=== PATIENT | female | born 1960 | race Caucasian/White ===

== ENCOUNTER 2023-09-28 12:07 | Outpatient (REF) | payer MEDICARE, SELFPAY ==
[2023-09-28 12:35] LABS: Influenza Virus A Antigen Negative; Influenza Virus B Antigen Negative; Internal Control Within Normal Limits; SARS-CoV-2 Ag NEGATIVE (NEGATIVE)
[2023-09-29 08:30] LABS: SARS-CoV-2 NAA NOT DETECTED (NOT DETECTE)
== END 2023-09-28 12:08 | disposition home or self-care (01) ==
LOC: LAB 12:07
PROVIDERS: PCP Nurse Practitioner Family; Visit Provider Nurse Practitioner Family
DX: J06.9 Acute upper respiratory infection, unspecified (principal)
CPT/HCPCS: 87635; 87804; 87811

== ENCOUNTER 2023-12-20 09:49 | Outpatient (OUT) | payer MEDICARE, SELFPAY ==
--- NOTE | 2023-12-20 09:52 | MM_ITS ---
Patient Name: ELSA CATALAN MR#: [id number] : 1960 Exam Date: 12/20/2023 Ordering Doctor: TAWANDA COOK CNP RADIOLOGY REPORT PROCEDURE: MM TOMOSYNTHESIS SCREENING BI COMPARISON: MG MAMM ALICIA DIAG W CAD, 04/30/2014. MG MAMM SCREEN 3D ALICIA CAD, 12/07/2022. INDICATIONS: screening Calculator Name NCI Breast Cancer Risk Assessment Tool 5 Year Breast Cancer Risk 1.90% Lifetime Breast Cancer Risk 7.90% Personal Breast Cancer No Personal Ovarian Cancer No Treatments None Family Cancers None LOCATION: [facility] BREAST COMPOSITION: Heterogeneously dense,which may obscure small masses. FINDINGS: DIAGNOSTIC CATEGORY 2--BENIGN FINDING. NO CHANGE FROM COMPARISON. Scattered benign-appearing nodules are present. Scattered benign-appearing calcifications are present. Scattered benign-appearing lymph nodes are present. RIGHT BREAST: No significant suspicious finding. LEFT BREAST: No significant suspicious finding. RECOMMENDATIONS: ROUTINE MAMMOGRAM AND CLINICAL EVALUATION IN 12 MONTHS. PLEASE NOTE: A NORMAL MAMMOGRAM DOES NOT EXCLUDE THE POSSIBILITY OF BREAST CANCER. A CLINICALLY SUSPICIOUS PALPABLE LUMP SHOULD BE BIOPSIED. Dictated by: Farshad Hayes MD on 12/20/2023 at 12:19 Approved by: Farshad Hayes MD on 12/20/2023 at 12:22
--- OUTSIDE RECORDS SUMMARY | 2023-12-20 10:12 | XMS_ITS | CCD ---
Author Organization [facility] Care Team Providers Care Metrology Technician Name Role Phone PEPE CARTER Unavailable Unavailable Ilo, Delroy Primary Care Provider Unavailabl e Sveta Silva Unavailable [phone] Pretty Fermin Primary Care Provider AUNDREA CLIFFORD Admitting Unavailable MENDOZAROSE Attending Unavailable ILO, DELROY Primary Care Unavailable MENDOZAROSE Admitting Unavailable ROSE MENDOZA Attending Unavailable ILO, DELROY Primary Care Unavailable ROSE MENDOZA Admitting Unavailable MENDOZAROSE Attending Unavailable HOY, PRETTY Primary Care Unavailable DEREK ZABALA Attending Unavailable HOY, PRETTY Primary Care Unavailable AYDE ALMANZAR Admitting Unavailabl e AYDE ALMANZAR Attending Unavailabl e ILO, DELROY Primary Care Unavailable [facility] Consulting AYDE Daniels Admitting Unavailabl e HOY, PRETTY Primary Care Unavailable LEATHA GOMEZ Attending Unavailable HOY, PRETTY Primary Care Unavailable [facility] Consulting ROCHELLE Schwartz Admitting Unavailable NUSRAT MARX Attending Unavailable AYDE ALMANZAR Admitting Unavailabl e AYDE ALMANZAR Attending Unavailabl e JENY, PRETTY Primary Care Unavailable AYDE ALMANZAR Admitting Unavailabl e CANDELARIO CURTIS Attending Unavailable JENY, PRETTY Primary Care Unavailable AYDE ALMANZAR Admitting Unavailabl e AYDE ALMANZAR Referring Unavailabl e JENY, PRETTY Primary Care Unavailable Ayde Almanzar Unavailable [phone] Pretty Fermin Primary Care Provider Ayde Almanzar Unavailable [phone] Christ, Leatha Asim Unavailable [phone] Pretty Fermin MD Primary Care Provider [phone] Pretty Fermin MD Primary Care Provider [phone] JOYCE, TAWANDA Consulting Unavailable JOYCE, TAWANDA Primary Care Unavailable JOYCE, TAWANDA Attending Unavailable JOYCE, TAWANDA Admitting Unavailable DR LATASHA HAYES V Consulting Unavailable JOYCE, TAWANDA Primary Care Unavailable JOYCE, TAWANDA Attending Unavailable JOYCE, TAWANDA Admitting Unavailable JOYCE, TAWANDA Consulting Unavailable DR LATASHA HAYES V Consulting Unavailable JOYCE, TAWANDA Primary Care Unavailable JOYCE, TAWANDA Attending Unavailable JOYCE, TAWANDA Admitting Unavailable JOYCE, TAWANDA Consulting Unavailable JOYCE, TAWANDA Consulting Unavailable JOYCE, TAWANDA Primary Care Unavailable JOYCE, TAWANDA Attending Unavailable JOYCE, TAWANDA Admitting Unavailable JOYCE, TAWANDA Consulting Unavailable JOYCE, TAWANDA Primary Care Unavailable JOYCE, TAWANDA Attending Unavailable JOYCE, TAWANDA Admitting Unavailable LATASHA HOWELL Unavailable DR STU SAMUEL Consulting Unavailable JOYCE, TAWANDA Primary Care Unavailable JOYCE, TAWANDA Attending Unavailable JOYCE, TAWANDA Admitting Unavailable JOYCE, TAWANDA Consulting Unavailable JOYCE, TAWANDA Consulting Unavailable JOYCE, TAWANDA Primary Care Unavailable JOYCE, TAWANDA Attending Unavailable JOYCE, TAWANDA Admitting Unavailable PA, AHMAD Consulting Unavailable JOYCE, TAWANDA Primary Care Unavailable PA, AHMAD Attending Unavailable PA, AHMAD Admitting Unavailable DR LATASHA HAYES V Consulting Unavailable JOYCE, TAWANDA Primary Care Unavailable SAMSA ., AIDAN Attending Unavailable SAMSA ., AIDAN Admitting Unavailable SAMSA ., AIDAN Consulting Unavailable Pretty Fermin MD Primary Care Provider [phone] PEPE CARTER Referring Unavailable JENY, PRETTY M Primary Care Unavailable HREO CARTERT Referring Unavailable HOY, PRETTY M Primary Care Unavailable HERO CARTERT Attending Unavailable HOY, PRETTY M Primary Care Unavailable HREO CARTERT Referring Unavailable HOY, PRETTY M Primary Care Unavailable HERO CARTERT Attending Unavailable JENY, PRETTY M Primary Care Unavailable Allergies Allergy Classification Reported Allergen(s) Allergy Type Date of Onset Reaction(s) Facility (15 sources) indomethacin; Translations: [INDOMETHACIN] Drug Allergy 3 [facility] (14 sources) penicillin; Translations: [PENICILLIN G] Drug Allergy 3 [facility] (14 sources) propoxyphene; Translations: [PROPOXYPHENE] Drug Allergy 3 [facility] (2 sources) OTHER; Translations: [OTHER] Propensity to adverse reactions (disorder) 3 [facility] (12 sources) Penicillins; Translations: [Penicillins] Propensity to adverse reactions to drug 3 Rash [facility] (10 sources) Lisinopril; Translations: [Unknown] Drug Allergy 9 Other (See Comments) [facility] (6 sources) Adhesive Tape-Silicones Propensity to adverse reactions to drug 9 [facility] (17 sources) Ciprofloxacin; Translations: [CIPROFLOXACIN] Drug Allergy 7 [facility] (12 sources) Anesthetics [Other] Propensity to adverse reactions 3 [facility] (1 source) Acetaminophen / oxyCODONE Drug Allergy 1 [facility] (1 source) Ciprofloxacin Drug Allergy 7 [facility] (1 source) Latex Drug allergy (disorder) 0 [facility] Medications Current Medications Medication Drug Class(es) Dates Sig (Normalized) Sig (Original) acetaminophen 325 mg oral tablet (3 sources) Start: 10-14-2019 End: 10-24-2019 take 2 tablets by mouth every six hours as needed acetaminophen (Tylenol) 325 MG tablet Take 2 (two) tablets (650 mg total) by mouth every 6 (six) hours as needed for pain . 30 tablet 0 10/14/2019 10/24/2019 Active Start: 10-12-2019 End: 10-14-2019 take 1 tablet by mouth every four hours as needed 650 mg, Oral, Every 4 hours PRN, mild pain, fever 100.4 F or greater, headaches, Starting 10/12/19 at 1609 Start: 09-04-2019 End: 09-05-2019 take 650 mg by mouth every four hours 650 mg, Oral, Every 4 hours while awake, First dose on Mon09/04/19 at 1800 acetaminophen 325 mg / oxyCODONE hydrochloride 5 mg oral tablet (4 sources) Opioid Agonist Start: 04-08-2020 End: 04-15-2020 take 1 tablet by mouth once as needed for pain, then take 2 tablets by mouth every four hours as needed for pain oxyCODONE-acetaminophen (PERCOCET) 5-325 mg per tablet Indications: Post-op pain Take 1 (one) tablet to 2 (two) tablets by mouth every 4 (four) hours as needed for pain . 40 tablet 0 04/08/2020 04/15/2020 Active Start: 09-04-2019 End: 09-11-2019 take 1 tablet by mouth once as needed for pain, then take 2 tablets by mouth every four hours as needed for pain oxyCODONE-acetaminophen (PERCOCET) 5-325 mg per tablet Indications: Post-operative pain Take 1 (one) tablet to 2 (two) tablets by mouth every 4 (four) hours as needed for pain . 50 tablet 0 09/04/2019 09/11/2019 Active Start: 02-27-2019 End: 03-06-2019 take 1 tablet by mouth once as needed for pain, then take 2 tablets by mouth every four hours as needed for pain oxyCODONE-acetaminophen (PERCOCET) 5-325 mg per tablet Indications: Elbow injury, unspecified laterality, sequela Take 1 (one) tablet to 2 (two) tablets by mouth every 4 (four) hours as needed for pain . 60 tablet 0 02/27/2019 03/06/2019 Active Start: 02-27-2019 End: 02-28-2019 take 1-2 tablets by mouth every four hours as needed 1-2 tablet, Oral, Every 4 hours PRN, moderate to severe pain, Starting 02/27/19 at 1238, For 3 days [] Initiate with 1 tablet oral every 4 hours prn moderate to severe pain. [] For unrelieved pain, may repeat one tablet oral dose within 60 minutes of initial dose. [] If pain is RELIEVED after repeat dose, change to two tablets of 5/325 mg oral every 4 hours prn moderate to severe pain. acetic acid 2.5 mg/ml irrigation solution (2 sources) Start: 10-08-2019 End: 10-29-2019 acetic acid 0.25 % irrigation Apply topically 3 (three) times a day for 21 days . 500 mL 11 10/08/2019 10/29/2019 Active 0.8 ml adalimumab 50 mg/ml prefilled syringe (7 sources) Tumor Necrosis Factor Miguel Start: 09-04-2019 inject 0.8 mL by subcutaneous injection once adalimumab (HUMIRA) 40 mg/0.8 mL syringe Indications: rheumatoid arthritis Inject 0.8 mL (40 mg total) under the skin every 14 (fourteen) days . Reasons: rheumatoid arthritis. 2 each 0 09/04/2019 Active End: 09-04-2019 adalimumab (HUMIRA) 40 mg/0. 8 mL syringe Indications: rheumatoid arthritis Inject 40 mg under the skin every 14 (fourteen) days Reasons: rheumatoid arthritis. 0 09/04/2019 Discontinued (Reorder) cholecalciferol, vitamin D3, (VITAMIN D3 ORAL) (11 sources) take 1 capsule by mouth once daily in the morning cholecalciferol, vitamin D3, (VITAMIN D3 ORAL) Indications: Supp Take 1 capsule by mouth every morning Reasons: Supp. 0 Active cholecalciferol, vitamin D3, (VITAMIN D3 ORAL) Indications: Supp Take by mouth every morning Reasons: Supp. 0 Active ondansetron 4 mg disintegrating oral tablet (9 sources) Serotonin-3 Receptor Antagonist Start: 04-08-2020 End: 04-15-2020 take 1 tablet by mouth every six hours as needed ondansetron (Zofran ODT) 4 MG disintegrating tablet Dissolve 1 (one) tablet (4 mg total) on top of tongue every 6 (six) hours as needed for nausea . 15 tablet 0 04/08/2020 Active Start: 04-08-2020 End: 04-08-2020 4 mg, Intravenous, Every 15 min PRN, nausea, vomiting, Starting Mon04/08/20 at 1414, For 2 doses, PACU (only) Do not give more than 2 doses. Administer first as needed for nausea/vomiting, or as directed by anesthesia Start: 10-12-2019 End: 10-14-2019 ondansetron (ZOFRAN) injecti on 4 mg Start: 09-04-2019 End: 09-04-2019 4 mg, Intravenous, Every 15 min PRN, nausea, vomiting, Starting Mon09/04/19 at 1400, For 2 doses, PACU (only) Do not give more than 2 doses. Administer first as needed for nausea/vomiting, or as directed by anesthesia raNITIdine 75 mg oral tablet (1 source) Histamine-2 Receptor Antagonist ranitidine (ZANTAC) 75 MG tablet Indications: GERD Take 75 mg by mouth as needed for heartburn Reasons: GERD. 0 Active sulfamethoxazole 800 mg / trimethoprim 160 mg oral tablet (2 sources) Dihydrofolate Reductase Inhibitor Antibacterial, Sulfonamide Antimicrobial Start: 04-08-20 End: 04-18-20 20 take 1 tablet by mouth twice daily sulfamethoxazole-tr imethoprim (BACTRIM DS,SEPTRA DS) 800-160 mg per tablet Take 1 (one) tablet by mouth 2 (two) times a day for 10 days . 20 tablet 0 04/08/2020 04/18/2020 Active Start: 10-14-2019 End: 10-21-2019 take 1 tablet by mouth twice daily sulfamethoxazole-trimethoprim (BACTRIM DS,SEPTRA DS) 800-160 mg per tablet Take 1 (one) tablet by mouth 2 (two) times a day for 7 days . 14 tablet 0 10/14/2019 10/21/2019 Active Completed/Discontinued Medications Medication Drug Class(es) Dates Sig (Normalized) Sig (Original) [id number] 200 actuat albuterol 0.09 mg/actuat metered dose inhaler (14 sources) beta2-Adrenergic Agonist Start: 07-02-2020 take 2 puff(s) by mouth every four hours VENTOLIN HFA 90 mcg/actuation inhaler inhale 2 puffs by mouth and INTO THE LUNGS every 4 hours if needed 0 07/02/2020 Active Start: 09-04-2019 End: 09-05-2019 albuterol inhaler 2 puff Start: 09-04-2019 End: 09-04-2019 take 2 puff(s) by inhalation once 2 puff, Inhalation, Once (RT), 09/04/19 at 1000, For 1 dose, Pre-Procedure SPACER REQUIRED FOR ADMINISTRATION Comment on above: inhale 2 puffs by mo uth and INTO THE LUNGS every 4 hours if needed aluminum hydroxide 40 mg/ml / magnesium hydroxide 40 mg/ml / simethicone 4 mg/ml oral suspension (1 source) Start: 9 End: 9 take 30 mL by mouth every four hours as needed 30 mL, Oral, Every 4 hours PRN, indigestion, Starting Mon02/27/19 at 1238 aspirin 81 mg delayed release oral tablet (7 sources) Platelet Aggregation Inhibitor, Nonsteroidal Anti-inflammatory Drug End: 9 take 1 tablet by mouth once daily in the morning aspirin 81 MG EC tablet Indications: myocardial infarction prevention Take 81 mg by mouth every morning Reasons: treatment to prevent a heart attack. 0 08/23/2019 Discontinued (Therapy completed) aspirin/acetaminophe n/caffeine (EXCEDRIN EXTRA STRENGTH ORAL) (3 sources) End: 9 aspirin/acetaminophe n/caffeine (EXCEDRIN EXTRA STRENGTH ORAL) Indications: Pain Take by mouth as needed Reasons: Pain. 0 02/28/2019 Discontinued (Stop Taking at Discharge) aspirin/acetamin ophen/caffeine (EXCEDRIN EXTRA STRENGTH ORAL) Indications: Pain Take by mouth as needed Reasons: Pain. 0 Active bisacodyl 10 mg rectal suppository (2 sources) Stimulant Laxative Start: 09-04-2019 End: 09-05-2019 take 10 mg rectal route once daily as needed for constipation 10 mg, Rectal, Daily PRN, constipation, Starting Mon09/04/19 at 1613 If no bowel movement by POD #2. Start: 02-27-2019 End: 02-28-2019 take 10 mg rectal route once daily as needed for constipation 10 mg, Rectal, Daily PRN, constipation, Starting Mon02/27/19 at 1238 If no bowel movement by POD #2. bupivacaine liposome (PF) (EXPAREL) 133 mg/10 mL + 0.5% bupivacaine (PF) (MARCAINE) 10 mL (20 mL TOTAL) (2 sources) Start: 09-04-2019 End: 09-04-2019 bupivacaine liposome (PF) (EXPAREL) 133 mg/10 mL + 0.5% bupivacaine (PF) (MARCAINE) 10 mL (20 mL TOTAL) Start: 02-27-2019 End: 02-27-2019 bupivacaine liposome (PF) (E XPAREL) 133 mg/10 mL + 0.5% bupivacaine (PF) (MARCAINE) 10 mL (20 mL TOTAL) calcium chloride 0.0014 meq/ml / potassium chloride 0.004 meq/ml / sodium chloride 0.103 meq/ml / sodium lactate 0.028 meq/ml injectable solution (7 sources) Start: 04-08-2020 End: 04-08-2020 take 75 mL intravenous route every hour 75 mL/hr, Intravenous, Continuous, Starting Mon04/08/20 at 1500, PACU (only) Start: 04-08-2020 End: 04-08-2020 lactated Ringers infusion Start: 10-13-2019 End: 10-14-2019 take 50 mL intravenous route every hour 50 mL/hr, Intravenous, Continuous, Starting Mon10/13/19 at 0945, PACU (only) Start: 09-04-2019 End: 09-05-2019 lactated Ringers infusion Start: 02-27-2019 End: 02-28-2019 take 100 mL intravenous route every hour 100 mL/hr, Intravenous, Continuous, Starting Mon02/27/19 at 1215, PACU (only) Start: 02-27-2019 End: 02-27-2019 lactated Ringers infusion ceFAZolin 1000 mg injection (1 source) Cephalosporin Antibacterial Start: 10-12-2019 End: 10-12-2019 ceFAZolin (ANCEF) IVPB 1 g (premix) cholecalciferol 0.125 mg oral tablet (12 sources) Vitamin D Start: 07-02-2013 take 1 tablet by mouth once daily Cholecalciferol, Vitamin D3, 5,000 unit Tab Take 1 tablet by mouth once daily. 0 07/02/2013 Active Comment on above: Take 1 tablet by meera once daily. clindamycin 300 mg oral capsule (6 sources) Lincosamide Antibacterial Start: 04-08-2020 End: 04-08-2020 take 1 capsule by mouth three times daily clindamycin (CLEOCIN) 300 MG capsule Take 1 (one) capsule (300 mg total) by mouth 3 (three) times a day for 3 days . 9 capsule 0 04/08/2020 04/08/2020 Discontinued (Stop Taking at Discharge) Start: 10-13-2019 End: 10-13-2019 take 900 mg intravenous route every eight hours clindamycin (CLEOCIN) IVPB 900 mg (premix) Start: 09-04-2019 End: 09-05-2019 take 600 mg intravenous route every eight hours 600 mg, Intravenous, at 100 mL/hr, Every 8 hours, First dose on Mon09/04/19 at 1930, For 2 doses Starting 8 hours after pre-procedure dose x 2 doses. Indication (POST PROCEDURE): Ortho Start: 09-04-2019 End: 09-07-2019 take 1 capsule by mouth three times daily clindamycin (CLEOCIN) 300 MG capsule Take 1 (one) capsule (300 mg total) by mouth 3 (three) times a day for 3 days . 9 capsule 0 09/04/2019 09/07/2019 Start: 02-27-2019 End: 02-28-2019 take 900 mg intravenous route every eight hours 900 mg, Intravenous, at 100 mL/hr, Every 8 hours, First dose on Mon02/27/19 at 1700, For 2 doses Starting 8 hours after pre-procedure dose x 2 doses. Indication (POST PROCEDURE): Ortho Start: 02-27-2019 End: 03-02-2019 take 1 capsule by mouth three times daily clindamycin (CLEOCIN) 300 MG capsule Take 1 (one) capsule (300 mg total) by mouth 3 (three) times a day for 3 days . 9 capsule 0 02/27/2019 03/02/2019 Active cloNIDine hydrochloride 0.1 mg oral tablet (12 sources) Central alpha-2 Adrenergic Agonist Start: 11-19-2020 take 1 tablet by mouth twice daily cloNIDine HCl (CATAPRES) 0.1 mg tablet Take 0.1 mg by mouth twice daily. 0 11/19/2020 Active Comment on above: Take 0.1 mg by mouth twice daily. docusate sodium 100 mg oral capsule (14 sources) Start: 03-17-2021 take 1 capsule by mouth every twelve hours as needed docusate sodium (COLACE) 100 mg capsule Take 1 capsule by mouth twice daily as needed for constipation. 20 capsule 0 03/17/2021 Active Start: 04-08-2020 End: 04-18-2020 take 1 capsule by mouth twice daily docusate sodium (COLACE) 100 MG capsule Take 1 (one) capsule (100 mg total) by mouth 2 (two) times a day Purchase over the counter Do not take if you start to have diarrhea for 10 days . 20 capsule 0 04/08/2020 04/18/2020 Active Start: 10-14-2019 End: 11-03-2019 take 1 capsule by mouth twice daily docusate sodium (COLACE) 100 MG capsule Take 1 (one) capsule (100 mg total) by mouth 2 (two) times a day May be purchased over the counter Take until finished taking narcotics for 20 days . 10 capsule 0 10/14/2019 11/03/2019 Active Comment on above: Take 1 capsule by mo [facility] twice daily as needed for constipation. docusate sodium 50 mg / sennosides, detention 8.6 mg oral tablet (3 sources) Start: 0 End: 0 take 1 tablet by mouth twice daily 1 tablet, Oral, 2 times daily, First dose on 10/12/19 at 2100 NOT for abdominal surgery patients. H old for loose stools. Do Not Crush or Chew if administering orally due to bitter taste. May be crushed if given via tube. Start: 09-04-2019 End: 09-05-2019 take 1 tablet by mouth twice daily 2 tablet, Oral, 2 times daily, First dos e on 09/04/19 at 2100 NOT for abdominal surgery patients. Hold for loose stools. Do Not Crush or Chew if administering orally due to bitter taste. May be crushed if given via tube. Start: 02-27-2019 End: 02-28-2019 take 1 tablet by mouth twice daily 1 tablet, Oral, 2 times daily, First dos e on 02/27/19 at 2100 NOT for abdominal surgery patients. Hold for loose stools. Do Not Crush or Chew if administering orally due to bitter taste. May be crushed if given via tube. empagliflozin 25 mg oral tablet (18 sources) Sodium-Glucose Cotransporter 2 Inhibitor Start: 07-02-2020 take 1 tablet by mouth once daily JARDIANCE 25 mg tablet Take 25 mg by mouth once daily. 0 07/02/2020 Active [facility] in [facility], then take 2 tablets by mouth empagliflozin (Jardiance) 10 mg Tab Indications: type 2 diabetes mellitus Take 10 mg by mouth every morning Reasons: type 2 diabetes mellitus. 0 Active Comment on above: Take 25 mg by mouth once daily. 0.4 ml enoxaparin sodium 100 mg/ml prefilled syringe (1 source) Low Molecular Weight Heparin Start: 10-14-2019 End: 10-14-2019 enoxaparin (LOVENOX) syringe 40 mg 20 ml fentaNYL 0.05 mg/ml injection (4 sources) Opioid Agonist Start: 04-08-2020 End: 04-08-2020 25 mcg, Intravenous, Every 5 min PRN, Pain, Starting Mon04/08/20 at 1414, For 4 doses, PACU (only) [] Do not give more than 100 mcg while in PACU. Start: 04-08-2020 End: 04-08-2020 100 mcg, Intravenous, Once, Mon04/08/20 at 1015, For 1 dose, Pre-Procedure Pre-procedure for nerve block. May repeat in 5 minutes x 1 if sedation inadequate to perform block. Start: 09-04-2019 End: 09-04-2019 100 mcg, Intravenous, Once, 09/04/19 at 1000, For 1 dose, Pre-Procedure Pre-procedure for nerve block. May repeat in 5 minutes x 1 if sedation inadequate to perform block. Start: 02-27-2019 End: 02-27-2019 100 mcg, Intravenous, Once, Mon02/27/19 at 0645, For 1 dose, Pre-Procedure Pre-procedure for nerve block. May repeat in 5 minutes x 1 if sedation inadequate to perform block. FLUoxetine 20 mg oral capsule (12 sources) Serotonin Reuptake Inhibitor Start: 01-16-2020 take 1 capsule by mouth once daily FLUoxetine (PROZAC) 20 mg capsule Indications: Anxiety Take 1 capsule by mouth once daily. 1 capsule 1 01/16/2020 Active Comment on above: Take 1 capsule by [facility] once daily. folic acid 1 mg oral tablet (20 sources) Start: 07-26-2021 End: 08-11-2022 take 2 tablets by mouth once daily folic acid 1 mg tablet Indications: Rheumatoid arthritis of multiple sites without organ or system involvement with positive rheumatoid factor (HCC) Take 2 tablets by mouth once daily. 180 tablet 3 08/11/2022 Active Start: 10-13-2019 End: 10-14-2019 take 2 mg by mouth once daily in the morning 2 mg, Oral, Every morning, First dose on 10/13/19 at 0900 Start: 01-14-2019 take 2 tablets by mo ut once daily in the morning, then take 1 tablet by mouth folic acid (FOLVITE) 1 MG tablet Indications: Supp Take 2 mg by mouth every morning Reasons: Supp. 0 01/14/2019 Active Start: 01-14-2019 End: 02-28-2019 take 1 tablet by mouth once daily in the morning folic acid (FOLVITE) 1 MG tablet Indications: Supp Take 1 mg by mouth every morning Reasons: Supp. 0 01/14/2019 Active Comment on above: Take 2 tablets by mo ut once daily. gabapentin 300 mg oral capsule (20 sources) Anti-epileptic Agent Start: 12-22-2021 End: 04-10-2023 take 3 capsules by mouth once daily gabapentin (NEURONTIN) 300 mg capsule Indications: Fibromyalgia , Postherpetic neuralgia , Bilateral carpal tunnel syndrome TAKE 10 CAPSULES BY MOUTH DIVIDED THROUGHOUT THE DAY 270 capsule 3 04/18/2022 Active Start: 10-12-2019 End: 10-14-2019 take 900 mg by mouth three times daily 900 mg, Oral, 3 times daily, First dose on 10/12/19 at 1700 Start: 01-21-2019 take 3 capsules by [facility] three times daily gabapentin (NEURONTIN) 300 MG capsule Indications: Pain Take 900 mg by mouth 3 (three) times a day Reasons: Pain. 0 01/21/2019 Active Start: 01-21-2019 End: 09-05-2019 take 300 mg by mouth three times daily 300 mg, Oral, 3 times daily, First dose on 09/04/19 at 1630 Comment on above: Take 10caps divided throughout the day, take by mouth TAKE 10 CAPSULES BY MOUTH DIVIDED THROUGHOUT THE DAY 1 ml hydrALAZINE hydrochloride 20 mg/ml injection (2 sources) Arteriolar Vasodilator Start: 04-08-2020 End: 04-08-2020 hydrALAZINE (APRESOLINE) injection 20 mg Start: 09-04-2019 End: 09-05-2019 take 5 mg intravenous route every four hours as needed 5 mg, Intravenous, Every 4 hours PRN, SBP>170 or DBP>100, Starting Mon09/04/19 at 1637 0.5 ml HYDROmorphone hydrochloride 1 mg/ml prefilled syringe (3 sources) Opioid Agonist Start: 04-08-2020 End: 04-08-2020 0.5 mg, Intravenous, Every 5 min PRN, Pain, Starting Mon04/08/20 at 1414, For 6 doses, PACU (only) [] Give if fentanyl not effective or not ordered. [] Do not give more than 3 mg total. Start: 10-12-2019 End: 10-12-2019 HYDROmorphone (DILAUDID) inj ection 1 mg Start: 09-04-2019 End: 09-05-2019 take 0.25-0.5 mg intravenous route every three hours as needed 0.25-0.5 mg, Intravenous, Every 3 hours PRN (may repeat), moderate to severe pain, Starting Mon09/04/19 at 1613 [] Initiate with 0.25 mg IV every 3 hours prn moderate to severe pain. [] For unrelieved pain, may repeat 0.25 mg IV dose within 30 minutes of initial dose. [] If pain is RELIEVED after repeat dose, change to 0.5 mg IV every 3 hours prn moderate to severe pain. [] If pain is UNrelieved after repeat dose, or patient requires dose reduction, call physician. [] If multiple routes are ordered for pain meds, it is recommended that oral be the first choice, IV the second choice, rectal the third choice, and IM the fourth choice. HYDROmorphone (DILAUDID) 0.5 mg/mL injection 0.25-0.5 mg (1 source) Start: 02-27-2019 End: 02-28-2019 take 0.25-0.5 mg intravenous route every three hours as needed 0.25-0.5 mg, Intravenous, Every 3 hours PRN (may repeat), moderate to severe pain, Starting Mon02/27/19 at 1238 [] Initiate with 0.25 mg IV every 3 hours prn moderate to severe pain. [] For unrelieved pain, may repeat 0.25 mg IV dose within 30 minutes of initial dose. [] If pain is RELIEVED after repeat dose, change to 0.5 mg IV every 3 hours prn moderate to severe pain. [] If pain is UNrelieved after repeat dose, or patient requires dose reduction, call physician. [] May use IV for breakthrough pain or if unable to tolerate oral route. insulin glargine 100 unt/ml injectable solution (20 sources) Insulin Analog Start: 10-13-2019 End: 10-14-2019 50 Units, Subcutaneous, Nightly, First dose on Mon10/13/19 at 2100 Do not hold basal insulin without notifying physician. If patient NPO and BG < 100 before procedure, administer half of the glargine insulin (Lantus) dose; if BG is >100 administer full dose. Do not mix with other insulins in a syringe. Do NOT hold basal insulin without notifying physician Start: 10-12-2019 insulin glargi ne (LANTUS) injection 25 Units Start: 09-04-2019 End: 09-05-2019 insulin glargine (LANTUS) injection 20 Units Start: 02-27-2019 End: 02-28-2019 inject 50 [IU] by subcutaneous injection once daily 50 Units, Subcutaneous, Nightly, First dose on Mon02/27/19 at 2100 Nursing call if patient nauseated not eating regular diet, will need dose reduced Do not mix with other insulins in a syringe. Do NOT hold basal insulin without notifying physician Start: 01-21-2019 insulin glargi ne (LANTUS SOLOSTAR, BASAGLAR KWIKPEN) 100 unit/mL (3 mL) Inject 50 Units subcutaneously. 0 01/21/2019 Active Start: 01-21-2019 LANTUS SOLOSTA R U-100 INSULIN 100 unit/mL (3 mL) InPn Indications: type 2 diabetes mellitus Inject 50 Units under the skin nightly Reasons: type 2 diabetes mellitus. 0 01/21/2019 Active Start: 01-21-2019 LANTUS SOLOSTA R U-100 INSULIN 100 unit/mL (3 mL) InPn Indications: type 2 diabetes mellitus 50 Units nightly Reasons: type 2 diabetes mellitus. 0 01/21/2019 Active Start: 01-21-2019 insulin glargi ne (LANTUS SOLOSTAR, BASAGLAR KWIKPEN) 100 unit/mL (3 mL) Inject 50 Units subcutaneously. 0 01/21/2019 Active Comment on above: Inject 50 Units subc utaneously. insulin lispro 100 unt/ml injectable solution (7 sources) Insulin Analog Start: 04-08-2020 End: 04-08-2020 0-30 Units, Subcutaneous, Every 4 hours, First dose on Mon04/08/20 at 1500, PACU (only) Notify Anesthesiologist if BG is GREATER than 180 mg / dL. Prandial Insulin Dosing Method: NO Prandial Dose - Corrective Scale ONLY Corrective Insulin Regimen (select desired scale to cover BG result): Normal Sensitivity Scale For Downtime Calculator, use: Insulin SC MEALtime PREprandial Start: 10-12-2019 End: 10-14-2019 inject 1 dose by subcutaneous injection once daily 0-15 Units, Subcutaneous, At bedtime, First dose on 10/12/19 at 2100 For Nightly Insulin Dose Coverage, use: CORRECTIVE (Only) for BG greater than 300 Nightly CORRECTIVE Dose Method: Specific Corrective Dose Nightly Specific CORRECTIVE dose (units of insulin): 2 For Downtime Calculator, use: Insulin SC NIGHTtime Start: 10-12-2019 End: 10-14-2019 inject 1 dose by subcutaneous injection three times daily before mealtime 0-30 Units, Subcutaneous, 3 times daily before meals, First dose on Mon10/12/19 at 1700 Dose should be given 10-15 minutes before a meal. If poor oral intake, nausea or blood glucose value < 80 before meal, give of the dose (rounded up to nearest unit) immediately after meal completed. If patient skipping meal, hold base prandial dose and continue to use corrective insulin as ordered. Once diet resumed, total base prandial + corrective doses may be given. Prandial Insulin Dosing Method: Carb Counting Ratio 1 unit of insulin per: specified grams of carbohydrates: 25 Corrective Insulin Regimen (select desired scale to cover BG result): Normal Sensitivity Scale For Downtime Calculator, use: Insulin SC MEALtime PREprandial Start: 09-04-2019 End: 09-05-2019 inject 1 dose by subcutaneous injection once daily 0-15 Units, Subcutaneous, At bedtime, First dose on Mon09/04/19 at 2100 For Nightly Insulin Dose Coverage, use: CORRECTIVE (Only) for BG greater than 300 Nightly CORRECTIVE Dose Method: Specific Corrective Dose Nightly Specific CORRECTIVE dose (units of insulin): 2 For Downtime Calculator, use: Insulin SC NIGHTtime Start: 09-04-2019 End: 09-05-2019 inject 1 dose by subcutaneous injection three times daily before mealtime 0-30 Units, Subcutaneous, 3 times daily before meals, First dose on Mon09/04/19 at 1700 Dose should be given 10-15 minutes before a meal. If poor oral intake, nausea or blood glucose value < 80 before meal, give of the dose (rounded up to nearest unit) immediately after meal completed. If patient skipping meal, hold base prandial dose and continue to use corrective insulin as ordered. Once diet resumed, total base prandial + corrective doses may be given. Prandial Insulin Dosing Method: NO Prandial Dose - Corrective Scale ONLY Corrective Insulin Regimen (select desired scale to cover BG result): Conservative Scale For Downtime Calculator, use: Insulin SC MEALtime PREprandial Start: 02-27-2019 End: 02-28-2019 insulin lispro (HumaLOG) inj ection 0-5 Units insulin aspart, human 100 unt/ml injectable solution (18 sources) Insulin Analog Start: 01-21-2019 insulin aspart U-100 (NOVOLOG) 100 unit/mL Inject subcutaneously. 0 01/21/2019 Active insulin aspart U -100 (NovoLOG) 100 unit/mL injection Indications: type 2 diabetes mellitus , Sliding scale Inject under the skin 3 (three) times a day before meals Reasons: type 2 diabetes mellitus, Sliding scale. 0 Active Comment on above: Inject subcutaneousl y. irbesartan 150 mg oral tablet (18 sources) Angiotensin 2 Receptor Miguel Start: 06-10-20 take 1 tablet by mouth once daily irbesartan (AVAPRO) 150 mg tablet Take 150 mg by mouth once daily. 0 06/10/2020 Active Comment on above: Take 150 mg by mouth once daily. 4 ml labetalol hydrochloride 5 mg/ml cartridge (4 sources) beta-Adrenergic Miguel Start: 04-08-20 End: 04-08-20 20 5 mg, Intravenous, Every 5 min PRN, SBP greater than 160 or DBP greater than 90, Starting Mon04/08/20 at 1414, For 4 doses, PACU (only) [] Do not give more than 20 mg total. [] Hold for HR less than 50. Start: 10-13-2019 End: 10-13-2019 5 mg, Intravenous, Every 5 m in PRN, SBP greater than 160 or DBP greater than 90, Starting 10/13/19 at 1002, For 4 doses, PACU (only) [] Do not give more than 20 mg total. [] Hold for HR less than 50. Start: 09-04-2019 End: 09-04-2019 5 mg, Intravenous, Every 5 m in PRN, SBP greater than 160 or DBP greater than 90, Starting 09/04/19 at 1400, For 4 doses, PACU (only) [] Do not give more than 20 mg total. [] Hold for HR less than 50. Start: 02-27-2019 End: 02-28-2019 take 10 mg intravenous route every six hours as needed labetalol (NORMODYNE) injection 10 mg leflunomide 20 mg oral tablet (20 sources) Antirheumatic Agent Start: 02-14-2023 take 1 tablet by mouth once daily at mealtime leflunomide (ARAVA) 20 mg tablet Indications: Rheumatoid arthritis of multiple sites without organ or system involvement with positive rheumatoid factor (HCC) Take 1tab daily by mouth with food. Hold in on antibiotics or ill. 90 tablet 3 02/14/2023 Active Start: 07-26-2021 End: 08-11-2022 take 1 tablet by mouth once daily at mealtime leflunomide (ARAVA) 20 mg tablet Indications: Rheumatoid arthritis of multiple sites without organ or system involvement with positive rheumatoid factor (HCC) Take 1tab daily by mouth with food. Hold in on antibiotics or ill. 90 tablet 3 08/11/2022 Active Start: 10-13-2019 End: 10-14-2019 take 20 mg by mouth once daily in the morning 20 mg, Oral, Every morning, First dose on 10/13/19 at 0900 Hazardous medication. Use safe handling precautions. Do not crush or chew. Start: 09-04-2019 End: 09-04-2019 take 1 tablet by mouth once daily in the morning leflunomide (ARAVA) 20 MG tablet Indications: rheumatoid arthritis Take 1 (one) tablet (20 mg total) by mouth every morning . Reasons: rheumatoid arthritis. 0 09/04/2019 Active Start: 02-28-2019 End: 02-28-2019 take 20 mg by mouth once daily in the morning 20 mg, Oral, Every morning, First dose on [place] 02/28/19 at 0900 Hazardous medication. Use safe handling precautions. Do not crush or chew. take 1 tablet by meera th once daily in the morning leflunomide (ARAVA) 20 MG tablet Indications: rheumatoid arthritis Take 20 mg by mouth every morning Reasons: rheumatoid arthritis. 0 Active Comment on above: Take 1tab daily by m outh with food. Hold in on antibiotics or ill. levothyroxine sodium 0.05 mg oral tablet (20 sources) l-Thyroxine Start: 07-02-20 take 1 tablet by mouth once daily levothyroxine (SYNTHROID) 50 mcg tablet take 1 tablet by mouth once daily ALONG WITH 200 MG TABLET FOR TOTAL OF 250 MG 0 07/02/2020 Active Start: 10-13-2019 End: 10-14-2019 take 200 ug by mouth once daily in the morning 200 mcg, Oral, Every morning, First dose on [place] 10/13/19 at 0900 For patients on continuous tube feed: Hold TF from 1 hr before until 1 hr after each dose. TF rate may need adjustment to meet caloric needs. Start: 09-05-2019 End: 09-05-2019 take 200 ug by mouth once daily in the morning 200 mcg, Oral, Every morning, First dose on [place] 09/05/19 at 0900 For patients on continuous tube feed: Hold TF from 1 hr before until 1 hr after each dose. TF rate may need adjustment to meet caloric needs. Start: 02-28-2019 End: 02-28-2019 take 175 ug by mouth once daily in the morning 175 mcg, Oral, Every morning, First dose on [place] 02/28/19 at 0900 For patients on continuous tube feed: Hold TF from 1 hr before until 1 hr after each dose. TF rate may need adjustment to meet caloric needs. Start: 01-21-2019 SYNTHROID 175 mcg tablet Indications: hypothyroidism Take 200 mcg by mouth every morning Reasons: a condition with low thyroid hormone levels. 0 01/21/2019 Active Start: 01-21-2019 take 1 tablet by meera th once daily in the morning SYNTHROID 175 mcg tablet Indications: hypothyroidism Take 175 mcg by mouth every morning Reasons: hypothyroidism. 0 01/21/2019 Active Start: 01-21-2019 take 1 tablet by meera th once daily levothyroxine (SYNTHROID) 200 mcg tablet Take 200 mcg by mouth once daily. 0 07/02/2020 Active Comment on above: take 1 tablet by meera th once daily ALONG WITH 200 MG TABLET FOR TOTAL OF 250 MG Take 200 mcg by mout h once daily. lidocaine 0.05 mg/mg medicated patch (20 sources) Antiarrhythmic, Amide Local Anesthetic Start: apply 1 dose transdermal route once daily lidocaine (LIDODERM) 5 % apply 1 patch to the aRM once daily IN THE AFTERNOON 0 11/19/2020 Active Start: 04-08-2020 End: 04-08-2020 1 mL, Other, Once, Mon 0 at 1015, For 1 dose, Pre- Procedure for anesthesia block administration Start: 10-08-2019 lidocaine (LMX ) 4 % cream 1 application Start: 09-04-2019 End: 09-04-2019 5 mL, Other, Once, Mon at 1000, For 1 dose, Pre- Procedure for anesthesia block administration Start: 04-23-2019 lidocaine (XYL OCAINE) 4 % (40 mg/mL) external solution Start: 02-27-2019 End: 02-27-2019 5 mL, Other, Once, Mon at 0645, For 1 dose, Pre- Procedure [] for anesthesia block administration Comment on above: apply 1 patch to the aRM once daily IN THE AFTERNOON lisinopril 20 mg oral tablet (8 sources) Angiotensin Converting Enzyme Inhibitor Start: 01-22-20 End: 08-23-20 take 1 tablet by mouth once daily in the morning lisinopril (PRINIVIL,ZESTRIL) 20 MG tablet Indications: hypertension Take 20 mg by mouth every morning Reasons: high blood pressure. 0 01/21/2019 08/23/2019 Discontinued (Therapy completed) magnesium hydroxide 80 mg/ml oral suspension (2 sources) Start: 09-04-20 End: 09-05-20 take 2400 mg by mouth once daily as needed for constipation 2,400 mg (30 mL), Oral, Daily PRN, constipation, contipation, Starting Mon09/04/19 at 1613 Start: 02-27-2019 End: 02-28-2019 take 2400 mg by mouth once daily as needed for constipation 2,400 mg (30 mL), Oral, Daily PRN, constipation, contipation, Starting Mon02/27/19 at 1238 Meperidine (1 source) Opioid Agonist Start: 04-08-2020 End: 04-08-2020 12.5 mg, Intravenous, Every 5 min PRN, shivering, Starting Mon04/08/20 at 1414, For 2 doses, PACU (only) Do not give more than 25 mg total. RESTRICTED to use in rigors OR pain management in patients with a documented opioid allergy. Please select this medication s indication. Rigors metFORMIN hydrochloride 1000 mg oral tablet (7 sources) Biguanide Start: 01-02-2019 End: 08-23-2019 take 2 tablets by mouth twice daily at mealtime metFORMIN (GLUCOPHAGE) 1000 MG tablet Indications: type 2 diabetes mellitus Take 1,000 mg by mouth 2 (two) times a day with meals Reasons: type 2 diabetes mellitus. 0 01/02/2019 08/23/2019 Discontinued (Therapy completed) methocarbamol 750 mg oral tablet (2 sources) Muscle Relaxant Start: 03-17-2021 End: 12-30-2021 take 1 tablet by mouth four times daily as needed for pain methocarbamol (ROBAXIN-750) 750 mg tablet Take 1 tablet by mouth four times daily as needed (muscle spasm/pain). 80 tablet 0 03/17/2021 12/30/2021 Discontinued (Course of therapy completed) Comment on above: Take 1 tablet by meera four times daily as needed (muscle spasm/pain). methotrexate 2.5 mg oral tablet (20 sources) Folate Analog Metabolic Inhibitor Start: 03-13-2023 methotrexate 2.5 mg tablet Indications: Rheumatoid arthritis of multiple sites without organ or system involvement with positive rheumatoid factor (HCC) TAKE 10 TABS ONCE A WEEK with food. No alcohol. Hold if on antibiotics or ill. Hold 1-2weeks after vaccines. 50 tablet 3 03/13/2023 Active Start: 02-20-2023 inject 1 mL by subcu taneous injection every week methotrexate sodium 25 mg/mL soln Indications: Rheumatoid arthritis of multiple sites without organ or system involvement with positive rheumatoid factor (HCC) , Elevated sed rate Sq 1ml injection once a week. No alcohol. Hold if on antibiotics or ill. 25 mL 3 02/20/2023 Active Start: 09-21-2021 End: 08-11-2022 inject 1 mL by subcutaneous injection every week methotrexate sodium 25 mg/mL soln Indications: Rheumatoid arthritis of multiple sites without organ or system involvement with positive rheumatoid factor (HCC) , Elevated sed rate Sq 1ml injection once a week. No alcohol. Hold if on antibiotics or ill. 25 mL 3 08/11/2022 Active Start: 09-04-2019 methotrexate 2 5 mg/mL injection Indications: rheumatoid arthritis , Monday 2 mL (50 mg total) once a week . Reasons: rheumatoid arthritis, Monday. 10 mL 0 09/04/2019 Active Start: 01-14-2019 End: 09-04-2019 methotrexate 25 mg/mL inject ion Indications: rheumatoid arthritis Inject 50 mg into the shoulder, thigh, or buttocks once a week Monday Reasons: rheumatoid arthritis. 10 mL 0 09/04/2019 Active Comment on above: Sq 1ml injection onc e a week. No alcohol. Hold if on antibiotics or ill. TAKE 10 TABS ONCE A WEEK with food. No alcohol. Hold if on antibiotics or ill. Hold 1-2weeks after vaccines. 2 ml metoclopramide 5 mg/ml injection (3 sources) Dopamine-2 Receptor Antagonist Start: End: take 10 mg intravenous route every twenty-four hours as needed metoclopramide (REGLAN) injection 10 mg Start: 10-12-2019 End: 10-14-2019 take 5 mg intravenous route every six hours as needed metoclopramide (REGLAN) injection 5 mg Start: 09-04-2019 End: 09-04-2019 take 10 mg intravenous route every twenty-four hours as needed 10 mg, Intravenous, Once as needed, nausea, vomiting, Starting Mon09/04/19 at 1400, For 1 dose, PACU (only) Administer if ondansetron (Zofran) and promethazine (Phenergan) ineffective/not ordered, or as directed by anesthesia, as needed for nausea/vomiting 24 hr metoprolol succinate 25 mg extended release oral tablet (20 sources) beta-Adrenergic Miguel Start: 10-19-2020 take 1 tablet by mouth once daily metoprolol succinate ER (TOPROL XL) 25 mg 24 hr tablet Take 25 mg by mouth once daily. 0 10/19/2020 Active Start: 04-08-2020 End: 04-08-2020 metoprolol (LOPRESSOR) injec tion 5 mg Start: 01-21-2019 End: 10-14-2019 take 1 tablet by mouth once daily in the morning TOPROL XL 25 mg 24 hr tablet Indications: hypertension Take 25 mg by mouth every morning Reasons: high blood pressure. 0 01/21/2019 Active Comment on above: Take 25 mg by mouth once daily. 5 ml midazolam 1 mg/ml injection (3 sources) Benzodiazepine Start: 04-08-2020 End: 04-08-2020 2 mg, Intravenous, Once, Mon04/08/20 at 1015, For 1 dose, Pre-Procedure Pre-proced ure for nerve block. May repeat in 5 minutes x 1 if sedation inadequate to perform block. Start: 09-04-2019 End: 09-04-2019 2 mg, Intravenous, Once, Mon09/04/19 at 1000, For 1 dose, Pre-Procedure Pre-procedure for nerve block. May repeat in 5 minutes x 1 if sedation inadequate to perform block. Start: 02-27-2019 End: 02-27-2019 2 mg, Intravenous, Once, 02/27/19 at 0645, For 1 dose, Pre-Procedure Pre-procedure for nerve block. May repeat in 5 minutes x 1 if sedation inadequate to perform block. naloxone (NARCAN) injection 0.1 mg (5 sources) Start: 04-08-2020 End: 04-08-2020 naloxone (NARCAN) injection 0.1 mg Start: 04-08-2020 End: 04-08-2020 naloxone (NARCAN) injection 0.1 mg Start: 10-12-2019 End: 10-14-2019 naloxone (NARCAN) injection 0.1 mg Start: 09-04-2019 End: 09-05-2019 naloxone (NARCAN) injection 0.1 mg Start: 02-27-2019 End: 02-28-2019 naloxone (NARCAN) injection 0.1 mg ondansetron (ZOFRAN-ODT) disintegrating tablet 4 mg (2 sources) Start: 09-04-2019 End: 09-05-2019 take 1 tablet by mouth every six hours as needed ondansetron (ZOFRAN-ODT) disintegrating tablet 4 mg Start: 02-27-2019 End: 02-28-2019 take 1 tablet by mouth every six hours as needed ondansetron (ZOFRAN-ODT) disintegrating tablet 4 mg oxyCODONE hydrochloride 5 mg oral tablet (8 sources) Opioid Agonist Start: 04-08-2020 End: 04-08-2020 take 1 tablet by mouth every twenty-four hours as needed 5 mg, Oral, Once as needed, moderate to severe pain, Pain, Starting 04/08/20 at 1414, For 1 dose, PACU (only) While in PACU when tolerating orals. Use oral route first, if tolerated. Start: 10-13-2019 End: 10-13-2019 take 1 tablet by mouth every twenty-four hours as needed 5 mg, Oral, Once as needed, moderate to severe pain, Pain, Starting 10/13/19 at 1002, For 1 dose, PACU (only) While in PACU when tolerating orals. Use oral route first, if tolerated. Start: 10-12-2019 End: 10-21-2019 oxyCODONE (ROXICODONE) 5 MG immediate release tablet Indications: Non-healing wound of upper extremity, left, initial encounter Take 1 (one) tablet to 2 (two) tablets (5-10 mg total) by mouth every 4 (four) hours as needed for pain (Days supply per fill: 7) . 60 tablet 0 10/14/2019 10/21/2019 Active Start: 09-05-2019 End: 09-06-2019 take 1 tablet by mouth once oxyCODONE (OXYCONTIN) 10 m g 12 hr tablet Indications: Elbow pain, unspecified laterality Take 1 (one) tablet (10 mg total) by mouth every 12 (twelve) hours for 2 doses . 2 tablet 0 09/05/2019 09/06/2019 Start: 09-04-2019 End: 09-05-2019 take 10 mg by mouth every twelve hours 10 mg, Oral, Every 12 hours scheduled, First dose on Mon09/04/19 at 1800, For 4 doses [] Hold for sedation. DO NOT CRUSH OR CHEW. Start: 09-04-2019 End: 09-05-2019 take 5-10 mg by mouth every four hours as needed 5-10 mg, Oral, Every 4 hours PRN (may repeat), moderate to severe pain, Starting Mon09/04/19 at 1613 [] Initiate with 5 mg oral every 4 hours prn moderate to severe pain. [] For unrelieved pain, may repeat 5 mg oral dose within 60 minutes of initial dose. [] If pain is RELIEVED after repeat dose, change to 10 mg oral every 4 hours prn moderate to severe pain. [] If pain is UNrelieved after repeat dose, or patient requires dose reduction, call physician. [] If multiple routes are ordered for pain meds, it is recommended that oral be the first choice, IV the second choice, rectal the third choice, and IM the fourth choice. Start: 02-27-2019 End: 02-28-2019 oxyCODONE (OXYCONTIN) 12 hr tablet 10 mg microencapsulated potassium chloride 20 meq extended release oral tablet (2 sources) Start: 10-14-2019 End: 10-14-2019 potassium chloride SA (K-DUR,KLOR-CON) CR tablet 40 mEq Start: 09-05-2019 End: 09-05-2019 potassium chloride SA (K-DUR ,KLOR-CON) CR tablet 20 mEq potassium nitrate 250 mg/ml / silver nitrate 750 mg/ml medicated pad (2 sources) Start: 10-08-2019 End: 10-08-2019 silver nitrate applicators applicator 1 application Start: 10-08-2019 End: 10-08-2019 silver nitrate applicators a pplicator 1 application predniSONE 5 mg oral tablet (20 sources) Start: 07-26-2021 End: 08-11-2022 predniSONE (DELTASONE) 5 mg tablet Indications: Rheumatoid arthritis of multiple sites without organ or system involvement with positive rheumatoid factor (HCC) Day 1=6tabs with food, Day 2=5tabs, Day 3=4tabs, Day 4=3tabs, Day 5=2tabs, Day 6=1tab daily thereafter, No NSAIDs on med 90 tablet 3 08/11/2022 Active Start: 02-28-2019 End: 08-23-2019 take 5 mg by mouth once daily in the morning 5 mg, Oral, Every morning, First dose on [place] 02/28/19 at 0900 Comment on above: Day 1=6tabs with kennedy d, Day 2=5tabs, Day 3=4tabs, Day 4=3tabs, Day 5=2tabs, Day 6=1tab daily thereafter, No NSAIDs on med 2 ml prochlorperazine 5 mg/ml injection (2 sources) Phenothiazine Start: 2019 End: 2019 take 10 mg intravenous route every twenty-four hours as needed prochlorperazine (COMPAZINE) injection 10 mg Start: 09-04-2019 End: 09-04-2019 prochlorperazine (COMPAZINE) injection 10 mg promethazine hydrochloride 25 mg oral tablet (1 source) Phenothiazine Start: 02-27-2019 End: 02-28-2019 take 1 tablet by mouth every six hours as needed promethazine (PHENERGAN) tablet 25 mg 20 ml ropivacaine hydrochloride 5 mg/ml injection (1 source) Amide Local Anesthetic Start: 04-08-2020 End: 04-08-2020 40 mL, Infiltration, Once, 04/08/20 at 1015, For 1 dose, Pre-Procedure for anesthesia block administration Start: 04-08-2020 End: 04-08-2020 40 mL, Infiltration, Once, W ed 04/08/20 at 1015, For 1 dose, Pre-Procedure for anesthesia block administration 72 hr scopolamine 0.0139 mg/hr transdermal system (4 sources) Anticholinergic Start: 04-08-2020 End: 04-08-2020 apply 1 dose transdermal route once 1 patch, Transdermal, Once, 04/08/20 at 1100, For 1 dose Start: 10-13-2019 End: 10-14-2019 apply 1 dose transdermal route once 1 patch, Transdermal, Once, 10/13/19 at 0930, For 1 dose, Pre-Procedure Start: 09-04-2019 End: 09-05-2019 apply 1 dose transdermal route once 1 patch, Transdermal, Once, Mon09/04/19 at 0945, For 1 dose Start: 02-27-2019 End: 02-28-2019 apply 1 dose transdermal route once 1 patch, Transdermal, Once, Mon02/27/19 at 0700, For 1 dose, Pre-Procedure Apply to left mastoid. simvastatin 20 mg oral tablet (20 sources) HMG-CoA Reductase Inhibitor Start: 11-12-2020 take 1 tablet by mouth once daily simvastatin (ZOCOR) 20 mg tablet Take 20 mg by mouth once daily. 0 11/12/2020 Active Start: 10-13-2019 End: 10-14-2019 take 20 mg by mouth once daily at lunch 20 mg, Oral, Daily with lunch, First dose on 10/13/19 at 1200 Start: 09-05-2019 End: 09-05-2019 take 20 mg by mouth once daily at lunch 20 mg, Oral, Daily with lunch, First dose on [place] 09/05/19 at 1200 take 1 tablet by meera th once daily at lunch simvastatin (ZOCOR) 20 MG tablet Indications: hyperlipidemia Take 20 mg by mouth daily with lunch Reasons: excessive fat in the blood. 0 Active Comment on above: Take 20 mg by mouth once daily. 1000 ml sodium chloride 9 mg/ml injection (5 sources) Start: 10-12-2019 End: 10-12-2019 sodium chloride 0.9% (NS) bolus 500 mL Start: 09-04-2019 End: 09-05-2019 take 75 mL intravenous route every hour 75 mL/hr, Intravenous, Continuous, Starting Mon09/04/19 at 1700 Start: 09-04-2019 End: 09-05-2019 sodium chloride (PF) (NS) fl ush 5 mL Start: 02-27-2019 End: 02-28-2019 take 75 mL intravenous route every hour 75 mL/hr, Intravenous, Continuous, Starting Mon02/27/19 at 1330 Start: 02-27-2019 End: 02-28-2019 sodium chloride (PF) (NS) fl ush 5 mL sulfaSALAzine 500 mg delayed release oral tablet (20 sources) Aminosalicylate Start: 02-14-2023 take 1 tablet by mouth three times daily sulfaSALAzine EC (AZULFIDINE EN-TABS) 500 mg EC tablet Indications: Rheumatoid arthritis of multiple sites without organ or system involvement with positive rheumatoid factor (HCC) Take 1 tablet by mouth three times daily. 270 tablet 3 02/14/2023 Active Start: 07-26-2021 End: 08-11-2022 take 1 tablet by mouth three times daily sulfaSALAzine EC (AZULFIDINE EN-TABS) 500 mg EC tablet Indications: Rheumatoid arthritis of multiple sites without organ or system involvement with positive rheumatoid factor (HCC) Take 1 tablet by mouth three times daily. 270 tablet 3 08/11/2022 Active Start: 09-04-2019 End: 10-14-2019 take 1 tablet by mouth three times daily sulfaSALAzine (AZULFIDINE) 500 mg tablet Indications: rheumatoid arthritis Take 1 (one) tablet (500 mg total) by mouth 3 (three) times a day . Reasons: rheumatoid arthritis. 0 09/04/2019 Active Start: 02-27-2019 End: 02-28-2019 take 500 mg by mouth four times daily 500 mg, Oral, 4 times daily, First dose on Mon02/27/19 at 1330 Indication: Rheumatoid Arthritis take 1 tablet by meera th three times daily sulfaSALAzine (AZULFIDINE) 500 mg tablet Indications: rheumatoid arthritis Take 500 mg by mouth 3 (three) times a day Reasons: rheumatoid arthritis. 0 Active Comment on above: Take 1 tablet by meera th three times daily. traZODone hydrochloride 50 mg oral tablet (1 source) Serotonin Reuptake Inhibitor Start: 0 End: 0 take 50 mg by mouth once daily as needed for sleep 50 mg, Oral, Nightly PRN, sleep, Starting 10/12/19 at 1609 [] May repeat times 1 in 30 minutes if still awake. 24 hr upadacitinib 15 mg extended release oral tablet (13 sources) Start: 2 End: 2 take 1 tablet by mouth once daily upadacitinib (RINVOQ) Tb24 tablet Indications: Rheumatoid arthritis of multiple sites without organ or system involvement with positive rheumatoid factor (HCC) Take 1 tablet (15 mg) by mouth once daily. Swallow whole; DO NOT crush, chew, or open. Hold if on antibiotics or ill. Hold 1weeks after vaccines. 90 tablet 3 07/27/2022 Active Comment on above: Take 1 tablet (15 mg ) by mouth once daily. Swallow whole; DO NOT crush, chew, or open. Hold if on antibiotics or ill. Hold 1weeks after vaccines. VITAMIN B COMPLEX ORAL (3 sources) VITAMIN B COMPLE X ORAL Take by mouth. 0 Active Comment on above: Take by mouth. VITAMIN E ORAL (12 sources) VITAMIN E ORAL T frank by mouth. 0 Active Comment on above: Take by mouth. Problems Active Problems Problem Classification Problem Date Documented Date Episodic/Chronic Asthma (12 sources) Mild intermittent asthma; Translations: [Mild intermittent asthma, uncomplicated] Onset: 01-29-2021 01-29-2021 Chronic Cardiac dysrhythmias (1 source) Tachycardia, unspecified; Translations: [TACHYCARDIA UNSPECIFIED] Onset: 11-03-2022 Episodic Complications of surgical procedures or medical care (1 source) Postprocedural hypothyroidism; Translations: [POSTPROCEDURAL HYPOTHYROIDISM] Onset: 02-02-2022 Chronic Deficiency and other anemia (3 sources) Anemia of chronic disease; Translations: [Anemia in other chronic diseases classified elsewhere] Chronic Deficiency and other anemia (1 source) Anemia in other chronic diseases classified elsewhere; Translations: [Anemia of chronic disease] Onset: 11-23-2023 Chronic Diabetes mellitus with complications (7 sources) Type 2 diabetes mellitus with ulcer; Translations: [Type 2 diabetes mellitus with other circulatory complications] Onset: 02-01-2022 Chronic Diabetes mellitus without complication (20 sources) Type 2 diabetes mellitus without complication; Translations: [Diabetes mellitus] Onset: 04-24-2019 04-24-2019 Chronic Disorders of lipid metabolism (18 sources) Hyperlipidemia; Translations: [Other hyperlipidemia] Onset: 01-29-2021 03-15-2021 Chronic Essential hypertension (20 sources) Benign essential hypertension; Translations: [Essential hypertension] Onset: 04-23-2019 04-23-2019 Chronic Immunizations and screening for infectious disease (2 sources) Tuberculosis screening status; Translations: [Encounter for screening for respiratory tuberculosis] Onset: 11-23-2023 05-28-2023 Episodic Nonspecific chest pain (4 sources) Other chest pain; Translations: [OTHER CHEST PAIN] Onset: 11-02-2022 Episodic Nutritional deficiencies (20 sources) Vitamin D deficiency; Translations: [Vitamin D deficiency, unspecified] Onset: 07-01-2013 Chronic Nutritional deficiencies (2 sources) Cobalamin deficiency; Translations: [Deficiency of other specified B group vitamins] Onset: 11-23-2023 05-28-2023 Episodic Osteoarthritis (20 sources) Degenerative joint disease involving multiple joints; Translations: [Secondary multiple arthritis] Onset: 08-06-2015 08-06-2015 Chronic Other acquired deformities (1 source) Contracture, right elbow; Translations: [Contracture of right elbow] Chronic Other acquired deformities (1 source) Contracture of left elbow joint; Translations: [Contracture of left elbow] Other aftercare (15 sources) H/O: high risk medication; Translations: [Other assisted (current) drug therapy] Onset: 07-16-2018 07-16-2018 Episodic Other bone disease and musculoskeletal deformities (14 sources) Osteopenia; Translations: [Other specified disorders of bone density and structure, multiple sites] Onset: 12-16-2020 12-16-2020 Episodic Other connective tissue disease (17 sources) Fibromyalgia; Translations: [Fibromyalgia] Onset: 08-29-2014 08-29-2014 Episodic Other connective tissue disease (14 sources) Disorder of hand; Translations: [Synovitis and tenosynovitis, unspecified] Onset: 06-30-2014 06-30-2014 Episodic Other connective tissue disease (15 sources) Pain of bilateral hands; Translations: [Pain in right hand] Onset: 07-16-2018 07-16-2018 Episodic Other eye disorders (14 sources) Tear film insufficiency; Translations: [Dry eye syndrome of unspecified lacrimal gland] Onset: 03-29-2016 03-29-2016 Episodic Other hematologic conditions (17 sources) ESR raised; Translations: [Elevated erythrocyte sedimentation rate] Onset: 08-24-2012 Episodic Other injuries and conditions due to external causes (1 source) Injury of elbow; Translations: [Elbow injury, unspecified laterality, sequela] Episodic Other nervous system disorders (1 source) Other chronic pain; Translations: [Other chronic pain] Onset: 04-18-2017 Chronic Other nervous system disorders (1 source) Lesion of ulnar nerve, right upper limb; Translations: [Lesion of right ulnar nerve] Chronic Other nervous system disorders (1 source) Inflammatory neuropathy ; Translations: [Acute neuritis] Chronic Other nervous system disorders (12 sources) Carpal tunnel syndrome; Translations: [Carpal tunnel syndrome, unspecified upper limb] Onset: 10-07-2011 10-07-2011 Chronic Other nervous system disorders (1 source) Bilateral carpal tunnel syndrome; Translations: [Carpal tunnel syndrome, bilateral upper limbs] Chronic Other nervous system disorders (2 sources) Postoperative pain ; Translations: [Post-operative pain] Episodic Other nervous system disorders (1 source) Abnormal gait; Translations: [Unspecified abnormalities of gait and mobility] 11-23-2023 Episodic Other non-traumatic joint disorders (6 sources) Arthritis of elbow; 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] Onset: 09-04-2019 09-04-2019 Chronic Other non-traumatic joint disorders (14 sources) Hip pain; Translations: [Pain in right hip] Onset: 10-07-2011 10-07-2011 Episodic Other non-traumatic joint disorders (13 sources) Bilateral wrist pain; Translations: [Pain in right wrist] Onset: 07-16-2018 07-16-2018 Episodic Other non-traumatic joint disorders (15 sources) Multiple stiff joints; Translations: [Stiffness of unspecified joint, not elsewhere classified] Onset: 07-16-2018 07-16-2018 Episodic Other non-traumatic joint disorders (15 sources) Bilateral elbow joint pain; Translations: [Pain in right elbow] Onset: 12-10-2020 12-10-2020 Episodic Other non-traumatic joint disorders (12 sources) Bilateral chronic pain of upper limbs; Translations: [Pain in right shoulder] Onset: 03-29-2016 03-29-2016 Episodic Other non-traumatic joint disorders (1 source) Chronic pain of left upper limb; Translations: [Pain in left elbow] 07-26-2021 Episodic Other screening for suspected conditions (not mental disorders or infectious disease) (20 sources) Other specified abnormal findings of blood chemistry; Translations: [Other abnormal blood chemistry] Onset: 01-27-2012 Episodic Other upper respiratory infections (1 source) Acute upper respiratory infection, unspecified; Translations: [ACUTE UP RESPIRATORY INFECTION UNS] Onset: 09-21-2022 Episodic Residual codes; unclassified (1 source) Other specified health status; Translations: [No contraindication to deep vein thrombosis (DVT) prophylaxis] Episodic Rheumatoid arthritis and related disease (20 sources) Other specified rheumatoid arthritis, right elbow; Translations: [Rheumatoid arthritis] Onset: 05-26-2014 04-24-2019 Chronic Rheumatoid arthritis and related disease (2 sources) Rheumatoid arthritis of right elbow; Translations: [Rheumatoid arthritis involving right elbow, unspecified rheumatoid factor presence (HCC)] Spondylosis; intervertebral disc disorders; other back problems (17 sources) Cervicalgia; Translations: [Neck pain] Onset: 10-07-2011 10-07-2011 Episodic Thyroid disorders (13 sources) Acquired hypothyroidism; Translations: [Hypothyroidism] Onset: 03-15-2021 03-15-2021 Chronic Unclassified (3 sources) Preprocedural examination done; Translations: [Pre-op exam] Unclassified (2 sources) Patient encounter status; Translations: [Pre-operative cardiovascular examination] Unclassified (1 source) Prevention status; Translations: [Need for prophylactic measure] Unclassified (3 sources) COUGH, UNSPECIFIED; Translations: [COUGH, UNSPECIFIED] Onset: 09-21-2022 Unclassified (1 source) CONTACT W/AND (SUSP) EXPOS COVID-19; Translations: [CONTACT W/AND (SUSP) EXPOS COVID-19] Onset: 09-21-2022 Unclassified (1 source) POST COVID-19 CONDITION UNSPECIFIED; Translations: [POST COVID-19 CONDITION UNSPECIFIED] Onset: 07-08-2022 Past or Other Problems Problem Classification Problem Date Documented Da te Episodic/Chronic Abdominal pain (4 sources) Right upper quadrant pain; Translations: [RIGHT UPPER QUADRANT PAIN] Onset: 2 Episodic Complications of surgical procedures or medical care (13 sources) Complication of procedure; Translations: [Postoperative wound infection] Onset: 1 03-15-2021 Episodic Deficiency and other anemia (1 source) Anemia, unspecified; Translations: [ANEMIA UNSPECIFIED] Onset: 2 Episodic Diabetes mellitus without complication (1 source) Other abnormal glucose; Translations: [OTHER ABNORMAL GLUCOSE] Onset: 2 Episodic Malaise and fatigue (12 sources) Fatigue; Translations: [Other fatigue] Onset: 5 11-12-2014 Episodic Nausea and vomiting (13 sources) Postoperative nausea and vomiting; Translations: [Nausea and vomiting] Onset: 5 09-16-2015 Episodic Open wounds of extremities (4 sources) Open wound of upper limb; Translations: [Non-healing wound of upper extremity] Onset: 0 10-14-2019 Episodic Other aftercare (1 source) 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; 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] Onset: 2 Episodic Other connective tissue disease (11 sources) Fibrositis arm; Translations: [Fibromyalgia affecting forearm] Onset: 9 04-24-2019 Episodic Other connective tissue disease (12 sources) Pain in finger of right hand; Translations: [Pain in right finger(s)] Onset: 5 11-12-2014 Episodic Other connective tissue disease (12 sources) Bilateral medial epicondylitis of elbows; Translations: [Medial epicondylitis, right elbow] Onset: 8 07-23-2018 Episodic Other connective tissue disease (12 sources) Lateral epicondylitis of bilateral humerus; Translations: [Lateral epicondylitis, right elbow] Onset: 8 07-23-2018 Episodic Other gastrointestinal disorders (1 source) H/O: gastrointestinal disease; Translations: [History of postoperative nausea and vomiting] Episodic Other hematologic conditions (1 source) Elevated erythrocyte sedimentation rate; Translations: [Elevated sed rate] Onset: 2 Episodic Other lower respiratory disease (12 sources) Productive cough ; Translations: [Productive cough] Onset: 7 12-01-2016 Episodic Other lower respiratory disease (4 sources) Other forms of dyspnea; Translations: [OTHER FORMS OF DYSPNEA] Onset: 2 Episodic Other nervous system disorders (12 sources) Paresthesia of hand ; Translations: [Anesthesia of skin] Onset: 0 01-16-2020 Episodic Other non-traumatic joint disorders (3 sources) Pain in right elbow; Translations: [Pain in left shoulder] Onset: 7 Episodic Other non-traumatic joint disorders (20 sources) Pain in elbow; Translations: [Pain in right elbow] Onset: 6 02-28-2019 Episodic Other non-traumatic joint disorders (11 sources) Disorder of elbow; Translations: [Skin ulcer of elbow with fat layer exposed] Onset: 9 04-23-2019 Episodic Other non-traumatic joint disorders (12 sources) Pain in right knee; Translations: [Pain in joint, lower leg] Onset: 4 06-30-2014 Episodic Other non-traumatic joint disorders (12 sources) Multiple joint pain; Translations: [Pain in unspecified joint] Onset: 5 08-06-2015 Episodic Other non-traumatic joint disorders (2 sources) Shoulder pain; Translations: [Pain in right shoulder] Onset: 6 03-29-2016 Episodic Other non-traumatic joint disorders (12 sources) Swelling of joint of right wrist; Translations: [Effusion, right wrist] Onset: 1 12-10-2020 Episodic Other skin disorders (12 sources) Eruption; Translations: [Rash and other nonspecific skin eruption] Onset: 4 06-30-2014 Episodic Unclassified (1 source) COUGH, UNSPECIFIED; Translations: [COUGH, UNSPECIFIED] Onset: 2 Viral infection (13 sources) Postherpetic neuralgia; Translations: [Other postherpetic nervous system involvement] Onset: 6 03-29-2016 Episodic Results Test Name Value Interpretation Reference Range Facility [facility] 11-27-2023 [facility] Telephone (CHAD) ELSA CATALAN ([id number]) 1960 F Date Time Provider Department 11/27/23 PEPE CARTER During your visit today, we recorded the following information about you: Pepe Carter MD 11/27/2023 6:07 AM Signed Please Call patient if MyChart note not read to review results/released to My Chart if tests completed at [facility]: Borderline glucose- will monitor with primary care provider. Much improved/Normal rest of labs and no inflammation. Take over the counter vitamin D 6000 International Units daily with food for the winter. Recheck nonfasting labs in 3months.The orders have been placed. Happy to further review and discuss at follow up visit. Continue rest of treatment plan per instructions at last office visit. Thank you. 11/23/23 high glucose 146;normal rest of cmp, cbc, esr 15, crp 0.7, vitamin D 34.8, vitamin [id number];negative quantiferon tb; Lauren Galo MA 11/27/2023 8:45 AM Signed Spoke to pt aware of results and recommendations. Allergies As of Date: 11/27/2023 Noted Allergy Reaction CIPROFLOXACIN 12/23/2016 2 - Rash Anesthetics [Other] 12/06/2002 Comments: problems awakening AND gi upset with general INDOMETHACIN 12/06/2002 Comments: (Indocin) extremely high temperature elevation PENICILLIN G 12/06/2002 Comments: rash PROPOXYPHENE 12/06/2002 Comments: pt. not sure Date Reviewed: 11/23/2023 Reviewed by: Pepe Carter MD - Fully Assessed Reason for Visit: Results [95] Primary Visit Diagnosis:Rheumatoid arthritis of multiple sites without organ or system involvement with positive rheumatoid factor (HCC) [M05.79] Other Visit Diagnoses:Elevated LFTs [R79.89] Anemia of chronic disease [D63.8] Elevated sed rate [R70.0] Elevated C-reactive protein (CRP) [R79.82] Vitamin D deficiency [E55.9] Order(s):COMP METABOLIC PANEL [SQCMP] Order #: [id number] FUTURE CBC [SQCBC] Order #: [id number] FUTURE SED RATE WESTERGREN [SQWSR] Order #: [id number] FUTURE C-REACTIVE PROTEIN (CRP) [SQCRP] Order #: [id number] FUTURE VITAMIN D 25 HYDROXY [SQVITD] Order #: [id number] FUTURE Prescriptions as of 11/27/2023 - methotrexate 2.5 mg tablet TAKE 10 TABS ONCE A WEEK with food. No alcohol. Hold if on antibiotics or ill. Hold 1-2weeks after vaccines. - VITAMIN B COMPLEX ORAL Take by mouth. - methotrexate sodium 25 mg/mL soln Sq 1ml injection once a week. No alcohol. Hold if on antibiotics or ill. - Syringe with Needle, Disp, (BD SYRINGE) 1 mL 25 gauge x 5/8 To use with Methotrexate Sodium injection. 1ml weekly SQ - sulfaSALAzine EC (AZULFIDINE EN-TABS) 500 mg EC tablet Take 1 tablet by mouth three times daily. - leflunomide (ARAVA) 20 mg tablet Take 1tab daily by mouth with food. Hold in on antibiotics or ill. - folic acid 1 mg tablet Take 2 tablets by mouth once daily. - predniSONE (DELTASONE) 5 mg tablet Day 1=6tabs with food, Day 2=5tabs, Day 3=4tabs, Day 4=3tabs, Day 5=2tabs, Day 6=1tab daily thereafter, No NSAIDs on med - upadacitinib (RINVOQ) Tb24 tablet Take 1 tablet (15 mg) by mouth once daily. Swallow whole; DO NOT crush, chew, or open. Hold if on antibiotics or ill. Hold 1weeks after vaccines. - gabapentin (NEURONTIN) 300 mg capsule TAKE 10 CAPSULES BY MOUTH DIVIDED THROUGHOUT THE DAY - docusate sodium (COLACE) 100 mg capsule Take 1 capsule by mouth twice daily as needed for constipation. - VITAMIN E ORAL Take by mouth. - simvastatin (ZOCOR) 20 mg tablet Take 20 mg by mouth once daily. - metoprolol succinate ER (TOPROL XL) 25 mg 24 hr tablet Take 25 mg by mouth once daily. - cloNIDine HCl (CATAPRES) 0.1 mg tablet Take 0.1 mg by mouth twice daily. - lidocaine (LIDODERM) 5 % apply 1 patch to the aRM once daily IN THE AFTERNOON - levothyroxine (SYNTHROID) 50 mcg tablet take 1 tablet by mouth once daily ALONG WITH 200 MG TABLET FOR TOTAL OF 250 MG - levothyroxine (SYNTHROID) 200 mcg tablet Take 200 mcg by mouth once daily. - JARDIANCE 25 mg tablet Take 25 mg by mouth once daily. - VENTOLIN HFA 90 mcg/actuation inhaler inhale 2 puffs by mouth and INTO THE LUNGS every 4 hours if needed - insulin aspart U-100 (NOVOLOG) 100 unit/mL Inject subcutaneously. - insulin glargine (LANTUS SOLOSTAR, BASAGLAR KWIKPEN) 100 unit/mL (3 mL) Inject 50 Units subcutaneously. - irbesartan (AVAPRO) 150 mg tablet Take 150 mg by mouth once daily. - FLUoxetine (PROZAC) 20 mg capsule Take 1 capsule by mouth once daily. - insulin needles, DISPOSABLE, (BD INSULIN PEN NEEDLE UF) 31 gauge x 5/16 ndle Substitute equivalent syringe/needles for weekly sq methotrexate - Cholecalciferol, Vitamin D3, 5,000 unit Tab Take 1 tablet by mouth once daily. Problem List As Of Date 11/27/2023 Noted Resolved CTS (carpal tunnel syndrome) [G56.00] 10/07/2011 Neck pain [M54.2] 10/07/2011 Hip pain, bilateral [M25.551, M25.552] 10/07/2011 Elevated L (more content not included)... Normal [facility] 25(OH)D3 SerPl-mCncon 2023 25-hydroxyvitamin D3 [Mass/Vol] 34.8 ng/mL Normal 31.0-80.0 [facility] Comment on above: Order Comment: Vivek sanchez Type: BLOOD SPECIMEN Ordering Facility: [facility] Address: [address] [place] [address] Result Comment: Clas sification of 25 OH Vitamin D status: Deficiency/Insufficiency: < or = 30 ng/ml. Sufficiency/Optimal Levels: 31-80 ng/mL Toxicity: > 100 ng/mL. Test performed by chemiluminescent immunoassay. Performed By: #### 1 988-5, 2132-06 #### [facility] CLIA [id number] [address] [place] [address] BLOOD TB SCREENon 11-23-2023 M. tuberculosis tuberculin stim IFN-g Ql (Bld) Negative Normal [facility] Comment on above: Order Comment: Vivek sanchez Type: BLOOD SPECIMEN Ordering Facility: [facility] Address: [address] [place], [place] [id number] Performed By: #### 1 9885, 2132-06 #### [facility] CLIA [id number] [address] [place] [address] OF [place] MITOGEN MINUS NIL >9.83 Normal >=0.50 [facility] Comment on above: Order Comment: Vivek sanchez Type: BLOOD SPECIMEN Ordering Facility: [facility] Address: [address] [place], [place] [address] Performed By: #### 1 988, 2132-06 #### [facility] CLIA [id number] [address] [place] [address] [place] TB GAMMA INTERPRETATION Infection with M. tuberculosis complex is unlikely. If latent tuberculosis infection is highly suspected, a negative result does not rule out the infection. Specimens from immunocompromised patients and those <5 years of age may show false negative results. In case of a contact investigation, please repeat 8-12 weeks after a known exposure. Normal [facility] Comment on above: Order Comment: Speci men Type: BLOOD SPECIMEN Ordering Facility: [facility] Address: [address] [place] [address] Performed By: #### 1 , 2132-06 #### [facility] CLIA [id number] [address] [place] [address] OF [place] TB NIL 0.17 IU/mL Normal <=8.00 [facility] Comment on above: Order Comment: Speci men Type: BLOOD SPECIMEN Ordering Facility: [facility] Address: [address] [place], [place] [address] Performed By: #### 1 , 2132-06 #### [facility] CLIA [id number] [address] OF [place] TB1 AG MINUS NIL 0.13 IU/mL Normal <0.35 [facility] Comment on above: Order Comment: Speci men Type: BLOOD SPECIMEN Ordering Facility: [facility] Address: [address] Performed By: #### 1 988, 2132-06 #### [facility] CLIA [id number] [address] [place] [address] [facility] [place] TB2 AG MINUS NIL 0.13 IU/mL Normal <0.35 [facility] Comment on above: Order Comment: Speci men Type: BLOOD SPECIMEN Ordering Facility: [facility] Address: [address] [place], [place] [address] Performed By: #### 1 988-5, 2132-06 #### [facility] CLIA [id number] [address] [place] [address] [place] CBC panel Auto (Bld)on 11-23 Erythrocyte distribution width (RBC) [Ratio] 14.2 % Normal 11.5-15.0 [facility] Comment on above: Order Comment: Speci men Type: BLOOD SPECIMEN Ordering Facility: [facility] Address: [address] [place] [address] Performed By: #### 1 988, 2132-06 #### [facility] CLIA [id number] [address] [place] [address] [place] Hematocrit (Bld) [Volume fraction] 40.3 % Normal 36.0-46.0 [facility] Comment on above: Order Comment: Speci men Type: BLOOD SPECIMEN Ordering Facility: [facility] Address: [address] [place] [id number] Performed By: #### 1 988, 2132-06 #### [facility] [place] [id number] [address] [place] [address] [place] Hemoglobin (Bld) [Mass/Vol] 13.5 g/dL Normal 11.5-15.5 [facility] Comment on above: Order Comment: Speci men Type: BLOOD SPECIMEN Ordering Facility: [facility] Address: [address] [place] [address] Performed By: #### 1 988-, 2132-06 #### [facility] [place] [id number] [address] [place] [address] [place] MCH (RBC) [Entitic mass] 30.5 pg Normal 26.0-34.0 [facility] Comment on above: Order Comment: Speci men Type: BLOOD SPECIMEN Ordering Facility: [facility] Address: [address] [place] [address] Performed By: #### 1 988, 2132-06 #### [facility] CLIA [id number] [address] [place] [address] [place] MCHC (RBC) [Mass/Vol] 33.5 g/dL Normal 30.5-36.0 [facility] Comment on above: Order Comment: Speci men Type: BLOOD SPECIMEN Ordering Facility: [facility] Address: [address] [place], [place] [address] Performed By: #### 1 9805-06, 2132-06 #### [facility] CLIA [id number] [address] [place] [address] [place] MCV (RBC) [Entitic vol] 91.0 fL Normal 80.0-100.0 [facility] Comment on above: Order Comment: Speci men Type: BLOOD SPECIMEN Ordering Facility: [facility] Address: [address] [place], [place] [address] Performed By: #### 1 9805-06, 2132-06 #### [facility] CLIA [id number] [address] [place] [address] [place] Nucleated RBC (Bld) [#/Vol] 10*3/uL Normal <0.01 [facility] Comment on above: Order Comment: Speci men Type: BLOOD SPECIMEN Ordering Facility: [facility] Address: [address] [place], [place] [address] Performed By: #### 1 988, 2132-06 #### [facility] CLIA [id number] [address] [place] [address] [place] Platelet mean volume (Bld) [Entitic vol] 10.2 fL Normal 9.0-12.7 [facility] Comment on above: Order Comment: Speci men Type: BLOOD SPECIMEN Ordering Facility: [facility] Address: [address] [place], [place] [address] Performed By: #### 1 988, 2132-06 #### [facility] CLIA [id number] [address] [place] [address] [place] Platelets (Bld) [#/Vol] 302 10*3/uL Normal 150-400 [facility] Comment on above: Order Comment: Speci men Type: BLOOD SPECIMEN Ordering Facility: [facility] Address: [address] [place] [address] Performed By: #### 1 988-5, 2132-06 #### [facility] CLIA [id number] [address] [place] [address] [place] RBC (Bld) [#/Vol] 4.43 10*6/uL Normal 3.90-5.20 [facility] Comment on above: Order Comment: Speci men Type: BLOOD SPECIMEN Ordering Facility: [facility] Address: [address] [place] [address] Performed By: #### 1 988-5, 2132-06 #### [facility] CLIA [id number] [address] [place] [address] [place] WBC (Bld) [#/Vol] 8.77 10*3/uL Normal 3.70-11.00 [facility] Comment on above: Order Comment: Speci men Type: BLOOD SPECIMEN Ordering Facility: [facility] Address: [address] [place] [address] Performed By: #### 1 988-5, 2132-06 #### [facility] CLIA [id number] [address] [place] [address] [place] CNOVon 11-23-2023 CNOV Office Visit (CHAD ) ELSA CATALAN ([id number]) 1960 F Date Time Provider Department 11/23/23 9:00 AM PEPE CARTER During your visit today, we recorded the following information about you: Pulse Blood pressure Weight 81/minute 129/83 68.9 kg Pepe Carter MD 11/23/2023 9:25 AM Addendum May apply over the counter arthritis cream (biofreeze, icy hot, asper cream, tiger balm, capsacin, etc.) to painful joints up to four times a day. Avoid contact with eyes. May take ES acetaminophen 500mg every 4-6hours for joint pain. Do not exceed 2000mg /day. Increase calcium intake Increase potassium intake No response lyrica OFF Hydroxychloroquine/Plaq uenil/humira/xeljanz Methotrexate 10tabs once a week or 1ml sq injection food every other a week (HOLD 1-2weeks after vaccines) Do not drink alcohol while taking methotrexate Have bloodwork every 8-12weeks for monitoring while taking Methotrexate Please take folic acid 1mg tab:Take 1tab by mouth daily SSZ 500mg tab 3times a day Rinvoq daily by mouth arava/leflunamide daily with food hold methotrexate/rinvoq/jovan va if on antibiotics or if you have any signs/symptoms of infection. wear wrist splints at night and as needed for carpal tunnel syndrome may take prednisone for flares No NSAIDs (ex. motrin, etc.)on pred. eyedrops as instructed gabapentin/neurontin 300mg 3tab 3times a day see hand ortho for trigger finger injection/release/hand/ wrist/elbow pain nonfasting bloodwork as scheduled Thank you. Component Latest Ref Rng AND Units 05/24/2023 Protein, Total 6.3 - 8.0 g/dL 8.2 (H) Albumin 3.9 - 4.9 g/dL 4.4 Calcium 8.5 - 10.2 mg/dL 9.0 Bilirubin, Total 0.2 - 1.3 mg/dL 0.5 Alkaline Phosphatase 34 - 123 U/L 84 AST 13 - 35 U/L 23 ALT 7 - 38 U/L 27 Glucose 74 - 99 mg/dL 106 (H) BUN 7 - 21 mg/dL 13 Creatinine 0.58 - 0.96 mg/dL 0.65 Sodium 136 - 144 mmol/L 140 Potassium 3.7 - 5.1 mmol/L 3.4 (L) Chloride 97 - 105 mmol/L 102 CO2 22 - 30 mmol/L 28 Anion Gap 9 - 18 mmol/L 10 eGFR >=60 mL/min/1.73mA? 99 WBC 3.70 - 11.00 k/uL 7.18 RBC 3.90 - 5.20 m/uL 4.47 Hemoglobin 11.5 - 15.5 g/dL 13.8 Hematocrit 36.0 - 46.0 % 40.3 MCV 80.0 - 100.0 fL 90.2 MCH 26.0 - 34.0 pg 30.9 MCHC 30.5 - 36.0 g/dL 34.2 RDW-CV 11.5 - 15.0 % 13.3 Platelet Count 150 - 400 k/uL 249 MPV 9.0 - 12.7 fL 9.5 Absolute nRBC <0.01 k/uL <0.01 TB Nil <=8.00 IU/mL 0.07 TB1 Ag minus Nil <0.35 IU/mL 0.03 TB2 Ag minus Nil <0.35 IU/mL 0.05 TB Result Negative Mitogen minus Nil >=0.50 IU/mL >9.93 TB Interpretation Infection with M. tuberculosis complex is unlikely. If latent tuberculosis infection is highly suspected, a negative result does not rule out the infection. Specimens from immunocompromised patients and those <5 years of age may show false negative results. In case of a contact investigation, please repeat 8-12 weeks after a known exposure. WSR 0 - 20 mm/hr 35 (H) CRP <0.9 mg/dL 0.9 (H) Vitamin D 25 Hydroxy 31.0 - 80.0 ng/mL 41.5 Vitamin B12 232 - 1,245 pg/mL 1,074 Moisturizing treatments Stimulating saliva -- Simply sucking on sugarless candy or dried fruit slices (eg, peaches or nectarines) can stimulate the flow of saliva in many patients. [place] flavored sugarless tablets and sugar-free chewing gum may also be helpful. In some patients, medications such as pilocarpine or cevimeline are given to increase saliva production. Replacing secretions in the mouth -- Sipping on water throughout the day is an easy and effective treatment of dry mouth for many patients. The water does not have to be swallowed. It can be rinsed around the mouth and then spit out. If this is not effective, an artificial saliva product (spray or lozenge) may be helpful. If painful gums are a problem, a gel that relieves dry mouth (such as Oral Balance) can be helpful. Avoiding cavities -- Patients with SS are at increased risk for dental cavities. SS patients should perform careful dental hygiene, ideally brushing and dental flossing after eating meals and snacks. Patients should visit their dentist at least every six months. Toothpaste designed specifically for patients with dry mouth is available (eg, Biotene?, Orajel?). These lack the detergents that are present in many types of toothpaste, which can irritate a dry mouth. Toothbrushes with special features that help clean between the teeth and electric toothbrushes may also help to keep the teeth clean. Patients should use a toothpaste with fluoride or a special fluoride rinse or varnish. We recommend a fluoride treatment with a dentist or dental hygienist after each cleaning. Since the dentist may not stock this treatment, patients should contact the dental office prior to the appointment. Dry eye -- Use of a humidifier or moist washcloth over the eyes may provide some relief for dry e (more content not included)... Normal [facility] CRP SerPl-mCncon 11-23-2023 CRP [Mass/Vol] 0.7 mg/dL Normal <0.9 [facility] Comment on above: Order Comment: Vivek sanchez Type: BLOOD SPECIMEN Ordering Facility: [facility] Address: [address] [place] [address] Performed By: #### 1 988-5, 2132-9 #### [facility] CLIA [id number] [address] [place] Comprehensive metabolic 2000 panelon 11-23-2023 Albumin [Mass/Vol] 4.5 g/dL Normal 3.9-4.9 [facility] Comment on above: Order Comment: Vivek sanchez Type: BLOOD SPECIMEN Ordering Facility: [facility] Address: [address] [place] [address] Performed By: #### 1 988-, 2132-06 #### [facility] CLIA [id number] [address] [place] [address] [place] ALP [Catalytic activity/Vol] 79 U/L Normal 34-123 [facility] Comment on above: Order Comment: Speci men Type: BLOOD SPECIMEN Ordering Facility: [facility] Address: [address] Performed By: #### 1 988, 2132-06 #### [facility] CLIA [id number] [address] [place] [address] [place] ALT [Catalytic activity/Vol] 25 U/L Normal 7-38 [facility] Comment on above: Order Comment: Speci men Type: BLOOD SPECIMEN Ordering Facility: [facility] Address: [address] [place] [address] Performed By: #### 1 988, 2132-06 #### [facility] CLIA [id number] [address] [place] [address] [place] Anion gap [Moles/Vol] 13 mmol/L Normal 9-18 [facility] Comment on above: Order Comment: Speci men Type: BLOOD SPECIMEN Ordering Facility: [facility] Address: [address] [place] [address] Performed By: #### 1 988, 2132-06 #### [facility] CLIA [id number] [address] [place] [address] [place] AST [Catalytic activity/Vol] 25 U/L Normal 13-35 [facility] Comment on above: Order Comment: Speci men Type: BLOOD SPECIMEN Ordering Facility: [facility] Address: [address] [place] [address] Performed By: #### 1 988-, 2132-06 #### [facility] CLIA [id number] [address] [place] [id number] [place] Bilirubin [Mass/Vol] 0.3 mg/dL Normal 0.2-1.3 [facility] Comment on above: Order Comment: Speci men Type: BLOOD SPECIMEN Ordering Facility: [facility] Address: [address] [place], [place] [address] Performed By: #### 1 988, 2132-06 #### [facility] CLIA [id number] [address] [place] [address] [place] Calcium [Mass/Vol] 9.4 mg/dL Normal 8.5-10.2 [facility] Comment on above: Order Comment: Speci men Type: BLOOD SPECIMEN Ordering Facility: [facility] Address: [address] [place], [place] [address] Performed By: #### 1 988, 2132-06 #### [facility] CLIA [id number] [address] [place] [address] [place] Chloride [Moles/Vol] 100 mmol/L Normal 97-105 [facility] Comment on above: Order Comment: Speci men Type: BLOOD SPECIMEN Ordering Facility: [facility] Address: [address] [place], [place] [address] Performed By: #### 1 988, 2132-06 #### [facility] CLIA [id number] [facility] [place] [id number] [place] CO2 [Moles/Vol] 27 mmol/L Normal 22-30 [facility] Comment on above: Order Comment: Speci men Type: BLOOD SPECIMEN Ordering Facility: [facility] Address: [address] [place] [address] Performed By: #### 1 988, 2132-06 #### [facility] CLIA [id number] [address] [place] [id number] [place] Creatinine [Mass/Vol] 0.72 mg/dL Normal 0.58-0.96 [facility] Comment on above: Order Comment: Vivek sanchez Type: BLOOD SPECIMEN Ordering Facility: [facility] Address: [address] [place] [address] Performed By: #### 1 988-5, 2132-06 #### [facility] CLIA [id number] [address] [place] [address] [facility] [place] Creatinine and Glomerular filtration rate.predicted panel (S/P/Bld) 94 mL/min/1.73m??? Normal >=60 [facility] Comment on above: Order Comment: Vivek sanchez Type: BLOOD SPECIMEN Ordering Facility: [facility] Address: [address] [place] [phone] Result Comment: Carrie mated Glomerular Filtration Rate (eGFR) is calculated using the 2020 CKD-EPI creatinine equation. This equation utilizes serum creatinine, sex, and age as parameters. The creatinine assay has traceable calibration to isotope dilution-mass spectrometry. Refer to KDIGO guidelines for clinical interpretation. In patients with unstable renal function, e.g. those with acute kidney injury, the eGFR may not accurately reflect actual GFR. Performed By: #### 1 9885, 2132-06 #### [facility] CLIA [id number] [address] [place] [address] [place] Glucose [Mass/Vol] 146 mg/dL High 74-99 [facility] Comment on above: Order Comment: Vivek sanchez Type: BLOOD SPECIMEN Ordering Facility: [facility] Address: [address] [place] [address] Result Comment: The [place] [employer] (ADA) provides guidance for cutoff values for fasting glucose and random glucose. The ADA defines fasting as no caloric intake for at least 8 hours. Fasting plasma glucose results between 100 to 125 mg/dL indicate increased risk for diabetes (prediabetes). Fasting plasma glucose results greater than or equal to 126 mg/dL meet the criteria for diagnosis of diabetes. In the absence of unequivocal hyperglycemia, results should be confirmed by repeat testing. In a patient with classic symptoms of hyperglycemia or hyperglycemic crisis, random plasma glucose results greater than or equal to 200 mg/dL meet the criteria for diagnosis of diabetes. Reference: Standards of Medical Care in Diabetes 2016, [place] [employer]. Diabetes Care. 2016.39(Suppl 1). Performed By: #### 1 988, 2132-06 #### [facility] CLIA [id number] [address] [place] [address] [place] Potassium [Moles/Vol] 3.9 mmol/L Normal 3.7-5.1 [facility] Comment on above: Order Comment: Speci men Type: BLOOD SPECIMEN Ordering Facility: [facility] Address: [address] [place] [address] Performed By: #### 1 988, 2132-06 #### [facility] CLIA [id number] [address] [place] [address] [place] Protein [Mass/Vol] 7.9 g/dL Normal 6.3-8.0 [facility] Comment on above: Order Comment: Speci men Type: BLOOD SPECIMEN Ordering Facility: [facility] Address: [address] [place] [address] Performed By: #### 1 988, 2132-06 #### [facility] CLIA [id number] [address] [place] [address] [place] Sodium [Moles/Vol] 140 mmol/L Normal 136-144 [facility] Comment on above: Order Comment: Speci men Type: BLOOD SPECIMEN Ordering Facility: [facility] Address: [address] [place] [address] Performed By: #### 1 988, 2132-06 #### [facility] CLIA [id number] [address] [place], [place] [id number] [place] Urea nitrogen [Mass/Vol] 16 mg/dL Normal 7-21 [facility] Comment on above: Order Comment: Speci men Type: BLOOD SPECIMEN Ordering Facility[facility] Address: [address] [place] [address] Performed By: #### 1 988-5, 2132-06 #### [facility] CLIA [id number] [address] [place] [address] [place] ESR Westergren method (Bld) [Velocity]on 11-23-2023 ESR (Bld) [Velocity] 15 mm/h Normal 0-20 [facility] Comment on above: Order Comment: Speci men Type: BLOOD SPECIMEN Ordering Facility: [facility] Address: [address] [place] [address] Performed By: #### 1 988-5, 2132-06 #### [facility] IA [id number] [address] [place] [address] [place] Vit B12 SerPl-mCncon 024 Cobalamin (Vitamin B12) [Mass/Vol] 1203 pg/mL Normal 232-1245 [facility] Comment on above: Order Comment: Speci men Type: BLOOD SPECIMEN Ordering Facility: [facility] Address: [address] [place] [address] Performed By: #### 1 988-5, 2132-06 #### [facility] IA [id number] [address] [place] [address] [place] CNPTiny 07-10-2023 BREEN Telephone (CHAD) ELSA CATALAN ([id number]) 1960 F Date Time Provider Department 07/10/23 PEPE CARTER During your visit today, we recorded the following information about you: Lesli Navarro LPN 07/10/2023 2:46 PM Signed Received refill request from [employer]. Form placed on your desk for signature. Pepe Carter MD 07/10/2023 3:20 PM Signed Form completed. Please process accordingly. Scan copy into [employer]. Notify patient when above completed. Recall in script when approved if needed. Thank you. Ramon LesliDONALD 07/12/2023 7:41 AM Signed Form faxed with confirmation. Allergies As of Date: 07/10/2023 Noted Allergy Reaction CIPROFLOXACIN 12/23/2016 2 - Rash Anesthetics [Other] 12/06/2002 Comments: problems awakening AND gi upset with general INDOMETHACIN 12/06/2002 Comments: (Indocin) extremely high temperature elevation PENICILLIN G 12/06/2002 Comments: rash PROPOXYPHENE 12/06/2002 Comments: pt. not sure Date Reviewed: 02/20/2023 Reviewed by: Pepe Carter MD - Fully Assessed Reason for Visit: Refill Request [94] Cmt: my[employer]bbvie-Rinvoq Prescriptions as of 07/12/2023 - Cholecalciferol, Vitamin D3, 5,000 unit Tab Take 1 tablet by mouth once daily. - cloNIDine HCl (CATAPRES) 0.1 mg tablet Take 0.1 mg by mouth twice daily. - docusate sodium (COLACE) 100 mg capsule Take 1 capsule by mouth twice daily as needed for constipation. - FLUoxetine (PROZAC) 20 mg capsule Take 1 capsule by mouth once daily. - folic acid 1 mg tablet Take 2 tablets by mouth once daily. - gabapentin (NEURONTIN) 300 mg capsule TAKE 10 CAPSULES BY MOUTH DIVIDED THROUGHOUT THE DAY - insulin aspart U-100 (NOVOLOG) 100 unit/mL Inject subcutaneously. - insulin glargine (LANTUS SOLOSTAR, BASAGLAR KWIKPEN) 100 unit/mL (3 mL) Inject 50 Units subcutaneously. - insulin needles, DISPOSABLE, (BD INSULIN PEN NEEDLE UF) 31 gauge x 5/16 ndle Substitute equivalent syringe/needles for weekly sq methotrexate - irbesartan (AVAPRO) 150 mg tablet Take 150 mg by mouth once daily. - JARDIANCE 25 mg tablet Take 25 mg by mouth once daily. - leflunomide (ARAVA) 20 mg tablet Take 1tab daily by mouth with food. Hold in on antibiotics or ill. - levothyroxine (SYNTHROID) 200 mcg tablet Take 200 mcg by mouth once daily. - levothyroxine (SYNTHROID) 50 mcg tablet take 1 tablet by mouth once daily ALONG WITH 200 MG TABLET FOR TOTAL OF 250 MG - lidocaine (LIDODERM) 5 % apply 1 patch to the aRM once daily IN THE AFTERNOON - methotrexate 2.5 mg tablet TAKE 10 TABS ONCE A WEEK with food. No alcohol. Hold if on antibiotics or ill. Hold 1-2weeks after vaccines. - methotrexate sodium 25 mg/mL soln Sq 1ml injection once a week. No alcohol. Hold if on antibiotics or ill. - metoprolol succinate ER (TOPROL XL) 25 mg 24 hr tablet Take 25 mg by mouth once daily. - predniSONE (DELTASONE) 5 mg tablet Day 1=6tabs with food, Day 2=5tabs, Day 3=4tabs, Day 4=3tabs, Day 5=2tabs, Day 6=1tab daily thereafter, No NSAIDs on med - simvastatin (ZOCOR) 20 mg tablet Take 20 mg by mouth once daily. - sulfaSALAzine EC (AZULFIDINE EN-TABS) 500 mg EC tablet Take 1 tablet by mouth three times daily. - Syringe with Needle, Disp, (BD SYRINGE) 1 mL 25 gauge x 5/8 To use with Methotrexate Sodium injection. 1ml weekly SQ - upadacitinib (RINVOQ) Tb24 tablet Take 1 tablet (15 mg) by mouth once daily. Swallow whole; DO NOT crush, chew, or open. Hold if on antibiotics or ill. Hold 1weeks after vaccines. - VENTOLIN HFA 90 mcg/actuation inhaler inhale 2 puffs by mouth and INTO THE LUNGS every 4 hours if needed - VITAMIN B COMPLEX ORAL Take by mouth. - VITAMIN E ORAL Take by mouth. Problem List As Of Date 07/10/2023 Noted Resolved CTS (carpal tunnel syndrome) [G56.00] 10/07/2011 Neck pain [M54.2] 10/07/2011 Hip pain, bilateral [M25.551, M25.552] 10/07/2011 Elevated LFTs [R79.89] 01/27/2012 Elevated sed rate [R70.0] 08/24/2012 Vitamin D deficiency [E55.9] 07/01/2013 Rheumatoid arthritis of multiple sites without *05/26/2014 Synovitis of hand [M65.9] 06/30/2014 Rash and nonspecific skin eruption [R21] 06/30/2014 Knee pain, right [M25.561] 06/30/2014 Fibromyalgia [M79.7] 08/29/2014 Finger pain, right [M79.644] 11/12/2014 Fatigue [R53.83] 11/12/2014 Pain in joint, multiple sites [M25.50] 08/06/2015 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 [facility] (CHAD) ELSA CATALAN ([id number]) 1960 F Date Time Provider Department 05/28/23 PEPE CARTER During your visit today, we recorded the following information about you: Pepe Carter MD 05/28/2023 10:50 AM Signed Please Call patient if MyChart note not read to review results/released to My Chart if tests completed at [facility]: Mildly low normal potassium- increase potassium intake, care per primary care provider/endocrinology. One borderline inflammatory tests- will monitor. Rest of labs much stable. Continue same vitamin D intake with food. Recheck nonfasting labs in 3months.The orders have been placed. Happy to further review and discuss at follow up visit. Continue rest of treatment plan per instructions at last office visit. Thank you. 05/24/23 low potassium 3.4;high esr 35, crp 0.9;normal rest of cbc, cmp, vitamin D 41.5, vitamin p39-0841; --- 02/16/23 high glucose 260(328), esr 27 (60);normal rest of cmp, cbc, crp<0.3, (3), vitamin D 42.3; Fransico Joseph MA 05/29/2023 7:08 AM Signed patient has viewed the [employer] message per [employer]. Allergies As of Date: 05/28/2023 Noted Allergy Reaction CIPROFLOXACIN 12/23/2016 2 - Rash Anesthetics [Other] 12/06/2002 Comments: problems awakening AND gi upset with general INDOMETHACIN 12/06/2002 Comments: (Indocin) extremely high temperature elevation PENICILLIN G 12/06/2002 Comments: rash PROPOXYPHENE 12/06/2002 Comments: pt. not sure Date Reviewed: 02/20/2023 Reviewed by: Pepe Carter MD - Fully Assessed Reason for Visit: Results [95] Primary Visit Diagnosis:Rheumatoid arthritis of multiple sites without organ or system involvement with positive rheumatoid factor (HCC) [M05.79] Other Visit Diagnoses:Elevated LFTs [R79.89] Anemia of chronic disease [D63.8] Elevated sed rate [R70.0] Elevated C-reactive protein (CRP) [R79.82] Vitamin D deficiency [E55.9] Vitamin B12 deficiency [E53.8] Screening-pulmonary TB [Z11.1] Order(s):COMP METABOLIC PANEL [SQCMP] Order #: [id number] FUTURE CBC [SQCBC] Order #: [id number] FUTURE SED RATE WESTERGREN [SQWSR] Order #: [id number] FUTURE C-REACTIVE PROTEIN (CRP) [SQCRP] Order #: [id number] FUTURE VITAMIN D 25 HYDROXY [SQVITD] Order #: [id number] FUTURE VITAMIN B12 BLOOD [SQB12] Order #: [id number] FUTURE BLOOD TB SCREEN [SQINFTBP] Order #: [id number] FUTURE Prescriptions as of 05/29/2023 - methotrexate 2.5 mg tablet TAKE 10 TABS ONCE A WEEK with food. No alcohol. Hold if on antibiotics or ill. Hold 1-2weeks after vaccines. - VITAMIN B COMPLEX ORAL Take by mouth. - methotrexate sodium 25 mg/mL soln Sq 1ml injection once a week. No alcohol. Hold if on antibiotics or ill. - Syringe with Needle, Disp, (BD SYRINGE) 1 mL 25 gauge x 5/8 To use with Methotrexate Sodium injection. 1ml weekly SQ - sulfaSALAzine EC (AZULFIDINE EN-TABS) 500 mg EC tablet Take 1 tablet by mouth three times daily. - leflunomide (ARAVA) 20 mg tablet Take 1tab daily by mouth with food. Hold in on antibiotics or ill. - folic acid 1 mg tablet Take 2 tablets by mouth once daily. - predniSONE (DELTASONE) 5 mg tablet Day 1=6tabs with food, Day 2=5tabs, Day 3=4tabs, Day 4=3tabs, Day 5=2tabs, Day 6=1tab daily thereafter, No NSAIDs on med - upadacitinib (RINVOQ) Tb24 tablet Take 1 tablet (15 mg) by mouth once daily. Swallow whole; DO NOT crush, chew, or open. Hold if on antibiotics or ill. Hold 1weeks after vaccines. - gabapentin (NEURONTIN) 300 mg capsule TAKE 10 CAPSULES BY MOUTH DIVIDED THROUGHOUT THE DAY - docusate sodium (COLACE) 100 mg capsule Take 1 capsule by mouth twice daily as needed for constipation. - VITAMIN E ORAL Take by mouth. - simvastatin (ZOCOR) 20 mg tablet Take 20 mg by mouth once daily. - metoprolol succinate ER (TOPROL XL) 25 mg 24 hr tablet Take 25 mg by mouth once daily. - cloNIDine HCl (CATAPRES) 0.1 mg tablet Take 0.1 mg by mouth twice daily. - lidocaine (LIDODERM) 5 % apply 1 patch to the aRM once daily IN THE AFTERNOON - levothyroxine (SYNTHROID) 50 mcg tablet take 1 tablet by mouth once daily ALONG WITH 200 MG TABLET FOR TOTAL OF 250 MG - levothyroxine (SYNTHROID) 200 mcg tablet Take 200 mcg by mouth once daily. - JARDIANCE 25 mg tablet Take 25 mg by mouth once daily. - VENTOLIN HFA 90 mcg/actuation inhaler inhale 2 puffs by mouth and INTO THE LUNGS every 4 hours if needed - insulin aspart U-100 (NOVOLOG) 100 unit/mL Inject subcutaneously. - insulin glargine (LANTUS SOLOSTAR, BASAGLAR KWIKPEN) 100 unit/mL (3 mL) Inject 50 Units subcutaneously. - irbesartan (AVAPRO) 150 mg tablet Take 150 mg by mouth once daily. - FLUoxetine (PROZAC) 20 mg capsule Take 1 capsule by mouth once daily. - insulin needles, DISPOSABLE, (BD INSULIN PEN NEEDLE UF) 31 gauge x 5/16 ndle Substitute equivalent syringe/needles for weekly sq methotrexate - Cholecalc (more content not included)... Normal [facility] 25(OH)D3 SerPl-mCncon 2022 25-hydroxyvitamin D3 [Mass/Vol] 41.5 ng/mL Normal 31.0-80.0 [facility] Comment on above: Order Comment: Specdipti sanchez Type: BLOOD SPECIMEN Ordering Facility[facility] Address: [address] [place] [id number] Result Comment: Clas sification of 25 [place] Vitamin D status: Deficiency/Insufficiency: < or = 30 ng/ml. Sufficiency/Optimal Levels: 31-80 ng/mL Toxicity: > 100 ng/mL. Test performed by chemiluminescent immunoassay. Performed By: #### 1 988, 2132-06 #### [facility] CLIA [id number] [address] OF [facility] BLOOD TB SCREENon 05-24-2023 M. tuberculosis tuberculin stim IFN-g Ql (Bld) Negative Normal [facility] Comment on above: Order Comment: Vivek sanchez Type: BLOOD SPECIMEN Ordering Facility: [facility] Address: [address] [place] [address] Performed By: #### 1 988, 2132-06 #### [facility] CLIA [id number] [address] [place] [address] [place] MITOGEN MINUS NIL >9.93 Normal >=0.50 [facility] Comment on above: Order Comment: Speci laura Type: BLOOD SPECIMEN Ordering Facility: [facility] Address: [address] [place], [place] [address] Performed By: #### 1 988, 2132-06 #### [facility] CLIA [id number] [address] [place] [address] [place] TB GAMMA INTERPRETATION Infection with M. tuberculosis complex is unlikely. If latent tuberculosis infection is highly suspected, a negative result does not rule out the infection. Specimens from immunocompromised patients and those <5 years of age may show false negative results. In case of a contact investigation, please repeat 8-12 weeks after a known exposure. Normal [facility] Comment on above: Order Comment: Vivek sanchez Type: BLOOD SPECIMEN Ordering Facility: [facility] Address: [address] [place], [place] [address] Performed By: #### 1 9805-06, 2132-06 #### [facility] CLIA [id number] [address] [place] [address] [place] TB NIL 0.07 IU/mL Normal <=8.00 [facility] Comment on above: Order Comment: Mark Anthonyi laura Type: BLOOD SPECIMEN Ordering Facility: [facility] Address: [address] [place], [place] [address] Performed By: #### 1 988, 2132-06 #### [facility] CLIA [id number] [address] [place] [address] [place] TB1 AG MINUS NIL 0.03 IU/mL Normal <0.35 [facility] Comment on above: Order Comment: Mark Anthonyi men Type: BLOOD SPECIMEN Ordering Facility: [facility] Address: [address] [place], [place] [address] Performed By: #### 1 988, 2132-06 #### [facility] CLIA [id number] [address] [place] [address] [place] TB2 AG MINUS NIL 0.05 IU/mL Normal <0.35 [facility] Comment on above: Order Comment: Speci men Type: BLOOD SPECIMEN Ordering Facility: [facility] Address: [place] [address] Performed By: #### 1 9805-06, 2132-06 #### [facility] CLIA [id number] [address] [place] [address] [place] CBC panel Auto (Bld)on 05-24 Erythrocyte distribution width (RBC) [Ratio] 13.3 % Normal 11.5-15.0 [facility] Comment on above: Order Comment: Speci men Type: BLOOD SPECIMEN Ordering Facility: [facility] Address: [address] [place] [address] Performed By: #### 1 988, 2132-06 #### [facility] CLIA [id number] [address] [place] [address] [place] Hematocrit (Bld) [Volume fraction] 40.3 % Normal 36.0-46.0 [facility] Comment on above: Order Comment: Speci men Type: BLOOD SPECIMEN Ordering Facility: [facility] Address: [place] Performed By: #### 1 988, 2132-06 #### [facility] CLIA [id number] [address] [place] [address] [place] Hemoglobin (Bld) [Mass/Vol] 13.8 g/dL Normal 11.5-15.5 [facility] Comment on above: Order Comment: Speci men Type: BLOOD SPECIMEN Ordering Facility: [facility] Address: [address] [place] [phone] Performed By: #### 1 988, 2132-06 #### [facility] CLIA [id number] [address] [place] [id number] [place] MCH (RBC) [Entitic mass] 30.9 pg Normal 26.0-34.0 [facility] Comment on above: Order Comment: Speci men Type: BLOOD SPECIMEN Ordering Facility: [facility] Address: [address] [place] [address] Performed By: #### 1 988, 2132-06 #### [facility] CLIA [id number] [address] [place] [address] [place] MCHC (RBC) [Mass/Vol] 34.2 g/dL Normal 30.5-36.0 [facility] Comment on above: Order Comment: Speci men Type: BLOOD SPECIMEN Ordering Facility: [facility] Address: [address] Performed By: #### 1 988, 2132-06 #### [facility] CLIA [id number] [address] [place] [address] [place] MCV (RBC) [Entitic vol] 90.2 fL Normal 80.0-100.0 [facility] Comment on above: Order Comment: Speci men Type: BLOOD SPECIMEN Ordering Facility: [facility] Address: [address] Performed By: #### 1 988, 2132-06 #### [facility] CLIA [id number] [address] [place] [address] [place] Nucleated RBC (Bld) [#/Vol] 10*3/uL Normal <0.01 [facility] Comment on above: Order Comment: Speci men Type: BLOOD SPECIMEN Ordering Facility: [facility] Address: [address] [place] [address] Performed By: #### 1 988, 2132-06 #### [facility] CLIA [id number] [address] [place] [address] [place] Platelet mean volume (Bld) [Entitic vol] 9.5 fL Normal 9.0-12.7 [facility] Comment on above: Order Comment: Speci men Type: BLOOD SPECIMEN Ordering Facility: [facility] Address: [address] [place] [address] Performed By: #### 1 988-5, 2132-06 #### [facility] CLIA [id number] [address] [place] [address] [place] Platelets (Bld) [#/Vol] 249 10*3/uL Normal 150-400 [facility] Comment on above: Order Comment: Speci men Type: BLOOD SPECIMEN Ordering Facility: [facility] Address: [address] [place] [address] Performed By: #### 1 988-5, 2132-06 #### [facility] CLIA [id number] [address] [place] [address] [place] RBC (Bld) [#/Vol] 4.47 10*6/uL Normal 3.90-5.20 [facility] Comment on above: Order Comment: Speci men Type: BLOOD SPECIMEN Ordering Facility: [facility] Address: [address] [place] [address] Performed By: #### 1 988-, 2132-06 #### [facility] CLIA [id number] [address] [place] [address] [place] WBC (Bld) [#/Vol] 7.18 10*3/uL Normal 3.70-11.00 [facility] Comment on above: Order Comment: Speci men Type: BLOOD SPECIMEN Ordering Facility: [facility] Address: [address] [place] [address] Performed By: #### 1 988-5, 2132-06 #### [facility] CLIA [id number] [address] [place] [address] [place] CRP SerPl-mCncon 05-24-2023 CRP [Mass/Vol] 0.9 mg/dL High <0.9 [facility] Comment on above: Order Comment: Speci men Type: BLOOD SPECIMEN Ordering Facility: [facility] Address: [address] [place] [address] Performed By: #### 1 988, 2132-06 #### [facility] CLIA [id number] [address] [place] [address] [place] Comprehensive metabolic 2000 panelon 05-24-2023 Albumin [Mass/Vol] 4.4 g/dL Normal 3.9-4.9 [facility] Comment on above: Order Comment: Speci men Type: BLOOD SPECIMEN Ordering Facility: [facility] Address: [address] Performed By: #### 1 988, 2132-06 #### [facility] CLIA [id number] [address] [place] [address] [place] ALP [Catalytic activity/Vol] 84 U/L Normal 34-123 [facility] Comment on above: Order Comment: Speci men Type: BLOOD SPECIMEN Ordering Facility: [facility] Address: [address] [place] [address] Performed By: #### 1 988, 2132-06 #### [facility] CLIA [id number] [address] [place] [address] [place] ALT [Catalytic activity/Vol] 27 U/L Normal 7-38 [facility] Comment on above: Order Comment: Speci men Type: BLOOD SPECIMEN Ordering Facility: [facility] Address: [address] [place] [address] Performed By: #### 1 988-, 2132-06 #### [facility] CLIA [id number] [address] [place] [address] [place] Anion gap [Moles/Vol] 10 mmol/L Normal 9-18 [facility] Comment on above: Order Comment: Speci men Type: BLOOD SPECIMEN Ordering Facility: [facility] Address: [address] [place] [address] Performed By: #### 1 988-5, 2132-06 #### [facility] CLIA [id number] [address] [place] [address] [place] AST [Catalytic activity/Vol] 23 U/L Normal 13-35 [facility] Comment on above: Order Comment: Speci men Type: BLOOD SPECIMEN Ordering Facility: [facility] Address: [address] Performed By: #### 1 988, 2132-06 #### [facility] CLIA [id number] [address] [place] [address] [place] Bilirubin [Mass/Vol] 0.5 mg/dL Normal 0.2-1.3 [facility] Comment on above: Order Comment: Speci men Type: BLOOD SPECIMEN Ordering Facility: [facility] Address: [address] [place] [address] Performed By: #### 1 988, 2132-06 #### [facility] CLIA [id number] [address] [place] [address] [place] Calcium [Mass/Vol] 9.0 mg/dL Normal 8.5-10.2 [facility] Comment on above: Order Comment: Speci men Type: BLOOD SPECIMEN Ordering Facility: [facility] Address: [address] Performed By: #### 1 988, 2132-06 #### [facility] CLIA [id number] [address] [place] [id number] [place] Chloride [Moles/Vol] 102 mmol/L Normal 97-105 [facility] Comment on above: Order Comment: Speci men Type: BLOOD SPECIMEN Ordering Facility: [facility] Address: [address] Performed By: #### 1 9885, 2132-06 #### [facility] CLIA [id number] [address] [place] [address] [place] CO2 [Moles/Vol] 28 mmol/L Normal 22-30 [facility] Comment on above: Order Comment: Vivek sanchez Type: BLOOD SPECIMEN Ordering Facility: [facility] Address: [address] [place] [address] Performed By: #### 1 988, 2132-06 #### [facility] CLIA [id number] [facility] [place] [address] [place] Creatinine [Mass/Vol] 0.65 mg/dL Normal 0.58-0.96 [facility] Comment on above: Order Comment: Vivek sanchez Type: BLOOD SPECIMEN Ordering Facility: [facility] Address: [address] [place] [address] Performed By: #### 1 988, 2132-06 #### [facility] CLIA [id number] [address] [place] [address] [place] Creatinine and Glomerular filtration rate.predicted panel (S/P/Bld) 99 mL/min/1.73m??? Normal >=60 [facility] Comment on above: Order Comment: Vivek sanchez Type: BLOOD SPECIMEN Ordering Facility: [facility] Address: [address] [place] [address] Result Comment: Carrie mated Glomerular Filtration Rate (eGFR) is calculated using the 2020 CKD-EPI creatinine equation. This equation utilizes serum creatinine, sex, and age as parameters. The creatinine assay has traceable calibration to isotope dilution-mass spectrometry. Refer to KDIGO guidelines for clinical interpretation. In patients with unstable renal function, e.g. those with acute kidney injury, the eGFR may not accurately reflect actual GFR. Performed By: #### 1 988, 2132-06 #### [facility] CLIA [id number] [address] [place] [address] [place] Glucose [Mass/Vol] 106 mg/dL High 74-99 [facility] Comment on above: Order Comment: Vivek sanchez Type: BLOOD SPECIMEN Ordering Facility: [facility] Address: [address] [place] [address] Result Comment: The [place] [employer] (ADA) provides guidance for cutoff values for fasting glucose and random glucose. The ADA defines fasting as no caloric intake for at least 8 hours. Fasting plasma glucose results between 100 to 125 mg/dL indicate increased risk for diabetes (prediabetes). Fasting plasma glucose results greater than or equal to 126 mg/dL meet the criteria for diagnosis of diabetes. In the absence of unequivocal hyperglycemia, results should be confirmed by repeat testing. In a patient with classic symptoms of hyperglycemia or hyperglycemic crisis, random plasma glucose results greater than or equal to 200 mg/dL meet the criteria for diagnosis of diabetes. Reference: Standards of Medical Care in Diabetes 2016, [place] [employer]. Diabetes Care. 2016.39(Suppl 1). Performed By: #### 1 988, 2132-06 #### [facility] CLIA [id number] [facility] [place] [address] [place] Potassium [Moles/Vol] 3.4 mmol/L Low 3.7-5.1 [facility] Comment on above: Order Comment: Speci men Type: BLOOD SPECIMEN Ordering Facility: [facility] Address: [address] [place], [place] [address] Performed By: #### 1 988, 2132-06 #### [facility] CLIA [id number] [address] [place] [address] [place] Protein [Mass/Vol] 8.2 g/dL High 6.3-8.0 [facility] Comment on above: Order Comment: Speci men Type: BLOOD SPECIMEN Ordering Facility: [facility] Address: [address] [place] [address] Performed By: #### 1 988, 2132-06 #### [facility] CLIA [id number] [address] [place] [address] [place] Sodium [Moles/Vol] 140 mmol/L Normal 136-144 [facility] Comment on above: Order Comment: Speci men Type: BLOOD SPECIMEN Ordering Facility: [facility] Address: [address] Performed By: #### 1 988-5, 2132-06 #### [facility] CLIA [id number] [address] [place] [address] [place] Urea nitrogen [Mass/Vol] 13 mg/dL Normal 7-21 [facility] Comment on above: Order Comment: Speci men Type: BLOOD SPECIMEN Ordering Facility[facility] Address: [address] [place] [address] Performed By: #### 1 988-5, 2132-06 #### [facility] CLIA [id number] [address] [place] [address] [place] ESR Westergren method (Bld) [Velocity]on 05-24-2023 ESR (Bld) [Velocity] 35 mm/h High 0-20 [facility] Comment on above: Order Comment: Speci men Type: BLOOD SPECIMEN Ordering Facility[facility] Address: [address] [place] [address] Performed By: #### 4 537-7 #### [facility] IA [id number] [address] [place] [address] [place] Vit B12 SerPl-ncon 05-24- 023 Cobalamin (Vitamin B12) [Mass/Vol] 1074 pg/mL Normal 232-1245 [facility] Comment on above: Order Comment: Speci men Type: BLOOD SPECIMEN Ordering Facility[facility] Address: [address] [place] [address] Performed By: #### 1 988-5, 2132-06 #### [facility] IA [id number] [address] [place] [address] [place] CNPTiny 03-10-2023 CNPN Telephone (ORQ) ELSA CATALAN ([id number]) 1960 F Date Time Provider Department 03/10/23 PEPE CARTER During your visit today, we recorded the following information about you: Celia Subramanian 03/10/2023 1:04 PM Signed Elsa Catalan is calling Pepe Carter MD today regarding methotrexate. Pt was advised by her pharmacy that all the pharmacies are having issues getting this in stock. Requesting alternative be sent to the pharmacy. Patient has been identified by name and birthdate. Duration of symptoms: N/A Person calling: self Call patient at: on cell [phone] (home) [phone] (cell) Was an appointment scheduled: No Closing statement: Results or non-symptom based questions: Thank you for calling [facility], your call will be returned within the next business day. Celia Carter MD 03/10/2023 5:12 PM Signed Please call patient Yes the sq methotrexate is on back order for many pharmacies May see if [facility] has medication, may send script if needed. Or may temporarily take oral methotrexate. Notify office if agreeable for oral methotrexate and may send temporary oral methotrexate while sq injection unavailable Thank you. Izabela Caruso MA 03/13/2023 10:24 AM Signed Patient agreeable to oral Methotrexate, uses [facility] in [place], [place]. Pepe Carter MD 03/13/2023 5:00 PM Signed Notify patient oral methotrexate sent as requested Thank you. Patient's request for medication is as follows: Requested Prescriptions Signed Prescriptions Disp Refills methotrexate 2.5 mg tablet 50 tablet 3 Sig: TAKE 10 TABS ONCE A WEEK with food. No alcohol. Hold if on antibiotics or ill. Hold 1-2weeks after vaccines. Authorizing Provider: PEPE CARTER Prescription(s) as above. Please process accordingly. MD Jenni Conroy RN 03/13/2023 7:52 PM Signed -call to pt and notified of script below. -no further action required Allergies As of Date: 03/10/2023 Noted Allergy Reaction CIPROFLOXACIN 12/23/2016 2 - Rash Anesthetics [Other] 12/06/2002 Comments: problems awakening AND gi upset with general INDOMETHACIN 12/06/2002 Comments: (Indocin) extremely high temperature elevation PENICILLIN G 12/06/2002 Comments: rash PROPOXYPHENE 12/06/2002 Comments: pt. not sure Date Reviewed: 02/20/2023 Reviewed by: Pepe Carter MD - Fully Assessed Reason for Visit: Medication Problem [65] Primary Visit Diagnosis:Rheumatoid arthritis of multiple sites without organ or system involvement with positive rheumatoid factor (HCC) [M05.79] Order(s):methotrexate 2.5 mg tabletTAKE 10 TABS ONCE A WEEK with food. No alcohol. Hold if on antibiotics or ill. Hold 1-2weeks after vaccines.Disp: 50 tabletRfl: 3 Prescriptions as of 03/13/2023 - methotrexate 2.5 mg tablet TAKE 10 TABS ONCE A WEEK with food. No alcohol. Hold if on antibiotics or ill. Hold 1-2weeks after vaccines. - VITAMIN B COMPLEX ORAL Take by mouth. - methotrexate sodium 25 mg/mL soln Sq 1ml injection once a week. No alcohol. Hold if on antibiotics or ill. - Syringe with Needle, Disp, (BD SYRINGE) 1 mL 25 gauge x 5/8 To use with Methotrexate Sodium injection. 1ml weekly SQ - sulfaSALAzine EC (AZULFIDINE EN-TABS) 500 mg EC tablet Take 1 tablet by mouth three times daily. - leflunomide (ARAVA) 20 mg tablet Take 1tab daily by mouth with food. Hold in on antibiotics or ill. - folic acid 1 mg tablet Take 2 tablets by mouth once daily. - predniSONE (DELTASONE) 5 mg tablet Day 1=6tabs with food, Day 2=5tabs, Day 3=4tabs, Day 4=3tabs, Day 5=2tabs, Day 6=1tab daily thereafter, No NSAIDs on med - upadacitinib (RINVOQ) Tb24 tablet Take 1 tablet (15 mg) by mouth once daily. Swallow whole; DO NOT crush, chew, or open. Hold if on antibiotics or ill. Hold 1weeks after vaccines. - gabapentin (NEURONTIN) 300 mg capsule TAKE 10 CAPSULES BY MOUTH DIVIDED THROUGHOUT THE DAY - docusate sodium (COLACE) 100 mg capsule Take 1 capsule by mouth twice daily as needed for constipation. - VITAMIN E ORAL Take by mouth. - simvastatin (ZOCOR) 20 mg tablet Take 20 mg by mouth once daily. - metoprolol succinate ER (TOPROL XL) 25 mg 24 hr tablet Take 25 mg by mouth once daily. - cloNIDine HCl (CATAPRES) 0.1 mg tablet Take 0.1 mg by mouth twice daily. - lidocaine (LIDODERM) 5 % apply 1 patch to the aRM once daily IN THE AFTERNOON - levothyroxine (SYNTHROID) 50 mcg tablet take 1 tablet by mouth once daily ALONG WITH 200 MG TABLET FOR TOTAL OF 250 MG - levothyroxine (SYNTHROID) 200 mcg tablet Take 200 mcg by mouth once daily. - JARDIANCE 25 mg tablet Take 25 mg by mouth once daily. - VENTOLIN HFA 90 mcg/actuation inhaler inhale 2 puffs by mouth and INTO THE LUNGS every 4 hours if needed - insulin aspart U-100 (NOVOLOG) 100 unit/mL Inject subcutaneously. - insulin glargine (LANTUS STEVO BARRERA (more content not included)... Normal [facility] CNOVon 02-20-2023 CNOV Office Visit (CHAD ) ELSA CATALAN ([id number]) 1960 F Date Time Provider Department 02/20/23 9:40 AM PEPE CARTER During your visit today, we recorded the following information about you: Pulse Blood pressure Weight 81/minute 158/81 65.1 kg Pepe Carter MD 02/20/2023 9:13 AM Signed May apply over the counter arthritis cream (biofreeze, icy hot, asper cream, tiger balm, capsacin, etc.) to painful joints up to four times a day. Avoid contact with eyes. May take ES acetaminophen 500mg every 4-6hours for joint pain. Do not exceed 2000mg /day. Increase calcium intake Increase potassium intake Methotrexate 1ml sq injection food every other a week (HOLD 1-2weeks after vaccines) Do not drink alcohol while taking methotrexate Have bloodwork every 8-12weeks for monitoring while taking Methotrexate Please take folic acid 1mg tab:Take 1tab by mouth daily OFF Hydroxychloroquine/Plaq uenil SSZ 500mg tab 3times a day off humira Rinvoq daily by mouth arava/leflunamide daily with food hold methotrexate/rinvoq/jovan va if on antibiotics or if you have any signs/symptoms of infection. wear wrist splints at night and as needed for carpal tunnel syndrome may take prednisone for flares No NSAIDs (ex. motrin, etc.)on pred. eyedrops as instructed No response lyrica gabapentin/neurontin 300mg 3tab 3times a day see hand ortho for trigger finger injection/release/hand/ wrist/elbow pain nonfasting bloodwork as scheduled Thank you. Moisturizing treatments Stimulating saliva -- Simply sucking on sugarless candy or dried fruit slices (eg, peaches or nectarines) can stimulate the flow of saliva in many patients. [place] flavored sugarless tablets and sugar-free chewing gum may also be helpful. In some patients, medications such as pilocarpine or cevimeline are given to increase saliva production. Replacing secretions in the mouth -- Sipping on water throughout the day is an easy and effective treatment of dry mouth for many patients. The water does not have to be swallowed. It can be rinsed around the mouth and then spit out. If this is not effective, an artificial saliva product (spray or lozenge) may be helpful. If painful gums are a problem, a gel that relieves dry mouth (such as Oral Balance) can be helpful. Avoiding cavities -- Patients with SS are at increased risk for dental cavities. SS patients should perform careful dental hygiene, ideally brushing and dental flossing after eating meals and snacks. Patients should visit their dentist at least every six months. Toothpaste designed specifically for patients with dry mouth is available (eg, Biotene?, Orajel?). These lack the detergents that are present in many types of toothpaste, which can irritate a dry mouth. Toothbrushes with special features that help clean between the teeth and electric toothbrushes may also help to keep the teeth clean. Patients should use a toothpaste with fluoride or a special fluoride rinse or varnish. We recommend a fluoride treatment with a dentist or dental hygienist after each cleaning. Since the dentist may not stock this treatment, patients should contact the dental office prior to the appointment. Dry eye -- Use of a humidifier or moist washcloth over the eyes may provide some relief for dry eyes. Most patients also use an artificial tear drop. Many different solutions are available; a clinician can recommend an appropriate choice based on an individual's pattern of dryness and fluid production in the eye. Some patients are sensitive to the preservatives found in artificial tear preparations. If burning or itching occurs, a brand with a non-irritating preservative may be tried. Alternately, a preservative-free variety can be used. Eye drops without preservative come in small, single-dose containers that may be hard for some people with joint and/or vision problems. A prescription eye drop containing cyclosporine is also available (Restasis?). Some patients use an eye ointment at night. It is important to use only about 1/8 (3 mm) of the ointment because overuse can block the ducts and lead to a condition called blepharitis (see Blepharitis (eyelid inflammation) below). Preserving natural tears -- Various measures can be used to preserve a patient's own tears. Rueda can be fitted on the sides of glasses, helping to protect the eye from air and wind, reducing evaporation of tears. Goggles or wrap-around sunglasses serve a similar function. Another approach is a simple surgical procedure called punctal occlusion. In this procedure, an biometrics experimentalist inserts small plugs into the tear ducts in the corner of the lower eyelid, nearest the nose, where the tears normally collect and drain into the nasal passages. By blocking this duct, the patient's tears stay on the eye longer. Th (more content not included)... Normal [facility] Elysia 02-18-2023 RENEE Telephone (CHAD) ELSA CATALAN ([id number]) 1960 F Date Time Provider Department 02/18/23 PEPE CARTER During your visit today, we recorded the following information about you: Pepe Carter MD 02/18/2023 5:29 PM Signed Please Call patient if MyChart note not read to review results/released to My Chart if tests completed at [facility]: Improved/mildly high glucose- care per primary care provider/endocrinology. Rest of labs much improved and stable. Continue same vitamin D intake with food. Recheck nonfasting labs in 3months.The orders have been placed. Happy to further review and discuss at follow up visit. Continue rest of treatment plan per instructions at last office visit. Thank you. 02/16/23 high glucose 260(328), esr 27 (60);normal rest of cmp, cbc, crp<0.3, (3), vitamin D 42.3; Sherrill Ruelas, RN 02/20/2023 9:56 AM Signed Call to pt. Transferred for labs. . Id'd by name and . States understanding of the below, denies any questions or concerns, agrees with plan of care and will follow. Allergies As of Date: 02/18/2023 Noted Allergy Reaction CIPROFLOXACIN 12/23/2016 2 - Rash Anesthetics [Other] 12/06/2002 Comments: problems awakening AND gi upset with general INDOMETHACIN 12/06/2002 Comments: (Indocin) extremely high temperature elevation PENICILLIN G 12/06/2002 Comments: rash PROPOXYPHENE 12/06/2002 Comments: pt. not sure Date Reviewed: 08/11/2022 Reviewed by: Pepe Carter MD - Fully Assessed Reason for Visit: Results [95] Primary Visit Diagnosis:Rheumatoid arthritis of multiple sites without organ or system involvement with positive rheumatoid factor (HCC) [M05.79] Other Visit Diagnoses:Elevated LFTs [R79.89] Anemia of chronic disease [D63.8] Elevated C-reactive protein (CRP) [R79.82] Elevated sed rate [R70.0] Vitamin D deficiency [E55.9] Vitamin B12 deficiency [E53.8] Screening-pulmonary TB [Z11.1] Order(s):COMP METABOLIC PANEL [SQCMP] Order #: [id number] FUTURE CBC [SQCBC] Order #: [id number] FUTURE SED RATE WESTERGREN [SQWSR] Order #: [id number] FUTURE C-REACTIVE PROTEIN (CRP) [SQCRP] Order #: [id number] FUTURE VITAMIN D 25 HYDROXY [SQVITD] Order #: [id number] FUTURE VITAMIN B12 BLOOD [SQB12] Order #: [id number] FUTURE BLOOD TB SCREEN [SQINFTBP] Order #: [id number] FUTURE Prescriptions as of 02/20/2023 - VITAMIN B COMPLEX ORAL Take by mouth. - methotrexate sodium 25 mg/mL soln Sq 1ml injection once a week. No alcohol. Hold if on antibiotics or ill. - Syringe with Needle, Disp, (BD SYRINGE) 1 mL 25 gauge x 5/8 To use with Methotrexate Sodium injection. 1ml weekly SQ - sulfaSALAzine EC (AZULFIDINE EN-TABS) 500 mg EC tablet Take 1 tablet by mouth three times daily. - leflunomide (ARAVA) 20 mg tablet Take 1tab daily by mouth with food. Hold in on antibiotics or ill. - folic acid 1 mg tablet Take 2 tablets by mouth once daily. - predniSONE (DELTASONE) 5 mg tablet Day 1=6tabs with food, Day 2=5tabs, Day 3=4tabs, Day 4=3tabs, Day 5=2tabs, Day 6=1tab daily thereafter, No NSAIDs on med - upadacitinib (RINVOQ) Tb24 tablet Take 1 tablet (15 mg) by mouth once daily. Swallow whole; DO NOT crush, chew, or open. Hold if on antibiotics or ill. Hold 1weeks after vaccines. - gabapentin (NEURONTIN) 300 mg capsule TAKE 10 CAPSULES BY MOUTH DIVIDED THROUGHOUT THE DAY - docusate sodium (COLACE) 100 mg capsule Take 1 capsule by mouth twice daily as needed for constipation. - VITAMIN E ORAL Take by mouth. - simvastatin (ZOCOR) 20 mg tablet Take 20 mg by mouth once daily. - metoprolol succinate ER (TOPROL XL) 25 mg 24 hr tablet Take 25 mg by mouth once daily. - cloNIDine HCl (CATAPRES) 0.1 mg tablet Take 0.1 mg by mouth twice daily. - lidocaine (LIDODERM) 5 % apply 1 patch to the aRM once daily IN THE AFTERNOON - levothyroxine (SYNTHROID) 50 mcg tablet take 1 tablet by mouth once daily ALONG WITH 200 MG TABLET FOR TOTAL OF 250 MG - levothyroxine (SYNTHROID) 200 mcg tablet Take 200 mcg by mouth once daily. - JARDIANCE 25 mg tablet Take 25 mg by mouth once daily. - VENTOLIN HFA 90 mcg/actuation inhaler inhale 2 puffs by mouth and INTO THE LUNGS every 4 hours if needed - insulin aspart U-100 (NOVOLOG) 100 unit/mL Inject subcutaneously. - insulin glargine (LANTUS SOLOSTAR, BASAGLAR KWIKPEN) 100 unit/mL (3 mL) Inject 50 Units subcutaneously. - irbesartan (AVAPRO) 150 mg tablet Take 150 mg by mouth once daily. - FLUoxetine (PROZAC) 20 mg capsule Take 1 capsule by mouth once daily. - insulin needles, DISPOSABLE, (BD INSULIN PEN NEEDLE UF) 31 gauge x 5/16 ndle Substitute equivalent syringe/needles for weekly sq methotrexate - Cholecalciferol, Vitamin D3, 5,000 unit Tab Take 1 tablet by mouth once daily. Problem List As Of Date 02/18/2023 Noted Resolved CTS (carpal tunnel syndrome) [G56.00] 10/07/2011 Neck pain [M54.2] 0 (more content not included)... Normal [facility] 25(OH)D3 Sarah 2022 25-hydroxyvitamin D3 [Mass/Vol] 42.3 ng/mL Normal 31.0-80.0 [facility] Comment on above: Order Comment: Speci men Type: BLOOD SPECIMEN Ordering Facility: [facility] Address: [facility] [address], [place] [address] Result Comment: Clas sification of 25 [place] Vitamin D status: Deficiency/Insufficiency: < or = 30 ng/ml. Sufficiency/Optimal Levels: 31-80 ng/mL Toxicity: > 100 ng/mL. Test performed by chemiluminescent immunoassay. Performed By: #### 1 989-3 #### [facility] CLIA [id number] [address] [place] [address] [place] CBC panel Auto (Bld)on 02-16 Erythrocyte distribution width (RBC) [Ratio] 13.5 % Normal 11.5-15.0 [facility] Comment on above: Order Comment: Speci men Type: BLOOD SPECIMEN Ordering Facility: [facility] Address: [address] Performed By: #### 1 988, 2132-06 #### [facility] [place] [id number] [address] [place] [address] [place] Hematocrit (Bld) [Volume fraction] 42.6 % Normal 36.0-46.0 [facility] Comment on above: Order Comment: Speci men Type: BLOOD SPECIMEN Ordering Facility: [facility] Address: [address] [place], [place] [address] Performed By: #### 1 988, 2132-06 #### [facility] [place] [id number] [address] [place] [address] [place] Hemoglobin (Bld) [Mass/Vol] 14.3 g/dL Normal 11.5-15.5 [facility] Comment on above: Order Comment: Speci men Type: BLOOD SPECIMEN Ordering Facility: [facility] Address: [address] [place] [address] Performed By: #### 1 988, 2132-06 #### [facility] [place] [id number] [address] [place] [address] [place] MCH (RBC) [Entitic mass] 29.3 pg Normal 26.0-34.0 [facility] Comment on above: Order Comment: Speci men Type: BLOOD SPECIMEN Ordering Facility: [facility] Address: [address] [place] [address] Performed By: #### 1 988-5, 2132-06 #### [facility] [place] [id number] [address] [place] [address] [place] MCHC (RBC) [Mass/Vol] 33.6 g/dL Normal 30.5-36.0 [facility] Comment on above: Order Comment: Speci men Type: BLOOD SPECIMEN Ordering Facility: [facility] Address: [address] [place] [address] Performed By: #### 1 988-, 2132-06 #### [facility] CLIA [id number] [address] [place] [address] [place] MCV (RBC) [Entitic vol] 87.3 fL Normal 80.0-100.0 [facility] Comment on above: Order Comment: Speci men Type: BLOOD SPECIMEN Ordering Facility: [facility] Address: [address] [place], [place] [address] Performed By: #### 1 988, 2132-06 #### [facility] CLIA [id number] [address] [place] [address] [place] Nucleated RBC (Bld) [#/Vol] 10*3/uL Normal <0.01 [facility] Comment on above: Order Comment: Speci men Type: BLOOD SPECIMEN Ordering Facility: [facility] Address: [address] [place], [place] [address] Performed By: #### 1 988, 2132-06 #### [facility] CLIA [id number] [address] [place] [address] [place] Platelet mean volume (Bld) [Entitic vol] 9.1 fL Normal 9.0-12.7 [facility] Comment on above: Order Comment: Speci men Type: BLOOD SPECIMEN Ordering Facility: [facility] Address: [address] [place], [place] [address] Performed By: #### 1 988-, 2132-06 #### [facility] CLIA [id number] [address] [id number] [address] [place] Platelets (Bld) [#/Vol] 310 10*3/uL Normal 150-400 [facility] Comment on above: Order Comment: Speci men Type: BLOOD SPECIMEN Ordering Facility: [facility] Address: [address] [place] [address] Performed By: #### 1 988-5, 2132-06 #### [facility] CLIA [id number] [address] [place] [address] [place] RBC (Bld) [#/Vol] 4.88 10*6/uL Normal 3.90-5.20 [facility] Comment on above: Order Comment: Speci men Type: BLOOD SPECIMEN Ordering Facility: [facility] Address: [address] [place], [place] [address] Performed By: #### 1 988-5, 2132-06 #### [facility] CLIA [id number] [address] [place] [address] [place] WBC (Bld) [#/Vol] 5.94 10*3/uL Normal 3.70-11.00 [facility] Comment on above: Order Comment: Speci men Type: BLOOD SPECIMEN Ordering Facility: [facility] Address: [address] [place], [place] [address] Performed By: #### 1 988-5, 2132-06 #### [facility] CLIA [id number] [address] [place] [address] [place] CRP SerPl-mCncon 02-16-2023 CRP [Mass/Vol] mg/L Normal <0.9 [facility] Comment on above: Order Comment: Speci men Type: BLOOD SPECIMEN Ordering Facility: [facility] Address: [address] [place] [address] Performed By: #### 1 988-5, 2132-06 #### [facility] CLIA [id number] [address] [place] [id number] [place] Comprehensive metabolic 2000 panelon 02-16-2023 Albumin [Mass/Vol] 4.6 g/dL Normal 3.9-4.9 [facility] Comment on above: Order Comment: Speci men Type: BLOOD SPECIMEN Ordering Facility: [facility] Address: [address] [place] [address] Performed By: #### 1 988-5, 2132-06 #### [facility] CLIA [id number] [address] [place] [address] [place] ALP [Catalytic activity/Vol] 80 U/L Normal 34-123 [facility] Comment on above: Order Comment: Speci men Type: BLOOD SPECIMEN Ordering Facility: [facility] Address: [address] [place], [place] [address] Performed By: #### 1 988-5, 2132-06 #### [facility] CLIA [id number] [address] [place] [address] [place] ALT [Catalytic activity/Vol] 32 U/L Normal 7-38 [facility] Comment on above: Order Comment: Speci men Type: BLOOD SPECIMEN Ordering Facility: [facility] Address: [address] [place], [place] [address] Performed By: #### 1 9885, 2132-06 #### [facility] CLIA [id number] [address] [place] [address] [place] Anion gap [Moles/Vol] 13 mmol/L Normal 9-18 [facility] Comment on above: Order Comment: Speci men Type: BLOOD SPECIMEN Ordering Facility: [facility] Address: [address] [place] [address] Performed By: #### 1 988, 2132-06 #### [facility] CLIA [id number] [address] [place] [id number] [place] AST [Catalytic activity/Vol] 28 U/L Normal 13-35 [facility] Comment on above: Order Comment: Speci men Type: BLOOD SPECIMEN Ordering Facility: [facility] Address: [address] [place] [address] Performed By: #### 1 988, 2132-06 #### [facility] CLIA [id number] [address] [place] [address] [place] Bilirubin [Mass/Vol] 0.4 mg/dL Normal 0.2-1.3 [facility] Comment on above: Order Comment: Speci men Type: BLOOD SPECIMEN Ordering Facility: [facility] Address: [address] Performed By: #### 1 988, 2132-06 #### [facility] CLIA [id number] [address] [place] [address] [place] Calcium [Mass/Vol] 9.4 mg/dL Normal 8.5-10.2 [facility] Comment on above: Order Comment: Speci men Type: BLOOD SPECIMEN Ordering Facility: [facility] Address: [address] [place] [address] Performed By: #### 1 988, 2132-06 #### [facility] CLIA [id number] [address] [place] [address] [place] Chloride [Moles/Vol] 100 mmol/L Normal 97-105 [facility] Comment on above: Order Comment: Speci men Type: BLOOD SPECIMEN Ordering Facility: [facility] Address: [address] [place] [address] Performed By: #### 1 988, 2132-06 #### [facility] CLIA [id number] [address] [place] [address] [place] CO2 [Moles/Vol] 23 mmol/L Normal 22-30 [facility] Comment on above: Order Comment: Speci men Type: BLOOD SPECIMEN Ordering Facility: [facility] Address: [address] [place] [address] Performed By: #### 1 9882132-06 #### [facility] CLIA [id number] [address] [place] [id number] [place] Creatinine [Mass/Vol] 0.72 mg/dL Normal 0.58-0.96 [facility] Comment on above: Order Comment: Vivek sanchez Type: BLOOD SPECIMEN Ordering Facility: [facility] Address: [address] [place] [id number] Performed By: #### 1 9805-06, 2132-06 #### [facility] CLIA [id number] [address] [place] [address] [place] ESTIMATED GLOMERULAR FILTRATION RATE 94 mL/min/1.73m??? Normal >=60 [facility] Comment on above: Order Comment: Vivek sanchez Type: BLOOD SPECIMEN Ordering Facility: [facility] Address: [address] [place] [address] Result Comment: Carrie mated Glomerular Filtration Rate (eGFR) is calculated using the 2020 CKD-EPI creatinine equation. This equation utilizes serum creatinine, sex, and age as parameters. The creatinine assay has traceable calibration to isotope dilution-mass spectrometry. Refer to KDIGO guidelines for clinical interpretation. In patients with unstable renal function, e.g. those with acute kidney injury, the eGFR may not accurately reflect actual GFR. Performed By: #### 1 9805-06, 2132-06 #### [facility] CLIA [id number] [address] [place] [id number] [place] Glucose [Mass/Vol] 260 mg/dL High 74-99 [facility] Comment on above: Order Comment: Vivek sanchez Type: BLOOD SPECIMEN Ordering Facility: [facility] Address: [address] [place] [address] Result Comment: The [place] Diabetes [employer] (ADA) provides guidance for cutoff values for fasting glucose and random glucose. The ADA defines fasting as no caloric intake for at least 8 hours. Fasting plasma glucose results between 100 to 125 mg/dL indicate increased risk for diabetes (prediabetes). Fasting plasma glucose results greater than or equal to 126 mg/dL meet the criteria for diagnosis of diabetes. In the absence of unequivocal hyperglycemia, results should be confirmed by repeat testing. In a patient with classic symptoms of hyperglycemia or hyperglycemic crisis, random plasma glucose results greater than or equal to 200 mg/dL meet the criteria for diagnosis of diabetes. Reference: Standards of Medical Care in Diabetes 2016, [place] [employer]. Diabetes Care. 2016.39(Suppl 1). Performed By: #### 1 988, 2132-06 #### [facility] CLIA [id number] [address] [place] [address] [place] Potassium [Moles/Vol] 4.2 mmol/L Normal 3.7-5.1 [facility] Comment on above: Order Comment: Vivek men Type: BLOOD SPECIMEN Ordering Facility: [facility] Address: [address] [place], [place] [address] Performed By: #### 1 9805-06, 2132-06 #### [facility] CLIA [id number] [address] [place] [address] [place] Protein [Mass/Vol] 8.5 g/dL High 6.3-8.0 [facility] Comment on above: Order Comment: Vivek sanchez Type: BLOOD SPECIMEN Ordering Facility: [facility] Address: [address] [place] [address] Performed By: #### 1 9805-06, 2132-06 #### [facility] CLIA [id number] [address] [place] [address] [place] Sodium [Moles/Vol] 136 mmol/L Normal 136-144 [facility] Comment on above: Order Comment: Mark Anthonyi men Type: BLOOD SPECIMEN Ordering Facility: [facility] Address: [address] [place] [address] Performed By: #### 1 988, 2132-06 #### [facility] CLIA [id number] [address] [place] [id number] [place] Urea nitrogen [Mass/Vol] 21 mg/dL Normal 7-21 [facility] Comment on above: Order Comment: Speci men Type: BLOOD SPECIMEN Ordering Facility: [facility] Address: [place] [address] Performed By: #### 1 988-5, 2132-06 #### [facility] CLIA [id number] [address] [place] ESR Westergren method (Bld) [Velocity]on 02-16-2023 ESR (Bld) [Velocity] 27 mm/h High 0-20 [facility] Comment on above: Order Comment: Speci men Type: BLOOD SPECIMEN Ordering Facility: [facility] Address: [place] [address] Performed By: #### 1 988-5, 2132-06 #### [facility] CLIA [id number] [address] [place] [address] OF [facility] MG MAMM SCREEN 3D ALICIA CADon 12-07-2022 MG MAMM SCREEN 3D ALICIA CAD Patient: ELSA CATALAN Exam Date: 12/07/2022 : 1960 Gender:F Ordering : TAWANDA COOK [facility] Admission #: [id number] Family : Order #: [id number] CLICK HERE TO VIEW EXAM RADIOLOGY REPORT PROCEDURE: MAMMOGRAM SCREENING 3D BILATERAL CAD COMPARISON: MG MAMM ALICIA DIAG W CAD, 04/30/2014. INDICATIONS: Screening mammography Calculator Name NCI Breast Cancer Risk Assessment Tool 5 Year Breast Cancer Risk 1.80% Lifetime Breast Cancer Risk 8.20% Personal Breast Cancer No Personal Ovarian Cancer No Treatments None Family Cancers None LOCATION: [facility] BREAST COMPOSITION: Heterogeneously dense,which may obscure small masses. FINDINGS: DIAGNOSTIC CATEGORY 2--BENIGN FINDING. NO CHANGE FROM COMPARISON. Scattered benign-appearing nodules are present. Scattered benign-appearing calcifications are present. Scattered benign-appearing lymph nodes are present. RIGHT BREAST: No significant suspicious finding. LEFT BREAST: No significant suspicious finding. RECOMMENDATIONS: ROUTINE MAMMOGRAM AND CLINICAL EVALUATION IN 12 MONTHS. PLEASE NOTE: A NORMAL MAMMOGRAM DOES NOT EXCLUDE THE POSSIBILITY OF BREAST CANCER. A CLINICALLY SUSPICIOUS PALPABLE LUMP SHOULD BE BIOPSIED. Dictated by: Latasha Hayes MD on 12/08/2022 at 08:04 Approved by: Latasha Hayes MD on 12/08/2022 at 08:08 Normal [facility] NM STRESS/REST MULTIon 11-02 NM STRESS/REST MULTI Patient: ELSA CATALAN Exam Date: 11/02/2022 : 1960 Gender:F Ordering : TAWANDA COOK [facility] Admission #: [id number] Family : Order #: [id number] CLICK HERE TO VIEW EXAM RADIOLOGY REPORT PROCEDURE: RADIONUCLIDE IMAGING STRESS/REST MULTI COMPARISON: None. INDICATIONS: Chest pain TECHNIQUE: Exam Description: Stress/Rest two day protocol gated SPECT Rest Imagin.5 mCi Tc-99m Cardiolite IV on 11/02/2022 Stress Imaging 30.1 mCi Tc-99m Cardiolite IV on 11/02/2022 Exercise Protocol: 0.4 mg Lexiscan given IV Heart Rate (bpm): Rest: 84 Max: 113 PMHR: 71 Blood Pressure: Rest: 122/80 Max: 138/78 Symptoms: Rest and peak stress ECG findings were normal and the exercise portion of the study was normal per attending physician Dr. Tomas . For more details please see separate cardiac stress test report. FINDINGS: QUALITY OF STUDY: Excellent. PERFUSION DEFECT: None. LOCATION: N/A SIZE: N/A. SEVERITY: N/A. TYPE: N/A. WALL MOTION: Normal. LV SIZE: Normal. 59 mL. TID / TCD: None; 0.9 LVEF: Normal. Calculated EF 69%. SUMMARY: Myocardial perfusion imaging study is NORMAL. CONCLUSION: 1. No reversible ischemia 2. Normal exercise test Dictated by: Latasha Hayes MD on 11/03/2022 at 07:31 Approved by: Latasha Hayes MD on 11/03/2022 at 07:39 Normal [facility] Covid-19 PCR (CVDTBH)on 09-01 SARS-CoV-2 (COVID-19) RNA ISAC+probe Ql (Unsp spec) Not detected Normal NOT DETECTED [facility] Comment on above: Result Comment: This test is not yet approved or cleared by the [place] FDA. When there are no FDA-approved or cleared tests available, and other criteria are met, FDA can make tests available under an emergency access mechanism called an Emergency Use Authorization (EUA). The EUA for this test is supported by the Engineering Instructor of Health and Human Service's (HHS's) declaration that circumstances exist to justify the emergency use of in vitro diagnostics for the detection and/or diagnosis of the virus that causes COVID-19. This EUA will remain in effect (meaning this test can be used) for the duration of the COVID-19 declaration justifying emergency of IVDs, unless it is terminated or revoked by FDA (after which the test may no longer be used). When diagnostic testing is negative, the possibility of a false negative should be considered in the context of a patient's recent exposures and the presence of clinical signs and symptoms consistent with SARS-CoV-2. Performed By: #### F T3, TSH #### [facility] [address] [place] [address] Dr. Мария Horne INFLUENZA A AND B [facility] 09-19 [facility] SEE BELOW Normal [facility] Comment on above: Result Comment: Nega tive for Flu A protein angiten. Infection due to Flu A cannot be ruled out. Flu A angiten in the sample may be below the detection limit of the test. Performed By: #### F T3, TSH #### [facility] [address] [place] [address] Dr. [facility] Normal [facility] Comment on above: Result Comment: Nega tive for Flu B protein antigen. Infection due to Flu B cannot be ruled out. Flu B antigen in the sample may be below the detection limit of the test. Performed By: #### F T3, TSH #### [facility] [address] [place] [address] Dr. Мария Horne INFLUENZA A AG Negative Normal NEGATIVE SEE COMMENT [facility] Comment on above: Performed By: #### F T3, TSH #### [facility] [address] [place] [address] Dr. Мария Horne INFLUENZA B AG Negative Normal NEGATIVE SEE COMMENT [facility] Comment on above: Performed By: #### F T3, TSH #### [facility] [address] [place] [address] Dr. Мария Horne INTERNAL CONTROLS Within Normal Limits Normal Wi thin Normal Limits [facility] Comment on above: Performed By: #### F T3, TSH #### [facility] [address] [place] [address] [address] Мария Horne XR CHEST 2 Von 07-06-2022 XR CHEST 2 V EXAMINATION: XR CHES T 2 V HISTORY: Dyspnea COMPARISON: 05/11/2021 TECHNIQUE: PA and lateral FINDINGS: LUNGS: No significant pulmonary parenchymal abnormalities. VASCULATURE: No increased pulmonary vasculature. PLEURA: No pneumothorax, effusion, or pleural thickening. CARDIAC: No cardiomegaly or cardiac silhouette abnormality. MEDIASTINUM: No visible mass or adenopathy. BONES: No fracture or visible bone lesion. OTHER: Negative. IMPRESSION: No acute disease. Electronically authenticated by: LATASHA HAYES Date: 2022-07-06 16:11 Normal [facility] FREE T3on 02-01-2022 FREE T3 2.58 pg/mlL Normal 2.18-3.98 [facility] Comment on above: Performed By: #### F T3, TSH #### [facility] [address] [address] [address] Мария Horne FREE T4on 02-01-2022 Free T4 [Mass/Vol] 1.25 ng/dL Normal 0.76-1.46 [facility] Comment on above: Performed By: #### F T4 #### [facility] [address] [place] [address] Dr. Мария Horne TSHon 02-01-2022 TSH 1.679 uIU/mL Normal 0.470-4.680 [facility] Comment on above: Performed By: #### F T3, TSH #### [facility] [address] [place] [address] Dr. Мария Horne TSH RANGE SEE BELOW Normal [facility] Comment on above: Result Comment: <0.3 4 UIU/ml HYPERTHYROID 0.34-5.60 UIU/ml EUTHYROID >5.60 UIU/ml HYPOTHYROID Performed By: #### F T3, TSH #### [facility] [address] [place] [address] Dr. Мария Horne AMYLASEon 01-13-2022 Amylase [Catalytic activity/Vol] 65 U/L Normal 25-115 [facility] Comment on above: Performed By: #### L JANEL HUIZAR #### [facility] [address] [place] [address] Dr. Мария Horne CBC AUTO DIFFon 01-13-2022 BASO # 0.1 103/ul Normal 0.0-0.1 [facility] Comment on above: Performed By: #### C BC #### [facility] [address] [place] [address] Dr. Мария Horne Basophils/100 WBC (Bld) 1.1 % Normal 0.2-2.0 [facility] Comment on above: Performed By: #### C BC #### [facility] [address] [place] [address] Dr. Мария Horne EO # 0.2 103/ul Normal 0.0-0.7 [facility] Comment on above: Performed By: #### C BC #### [facility] [address] [place] [address] Dr. Мария Horne Eosinophils/100 WBC (Bld) 2.8 % Normal 0.9-7.0 [facility] Comment on above: Performed By: #### C BC #### [facility] [address] [place] [address] Dr. Мария Horne Erythrocyte distribution width (RBC) [Ratio] 13.7 % Normal 11.0-15.0 [facility] Comment on above: Performed By: #### C BC #### [facility] [address] [place] [address] Dr. Мария Horne Hematocrit (Bld) [Volume fraction] 37.3 % Normal 36.0-48.0 [facility] Comment on above: Performed By: #### C BC #### [facility] [address] [place] [address] Dr. Мария Horne Hemoglobin (Bld) [Mass/Vol] 12.4 g/dL Normal 12.0-16.0 [facility] Comment on above: Performed By: #### C BC #### [facility] [address] [place] [address] Dr. Мария Horne IG # 0.01 10e3/ul Normal 0.00-0.03 [facility] Comment on above: Performed By: #### C BC #### [facility] [address] [place] [address] Dr. Мария Horne IG % 0.2 % Normal 0.0-0.5 [facility] Comment on above: Performed By: #### C BC #### [facility] [address] [place] [address] Dr. Мария Horne LYMPH # 2.0 103/ul Normal 1.2-3.8 [facility] Comment on above: Performed By: #### C BC #### [facility] [address] [place] [address] Dr. Мария Horne Lymphocytes/100 WBC (Bld) 33.2 % Normal 20.5-60.0 [facility] Comment on above: Performed By: #### C BC #### [facility] [address] [place] [address] Dr. Мария Horne MANUAL DIFF REQ NO Normal [facility] Comment on above: Performed By: #### C BC #### [facility] [address] [place] [address] Dr. Мария Horne MCH (RBC) [Entitic mass] 30.0 pg Normal 26.7-34.0 [facility] Comment on above: Performed By: #### C BC #### [facility] [address] [place] [address] Dr. Мария Horne MCHC (RBC) [Mass/Vol] 33.2 g/dL Normal 29.9-35.2 [facility] Comment on above: Performed By: #### C BC #### [facility] [address] [place] [address] Dr. Мария Horne MCV (RBC) [Entitic vol] 90.1 fL Normal 81.0-99.0 [facility] Comment on above: Performed By: #### C BC #### [facility] [address] [place] [address] Dr. Мария Horne MONO # 0.9 103/ul Critically high 0.3-0.8 [facility] Comment on above: Performed By: #### C BC #### [facility] [address] [address] [address] Мария Horne Monocytes/100 WBC (Bld) 14.1 % Critically high 1.7-12.0 [facility] Comment on above: Performed By: #### C BC #### [facility] [address] [address] [address] Мария Horne NEUT # 3.0 103/ul Normal 1.4-6.5 [facility] Comment on above: Performed By: #### C BC #### [facility] [address] [place] [address] Dr. Мария Horne Neutrophils/100 WBC (Bld) 48.6 % Normal 43.0-75.0 [facility] Comment on above: Performed By: #### C BC #### [facility] [address] [place] [address] Dr. Мария Horne Platelet mean volume (Bld) [Entitic vol] 9.0 fL Critically low 9.5-13.5 [facility] Comment on above: Performed By: #### C BC #### [facility] [address] [place] [address] Dr. Мария Horne PLT 263 103/ul Normal 150-450 [facility] Comment on above: Performed By: #### C BC #### [facility] [address] [place] [address] Dr. Мария Horne RBC 4.14 106/ul Critically low 4.20-5.40 [facility] Comment on above: Performed By: #### C BC #### [facility] [address] [place] [address] Dr. Мария Horne WBC 6.1 103/ul Normal 4.0-11.0 [facility] Comment on above: Performed By: #### C BC #### [facility] [address] [place] [address] ABDOMEN W CONon 2 CT ABDOMEN W CON EXAMINATION: CT ABDO MEN W CON HISTORY: Right upper quadrant pain , pain under right breast COMPARISON: Ultrasound right upper quadrant 12/31/2021 TECHNIQUE: CT images were created with IV contrast. Axial, Coronal, and Sagittal images. Dose reduction techniques were achieved by using automated exposure control and/or adjustment of mA and/or kV according to patient size and/or use of iterative reconstruction technique FINDINGS: LUNG BASES: No visible pulmonary or pleural disease. LIVER: No enlargement, atrophy, abnormal density, or significant focal lesion. BILIARY: No visible dilatation or calcification. PANCREAS: No lesion, fluid collection, ductal dilatation, or atrophy. SPLEEN: No enlargement or focal lesion. ADRENALS: No mass or enlargement. KIDNEYS: No mass, obstruction, or calcification. BOWEL/MESENTERY: No visible mass, obstruction, or bowel wall thickening. AORTA/VASCULAR: No aneurysm or dissection. RETROPERITONEUM: No mass or adenopathy. ABDOMINAL WALL: No mass or hernia. BONES: No bony lesion or fracture. OTHER: Negative. IMPRESSION: 1. No abnormal or suspicious findings to account for patient's symptoms. Electronically authenticated by: STU SAMUEL Date: 2022-01-13 10:05 Normal [facility] LIPASEon 01-13-2022 Lipase [Catalytic activity/Vol] 167.0 U/L Normal 23.0-300.0 [facility] Comment on above: Performed By: #### L IPA, JANEL #### [facility] [address] [place] [address] Dr. Мария Horne PROF 14(COMP METB)on 022 Albumin [Mass/Vol] 3.6 g/dL Normal 3.4-5.0 [facility] Comment on above: Performed By: #### F T3, TSH #### [facility] [address] [address] [address] Мария Horne Albumin/Globulin [Mass ratio] 0.8 {ratio} Normal [facility] Comment on above: Performed By: #### F T3, TSH #### [facility] [address] [place] [address] Dr. Мария Horne ALP [Catalytic activity/Vol] 75 U/L Normal 46-116 [facility] Comment on above: Performed By: #### F T3, TSH #### [facility] [address] [address] [address] Мария Horne ALT [Catalytic activity/Vol] 46 U/L Normal 14-59 [facility] Comment on above: Performed By: #### F T3, TSH #### [facility] [address] [address] [address] Мария Horne Anion gap [Moles/Vol] 12.2 mmol/L Normal [facility] Comment on above: Performed By: #### F T3, TSH #### [facility] [address] [address] [address] Мария Horne AST [Catalytic activity/Vol] 37 U/L Normal 15-37 [facility] Comment on above: Performed By: #### F T3, TSH #### [facility] [address] [place] [address] Dr. Мария Horne Bilirubin [Mass/Vol] 0.4 mg/dL Normal 0.2-1.3 [facility] Comment on above: Performed By: #### F T3, TSH #### [facility] [address] [place] [address] Dr. Мария Horne Calcium [Mass/Vol] 8.1 mg/dL Critically low 8.5-10.1 [facility] Comment on above: Performed By: #### F T3, TSH #### [facility] [address] [address] [address] Мария Horne Chloride [Moles/Vol] 104 mmol/L Normal 98-107 [facility] Comment on above: Performed By: #### F T3, TSH #### [facility] [address] [place] [address] Dr. Мария Horne CO2 [Moles/Vol] 27.3 mmol/L Normal 22.0-30.0 [facility] Comment on above: Performed By: #### F T3, TSH #### [facility] [address] [place] [address] Dr. Мария Horne Creatinine [Mass/Vol] 0.73 mg/dL Normal 0.52-1.04 [facility] Comment on above: Performed By: #### F T3, TSH #### [facility] [address] [address] [address] Мария Horne EGFR-AF LIBYAN >60 Normal >=60 [facility] Comment on above: Performed By: #### F T3, TSH #### [facility] [address] [address] [address] Мария Horne EGFR-NON AF LIBYAN >60 Normal >=60 [facility] Comment on above: Performed By: #### F T3, TSH #### [facility] [address] [address] [address] Мария Horne Globulin (S) [Mass/Vol] 4.5 g/dL Normal [facility] Comment on above: Performed By: #### F T3, TSH #### [facility] [address] [address] [address] Мария Horne Glucose [Mass/Vol] 95 mg/dL Normal 74-106 [facility] Comment on above: Performed By: #### F T3, TSH #### [facility] [address] [address] [address] Мария Horne Potassium [Moles/Vol] 3.5 mmol/L Normal 3.4-5.0 [facility] Comment on above: Performed By: #### F T3, TSH #### [facility] [address] [place] [address] Dr. Мария Horne Protein [Mass/Vol] 8.1 g/dL Normal 6.1-8.2 [facility] Comment on above: Performed By: #### F T3, TSH #### [facility] [address] [place] [address] Dr. Мария Horne Sodium [Moles/Vol] 140 mmol/L Normal 137-145 [facility] Comment on above: Performed By: #### F T3, TSH #### [facility] [address] [address] [address] Мария Horne Urea nitrogen [Mass/Vol] 15.0 mg/dL Normal 7.0-18.0 [facility] Comment on above: Performed By: #### F T3, TSH #### [facility] [address] [place] [address] Dr. Мария Horne Urea nitrogen/Creatinine [Mass ratio] 20.5 mg/mg Normal [facility] Comment on above: Performed By: #### F T3, TSH #### [facility] [address] [place] [address] Dr. Мария Horne US SINGLE QUAD RT UPPERon US SINGLE QUAD RT UPPER EXAM: US SINGLE QUAD RT UPPER HISTORY: . Right upper quadrant pain . COMPARISON: None. TECHNIQUE: Grayscale and color imaging was performed FINDINGS: The pancreas appears normal. Scanning of the liver demonstrates a liver to be normal in size. No masses or biliary dilatation is noted. Color-flow is noted in the portal and hepatic veins. Common bile duct measures 5 mm. Scanning of the gallbladder demonstrates no stones or sludge within the gallbladder. Patient had no pain upon scanning over the gallbladder. Right kidney measured 10.9 x 5.1 x 5 cm. Color-flow is noted. No solid renal cortical masses or hydronephrosis is noted. No fluid is noted in the right upper quadrant. IMPRESSION: Normal ultrasound of the right upper quadrant. Electronically authenticated by: LATASHA HOEWLL Date: 2021-12-31 10:44 Normal [facility] INSULINon 12-29-2021 Insulin 8.7 uIU/mL Normal 2.6-24.9 [facility] Comment on above: Performed By: #### I NSULIN #### [facility] [address] [place] [address] Dr. Мария Horne CBC AUTO DIFFon 12-28-2021 BASO # 0.1 103/ul Normal 0.0-0.1 [facility] Comment on above: Performed By: #### C BC #### [facility] [address] [place] [address] Dr. Мария Horne Basophils/100 WBC (Bld) 0.8 % Normal 0.2-2.0 [facility] Comment on above: Performed By: #### C BC #### [facility] [address] [place] [address] Dr. Мария Horne EO # 0.3 103/ul Normal 0.0-0.7 [facility] Comment on above: Performed By: #### C BC #### [facility] [address] [place] [address] Dr. Мария Horne Eosinophils/100 WBC (Bld) 3.2 % Normal 0.9-7.0 [facility] Comment on above: Performed By: #### C BC #### [facility] [address] [place] [address] Dr. Мария Horne Erythrocyte distribution width (RBC) [Ratio] 13.7 % Normal 11.0-15.0 [facility] Comment on above: Performed By: #### C BC #### [facility] [address] [place] [address] Dr. Мария Horne Hematocrit (Bld) [Volume fraction] 43.1 % Normal 36.0-48.0 [facility] Comment on above: Performed By: #### C BC #### [facility] [address] [place] [address] Dr. Мария Horne Hemoglobin (Bld) [Mass/Vol] 14.5 g/dL Normal 12.0-16.0 [facility] Comment on above: Performed By: #### C BC #### [facility] [address] [place] [address] Dr. Мария Horne IG # 0.02 10e3/ul Normal 0.00-0.03 [facility] Comment on above: Performed By: #### C BC #### [facility] [address] [place] [address] Dr. Мария Horne IG % 0.2 % Normal 0.0-0.5 [facility] Comment on above: Performed By: #### C BC #### [facility] [address] [place] [address] Dr. Мария Horne LYMPH # 3.0 103/ul Normal 1.2-3.8 [facility] Comment on above: Performed By: #### C BC #### [facility] [address] [place] [address] Dr. Мария Horne Lymphocytes/100 WBC (Bld) 35.8 % Normal 20.5-60.0 [facility] Comment on above: Performed By: #### C BC #### [facility] [address] [place] [address] Dr. Мария Horne MANUAL DIFF REQ NO Normal [facility] Comment on above: Performed By: #### C BC #### [facility] [address] [place] [address] Dr. Мария Horne MCH (RBC) [Entitic mass] 30.0 pg Normal 26.7-34.0 [facility] Comment on above: Performed By: #### C BC #### [facility] [address] [place] [address] Dr. Мария Horne MCHC (RBC) [Mass/Vol] 33.6 g/dL Normal 29.9-35.2 [facility] Comment on above: Performed By: #### C BC #### [facility] [address] [place] [address] Dr. Мария Horne MCV (RBC) [Entitic vol] 89.2 fL Normal 81.0-99.0 [facility] Comment on above: Performed By: #### C BC #### [facility] [address] [place] [address] Dr. Мария Horne MONO # 0.8 103/ul Normal 0.3-0.8 [facility] Comment on above: Performed By: #### C BC #### [facility] [address] [place] [address] Dr. Мария Horne Monocytes/100 WBC (Bld) 9.1 % Normal 1.7-12.0 [facility] Comment on above: Performed By: #### C BC #### [facility] [address] [place] [address] Dr. Мария Horne NEUT # 4.2 103/ul Normal 1.4-6.5 [facility] Comment on above: Performed By: #### C BC #### [facility] [address] [place] [address] Dr. Мария Horne Neutrophils/100 WBC (Bld) 50.9 % Normal 43.0-75.0 [facility] Comment on above: Performed By: #### C BC #### [facility] [address] [address] [address] Мария Horne Platelet mean volume (Bld) [Entitic vol] 9.8 fL Normal 9.5-13.5 [facility] Comment on above: Performed By: #### C BC #### [facility] [address] [place] [address] Dr. аМрия Horne PLT 314 103/ul Normal 150-450 [facility] Comment on above: Performed By: #### C BC #### [facility] [address] [address] [address] Мария Horne RBC 4.83 106/ul Normal 4.20-5.40 [facility] Comment on above: Performed By: #### C BC #### [facility] [address] [place] [address] Dr. Мария Horne WBC 8.2 103/ul Normal 4.0-11.0 [facility] Comment on above: Performed By: #### C BC #### [facility] [address] [place] [address] Dr. Мария Horne FREE THYROXINE INDEX T7on FTI 1.38 Normal [facility] Comment on above: Performed By: #### F T3, TSH #### [facility] [address] [place] [address] Dr. Мария Horne T3U 32.0 % Normal 23.5-40.5 [facility] Comment on above: Performed By: #### F T3, TSH #### [facility] [address] [place] [address] Dr. Мария Horne T4 [Mass/Vol] 4.30 ug/dL Critically low 5.53-11.00 [facility] Comment on above: Performed By: #### F T3, TSH #### [facility] [address] [place] [address] Dr. Мария Horne GLYCOHEMOGLOBIN A1Con 2021 ADA RECOMMENDATION ADA THERAPEUTIC TARG ET 6.0 - 7.0 ACTION SUGGESTED > 7.0 Normal [facility] Comment on above: Performed By: #### F T3, TSH #### [facility] [address] [address] [address] Мария Horne Glucose [Mass/Vol] 252 mg/dL Normal [facility] Comment on above: Performed By: #### F T3, TSH #### [facility] [address] [place] [address] Dr. Мария Horne HbA1c (Bld) [Mass fraction] 10.4 % Critically high <=6.0 [facility] Comment on above: Performed By: #### F T3, TSH #### [facility] [address] [place] [address] Dr. Мария Horne IRONon 12-28-2021 Iron [Mass/Vol] 84.0 ug/dL Normal 37.0-170.0 [facility] Comment on above: Performed By: #### I JENNIFER #### [facility] [address] [place] [address] Dr. Мария Horne LIPID PROFILEon 12-28-2021 CHOL-HDL RATIO NORM SEE BELOW Normal [facility] Comment on above: Result Comment: 3.3 - 4.4 LOW RISK 4.4 - 7.1 AVERAGE RISK 7.1 - 11.0 MODERATE RISK >11.0 HIGH RISK Performed By: #### F T3, TSH #### [facility] [address] [place] [address] Dr. Мария Horne Cholesterol [Mass/Vol] 217 mg/dL Critically high <=200 [facility] Comment on above: Performed By: #### F T3, TSH #### [facility] [address] [place] [address] Dr. Мария Horne Cholesterol in HDL [Mass/Vol] 47 mg/dL Normal 40-60 [facility] Comment on above: Performed By: #### F T3, TSH #### [facility] [address] [address] [address] Мария Horne Cholesterol in LDL [Mass/Vol] 126.6 mg/dL Normal [facility] Comment on above: Performed By: #### F T3, TSH #### [facility] [address] [place] [address] Dr. Мария Horne Cholesterol.total/C holesterol in HDL [Mass ratio] 4.6 {ratio} Normal [facility] Comment on above: Performed By: #### F T3, TSH #### [facility] [address] [address] [address] Мария Horne HDL NORMAL > or = 60 mg/dl - LO W CARDIOVASCULAR RISK <40 mg/dl - HIGH CARDIOVASCULAR RISK Normal [facility] Comment on above: Performed By: #### F T3, TSH #### [facility] [address] [address] [address] Мария Horne LDL CALC NORMAL SEE BELOW Normal [facility] Comment on above: Result Comment: <100 mg/dl OPTIMAL 100 - 129 mg/dl NEAR OR ABOVE OPTIMAL 130 - 159 mg/dl BORDERLINE HIGH 160 - 189 mg/dl HIGH >190 mg/dl VERY HIGH Performed By: #### F T3, TSH #### [facility] [address] [place] [address] Dr. Мария Horne Triglyceride [Mass/Vol] 217 mg/dL Critically high <=150 [facility] Comment on above: Performed By: #### F T3, TSH #### [facility] [address] [address] [address] Мария Horne VLDL CALC 43.4 mg/dL Normal [facility] Comment on above: Performed By: #### F T3, TSH #### [facility] [address] [place] [address] Dr. Мария Horne OCC BLD IMMUNO SCREENon 12-01 OCCULT BLOOD Negative Normal NEGATIVE [facility] Comment on above: Performed By: #### O BSCRN #### [facility] [address] [place] [address] Dr. Мария Horne PROF 14(COMP METB)on 022 Albumin [Mass/Vol] 3.8 g/dL Normal 3.4-5.0 [facility] Comment on above: Performed By: #### F T3, TSH #### [facility] [address] [place] [address] Dr. Мария Horne Albumin/Globulin [Mass ratio] 0.7 {ratio} Normal [facility] Comment on above: Performed By: #### F T3, TSH #### [facility] [address] [address] [address] Мария Horne ALP [Catalytic activity/Vol] 81 U/L Normal 46-116 [facility] Comment on above: Performed By: #### F T3, TSH #### [facility] [address] [address] [address] Мария Horne ALT [Catalytic activity/Vol] 36 U/L Normal 14-59 [facility] Comment on above: Performed By: #### F T3, TSH #### [facility] [address] [address] [address] Мария Horne Anion gap [Moles/Vol] 14.4 mmol/L Normal [facility] Comment on above: Performed By: #### F T3, TSH #### [facility] [address] [address] [address] Мария Horne AST [Catalytic activity/Vol] 26 U/L Normal 15-37 [facility] Comment on above: Performed By: #### F T3, TSH #### [facility] [address] [address] [address] Мария Horne Bilirubin [Mass/Vol] 0.4 mg/dL Normal 0.2-1.3 [facility] Comment on above: Performed By: #### F T3, TSH #### [facility] [address] [address] [address] Мария Horne Calcium [Mass/Vol] 8.4 mg/dL Critically low 8.5-10.1 [facility] Comment on above: Performed By: #### F T3, TSH #### [facility] [address] [address] [address] Мария Horne Chloride [Moles/Vol] 99 mmol/L Normal 98-107 [facility] Comment on above: Performed By: #### F T3, TSH #### [facility] [address] [address] [address] Мария Horne CO2 [Moles/Vol] 28.8 mmol/L Normal 22.0-30.0 [facility] Comment on above: Performed By: #### F T3, TSH #### [facility] [address] [address] [address] Мария Horne Creatinine [Mass/Vol] 0.80 mg/dL Normal 0.52-1.04 [facility] Comment on above: Performed By: #### F T3, TSH #### [facility] [address] [address] [address] Мария Horne EGFR-AF LIBYAN >60 Normal >=60 [facility] Comment on above: Performed By: #### F T3, TSH #### [facility] [address] [address] [address] Мария Horne EGFR-NON AF LIBYAN >60 Normal >=60 [facility] Comment on above: Performed By: #### F T3, TSH #### [facility] [address] [address] [address] Мария Horne Globulin (S) [Mass/Vol] 5.1 g/dL Normal [facility] Comment on above: Performed By: #### F T3, TSH #### [facility] [address] [address] [address] Мария Horne Glucose [Mass/Vol] 212 mg/dL Critically high 74-106 [facility] Comment on above: Performed By: #### F T3, TSH #### [facility] [address] [address] [address] Мария Horne Potassium [Moles/Vol] 3.2 mmol/L Critically low 3.4-5.0 [facility] Comment on above: Performed By: #### F T3, TSH #### [facility] Laboratory [address] [address] [address] Мария Horne Protein [Mass/Vol] 8.9 g/dL Critically high 6.1-8.2 [facility] Comment on above: Performed By: #### F T3, TSH #### [facility] [address] [address] [address] Мария Horne Sodium [Moles/Vol] 139 mmol/L Normal 137-145 [facility] Comment on above: Performed By: #### F T3, TSH #### [facility] [address] [address] [address] Мария Horne Urea nitrogen [Mass/Vol] 14.0 mg/dL Normal 7.0-18.0 [facility] Comment on above: Performed By: #### F T3, TSH #### [facility] [address] [address] [address] Мария Horne Urea nitrogen/Creatinine [Mass ratio] 17.5 mg/mg Normal [facility] Comment on above: Performed By: #### F T3, TSH #### [facility] [address] [address] [address] Мария Horne TSHon 12-28-2021 TSH 115.875 uIU/mL Critically high 0.470-4.680 [facility] Comment on above: Performed By: #### F T3, TSH #### [facility] [address] [place] [address] Dr. Мария Horne TSH RANGE SEE BELOW Normal [facility] Comment on above: Result Comment: <0.3 4 UIU/ml HYPERTHYROID 0.34-5.60 UIU/ml EUTHYROID >5.60 UIU/ml HYPOTHYROID Performed By: #### F T3, TSH #### [facility] [address] [place] [address] Dr. Мария Horne Ambulatory Clinical Summaryo n 08-18-2021 Ambulatory Clinical Summary {[id number]}CD:[id number] Normal [facility] General Surgery Office/Clini c Noteon 08-18-2021 General Surgery Office/Clinic Note Chief Complaint post operative follow up HPI Staff 7 day post operative follow up post excisional biopsy lipoma right mid back. Some tenderness. Denies bleeding or drainage. History of Present Illness 1 week s/p excisional biopsy lipoma right mid back, pathology consistent with lipoma; mild soreness, no drainage. Physical Exam Vitals & Measurements T: 36.5 ?C (Temporal Artery) skin: incision healing well, minimal erythema lateral edge of incision; no drainage or ecchymoses. Assessment/Plan 1. Lipoma of back (D17.1: Benign lipomatous neoplasm of skin and subcutaneous tissue of trunk) doing well, keep area clean and dry; call with problems/questions. Follow-up No qualifying data available Problem List/Past Medical History Ongoing Anxiety Asthma Bilateral cataracts BMI 25.0-25.9,adult Chronic abdominal pain Chronic obstructive pulmonary disease Depression Fibromyalgia HTN (hypertension) Hypercholesterolemia Insulin dependent type 2 diabetes mellitus Lipoma of back Rheumatoid arthritis Right leg weakness Spondylolisthesis Subcutaneous nodule of back Historical No qualifying data Procedure/Surgical History Excision of lipoma of back (08/11/2021), Arthroplasty of elbow (09/04/2019), Arthroplasty of elbow (02/27/2019), Arthroplasty of knee, FRANCOIS - Total abdominal hysterectomy, Thyroidectomy. Medications alprazolam 0.25 mg Tab, 0.25 mg= 1 tab(s), Oral, TID, PRN Arava 20 mg Tab, 20 mg= 1 tab(s), Oral, Daily cloNIDine 0.1 mg tab, 0.1 mg= 1 tab(s), Oral, BID FLUoxetine 10 mg Cap, 10 mg= 1 cap(s), Oral, Daily folic acid 1 mg Tab, 2 mg= 2 tab(s), Oral, Daily gabapentin 300 mg Cap, 900 mg= 3 cap(s), Oral, TID Humira Pre-Filled Syringe 10 mg/0.1 mL subcutaneous kit irbesartan 150 mg Tab, 150 mg= 1 tab(s), Oral, Daily Jardiance 10 mg oral tablet, 10 mg= 1 tab(s), Oral, qAM Lantus Solostar Pen 100 units/mL subcutaneous solution, 50 unit(s), SubCutaneous, Once a day (at bedtime) levothyroxine 200 mcg (0.2 mg) Tab, 200 mcg= 1 tab(s), Oral, Daily methotrexate 25 mg/mL injectable solution, 5 mg, IntraMuscular, qWeek Metoprolol succinate 25 mg ER Tablet, 1 tab(s), Oral, Daily simvastatin 40 mg Tab, 40 mg= 1 tab(s), Oral, Once a day (at bedtime) sulfasalazine 500 mg Tab, 500 mg= 1 tab(s), Oral, TID Symbicort 80/4.5 inhalation aerosol with adapter, 2 puff(s), Inhalation, BID Synthroid 50 mcg Tab, 50 mcg= 1 tab(s), Oral, Daily Valium 5 mg Tab, 5 mg= 1 tab(s), Oral, Daily Ventolin HFA 90 mcg/inh Aerosol, 2 puff(s), Inhalation, q4hr, PRN Vitamin D3 2000 intl units oral Tab, 1 tab(s), Oral, Daily Allergies Cipro (Unknown) Jardiance (Unknown) Percocet (Unknown) penicillin (Unknown) Social History Alcohol - Denies Alcohol Use, 07/30/2021 Substance Abuse - Denies Substance Abuse, 07/30/2021 Tobacco Never (less than 100 in lifetime) Tobacco Use:. Never Smokeless Tobacco Use:., 07/30/2021 Family History Acute myocardial infarction: Mother. Asthma: Father. Autoimmune disease: Sister. Cardiac arrest: Mother. Diabetes mellitus type 2: Father. Hypertension: Father. Immunizations Vaccine Date Status SARS-CoV-2 (COVID-19) mRNA BNT-162b2 vax 07/22/2021 Recorded SARS-CoV-2 (COVID-19) mRNA BNT-162b2 vax 07/01/2021 Recorded Normal [facility] Comment on above: Result Comment: Elec tronically Signed By: KEMAR EVANS, Lan Glass\Date and Time Signed: 08/18/21 16:32 EST Pathology Noteon 08-16-2021 Pathology Note [id number]#1.00C D:127 Normal [facility] Operative Reporton Operative Report [id number] D:127 Normal [facility] Lab Reportson 08-09-2021 Lab Reports [id number]#1.00C D:127 Normal [facility] August 04, 2021 TAWANDA COOK, [address], [place] [address] Re: ELSA CATALAN Date of : 1960 Thank you for your referral of Elsa Ctaalan who was seen on July 30, 2021, for right mid-back mass. An excisional biopsy is planned. I have enclosed my consultation note for your review. I will be happy to follow lEsa. Sincerely, Lan Hough MD General Surgery Normal [facility] Consent for Procedure/Surger yon 08-02-2021 Consent for Procedure/Surgery [id number] D:127 Normal [facility] General Surgery Office/Clini c Noteon 08-02-2021 General Surgery Office/Clinic Note CD:[id number]:[id number] [id number] HjZbyeQaJYatPh8oc5izSZ0 4zx0bCeIyJh8+AccxKF9HJK lQRSBo pU2eGOYIZifUAhCgTG9zNhB LFp6ZIVTpVLmBEExuSL4nVQ M6thpiuE3sRD3mARJspSCpU t2wh8n8 MpoaLc6zKh9PMb66mVYurBP uUSSCF1talG1fJO0imLQrU0 OrFIKySz8BGHj7pJxekN0rg xU7Mok0 tLN7Sj54j5kxiiUxq2UlJkB 1GPrzqAd7hEinOMjkjN2wOz NbIPHBuS1opYksQP4dhB9tf nRhdGlv biI+ElnvKTJiUtc8bXBeEE2 8N6VcmXubGyx3bTE7AURzdD FgATXjiTg0RMDAHVUZWDCsv XBhdGli bGNvFCZqbjOdatU4HlsVGGO dYmGaZnf1P4zfEQV+Cjxib2 Z1Xeh0LWd2CUB4tTcdSUUrw 250LWZh oVwymEpcyWElf80iDBTibGO aDkLqe628AETxiuD8JQsuhX zqBtr5uBIupTPiq9vioOv6A jEwMCUi KefYZSImzVyqa8YbKvzDKOp nm9npeuSsgIeaWMB3o1YxSA qjDTEeRGS4KkPkPI7+CgkJP GNvbCB2 HYcgK878QbChdPPgj3rlyEm 1BoA4MINySl0SHNvkY49uM1 JvdXA+Ihy7nTTzEYw+CgkJP HRyPgoJ WLb5xNIsv3R5zMN8DdYybcN yr2n4HTadOZX6QiK6GJT6oO NfnW1ovUltndssdY7aZvK+C gkJCTxk gUWdF6piv3H2LrByh7WtuYn nstPtBZYxQgFqf5faKuwgEU DisP6iRYU2ItIoKYKhcPOgT BUdGF0d qlMirPKoHJNbOpVqJ0Qxb27 za5HrOVVFT5vGHeFbMCR0FZ 6yPrWcRE7rW5GtUMU3EfJqN RL0Mvzo MZBhOl87Q1U2HNEeRCt5KLU zKuRkPhXsy5K9lRW7FbQrJZ Fhkxt1NFHllJrjCcxzwEJcL GNsYXNz KHJrVYYyQ3Oxi53cyTXazHO 0Gl36n8ZpnqTarSmyVZ9oUp 5xfW09RAjuzRG0VUGmmFI3O HRleHQt PUDep1YvuOzuqcyijJ8nAFS bnX2jOoY+M8wwUNSyV05puK zpjL55SC7imLQcAxooq6Qnq o0OXWgZ DQXeoyQmgQUbla4pLXRqnAR on404FQ41ZmErFFyjt896ZH 81cPdcRO3iZZIDG7ISBM1PA UFTIiBk JVdkIUJxrfLiF8Q1rRduYNI DN4M6XjM4IJ6SHfDrYVMAH2 VlTdVeTz9UM6TPQAfOUuW2N kEiIGlk NLOwHPEbThtiR7HgPNB3TO3 1GPZtTYE4VOEcYvBvLcWgUw K4UyD6Qi9YIGiVPZYiezTyb GIvfb9w KGOccGZcs629JF09vEMlnKH rCGDwmG22DWRsSRUnUEF3H8 2dtUIwtLU8vRX9VuKEBRAMZ kVfTUVB LjPbEOX5UR76kDJ9lME1SfU 4MjAzMDIzNTAiIGlkPSJfZG X2I5BsAKRxNJcwGx31GQKaG WI9WHCo MqN6GZBaKTtqHhVjEoV5fLo wwiqxVF7bIDowPB4nK1GhZ1 KcLW98UNNfx05mErIhvrR8u HRhdGlv iyWiy2DzlKTnbhmtIWi4Sdj OVBq0B5Evor0BVYbOPN8kgA Y+KlgDYDj7HVl5DQOgHVOyP SJkZHNl B6Juw94uLRIfWHDjZKFiSPE gGRHnTVzvu2PjjTKtHYI0PZ x2RQZzgkVsw4KoArxjCbNrI DpzZWN0 eZ2iB94rKJ9dHG5JBsBdTLB lTuPmDlMgeSH5Vl52TmyiSc EgPf5zWCReMHBiGxTgCQQ2U C64Owtg ZjIkUJU2ZFEjCEA2ySdsJLM gPVHcmE9oUjT9wHm9Nx34q8 IhywGjpWJyxo1xODGlXOS3j Z6pPTry cGxheSI+YDToLU6bu6Y6bJB 4OhTtpdOnc7YiZ1t2HjMpl4 sjFkS3ZEb9VOIbF39vHUNnd 246IHVu ZGVybGluZTsiPkhQSSBTdGF cOndra6Curm60U2RtAB7+Cg fNUOu2DNu0RDZvVMTpKSOfH GVtcmNv bnRlbnQiIGRkOmNvbnRlbnR 0mAGxTTQGKOKFCGUNM25NUX LgFJVmOyXqJoEpSY6vVQD3j GT6SfL9 PQGVLXLfOWh2SLShZSC6Ty6 YLcCnQNJHJYZAIvsjALV5Wb CcnZI0My19DDW8PIL8BI8bG XT9ZTDr IhgzAJRgGz43Tsp1XYlmHly vEfVuIukOYAm6MNt6AIMxNP NzPSJkZGVtcmNvbnRlbnRpd GVtIGRk qsXlw5RjIforSxSfZKkidN8 cwH4jnLgvM9F7sLiaYNR6t8 AtcmlnaHQiIGRkOmNvbnRlb tU3yUOb BBKQVVZWBLSHQ20ZRCVfDDU cInKecEb2rBbpHUXsFPyzRT ZzW5C9TEJtWVhvXlF6BL86T zZjLTll QPXnBRgtVGt8UZH5BNBpAwL 0nAdhhxzqEI5xXMjdYO2uX1 MiO0XiPC44BHZon59lLucxH Fj1HpjQ UHiJSSTgerMfvIDvwb3yNVW qrTIjq373DY85bUTmbPMvBZ IffS38MLGxWJUwYDE6IjNlO mxvYXRp caiauQrfMH7ylS5iCKRmJ6j 6QtNoPDjlg014CL55uYmbOV 0oPWEEB5AJEG5QOSJPKqQxQ DplbnRp sPrySJ3eGePzHE6jZycuJBL 4N7QnCUA1BWPhCVBdWq98BO GmQPE1OaO6XLJiLST5BjIbt O9glrR6 JUJ1GkD7sdTynNWXo5V0uNQ plTE4uR4cOd29A0Jzrb4ZNq rVOWopxMWgW5rwv8K6ZbDfK C2mZ94b rOSwbFq8FG4pCMBrWA9qjcI bmWKxEFKqUrP3gvPlw6Z9uE 4qd6C8jJL5QjKhnS8vyHwxo CIgZGQ6 Z31usRDmzHI5jDA1JfZPMEC XXuDuSGPERcFoCAS1VO28mX V6oVU4KbEreTH7Me0mJRC5W LYlQY8n WNLvMOUmCVVfGARoVs43EQZ aMkS5OVIbF7VcHNpcnR9nGq TlMQNWwG6xpJhcVE0suJ6rh nRhdGlv biI+OP5jmVO+FyzBYPt6DGk 2IGNsYXNzPSJkZGVtcmNvbn HqamUiiASsXWYgcfGft6DaC mxlIiBk CXdtfT7qiS2kiYbtL2S0qWg yBOB6g6XrxpwjxSZqFTQkDj YdeiOrrnA2uDWkGNZZLEBPF DBRW47S XZCzDKLxSwAhwMk2nSoiOCV iIGlkPSJfYTIyNTZlYjAtZm W2BY54CeQ7IWFhYNppLtUjP TNhYmMz DBF8FyA1hFwbrvgwDC1pGZu qZP1gJ5MmN1TdEA93SJWzi2 9rXfiwEMv5BoaVJRuFMFMgy iBjbGFz fa4kFEYvjMNaq860LD95qRY usZXgIIPunI29EVSjOGAtON W7PnCgTjunDIEelxyrcTdtM H8zpH7d TJSgX0i5ChHoNIgim354IV5 5xNuiXQ9kBSVUK4BIND5RLQ SLLiSjPRltzxPkeJurMJ1cM iIgOV2e XzZmYjRjMjFkLWEzYmQtNGQ 8IB1aFRToPLAiQxodBIW6JB JeBqUrsQ4ahlO1JNZ5BxM5z mFtaWNE q8G4dOHdaVM8kE6tZr07F8W vcl3PQzcGGClnxQOoH4aca9 L8ZgQnZS9tK40laBJxfLn6E I9jCHBk UH1akiJmrRYjHWXjThO0hzB cq0D6tV9cz3H6tXL9WtEsnY 1jeKrwaGDpKBU5L17ykUHog MD3lUP0 IlBBVENBUkVfTUVBUyIgZGQ 7NR60aHY7cGW8UzUwzHM7Ng 1qHCZzEPR6PO2fM9MlQQPlJ zQtYTll GC21HffnHYEsNqd7USJfLGa rfE7kAtQyXWBAmT5lpDfvXL 3ayC4fbtOrwPtapsO+PC9ka XY+CgoJ CSe9BWu3KSTtJQUiLYOmBNA tcmNvbnRlbnRpdGVtIGRkcm Yhc7EoLicoMnHoGRhgdQ8yj G5ulRcg L5V4sXulRLE1y4BdzktgzHE yGHIlXdYwyzCaieG1dWKrFB IMXIVTJXIZR05ZXTDcSTHwS mVudGl0 eWlkPSIiIGlkPSJfOTRiNzB rLSQyAUCcUP07YOi3YJJcVU XqAdFpKWPlHBH2LNTqPjD7x Wxuczpk UO1jXVmdLC2gY5YiU2DoND9 1JWVqd65uJfcsDGv5QuaZTE uSXMJzdeRijKUhfz9hMVPtw GYgi866 YA16vZSvmVLrHGQfwV28RLL bQADlHTK8EdQmAllgIUImhg xkuGdcTW2dsV5oTPFhR7x4B iBkZDpj e442FN04tJvqCI4yXQNCK9X MUO0WMGPQYpNmXYsrieUliP dqZU6jQgRuWO3jWfnfSWM9V zZmLTE5 PXtxKXInZx0uJiCiCNP4WZv sZgukCnJ6XDQrjJ7nbrW5KK B1SrB5znGzqJEBo6Y1uPNks EE0cV8p Xl15N4Qpcj1AVanNQJtzvMN aO2zzd8J8ZeGbLH1gK59wcY QcaHh0UM1kKYJuZN6hmyIez GUiIGRk MwC8seDui3W5uZ2nt5Q4nGB 3NjLjjE6hzBcgfFOnJDV2D1 1iuLAshHO2aOU5PfEVLHTZD kVfTUVB WmTuOAJ7HK70fTX3oXT6FhQ woUD4Kp97QMLuKYUvBM8yPX ErUYU6QTEkTTR2Xr2nPyQbZ VH6XoNu AGjbUHakwY4yFcLxGBFGwG4 pbOndZU6skE2djkQpdNzwst I+OV6jaYR+HatOTTj5YTb7Q GNsYXNz PSJkZGVtcmNvbnRlbnRpdGV qAZFgyeMul2GbJgxtTlDtYR dswE2czO7hoLdpR0H4dPqyV YF8d3Uh c (more content not included)... Normal [facility] Comment on above: Result Comment: Elec tronically Signed By: KEMAR EVANS, Lan Marshall.br\Date and Time Signed: 08/02/21 14:26 EDT Pre-Certification Formon Pre-Certification Form [id number]#1.00C D:127 Normal [facility] Ambulatory Clinical Summaryo n 07-30-2021 Ambulatory Clinical Summary {[id number]- 70}CD:[id number] [facility] XR ELBOW GENERAL 2V AP/LAT L Ton 07-26-2021 [facility] Physician Referralon 021 Physician Referral [id number]#[id number] D:127 Normal [facility] CARDIAC STRESS/REST IFTIKHAR Tucker 05-25-2021 [facility] CARDIAC STRESS/REST INJECTION Patient Name: ELSA CATALAN STUDY: MYOCARDIAL PERFUSION STRESS TEST WITH LEXISCAN Performing facility: [facility], [address] [place] [address], [address], [place] [address] [facility] Provider: Sarina Bird DO, [facility] PCP: Dr. Anant Johnson Supervising provider: Sarina Palomino MD, [facility] INDICATION: Chest Pain; HISTORY: Gender: F; Age: 60 y/o ; Height: 0 cm; Weight: 62.1016381 kg. High Cholesterol; Diabetes; HTN; SOB; Denies smoking. COMPARISON: No comparison. ACCESSION NUMBER(S): [id number]; [id number]; [id number] ORDERING CLINICIAN: ASIM BIRD TECHNIQUE: ONE DAY protocol. Stress injection: Date:05-25-21, 34.1 mCi of Myoview IV 20 seconds after rapid injection of Lexiscan. Rest injection: Date: 05-25-21, 11.1 mCi of Myoview IV at rest. The patient had a rapid injection of 0.4 mg of Lexiscan IV over 10 seconds. Imaging was performed by gated tomographic technique. Reason for Lexiscan: dizziness/unsteady/fall risk STRESS TEST DATA: Resting heart rate was 85 BPM. Resting blood pressure was 118/80 mmHg. Peak blood pressure was 124/80 mmHg. Peak heart rate was 110 BPM. TEST TERMINATED DUE TO: Protocol completed FINDINGS: STRESS TEST RESULTS: Resting electrocardiogram revealed normal sinus rhythm. There were no significant ischemic ECG changes or dysrhythmias. The patient did not have chest pains/symptoms during procedure. There was a normal recovery phase. IMAGING RESULTS: Image quality was good. Rest and stress tomographic images were reviewed and revealed abnormal perfusion. There was evidence of perfusion abnormality with a small basal inferior reversible perfusion defect consistent with small myocardial ischemia of moderate intensity. Motion artifact as a cause of this abnormality could not be entirely excluded There was no evidence of perfusion abnormality suggestive of myocardial infarction. There was no left ventricular dilatation with stress. Overall left ventricular systolic function appeared to be normal. There were no regional wall motion abnormalities . LVEF was 60%. TID is 1.17 and is normal. There was a suggestion of basal inferior motion attenuation artifact . IMPRESSION: Probably abnormal Lexiscan Myoview cardiac perfusion stress test. Small basal myocardial ischemia by perfusion imaging, motion attenuation artifact cannot be ruled out as a cause. No myocardial infarction by perfusion imaging. normal left ventricular systolic function. Left ventricular ejection fraction 60 %. No previous studies are available for comparison. Electronically signed by: DAYANARA AYALA MD Normal [facility] ECG 12 lead ECGon 05-13-2021 ECG 12 lead ECG [place] [address] Electrocardiograph Report Signed Patient: Elsa Catalan MR#: [id number] 0 : 1960 Acct:[id number] Age/Sex: 60 / F ADM Date: 05/11/21 Loc: Room: [address] [place] [address] Type: ADM INOo Attending Dr: Obdulia Garcia MD Ordering Provider: Obdulia Garcia MD Date of Service: 05/13/21 ECG/ECG 12 lead ECG: elevated troponin Copies to: Test Reason : Blood Pressure : / mmHG Vent. Rate : 084 BPM Atrial Rate : 084 BPM P-R Int : 136 ms QRS Dur : 076 ms QT Int : 416 ms P-R-T Axes : 049 007 047 degrees QTc Int : 491 ms Normal sinus rhythm Prolonged QT Abnormal ECG When compared with ECG of 12-MAY-2021 08:46, No significant change was found Confirmed by NOEMY ZAMORA MD ([id number]) on 05/13/2021 11:56:29 AM Referred By: Electronically Signed By:NOEMY ZAMORA MD Transcribed By: [facility] Dictated By: Noemy Zamora MD 05/13/21 0923 Signed By: 05/13/21 1156 [facility] Glucose Poct Glucometerson 0 05-13-2021 Commemt1 Glu2: Cleaned Meter [facility] Comment on above: Result Comment: PERF ORMED BY: [place] [address] PATHOLOGIST STEM SHAPER JIANLAN SUN M.D. Performed By: #### H S TROP, CMP, CBC, MG #### [address] Glucose [Mass/Vol] 149 mg/dL Normal [facility] Comment on above: Result Comment: [place] om Glucose Reference Range is dependent on time and content of last meal. Glucose of more than 200 mg/dL in a nonstressed, ambulatory subject supports the diagnosis of Diabetes Mellitus. Performed By: #### H S TROP, CMP, CBC, MG #### [address] Glucose [Mass/Vol] 89 mg/dL Normal [facility] Comment on above: Result Comment: [place] Glucose Reference Range is dependent on time and content of last meal. Glucose of more than 200 mg/dL in a nonstressed, ambulatory subject supports the diagnosis of Diabetes Mellitus. PERFORMED BY: [place] [address] PATHOLOGIST STEM SHAPER RAMYA NEVES M.D. Performed By: #### H S TROP, CMP, CBC, MG #### [address] Basic Metabolic Panelon 08 Calcium [Mass/Vol] 8.0 mg/dL Low 8.2-10.2 [facility] Comment on above: Performed By: #### B MP, MG, CBC #### [place] [address] [place] Chloride [Moles/Vol] 100 mmol/L Normal 95-114 [facility] Comment on above: Performed By: #### B MP, MG, CBC #### [place] [address] [place] CO2 [Moles/Vol] 19.9 mmol/L Low 22.0-30.0 [facility] Comment on above: Performed By: #### B MP, MG, CBC #### [address] Creatinine [Mass/Vol] 0.65 mg/dL Normal 0.44-1.03 [facility] Comment on above: Performed By: #### B MP, MG, CBC #### [facility] [address] [place] [address] [place] Creatinine Clr Calc Pharmacy 85.09 [facility] Comment on above: Performed By: #### B MP, MG, CBC #### [facility] [address] Estimated GFR ( [place] > 60 [facility] Comment on above: Result Comment: GFR estimated reference range: According to KDOQI guidelines, <60 ml/min/1.73m2 is sufficient to diagnose a patient with chronic kidney disease. Performed By: #### B MP, MG, CBC #### [facility] [address] Estimated GFR (Non- Am > 60 [facility] Comment on above: Performed By: #### B MP, MG, CBC #### [address] Glucose [Mass/Vol] 312 mg/dL High 70-100 [facility] Comment on above: Result Comment: [place] Glucose Reference Range is dependent on time and content of last meal. Glucose of more than 200 mg/dL in a nonstressed, ambulatory subject supports the diagnosis of Diabetes Mellitus. ADA recommended reference range Performed By: #### B MP, MG, CBC #### [address] Potassium [Moles/Vol] 3.6 mmol/L Normal 3.5-5.1 [facility] Comment on above: Performed By: #### B MP, MG, CBC #### [place] [address] [place] Sodium [Moles/Vol] 133 mmol/L Low 136-146 [facility] Comment on above: Performed By: #### B MP, MG, CBC #### [address] Urea nitrogen [Mass/Vol] 16 mg/dL Normal 9-23 [facility] Comment on above: Performed By: #### B MP, MG, CBC #### [facility] [address] [place], [place] [id number] [facility] COVID[facility] SARS-CoV-2 (COVID-19) RNA ISAC+probe Ql (Unsp spec) Negative Normal Negative [facility] Comment on above: Order Comment: Healt hcare Worker?: N Result Comment: Testing for SARS-CoV-2 by RT-PCR This test was developed and its performance characteristics determined by [employer] and validated at the [facility]. This test has not been FDA cleared or approved. This test has been authorized by FDA under an Emergency Use Authorization (EUA). This test has been validated in accordance with the FDA's Guidance Document (Policy for Diagnostics Testing in Laboratories Certified to Perform High Complexity Testing under CLIA prior to Emergency Use Authorization for Coronavirus Disease-2019 during the Public Health Emergency) issued on January 02, 2020. This test is only authorized for the duration of time the declaration that circumstances exist justifying the authorization of the emergency use of in vitro diagnostic tests for detection of SARS-CoV-2 virus and/or diagnosis of COVID-19 infection under section 564(b)(1) of the Act, 21 U.S.C. 360bbb-3(b)(1), unless the authorization is terminated or revoked sooner. PERFORMED BY: [place] [address] PATHOLOGIST STEM SHAPER RAMYA NEVES M.D. Performed By: #### H S TROP, CMP, CBC, MG #### [facility] [address] [place], [place] [address] [facility] CT angio chest PE protocolon 05-12-2021 CT angio chest PE protocol [facility] Main [place] [address] [place] [address] CT Scan Report Signed Patient: Elsa Catalan MR#: [id number] 0 : 1960 Acct:[id number] Age/Sex: 60 / F ADM Date: 05/11/21 Loc: Room: [address] [place] [address] Type: ADM INOo Attending Dr: Obdulia Garcia MD Ordering Provider: Obdulia Garcia MD Date of Service: 05/12/21 CT/CT angio chest PE protocol: dysnea, syncioe and elevated troponins Copies to: Obdulia Garcia MD CTA chest with PE protocol TECHNIQUE: Axial imaging with 2-D and 3-D reconstruction. 90cc of Isovue-[address] exam was performed using one or more the following dose reduction techniques: Automated exposure control, adjustment of the MA and/or Kv according to patient size, or use of the iterative reconstruction technique. History: Shortness of breath. COMPARISON: None The thyroid gland is normal. Central airway is patent. Esophagus is normal in course and caliber. Heart is not enlarged. No pericardial effusion is seen. Nonenlarged mediastinal lymph nodes identified. No hilar mass or adenopathy is seen. No pulmonary embolus is identified. No thoracic aortic aneurysm is seen. Atherosclerosis identified. No lung nodules identified.. No infiltrate or congestion identified. No pleural effusion identified. No pneumothorax identified. No chest wall abnormality seen. The bony structures are intact. Images of the upper abdomen are noncontributory. CT/CT angio chest PE protocol IMPRESSION: No pulmonary embolus. No acute findings. Impression dictated by: Matt Beckham M.D.05/12/2021 1:40 PM Dictation Location: [place] [address] Transcribed By: [facility] 05/12/21 1340 Dictated By: Matt Beckham DO 05/12/21 1333 Signed By: 05/12/21 1340 [facility] Complete Blood Count Auto Di ffon 05-12-2021 Basophils (Bld) [#/Vol] 0.0 10*3/uL Normal 0.0-0.2 [facility] Comment on above: Result Comment: PERF ORMED BY: [place] [address] PATHOLOGIST STEM SHAPER RAMYA NEVES M.D. Performed By: #### B MP, MG, CBC #### [address] [address] [facility] Basophils/100 WBC (Bld) 0.4 % Normal . [facility] Comment on above: Performed By: #### B MP, MG, CBC #### [place] [address] Eosinophils (Bld) [#/Vol] 0.0 10*3/uL Normal 0.0-0.45 [facility] Comment on above: Performed By: #### B MP, MG, CBC #### [address] Eosinophils/100 WBC (Bld) 0.0 % Normal . [facility] Comment on above: Performed By: #### B MP, MG, CBC #### [address] Erythrocyte distribution width (RBC) [Ratio] 16.3 % High 11.9-15.3 [facility] Comment on above: Performed By: #### B MP, MG, CBC #### [address] Hematocrit (Bld) [Volume fraction] 36.4 % Normal 34.0-46.4 [facility] Comment on above: Performed By: #### B MP, MG, CBC #### [address] Hemoglobin (Bld) [Mass/Vol] 12.1 g/dL Normal 11.8-15.4 [facility] Comment on above: Performed By: #### B MP, MG, CBC #### [address] Lymphocytes (Bld) [#/Vol] 2.0 10*3/uL Normal 1.00-4.8 [facility] Comment on above: Performed By: #### B MP, MG, CBC #### [address] Lymphocytes/100 WBC (Bld) 16.8 % Normal . [facility] Comment on above: Performed By: #### B MP, MG, CBC #### [address] MCH (RBC) [Entitic mass] 30.1 pg Normal 24.7-34.3 [facility] Comment on above: Performed By: #### B MP, MG, CBC #### [facility] [address] MCV (RBC) [Entitic vol] 90.7 fL Normal 80-100 [facility] Comment on above: Performed By: #### B MP, MG, CBC #### [facility] [address] Mean Corpuscular HGB Conc 33.2 g/dL Normal 32.0-35.0 [facility] Comment on above: Performed By: #### B MP, MG, CBC #### [facility] [address] [address] Monocytes (Bld) [#/Vol] 0.8 10*3/uL Normal 0.0-0.8 [facility] Comment on above: Performed By: #### B MP, MG, CBC #### [facility] [address] Monocytes/100 WBC (Bld) 6.8 % Normal . [facility] Comment on above: Performed By: #### B MP, MG, CBC #### [facility] [address] Neutrophils (Bld) [#/Vol] 8.9 10*3/uL High 1.8-7.7 [facility] Comment on above: Performed By: #### B MP, MG, CBC #### [facility] [address] Neutrophils/100 WBC (Bld) 76.0 % Normal . [facility] Comment on above: Performed By: #### B MP, MG, CBC #### [facility] [address] [place] [address] [place] Nucleated RBC/100 WBC (Bld) [Ratio] 0.0 % Normal 0-0.5 [facility] Comment on above: Performed By: #### B MP, MG, CBC #### [facility] [address] Platelet mean volume (Bld) [Entitic vol] 7.5 fL Normal 6.3-10.7 [facility] Comment on above: Performed By: #### B MP, MG, CBC #### [facility] [address] Platelets (Bld) [#/Vol] 372 10*3/uL Normal 150-450 [facility] Comment on above: Performed By: #### B MP, MG, CBC #### [facility] [address] [place] [address] RBC (Bld) [#/Vol] 4.01 10*6/uL Normal 3.60-5.00 [facility] Comment on above: Performed By: #### B MP, MG, CBC #### [place] [address] [place] WBC (Bld) [#/Vol] 11.7 10*3/uL High 4.5-11.0 [facility] Comment on above: Performed By: #### B MP, MG, CBC #### [place] [address] [place] Basophils (Bld) [#/Vol] 0.1 10*3/uL Normal 0.0-0.2 [facility] Comment on above: Result Comment: PERF ORMED BY: [place] [address] PATHOLOGIST STEM SHAPER RAMYA NEVES M.D. Performed By: #### H S TROP, CMP, CBC, MG #### [place] [address] [place] Basophils/100 WBC (Bld) 0.8 % Normal . [facility] Comment on above: Performed By: #### H S TROP, CMP, CBC, MG #### [facility] [address] [place] [address] [place] Eosinophils (Bld) [#/Vol] 0.0 10*3/uL Normal 0.0-0.45 [facility] Comment on above: Performed By: #### H S TROP, CMP, CBC, MG #### [place] [address] [place] Eosinophils/100 WBC (Bld) 0.0 % Normal . [facility] Comment on above: Performed By: #### H S TROP, CMP, CBC, MG #### [address] Erythrocyte distribution width (RBC) [Ratio] 16.7 % High 11.9-15.3 [facility] Comment on above: Performed By: #### H S TROP, CMP, CBC, MG #### [address] Hematocrit (Bld) [Volume fraction] 36.7 % Normal 34.0-46.4 [facility] Comment on above: Performed By: #### H S TROP, CMP, CBC, MG #### [address] Hemoglobin (Bld) [Mass/Vol] 12.1 g/dL Normal 11.8-15.4 [facility] Comment on above: Performed By: #### H S TROP, CMP, CBC, MG #### [address] Lymphocytes (Bld) [#/Vol] 1.0 10*3/uL Normal 1.00-4.8 [facility] Comment on above: Performed By: #### H S TROP, CMP, CBC, MG #### [address] Lymphocytes/100 WBC (Bld) 9.3 % Normal . [facility] Comment on above: Performed By: #### H S TROP, CMP, CBC, MG #### [address] MCH (RBC) [Entitic mass] 30.5 pg Normal 24.7-34.3 [facility] Comment on above: Performed By: #### H S TROP, CMP, CBC, MG #### [address] MCV (RBC) [Entitic vol] 92.2 fL Normal 80-100 [facility] Comment on above: Performed By: #### H S TROP, CMP, CBC, MG #### [address] [place] [address] [place] Mean Corpuscular HGB Conc 33.1 g/dL Normal 32.0-35.0 [facility] Comment on above: Performed By: #### H S TROP, CMP, CBC, MG #### [facility] [address] Monocytes (Bld) [#/Vol] 0.1 10*3/uL Normal 0.0-0.8 [facility] Comment on above: Performed By: #### H S TROP, CMP, CBC, MG #### [address] Monocytes/100 WBC (Bld) 1.1 % Normal . [facility] Comment on above: Performed By: #### H S TROP, CMP, CBC, MG #### [address] Neutrophils (Bld) [#/Vol] 9.6 10*3/uL High 1.8-7.7 [facility] Comment on above: Performed By: #### H S TROP, CMP, CBC, MG #### [address] Neutrophils/100 WBC (Bld) 88.8 % Normal . [facility] Comment on above: Performed By: #### H S TROP, CMP, CBC, MG #### [place] [address] [place] Nucleated RBC/100 WBC (Bld) [Ratio] 0.0 % Normal 0-0.5 [facility] Comment on above: Performed By: #### H S TROP, CMP, CBC, MG #### [facility] [address] [place] [address] [place] Platelet mean volume (Bld) [Entitic vol] 7.7 fL Normal 6.3-10.7 [facility] Comment on above: Performed By: #### H S TROP, CMP, CBC, MG #### [facility] [address] [place] [address] [place] Platelets (Bld) [#/Vol] 358 10*3/uL Normal 150-450 [facility] Comment on above: Performed By: #### H S TROP, CMP, CBC, MG #### [facility] [address] [place] [address] RBC (Bld) [#/Vol] 3.98 10*6/uL Normal 3.60-5.00 [facility] Comment on above: Performed By: #### H S TROP, CMP, CBC, MG #### [address] WBC (Bld) [#/Vol] 10.8 10*3/uL Normal 4.5-11.0 [facility] Comment on above: Performed By: #### H S TROP, CMP, CBC, MG #### [address] Comprehensive Metabolic Pane le 05-12-2021 Albumin [Mass/Vol] 3.2 g/dL Normal 3.2-5.5 [facility] Comment on above: Performed By: #### H S TROP, CMP, CBC, MG #### [address] Albumin/Globulin [Mass ratio] 0.7 {ratio} Normal [facility] Comment on above: Performed By: #### H S TROP, CMP, CBC, MG #### [address] ALP [Catalytic activity/Vol] 69 U/L Normal 32-92 [facility] Comment on above: Performed By: #### H S TROP, CMP, CBC, MG #### [facility] [address] [place] [address] ALT [Catalytic activity/Vol] 21 U/L Normal 10-60 [facility] Comment on above: Performed By: #### H S TROP, CMP, CBC, MG #### [address] AST [Catalytic activity/Vol] 20 U/L Normal 10-42 [facility] Comment on above: Performed By: #### H S TROP, CMP, CBC, MG #### [address] [place] [address] [place] Bilirubin [Mass/Vol] 0.6 mg/dL Normal 0.3-1.2 [facility] Comment on above: Performed By: #### H S TROP, CMP, CBC, MG #### [facility] [address] [place] [address] Calcium [Mass/Vol] 8.1 mg/dL Low 8.2-10.2 [facility] Comment on above: Performed By: #### H S TROP, CMP, CBC, MG #### [address] Chloride [Moles/Vol] 100 mmol/L Normal 95-114 [facility] Comment on above: Performed By: #### H S TROP, CMP, CBC, MG #### [address] CO2 [Moles/Vol] 17.0 mmol/L Low 22.0-30.0 [facility] Comment on above: Performed By: #### H S TROP, CMP, CBC, MG #### [address] Creatinine [Mass/Vol] 0.73 mg/dL Normal 0.44-1.03 [facility] Comment on above: Performed By: #### H S TROP, CMP, CBC, MG #### [facility] [address] [place] [address] [place] Creatinine Clr Calc Pharmacy 75.76 [facility] Comment on above: Performed By: #### H S TROP, CMP, CBC, MG #### [address] Estimated GFR ( [place] > 60 [facility] Comment on above: Result Comment: GFR estimated reference range: According to KDOQI guidelines, <60 ml/min/1.73m2 is sufficient to diagnose a patient with chronic kidney disease. Performed By: #### H S TROP, CMP, CBC, MG #### [facility] [address] [place] [address] Estimated GFR (Non- Am > 60 [facility] Comment on above: Performed By: #### H S TROP, CMP, CBC, MG #### [facility] [address] [place] [address] [place] Globulin (S) [Mass/Vol] 4.5 g/dL Normal [facility] Comment on above: Performed By: #### H S TROP, CMP, CBC, MG #### [facility] [address] Glucose [Mass/Vol] 407 mg/dL High 70-100 [facility] Comment on above: Result Comment: [facility] Glucose Reference Range is dependent on time and content of last meal. Glucose of more than 200 mg/dL in a nonstressed, ambulatory subject supports the diagnosis of Diabetes Mellitus. ADA recommended reference range Performed By: #### H S TROP, CMP, CBC, MG #### [facility] [address] Potassium [Moles/Vol] 3.7 mmol/L Normal 3.5-5.1 [facility] Comment on above: Performed By: #### H S TROP, CMP, CBC, MG #### [facility] [address] [place] [address] [place] Protein [Mass/Vol] 7.7 g/dL Normal 6.1-7.9 [facility] Comment on above: Performed By: #### H S TROP, CMP, CBC, MG #### [facility] [address] [place] [address] [place] Sodium [Moles/Vol] 132 mmol/L Low 136-146 [facility] Comment on above: Performed By: #### H S TROP, CMP, CBC, MG #### [facility] [address] [place] [address] [place] Urea nitrogen [Mass/Vol] 17 mg/dL Normal 9-23 [facility] Comment on above: Performed By: #### H S TROP, CMP, CBC, MG #### [facility] [address] ECG 12 lead ECGon 05-12-2021 ECG 12 lead ECG [facility] [place] [address] [place] [address] Electrocardiograph Report Signed Patient: Elsa Catalan MR#: [id number] 0 : 1960 Acct:[id number] Age/Sex: 60 / F ADM Date: 05/11/21 Loc: Room: [address] [place] [address] Type: ADM INOo Attending Dr: Obdulia Garcia MD Ordering Provider: Geri Angel MD Date of Service: 05/12/21 ECG/ECG 12 lead ECG: SOB Copies to: Test Reason : Blood Pressure : / mmHG Vent. Rate : 102 BPM Atrial Rate : 102 BPM P-R Int : 132 ms QRS Dur : 076 ms QT Int : 378 ms P-R-T Axes : 068 038 068 degrees QTc Int : 492 ms Sinus tachycardia Otherwise normal ECG When compared with ECG of 11-MAY-2021 22:47, Nonspecific T wave abnormality no longer evident in Lateral leads Confirmed by NOEMY ZAMORA MD ([id number]) on 05/12/2021 7:03:01 PM Referred By: Electronically Signed By:NOEMY ZAMORA MD Transcribed By: MUS Dictated By: Noemy Zamora MD 05/12/21 0846 Signed By: 05/12/21 190 [facility] ECG 12 lead ECG [place] [address] Electrocardiograph Report Signed Patient: Elsa Catalan MR#: [id number] 0 : 1960 Acct:[id number] Age/Sex: 60 / F ADM Date: 05/11/21 Loc: Room: [address] [place] [address] Type: ADM INOo Attending Dr: Obdulia Garcia MD Ordering Provider: Geri Angel MD Date of Service: 05/11/21 ECG/ECG 12 lead ECG: shortness of breath Copies to: Test Reason : Blood Pressure : / mmHG Vent. Rate : 098 BPM Atrial Rate : 098 BPM P-R Int : 140 ms QRS Dur : 072 ms QT Int : 398 ms P-R-T Axes : 084 045 095 degrees QTc Int : 508 ms Normal sinus rhythm Low voltage QRS Cannot rule out Anterior infarct , age undetermined Abnormal ECG No previous ECGs available Confirmed by LAN CANALES DO, FACC ([id number]) on 05/12/2021 10:51:41 AM Referred By: Electronically Signed By:LAN CANALES DO, FACC Transcribed By: MUS Dictated By: Lan Canales DO 05/11/21 2247 Signed By: 05/12/21 1051 Normal [facility] echo transthoracicon [facility] echo transthoracic [facility] [place] [address] [place] [address] Echocardiogram Signed Patient: Elsa Catalan MR#: [id number] 0 : 1960 Acct:[id number] Age/Sex: 60 / F ADM Date: 05/11/21 Loc: Room: [address] [place] [address] Type: ADM INOo Attending Dr: Obdulia Garcia MD Ordering Provider: Geri Angel MD Date of Service: 05/11/21 [facility] transthoracic: CP Copies to: MD Lan Lucas DO Weight: 146 lb Performed By: Bee Sotelo RDCS BSA: 1.7 m2 BP: 133/75 mmHg HR: 98 Reason For Study: CP History: Asthma. DM. GERD. Family history of CAD. Interpretation Summary Mild concentric left ventricular hypertrophy. Ejection Fraction = 60-65%. There is left ventricular diastolic dysfunction. The left ventricular wall motion is normal. There is trace mitral regurgitation. There is trace tricuspid regurgitation. There is no comparison study available. Procedure/Quality: A two-dimensional transthoracic echocardiogram with color flow and Doppler was performed. The study was technically fair in quality. Left Ventricle: Mild concentric left ventricular hypertrophy. Ejection Fraction = 60-65%. There is left ventricular diastolic dysfunction. The left ventricular wall motion is normal. No left ventricular thrombus or mass is seen. Left Atrium: The left atrium appears normal in size. Right Atrium: The right atrium appears normal in size. Right Ventricle: The right ventricle is normal in size and function. Aortic Valve: The aortic valve is mildly sclerotic. No hemodynamically significant valvular aortic stenosis. No aortic regurgitation is present. Mitral Valve: The mitral valve is normal. There is no mitral valve stenosis. There is trace mitral regurgitation. Tricuspid Valve: The tricuspid valve is normal in structure and function. There is trace tricuspid regurgitation. Pulmonic Valve: The pulmonic valve is not well seen, but is grossly normal. Arteries: The aortic root is normal size. Pericardium/Pleura: No pericardial effusion seen. IVC/Hepatic Viens: The IVC is normal in size with an inspiratory collapse of greater then 50%, suggesting normal right atrial pressure. Measurements with Normals IVSd: 1.3 cm (0.7-1.1 cm)LVIDd: 3.9 cm (3.7-5.4 cm) LVPWd: 0.99 cm (0.7-1.1 cm)LVIDs: 2.6 cm (2.3-3.6 cm) LA dimension: 2.9 cm(2.3-4.0 cm)Ao root diam: 2.7 cm(2.0-3.2 cm) Doppler with Normals RVSP(TR): 21.4 mmHg (18-35mmHg) LV V1 max: 93.1 cm/sec (0.7-1.7m/s)MV E max clemencia: 63.5 cm/sec(0.8-1.3m/s) MV A max clemencia: 105.3 cm/sec(0.0-0.0m/s) MV E/A: 0.60 (<1.5) MMode/2D Measurements Calculations RVDd: 2.5 cm FS: 34.1 % Ao root area: LVOT diam: 1.8 cm TAPSE: 2.3 cm EDV(Teich): 66.1 ml 5.9 cm2 LVOT area: 2.6 cm2 RV S Clemencia: ESV(Teich): 24.0 ml 12.9 cm/sec EF(Teich): 63.7 % __ LVLd ap4: 7.5 cm CO(MOD-sp4): LAV(MOD-sp4): LA A2 area: 12.5 cm2 EDV(MOD-sp4): 4.6 l/min 36.3 ml 74.7 ml SV(MOD-sp4): LAV(MOD-sp2): LA A4 area: 13.8 cm2 LVLs ap4: 6.2 cm 48.4 ml 29.5 ml LA length (vol): ESV(MOD-sp4): 4.5 cm 26.3 ml LA vol: 32.4 ml EF(MOD-sp4): 64.8 % LA vol index: 19.0 ml/m2 Time Measurements MM HR: 95.0 BPM Doppler Measurements Calculations MV dec time: E/E' lat: 9.3 MV dec slope: Ao V2 max: 0.20 sec E/E' med: 13.6 143.9 cm/sec 311.1 cm/sec2 Ao max P.3 mmHg UNIQUE(V,D): 1.7 cm2 __ LV V1 max PG: TV max PG: TR max clemencia: 3.5 mmHg 18.0 mmHg 214.5 cm/sec TR max P.4 mmHg RAP systole: 3.0 mmHg Transcribed By: ISRAEL 05/12/21 1203 Dictated By: Lan Canales DO 05/12/21 1020 Signed By: 05/12/21 1203 [facility] Glucose Poct Glucometerson 0 05-12-2021 Glucose [Mass/Vol] 188 mg/dL [facility] Comment on above: Result Comment: [facility] Glucose Reference Range is dependent on time and content of last meal. Glucose of more than 200 mg/dL in a nonstressed, ambulatory subject supports the diagnosis of Diabetes Mellitus. PERFORMED BY: [facility] [address] [place] [address] PATHOLOGIST STEM SHAPER RAMYA NEVES M.D. Performed By: #### H S TROP, CMP, CBC, MG #### [facility] [address] Commemt1 Glu2: Cleaned Meter [facility] Comment on above: Result Comment: PERF ORMED BY: [place] [address] PATHOLOGIST STEM SHAPER RAMYA NEVES M.D. Performed By: #### H S TROP, CMP, CBC, MG #### [facility] [address] [place] [address] Glucose [Mass/Vol] 138 mg/dL [facility] Comment on above: Result Comment: [place] [facility] Glucose Reference Range is dependent on time and content of last meal. Glucose of more than 200 mg/dL in a nonstressed, ambulatory subject supports the diagnosis of Diabetes Mellitus. Performed By: #### H S TROP, CMP, CBC, MG #### [facility] [address] [place] [address] Commemt1 [facility] Comment on above: Result Comment: Glu2 : Will Repeat Test Performed By: #### H S TROP, CMP, CBC, MG #### [facility] [address] [place] [address] WILL NOT[address]/RN [facility] Comment on above: Performed By: #### H S TROP, CMP, CBC, MG #### [facility] [address] [place] [address] Commemt3 Cleaned Meter [facility] Comment on above: Result Comment: PERF ORMED BY: [place] [address] PATHOLOGIST STEM SHAPER RAMYA NEVES M.D. Performed By: #### H S TROP, CMP, CBC, MG #### [facility] [address] [place] [address] Glucose [Mass/Vol] 400 mg/dL Off scale [facility] Comment on above: Result Comment: [place] [facility] Glucose Reference Range is dependent on time and content of last meal. Glucose of more than 200 mg/dL in a nonstressed, ambulatory subject supports the diagnosis of Diabetes Mellitus. Performed By: #### H S TROP, CMP, CBC, MG #### [facility] [address] [place] [address] Commemt1 Glu2: Cleaned Meter Normal [facility] Comment on above: Performed By: #### H S TROP, CMP, CBC, MG #### [facility] [address] [place] [address] Commemt2 Will Repeat Test [facility] Comment on above: Performed By: #### H S TROP, CMP, CBC, MG #### [facility] [address] [place] [address] WILL [address]/RN Normal [facility] Comment on above: Result Comment: PERF ORMED BY: [place] [address] PATHOLOGIST STEM SHAPER RAMYA NEVES M.D. Performed By: #### H S TROP, CMP, CBC, MG #### [address] Glucose [Mass/Vol] 415 mg/dL Off scale high [facility] Comment on above: Result Comment: [facility] Glucose Reference Range is dependent on time and content of last meal. Glucose of more than 200 mg/dL in a nonstressed, ambulatory subject supports the diagnosis of Diabetes Mellitus. Performed By: #### H S TROP, CMP, CBC, MG #### [address] Magnesiumon 05-12-2021 Magnesium [Mass/Vol] 1.7 mg/dL Normal 1.6-2.6 [facility] Comment on above: Result Comment: PERF ORMED BY: [place] [address] PATHOLOGIST STEM SHAPER RAMYA NEVES M.D. Performed By: #### B MP, MG, CBC #### [facility] [address] [place] [address] Magnesium [Mass/Vol] 1.7 mg/dL Normal 1.6-2.6 [facility] Comment on above: Result Comment: PERF ORMED BY: [place] [address] PATHOLOGIST STEM SHAPER RAMYA NEVES M.D. Performed By: #### H S TROP, CMP, CBC, MG #### [facility] [address] [place] [address] [place] Troponin I High Sensitivityo n 05-12-2021 Troponin I High Sensitivity 247 pg/mL Off scale high 0-15 [facility] Comment on above: Result Comment: PERF ORMED BY: [place] [address] PATHOLOGIST STEM SHAPER RAMYA NEVES M.D. Performed By: #### H S TROP #### [address] Troponin I High Sensitivity 220 pg/mL Off scale high 0-15 [facility] Comment on above: Result Comment: PERF ORMED BY: [place] [address] PATHOLOGIST STEM SHAPER RAMYA NEVES M.D. Performed By: #### H S TROP #### [address] Troponin I High Sensitivity 237 pg/mL Off scale high 0-15 [facility] Comment on above: Result Comment: Resu lts called at 0131 on 05/12/21 PERFORMED BY: [place] [address] PATHOLOGIST STEM SHAPER RAMYA NEVES M.D. Performed By: #### H S TROP, CMP, CBC, MG #### [address] XR chest 1V portableon 05-12 XR chest 1V portable [facility] [place] [address] [place] [address] XRay Report Signed Patient: Elsa Catalan MR#: [id number] 0 : 1960 Acct:[id number] Age/Sex: 60 / F ADM Date: 05/11/21 Loc: Room: [address] [place] [address] Type: ADM IN Attending Dr: Obdulia Garcia MD Ordering Provider: Geri Angel MD Date of Service: 05/11/21 XR/XR chest 1V portable: shortness of breath Copies to: MD Obdulia Lucas MD PORTABLE AP ERECT CHEST 2304 hours CLINICAL HISTORY: This of breath COMPARISON: 04/12/2014 The heart is within normal limits. There is no vascular congestion. The lungs, as visualized, are clear. There is no effusion or pneumothorax. The osseous structures are intact. There is slight dextroscoliotic curvature. XR/XR chest 1V portable IMPRESSION: NO ACUTE FINDINGS Impression dictated by: Adrienne Fermin M.D.05/12/2021 9:29 AM Dictation Location: [place] [address] Transcribed By: [facility] 05/12/21928 Dictated By: Adrienne Fermin MD 05/12/21927 Signed By: 05/12/21928 [facility] XR lumbar spine 6V w bending on 11-27-2020 XR lumbar spine 6V w bending [place] [address] XRay Report Signed Patient: Elsa Catalan MR#: [id number] 0 : 1960 Acct:[id number] Age/Sex: 60 / F ADM Date: 11/27/20 Loc: [place] Room: Type: [facility] Attending Dr: Sam Rothman MD Ordering Provider: Sam Rothman MD Date of Service: 11/27/20 XR/XR lumbar spine 6V w bending: Radiculopathy, lumbar region Copies to: Sam Rothman MD CLINICAL INFORMATION: Low back pain radiating down to the right leg for years. No known injury. LUMBAR SPINE WITH FLEXION AND EXTENSION AND LATERAL BENDING: COMPARISON: 10/19/2020 from [facility] FINDINGS: Standing AP, lateral, flexion, extension, with lateral bending views were submitted. There is mild osteopenia of the visualized bony structures without compression deformity. There is a stable bony alignment in various positions. Significant disc narrowing is shown at L5-S1 with degenerative vacuum phenomenon within the disc space. Mild posterior osteophytosis is noted at this level. The remaining disc spaces are maintained. Facet joint arthrosis is demonstrated at the mid and the lower lumbar spine, more pronounced at L4-L5 and L5-S1. Moderately diffuse vascular calcifications are demonstrated along the abdominal aorta. XR/XR lumbar spine 6V w bending IMPRESSION: STABLE BONY ALIGNMENT. SIGNIFICANT DISC NARROWING AT L5-S1. 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 Impression dictated by: Felipe Watson M.D.11/27/2020 11:48 AM Dictation Location: [place] [address] Transcribed By: TARA 11/27/20 1148 Dictated By: Felipe Watson MD 11/27/20 1139 Signed By: 11/27/20 1148 [facility] POC Glucoseon 04-08-2020 Glucose [Mass/Vol] 139 mg/dL High 65 - 99 [facility] and review of laboratory results Abnormal [facility] Glucose [Mass/Vol] 77 mg/dL 65 - 99 mg/dL [facility] Interpretation and review of laboratory results Normal [facility] Glucose [Mass/Vol] 83 mg/dL 65 - 99 mg/dL [facility] Interpretation and review of laboratory results Normal [facility] SCAN OTHER ORDERSon 04-08-20 20 Ordered by an unspecified provider. [facility] Basic Metabolic Panelon 10-02 Anion gap [Moles/Vol] 19 mmol/L 10 - 20 mmol/L [facility] Calcium [Mass/Vol] 8.1 mg/dL Low 8.4 - 10. 2 mg/dL [facility] Chloride [Moles/Vol] 96 mmol/L Low 98 - 108 mmol/L [facility] Creatinine [Mass/Vol] 0.71 mg/dL 0.4 - 1.1 mg/dL [facility] GFR/1.73 sq M predicted among non-blacks MDRD (S/P/Bld) [Vol rate/Area] The eGFR should be used for monitoring renal function only and not for medication dosing. [facility] GFR/1.73 sq M.predicted CKD-EPI (S/P/Bld) [Vol rate/Area] 93 >=60 mL/min/1.73 m2 [facility] Glucose [Mass/Vol] 206 mg/dL High 65 - 99 mg/dL [facility] HCO3 [Moles/Vol] 23 mmol/L 21 - 32 mmol/L [facility] Interpretation and review of laboratory results Abnormal [facility] Potassium [Moles/Vol] 3.3 mmol/L Low 3.5 - 5.1 mmol/L [facility] Sodium [Moles/Vol] 135 mmol/L 135 - 145 mmol/L [facility] Urea nitrogen [Mass/Vol] 18 mg/dL 8 - 25 mg/dL [facility] Urea nitrogen/Creatinine [Mass ratio] 25.4 mg/mg High [facility] CBC WITH AUTO DIFFERENTIALon 10-14-2019 Basophils (Bld) [#/Vol] 0.04 10*3/uL [facility] Basophils/100 WBC (Bld) 0.5 % [facility] Eosinophils (Bld) [#/Vol] 0.00 10*3/uL [facility] Eosinophils/100 WBC (Bld) 0.0 % [facility] Erythrocyte distribution width (RBC) [Entitic vol] 14.0 % 11.6 - 14.8 % [facility] Hematocrit (Bld) [Volume fraction] 33.6 % Low 36 - 46 % [facility] Hemoglobin (Bld) [Mass/Vol] 11.1 g/dL Low 12 - 16 g/dL [facility] Immature granulocytes (Bld) [#/Vol] 0.01 10*3/uL [facility] Immature granulocytes/100 WBC (Bld) 0.10 % [facility] Comment on above: The IG parameter is the percentage of metamyelocytes, myelocytes, and promyelocytes. Interpretation and review of laboratory results Abnormal [facility] Lymphocytes (Bld) [#/Vol] 2.22 10*3/uL [facility] Lymphocytes/100 WBC (Bld) 28.2 % [facility] MCH (RBC) [Entitic mass] 29.3 pg 26 - 34 pg [facility] MCHC (RBC) [Mass/Vol] 33.0 g/dL 31 - 37 g/dL [facility] MCV (RBC) [Entitic vol] 88.7 fL 80 - 100 fL [facility] Monocytes (Bld) [#/Vol] 0.57 10*3/uL [facility] Monocytes/100 WBC (Bld) 7.2 % [facility] Neutrophils (Bld) [#/Vol] 5.04 10*3/uL [facility] Neutrophils/100 WBC (Bld) 64.0 % [facility] Nucleated RBC (Bld) [#/Vol] 0.00 10*3/uL [facility] Nucleated RBC/100 WBC (Bld) [Ratio] 0.0 % [facility] Platelet mean volume (Bld) [Entitic vol] 9.2 fL 9 - 15.5 fL [facility] Platelets (Bld) [#/Vol] 390 10*3/uL [facility] RBC (Bld) [#/Vol] 3.79 10*6/uL Low [facility] eah WBC (Bld) [#/Vol] 7.88 10*3/uL [facility] Glucoseon 10-14-2019 Glucose [Mass/Vol] 116 mg/dL High 65 - 99 mg/dL [facility] Interpretation and review of laboratory results Abnormal [facility] Glucose [Mass/Vol] 142 mg/dL High 65 - 99 mg/dL [facility] Interpretation and review of laboratory results Abnormal [facility] POC Glucoseon 10-13-2019 Glucose [Mass/Vol] 232 mg/dL High 65 - 99 [facility] and review of laboratory results Abnormal [facility] Glucose [Mass/Vol] 317 mg/dL High 65 - 99 mg/dL [facility] Interpretation and review of laboratory results Abnormal [facility] Glucose [Mass/Vol] 289 mg/dL High 65 - 99 mg/dL [facility] Interpretation and review of laboratory results Abnormal [facility] Glucose [Mass/Vol] 96 mg/dL 65 - 99 mg/dL [facility] Interpretation and review of laboratory results Normal [facility] CBC WITH AUTO DIFFERENTIALon 10-12-2019 Basophils (Bld) [#/Vol] 0.09 10*3/uL [facility] Basophils/100 WBC (Bld) 1.1 % [facility] Eosinophils (Bld) [#/Vol] 0.36 10*3/uL [facility] Eosinophils/100 WBC (Bld) 4.4 % [facility] Erythrocyte distribution width (RBC) [Entitic vol] 13.9 % 11.6 - 14.8 % [facility] Hematocrit (Bld) [Volume fraction] 34.6 % Low 36 - 46 % [facility] Hemoglobin (Bld) [Mass/Vol] 11.7 g/dL Low 12 - 16 g/dL [facility] Immature granulocytes (Bld) [#/Vol] 0.01 10*3/uL [facility] Immature granulocytes/100 WBC (Bld) 0.10 % [facility] Comment on above: The IG parameter is the percentage of metamyelocytes, myelocytes, and promyelocytes. Interpretation and review of laboratory results Abnormal [facility] Lymphocytes (Bld) [#/Vol] 2.96 10*3/uL [facility] Lymphocytes/100 WBC (Bld) 36.6 % [facility] MCH (RBC) [Entitic mass] 29.8 pg 26 - 34 pg [facility] MCHC (RBC) [Mass/Vol] 33.8 g/dL 31 - 37 g/dL [facility] MCV (RBC) [Entitic vol] 88.3 fL 80 - 100 fL [facility] Monocytes (Bld) [#/Vol] 0.72 10*3/uL [facility] Monocytes/100 WBC (Bld) 8.9 % [facility] Neutrophils (Bld) [#/Vol] 3.95 10*3/uL [facility] Neutrophils/100 WBC (Bld) 48.9 % [facility] Nucleated RBC (Bld) [#/Vol] 0.00 10*3/uL [facility] Nucleated RBC/100 WBC (Bld) [Ratio] 0.0 % [facility] Platelet mean volume (Bld) [Entitic vol] 9.3 fL 9 - 15.5 fL [facility] Platelets (Bld) [#/Vol] 378 10*3/uL [facility] RBC (Bld) [#/Vol] 3.92 10*6/uL Low [facility] WBC (Bld) [#/Vol] 8.09 10*3/uL [facility] Comprehensive Metabolic Pane le 10-12-2019 Albumin [Mass/Vol] 3.8 g/dL 3.2 - 5.2 g/dL [facility] ALP [Catalytic activity/Vol] 90 U/L 40 - 150 U/L [facility] ALT [Catalytic activity/Vol] 13 U/L 0 - 40 U/L [facility] Anion gap [Moles/Vol] 20 mmol/L 10 - 20 mmol/L [facility] AST [Catalytic activity/Vol] 19 U/L 0 - 45 U/L [facility] Bilirubin [Mass/Vol] 0.2 mg/dL 0 - 1.3 mg/dL [facility] Calcium [Mass/Vol] 9.2 mg/dL 8.4 - 10. 2 mg/dL [facility] Chloride [Moles/Vol] 97 mmol/L Low 98 - 108 mmol/L [facility] Creatinine [Mass/Vol] 0.84 mg/dL 0.4 - 1.1 mg/dL [facility] GFR/1.73 sq M predicted among non-blacks MDRD (S/P/Bld) [Vol rate/Area] The eGFR should be used for monitoring renal function only and not for medication dosing. [facility] GFR/1.73 sq M.predicted CKD-EPI (S/P/Bld) [Vol rate/Area] 76 >=60 mL/min/1.73 m2 [facility] Glucose [Mass/Vol] 240 mg/dL High 65 - 99 mg/dL [facility] HCO3 [Moles/Vol] 26 mmol/L 21 - 32 mmol/L [facility] Interpretation and review of laboratory results Abnormal [facility] Potassium [Moles/Vol] 3.7 mmol/L 3.5 - 5.1 mmol/L [facility] Protein [Mass/Vol] 8.7 g/dL High 6 - 8 g/dL [facility] Sodium [Moles/Vol] 139 mmol/L 135 - 145 mmol/L [facility] Urea nitrogen [Mass/Vol] 14 mg/dL 8 - 25 mg/dL [facility] Urea nitrogen/Creatinine [Mass ratio] 16.7 mg/mg [facility] POC Glucoseon 10-12-2019 Glucose [Mass/Vol] 195 mg/dL High 65 - 99 mg/dL [facility] Interpretation and review of laboratory results Abnormal [facility] Glucose [Mass/Vol] 130 mg/dL High 65 - 99 mg/dL [facility] Interpretation and review of laboratory results Abnormal [facility] PT/INRon 10-12-2019 INR Coag (PPP) [Relative time] 1.0 {INR} [facility] Interpretation and review of laboratory results Normal [facility] PT Coag (PPP) [Time] 12.7 s [facility] During the induction phase of oral anticoagulation, the INR may not reflect the anticoagulation status of the patient. Therapeutic ranges for INR's are: Most clinical situations: INR 2.0-3.0 Mechanical Prosthetic Valve: INR 2.5-3.5 Critical: INR >5.0 [facility] DEBRIDEMENTon 10-08-2019 Rose Mendoza CNP 10/08/2019 2:14 PM Wound Care Debridement Timeout: Verbal Consent obtained?: Yes Written Consent obtained?: Yes Consent given by: Patient Immediately prior to procedure a time out was called to verify the correct patient, procedure, equipment, sales support consultant and site/side marked as required Timeout performed: 10/08/2019 11:12 AM Debridement Procedure: Debridement Performed for Assessment: #2 Left Elbow Performed by: Clinician Debridement Type: Surgical Pain Control: 4% Lidocaine Level: Skin/Subcutaneous Tissue Pre-Debridement Values: Length (cm): 10.5 Width (cm): 4.5 Depth (cm): 0.1 Area (sq cm): 47.25 Volume (cm3): 4.73 Post Debridement Measurements: Length (cm): 11 Width (cm): 5 Depth (cm): 2 Area (sq cm): 55 Volume (cm3): 110 Percent Debrided: 100 Total Area Debrided (sq cm): 55 Tissue and other material debrided: Subcutaneous, Dermis and Epidermis Devitalized tissue debrided: Slough, Biofilm, Necrotic/Eschar, Callus and Clots Instrument: Curette, Blade and Forceps Bleeding: Moderate Hemostasis Achieved: Pressure and Silver Nitrate Procedural Pain: 2 Post Procedural Pain: 0 Response to Treatment: Procedure was tolerated well (...................... ....................... ....................... ...... ...............) [facility] Basic Metabolic Panelon 12-0 Anion gap [Moles/Vol] 17 mmol/L 10 - 20 mmol/L [facility] Calcium [Mass/Vol] 7.9 mg/dL Low 8.4 - 10. 2 mg/dL [facility] Chloride [Moles/Vol] 101 mmol/L 98 - 108 mmol/L [facility] Creatinine [Mass/Vol] 0.68 mg/dL 0.4 - 1.1 mg/dL [facility] GFR/1.73 sq M predicted among non-blacks MDRD (S/P/Bld) [Vol rate/Area] The eGFR should be used for monitoring renal function only and not for medication dosing. [facility] GFR/1.73 sq M.predicted CKD-EPI (S/P/Bld) [Vol rate/Area] 95 >=60 mL/min/1.73 m2 [facility] Glucose [Mass/Vol] 143 mg/dL High 65 - 99 mg/dL [facility] HCO3 [Moles/Vol] 23 mmol/L 21 - 32 mmol/L [facility] Interpretation and review of laboratory results Abnormal [facility] Potassium [Moles/Vol] 3.4 mmol/L Low 3.5 - 5.1 mmol/L [facility] Sodium [Moles/Vol] 138 mmol/L 135 - 145 mmol/L [facility] Urea nitrogen [Mass/Vol] 17 mg/dL 8 - 25 mg/dL [facility] Urea nitrogen/Creatinine [Mass ratio] 25.0 mg/mg High [facility] CBC WITH AUTO DIFFERENTIALon 09-05-2019 Basophils (Bld) [#/Vol] 0.07 10*3/uL [facility] Basophils/100 WBC (Bld) 0.7 % [facility] Eosinophils (Bld) [#/Vol] 0.06 10*3/uL [facility] Eosinophils/100 WBC (Bld) 0.6 % [facility] Erythrocyte distribution width (RBC) [Entitic vol] 14.0 % 11.6 - 14.8 % [facility] Hematocrit (Bld) [Volume fraction] 33.6 % Low 36 - 46 % [facility] Hemoglobin (Bld) [Mass/Vol] 11.0 g/dL Low 12 - 16 g/dL [facility] Immature granulocytes (Bld) [#/Vol] 0.02 10*3/uL [facility] Immature granulocytes/100 WBC (Bld) 0.20 % [facility] Comment on above: The IG parameter is the percentage of metamyelocytes, myelocytes, and promyelocytes. Interpretation and review of laboratory results Abnormal [facility] Lymphocytes (Bld) [#/Vol] 2.50 10*3/uL [facility] Lymphocytes/100 WBC (Bld) 25.6 % [facility] MCH (RBC) [Entitic mass] 29.2 pg 26 - 34 pg [facility] MCHC (RBC) [Mass/Vol] 32.7 g/dL 31 - 37 g/dL [facility] MCV (RBC) [Entitic vol] 89.1 fL 80 - 100 fL [facility] Monocytes (Bld) [#/Vol] 1.19 10*3/uL High [facility] Monocytes/100 WBC (Bld) 12.2 % [facility] Neutrophils (Bld) [#/Vol] 5.92 10*3/uL [facility] Neutrophils/100 WBC (Bld) 60.7 % [facility] Nucleated RBC (Bld) [#/Vol] 0.00 10*3/uL [facility] Nucleated RBC/100 WBC (Bld) [Ratio] 0.0 % [facility] Platelet mean volume (Bld) [Entitic vol] 9.1 fL 9 - 15.5 fL [facility] Platelets (Bld) [#/Vol] 311 10*3/uL [facility] RBC (Bld) [#/Vol] 3.77 10*6/uL Low [facility] eah WBC (Bld) [#/Vol] 9.76 10*3/uL [facility] POC Glucoseon 09-05-2019 Glucose [Mass/Vol] 115 mg/dL High 65 - 99 mg/dL [facility] Interpretation and review of laboratory results Abnormal [facility] Glucose [Mass/Vol] 92 mg/dL 65 - 99 mg/dL [facility] Interpretation and review of laboratory results Normal [facility] TSHon 09-05-2019 Interpretation and review of laboratory results Abnormal [facility] TSH Qn 8.81 m[IU]/L High [facility] URINALYSISon 09-05-2019 Bacteria Auto Ql (U) None Seen None Seen /hpf [facility] Bilirubin Ql (U) Negative Negative [facility] th Clarity Refractometry automated (U) Hazy Abnormal Clear [facility] Color (U) Yellow Colorless, Yellow [facility] Epithelial cells.squamous Auto (Urine sed) [#/Area] 6 High [facility] Glucose Auto test strip (U) [Mass/Vol] >=500 Abnormal Negative mg/dL [facility] Hemoglobin Auto test strip Ql (U) Negative Negative [facility] Interpretation and review of laboratory results Abnormal [facility] Ketones (U) [Mass/Vol] Negative Negative mg/dL [facility] Leukocyte esterase Auto test strip Ql (U) Negative Negative [facility] Mucus Auto (Urine sed) [#/Area] Rare None Seen, Rare /lpf [facility] Nitrite Auto test strip Ql (U) Negative Negative [facility] pH (U) 5.0 [pH] [facility] Protein (U) [Mass/Vol] Negative Negative mg/dL [facility] RBC Auto (Urine sed) [#/Area] <1 [facility] Specific gravity (U) [Rel density] 1.023 [facility] Urobilinogen (U) [Mass/Vol] <2.0 <2.0 mg/dL [facility] WBC Auto (Urine sed) [#/Area] 2 [facility] Microscopic examinat ion is performed on all urinalysis samples and only positive findings are reported. The test for blood on the chemical analytic portion of urinalysis may also be positive due to hemoglobinuria and myoglobinuria and if red blood cells are present they are quantified by microscopic examination. [facility] XR CHEST PA/APon 09-05-2019 XR CHEST PA/AP EXAMINATION: XR CHEST PA/AP HISTORY: ORDERING SYSTEM PROVIDED HISTORY: temp post-op, TECHNOLOGIST PROVIDED HISTORY: Illness/Other Reason for exam: temp post-op Cancer History: no Surgery, RadiationHistory: left elbow Encounter Type: Initial Additional signs and symptoms: n ORDERING SYSTEM PROVIDED DIAGNOSIS CODES: G89.18 Post-operative pain COMPARISON: None. FINDINGS: Portable, upright view of the chest is submitted. The cardiomediastinal silhouette, lungs, pleural spaces and pulmonary vasculature are within normal limits. No acute osseous abnormality is seen. IMPRESSION: No acute cardiopulmonary abnormality. VKR/trw Workstation ID: [id number] Dictated by: VU NESS on MonSep 05, 2019 10:42:53 AM EST Transcribed by: IGNACIO RUVALCABA on MonSep 05, 2019 10:54:07 AM EST Finalized by: VU NESS on MonSep 05, 2019 11:55:53 AM EST Normal [facility] Comment on above: Order Comment: Injur y/Trauma or Illness?:Illness/Other How long have you had these symptoms (acute/chronic)?:Acute Reason for exam?:temp post-op History of cancer?:no Surgeries, chemotherapy, or radiation?:left elbow Type of Exam?:Initial Additional signs and symptoms?:n XR Chest 1 Viewon 09-05-2019 EXAMINATION: XR CHES T PA/AP HISTORY: ORDERING SYSTEM PROVIDED HISTORY: temp post-op, TECHNOLOGIST PROVIDED HISTORY: Illness/Other Reason for exam: temp post-op Cancer History: no Surgery, RadiationHistory: left elbow Encounter Type: Initial Additional signs and symptoms: n ORDERING SYSTEM PROVIDED DIAGNOSIS CODES: G89.18 Post-operative pain COMPARISON: None. FINDINGS: Portable, upright view of the chest is submitted. The cardiomediastinal silhouette, lungs, pleural spaces and pulmonary vasculature are within normal limits. No acute osseous abnormality is seen. [facility] No acute cardiopulmonary abnormality. [employer] Workstation ID: [id number] [facility] Interface, Rad In Fu ji [employer] - 09/05/2019 11:58 AM EST EXAMINATION: XR CHEST PA/AP HISTORY: ORDERING SYSTEM PROVIDED HISTORY: temp post-op, TECHNOLOGIST PROVIDED HISTORY: Illness/Other Reason for exam: temp post-op Cancer History: no Surgery, RadiationHistory: left elbow Encounter Type: Initial Additional signs and symptoms: n ORDERING SYSTEM PROVIDED DIAGNOSIS CODES: G89.18 Post-operative pain COMPARISON: None. FINDINGS: Portable, upright view of the chest is submitted. The cardiomediastinal silhouette, lungs, pleural spaces and pulmonary vasculature are within normal limits. No acute osseous abnormality is seen. IMPRESSION: No acute cardiopulmonary abnormality. [employer] Workstation ID: [id number] [facility] POC Glucoseon 09-04-2019 Glucose [Mass/Vol] 126 mg/dL High 65 - 99 mg/dL [facility] Interpretation and review of laboratory results Abnormal [facility] Glucose [Mass/Vol] 112 mg/dL High 65 - 99 mg/dL [facility] Interpretation and review of laboratory results Abnormal [facility] Glucose [Mass/Vol] 93 mg/dL 65 - 99 mg/dL [facility] Interpretation and review of laboratory results Normal [facility] Glucose [Mass/Vol] 88 mg/dL 65 - 99 mg/dL [facility] Interpretation and review of laboratory results Normal [facility] SCAN OTHER ORDERSon 09-04-20 19 Ordered by an unspecified provider. [facility] XR ELBOW LEFT 3+ VIEWS (MARTÍN COTTRELL)on 09-04-2019 XR ELBOW LEFT 3+ VIEWS (STANDARD) EXAMINATION: XR ELBOW LEFT 3+ VIEWS (STANDARD) HISTORY: ORDERING SYSTEM PROVIDED HISTORY: s/p total elbow arthroplasty, TECHNOLOGIST PROVIDED HISTORY: Illness/Other Reason for exam: post op Cancer History: no Surgery, RadiationHistory: left elbow Encounter Type: Initial Additional signs and symptoms: post op ORDERING SYSTEM PROVIDED DIAGNOSIS CODES: G89.18 Post-operative pain COMPARISON: Intraoperative imaging 09/04/2019, left elbow x-rays 02/27/2019. FINDINGS: Three views are submitted. External stabilization device is seen in place. The patient is post left elbow arthroplasty. Hardware is intact. The proximal radius and radial head have been resected. Subcutaneous gas is shown surrounding the surgical site. IMPRESSION: 1. Gross anatomic alignment and intact hardware related to left elbow arthroplasty. [employer] Workstation ID: [id number] Dictated by: UV NESS on MonSep 04, 2019 3:35:06 PM EST Transcribed by: JONI DELEON on MonSep 04, 2019 3:35:46 PM EST Finalized by: VU NESS on MonSep 04, 2019 4:41:06 PM EST Normal [facility] Comment on above: Order Comment: Injur y/Trauma or Illness?:Illness/Other How long have you had these symptoms (acute/chronic)?:Unknown Reason for exam?:post op History of cancer?:no Surgeries, chemotherapy, or radiation?:left elbow Type of Exam?:Initial Additional signs and symptoms?:post op XR Elbow Left 3+ Views (Martín cottrell)on 09-04-2019 Erythrocyte distribution width (RBC) [Ratio] 1. Gross anatomic alignment and intact hardware related to left elbow arthroplasty. [employer] Workstation ID: [id number] [facility] Interface, Rad In [facility] - 09/04/2019 4:43 PM EST EXAMINATION: XR ELBOW LEFT 3+ VIEWS (STANDARD) HISTORY: ORDERING SYSTEM PROVIDED HISTORY: s/p total elbow arthroplasty, TECHNOLOGIST PROVIDED HISTORY: Illness/Other Reason for exam: post op Cancer History: no Surgery, RadiationHistory: left elbow Encounter Type: Initial Additional signs and symptoms: post op ORDERING SYSTEM PROVIDED DIAGNOSIS CODES: G89.18 Post-operative pain COMPARISON: Intraoperative imaging 09/04/2019, left elbow x-rays 02/27/2019. FINDINGS: Three views are submitted. External stabilization device is seen in place. The patient is post left elbow arthroplasty. Hardware is intact. The proximal radius and radial head have been resected. Subcutaneous gas is shown surrounding the surgical site. IMPRESSION: 1. Gross anatomic alignment and intact hardware related to left elbow arthroplasty. [employer] Workstation ID: [id number] [facility] EXAMINATION: XR ELBO W LEFT 3+ VIEWS (STANDARD) HISTORY: ORDERING SYSTEM PROVIDED HISTORY: s/p total elbow arthroplasty, TECHNOLOGIST PROVIDED HISTORY: Illness/Other Reason for exam: post op Cancer History: no Surgery, RadiationHistory: left elbow Encounter Type: Initial Additional signs and symptoms: post op ORDERING SYSTEM PROVIDED DIAGNOSIS CODES: G89.18 Post-operative pain COMPARISON: Intraoperative imaging 09/04/2019, left elbow x-rays 02/27/2019. FINDINGS: Three views are submitted. External stabilization device is seen in place. The patient is post left elbow arthroplasty. Hardware is intact. The proximal radius and radial head have been resected. Subcutaneous gas is shown surrounding the surgical site. [facility] XR FLUOROSCOPY TIMEon 2018 XR FLUOROSCOPY TIME This is an auto finalized result. Please refer to patient chart for further information. further information. further information. Normal [facility] Comment on above: Order Comment: Injur y/Trauma or Illness?:Illness/Other How long have you had these symptoms (acute/chronic)?:Unknown Reason for exam?:OR Type of Exam?:Ongoing Additional signs and symptoms?:unknown Fluoro time in minutes:.59 Fluoro dose in mGy?:.18 XR Fluoroscopy Timeon 2018 This is an auto finalized result. Please refer to patient chart for further information. [facility] XR OR ELBOW LEFT 2 VIEWSon 11-05-2018 XR OR ELBOW LEFT 2 VIEWS EXAMINATION: XR OR ELBOW LEFT 2 VIEWS HISTORY: ORDERING SYSTEM PROVIDED HISTORY: surgery, TECHNOLOGIST PROVIDED HISTORY: Illness/Other Reason for exam: OR Encounter Type: Ongoing Additional signs and symptoms: unknown Fluoro dose in mGy: .18 ORDERING SYSTEM PROVIDED DIAGNOSIS CODES: G89.18 Post-operative pain COMPARISON: None. TECHNIQUE: Fluoro Dose Ka,r mGy: Fluoro dose in Ka,r mGy: 0.18 FINDINGS: Two spot fluoroscopic images were obtained of the left elbow demonstrating postoperative changes from an arthroplasty procedure with resection of the radial head. Normal alignment. IMPRESSION: Status post left elbow arthroplasty procedure. Please refer to the formal operative report. DPR/raw Workstation ID: [id number] Dictated by: LATASHA CAMPOS on MonSep 04, 2019 1:43:54 PM EST Transcribed by: ENRIKE PHELPS on MonSep 04, 2019 2:21:31 PM EST Finalized by: LATASHA CAMPOS on MonSep 04, 2019 2:22:01 PM EST Normal [facility] Comment on above: Order Comment: Injur y/Trauma or Illness?:Illness/Other How long have you had these symptoms (acute/chronic)?:Unknown Reason for exam?:OR Type of Exam?:Ongoing Additional signs and symptoms?:unknown Fluoro time in minutes:.59 Fluoro dose in mGy?:.18 XR OR Elbow Left 2 Viewson 11-05-2018 EXAMINATION: XR OR ELBOW LEFT 2 VIEWS HISTORY: ORDERING SYSTEM PROVIDED HISTORY: surgery, TECHNOLOGIST PROVIDED HISTORY: Illness/Other Reason for exam: OR Encounter Type: Ongoing Additional signs and symptoms: unknown Fluoro dose in mGy: .18 ORDERING SYSTEM PROVIDED DIAGNOSIS CODES: G89.18 Post-operative pain COMPARISON: None. TECHNIQUE: Fluoro Dose Ka,r mGy: Fluoro dose in Ka,r mGy: 0.18 FINDINGS: Two spot fluoroscopic images were obtained of the left elbow demonstrating postoperative changes from an arthroplasty procedure with resection of the radial head. Normal alignment. [facility] Interface, Rad In Fu ji Speechq - 09/04/2019 2:24 PM EST EXAMINATION: XR OR ELBOW LEFT 2 VIEWS HISTORY: ORDERING SYSTEM PROVIDED HISTORY: surgery, TECHNOLOGIST PROVIDED HISTORY: Illness/Other Reason for exam: OR Encounter Type: Ongoing Additional signs and symptoms: unknown Fluoro dose in mGy: .18 ORDERING SYSTEM PROVIDED DIAGNOSIS CODES: G89.18 Post-operative pain COMPARISON: None. TECHNIQUE: Fluoro Dose Ka,r mGy: Fluoro dose in Ka,r mGy: 0.18 FINDINGS: Two spot fluoroscopic images were obtained of the left elbow demonstrating postoperative changes from an arthroplasty procedure with resection of the radial head. Normal alignment. IMPRESSION: Status post left elbow arthroplasty procedure. Please refer to the formal operative report. DPR/raw Workstation ID: [id number] [facility] Status post left elb ow arthroplasty procedure. Please refer to the formal operative report. DPR/raw Workstation ID: [id number] [facility] Basic Metabolic Panelon 11-2 Anion gap [Moles/Vol] 22 mmol/L High 10 - 20 mmol/L [facility] Calcium [Mass/Vol] 9.7 mg/dL 8.4 - 10. 2 mg/dL [facility] Chloride [Moles/Vol] 96 mmol/L Low 98 - 108 mmol/L [facility] Creatinine [Mass/Vol] 0.63 mg/dL 0.4 - 1.1 mg/dL [facility] GFR/1.73 sq M predicted among non-blacks MDRD (S/P/Bld) [Vol rate/Area] The eGFR should be used for monitoring renal function only and not for medication dosing. [facility] GFR/1.73 sq M.predicted CKD-EPI (S/P/Bld) [Vol rate/Area] 98 >=60 mL/min/1.73 m2 [facility] Glucose [Mass/Vol] 221 mg/dL High 65 - 99 mg/dL [facility] [Moles/Vol] 24 mmol/L 21 - 32 mmol/L [facility] Interpretation and review of laboratory results Abnormal [facility] Potassium [Moles/Vol] 4.0 mmol/L 3.5 - 5.1 mmol/L [facility] Sodium [Moles/Vol] 138 mmol/L 135 - 145 mmol/L [facility] Urea nitrogen [Mass/Vol] 16 mg/dL 8 - 25 mg/dL [facility] Urea nitrogen/Creatinine [Mass ratio] 25.4 mg/mg High [facility] CBC WITH AUTO DIFFERENTIALon 08-28-2019 Basophils (Bld) [#/Vol] 0.07 10*3/uL [facility] Basophils/100 WBC (Bld) 0.8 % [facility] Eosinophils (Bld) [#/Vol] 0.32 10*3/uL [facility] Eosinophils/100 WBC (Bld) 3.9 % [facility] Erythrocyte distribution width (RBC) [Entitic vol] 14.3 % 11.6 - 14.8 % [facility] Hematocrit (Bld) [Volume fraction] 40.2 % 36 - 46 % [facility] Hemoglobin (Bld) [Mass/Vol] 13.5 g/dL 12 - 16 g/dL [facility] Immature granulocytes (Bld) [#/Vol] 0.03 10*3/uL [facility] Immature granulocytes/100 WBC (Bld) 0.40 % [facility] Comment on above: The IG parameter is the percentage of metamyelocytes, myelocytes, and promyelocytes. Lymphocytes (Bld) [#/Vol] 2.90 10*3/uL [facility] Lymphocytes/100 WBC (Bld) 35.2 % [facility] MCH (RBC) [Entitic mass] 29.8 pg 26 - 34 pg [facility] MCHC (RBC) [Mass/Vol] 34.0 g/dL 31 - 37 g/dL [facility] MCV (RBC) [Entitic vol] 87.6 fL 80 - 100 fL [facility] Monocytes (Bld) [#/Vol] 0.55 10*3/uL [facility] Monocytes/100 WBC (Bld) 6.7 % [facility] Neutrophils (Bld) [#/Vol] 4.38 10*3/uL [facility] Neutrophils/100 WBC (Bld) 53.0 % [facility] Nucleated RBC (Bld) [#/Vol] 0.00 10*3/uL [facility] Nucleated RBC/100 WBC (Bld) [Ratio] 0.0 % [facility] Platelet mean volume (Bld) [Entitic vol] 9.6 fL 9 - 15.5 fL [facility] Platelets (Bld) [#/Vol] 391 10*3/uL [facility] RBC (Bld) [#/Vol] 4.60 10*6/uL [facility] WBC (Bld) [#/Vol] 8.25 10*3/uL [facility] Creatinine, Serumon 08-28-20 19 Creatinine [Mass/Vol] 0.63 mg/dL 0.4 - 1.1 mg/dL [facility] GFR/1.73 sq M predicted among non-blacks MDRD (S/P/Bld) [Vol rate/Area] The eGFR should be used for monitoring renal function only and not for medication dosing. [facility] GFR/1.73 sq M.predicted CKD-EPI (S/P/Bld) [Vol rate/Area] 98 >=60 mL/min/1.73 m2 [facility] Interpretation and review of laboratory results Normal [facility] ECG 12-LEADon 08-28-2019 Atrial Rate 90 BPM [facility] P [place] 80 degrees [facility] P-R Interval 156 ms [facility] Q-T Interval 362 ms [facility] QRS Duration 64 ms [facility] QTC Calculation (Bezet) 442 ms [facility] R [place] 64 degrees [facility] T [place] 57 degrees [facility] Ventricular Rate 90 BPM [facility] Normal sinus rhythm Low voltage QRS Poor R Wave Progression Septal infarct , age undetermined Abnormal ECG Confirmed by Leatha Gomez M.D. ([id number]) on 08/28/2019 1:35:26 PM [facility] Glucoseon 08-28-2019 Glucose [Mass/Vol] 221 mg/dL High 65 - 99 mg/dL [facility] Interpretation and review of laboratory results Abnormal [facility] Hemoglobin and Hematocriton 08-28-2019 Hematocrit (Bld) [Volume fraction] 40.2 % 36 - 46 % [facility] Hemoglobin (Bld) [Mass/Vol] 13.5 g/dL 12 - 16 g/dL [facility] Interpretation and review of laboratory results Normal [facility] DEBRIDEMENTon 04-23-2019 Rose Mendoza, C[employer]OL[employer] PATCHER 04/24/2019 8:06 AM Wound Care Debridement Timeout: Verbal Consent obtained?: Yes Written Consent obtained?: Yes Consent given by: Patient Immediately prior to procedure a time out was called to verify the correct patient, procedure, equipment, sales support consultant and site/side marked as required Timeout performed: 04/24/2019 3:50 PM Debridement Procedure: Debridement Performed for Assessment: #1 Right elbow Performed by: Clinician Debridement Type: Surgical Pain Control: 4% Lidocaine Level: Skin/Subcutaneous Tissue Pre-Debridement Values: Length (cm): 5 Width (cm): 0.7 Depth (cm): 0.1 Area (sq cm): 3.5 Volume (cm3): 0.35 Post Debridement Measurements: Length (cm): 5.2 Width (cm): 1 Depth (cm): 0.3 Area (sq cm): 5.2 Volume (cm3): 1.56 Percent Debrided: 100 Total Area Debrided (sq cm): 5.2 Tissue and other material debrided: Subcutaneous, Epidermis and Dermis Devitalized tissue debrided: Slough and Fibrin Instrument: Curette Bleeding: Minimal Hemostasis Achieved: Pressure Procedural Pain: 4 Post Procedural Pain: 0 Response to Treatment: Procedure was tolerated well (...................... ....................... ....................... ...... ...............) [facility] Basic Metabolic Panelon 05-3 Anion gap molar conc 15 mmol/L 10 - 20 mmol/L [facility] Calcium mass conc 7.6 mg/dL Low 8.4 - 10.2 mg/dL [facility] Chloride molar conc 104 mmol/L 98 - 108 mmol/L [facility] Creatinine mass conc 0.55 mg/dL 0.4 - 1.1 mg/dL [facility] GFR/1.73 sq M predicted among non-blacks MDRD vol rate/area (S/P/Bld) The eGFR should be used for monitoring renal function only and not for medication dosing. [facility] GFR/1.73 sq M.predicted CKD-EPI vol rate/area (S/P/Bld) 103 >=60 mL/min/1.73 m2 [facility] Glucose mass conc 104 mg/dL High 65 - 99 mg/dL [facility] HCO3 molar conc 22 mmol/L 21 - 32 mmol/L [facility] Interpretation and review of laboratory results Abnormal [facility] Potassium molar conc 3.3 mmol/L Low 3.5 - 5.1 mmol/L [facility] Sodium molar conc 138 mmol/L 135 - 145 mmol/L [facility] Urea nitrogen mass conc 12 mg/dL 8 - 25 mg/dL [facility] Urea nitrogen/Creatinine mass ratio 21.8 mg/mg High [facility] CBC WITH AUTO DIFFERENTIALon 02-28-2019 Basophils #/vol (Bld) 0.05 10*3/uL [facility] Basophils/100 WBC (Bld) 0.5 % [facility] Eosinophils #/vol (Bld) 0.01 10*3/uL [facility] Eosinophils/100 WBC (Bld) 0.1 % [facility] Erythrocyte distribution width Entitic volume (RBC) 13.7 % 11.6 - 14.8 % [facility] Hematocrit Volume Fraction (Bld) 30.6 % Low 36 - 46 % [facility] Hemoglobin mass conc (Bld) 9.8 g/dL Low 12 - 16 g/dL [facility] Immature granulocytes #/vol (Bld) 0.07 10*3/uL [facility] Immature granulocytes/100 WBC (Bld) 0.60 % [facility] Comment on above: The IG parameter is the percentage of metamyelocytes, myelocytes, and promyelocytes. Interpretation and review of laboratory results Abnormal [facility] Lymphocytes #/vol (Bld) 2.11 10*3/uL [facility] Lymphocytes/100 WBC (Bld) 19.0 % [facility] MCH Entitic mass (RBC) 28.2 pg 26 - 34 pg [facility] MCHC mass conc (RBC) 32.0 g/dL 31 - 37 g/dL [facility] MCV Entitic volume (RBC) 88.2 fL 80 - 100 fL [facility] Monocytes #/vol (Bld) 0.94 10*3/uL High [facility] Monocytes/100 WBC (Bld) 8.5 % [facility] Neutrophils #/vol (Bld) 7.91 10*3/uL High [facility] Neutrophils/100 WBC (Bld) 71.3 % [facility] Nucleated RBC #/vol (Bld) 0.00 10*3/uL [facility] Nucleated RBC/100 WBC Ratio (Bld) 0.0 % [facility] Platelet mean volume Entitic volume (Bld) 9.2 fL 9 - 15.5 fL [facility] Platelets #/vol (Bld) 327 10*3/uL [facility] RBC #/vol (Bld) 3.47 10*6/uL [place] [facility] W[facility] #/vol (Bld) 11.09 10*3/uL High [facility] alth POC Glucoseon 02-28-2019 Glucose mass conc 171 mg/dL High 65 - 99 mg/dL [facility] Interpretation and review of laboratory results Abnormal [facility] Glucose mass conc 76 mg/dL 65 - 99 mg/dL [facility] Interpretation and review of laboratory results Normal [facility] Glucose mass conc 171 mg/dL High 65 - 99 mg/dL [facility] Interpretation and review of laboratory results Abnormal [facility] CBC WITH AUTO DIFFERENTIALon 02-27-2019 Basophils #/vol (Bld) 0.05 10*3/uL [facility] Basophils/100 WBC (Bld) 0.5 % [facility] Eosinophils #/vol (Bld) 0.13 10*3/uL [facility] Eosinophils/100 WBC (Bld) 1.2 % [facility] Erythrocyte distribution width Entitic volume (RBC) 13.8 % 11.6 - 14.8 % [facility] Hematocrit Volume Fraction (Bld) 39.1 % 36 - 46 % [facility] Hemoglobin mass conc (Bld) 12.7 g/dL 12 - 16 g/dL [facility] Immature granulocytes #/vol (Bld) 0.06 10*3/uL [facility] Immature granulocytes/100 WBC (Bld) 0.60 % [facility] Comment on above: The IG parameter is the percentage of metamyelocytes, myelocytes, and promyelocytes. Interpretation and review of laboratory results Abnormal [facility] Lymphocytes #/vol (Bld) 1.32 10*3/uL [facility] Lymphocytes/100 WBC (Bld) 12.2 % [facility] MCH Entitic mass (RBC) 28.6 pg 26 - 34 pg [facility] MCHC mass conc (RBC) 32.5 g/dL 31 - 37 g/dL [facility] MCV Entitic volume (RBC) 88.1 fL 80 - 100 fL [facility] Monocytes #/vol (Bld) 0.50 10*3/uL [facility] Monocytes/100 WBC (Bld) 4.6 % [facility] Neutrophils #/vol (Bld) 8.79 10*3/uL High [facility] Neutrophils/100 WBC (Bld) 80.9 % [facility] Nucleated RBC #/vol (Bld) 0.00 10*3/uL [facility] Nucleated RBC/100 WBC Ratio (Bld) 0.0 % [facility] Platelet mean volume Entitic volume (Bld) 9.2 fL 9 - 15.5 fL [facility] Platelets #/vol (Bld) 369 10*3/uL [facility] RBC #/vol (Bld) 4.44 10*6/uL [facility] lth WBC #/vol (Bld) 10.85 10*3/uL [facility] alth POC Glucoseon 02-27-2019 Glucose mass conc 313 mg/dL High 65 - 99 mg/dL [facility] Interpretation and review of laboratory results Abnormal [facility] Glucose mass conc 328 mg/dL High 65 - 99 mg/dL [facility] Interpretation and review of laboratory results Abnormal [facility] Glucose mass conc 201 mg/dL High 65 - 99 mg/dL [facility] Interpretation and review of laboratory results Abnormal [facility] Glucose mass conc 208 mg/dL High 65 - 99 mg/dL [facility] Interpretation and review of laboratory results Abnormal [facility] SCAN OTHER ORDERSon 02-28-20 19 Ordered by an unspecified provider. [facility] XR Elbow Right 3+ Views (Sta ndard)on 02-27-2019 EXAMINATION: XR ELBO W RIGHT 3+ VIEWS (STANDARD) HISTORY: ORDERING SYSTEM PROVIDED HISTORY: ap/lat postop elbow, TECHNOLOGIST PROVIDED HISTORY: Reason for exam: post op Injury/Trauma Cancer History: no Surgery, RadiationHistory: no Encounter Type: Initial Mechanism of injury: post op ORDERING SYSTEM PROVIDED DIAGNOSIS CODES: S59.909S Elbow injury, unspecified laterality, sequela Elbow surgery. COMPARISON: Right elbow radiographs 07/21/2016 from [facility]. FINDINGS: Three views of the right elbow were performed. There is an elbow joint prosthesis with statins in the distal humerus and proximal ulna. Best seen on the lateral view there is linear lucency adjacent to the ulnar stem near the base of the coronoid process which may represent a prominent cement bone interface more likely than a nondisplaced fracture, as no distal extent of fracture can be appreciated.. Radial head has been resected. There is moderate soft tissue swelling and multifocal soft tissue air compatible with recent surgery. [facility] Interface, Rad In Fu ji Speechq - 02/27/2019 6:29 PM EDT EXAMINATION: XR ELBOW RIGHT 3+ VIEWS (STANDARD) HISTORY: ORDERING SYSTEM PROVIDED HISTORY: ap/lat postop elbow, TECHNOLOGIST PROVIDED HISTORY: Reason for exam: post op Injury/Trauma Cancer History: no Surgery, RadiationHistory: no Encounter Type: Initial Mechanism of injury: post op ORDERING SYSTEM PROVIDED DIAGNOSIS CODES: S59.909S Elbow injury, unspecified laterality, sequela Elbow surgery. COMPARISON: Right elbow radiographs 07/21/2016 from [facility]. FINDINGS: Three views of the right elbow were performed. There is an elbow joint prosthesis with statins in the distal humerus and proximal ulna. Best seen on the lateral view there is linear lucency adjacent to the ulnar stem near the base of the coronoid process which may represent a prominent cement bone interface more likely than a nondisplaced fracture, as no distal extent of fracture can be appreciated.. Radial head has been resected. There is moderate soft tissue swelling and multifocal soft tissue air compatible with recent surgery. IMPRESSION: Recent postoperative change for radial head resection and elbow joint prosthesis. Linear lucency adjacent to the ulnar stem in the region of the base of the coronoid process probably represents a mildly prominent cement bone interface. A nondisplaced fracture is considered less likely. [facility] Workstation ID: [id number] [facility] Recent postoperative change for radial head resection and elbow joint prosthesis. Linear lucency adjacent to the ulnar stem in the region of the base of the coronoid process probably represents a mildly prominent cement bone interface. A nondisplaced fracture is considered less likely. [employer] Workstation ID: [id number] [facility] XR Fluoroscopy Timeon 2018 This is an auto finalized result. Please refer to patient chart for further information. [facility] Creatinine, Serumon 02-22-20 19 Creatinine mass conc 0.57 mg/dL 0.4 - 1.1 mg/dL [facility] GFR/1.73 sq M predicted among non-blacks MDRD vol rate/area (S/P/Bld) The eGFR should be used for monitoring renal function only and not for medication dosing. [facility] GFR/1.73 sq M.predicted CKD-EPI vol rate/area (S/P/Bld) 102 >=60 mL/min/1.73 m2 [facility] Interpretation and review of laboratory results Normal [facility] ECG 12-LEADon 02-21-2019 Atrial Rate 78 BPM [facility] P [place] 67 degrees [facility] P-R Interval 142 ms [facility] Q-T Interval 402 ms [facility] QRS Duration 78 ms [facility] QTC Calculation (Bezet) 458 ms [facility] R [place] 47 degrees [facility] T [place] 52 degrees [facility] Ventricular Rate 78 BPM [facility] Normal sinus rhythm Normal ECG Confirmed by SVETA SILVA D.O. ([id number]) on 02/21/2019 1:00:32 PM [facility] Glucoseon 02-21-2019 Glucose mass conc 407 mg/dL Critically high 65 - 99 mg/dL [facility] Interpretation and review of laboratory results Abnormal [facility] XR Cervical Spine with Flexi on and Extension 6+ Viewson 02-21-2019 Very minimal degenerative disc disease at C4-5. No fracture. No instability in flexion or extension. PRL/pji Workstation ID: [id number] [facility] EXAMINATION: XR CERVICAL SPINE WITH FLEXION AND EXTENSION 6+ VIEWS HISTORY: ORDERING SYSTEM PROVIDED HISTORY: pat, TECHNOLOGIST PROVIDED HISTORY: Reason for exam: pat for intubation Illness/Other Cancer History: no Surgery, RadiationHistory: no Encounter Type: Initial Additional signs and symptoms: patient has rheumatoid arthritis ORDERING SYSTEM PROVIDED DIAGNOSIS CODES: Z01.818 Pre-op exam COMPARISON: [facility] from [facility] 05/03/2013. FINDINGS: Seven images including flexion-extension. Minimal anterior discogenic spurring is seen at C4-5. No spondylolisthesis or fracture or prevertebral soft tissue swelling. No instability in flexion with specific attention to the atlantoaxial joint. No instability in extension. Facet arthrosis most prominent on the left between C3 and C6. [facility] Interface, Rad In Fu ji Speechq - 02/21/2019 4:22 PM EDT EXAMINATION: XR CERVICAL SPINE WITH FLEXION AND EXTENSION 6+ VIEWS HISTORY: ORDERING SYSTEM PROVIDED HISTORY: pat, TECHNOLOGIST PROVIDED HISTORY: Reason for exam: pat for intubation Illness/Other Cancer History: no Surgery, RadiationHistory: no Encounter Type: Initial Additional signs and symptoms: patient has rheumatoid arthritis ORDERING SYSTEM PROVIDED DIAGNOSIS CODES: Z01.818 Pre-op exam COMPARISON: CT from [facility] 05/03/2013. FINDINGS: Seven images including flexion-extension. Minimal anterior discogenic spurring is seen at C4-5. No spondylolisthesis or fracture or prevertebral soft tissue swelling. No instability in flexion with specific attention to the atlantoaxial joint. No instability in extension. Facet arthrosis most prominent on the left between C3 and C6. IMPRESSION: Very minimal degenerative disc disease at C4-5. No fracture. No instability in flexion or extension. PRL/pji Workstation ID: [id number] [facility] PROGRESSon 04-18-2017 PROGRESS HNO ID: [id number]: Kelsey (Rt) DenoService: RadiologyAuthor Type: TechnicianType: Progress NotesFiled: 04/18/2017 2:29 PMNote Text: Radiology Service Progress NotePATIENT NAME: Elsa CatalanMRN: [id number] OF SERVICE: April 18, 2017TIME: 2:27 PMPATIENT IDENTITY VERIFICATION COMPLETED USING TWO (2) METHODS: Patientconfirmed name verbally and Date of .PATIENT GENDER DATA: Female. status: : NoBreastfeeding status: NO.PATIENT RELEVANT IMPLANT DATA REVIEWED: Not ApplicableRADIOLOGY DEPARTMENT: General X-ray: Exam(s) Completed: Spine X-Ray(s):Cervical AP / LAT / OBLUpper Extremity X-Ray(s): Shoulder, AP / TRUE AP Bilateral and Elbow,Right :PERIPHERAL IV DATA: Not applicableSIGNED BY: Marilyn Hunt RT (R)April 18, 2017 2:27 PM [facility] XR CERVICAL AP/LAT/OBLon XR CERVICAL AP/LAT/OBL * * *Final Report* * *DATE OF EXAM: Apr 18 2017 2:36PM VHX [id number] - XR CERVICAL AP/LAT/OBL / REASON: Cervicalgia * * * * Physician Interpretation * * * * EXAM: CERVICAL SPINE, 4 VIEWSCLINICAL: 56-year-old female evaluate for erosions and CPPDTECHNIQUE: AP, lateral, obliquesCOMPARISON: 10/07/2011RESULTS: Counting reference: Craniocervical junction.. C7 vertebral body is not completely visualized however the disc spaces are maintained throughout cervical spine. C2-C6 vertebral bodies are intact. Mild facet joint space narrowing at C2/C3, C3/C4, C4/C5 and C6/C7. Mild neural foraminal narrowing at C3/C4 bilaterally.IMPRESSION: DEGENERATIVE DISC AND FACET DISEASE.Transcriptionis t: SUSANA Transcribe Date/Time: Apr 18 2017 3:37PDictated by : Jeevan MARIA examination was interpreted and the report reviewed and electronically signed by: KEMI DE LEON MD on Apr 18 2017 3:39PM [facility] XR ELBOW M3V [place] 7 XR ELBOW M3V UNI * * *Final Report* * *DATE OF EXAM: Apr 18 2017 2:36PM VHX 8487 - XR ELBOW M3V UNI - RIGHT / REASON: Pain in right elbow * * * * Physician Interpretation * * * * HISTORY: 6-YEAR-OLD FEMALE WITH Pain in right elbow . RT ELBOW PAIN. EVAL FOR CPPD \EandE\ EROSIONS. PT UNABLE TO FULLY EXTEND RT ARMTECHNIQUE: XR ELBOW M3V UNI Laterality: RIGHT Number of different views (projections): 3COMPARISON: 01/22/2016RESULT: Severe narrowing of the radiocapitellar and ulnar trochlear articulation with osteophytes. No fracture, no joint effusion. No soft tissue swelling.IMPRESSION:SEV ERE DEGENERATIVE CHANGES OF THE ELBOW JOINTS PROGRESSED SINCE THE PREVIOUS EXAMINATION.Transcripti onist: [facility] Transcribe Date/Time: Apr 18 2017 3:33PDictated by : Jeevan MARIA examination was interpreted and the report reviewed and electronically signed by: KEMI DE LEON MD on Apr 18 2017 3:35PM [facility] XR SHOULDER M2V [place] 2016 XR SHOULDER M2V UNI * * *Final Report* * *DATE OF EXAM: Apr 18 2017 2:36PM VHX 8705 - XR SHOULDER M2V UNI B / REASON: multiple diagnoses * * * * Physician Interpretation * * * * HISTORY: 56-YEAR-OLD FEMALE WITH Pain in left shoulder Other chronic pain Pain in right shoulder . BILAT SHOULDER PAIN. EVAL FOR CPPD \EandE\ EROSIONS. RT SHOULDER WORSETECHNIQUE: XR SHOULDER M2V UNI Laterality: BILATERAL Number of different views (projections): 2 EACHCOMPARISON: 01/22/2016RESULT: Glenohumeral joint space is maintained bilaterally. Acromiohumeral interval is maintained bilaterally. Acromio clavicular joint is intact bilaterally. No fracture or dislocation.IMPRESSION: NO ACUTE BONY ABNORMALITY, NO CHANGE COMPARED TO PREVIOUS EXAM.[employer]: [employer] Transcribe Date/Time: Apr 18 2017 3:35PDictated by : KEMI DE LEON MDThis examination was interpreted and the report reviewed and electronically signed by: KEMI DE LEON MD on Apr 18 2017 3:37PM [facility] Vital Signs Date Time Vital Sign Value Performing Clinician Alin tam 11-23-2023 08:58-0500 Body weight 68.95 kg Pepe Carter MD Work Phone: [facility] 11-23-2023 08:58-0500 Diastolic blood pressure 83 mm[Hg] Pepe Carter MD Work Phone: [facility] 11-23-2023 08:58-0500 Heart rate 81 /min Pepe Carter MD Work Phone: [facility] 11-23-2023 08:58-0500 Systolic blood pressure 129 mm[Hg] Pepe Carter MD Work Phone: [facility] 08-11-2022 09:13-0500 Body weight 66.13 kg Pepe Carter MD Work Phone: [facility] 08-11-2022 09:13-0500 Diastolic blood pressure 72 mm[Hg] Pepe Carter MD Work Phone: [facility] 08-11-2022 09:13-0500 Heart rate 83 /min Pepe Carter MD Work Phone: [facility] 08-11-2022 09:13-0500 SaO2% (BldA) [Mass fraction] 99 % Pepe Carter MD Work Phone: [facility] 08-11-2022 09:13-0500 Systolic blood pressure 115 mm[Hg] Pepe Carter MD Work Phone: [facility] 04-08-2020 17:10-0400 BP Diastolic 72 mm[Hg] [facility] 17:10-0400 BP Systolic 145 mm[Hg] [facility] 04-08-2020 17:10-0400 Pulse (Heart Rate) 94 /min [facility] 04-08-2020 17:10-0400 Pulse Oximetry 98 % Ayde Almanzar [facility] 04-08-2020 17:10-0400 Respiratory Rate 13 /min Ayde Almanzar [facility] 04-08-2020 17:00-0400 Body Temperature 97.39 [degF] Ayde Almanzar [facility] 04-08-2020 09:55-0400 BMI (Body Mass Index) 24.6 kg/m2 Ayde Almanzar [facility] 04-08-2020 09:55-0400 Body weight 65 kg Ayde Almanzar [facility] 04-08-2020 09:55-0400 Height 162.6 cm Ayde Almanzar [facility] 10-14-2019 15:05-0500 Respiratory Rate 14 /min Ted [facility] 10-14-2019 07:13-0500 Body Temperature 98.29 [degF] [facility] 10-14-2019 07:13-0500 BP Diastolic 86 mm[Hg] [facility] 10-14-2019 07:13-0500 BP Systolic 134 mm[Hg] [facility] 10-14-2019 07:13-0500 Pulse (Heart Rate) 81 /min [facility] 10-14-2019 07:13-0500 Pulse Oximetry 97 % [facility] 10-12-2019 12:49-0500 BMI (Body Mass Index) 24.22 kg/m2 [facility] 10-12-2019 12:49-0500 Body weight 64 kg [facility] 10-12-2019 12:49-0500 Height 162.6 cm [facility] 10-08-2019 10:45-0500 BMI (Body Mass Index) 24.55 kg/m2 Rose Mendoza [facility] 10-08-2019 10:45-0500 Body weight 64.86 kg Rose Mendoza [facility] 10-08-2019 10:45-0500 Height 162.6 cm Rose Mendoza [facility] 10-08-2019 10:40-0500 Body Temperature 98.01 [degF] Rose Mendoza [facility] 10-08-2019 10:40-0500 BP Diastolic 99 mm[Hg] Rose Mendoza [facility] 10-08-2019 10:40-0500 BP Systolic 179 mm[Hg] Rose Mendoza [facility] 10-08-2019 10:40-0500 Pulse (Heart Rate) 95 /min Rose Mendoza [facility] 10-08-2019 10:40-0500 Respiratory Rate 16 /min Rose Mendoza [facility] 09-05-2019 11:12-0500 Body Temperature 99.19 [degF] [facility] 11:12-0500 BP Diastolic 62 mm[Hg] [facility] 09-05-2019 11:12-0500 BP Systolic 99 mm[Hg] [facility] 09-05-2019 11:12-0500 Pulse (Heart Rate) 96 /min [facility] 09-05-2019 11:12-0500 Pulse Oximetry 97 % [facility] 09-05-2019 11:12-0500 Respiratory Rate 12 /min [facility] 09-04-2019 09:34-0500 BMI (Body Mass Index) 25.05 kg/m2 [facility] 09-04-2019 09:34-0500 Body weight 66.2 kg [facility] 09-04-2019 09:34-0500 Height 162.6 cm [facility] 08-28-2019 13:08-0500 BMI (Body Mass Index) 24.22 kg/m2 [facility] 08-28-2019 13:08-0500 Body Temperature 98.8 [degF] [facility] 08-28-2019 13:08-0500 Body weight 64 kg [facility] 08-28-2019 13:08-0500 BP Diastolic 92 mm[Hg] [facility] 13:08-0500 BP Systolic 147 mm[Hg] [facility] 08-28-2019 13:08-0500 Height 162.6 cm [facility] 08-28-2019 13:08-0500 Pulse (Heart Rate) 85 /min [facility] 08-28-2019 13:08-0500 Pulse Oximetry 96 % [facility] 08-28-2019 13:08-0500 Respiratory Rate 13 /min [facility] 04-30-2019 13:45-0400 BP Diastolic 95 mm[Hg] Rose Mendoza [facility] 04-30-2019 13:45-0400 BP Systolic 174 mm[Hg] Rose Mendoza [facility] 04-30-2019 13:45-0400 Pulse (Heart Rate) 93 /min Rose Mendoza [facility] 04-30-2019 13:42-0400 Body Temperature 98.49 [degF] oRse Mendoza [facility] 04-30-2019 13:42-0400 Respiratory Rate 18 /min Rose Mendoza [facility] 04-23-2019 15:12-0400 BMI (Body Mass Index) 24.55 kg/m2 Rose Mendoza [facility] 04-23-2019 15:12-0400 Body Temperature 98.2 [degF] Rose Mendoza [facility] 04-23-2019 15:12-0400 Body weight 64.86 kg Rose Mendoza [facility] 04-23-2019 15:12-0400 BP Diastolic 85 mm[Hg] Rose Mendoza [facility] 04-23-2019 15:12-0400 BP Systolic 162 mm[Hg] Rose Mendoza [facility] 04-23-2019 15:12-0400 Height 162.6 cm Rose Mendoza [facility] 04-23-2019 15:12-0400 Pulse (Heart Rate) 92 /min Rosecorey eMndoza [facility] 04-23-2019 15:12-0400 Respiratory Rate 18 /min Rose Mendoza [facility] 02-28-2019 14:05-0400 Respiratory Rate 12 /min [facility] 02-28-2019 11:38-0400 Body Temperature 97.9 [degF] [facility] 02-28-2019 11:38-0400 BP Diastolic 91 mm[Hg] [facility] 02-28-2019 11:38-0400 BP Systolic 155 mm[Hg] [facility] 02-28-2019 11:38-0400 Pulse (Heart Rate) 83 /min [facility] 02-28-2019 11:38-0400 Pulse Oximetry 99 % [facility] 02-27-2019 06:43-0400 BMI (Body Mass Index) 24.41 kg/m2 [facility] 02-27-2019 06:43-0400 Height 162.6 cm [facility] 02-27-2019 06:43-0400 Weight 64.5 kg Ayde Almanzar [facility] 02-21-2019 11:47-0400 BMI (Body Mass Index) 24.22 kg/m2 [facility] 02-21-2019 11:47-0400 Body Temperature 98.01 [degF] [facility] 02-21-2019 11:47-0400 BP Diastolic 105 mm[Hg] [facility] 02-21-2019 11:47-0400 BP Systolic 190 mm[Hg] [facility] 02-21-2019 11:47-0400 Height 162.6 cm [facility] 02-21-2019 11:47-0400 Pulse (Heart Rate) 81 /min [facility] 02-21-2019 11:47-0400 Pulse Oximetry 98 % [facility] 02-21-2019 11:47-0400 Respiratory Rate 18 /min [facility] 02-21-2019 11:47-0400 Weight 64 kg [facility] Encounters Encounter Date Encounter Type Care Provider Facility Start: 11-23-2023 End: 11-24-2023 ambulatory PEPE CARTER Facility:[facility] Start: 11-23-2023 End: 11-23-2023 Patient encounter procedure Pepe Carter MD Work Phone: Rheumatology Comment on above: Rheumatoid arthritis of multiple sites without organ or system involvement with positive rheumatoid factor (HCC) (Primary Dx); Long-term use of high-risk medication; Joint stiffness of multiple sites; Dry eye syndrome of both eyes; Secondary osteoarthritis of multiple sites; Osteopenia of multiple sites; Bilateral hand pain; Bilateral elbow joint pain; Hip pain, bilateral; Chronic bilateral low back pain with right-sided sciatica; Synovitis of hand; Bilateral wrist pain; Chronic pain of both shoulders; Neck pain; Fibromyalgia; Abnormality of gait; Elevated sed rate; Elevated C-reactive protein (CRP); Vitamin D deficiency Start: 07-10-2023 Telephone encounter Pepe allison MD Work Phone: Rheumatology Comment on above: Refill Request (myAb bvie-Rinvoq) Start: 05-28-2023 Telephone encounter Pepe allison MD Work Phone: Rheumatology Comment on above: Results Start: 05-24-2023 End: 05-24-2023 ambulatory PEPE CARTER Facility:[facility] Start: 02-20-2023 End: 02-20-2023 ambulatory PEPE CARTER Facility:[facility] Start: 02-16-2023 End: 02-16-2023 ambulatory PEPE CARTER Facility:[facility] Start: 12-07-2022 End: 12-08-[address] LATASHA HAYES Facility:[facility] Start: 11-02-2022 End: 11-03-[address] LATASHA HAYES Facility:[facility] Start: 09-19-2022 End: 09-19-2022 ambulatory TAWANDA TORRESMER Facility:[facility] Start: 08-11-2022 End: 08-11-2022 Patient encounter procedure Pepe Carter MD Work Phone: Rheumatology Comment on above: Rheumatoid arthritis of multiple sites without organ or system involvement with positive rheumatoid factor (HCC) (Primary Dx); Elevated sed rate; Long-term use of high-risk medication; Joint stiffness of multiple sites; Dry eye syndrome of both eyes; Chronic pain of both shoulders; Secondary osteoarthritis of multiple sites; Osteopenia of multiple sites; Bilateral hand pain; Bilateral elbow joint pain; Neck pain; Hip pain, bilateral; Chronic bilateral low back pain with right-sided sciatica; Elevated C-reactive protein (CRP); Vitamin D deficiency; Elevated LFTs Start: 08-01-2022 ambulatory Pepe Carter MD Work Phone: Rheumatology Comment on above: RA medication Start: 07-31-2022 Telephone encounter Pepe allison MD Work Phone: Rheumatology Comment on above: Results Start: 07-27-2022 Refill Pepe Carter MD Work Phone: [address] [place] [address] Comment on above: Refill Request Start: 07-06-2022 End: 07-07-[address] LATASHA HAYES Facility:[facility] Start: 04-17-2022 Refill Pepe Carter MD Work Phone: Internal [facility] [place] Comment on above: Refill Request Start: 02-01-2022 End: 02-02-2022 ambulatory JANETTEMATT HAYWARDGH Facility:[facility] Start: 01-14-2022 End: 01-15-2022 ambulatory TAWANDAKALEE COOK Facility:[facility] Start: 01-13-2022 End: 01-14-[address] STU SAMUEL Facility:[facility] Start: 12-31-2021 End: 01-01-2022 ambulatory TAWANDA COOK Facility:[facility] Start: 12-30-2021 End: 12-30-2021 ambulatory Janel Chi CUPOLA PATCHER Work Phone: Rheumatology Comment on above: Rheumatoid arthritis of multiple sites without organ or system involvement with positive rheumatoid factor (HCC) (Primary Dx); Bilateral elbow joint pain; Fibromyalgia; Primary osteoarthritis of both wrists; Synovitis of hand; Long-term use of high-risk medication; Joint stiffness of multiple sites; Bilateral hand pain Start: 12-30-2021 End: 12-30-2021 Telemedicine consultation with patient Janel Shankslisa RASMUSSEN Work Phone: [facility] Start: 12-29-2021 Telephone encounter Pepe allison MD Work Phone: Rheumatology Comment on above: Results Start: 12-28-2021 End: 12-29-2021 ambulatory TAWANDA JOYCE Facility:[facility] Start: 07-26-2021 End: 07-26-2021 Subsequent hospital visit by physician Sparkle [facility] Comment on above: Chronic elbow pain, left [M25.522, G89.29] Start: 12-08-2020 End: 12-08-2020 Orders Only Migdalia Wilson Work Phone: [facility] Provider Hospitalist Start: 04-08-2020 End: 04-08-2020 Patient encounter procedure AYDE ALMANZAR [facility] Start: 04-08-2020 End: 04-08-2020 Subsequent hospital visit by physician Ayde Almanzar Work Phone: [facility] Periop Comment on above: Post-op pain (Primar y Dx) Start: 04-06-2020 End: 04-06-2020 Patient encounter procedure AYDE ALMANZAR [facility] Start: 04-01-2020 End: 04-01-2020 [facility] Start: 10-14-2019 Patient encounter procedure DEREK ZABALA [facility] Start: 10-12-2019 End: 10-14-2019 Patient encounter procedure PRETTY FERMIN [facility] Start: 10-12-2019 End: 10-14-2019 Emergency department patient visit Ted Bobo Adelia Work Phone: [facility] [place] [address] Comment on above: Complication of proc edure, subsequent encounter (Primary Dx); Acute neuritis; Non-healing wound of upper extremity, left, initial encounter Start: 10-08-2019 End: 10-08-2019 Patient encounter procedure ROSE SIERRA MENDOZA [facility] Start: 10-08-2019 End: 10-08-2019 Patient encounter procedure Rose Esquivel Reji Work Phone: [facility] Comment on above: Skin ulcer of elbow with fat layer exposed (HCC) (Primary Dx); Type 2 diabetes mellitus with other skin ulcer, with long-term current use of insulin (HCC); Rheumatoid arthritis involving left elbow with positive rheumatoid factor (HCC); Fibromyalgia affecting forearm Start: 09-04-2019 End: 09-05-2019 Evaluation and management of inpatient [facility] Start: 09-04-2019 End: 09-05-2019 Evaluation and management of inpatient Ayde Almanzar Work Phone: [facility] [place] [address] Comment on above: Post-operative pain (Primary Dx); Elbow pain, unspecified laterality Start: 08-28-2019 End: 08-28-2019 [facility] Start: 08-28-2019 End: 08-28-2019 Patient encounter procedure Ayde Almanzar Work Phone: [facility] Preadmission Testing Comment on above: Preop examination (P rimary Dx); Contracture of left elbow; Pre-operative cardiovascular examination; Rheumatoid arthritis, involving unspecified site, unspecified rheumatoid factor presence (HCC); Benign essential hypertension; Type 2 diabetes mellitus without complication, with long-term current use of insulin (HCC); Fibromyalgia; History of postoperative nausea and vomiting; Hyperlipidemia, unspecified hyperlipidemia type; Essential hypertension; Acquired hypothyroidism; Need for prophylactic measure Start: 04-30-2019 End: 04-30-2019 Patient encounter procedure ROSE ESQUIVEL MENDOZA [facility] Start: 04-30-2019 End: 04-30-2019 Office outpatient visit 5 minutes Rose Mendoza Work Phone: [facility] Comment on above: Skin ulcer of elbow with fat layer exposed (HCC) (Primary Dx); Type 2 diabetes mellitus with other skin ulcer, with long-term current use of insulin (HCC); Rheumatoid arthritis involving right elbow, unspecified rheumatoid factor presence (HCC); Fibromyalgia affecting forearm; Essential hypertension Start: 04-23-2019 Patient encounter procedure AUNDREA CLIFFORD [facility] Start: 04-23-2019 End: 04-23-2019 Patient encounter procedure Aundrea Clifford Work Phone: [facility] Comment on above: Skin ulcer of elbow with fat layer exposed (HCC) (Primary Dx); Type 2 diabetes mellitus with other skin ulcer, with long-term current use of insulin (HCC); Rheumatoid arthritis involving right elbow, unspecified rheumatoid factor presence (HCC); Fibromyalgia affecting forearm; Essential hypertension Start: 02-27-2019 End: 02-28-2019 Patient encounter procedure Ayde Almanzar Work Phone: [facility] [address] Comment on above: Elbow injury, unspec ified laterality, sequela (Primary Dx) Start: 02-21-2019 End: 02-21-2019 Patient encounter procedure Sveta Silva Work Phone: [facility]ostics Comment on above: Pre-op exam Start: 02-21-2019 End: 02-21-2019 Patient encounter procedure Ayde Almanzar Work Phone: [facility] Preadmission Testing Comment on above: Pre-op exam (Primary Dx); Other specified rheumatoid arthritis, right elbow (HCC); Contracture of right elbow; Lesion of right ulnar nerve; Pre-operative cardiovascular examination; Benign essential hypertension; Type 2 diabetes mellitus without complication, with long-term current use of insulin (HCC); Rheumatoid arthritis, involving unspecified site, unspecified rheumatoid factor presence (HCC); Fibromyalgia; PONV (postoperative nausea and vomiting); No contraindication to deep vein thrombosis (DVT) prophylaxis Start: 04-18-2017 Ambulatory PEPE Donohue [facility] ital Procedures Date Procedure Procedure Detail Performing Clinician Start: 07-26-2021 Radex elbow 2 views Mar romain Carter MD Work Phone: Start: 04-20-2021 Adult depression scr eening assessment Pepe Carter MD Work Phone: Start: 04-08-2020 Glucose [Mass/volume ] in Blood Ayde Almanzar Work Phone: Start: 04-08-2020 Glucose [Mass/volume ] in Blood Ayde Almanzar Work Phone: Start: 04-08-2020 SCAN OTHER ORDERS Provi domingo Not In System Start: 04-08-2020 Glucose [Mass/volume ] in Blood Ayde Almanzar Work Phone: Start: 10-14-2019 Glucose [Mass/volume ] in Blood [facility] Work Phone: Start: 10-14-2019 Glucose [Mass/volume ] in Blood [facility] Work Phone: Start: 10-14-2019 Basic metabolic 2000 panel - Serum or Plasma Rochelle Salmeron Work Phone: Start: 10-14-2019 Complete blood count with white cell differential, automated Rochelle Salmeron Work Phone: Start: 10-14-2019 Complete blood count with white cell differential, manual Rochelle Salmeron Work Phone: Start: 10-13-2019 Glucose [Mass/volume ] in Blood [facility] Work Phone: Start: 10-13-2019 Glucose [Mass/volume ] in Blood [facility] Work Phone: Start: 10-13-2019 Glucose [Mass/volume ] in Blood [facility] Work Phone: Start: 10-13-2019 End: 10-13-2019 INCISION AND DRAINAGE UPPER EXTREMITY Ayde Almanzar Work Phone: Start: 10-13-2019 Glucose [Mass/volume ] in Blood [facility] Work Phone: Start: 10-12-2019 Glucose [Mass/volume ] in Blood [facility] Work Phone: Start: 10-12-2019 Glucose [Mass/volume ] in Blood [facility] Work Phone: Start: 10-12-2019 Complete blood count with white cell differential, automated Ted Delvalle Work Phone: Start: 10-12-2019 Complete blood count with white cell differential, manual Ted Delvalle Work Phone: Start: 10-12-2019 Comprehensive metabo lic 2000 panel - Serum or Plasma Ted Delvalle Work Phone: Start: 10-12-2019 INR in Platelet poor plasma by Coagulation assay Ted Delvalle Work Phone: Start: 10-08-2019 Debridement Rose Mendoza Work Phone: Start: 09-05-2019 Glucose [Mass/volume ] in Blood Ayde Almanzar Work Phone: Start: 09-05-2019 Radiologic exam ches t single view Marilyn Ramirez Work Phone: Start: 09-05-2019 Urinalysis Marilyn Daina Ramirez Work Phone: Start: 09-05-2019 URINE MELGAR CONTAINER Th álvaroas Logan Jenelle Work Phone: Start: 09-05-2019 Glucose [Mass/volume ] in Blood Ayde Ford Jenelle Work Phone: Start: 09-05-2019 Basic metabolic 2000 panel - Serum or Plasma Fela Solorzano Work Phone: Start: 09-05-2019 Complete blood count with white cell differential, automated Fela Solorzano Work Phone: Start: 09-05-2019 Complete blood count with white cell differential, manual Fela Solorzano Work Phone: Start: 09-05-2019 Thyrotropin [Units/v olume] in Serum or Plasma by Detection limit <= 0.005 mIU/L Selwyn Rader Work Phone: Start: 09-04-2019 Glucose [Mass/volume ] in Blood Ayde Almanzar Work Phone: Start: 09-04-2019 Glucose [Mass/volume ] in Blood Ayde Almanzar Work Phone: Start: 09-04-2019 Radex elbow complete minimum 3 views Fela Solorzano Work Phone: Start: 09-04-2019 Glucose [Mass/volume ] in Blood Ayde Almanzar Work Phone: Start: 09-04-2019 SCAN OTHER ORDERS Provi domingo Not In System Start: 09-04-2019 Fluoroscopy up to 1 hour physician/qhp time Ayde Almanzar Work Phone: Start: 09-04-2019 Radex elbow 2 views Tho wayne Almanzar Work Phone: Start: 09-04-2019 End: 09-04-2019 ARTHROPLASTY ELBOW Ayde Almanzar Work Phone: Start: 09-04-2019 Glucose [Mass/volume ] in Blood Ayde Almanzar Work Phone: Start: 08-28-2019 Basic metabolic 2000 panel - Serum or Plasma Leatha Gomez Work Phone: Start: 08-28-2019 Complete blood count with white cell differential, automated Leatha Gomez Work Phone: Start: 08-28-2019 Complete blood count with white cell differential, manual Leatha Gomez Work Phone: Start: 08-28-2019 Creatinine [Mass/vol ume] in Serum or Plasma Ayde Almanzar Work Phone: Start: 08-28-2019 Glucose [Mass/volume ] in Serum or Plasma Ayde Almanzar Work Phone: Start: 08-28-2019 Hemoglobin and Hemat ocrit panel - Blood Ayde Almanzar Work Phone: Start: 08-28-2019 [address] Generic Start: 04-23-2019 Debridement Rose Alvin Mendoza Work Phone: Start: 02-28-2019 Glucose [Mass/volume ] in Blood Ayde Almanzar Work Phone: Start: 02-28-2019 Glucose [Mass/volume ] in Blood Ayde Almanzar Work Phone: Start: 02-28-2019 Basic metabolic 2000 panel - Serum or Plasma Marilyn Ramirez Work Phone: Start: 02-28-2019 Complete blood count with white cell differential, automated Marilyn Ramirez Work Phone: Start: 02-28-2019 Complete blood count with white cell differential, manual Marilyn Ramirez Work Phone: Start: 02-28-2019 Glucose [Mass/volume ] in Blood Ayde Almanzar Work Phone: Start: 02-28-2019 Glucose [Mass/volume ] in Blood Ayde Almanzar Work Phone: Start: 02-27-2019 Glucose [Mass/volume ] in Blood Ayde Almanzar Work Phone: Start: 02-27-2019 Radex elbow complete minimum 3 views Marilyn Ramirez Work Phone: Start: 02-27-2019 Glucose [Mass/volume ] in Blood Ayde Almanzar Work Phone: Start: 02-27-2019 Fluoroscopy up to 1 hour physician/qhp time Ayde Almanzar Work Phone: Start: 02-27-2019 SCAN OTHER ORDERS Provi domingo Not In System Start: 02-27-2019 Glucose [Mass/volume ] in Blood Ayde Almanzar Work Phone: Start: 02-27-2019 Complete blood count with white cell differential, automated Ayde Almanzar Work Phone: Start: 02-27-2019 Complete blood count with white cell differential, manual Ayde Almanzar Work Phone: Start: 02-21-2019 Radex spine cervical 6 or more views Sveta Silva Work Phone: Start: 02-21-2019 Creatinine [Mass/vol ume] in Serum or Plasma Sveta Silva Work Phone: Start: 02-21-2019 Glucose [Mass/volume ] in Serum or Plasma Sveta Silva Work Phone: Start: 02-21-2019 [address] Generic Plan of Treatment Date Care Activity Detail Author Start: 10-02-2023 Depression Assessment [facility] Start: 08-28-2023 End: 05-28-2024 25-hydroxyvitamin D3 [Mass/volume] in Serum or Plasma VITAMIN D 25 HYDROXY Lab Routine Vitamin D deficiency Expected: 08/28/2023 (Approximate), Expires: 05/28/2024 [facility] Work Phone: Comment on above: Expected: 08/28/2023 (Approximate), Expires: 05/28/2024 Start: 08-28-2023 End: 05-28-2024 BLOOD TB SCREEN BLOOD TB SCREEN Lab Routine Screening-pulmonary TB Expected: 08/28/2023 (Approximate), Expires: 05/28/2024 [facility] Work Phone: Comment on above: Expected: 08/28/2023 (Approximate), Expires: 05/28/2024 Start: 08-28-2023 End: 05-28-2024 C reactive protein [Mass/volume] in Serum or Plasma C-REACTIVE PROTEIN (CRP) Lab Routine Elevated sed rate Elevated C-reactive protein (CRP) Expected: 08/28/2023 (Approximate), Expires: 05/28/2024 [facility] Work Phone: Comment on above: Expected: 08/28/2023 (Approximate), Expires: 05/28/2024 Start: 08-28-2023 End: 05-28-2024 CBC panel - Blood by Automated count CBC Lab Routine Anemia of chronic disease Expected: 08/28/2023 (Approximate), Expires: 05/28/2024 [facility] Work Phone: Comment on above: Expected: 08/28/2023 (Approximate), Expires: 05/28/2024 Start: 08-28-2023 End: 05-28-2024 Cobalamin (Vitamin B12) [Mass/volume] in Serum or Plasma VITAMIN B12 BLOOD Lab Routine Vitamin B12 deficiency Expected: 08/28/2023 (Approximate), Expires: 05/28/2024 [facility] Work Phone: Comment on above: Expected: 08/28/2023 (Approximate), Expires: 05/28/2024 Start: 08-28-2023 End: 05-28-2024 Comprehensive metabolic 2000 panel - Serum or Plasma COMP METABOLIC PANEL Lab Routine Elevated LFTs Expected: 08/28/2023 (Approximate), Expires: 05/28/2024 [facility] Work Phone: Comment on above: Expected: 08/28/2023 (Approximate), Expires: 05/28/2024 Start: 08-28-2023 End: 05-28-2024 Erythrocyte sedimentation rate SED RATE WESTERGREN Lab Routine Elevated sed rate Elevated C-reactive protein (CRP) Expected: 08/28/2023 (Approximate), Expires: 05/28/2024 [facility] Work Phone: Comment on above: Expected: 08/28/2023 (Approximate), Expires: 05/28/2024 Start: 08-11-2023 BP CONTROLLED (<130/80) BP CONTROLLE D (<130/80) [facility] Start: 06-02-2023 Influenza vaccination [facility] Start: 10-31-2022 End: 07-31-2023 25-hydroxyvitamin D3 [Mass/volume] in Serum or Plasma VITAMIN D 25 HYDROXY Lab Routine Vitamin D deficiency Expected: 10/31/2022 (Approximate), Expires: 07/31/2023 [facility] Work Phone: Comment on above: Expected: 10/31/2022 (Approximate), Expires: 07/31/2023 Start: 10-31-2022 End: 07-31-2023 C reactive protein [Mass/volume] in Serum or Plasma C-REACTIVE PROTEIN (CRP) Lab Routine Elevated sed rate Elevated C-reactive protein (CRP) Expected: 10/31/2022 (Approximate), Expires: 07/31/2023 [facility] Work Phone: Comment on above: Expected: 10/31/2022 (Approximate), Expires: 07/31/2023 Start: 10-31-2022 End: 07-31-2023 CBC panel - Blood by Automated count CBC Lab Routine Anemia of chronic disease Expected: 10/31/2022 (Approximate), Expires: 07/31/2023 [facility] Work Phone: Comment on above: Expected: 10/31/2022 (Approximate), Expires: 07/31/2023 Start: 10-31-2022 End: 07-31-2023 Comprehensive metabolic 2000 panel - Serum or Plasma COMP METABOLIC PANEL Lab Routine Elevated LFTs Expected: 10/31/2022 (Approximate), Expires: 07/31/2023 [facility] Work Phone: Comment on above: Expected: 10/31/2022 (Approximate), Expires: 07/31/2023 Start: 10-31-2022 End: 07-31-2023 Erythrocyte sedimentation rate SED RATE WESTERGREN Lab Routine Elevated sed rate Elevated C-reactive protein (CRP) Expected: 10/31/2022 (Approximate), Expires: 07/31/2023 [facility] Work Phone: Comment on above: Expected: 10/31/2022 (Approximate), Expires: 07/31/2023 Start: 10-02-2022 DEPRESSION ASSESSMENT DEPRESSION ASS ESSMENT [facility] Start: 06-02-2022 Influenza vaccination INFLUENZA (#1) [facility] Start: 04-20-2022 Adult depression screening assessment DEPRESSION SCREENING [facility] Start: 03-31-2022 End: 12-29-2022 C reactive protein [Mass/volume] in Serum or Plasma C-REACTIVE PROTEIN (CRP) Lab Routine Elevated sed rate Elevated C-reactive protein (CRP) Expected: 03/31/2022 (Approximate), Expires: 12/29/2022 [facility] Work Phone: Comment on above: Expected: 03/31/2022 (Approximate), Expires: 12/29/2022 Start: 03-31-2022 End: 12-29-2022 CBC panel - Blood by Automated count CBC Lab Routine Anemia of chronic disease Expected: 03/31/2022 (Approximate), Expires: 12/29/2022 [facility] Work Phone: Comment on above: Expected: 03/31/2022 (Approximate), Expires: 12/29/2022 Start: 03-31-2022 End: 12-29-2022 Comprehensive metabolic 2000 panel - Serum or Plasma COMP METABOLIC PANEL Lab Routine Elevated LFTs Expected: 03/31/2022 (Approximate), Expires: 12/29/2022 [facility] Work Phone: Comment on above: Expected: 03/31/2022 (Approximate), Expires: 12/29/2022 Start: 03-31-2022 End: 12-29-2022 Erythrocyte sedimentation rate SED RATE WESTERGREN Lab Routine Elevated sed rate Elevated C-reactive protein (CRP) Expected: 03/31/2022 (Approximate), Expires: 12/29/2022 [facility] Work Phone: Comment on above: Expected: 03/31/2022 (Approximate), Expires: 12/29/2022 Start: 03-31-2022 End: 12-29-2022 VITAMIN D 25 HYDROXY VITAMIN D 25 HYDROXY Lab Routine Vitamin D deficiency Expected: 03/31/2022 (Approximate), Expires: 12/29/2022 [facility] Work Phone: Comment on above: Expected: 03/31/2022 (Approximate), Expires: 12/29/2022 Start: 10-02-2021 DEPRESSION ASSESSMENT DEPRESSION ASS ESSMENT [facility] Start: 11-18-2021 COVID-19 VACCINE (3 - Pfizer risk 4-dose series) COVID-19 VACCINE (3 - Pfizer risk 4-dose series) [facility] Start: 08-19-2021 COVID-19 VACCINE (3 - Pfizer risk series) COVID-19 VACCINE (3 - Pfizer risk series) [facility] Start: 06-02-2021 Influenza vaccination INFLUENZA (#1) [facility] Start: 06-02-2020 Influenza vaccinatio n given Sequential Influenza Vaccine (#1) [facility] Start: 10-15-2019 End: 10-15-2019 Office Visit 10/15/[address] [facility] Start: 09-04-2019 End: 09-04-2019 Hospital Encounter [facility] Comment on above: LEFT TOTAL ELBOW ART HROPLASTY WITH ULNAR NERVE RELEASE WITH ANTERIOR TRANSPOSITION, EXCISION RADIAL HEAD Start: 07-20-2019 ANNUAL PCP TEAM PUBLIC AFFAIRS SPECIALIST TIFFANIE DISEASE VISIT ANNUAL PCP TEAM CHRONIC DISEASE VISIT [facility] Start: 06-02-2019 Influenza vaccinatio n given [facility] Start: 2019 RSV Vaccine (1 - 1-d ose 60+ series) RSV Vaccine (1 - 1-dose 60+ series) [facility] Start: 04-30-2019 End: 04-30-2019 Office Visit 04/30/2019 Office Visit [facility] Start: 02-27-2019 End: 02-27-2019 Hospital Encounter [facility] Comment on above: RIGHT TOTAL ELBOW AR THROPLASTY, ULNAR NERVE RELEASE WITH ANTERIOR TRANSPOSITION, RADIAL HEAD EXCISION Start: 02-21-2019 End: 02-21-2020 XR Cervical Spine with Flexion and Extension 6+ Views XR Cervical Spine with Flexion and Extension 6+ Views Imaging Routine Pre-op exam Expected: 02/21/2019, Expires: 02/21/2020 [facility] Comment on above: Expected: 02/21/2019 , Expires: 02/21/2020 Start: 2009 Administration of he rpes zoster vaccine Zoster Vaccines (1 of 2) [facility] Start: 2009 Screening for malign ant neoplasm of colon [facility] Start: 2009 SHINGRIX VACCINE (1 of 2) SHINGRIX VACCINE (1 of 2) [facility] Start: 2004 COLOGUARD (FIT-DNA) COLOGUARD (FIT-D NA) [facility] Start: 2004 Colonoscopy COLONOSCOPY [facility] Start: 2004 COLORECTAL CANCER SCREENING COLORECTAL CANCER SCREENING [facility] Start: [address] COLONOGRAPHY [facility] Start: 2004 FECAL OCCULT BLOOD FECAL OCCULT BLOO D [facility] Start: 2004 Screening for malign ant neoplasm of colon [facility] Start: 2004 SIGMOIDOSCOPY SIGMOIDOSCOPY [facility] Start: 1999 Mammography [facility] Start: 1999 Screening for malign ant neoplasm of breast Mammogram Screening [facility] Start: 1989 HPV TESTING HPV TESTING [facility] Start: 1989 Screening for malign ant neoplasm of cervix HPV Testing [facility] Start: 1980 PAP TESTING PAP TESTING [facility] Start: 1980 Screening for malign ant neoplasm of cervix Pap Testing [facility] Start: 1978 SHINGRIX VACCINE (1 of 2) SHINGRIX VACCINE (1 of 2) [facility] Start: 1978 Urine microalbumin profile [facility] Start: 1977 Annual PCP Team [employer] tiffanie Disease Visit Annual PCP Team Chronic Disease Visit [facility] Start: 1977 BP CONTROLLED (<130/80) BP CONTROLLE D (<130/80) [facility] Start: 1977 Hepatitis B surface antibody level LDL CHOLESTEROL [facility] Start: 1977 Hepatitis C antibody , confirmatory test Hepatitis C Screening [facility] Start: 1977 HIV SCREENING HIV SCREENING [facility] Start: 1977 HIV screening HIV Screening [facility] Start: 1977 SPIROMETRY SPIROMETRY [facility] Start: 1975 COVID-19 Vaccine (1 of 2) COVID-19 Vaccine (1 of 2) [facility] Start: 1975 ONE PNEUMOVAX PRIOR TO AGE 65 ONE PNEUMOVAX PRIOR TO AGE 65 [facility] Start: 1974 HIV screening HIV Screening [facility] Start: 1971 Adolescent depressio n screening assessment Depression Screening (PHQ9) [facility] Start: 1969 3 comp foot exam completed DIABETIC FOOT EXAM [facility] Start: 1969 Albumin DL <= 20 mg/ L mass conc (U) URINE MICROALBUMIN [facility] Start: 1969 Diabetic foot examination [facility] Start: 1969 Glaucoma screening Dilated Retinal E xam [facility] Start: 1969 Hepatitis B screening URINE ALBUMIN:CREATININE RATIO [facility] Start: 1969 Hepatitis C antibody , confirmatory test DILATED RETINAL EXAM [facility] Start: 1969 Ophthalmic examinati on and evaluation Ophthalmology Exam [facility] Start: 1965 PNEUMOCOCCAL (1 - PCV) PNEUMOCOCCAL (1 - PCV) [facility] Start: 1965 Pneumococcal vaccination [facility] Start: 1964 Hemoglobin A1c measurement HbA1C [facility] Start: 1964 Hemoglobin A1c/Hemoglobin.total in Blood HBA1C [facility] Start: 1962 History and physical examination, annual for health maintenance Wellness Visit [facility] Start: 1959 Hemoglobin A1c/Hemoglobin.total mass fraction (Bld) A1C [facility] Start: 1959 Hepatitis C antibody , confirmatory test HEPATITIS C SCREENING [facility] Start: 1959 Protein mass conc [facility]ammogram [facility] Start: 1959 Screening for malign ant neoplasm of cervix PAP SMEAR [facility] Start: 1959 Screening for malign ant neoplasm of colon Colorectal Cancer Screening: Colonoscopy [facility] Start: 1959 Screening mammography [facility] Start: 1959 Tetanus vaccination [facility] 12 lead ECG [facility] Comment on above: Ordered: 02/20/2019 Ordered: 08/26/2019 Anaerobic microbial culture Tissue Anaerobic Culture Microbiology Routine Skin ulcer of elbow with fat layer exposed ([facility]) 10/08/2019 11:20 AM EST [facility] Tissue culture Tissue Aerobic C ulture Microbiology Routine Skin ulcer of elbow with fat layer exposed ([facility]) 10/08/2019 11:20 AM EST [facility] XR Cervical Spine wi th Flexion and Extension 6+ Views XR Cervical Spine with Flexion and Extension 6+ Views Imaging Routine Pre-op exam 02/21/2019 1:43 PM EDT [facility] Immunizations Immunization Date Immunization Notes Care Provider Fa demian 05-30-2020 influenza virus vacc ine, unspecified formulation Pepe Carter MD Work Phone: [facility] Payers Date Payer Category Payer Medicare HUMANA MEDICARE HUMANA GOLD PLUS [id number] 2021-Present [phone] [address] [address] [place] [address] HMO [id number] 2021 Medicare HUMANA MEDICARE HUMANA GOLD PLUS [id number] 2021-Present [phone] [address] [address] [place] [address] HMO [id number] 2018 Unknown [employer]/PREF/HMO/PPO [id number] 2018-Present [id number] 2018 Unknown [id number] 2018 Unknown [id number] 2018 Unknown [employer]/PREF/HMO/PPO [id number] 2018-Present [id number] 1959 Medicare [id number] 1959 Unknown [id number]. 1959 Unknown [id number] 1959 Unknown [id number] 1959 Unknown [id number] [id number] 1959 Unknown [id number] 1959 Unknown [id number] 1959 Unknown [id number] [id number] 1959 Unknown [id number] [id number] 1959 Unknown [id number] [id number] 1959 Unknown [id number] [id number] 1959 Unknown [id number] [id number] 1959 Unknown [id number] [id number] 1959 Unknown [id number] [id number] 1959 Unknown [id number] [id number] 1959 Unknown [id number] [id number] 1959 Unknown [id number] [id number] 1959 Unknown [id number] [id number] 1959 Unknown [id number] Social History Date Type Detail Facility Start: 02-21-2019 End: 08-11-2022 Tobacco smoking status NEIS Never smoker [facility] Work Phone: Start: 02-21-2019 History SDOH Alcohol Frequency 1 [facility] Sex Assigned At Not on file [facility] Start: 08-28-2019 End: 09-05-2019 Alcohol intake Lifetime non-drinker (finding) [facility] Start: 12-18-2021 End: 08-11-2022 Exposure to SARS-CoV-2 (event) Not sure [facility] Start: 04-09-2020 End: 08-11-2022 Tobacco use and exposure Never used [facility] Start: 07-26-2021 End: 11-23-2023 Alcohol intake Current non-drinker of alcohol (finding) [facility] Start: 1960 Sex Assigned At Female [facility] Start: 12-20-2021 End: 12-30-2021 Exposure to SARS-CoV-2 (event) Unable to assess [facility] Start: 07-26-2021 End: 02-20-2023 History of Social function [facility] Start: 07-26-2021 End: 02-20-2023 Tobacco use panel [facility] Adult Depression Screening Assessment 3 [facility] Start: 01-06-2021 Gender identity Identifies as female gender (finding) [facility] Start: 01-06-2021 Sexual orientation Heterosexual (finding) [facility] Medical Equipment Procedure Code Equipment Code Equipment Origin al Text Equipment Identifier Dates Cement Bone Anti biotic Simplex P W/Tobramycin Single Dose - [id number] Start: 02-27-2019 Cement Bone Anti biotic Simplex P W/Tobramycin Single Dose - [id number] Start: 02-27-2019 Plug 10mm Cement Sm Diameter - [id number], [id number] FDA Start: 02-27-2019 Component 3in Ul na Plasma Xsm Rt C/M - [id number], [id number] FDA Start: 02-27-2019 Component 4in Hu meral Xsm C/M - [id number] , [id number] FDA Start: 02-27-2019 Cement Bone Anti biotic Simplex P W/Tobramycin Single Dose - [id number] Start: 09-04-2019 Plug 8mm Cement Sm Diameter - [id number] Start: 09-04-2019 Plug 8-10mm Sm I m Canal - [id number] Start: 09-04-2019 [place]ia/[place] To charis Elbow Interchangeable Humeral Assembly Extra Small 4 Inch Length [id number] Start: 09-04-2019 [place] T otal Elbow Interchangeable Ulnar Assembly Extrasmall Left 3 Inch [id number] Start: 09-04-2019 Plug 8-10mm Sm I m Canal - [id number] Start: 09-04-2019 Start: 11-18-2016 End: 08-11-2022 Comment on above: Substitute equivalent syringe/needles fo r weekly sq methotrexate To use with Methotre xate Sodium injection. 1ml weekly SQ Clinical Notes 12-29-2021 to 11-23-2023 Pepe Carter MD - 11/23/2023 9:00 AM ESTPatient InstructionsTelephone Encounter - Lesli Navarro LPN - 07/12/2023 7:41 AM EDTTelephone Encounter - Pepe Carter MD - 07/10/2023 3:20 PM EDT Note Date & Type Note Facility 11-23-2023 Note HNO ID: [id number] Author: PEPE CARTER MD Service: ? Author Type: Physician Type: Progress Notes Filed: 11/23/2023 09:25 Note Text: Face to face Follow up for rheumatoid arthritis/ degenerative joint disease/joint pain/ osteopenia Today's visit 11/23/23:due for labs. taking methotrexate 10tabs weekly when liquid not available, sulfasalazine 1tab 3times a day, arava 20mg daily, rinvoq,neurontin, vitamin D 5000 International Units daily with food. Last month recent oral steroids due to pain flare with good response. R eye changes possibly from diabetes on last eye exam, already had both laser treatment. Due for next eye exam 01/2024. Same dryness. Frequent falls, last one 2weeks, coming down the stairs, unsure why. After back surgery RLE drags and R great toe numb Completed OT after elbow surgery 70% improvement from rinvoq. Notices dry skin. limited exercise due to frequent falls. Mild 2nd MCP swelling. Chronic current pain in both hands, R>L hips, L>R neck, both knees. Reports pain 4/10. Has minimal AM stiffness. Feels safe at home. Has enough food, supplies and medications. Overall mildly uncomfortable but happy with rheum care. No falls/fx/trauma/illness/oral sores/rash/hairloss/jaw pain/dysphagia/epistaxis/hemoptys is since last visit. No adverse effects with meds. No other complaints. Patient denies fever, chills, cp, dyspnea, nausea, vomiting, night sweats, scalp tenderness, visual changes, abbott, bowel/bladder changes, weight changes or other complaints. 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/due for back injections, see neurosurgeon/due for possible L5-S1 surgery if BMD stable, improved with prednisone/take for flares morgan, follow up with UE/hand ortho/postponing R shoulder/wrist surgeries, 40mg kenalog IM 09/16/15, f/u with GI for GI issues eval, improved with xeljanz OFF due to cost, see ortho s/p R TKR, f/u hand ortho for arm/elbow/wrist care and for trigger finger injection if needed again, neurontin 300mg 3times a day and increase if necessary, no lyrica (no response), improved with humira but worsens asthma, much improved with rinvoq daily/received by [employer], continue sq 1ml once every other week injections methotrexate (HOLD 1-2weeks after vaccines), ssz 500mg 3times a day, daily arava, OFF plaquenil, prozac and f/u with PCP for adjustment, nightly and prn wrist splints, PT exercises for contractures, eyedrops per ophthalmology 02/20/23:due for bmd after 11/27/22. [facility] 11/27/20 BMD osteopenia. taking sulfasalazine tab 3times a day, arava 20mg aily, methotrexate 1ml sq injection weekly, daily folic acid (not covered by script), rinvoq, neurontin 300mg 10caps per day, lidoderm, vitamin D 5000 International Units daily with food. Only had recent oral steroids with last infection 09/2022. 100% improvement from rinvoq. Restarted walking exercise almost 2miles. decreased swelling hands/right elbow. Chronic current pain in hands, all over, shoulders, back, R hip/restricted. Reports pain 5/10. Has minimal AM stiffness. Numbness of left 4th/5th and right foot, chronic. Saw pain clinic. Seeing endo, hgba1c improved from 12 to 9, goal for <7. Eating healthier diet, tried keto diet. Not a fan of the bread. Had eye exam, right membrane surgery if approve/from high glucose/awaiting insurance appeal/initially denied. COVID vaccine 07/01/21, 07/22/21. Feels safe at home. Has enough food, supplies and medications. Overall mildly uncomfortable but happy with rheum care. No falls/fx/trauma/illness/oral sores/rash/hairloss/jaw pain/dysphagia/epistaxis/hemoptys is since last visit. No adverse effects with meds. No other complaints. Patient denies fever, chills, cp, dyspnea, nausea, vomiting, night sweats, scalp tenderness, visual changes, abbott, bowel/bladder changes, weight changes or other complaints. 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/due for back injections, see neurosurgeon/due for possible L5-S1 surgery if BMD stable, improved with prednisone/take for flares morgan, follow up with UE/hand ortho/postponing R shoulder/wrist surgeries, 40mg kenalog IM 09/16/15, f/u with GI for GI issues eval, improved with xeljanz OFF due to cost, see ortho s/p R TKR, f/u hand orthofor arm/elbow/wrist care and for trigger finger injection if needed again, neurontin 300mg 3times a day and increase if necessary, no lyrica (no response), improved with humira but worsens asthma, rinvoq daily/restart when received by [employer], continue sq 1ml once every other week injections methotrexate (HOLD 1-2weeks after vaccines), ssz 500mg 3times a day, daily arava, OFF plaquenil, prozac and f/u with PCP for adjustment, nightly and prn wrist splints, PT exercises for contractures, eyedrops per ophthalmology, 08/11/22:saw pulm 11/2021, no rheumatoid arthritis associated ILD. Had COVID19 infection in 05/2022 treated with (more content not included)... [facility] 11-23-2023 History of Present illness Narrative Face to face Follow up for rheumatoid arthritis/ degenerative joint disease/joint pain/ osteopenia Today's visit 11/23/23:due for labs. taking methotrexate 10tabs weekly when liquid not available, sulfasalazine 1tab 3times a day, arava 20mg daily, rinvoq,neurontin, vitamin D 5000 International Units daily with food. Last month recent oral steroids due to pain flare with good response. R eye changes possibly from diabetes on last eye exam, already had both laser treatment. Due for next eye exam 01/2024. Same dryness. Frequent falls, last one 2weeks, coming down the stairs, unsure why. After back surgery RLE drags and R great toe numb Completed OT after elbow surgery 70% improvement from rinvoq. Notices dry skin. limited exercise due to frequent falls. Mild 2nd MCP swelling. Chronic current pain in both hands, R>L hips, L>R neck, both knees. Reports pain /10. Has minimal AM stiffness. Feels safe at home. Has enough food, supplies and medications. Overall mildly uncomfortable but happy with rheum care. No falls/fx/trauma/illness/oral sores/rash/hairloss/jaw pain/dysphagia/epistaxis/hemoptys is since last visit. No adverse effects with meds. No other complaints. Patient denies fever, chills, cp, dyspnea, nausea, vomiting, night sweats, scalp tenderness, visual changes, abbott, bowel/bladder changes, weight changes or other complaints. 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/due for back injections, see neurosurgeon/due for possible L5-S1 surgery if BMD stable, improved with prednisone/take for flares morgan, follow up with UE/hand ortho/postponing R shoulder/wrist surgeries, 40mg kenalog IM 09/16/15, f/u with GI for GI issues eval, improved with xeljanz OFF due to cost, see ortho s/p R TKR, f/u hand ortho for arm/elbow/wrist care and for trigger finger injection if needed again, neurontin 300mg 3times a day and increase if necessary, no lyrica (no response), improved with humira but worsens asthma, much improved with rinvoq daily/received by [employer], continue sq 1ml once every other week injections methotrexate (HOLD 1-2weeks after vaccines), ssz 500mg 3times a day, daily arava, OFF plaquenil, prozac and f/u with PCP for adjustment, nightly and prn wrist splints, PT exercises for contractures, eyedrops per ophthalmology 02/20/23:due for bmd after 11/27/22. [facility] 11/27/20 BMD osteopenia. taking sulfasalazine tab 3times a day, arava 20mg aily, methotrexate 1ml sq injection weekly, daily folic acid (not covered by script), rinvoq, neurontin 300mg 10caps per day, lidoderm, vitamin D 5000 International Units daily with food. Only had recent oral steroids with last infection 09/2022. 100% improvement from rinvoq. Restarted walking exercise almost 2miles. decreased swelling hands/right elbow. Chronic current pain in hands, all over, shoulders, back, R hip/restricted. Reports pain 5/10. Has minimal AM stiffness. Numbness of left 4th/5th and right foot, chronic. Saw pain clinic. Seeing nadya, hgba1c improved from 12 to 9, goal for <7. Eating healthier diet, tried keto diet. Not a fan of the bread. Had eye exam, right membrane surgery if approve/from high glucose/awaiting insurance appeal/initially denied. COVID vaccine 07/01/21, 07/22/21. Feels safe at home. Has enough food, supplies and medications. Overall mildly uncomfortable but happy with rheum care. No falls/fx/trauma/illness/oral sores/rash/hairloss/jaw pain/dysphagia/epistaxis/hemoptys is since last visit. No adverse effects with meds. No other complaints. Patient denies fever, chills, cp, dyspnea, nausea, vomiting, night sweats, scalp tenderness, visual changes, abbott, bowel/bladder changes, weight changes or other complaints. 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 clinic for assisted pain recommendations/due for back injections, see neurosurgeon/due for possible L5-S1 surgery if BMD stable, improved with prednisone/take for flares morgan, follow up with UE/hand ortho/postponing R shoulder/wrist surgeries, 40mg kenalog IM 09/16/15, f/u with GI for GI issues eval, improved with xeljanz OFF due to cost, see ortho s/p R TKR, f/u hand ortho for arm/elbow/wrist care and for trigger finger injection if needed again, neurontin 300mg 3times a day and increase if necessary, no lyrica (no response), improved with humira but worsens asthma, rinvoq daily/restart when received by [employer], continue sq 1ml once every other week injections methotrexate (HOLD 1-2weeks after vaccines), ssz 500mg 3times a day, daily arava, OFF plaquenil, prozac and f/u with PCP for adjustment, nightly and prn wrist splints, PT exercises for contractures, eyedrops per ophthalmology, 08/11/22:saw pulm 11/2021, no rheumatoid arthritis associated ILD. Had COVID19 infection in 05/2022 treated with steroids and inhalers. Out of rinvoq for 6months. Taking neurontin, methotrexate 1ml sq weekly, sulfasalazine 3tabs daily, arava 20mg daily, vitamin D 5000 International Units daily with food. 50-70% improvement from rinvoq. Chronic current pain in R knees, RLE, R great toe/foot/curling (better when on rinvoq or steroids), hands, L shoulder, LUE, neck, hips, back, spasms. Reports pain 10. Several hours minimal AM stiffness. COVID vaccine [employer] 07/01/21, 07/22/21. 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 3rd grandchild (boy) due 11/2022. Feels safe at home. Has enough food, supplies and medications. Overall uncomfortable but happy with rheum care. No falls/fx/trauma/illness/oral sores/rash/hairloss/jaw pain/dysphagia/epistaxis/hemoptys is since last visit. No adverse effects with meds. No other complaints. Patient denies fever, chills, cp, dyspnea, nausea, vomiting, night sweats, scalp tenderness, visual changes, abbott, bowel/bladder changes, weight changes or other complaints. 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 clinic for assisted pain recommendations/due for back injections, see neurosurgeon/due for possible L5-S1 surgery if BMD stable, improved with prednisone/take for flares morgan, follow up with UE/hand ortho/postponing R shoulder/wrist surgeries, 40mg kenalog IM 09/16/15, f/u with GI for GI issues eval, improved with xeljanz OFF due to cost/restart when affordable, see ortho s/p R TKR, f/u hand ortho for arm/elbow/wrist care and for trigger finger injection if needed again, neurontin 300mg 3times a day and increase if necessary, no lyrica (no response), improved with humira but worsens asthma/patient requests to switch back to xeljanz if approved, continue sq 1ml once every other week injections methotrexate (HOLD 1-2weeks after vaccines), ssz 500mg 3times a day, daily arava, OFF plaquenil, prozac and f/u with PCP for adjustment, nightly and prn wrist splints, PT exercises for contractures, eyedrops per ophthalmology 07/26/21:s/p L5/S1 surgery 01/2021 with less pain in RLE. But had R foot numbness. Had infection from incision. Treated with antibiotics x 2weeks. trouble breathing, passed out in shower, went to hospital 05/11/21, had cardiac work up, treated with IV steroids which improved her breathing. found a lump on upper back, due to see surgery. Had [employer] 07/01/21, 07/22/21. wants to return to xeljanz since it did not cause lung issues vs humira/worsens breathing/asthma. More joint pain if stretching humira to every 3weeks. Still taking gabapentin. Reports pain 05/11. Moderate AM stiffness several hours. Nodule on L elbow. Numbness and tingling of 4th/5th fingers after L elbow surgery. Feels safe at home. Has enough food, supplies and medications. Overall mildly uncomfortable but happy with rheum care. No falls/fx/trauma/illness/oral sores/rash/hairloss/jaw pain/dysphagia/epistaxis/hemoptys is since last visit. No adverse effects with meds. No other complaints. Patient denies fever, chills, cp, dyspnea, nausea, vomiting, night sweats, scalp tenderness, visual changes, abbott, bowel/bladder changes, weight changes or other complaints. 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/due for back injections, see neurosurgeon/due for possible L5-S1 surgery if BMD stable, start prednisone morgan, follow up with UE/hand ortho/postponing R shoulder/wrist surgeries, 40mg kenalog IM 09/16/15, f/u with GI for GI issues eval, improved with xeljanz OFF due to cost/switch when affordable, see ortho s/p R TKR, f/u hand ortho for arm/elbow/wrist care and for trigger finger injection if needed again, neurontin 300mg 3times a day and increase if necessary, no lyrica (no response), improved with humira but worsens asthma/patient requests to increase 1-2weeks as tolerated, continue sq 1ml once every other week injections methotrexate (HOLD 1-2weeks after vaccines), ssz 500mg 3times a day, daily arava, OFF plaquenil, prozac and f/u with PCP for adjustment, nightly and prn wrist splints, PT exercises for contractures, eyedrops per ophthalmology 12/10/20:still on humira, methotrexate, gabapentin 9tabs once a week. worsening R buttock pain down RLE x 4months. Found to have severe L5-S1 pain with nerve root impingement. Due to have back injection to burn the nerve next week. Due to see neurosurgeon soon for possible surgery eval. Had BMD in [facility], no response. Saw pain clinic and on lidocaine 5%. More joint pain/swelling R>L hand/R wrist since spacing humira to every 21days for asthma (which is great). Patient requesting to increase humira to 14days due to joint pain/swelling. No steroids since last office visit. Same L 4th/5th finger numbness. Wants COVID vaccine. Reports pain 9-10/10. Extended AM stiffness. Feels safe at home. Has enough food, supplies and medications. Forgot BP medication this AM. Overall mildly uncomfortable but happy with rheum care. No falls/fx/trauma/illness/oral sores/rash/hairloss/jaw pain/dysphagia/epistaxis/hemoptys is since last visit. No adverse effects with meds. No other complaints. Patient denies fever, chills, cp, dyspnea, nausea, vomiting, night sweats, scalp tenderness, visual changes, abbott, bowel/bladder changes, weight changes or other complaints. Last visit supportive care, increase calcium/potassium intake if levels low, follow up with UE/hand ortho/postponing R shoulder/wrist surgeries, 40mg kenalog IM 09/16/15, f/u with GI for GI issues eval, restart prednisone morgan as needed for flares, improved with xeljanz OFF due to cost/restart when affordable, see ortho s/p R TKR, f/u hand ortho for arm/elbow/wrist care and for trigger finger injection if needed again, neurontin 300mg 3times a day and increase if necessary, no lyrica (no response), improved with humira but worsens asthma/thus take every 2-3weeks as tolerated, continue sq 1ml once every other week injections methotrexate, ssz 500mg 3times a day, daily arava, OFF plaquenil, prozac and f/u with PCP for adjustment, nightly and prn wrist splints, PT exercises for contractures, eyedrops per ophthalmology 07/13/20:R hand/elbow better with elbow//ulnar entrapment release surgery 10/2019. But L 4th/5th fingerpain since 3elbow/ulnar entrapment release surgeries 09/2019 last on 04/2020. Saw neurology, severe L hand nerve impairment. Better with voltaren gel. More frequent asthma. Negative COVID-19 test. Feels safe at home. Has enough food, supplies and medications. Back on humira busy sometimes it worsens asthma attack, but keeps joint pain/swelling. Reports pain 3-5/10. Minimal Am stiffness. Overall mildly uncomfortable but happy with rheum care. No falls/fx/trauma/illness/oral sores/rash/hairloss/jaw pain/dysphagia/epistaxis/hemoptys is since last visit. No adverse effects with meds. No other complaints. Patient denies fever, chills, cp, dyspnea, nausea, vomiting, night sweats, scalp tenderness, visual changes, abbott, bowel/bladder changes, weight changes or other complaints. Last visit supportive care, increase calcium/potassium intake if levels low, follow up with UE/hand ortho, 40mg kenalog IM 09/16/15, f/u with GI for GI issues eval, restart prednisone morgan as needed for flares, improved with xeljanz OFF due to cost, see ortho s/p R TKR, f/u hand ortho for arm/elbow/wrist care and for trigger finger injection if needed again, neurontin 300mg 3times a day and increase if necessary, no lyrica (no response), improved with humira, continue sq 1ml once every other week injections methotrexate, ssz 500mg 3times a day, daily arava, OFF plaquenil, prozac and f/u with PCP for adjustment, nightly and prn wrist splints, PT exercises for contractures, eyedrops per ophthalmology 01/16/20:in 10/13/19 Dr Almanzar is admitting pt to hospital in [place] to debride wound she has on her left elbow. Was in ED 10/12/19 for nonhealing LUE wound/now healed. Developed on LUE hematoma. Had EMG hematoma pressing on nerve. Still numbness and tingling L 4th/5th fingers. Off rheum meds x 3weeks, back on rheum meds/humira/arava/mtx. Likes the humira. reports pain /10. Minimal AM stiffness. Now on prozac 20mg helps her sleep/high stress/anxiety. Overall mildly uncomfortable but happy with rheum care. No falls/fx/trauma/illness/oral sores/rash/hairloss/jaw pain/dysphagia/epistaxis/hemoptys is since last visit. No adverse effects with meds. No other complaints. Patient denies fever, chills, cp, dyspnea, nausea, vomiting, night sweats, scalp tenderness, visual changes, abbott, bowel/bladder changes, weight changes or other complaints. Last visit supportive care, increase calcium/potassium intake if levels low, follow up with UE/hand ortho, 40mg kenalog IM 09/16/15, f/u with GI for GI issues eval, restart prednisone morgan as needed for flares, improved with xeljanz OFF due to cost, f/u ortho s/p R TKR, f/u hand ortho for trigger finger injection if needed again, neurontin 300mg 3times a day and increase if necessary, no lyrica (no response), improved with humira, continue sq 1ml once every other week injections methotrexate, ssz 500mg 3times a day, may consider trial arava in future if high APRs, OFF plaquenil, prozac and f/u with PCP for adjustment, nightly and prn wrist splints, PT exercises for contractures, eyedrops per ophthalmology 07/17/19:feeling 90% better with humira and rheum meds. One asthma flare since last office visit. methotrextae once every week. Tolerating daily arava/ssz. Still has R 4th/5th numbness, ortho will improve 1year after elbow surgery/ulnar nerve (5months ago). 5lb weight restriction with arm after surgery for life. Due for L elbow surgery but patient postponing. Slight nausea. unable to open pill bottle. Working with PT. Reports pain 10/11. Minimal Am stiffness. Not on diuretic, mvi, calcium/potassium supplements. Has cramps in thighs. Overall mildly uncomfortable but happy with rheum care. No falls/fx/trauma/illness/oral sores/rash/hairloss/jaw pain/dysphagia/epistaxis/hemoptys is since last visit. No adverse effects with meds. No other complaints. Patient denies fever, chills, cp, dyspnea, nausea, vomiting, night sweats, scalp tenderness, visual changes, abbott, bowel/bladder changes, weight changes or other complaints. Last visit supportive care, follow up with UE/hand ortho, 40mg kenalog IM 09/16/15, f/u with GI for GI issues eval, restart prednisone morgan as needed for flares, improved with xeljanz restart if affordable, f/u ortho s/p R TKR, f/u hand ortho for trigger finger injection if needed again, neurontin 300mg 3times a day and increase if necessary, no lyrica (no response), OFF humira due to frequent infections, continue sq 1ml weekly injections methotrexate, ssz 500mg 3times a day, may consider trial arava in future if high APRs, OFF plaquenil, prozac and f/u with PCP for adjustment, nightly and prn wrist splints, PT exercises for contractures, eyedrops per ophthalmology 01/14/19;off xeljanz due to cost. Last dose of methotrexate Monday. R elbow injection from ortho 2months ago with 1day relief. Future surgery of R elbow and R wrist fusion may require her to change future occupation due to limited heavy lifting. Will see another ortho for 2nd opinion. Lost weight due to nausea and pain. 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 [place] better on xeljanz and did not have more frequent infections. Reports pain 05/11. Moderate AM stiffness. Overall mildly uncomfortable but happy with rheum care. No falls/fx/trauma/illness/oral sores/rash/hairloss/jaw pain/dysphagia/epistaxis/hemoptys is since last visit. No adverse effects with meds. No other complaints. Patient denies fever, chills, cp, dyspnea, nausea, vomiting, night sweats, scalp tenderness, visual changes, abbott, bowel/bladder changes, weight changes or other complaints. Last visit supportive care, consult hand ortho, 40mg kenalog IM 09/16/15, f/u with GI for GI issues eval, restart prednisone morgan as needed for flares, improved with xeljanz restart if affordable, f/u ortho s/p R TKR, f/u hand ortho for trigger finger injection if needed again, neurontin 300mg 3times a day and increase if necessary, no lyrica (no response), OFF humira due to frequent infections, continue sq 1ml weekly injections methotrexate, ssz 500mg 3times a day, may consider trial arava in future if high APRs, OFF plaquenil, prozac and f/u with PCP for adjustment, nightly and prn wrist splints, PT exercises for contractures, eyedrops per ophthalmology 07/16/18:last dose xeljanz 11mg a few days ago, too costly with new insurance. Has not missed methrexate weekly, last Monday. Daily folic acid. Still taking ssz. Not taking plaquenil. More hand/wrist and elbow pain. But no increase in swelling. Had RLE lateral leg shingles ~2015, better with neurontin. Due to have new grandchild soon. Reports pain 05/11. Moderate AM stiffness. Not on prednisone (did take once for joint pain flare). No hospitalizations since last office visit. Overall uncomfortable but happy with rheum care. No falls/fx/trauma/illness/oral sores/rash/hairloss/jaw pain/dysphagia/epistaxis/hemoptys is since last visit. No adverse effects with meds. No other complaints. Patient denies fever, chills, cp, dyspnea, nausea, vomiting, night sweats, scalp tenderness, visual changes, abbott, bowel/bladder changes, weight changes or other complaints. Last visit supportive care and f/u with PCP for infection care, 40mg kenalog IM 09/16/15, f/u with GI for GI issues eval, restart prednisone morgan as needed for flares, stop xeljanz due to increased infections (joint pain/swelling much improved with med/may reconsider 5mg daily in future), f/u ortho s/p R TKR, f/u hand ortho for trigger finger injection if needed again, neurontin 300mg 3times a day and increase if necessary, no lyrica (no response), OFF humira due to frequent infections, when infection free restart sq 1ml weekly injections methotrexate, ssz 500mg 3times a day, 400mg daily plaquenil, prozac and f/u with PCP for adjustment, nightly and prn wrist splints, PT for contractures, eyedrops per ophthalmology 04/18/17:off prednisone x 6months. In hospital 11/2016 lung infection treated with antibiotics, another admission for dehydration 12/2016 abdominal pain. New endo med added 2-3months ago. Since Last OV had 3-4 UTIs. Patient thinks more infections and dehydration from xeljanz with new endo med. Less joint swelling. But more muscle pain in neck/R upper back/shoulder/R hand numbness, ankles/feet. Concerned about her performance at work due to her joint pain. Interested in disability. Declined tablet survey. Overall doing ok and happy with care. No falls/fx/trauma/illness/oral sores/rash/hairloss/jaw pain/dysphagia/epistaxis/hemoptys is since last visit. No adverse effects with meds. No other complaints. Patient denies fever, chills, cp, dyspnea, nausea, vomiting, night sweats, scalp tenderness, visual changes, abbott, bowel/bladder changes, weight changes or other complaints. Last visit supportive care and f/u with PCP for infection care, start zpak, 40mg kenalog IM 09/16/15, f/u with GI for GI issues eval, OFF prednisone since fall 2015, when infection free restart xeljanz XR 11mg daily if approved since much improved with med (otherwise start trial of enbrel 25mg sq injection once a week per insurance request), f/u ortho s/p R TKR, f/u hand ortho for trigger finger injection if needed again, neurontin 300mg 3times a day and increase if necessary, no lyrica (no response), OFF humira due to frequent infections, when infection free restart sq 1ml weekly injections methotrexate, ssz 500mg 3times a day, 400mg daily plaquenil, prozac and f/u with PCP for adjustment, nightly and prn wrist splints, PT for contractures, eyedrops per ophthalmology 12/01/16:fell 07/2017 with R elbow fracture and black eye. Not seen since 03/2016. coughing yellow sputum, sore throat. Hoarse voice. 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 Declined tablet survey. Tired. Feeling better since adding methotrexate and xeljanz to plaquenil and SSZ. Thus weaned off prednisone fall 2015, due to high sugars. Walking without a cane since feeling better. Mild arthralgias but no joint pain today 0/10. Minimal AM stiffness. Declined tablet survey. Overall doing ok and happy with rheum care. No falls/fx/trauma/illness/oral sores/rash/hairloss/jaw pain/dysphagia/epistaxis/hemoptys is since last visit. No adverse effects with meds. No other complaints. Patient denies fever, chills, cp, dyspnea, nausea, vomiting, night sweats, scalp tenderness, visual changes, abbott, bowel/bladder changes, weight changes or other complaints. Last visit supportive care, 40mg kenalog IM 09/16/15, f/u with GI for GI issues eval, start prednisone 1-2tab daily, restart xeljanz XR 11mg daily if approved since much improved with med (otherwise start trial of enbrel 25mg sq injection once a week per insurance request), f/u ortho s/p R TKR, f/u hand ortho for trigger finger injection if needed again, neurontin 300mg 3times a day and increase if necessary, no lyrica (no response), OFF humira due to frequent infections, toleraint sq 1ml weekly injections methotrexate, ssz 500mg 3times a day, 400mg daily plaquenil, prozac and f/u with PCP for adjustment, nightly and prn wrist splints, PT for contractures, eyedrops per ophthalmology, 03/29/16:fell the other day since R leg gave out. Shingles of R buttock and RLE. Better with neurontin 3cap 3times. Reports 07/11 right buttocks, right arm/bicep whole body flare . [place] great when taking xeljanz XR for two weeks, felt normal. But insurance would not cover, requesting enbrel or cimzia. Developed severe UTI and went to ED treated with antibiotics. Then had bad constipation from antibiotics. Later developed R buttocks shingles treated with valtrex/off now. Had eye exam March no plaquenil toxicity but dry eyes/sjogrens and prescribed restasis. Insurance would not cover med. R arm pain, unable to reach up and behind head due to pain. Overall doing ok and happy with care. No fx/trauma/illness/oral sores/rash/hairloss/jaw pain/dysphagia/epistaxis/hemoptys is since last visit. No adverse effects with meds. No other complaints. Patient denies fever, chills, cp, dyspnea, nausea, vomiting, night sweats, scalp tenderness, visual changes, abbott, bowel/bladder changes, weight changes or other complaints. Last visit supportive care, 40mg kenalog IM 09/16/15, f/u with GI for GI issues eval, continue pred morgan then 1-2tab daily thereafter, start xeljanz XR 11mg daily if approved, f/u ortho s/p R TKR, 40mg kenalog IM 08/06/15, restart celebrex when off steroids only if ok with GI, f/u hand ortho for trigger finger injection if needed again, neurontin 300mg 3times a day and increase if necessary, no lyrica (no response), OFF humira due to frequent infections, toleraint sq 1ml weekly injections methotrexate, ssz 500mg 3times a day, 400mg daily plaquenil, prozac and f/u with PCP for adjustment, nightly and prn wrist splints, PT for contractures 01/22/16:reports R shoulder/R elbow/R knee pain for several days. Worse yesterday 06/11. Started prednisone yesterday, pain all 03/11. Moderate AM stiffness. Has not missed methotrexate 1ml weekly, SSZ, plaquenil. No infections since last OV. More nodules on hands. Had eye exam Nov 2015, improved, new glasses, no plaquenil toxicity. Overall doing ok and happy with care. No falls/fx/trauma/illness/oral sores/rash/hairloss/jaw pain/dysphagia/epistaxis/hemoptys is since last visit. No adverse effects with meds. No other complaints. Patient denies fever, chills, cp, dyspnea, nausea, vomiting, night sweats, scalp tenderness, visual changes, abbott, bowel/bladder changes, weight changes or other complaints. Last visit supportive care, 40mg kenalog IM 09/16/15, f/u with GI for GI issues eval, start pred morgan then 1-2tab daily thereafter, f/u ortho s/p R TKR, 40mg kenalog IM 08/06/15, restart celebrex when off steroids only if ok with GI, f/u hand ortho for trigger finger injection if needed again, neurontin 300mg 3times a day and increase if necessary, no lyrica (no response), HOLD humira due to frequent infections, may restart if ok with GI sq 0.8-1ml weekly injections methotrexate, ssz 500mg 3times a day, 400mg daily plaquenil, prozac and f/u with PCP for adjustment, nightly and prn wrist splints, PT for contractures, See notes 12/10/20-01/27/12 for details on prior visits 10/07/11 HPI: here for neck/L shoulder pain. Has numbness and tingling discomfort from neck to L elbow. Has been doing shoulder exercises to see if symptoms would improved. Also has worsening hip pain. RA dx'd 24y/o- R elbow, hands, knees, feet pain/swelling. Saw /. Now hips painful. Decreased to 5tabs/week methotrexate for high lfts since 01/2011 and noticed increased joint pain since. 1990s did ok with plaquenil. BUt by , severe joint pain and dx'd with fibromyalgia. Seeing GI for GI upset with prozac (started nexium). 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 Has neck tightness. Had L thumb nodule injection last rheum visit with good results. Elevated LFTs since 2008. Was on lower methotrexate doses years ago. Patient denies fever, chills, cp, dyspnea, nausea, vomiting, night sweats, scalp tenderness, visual changes, abobtt, bowel/bladder changes, weight changes or other complaints. plaquenil -2002, present methotrexate 2002-present SSZ 2002-present Weekly humira 2002-10/2014, history increased infections, 04/2019-present, worsening breathing issues xeljanz 01/2016 for two weeks with good response, off due to cost, restart when affordable prozac 2002-present, recent GI upset 02/18/11 Rheum note;RF+ CCP+ RA for 25 years and presents today with new sx. Joint symptoms: polyarthralgia involving Has had polyarthralgia primarily involving the MCPs and PIPs of both hands, rt elbow, lt shoulder, knees, and lt ankle with swelling, with morning stiffness of 0. Denies fevers or rash. Medication use:(-) NSAID, (-) prednisone, on MTX x 4 yrs, was on hydroxychloroquine 5-7 yrs ago; TNFa miguel(Humira x 3 yrs), effective in symptoms, without side effects noted. Patient's global assessment 03/11. Functional status: able to perform normal basic ADLs without any limitations. RHEUM. ROS: Joint pain: yes- L knee, L shoulder (6wks ago) Am stiffness: yes 1.5hr Low back pain: yes- since Enthesopathy/Joyce's/heel/plant ar tenderness: b/l cts-by emg; Skin tightness, psoriasis, photosensitivity, purpura: bumps- similar molluscum? Alpecia, patchy: thinning with DM Eye inflammation: glasses SICCA: dry eyes GI problems-diarrhea/bleeding/IBD/Gl uten intolerence/Dysphagia: gerd Organ inv-Serositis: exertional asthma Fatigue: sleeps 7h/night, snores PMR/GCA ROS: negative Other ROS:The remainder of the review of systems is negative. 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 Non-specific reactivity may at times be seen with this test due to some underlying phenomena. Please correlate with HBsAg result and medical history. 11/10/21 note : here with COPD. Dyspnea on exertion and productie cough while symptoms do not include wheezing. Improving. HRCT 11/03/21. Started on relegy last visit and breathing has improved. holtern monitor test was abnormal and will see cardiology. 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 Etiology unclear at this time. Secondary to diastolic dysfunction. HRCT 11/03/21 mild bronchiectasis. Otherwise unremarkable lungs. 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 Alignment is satisfactory. No fracture. Some increased radiolucency at the interface of the distal humerus humerus and proximal ulnar component.. No gross soft tissue swelling. 03/2021 MRI lumbar spine-1. Small amount of residual/recurrent right central extruded disc at L5-S1. Enhancing granulation tissue in the right ventral and lateral epidural space at L5-S1. Mild interval progression of type II discogenic endplate changes at L5-S1. 2. Subtle enhancement and swelling of the right S1 nerve root, which may represent a focal neuritis. 3. Postsurgical changes of right-sided L5-S1 hemilaminectomy and discectomy. No discrete underlying abscess. Anatomic Thoracic/Lumbar Variant: None. L4-5 is considered the level of the iliac crest and assume there are 5 lumbar-type vertebrae. 03/2021 low hgb 11.3;high plt 411, crp 11.7;NL cornelia f cbc, 12/10/20 high glu 455, crp 1.3 (0.7), esr 35 (41);NL rest of cmp, cbc, vitamin D 43.5, vitamin [id number];negative quantiferon tb; [facility] 11/27/20 BMD osteopenia L1/L3/L4 1.102 g/cm2, tscore-More than half of todays over 40 minute [id number] office visit was spent in counselling/coordination of care, zscore2;L fem neck 0.808g/cm2, tscreo-0.4, zscore1;Total L hip 0.946g/cm2, tscore 0, zscore1.1;R fem neck 0.662g/cm2, tscore-1.7, zscore-0.3, Total R hip 0.781g/cm2, tscore-1, zscore0.3;L foreamr 0.505g/cm2, tscore-1.2, zscore0.3; FRAX major osteoporotic fracture risk 11%;hip fracture risk 1.2%; [facility] 11/27/20 lumbar xrays-mild osteopenia. Significant disc narrowing L5-S1 with degenerative vacuum phenomenon. Mild posterior osteophytosis is noted. Facet joint arthrosis at mid to lower lumbar spine. 07/13/20 low potassium 3.5;high esr 41 (34), gluc 156;NL rest of cbc, cmp, crp 0.7 (1.2), vitamin D 32;negative quantiferon tb; outside 04/06/20 negative COVID-19;high gluc 171;NL hgb 13.9, creatinine 0.85 outside 10/2019 low potassium 3.3, calcium 8.1, hgb 11.1;high gluc 206, rest of cbc, cmp; outside 01/2019 high wbc 11.09;low hgb 9.8, potassium 3.3, calcium 7.6;NL rest of bmp 01/14/19 high glucose 364, esr 83 (59), crp 5.6 (4.9), plts 408 (362);low sodium 134;NL rest of cbc, cmp, vitamin D 50.9; 07/16/18 high glucose 482, esr 59 (79), crp 4.9 (4.6);low sodium 135;NL rest of cmp, cbc, vitamin D 51.1; 07/16/18 both hand xrays-Marginal erosions have appeared since 2008 in multiple metacarpal heads bilaterally with some joint space narrowing in the second and third MCP joint on the right and the third MCP joint on the left. There has been also progressive loss of the joint spaces in both wrists with multiple erosions and/or cysts . Most of the erosions have sclerotic margins consistent with remote disease. Degenerative changes in some of the DIP joints and the first CMC joint bilaterally. 07/16/18 both elbow xrays-Severe narrowing of the joint spaces in the right elbow again identified with osteophyte formation present and some cyst formation. [facility] 03/28/18 negative quantiferon tb; [facility] 03/20/18 high glucose 559, total protein 8.8, crp 47.4 (normal <8mg/L), esr 67 (NL0-30mm/hr);low sodium 131;normal rest of cmp, creatinine 0.81, calcium 9.3, ast 13, alt 12, wbc 6.5, hgb 12, plts 375, vitamin D 53; 04/18/17 high esr 79 (58), crp 4.6 (3.2), plts 472, glucose 332;NL rest of cbc, vit D 38.9, rest of cmp; 04/18/17 neck xrays-C7 vertebral body is not completely visualized however the disc spaces are maintained throughout cervical spine. C2-C6 vertebral bodies are intact. Mild facet joint space narrowing at C2/C3, C3/C4, C4/C5 and C6/C7. Mild neural foraminal narrowing at C3/C4 bilaterally. 04/18/17 R elbow xrays-Severe narrowing of the radiocapitellar and ulnar trochlear articulation with osteophytes. SEVERE DEGENERATIVE CHANGES OF THE ELBOW JOINTS PROGRESSED SINCE THE PREVIOUS EXAMINATION. 04/18/17 NL shoulder xrays 11/16/16 high glucose 337, crp 3.2 (2.9), esr 58 (61);low sodium 135;NL rest of cmp, cbc, vit D 48.4;negative quantiferon tb; 01/22/16 high glucose 196, plts 429, esr 61 (43), crp 2.9 (2.5);low hgb 11.3;NL rest of cbc, cmp, vit D 51; 01/22/16 NL shoulder xrays 01/22/16 R elbow xrays-There is severe radiocapitellar and ulnotrochlear joint space narrowing, with radiocapitellar and ulnotrochlear osteophytes. There is a trochlear subchondral cyst measuring 1 cm in diameter. A joint effusion is present [facility] 09/21/15 GI study- unremarkable air contrast upper GI exam [facility] 09/21/15 abdominal ultasound/echo= degree of hepatic steatosis. 09/16/15 high glucose 157, plts 413, esr 43 (70), crp 2.5 (2.8);NL rest of cbc, cmp, vit D 64.9; 11/12/14 high esr 70 (41), crp 2.8 (2.7);NL cmp, cbc, vit D 43.5, b12-799;negative quantiferon TB, hepatitis panel except +hep B surface AB Comments:These results are consistent with previous exposure and/or immunity tothe hepatitis B virus antigen. Infectious disease Dr.James Ramirez 09/18/14 note: septic arthritis of knee;completed IV therapy and feels well. High esr elevated likely related to her underlying connective tissue d/o. Her crp 3. I think she is fine to undergo total joint replacement surgery, planned in 4.5 weeks. Stop her IV antibiotic therapy and leave her off of any antibiotic therapy and observe. She is on plaquenil for her connective tissue d/o which I think is reasonable. She asks about escalating the treatment and I am not certain whether that is best yet until after her surgery. 06/30/14 high glucose 161, plts 427, esr 41 (44), crp 2.7 (0.8);NL rest of cbc, cmp, vit D 36.4; 06/29/13 low vit D 30.5;high glucose 210, alt 56, esr 44;NL rest of cmp, cbc; 12/10/12 high glucose 335, mildly high NL alt 49;NL rest of cmp, cbc, esr 8, crp 0.5; 08/22/12 high esr 40, alt 46, ast 53, glucose;NL rest of cmp, cbc, crp 0.8; 04/18/12 high wbc 11.1;NL hgb, plts, cmp, calcium 9.9, creat 0.56, ck 51, aldolase 4.9, vit D 32.9, [id number]; 01/21/12 NL cbc, creat 0.54, crp 0.4, esr 7;high TP 8.7, ast 74, alt 91, glucose 261; 10/12/2011 BMD NL;10/07/11 high ast 43, alt 62, esr 17;NL crp 0.3, cbc, creat 0.5;NL shoulder xrays; 10/07/11 Hip xrays-DJD/osteoarthritis 10/07/11 Cervical xrays-IMPRESSION: 1. FACET DEGENERATIVE CHANGES ON THE LEFT AT C3-4 WITH MILD TO MODERATE NARROWING OF THE NEURAL FORAMEN DESCRIBED 2. MILD ANTERIOR SUBLUXATION OF C1 WITH FLEXION PROBABLY DUE TO LIGAMENTOUS LAXITY. 05/25/11 NL cbc, creat 0.56, esr 10;high ast 57, alt 59;02/18/11 NL cbc, creat 0.51, esr 11;high ast 42, alt 52;11/12/10 NL creat 0.51, cbc, crp 0.2;high ast 70, alt 60; 11/09/09 NL cbc, creat 0.77;high ast 50, alt 69; PHYSICAL EXAM reviewed vitals from last visit BP 155/83 Pulse 99 Wt 149 lb 1.6 oz (67.6kg) SpO2 97% BP 129/83 Pulse 81 Wt 68.9 kg (152 lb) BMI 26.08 kg/m Gen; A&Ox3, NAD, very pleasant, better spirits, good mood, less uncomfortable, speaks in full sentences without distress GAIT: ambulates better/less favoring RLE due to R foot/buttock/RLE pain, without assistance or assistive devices HEENT: NC/AT, +mmm, no lad/jvd/thyromegaly/sores/exudate s/thrush, EOMI/PERRL, no conjunctival injection/scleral icterus, thin hair, no alopecia, normal/nontender temporal arteries, normal nares, Yes glasses, fair dentition, hoarse voice, coughing during exam CV; +s1, s2, RRR, no murmurs Lungs: CTAB ABD: +bs, soft, ntnd, no hsm Ext: No pedal edema, no cyanosis/clubbing Hands: stable nodule on L thumb, daylin nodes, R 4th finger bent and palmar nodule tender to palpation, decreased mild R>L 2nd/3rd MCP swelling, no warmth/erythema, decreased range of motion due to pain Wrists: R wrist swelling, R>L tender to palpation, decreased range of motion due to pain, +tinel's and negative carly tests Elbows-s/p R/L ulnar entrapment release, decreased nodule distal to L elbow, L elbow improved but not complete extension without pain in L hand, L tender, L decreased range of motion due to pain, no swelling/warmth/erythema Shoulders-R>L mild tenderness to palpation with full range of motion (from) , no warmth/erythema Knees: s/p R TKR, R decreased tenderness to palpation, no swelling, full range of motion, no crepitus, no warmth/erythema Ankles/feet: top and bottoms of R>L feet mildly tender to palpation, no synovitis, no swelling/warmth/erythema, from Hips: thighs diffusely sore, fair range of motion, R>L tender to palpation with from Back: left side of neck, s/p lumbar surgery, R lumbar tender to palpation, from CN-II-XII grossly intact, normal pulses/reflexes Strength 5/5, tone normal Skin-no rash;healed shingles on R buttocks and R back of leg Nails-no pitting Trigger points 08/19 IMPRESSION/DIAGNOSIS:11/23/23 M05.79 Rheumatoid arthritis of multiple sites without organ or system involvement with positive rheumatoid factor (HCC) (primary encounter diagnosis) Z79.899 Long-term use of high-risk medication M25.60 Joint stiffness of multiple sites H04.123 Dry eye syndrome of both eyes M15.3 Secondary osteoarthritis of multiple sites M85.89 Osteopenia of multiple sites M79.641, M79.642 Bilateral hand pain M25.521, M25.522 Bilateral elbow joint pain M25.551, M25.552 Hip pain, bilateral M54.41, G89.29 Chronic bilateral low back pain with right-sided sciatica M65.9 Synovitis of hand M25.531, M25.532 Bilateral wrist pain M25.511, G89.29, M25.512 Chronic pain of both shoulders M54.2 Neck pain M79.7 Fibromyalgia R26.9 Abnormality of gait R70.0 Elevated sed rate R79.82 Elevated C-reactive protein (CRP) E55.9 Vitamin D deficiency 63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[employer] (father-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, sister-lupus) with PMH:DM, s/p partial thyroidectomy, thyroid polyps, htn, hyperlipidemia, exertional asthma, gerd, FRANCOIS 1991 fibroids, fell downstairs R wrist fx 2001, s/p R knee scope 1999 presents with dx'd RA since 24y/o with joint pain from R elbow, hands, knees, feet pain/swelling, DJD/osteophytes on knee xrays, erosions on hand xrays, hx RF+ CCP+, elevated lfts, RA nodules, now with neck/L shoulder/hip pain in the last few weeks, extended AM stiffness, has findings consistent with seropositive erosive RA, cervical/shoulder pain, fibromyalgia, s/p R TKR 10/21/14 after septic arthritis 09/2014, here flare of RA of all joints R>L side after UTI/constipation from antibiotics, then had R buttocks/RLE shingles 2015, history of multiple UTIs/hospital admissions for lung infection & dehydration 2015, diagnosed with dry eye syndrome at eye exam, here with myalgias, polyarthritis, decreased joint swelling, but polyarthralgias, off xeljanz due to cost. Last dose of methotrexate Monday. R elbow injection from ortho with 1day relief. Future surgery of R elbow and R wrist fusion may require her to change future occupation due to limited heavy lifting,feeling 90% better with humira and rheum meds. One asthma flare since last office visit. methotrextae once every week. Tolerating daily arava/ssz. 5lb weight restriction with arm after surgery for life. in 10/13/19 Dr Almanzar is admitting pt to hospital in [place] to debride wound she has on her left elbow. Was in ED 10/12/19 for nonhealing LUE wound/now healed. Developed on LUE hematoma. H2ad EMG hematoma pressing on nerve. Still numbness and tingling L 4th/5th fingers, R hand/elbow better with elbow//ulnar entrapment release surgery 10/2019. But L 4th/5th fingerpain since 3elbow/ulnar entrapment release surgeries 09/2019 last on 04/2020. Saw neurology, severe L hand nerve impairment. Better with voltaren gel. Found to have severe L5-S1 pain with nerve root impingement.Saw pain clinic and on lidocaine 5%. s/p L5/S1 surgery 01/2021 with less pain in RLE. But had R foot numbness. Had infection from incision. Treated with antibiotics x 2weeks. trouble breathing, passed out in shower, went to hospital 05/11/21, had cardiac work up, treated with IV steroids which improved her breathing. found a lump on upper back, xeljanz did not cause lung issues vs humira/worsens breathing/asthma. More joint pain if stretching humira to every 3weeks. Still taking gabapentin. smaller Nodule on L elbow. Numbness and tingling of 4th/5th fingers after L elbow surgery. Had BMD in [facility]. saw pulm 11/2021, no rheumatoid arthritis associated ILD. Had COVID19 infection in 05/2022 treated with steroids and inhalers. 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 3rd grandchild (boy) 11/2022. [facility] 11/27/20 BMD osteopenia.Numbness of left 4th/5th and right foot, chronic. Saw pain clinic. Seeing endo, hgba1c improved from 12 to 9, goal for <7. Eating healthier diet, tried keto diet. Not a fan of the bread. Had eye exam, right membrane surgery if approve/dfrom high glucose. COVID vaccine 07/01/21, 07/22/21. due for labs. taking methotrexate 10tabs weekly when liquid not available, sulfasalazine 1tab 3times a day, arava 20mg daily, rinvoq,neurontin, vitamin D 5000 International Units daily with food. Last month recent oral steroids due to pain flare with good response. R eye changes possibly from diabetes on last eye exam, already had both laser treatment. Due for next eye exam 01/2024. Same dryness. Frequent falls, last one 2weeks, coming down the stairs, unsure why. After back surgery RLE drags and R great toe numb Completed OT after elbow surgery 70% improvement from rinvoq. Notices dry skin. limited exercise due to frequent falls. Mild 2nd MCP swelling. Chronic current pain in both hands, R>L hips, L>R neck, both knees. Reports pain /10. Has minimal AM stiffness. Feels safe at home. Has enough food, supplies and medications. Overall mildly uncomfortable but happy with rheum care. 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/due for back injections, see neurosurgeon L5-S1 surgery, improved with prednisone/take for flares morgan, follow up with UE/hand ortho/postponing R shoulder/wrist surgeries, 40mg kenalog IM 09/16/15, f/u with GI for GI issues eval, much improved with rinvoq daily/received by [employer], continue sq 1ml once every other week injections methotrexate (HOLD 1-2weeks after vaccines), ssz 500mg 3times a day, daily arava, improved with xeljanz OFF due to cost, see ortho s/p R TKR, f/u hand ortho for arm/elbow/wrist care and for trigger finger injection if needed again, neurontin 300mg 3times a day and increase if necessary, no lyrica (no response), improved with humira but worsens asthma, OFF plaquenil, prozac and f/u with PCP for adjustment, nightly and prn wrist splints, PT exercises for contractures, eyedrops per ophthalmology, answered all questions and concerns-patient voiced understanding. RECOMMENDATION/PLAN: Office Visit on 11/23/23 CONSULT TO PHYSICAL THERAPY Reviewed labs/tests with patient (faxed clinic note to PCP per patient request) Reviewed Provided printed info on RA, fibromyalgia, plaquenil, methotrexate, ssz, biologics 04/18/12 =40mg IM kenalog;04/18/12, 10/07/11=40mg kenalog L shoulder 07/26/21, 07/16/18, 03/29/16, 01/22/16 precert xeljanz XR 11/23/23 check cmp, cbc, esr, crp, vitamin D every 3months, Modified11/23/23 BENJAMIN 0, pain 40%;02/20/23 BENJAMIN 0, pain 50%;08/11/22 BENJAMIN 1, pain 100%;07/26/21 BENJAMIN 0,pain 80%;12/10/20 BENJAMIN 0.5, pain 90-100%;07/13/20 BENJAMIN 0, pain 30-50%;01/16/20 BENJAMIN 0, pain 30%;07/17/19 BENJAMIN 0, pain 10%;01/14/19 BENJAMIN 0, pain 80%;07/16/18 BENJAMIN 0, pain 80%;04/18/17 BENJAMIN 0, pain 90%;12/01/16 BENJAMIN 0, pain 0%;03/29/16 BENJAMIN 1, pain 100%;01/22/16 BENJAMIN 0.75, pain 60%;09/16/15 BENJAMIN 0.5, pain 80%;08/06/15 BENJAMIN 1, pain 100%;11/12/14 BENJAMIN 1, pain 50%;06/30/14 BENJAMIN 1.75, pain 90%;07/03/13 BENJAMIN 1.75, pain 80%;12/10/12 BENJAMIN 1, pain 80%;08/22/12 BENJAMIN 0.5, pain 50%;04/18/12 BENJAMIN 1.5, pain 70%;01/27/12 BENJAMIN 1.5, pain 70%;10/07/11 BENJAMIN 1.5, pain 60%; May apply over the counter arthritis cream (biofreeze, icy hot, asper cream, tiger balm, capsacin, etc.) to painful joints up to four times a day. Avoid contact with eyes. May take ES acetaminophen 500mg every 4-6hours for joint pain. Do not exceed 2000mg /day. Increase calcium intake Increase potassium intake No response lyrica OFF Hydroxychloroquine/Plaquenil/humi ra/xeljanz Methotrexate 10tabs once a week or 1ml sq injection food every other a week (HOLD 1-2weeks after vaccines) Do not drink alcohol while taking methotrexate Have bloodwork every 8-12weeks for monitoring while taking Methotrexate Please take folic acid 1mg tab:Take 1tab by mouth daily SSZ 500mg tab 3times a day Rinvoq daily by mouth arava/leflunamide daily with food hold methotrexate/rinvoq/arava if on antibiotics or if you have any signs/symptoms of infection. wear wrist splints at night and as needed for carpal tunnel syndrome may take prednisone for flares No NSAIDs (ex. motrin, etc.)on pred. eyedrops as instructed gabapentin/neurontin 300mg 3tab 3times a day see hand ortho for trigger finger injection/release/hand/wrist/elbo w pain nonfasting bloodwork as scheduled Bone Health Recommendations: -Bone Density is recommended after menopause and after age 55-60, sooner if patient has risk factors, sooner if on systemic steroid use of 3 months or more. -Vitamin D supplementation recommended, optimal dose is the dose necessary to achieve Vitamin D 25-OH blood level in range of 40-50 ng/mL. -Recommended daily dose of calcium: 1200mg total a day in divided doses. Calcium from dietary sources, if not sufficient, or if with h/o calcium nephrolithiasis would recommend Calcium Citrate supplement, as it is recommended to avoid caclium carbonate products, which as main dietary calcium source. -Regular weight-bearing and muscle-strengthening exercise -Avoidance of tobacco smoking, excessive alcohol intake and excessive caffeine intake. -Fall and fracture precautions Discussed medication dosage, usage, goals of therapy, and side effects. Stressed the importance of following up with PCP and specialists for his/her chronic diseases, health, CV, and cancer screening and continued care. Will follow disease activity/progression and adjust therapeutic regimen to disease activity and severity. Discussed findings, impression and plan with patient. Patient understands above plan; questions asked and answered. Patient agrees to plan as noted above. Time spent with patient in addition to Counseling and Coordination of Care,spent more than 50% of the [id number] time in counseling, explanation of diagnosis, and planning of further management, I spent a total of 30 minutes on the date of the service which included preparing to see the patient, [id number] patient care, completing clinical documentation, obtaining and/or reviewing separately obtained history, performing a medically appropriate examination, counseling and educating the patient/family/caregiver, ordering medications, tests, or procedures, communicating with other HCPs (not separately reported), independently interpreting results (not separately reported), communicating results to the patient/family/caregiver and care coordination (not separately reported) F/U in 4-6months, earlier if needed Recommendations: -see above I will relay my findings and recommendations to the physician requesting the consult by letter/electronic shared medical records. I had the pleasure of seeing your patient, for RA, joint pain. Please feel free to contact my office if you need additional information or have further questions or concerns. Thank you for allowing me to participate in the care of your patient. Pepe Carter MD cc Dr.Dwight Oliver Jc; (ortho); (ID); (ortho);Dr.Douglas Schafer documented in this encounter [facility] 11-22-2023 Instructions Pepe Carter MD - 11/22/2023 7:49 PM EST May apply over the counter arthritis cream (biofreeze, icy hot, asper cream, tiger balm, capsacin, etc.) to painful joints up to four times a day. Avoid contact with eyes. May take ES acetaminophen 500mg every 4-6hours for joint pain. Do not exceed 2000mg /day. Increase calcium intake Increase potassium intake No response lyrica OFF Hydroxychloroquine/Plaquenil/humi ra/xeljanz Methotrexate 10tabs once a week or 1ml sq injection food every other a week (HOLD 1-2weeks after vaccines) Do not drink alcohol while taking methotrexate Have bloodwork every 8-12weeks for monitoring while taking Methotrexate Please take folic acid 1mg tab:Take 1tab by mouth daily SSZ 500mg tab 3times a day Rinvoq daily by mouth arava/leflunamide daily with food hold methotrexate/rinvoq/arava if on antibiotics or if you have any signs/symptoms of infection. wear wrist splints at night and as needed for carpal tunnel syndrome may take prednisone for flares No NSAIDs (ex. motrin, etc.)on pred. eyedrops as instructed gabapentin/neurontin 300mg 3tab 3times a day see hand ortho for trigger finger injection/release/hand/wrist/elbo w pain nonfasting bloodwork as scheduled Thank you. Component Latest Ref Rng & Units 05/24/2023 Protein, Total 6.3 - 8.0 g/dL 8.2 (H) Albumin 3.9 - 4.9 g/dL 4.4 Calcium 8.5 - 10.2 mg/dL 9.0 Bilirubin, Total 0.2 - 1.3 mg/dL 0.5 Alkaline Phosphatase 34 - 123 U/L 84 AST 13 - 35 U/L 23 ALT 7 - 38 U/L 27 Glucose 74 - 99 mg/dL 106 (H) BUN 7 - 21 mg/dL 13 Creatinine 0.58 - 0.96 mg/dL 0.65 Sodium 136 - 144 mmol/L 140 Potassium 3.7 - 5.1 mmol/L 3.4 (L) Chloride 97 - 105 mmol/L 102 CO2 22 - 30 mmol/L 28 Anion Gap 9 - 18 mmol/L 10 eGFR >=60 mL/min/1.73m 99 WBC 3.70 - 11.00 k/uL 7.18 RBC 3.90 - 5.20 m/uL 4.47 Hemoglobin 11.5 - 15.5 g/dL 13.8 Hematocrit 36.0 - 46.0 % 40.3 MCV 80.0 - 100.0 fL 90.2 MCH 26.0 - 34.0 pg 30.9 MCHC 30.5 - 36.0 g/dL 34.2 RDW-CV 11.5 - 15.0 % 13.3 Platelet Count 150 - 400 k/uL 249 MPV 9.0 - 12.7 fL 9.5 Absolute nRBC <0.01 k/uL <0.01 TB Nil <=8.00 IU/mL 0.07 TB1 Ag minus Nil <0.35 IU/mL 0.03 TB2 Ag minus Nil <0.35 IU/mL 0.05 TB Result Negative Mitogen minus Nil >=0.50 IU/mL >9.93 TB Interpretation Infection with M. tuberculosis complex is unlikely. If latent tuberculosis infection is highly suspected, a negative result does not rule out the infection. Specimens from immunocompromised patients and those <5 years of age may show false negative results. In case of a contact investigation, please repeat 8-12 weeks after a known exposure. WSR 0 - 20 mm/hr 35 (H) CRP <0.9 mg/dL 0.9 (H) Vitamin D 25 Hydroxy 31.0 - 80.0 ng/mL 41.5 Vitamin B12 232 - 1,245 pg/mL 1,074 Moisturizing treatments Stimulating saliva -- Simply sucking on sugarless candy or dried fruit slices (eg, peaches or nectarines) can stimulate the flow of saliva in many patients. [place] flavored sugarless tablets and sugar-free chewing gum may also be helpful. In some patients, medications such as pilocarpine or cevimeline are given to increase saliva production. Replacing secretions in the mouth -- Sipping on water throughout the day is an easy and effective treatment of dry mouth for many patients. The water does not have to be swallowed. It can be rinsed around the mouth and then spit out. If this is not effective, an artificial saliva product (spray or lozenge) may be helpful. If painful gums are a problem, a gel that relieves dry mouth (such as Oral Balance) can be helpful. Avoiding cavities -- Patients with SS are at increased risk for dental cavities. SS patients should perform careful dental hygiene, ideally brushing and dental flossing after eating meals and snacks. Patients should visit their dentist at least every six months. Toothpaste designed specifically for patients with dry mouth is available (eg, Biotene , Orajel ). These lack the detergents that are present in many types of toothpaste, which can irritate a dry mouth. Toothbrushes with special features that help clean between the teeth and electric toothbrushes may also help to keep the teeth clean. Patients should use a toothpaste with fluoride or a special fluoride rinse or varnish. We recommend a fluoride treatment with a dentist or dental hygienist after each cleaning. Since the dentist may not stock this treatment, patients should contact the dental office prior to the appointment. Dry eye -- Use of a humidifier or moist washcloth over the eyes may provide some relief for dry eyes. Most patients also use an artificial tear drop. Many different solutions are available; a clinician can recommend an appropriate choice based on an individual's pattern of dryness and fluid production in the eye. Some patients are sensitive to the preservatives found in artificial tear preparations. If burning or itching occurs, a brand with a non-irritating preservative may be tried. Alternately, a preservative-free variety can be used. Eye drops without preservative come in small, single-dose containers that may be hard for some people with joint and/or vision problems. A prescription eye drop containing cyclosporine is also available (Restasis ). Some patients use an eye ointment at night. It is important to use only about 1/8 (3 mm) of the ointment because overuse can block the ducts and lead to a condition called blepharitis (see Blepharitis (eyelid inflammation) below). Preserving natural tears -- Various measures can be used to preserve a patient's own tears. Rueda can be fitted on the sides of glasses, helping to protect the eye from air and wind, reducing evaporation of tears. Goggles or wrap-around sunglasses serve a similar function. Another approach is a simple surgical procedure called punctal occlusion. In this procedure, an biometrics experimentalist inserts small plugs into the tear ducts in the corner of the lower eyelid, nearest the nose, where the tears normally collect and drain into the nasal passages. By blocking this duct, the patient's tears stay on the eye longer. There are several types of plugs, one of which does not touch the surface of the eyeball; these plugs are generally preferred. Treating other problems Fungal infections in the mouth -- Prescription medications are available to treat painful mouth lesions due to oral candidiasis (yeast infection); these include clotrimazole, nystatin elixir, miconazole gel, or amphotericin B lozenges. Patients who wear dentures and develop an infection should disinfect the dentures overnight while being treated. The soak should include nystatin powder or 0.2 percent chlorhexidine solution to prevent reinfection. Dry nose -- It is important to treat nasal dryness or stuffiness because blocked nasal passages can increase mouth breathing and worsen dry mouth. Saline nasal sprays are available in most drugstores. Other cause of nasal blockage, including allergy or sinus infection, should be treated promptly. (See Patient information: Rhinitis). Blepharitis (eyelid inflammation) -- Blepharitis causes symptoms that are similar to those of dry eye (swollen lids and redness of the inside of the lids). Gently washing the skin of the eyelids can relieve blepharitis. This can be done with a warm wet washcloth and a small amount of no tears shampoo. With the eyes closed, the excess debris should be rubbed from the inner eye to the outer eye area. Dryness in other areas -- Patients with SS may have dryness in other areas, including the lips, skin, and the vagina. Dry lips may require petroleum jelly or lip salves. Dry skin usually improves with frequent and liberal use of a moisturizing cream or ointment. Some women with SS have difficulty with vaginal dryness, especially after menopause. There are several products specifically designed for vaginal dryness, including vaginal moisturizers, estrogen cream, vitamin E oil, and lubricants for use with sexual intercourse; a healthcare provider should be consulted for specific recommendations. FIBROMYALGIA PATIENT INSTRUCTIONS Fibromyalgia syndrome or FMS is a painful, uncomfortable, unpleasant, but otherwise benign disease. This means that it is not life-threatening. The pain of fibromyalgia usually consists of diffuse aching or burning in both the upper and lower body on both the right and left sides. It can change location and there can be sensations of pins and needles or dysesthesia in the arms and legs as well. There are a host of symptoms often associated with fibromyalgia including stiffness of the muscles, increased headaches or facial pain, sleep disturbances, gastrointestinal complaints, such as constipation and/or diarrhea and/or cramping known as irritable bowel syndrome or IBS, frequent urinary bladder symptoms including increased frequency or increased urgency among others. Numerous other signs and symptoms have been described including temperature sensitivity, nagging skin complaints, recurrent chest pains, a feeling of imbalance or dysequilibrium and a sensation of restless legs . Importantly, about three-quarters of patients with fibromyalgia also have signs and symptoms consistent with chronic fatigue syndrome or CFS. This is a sense of excessive fatigability with non-restorative sleep that can often be brought on by minor exertion. Seventy-five percent of other patients experience either a past history or a current bout of depression, anxiety or panic. Collectively this is a complex disorder, but one afflicted with fibromyalgia and/or chronic fatigue syndrome must remember that these symptoms are real, they are not psychological and they are in no way the patient s fault. There is no simple cure for chronic fatigue syndrome or fibromyalgia, but the encouraging news is that the symptoms are, for the most part, reversible. The sobering reality is that there is no quick fix. The treatment program for fibromyalgia consists of multiple modalities. Those treatments that have been shown to be most effective include graded low intensity exercise such as a walking program or an aquatics program and cognitive behavioral therapy which helps people adapt to their symptoms. If there is any history of depression, anxiety or panic, formal assessment and treatment of these by a trained mental health professional is also vital. Frequently, anti-depressants are also used in patients without any history of depression to take advantage of their ability to modify pain, fatigue and mental confusion. Medications frequently used include those to help correct sleep, such as low dose antidepressants or non-habit forming sedatives and mild analgesics, such as Tylenol, nonsteroidal anti-inflammatory drugs, such as ibuprofen or more potent analgesics, such as tramadol (Ultracet). Therapy must be highly individualized. In virtually every [facility] area, the [employer] is engaged in a fibromyalgia self-help program and can also direct patients with various forms of rheumatism to active aquatic classes. We encourage contacting the [employer] for proactive involvement. Most signs and symptoms of fibromyalgia can be managed by primary care physicians under the guidance of a specialist. Further information can be obtained from the [employer] Website at www.fmpartnership.org. documented in this encounter [facility] 07-12-2023 Miscellaneous Notes Form faxed with confirmation. Form completed. Please process accordingly. Scan copy into [employer]. Notify patient when above completed. Recall in script when approved if needed. Thank you. Received refill request from [employer]. Form placed on your desk for signature. documented in this encounter [facility] 05-29-2023 Miscellaneous Notes patient has viewed the [employer] message per [employer]. Please Call patient if [employer] note not read to review results/released to My Chart if tests completed at F: Mildly low normal potassium- increase potassium intake, care per primary care provider/endocrinology. One borderline inflammatory tests- will monitor. Rest of labs much stable. Continue same vitamin D intake with food. Recheck nonfasting labs in 3months.The orders have been placed. Happy to further review and discuss at follow up visit. Continue rest of treatment plan per instructions at last office visit. Thank you. 05/24/23 low potassium 3.4;high esr 35, crp 0.9;normal rest of cbc, cmp, vitamin D 41.5, vitamin [id number]; --- 02/16/23 high glucose 260(328), esr 27 (60);normal rest of cmp, cbc, crp<0.3, (3), vitamin D 42.3; documented in this encounter [facility] 02-20-2023 Note HNO ID: [id number] Author: Pepe Carter MD Service: ? Author Type: Physician Type: Progress Notes Filed: 02/20/2023 10:41 AM Note Text: Face to face Follow up for rheumatoid arthritis/ degenerative joint disease/joint pain/ osteopenia Today's visit 02/20/23:due for bmd after 11/27/22. [facility] 11/27/20 BMD osteopenia. taking sulfasalazine tab 3times a day, arava 20mg aily, methotrexate 1ml sq injection weekly, daily folic acid (not covered by script), rinvoq, neurontin 300mg 10caps per day, lidoderm, vitamin D 5000 International Units daily with food. Only had recent oral steroids with last infection 09/2022. 100% improvement from rinvoq. Restarted walking exercise almost 2miles. decreased swelling hands/right elbow. Chronic current pain in hands, all over, shoulders, back, R hip/restricted. Reports pain 02/08. Has minimal AM stiffness. Numbness of left 4th/5th and right foot, chronic. Saw pain clinic. Seeing endo, hgba1c improved from 12 to 9, goal for <7. Eating healthier diet, tried keto diet. Not a fan of the bread. Had eye exam, right membrane surgery if approve/from high glucose/awaiting insurance appeal/initially denied. COVID vaccine 07/01/21, 07/22/21. Feels safe at home. Has enough food, supplies and medications. Overall mildly uncomfortable but happy with rheum care. No falls/fx/trauma/illness/oral sores/rash/hairloss/jaw pain/dysphagia/epistaxis/hemoptys is since last visit. No adverse effects with meds. No other complaints. Patient denies fever, chills, cp, dyspnea, nausea, vomiting, night sweats, scalp tenderness, visual changes, abbott, bowel/bladder changes, weight changes or other complaints. 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/due for back injections, see neurosurgeon/due for possible L5-S1 surgery if BMD stable, improved with prednisone/take for flares morgan, follow up with UE/hand ortho/postponing R shoulder/wrist surgeries, 40mg kenalog IM 09/16/15, f/u with GI for GI issues eval, improved with xeljanz OFF due to cost, see ortho s/p R TKR, f/u hand ortho for arm/elbow/wrist care and for trigger finger injection if needed again, neurontin 300mg 3times a day and increase if necessary, no lyrica (no response), improved with humira but worsens asthma, rinvoq daily/restart when received by [employer], continue sq 1ml once every other week injections methotrexate (HOLD 1-2weeks after vaccines), ssz 500mg 3times a day, daily arava, OFF plaquenil, prozac and f/u with PCP for adjustment, nightly and prn wrist splints, PT exercises for contractures, eyedrops per ophthalmology, 08/11/22:saw pulm 11/2021, no rheumatoid arthritis associated ILD. Had COVID19 infection in 05/2022 treated with steroids and inhalers. Out of rinvoq for 6months. Taking neurontin, methotrexate 1ml sq weekly, sulfasalazine 3tabs daily, arava 20mg daily, vitamin D 5000 International Units daily with food. 50-70% improvement from rinvoq. Chronic current pain in R knees, RLE, R great toe/foot/curling (better when on rinvoq or steroids), hands, L shoulder, LUE, neck, hips, back, spasms. Reports pain 07/11. Several hours minimal AM stiffness. COVID vaccine [employer] 07/01/21, 07/22/21. 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 3rd grandchild (boy) due 11/2022. Feels safe at home. Has enough food, supplies and medications. Overall uncomfortable but happy with rheum care. No falls/fx/trauma/illness/oral sores/rash/hairloss/jaw pain/dysphagia/epistaxis/hemoptys is since last visit. No adverse effects with meds. No other complaints. Patient denies fever, chills, cp, dyspnea, nausea, vomiting, night sweats, scalp tenderness, visual changes, abbott, bowel/bladder changes, weight changes or other complaints. 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 clinic for assisted pain recommendations/due for back injections, see neurosurgeon/due for possible L5-S1 surgery if BMD stable, improved with prednisone/take for flares morgan, follow up with UE/hand ortho/postponing R shoulder/wrist surgeries, 40mg kenalog IM 09/16/15, f/u with GI for GI issues eval, improved with xeljanz OFF due to cost/restart when affordable, see ortho s/p R TKR, f/u hand ortho for arm/elbow/wrist care and for trigger finger injection if needed again, neurontin 300mg 3times a day and increase if necessary, no lyrica (no response), improved with humira but worsens asthma/patient requests to switch back to xeljanz if approved, continue sq 1ml once every other week injections methotrexate (HOLD 1-2weeks after vaccines), ssz 500mg 3times a day, daily arava, OFF plaquenil, prozac and f/u with PCP for adjustment, nightly and prn wrist splints, PT exercises for contractures, eyedrops per ophthalmology 07/26/21:s/p L5/S1 surgery 01/2021 with less pain in RLE. But had R foot numbness. Had infection from incision. Treated with antibiotics x 2weeks. trouble breathing, passed out in shower, went to hospital 05/11/21, had cardiac work up, treated (more content not included)... [facility] 08-11-2022 History of Present illness Narrative Face to face Follow up for rheumatoid arthritis/ degenerative joint disease/joint pain Today's visit 08/11/22:saw pulm 11/2021, no rheumatoid arthritis associated ILD. Had COVID19 infection in 05/2022 treated with steroids and inhalers. Out of rinvoq for 6months. Taking neurontin, methotrexate 1ml sq weekly, sulfasalazine 3tabs daily, arava 20mg daily, vitamin D 5000 International Units daily with food. 50-70% improvement from rinvoq. Chronic current pain in R knees, RLE, R great toe/foot/curling (better when on rinvoq or steroids), hands, L shoulder, LUE, neck, hips, back, spasms. Reports pain 07/11. Several hours minimal AM stiffness. COVID vaccine [employer] 07/01/21, 07/22/21. 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 3rd grandchild (boy) due 11/2022. Feels safe at home. Has enough food, supplies and medications. Overall uncomfortable but happy with rheum care. No falls/fx/trauma/illness/oral sores/rash/hairloss/jaw pain/dysphagia/epistaxis/hemoptys is since last visit. No adverse effects with meds. No other complaints. Patient denies fever, chills, cp, dyspnea, nausea, vomiting, night sweats, scalp tenderness, visual changes, abbott, bowel/bladder changes, weight changes or other complaints. 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/due for back injections, see neurosurgeon/due for possible L5-S1 surgery if BMD stable, improved with prednisone/take for flares morgan, follow up with UE/hand ortho/postponing R shoulder/wrist surgeries, 40mg kenalog IM 09/16/15, f/u with GI for GI issues eval, improved with xeljanz OFF due to cost/restart when affordable, see ortho s/p R TKR, f/u hand ortho for arm/elbow/wrist care and for trigger finger injection if needed again, neurontin 300mg 3times a day and increase if necessary, no lyrica (no response), improved with humira but worsens asthma/patient requests to switch back to xeljanz if approved, continue sq 1ml once every other week injections methotrexate (HOLD 1-2weeks after vaccines), ssz 500mg 3times a day, daily arava, OFF plaquenil, prozac and f/u with PCP for adjustment, nightly and prn wrist splints, PT exercises for contractures, eyedrops per ophthalmology 07/26/21:s/p L5/S1 surgery 01/2021 with less pain in RLE. But had R foot numbness. Had infection from incision. Treated with antibiotics x 2weeks. trouble breathing, passed out in shower, went to hospital 05/11/21, had cardiac work up, treated with IV steroids which improved her breathing. found a lump on upper back, due to see surgery. Had [employer] 07/01/21, 07/22/21. wants to return to xeljanz since it did not cause lung issues vs humira/worsens breathing/asthma. More joint pain if stretching humira to every 3weeks. Still taking gabapentin. Reports pain 05/11. Moderate AM stiffness several hours. Nodule on L elbow. Numbness and tingling of 4th/5th fingers after L elbow surgery. Feels safe at home. Has enough food, supplies and medications. Overall mildly uncomfortable but happy with rheum care. No falls/fx/trauma/illness/oral sores/rash/hairloss/jaw pain/dysphagia/epistaxis/hemoptys is since last visit. No adverse effects with meds. No other complaints. Patient denies fever, chills, cp, dyspnea, nausea, vomiting, night sweats, scalp tenderness, visual changes, abbott, bowel/bladder changes, weight changes or other complaints. 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 clinic for assisted pain recommendations/due for back injections, see neurosurgeon/due for possible L5-S1 surgery if BMD stable, start prednisone morgan, follow up with UE/hand ortho/postponing R shoulder/wrist surgeries, 40mg kenalog IM 09/16/15, f/u with GI for GI issues eval, improved with xeljanz OFF due to cost/switch when affordable, see ortho s/p R TKR, f/u hand ortho for arm/elbow/wrist care and for trigger finger injection if needed again, neurontin 300mg 3times a day and increase if necessary, no lyrica (no response), improved with humira but worsens asthma/patient requests to increase 1-2weeks as tolerated, continue sq 1ml once every other week injections methotrexate (HOLD 1-2weeks after vaccines), ssz 500mg 3times a day, daily arava, OFF plaquenil, prozac and f/u with PCP for adjustment, nightly and prn wrist splints, PT exercises for contractures, eyedrops per ophthalmology 12/10/20:still on humira, methotrexate, gabapentin 9tabs once a week. worsening R buttock pain down RLE x 4months. Found to have severe L5-S1 pain with nerve root impingement. Due to have back injection to burn the nerve next week. Due to see neurosurgeon soon for possible surgery eval. Had BMD in [facility], no response. Saw pain clinic and on lidocaine 5%. More joint pain/swelling R>L hand/R wrist since spacing humira to every 21days for asthma (which is great). Patient requesting to increase humira to 14days due to joint pain/swelling. No steroids since last office visit. Same L 4th/5th finger numbness. Wants COVID vaccine. Reports pain 9-10. Extended AM stiffness. Feels safe at home. Has enough food, supplies and medications. Forgot BP medication this AM. Overall mildly uncomfortable but happy with rheum care. No falls/fx/trauma/illness/oral sores/rash/hairloss/jaw pain/dysphagia/epistaxis/hemoptys is since last visit. No adverse effects with meds. No other complaints. Patient denies fever, chills, cp, dyspnea, nausea, vomiting, night sweats, scalp tenderness, visual changes, abbott, bowel/bladder changes, weight changes or other complaints. Last visit supportive care, increase calcium/potassium intake if levels low, follow up with UE/hand ortho/postponing R shoulder/wrist surgeries, 40mg kenalog IM 09/16/15, f/u with GI for GI issues eval, restart prednisone morgan as needed for flares, improved with xeljanz OFF due to cost/restart when affordable, see ortho s/p R TKR, f/u hand ortho for arm/elbow/wrist care and for trigger finger injection if needed again, neurontin 300mg 3times a day and increase if necessary, no lyrica (no response), improved with humira but worsens asthma/thus take every 2-3weeks as tolerated, continue sq 1ml once every other week injections methotrexate, ssz 500mg 3times a day, daily arava, OFF plaquenil, prozac and f/u with PCP for adjustment, nightly and prn wrist splints, PT exercises for contractures, eyedrops per ophthalmology 07/13/20:R hand/elbow better with elbow//ulnar entrapment release surgery 10/2019. But L 4th/5th fingerpain since 3elbow/ulnar entrapment release surgeries 09/2019 last on 04/2020. Saw neurology, severe L hand nerve impairment. Better with voltaren gel. More frequent asthma. Negative COVID-19 test. Feels safe at home. Has enough food, supplies and medications. Back on humira busy sometimes it worsens asthma attack, but keeps joint pain/swelling. Reports pain 3-5/10. Minimal Am stiffness. Overall mildly uncomfortable but happy with rheum care. No falls/fx/trauma/illness/oral sores/rash/hairloss/jaw pain/dysphagia/epistaxis/hemoptys is since last visit. No adverse effects with meds. No other complaints. Patient denies fever, chills, cp, dyspnea, nausea, vomiting, night sweats, scalp tenderness, visual changes, abbott, bowel/bladder changes, weight changes or other complaints. Last visit supportive care, increase calcium/potassium intake if levels low, follow up with UE/hand ortho, 40mg kenalog IM 09/16/15, f/u with GI for GI issues eval, restart prednisone morgan as needed for flares, improved with xeljanz OFF due to cost, see ortho s/p R TKR, f/u hand ortho for arm/elbow/wrist care and for trigger finger injection if needed again, neurontin 300mg 3times a day and increase if necessary, no lyrica (no response), improved with humira, continue sq 1ml once every other week injections methotrexate, ssz 500mg 3times a day, daily arava, OFF plaquenil, prozac and f/u with PCP for adjustment, nightly and prn wrist splints, PT exercises for contractures, eyedrops per ophthalmology 01/16/20:in 10/13/19 Dr Almanzar is admitting pt to hospital in [place] to debride wound she has on her left elbow. Was in ED 10/12/19 for nonhealing LUE wound/now healed. Developed on LUE hematoma. Had EMG hematoma pressing on nerve. Still numbness and tingling L 4th/5th fingers. Off rheum meds x 3weeks, back on rheum meds/humira/arava/mtx. Likes the humira. reports pain 12/09. Minimal AM stiffness. Now on prozac 20mg helps her sleep/high stress/anxiety. Overall mildly uncomfortable but happy with rheum care. No falls/fx/trauma/illness/oral sores/rash/hairloss/jaw pain/dysphagia/epistaxis/hemoptys is since last visit. No adverse effects with meds. No other complaints. Patient denies fever, chills, cp, dyspnea, nausea, vomiting, night sweats, scalp tenderness, visual changes, abbott, bowel/bladder changes, weight changes or other complaints. Last visit supportive care, increase calcium/potassium intake if levels low, follow up with UE/hand ortho, 40mg kenalog IM 09/16/15, f/u with GI for GI issues eval, restart prednisone morgan as needed for flares, improved with xeljanz OFF due to cost, f/u ortho s/p R TKR, f/u hand ortho for trigger finger injection if needed again, neurontin 300mg 3times a day and increase if necessary, no lyrica (no response), improved with humira, continue sq 1ml once every other week injections methotrexate, ssz 500mg 3times a day, may consider trial arava in future if high APRs, OFF plaquenil, prozac and f/u with PCP for adjustment, nightly and prn wrist splints, PT exercises for contractures, eyedrops per ophthalmology 07/17/19:feeling 90% better with humira and rheum meds. One asthma flare since last office visit. methotrextae once every week. Tolerating daily arava/ssz. Still has R 4th/5th numbness, ortho will improve 1year after elbow surgery/ulnar nerve (5months ago). 5lb weight restriction with arm after surgery for life. Due for L elbow surgery but patient postponing. Slight nausea. unable to open pill bottle. Working with PT. Reports pain 1/10. Minimal Am stiffness. Not on diuretic, mvi, calcium/potassium supplements. Has cramps in thighs. Overall mildly uncomfortable but happy with rheum care. No falls/fx/trauma/illness/oral sores/rash/hairloss/jaw pain/dysphagia/epistaxis/hemoptys is since last visit. No adverse effects with meds. No other complaints. Patient denies fever, chills, cp, dyspnea, nausea, vomiting, night sweats, scalp tenderness, visual changes, abbott, bowel/bladder changes, weight changes or other complaints. Last visit supportive care, follow up with UE/hand ortho, 40mg kenalog IM 09/16/15, f/u with GI for GI issues eval, restart prednisone morgan as needed for flares, improved with xeljanz restart if affordable, f/u ortho s/p R TKR, f/u hand ortho for trigger finger injection if needed again, neurontin 300mg 3times a day and increase if necessary, no lyrica (no response), OFF humira due to frequent infections, continue sq 1ml weekly injections methotrexate, ssz 500mg 3times a day, may consider trial arava in future if high APRs, OFF plaquenil, prozac and f/u with PCP for adjustment, nightly and prn wrist splints, PT exercises for contractures, eyedrops per ophthalmology 01/14/19;off xeljanz due to cost. Last dose of methotrexate Monday. R elbow injection from ortho 2months ago with 1day relief. Future surgery of R elbow and R wrist fusion may require her to change future occupation due to limited heavy lifting. Will see another ortho for 2nd opinion. Lost weight due to nausea and pain. 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 [place] better on xeljanz and did not have more frequent infections. Reports pain 05/11. Moderate AM stiffness. Overall mildly uncomfortable but happy with rheum care. No falls/fx/trauma/illness/oral sores/rash/hairloss/jaw pain/dysphagia/epistaxis/hemoptys is since last visit. No adverse effects with meds. No other complaints. Patient denies fever, chills, cp, dyspnea, nausea, vomiting, night sweats, scalp tenderness, visual changes, abbott, bowel/bladder changes, weight changes or other complaints. Last visit supportive care, consult hand ortho, 40mg kenalog IM 09/16/15, f/u with GI for GI issues eval, restart prednisone morgan as needed for flares, improved with xeljanz restart if affordable, f/u ortho s/p R TKR, f/u hand ortho for trigger finger injection if needed again, neurontin 300mg 3times a day and increase if necessary, no lyrica (no response), OFF humira due to frequent infections, continue sq 1ml weekly injections methotrexate, ssz 500mg 3times a day, may consider trial arava in future if high APRs, OFF plaquenil, prozac and f/u with PCP for adjustment, nightly and prn wrist splints, PT exercises for contractures, eyedrops per ophthalmology 07/16/18:last dose xeljanz 11mg a few days ago, too costly with new insurance. Has not missed methrexate weekly, last Monday. Daily folic acid. Still taking ssz. Not taking plaquenil. More hand/wrist and elbow pain. But no increase in swelling. Had RLE lateral leg shingles ~2016, better with neurontin. Due to have new grandchild soon. Reports pain 05/11. Moderate AM stiffness. Not on prednisone (did take once for joint pain flare). No hospitalizations since last office visit. Overall uncomfortable but happy with rheum care. No falls/fx/trauma/illness/oral sores/rash/hairloss/jaw pain/dysphagia/epistaxis/hemoptys is since last visit. No adverse effects with meds. No other complaints. Patient denies fever, chills, cp, dyspnea, nausea, vomiting, night sweats, scalp tenderness, visual changes, abbott, bowel/bladder changes, weight changes or other complaints. Last visit supportive care and f/u with PCP for infection care, 40mg kenalog IM 09/16/15, f/u with GI for GI issues eval, restart prednisone morgan as needed for flares, stop xeljanz due to increased infections (joint pain/swelling much improved with med/may reconsider 5mg daily in future), f/u ortho s/p R TKR, f/u hand ortho for trigger finger injection if needed again, neurontin 300mg 3times a day and increase if necessary, no lyrica (no response), OFF humira due to frequent infections, when infection free restart sq 1ml weekly injections methotrexate, ssz 500mg 3times a day, 400mg daily plaquenil, prozac and f/u with PCP for adjustment, nightly and prn wrist splints, PT for contractures, eyedrops per ophthalmology 04/18/17:off prednisone x 6months. In hospital 11/2016 lung infection treated with antibiotics, another admission for dehydration 12/2016 abdominal pain. New endo med added 2-3months ago. Since Last OV had 3-4 UTIs. Patient thinks more infections and dehydration from xeljanz with new endo med. Less joint swelling. But more muscle pain in neck/R upper back/shoulder/R hand numbness, ankles/feet. Concerned about her performance at work due to her joint pain. Interested in disability. Declined tablet survey. Overall doing ok and happy with care. No falls/fx/trauma/illness/oral sores/rash/hairloss/jaw pain/dysphagia/epistaxis/hemoptys is since last visit. No adverse effects with meds. No other complaints. Patient denies fever, chills, cp, dyspnea, nausea, vomiting, night sweats, scalp tenderness, visual changes, abbott, bowel/bladder changes, weight changes or other complaints. Last visit supportive care and f/u with PCP for infection care, start zpak, 40mg kenalog IM 09/16/15, f/u with GI for GI issues eval, OFF prednisone since fall 2015, when infection free restart xeljanz XR 11mg daily if approved since much improved with med (otherwise start trial of enbrel 25mg sq injection once a week per insurance request), f/u ortho s/p R TKR, f/u hand ortho for trigger finger injection if needed again, neurontin 300mg 3times a day and increase if necessary, no lyrica (no response), OFF humira due to frequent infections, when infection free restart sq 1ml weekly injections methotrexate, ssz 500mg 3times a day, 400mg daily plaquenil, prozac and f/u with PCP for adjustment, nightly and prn wrist splints, PT for contractures, eyedrops per ophthalmology 12/01/16:fell 07/2017 with R elbow fracture and black eye. Not seen since 03/2016. coughing yellow sputum, sore throat. Hoarse voice. 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 Declined tablet survey. Tired. Feeling better since adding methotrexate and xeljanz to plaquenil and SSZ. Thus weaned off prednisone fall 2015, due to high sugars. Walking without a cane since feeling better. Mild arthralgias but no joint pain today 0/10. Minimal AM stiffness. Declined tablet survey. Overall doing ok and happy with rheum care. No falls/fx/trauma/illness/oral sores/rash/hairloss/jaw pain/dysphagia/epistaxis/hemoptys is since last visit. No adverse effects with meds. No other complaints. Patient denies fever, chills, cp, dyspnea, nausea, vomiting, night sweats, scalp tenderness, visual changes, abbott, bowel/bladder changes, weight changes or other complaints. Last visit supportive care, 40mg kenalog IM 09/16/15, f/u with GI for GI issues eval, start prednisone 1-2tab daily, restart xeljanz XR 11mg daily if approved since much improved with med (otherwise start trial of enbrel 25mg sq injection once a week per insurance request), f/u ortho s/p R TKR, f/u hand ortho for trigger finger injection if needed again, neurontin 300mg 3times a day and increase if necessary, no lyrica (no response), OFF humira due to frequent infections, toleraint sq 1ml weekly injections methotrexate, ssz 500mg 3times a day, 400mg daily plaquenil, prozac and f/u with PCP for adjustment, nightly and prn wrist splints, PT for contractures, eyedrops per ophthalmology, 03/29/16:fell the other day since R leg gave out. Shingles of R buttock and RLE. Better with neurontin 3cap 3times. Reports 10/10 right buttocks, right arm/bicep whole body flare . [place] great when taking xeljanz XR for two weeks, felt normal. But insurance would not cover, requesting enbrel or cimzia. Developed severe UTI and went to ED treated with antibiotics. Then had bad constipation from antibiotics. Later developed R buttocks shingles treated with valtrex/off now. Had eye exam November no plaquenil toxicity but dry eyes/sjogrens and prescribed restasis. Insurance would not cover med. R arm pain, unable to reach up and behind head due to pain. Overall doing ok and happy with care. No fx/trauma/illness/oral sores/rash/hairloss/jaw pain/dysphagia/epistaxis/hemoptys is since last visit. No adverse effects with meds. No other complaints. Patient denies fever, chills, cp, dyspnea, nausea, vomiting, night sweats, scalp tenderness, visual changes, abbott, bowel/bladder changes, weight changes or other complaints. Last visit supportive care, 40mg kenalog IM 09/16/15, f/u with GI for GI issues eval, continue pred morgan then 1-2tab daily thereafter, start xeljanz XR 11mg daily if approved, f/u ortho s/p R TKR, 40mg kenalog IM 08/06/15, restart celebrex when off steroids only if ok with GI, f/u hand ortho for trigger finger injection if needed again, neurontin 300mg 3times a day and increase if necessary, no lyrica (no response), OFF humira due to frequent infections, toleraint sq 1ml weekly injections methotrexate, ssz 500mg 3times a day, 400mg daily plaquenil, prozac and f/u with PCP for adjustment, nightly and prn wrist splints, PT for contractures 01/22/16:reports R shoulder/R elbow/R knee pain for several days. Worse yesterday 06/11. Started prednisone yesterday, pain all 03/11. Moderate AM stiffness. Has not missed methotrexate 1ml weekly, SSZ, plaquenil. No infections since last OV. More nodules on hands. Had eye exam Nov 2015, improved, new glasses, no plaquenil toxicity. Overall doing ok and happy with care. No falls/fx/trauma/illness/oral sores/rash/hairloss/jaw pain/dysphagia/epistaxis/hemoptys is since last visit. No adverse effects with meds. No other complaints. Patient denies fever, chills, cp, dyspnea, nausea, vomiting, night sweats, scalp tenderness, visual changes, abbott, bowel/bladder changes, weight changes or other complaints. Last visit supportive care, 40mg kenalog IM 09/16/15, f/u with GI for GI issues eval, start pred morgan then 1-2tab daily thereafter, f/u ortho s/p R TKR, 40mg kenalog IM 08/06/15, restart celebrex when off steroids only if ok with GI, f/u hand ortho for trigger finger injection if needed again, neurontin 300mg 3times a day and increase if necessary, no lyrica (no response), HOLD humira due to frequent infections, may restart if ok with GI sq 0.8-1ml weekly injections methotrexate, ssz 500mg 3times a day, 400mg daily plaquenil, prozac and f/u with PCP for adjustment, nightly and prn wrist splints, PT for contractures, See notes 12/10/20-01/27/12 for details on prior visits 10/07/11 HPI: here for neck/L shoulder pain. Has numbness and tingling discomfort from neck to L elbow. Has been doing shoulder exercises to see if symptoms would improved. Also has worsening hip pain. RA dx'd 24y/o- R elbow, hands, knees, feet pain/swelling. Saw /. Now hips painful. Decreased to 5tabs/week methotrexate for high lfts since 01/2011 and noticed increased joint pain since. did ok with plaquenil. BUt by , severe joint pain and dx'd with fibromyalgia. Seeing GI for GI upset with prozac (started nexium). 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 Has neck tightness. Had L thumb nodule injection last rheum visit with good results. Elevated LFTs since 2008. Was on lower methotrexate doses years ago. Patient denies fever, chills, cp, dyspnea, nausea, vomiting, night sweats, scalp tenderness, visual changes, abbott, bowel/bladder changes, weight changes or other complaints. plaquenil -2002, present methotrexate 2002-present SSZ 2002-present Weekly humira 2002-10/2014, history increased infections, 04/2019-present, worsening breathing issues xeljanz 01/2016 for two weeks with good response, off due to cost, restart when affordable prozac 2002-present, recent GI upset 02/18/11 Rheum note;RF+ CCP+ RA for 25 years and presents today with new sx. Joint symptoms: polyarthralgia involving Has had polyarthralgia primarily involving the MCPs and PIPs of both hands, rt elbow, lt shoulder, knees, and lt ankle with swelling, with morning stiffness of 0. Denies fevers or rash. Medication use:(-) NSAID, (-) prednisone, on MTX x 4 yrs, was on hydroxychloroquine 5-7 yrs ago; TNFa miguel(Humira x 3 yrs), effective in symptoms, without side effects noted. Patient's global assessment 03/11. Functional status: able to perform normal basic ADLs without any limitations. RHEUM. ROS: Joint pain: yes- L knee, L shoulder (6wks ago) Am stiffness: yes 1.5hr Low back pain: yes- since Enthesopathy/Joyce's/heel/plant ar tenderness: b/l cts-by emg; Skin tightness, psoriasis, photosensitivity, purpura: bumps- similar molluscum? Alpecia, patchy: thinning with DM Eye inflammation: glasses SICCA: dry eyes GI problems-diarrhea/bleeding/IBD/Gl uten intolerence/Dysphagia: gerd Organ inv-Serositis: exertional asthma Fatigue: sleeps 7h/night, snores PMR/GCA ROS: negative Other ROS:The remainder of the review of systems is negative. 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 Non-specific reactivity may at times be seen with this test due to some underlying phenomena. Please correlate with HBsAg result and medical history. 11/10/21 note : here with COPD. Dyspnea on exertion and productie cough while symptoms do not include wheezing. Improving. HRCT 11/03/21. Started on relegy last visit and breathing has improved. holtern monitor test was abnormal and will see cardiology. 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 Etiology unclear at this time. Secondary to diastolic dysfunction. HRCT 11/03/21 mild bronchiectasis. Otherwise unremarkable lungs. 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 Alignment is satisfactory. No fracture. Some increased radiolucency at the interface of the distal humerus humerus and proximal ulnar component.. No gross soft tissue swelling. 03/2021 MRI lumbar spine-1. Small amount of residual/recurrent right central extruded disc at L5-S1. Enhancing granulation tissue in the right ventral and lateral epidural space at L5-S1. Mild interval progression of type II discogenic endplate changes at L5-S1. 2. Subtle enhancement and swelling of the right S1 nerve root, which may represent a focal neuritis. 3. Postsurgical changes of right-sided L5-S1 hemilaminectomy and discectomy. No discrete underlying abscess. Anatomic Thoracic/Lumbar Variant: None. L4-5 is considered the level of the iliac crest and assume there are 5 lumbar-type vertebrae. 03/2021 low hgb 11.3;high plt 411, crp 11.7;NL cornelia f cbc, 12/10/20 high glu 455, crp 1.3 (0.7), esr 35 (41);NL rest of cmp, cbc, vitamin D 43.5, vitamin [id number];negative quantiferon tb; [facility] 11/27/20 BMD osteopenia L1/L3/L4 1.102 g/cm2, tscore-More than half of todays over 40 minute [id number] office visit was spent in counselling/coordination of care, zscore2;L fem neck 0.808g/cm2, tscreo-0.4, zscore1;Total L hip 0.946g/cm2, tscore 0, zscore1.1;R fem neck 0.662g/cm2, tscore-1.7, zscore-0.3, Total R hip 0.781g/cm2, tscore-1, zscore0.3;L foreamr 0.505g/cm2, tscore-1.2, zscore0.3; FRAX major osteoporotic fracture risk 11%;hip fracture risk 1.2%; [facility] 11/27/20 lumbar xrays-mild osteopenia. Significant disc narrowing L5-S1 with degenerative vacuum phenomenon. Mild posterior osteophytosis is noted. Facet joint arthrosis at mid to lower lumbar spine. 07/13/20 low potassium 3.5;high esr 41 (34), gluc 156;NL rest of cbc, cmp, crp 0.7 (1.2), vitamin D 32;negative quantiferon tb; outside 04/06/20 negative COVID-19;high gluc 171;NL hgb 13.9, creatinine 0.85 outside 10/2019 low potassium 3.3, calcium 8.1, hgb 11.1;high gluc 206, rest of cbc, cmp; outside 01/2019 high wbc 11.09;low hgb 9.8, potassium 3.3, calcium 7.6;NL rest of bmp 01/14/19 high glucose 364, esr 83 (59), crp 5.6 (4.9), plts 408 (362);low sodium 134;NL rest of cbc, cmp, vitamin D 50.9; 07/16/18 high glucose 482, esr 59 (79), crp 4.9 (4.6);low sodium 135;NL rest of cmp, cbc, vitamin D 51.1; 07/16/18 both hand xrays-Marginal erosions have appeared since 2008 in multiple metacarpal heads bilaterally with some joint space narrowing in the second and third MCP joint on the right and the third MCP joint on the left. There has been also progressive loss of the joint spaces in both wrists with multiple erosions and/or cysts . Most of the erosions have sclerotic margins consistent with remote disease. Degenerative changes in some of the DIP joints and the first CMC joint bilaterally. 07/16/18 both elbow xrays-Severe narrowing of the joint spaces in the right elbow again identified with osteophyte formation present and some cyst formation. [facility] 03/28/18 negative quantiferon tb; [facility] 03/20/18 high glucose 559, total protein 8.8, crp 47.4 (normal <8mg/L), esr 67 (NL0-30mm/hr);low sodium 131;normal rest of cmp, creatinine 0.81, calcium 9.3, ast 13, alt 12, wbc 6.5, hgb 12, plts 375, vitamin D 53; 04/18/17 high esr 79 (58), crp 4.6 (3.2), plts 472, glucose 332;NL rest of cbc, vit D 38.9, rest of cmp; 04/18/17 neck xrays-C7 vertebral body is not completely visualized however the disc spaces are maintained throughout cervical spine. C2-C6 vertebral bodies are intact. Mild facet joint space narrowing at C2/C3, C3/C4, C4/C5 and C6/C7. Mild neural foraminal narrowing at C3/C4 bilaterally. 04/18/17 R elbow xrays-Severe narrowing of the radiocapitellar and ulnar trochlear articulation with osteophytes. SEVERE DEGENERATIVE CHANGES OF THE ELBOW JOINTS PROGRESSED SINCE THE PREVIOUS EXAMINATION. 04/18/17 NL shoulder xrays 11/16/16 high glucose 337, crp 3.2 (2.9), esr 58 (61);low sodium 135;NL rest of cmp, cbc, vit D 48.4;negative quantiferon tb; 01/22/16 high glucose 196, plts 429, esr 61 (43), crp 2.9 (2.5);low hgb 11.3;NL rest of cbc, cmp, vit D 51; 01/22/16 NL shoulder xrays 01/22/16 R elbow xrays-There is severe radiocapitellar and ulnotrochlear joint space narrowing, with radiocapitellar and ulnotrochlear osteophytes. There is a trochlear subchondral cyst measuring 1 cm in diameter. A joint effusion is present [facility] 09/21/15 GI study- unremarkable air contrast upper GI exam [facility] 09/21/15 abdominal ultasound/echo= degree of hepatic steatosis. 09/16/15 high glucose 157, plts 413, esr 43 (70), crp 2.5 (2.8);NL rest of cbc, cmp, vit D 64.9; 11/12/14 high esr 70 (41), crp 2.8 (2.7);NL cmp, cbc, vit D 43.5, [id number];negative quantiferon TB, hepatitis panel except +hep B surface AB Comments:These results are consistent with previous exposure and/or immunity tothe hepatitis B virus antigen. Infectious disease Dr.James Ramirez 09/18/14 note: septic arthritis of knee;completed IV therapy and feels well. High esr elevated likely related to her underlying connective tissue d/o. Her crp 3. I think she is fine to undergo total joint replacement surgery, planned in 4.5 weeks. Stop her IV antibiotic therapy and leave her off of any antibiotic therapy and observe. She is on plaquenil for her connective tissue d/o which I think is reasonable. She asks about escalating the treatment and I am not certain whether that is best yet until after her surgery. 06/30/14 high glucose 161, plts 427, esr 41 (44), crp 2.7 (0.8);NL rest of cbc, cmp, vit D 36.4; 06/29/13 low vit D 30.5;high glucose 210, alt 56, esr 44;NL rest of cmp, cbc; 12/10/12 high glucose 335, mildly high NL alt 49;NL rest of cmp, cbc, esr 8, crp 0.5; 08/22/12 high esr 40, alt 46, ast 53, glucose;NL rest of cmp, cbc, crp 0.8; 04/18/12 high wbc 11.1;NL hgb, plts, cmp, calcium 9.9, creat 0.56, ck 51, aldolase 4.9, vit D 32.9, [id number]; 01/21/12 NL cbc, creat 0.54, crp 0.4, esr 7;high TP 8.7, ast 74, alt 91, glucose 261; 10/12/2011 BMD NL;10/07/11 high ast 43, alt 62, esr 17;NL crp 0.3, cbc, creat 0.5;NL shoulder xrays; 10/07/11 Hip xrays-DJD/osteoarthritis 10/07/11 Cervical xrays-IMPRESSION: 1. FACET DEGENERATIVE CHANGES ON THE LEFT AT C3-4 WITH MILD TO MODERATE NARROWING OF THE NEURAL FORAMEN DESCRIBED 2. MILD ANTERIOR SUBLUXATION OF C1 WITH FLEXION PROBABLY DUE TO LIGAMENTOUS LAXITY. 05/25/11 NL cbc, creat 0.56, esr 10;high ast 57, alt 59;02/18/11 NL cbc, creat 0.51, esr 11;high ast 42, alt 52;11/12/10 NL creat 0.51, cbc, crp 0.2;high ast 70, alt 60; 11/09/09 NL cbc, creat 0.77;high ast 50, alt 69; PHYSICAL EXAM reviewed vitals from last visit BP 155/83 Pulse 99 Wt 149 lb 1.6 oz (67.6kg) SpO2 97% BP 115/72 Pulse 83 Wt 66.1 kg (145 lb 12.8 oz) SpO2 99% BMI 25.01 kg/m Gen; A&Ox3, NAD, very pleasant, better spirits, good mood, uncomfortable, speaks in full sentences without distress GAIT: ambulates slowly/favoring RLE due to R foot/buttock/RLE pain, without assistance or assistive devices HEENT: NC/AT, +mmm, no lad/jvd/thyromegaly/sores/exudate s/thrush, EOMI/PERRL, no conjunctival injection/scleral icterus, thin hair, no alopecia, normal/nontender temporal arteries, normal nares, Yes glasses, fair dentition, hoarse voice, coughing during exam CV; +s1, s2, RRR, no murmurs Lungs: CTAB ABD: +bs, soft, ntnd, no hsm Ext: No pedal edema, no cyanosis/clubbing Hands: nodule on L thumb, daylin nodes, R 4th finger bent and palmar nodule tender to palpation, mild R>L 2nd/3rd MCP swelling, no warmth/erythema, decreased range of motion due to pain Wrists: R wrist swelling, R>L tender to palpation, decreased range of motion due to pain, +tinel's and negative carly tests Elbows-s/p R/L ulnar entrapment release, nodule distal to L elbow, L elbow improved but not complete extension without pain in L hand, L tender, L decreased range of motion due to pain, no swelling/warmth/erythema Shoulders-R>L mild tenderness to palpation with full range of motion (from) , no warmth/erythema Knees: s/p R TKR, R decreased tenderness to palpation, no swelling, full range of motion, no crepitus, no warmth/erythema Ankles/feet: top and bottoms of R>L feet mildly tender to palpation, no synovitis, no swelling/warmth/erythema, from Hips: thighs diffusely sore, fair range of motion, R buttock tender to palpation with from Back: s/p lumbar surgery, R lumbar tender to palpation, from CN-II-XII grossly intact, normal pulses/reflexes Strength 5/5, tone normal Skin-no rash;healed shingles on R buttocks and R back of leg Nails-no pitting Trigger points 08/19 IMPRESSION/DIAGNOSIS:08/11/22 M05.79 Rheumatoid arthritis of multiple sites without organ or system involvement with positive rheumatoid factor (HCC) (primary encounter diagnosis) R70.0 Elevated sed rate Z79.899 Long-term use of high-risk medication M25.60 Joint stiffness of multiple sites H04.123 Dry eye syndrome of both eyes M25.511, G89.29, M25.512 Chronic pain of both shoulders M15.3 Secondary osteoarthritis of multiple sites M85.89 Osteopenia of multiple sites M79.641, M79.642 Bilateral hand pain M25.521, M25.522 Bilateral elbow joint pain M54.2 Neck pain M25.551, M25.552 Hip pain, bilateral M54.41, G89.29 Chronic bilateral low back pain with right-sided sciatica R79.82 Elevated C-reactive protein (CRP) E55.9 Vitamin D deficiency R79.89 Elevated LFTs 62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[employer] (father-gout, sister-lupus) with PMH:DM, s/p partial thyroidectomy, thyroid polyps, htn, hyperlipidemia, exertional asthma, gerd, FRANCOIS 1991 fibroids, fell downstairs R wrist fx 2001, s/p R knee scope 1999 presents with dx'd RA since 24y/o with joint pain from R elbow, hands, knees, feet pain/swelling, DJD/osteophytes on knee xrays, erosions on hand xrays, hx RF+ CCP+, elevated lfts, RA nodules, now with neck/L shoulder/hip pain in the last few weeks, extended AM stiffness, has findings consistent with seropositive erosive RA, cervical/shoulder pain, fibromyalgia, s/p R TKR 10/21/14 after septic arthritis 09/2014, here flare of RA of all joints R>L side after UTI/constipation from antibiotics, then had R buttocks/RLE shingles 2015, history of multiple UTIs/hospital admissions for lung infection & dehydration 2015, diagnosed with dry eye syndrome at eye exam, here with myalgias, polyarthritis, decreased joint swelling, but polyarthralgias, off xeljanz due to cost. Last dose of methotrexate Monday. R elbow injection from ortho with 1day relief. Future surgery of R elbow and R wrist fusion may require her to change future occupation due to limited heavy lifting,feeling 90% better with humira and rheum meds. One asthma flare since last office visit. methotrextae once every week. Tolerating daily arava/ssz. 5lb weight restriction with arm after surgery for life. in 10/13/19 Dr Almanzar is admitting pt to hospital in [place] to debride wound she has on her left elbow. Was in ED 10/12/19 for nonhealing LUE wound/now healed. Developed on LUE hematoma. H2ad EMG hematoma pressing on nerve. Still numbness and tingling L 4th/5th fingers, R hand/elbow better with elbow//ulnar entrapment release surgery 10/2019. But L 4th/5th fingerpain since 3elbow/ulnar entrapment release surgeries 09/2019 last on 04/2020. Saw neurology, severe L hand nerve impairment. Better with voltaren gel. Found to have severe L5-S1 pain with nerve root impingement.Saw pain clinic and on lidocaine 5%. s/p L5/S1 surgery 01/2021 with less pain in RLE. But had R foot numbness. Had infection from incision. Treated with antibiotics x 2weeks. trouble breathing, passed out in shower, went to hospital 05/11/21, had cardiac work up, treated with IV steroids which improved her breathing. found a lump on upper back, xeljanz did not cause lung issues vs humira/worsens breathing/asthma. More joint pain if stretching humira to every 3weeks. Still taking gabapentin. Reports pain 05/11. Moderate AM stiffness several hours. Nodule on L elbow. Numbness and tingling of 4th/5th fingers after L elbow surgery. Had BMD in [facility]. saw pulm 11/2021, no rheumatoid arthritis associated ILD. Had COVID19 infection in 05/2022 treated with steroids and inhalers. Out of rinvoq for 6months. Taking neurontin, methotrexate 1ml sq weekly, sulfasalazine 3tabs daily, arava 20mg daily, vitamin D 5000 International Units daily with food. 50-70% improvement from rinvoq. Chronic current pain in R knees, RLE, R great toe/foot/curling (better when on rinvoq or steroids), hands, L shoulder, LUE, neck, hips, back, spasms. Reports pain 07/11. Several hours minimal AM stiffness. COVID vaccine Pfizer 07/01/21, 07/22/21. 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 3rd grandchild (boy) due 11/2022. Feels safe at home. Has enough food, supplies and medications. Overall uncomfortable but happy with rheum care. = supportive care, see pain clinic for assisted pain recommendations/due for back injections, see neurosurgeon/due for possible L5-S1 surgery if BMD stable, improved with prednisone/take for flares morgan, follow up with UE/hand ortho/postponing R shoulder/wrist surgeries, 40mg kenalog IM 09/16/15, f/u with GI for GI issues eval, improved with xeljanz OFF due to cost, see ortho s/p R TKR, f/u hand ortho for arm/elbow/wrist care and for trigger finger injection if needed again, neurontin 300mg 3times a day and increase if necessary, no lyrica (no response), improved with humira but worsens asthma, rinvoq daily/restart when received by [employer], continue sq 1ml once every other week injections methotrexate (HOLD 1-2weeks after vaccines), ssz 500mg 3times a day, daily arava, OFF plaquenil, prozac and f/u with PCP for adjustment, nightly and prn wrist splints, PT exercises for contractures, eyedrops per ophthalmology, answered all questions and concerns-patient voiced understanding. RECOMMENDATION/PLAN: Reviewed labs/tests with patient (faxed clinic note to PCP per patient request) Reviewed Provided printed info on RA, fibromyalgia, plaquenil, methotrexate, ssz, biologics 04/18/12 =40mg IM kenalog;04/18/12, 10/07/11=40mg kenalog L shoulder 07/26/21, 07/16/18, 03/29/16, 01/22/16 precert xeljanz XR 08/11/22 check cmp, cbc, esr, crp, vitamin D every 3months, Modified08/11/22 BENJAMIN 1, pain 100%;07/26/21 BENJAMIN 0,pain 80%;12/10/20 BENJAMIN 0.5, pain 90-100%;07/13/20 BENJAMIN 0, pain 30-50%;01/16/20 BENJAMIN 0, pain 30%;07/17/19 BENJAMIN 0, pain 10%;01/14/19 BENJAMIN 0, pain 80%;07/16/18 BENJAMIN 0, pain 80%;04/18/17 BENJAMIN 0, pain 90%;12/01/16 BENJAMIN 0, pain 0%;03/29/16 BENJAMIN 1, pain 100%;01/22/16 BENJAMIN 0.75, pain 60%;09/16/15 BENJAMIN 0.5, pain 80%;08/06/15 BENJAMIN 1, pain 100%;11/12/14 BENJAMIN 1, pain 50%;06/30/14 BENJAMIN 1.75, pain 90%;07/03/13 BENJAMIN 1.75, pain 80%;12/10/12 BENJAMIN 1, pain 80%;08/22/12 BENJAMIN 0.5, pain 50%;04/18/12 BENJAMIN 1.5, pain 70%;01/27/12 BENJAMIN 1.5, pain 70%;10/07/11 BENJAMIN 1.5, pain 60%; May apply over the counter arthritis cream (biofreeze, icy hot, asper cream, tiger balm, capsacin, etc.) to painful joints up to four times a day. Avoid contact with eyes. May take ES acetaminophen 500mg every 4-6hours for joint pain. Do not exceed 2000mg /day. Increase calcium intake Methotrexate 1ml sq injection food every other a week (HOLD 1-2weeks after vaccines) Do not drink alcohol while taking methotrexate Have bloodwork every 8-12weeks for monitoring while taking Methotrexate Please take folic acid 1mg tab:Take 1tab by mouth daily OFF Hydroxychloroquine/Plaquenil SSZ 500mg tab 3times a day Rinvoq daily by mouth arava/leflunamide daily with food hold methotrexate/rinvoq/arava if on antibiotics or if you have any signs/symptoms of infection. wear wrist splints at night and as needed for carpal tunnel syndrome may take prednisone for flares No NSAIDs (ex. motrin, etc.)on pred. eyedrops as instructed No response lyrica gabapentin/neurontin 300mg 3tab 3times a day see hand ortho for trigger finger injection/release/hand/wrist/elbo w pain nonfasting bloodwork as scheduled Bone Health Recommendations: -Bone Density is recommended after menopause and after age 55-60, sooner if patient has risk factors, sooner if on systemic steroid use of 3 months or more. -Vitamin D supplementation recommended, optimal dose is the dose necessary to achieve Vitamin D 25-OH blood level in range of 40-50 ng/mL. -Recommended daily dose of calcium: 1200mg total a day in divided doses. Calcium from dietary sources, if not sufficient, or if with h/o calcium nephrolithiasis would recommend Calcium Citrate supplement, as it is recommended to avoid caclium carbonate products, which as main dietary calcium source. -Regular weight-bearing and muscle-strengthening exercise -Avoidance of tobacco smoking, excessive alcohol intake and excessive caffeine intake. -Fall and fracture precautions Discussed medication dosage, usage, goals of therapy, and side effects. Stressed the importance of following up with PCP and specialists for his/her chronic diseases, health, CV, and cancer screening and continued care. Will follow disease activity/progression and adjust therapeutic regimen to disease activity and severity. Discussed findings, impression and plan with patient. Patient understands above plan; questions asked and answered. Patient agrees to plan as noted above. Time spent with patient in addition to Counseling and Coordination of Care,spent more than 50% of the [id number] time in counseling, explanation of diagnosis, and planning of further management, I spent a total of 30 minutes on the date of the service which included preparing to see the patient, [id number] patient care, completing clinical documentation, obtaining and/or reviewing separately obtained history, performing a medically appropriate examination, counseling and educating the patient/family/caregiver, ordering medications, tests, or procedures, communicating with other HCPs (not separately reported), independently interpreting results (not separately reported), communicating results to the patient/family/caregiver and care coordination (not separately reported) F/U in 4-6months, earlier if needed Recommendations: -see above I will relay my findings and recommendations to the physician requesting the consult by letter/electronic shared medical records. I had the pleasure of seeing your patient, for RA, joint pain. Please feel free to contact my office if you need additional information or have further questions or concerns. Thank you for allowing me to participate in the care of your patient. Pepe Carter MD cc Dr.Dwight Oliver Jc; (ortho); (ID); (ortho);Dr.Douglas Schafer documented in this encounter [facility] 08-11-2022 Instructions Pepe Carter MD - 08/11/2022 6:00 AM EST May apply over the counter arthritis cream (biofreeze, icy hot, asper cream, tiger balm, capsacin, etc.) to painful joints up to four times a day. Avoid contact with eyes. May take ES acetaminophen 500mg every 4-6hours for joint pain. Do not exceed 2000mg /day. Increase calcium intake Increase potassium intake Methotrexate 1ml sq injection food every other a week (HOLD 1-2weeks after vaccines) Do not drink alcohol while taking methotrexate Have bloodwork every 8-12weeks for monitoring while taking Methotrexate Please take folic acid 1mg tab:Take 1tab by mouth daily OFF Hydroxychloroquine/Plaquenil SSZ 500mg tab 3times a day off humira Rinvoq daily by mouth arava/leflunamide daily with food hold methotrexate/rinvoq/arava if on antibiotics or if you have any signs/symptoms of infection. wear wrist splints at night and as needed for carpal tunnel syndrome may take prednisone for flares No NSAIDs (ex. motrin, etc.)on pred. eyedrops as instructed No response lyrica gabapentin/neurontin 300mg 3tab 3times a day see hand ortho for trigger finger injection/release/hand/wrist/elbo w pain nonfasting bloodwork as scheduled Thank you. Moisturizing treatments Stimulating saliva -- Simply sucking on sugarless candy or dried fruit slices (eg, peaches or nectarines) can stimulate the flow of saliva in many patients. [place] flavored sugarless tablets and sugar-free chewing gum may also be helpful. In some patients, medications such as pilocarpine or cevimeline are given to increase saliva production. Replacing secretions in the mouth -- Sipping on water throughout the day is an easy and effective treatment of dry mouth for many patients. The water does not have to be swallowed. It can be rinsed around the mouth and then spit out. If this is not effective, an artificial saliva product (spray or lozenge) may be helpful. If painful gums are a problem, a gel that relieves dry mouth (such as Oral Balance) can be helpful. Avoiding cavities -- Patients with SS are at increased risk for dental cavities. SS patients should perform careful dental hygiene, ideally brushing and dental flossing after eating meals and snacks. Patients should visit their dentist at least every six months. Toothpaste designed specifically for patients with dry mouth is available (eg, Biotene , Orajel ). These lack the detergents that are present in many types of toothpaste, which can irritate a dry mouth. Toothbrushes with special features that help clean between the teeth and electric toothbrushes may also help to keep the teeth clean. Patients should use a toothpaste with fluoride or a special fluoride rinse or varnish. We recommend a fluoride treatment with a dentist or dental hygienist after each cleaning. Since the dentist may not stock this treatment, patients should contact the dental office prior to the appointment. Dry eye -- Use of a humidifier or moist washcloth over the eyes may provide some relief for dry eyes. Most patients also use an artificial tear drop. Many different solutions are available; a clinician can recommend an appropriate choice based on an individual's pattern of dryness and fluid production in the eye. Some patients are sensitive to the preservatives found in artificial tear preparations. If burning or itching occurs, a brand with a non-irritating preservative may be tried. Alternately, a preservative-free variety can be used. Eye drops without preservative come in small, single-dose containers that may be hard for some people with joint and/or vision problems. A prescription eye drop containing cyclosporine is also available (Restasis ). Some patients use an eye ointment at night. It is important to use only about 1/8 (3 mm) of the ointment because overuse can block the ducts and lead to a condition called blepharitis (see Blepharitis (eyelid inflammation) below). Preserving natural tears -- Various measures can be used to preserve a patient's own tears. Rueda can be fitted on the sides of glasses, helping to protect the eye from air and wind, reducing evaporation of tears. Goggles or wrap-around sunglasses serve a similar function. Another approach is a simple surgical procedure called punctal occlusion. In this procedure, an biometrics experimentalist inserts small plugs into the tear ducts in the corner of the lower eyelid, nearest the nose, where the tears normally collect and drain into the nasal passages. By blocking this duct, the patient's tears stay on the eye longer. There are several types of plugs, one of which does not touch the surface of the eyeball; these plugs are generally preferred. Treating other problems Fungal infections in the mouth -- Prescription medications are available to treat painful mouth lesions due to oral candidiasis (yeast infection); these include clotrimazole, nystatin elixir, miconazole gel, or amphotericin B lozenges. Patients who wear dentures and develop an infection should disinfect the dentures overnight while being treated. The soak should include nystatin powder or 0.2 percent chlorhexidine solution to prevent reinfection. Dry nose -- It is important to treat nasal dryness or stuffiness because blocked nasal passages can increase mouth breathing and worsen dry mouth. Saline nasal sprays are available in most drugstores. Other cause of nasal blockage, including allergy or sinus infection, should be treated promptly. (See Patient information: Rhinitis). Blepharitis (eyelid inflammation) -- Blepharitis causes symptoms that are similar to those of dry eye (swollen lids and redness of the inside of the lids). Gently washing the skin of the eyelids can relieve blepharitis. This can be done with a warm wet washcloth and a small amount of no tears shampoo. With the eyes closed, the excess debris should be rubbed from the inner eye to the outer eye area. Dryness in other areas -- Patients with SS may have dryness in other areas, including the lips, skin, and the vagina. Dry lips may require petroleum jelly or lip salves. Dry skin usually improves with frequent and liberal use of a moisturizing cream or ointment. Some women with SS have difficulty with vaginal dryness, especially after menopause. There are several products specifically designed for vaginal dryness, including vaginal moisturizers, estrogen cream, vitamin E oil, and lubricants for use with sexual intercourse; a healthcare provider should be consulted for specific recommendations. FIBROMYALGIA PATIENT INSTRUCTIONS Fibromyalgia syndrome or FMS is a painful, uncomfortable, unpleasant, but otherwise benign disease. This means that it is not life-threatening. The pain of fibromyalgia usually consists of diffuse aching or burning in both the upper and lower body on both the right and left sides. It can change location and there can be sensations of pins and needles or dysesthesia in the arms and legs as well. There are a host of symptoms often associated with fibromyalgia including stiffness of the muscles, increased headaches or facial pain, sleep disturbances, gastrointestinal complaints, such as constipation and/or diarrhea and/or cramping known as irritable bowel syndrome or IBS, frequent urinary bladder symptoms including increased frequency or increased urgency among others. Numerous other signs and symptoms have been described including temperature sensitivity, nagging skin complaints, recurrent chest pains, a feeling of imbalance or dysequilibrium and a sensation of restless legs . Importantly, about three-quarters of patients with fibromyalgia also have signs and symptoms consistent with chronic fatigue syndrome or CFS. This is a sense of excessive fatigability with non-restorative sleep that can often be brought on by minor exertion. Seventy-five percent of other patients experience either a past history or a current bout of depression, anxiety or panic. Collectively this is a complex disorder, but one afflicted with fibromyalgia and/or chronic fatigue syndrome must remember that these symptoms are real, they are not psychological and they are in no way the patient s fault. There is no simple cure for chronic fatigue syndrome or fibromyalgia, but the encouraging news is that the symptoms are, for the most part, reversible. The sobering reality is that there is no quick fix. The treatment program for fibromyalgia consists of multiple modalities. Those treatments that have been shown to be most effective include graded low intensity exercise such as a walking program or an aquatics program and cognitive behavioral therapy which helps people adapt to their symptoms. If there is any history of depression, anxiety or panic, formal assessment and treatment of these by a trained mental health professional is also vital. Frequently, anti-depressants are also used in patients without any history of depression to take advantage of their ability to modify pain, fatigue and mental confusion. Medications frequently used include those to help correct sleep, such as low dose antidepressants or non-habit forming sedatives and mild analgesics, such as Tylenol, nonsteroidal anti-inflammatory drugs, such as ibuprofen or more potent analgesics, such as tramadol (Ultracet). Therapy must be highly individualized. In virtually every major metropolitan area, the [employer] is engaged in a fibromyalgia self-help program and can also direct patients with various forms of rheumatism to active aquatic classes. We encourage contacting the [employer] for proactive involvement. Most signs and symptoms of fibromyalgia can be managed by primary care physicians under the guidance of a specialist. Further information can be obtained from the National [employer] Partnership Website at www.fmpartnership.org. documented in this encounter [facility] 08-01-2022 Miscellaneous Notes Pt was notified via . Please Call patient if MyChart note not read to review results/released to My Chart if tests completed at [facility]: High glucose- care per primary care provider/endocrinology. High inflammatory tests-likely since out of rheum medication, will monitor. Rest of labs normal. Continue same daily vitamin D with food. Recheck nonfasting labs in 3months.The orders have been placed. Happy to further review and discuss at follow up office visit. Continue rest of treatment plan per instructions at last office visit. Thank you. 07/29/22 high esr 60 (30), crp 3 (0.7), glucose 328;normal rest of cmp, cbc, vitamin D 36.8; 12/28/21 low potassium 3.3;high esr 30 (44), glucose 339 (480);NL rest of cbc, cmp, vitamin [id number], vitamin D 31.5;negative quantiferon tb, hepatitis panel except +hepB surface AB The result suggests either current or past infection with Hepatitis B virus. Non-specific reactivity may at times be seen with this test due to some underlying phenomena. Please correlate with HBsAg result and medical history. 11/10/21 note : here with COPD. Dyspnea on exertion and productie cough while symptoms do not include wheezing. Improving. HRCT 11/03/21. Started on relegy last visit and breathing has improved. holtern monitor test was abnormal and will see cardiology. 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 Etiology unclear at this time. Secondary to diastolic dysfunction. HRCT 11/03/21 mild bronchiectasis. Otherwise unremarkable lungs. 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 Alignment is satisfactory. No fracture. Some increased radiolucency at the interface of the distal humerus humerus and proximal ulnar component.. No gross soft tissue swelling. documented in this encounter [facility] 07-29-2022 Miscellaneous Notes Labs are done. Notify patient medication sent as requested Thank you. Patient's request for medication is as follows: Requested Prescriptions Pending Prescriptions Disp Refills upadacitinib (RINVOQ) Tb24 tablet 90 tablet 3 Sig: Take 1 tablet (15 mg) by mouth once daily. Swallow whole; DO NOT crush, chew, or open. Hold if on antibiotics or ill. Hold 1weeks after vaccines. Prescription(s) as above. Please process accordingly. Pepe Carter MD Please sign these orders. Patient is enrolled in the [employer] free drug program. Thank you Requested Prescriptions Pending Prescriptions Disp Refills upadacitinib (RINVOQ) Tb24 tablet 90 tablet 3 Sig: Take 1 tablet (15 mg) by mouth once daily. Swallow whole; DO NOT crush, chew, or open. Hold if on antibiotics or ill. Hold 1weeks after vaccines. Please review and advise. David Wilson RPh documented in this encounter [facility] 07-27-2022 Miscellaneous Notes Patient has been scheduled as requested for 07/29/22. I spoke with Ms. Catalan and she is aware of all of the appointment details. Mary SUBRAMANIAN July 27, 2022 10:54 AM Please call and schedule nonfasting labs this month (active since 03/2022); Please send new script to [facility] if needed Notify office if not received. Thank you Patient's request for medication is as follows: Requested Prescriptions Signed Prescriptions Disp Refills upadacitinib (RINVOQ) Tb24 tablet 90 tablet 3 Sig: Take 1 tablet (15 mg) by mouth once daily. Swallow whole; DO NOT crush, chew, or open. Hold if on antibiotics or ill. Hold 1weeks after vaccines. Authorizing Provider: PEPE CARTER Prescription(s) as above. Please process accordingly. Pepe Carter MD Patient called stating that she is out of medication and has been. She has no information on how to get refills. This was done through the [employer] and encounter from 12/17/21 states approved through the end of the year. Patient had received a 3 month supply but no refills since then and she does not know who to contact. Patient has upcoming appointment on 08/11/2022. Pharmacy should not be [facility] - [facility]. Patient has been identified by name and date of : Yes Requested Prescriptions Pending Prescriptions Disp Refills upadacitinib (RINVOQ) Tb24 tablet 90 tablet 3 Sig: Take 1 tablet (15 mg) by mouth once daily. Swallow whole; DO NOT crush, chew, or open. Hold if on antibiotics or ill. Hold 1weeks after vaccines. RX INSTRUCTIONS: Patient aware RX will be sent to pharmacy. PLEASE CALL PATIENT WHEN SENT IN. Bettye Orr documented in this encounter [facility] 04-18-2022 Miscellaneous Notes Please notify patient Patient's request for medication is as follows: Signed Prescriptions Disp Refills gabapentin (NEURONTIN) 300 mg capsule 270 capsule 3 Sig: TAKE 10 CAPSULES BY MOUTH DIVIDED THROUGHOUT THE DAY DEE: No Authorizing Provider: JANEL CHI Prescription(s) as above. Please process accordingly. Janel Chi APRN.CUPOLA PATCHER Most recent Rheumatology visit: 12/30/2021 (with Janel Chi) Recent Office Visits - This Specialty 07/20/2018 APPOINTMENT CANCELLED Internal Medicine Fox Tomlinson MD Upcoming Rheumatology Appointments - Next 365 Days Visit Type Date Time Department [facility] 08/11/2022 9:20 AM [facility] CBC: CBC Latest Ref Rng & Units 07/26/2021 12/28/2021 WBC 3.70 - 11.00 k/uL 7.59 9.06 HEMOGLOBIN 11.5 - 15.5 g/dL 12.9 14.0 HEMATOCRIT 36.0 - 46.0 % 40.9 41.5 PLATELETS 150 - 400 k/uL 319 292 ABS NEUT (ANC) 1.45 - 7.50 k/uL - - ABS LYM 1.0 - 4.0 k/uL - - ABS LYMPH 1.00 - 4.00 k/uL - - Vitamin D: Vitamin D Latest Ref Rng & Units 07/26/2021 12/28/2021 VITAMIN D 25 HYDROXY 31.0 - 80.0 ng/mL 36.7 31.5 LFT: CMP Latest Ref Rng & Units 07/26/2021 12/28/2021 SODIUM 136 - 144 mmol/L 134(L) 136 POTASSIUM 3.7 - 5.1 mmol/L 3.8 3.3(L) CHLORIDE 97 - 105 mmol/L 97 96(L) CO2 22 - 30 mmol/L 23 28 GLUCOSE 74 - 99 mg/dL 480(H) 339(H) BUN 7 - 21 mg/dL 15 18 CREATININE 0.58 - 0.96 mg/dL 0.56(L) 0.66 CALCIUM, TOTAL 8.5 - 10.2 mg/dL 8.7 9.1 AST 13 - 35 U/L 27 22 ALT 7 - 38 U/L 24 22 ALKALINE PHOSPHATASE 34 - 123 U/L 75 81 Creatinine: Creatinine Latest Ref Rng & Units 07/26/2021 12/28/2021 CREAT 0.58 - 0.96 mg/dL 0.56(L) 0.66 ESR/CRP: ESR, WSR Latest Ref Rng & Units 07/26/2021 12/28/2021 WSR 0 - 20 mm/hr 44(H) 30(H) CRP Latest Ref Rng & Units 07/26/2021 12/28/2021 CRP <0.9 mg/dL 0.9(H) 0.7 Uric Acid: None on file in the last 6 months Open Standing (Multiple Instance) Lab Orders None Open Future (Single Instance) Lab Orders Expected Expires Ordered COMP METABOLIC PANEL [SQCMP] 03/31/22 12/29/22 12/29/21 Auth. provider: Pepe Carter MD Assoc. diagnoses: Elevated LFTs CBC [SQCBC] 03/31/22 12/29/22 12/29/21 Auth. provider: Pepe Carter MD Assoc. diagnoses: Anemia of chronic disease SED RATE WESTERGREN [SQWSR] 03/31/22 12/29/22 12/29/21 Auth. provider: Pepe Carter MD Assoc. diagnoses: Elevated sed rate, Elevated C-reactive protein (CRP) C-REACTIVE PROTEIN (CRP) [SQCRP] 03/31/22 12/29/22 12/29/21 Auth. provider: Pepe Carter MD Assoc. diagnoses: Elevated sed rate, Elevated C-reactive protein (CRP) VITAMIN D 25 HYDROXY [SQVITD] 03/31/22 12/29/22 12/29/21 Auth. provider: Pepe Carter MD Assoc. diagnoses: Vitamin D deficiency Pending Prescriptions Disp Refills GABAPENTIN 300 MG CAPSULE 270 capsule 3 Sig: TAKE 10 CAPSULES BY MOUTH DIVIDED THROUGHOUT THE DAY DEE: No Anastsaiia Ballard MA documented in this encounter [facility] 12-30-2021 Instructions Janel Chi APRN.CUPOLA PATCHER - 12/30/2021 3:29 PM EDT May apply over the counter arthritis cream (biofreeze, icy hot, asper cream, tiger balm, capsacin, etc.) to painful joints up to four times a day. Avoid contact with eyes. May take ES acetaminophen 500mg every 4-6hours for joint pain. Do not exceed 2000mg /day. Increase calcium intake Increase potassium intake Methotrexate 1ml sq injection food every other a week (HOLD 1-2weeks after vaccines) Do not drink alcohol while taking methotrexate Have bloodwork every 8-12weeks for monitoring while taking Methotrexate Please take folic acid 1mg tab:Take 1tab by mouth daily OFF Hydroxychloroquine/Plaquenil SSZ 500mg tab 3times a day off humira arava/leflunamide daily with food hold methotrexate/humira/arava if on antibiotics or if you have any signs/symptoms of infection. wear wrist splints at night and as needed for carpal tunnel syndrome may take prednisone for flares No NSAIDs (ex. motrin, etc.)on pred. eyedrops as instructed No response lyrica gabapentin/neurontin 300mg 3tab 3times a day see hand ortho for trigger finger injection/release/hand/wrist/elbo w pain nonfasting bloodwork as scheduled Thank you. Moisturizing treatments Stimulating saliva Simply sucking on sugarless candy or dried fruit slices (eg, peaches or nectarines) can stimulate the flow of saliva in many patients. [place] flavored sugarless tablets and sugar-free chewing gum may also be helpful. In some patients, medications such as pilocarpine or cevimeline are given to increase saliva production. Replacing secretions in the mouth Sipping on water throughout the day is an easy and effective treatment of dry mouth for many patients. The water does not have to be swallowed. It can be rinsed around the mouth and then spit out. If this is not effective, an artificial saliva product (spray or lozenge) may be helpful. If painful gums are a problem, a gel that relieves dry mouth (such as Oral Balance) can be helpful. Avoiding cavities Patients with SS are at increased risk for dental cavities. SS patients should perform careful dental hygiene, ideally brushing and dental flossing after eating meals and snacks. Patients should visit their dentist at least every six months. Toothpaste designed specifically for patients with dry mouth is available (eg, Biotene , Orajel ). These lack the detergents that are present in many types of toothpaste, which can irritate a dry mouth. Toothbrushes with special features that help clean between the teeth and electric toothbrushes may also help to keep the teeth clean. Patients should use a toothpaste with fluoride or a special fluoride rinse or varnish. We recommend a fluoride treatment with a dentist or dental hygienist after each cleaning. Since the dentist may not stock this treatment, patients should contact the dental office prior to the appointment. Dry eye Use of a humidifier or moist washcloth over the eyes may provide some relief for dry eyes. Most patients also use an artificial tear drop. Many different solutions are available; a clinician can recommend an appropriate choice based on an individual's pattern of dryness and fluid production in the eye. Some patients are sensitive to the preservatives found in artificial tear preparations. If burning or itching occurs, a brand with a non-irritating preservative may be tried. Alternately, a preservative-free variety can be used. Eye drops without preservative come in small, single-dose containers that may be hard for some people with joint and/or vision problems. A prescription eye drop containing cyclosporine is also available (Restasis ). Some patients use an eye ointment at night. It is important to use only about 1/8 (3 mm) of the ointment because overuse can block the ducts and lead to a condition called blepharitis (see Blepharitis (eyelid inflammation) below). Preserving natural tears Various measures can be used to preserve a patient's own tears. Rueda can be fitted on the sides of glasses, helping to protect the eye from air and wind, reducing evaporation of tears. Goggles or wrap-around sunglasses serve a similar function. Another approach is a simple surgical procedure called punctal occlusion. In this procedure, an biometrics experimentalist inserts small plugs into the tear ducts in the corner of the lower eyelid, nearest the nose, where the tears normally collect and drain into the nasal passages. By blocking this duct, the patient's tears stay on the eye longer. There are several types of plugs, one of which does not touch the surface of the eyeball; these plugs are generally preferred. Treating other problems Fungal infections in the mouth Prescription medications are available to treat painful mouth lesions due to oral candidiasis (yeast infection); these include clotrimazole, nystatin elixir, miconazole gel, or amphotericin B lozenges. Patients who wear dentures and develop an infection should disinfect the dentures overnight while being treated. The soak should include nystatin powder or 0.2 percent chlorhexidine solution to prevent reinfection. Dry nose It is important to treat nasal dryness or stuffiness because blocked nasal passages can increase mouth breathing and worsen dry mouth. Saline nasal sprays are available in most drugstores. Other cause of nasal blockage, including allergy or sinus infection, should be treated promptly. (See Patient information: Rhinitis). Blepharitis (eyelid inflammation) Blepharitis causes symptoms that are similar to those of dry eye (swollen lids and redness of the inside of the lids). Gently washing the skin of the eyelids can relieve blepharitis. This can be done with a warm wet washcloth and a small amount of no tears shampoo. With the eyes closed, the excess debris should be rubbed from the inner eye to the outer eye area. Dryness in other areas Patients with SS may have dryness in other areas, including the lips, skin, and the vagina. Dry lips may require petroleum jelly or lip salves. Dry skin usually improves with frequent and liberal use of a moisturizing cream or ointment. Some women with SS have difficulty with vaginal dryness, especially after menopause. There are several products specifically designed for vaginal dryness, including vaginal moisturizers, estrogen cream, vitamin E oil, and lubricants for use with sexual intercourse; a healthcare provider should be consulted for specific recommendations. FIBROMYALGIA PATIENT INSTRUCTIONS Fibromyalgia syndrome or FMS is a painful, uncomfortable, unpleasant, but otherwise benign disease. This means that it is not life-threatening. The pain of fibromyalgia usually consists of diffuse aching or burning in both the upper and lower body on both the right and left sides. It can change location and there can be sensations of pins and needles or dysesthesia in the arms and legs as well. There are a host of symptoms often associated with fibromyalgia including stiffness of the muscles, increased headaches or facial pain, sleep disturbances, gastrointestinal complaints, such as constipation and/or diarrhea and/or cramping known as irritable bowel syndrome or IBS, frequent urinary bladder symptoms including increased frequency or increased urgency among others. Numerous other signs and symptoms have been described including temperature sensitivity, nagging skin complaints, recurrent chest pains, a feeling of imbalance or dysequilibrium and a sensation of restless legs . Importantly, about three-quarters of patients with fibromyalgia also have signs and symptoms consistent with chronic fatigue syndrome or CFS. This is a sense of excessive fatigability with non-restorative sleep that can often be brought on by minor exertion. Seventy-five percent of other patients experience either a past history or a current bout of depression, anxiety or panic. Collectively this is a complex disorder, but one afflicted with fibromyalgia and/or chronic fatigue syndrome must remember that these symptoms are real, they are not psychological and they are in no way the patient s fault. There is no simple cure for chronic fatigue syndrome or fibromyalgia, but the encouraging news is that the symptoms are, for the most part, reversible. The sobering reality is that there is no quick fix. The treatment program for fibromyalgia consists of multiple modalities. Those treatments that have been shown to be most effective include graded low intensity exercise such as a walking program or an aquatics program and cognitive behavioral therapy which helps people adapt to their symptoms. If there is any history of depression, anxiety or panic, formal assessment and treatment of these by a trained mental health professional is also vital. Frequently, anti-depressants are also used in patients without any history of depression to take advantage of their ability to modify pain, fatigue and mental confusion. Medications frequently used include those to help correct sleep, such as low dose antidepressants or non-habit forming sedatives and mild analgesics, such as Tylenol, nonsteroidal anti-inflammatory drugs, such as ibuprofen or more potent analgesics, such as tramadol (Ultracet). Therapy must be highly individualized. In virtually every major [facility] area, the [employer] is engaged in a fibromyalgia self-help program and can also direct patients with various forms of rheumatism to active aquatic classes. We encourage contacting the [employer] for proactive involvement. Most signs and symptoms of fibromyalgia can be managed by primary care physicians under the guidance of a specialist. Further information can be obtained from the National Fibromyalgia Partnership Website at www.fmpartnership.org. documented in this encounter [facility] 12-30-2021 History of Present illness Narrative [facility] VISIT This Team Access Model visit is a phone encounter. It required patient-provider interaction for the medical decision making as documented below. 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 Having a flare for awhile now Hands and elbows swollen, right bicep, feet, knee R Pain 9/10 Am stiffness taking excedrin migraine- was told to take for back pain not helping 2 middle fingers on right cramping,locking intermittent stretches mis out Blood sugars elevated endo told her not to take pred pcp increase metoprolol for irr hr Due to schedule with cardio Has not started rinvoq Off humria 1.5 months Taking ssz mtx 1ml weekly arava 20mg daily Folic acid pred for flares- has not taken Gabapentin Vit d 500 international unit(s) daily Review of Systems CONSTITUTION: Negative for: Fever and Recent weight change HEENT: Positive for: Dry mouth (with meds) Negative for: Mouth sores and Trouble swallowing RESPIRATORY: Positive for: Cough and Shortness of breath Following with pulm new inhaler GASTROINTESTINAL: Negative for: Diarrhea, Heartburn and Abdominal pain MUSCULOSKELETAL: Positive for: Arthralgias, Myalgias, Joint swelling and Morning Joint Stiffness Negative for: Muscle weakness NEUROLOGICAL: Positive for: Headaches (not new ) and Memory loss (more forgetful- seeing pcp for this) Negative for: Numbness SKIN: Negative for: Rash, Sun Sensitive Rash, Skin changes, Hair loss and Nail changes EYES: Positive for: Eye dryness (has eye drops) Negative for: Eye pain, Eye redness and visual disturbance CARDIOVASCULAR: Positive for: Chest pain (r side chest under breast - will call pcp- burning sensations , no rash, ) Negative for: Leg swelling GENITOURINARY: Negative for: Dysuria HEMATOLOGIC/LYMPHATIC: Negative for: Swollen glands - medical history - medications - allergies - family history - social history - radiology - tests Full details in patient's emr chart Additional pertinent test results reviewed Pertinent imaging scans/films reviewed PHYSICAL EXAMINATION: Phone visit ASSESSMENT: M05.79 Rheumatoid arthritis of multiple sites without organ or system involvement with positive rheumatoid factor (HCC) (primary encounter diagnosis) M25.521, M25.522 Bilateral elbow joint pain M79.7 Fibromyalgia M19.031, M19.032 Primary osteoarthritis of both wrists M65.9 Synovitis of hand Z79.899 Long-term use of high-risk medication M25.60 Joint stiffness of multiple sites M79.641, M79.642 Bilateral hand pain Per Dr. 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, sister-lupus) with PMH:DM, s/p partial thyroidectomy, thyroid polyps, htn, hyperlipidemia, exertional asthma, gerd, FRANCOIS 1991 fibroids, fell downstairs R wrist fx 2001, s/p R knee scope 1999 presents with dx'd RA since 24y/o with joint pain from R elbow, hands, knees, feet pain/swelling, DJD/osteophytes on knee xrays, erosions on hand xrays, hx RF+ CCP+, elevated lfts, RA nodules, now with neck/L shoulder/hip pain in the last few weeks, extended AM stiffness, has findings consistent with seropositive erosive RA, cervical/shoulder pain, fibromyalgia, s/p R TKR 10/21/14 after septic arthritis 09/2014, here flare of RA of all joints R>L side after UTI/constipation from antibiotics, then had R buttocks/RLE shingles 2015, history of multiple UTIs/hospital admissions for lung infection & dehydration 2016, diagnosed with dry eye syndrome at eye exam, here with myalgias, polyarthritis, decreased joint swelling, but polyarthralgias, off xeljanz due to cost. Last dose of methotrexate Monday. R elbow injection from ortho 2months ago with 1day relief. Future surgery of R elbow and R wrist fusion may require her to change future occupation due to limited heavy lifting,feeling 90% better with humira and rheum meds. One asthma flare since last office visit. methotrextae once every week. Tolerating daily arava/ssz. Still has R 4th/5th numbness, ortho will improve 1year after elbow surgery/ulnar nerve (5months ago). 5lb weight restriction with arm after surgery for life. in 10/13/19 Dr Almanzar is admitting pt to hospital in [place] to debride wound she has on her left elbow. Was in ED 10/12/19 for nonhealing LUE wound/now healed. Developed on LUE hematoma. H2ad EMG hematoma pressing on nerve. Still numbness and tingling L 4th/5th fingers, R hand/elbow better with elbow//ulnar entrapment release surgery 10/2019. But L 4th/5th fingerpain since 3elbow/ulnar entrapment release surgeries 09/2019 last on 04/2020. Saw neurology, severe L hand nerve impairment. Better with voltaren gel. still on humira, methotrexate, gabapentin 9tabs once a week. worsening R buttock pain down RLE x 4months. Found to have severe L5-S1 pain with nerve root impingement.Saw pain clinic and on lidocaine 5%. s/p L5/S1 surgery 01/2021 with less pain in RLE. But had R foot numbness. Had infection from incision. Treated with antibiotics x 2weeks. trouble breathing, passed out in shower, went to hospital 05/11/21, had cardiac work up, treated with IV steroids which improved her breathing. found a lump on upper back, due to see surgery. Had [employer] COVID vaccines 07/01/21, 07/22/21. wants to return to [facility] since it did not cause lung issues vs humira/worsens breathing/asthma. More joint pain if stretching humira to every 3weeks. Still taking gabapentin. Reports pain 05/11. Moderate AM stiffness several hours. Nodule on L elbow. Numbness and tingling of 4th/5th fingers after L elbow surgery. Had BMD in [facility]. Feels safe at home. Has enough food, supplies and medications. Overall mildly uncomfortable but happy with rheum care = supportive care, see pain clinic for assisted pain recommendations/due for back injections, see neurosurgeon/due for possible L5-S1 surgery if BMD stable, improved with prednisone/take for flares morgan, follow up with UE/hand ortho/postponing R shoulder/wrist surgeries, 40mg kenalog IM 09/16/15, f/u with GI for GI issues eval, improved with xeljanz OFF due to cost/restart when affordable, see ortho s/p R TKR, f/u hand ortho for arm/elbow/wrist care and for trigger finger injection if needed again, neurontin 300mg 3times a day and increase if necessary, no lyrica (no response), improved with humira but worsens asthma/patient requests to switch back to xeljanz if approved, continue sq 1ml once every other week injections methotrexate (HOLD 1-2weeks after vaccines), ssz 500mg 3times a day, daily arava, OFF plaquenil, prozac and f/u with PCP for adjustment, nightly and prn wrist splints, PT exercises for contractures, eyedrops per ophthalmology, answered all questions and concerns-patient voiced understanding. 12/28/21 low potassium 3.3;high esr 30 (44), glucose 339 (480);NL rest of cbc, cmp, vitamin [id number], vitamin D 31.5;negative hepatitis panel except +hepB surface AB The result suggests either current or past infection with Hepatitis B virus. Non-specific reactivity may at times be seen with this test due to some underlying phenomena. Please correlate with HBsAg result and medical history. 11/10/21 note : here with COPD. Dyspnea on exertion and productie cough while symptoms do not include wheezing. Improving. HRCT 11/03/21. Started on relegy last visit and breathing has improved. holtern monitor test was abnormal and will see cardiology. 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 Etiology unclear at this time. Secondary to diastolic dysfunction. HRCT 11/03/21 mild bronchiectasis. Otherwise unremarkable lungs. 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 Alignment is satisfactory. No fracture. Some increased radiolucency at the interface of the distal humerus humerus and proximal ulnar component.. No gross soft tissue swelling. At todays visit follow up for rheumatoid arthritis/ degenerative joint disease/joint pain is active. Taking SSZ, arava, and mtx . Off humira due to insurance. Waiting for delivery of rinvoq to arrive next week . Takes pred for flares, no recently. Taking excedrin and gabapentin for pain. Patient notes swelling in Hands and elbows swollen, right bicep, feet, knee R, pain 9/10 and am stiffness. I advised patient ok to take pred for flare if ok with endo. Following with endo for blood sugars. Following with pulm. Discussed OTC pain cream, and pain patches, heat/ ice. Patient is agreeable to this plan of care. PLAN: Labs due March 2022- vit d , crp, sed, cbc. cmp May apply over the counter arthritis cream (biofreeze, icy hot, asper cream, tiger balm, capsacin, etc.) to painful joints up to four times a day. Avoid contact with eyes. May take ES acetaminophen 500mg every 4-6hours for joint pain. Do not exceed 2000mg /day. Increase calcium intake Increase potassium intake Methotrexate 1ml sq injection food every other a week (HOLD 1-2weeks after vaccines) Do not drink alcohol while taking methotrexate Have bloodwork every 8-12weeks for monitoring while taking Methotrexate Please take folic acid 1mg tab:Take 1tab by mouth daily OFF Hydroxychloroquine/Plaquenil SSZ 500mg tab 3times a day off humira arava/leflunamide daily with food hold methotrexate/humira/arava if on antibiotics or if you have any signs/symptoms of infection. wear wrist splints at night and as needed for carpal tunnel syndrome may take prednisone for flares No NSAIDs (ex. motrin, etc.)on pred. eyedrops as instructed No response lyrica gabapentin/neurontin 300mg 3tab 3times a day see hand ortho for trigger finger injection/release/hand/wrist/elbo w pain nonfasting bloodwork as scheduled I spent a total of 20 minutes on the date of the service which included preparing to see the patient, completing clinical documentation, obtaining and/or reviewing separately obtained history, performing a medically appropriate examination, counseling and educating the patient/family/caregiver, ordering medications, tests, or procedures, communicating with other HCPs (not separately reported) and independently interpreting results (not separately reported). FU visit: 4-6 months Portions of this note have been copied from my previous note and have been updated to reflect today's visit note December 30, 2021, all reflect current medical decision making from date of this visit. The patient follows with their Primary care physician for their other health management Recommendations to share with Primary care physician: Dear Dr. Fermin: I had the pleasure of seeing your patient, Elsa Catalan. I have enclosed a copy of my clinic note with my assessment and recommendations for this patient. -Continuous follow up with Primary care physician for cardiovascular disease prevention, for age appropriate cancer screening and routine health maintenance and wellness, and infection precautions and age appropriate immunization recommended. -I have advised on wellness and the whole plant based diet, as they have been shown to prevent and reverse hear disease, prevent and treat diabetes mellitus II, decrease risk of CV disease, diabetes, metabolic syndrome, HTN, hyperlipidemia, obesity, bone loss, certain auto-immune, inflammatory, skin disorders, certain cancers, macular degeneration, certain degenerative disorders, multiple other chronic health disorders, and be in favor of general health and wellness. Thank you for allowing me to participate in the care of your patient. Janel Chi APRN.[employer] cc Pretty Fermin MD, MD Patient Instructions May apply over the counter arthritis cream (biofreeze, icy hot, asper cream, tiger balm, capsacin, etc.) to painful joints up to four times a day. Avoid contact with eyes. May take ES acetaminophen 500mg every 4-6hours for joint pain. Do not exceed 2000mg /day. Increase calcium intake Methotrexate 1ml sq injection food every other a week (HOLD 1-2weeks after vaccines) Do not drink alcohol while taking methotrexate Have bloodwork every 8-12weeks for monitoring while taking Methotrexate Please take folic acid 1mg tab:Take 1tab by mouth daily OFF Hydroxychloroquine/Plaquenil SSZ 500mg tab 3times a day off humira arava/leflunamide daily with food hold methotrexate/humira/arava if on antibiotics or if you have any signs/symptoms of infection. wear wrist splints at night and as needed for carpal tunnel syndrome may take prednisone for flares No NSAIDs (ex. motrin, etc.)on pred. eyedrops as instructed No response lyrica gabapentin/neurontin 300mg 3tab 3times a day see hand ortho for trigger finger injection/release/hand/wrist/elbo w pain nonfasting bloodwork as scheduled Thank you. Moisturizing treatments Stimulating saliva Simply sucking on sugarless candy or dried fruit slices (eg, peaches or nectarines) can stimulate the flow of saliva in many patients. [place] flavored sugarless tablets and sugar-free chewing gum may also be helpful. In some patients, medications such as pilocarpine or cevimeline are given to increase saliva production. Replacing secretions in the mouth Sipping on water throughout the day is an easy and effective treatment of dry mouth for many patients. The water does not have to be swallowed. It can be rinsed around the mouth and then spit out. If this is not effective, an artificial saliva product (spray or lozenge) may be helpful. If painful gums are a problem, a gel that relieves dry mouth (such as Oral Balance) can be helpful. Avoiding cavities Patients with SS are at increased risk for dental cavities. SS patients should perform careful dental hygiene, ideally brushing and dental flossing after eating meals and snacks. Patients should visit their dentist at least every six months. Toothpaste designed specifically for patients with dry mouth is available (eg, Biotene , Orajel ). These lack the detergents that are present in many types of toothpaste, which can irritate a dry mouth. Toothbrushes with special features that help clean between the teeth and electric toothbrushes may also help to keep the teeth clean. Patients should use a toothpaste with fluoride or a special fluoride rinse or varnish. We recommend a fluoride treatment with a dentist or dental hygienist after each cleaning. Since the dentist may not stock this treatment, patients should contact the dental office prior to the appointment. Dry eye Use of a humidifier or moist washcloth over the eyes may provide some relief for dry eyes. Most patients also use an artificial tear drop. Many different solutions are available; a clinician can recommend an appropriate choice based on an individual's pattern of dryness and fluid production in the eye. Some patients are sensitive to the preservatives found in artificial tear preparations. If burning or itching occurs, a brand with a non-irritating preservative may be tried. Alternately, a preservative-free variety can be used. Eye drops without preservative come in small, single-dose containers that may be hard for some people with joint and/or vision problems. A prescription eye drop containing cyclosporine is also available (Restasis ). Some patients use an eye ointment at night. It is important to use only about 1/8 (3 mm) of the ointment because overuse can block the ducts and lead to a condition called blepharitis (see Blepharitis (eyelid inflammation) below). Preserving natural tears Various measures can be used to preserve a patient's own tears. Rueda can be fitted on the sides of glasses, helping to protect the eye from air and wind, reducing evaporation of tears. Goggles or wrap-around sunglasses serve a similar function. Another approach is a simple surgical procedure called punctal occlusion. In this procedure, an biometrics experimentalist inserts small plugs into the tear ducts in the corner of the lower eyelid, nearest the nose, where the tears normally collect and drain into the nasal passages. By blocking this duct, the patient's tears stay on the eye longer. There are several types of plugs, one of which does not touch the surface of the eyeball; these plugs are generally preferred. Treating other problems Fungal infections in the mouth Prescription medications are available to treat painful mouth lesions due to oral candidiasis (yeast infection); these include clotrimazole, nystatin elixir, miconazole gel, or amphotericin B lozenges. Patients who wear dentures and develop an infection should disinfect the dentures overnight while being treated. The soak should include nystatin powder or 0.2 percent chlorhexidine solution to prevent reinfection. Dry nose It is important to treat nasal dryness or stuffiness because blocked nasal passages can increase mouth breathing and worsen dry mouth. Saline nasal sprays are available in most drugstores. Other cause of nasal blockage, including allergy or sinus infection, should be treated promptly. (See Patient information: Rhinitis). Blepharitis (eyelid inflammation) Blepharitis causes symptoms that are similar to those of dry eye (swollen lids and redness of the inside of the lids). Gently washing the skin of the eyelids can relieve blepharitis. This can be done with a warm wet washcloth and a small amount of no tears shampoo. With the eyes closed, the excess debris should be rubbed from the inner eye to the outer eye area. Dryness in other areas Patients with SS may have dryness in other areas, including the lips, skin, and the vagina. Dry lips may require petroleum jelly or lip salves. Dry skin usually improves with frequent and liberal use of a moisturizing cream or ointment. Some women with SS have difficulty with vaginal dryness, especially after menopause. There are several products specifically designed for vaginal dryness, including vaginal moisturizers, estrogen cream, vitamin E oil, and lubricants for use with sexual intercourse; a healthcare provider should be consulted for specific recommendations. FIBROMYALGIA PATIENT INSTRUCTIONS Fibromyalgia syndrome or FMS is a painful, uncomfortable, unpleasant, but otherwise benign disease. This means that it is not life-threatening. The pain of fibromyalgia usually consists of diffuse aching or burning in both the upper and lower body on both the right and left sides. It can change location and there can be sensations of pins and needles or dysesthesia in the arms and legs as well. There are a host of symptoms often associated with fibromyalgia including stiffness of the muscles, increased headaches or facial pain, sleep disturbances, gastrointestinal complaints, such as constipation and/or diarrhea and/or cramping known as irritable bowel syndrome or IBS, frequent urinary bladder symptoms including increased frequency or increased urgency among others. Numerous other signs and symptoms have been described including temperature sensitivity, nagging skin complaints, recurrent chest pains, a feeling of imbalance or dysequilibrium and a sensation of restless legs . Importantly, about three-quarters of patients with fibromyalgia also have signs and symptoms consistent with chronic fatigue syndrome or CFS. This is a sense of excessive fatigability with non-restorative sleep that can often be brought on by minor exertion. Seventy-five percent of other patients experience either a past history or a current bout of depression, anxiety or panic. Collectively this is a complex disorder, but one afflicted with fibromyalgia and/or chronic fatigue syndrome must remember that these symptoms are real, they are not psychological and they are in no way the patient s fault. There is no simple cure for chronic fatigue syndrome or fibromyalgia, but the encouraging news is that the symptoms are, for the most part, reversible. The sobering reality is that there is no quick fix. The treatment program for fibromyalgia consists of multiple modalities. Those treatments that have been shown to be most effective include graded low intensity exercise such as a walking program or an aquatics program and cognitive behavioral therapy which helps people adapt to their symptoms. If there is any history of depression, anxiety or panic, formal assessment and treatment of these by a trained mental health professional is also vital. Frequently, anti-depressants are also used in patients without any history of depression to take advantage of their ability to modify pain, fatigue and mental confusion. Medications frequently used include those to help correct sleep, such as low dose antidepressants or non-habit forming sedatives and mild analgesics, such as Tylenol, nonsteroidal anti-inflammatory drugs, such as ibuprofen or more potent analgesics, such as tramadol (Ultracet). Therapy must be highly individualized. In virtually every [facility] area, the [employer] is engaged in a fibromyalgia self-help program and can also direct patients with various forms of rheumatism to active aquatic classes. We encourage contacting the [employer] for proactive involvement. Most signs and symptoms of fibromyalgia can be managed by primary care physicians under the guidance of a specialist. Further information can be obtained from the [employer] Website at www.fmpartnership.org. May apply over the counter arthritis cream (biofreeze, icy hot, asper cream, tiger balm, capsacin, etc.) to painful joints up to four times a day. Avoid contact with eyes. May take ES acetaminophen 500mg every 4-6hours for joint pain. Do not exceed 2000mg /day. Increase calcium intake Methotrexate 1ml sq injection food every other a week (HOLD 1-2weeks after vaccines) Do not drink alcohol while taking methotrexate Have bloodwork every 8-12weeks for monitoring while taking Methotrexate Please take folic acid 1mg tab:Take 1tab by mouth daily OFF Hydroxychloroquine/Plaquenil SSZ 500mg tab 3times a day humira injection 40mg sq once every 1-2weeks if asthma stable arava/leflunamide daily with food hold methotrexate/humira/arava if on antibiotics or if you have any signs/symptoms of infection. wear wrist splints at night and as needed for carpal tunnel syndrome may take prednisone for flares No NSAIDs (ex. motrin, etc.)on pred. eyedrops as instructed No response lyrica gabapentin/neurontin 300mg 3tab 3times a day see hand ortho for trigger finger injection/release/hand/wrist/elbo w pain nonfasting bloodwork as scheduled Thank you. Moisturizing treatments Stimulating saliva Simply sucking on sugarless candy or dried fruit slices (eg, peaches or nectarines) can stimulate the flow of saliva in many patients. [place] flavored sugarless tablets and sugar-free chewing gum may also be helpful. In some patients, medications such as pilocarpine or cevimeline are given to increase saliva production. Replacing secretions in the mouth Sipping on water throughout the day is an easy and effective treatment of dry mouth for many patients. The water does not have to be swallowed. It can be rinsed around the mouth and then spit out. If this is not effective, an artificial saliva product (spray or lozenge) may be helpful. If painful gums are a problem, a gel that relieves dry mouth (such as Oral Balance) can be helpful. Avoiding cavities Patients with SS are at increased risk for dental cavities. SS patients should perform careful dental hygiene, ideally brushing and dental flossing after eating meals and snacks. Patients should visit their dentist at least every six months. Toothpaste designed specifically for patients with dry mouth is available (eg, Biotene , Orajel ). These lack the detergents that are present in many types of toothpaste, which can irritate a dry mouth. Toothbrushes with special features that help clean between the teeth and electric toothbrushes may also help to keep the teeth clean. Patients should use a toothpaste with fluoride or a special fluoride rinse or varnish. We recommend a fluoride treatment with a dentist or dental hygienist after each cleaning. Since the dentist may not stock this treatment, patients should contact the dental office prior to the appointment. Dry eye Use of a humidifier or moist washcloth over the eyes may provide some relief for dry eyes. Most patients also use an artificial tear drop. Many different solutions are available; a clinician can recommend an appropriate choice based on an individual's pattern of dryness and fluid production in the eye. Some patients are sensitive to the preservatives found in artificial tear preparations. If burning or itching occurs, a brand with a non-irritating preservative may be tried. Alternately, a preservative-free variety can be used. Eye drops without preservative come in small, single-dose containers that may be hard for some people with joint and/or vision problems. A prescription eye drop containing cyclosporine is also available (Restasis ). Some patients use an eye ointment at night. It is important to use only about 1/8 (3 mm) of the ointment because overuse can block the ducts and lead to a condition called blepharitis (see Blepharitis (eyelid inflammation) below). Preserving natural tears Various measures can be used to preserve a patient's own tears. Rueda can be fitted on the sides of glasses, helping to protect the eye from air and wind, reducing evaporation of tears. Goggles or wrap-around sunglasses serve a similar function. Another approach is a simple surgical procedure called punctal occlusion. In this procedure, an biometrics experimentalist inserts small plugs into the tear ducts in the corner of the lower eyelid, nearest the nose, where the tears normally collect and drain into the nasal passages. By blocking this duct, the patient's tears stay on the eye longer. There are several types of plugs, one of which does not touch the surface of the eyeball; these plugs are generally preferred. Treating other problems Fungal infections in the mouth Prescription medications are available to treat painful mouth lesions due to oral candidiasis (yeast infection); these include clotrimazole, nystatin elixir, miconazole gel, or amphotericin B lozenges. Patients who wear dentures and develop an infection should disinfect the dentures overnight while being treated. The soak should include nystatin powder or 0.2 percent chlorhexidine solution to prevent reinfection. Dry nose It is important to treat nasal dryness or stuffiness because blocked nasal passages can increase mouth breathing and worsen dry mouth. Saline nasal sprays are available in most drugstores. Other cause of nasal blockage, including allergy or sinus infection, should be treated promptly. (See Patient information: Rhinitis). Blepharitis (eyelid inflammation) Blepharitis causes symptoms that are similar to those of dry eye (swollen lids and redness of the inside of the lids). Gently washing the skin of the eyelids can relieve blepharitis. This can be done with a warm wet washcloth and a small amount of no tears shampoo. With the eyes closed, the excess debris should be rubbed from the inner eye to the outer eye area. Dryness in other areas Patients with SS may have dryness in other areas, including the lips, skin, and the vagina. Dry lips may require petroleum jelly or lip salves. Dry skin usually improves with frequent and liberal use of a moisturizing cream or ointment. Some women with SS have difficulty with vaginal dryness, especially after menopause. There are several products specifically designed for vaginal dryness, including vaginal moisturizers, estrogen cream, vitamin E oil, and lubricants for use with sexual intercourse; a healthcare provider should be consulted for specific recommendations. FIBROMYALGIA PATIENT INSTRUCTIONS Fibromyalgia syndrome or FMS is a painful, uncomfortable, unpleasant, but otherwise benign disease. This means that it is not life-threatening. The pain of fibromyalgia usually consists of diffuse aching or burning in both the upper and lower body on both the right and left sides. It can change location and there can be sensations of pins and needles or dysesthesia in the arms and legs as well. There are a host of symptoms often associated with fibromyalgia including stiffness of the muscles, increased headaches or facial pain, sleep disturbances, gastrointestinal complaints, such as constipation and/or diarrhea and/or cramping known as irritable bowel syndrome or IBS, frequent urinary bladder symptoms including increased frequency or increased urgency among others. Numerous other signs and symptoms have been described including temperature sensitivity, nagging skin complaints, recurrent chest pains, a feeling of imbalance or dysequilibrium and a sensation of restless legs . Importantly, about three-quarters of patients with fibromyalgia also have signs and symptoms consistent with chronic fatigue syndrome or CFS. This is a sense of excessive fatigability with non-restorative sleep that can often be brought on by minor exertion. Seventy-five percent of other patients experience either a past history or a current bout of depression, anxiety or panic. Collectively this is a complex disorder, but one afflicted with fibromyalgia and/or chronic fatigue syndrome must remember that these symptoms are real, they are not psychological and they are in no way the patient s fault. There is no simple cure for chronic fatigue syndrome or fibromyalgia, but the encouraging news is that the symptoms are, for the most part, reversible. The sobering reality is that there is no quick fix. The treatment program for fibromyalgia consists of multiple modalities. Those treatments that have been shown to be most effective include graded low intensity exercise such as a walking program or an aquatics program and cognitive behavioral therapy which helps people adapt to their symptoms. If there is any history of depression, anxiety or panic, formal assessment and treatment of these by a trained mental health professional is also vital. Frequently, anti-depressants are also used in patients without any history of depression to take advantage of their ability to modify pain, fatigue and mental confusion. Medications frequently used include those to help correct sleep, such as low dose antidepressants or non-habit forming sedatives and mild analgesics, such as Tylenol, nonsteroidal anti-inflammatory drugs, such as ibuprofen or more potent analgesics, such as tramadol (Ultracet). Therapy must be highly individualized. In virtually every [facility] area, the [employer] is engaged in a fibromyalgia self-help program and can also direct patients with various forms of rheumatism to active aquatic classes. We encourage contacting the [employer] for proactive involvement. Most signs and symptoms of fibromyalgia can be managed by primary care physicians under the guidance of a specialist. Further information can be obtained from the [employer] Website at www.fmpartnership.org. PAST MEDICAL HISTORY Diagnosis Date Diabetes mellitus type II Fibromyalgia Herpes zoster without complication 2015 High cholesterol Recurrent UTI Reflux Rheumatoid arthritis(714.0) Seasonal allergies Staphylococcal arthritis of right knee (HCC) 2013 PAST SURGICAL HISTORY Procedure Laterality Date PAST SURGICAL HISTORY OF 1991 hysterectomy PAST SURGICAL HISTORY OF remote thyroidectomy 12 yrs ago PAST SURGICAL HISTORY OF remote right elbow and right knee arthroscopic surgery Social History Tobacco Use Smoking status: Never Smoker Smokeless tobacco: Never Used Substance Use Topics Alcohol use: No Drug use: No FAMILY HISTORY Problem Relation Age of Onset Ischemic Heart Disease Mother heart attack- age 84 Ischemic Heart Disease Father heart attack - age 63 Systemic Lupus Erythematosus Sister ALLERGIES Allergen Reactions Ciprofloxacin Rash Anesthetics [Other] problems awakening & gi upset with general Indomethacin (Indocin) extremely high temperature elevation Penicillin G rash Propoxyphene pt. not sure Current Outpatient Medications Medication Sig gabapentin (NEURONTIN) 300 mg capsule Take 10caps divided throughout the day, take by mouth upadacitinib (RINVOQ) Tb24 tablet Take 1 tablet (15 mg) by mouth once daily. Swallow whole; DO NOT crush, chew, or open. Hold if on antibiotics or ill. Hold 1weeks after vaccines. methotrexate sodium 25 mg/mL soln Sq 1ml injection once a week. No alcohol. Hold if on antibiotics or ill. sulfaSALAzine EC (AZULFIDINE EN-TABS) 500 mg EC tablet Take 1 tablet by mouth three times daily. leflunomide (ARAVA) 20 mg tablet Take 1tab daily by mouth with food. Hold in on antibiotics or ill. Syringe with Needle, Disp, (BD SYRINGE) 1 mL 25 gauge x 5/8 To use with Methotrexate Sodium injection. 1ml weekly SQ folic acid 1 mg tablet Take 2 tablets by mouth once daily. predniSONE (DELTASONE) 5 mg tablet Day 1=6tabs with food, Day 2=5tabs, Day 3=4tabs, Day 4=3tabs, Day 5=2tabs, Day 6=1tab daily thereafter, No NSAIDs on med methocarbamol (ROBAXIN-750) 750 mg tablet Take 1 tablet by mouth four times daily as needed (muscle spasm/pain). docusate sodium (COLACE) 100 mg capsule Take 1 capsule by mouth twice daily as needed for constipation. VITAMIN E ORAL Take by mouth. simvastatin (ZOCOR) 20 mg tablet Take 20 mg by mouth once daily. metoprolol succinate ER (TOPROL XL) 25 mg 24 hr tablet Take 25 mg by mouth once daily. cloNIDine HCl (CATAPRES) 0.1 mg tablet Take 0.1 mg by mouth twice daily. lidocaine (LIDODERM) 5 % apply 1 patch to the aRM once daily IN THE AFTERNOON levothyroxine (SYNTHROID) 50 mcg tablet take 1 tablet by mouth once daily ALONG WITH 200 MG TABLET FOR TOTAL OF 250 MG levothyroxine (SYNTHROID) 200 mcg tablet Take 200 mcg by mouth once daily. JARDIANCE 25 mg tablet Take 25 mg by mouth once daily. VENTOLIN HFA 90 mcg/actuation inhaler inhale 2 puffs by mouth and INTO THE LUNGS every 4 hours if needed insulin aspart U-100 (NOVOLOG) 100 unit/mL Inject subcutaneously. insulin glargine (LANTUS SOLOSTAR, BASAGLAR KWIKPEN) 100 unit/mL (3 mL) Inject 50 Units subcutaneously. irbesartan (AVAPRO) 150 mg tablet Take 150 mg by mouth once daily. FLUoxetine (PROZAC) 20 mg capsule Take 1 capsule by mouth once daily. insulin needles, DISPOSABLE, (BD INSULIN PEN NEEDLE UF) 31 gauge x 5/16 ndle Substitute equivalent syringe/needles for weekly sq methotrexate Cholecalciferol, Vitamin D3, 5,000 unit Tab Take 1 tablet by mouth once daily. No current facility-administered medications for this visit. RELEVANT PREVIOUS INVESTIGATIONS: Calcium Date Value Ref Range Status 07/26/2021 8.7 8.5 - 10.2 mg/dL Final 03/15/2021 7.8 (L) 8.5 - 10.2 mg/dL Final 12/10/2020 8.7 8.5 - 10.2 mg/dL Final Calcium, Total Date Value Ref Range Status 12/28/2021 9.1 8.5 - 10.2 mg/dL Final Alkaline Phosphatase Date Value Ref Range Status 12/28/2021 81 34 - 123 U/L Final 07/26/2021 75 34 - 123 U/L Final 12/10/2020 75 34 - 123 U/L Final 07/13/2020 81 34 - 123 U/L Final TSH Date Value Ref Range Status 11/09/2009 1.440 0.340 - 4.820 uU/mL Final 03/09/2007 1.390 0.400 - 5.500 uU/mL Final Vitamin D 25 Hydroxy Date Value Ref Range Status 12/28/2021 31.5 31.0 - 80.0 ng/mL Final Comment: Classification of 25 [place] Vitamin D status: Deficiency/Insufficiency: < or = 30 ng/ml. Sufficiency/Optimal Levels: 31-80 ng/mL Toxicity: > 100 ng/mL. Test performed by chemiluminescent immunoassay. 07/26/2021 36.7 31.0 - 80.0 ng/mL Final Comment: Classification of 25 [place] Vitamin D status: Insufficiency/Moderate Deficiency: < or = 30 ng/mL Sufficiency/Optimal Levels: 31 to 80 ng/mL Toxicity: > 100 ng/mL Test performed by chemiluminescent immunoassay. 12/10/2020 42.5 31.0 - 80.0 ng/mL Final Comment: Classification of 25 [place] Vitamin D status: Insufficiency/Moderate Deficiency: < or = 30 ng/mL Sufficiency/Optimal Levels: 31 to 80 ng/mL Toxicity: > 100 ng/mL Test performed by chemiluminescent immunoassay. 07/13/2020 32.0 31.0 - 80.0 ng/mL Final Comment: Classification of 25 [place] Vitamin D status: Insufficiency/Moderate Deficiency: < or = 30 ng/mL Sufficiency/Optimal Levels: 31 to 80 ng/mL Toxicity: > 100 ng/mL Test performed by chemiluminescent immunoassay. Creatinine Date Value Ref Range Status 12/28/2021 0.66 0.58 - 0.96 mg/dL Final 07/26/2021 0.56 (L) 0.58 - 0.96 mg/dL Final 03/15/2021 0.49 (L) 0.58 - 0.96 mg/dL Final 12/10/2020 0.50 (L) 0.58 - 0.96 mg/dL Final Protein, Total Date Value Ref Range Status 12/28/2021 8.3 (H) 6.3 - 8.0 g/dL Final 07/26/2021 8.3 (H) 6.3 - 8.0 g/dL Final 12/10/2020 8.0 6.3 - 8.0 g/dL Final 07/13/2020 8.3 (H) 6.3 - 8.0 g/dL Final Albumin Date Value Ref Range Status 12/28/2021 4.3 3.9 - 4.9 g/dL Final 07/26/2021 4.1 3.9 - 4.9 g/dL Final 12/10/2020 4.4 3.9 - 4.9 g/dL Final 07/13/2020 4.3 3.9 - 4.9 g/dL Final Alpha 1 Globulin Date Value Ref Range Status 08/02/2002 0.20 0.08 - 0.22 gm/dL Final Alpha 2 Globulin Date Value Ref Range Status 08/02/2002 0.84 0.50 - 0.90 gm/dL Final Beta Globulin Date Value Ref Range Status 08/02/2002 0.82 0.50 - 1.00 gm/dL Final Gamma Globulin Date Value Ref Range Status 08/02/2002 1.18 0.60 - 1.35 gm/dL Final Interpretation (Prot Electro) Date Value Ref Range Status 08/02/2002 Normal electrophoretic pattern. Final MPA IgA, Serum Date Value Ref Range Status 02/18/2011 809 (H) 78 - 391 mg/dL Final MPA IgG, Serum Date Value Ref Range Status 02/18/2011 1240 717 - 1411 mg/dL Final MPA IgM, Serum Date Value Ref Range Status 02/18/2011 104 53 - 334 mg/dL Final MPA [place], Serum Date Value Ref Range Status 02/18/2011 1190 534 - 1267 mg/dL Final MPA Lambda, Serum Date Value Ref Range Status 02/18/2011 675 (H) 253 - 653 mg/dL Final MPA [place]/Lambda Ratio Date Value Ref Range Status 02/18/2011 1.76 1 - 3 Final Interpretation (MPA) Date Value Ref Range Status 02/18/2011 Final PROTEIN ELECTROPHORESIS: No M-protein band is identified. IMMUNOFIXATION ELECTROPHORESIS: No abnormal bands are detected. INTERPRETATION: No evidence of monoclonal gammopathy. IgA Date Value Ref Range Status 11/12/2010 840 (H) 78 - 391 mg/dL Final Vitamin D 25 Hydroxy (ng/mL) Date Value 12/28/2021 31.5 07/26/2021 36.7 ] Calcium, Total Date Value Ref Range Status 12/28/2021 9.1 8.5 - 10.2 mg/dL Final Creatinine Date Value Ref Range Status 12/28/2021 0.66 0.58 - 0.96 mg/dL Final 07/26/2021 0.56 (L) 0.58 - 0.96 mg/dL Final 03/15/2021 0.49 (L) 0.58 - 0.96 mg/dL Final 12/10/2020 0.50 (L) 0.58 - 0.96 mg/dL Final Calcium, Total Date Value Ref Range Status 12/28/2021 9.1 8.5 - 10.2 mg/dL Final TSH Date Value Ref Range Status 11/09/2009 1.440 0.340 - 4.820 uU/mL Final CBC Latest Ref Rng & Units 03/16/2021 03/17/2021 07/26/2021 12/28/2021 WBC 3.70 - 11.00 k/uL 9.88 8.29 7.59 9.06 HEMOGLOBIN 11.5 - 15.5 g/dL 11.5 11.3(L) 12.9 14.0 HEMATOCRIT 36.0 - 46.0 % 34.5(L) 36.4 40.9 41.5 PLATELETS 150 - 400 k/uL 391 411(H) 319 292 ABS NEUT (ANC) 1.45 - 7.50 k/uL 5.54 4.32 - - ABS LYM 1.0 - 4.0 k/uL - - - - ABS LYMPH 1.00 - 4.00 k/uL 3.15 2.82 - - CMP Latest Ref Rng & Units 12/10/2020 03/15/2021 07/26/2021 12/28/2021 SODIUM 136 - 144 mmol/L 136 134(L) 134(L) 136 POTASSIUM 3.7 - 5.1 mmol/L 4.2 3.0(L) 3.8 3.3(L) CHLORIDE 97 - 105 mmol/L 99 97 97 96(L) CO2 22 - 30 mmol/L 24 25 23 28 GLUCOSE 74 - 99 mg/dL 455(H) 91 480(H) 339(H) BUN 7 - 21 mg/dL 17 6(L) 15 18 CREATININE 0.58 - 0.96 mg/dL 0.50(L) 0.49(L) 0.56(L) 0.66 CALCIUM, TOTAL 8.5 - 10.2 mg/dL 8.7 7.8(L) 8.7 9.1 AST 13 - 35 U/L 19 - 27 22 ALT 7 - 38 U/L 27 - 24 22 ALKALINE PHOSPHATASE 34 - 123 U/L 75 - 75 81 ESR, WSR Latest Ref Rng & Units 12/10/2020 03/15/2021 07/26/2021 12/28/2021 WSR 0 - 20 mm/hr 35(H) 2 44(H) 30(H) CRP Latest Ref Rng & Units 03/16/2021 03/17/2021 07/26/2021 12/28/2021 CRP <0.9 mg/dL 13.2(H) 11.7(H) 0.9(H) 0.7 CK Latest Ref Rng & Units 08/02/2002 05/08/2003 04/18/2012 CK 30 - 220 U/L 27(A) 43 51 RF and CCP Latest Ref Rng & Units 01/16/2006 CCP ANTIBODY, IGG Units 34 Hepatitis Screen Latest Ref Rng & Units 08/02/2002 11/12/2014 03/29/2016 12/28/2021 HEPBCOTOL Negative Negative Negative Negative Negative HEPSABQ Negative Positive(A) Positive(A) Positive(A) Positive(A) HEPCABEIA Negative Negative Negative Negative Negative HBSAG Negative - - - Negative HBSAGR Negative Negative Negative Negative - TB Screen Latest Ref Rng & Units 11/16/2016 07/17/2019 07/13/2020 12/10/2020 TBGINT - No evidence of current or previous infection with Mycobacterium tuberculosis. No evidence of current or previous infection with Mycobacterium tuberculosis. No evidence of current or previous infection with Mycobacterium tuberculosis. No evidence of current or previous infection with Mycobacterium tuberculosis. TBGRES Negative Negative Negative Negative Negative Antibodies Latest Ref Rng & Units 03/15/2021 PT SEC 9.7 - 13.0 sec 10.8 PT INR 0.9 - 1.3 1.0 PTT 23.0 - 32.4 sec 28.5 documented in this encounter [facility] 12-29-2021 Miscellaneous Notes Pt identified by name and Pt notified of below message and verbalizes understanding. Please Call patient if MyChart note not read to review results/released to My Chart if tests completed at [facility]: High glucose- care per primary care provider/endocrinology. Improved/mildly high inflammatory tests-will monitor. Low potassium- increase potassium intake, care per primary care provider. Rest of labs normal. Continue same daily vitamin D with food. Recheck nonfasting labs in 3months.The orders have been placed. Happy to further review and discuss at follow up office visit. Continue rest of treatment plan per instructions at last office visit. Thank you. 12/28/21 low potassium 3.3;high esr 30 (44), glucose 339 (480);NL rest of cbc, cmp, vitamin [id number], vitamin D 31.5;negative hepatitis panel except +hepB surface AB The result suggests either current or past infection with Hepatitis B virus. Non-specific reactivity may at times be seen with this test due to some underlying phenomena. Please correlate with HBsAg result and medical history. 11/10/21 note : here with COPD. Dyspnea on exertion and productie cough while symptoms do not include wheezing. Improving. HRCT 11/03/21. Started on relegy last visit and breathing has improved. holtern monitor test was abnormal and will see cardiology. 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 Etiology unclear at this time. Secondary to diastolic dysfunction. HRCT 11/03/21 mild bronchiectasis. Otherwise unremarkable lungs. 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 Alignment is satisfactory. No fracture. Some increased radiolucency at the interface of the distal humerus humerus and proximal ulnar component.. No gross soft tissue swelling. documented in this encounter [facility] Evaluation note Diagnosis Rheumatoid arthritis of multiple sites without organ or system involvement with positive rheumatoid factor (HCC)- Primary Elevated LFTs Other abnormal blood chemistry Anemia of chronic disease Anemia of other chronic disease Elevated sed rate Elevated sedimentation rate Elevated C-reactive protein (CRP) Vitamin D deficiency Unspecified vitamin D deficiency [facility] Rheumatoid arthritis of multiple sites without organ or system involvement with positive rheumatoid factor (HCC)- Primary Bilateral elbow joint pain Fibromyalgia Mylagia and myositis, unspecified Primary osteoarthritis of both wrists Synovitis of hand Other tenosynovitis of hand and wrist Long-term use of high-risk medication Joint stiffness of multiple sites Stiffness of joints, not elsewhere classified, multiple sites Bilateral hand pain Pain in limb [facility] Diagnosis Fibromyalgia Mylagia and myositis, unspecified Postherpetic neuralgia Herpes zoster with other nervous system complications Bilateral carpal tunnel syndrome Carpal tunnel syndrome [facility] Diagnosis Rheumatoid arthritis of multiple sites without organ or system involvement with positive rheumatoid factor (HCC) [facility] Rheumatoid arthritis of multiple sites without organ or system involvement with positive rheumatoid factor (HCC) [facility] Rheumatoid arthritis of multiple sites without organ or system involvement with positive rheumatoid factor (HCC)- Primary Elevated LFTs Other abnormal blood chemistry Anemia of chronic disease Anemia of other chronic disease Elevated sed rate Elevated sedimentation rate Elevated C-reactive protein (CRP) Vitamin D deficiency Unspecified vitamin D deficiency documented in this encounter [facility] note* Diagnosis Rheumatoid arthritis of multiple sites without organ or system involvement with positive rheumatoid factor (HCC)- Primary Elevated sed rate Elevated sedimentation rate Long-term use of high-risk medication Joint stiffness of multiple sites Stiffness of joints, not elsewhere classified, multiple sites Dry eye syndrome of both eyes Chronic pain of both shoulders Pain in joint, shoulder region Secondary osteoarthritis of multiple sites Osteoarthrosis involving, or with mention of more than one site, but not specified as generalized, multiple sites Osteopenia of multiple sites Bilateral hand pain Pain in limb Bilateral elbow joint pain Neck pain Cervicalgia Hip pain, bilateral Pain in joint, pelvic region and thigh Chronic bilateral low back pain with right-sided sciatica Elevated C-reactive protein (CRP) Vitamin D deficiency Unspecified vitamin D deficiency Elevated LFTs Other abnormal blood chemistry documented in this encounter [facility] note* Diagnosis Chronic elbow pain, left documented in this encounter [facility] note* Diagnosis Rheumatoid arthritis of multiple sites without organ or system involvement with positive rheumatoid factor (HCC)- Primary Elevated LFTs Other abnormal blood chemistry Anemia of chronic disease Anemia of other chronic disease Elevated sed rate Elevated sedimentation rate Elevated C-reactive protein (CRP) Vitamin D deficiency Unspecified vitamin D deficiency Vitamin B12 deficiency Other B-complex deficiencies Screening-pulmonary TB Screening examination for pulmonary tuberculosis documented in this encounter [facility] note* Diagnosis Rheumatoid arthritis of multiple sites without organ or system involvement with positive rheumatoid factor (HCC)- Primary Long-term use of high-risk medication Joint stiffness of multiple sites Stiffness of joints, not elsewhere classified, multiple sites Dry eye syndrome of both eyes Secondary osteoarthritis of multiple sites Osteoarthrosis involving, or with mention of more than one site, but not specified as generalized, multiple sites Osteopenia of multiple sites Bilateral hand pain Pain in limb Bilateral elbow joint pain Hip pain, bilateral Pain in joint, pelvic region and thigh Chronic bilateral low back pain with right-sided sciatica Synovitis of hand Other tenosynovitis of hand and wrist Bilateral wrist pain Pain in joint, forearm Chronic pain of both shoulders Pain in joint, shoulder region Neck pain Cervicalgia Fibromyalgia Mylagia and myositis, unspecified Abnormality of gait Elevated sed rate Elevated sedimentation rate Elevated C-reactive protein (CRP) Vitamin D deficiency Unspecified vitamin D deficiency documented in this encounter [facility] for referral (narrative)* Diagnostic Procedure Only (Routine) - Closed Specialty Diagnoses / Procedures Referred By Contac t Referred To Contact XR IMAGING Diagnoses Chronic elbow pain, left Procedures XR ELBOW GENERAL 2V AP/LAT LT X-RAY ELBOW AP/LATERAL Pepe Carter MD [address] [place] [address] Xr Imaging Referral ID Status Reason Start Date Expiration Date V isits Requested Visits Authorized Closed Auto-Generate d Referral 07/26/2021 08/25/2022 1 1 T [facility] for visit Narrative* Diagnostic Procedure Only (Routine) - Closed Specialty Diagnoses / Procedures Referred By Contac t Referred To Contact XR IMAGING Diagnoses Chronic elbow pain, left Procedures XR ELBOW GENERAL 2V AP/LAT LT X-RAY ELBOW AP/LATERAL Pepe Carter MD [address] [place] [address] Xr Imaging Referral ID Status Reason Start Date Expiration Date V isits Requested Visits Authorized Closed Auto-Generate d Referral 07/26/2021 08/25/2022 1 1 [facility] Summary Purpose Family History No Family History Records FoundNo Family History Records FoundNo Family History Records FoundNo Family History Records FoundNo Family History Records FoundNo Family History Records FoundNo Family History Records FoundNo Family History Records FoundNo Family History Records FoundNo Family History Records Found Advance Directives No Advanced Directives Records FoundDocuments on File Type Date Recorded Patient Manager Party 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 Advance Directives and Livin g Will 02/21/2019 11:35 AM Documents on File Type Date Recorded Patient Manager Party 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 Advance Directives and Livin g Will 02/27/2019 11:35 AM Latest Code Status on File Code Status Date Activated Date Inactivated Comments Full Code 02/27/2019 12:39 PM Documents on File Type Date Recorded Patient Manager Party 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 Advance Directives and Livin g Will 04/23/2019 2:22 PM Latest Code Status on File Code Status Date Activated Date Inactivated Comments Full Code 02/27/2019 12:39 PM Documents on File Type Date Recorded Patient Manager Party 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 Advance Directives and Livin g Will 09/04/2019 5:50 AM Latest Code Status on File Code Status Date Activated Date Inactivated Comments Full Code 09/04/2019 4:13 PM Full Code 02/27/2019 12:39 PM 09/04/2019 5:49 AM Documents on File Type Date Recorded Patient Manager Party 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 Advance Directives and Livin g Will 10/12/2019 1:17 PM Latest Code Status on File Code Status Date Activated Date Inactivated Comments Full Code 10/12/2019 4:09 PM Full Code 09/04/2019 4:13 PM 10/12/2019 12:47 PM Documents on File Type Date Recorded Patient Manager Party 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 Advance Directives and Livin g Will 04/01/2020 1:24 PM Latest Code Status on File Code Status Date Activated Date Inactivated Comments Full Code 10/12/2019 4:09 PM 04/08/2020 9:15 AM Documents on File Type Date Recorded Patient Manager Party 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 Advance Directives and Livin g Will 04/01/2020 1:24 PM Latest Code Status on File Code Status Date Activated Date Inactivated Comments Full Code 10/12/2019 4:09 PM 04/08/2020 9:15 AM Full Code 09/04/2019 4:13 PM 10/12/2019 12:47 PM Full Code 02/27/2019 12:39 PM 09/04/2019 5:49 AM Documents on File Type Date Recorded Patient Manager Party 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 Advance Directives and Livin g Will 09/04/2019 5:50 AM Latest Code Status on File Code Status Date Activated Date Inactivated Comments Full Code 09/04/2019 4:13 PM Documents on File Type Date Recorded Patient Manager Party 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 Advance Directives and Livin g Will 08/28/2019 12:58 PM Documents on File Type Date Recorded Patient Manager Party 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 Advance Directive(s) Advance Directive(s) 03/16/2021 12:22 PM Advance Directive(s) 03/15/2021 1:41 PM Advance Directive(s) 01/25/2021 2:47 PM Instructions * Patient Instructions* Sveta Silva, DO - 02/21/2019 12:46 PM EDT If your surgery date changes or you change your surgery date, please call us at [phone] TAKE YOUR BLOOD PRESSURE DAILY (EITHER WITH HOME BLOOD PRESSURE MONITOR OR WITH READINGS AT BLOOD PRESSURE MACHINES AT, E.G. PHARMACIES) AND CONTACT YOUR PRIMARY CARE PHYSICIAN IF YOUR SYSTOLIC (UPPER NUMBER) IS CONSISTENTLY GREATER THAN 140 OR DIASTOLIC (LOWER NUMBER) IS CONSISTENTLY GREATER THAN 90. Preoperative Medication Instructions In preparation for surgery please continue all of your current medications with the following changes: LeonElsa blanchard Home Medication Instructions Prior to Surgery RICKI:[id number] Printed on:02/21/19 8512 Medication Information Take last dose on Take the morning of surgery Comment(s) aspirin 81 MG EC tablet Take 81 mg by mouth every morning Reasons: treatment to prevent a heart attack. STOP NOW NO aspirin/acetaminophen/caffeine (EXCEDRIN EXTRA STRENGTH ORAL) Take by mouth as needed Reasons: Pain. STOP NOW NO cholecalciferol, vitamin D3, (VITAMIN D3 ORAL) Take by mouth every morning Reasons: Supp. NO folic acid (FOLVITE) 1 MG tablet Take 1 mg by mouth every morning Reasons: Supp. NO gabapentin (NEURONTIN) 300 MG capsule Take 300 mg by mouth 3 (three) times a day Reasons: Pain. YES LANTUS SOLOSTAR U-100 INSULIN 100 unit/mL (3 mL) InPn 50 Units nightly Reasons: type 2 diabetes mellitus. 25 UNITS PM PRIOR TO SURGERY leflunomide (ARAVA) 20 MG tablet Take 20 mg by mouth every morning Reasons: rheumatoid arthritis. YES lisinopril (PRINIVIL,ZESTRIL) 20 MG tablet Take 20 mg by mouth every morning Reasons: high blood pressure. NO metFORMIN (GLUCOPHAGE) 1000 MG tablet Take 1,000 mg by mouth 2 (two) times a day with meals Reasons: type 2 diabetes mellitus. NO methotrexate 25 mg/mL injection 50 mg once a week Reasons: rheumatoid arthritis, Monday. CONTINUE WHEN DUE predniSONE (DELTASONE) 5 MG tablet Take 5 mg by mouth every morning Reasons: RA. YES sulfaSALAzine (AZULFIDINE) 500 mg tablet Take 500 mg by mouth 4 (four) times a day Reasons: rheumatoid arthritis. YES SYNTHROID 175 mcg tablet Take 175 mcg by mouth every morning Reasons: hypothyroidism. NO TOPROL XL 25 mg 24 hr tablet Take 25 mg by mouth every morning Reasons: high blood pressure. YES STOP Aspirin (and medications that contain aspirin, such as [place], Pepto- Bismol, Anacin), antiinflammatory medications such as Advil, Motrin, Ibuprofen, Naproxen, Aleve, [place], Anacin, Diclofenac, Voltaren, Daypro, Etodolac, Ketoprofen, Piroxicam, Relafen, Nabumetone, etc. Also discontinue Vitamin C, Vitamin E, Flintstone-3 Fatty Acid, Fish Oil or Lovaza, and all herbal medications. Takelast dose on STOP NOW. Tylenol (acetaminophen) is acceptable, but be careful to follow the label directions and do not usewith other pain medications. It is acceptable to continue Magnesium, Potassium, Iron supplement, Vitamin D, Calcium, or Vitamin B if you were already taking them. On the morning of surgery, with as little water as possible, ONLY take the medications listed abovein the column Take the morning of surgery. If you are using Eye Drops or Inhalers, please bring them to the hospital. If you have sleep apnea and have a CPAP/BIPAP device, please bring it with you the day of surgery. documented in this encounter* Patient Instructions* Jackie Obrien RN - 04/23/2019 4:05 PM EDT The following Patient Instructions and Wound Care Orders are current as of this date. All previous orders/treatments should be discontinued. Wound Care Orders: Wound location: Right elbow Clean with vashe May shower but keep dressing dry and in place. Apply the following (OR EQUIVALENT): xeroform Cover with mepilex Leave in place for 7 days. To be changed in clinic. same dressing in clinic today Per Verbal Order Read Back High Blood Pressure: If your blood pressure taken today is above 150/95, please contact your primary care physician to get further instructions. If you experience the following emergent symptoms; chest pain, shortness ofbreath, headache, dizziness, vision changes, unusual and/or excessive sweating or nausea vomiting -call 911 or go to the nearest emergency room. Bleeding: If your wound was debrided and continues to bleed after your appointment, apply direct pressure to the wound with a clean cloth or dressing for 10-20 minutes. If the bleeding does not stop, call [facility] [phone] or go to the Emergency Room. Signs/Symptoms of Infection: If you have any fever, chills, nausea, vomiting or increased odor, drainage, pain or redness to thewound, call [facility] at [phone]. If after hours, contact your family physician or go to the Emergency Room. Tips You can do at Home to Help Heal Your Wound Diabetic Management: If you are diabetic, check your blood sugar every morning before eating. Keep your fasting blood sugar below 120. Keep regular appointments with your primary physician to monitor your diabetes. Follow your diabetic diet carefully. Skin Care: Use apply moisturizing lotion to dry, intact skin, avoid getting between the toes. Apply skin sealant or barrier to protect the skin from too much moisture. Inspect skin (including feet) daily for redness, blisters, rash, cracks, or open areas. Pressure Relief Instructions: Keep weight and pressure off your wound(s) and bony areas of the body (for example, heels, tail bone, hip, elbows, back of head). Reposition as instructed. Shift position in chair every 15 minutes.Turn every 2 hours while lying down. Diet: Increase the lean protein in your diet. Examples of foods high in protein are lean cuts of meat, fish, dairy foods, peanut butter and eggs. Use protein supplements as directed. Limit your salt/sodium as instructed. Choose fresh fruits, vegetables and lean cuts of meat. Do notadd salt to food during or after cooking. Season food with herbs and spices instead of salt. Avoid salty snacks, fast foods, deli meats and pre-packaged foods. If instructed, limit your fluids to no more than 2 quarts, (64 ounces), of a day. This includes water, juice, coffee, tea, pop, soup, etc. If you are diabetic, check your blood sugar every morning before eating. Keep your fasting blood sugar below 120. Keep regular appointments with your primary physician to monitor your diabetes. Follow your diabetic diet carefully. Protein for Wound Healing You need at least 80-100 grams of protein per day for the body to heal a wound. Be creative and increase protein levels by: 1. Eating the protein items at meal time first. Eat small meals and snacks throughout the day 2. Adding eggs to casseroles, meat loaf, mashed potatoes, macaroni & cheese, salads. 3. Adding cheese to sandwiches, casseroles, potatoes, vegetables, and omelets. 4. Adding peanut butter to toast, bagels, waffles, crackers, bananas, apples, and celery. 5. Adding protein powder to drinks, pudding, potatoes, soups, ground meats, cooked cereal, milkshakes, yogurt, and pancake batter. Item Portion Size Grams of Protein Most Meats 1 oz 7 Beef Hamburger [place] 4 oz 28 Steak 6 oz 42 Chicken Breast 3.5 oz 30 Thigh Average 10 Drumstick Average 11 Wing Average 6 Most Other 4 oz cooked 35 Fish Tuna 6 oz can 40 Fish Fillets or Steaks 1oz cooked 6 Pork Chop Average 22 Loin or Tenderloin 4 oz 29 Ham 3 oz 19 Ground 3 oz cooked 22 Luna 1 slice 3 [place]-style Luna (Back Luna) 1 slice 5-6 Eggs and Dairy Egg Large 6 Milk 1 cup 8 Cottage Cheese cup 15 Yogurt 1 cup 8-12 Telugu Yogurt 6 oz 18 Soft Cheeses (Mozzarella, Brie) 1 oz 6 Medium Cheeses(Cheddar,Anguillan) 1 oz 7-8 Hard Cheeses (Parmesan) 1 oz 10 Beans / Soy Tofu cup 10 Soy Milk 1 cup 6-10 Soy Beans cup cooked 14 Edamame cup 8-12 Most Beans (black, spear, lentils) cup cooked 7-10 Split Peas cup cooked 8 Nuts and Seeds Peanut Butter 2 Tablespoons 8 Peanuts cup 9 Almonds cup 8 Cashews cup 5 Pecans cup 2.5 [place] Seeds cup 6 Pumpkin Seeds cup 19 Flax Seeds cup 8 Some Whole Grain Breads 1 slice 4-5 Other Protein Powder 1 scoop 20 documented in this encounter* Patient Instructions* Cathy Deleon RN - 04/30/2019 1:45 PM EDT The following Patient Instructions and Wound Care Orders are current as of this date. All previous orders/treatments should be discontinued. Care Orders: You are healed, continue with xeroform dressing to stay in place until 05/07/2019 location: Right elbow Clean with vashe May shower but keep dressing dry and in place. Apply the following (OR EQUIVALENT): xeroform Cover with mepilex Leave in place for 7 days, remove dressing Start washing healed area daily, apply non-perfume lotion to area daily Per Verbal Order Read Back High Blood Pressure: If your blood pressure taken today is above 150/95, please contact your primary care physician to get further instructions. If you experience the following emergent symptoms; chest pain, shortness ofbreath, headache, dizziness, vision changes, unusual and/or excessive sweating or nausea vomiting -call 911 or go to the nearest emergency room. Bleeding: If your wound was debrided and continues to bleed after your appointment, apply direct pressure to the wound with a clean cloth or dressing for 10-20 minutes. If the bleeding does not stop, call [facility] [phone] or go to the Emergency Room. Signs/Symptoms of Infection: If you have any fever, chills, nausea, vomiting or increased odor, drainage, pain or redness to thewound, call [facility] at [phone]. If after hours, contact your family physician or go to the Emergency Room. Tips You can do at Home to Help Heal Your Wound Diabetic Management: If you are diabetic, check your blood sugar every morning before eating. Keep your fasting blood sugar below 120. Keep regular appointments with your primary physician to monitor your diabetes. Follow your diabetic diet carefully. Skin Care: Use apply moisturizing lotion to dry, intact skin, avoid getting between the toes. Apply skin sealant or barrier to protect the skin from too much moisture. Inspect skin (including feet) daily for redness, blisters, rash, cracks, or open areas. Pressure Relief Instructions: Keep weight and pressure off your wound(s) and bony areas of the body (for example, heels, tail bone, hip, elbows, back of head). Reposition as instructed. Shift position in chair every 15 minutes.Turn every 2 hours while lying down. Diet: Increase the lean protein in your diet. Examples of foods high in protein are lean cuts of meat, fish, dairy foods, peanut butter and eggs. Use protein supplements as directed. Limit your salt/sodium as instructed. Choose fresh fruits, vegetables and lean cuts of meat. Do notadd salt to food during or after cooking. Season food with herbs and spices instead of salt. Avoid salty snacks, fast foods, deli meats and pre-packaged foods. If instructed, limit your fluids to no more than 2 quarts, (64 ounces), of a day. This includes water, juice, coffee, tea, pop, soup, etc. If you are diabetic, check your blood sugar every morning before eating. Keep your fasting blood sugar below 120. Keep regular appointments with your primary physician to monitor your diabetes. Follow your diabetic diet carefully. Protein for Wound Healing You need at least 80-100 grams of protein per day for the body to heal a wound. Be creative and increase protein levels by: 1. Eating the protein items at meal time first. Eat small meals and snacks throughout the day 2. Adding eggs to casseroles, meat loaf, mashed potatoes, macaroni & cheese, salads. 3. Adding cheese to sandwiches, casseroles, potatoes, vegetables, and omelets. 4. Adding peanut butter to toast, bagels, waffles, crackers, bananas, apples, and celery. 5. Adding protein powder to drinks, pudding, potatoes, soups, ground meats, cooked cereal, milkshakes, yogurt, and pancake batter. Item Portion Size Grams of Protein Most Meats 1 oz 7 Beef Hamburger [place] 4 oz 28 Steak 6 oz 42 Chicken Breast 3.5 oz 30 Thigh Average 10 Drumstick Average 11 Wing Average 6 Most Other 4 oz cooked 35 Fish Tuna 6 oz can 40 Fish Fillets or Steaks 1oz cooked 6 Pork Chop Average 22 Loin or Tenderloin 4 oz 29 Ham 3 oz 19 Ground 3 oz cooked 22 Luna 1 slice 3 [place]-style Luna (Back Luna) 1 slice 5-6 Eggs and Dairy Egg Large 6 Milk 1 cup 8 Cottage Cheese cup 15 Yogurt 1 cup 8-12 Telugu Yogurt 6 oz 18 Soft Cheeses (Mozzarella, Brie) 1 oz 6 Medium Cheeses(Cheddar,Anguillan) 1 oz 7-8 Hard Cheeses (Parmesan) 1 oz 10 Beans / Soy Tofu cup 10 Soy Milk 1 cup 6-10 Soy Beans cup cooked 14 [place]amame cup 8-12 Most Beans (black, spear, lentils) cup cooked 7-10 Split Peas cup cooked 8 Nuts and Seeds Peanut Butter 2 Tablespoons 8 Peanuts cup 9 Almonds cup 8 Cashews cup 5 Pecans cup 2.5 [place] Seeds cup 6 Pumpkin Seeds cup 19 Flax Seeds cup 8 Some Whole Grain Breads 1 slice 4-5 Other Protein Powder 1 scoop 20 documented in this encounter* Patient Instructions* Cathy Deleon RN - 10/08/2019 10:43 AM EST The following Patient Instructions and Wound Care Orders are current as of this date. All previous orders/treatments should be discontinued. Wound Care Orders: Wound location: left elbow Clean with saline May Shower,keep dressing in place when showering, remove dressing after shower, clean wound and redress Apply the following (OR EQUIVALENT): acetic acid Solution Dressing: Pour acetic acid solution over gauze or packing strip, then squeeze to remove excess moisture. The gauze should be moist, not dripping. Place the gauze inside the wound, making sure the gauze touches the entire inside of the wound.Do not place the dressing outside the edges of the wound because this can irritate healthy skin. Cover with absorbant dressing Spandigrip over dressing Change three to two times daily May change outer dressing if it becomes soiled or saturated Cleaned with saline, vashe dressing in clinic today Per Verbal Order Read Back A culture of your wound was done today. You will be contacted if any changes to your treatment needto made. Otherwise, the results will be reviewed at your next appointment. Medical Supplies were ordered through [employer], if you have any questions regarding your supply order, please contact their office directly @ [phone]. High Blood Pressure: If your blood pressure taken today is above 179/99 please contact your primary care physician to get further instructions. If you experience the following emergent symptoms; chest pain, shortness of breath, headache, dizziness, vision changes, unusual and/or excessive sweating or nausea vomiting - call 911 or go to the nearest emergency room. Bleeding: If your wound was debrided and continues to bleed after your appointment, apply direct pressure to the wound with a clean cloth or dressing for 10-20 minutes. If the bleeding does not stop, call [facility] [phone] or go to the Emergency Room. Signs/Symptoms of Infection: If you have any fever, chills, nausea, vomiting or increased odor, drainage, pain or redness to thewound, call [facility] at [phone]. If after hours, contact your family physician or go to the Emergency Room. Tips You can do at Home to Help Heal Your Wound Diabetic Management: If you are diabetic, check your blood sugar every morning before eating. Keep your fasting blood sugar below 120. Keep regular appointments with your primary physician to monitor your diabetes. Follow your diabetic diet carefully. Skin Care: Use apply moisturizing lotion to dry, intact skin, avoid getting between the toes. Apply skin sealant or barrier to protect the skin from too much moisture. Inspect skin (including feet) daily for redness, blisters, rash, cracks, or open areas. Pressure Relief Instructions: Keep weight and pressure off your wound(s) and bony areas of the body (for example, heels, tail bone, hip, elbows, back of head). Reposition as instructed. Shift position in chair every 15 minutes.Turn every 2 hours while lying down. Diet: Increase the lean protein in your diet. Examples of foods high in protein are lean cuts of meat, fish, dairy foods, peanut butter and eggs. Use protein supplements as directed. Limit your salt/sodium as instructed. Choose fresh fruits, vegetables and lean cuts of meat. Do notadd salt to food during or after cooking. Season food with herbs and spices instead of salt. Avoid salty snacks, fast foods, deli meats and pre-packaged foods. If instructed, limit your fluids to no more than 2 quarts, (64 ounces), of a day. This includes water, juice, coffee, tea, pop, soup, etc. If you are diabetic, check your blood sugar every morning before eating. Keep your fasting blood sugar below 120. Keep regular appointments with your primary physician to monitor your diabetes. Follow your diabetic diet carefully. Protein for Wound Healing You need at least 80-100 grams of protein per day for the body to heal a wound. Be creative and increase protein levels by: 1. Eating the protein items at meal time first. Eat small meals and snacks throughout the day 2. Adding eggs to casseroles, meat loaf, mashed potatoes, macaroni & cheese, salads. 3. Adding cheese to sandwiches, casseroles, potatoes, vegetables, and omelets. 4. Adding peanut butter to toast, bagels, waffles, crackers, bananas, apples, and celery. 5. Adding protein powder to drinks, pudding, potatoes, soups, ground meats, cooked cereal, milkshakes, yogurt, and pancake batter. Item Portion Size Grams of Protein Most Meats 1 oz 7 Beef Hamburger [place] 4 oz 28 Steak 6 oz 42 Chicken Breast 3.5 oz 30 Thigh Average 10 Drumstick Average 11 Wing Average 6 Most Other 4 oz cooked 35 Fish Tuna 6 oz can 40 Fish Fillets or Steaks 1oz cooked 6 Pork Chop Average 22 Loin or [place]in 4 oz 29 Ham 3 oz 19 Ground 3 oz cooked 22 Luna 1 slice 3 [place]-style Luna (Back Luna) 1 slice 5-6 Eggs and Dairy Egg Large 6 Milk 1 cup 8 Cottage Cheese cup 15 Yogurt 1 cup 8-12 Telugu Yogurt 6 oz 18 Soft Cheeses (Mozzarella, Brie) 1 oz 6 Medium Cheeses(Cheddar,Anguillan) 1 oz 7-8 Hard Cheeses (Parmesan) 1 oz 10 Beans / Soy Tofu cup 10 Soy Milk 1 cup 6-10 Soy Beans cup cooked 14 [place] cup 8-12 Most Beans (black, spear, lentils) cup cooked 7-10 Split Peas cup cooked 8 Nuts and Seeds Peanut Butter 2 Tablespoons 8 Peanuts cup 9 Almonds cup 8 Cashews cup 5 Pecans cup 2.5 [place] Seeds cup 6 Pumpkin Seeds cup 19 Flax Seeds cup 8 Some Whole Grain Breads 1 slice 4-5 Other Protein Powder 1 scoop 20 documented in this encounter* Patient Instructions* Leatha Gomez II, MD - 08/28/2019 1:35 PM EST Call the PAT office with any questions, changes to your medications or health state Preoperative Medication Instructions In preparation for surgery please continue all of your current medications with the following changes: Elsa Catalan Home Medication Instructions Prior to Surgery RICKI:[id number] Printed on:08/28/19 3650 Medication Information Take last dose on Take the morning of surgery Comment(s) adalimumab (HUMIRA) 40 mg/0.8 mL syringe Inject 40 mg under the skin every 14 (fourteen) days Reasons: rheumatoid arthritis. Stop today if not already stopped. Hold for six weeks after surgery or as directed by your tractor engine assembler cholecalciferol, vitamin D3, (VITAMIN D3 ORAL) Take by mouth every morning Reasons: Supp. no empagliflozin (Jardiance) 10 mg Tab Take 10 mg by mouth every morning Reasons: type 2 diabetes mellitus. no folic acid (FOLVITE) 1 MG tablet Take 2 mg by mouth every morning Reasons: Supp. no gabapentin (NEURONTIN) 300 MG capsule Take 300 mg by mouth 3 (three) times a day Reasons: Pain. yes insulin aspart U-100 (NovoLOG) 100 unit/mL injection Inject under the skin 3 (three) times a day before meals Reasons: type 2 diabetes mellitus, [place]. no irbesartan (AVAPRO) 150 MG tablet Take 150 mg by mouth every morning Reasons: high blood pressure. no LANTUS SOLOSTAR U-100 INSULIN 100 unit/mL (3 mL) InPn 50 Units nightly Reasons: type 2 diabetes mellitus. Only 25 units the night prior to surgery leflunomide (ARAVA) 20 MG tablet Take 20 mg by mouth every morning Reasons: rheumatoid arthritis. Stop today if not already stopped. Resume postop when ok with your tractor engine assembler methotrexate 25 mg/mL injection 50 mg once a week Reasons: rheumatoid arthritis, Monday. As usual simvastatin (ZOCOR) 20 MG tablet Take 20 mg by mouth daily with lunch Reasons: excessive fat in the blood. no sulfaSALAzine (AZULFIDINE) 500 mg tablet Take 500 mg by mouth 3 (three) times a day Reasons: rheumatoid arthritis. yes SYNTHROID 175 mcg tablet Take 200 mcg by mouth every morning Reasons: a condition with low thyroid hormone levels. yes TOPROL XL 25 mg 24 hr tablet Take 25 mg by mouth every morning Reasons: high blood pressure. yes STOP Aspirin (and medications that contain aspirin, such as [place], Pepto- Bismol, Anacin), antiinflammatory medications such as Advil, Motrin, Ibuprofen, Naproxen, Aleve, [place], Pepto-Bismol, Anacin, Diclofenac, Voltaren, Daypro, Etodolac, Ketoprofen, Piroxicam, Relafen, Nabumetone, etc. Also discontinue Vitamin C, Vitamin E, [place]stone-3 Fatty Acid, Fish Oil or Lovaza, and all herbal medications. Tylenol (acetaminophen) is acceptable, but be careful to follow the label directions and do not usewith other pain medications. It is acceptable to continue a Multivitamin, Magnesium, Potassium, Iron supplement, Vitamin D, Calcium, or Vitamin B if you were already taking them. On the morning of surgery, with as little water as possible, ONLY take the medications listed abovein the column Take the morning of surgery. If you are using Eye Drops or Inhalers, please bring them to the hospital. 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 Pre-operative cardiovascular examination Benign essential hypertension Essential hypertension, benign Type 2 diabetes mellitus without complication, with long-term current use of insulin (HCC) Rheumatoid arthritis, involving unspecified site, unspecified rheumatoid factor presence (HCC) Fibromyalgia Unspecified myalgia and myositis PONV (postoperative nausea and vomiting) Nausea with vomiting No contraindication to deep vein thrombosis (DVT) prophylaxis Diagnosis Pre-op exam Diagnosis Elbow injury, unspecified laterality, sequela- Primary Diagnosis Skin ulcer of elbow with fat layer exposed (HCC)- Primary Type 2 diabetes mellitus with other skin ulcer, with long-term current use of insulin (HCC) Rheumatoid arthritis involving right elbow, unspecified rheumatoid factor presence (HCC) Fibromyalgia affecting forearm Essential hypertension Unspecified essential hypertension Diagnosis Skin ulcer of elbow with fat layer exposed (HCC)- Primary Type 2 diabetes mellitus with other skin ulcer, with long-term current use of insulin (HCC) Rheumatoid arthritis involving right elbow, unspecified rheumatoid factor presence (HCC) Fibromyalgia affecting forearm Essential hypertension Unspecified essential hypertension Diagnosis Post-operative pain Other acute postoperative pain Elbow pain, unspecified laterality RHA (rheumatoid arthritis) (HCC) Rheumatoid arthritis Elbow arthritis Unspecified arthropathy, upper arm Diagnosis Complication of procedure, subsequent encounter Acute neuritis Non-healing wound of upper extremity, left, initial encounter Diagnosis Post-op pain Other acute postoperative pain Diagnosis Skin ulcer of elbow with fat layer exposed (HCC) Type 2 diabetes mellitus with other skin ulcer, with long-term current use of insulin (HCC) Rheumatoid arthritis involving left elbow with positive rheumatoid factor (HCC) Fibromyalgia affecting forearm Diagnosis Preop examination Unspecified pre-operative examination Contracture of left elbow Pre-operative cardiovascular examination Rheumatoid arthritis, involving unspecified site, unspecified rheumatoid factor presence (HCC) Benign essential hypertension Essential hypertension, benign Type 2 diabetes mellitus without complication, with long-term current use of insulin (HCC) Fibromyalgia Unspecified myalgia and myositis History of postoperative nausea and vomiting Hyperlipidemia, unspecified hyperlipidemia type Essential hypertension Unspecified essential hypertension Acquired hypothyroidism Unspecified hypothyroidism Need for prophylactic measure Need for unspecified prophylactic measure Discharge Instructions * Instructions* Alyssia Faria, [employer] PATCHER - 02/26/2019 General Post-Operative Sheets for Dr. Almanzar Pain after surgery: Everyone has different pain tolerances. You will have at least mild to moderatediscomfort. The first 1-2 days after surgery is usually when your pain will be the worst. It will lessen over time after that. Most patients have a regional anesthesia or block. This can last anywhere from 4-36 hours. Your pain will increase when the block starts wearing off. Start taking your painmedication when you get home before the block wears off as stated below. Pain Medication: You will prescribe a narcotic pain medication such as Percocet, Oxycodone or Vicodin. Fill the prescription after surgery and start taking the medication as instructed before the regional anesthesia wears off for the first 24 hours and then as needed afterwards. We recommend that when you get home you start taking 1 pain medication pill every 6 hours to start. As the block wears o ff and you have increased pain then you can take up to 2 pill every 4 hours if needed. You can alsostart taking Ibuprofen 600mg every 6 hours when you get home as well that will help with pain control and also help reduce the amount of narcotic pain medication you take. Do not take Ibuprofen if you have an allergy to it or other medical conditions that do not allow you to take an NSAID. Do not take Tylenol since there is Tylenol in the narcotic pain medication already. Pain medication will help control your pain but will not get rid of your pain completely. If you are also taking Ibuprofen and your pain is still not controlled then you may have to go to the ER for additional IV pain medication. Pain medication cannot be called in over the phone. If you call the physician after hours there is not anything we can do over the phone to change or give additional pain medication. Do not drink alcoholic beverages with narcotic pain medication. The prescription for pain medication you get should last until your first postoperative visit. If you run out and need a refill before this call the office and leave a message requesting a refill. It will take 24-48 hours for the office to providea new prescription for pickling operator at the office and you will be notified when it is ready. Messages left for refills on or Monday may not be able to be given until that following Monday. No pain medication is refilled or prescribed over the weekend. Please keep this in mind when you start getting low on your medication. WITH THE NEW LAWS IN [place] THE PRESCIBED USE OF OPIODS WE PHYSICIANS ARE LIMITED TO THE QUANTITY, DOSAGE AND LENGTH OF TIME WE CAN PRESCRIBE THESE MEDICATIONS AFTER SURGERY. YOU WILL BE PRESCRIBED THE ALLOWED AND TYPICAL AMOUNT OF NARCOTIC PAIN MEDICATION FOR THE FIRST WEEK AFTER SURGERY FOR POSTOPERATIVE PAIN. THE TYPE AND AMOUNT OF NARCOTIC PAIN MEDICATION WILL DEPEND ON THE TYPEOF SURGERY THAT YOU HAVE. IF YOU HAVE BEEN ON CHRONIC NARCOTIC PAIN MEDICATION BEFORE SURGERY, YOU WILL BE PRESCRIBED PAIN MEDICATION TO TAKE IN ADDITION TO YOUR USUAL PAIN MEDICATION FOR 1 WEEK ONLY. PLEASE NOTIFY YOUR PAIN MANAGEMENT PHYSICIAN THAT IS PRESCIBING YOUR CHRONIC PAIN MEDICATION PRIORTO SURGERY AND MAKE THEM AWARE OF THIS. SOME PATIENTS SIGN A PAIN CONTRACT AND THIS MAY EFFECT YOURCONTRACT. DR. ALMANZAR WILL NOT ASSUME OR TAKE OVER YOUR CHRONIC PAIN MEDICATION AFTER SURGERY. YOU WILL HAVE 1 WEEK ONLY OF PAIN MEDICATION PRESCRIBED BY DR. ALMANZAR AFTER SURGERY THAT IS TYPICAL FOR THE TYPE OF PROCEDURE THAT YOU HAVE. MOST PATIENTS ARE OFF THE NARCOTIC PAIN MEDICATIONS WITHIN A FEW DAYS AFTER SURGERY. Antibiotics: These will be prescribed after surgery typically for 3 days after surgery. Fill the prescription after surgery and take as directed. If you cannot tolerate the antibiotic then call the office during normal business hours and we can change the medication and call in a different antibiotic for you. If it is after normal office hours you can wait until the next day and call. It is not an emergency. Blood Clot or DVT: If you have calf pain not relieved by rest, shortness of breath or chest pain then go to the ER immediately for an evaluation for a blood clot. If you call the office we will send you to the ER for evaluation if you have these symptoms. Anesthesia: Rest for 24 hours after your surgery and anesthesia. Do not drive. Do not drink alcoholic beverages during this time. You may experience a sore throat or jaw, stiff neck or muscle aches after anesthesia. These symptoms should resolve over the next few days. Regional Block Anesthesia: This procedure involves medication injected into a region of the body, typically local anesthetic, by the anesthesiologist just before surgery that helps to numb that part of the body so there is much less pain after surgery. This allows less medication and anesthesia to be used in and after surgery for pain control. The block will start to wear off typically later on that day. Start taking your pain medication prior as stated above. Over the next few days you may experience some continued numbness and tingling that should resolve over the next several days and sometimes over a few weeks. As long as you are able to move the extremity and the skin is pink and warm with good pulses distally, this is usually normal. Infection: If you experience any of the following such as fever > 101', chills, night sweats, increasing pain, greenish or yellowish drainage from the operative wound, a foul smell from the operative wound or increasing redness or swelling around the incisions then call the office during normal office hours or go to the ER after office hours or on the weekend for evaluation. Constipation / Urinary Retention: The inability to have a bowel movement is constipation and the inability to urinate is urinary retention. These are symptoms most commonly caused by narcotic pain medication and some anesthesia. Drink plenty of fluids such as water a juice after surgery. If you are experiencing these symptoms you can take Colace a stool softener that you can buy at the pharmacy and take as directed. If urinary retention continues for hours or you feel your bladder is getting full and painful, then you should be evaluated at your closest ER as soon as possible. Decreasing narcotic pain medication use will help alleviate these symptoms. Diet: Start out with a clear liquid diet and then advance to your normal diet as tolerated. Nausea and Vomiting: If you are experiencing these symptoms after surgery you may need and anti-nausea medication such as Zofran or Phenergan. This can be called in during normal office hours by calling the office. If it is after normal office hours you may need to go to the ER for this medication. Low Grade Fever < 101': Typically, can occur after surgery for the first few days most commonly due to atelectasis or small areas in the lungs that close down. After surgery you need to take deep breathes in and out throughout the day to keep this from occurring. For example, take a deep breathein and hold it for 10 seconds and blow it out completely and repeat 10 times. Do this 4 times per day. Specific Surgical Procedure Instructions: These will be given to you separately depending on the surgical procedure you had done. These will include instructions for Activity, Wound Care, Dressing Changes, Physical Therapy and so on. - Normal office hours are Monday - Monday 8am - 5pm. - Dr. Almanzar's office number at [facility] is: [phone]. - If you need to make a physical therapy appointment please call [facility] at: [phone] -If you leave a message after normal office hours or on the weekend it will be answered the next office day. - If you call after normal office hours please remember that the physician is very limited as to what they can do. They cannot change or prescribe different pain medication over the phone. If you feel that your condition cannot wait until the next day and you need to be seen right away, then you should go to the nearest ER for evaluation after normal office hours and on the weekends. If possible go to [facility] ER at [address] [facility] in [place]. POST OP INSTRUCTIONS - DR. ALMANZAR Activity / Comfort Care -Start Hand/Wrist/Elbow range of motion exercises twice daily out of splint on post-op day #1. -Do Not Place any weight on your operative arm. Do not use your arm to push or pull yourself. -Wear splint and maintain in extension at all times except for range of motion twice daily. -Keep ice on the area for 48 hours. Use it intermittently for 20 minutes on and 1 hour off. Then use as needed for swelling. Make sure the pad does not lay directly on your skin. Keep something like clothing or a towel under pad. Incisional Wound VAC / Comfort Care -Keep incision and dressing clean and dry for 7 days. -A small amount of drainage is expected. -Do Not Change dressing until POD #7. On post op day #7 remove wound vac, peeling it off like a Band-Aid, and start daily dry dressing changes only if there is drainage. If there is no drainage then leave incision open to air and keep it clean and dry washing incision daily with soap and water. If wound vac stops working (green light stops flashing) prior to post op day #7 then just turn wound vac off and leave it on until you remove it on POD#7. -Do not use powder, lotions, creams, or ointments on your incision. -No tub baths, hot tubs, or swimming until approved by your doctor. -Keep the cold therapy unit on for 48 hours. Use it intermittently for 20 minutes on and 1 hour off. Then use as needed for swelling. Make sure the pad does not lie directly on your skin. Keep something like clothing or a towel under pad. -For comfort, you can put a dressing over the incision and secure it after vac removed. DVT prophylaxis -You may be placed on medication for prophylaxis against a DVT or blood clot after surgery if you have risk factors for a DVT. You could be placed on Aspirin, Lovenox, Coumadin or other medication for this. Take the medication as directed for at least 2 weeks. Please notify your doctor for an excess bleeding. - Wearing your elastic DAVID hose stockings for 2 weeks, getting up and walking as much as possible and doing your exercises daily also help prevent DVT. Physical Therapy -Will start in the hospital the day after surgery and then continue at home with home exercises or in the facility that you go to after the hospital. -Outpatient therapy will start after your post op visit 2 weeks after surgery. Follow-Up -Please call with any questions or concerns during normal office hours. -Call the office for an appointment in 10-14 days if you do not already have one, . Call the doctor right away during regular office hours or go to the ER if after hours if you: POST OP INSTRUCTIONS - DR. ALMANZAR (con't) -Signs of infection: redness, swelling, odor or drainage from incision, fever above 101 F, chills -Edges of incision -Excessive bleeding from the incision site that does not stop -Sudden, severe pain not relieved by medication -Loss or appetite, nausea or vomiting -Inability to urinate for more than 8 hours -Severe sudden pain at or above your knee -Inability to bear weight -Have excessive calf pain especially when walking -Have swelling, redness / bruising or sore calf when squeezed -Have chest pain or shortness of breath, call 911 documented in this encounter* Instructions* Marilyn Ramirez, BREE - 09/04/2019 General Post-Operative Sheets for Dr. Almanzar Pain after surgery: Everyone has different pain tolerances. You will have at least mild to moderatediscomfort. The first 1-2 days after surgery is usually when your pain will be the worst. It will lessen over time after that. Most patients have a regional anesthesia or block. This can last anywhere from 4-36 hours. Your pain will increase when the block starts wearing off. Start taking your painmedication when you get home before the block wears off as stated below. Pain Medication: You will prescribe a narcotic pain medication such as Percocet, Oxycodone or Vicodin. Fill the prescription after surgery and start taking the medication as instructed before the regional anesthesia wears off for the first 24 hours and then as needed afterwards. We recommend that when you get home you start taking 1 pain medication pill every 6 hours to start. As the block wears o ff and you have increased pain then you can take up to 2 pill every 4 hours if needed. You can alsostart taking Ibuprofen 600mg every 6 hours when you get home as well that will help with pain control and also help reduce the amount of narcotic pain medication you take. Do not take Ibuprofen if you have an allergy to it or other medical conditions that do not allow you to take an NSAID. Do not take Tylenol since there is Tylenol in the narcotic pain medication already. Pain medication will help control your pain but will not get rid of your pain completely. If you are also taking Ibuprofen and your pain is still not controlled then you may have to go to the ER for additional IV pain medication. Pain medication cannot be called in over the phone. If you call the physician after hours there is not anything we can do over the phone to change or give additional pain medication. Do not drink alcoholic beverages with narcotic pain medication. The prescription for pain medication you get should last until your first postoperative visit. If you run out and need a refill before this call the office and leave a message requesting a refill. It will take 24-48 hours for the office to providea new prescription for pickling operator at the office and you will be notified when it is ready. Messages left for refills on or Monday may not be able to be given until that following Monday. No pain medication is refilled or prescribed over the weekend. Please keep this in mind when you start getting low on your medication. WITH THE NEW LAWS IN [place] THE PRESCIBED USE OF OPIODS WE PHYSICIANS ARE LIMITED TO THE QUANTITY, DOSAGE AND LENGTH OF TIME WE CAN PRESCRIBE THESE MEDICATIONS AFTER SURGERY. YOU WILL BE PRESCRIBED THE ALLOWED AND TYPICAL AMOUNT OF NARCOTIC PAIN MEDICATION FOR THE FIRST WEEK AFTER SURGERY FOR POSTOPERATIVE PAIN. THE TYPE AND AMOUNT OF NARCOTIC PAIN MEDICATION WILL DEPEND ON THE TYPEOF SURGERY THAT YOU HAVE. IF YOU HAVE BEEN ON CHRONIC NARCOTIC PAIN MEDICATION BEFORE SURGERY, YOU WILL BE PRESCRIBED PAIN MEDICATION TO TAKE IN ADDITION TO YOUR USUAL PAIN MEDICATION FOR 1 WEEK ONLY. PLEASE NOTIFY YOUR PAIN MANAGEMENT PHYSICIAN THAT IS PRESCIBING YOUR CHRONIC PAIN MEDICATION PRIORTO SURGERY AND MAKE THEM AWARE OF THIS. SOME PATIENTS SIGN A PAIN CONTRACT AND THIS MAY EFFECT YOURCONTRACT. DR. ALMANZAR WILL NOT ASSUME OR TAKE OVER YOUR CHRONIC PAIN MEDICATION AFTER SURGERY. YOU WILL HAVE 1 WEEK ONLY OF PAIN MEDICATION PRESCRIBED BY DR. ALMANZAR AFTER SURGERY THAT IS TYPICAL FOR THE TYPE OF PROCEDURE THAT YOU HAVE. MOST PATIENTS ARE OFF THE NARCOTIC PAIN MEDICATIONS WITHIN A FEW DAYS AFTER SURGERY. Antibiotics: These will be prescribed after surgery typically for 3 days after surgery. Fill the prescription after surgery and take as directed. If you cannot tolerate the antibiotic then call the office during normal business hours and we can change the medication and call in a different antibiotic for you. If it is after normal office hours you can wait until the next day and call. It is not an emergency. Blood Clot or DVT: If you have calf pain not relieved by rest, shortness of breath or chest pain then go to the ER immediately for an evaluation for a blood clot. If you call the office we will send you to the ER for evaluation if you have these symptoms. Anesthesia: Rest for 24 hours after your surgery and anesthesia. Do not drive. Do not drink alcoholic beverages during this time. You may experience a sore throat or jaw, stiff neck or muscle aches after anesthesia. These symptoms should resolve over the next few days. Regional Block Anesthesia: This procedure involves medication injected into a region of the body, typically local anesthetic, by the anesthesiologist just before surgery that helps to numb that part of the body so there is much less pain after surgery. This allows less medication and anesthesia to be used in and after surgery for pain control. The block will start to wear off typically later on that day. Start taking your pain medication prior as stated above. Over the next few days you may experience some continued numbness and tingling that should resolve over the next several days and sometimes over a few weeks. As long as you are able to move the extremity and the skin is pink and warm with good pulses distally, this is usually normal. Infection: If you experience any of the following such as fever > 101', chills, night sweats, increasing pain, greenish or yellowish drainage from the operative wound, a foul smell from the operative wound or increasing redness or swelling around the incisions then call the office during normal office hours or go to the ER after office hours or on the weekend for evaluation. Constipation / Urinary Retention: The inability to have a bowel movement is constipation and the inability to urinate is urinary retention. These are symptoms most commonly caused by narcotic pain medication and some anesthesia. Drink plenty of fluids such as water a juice after surgery. If you are experiencing these symptoms you can take Colace a stool softener that you can buy at the pharmacy and take as directed. If urinary retention continues for hours or you feel your bladder is getting full and painful, then you should be evaluated at your closest ER as soon as possible. Decreasing narcotic pain medication use will help alleviate these symptoms. Diet: Start out with a clear liquid diet and then advance to your normal diet as tolerated. Nausea and Vomiting: If you are experiencing these symptoms after surgery you may need and anti-nausea medication such as Zofran or Phenergan. This can be called in during normal office hours by calling the office. If it is after normal office hours you may need to go to the ER for this medication. Low Grade Fever < 101': Typically, can occur after surgery for the first few days most commonly due to atelectasis or small areas in the lungs that close down. After surgery you need to take deep breathes in and out throughout the day to keep this from occurring. For example, take a deep breathein and hold it for 10 seconds and blow it out completely and repeat 10 times. Do this 4 times per day. Specific Surgical Procedure Instructions: These will be given to you separately depending on the surgical procedure you had done. These will include instructions for Activity, Wound Care, Dressing Changes, Physical Therapy and so on. - Normal office hours are Monday - Monday 8am - 5pm. - Dr. Almanzar's office number at [facility] is: [phone]. - If you need to make a physical therapy appointment please call [facility] at: [phone] -If you leave a message after normal office hours or on the weekend it will be answered the next office day. - If you call after normal office hours please remember that the physician is very limited as to what they can do. They cannot change or prescribe different pain medication over the phone. If you feel that your condition cannot wait until the next day and you need to be seen right away, then you should go to the nearest ER for evaluation after normal office hours and on the weekends. If possible go to [facility] ER at [address] [facility] in [place]. TOTAL ELBOW POST OP INSTRUCTIONS - DR. ALMANZAR Activity / Comfort Care -Start Hand/Wrist/Elbow range of motion exercises twice daily out of brace on post-op day #1. -Do Not Place any weight on your operative arm. Do not use your arm to push or pull yourself. -Wear brace and maintain in extension at all times except for range of motion twice daily. -Keep ice on the area for 48 hours. Use it intermittently for 20 minutes on and 1 hour off. Then use as needed for swelling. Make sure the pad does not lay directly on your skin. Keep something like clothing or a towel under pad. Wound Care - You may change your dressing starting [address] a dry dressing over the incision(s) and change daily. - Cover incision with adaptic, ABD and wrap with HUGO bandage daily - Keep any incisions dry for 2 days. You may then get them wet in a shower and clean lightly with soap. Dab them dry, do not wipe. Do not soak your incision in the bath tub, hot tubs, swimming pools,etc, Keep the incision clean and dry until your follow up appointment. DVT prophylaxis -You may be placed on medication for prophylaxis against a DVT or blood clot after surgery if you have risk factors for a DVT. You could be placed on Aspirin, Lovenox, Coumadin or other medication for this. Take the medication as directed for at least 2 weeks. Please notify your doctor for an excess bleeding. - Wearing your elastic DAVID hose stockings for 2 weeks, getting up and walking as much as possible and doing your exercises daily also help prevent DVT. Physical Therapy -Will start in the hospital the day after surgery and then continue at home with home exercises or in the facility that you go to after the hospital. -Outpatient therapy will start after your post op visit 2 weeks after surgery. Follow-Up -Please call with any questions or concerns during normal office hours. -Call the office for an appointment in 10-14 days if you do not already have one, . Call the doctor right away during regular office hours or go to the ER if after hours if you: -Signs of infection: redness, swelling, odor or drainage from incision, fever above 101 F, chills -Edges of incision -Excessive bleeding from the incision site that does not stop -Sudden, severe pain not relieved by medication -Loss or appetite, nausea or vomiting -Inability to urinate for more than 8 hours -Severe sudden pain at or above your knee -Inability to bear weight -Have excessive calf pain especially when walking -Have swelling, redness / bruising or sore calf when squeezed -Have chest pain or shortness of breath, call 911 documented in this encounter* Discharge Instr - Wound* Daphne Ramirez RN - 10/14/2019 12:14 PM EST Wound vac therapy to run at 125 mmhg continuous suction. L elbow wound bed to be cleansed with normal saline. Black vac foam then to be placed to wound bed and secured with drape. VAC dressing changes to be every M-W- by [facility]. Pt to take pain medication 1 hour before dressing change. * Discharge Instr - Care Coordination* Gera York LSW - 10/14/2019 3:35 PM EST Home Health Care Services: [facility] P: [phone] F: [phone] * Additional Instructions* Marzena Wiley, CUPOLA PATCHER - 10/14/2019 General Post-Operative Sheets for Dr. Almanzar Pain after surgery: Everyone has different pain tolerances. You will have at least mild to moderatediscomfort. The first 1-2 days after surgery is usually when your pain will be the worst. It will lessen over time after that. Most patients have a regional anesthesia or block. This can last anywhere from 4-36 hours. Your pain will increase when the block starts wearing off. Start taking your painmedication when you get home before the block wears off as stated below. Pain Medication: You will prescribe a narcotic pain medication such as Percocet, Oxycodone or Vicodin. Fill the prescription after surgery and start taking the medication as instructed before the regional anesthesia wears off for the first 24 hours and then as needed afterwards. We recommend that when you get home you start taking 1 pain medication pill every 6 hours to start. As the block wears o ff and you have increased pain then you can take up to 2 pill every 4 hours if needed. You can alsostart taking Ibuprofen 600mg every 6 hours when you get home as well that will help with pain control and also help reduce the amount of narcotic pain medication you take. Do not take Ibuprofen if you have an allergy to it or other medical conditions that do not allow you to take an NSAID. Do not take Tylenol since there is Tylenol in the narcotic pain medication already. Pain medication will help control your pain but will not get rid of your pain completely. If you are also taking Ibuprofen and your pain is still not controlled then you may have to go to the ER for additional IV pain medication. Pain medication cannot be called in over the phone. If you call the physician after hours there is not anything we can do over the phone to change or give additional pain medication. Do not drink alcoholic beverages with narcotic pain medication. The prescription for pain medication you get should last until your first postoperative visit. If you run out and need a refill before this call the office and leave a message requesting a refill. It will take 24-48 hours for the office to providea new prescription for pickling operator at the office and you will be notified when it is ready. Messages left for refills on or Monday may not be able to be given until that following Monday. No pain medication is refilled or prescribed over the weekend. Please keep this in mind when you start getting low on your medication. WITH THE NEW [place]WS IN [place] THE PRESCIBED USE OF OPIODS WE PHYSICIANS ARE LIMITED TO THE QUANTITY, DOSAGE AND LENGTH OF TIME WE CAN PRESCRIBE THESE MEDICATIONS AFTER SURGERY. YOU WILL BE PRESCRIBED THE ALLOWED AND TYPICAL AMOUNT OF NARCOTIC PAIN MEDICATION FOR THE FIRST WEEK AFTER SURGERY FOR POSTOPERATIVE PAIN. THE TYPE AND AMOUNT OF NARCOTIC PAIN MEDICATION WILL DEPEND ON THE TYPEOF SURGERY THAT YOU HAVE. IF YOU HAVE BEEN ON CHRONIC NARCOTIC PAIN MEDICATION BEFORE SURGERY, YOU WILL BE PRESCRIBED PAIN MEDICATION TO TAKE IN ADDITION TO YOUR USUAL PAIN MEDICATION FOR 1 WEEK ONLY. PLEASE NOTIFY YOUR PAIN MANAGEMENT PHYSICIAN THAT IS PRESCIBING YOUR CHRONIC PAIN MEDICATION PRIORTO SURGERY AND MAKE THEM AWARE OF THIS. SOME PATIENTS SIGN A PAIN CONTRACT AND THIS MAY EFFECT YOURCONTRACT. DR. ALMANZAR WILL NOT ASSUME OR TAKE OVER YOUR CHRONIC PAIN MEDICATION AFTER SURGERY. YOU WILL HAVE 1 WEEK ONLY OF PAIN MEDICATION PRESCRIBED BY DR. ALMANZAR AFTER SURGERY THAT IS TYPICAL FOR THE TYPE OF PROCEDURE THAT YOU HAVE. MOST PATIENTS ARE OFF THE NARCOTIC PAIN MEDICATIONS WITHIN A FEW DAYS AFTER SURGERY. Antibiotics: These will be prescribed after surgery typically for 3 days after surgery. Fill the prescription after surgery and take as directed. If you cannot tolerate the antibiotic then call the office during normal business hours and we can change the medication and call in a different antibiotic for you. If it is after normal office hours you can wait until the next day and call. It is not an emergency. Blood Clot or DVT: If you have calf pain not relieved by rest, shortness of breath or chest pain then go to the ER immediately for an evaluation for a blood clot. If you call the office we will send you to the ER for evaluation if you have these symptoms. Anesthesia: Rest for 24 hours after your surgery and anesthesia. Do not drive. Do not drink alcoholic beverages during this time. You may experience a sore throat or jaw, stiff neck or muscle aches after anesthesia. These symptoms should resolve over the next few days. Regional Block Anesthesia: This procedure involves medication injected into a region of the body, typically local anesthetic, by the anesthesiologist just before surgery that helps to numb that part of the body so there is much less pain after surgery. This allows less medication and anesthesia to be used in and after surgery for pain control. The block will start to wear off typically later on that day. Start taking your pain medication prior as stated above. Over the next few days you may experience some continued numbness and tingling that should resolve over the next several days and sometimes over a few weeks. As long as you are able to move the extremity and the skin is pink and warm with good pulses distally, this is usually normal. Infection: If you experience any of the following such as fever > 101', chills, night sweats, increasing pain, greenish or yellowish drainage from the operative wound, a foul smell from the operative wound or increasing redness or swelling around the incisions then call the office during normal office hours or go to the ER after office hours or on the weekend for evaluation. Constipation / Urinary Retention: The inability to have a bowel movement is constipation and the inability to urinate is urinary retention. These are symptoms most commonly caused by narcotic pain medication and some anesthesia. Drink plenty of fluids such as water a juice after surgery. If you are experiencing these symptoms you can take Colace a stool softener that you can buy at the pharmacy and take as directed. If urinary retention continues for hours or you feel your bladder is getting full and painful, then you should be evaluated at your closest ER as soon as possible. Decreasing narcotic pain medication use will help alleviate these symptoms. Diet: Start out with a clear liquid diet and then advance to your normal diet as tolerated. Nausea and Vomiting: If you are experiencing these symptoms after surgery you may need and anti-nausea medication such as Zofran or Phenergan. This can be called in during normal office hours by calling the office. If it is after normal office hours you may need to go to the ER for this medication. Low Grade Fever < 101': Typically, can occur after surgery for the first few days most commonly due to atelectasis or small areas in the lungs that close down. After surgery you need to take deep breathes in and out throughout the day to keep this from occurring. For example, take a deep breathein and hold it for 10 seconds and blow it out completely and repeat 10 times. Do this 4 times per day. Specific Surgical Procedure Instructions: These will be given to you separately depending on the surgical procedure you had done. These will include instructions for Activity, Wound Care, Dressing Changes, Physical Therapy and so on. - Normal office hours are Monday - Monday 8am - 5pm. - Dr. Almanzar's office number at [facility] is: [phone]. - If you need to make a physical therapy appointment please call [facility] at: [phone] -If you leave a message after normal office hours or on the weekend it will be answered the next office day. - If you call after normal office hours please remember that the physician is very limited as to what they can do. They cannot change or prescribe different pain medication over the phone. If you feel that your condition cannot wait until the next day and you need to be seen right away, then you should go to the nearest ER for evaluation after normal office hours and on the weekends. If possible go to [facility] ER at [address] [facility] in [place]. POST OP INSTRUCTIONS - DR. ALMANZAR Activity / Comfort Care -5 pounds is your weight limit on your operative arm. Do not use your arm to push or pull yourself. -Wear splint for first week then it may be removed -okay to shower as long as kept dry - okay to drive as long as not taking narcotics and can do so safely with right arm only Wound Care - Your wound vac will be changed per the home care company, but typically Monday, Monday, and Monday DVT prophylaxis - Wearing your elastic DAVID hose stockings for 2 weeks, getting up and walking as much as possible and doing your exercises daily also help prevent DVT. Physical Therapy - you can start gentle range of motion after 1 week Follow-Up -Please call with any questions or concerns during normal office hours. -Call the office for an appointment in 10-14 days if you do not already have one, . Call the doctor right away during regular office hours or go to the ER if after hours if you: -Signs of infection: redness, swelling, odor or drainage from incision, fever above 101 F, chills -Edges of incision -Excessive bleeding from the incision site that does not stop -Sudden, severe pain not relieved by medication -Loss or appetite, nausea or vomiting -Inability to urinate for more than 8 hours -Severe sudden pain at or above your knee -Inability to bear weight -Have excessive calf pain especially when walking -Have swelling, redness / bruising or sore calf when squeezed -Have chest pain or shortness of breath, call 911 documented in this encounter* Instructions* Antolin Lissa L, CUPOLA PATCHER - 04/06/2020 General Post-Operative Sheets for Dr. Almanzar Pain after surgery: Everyone has different pain tolerances. You will have at least mild to moderatediscomfort. The first 1-2 days after surgery is usually when your pain will be the worst. It will lessen over time after that. Most patients have a regional anesthesia or block. This can last anywhere from 4-36 hours. Your pain will increase when the block starts wearing off. Start taking your painmedication when you get home before the block wears off as stated below. Pain Medication: You will prescribe a narcotic pain medication such as Percocet, Oxycodone or Vicodin. Fill the prescription after surgery and start taking the medication as instructed before the regional anesthesia wears off for the first 24 hours and then as needed afterwards. We recommend that when you get home you start taking 1 pain medication pill every 6 hours to start. As the block wears o ff and you have increased pain then you can take up to 2 pill every 4 hours if needed. You can alsostart taking Ibuprofen 600mg every 6 hours when you get home as well that will help with pain control and also help reduce the amount of narcotic pain medication you take. Do not take Ibuprofen if you have an allergy to it or other medical conditions that do not allow you to take an NSAID. Do not take Tylenol since there is Tylenol in the narcotic pain medication already. Pain medication will help control your pain but will not get rid of your pain completely. If you are also taking Ibuprofen and your pain is still not controlled then you may have to go to the ER for additional IV pain medication. Pain medication cannot be called in over the phone. If you call the physician after hours there is not anything we can do over the phone to change or give additional pain medication. Do not drink alcoholic beverages with narcotic pain medication. The prescription for pain medication you get should last until your first postoperative visit. If you run out and need a refill before this call the office and leave a message requesting a refill. It will take 24-48 hours for the office to providea new prescription for pickling operator at the office and you will be notified when it is ready. Messages left for refills on or Monday may not be able to be given until that following Monday. No pain medication is refilled or prescribed over the weekend. Please keep this in mind when you start getting low on your medication. WITH THE NEW LAWS IN [place]OVERNING THE PRESCIBED USE OF OPIODS WE PHYSICIANS ARE LIMITED TO THE QUANTITY, DOSAGE AND LENGTH OF TIME WE CAN PRESCRIBE THESE MEDICATIONS AFTER SURGERY. YOU WILL BE PRESCRIBED THE ALLOWED AND TYPICAL AMOUNT OF NARCOTIC PAIN MEDICATION FOR THE FIRST WEEK AFTER SURGERY FOR POSTOPERATIVE PAIN. THE TYPE AND AMOUNT OF NARCOTIC PAIN MEDICATION WILL DEPEND ON THE TYPEOF SURGERY THAT YOU HAVE. IF YOU HAVE BEEN ON CHRONIC NARCOTIC PAIN MEDICATION BEFORE SURGERY, YOU WILL BE PRESCRIBED PAIN MEDICATION TO TAKE IN ADDITION TO YOUR USUAL PAIN MEDICATION FOR 1 WEEK ONLY. PLEASE NOTIFY YOUR PAIN MANAGEMENT PHYSICIAN THAT IS PRESCIBING YOUR CHRONIC PAIN MEDICATION PRIORTO SURGERY AND MAKE THEM AWARE OF THIS. SOME PATIENTS SIGN A PAIN CONTRACT AND THIS MAY EFFECT YOURCONTRACT. DR. ALMANZAR WILL NOT ASSUME OR TAKE OVER YOUR CHRONIC PAIN MEDICATION AFTER SURGERY. YOU WILL HAVE 1 WEEK ONLY OF PAIN MEDICATION PRESCRIBED BY DR. ALMANZAR AFTER SURGERY THAT IS TYPICAL FOR THE TYPE OF PROCEDURE THAT YOU HAVE. MOST PATIENTS ARE OFF THE NARCOTIC PAIN MEDICATIONS WITHIN A FEW DAYS AFTER SURGERY. Antibiotics: These will be prescribed after surgery typically for 3 days after surgery. Fill the prescription after surgery and take as directed. If you cannot tolerate the antibiotic then call the office during normal business hours and we can change the medication and call in a different antibiotic for you. If it is after normal office hours you can wait until the next day and call. It is not an emergency. Blood Clot or DVT: If you have calf pain not relieved by rest, shortness of breath or chest pain then go to the ER immediately for an evaluation for a blood clot. If you call the office we will send you to the ER for evaluation if you have these symptoms. Anesthesia: Rest for 24 hours after your surgery and anesthesia. Do not drive. Do not drink alcoholic beverages during this time. You may experience a sore throat or jaw, stiff neck or muscle aches after anesthesia. These symptoms should resolve over the next few days. Regional Block Anesthesia: This procedure involves medication injected into a region of the body, typically local anesthetic, by the anesthesiologist just before surgery that helps to numb that part of the body so there is much less pain after surgery. This allows less medication and anesthesia to be used in and after surgery for pain control. The block will start to wear off typically later on that day. Start taking your pain medication prior as stated above. Over the next few days you may experience some continued numbness and tingling that should resolve over the next several days and sometimes over a few weeks. As long as you are able to move the extremity and the skin is pink and warm with good pulses distally, this is usually normal. Infection: If you experience any of the following such as fever > 101', chills, night sweats, increasing pain, greenish or yellowish drainage from the operative wound, a foul smell from the operative wound or increasing redness or swelling around the incisions then call the office during normal office hours or go to the ER after office hours or on the weekend for evaluation. Constipation / Urinary Retention: The inability to have a bowel movement is constipation and the inability to urinate is urinary retention. These are symptoms most commonly caused by narcotic pain medication and some anesthesia. Drink plenty of fluids such as water a juice after surgery. If you are experiencing these symptoms you can take Colace a stool softener that you can buy at the pharmacy and take as directed. If urinary retention continues for hours or you feel your bladder is getting full and painful, then you should be evaluated at your closest ER as soon as possible. Decreasing narcotic pain medication use will help alleviate these symptoms. Diet: Start out with a clear liquid diet and then advance to your normal diet as tolerated. Nausea and Vomiting: If you are experiencing these symptoms after surgery you may need and anti-nausea medication such as Zofran or Phenergan. This can be called in during normal office hours by calling the office. If it is after normal office hours you may need to go to the ER for this medication. Low Grade Fever < 101': Typically, can occur after surgery for the first few days most commonly due to atelectasis or small areas in the lungs that close down. After surgery you need to take deep breathes in and out throughout the day to keep this from occurring. For example, take a deep breathein and hold it for 10 seconds and blow it out completely and repeat 10 times. Do this 4 times per day. Specific Surgical Procedure Instructions: These will be given to you separately depending on the surgical procedure you had done. These will include instructions for Activity, Wound Care, Dressing Changes, Physical Therapy and so on. - Normal office hours are Monday - Monday 8am - 5pm. - Dr. Almanzar's office number at [facility] is: [phone]. - If you need to make a physical therapy appointment please call [facility] at: [phone] -If you leave a message after normal office hours or on the weekend it will be answered the next office day. - If you call after normal office hours please remember that the physician is very limited as to what they can do. They cannot change or prescribe different pain medication over the phone. If you feel that your condition cannot wait until the next day and you need to be seen right away, then you should go to the nearest ER for evaluation after normal office hours and on the weekends. If possible go to [facility] ER at [address] [facility] [address] in [place]. UPPER EXTREMITY REPAIR SURGERY POST OP INSTRUCTIONS DR. ALMANZAR Activity and Comfort -Keep using ice to the operative area for 48 hours and then prn after. Use it intermittently for 20minutes on and 1 hour off. Then use as needed for swelling. For an ice pack put crushed ice in a plastic bag and cover it with a towel or use a plastic bag of frozen peas with a clean towel. - Elevate the operative arm also for swelling on a pillow above the level of your heart. - Move fingers daily and squeeze a towel or sponge every 2 hours with the operative hand to help decrease swelling. Weight Bearing - No weight bearing of the operative extremity until follow up. Wound Care - Maintain splint/dressing/immobilizer until follow up. - Do not get the incision/dressing/splint wet. - Do not take a bath, swim or get in a hot tub until you have seen your surgeon post-operatively. DVT prophylaxis -You may be placed on medication for prophylaxis against a DVT or blood clot after surgery if you have risk factors for DVT. You could be placed on Aspirin, Lovenox, Coumadin or other medication for this. Take the medication as directed for at least 2 weeks. Please notify your doctor for an excess bleeding. - Wearing your elastic DAVID hose stockings for 2 weeks, getting up and walking as much as possible and doing your exercises daily also help prevent DVT. Call the doctor right away during regular office hours or go to the [place] ER if after hours if you: -Signs of infection: redness, swelling, odor or drainage from incision, fever above 101 F, chills -Edges of incision -Have excessive calf pain especially when walking -Excessive bleeding from the incision site that does not stop -Have swelling, redness / bruising or sore calf when squeezed -Sudden, severe pain not relieved by medication -Loss or appetite, nausea or vomiting -Have chest pain or shortness of breath, call 911 -Inability to urinate for more than 8 hours -Severe sudden pain at or above your knee -Inability to bear weight if you were able to before Physical Therapy - Will start as directed after your first postoperative appointment. Call [facility] to schedule if not already done, . Follow-Up -Please call with any questions or concerns during normal office hours. -Call the office for an appointment in 7-10 days if you do not already have one, [phone]. 1ST POST OP APPT: 1ST PT APPT: Nausea and Vomiting After Surgery: Care Instructions Your Care Instructions After you've had surgery, you may feel sick to your stomach (nauseated) or you may vomit. Sometimesanesthesia can make you feel sick. It's a common side effect and often doesn't last long. Pain alsocan make you feel sick or vomit. After the anesthesia wears off, you may feel pain from the incision (cut). That pain could then upset your stomach. Taking pain medicine can also make you feel sick to your stomach. Whatever the cause, you may get medicine that can help. There are also some things you can do at home to prevent nausea and feel better. The doctor has checked you carefully, but problems can develop later. If you notice any problems ornew symptoms, get medical treatment right away. Follow-up care is a leblanc part of your treatment and safety. Be sure to make and go to all appointments, and call your doctor if you are having problems. It's also a good idea to know your test resultsand keep a list of the medicines you take. How can you care for yourself at home? Be safe with medicines. Read and follow all instructions on the label. If the doctor gave you a prescription medicine for pain, take it as prescribed. If you are not taking a prescription pain medicine, ask your doctor if you can take an iscr-rzg-oasvivy medicine. Take your pain medicine as soon as you have pain. It works better if you take it before the pain gets bad. Call your doctor if you have any problems with your medicine. Rest in bed until you feel better. To prevent dehydration, drink plenty of fluids, enough so that your urine is light yellow or clear like water. Choose water and other caffeine-free clear liquids until you feel better. If you have kidney, heart, or liver disease and have to limit fluids, talk with your doctor before you increase the amount of fluids you drink. When you are able to eat, try clear soups, mild foods, and liquids until all symptoms are gone for 12 to 48 hours. Other good choices include dry toast, crackers, cooked cereal, and gelatin dessert, such as Jell-O. Do not smoke. Smoking and being around smoke can make nausea worse. If you need help quitting, talkto your doctor about stop-smoking programs and medicines. These can increase your chances of quitting for good. When should you call for help? Call 911 anytime you think you may need emergency care. For example, call if: You passed out (lost consciousness). Call your doctor now or seek immediate medical care if: You have new or worse nausea or vomiting. You are too sick to your stomach to drink any fluids. You cannot keep down fluids. You have symptoms of dehydration, such as: Dry eyes and a dry mouth. Passing only a little dark urine. Feeling thirstier than usual. Your pain medicine is not helping. You are dizzy or lightheaded, or you feel like you may faint. Watch closely for changes in your health, and be sure to contact your doctor if: You do not get better as expected. Where can you learn more? Log into your personal health record on https://[employer] and enter M536 in the Education box to learn more about Nausea and Vomiting After Surgery documented in this encounter History of Present Illness * Rochelle Dewitt MD - 02/28/2019 12:57 PM EDT [facility] DAILY PROGRESS NOTE Assessment and Plan Elsa Catalan is a 58 y.o. 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 HEENT: Head- normocephalic; Throat- oropharynx normal, no stridor Cardiovascular: regular rate and rhythm; normal S1, S2; no murmurs, no peripheral edema. Respiratory: lungs clear to auscultation; without wheezes or accessory muscle use Abdomen: soft, non-tender, non-distended; positive bowel sounds Neurological: alert, oriented x 3, normal speech; no focal findings or movement disorder noted Musculoskeletal: right elbow immobilized Skin: normal coloration, no rashes Psych: normal mood and affect Review of Systems The following system(s) were reviewed: CV, GI, All other systems reviewed and negative, other than HPI. Objective BP (!) 155/91 (BP Location: Left arm, Patient Position: Sitting) Pulse 83 Temp 97.9 F (36.6 C) (Oral) Resp 14 Ht 5' 4 Wt 64.5 kg (142 lb 3.2 oz) SpO2 99% BMI 24.41 kg/m Results/Medications Reviewed 02/28/19 12:57 PM Laboratory, Medications and Transcriptions * Alyssia Faria CNP - 02/28/2019 10:27 AM EDT DAILY PROGRESS NOTE Patient Name: Elsa Catalan MR #: [id number] Hospital Course: No notes on file Assessment/Plan: Elbow pain Assessment & Plan POD # 1 RIGHT TOTAL ELBOW ARTHROPLASTY, ULNAR NERVE RELEASE WITH ANTERIOR TRANSPOSITION, RADIAL HEAD EXCISION - Pt HD stable afebrile - pre- op HGb 12, asymptomatic Lab Results Component Value Date HGB 9.8 (L) 02/28/2019 - Continue pain control prn with percocet - Cont IS q1 hr while awake - Cont dvt prophylaxis with david hose, SCDs, and early ambulation as tolerated - Cont NWB to operative extremity, maintain immobilizer in extension except for hand, wrist, and elbow ROM - Cont bowel regimen - Maintain incisional vac until day #7, patient instructed on use at bedside - Pt seen and evaluated by PT/OT - Ortho stable - Questions answered. Patient and family updated at bedside Plan discussed with Dr. Almanzar. Disposition: Plan on discharge today at 3pm and after working with OT Subjective/Objective: Perpetual Assessment: POD #1 RIGHT TOTAL ELBOW ARTHROPLASTY, ULNAR NERVE RELEASE WITH ANTERIOR TRANSPOSITION, RADIAL HEAD EXCISION . Patient doing well. Pain is controlled. Tolerating regular diet. No nausea or vomiting. + Flatus. + Voiding. Plans on ambulating with therapy. Wants to go home. Physical Examination: BP 133/69 (BP Location: Left arm, Patient Position: Lying) Pulse 99 Temp 98.3 F (36.8 C) (Oral) Resp 12 Ht 5' 4 Wt 64.5 kg (142 lb 3.2 oz) SpO2 96% BMI 24.41 kg/m General: NAD; Alert and oriented x3 Lungs: Clear without rales, rhonchi or wheezes; no increased respiratory effort Cardiovascular: RRR; no edema Abdomen: Positive bowel sounds; soft; non tender Post-Op Shoulder Exam: Right Elbow: Post op dressing CDI with incisional vac in place. NVI. Cap Refill less than 3 seconds and moving the fingers. Patient moving fingers better than last night, stilll working on extension of fingers. Patient having numbness, but started feeling burning and tinglingof all fingers today. Extremity pink and warm. Negative Jose Luis's. Psych: Mood and affect appropriate. Skin: No rashes; normal turgor. Intake/Output last 3 shifts: I/O last 3 completed shifts: In: 2876.9 [P.O.:1040; I.V.:1836.9] Out: 2600 [Urine:2250; Emesis/NG output:200; Blood:150] Results/Medications Reviewed 02/28/19 10:21 AM: Laboratory, Medications and Transcriptions Assessment Detail: Based on current clinical information, the expected discharge date is: today (02/28/2019) * Sonja Coleman RN - 02/27/2019 11:57 AM EDT Right elbow xray completed at bedside by [employer]. documented in this encounter* Rose Mendoza CNP - 04/23/2019 2:43 PM EDT Associated Order(s): Wound Debridement Post-Procedure Diagnose(s): Skin ulcer of elbow with fat layer exposed (HCC) WOUND CARE PROVIDER PROGRESS NOTE Patient Name: Elsa Catalan MR #: [id number] : 1960 ASSESSMENT, PLAN, & ORDERS: Goals of Therapy include: Heal the wound. If there is no significant improvement within 4 weeks or if there is a decline at any time, we will investigate causes of delay / decline and consider changing the treatment plan. Surgical Ulcer, s/p Arthroplasty of the Right Elbow with fat layer exposed, - Per patient, Declined. No signs of critical colonization or infection. Was debrided. Cleanse with Vashe, and allow to soak for 10 mins. Will use Xeroform, Mepilex Border, Elastic net, weekly. To be changed by Wound ClinicStaff. Follow up as planned with Surgeon, Dr Almanzar. Diabetes, HTN, Rheumatoid Arthritis, Fibromyalgia - These conditions have delayed healing. Per patient, Stable. Blood sugars averaging 150-200.. Patient reminded to keep blood sugar levels between 100-150. Blood glucose today 178. Recommend optimizing treatment plan. Follow up as planned with PCP and/or Specialist, who will continue to manage these comorbid conditions that affect wound healing. No results found for: HGBA1C Protein Needs, - Any degree of malnutrition / low protein stores can delay or prevent healing regardless of the body habitus. These conditions have delayed healing. Per patient, Weight and Protein intake Stable. Patient reports eating a moderate amount of protein. Patient reminded that nutritional intake should include high amounts of protein and low amount of carbohydrates and decrease caloric intake which will help heal the wound, lose weight, control blood sugars, control edema, Protein needs to be 80-100gms per day for proper wound healing. Patient also encouraged to increase activity to help with weight loss. They demonstrate understanding. Follow Up: 1wk SUBJECTIVE: Chief Complaint: Elbow wound History of Present Illness: Location: Right Elbow Quality / Type of Wound: Surgical Context / Cause: The patient has a history of Rheumatoid arthritis and has dealt with right elbow pain for years. On 02/27/19, she underwent a right total elbow arthroplasty by Dr Almanzar and the incision has not healed creating a non-healing wound. Patient is on long-term Prednisone. She was treatedwith 20 days of Bactrim bid. Modifying Factors / Therapies: DSD prior to coming to [facility]. Severity: Full thickness, Duration: 02/27/19 Timing: Chronic Review of Systems: Patient reports No unusual occurences of the following (unless addressed elsewhere): CONSTITUTION: fever, chills, night sweats, weight changes, RESPIRATORY: SOB, cough, wheeze; GASTROINTESTINAL: nausea, vomiting, diarrhea, constipation; Patient complains of some ulcer pain. Allergies: Penicillins OBJECTIVE: Vitals: BP (!) 162/85 Pulse 92 Temp 98.2 F (36.8 C) (Oral) Resp 18 Ht 5' 4 Wt 64.9 kg (143 lb) BMI 24.55 kg/m BP high, Patient reports that she feels anxious regarding her first appt today in wound clinic and blames it on that as well as her elbow pain. Last Weight 143 lbs, BMI 24.5 Physical Exam: Constitutional - No acute distress, Well groomed, Obese. Psychiatric - A&Ox3, judgement & insight wnl, memory grossly intact, mood & affect appropriate Neurological - Cranial Nerves - Cranial Nerves II through VIII (General assessement of vision, eye movement, chewing, facial expression, and hearing): Grossly intact. Sensation - Pt reports Using light touch found to be Grossly intact HEENT - Head: atraumatic, normocephalic Bilateral Eyes: pupils equal, conjunctiva pink & moist,sclera white Ears: symmetrical, No pain or Drainage, Nose: Midline, Nares patent, w/o drainage or pain, Mouth: Lips wnl, Mucous Membranes Moist, no ulcers or pain, Neck: trachea midline, Chest - Chest symmetrical, Respiratory - Non-labored breathing, no use of accessory muscles, Heart - Abdomen - Genitourinary - Lymph node - General Integumentary - Skin moisture, color, & temperature wnl, Musculoskeletal - No Tremor. Gait, Strength, Mobility, Range of Motion - Age appropriate w/o pain, Upper extremities - Right Elbow wound Lower Extremity: Vasculature - Bilateral - Edema - Skin & Hair - Bilateral - skin color, texture, & hair distribution wnl Feet and toes - Wound: No s/s of critical colinization or infection - Flow Sheet: Wound (Outpatient Only) 04/23/19 1 Elbow Right Acute (Active) Wound Image 04/23/2019 3:00 PM Wound Length (cm) 5 cm 04/23/2019 3:00 PM Wound Width (cm) 0.7 cm 04/23/2019 3:00 PM Wound Depth (cm) 0.1 cm 04/23/2019 3:00 PM Wound Surface Area (cm^2) 3.5 cm^2 04/23/2019 3:00 PM Wound Volume (cm^3) 0.35 cm^3 04/23/2019 3:00 PM Area % Change 0 04/23/2019 3:00 PM Volume % Change 0 04/23/2019 3:00 PM Tunneling Maximum Distance (cm) 0 cm 04/23/2019 3:00 PM Tunneling Position (o'clock) 0 04/23/2019 3:00 PM Undermining Maximum Distance #1 (cm) 0 cm 04/23/2019 3:00 PM Undermining Starting Position (o'clock) 1 0 04/23/2019 3:00 PM Undermining Ending Position (o'clock) 1 0 04/23/2019 3:00 PM Wound Encounter Initial 04/23/2019 3:00 PM Wound Progress Initial exam 04/23/2019 3:00 PM Non-staged Wound Description Full thickness 04/23/2019 3:00 PM Drainage Amount Small 04/23/2019 3:00 PM Drainage Description Yellow 04/23/2019 3:00 PM Odor None 04/23/2019 3:00 PM Wound Margin Undefined 04/23/2019 3:00 PM Adherent Yellow Slough % 51-75% 04/23/2019 3:00 PM Moist Yellow Slough % None 04/23/2019 3:00 PM Dry Black Eschar % None 04/23/2019 3:00 PM Moist Black Eschar % None 04/23/2019 3:00 PM Epithelialization % 1-25% 04/23/2019 3:00 PM Granulation % 1-25%;[place] 04/23/2019 3:00 PM Exposed Structure None 04/23/2019 3:00 PM Wound Bed Characteristics Dry;Yellow;Scab 04/23/2019 3:00 PM Ying-wound Assessment Temperature WNL;Dry 04/23/2019 3:00 PM Treatments Assist with debridement 04/23/2019 3:00 PM Hemostasis Manual pressure 04/23/2019 3:00 PM Cleansed Sodium hypochlorus solution 04/23/2019 3:00 PM Primary Dressing Impregnated gauze 04/23/2019 3:00 PM Secondary Dressing Bordered foam dressing 04/23/2019 3:00 PM Compression Dressing Not Applicable 04/23/2019 3:00 PM Wound Care Debridement Timeout: Verbal Consent obtained?: Yes Written Consent obtained?: Yes Consent given by: Patient Immediately prior to procedure a time out was called to verify the correct patient, procedure, equipment, sales support consultant and site/side marked as required Timeout performed: 04/24/2019 3:50 PM Debridement Procedure: Debridement Performed for Assessment: #1 Right elbow Performed by: Clinician Debridement Type: Surgical Pain Control: 4% Lidocaine Level: Skin/Subcutaneous Tissue Pre-Debridement Values: Length (cm): 5 Width (cm): 0.7 Depth (cm): 0.1 Area (sq cm): 3.5 Volume (cm3): 0.35 Post Debridement Measurements: Length (cm): 5.2 Width (cm): 1 Depth (cm): 0.3 Area (sq cm): 5.2 Volume (cm3): 1.56 Percent Debrided: 100 Total Area Debrided (sq cm): 5.2 Tissue and other material debrided: Subcutaneous, Epidermis and Dermis Devitalized tissue debrided: Slough and Fibrin Instrument: Curette Bleeding: Minimal Hemostasis Achieved: Pressure Procedural Pain: 4 Post Procedural Pain: 0 Response to Treatment: Procedure was tolerated well (....................... ..................................................................) Tests (i.e. radiographic, vascular, etc.): Labs: Lab Results Component Value Date WBC 11.09 (H) 02/28/2019 HGB 9.8 (L) 02/28/2019 HCT 30.6 (L) 02/28/2019 MCV 88.2 02/28/2019 PLT 327 02/28/2019 Ref Range: Hem 12-16, Hct 36-46 No results found for: PROT, ALBUMIN, PREALBUMIN Ref Range: Total Protein 6-8, Albumin 3.2-5.2, Prealbumin 20-40 No results found for: HGBA1C Ref Range: HgbA1c 4-6 Lab Results Component Value Date GLUCOSE 104 (H) 02/28/2019 CALCIUM 7.6 (L) 02/28/2019 NA 138 02/28/2019 K 3.3 (L) 02/28/2019 CL 104 02/28/2019 BUN 12 02/28/2019 CREATININE 0.55 02/28/2019 No results found for: ALT, AST, GGT, ALKPHOS, BILITOT No results found for: INR, PROTIME Review of History: The following items of the Patient's History were reviewed: Cultures, Imaging, Medical records fromprevious provider reviewed & summarized, chemistry, allergies, problem list, current medications, past medical history, past surgical history, past social history and past family history. History: Past Medical History: Diagnosis Date Asthma Chronic pain disorder Diabetes mellitus, type 2 (HCC) Fatty liver Fibromyalgia, primary GERD (gastroesophageal reflux disease) Headache Hypertension Hypothyroidism PONV (postoperative nausea and vomiting) Rheumatoid arthritis (HCC) TMJ (dislocation of temporomandibular joint) Past Surgical History: Procedure Laterality Date ARTHROPLASTY ELBOW TOTAL Right 02/27/2019 Procedure: RIGHT TOTAL ELBOW ARTHROPLASTY, ULNAR NERVE RELEASE WITH ANTERIOR TRANSPOSITION, RADIAL HEAD EXCISION; Surgeon: Ayde Almanzar DO; Location: [facility] Main OR; Service: Orthopedic HYSTERECTOMY Still has ovaries JOINT REPLACEMENT Right knee THYROIDECTOMY Social History Socioeconomic History Marital status: Spouse name: Not on file Number of children: Not on file Years of education: Not on file Highest education level: Not on file Occupational History Not on file Social Needs Financial resource strain: Not on file Food insecurity: Worry: Not on file Inability: Not on file Transportation needs: Medical: Not on file Non-medical: Not on file Tobacco Use Smoking status: Never Smoker Smokeless tobacco: Never Used Substance and Sexual Activity Alcohol use: Never Frequency: Never Drug use: Never Sexual activity: Not on file Lifestyle Physical activity: Days per week: Not on file Minutes per session: Not on file Stress: Not on file Relationships Social connections: Talks on phone: Not on file Gets together: Not on file Attends samaritan service: Not on file Active member of club or organization: Not on file Attends meetings of clubs or organizations: Not on file Relationship status: Not on file Other Topics Concern Not on file Social History Narrative Not on file No family history on file. Rose Mendoza CNP Electronically signed by the above provider 04/23/19 Perpetual Wound History: Pt first seen in on 04/23/19, for elbow ulcer. 04/23/19 Right Elbow - Declined, per pt, no s/s of infection, debrided, Cleanse with Vashe, and allow to soak for 10 mins. Will use Xeroform, Mepilex Border, weekly. documented in this encounter* Rose Mendoza CNP - 04/30/2019 2:24 PM EDT WOUND CARE PROVIDER PROGRESS NOTE Patient Name: Elsa Catalan MR #: [id number] : 1960 ASSESSMENT, PLAN, & ORDERS: Goals of Therapy include: Heal the wound. Surgical Ulcer, s/p Arthroplasty of the Right Elbow with fat layer exposed, - Healed. Will continueXeroform, Mepilex Border, Elastic net, for one more week. Follow up as planned with Surgeon, Dr Almanzar on 05/07/19. Diabetes, HTN, Rheumatoid Arthritis, Fibromyalgia - These conditions have delayed healing. Per patient, Stable. Blood sugars averaging 150-200.. Patient reminded to keep blood sugar levels between 100-150. Blood glucose today 163. Recommend optimizing treatment plan. Follow up as planned with PCP and/or Specialist, who will continue to manage these comorbid conditions that affect wound healing. No results found for: HGBA1C Protein Needs, - Any degree of malnutrition / low protein stores can delay or prevent healing regardless of the body habitus. These conditions have delayed healing. Per patient, Weight and Protein intake Stable. Patient reports eating a moderate amount of protein. Patient reminded that nutritional intake should include high amounts of protein and low amount of carbohydrates and decrease caloric intake which will help heal the wound, lose weight, control blood sugars, control edema, Protein needs to be 80-100gms per day for proper wound healing. Patient also encouraged to increase activity to help with weight loss. They demonstrate understanding. Follow Up: PRN SUBJECTIVE: Chief Complaint: Elbow wound History of Present Illness: Location: Right Elbow Quality / Type of Wound: Surgical Context / Cause: The patient has a history of Rheumatoid arthritis and has dealt with right elbow pain for years. On 02/27/19, she underwent a right total elbow arthroplasty by Dr Almanzar and the incision has not healed creating a non-healing wound. Patient is on long-term Prednisone. She was treatedwith 20 days of Bactrim bid. Modifying Factors / Therapies: DSD prior to coming to [facility]. Severity: Full thickness, Duration: 02/27/19 Timing: Chronic Review of Systems: Patient reports No unusual occurences of the following (unless addressed elsewhere): CONSTITUTION: fever, chills, night sweats, weight changes, RESPIRATORY: SOB, cough, wheeze; NEUROLOGICAL: dizziness, headache, change in mental status, change in speech, change in sensation; Patient complains of some ulcer pain. Informed pain may continue for a few more months during healing process. Allergies: Penicillins OBJECTIVE: Vitals: BP (!) 174/95 Pulse 93 Temp 98.5 F (36.9 C) (Oral) Resp 18 BP high, Patient reports that her BP has been elevated in the past. Patient with follow-up appt with surgeon on 05/07/19. Instructed to schedule appt with PCP if BP elevated for medication adjustments. Last Weight 143 lbs, BMI 24.5 Physical Exam: Constitutional - No acute distress, Well groomed, Obese. Psychiatric - A&Ox3, judgement & insight wnl, memory grossly intact, mood & affect appropriate Neurological - Cranial Nerves - Cranial Nerves II through VIII (General assessement of vision, eye movement, chewing, facial expression, and hearing): Grossly intact. Sensation - Pt reports Using light touch found to be Grossly intact HEENT - Head: atraumatic, normocephalic Bilateral Eyes: pupils equal, conjunctiva pink & moist,sclera white Ears: symmetrical, No pain or Drainage, Nose: Midline, Nares patent, w/o drainage or pain, Mouth: Lips wnl, Mucous Membranes Moist, no ulcers or pain, Neck: trachea midline, Chest - Chest symmetrical, Respiratory - Non-labored breathing, no use of accessory muscles, Heart - Abdomen - Genitourinary - Lymph node - General Integumentary - Skin moisture, color, & temperature wnl, Musculoskeletal - No Tremor. Gait, Strength, Mobility, Range of Motion - Age appropriate w/o pain, Upper extremities - Lower Extremity: Vasculature - Bilateral - Edema - Skin & Hair - Bilateral - skin color, texture, & hair distribution wnl Feet and toes - Wound: Healed. Procedures Labs: Lab Results Component Value Date WBC 11.09 (H) 02/28/2019 HGB 9.8 (L) 02/28/2019 HCT 30.6 (L) 02/28/2019 MCV 88.2 02/28/2019 PLT 327 02/28/2019 Ref Range: Hem 12-16, Hct 36-46 No results found for: PROT, ALBUMIN, PREALBUMIN Ref Range: Total Protein 6-8, Albumin 3.2-5.2, Prealbumin 20-40 No results found for: HGBA1C Ref Range: HgbA1c 4-6 Lab Results Component Value Date GLUCOSE 104 (H) 02/28/2019 CALCIUM 7.6 (L) 02/28/2019 NA 138 02/28/2019 K 3.3 (L) 02/28/2019 CL 104 02/28/2019 BUN 12 02/28/2019 CREATININE 0.55 02/28/2019 No results found for: ALT, AST, GGT, ALKPHOS, BILITOT No results found for: INR, PROTIME Review of History: The following items of the Patient's History were reviewed: Cultures, Imaging, chemistry, allergies, problem list, current medications, past medical history, past surgical history, past social history and past family history. History: Past Medical History: Diagnosis Date Asthma Chronic pain disorder Diabetes mellitus, type 2 (HCC) Fatty liver Fibromyalgia, primary GERD (gastroesophageal reflux disease) Headache Hypertension Hypothyroidism PONV (postoperative nausea and vomiting) Rheumatoid arthritis (HCC) TMJ (dislocation of temporomandibular joint) Past Surgical History: Procedure Laterality Date ARTHROPLASTY ELBOW TOTAL Right 02/27/2019 Procedure: RIGHT TOTAL ELBOW ARTHROPLASTY, ULNAR NERVE RELEASE WITH ANTERIOR TRANSPOSITION, RADIAL HEAD EXCISION; Surgeon: Ayde Almanzar DO; Location: [facility] Main OR; Service: Orthopedic HYSTERECTOMY Still has ovaries JOINT REPLACEMENT Right knee THYROIDECTOMY Social History Socioeconomic History Marital status: Spouse name: Not on file Number of children: Not on file Years of education: Not on file Highest education level: Not on file Occupational History Not on file Social Needs Financial resource strain: Not on file Food insecurity: Worry: Not on file Inability: Not on file Transportation needs: Medical: Not on file Non-medical: Not on file Tobacco Use Smoking status: Never Smoker Smokeless tobacco: Never Used Substance and Sexual Activity Alcohol use: Never Frequency: Never Drug use: Never Sexual activity: Not on file Lifestyle Physical activity: Days per week: Not on file Minutes per session: Not on file Stress: Not on file Relationships Social connections: Talks on phone: Not on file Gets together: Not on file Attends samaritan service: Not on file Active member of club or organization: Not on file Attends meetings of clubs or organizations: Not on file Relationship status: Not on file Other Topics Concern Not on file Social History Narrative Not on file Family History Problem Relation Age of Onset Heart disease Mother Arthritis Father Asthma Father Diabetes Father Rose Mendoza CNP Electronically signed by the above provider 04/30/19 Perpetual Wound History: Pt first seen in on 04/23/19, for elbow ulcer. 04/23/19 Right Elbow - Declined, per pt, no s/s of infection, debrided, Cleanse with Vashe, and allow to soak for 10 mins. Will use Xeroform, Mepilex Border, weekly. 04/30/19 Right Elbow-Healed. Will continue xeroform, mepilex border to wound for one more week. Follow-up with Wound Care Clinic PRN. Cathy David RN - 04/30/2019 1:54 PM EDT Rose Mendoza CUPOLA PATCHER made aware of patient blood pressure reading. documented in this encounter* Marilyn Ramirez CNP - 09/05/2019 10:49 AM EST ORTHOPEDIC SURGERY DAILY PROGRESS NOTE Patient Name: Elsa Catalan MR #: [id number] POD # 1 - Pt HD stable, had a temp of 102 this morning otherwise afebrile post-op - UA and CXR negative - Labs unremarkable, no leukocytosis - Continue pain control with Oxycontin q12h, block still intact no pain currently - Cont IS q1 hr while awake - Cont NWB to operative extremity except ROM BID - Wear splint and maintain in extension at all times except for range of motion twice daily. - Cont bowel regimen - Start daily dressing changes with adaptic, ABD and HUGO wrap POD#2 - PT consulted for ROM elbow/wrist/hand BID - Ortho stable - Questions answered. Patient and family updated at bedside - [facility] following for medical management/appreciate recs Plan discussed with Dr. Almanzar. DISPO: Likely discharged home later today once seen by PT and stable per [facility] Subjective: Perpetual Assessment: POD #1 . Patient doing well. Pain is controlled. Tolerating regular diet. No nausea or vomiting. + Flatus. Voiding. Sitting up in chair. Review of Systems: Constitutional: No fever, no weight loss Eyes: No diplopia ENT: No sinus drainage CV: No chest pain. No ankle swelling Resp: No dyspnea. No wheezing GI: No abdominal pain on palpation.No abdominal distention : No dysuria Neuro: No headache Integumentary: No skin rash MuscSkel: No dysarthrias. No joint pain. No edema. Left/Right splint Psych:No unusual mood swings All other systems reviewed and negative other than HPI Objective: Recent vital signs reviewed Current vital signs: BP (!) 103/59 (BP Location: Left arm, Patient Position: Lying) Pulse (!) 102 Temp 98.3 F (36.8 C) (Oral) Resp 14 Ht 5' 5 Wt 73.5 kg (162 lb 0.6 oz) SpO2 99% BMI 26.96 kg/m I/O No intake/output data recorded. Physical Examination: General: NAD; Alert and oriented x3 Lungs: Clear without rales, rhonchi or wheezes; no increased respiratory effort Cardiovascular: RRR; no edema : Voiding without difficulty GI: Positive bowel sounds. +flatus MUSK: Left/Right elbow posterior splint dry/intact. Immobilizer on. NVI. Cap Refill less than 3 seconds and moving the fingers. Extremity pink and warm. Laboratory Studies: Recent laboratory studies reviewed CBC: Results from last 7 days Lab Units 08/26/19 0322 WBC K/mcL 7.88 HGB g/dL 8.4* HCT % 27.3* PLT K/mcL 175 Results from last 7 days Lab Units 08/26/19 0322 08/24/19 0410 HGB g/dL 8.4* 9.5* Chem: Results from last 7 days Lab Units 08/26/19 0322 SODIUM mmol/L 136 POTASSIUM mmol/L 3.4* CHLORIDE mmol/L 105 BUN mg/dL 19 CREATININE mg/dL 0.70 CALCIUM mg/dL 8.1* GLUCOSE mg/dL 104* Results from last 7 days Lab Units 08/26/19 0322 08/24/19 0410 CREATININE mg/dL 0.70 0.79 Diagnostic Imaging: Recent diagnostic imaging/reports reviewed Jackie Torres CNP Department of Surgery [phone] Also available on [employer] 08/26/19 8:13 AM * Meenakshi Lim RN - 09/05/2019 9:37 AM EST Anesthesia Progress Note 1 Day Post-Op Procedure(s): LEFT TOTAL ELBOW ARTHROPLASTY WITH ULNAR NERVE RELEASE WITH ANTERIOR TRANSPOSITION, EXCISION RADIALHEAD Assessment / Plan Subjective Denies: nausea/vomiting Patient participation: patient participated Mental status: awake Nausea / vomiting: no Comment: In no acute distress. Awake and alert, LOC x 3. NATHAN x 4, up with assist as tolerated. Denies post-op nausea, vomiting or sore throat. Questions addressed. Patient states regional block is still working, moves finger left hand slight and warm to touch, brisk cap refill. Temp: [36.3 C-39.4 C] 38.1 C Heart Rate: [89-108] 108 Resp: [11-20] 12 BP: (112-193)/(66-106) 121/72 SpO2: [88 %-100 %] 99 % * Izabella Huang RN - 09/04/2019 3:27 PM EST Patient continues to report nausea, Dr. Erazo Triage Anesthesia updated with hx, meds given. Ordersgivne for Compazine. * Izabella Huang RN - 09/04/2019 2:53 PM EST Second call to Pharmacy regarding Labetalol-medication is being tubed to PACU. * Izabella Huang RN - 09/04/2019 2:41 PM EST PACU Pyxis out of Labetalol-Pharmacy contacted; will bring supply to PACU. * Izabella Huang RN - 09/04/2019 2:26 PM EST Xray done at bedside. Dr. Qiu at bedside and updated with FSBS and SBP/DBP. Pt reporting no pain. Ok to administer ordered Labetalol. documented in this encounter* Pepe Oropeza RN - 10/14/2019 5:22 PM EST 2 scripts sent home. Pt refused review of AVS and wheelchair downstairs. * Marzena Wiley CNP - 10/14/2019 1:07 PM EST DAILY PROGRESS NOTE Patient Name: Elsa Catalan MR #: [id number] Hospital Course: No notes on file Assessment/Plan: Non-healing wound of upper extremity Assessment & Plan POD 1 S/p INCISION AND DRAINAGE LEFT ELBOW WITH WOUND VAC APPLICATION HD stable Labs unremarkable A febrile Plan - Continue current pain management-prescription provided for discharge - Po Bactrim x 7 days at discharge - Educated on tight glycemic control to promote wound healing - Pt discussed with Dr. Almanzar - kwame for discharge once HHC and wound vac set up - Follow up appointment with Dr. Almanzar in two weeks Subjective/Objective: Perpetual Assessment: Elsa Catalan is a 59 y.o. y/o female on hospital day 0 States she is comfortable Flatus + Patient resting in bed, no distress noted Review of Systems: The following system(s) were reviewed: Cardio: no chest pain Pulm: no shortness of breath Abd:passing flatus, no GI upset : No dysuria Physical Examination: BP 134/86 (BP Location: Right arm, Patient Position: Lying) Pulse 81 Temp 98.3 F (36.8 C) (Oral) Resp 14 Ht 5' 4 Wt 64 kg (141 lb 1.5 oz) SpO2 97% BMI 24.22 kg/m General: Awake, appropriate, No acute distress, LOC x3 Lungs: Easy and unlabored Cardiovascular: RRR; Abdomen: Positive bowel sounds; soft; non tender. Positive flatus, tolerating diet : voiding without difficulty Extremity: Left extremity wrapped with hugo bandage, wound vac and splint in place. Minimal seurosangous drainage noted in wound vac container. Numbness noted in pinky. Median, radian and ulnar nerve testing normal and intact. No swelling noted. Capillary refill less than 3 sec. Warm and dry Intake/Output last 3 shifts: I/O last 3 completed shifts: In: 800 [P.O.:500; I.V.:200; IV Piggyback:100] Out: 620 [Urine:600; Drains:10; Blood:10] Results/Medications Reviewed 10/14/19 12:53 PM: Laboratory and Microbiology Assessment Detail: Based on current clinical information, the expected discharge date is: today (10/14/2019) * Nusrat Marx MD - 10/14/2019 1:04 PM EST [facility] DAILY PROGRESS NOTE Assessment and Plan Elsa Catalan is a 59 y.o. female patient of Pretty Fermin MD with history of rheumatoid arthritis, diabetes on insulin presented with non healing left elbow arthroscopy wound with associated ulnar neuropathy Non healing left elbow wound Hx of left elbow contracture Left elbow arthroplasty with ulnar release 09/04 With decreased hand strength and ulnar pain No symptoms of systemic infection S/p I&D with wound vac placement Does not appear to be infected, no cultures sent from review of Op Note SW to arrange for wound vac as an outpatient RA Takes Methotrexate, Sulfasalazine, Leflunomide and Humira which have been restarted Consider involving her Director Of Radio Services to discuss risks/benefits DM Lantus with sliding scale insulin. Acceptable accuchecks. Hypothyroid Synthroid HLD Statin Code Status: Full Code Quality Measures DVT Prophylaxis: Lovenox Hickey Catheter: n/a Disposition Discharge Location: Home Estimated Discharge Date: 10/14 Outpatient Testing: TBD Subjective Denies headache, double vision, chest pain, dyspnea, cough, sputum, palpitations, tremors, nausea, vomiting, diarrhea, constipation. Tingling numbness in the left arm. Discussed the plan of care. Review of Systems All systems have been reviewed and are negative except as noted in HPI or below Objective BP 134/86 (BP Location: Right arm, Patient Position: Lying) Pulse 81 Temp 98.3 F (36.8 C) (Oral) Resp 14 Ht 5' 4 Wt 64 kg (141 lb 1.5 oz) SpO2 97% BMI 24.22 kg/m Physical Examination General Appearance: alert, well appearing, and in no acute distress HEENT: Head- normocephalic; Throat- oropharynx normal Cardiovascular: regular rate and rhythm; normal S1, S2; no murmurs, rubs, clicks or gallops; no peripheral edema Respiratory: lungs clear to auscultation; without wheezes, rales or rhonchi Abdomen: soft, non-tender, non-distended; positive bowel sounds Neurological: alert, oriented x 3, normal speech; no focal findings or movement disorder noted Musculoskeletal: LUE with dressing and wound vac in place Skin: normal coloration, texture and turgor; no lesions or eruptions Psych: normal mood and affect Results/Medications Reviewed 10/14/19 1:04 PM Laboratory, Radiology, Medications and Transcriptions Ayde Lepe DO - 10/14/2019 12:48 PM EST Elsa Lingant 59 y.o. female Subjective: S/P Left Elbow I&D w/ VAC POD#1 - Patient resting comfortably upright in bed. Pain controlled. Objective: Ortho Exam Left Upper Extremity - Dressing/Incision is C/D/I. N/T small finger, motor intact R/U/M. CR < 3 sec. Negative Jose Luis's sign BLE. Wound VAC intact. BP 134/86 (BP Location: Right arm, Patient Position: Lying) Pulse 81 Temp 98.3 F (36.8 C) (Oral) Resp 14 Ht 5' 4 Wt 64 kg (141 lb 1.5 oz) SpO2 97% BMI 24.22 kg/m I/O last 3 completed shifts: In: 800 [P.O.:500; I.V.:200; IV Piggyback:100] Out: 620 [Urine:600; Drains:10; Blood:10] No intake/output data recorded. Results/Medications Reviewed 10/14/19 12:49 PM: Laboratory Assessment/Plan: S/P Left Elbow I&D w. VAC POD # 1 -NWB LUE. Maintain splint for 1 week then d/c and start ROM elbow -PT/OT following - Hand and wrist ROM for 1 week then start elbow ROM. -DVT with prophylaxis of DAVID hose, SCD's, foot pumps, and early ambulation. -Wound vac in place, HH for vac changes M/W/F -IS Q 1 hour while awake. -Ortho stable. -5 lb limit LUE after 1 week -SS consulted - D/C home today if VAC approved -F/U 2 weeks Ayde Almanzar DO * Rosa Cooper LISW-Amberly - 10/14/2019 10:21 AM EST COMPLEX DISCHARGE Date: 10/14/2019 Time: 10:21 AM Patient Name: Elsa Catalan Date of : 1960 Sex: Female 1:47 pm: GLORIA attempted to reach Evan [facility] rep. Per his voice mail, he is out of the area this week. GLORIA called the [facility] office ([phone]) and spoke with Meeta. She stated that she has put a note on the case to request that it be expedited. 1:28 pm: GLORIA spoke with Susana at [facility]. Susana stated that she was currently reviewing case and needed to see if they were able to accept from a staffing perspective. Susana will provide response to GLORIA. 11:28 am: Wound vac order submitted and prescription faxed. GLORIA met with pt in pt's room. Pt reported that she thought that [facility] serviced her area. She believes that she utilized [facility] 7 years ago. GLORIA checked with [facility] liaison, but [facility] does not service pt's home area. GLORIA made referral to [facility]. They report that they do service this area. Await response regarding ability to accept. Discharge Planning Living Arrangements: Spouse/significant other Support Systems: Spouse/significant other Assistance Needed: min Type of Residence: Private residence Prior to Admission Home Care Services: No Discharge Readiness Expected Discharge Date: 10/14/19 Barriers to Discharge: Pre-certification [facility] Disposition D/C Disposition: Home Health Care Services Related to Current Admission?: Yes Agency/Destination: Other(TBD) HME: Other (Comment)(wound vac) HME Agency: Other (Comment)([facility]) * Sherrill Chung LISW - 10/13/2019 7:08 PM EST DISCHARGE PLAN PROGRESS NOTE Date: 10/13/2019 Time: 7:09 PM Patient Name: Elsa Catalan Date of : 1960 Sex: Female SW submitted clinicals to [facility] for wound vac approval and will f/u on Monday re: outcome. Pt has [employer] insurance. SW will need to f/u with pt re: RN for wound vac/dressing change needs. She lives in [facility]. Discharge Readiness Expected Discharge Date: 10/14/19 Barriers to Discharge: Pre-certification [facility] Disposition D/C Disposition: Home Health Care Services Related to Current Admission?: Yes Agency/Destination: Other(TBD) HME: Other (Comment)(wound vac) HME Agency: Other (Comment)([facility]) * YangJaDO - 10/13/2019 3:29 PM EST [facility] DAILY PROGRESS NOTE Assessment and Plan Elsa Catalan is a 59 y.o. female patient of Pretty Fermin MD with history of rheumatoid arthritis, diabetes on insulin presented with non healing left elbow arthroscopy wound with associated ulnar neuropathy Non healing left elbow wound Hx of left elbow contracture Left elbow arthroplasty with ulnar release 09/04 With decreased hand strength and ulnar pain No symptoms of systemic infection S/p I&D with wound vac placement Does not appear to be infected, no cultures sent from review of Op Note SW to arrange for wound vac as an outpatient Nausea After receiving pain medication Symptomatic treatment RA Takes Methotrexate, Sulfasalazine, Leflunomide and Humira which have been restarted Consider involving her Director Of Radio Services to discuss risks/benefits DM Lantus with sliding scale insulin. Dose adjusted for this evening Hypothyroid Synthroid HLD Statin Code Status: Full Code Quality Measures DVT Prophylaxis: Lovenox Hickey Catheter: n/a Disposition Discharge Location: Home Estimated Discharge Date: 10/14 Outpatient Testing: TBD Subjective No acute issues overnight. The patient went to the OR today for I&D with wound vac placement. Surgery without complications. She denies any fevers. Pain is adequately controlled. Review of Systems All systems have been reviewed and are negative except as noted in HPI or below Objective BP (!) 152/91 (BP Location: Right arm, Patient Position: Lying) Pulse 86 Temp (!) 96.4 F (35.8 C) (Axillary) Resp 14 Ht 5' 4 Wt 64 kg (141 lb 1.5 oz) SpO2 97% BMI 24.22 kg/m Physical Examination General Appearance: alert, well appearing, and in no acute distress HEENT: Head- normocephalic; Throat- oropharynx normal Cardiovascular: regular rate and rhythm; normal S1, S2; no murmurs, rubs, clicks or gallops; no peripheral edema Respiratory: lungs clear to auscultation; without wheezes, rales or rhonchi Abdomen: soft, non-tender, non-distended; positive bowel sounds Neurological: alert, oriented x 3, normal speech; no focal findings or movement disorder noted Musculoskeletal: LUE with dressing and wound vac in place Skin: normal coloration, texture and turgor; no lesions or eruptions Psych: normal mood and affect Results/Medications Reviewed 10/13/19 3:29 PM Laboratory, Radiology, Medications and Transcriptions documented in this encounter* Cathy Deleon RN - 10/08/2019 11:27 AM EST Dressing supplies ordered today through [facility] * Cathy Deleon RN - 10/08/2019 11:05 AM EST Rose Mendoza CNP made aware of patient blood pressure reading. Patient denies any headaches, vision changes, SOB, tingling in extremities. Patient states she is experiencing a lot of nerve pain in her left arm from her surgery * Rose Mendoza CNP - 10/08/2019 10:35 AM EST Associated Order(s): Wound Debridement Post-Procedure Diagnose(s): Skin ulcer of elbow with fat layer exposed (HCC) WOUND CARE PROVIDER PROGRESS NOTE Patient Name: Elsa Catalan MR #: [id number] : 1960 ASSESSMENT, PLAN, & ORDERS: Goals of Therapy include: Heal the wound. If there is no significant improvement within 4 weeks or if there is a decline at any time, we will investigate causes of delay / decline and consider changing the treatment plan. Surgical Ulcer, s/p Arthroplasty of the Left Elbow with fat layer exposed, - New. Some signs of infection. Was debrided. Tissue sent for culture. Will use Acetic Acid moistened gauze, DSD, Spandagrip2 times each day Follow up as planned with Surgeon, Dr Almanzar on 10/10/19. Diabetes, HTN, Rheumatoid Arthritis, Fibromyalgia - These conditions have delayed healing. Per patient, Stable. Blood sugars averaging 150-200.. Patient reminded to keep blood sugar levels between 100-150. Blood glucose today 163. Recommend optimizing treatment plan. Follow up as planned with PCP and/or Specialist, who will continue to manage these comorbid conditions that affect wound healing. No results found for: HGBA1C Protein Needs, - Any degree of malnutrition / low protein stores can delay or prevent healing regardless of the body habitus. These conditions have delayed healing. Per patient, Weight and Protein intake Stable. Patient reports eating a moderate amount of protein. Patient reminded that nutritional intake should include high amounts of protein and low amount of carbohydrates and decrease caloric intake which will help heal the wound, lose weight, control blood sugars, control edema, Protein needs to be 80-100gms per day for proper wound healing. Patient also encouraged to increase activity to help with weight loss. They demonstrate understanding. Follow Up: 1wk SUBJECTIVE: Chief Complaint: Elbow wound History of Present Illness: Location: Left Elbow Quality / Type of Wound: Surgical Context / Cause: The patient has a history of Rheumatoid arthritis and has dealt with elbow pain for years. On 02/27/19, she underwent a right total elbow arthroplasty by Dr Almanzar. On 09/03/19, she underwent her Left elbow, post- operatively the patient stated that she had a large hematoma that was not drained, her incision opened up and became necrotic. Modifying Factors / Therapies: DSD prior to coming to [facility]. Severity: Full thickness, Duration: 09/03/19 Timing: Chronic Review of Systems: Patient reports No unusual occurences of the following (unless addressed elsewhere): CONSTITUTION: fever, chills, night sweats, weight changes, RESPIRATORY: SOB, cough, wheeze; GASTROINTESTINAL: nausea, vomiting, diarrhea, constipation; Patient complains of Left Hand nerve pain with numbness, burning sensation, tingling. Allergies: Lisinopril; Adhesive tape-silicones; and Penicillins OBJECTIVE: Vitals: BP (!) 179/99 Pulse 95 Temp 98 F (36.7 C) (Oral) Resp 16 Ht 5' 4 Wt 64.9 kg (143 lb) BMI 24.55 kg/m BP high, Patient reports that she has severe nerve pain to her left hand causing her to cry and causing her BP to be elevated today. Last Weight 143 lbs, BMI 24.5 Physical Exam: Constitutional - No acute distress, Well groomed, Obese. Psychiatric - A&Ox3, judgement & insight wnl, memory grossly intact, mood & affect appropriate Neurological - Cranial Nerves - Cranial Nerves II through VIII (General assessement of vision, eye movement, chewing, facial expression, and hearing): Grossly intact. Sensation - Pt reports Using light touch found to be Grossly intact Chest - Respiratory - Non-labored breathing, no use of accessory muscles, Heart - Abdomen - Genitourinary - Lymph node - General Integumentary - Skin moisture, color, & temperature wnl, Musculoskeletal - No Tremor. Gait, Strength, Mobility, Range of Motion - Age appropriate w/o pain, Upper extremities - Left Elbow ulcer Lower Extremity: Vasculature - Edema - Skin & Hair - Bilateral - skin color, texture, & hair distribution wnl Feet and toes - Wound: Some S/S of Infection - indurated, edema, pain, larger, non-healing, Other observable items include: necrotic soft tissue, Flowsheet: Wound 09/04/19 Surgical Wound Arm Left (Active) Wound 10/08/19 2 Surgical Ulcer Elbow Left (Active) Wound Image 10/08/2019 10:00 AM Wound Length (cm) 10.5 cm 10/08/2019 10:00 AM Wound Width (cm) 4.5 cm 10/08/2019 10:00 AM Wound Depth (cm) 0.1 cm 10/08/2019 10:00 AM Wound Surface Area (cm^2) 47.25 cm^2 10/08/2019 10:00 AM Wound Volume (cm^3) 4.72 cm^3 10/08/2019 10:00 AM Area % Change 0 10/08/2019 10:00 AM Tunneling Maximum Distance (cm) 0 cm 10/08/2019 10:00 AM Tunneling Position (o'clock) 0 10/08/2019 10:00 AM Tunneling Maximum Distance (cm) 0 cm 10/08/2019 10:00 AM Tunneling Position (o'clock) 0 10/08/2019 10:00 AM Undermining Maximum Distance (cm) 1 0 cm 10/08/2019 10:00 AM Undermining Starting Position (o'clock) 1 0 10/08/2019 10:00 AM Undermining Ending Position (o'clock) 1 0 10/08/2019 10:00 AM Undermining Maximum Distance (cm) 2 0 cm 10/08/2019 10:00 AM Undermining Starting Position (o'clock) 2 0 10/08/2019 10:00 AM Undermining Ending Position (o'clock) 2 0 10/08/2019 10:00 AM Wound Progress Initial exam 10/08/2019 10:00 AM Non-staged Wound Description Eschar covered 10/08/2019 10:00 AM Drainage Amount Small 10/08/2019 10:00 AM Drainage Description Serosanguineous;Yellow 10/08/2019 10:00 AM Odor None 10/08/2019 10:00 AM Wound Margin Undefined 10/08/2019 10:00 AM Adherent Yellow Slough % None 10/08/2019 10:00 AM Moist Yellow Slough % None 10/08/2019 10:00 AM Dry Black Eschar % 76-100% 10/08/2019 10:00 AM Moist Black Eschar % None 10/08/2019 10:00 AM Epithelialization % None 10/08/2019 10:00 AM Granulation % None 10/08/2019 10:00 AM Exposed Structure None 10/08/2019 10:00 AM Wound Bed Characteristics Brown 10/08/2019 10:00 AM Ying-wound Assessment Clean;Dry;Temperature WNL 10/08/2019 10:00 AM Treatments Assist with debridement 10/08/2019 10:00 AM Hemostasis Manual pressure 10/08/2019 10:00 AM Cleansed Sterile saline 10/08/2019 10:00 AM Primary Dressing Sodium hypochlorus solution (VASHE) 10/08/2019 10:00 AM Secondary Dressing Highly absorbent dressing;Gauze pad 10/08/2019 10:00 AM Compression Dressing Tubilar eleastic bandage 10/08/2019 10:00 AM Wound Care Debridement Timeout: Verbal Consent obtained?: Yes Written Consent obtained?: Yes Consent given by: Patient Immediately prior to procedure a time out was called to verify the correct patient, procedure, equipment, sales support consultant and site/side marked as required Timeout performed: 10/08/2019 11:12 AM Debridement Procedure: Debridement Performed for Assessment: #2 Left Elbow Performed by: Clinician Debridement Type: Surgical Pain Control: 4% Lidocaine Level: Skin/Subcutaneous Tissue Pre-Debridement Values: Length (cm): 10.5 Width (cm): 4.5 Depth (cm): 0.1 Area (sq cm): 47.25 Volume (cm3): 4.73 Post Debridement Measurements: Length (cm): 11 Width (cm): 5 Depth (cm): 2 Area (sq cm): 55 Volume (cm3): 110 Percent Debrided: 100 Total Area Debrided (sq cm): 55 Tissue and other material debrided: Subcutaneous, Dermis and Epidermis Devitalized tissue debrided: Slough, Biofilm, Necrotic/Eschar, Callus and Clots Instrument: Curette, Blade and Forceps Bleeding: Moderate Hemostasis Achieved: Pressure and Silver Nitrate Procedural Pain: 2 Post Procedural Pain: 0 Response to Treatment: Procedure was tolerated well (....................... ..................................................................) Labs: Lab Results Component Value Date WBC 9.76 09/05/2019 HGB 11.0 (L) 09/05/2019 HCT 33.6 (L) 09/05/2019 MCV 89.1 09/05/2019 PLT 311 09/05/2019 Ref Range: Hem 12-16, Hct 36-46 No results found for: PROT, ALBUMIN, PREALBUMIN Ref Range: Total Protein 6-8, Albumin 3.2-5.2, Prealbumin 20-40 No results found for: HGBA1C Ref Range: HgbA1c 4-6 Lab Results Component Value Date GLUCOSE 143 (H) 09/05/2019 CALCIUM 7.9 (L) 09/05/2019 NA 138 09/05/2019 K 3.4 (L) 09/05/2019 CL 101 09/05/2019 BUN 17 09/05/2019 CREATININE 0.68 09/05/2019 No results found for: ALT, AST, GGT, ALKPHOS, BILITOT No results found for: INR, PROTIME Review of History: The following items of the Patient's History were reviewed: chemistry, allergies, problem list, current medications, past medical history, past surgical history, past social history and past family history. History: Past Medical History: Diagnosis Date Asthma exacerbated with anesthesia Cataract beginning Chronic pain disorder Diabetes mellitus, type 2 (HCC) Fatty liver Fibromyalgia, primary GERD (gastroesophageal reflux disease) Headache Hyperlipidemia Hypertension Hypothyroidism PONV (postoperative nausea and vomiting) Rheumatoid arthritis (HCC) Pepe Carter MD TMJ (dislocation of temporomandibular joint) Past Surgical History: Procedure Laterality Date ARTHROPLASTY ELBOW TOTAL Right 02/27/2019 Procedure: RIGHT TOTAL ELBOW ARTHROPLASTY, ULNAR NERVE RELEASE WITH ANTERIOR TRANSPOSITION, RADIAL HEAD EXCISION; Surgeon: Ayde Almanzar DO; Location: [facility] Main OR; Service: Orthopedic ARTHROPLASTY ELBOW TOTAL Left 09/04/2019 Procedure: LEFT TOTAL ELBOW ARTHROPLASTY WITH ULNAR NERVE RELEASE WITH ANTERIOR TRANSPOSITION, EXCISION RADIAL HEAD; Surgeon: Ayde Almanzar DO; Location: [facility] Main OR; Service: Orthopedic HYSTERECTOMY Still has ovaries JOINT REPLACEMENT Right knee THYROIDECTOMY Social History Socioeconomic History Marital status: Spouse name: Not on file Number of children: Not on file Years of education: Not on file Highest education level: Not on file Occupational History Not on file Social Needs Financial resource strain: Not on file Food insecurity Worry: Not on file Inability: Not on file Transportation needs Medical: Not on file Non-medical: Not on file Tobacco Use Smoking status: Never Smoker Smokeless tobacco: Never Used Substance and Sexual Activity Alcohol use: Never Frequency: Never Drug use: Never Sexual activity: Not on file Lifestyle Physical activity Days per week: Not on file Minutes per session: Not on file Stress: Not on file Relationships Social connections Talks on phone: Not on file Gets together: Not on file Attends samaritan service: Not on file Active member of club or organization: Not on file Attends meetings of clubs or organizations: Not on file Relationship status: Not on file Other Topics Concern Not on file Social History Narrative Not on file Family History Problem Relation Age of Onset Heart disease Mother Arthritis Father Asthma Father Diabetes Father Heart disease Father Rose Mendoza [employer] Electronically signed by the above provider 10/08/19 Perpetual Wound History: Pt first seen in on 04/23/19, for elbow ulcer. 04/23/19 Right Elbow - Declined, per pt, no s/s of infection, debrided, Cleanse with Vashe, and allow to soak for 10 mins. Will use Xeroform, Mepilex Border, weekly. 04/30/19 Right Elbow-Healed. Will continue xeroform, mepilex border to wound for one more week. [facility] with [facility]. 10/08/19 Left Elbow- new, some s/s of infection, debrided, tissue cx sent. Will use Acetic Acid moistened gauze & DSD bid. documented in this encounter Reason for Referral Status Reason Specialty Diagnoses / Procedures Referred By Contact Referred To Contact Authorized Specialty Services Required/Patien t's Best [facility] Diagnoses Complication of procedure, subsequent encounter Nusrat Marx MD [address] [place] [address] Specialty Diagnoses / Procedures Referred By Contac t Referred To Contact [facility] Diagnoses Abnormality of gait Procedures CONSULT TO PHYSICAL THERAPY PHYSICAL THERAPY EVALUATION HIGH COMPLEX 45 MINS Pepe Carter MD [address] [place] [address] [facility] [place] [address] [place] [address] Referral ID Status Reason Start Date Expiration Date Visits Requested Visits Authorized [id number] Pending Review Auto-Generat ed Referral 11/23/2023 11/22/2024 1 1 Additional Source Comments INFORMATION SOURCE (unrecogn ized section and content) DATE CREATED AUTHOR 03/28/2018 [facility] DATE CREATED AUTHOR AUTHOR'S ORGANIZ ATION 10/08/2019 [facility] DATE CREATED AUTHOR AUTHOR'S ORGANIZ ATION 10/14/2019 [facility] DATE CREATED AUTHOR AUTHOR'S ORGANIZ ATION 04/19/2020 [facility] DATE CREATED AUTHOR AUTHOR'S ORGANIZ ATION 04/24/2020 [facility] DATE CREATED AUTHOR AUTHOR'S ORGANIZ ATION 05/28/2021 [facility] DATE CREATED AUTHOR AUTHOR'S ORGANIZ ATION 09/18/2021 [facility] DATE CREATED AUTHOR AUTHOR'S ORGANIZ ATION 09/19/2021 [facility] DATE CREATED AUTHOR AUTHOR'S ORGANIZ ATION 12/10/2022 [facility] DATE CREATED AUTHOR AUTHOR'S ORGANIZ ATION 11/30/2023 [facility] Reason for Visit (unrecogniz ed section and content) Reason Comments Pre-operative Medical Risk Stratificatio n Status Reason Specialty Diagnoses / Procedures Referre d By Contact Referred To Contact Diagnoses M06.821; M24.521; G56.21 Procedures RIGHT TOTAL ELBOW ARTHROPLASTY, ULNAR NERVE RELEASE WITH ANTERIOR TRANSPOSITION, RADIAL HEAD EXCISION Reason Comments Wound Check Status Reason Specialty Diagnoses / Procedures Referre d By Contact Referred To Contact Diagnoses M06.9; M24.522 Procedures LEFT TOTAL ELBOW ARTHROPLASTY WITH ULNAR NERVE RELEASE WITH ANTERIOR TRANSPOSITION, EXCISION RADIAL HEAD Reason Comments Post-op Problem Status Reason Specialty Diagnoses / Procedures Referre d By Contact Referred To Contact Diagnoses Acute neuritis Complication of procedure, subsequent encounter Status Reason Specialty Diagnoses / Procedures Referre d By Contact Referred To Contact Diagnoses G56.22 Procedures LEFT ELBOW ULNAR NERVE RELEASE WITH ANTERIOR TRANSPOSITION, TENDON LENGTHENING, CAPSULAR RELEASE WITH MANIPULATION UNDER ANESTHESIA Reason Comments Results Reason Comments Follow Up Reason Comments Refill Request Reason Onset Date Comments Refill Request 07/27/2022 Reason Comments Recheck Reason Comments Refill Request [facility]in[facility] Reason Comments Follow Up Pain Ongoing generalized pain. Sveta Silva, DO - 02/21/2019 12:53 PM Ayde Connell, DO - 02/27/2019 6:28 AM Sveta Mello, DO - 02/21/2019 12:53 PM Ayde Connell, DO - 09/04/2019 8:33 AM EST H&P Notes (unrecognized sect ion and content) Assessment and Plan 1. Pre-op exam Preoperative medical risk stratification indicates that the patient is at acceptable risk for elective/major surgery-02/27; RIGHT TOTAL ELBOW ARTHROPLASTY, ULNAR NERVE RELEASE WITH ANTERIOR TRANSPOSITION, RADIAL HEAD EXCISION AT [facility] OR [facility] pending laboratory/cervical spine x-ray series. Creatinine, Serum, Glucose, ECG 12 Lead, XR Cervical Spine with Flexion and Extension 6+ Views 2. Other specified rheumatoid arthritis, right elbow (HCC) The patient should discontinue any aspirin products, antiinflammatory drugs or herbal/supplement medications from now prior to surgery as outlined in the patient medication instruction sheet given to the patient today at preadmission testing. 3. Contracture of right elbow 4. Lesion of right ulnar nerve 5. Pre-operative cardiovascular examination This patient has no active cardiac conditions and would be considered at a low risk for a major adverse cardiac event (MACE) based on a revised cardiac risk index (RCRI) score of 0. This patient has an activity level greater than 4 METS and would be considered at acceptable cardiac risk based on the 2014 [place] [employer]/[place] [employer] (ACC/AHA) guideline on Perioperative Cardiovascular Evaluation and Management of Patients Undergoing Noncardiac Surgery. 6. Benign essential hypertension On lisinopril continue morning prior to surgery. The patient's angiotensin converting enzyme inhibitor (HUGO inhibitor)/angiotensin receptor miguel (ARB) should be held 24 hours prior to surgery. (Vik RHODES, et al. Withholding versus continuing angiotensin-converting enzyme inhibitors or angiotensin II receptor blockers before noncardiac surgery: An analysis of the Vascular Events in Noncardiac Surgery Patient's Cohort Evaluation prospective cohort. Anesthesiology 2017 Oct; 126:16). Elevated blood pressure noted in preadmission testing today. The patient has been instructed to obtain daily blood pressure checks at home (has home blood pressure monitor) and contact primary care physician if systolic blood pressures are consistently greater than 140 or diastolic greater than 90. In addition, the patient was instructed in lifestyle modifications, including weight reduction, dietary sodium restriction, increase physical activity as tolerated, and moderation in alcohol consumption. 7. Type 2 diabetes mellitus without complication, with long-term current use of insulin (HCC) Controlled on metformin continue day prior to surgery/Lantus insulin, which patient did take one half dose, i.e. 25 units p.m. prior to surgery. 8. Rheumatoid arthritis, involving unspecified site, unspecified rheumatoid factor presence (HCC) Controlled on leflunomide/weekly methotrexate continue prior to surgery/prednisone take a.m. day of surgery. Cervical spine x-ray series ordered. As the patient's chronic prednisone dose is < or = to 16 mg. Perioperative stress dose glucocorticoids are not indicated. 2017 [place] [employer]/[place] [employer] Guideline for the Perioperative Management of Antirheumatic Medication in Patients With Rheumatic Diseases Undergoing Elective Total Hip or Total Knee Arthroplasty. Arthritis Care & Research Vol. 69, No. 8, May 2017, pp 2999-2611 DOI 10.1002/acr.75235 9. Fibromyalgia Controlled on gabapentin take a.m. day of surgery. 10. PONV (postoperative nausea and vomiting) [place] use of pre/postoperative antiemetics recommended. 11. No contraindication to deep vein thrombosis (DVT) prophylaxis Deep venous thrombosis prophylaxis per primary service. Recommend: 2011 Antithrombotic therapy for VTE disease: Antithrombotic Therapy and Prevention of Thrombosis, 9th ed: [place] [employer] Evidence- Based Clinical Practice Guidelines. Chief Complaint Patient presents with Pre-operative Medical Risk Stratification History of Present Illness Elsa Catalan is a 58 y.o. female who presents for preoperative medical risk stratification consult at the request of Ayde Almanzar DO prior to 02/27; RIGHT TOTAL ELBOW ARTHROPLASTY, ULNAR NERVE RELEASE WITH ANTERIOR TRANSPOSITION, RADIAL HEAD EXCISION AT [facility] OR [facility]. Pt states she has rheumatoid arthritis in her right elbow with increasing pain over the last 1-2 years. Pain is 9/10, and sharp in character. Pt uses Extra strength Excedrin every four hours to help with the pain. Pt has limited range of motion of the right elbow. The patient denies any chest pain or chest heaviness. In addition, the patient states that she is able to walk up a flight of steps without becoming short of breath. The patient admits to a prior history of postoperative nausea, but denies postoperative sedation or any other anesthetic complications. Please see below regarding status of active medical conditions and assessment and plan regarding details of preoperative medical risk stratification. Past Medical History: Diagnosis Date Asthma Chronic pain disorder Diabetes mellitus, type 2 (HCC) Fatty liver Fibromyalgia, primary GERD (gastroesophageal reflux disease) Headache Hypertension Hypothyroidism PONV (postoperative nausea and vomiting) Rheumatoid arthritis (HCC) TMJ (dislocation of temporomandibular joint) Past Medical History Pertinent Negatives: Diagnosis Date Noted Anemia 02/21/2019 Angina pectoris (HCC) 02/21/2019 Arrhythmia 02/21/2019 Bleeding disorder (HCC) 02/20/2019 Cancer ([facility]) 02/21/2019 Coronary artery disease 02/20/2019 Deep vein thrombosis (HCC) 02/21/2019 Diabetes mellitus type I (HCC) 02/21/2019 Hard to intubate 02/21/2019 History of blood transfusion 02/21/2019 History of cardiac cath 02/21/2019 History of echocardiogram 02/21/2019 History of stress test 02/20/2019 Malignant hyperthermia due to anesthesia 02/21/2019 Myocardial infarction (HCC) 02/21/2019 No blood products 02/21/2019 Pulmonary embolism (HCC) 02/21/2019 Sleep apnea, obstructive 02/20/2019 Stroke ([facility]) 02/21/2019 Past Surgical History: Procedure Laterality Date HYSTERECTOMY Still has ovaries JOINT REPLACEMENT Right knee THYROIDECTOMY Social History Tobacco Use Smoking status: Never Smoker Smokeless tobacco: Never Used Substance Use Topics Alcohol use: Never Frequency: Never History reviewed. No pertinent family history.@ Prior to Admission medications Medication Sig Taking? Dose Freq aspirin 81 MG EC tablet Take 81 mg by mouth every morning Reasons: treatment to prevent a heart attack. Yes 81 mg, Oral, Every morning aspirin/acetaminophen/caffeine (EXCEDRIN EXTRA STRENGTH ORAL) Take by mouth as needed Reasons: Pain. Yes Oral, As needed cholecalciferol, vitamin D3, (VITAMIN D3 ORAL) Take by mouth every morning Reasons: Supp. Yes Oral, Every morning folic acid (FOLVITE) 1 MG tablet Take 1 mg by mouth every morning Reasons: Supp. Yes 1 mg, Oral, Every morning gabapentin (NEURONTIN) 300 MG capsule Take 300 mg by mouth 3 (three) times a day Reasons: Pain. Yes 300 mg, Oral, 3 times daily LANTUS SOLOSTAR U-100 INSULIN 100 unit/mL (3 mL) InPn 50 Units nightly Reasons: type 2 diabetes mellitus. Yes 50 Units, Nightly leflunomide (ARAVA) 20 MG tablet Take 20 mg by mouth every morning Reasons: rheumatoid arthritis. Yes 20 mg, Oral, Every morning lisinopril (PRINIVIL,ZESTRIL) 20 MG tablet Take 20 mg by mouth every morning Reasons: high blood pressure. Yes 20 mg, Oral, Every morning metFORMIN (GLUCOPHAGE) 1000 MG tablet Take 1,000 mg by mouth 2 (two) times a day with meals Reasons: type 2 diabetes mellitus. Yes 1,000 mg, Oral, 2 times daily with meals methotrexate 25 mg/mL injection 50 mg once a week Reasons: rheumatoid arthritis, Monday. Yes 50 mg, Weekly predniSONE (DELTASONE) 5 MG tablet Take 5 mg by mouth every morning Reasons: RA. Yes 5 mg, Oral, Every morning sulfaSALAzine (AZULFIDINE) 500 mg tablet Take 500 mg by mouth 4 (four) times a day Reasons: rheumatoid arthritis. Yes 500 mg, Oral, 4 times daily SYNTHROID 175 mcg tablet Take 175 mcg by mouth every morning Reasons: hypothyroidism. Yes 175 mcg, Oral, Every morning TOPROL XL 25 mg 24 hr tablet Take 25 mg by mouth every morning Reasons: high blood pressure. Yes 25 mg, Oral, Every morning Allergies Allergen Reactions Penicillins Rash Review of Systems Physical Exam BP (!) 190/105 Pulse 81 Temp 98 F (36.7 C) (Oral) Resp 18 Ht 5' 4 Wt 64 kg (141 lb 1.5 oz) SpO2 98% BMI 24.22 kg/m Constitutional--Conversant, in no acute distress. Skin--Normal turgor, no rashes noted. Eyes--Pupils equal in size bilaterally; anicteric sclerae. Ears/nose/mouth/throat--Hearing intact; oropharynx clear with moist mucosa. Neck--Trachea midline, no goiter. Cardiovascular--Regular rhythm, no peripheral edema noted. Respiratory--Clear to auscultation bilaterally; no accessory muscle use noted. Gastrointestinal--Soft and non-tender; no hepatosplenomegaly noted. Musculoskeletal--No calf tenderness bilaterally; no clubbing or cyanosis of digits noted. Psychiatric--alert and oriented to person, place and time; appropriate affect noted. Data Preprocedure Sleep Apnea Assessment - No Risk (0/3) Sleep Apnea in the patient's Active Problem List or Medical History: no 1. History of apparent airway obstruction during sleep: (1 point for this category) Do you snore frequently, or snore loud enough to be heard through a closed door?: no Do you awaken from sleep with a choking sensation or have periods during sleep when someone has observed you pausing between breaths?: no 2. Somnolence of the patient: (1 point for this category) Do you find yourself frequently sleepy despite adequate hours of sleep the night before?: no Do you fall asleep easily while: watching TV, reading, riding in or driving a car?: no 3. Predisposing physician characteristics: (1 point for this category, 2 points if the BMI ? 40) BMI (Calculated): 24.2 Electrocardiogram-tracing independently reviewed and interpreted-normal ECG. documented in this encounter INTERVAL HISTORY AND PHYSICAL Patient Name: Elsa Catalan Admit Date: [id number] MR #: [id number] : 1960 The H&P has been reviewed and the patient has been examined. I concur with the findings of the H&P. There are no significant changes. It is appropriate to proceed with the planned procedure. Ayde Almanzar DO 02/27/2019 6:28 AM Assessment and Plan 1. Pre-op exam Preoperative medical risk stratification indicates that the patient is at acceptable risk for elective/major surgery-02/27; RIGHT TOTAL ELBOW ARTHROPLASTY, ULNAR NERVE RELEASE WITH ANTERIOR TRANSPOSITION, RADIAL HEAD EXCISION AT [facility] pending laboratory/cervical spine x-ray series. Creatinine, Serum, Glucose, ECG 12 Lead, XR Cervical Spine with Flexion and Extension 6+ Views 2. Other specified rheumatoid arthritis, right elbow (HCC) The patient should discontinue any aspirin products, antiinflammatory drugs or herbal/supplement medications from now prior to surgery as outlined in the patient medication instruction sheet given to the patient today at preadmission testing. 3. Contracture of right elbow 4. Lesion of right ulnar nerve 5. Pre-operative cardiovascular examination This patient has no active cardiac conditions and would be considered at a low risk for a major adverse cardiac event (MACE) based on a revised cardiac risk index (RCRI) score of 0. This patient has an activity level greater than 4 METS and would be considered at acceptable cardiac risk based on the 2014 [place] [employer]/[place] [employer] (ACC/AHA) guideline on Perioperative Cardiovascular Evaluation and Management of Patients Undergoing Noncardiac Surgery. 6. Benign essential hypertension On lisinopril continue morning prior to surgery. The patient's angiotensin converting enzyme inhibitor (HUGO inhibitor)/angiotensin receptor miguel (ARB) should be held 24 hours prior to surgery. (Vik PS, et al. Withholding versus continuing angiotensin-converting enzyme inhibitors or angiotensin II receptor blockers before noncardiac surgery: An analysis of the Vascular Events in Noncardiac Surgery Patient's Cohort Evaluation prospective cohort. Anesthesiology 2017 Oct; 126:16). Elevated blood pressure noted in preadmission testing today. The patient has been instructed to obtain daily blood pressure checks at home (has home blood pressure monitor) and contact primary care physician if systolic blood pressures are consistently greater than 140 or diastolic greater than 90. In addition, the patient was instructed in lifestyle modifications, including weight reduction, dietary sodium restriction, increase physical activity as tolerated, and moderation in alcohol consumption. 7. Type 2 diabetes mellitus without complication, with long-term current use of insulin (HCC) Controlled on metformin continue day prior to surgery/Lantus insulin, which patient did take one half dose, i.e. 25 units p.m. prior to surgery. 8. Rheumatoid arthritis, involving unspecified site, unspecified rheumatoid factor presence (HCC) Controlled on leflunomide/weekly methotrexate continue prior to surgery/prednisone take a.m. day of surgery. Cervical spine x-ray series ordered. As the patient's chronic prednisone dose is < or = to 16 mg. Perioperative stress dose glucocorticoids are not indicated. 2017 [place] [employer]/[place] [employer] and Knee [employer] Guideline for the Perioperative Management of Antirheumatic Medication in Patients With Rheumatic Diseases Undergoing Elective Total Hip or Total Knee Arthroplasty. Arthritis Care & Research Vol. 69, No. 8, May 2017, pp 9046-5605 DOI 10.1002/acr.90481 9. Fibromyalgia Controlled on gabapentin take a.m. day of surgery. 10. PONV (postoperative nausea and vomiting) [place] use of pre/postoperative antiemetics recommended. 11. No contraindication to deep vein thrombosis (DVT) prophylaxis Deep venous thrombosis prophylaxis per primary service. Recommend: 2011 Antithrombotic therapy for VTE disease: Antithrombotic Therapy and Prevention of Thrombosis, 9th ed: [place] [employer] Evidence- Based Clinical Practice Guidelines. Chief Complaint Patient presents with Pre-operative Medical Risk Stratification History of Present Illness Elsa Catalan is a 58 y.o. female who presents for preoperative medical risk stratification consult at the request of Ayde Almanzar DO prior to 02/27; RIGHT TOTAL ELBOW ARTHROPLASTY, ULNAR NERVE RELEASE WITH ANTERIOR TRANSPOSITION, RADIAL HEAD EXCISION AT [facility]. Pt states she has rheumatoid arthritis in her right elbow with increasing pain over the last 1-2 years. Pain is 9/10, and sharp in character. Pt uses Extra strength Excedrin every four hours to help with the pain. Pt has limited range of motion of the right elbow. The patient denies any chest pain or chest heaviness. In addition, the patient states that she is able to walk up a flight of steps without becoming short of breath. The patient admits to a prior history of postoperative nausea, but denies postoperative sedation or any other anesthetic complications. Please see below regarding status of active medical conditions and assessment and plan regarding details of preoperative medical risk stratification. Past Medical History: Diagnosis Date Asthma Chronic pain disorder Diabetes mellitus, type 2 (HCC) Fatty liver Fibromyalgia, primary GERD (gastroesophageal reflux disease) Headache Hypertension Hypothyroidism PONV (postoperative nausea and vomiting) Rheumatoid arthritis (HCC) TMJ (dislocation of temporomandibular joint) Past Medical History Pertinent Negatives: Diagnosis Date Noted Anemia 02/21/2019 Angina pectoris (HCC) 02/21/2019 Arrhythmia 02/21/2019 Bleeding disorder (HCC) 02/20/2019 Cancer ([facility]) 02/21/2019 Coronary artery disease 02/20/2019 Deep vein thrombosis ([facility]) 02/21/2019 Diabetes mellitus type I ([facility]) 02/21/2019 Hard to intubate 02/21/2019 History of blood transfusion 02/21/2019 History of cardiac cath 02/21/2019 History of echocardiogram 02/21/2019 History of stress test 02/20/2019 Malignant hyperthermia due to anesthesia 02/21/2019 Myocardial infarction ([facility]) 02/21/2019 No blood products 02/21/2019 Pulmonary embolism ([facility]) 02/21/2019 Sleep apnea, obstructive 02/20/2019 Stroke ([facility]) 02/21/2019 Past Surgical History: Procedure Laterality Date HYSTERECTOMY Still has ovaries JOINT REPLACEMENT Right knee THYROIDECTOMY Social History Tobacco Use Smoking status: Never Smoker Smokeless tobacco: Never Used Substance Use Topics Alcohol use: Never Frequency: Never History reviewed. No pertinent family history.@ Prior to Admission medications Medication Sig Taking? Dose Freq aspirin 81 MG EC tablet Take 81 mg by mouth every morning Reasons: treatment to prevent a heart attack. Yes 81 mg, Oral, Every morning aspirin/acetaminophen/caffeine (EXCEDRIN EXTRA STRENGTH ORAL) Take by mouth as needed Reasons: Pain. Yes Oral, As needed cholecalciferol, vitamin D3, (VITAMIN D3 ORAL) Take by mouth every morning Reasons: Supp. Yes Oral, Every morning folic acid (FOLVITE) 1 MG tablet Take 1 mg by mouth every morning Reasons: Supp. Yes 1 mg, Oral, Every morning gabapentin (NEURONTIN) 300 MG capsule Take 300 mg by mouth 3 (three) times a day Reasons: Pain. Yes 300 mg, Oral, 3 times daily LANTUS SOLOSTAR U-100 INSULIN 100 unit/mL (3 mL) InPn 50 Units nightly Reasons: type 2 diabetes mellitus. Yes 50 Units, Nightly leflunomide (ARAVA) 20 MG tablet Take 20 mg by mouth every morning Reasons: rheumatoid arthritis. Yes 20 mg, Oral, Every morning lisinopril (PRINIVIL,ZESTRIL) 20 MG tablet Take 20 mg by mouth every morning Reasons: high blood pressure. Yes 20 mg, Oral, Every morning metFORMIN (GLUCOPHAGE) 1000 MG tablet Take 1,000 mg by mouth 2 (two) times a day with meals Reasons: type 2 diabetes mellitus. Yes 1,000 mg, Oral, 2 times daily with meals methotrexate 25 mg/mL injection 50 mg once a week Reasons: rheumatoid arthritis, Monday. Yes 50 mg, Weekly predniSONE (DELTASONE) 5 MG tablet Take 5 mg by mouth every morning Reasons: RA. Yes 5 mg, Oral, Every morning sulfaSALAzine (AZULFIDINE) 500 mg tablet Take 500 mg by mouth 4 (four) times a day Reasons: rheumatoid arthritis. Yes 500 mg, Oral, 4 times daily SYNTHROID 175 mcg tablet Take 175 mcg by mouth every morning Reasons: hypothyroidism. Yes 175 mcg, Oral, Every morning TOPROL XL 25 mg 24 hr tablet Take 25 mg by mouth every morning Reasons: high blood pressure. Yes 25 mg, Oral, Every morning Allergies Allergen Reactions Penicillins Rash Review of Systems Physical Exam BP (!) 190/105 Pulse 81 Temp 98 F (36.7 C) (Oral) Resp 18 Ht 5' 4 Wt 64 kg (141 lb 1.5 oz) SpO2 98% BMI 24.22 kg/m Constitutional--Conversant, in no acute distress. Skin--Normal turgor, no rashes noted. Eyes--Pupils equal in size bilaterally; anicteric sclerae. Ears/nose/mouth/throat--Hearing intact; oropharynx clear with moist mucosa. Neck--Trachea midline, no goiter. Cardiovascular--Regular rhythm, no peripheral edema noted. Respiratory--Clear to auscultation bilaterally; no accessory muscle use noted. Gastrointestinal--Soft and non-tender; no hepatosplenomegaly noted. Musculoskeletal--No calf tenderness bilaterally; no clubbing or cyanosis of digits noted. Psychiatric--alert and oriented to person, place and time; appropriate affect noted. Data Preprocedure Sleep Apnea Assessment - No Risk (0/3) Sleep Apnea in the patient's Active Problem List or Medical History: no 1. History of apparent airway obstruction during sleep: (1 point for this category) Do you snore frequently, or snore loud enough to be heard through a closed door?: no Do you awaken from sleep with a choking sensation or have periods during sleep when someone has observed you pausing between breaths?: no 2. Somnolence of the patient: (1 point for this category) Do you find yourself frequently sleepy despite adequate hours of sleep the night before?: no Do you fall asleep easily while: watching TV, reading, riding in or driving a car?: no 3. Predisposing physician characteristics: (1 point for this category, 2 points if the BMI ? 40) BMI (Calculated): 24.2 Electrocardiogram-tracing independently reviewed and interpreted-normal ECG. documented in this encounter INTERVAL HISTORY AND PHYSICAL Patient Name: Elsa Catalan Admit Date: [id number] MR #: [id number] : 1960 The H&P has been reviewed and the patient has been examined. I concur with the findings of the H&P. There are no significant changes. It is appropriate to proceed with the planned procedure. Ayde Almanzar DO 09/04/2019 8:33 AM Assessment and Plan 1. Preop examination Preoperative medical risk stratification indicates patient is at acceptable risk for major elective surgery with risk factors as detailed below pending lab work cspine from 02/17 no instability ECG from today read independently today. Significant for a normal sinus rhythm but with low voltage, poor r wave progressive and possible septal though without any signs of ischemia or [place] infarction. Instructions given regarding medications both verbally and in printed form. 2. Contracture of left elbow Patient instructed on cessation of aspirin/nsaids/herbals for seven days preoperatively and voiced understanding 3. Pre-operative cardiovascular examination This patient has no revised cardiac risk indicators (RCRI) and would therefore be considered to be at low risk for major adverse cardiac events (MACE) and describes functional capacity of greater than 4 metabolic equivalents (METS) without symptoms of chest pain or shortness of breath. This patient would thus be considered at acceptable perioperative cardiac risk based on the 2014 ACC/AHA guidelines on perioperative cardiovascular evaluation. 4. Rheumatoid arthritis, involving unspecified site, unspecified rheumatoid factor presence (HCC) No evidence of decompensated disease state, cont to follow clinically and manage expectantly Hold Arava and Humira one week preop and siv weeks postop or as directed by rheum. When held for 02/17 r elbow surgery, did have flare. Cont mtx and sulfasalazine periop 5. Benign essential hypertension Currently elevated reportedly usually well controlled on home regimen BP Readings from Last 3 Encounters: 08/28/19 (!) 147/92 04/30/19 (!) 174/95 04/23/19 (!) 162/85 will continue home regimen with no change perioperatively including am meds on DOS but holding hugo-I/arb/diuretics am DOS to avoid hypovolemia/hypotension in npo/anesthetized state Postop PRNs will be available for persistent elevations. 6. Type 2 diabetes mellitus without complication, with long-term current use of insulin (HCC) Patient endorses adequate glycemic control at home. Continue home regimen of orals and insulin perioperatively, holding orals on DOS d/t npo state and decreasing evening insulin dose on day prior to admission by 50%. Postop SSI will be provided until taking po and home regimen fully resumed. 7. Fibromyalgia Continue home medications and supportive care 8. History of postoperative nausea and vomiting Patient with history of postoperative nausea and vomiting. We will inform anesthesia of this and anticipate premedication 9. Hyperlipidemia, unspecified hyperlipidemia type Will continue dietary control and statin therapy to mitigate cv risk 10. Asthma Patient reports no recent flares, adequate symptom control and compliance with home medications. We will continue scheduled and prn nebs/mdis and follow pulmonary status closely in the perioperative period Reportedly exacerbated by anesthesia will inform anesthesiology 11. Acquired hypothyroidism Patient presents with no evidence of decompensated disease state, will continue home dose synthroid perioperatively. 12. Need for prophylactic measure Patient is at routine risk for postop DVT and choice of pharmacologic agent deferred to attending surgeon and would recommend utilizing the 2012 ACCP Consensus Guidelines. Chief Complaint Patient presents with Pre-operative Medical Risk Stratification History of Present Illness Elsa Catalan is a 59 y.o. female who presents for preoperative medical risk stratification consult at the request of Dr. Almanzar prior to 09/04 at [facility], LEFT TOTAL ELBOW ARTHROPLASTY WITH ULNAR NERVE RELEASE WITH ANTERIOR TRANSPOSITION, EXCISION RADIAL HEAD . Patient reports a long long history of RA. Has a five to seven year history of pain and mobility issues in her left elbow. She has had therapy and worn a brace but the symptoms continue. The patient denies additional prodromal illness event or trauma Internal medicine consulted for preoperative medical evaluation as well as perioperative management of chronic medical issues. 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 The patient reports PONV with prior anesthesia experiences. This patient reports no history of cardiopulmonary disease. The functional capacity is at least 4 METs without symptoms of chest pain or shortness of breath. Please see below regarding status of active medical conditions and assessment and plan regarding details of preoperative medical risk stratification. Past Medical History: Diagnosis Date Asthma exasperated with anesthesia Cataract beginning Chronic pain disorder Diabetes mellitus, type 2 (HCC) Fatty liver Fibromyalgia, primary GERD (gastroesophageal reflux disease) Headache Hyperlipidemia Hypertension Hypothyroidism PONV (postoperative nausea and vomiting) Rheumatoid arthritis (HCC) Pepe Carter MD TMJ (dislocation of temporomandibular joint) Past Medical History Pertinent Negatives: Diagnosis Date Noted Anemia 02/21/2019 Angina pectoris (HCC) 02/21/2019 Arrhythmia 02/21/2019 Atrial fibrillation ([facility]) 08/28/2019 Bleeding disorder (HCC) 02/20/2019 Cancer ([facility]) 02/21/2019 CHF (congestive heart failure) ([facility]) 08/28/2019 Coronary artery disease 02/20/2019 Deep vein thrombosis (HCC) 02/21/2019 Diabetes mellitus type I ([facility]) 02/21/2019 Edema 08/28/2019 Hard to intubate 02/21/2019 Heart murmur 08/28/2019 Heart valve disease 08/28/2019 History of blood transfusion 02/21/2019 History of cardiac cath 02/21/2019 History of echocardiogram 02/21/2019 History of stress test 02/20/2019 Malignant hyperthermia due to anesthesia 02/21/2019 Myocardial infarction (HCC) 02/21/2019 No blood products 02/21/2019 Pulmonary embolism (HCC) 02/21/2019 Sleep apnea, obstructive 02/20/2019 Stroke ([facility]) 02/21/2019 Past Surgical History: Procedure Laterality Date ARTHROPLASTY ELBOW TOTAL Right 02/27/2019 Procedure: RIGHT TOTAL ELBOW ARTHROPLASTY, ULNAR NERVE RELEASE WITH ANTERIOR TRANSPOSITION, RADIAL HEAD EXCISION; Surgeon: Ayde Almanzar DO; Location: [facility] Main OR; Service: Orthopedic HYSTERECTOMY Still has ovaries JOINT REPLACEMENT Right knee THYROIDECTOMY Social History Tobacco Use Smoking status: Never Smoker Smokeless tobacco: Never Used Substance Use Topics Alcohol use: Never Frequency: Never Family History Problem Relation Age of Onset Heart disease Mother Arthritis Father Asthma Father Diabetes Father Heart disease Father @ Prior to Admission medications Medication Sig Taking? Dose Freq adalimumab (HUMIRA) 40 mg/0.8 mL syringe Inject 40 mg under the skin every 14 (fourteen) days Reasons: rheumatoid arthritis. Yes 40 mg, Subcutaneous, Every 14 days cholecalciferol, vitamin D3, (VITAMIN D3 ORAL) Take by mouth every morning Reasons: Supp. Yes Oral, Every morning empagliflozin (Jardiance) 10 mg Tab Take 10 mg by mouth every morning Reasons: type 2 diabetes mellitus. Yes 10 mg, Oral, Every morning folic acid (FOLVITE) 1 MG tablet Take 2 mg by mouth every morning Reasons: Supp. Yes 2 mg, Oral, Every morning gabapentin (NEURONTIN) 300 MG capsule Take 300 mg by mouth 3 (three) times a day Reasons: Pain. Yes 300 mg, Oral, 3 times daily insulin aspart U-100 (NovoLOG) 100 unit/mL injection Inject under the skin 3 (three) times a day before meals Reasons: type 2 diabetes mellitus, Sliding scale. Yes Subcutaneous, 3 times daily before meals irbesartan (AVAPRO) 150 MG tablet Take 150 mg by mouth every morning Reasons: high blood pressure. Yes 150 mg, Oral, Every morning LANTUS SOLOSTAR U-100 INSULIN 100 unit/mL (3 mL) InPn 50 Units nightly Reasons: type 2 diabetes mellitus. Yes 50 Units, Nightly leflunomide (ARAVA) 20 MG tablet Take 20 mg by mouth every morning Reasons: rheumatoid arthritis. Yes 20 mg, Oral, Every morning simvastatin (ZOCOR) 20 MG tablet Take 20 mg by mouth daily with lunch Reasons: excessive fat in the blood. Yes 20 mg, Oral, Daily with lunch sulfaSALAzine (AZULFIDINE) 500 mg tablet Take 500 mg by mouth 3 (three) times a day Reasons: rheumatoid arthritis. Yes 500 mg, Oral, 3 times daily SYNTHROID 175 mcg tablet Take 200 mcg by mouth every morning Reasons: a condition with low thyroid hormone levels. Yes 200 mcg, Oral, Every morning TOPROL XL 25 mg 24 hr tablet Take 25 mg by mouth every morning Reasons: high blood pressure. Yes 25 mg, Oral, Every morning methotrexate 25 mg/mL injection 50 mg once a week Reasons: rheumatoid arthritis, Monday. 50 mg, Weekly Allergies Allergen Reactions Lisinopril Other (See Comments) Cough Adhesive Tape-Silicones Rash Penicillins Rash Review of Systems Constitution: (negative) HENT: (negative) Eyes: (negative) Respiratory: (negative) Cardiovascular: (negative) - Exercise capacity: Greater than 4 METS Gastrointestinal: (negative) Genitourinary: (negative) Musculoskeletal: (negative) Skin: (negative) Neurological: (negative) Hematological: (negative) Physical Exam BP (!) 147/92 Pulse 85 Temp 98.8 F (37.1 C) (Oral) Resp 13 Ht 5' 4 Wt 64 kg (141 lb 1.5 oz) SpO2 96% BMI 24.22 kg/m General Appearance - NAD; Conversant Skin - Normal turgor; No rashes noted Eyes - Pupils equal in size bilaterally; Anicteric sclerae ENMT - Hearing intact; Oropharynx clear with moist mucosa Neck - Trachea midline, No goiter noted Cardiovascular - Regular rate and rhythm;, no rubs murmurs gallops extra sounds noted. No peripheral edema noted Respiratory - Clear to auscultate bilaterally; No increased work of breathing or accessory muscle use noted Gastrointestinal - Soft, nondistended and nontender; No hepatosplenomegaly noted, neg rtrg or cvatb, +bs Musculoskeletal - No calf tenderness noted bilaterally;, dorsiflexion intact. No clubbing or cyanosis of digits noted Psychiatric/Neuro - Alert and Oriented x 3; Appropriate mood and affect, MANSFIELD and neg FND appreciated Data Preprocedure Sleep Apnea Assessment - No Risk (0/3) Sleep Apnea in the patient's Active Problem List or Medical History: no 1. History of apparent airway obstruction during sleep: (1 point for this category) Do you snore frequently, or snore loud enough to be heard through a closed door?: no Do you awaken from sleep with a choking sensation or have periods during sleep when someone has observed you pausing between breaths?: no 2. Somnolence of the patient: (1 point for this category) Do you find yourself frequently sleepy despite adequate hours of sleep the night before?: no Do you fall asleep easily while: watching TV, reading, riding in or driving a car?: no 3. Predisposing physician characteristics: (1 point for this category, 2 points if the BMI ? 40) BMI (Calculated): 24.2 Neck Circumference (inches): 12 inches Recent Results (from the past 81940 hours) XR ELBOW RIGHT 3+ VIEWS (STANDARD) 02/27/2019 (Final) Status: Normal Narrative EXAMINATION: XR ELBOW RIGHT 3+ VIEWS (STANDARD) HISTORY: ORDERING SYSTEM PROVIDED HISTORY: ap/lat postop elbow, TECHNOLOGIST PROVIDED HISTORY: Reason for exam: post op Injury/Trauma Cancer History: no Surgery, RadiationHistory: no Encounter Type: Initial Mechanism of injury: post op ORDERING SYSTEM PROVIDED DIAGNOSIS CODES: S59.909S Elbow injury, unspecified laterality, sequela Elbow surgery. COMPARISON: Right elbow radiographs 07/21/2016 from [facility]. FINDINGS: Three views of the right elbow were performed. There is an elbow joint prosthesis with statins in the distal humerus and proximal ulna. Best seen on the lateral view there is linear lucency adjacent to the ulnar stem near the base of the coronoid process which may represent a prominent cement bone interface more likely than a nondisplaced fracture, as no distal extent of fracture can be appreciated.. Radial head has been resected. There is moderate soft tissue swelling and multifocal soft tissue air compatible with recent surgery. Impression Recent postoperative change for radial head resection and elbow joint prosthesis. Linear lucency adjacent to the ulnar stem in the region of the base of the coronoid process probably represents a mildly prominent cement bone interface. A nondisplaced fracture is considered less likely. [facility] Workstation ID: [id number] documented in this encounter INTERVAL HISTORY AND PHYSICAL Patient Name: Elsa Catalan Admit Date: MR #: [id number] : 1960 The H&P has been reviewed and the patient has been examined. I concur with the findings of the H&P. There are no significant changes. It is appropriate to proceed with the planned procedure. Ayde Almanzar DO 10/13/2019 9:03 AM [facility] HISTORY AND PHYSICAL Patient Name: Elsa Catalan : 1960 MR #: [id number] Admit Date: Physicians: Pretty Fermin MD (Family); No ref. provider found (Referring) Elsa Catalan is a 59 y.o. 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 Dose adjusted for this evening Hypothyroid Synthroid HLD Statin Admitted From: Home Medication Reconciliation: Verified Code Status: Full Code Quality Measures DVT Prophylaxis: Ambulate - lovenox if stay prolonged/ok with ortho Hickey Catheter: none Disposition Outpatient Testing: NA Chief Complaint Non healing wound History of Present Illness Patient was directed to [facility] for admission per her orthopedic surgeon. She had a left elbow arthroplasty in September. Reports she initially had a hematoma on her left elbow, which then became a black scar. She has been following with wound clinic for this. She has had progressive left hand weakness and a burning sensation down the medial portion of her arm/hand. She has no recent fevers or chills. She has no recent chest pain or shortness of breath. Past Medical History Past Medical History: Diagnosis Date Asthma exacerbated with anesthesia Cataract beginning Chronic pain disorder Diabetes mellitus, type 2 (HCC) Fatty liver Fibromyalgia, primary GERD (gastroesophageal reflux disease) Headache Hyperlipidemia Hypertension Hypothyroidism PONV (postoperative nausea and vomiting) Rheumatoid arthritis (HCC) Pepe Carter MD TMJ (dislocation of temporomandibular joint) Past Surgical History Past Surgical History: Procedure Laterality Date ARTHROPLASTY ELBOW TOTAL Right 02/27/2019 Procedure: RIGHT TOTAL ELBOW ARTHROPLASTY, ULNAR NERVE RELEASE WITH ANTERIOR TRANSPOSITION, RADIAL HEAD EXCISION; Surgeon: Ayde Almanzar DO; Location: [facility] Main OR; Service: Orthopedic ARTHROPLASTY ELBOW TOTAL Left 09/04/2019 Procedure: LEFT TOTAL ELBOW ARTHROPLASTY WITH ULNAR NERVE RELEASE WITH ANTERIOR TRANSPOSITION, EXCISION RADIAL HEAD; Surgeon: Ayde Almanzar DO; Location: [facility] Main OR; Service: Orthopedic HYSTERECTOMY Still has ovaries JOINT REPLACEMENT Right knee THYROIDECTOMY Family History Family History Problem Relation Age of Onset Heart disease Mother Arthritis Father Asthma Father Diabetes Father Heart disease Father Social History Social History Tobacco Use Smoking Status Never Smoker Smokeless Tobacco Never Used Social History Substance and Sexual Activity Alcohol Use Never Frequency: Never Social History Substance and Sexual Activity Drug Use Never Allergy Information I have reviewed the patient's allergies. Ciprofloxacin; Lisinopril; Adhesive tape-silicones; and Penicillins Home Medications Home medications were reviewed. Review Of Systems All systems have been reviewed and are negative except as noted in HPI or below Physical Examination BP (!) 192/122 (BP Location: Right arm, Patient Position: Sitting) Pulse 80 Temp 97.8 F (36.6 C) (Oral) Resp 14 Ht 5' 4 Wt 64 kg (141 lb 1.5 oz) SpO2 96% BMI 24.22 kg/m General Appearance: alert, well appearing, and in no acute distress HEENT: Head- normocephalic; Ears- external auditory canals clear, hearing intact; Nose- no nasal discharge; Throat- oropharynx normal Cardiovascular: regular rate and rhythm; normal S1, S2; no murmurs; no peripheral edema Respiratory: lungs clear to auscultation; without wheezes, rales or rhonchi Abdomen: soft, non-tender, non-distended; positive bowel sounds Neurological: alert, oriented x 3, normal speech; left hand strength 4/5 Musculoskeletal: left elbow wrapped, bandages clean. Skin: normal coloration, texture and turgor; no lesions or eruptions Psych: normal mood and affect Laboratory and Additional Data Reviewed Laboratory 10/12/19 4:25 PM Cardiology 10/12/19 4:25 PM Medications 10/12/19 4:25 PM Transcriptions 10/12/19 4:25 PM documented in this encounter INTERVAL HISTORY AND PHYSICAL Patient Name: Elsa Catalan Admit Date: MR #: [id number] : 1960 The H&P has been reviewed and the patient has been examined. I concur with the findings of the H&P. There are no significant changes. It is appropriate to proceed with the planned procedure. Ayde Almanzar DO 04/08/2020 10:45 AM Assessment and Plan 1. Pre-op exam Preoperative medical risk stratification will be pending required tests or evaluations if indicated, but initial evaluation indicates patient is scheduled for elective - surgery with acceptable risk. Creatinine, Serum, Glucose, Hemoglobin and Hematocrit, ECG 12 Lead 2. Left elbow pain In need of surgical intervention having failed other treatments. Perioperative recommendations include discontinuation of NSAIDS, Vitamin C, Vitamin E, Fish Oil, and other supplemental herbal medications 7-10 days prior to surgery. Aspirin and other anticoagulants will be addressed separately. 3. Preoperative cardiovascular examination Based on 2014 ACC/AHA Guidelines, this patient has no active cardiac conditions and based on an RCRI score would be considered at a/an acceptable <1% risk of a major adverse cardiac event (MACE) based on a RCRI score of 0-1. This patient has an activity level at or around 4 MET's and would be considered at an acceptable cardiac risk. 4. Essential hypertension Hypertension noted. (I10). This is a chronic pre- existing condition. 145/79 and acceptable. Plan to continue antihypertensive medications as prescribed throughout hospitalization and follow blood pressure closely with routine vitals and monitors. 5. Hyperlipidemia, unspecified hyperlipidemia type Hyperlipidemia noted. (E78.5). Chronic condition present on admission - controlled on cholesterol lowering medication - plan to continue perioperatively to lessen the risk of cardiovascular complications. 6. Type 2 diabetes mellitus without complication, with long-term current use of insulin (HCC) DM Type 2 (E11.9) - chronic pre-existing condition present on admission - controlled on Insulin - continue to monitor glucose levels perioperatively with Accuchecks and use additional sliding scale Insulin if indicated. Recommend monitoring glucose levels closely during the perioperative time period to lessen the risk complications including infection. No results found for: HGBA1C Glucose (mg/dL) Date Value 10/14/2019 116 (H) 10/14/2019 142 (H) 10/13/2019 232 (H) 10/13/2019 317 (H) 7. GERD without esophagitis H/o Gastroesophageal Reflux or GERD noted (K21.9) Controlled with routine medications to reduce gastric acidity. Recommend continued dosing perioperatively to prevent laryngeal reflux and/or aspiration. Would not recommend the addition of NSAIDS or RANDHAWA-2 Inhibitors to medical regimen unless absolutely necessary. 8. Rheumatoid arthritis, involving unspecified site, unspecified rheumatoid factor presence (HCC) Humira is to be held for surgery. History of Rheumatoid Arthritis (M 06.9) - chronic pre-existing condition present on admission. Concerning perioperative Methotrexate and ARAVA - most recent Rheumatology guidelines indicated these medications do not need to be held for surgery attachment included in chart. Other antiinflammatory medications should be held 7-10 days before and after surgery if possible to help with wound healing. C-SPINE FROM 08/20 Acceptable . IMPRESSION: Very minimal degenerative disc disease at C4-5. No fracture. No instability in flexion or extension. 9. PONV (postoperative nausea and vomiting) Postoperative Nausea and Vomiting noted (R11.0). Recommendations include patient take in nothing by mouth (NPO) after midnight the day before any surgery and antiemetic prophylaxis per the anesthesiologist. Consider adding Pepcid IV and/or Zofran. 10. Deep vein thrombosis (DVT) prophylaxis prescribed at discharge Education regarding venous return exercises in the lower extremities was provided. Pharmacologic and non-pharmacologic prophylaxis for prevention of a DVT should be per the ACCP Guidelines and will be per the discretion of the primary surgical service according to protocol. Chief Complaint Patient presents with Pre-operative Medical Risk Stratification History of Present Illness Elsa Catalan is a 59 y.o. female who presents for preoperative medical risk stratification consult at the request of Ayde Almanzar DO prior to LEFT ELBOW ULNAR NERVE RELEASE WITH ANTERIOR TRANSPOSITION, TENDON LENGTHENING, CAPSULAR RELEASE WITH MANIPULATION UNDER ANESTHESIA on 04-08-20 at [facility]. Patient states she had a left elbow replacement this past 09/2019 and has had pain in the hand area since that time. She states she had a lot of fluid buildup with an hematoma in this area and is here for further surgery to possibly reposition the nerve. She states she did go to a wound clinic, and had a debridement in 10/2019. In need of intervention having failed other treatments. Based on questioning at [facility] - patient has no current signs or symptoms of COVID- 19 and has had no contact or travel that would place him / her at higher risk of current infection. Please see below regarding status of active medical conditions and assessment and plan regarding details of preoperative medical risk stratification. The surgeon has ordered a medical consult to evaluate patient's medical conditions and to provide pre-surgical risk stratification along with recommendations for perioperative management regarding the patient's medical conditions including the following . . . 1. Hyperlipidemia currently controlled on Zocor 2. Hypertension currently controlled on Toprol and Avapro 3. Hypothyroidism currently controlled on Synthroid Past Medical History: Diagnosis Date Asthma exacerbated with anesthesia Cataract beginning Chronic pain disorder Diabetes mellitus, type 2 (HCC) Fatty liver Fibromyalgia, primary GERD (gastroesophageal reflux disease) Headache Hyperlipidemia Hypertension Hypothyroidism PONV (postoperative nausea and vomiting) Rheumatoid arthritis (HCC) Pepe Carter MD TMJ (dislocation of temporomandibular joint) Past Medical History Pertinent Negatives: Diagnosis Date Noted Anemia 02/21/2019 Angina pectoris ([facility]) 02/21/2019 Arrhythmia 02/21/2019 Atrial fibrillation ([facility]) 08/28/2019 Bleeding disorder ([facility]) 02/20/2019 Cancer ([facility]) 02/21/2019 CHF (congestive heart failure) ([facility]) 08/28/2019 Coronary artery disease 02/20/2019 Deep vein thrombosis ([facility]) 02/21/2019 Diabetes mellitus type I ([facility]) 02/21/2019 Edema 08/28/2019 Hard to intubate 02/21/2019 Heart murmur 08/28/2019 Heart valve disease 08/28/2019 History of blood transfusion 02/21/2019 History of cardiac cath 02/21/2019 History of echocardiogram 02/21/2019 History of stress test 02/20/2019 Malignant hyperthermia due to anesthesia 02/21/2019 Myocardial infarction ([facility]) 02/21/2019 No blood products 02/21/2019 Pulmonary embolism ([facility]) 02/21/2019 Sleep apnea, obstructive 02/20/2019 Stroke ([facility]) 02/21/2019 Past Surgical History: Procedure Laterality Date ARTHROPLASTY ELBOW TOTAL Right 02/27/2019 Procedure: RIGHT TOTAL ELBOW ARTHROPLASTY, ULNAR NERVE RELEASE WITH ANTERIOR TRANSPOSITION, RADIAL HEAD EXCISION; Surgeon: Ayde Almanzar DO; Location: [facility] Main OR; Service: Orthopedic ARTHROPLASTY ELBOW TOTAL Left 09/04/2019 Procedure: LEFT TOTAL ELBOW ARTHROPLASTY WITH ULNAR NERVE RELEASE WITH ANTERIOR TRANSPOSITION, EXCISION RADIAL HEAD; Surgeon: Ayde Almanzar DO; Location: [facility] Main OR; Service: Orthopedic COLONOSCOPY HYSTERECTOMY Still has ovaries INCISION AND DRAINAGE UPPER EXTREMITY Left 10/13/2019 Procedure: INCISION AND DRAINAGE LEFT ELBOW WITH WOUND VAC APPLICATION; Surgeon: Ayde Almanzar DO; Location: [facility] Main OR; Service: Ortho-Robotics JOINT REPLACEMENT Right knee JOINT REPLACEMENT Bilateral elbows KNEE ARTHROPLASTY Right THYROIDECTOMY Social History Tobacco Use Smoking status: Never Smoker Smokeless tobacco: Never Used Substance Use Topics Alcohol use: Never Frequency: Never Family History Problem Relation Age of Onset Heart disease Mother Arthritis Father Asthma Father Diabetes Father Heart disease Father Prior to Admission medications Medication Sig Taking? Dose Freq cholecalciferol, vitamin D3, (VITAMIN D3 ORAL) Take 1 capsule by mouth every morning Reasons: Supp. Yes 1 capsule, Oral, Every morning empagliflozin (Jardiance) 10 mg Tab Take 10 mg by mouth every morning Reasons: type 2 diabetes mellitus. Yes 10 mg, Oral, Every morning folic acid (FOLVITE) 1 MG tablet Take 2 mg by mouth every morning Reasons: Supp. Yes 2 mg, Oral, Every morning gabapentin (NEURONTIN) 300 MG capsule Take 900 mg by mouth 3 (three) times a day Reasons: Pain. Yes 900 mg, Oral, 3 times daily insulin aspart U-100 (NovoLOG) 100 unit/mL injection Inject under the skin 3 (three) times a day before meals Reasons: type 2 diabetes mellitus, Sliding scale. Yes Subcutaneous, 3 times daily before meals irbesartan (AVAPRO) 150 MG tablet Take 150 mg by mouth every morning Reasons: high blood pressure. Yes 150 mg, Oral, Every morning LANTUS SOLOSTAR U-100 INSULIN 100 unit/mL (3 mL) InPn Inject 50 Units under the skin nightly Reasons: type 2 diabetes mellitus. Yes 50 Units, Subcutaneous, Nightly leflunomide (ARAVA) 20 MG tablet Take 1 (one) tablet (20 mg total) by mouth every morning . Reasons: rheumatoid arthritis. Yes 20 mg, Oral, Every morning, . ranitidine (ZANTAC) 75 MG tablet Take 75 mg by mouth as needed for heartburn Reasons: GERD. Yes 75 mg, Oral, As needed simvastatin (ZOCOR) 20 MG tablet Take 20 mg by mouth daily with lunch Reasons: excessive fat in the blood. Yes 20 mg, Oral, Daily with lunch sulfaSALAzine (AZULFIDINE) 500 mg tablet Take 1 (one) tablet (500 mg total) by mouth 3 (three) times a day . Reasons: rheumatoid arthritis. Yes 500 mg, Oral, 3 times daily, . Synthroid 200 mcg tablet Take 200 mcg by mouth every morning Reasons: a condition with low thyroid hormone levels. Yes 200 mcg, Oral, Every morning TOPROL XL 25 mg 24 hr tablet Take 25 mg by mouth every morning Reasons: high blood pressure. Yes 25 mg, Oral, Every morning adalimumab (HUMIRA) 40 mg/0.8 mL syringe Inject 0.8 mL (40 mg total) under the skin every 14 (fourteen) days . Reasons: rheumatoid arthritis. 40 mg, Subcutaneous, Every 14 days, . methotrexate 25 mg/mL injection Inject 50 mg into the shoulder, thigh, or buttocks once a week Monday Reasons: rheumatoid arthritis. 50 mg, Intramuscular, Weekly, Monday Allergies Allergen Reactions Ciprofloxacin Rash Lisinopril Other (See Comments) Cough Adhesive Tape-Silicones Rash Penicillins Rash Review of Systems Constitution: (negative) HENT: (negative) Eyes: (negative) Respiratory: (negative) Cardiovascular: (negative) - Exercise capacity: Greater than 4 METS Gastrointestinal: (negative) Genitourinary: (negative) Musculoskeletal: (negative) Skin: (negative) Neurological: (negative) Hematological: (negative) Physical Exam BP 145/79 (BP Location: Left arm) Pulse 89 Temp 98.7 F (37.1 C) Resp 14 Ht 5' 4 Wt 64 kg (141 lb 1.5 oz) SpO2 98% BMI 24.22 kg/m Physical Exam: Constitutional General Appearance - NAD; Conversant Skin - Normal turgor; No rashes noted Eyes - Pupils equal in size bilaterally; Anicteric sclerae ENMT - Hearing intact; Oropharynx clear with moist mucosa Neck - Trachea midline, No goiter noted Cardiovascular - Regular rate and rhythm; No peripheral edema noted Respiratory - Clear to auscultate bilaterally; No accessory muscle use noted Gastrointestinal - Soft and nontender; No hepatosplenomegaly noted Musculoskeletal - No calf tenderness noted bilaterally; No clubbing or cyanosis of digits noted Psychiatric - Alert and Oriented x 3; Appropriate affect Data DATA SECTION VITALS AND PULSE OXIMETRY = BP 145/79 (BP Location: Left arm) Pulse 89 Temp 98.7 F (37.1 C) Resp 14 Ht 5' 4 Wt 64 kg (141 lb 1.5 oz) SpO2 98% BMI 24.22 kg/m LABS Ordered and Pending Review EKG - ordered and independently read and interpreted TODAY PART OF PAT EVALUATION ( NOTE - if no preoperative EKG was indicated or warranted at the time of PAT, this section will be blank ) EKG from 04/01/2020 shows normal sinus rhythm at 84 bpm there is no evidence of ischemia OLD RECORD SUMMARY - records reviewed to risk stratify patient for surgery will be documented in this section Preprocedure Sleep Apnea Assessment - No Risk (0/3) Sleep Apnea in the patient's Active Problem List or Medical History: no 1. History of apparent airway obstruction during sleep: (1 point for this category) Do you snore frequently, or snore loud enough to be heard through a closed door?: no Do you awaken from sleep with a choking sensation or have periods during sleep when someone has observed you pausing between breaths?: no 2. Somnolence of the patient: (1 point for this category) Do you find yourself frequently sleepy despite adequate hours of sleep the night before?: no Do you fall asleep easily while: watching TV, reading, riding in or driving a car?: no 3. Predisposing physician characteristics: (1 point for this category, 2 points if the BMI ? 40) BMI (Calculated): 24.2 Neck Circumference (inches): 14.5 inches Recent Results (from the past 22998 hours) XR CHEST PA/AP 09/05/2019 (Final) Status: Normal Narrative EXAMINATION: XR CHEST PA/AP HISTORY: ORDERING SYSTEM PROVIDED HISTORY: temp post-op, TECHNOLOGIST PROVIDED HISTORY: Illness/Other Reason for exam: temp post-op Cancer History: no Surgery, RadiationHistory: left elbow Encounter Type: Initial Additional signs and symptoms: n ORDERING SYSTEM PROVIDED DIAGNOSIS CODES: G89.18 Post-operative pain COMPARISON: None. FINDINGS: Portable, upright view of the chest is submitted. The cardiomediastinal silhouette, lungs, pleural spaces and pulmonary vasculature are within normal limits. No acute osseous abnormality is seen. Impression No acute cardiopulmonary abnormality. VKR/trw Workstation ID: [id number] A copy of this report has been made available to the referring physician in the hospital's EMR and/or by being faxed to the surgeon's office/surgery center. documented in this encounter Assessment and Plan 1. Preop examination Preoperative medical risk stratification indicates patient is at acceptable risk for major elective surgery with risk factors as detailed below pending lab work cspine from 02/17 no instability ECG from today read independently today. Significant for a normal sinus rhythm but with low voltage, poor r wave progressive and possible septal though without any signs of ischemia or tiffanie infarction. Instructions given regarding medications both verbally and in printed form. 2. Contracture of left elbow Patient instructed on cessation of aspirin/nsaids/herbals for seven days preoperatively and voiced understanding 3. Pre-operative cardiovascular examination This patient has no revised cardiac risk indicators (RCRI) and would therefore be considered to be at low risk for major adverse cardiac events (MACE) and describes functional capacity of greater than 4 metabolic equivalents (METS) without symptoms of chest pain or shortness of breath. This patient would thus be considered at acceptable perioperative cardiac risk based on the 2014 ACC/AHA guidelines on perioperative cardiovascular evaluation. 4. Rheumatoid arthritis, involving unspecified site, unspecified rheumatoid factor presence (HCC) No evidence of decompensated disease state, cont to follow clinically and manage expectantly Hold Arava and Humira one week preop and siv weeks postop or as directed by rheum. When held for 02/17 r elbow surgery, did have flare. Cont mtx and sulfasalazine periop 5. Benign essential hypertension Currently elevated reportedly usually well controlled on home regimen BP Readings from Last 3 Encounters: 08/28/19 (!) 147/92 04/30/19 (!) 174/95 04/23/19 (!) 162/85 will continue home regimen with no change perioperatively including am meds on DOS but holding hugo-I/arb/diuretics am DOS to avoid hypovolemia/hypotension in npo/anesthetized state Postop PRNs will be available for persistent elevations. 6. Type 2 diabetes mellitus without complication, with long-term current use of insulin (HCC) Patient endorses adequate glycemic control at home. Continue home regimen of orals and insulin perioperatively, holding orals on DOS d/t npo state and decreasing evening insulin dose on day prior to admission by 50%. Postop SSI will be provided until taking po and home regimen fully resumed. 7. Fibromyalgia Continue home medications and supportive care 8. History of postoperative nausea and vomiting Patient with history of postoperative nausea and vomiting. We will inform anesthesia of this and anticipate premedication 9. Hyperlipidemia, unspecified hyperlipidemia type Will continue dietary control and statin therapy to mitigate cv risk 10. Asthma Patient reports no recent flares, adequate symptom control and compliance with home medications. We will continue scheduled and prn nebs/mdis and follow pulmonary status closely in the perioperative period Reportedly exacerbated by anesthesia will inform anesthesiology 11. Acquired hypothyroidism Patient presents with no evidence of decompensated disease state, will continue home dose synthroid perioperatively. 12. Need for prophylactic measure Patient is at routine risk for postop DVT and choice of pharmacologic agent deferred to attending surgeon and would recommend utilizing the 2012 ACCP Consensus Guidelines. Chief Complaint Patient presents with Pre-operative Medical Risk Stratification History of Present Illness Elsa Catalan is a 59 y.o. female who presents for preoperative medical risk stratification consult at the request of Dr. Almanzar prior to 09/04 at [facility], LEFT TOTAL ELBOW ARTHROPLASTY WITH ULNAR NERVE RELEASE WITH ANTERIOR TRANSPOSITION, EXCISION RADIAL HEAD . Patient reports a long long history of RA. Has a five to seven year history of pain and mobility issues in her left elbow. She has had therapy and worn a brace but the symptoms continue. The patient denies additional prodromal illness event or trauma Internal medicine consulted for preoperative medical evaluation as well as perioperative management of chronic medical issues. 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 The patient reports PONV with prior anesthesia experiences. This patient reports no history of cardiopulmonary disease. The functional capacity is at least 4 METs without symptoms of chest pain or shortness of breath. Please see below regarding status of active medical conditions and assessment and plan regarding details of preoperative medical risk stratification. Past Medical History: Diagnosis Date Asthma exasperated with anesthesia Cataract beginning Chronic pain disorder Diabetes mellitus, type 2 (HCC) Fatty liver Fibromyalgia, primary GERD (gastroesophageal reflux disease) Headache Hyperlipidemia Hypertension Hypothyroidism PONV (postoperative nausea and vomiting) Rheumatoid arthritis (HCC) Pepe Carter MD TMJ (dislocation of temporomandibular joint) Past Medical History Pertinent Negatives: Diagnosis Date Noted Anemia 02/21/2019 Angina pectoris (HCC) 02/21/2019 Arrhythmia 02/21/2019 Atrial fibrillation (HCC) 08/28/2019 Bleeding disorder (HCC) 02/20/2019 Cancer ([facility]) 02/21/2019 CHF (congestive heart failure) ([facility]) 08/28/2019 Coronary artery disease 02/20/2019 Deep vein thrombosis ([facility]) 02/21/2019 Diabetes mellitus type I ([facility]) 02/21/2019 Edema 08/28/2019 Hard to intubate 02/21/2019 Heart murmur 08/28/2019 Heart valve disease 08/28/2019 History of blood transfusion 02/21/2019 History of cardiac cath 02/21/2019 History of echocardiogram 02/21/2019 History of stress test 02/20/2019 Malignant hyperthermia due to anesthesia 02/21/2019 Myocardial infarction ([facility]) 02/21/2019 No blood products 02/21/2019 Pulmonary embolism ([facility]) 02/21/2019 Sleep apnea, obstructive 02/20/2019 Stroke ([facility]) 02/21/2019 Past Surgical History: Procedure Laterality Date ARTHROPLASTY ELBOW TOTAL Right 02/27/2019 Procedure: RIGHT TOTAL ELBOW ARTHROPLASTY, ULNAR NERVE RELEASE WITH ANTERIOR TRANSPOSITION, RADIAL HEAD EXCISION; Surgeon: Ayde Almanzar DO; Location: [facility] Main OR; Service: Orthopedic HYSTERECTOMY Still has ovaries JOINT REPLACEMENT Right knee THYROIDECTOMY Social History Tobacco Use Smoking status: Never Smoker Smokeless tobacco: Never Used Substance Use Topics Alcohol use: Never Frequency: Never Family History Problem Relation Age of Onset Heart disease Mother Arthritis Father Asthma Father Diabetes Father Heart disease Father @ Prior to Admission medications Medication Sig Taking? Dose Freq adalimumab (HUMIRA) 40 mg/0.8 mL syringe Inject 40 mg under the skin every 14 (fourteen) days Reasons: rheumatoid arthritis. Yes 40 mg, Subcutaneous, Every 14 days cholecalciferol, vitamin D3, (VITAMIN D3 ORAL) Take by mouth every morning Reasons: Supp. Yes Oral, Every morning empagliflozin (Jardiance) 10 mg Tab Take 10 mg by mouth every morning Reasons: type 2 diabetes mellitus. Yes 10 mg, Oral, Every morning folic acid (FOLVITE) 1 MG tablet Take 2 mg by mouth every morning Reasons: Supp. Yes 2 mg, Oral, Every morning gabapentin (NEURONTIN) 300 MG capsule Take 300 mg by mouth 3 (three) times a day Reasons: Pain. Yes 300 mg, Oral, 3 times daily insulin aspart U-100 (NovoLOG) 100 unit/mL injection Inject under the skin 3 (three) times a day before meals Reasons: type 2 diabetes mellitus, Sliding scale. Yes Subcutaneous, 3 times daily before meals irbesartan (AVAPRO) 150 MG tablet Take 150 mg by mouth every morning Reasons: high blood pressure. Yes 150 mg, Oral, Every morning LANTUS SOLOSTAR U-100 INSULIN 100 unit/mL (3 mL) InPn 50 Units nightly Reasons: type 2 diabetes mellitus. Yes 50 Units, Nightly leflunomide (ARAVA) 20 MG tablet Take 20 mg by mouth every morning Reasons: rheumatoid arthritis. Yes 20 mg, Oral, Every morning simvastatin (ZOCOR) 20 MG tablet Take 20 mg by mouth daily with lunch Reasons: excessive fat in the blood. Yes 20 mg, Oral, Daily with lunch sulfaSALAzine (AZULFIDINE) 500 mg tablet Take 500 mg by mouth 3 (three) times a day Reasons: rheumatoid arthritis. Yes 500 mg, Oral, 3 times daily SYNTHROID 175 mcg tablet Take 200 mcg by mouth every morning Reasons: a condition with low thyroid hormone levels. Yes 200 mcg, Oral, Every morning TOPROL XL 25 mg 24 hr tablet Take 25 mg by mouth every morning Reasons: high blood pressure. Yes 25 mg, Oral, Every morning methotrexate 25 mg/mL injection 50 mg once a week Reasons: rheumatoid arthritis, Monday. 50 mg, Weekly Allergies Allergen Reactions Lisinopril Other (See Comments) Cough Adhesive Tape-Silicones Rash Penicillins Rash Review of Systems Constitution: (negative) HENT: (negative) Eyes: (negative) Respiratory: (negative) Cardiovascular: (negative) - Exercise capacity: Greater than 4 METS Gastrointestinal: (negative) Genitourinary: (negative) Musculoskeletal: (negative) Skin: (negative) Neurological: (negative) Hematological: (negative) Physical Exam BP (!) 147/92 Pulse 85 Temp 98.8 F (37.1 C) (Oral) Resp 13 Ht 5' 4 Wt 64 kg (141 lb 1.5 oz) SpO2 96% BMI 24.22 kg/m General Appearance - NAD; Conversant Skin - Normal turgor; No rashes noted Eyes - Pupils equal in size bilaterally; Anicteric sclerae ENMT - Hearing intact; Oropharynx clear with moist mucosa Neck - Trachea midline, No goiter noted Cardiovascular - Regular rate and rhythm;, no rubs murmurs gallops extra sounds noted. No peripheral edema noted Respiratory - Clear to auscultate bilaterally; No increased work of breathing or accessory muscle use noted Gastrointestinal - Soft, nondistended and nontender; No hepatosplenomegaly noted, neg rtrg or cvatb, +bs Musculoskeletal - No calf tenderness noted bilaterally;, dorsiflexion intact. No clubbing or cyanosis of digits noted Psychiatric/Neuro - Alert and Oriented x 3; Appropriate mood and affect, [place] and neg FND appreciated Data Preprocedure Sleep Apnea Assessment - No Risk (0/3) Sleep Apnea in the patient's Active Problem List or Medical History: no 1. History of apparent airway obstruction during sleep: (1 point for this category) Do you snore frequently, or snore loud enough to be heard through a closed door?: no Do you awaken from sleep with a choking sensation or have periods during sleep when someone has observed you pausing between breaths?: no 2. Somnolence of the patient: (1 point for this category) Do you find yourself frequently sleepy despite adequate hours of sleep the night before?: no Do you fall asleep easily while: watching TV, reading, riding in or driving a car?: no 3. Predisposing physician characteristics: (1 point for this category, 2 points if the BMI ? 40) BMI (Calculated): 24.2 Neck Circumference (inches): 12 inches Recent Results (from the past 51770 hours) XR ELBOW RIGHT 3+ VIEWS (STANDARD) 02/27/2019 (Final) Status: Normal Narrative EXAMINATION: XR ELBOW RIGHT 3+ VIEWS (STANDARD) HISTORY: ORDERING SYSTEM PROVIDED HISTORY: ap/lat postop elbow, TECHNOLOGIST PROVIDED HISTORY: Reason for exam: post op Injury/Trauma Cancer History: no Surgery, RadiationHistory: no Encounter Type: Initial Mechanism of injury: post op ORDERING SYSTEM PROVIDED DIAGNOSIS CODES: S59.909S Elbow injury, unspecified laterality, sequela Elbow surgery. COMPARISON: Right elbow radiographs 07/21/2016 from [facility]. FINDINGS: Three views of the right elbow were performed. There is an elbow joint prosthesis with statins in the distal humerus and proximal ulna. Best seen on the lateral view there is linear lucency adjacent to the ulnar stem near the base of the coronoid process which may represent a prominent cement bone interface more likely than a nondisplaced fracture, as no distal extent of fracture can be appreciated.. Radial head has been resected. There is moderate soft tissue swelling and multifocal soft tissue air compatible with recent surgery. Impression Recent postoperative change for radial head resection and elbow joint prosthesis. Linear lucency adjacent to the ulnar stem in the region of the base of the coronoid process probably represents a mildly prominent cement bone interface. A nondisplaced fracture is considered less likely. JRS/trn Workstation ID: [id number] documented in this encounter Quick Note - Margaret Spring RN - 02/21/2019 2:34 PM EDTPre-Procedure Instructions - Tien Page RN - 02/21/2019 12:21 PM EDTPlan of Care - Sherrill Castano RN - 02/28/2019 4:10 PM EDT Miscellaneous Notes (unrecog nized section and content) Dr. Silva notified of critical lab value of 407 Patient Instructions for [facility]: Prior to surgery: ? Please be sure to wear loose, comfortable clothing and non-skid shoes ? Bring your health insurance information and a photo ID, as well as your Living Will or Durable Power of Nurse Ldr for Healthcare if it is available to you. ? Bring your cane/walker any applicable assistive device. If you currently use a CPAP, please bring this device with you on the day of surgery. ? Bring a list of your medications with the name of the medication, dose and how often you are taking it. Be sure to include herbal preparations and [id number] medications on this list. ? Do not have any solid food 8 hours prior to surgery/procedure. This includes food, gum, mints or hard candy. Carefully follow any instructions you were given by your Surgeon regarding further food restrictions. ? Do not drink any alcoholic beverages, smoke or chew tobacco during the 24 hours prior to your surgery/procedure. ? Drink plenty of fluids the day prior to your procedure to maintain hydration. You may drink clear liquids up to 2 hours prior to surgery time (unless otherwise instructed by your surgeon). This includes water, Gatorade and black coffee (no dairy or creamer products). ? On the morning of your surgery/procedure, you may brush your teeth but avoid swallowing water except for a sip with any recommended medications to be taken the morning of surgery. ? Bathe or shower the night before or early on the day of your surgery/procedure. Avoid the use of lotions, perfumes or powders. All nail uzbek is to be removed from fingernails and toenails. ? Please be sure to remove all jewelry and body piercings and leave all valuables at home. ? You will receive a phone call between 3:30 and 7:30 pm the business day before your procedure to verify the time you should arrive at the hospital. ? Eyeglasses, hearing aids or dentures may be worn to the hospital. Bring your storage container for these items as you will be asked to remove them prior to your surgery/procedure. Please do not wear any contact lenses the day of your surgery/procedure. ? Parking at [facility] is free. Please park in the lot in front of the main lobby. Enter the Main Entrance where a Information Security Consultant Liaison at the information desk will greet you and accompany you to the surgery waiting area. ? Children under the age of 16 are NOT permitted in the Pre/Post Operative areas. They are welcome to wait with a responsible adult in the surgery waiting area. ? Have you had a chance to view our online educational program called Tessie? It is important that you watch it as this is a standard part of your surgery preparation process here at [facility]. It will provide you with additional important information that will help to make your surgery/procedure and recovery process as smooth as possible. After your surgery: ? If you are having an outpatient procedure and will be going home the same day, a responsible licensed adult must be available for transportation, and is expected to remain at the hospital for the duration of your surgery/procedure. You are NOT allowed to drive yourself home. Instructed on CHG prep. or daughter will bring her to the hospital and be with her after discharge. documented in this encounter Problem: Plan for Discharge Goal: Knowledge of discharge plan and instructions Outcome: Met RN went over AVS with pt at bedside. Rx given. Pt. Verbalized understanding of all f/u care needs.VSS. Pain was escorted off the unit at 1500. Associated Problem(s): Elbow pain POD # 1 RIGHT TOTAL ELBOW ARTHROPLASTY, ULNAR NERVE RELEASE WITH ANTERIOR TRANSPOSITION, RADIAL HEAD EXCISION - Pt HD stable afebrile - pre- op HGb 12, asymptomatic Lab Results Component Value Date HGB 9.8 (L) 02/28/2019 - Continue pain control prn with percocet - Cont IS q1 hr while awake - Cont dvt prophylaxis with david hose, SCDs, and early ambulation as tolerated - Cont NWB to operative extremity, maintain immobilizer in extension except for hand, wrist, and elbow ROM - Cont bowel regimen - Maintain incisional vac until day #7, patient instructed on use at bedside - Pt seen and evaluated by PT/OT - Ortho stable - Questions answered. Patient and family updated at bedside Plan discussed with Dr. Almanzar. Disposition: Plan on discharge today at 3pm and after working with OT Subjective/Objective: Perpetual Assessment: POD #1 RIGHT TOTAL ELBOW ARTHROPLASTY, ULNAR NERVE RELEASE WITH ANTERIOR TRANSPOSITION, RADIAL HEAD EXCISION . Patient doing well. Pain is controlled. Tolerating regular diet. No nausea or vomiting. + Flatus. + Voiding. Plans on ambulating with therapy. Wants to go home. Physical Examination: BP 133/69 (BP Location: Left arm, Patient Position: Lying) Pulse 99 Temp 98.3 F (36.8 C) (Oral) Resp 12 Ht 5' 4 Wt 64.5 kg (142 lb 3.2 oz) SpO2 96% BMI 24.41 kg/m General: NAD; Alert and oriented x3 Lungs: Clear without rales, rhonchi or wheezes; no increased respiratory effort Cardiovascular: RRR; no edema Abdomen: Positive bowel sounds; soft; non tender Post-Op Shoulder Exam: Right Elbow: Post op dressing CDI with incisional vac in place. NVI. Cap Refill less than 3 seconds and moving the fingers. Patient moving fingers better than last night, stilll working on extension of fingers. Patient having numbness, but started feeling burning and tingling of all fingers today. Extremity pink and warm. Negative Jose Luis's. Psych: Mood and affect appropriate. Skin: No rashes; normal turgor. Intake/Output last 3 shifts: I/O last 3 completed shifts: In: 2876.9 [P.O.:1040; I.V.:1836.9] Out: 2600 [Urine:2250; Emesis/NG output:200; Blood:150] Results/Medications Reviewed 02/28/19 10:21 AM: Laboratory, Medications and Transcriptions ELSA CATALAN [facility] [id number] 1960 DATE 02/27/2019 OPERATIVE REPORT SURGEON AYDE ALMANZAR DO [employer] PARAPROFESSIONAL ROCHELLE SALMERON PA-C PREOPERATIVE DIAGNOSES Right elbow: 1. Rheumatoid arthritis. 2. Ulnar nerve compression. POSTOPERATIVE DIAGNOSES Right elbow: 1. Rheumatoid arthritis. 2. Ulnar nerve compression. PROCEDURE Right elbow: 1. Total elbow arthroplasty using the [employer] [place]rey total elbow system with an extra small cemented humeral component and an extra small ulnar component, 75601. 2. Ulnar nerve release with anterior transposition, 45981. 3. Excision of radial head, 41701. ANESTHESIA General with regional block. FLUIDS Crystalloid. ESTIMATED BLOOD LOSS Per anesthesia record. COMPLICATION None. CONDITION Stable to postanesthesia care. INDICATIONS Patient is a 58-year-old female who was seen previously in the office with significant elbow arthritis from rheumatoid. She tried conservative treatment with minimal improvement. She has had pain for years. She is on rheumatoid medication. She did want to discuss surgical intervention above due to worsening of her symptoms and pain. After risks, benefits, and complications were reviewed, appropriate consent was obtained. Patient did want to proceed with surgery. DESCRIPTION OF PROCEDURE The patient was seen in preoperative holding by Department of Orthopedics and Anesthesia, at which time, we identified the right upper extremity as the appropriate extremity for procedure. I placed my initials on the extremity for identification. She was given IV antibiotics preoperatively for prophylaxis. She was also administered a regional block by Anesthesia for postop pain relief. She was taken back to the operative suite, placed supine on a well-padded table, and placed under general anesthesia without complication. She was then placed in a lateral decubitus position with the right side up. It was held in place with a beanbag positioner. A well-padded axillary roll was placed underneath the left axilla. The right upper extremity was sterilely prepped and draped in normal fashion. A sterile tourniquet was applied. Her elbow was flexed over a bump. I tried not to use a tourniquet to control blood loss. Her midline incision was made over the elbow through the skin with a scalpel. A blunt retractor was placed and hemostasis obtained with Bovie. Dissection was taken down, making large skin flaps. Dissection was taken down to the cubital tunnel. This was where her ulnar nerve was compressed. The ulnar nerve was released from her cubital tunnel and tagged with a vessel loop. It was released proximal all the way deep in the triceps and distal to the 1st motor branch. It was nicely mobile and was able to be controlled with a vessel loop. Again, minimal tension was placed on the nerve throughout the case. The medial intermuscular septum was excised as well. The joint was then opened on the medial side with a paratricipital approach. I exposed the humerus and the ulna. Next, I went lateral and did a lateral paratricipital approach, exposing the lateral side, exposing the humerus and the ulna. I did a triceps-sparing approach, keeping the triceps on the olecranon. The elbow was able to be dislocated and the humerus was prepped. A piece of bone was removed with the saw on the middle and then the canal was opened with a bur. I placed intramedullary jose juan up and used some reamers. I did instrumentation for an extra small humeral component. The guide was placed on the humerus on the jose juan and then the cuts were made for the distal humerus with the guide. The guide was removed when the cuts were completed. The extra small trial was placed up and sat nicely flush. I did trim back some of the condyles so I could see the eyelets were to put the bushings. This appeared to be satisfactory. Next, the ulna was exposed. The radial head was very deformed and arthritic. I had to remove this and excise this. I felt this would be a pain generator. Hohmann retractors were placed around the radial neck and a flat cut was made with an oscillating saw. The head and neck were removed. The ulna was now exposed and the olecranon tip and coronoid tip were removed with the rongeur. A bur was taken to open the canal. Canal finer was used. I then fashioned the canal and the proximal ulna with a bur to fit the reamers. I reamed to put in an extra small reamer. I was finally able fashion the humerus to where the extra small trial implant sat nicely in proper position. I then put humeral component in and linked them. The elbow had excellent range of motion with good center rotation. It went from 0 degrees of extension to full flexion, pronation and supination. This was satisfactory. The components were removed. Irrigation was used. The canals were dried with Ray-Tecs. A cement plug was placed in the humeral canal in the appropriate depths. I did not need 1 in the ulna since it narrowed down so far distally. I cemented in the 2 extra small components with antibiotic cement, first the humerus and the ulna, removing excess cement, and then coupling the components with the bushings and holding it in full extension till it fully hardened. Once this fully hardened, I removed any excess cement. This appeared to be satisfactory. Again, the ulnar nerve was kept out of harm's way throughout case and retracted with minimal retraction and not harmed. I did obtain hemostasis throughout the case with Aquamantys and electrocautery Bovie. Good hemostasis was obtained. Irrigation was used again. A trough was fashioned anteriorly from the muscle on the medial side and transposed the ulnar nerve anteriorly. Some soft tissue was closed behind it to keep it anterior. There was no tethering on the nerve and this was transposed nicely anteriorly after being released. Again, this was released with the 1st motor branch distally. Then, the para-tricipital approach was closed with #1 Vicryl. The skin was approximated with 2-0 Vicryl. Then, nylon was placed on the skin. Local anesthetic was injected. Pressure dressing was applied. The elbow was held in full extension and a brace was applied in full extension. The patient was then awoken from anesthesia without complication and transferred to the postanesthesia care unit in stable condition. I did utilize my physician wet process miller head assistant, Rochelle Salmeron, throughout the case. He was an integral part of the case, helped position the patient, assisted throughout the case as well as closure of the wounds, and helped transfer the patient to postanesthesia care unit. He was an integral part of the case. AYDE ALMANZAR DO D 02/27/2019 19:02 [id number] T 02/28/2019 01:19 TJK/MODL Pt oriented to room and call light. Pt instructed to ask for help when getting out of bed. Pt verbalized understanding documented in this encounter Discharge instructions, 3 prescriptions, and dressing supplies given to patient. Patient verbalized understanding. No needs at this time. Spoke to LEÓN Sanders regarding temp of 102.9 Patient refused tylenol at 0600, will encourage pt to take tylenol. Marilyn will be up to see patient. LRAHMAN ELSA CATALAN [facility] [id number] 1960 DATE 09/04/2019 OPERATIVE REPORT SURGEON AYDE ALMANZAR DO CLASSROOM PARAPROFESSIONAL ROCHELLE SALMERON PA-C PREOPERATIVE DIAGNOSES Left elbow: 1. Rheumatoid arthritis. 2. Cubital tunnel syndrome. POSTOPERATIVE DIAGNOSES Left elbow: 1. Rheumatoid arthritis. 2. Cubital tunnel syndrome. PROCEDURE Left elbow: 1. Total elbow arthroplasty using Iam Coonrad/Morrey total elbow system with a size extra small cemented humerus and a size extra small cemented ulna, 20020. 2. Excision of radial head, 42180. 3. Ulnar nerve release and anterior transposition, 62366. ANESTHESIA General with regional block. FLUIDS Crystalloid. ESTIMATED BLOOD LOSS Per anesthesia record. COMPLICATION None. CONDITION Stable to postanesthesia care. INDICATIONS The patient is a 59-year-old female who is well known to me. She has tried conservative treatment for several years. She wanted to discuss surgical intervention above due to continued pain symptoms and decreased motion. Risks, benefits, and complications were reviewed and appropriate consent was obtained. Patient did want to proceed with surgery. DESCRIPTION OF PROCEDURE The patient was taken back to the operative suite and placed supine on a well-padded table. Placed under general anesthesia without complication. She was then placed in a lateral decubitus position with the left side up. Elbow placed with a beanbag positioner. A well- padded axillary roll was placed underneath the right axilla. Left upper extremity was sterilely prepped and draped in normal fashion. A sterile tourniquet was applied to the upper arm. Esmarch bandage was taken to exsanguinate the extremity. Tourniquet inflated to 250 mmHg. She lacked at least 30 degrees of extension. The elbow was placed over a bump. Incision was made over the posterior aspect of the elbow slightly lateral through the skin with a scalpel. A blunt retractor was placed. Hemostasis obtained with Bovie. Dissection taken down and the ulnar nerve was dissected out ulnarly. The medial intermuscular septum was excised. Vessel loops were placed around the ulnar nerve. This was dissected out freely proximal and distal. The nerve was grossly intact and moved out of the cubital tunnel to be transposed anteriorly at the end of the case. It was dissected distally to the 1st motor branch. Next, medial and lateral paratricipital approach was taken over the elbow, exposing the joint. The humerus was dislocated. I was using the Iam [place]/Morrey system. A piece of bone was taken off the distal humerus centrally and a bur was taken to open up the canal. The guide was then placed over intramedullary reamer. The cuts were made. The guide was removed. The ends of the bone were freshened up with a saw and a rongeur. I then broached the canal and then placed an extra small component. This had excellent position. Humeral prep was completed. Next, the ulna was exposed. The olecranon tip and the coronoid tip were taken off with a rongeur. The canal was opened with a bur. I then used the reamers and the broaches until I got to a good position for the extra-small ulnar component. The components were then placed in and locked in with a pin. I was able to get her to full extension and full flexion, pronation and supination. I dissected off laterally and her humeral head was very arthritic and also deformed. Retractors were placed around the radial neck. A saw was taken to cut the radial neck and radial head was excised. This appeared to be satisfactory. Hemostasis was obtained throughout the case with Bovie and and Aquamantys. I cemented in the components with antibiotic cement. A cement plug was placed in the humerus up the canal to appropriate depth. Irrigation was used. The canals were dried. The components were cemented in and then the pin was placed, locking it in place, holding this into full extension. Excess cement was removed with instrumentation. A piece of bone was then placed in the anterior flange off the humerus for additional fixation. Once this fully hardened, the elbow had full range of motion with good stability. Tourniquet was released and good hemostasis obtained. The paratricipital approaches were closed with #1 Vicryl. The ulnar was transposed anteriorly and a small fascial band was placed posterior to this so it would not sublux posteriorly. This was fixed with-0 Vicryl Plus suture. The skin was approximated with 2-0 Vicryl followed by nylon on the skin. Local anesthetic was injected. Pressure dressing was applied. Her arm was placed in a brace in full extension. The patient was then woken from anesthesia without complication and transferred to the postanesthesia care unit in stable condition. I did utilize my physician wet process miller head assistant, Rochelle Salmeron, throughout the case. He was an integral part of the case, helped position the patient, assist throughout, as well as closure of wounds, and helped transfer the patient to the postanesthesia care unit. AYDE ALMANZAR DO D 09/04/2019 21:29 [id number] 09/05/2019 00:28 ANTWANK/MODL [facility] Utilization Review Notes DIAGNOSIS:M06.9; M24.522 NEED FOR SURGERY:M06.9; M24.522 DATE OF PROCEDURE: 09/04/2019 PROCEDURE: LEFT TOTAL ELBOW ARTHROPLASTY WITH ULNAR NERVE RELEASE WITH ANTERIOR TRANSPOSITION, EXCISION RADIAL HEAD POST OP COMPLICATIONS: none DISPOSITION: TBD POST OP Brief Post Operative Note Patient Name: Elsa Catalan : 1960 (59 y.o.) Date of Service: 09/04/2019 [facility]: [id number] Procedure(s): LEFT TOTAL ELBOW ARTHROPLASTY WITH ULNAR NERVE RELEASE WITH ANTERIOR TRANSPOSITION, EXCISION RADIAL HEAD Pre-Operative Diagnoses: * M06.9; M24.522 Post-Operative Diagnoses: Surgeon(s) and Role: * Ayde Almanzar DO - Primary Anesthesiologist: Asim Qiu MD Network Professional: Stephanie Retana RN Physician Patient Care Assistant: Rochelle Salmeron PA-C Health Program Director: Kristin Padilla, TECHNOLOGIST Network Professional Relief: Aimee Dietz RN Relief Scrub: ST Leonardo Scrub Person: ST Sue Scrub Person Assist: Stewart Scruggs RN Operative findings: see report Intra and immediate post-operative complications: none Type of anesthesia used: Regional, General Estimated blood loss: 100 mL Estimated urine output: 0 mL Specimen(s): * No specimens in log * Implant(s): Implant Name Type Inv. Item Serial No. Pocket Marker Lot No. LRB No. Used Action PLUG 8-10MM SM IM CANAL - [id number] PLUG 8-10MM SM IM CANAL BIOMET INC [id number] Left 1 Implanted CEMENT BONE ANTIBIOTIC SIMPLEX P W/TOBRAMYCIN SINGLE DOSE - [id number] Cement CEMENT BONE ANTIBIOTIC SIMPLEX P W/TOBRAMYCIN SINGLE DOSE INGRID OR [id number] Left 2 Implanted ALICIA/MORREY TOTAL ELBOW INTERCHANGEABLE HUMERAL ASSEMBLY EXTRA SMALL 4 INCH LENGTH IAM BIO [id number] Left 1 Implanted COONRAD/MORREY TOTAL ELBOW INTERCHANGEABLE ULNAR ASSEMBLY EXTRASMALL LEFT 3 INCH IAM BIO [id number] Left 1 Implanted PLUG 8MM CEMENT SM DIAMETER - [id number] PLUG 8MM CEMENT SM DIAMETER BIOMET INC [id number] Left 1 Implanted PLUG 8-10MM SM IM CANAL - [id number] PLUG 8-10MM SM IM CANAL BIOMET INC [id number] Left 1 Explanted Drain(s): * No LDAs found * Wound(s): Incision 02/27/19 Arm Right (Active) Wound 09/04/19 Surgical Wound Arm Left (Active) Wound Bed Characteristics HEBER (Unable to assess) 09/04/2019 2:10 PM Reassessment Unchd 09/04/2019 3:50 PM Ying-wound Assessment HEBER 09/04/2019 2:10 PM Drainage Amount None 09/04/2019 4:20 PM Odor None 09/04/2019 4:20 PM Primary Dressing Gauze roll 09/04/2019 4:20 PM Ayde Almanzar DO 09/04/2019 4:40 PM documented in this encounter Associated Problem(s): Non-healing wound of upper extremity POD 1 S/p INCISION AND DRAINAGE LEFT ELBOW WITH WOUND VAC APPLICATION HD stable Labs unremarkable A febrile Plan - Continue current pain management-prescription provided for discharge - Po Bactrim x 7 days - Educated on tight glycemic control to promote wound healing - Follow up appointment with Dr. Santana in two weeks Subjective/Objective: Perpetual Assessment: Elsa Catalan is a 59 y.o. y/o female on hospital day 0 States she is comfortable Flatus + Patient resting in bed, no distress noted Review of Systems: The following system(s) were reviewed: Cardio: no chest pain Pulm: no shortness of breath Abd:passing flatus, no GI upset : No dysuria Physical Examination: BP 134/86 (BP Location: Right arm, Patient Position: Lying) Pulse 81 Temp 98.3 F (36.8 C) (Oral) Resp 14 Ht 5' 4 Wt 64 kg (141 lb 1.5 oz) SpO2 97% BMI 24.22 kg/m General: Awake, appropriate, No acute distress, LOC x3 Lungs: Easy and unlabored Cardiovascular: RRR; Abdomen: Positive bowel sounds; soft; non tender. Positive flatus, tolerating diet : voiding without difficulty Extremity: Left extremity wrapped with hugo bandage, wound vac and splint in place. Minimal seurosangous drainage noted in wound vac container. Numbness noted in pinky. Median, radian and ulnar nerve testing normal and intact. No swelling noted. Capillary refill less than 3 sec. Warm and dry Intake/Output last 3 shifts: I/O last 3 completed shifts: In: 800 [P.O.:500; I.V.:200; IV Piggyback:100] Out: 620 [Urine:600; Drains:10; Blood:10] Results/Medications Reviewed 10/14/19 1:21 PM: Laboratory [facility] Micro[facility] [place] [id number] 1960 DATE 10/13/2019 OPERATIVE REPORT SURGEON AYDE ALMANZAR, DO CLASSROOM PARAPROFESSIONAL ROCHELLE SALMERON PA-C PREOPERATIVE DIAGNOSES Left elbow: 1. Necrotic wound. 2. Large soft tissue defect, 14 x 7 x 1 cm. 3. Prior total elbow arthroplasty. POSTOPERATIVE DIAGNOSES Left elbow: 1. Necrotic wound. 2. Large soft tissue defect, 14 x 7 x 1 cm. 3. Prior total elbow arthroplasty. PROCEDURES Left elbow: 1. Incision with debridement posterior wound involving skin, Superficial and deep fascia as well as muscle, 94023. 2. Wound vacuum-assisted closure pressure device, a 14 x 7 x 1 cm wound, 80471. ANESTHESIA General. FLUIDS Crystalloid. ESTIMATED BLOOD LOSS Minimal. COMPLICATION None. CONDITION Stable to postanesthesia care. INDICATIONS The patient is a 59-year-old female, previously had a left total elbow arthroplasty over a month ago. She is a rheumatoid arthritis patient and on the rheumatoid medications which decreased her healing immunity. She had trouble healing her wound. She had hematoma afterwards. She developed eschar. We tried to get her to wound care and she ended up getting a large debridement and worsening of her soft tissue defect. Due to increased pain and lack of healing, surgical intervention above was discussed with her. After risks, benefits and complications were reviewed, appropriate consent was obtained, patient did want to proceed with surgery. There was no evidence of active infection up until this point, just a nonhealing wound with necrotic tissue. DESCRIPTION OF PROCEDURE Patient was taken back to the operative suite, placed supine on a well- padded table, placed under anesthesia without complication. She was then placed in a lateral decubitus position with the left side up, was held in place with a beanbag positioner. The left upper extremity was sterilely prepped and draped in a normal fashion. The tourniquet was not used. The elbow was placed over sterile bump. The wound was debrided with a scalpel, rongeur and curette. This is down to good bleeding edges and the base. Skin, superficial and deep fascia as well as muscle was extensively debrided and any necrotic tissue was taken out to get viable healthy tissue that was bleeding. Irrigation, 3 liters of pulse lavage followed by 3 L of normal saline was done and the wound looked very good. I cut a silver impregnated wound sponge to fit the defect which was a 14 x 7 x 1 cm defect. Mastisol was placed around the skin and adhesion was applied. A hole was cut out in the middle and the suction device was placed on and placed to suction. This had a good seal. This was coverage with the negative pressure wound VAC. It was placed in standard settings. A sterile Webril was applied and an Orthoglass posterior splint was applied at the elbow about 40 degrees of flexion. The patient was then awoken from anesthesia without complication, transferred to the postanesthesia care unit. PROGNOSIS Patient's prognosis is guarded. She does have some immunocompromise being on rheumatoid medications and a diabetic. The wound looked very good after debridement and hopefully, the wound VAC will help heal this up nicely. She will have to get wound VAC changes every 3 days and get this approved through her insurance. It is possible she will need a split- thickness skin graft in the future as well. Of note, there were no signs of gross infection. Implants and hardware were not affected as well. Nothing tracked deep to the joint. I did utilize my physician wet process miller head assistant, Rochelle Salmeron, throughout the case. He was an integral part of the case, helped position the patient, assist throughout the case as well as closure of the wound, help transfer the patient to postanesthesia care unit. AYDE ALMANZAR DO D 10/13/2019 11:50 [id number] 10/13/2019 15:11 ANTWANK/MODL Brief Post Operative Note Patient Name: Elsa Catalan : 1960 (59 y.o.) Date of Service: 10/13/2019 [facility]: [id number] Procedure(s): INCISION AND DRAINAGE LEFT ELBOW WITH WOUND VAC APPLICATION Pre-Operative Diagnoses: * UNKNOWN Post-Operative Diagnoses: Surgeon(s) and Role: * Ayde Almanzar DO - Primary Anesthesiologist: Lazaro Alvarez MD Network Professional: Aimee Dietz RN Physician Patient Care Assistant: Rochelle Salmeron PA-C Scrub Person: Anastasiia Gurrola Nurse Float: Keily Oliveros RN Operative findings: see report Intra and immediate post-operative complications: none Type of anesthesia used: General Estimated blood loss: 10 mL Estimated urine output: Refer to surgical log Specimen(s): * No specimens in log * Implant(s): * No implants in log * Drain(s): Negative Pressure Wound Therapy 10/13/19 Left;Posterior;Mid (Active) Wound(s): Negative Pressure Wound Therapy 10/13/19 Left;Posterior;Mid (Active) Incision 02/27/19 Arm Right (Active) Wound 09/04/19 Surgical Wound Arm Left (Active) Wound 10/08/19 2 Surgical Ulcer Elbow Left (Active) Wound 10/13/19 Surgical Wound Arm Left (Active) Ayde Almanzar DO 10/13/2019 10:05 AM documented in this encounter ELSA CATALAN [facility] [id number] N [id number] 1960 DATE 04/08/2020 OPERATIVE REPORT SURGEON AYDE ALMANZAR DO CLASSROOM PARAPROFESSIONAL ROCHELLE SALMERON PA-C CLASSROOM PARAPROFESSIONAL 2 PEGGY MOSES CNP PREOPERATIVE DIAGNOSIS Left elbow. 1. Ulnar neuropathy. 2. Contracture. 3. Status post total elbow arthritis. POSTOPERATIVE DIAGNOSIS Left elbow. 1. Ulnar neuropathy. 2. Contracture. 3. Status post total elbow arthritis. PROCEDURE Left elbow. 1. Open excision of bone, soft tissue, and capsule with releases; 30972. 2. Ulnar nerve release with anterior transposition; 75576. ANESTHESIA General with regional block. FLUIDS Crystalloid. ESTIMATED BLOOD LOSS Minimal. COMPLICATIONS None. CONDITION Stable to postanesthesia care. INDICATIONS The patient is a 59-year-old female, who underwent a left total elbow months ago. She was doing fine. She had some wound breakdown and we [facility] They were using some sort of acetic acid packing with her which ended up irritating her nerve. We got her out of there and ended up doing a debridement, wound VAC, and healed her wound, but her nerve kept getting worse. We monitored it. We got a repeat EMG and it was still not recovering. Discussed with her about the surgical intervention above so her condition would not get worse and hopefully get better. She is starting to get more weakness and also continued numbness. After risks, benefits, and complications were reviewed, the appropriate consent was obtained. The patient did want to proceed with surgery. Also of note, she did have some scarring around the elbow and some contracture as well. DESCRIPTION OF PROCEDURE The patient was taken back to the operative suite, placed supine on a well-padded table, and placed under anesthesia without complication. A well-padded tourniquet was placed on left upper arm. The extremity was sterilely prepped and draped in normal fashion. Esmarch bandage was taken to exsanguinate the extremity. Tourniquet was inflated to 250 mmHg. I made a medial incision just anterior to her posterior incision. Because she had issues healing that, I wanted to stay as far away as I could. I tried to keep least a 7 cm bridge. The skin was incised with a scalpel. A blunt retractor was placed when hemostasis was obtained with the Bovie. Dissection was taken down with tenotomy scissors. Hemostasis also obtained with the bipolar. I was able to find the nerve anteriorly scarred in over the epicondyle. This was very scarred in. I meticulously dissected this out, it took quite a bit of time proximal and distal. I released it all the way proximal until it dives into the muscle of the triceps and all distal to the 1st motor branch. A vessel loop was used to identify the nerve. I did not pull on this. Multiple adhesions were released. Her joint appeared scarred as well. I released some of the soft tissue, bone, and capsule and then manipulated her elbow to get her to full extension full flexion, pronation, and supination. There was excision of some of the bone, soft tissue, and capsule with releases. Next, the ulnar nerve was transposed anteriorly. I made a fasciocutaneous flap anterior to the epicondyle. I peeled this back. I transposed the nerve and fastened this to the fascia anteriorly so it would not tether. This was done with #1 Vicryl. The elbow was taken through a range of motion. The nerve was very free and stable anteriorly. The nerve again was intact and looked viable. Proximal and distal it was very scarred in anteriorly when I approached it. There was minimal bleeding. Irrigation was used to irrigate off the nerve. The skin was approximated with 2-0 Vicryl, followed by nylon on the skin. Local anesthetic was injected. Pressure dressing was applied. Arm was placed in a splint. Tourniquet was released. The patient was awoken from anesthesia without complication and transferred to the postanesthesia care unit in stable condition. I did utilize my physician wet process miller head assistant, Rochelle Salmeron, and my nurse practitioner Peggy Moses throughout the case. They were an integral part of the case, helped position the patient, assist throughout the case as well as closure of the wound, and helped transfer the patient to the postanesthesia care. PROGNOSIS Patient prognosis is guarded. Her nerve was intact and had ton of scar tissue around it. I did get a good release and transposition. I also released her capsule and got her to full range of motion. Hopefully, her nerve will recover, but again, I told her this is mainly so she would not progress and lose more function of her hand. We will monitor this over the next several months, but again it is encouraging that the nerve was intact and hopefully will recover over the next year. AYDE ALMANZAR DO D 04/08/2020 13:56 [id number] T 04/08/2020 14:38 TJK/MODL Brief Post Operative Note Patient Name: Elsa Catalan : 1960 (59 y.o.) Date of Service: 04/08/2020 [facility]: [id number] Procedure(s): LEFT ELBOW ULNAR NERVE RELEASE WITH ANTERIOR TRANSPOSITION, TENDON LENGTHENING, CAPSULAR RELEASE WITH MANIPULATION UNDER ANESTHESIA Pre-Operative Diagnoses: * G56.22 Post-Operative Diagnoses: Surgeon(s) and Role: * Ayde Almanzar DO - Primary Anesthesiologist: Hiram Lucas MD PLATEN PRESS FEEDER: Stewart Mckeon CRNA Network Professional: Spring Odonnell RN Physician Patient Care Assistant: Rochelle Salmeron PA-C Network Professional Relief: Miranda Randall RN Scrub Person: Cezar LizamaST Jacquelyn Network Professional Orientee: Sherrill Santamaria RN Nurse Float: Suri Mix RN Operative findings: see report Intra and immediate post-operative complications: none Type of anesthesia used: Regional, General Estimated blood loss: 10 mL Estimated urine output: Refer to surgical log Specimen(s): * No specimens in log * Implant(s): * No implants in log * Drain(s): * No LDAs found * Wound(s): Wound 09/04/19 Surgical Wound Arm Left (Active) Wound 10/08/19 2 Surgical Ulcer Elbow Left (Active) Wound 10/13/19 Surgical Wound Arm Left (Active) Wound 04/08/20 Surgical Wound Arm Left (Active) Ayde Almanzar DO 04/08/2020 1:53 PM documented in this encounter Patient Instructions for [facility]: Prior to surgery: ? Please be sure to wear loose, comfortable clothing and non-skid shoes ? Bring your health insurance information and a photo ID, as well as your Living Will or Durable Power of Nurse Ldr for Healthcare if it is available to you. ? Bring your cane/walker any applicable assistive device. If you currently use a CPAP, please bring this device with you on the day of surgery. ? Bring a list of your medications with the name of the medication, dose and how often you are taking it. Be sure to include herbal preparations and [id number] medications on this list. ? Do not have any solid food 8 hours prior to surgery/procedure. This includes food, gum, mints or hard candy. Carefully follow any instructions you were given by your Surgeon regarding further food restrictions. ? Do not drink any alcoholic beverages, smoke or chew tobacco during the 24 hours prior to your surgery/procedure. ? Drink plenty of fluids the day prior to your procedure to maintain hydration. You may drink clear liquids up to 2 hours prior to surgery time (unless otherwise instructed by your surgeon). This includes water, Gatorade and black coffee (no dairy or creamer products). ? On the morning of your surgery/procedure, you may brush your teeth but avoid swallowing water except for a sip with any recommended medications to be taken the morning of surgery. ? Bathe or shower the night before or early on the day of your surgery/procedure. Avoid the use of lotions, perfumes or powders. All nail uzbek is to be removed from fingernails and toenails. Instructed on CHG ? Please be sure to remove all jewelry and body piercings and leave all valuables at home. ? You will receive a phone call between 3:30 and 7:30 pm the business day before your procedure to verify the time you should arrive at the hospital. ? Eyeglasses, hearing aids or dentures may be worn to the hospital. Bring your storage container for these items as you will be asked to remove them prior to your surgery/procedure. Please do not wear any contact lenses the day of your surgery/procedure. ? Parking at [facility] is free. Please park in the lot in front of the main lobby. Enter the Main Entrance where a Information Security Consultant Liaison at the information desk will greet you and accompany you to the surgery waiting area. ? Children under the age of 16 are NOT permitted in the Pre/Post Operative areas. They are welcome to wait with a responsible adult in the surgery waiting area. After your surgery: ? If you are having an outpatient procedure and will be going home the same day, a responsible licensed adult must be available for transportation, and is expected to remain at the hospital for the duration of your surgery/procedure. You are NOT allowed to drive yourself home. documented in this encounter Gera York LSW - 02/28/2019 1:44 PM Sherrill Ahumada, OT - 02/28/2019 11:37 AM Rochelle Mack MD - 02/27/2019 1:29 PM Irma Jon, OT - 09/05/2019 9:59 AM EST Consult Notes (unrecognized section and content) Associated Order(s): IP CONSULT TO CARE MANAGEMENT COMPLEX DISCHARGE Date: 02/28/2019 Time: 1:44 PM Patient Name: Elsa Catalan Date of : 1960 Sex: Female GLORIA following for discharge needs. Patient current has no home health care or outpatient therapy needs at this time. Patient plans to return to her home at discharge with assistance from her family. No further services requested at this time. Discharge Plan Shared UM/CC and RN Living Arrangements: Spouse/significant other Support Systems: Spouse/significant other Functional Status: Independent Type of Residence: Private residence Prior to Admission Home Care Services: No [facility] Disposition D/C Disposition: Home Occupational Therapy OCCUPATIONAL THERAPY EVALUATION NOTE Skilled Therapy Needs After Discharge Anticipate Resolution of Current Assessment Limitations Including: Pain, Mechanical Barriers Are Skilled Therapy Services Needed After Discharge: No DME Recommendation: None Rehab Potential: Excellent Outcomes Measures Prior Function Daily Activity: Raw Score: 24 Prior Function Daily Activity % Impaired: 0% functionally impaired AM-PAC Daily Activity: Raw Score: 21 AM-PAC Daily Activity % Impaired: 32.79% functionally impaired Occupational Therapy Assessment The patient presents with musculoskeletal impairment(s) in right upper extremity which create performance deficits including range of motion and pain, -, and pain intolerance and knowledge deficit. These performance impairments limit participation in UE dressing in the chosen occupational roles of premorbid level individual, parent, spouse and employee. The patient's co morbidities do affect patient performance in the above activities and roles. The patient's home setup is a movie operator and family/caregiver support is a movie operator for return to prior level of function. The patient's education level is a movie operator, compliance is a movie operator and awareness of own capacity and performance is a movie operator to return to prior level of function. During the assessment, no modification of task was required and limited treatment options were identified in the plan of care. This consultation required brief review of the medical and therapy history. Activity Tolerance Activity Tolerance: Tolerates 30 min acitivty with multiple rests Therapy Precautions Orthotic Devices: Yes Upper Extremity: Hinged Elbow Brace Weight Bearing Status: X RUE: Non Wt bearing General Rehab Precautions: Fall risk(ROM to elbow/wrist/hand BID until follow up with Dr. Atkinson) Cognition Overall Cognitive Status: Within Functional Limits Arousal/Alertness: Appropriate responses to stimuli Orientation Level: Oriented X4 Executive functioning: WFL Safety Judgment: Good awareness of safety precautions Problem Solving: Able to problem solve independently Attention: Attends to distracted environment Hearing Status: WFL Social Interaction: WFL ADL/IADL Feeding: Independent UE Bathing : Stand by assistance Toileting : Independent Bed Mobility Rolling: Independent Supine to Sit: Independent Functional Transfers Sit to Stand: Independent Bed to Chair Transfers: Independent Home Living Type of Home: House Home Layout: Two level, 1/2 bath on main level, Bed/bath upstairs, Stairs to enter with rails(2 DEBORAH, railings on flight of stairs to upper level) Bathroom Shower/Tub: Tub/shower unit Bathroom Toilet: Standard Bathroom Accessibility: Accessible Prior Level of Function Level of [place]: Independent with ADLs and functional transfers, Independent with homemaking with ambulation Lives With: Spouse(adult daughter/son in law) Receives Help From: Family ADL Assistance: Independent Homemaking Assistance: Independent 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) Comments: Ambulates independently at baseline, performs exercises at home for RA Past Medical History: Diagnosis Date Asthma Chronic pain disorder Diabetes mellitus, type 2 (HCC) Fatty liver Fibromyalgia, primary GERD (gastroesophageal reflux disease) Headache Hypertension Hypothyroidism PONV (postoperative nausea and vomiting) Rheumatoid arthritis (HCC) TMJ (dislocation of temporomandibular joint) Past Surgical History: Procedure Laterality Date HYSTERECTOMY Still has ovaries JOINT REPLACEMENT Right knee THYROIDECTOMY OCCUPATIONAL THERAPY TREATMENT NOTE Total Treatment Time (Total Session Time): 40 Minutes Timed Code Treatment Minutes: 25 Minutes Cognitive Skills Development: Educated on non weight bearing status, verbalized and demonstrated understanding. Self-Care / Home Management ADL/IADL Skilled Intervention: Assist provided for don/doff of hinged elbow brace, verbalized and demonstrated understanding. Therapeutic Activities Functional Transfers: performing functional transfers without assist, instructed on support of R UE using L UE during mobility, verbalized understanding. Therapeutic Exercise Skilled Intervention: Instructed on ROM of elbow/wrist/hand actively per ortho protocol, provision of theraputty and foam for digit flexion/extension to minimize edema and promote functional use. Patient reporting biceps area pain with extension of elbow For complete objective data, detailed plan of care and patient education refer to: OT EVALUATION flow sheet, OT TREATMENT flow sheet, patient Plan of Care, Plan of Care progress note, and Patient Education. This note stands as the current Discharge Summary upon patient discharge from the hospital or completion of Occupational Therapy Plan of Care. Associated Order(s): IP CONSULT TO HOSPITALIST [facility] CONSULTATION NOTE Patient Name: Elsa Catalan : 1960 MR #: [id number] Admit Date: [id number] Physicians: Delroy Bianchi DO (Family); No ref. provider found (Referring) Elsa Catalan is a 58 y.o. female patient of Delroy Bianchi DO with history of diabetes, asthma and is S/P right total elbow arthroplasty Acute postop pain S/P right elbow arthroplasty 02/27 On gabapentin at home Benign HTN On toprol xl and lisinopril at home, resumed PRN labetalol and hydralazine ordered Rheumatoid arthritis On arava, sulfasalazine, methotrexate, prednisone at home, follows with rheum at [facility] Would recommend resuming all of these per 2017 ACR guidelines Diabetes type 2, controlled, with assisted insulin use On metformin and lantus at home, held while in hospital Resume lantus and start correctional humalog for now Hypothyroidism On levothyroxine at home, resumed Medication Reconciliation: Verified Quality Measures DVT Prophylaxis: per surgery Hickey Catheter: placed pre-op Disposition Discharge Location: from home, independent Estimated Discharge Date: per surgery Outpatient Testing: undetermined Chief Complaint [facility] consulted by Ayde Almanzar DO for diabetes History of Present Illness Pt has history of diabetes which is treated with lantus and metformin at home. She has a history of rheumatoid arthritis which is treated with multiple DMARDs at home. She also has a history of HTN which is treated with oral meds at home. She denies recent hypoglycemia, fevers, chest pain, N/V. Past Medical History Past Medical History: Diagnosis Date Asthma Chronic pain disorder Diabetes mellitus, type 2 (HCC) Fatty liver Fibromyalgia, primary GERD (gastroesophageal reflux disease) Headache Hypertension Hypothyroidism PONV (postoperative nausea and vomiting) Rheumatoid arthritis (HCC) TMJ (dislocation of temporomandibular joint) Past Surgical History Past Surgical History: Procedure Laterality Date HYSTERECTOMY Still has ovaries JOINT REPLACEMENT Right knee THYROIDECTOMY Family History History reviewed. No pertinent family history. Social History Social History Tobacco Use Smoking Status Never Smoker Smokeless Tobacco Never Used Social History Substance and Sexual Activity Alcohol Use Never Frequency: Never Social History Substance and Sexual Activity Drug Use Never Allergy Information I have reviewed the patient's allergies. Penicillins Home Medications Home medications were reviewed. Review Of Systems All systems have been reviewed and are negative except as noted in HPI or below Constitutional:No fever, no weight loss CV:No chest pain. No ankle swelling Resp:No dyspnea. No wheezing All other systems reviewed and negative other than HPI. Physical Examination BP (!) 180/98 (BP Location: Left arm, Patient Position: Sitting) Pulse 90 Temp (!) 96.1 F (35.6 C) (Axillary) Resp 14 Ht 5' 4 Wt 64.5 kg (142 lb 3.2 oz) SpO2 95% BMI 24.41 kg/m General Appearance: alert, well appearing, and in no acute distress. HEENT: Head- normocephalic; Throat- oropharynx normal, no stridor Cardiovascular: regular rate and rhythm; normal S1, S2; no murmurs, no peripheral edema. Respiratory: lungs clear to auscultation; without wheezes or accessory muscle use Abdomen: soft, non-tender, non-distended; positive bowel sounds Neurological: alert, oriented x 3, normal speech; no focal findings or movement disorder noted Musculoskeletal: right elbow immobilized Skin: normal coloration, no rashes Psych: normal mood and affect Laboratory and Additional Data Reviewed Laboratory 02/27/19 1:29 PM Medications 02/27/19 1:29 PM Transcriptions 02/27/19 1:29 PM documented in this encounter Occupational Therapy OCCUPATIONAL THERAPY EVALUATION NOTE Skilled Therapy Needs After Discharge Anticipate Resolution of Current Assessment Limitations Including: Mechanical Barriers, Pain Are Skilled Therapy Services Needed After Discharge: No DME Recommendation: None Rehab Potential: Good, For goals OT Caregiver Readiness Working toward discharge home: Yes OT Caregiver Training: Not required - Patient demonstrates safe technique for discharge Outcomes Measures Prior Function Daily Activity: Raw Score: 24 Prior Function Daily Activity % Impaired: 0% functionally impaired AM-PAC Daily Activity: Raw Score: 17 AM-PAC Daily Activity % Impaired: 50.11% functionally impaired Occupational Therapy Assessment The patient presents with musculoskeletal impairment(s) in generalized debility left upper extremity global systems which create performance deficits including range of motion, balance, activity tolerance and pain, insight and safety, and pain intolerance and knowledge deficit. These performance impairments limit participation in UE dressing, LE dressing, bathing, toileting and functional mobility in the chosen occupational roles of premorbid level individual. The patient's co morbidities do affect patient performance in the above activities and roles. The patient's home setup is a barrier and family/caregiver support is a movie operator for return to prior level of function. The patient's education level is a movie operator, compliance is a movie operator and awareness of own capacity and performance is a movie operator to return to prior level of function. During the assessment, minimal to moderate modification of task was required and several treatment options were identified in the plan of care. This consultation required expanded review of the medical and therapy history. Activity Tolerance Activity Tolerance: Endurance does not limit participation in activity Therapy Precautions Orthotic Devices: Yes Upper Extremity: Left, Hinged Elbow Brace Weight Bearing Status: X LUE: Non Wt bearing General Rehab Precautions: Fall risk Cognition Overall Cognitive Status: Within Functional Limits Arousal/Alertness: Appropriate responses to stimuli Orientation Level: Oriented X4 Executive functioning: WFL Safety Judgment: Good awareness of safety precautions Problem Solving: Able to problem solve independently Attention: Attends to distracted environment Social Interaction: WFL ADL/IADL Grooming : Min Toileting : Stand by assistance Bed Mobility Functional Transfers Sit to Stand: Contact guard Home Living Type of Home: House Home Layout: Two level, Bed/bath upstairs Bathroom Shower/Tub: Walk-in shower Bathroom Toilet: Standard Bathroom Accessibility: Accessible Home Equipment: Wheeled Walker, Cane Additional Comments: Pt does not use AD at baseline. Had R elbow done in January. 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) Past Medical History: Diagnosis Date Asthma exacerbated with anesthesia Cataract beginning Chronic pain disorder Diabetes mellitus, type 2 (HCC) Fatty liver Fibromyalgia, primary GERD (gastroesophageal reflux disease) Headache Hyperlipidemia Hypertension Hypothyroidism PONV (postoperative nausea and vomiting) Rheumatoid arthritis (HCC) Pepe Carter MD TMJ (dislocation of temporomandibular joint) Past Surgical History: Procedure Laterality Date ARTHROPLASTY ELBOW TOTAL Right 02/27/2019 Procedure: RIGHT TOTAL ELBOW ARTHROPLASTY, ULNAR NERVE RELEASE WITH ANTERIOR TRANSPOSITION, RADIAL HEAD EXCISION; Surgeon: Ayde Almanzar DO; Location: [facility] Main OR; Service: Orthopedic HYSTERECTOMY Still has ovaries JOINT REPLACEMENT Right knee THYROIDECTOMY OCCUPATIONAL THERAPY TREATMENT NOTE Total Treatment Time (Total Session Time): 24 Minutes Timed Code Treatment Minutes: 11 Minutes Cognitive Skills Development Self-Care / Home Management ADL/IADL Skilled Intervention: Reviewed proper technique to don UE clothing, pt verbalized understanding. Pt currently still numb on L UE, supporting L UE for comfort during ADL tasks by therapist. Therapeutic Activities Bed Mobility Functional Transfers Skilled Intervention: Pt independent with mobility within room, required CGA for L UE support during mobility for comfort due to numbness. Therapeutic Exercise Skilled Intervention: Reviewed HEP, Discussed AROM to fingers, wrist and shoulder only once nerve block wears off. Nonweightbearing to elbow, no AROM in elbow. Pt able to wiggle fingers only, reports L UE still numb from surgery. Neuromuscular Reeducation For complete objective data, detailed plan of care and patient education refer to: OT EVALUATION flow sheet, OT TREATMENT flow sheet, patient Plan of Care, Plan of Care progress note, and Patient Education. This note stands as the current Discharge Summary upon patient discharge from the hospital or completion of Occupational Therapy Plan of Care. Associated Order(s): IP CONSULT TO CARE MANAGEMENT COMPLEX DISCHARGE Date: 09/05/2019 Time: 8:58 AM Patient Name: Elsa Catalan Date of : 1960 Sex: Female GLORIA received consult for discharge planning needs. Therapy evaluation pending and GLORIA will follow up after recommendations are made. 11:25pm - Per chart review, therapy is making no recommendations for HME or therapies at discharge. No additional needs identified at this time. GLORIA will sign off. Discharge Plan Shared UM/CC and RN Living Arrangements: Spouse/significant other Support Systems: Spouse/significant other Functional Status: Independent Type of Residence: Private residence Prior to Admission Home Care Services: No Associated Order(s): IP CONSULT TO HOSPITALIST [facility] CONSULTATION NOTE Patient Name: Elsa Catalan : 1960 MR #: [id number] Admit Date: [id number] Physicians: Pretty Fermin MD (Family); No ref. provider found (Referring) Elsa Catalan is a 59 y.o. female patient of Pretty Fermin MD with history of HTN, RA, IDDM2, Fibromyalgia, HLD, Hypotyroidism presented with Left Elbow contracture and Left Elbow Total Arthoplasy with ulnar release per Dr. Almanzar Left Elbow Contracture S/P Left Elbow Total Arthoplasy with ulnar release per Dr. Almanzar DVT prophy, bowel regimen, PT/OT, pain management per primary HTN Stable Continued home Metoprolol Held home Irbersartan, Can start 12/5 PRN Hydralazine RA Controlled Methotrexate, Sulfasalazine, Leflunonide held per primary D/W primary team and RA on restarting meds upon discharge IDDM2 Started on I/2 dose Lantus d/t low BS, Will adjust as needed SSI, Accuchecks, Diabetic diet Mild Intermittent Asthma No exacerbation Continued home PRN Albuterol MDI Fibromyalgia Controlled Continued home Gabapentin HLD Continued home Zocor Hypothyroidism TSH pending Continued home Levothyroxine Medication Reconciliation: Verified Code Status: Full Code Quality Measures DVT Prophylaxis: SCD's per primary Hickey Catheter: absent Disposition Discharge Location: TBD per primary Estimated Discharge Date: TBD per primary Outpatient Testing: TBD per primary Chief Complaint [facility] consulted by Ayde Almanzar DO for medical management History of Present Illness Elas Catalan is a 59 y.o. female patient of Pretty Fermin MD with history of HTN, RA, IDDM2, Fibromyalgia, HLD, Hypotyroidism presented with Left Elbow contracture and Left Elbow Total Arthoplasy with ulnar release per Dr. Almanzar. Post op the patient is slightly drowsy but answers questions appropriately. Denies cp,sob,nausea, vomitng, fever, chills. Pain is controlled. Lungs CTA with no swelling to BLE. Encouraged IS/Ambulation Past Medical History Past Medical History: Diagnosis Date Asthma exacerbated with anesthesia Cataract beginning Chronic pain disorder Diabetes mellitus, type 2 (HCC) Fatty liver Fibromyalgia, primary GERD (gastroesophageal reflux disease) Headache Hyperlipidemia Hypertension Hypothyroidism PONV (postoperative nausea and vomiting) Rheumatoid arthritis (HCC) Pepe Carter MD TMJ (dislocation of temporomandibular joint) Past Surgical History Past Surgical History: Procedure Laterality Date ARTHROPLASTY ELBOW TOTAL Right 02/27/2019 Procedure: RIGHT TOTAL ELBOW ARTHROPLASTY, ULNAR NERVE RELEASE WITH ANTERIOR TRANSPOSITION, RADIAL HEAD EXCISION; Surgeon: Ayde Almanzar DO; Location: [facility] Main OR; Service: Orthopedic HYSTERECTOMY Still has ovaries JOINT REPLACEMENT Right knee THYROIDECTOMY Family History Family History Problem Relation Age of Onset Heart disease Mother Arthritis Father Asthma Father Diabetes Father Heart disease Father Social History Social History Tobacco Use Smoking Status Never Smoker Smokeless Tobacco Never Used Social History Substance and Sexual Activity Alcohol Use Never Frequency: Never Social History Substance and Sexual Activity Drug Use Never Allergy Information I have reviewed the patient's allergies. Lisinopril; Adhesive tape-silicones; and Penicillins Home Medications Home medications were reviewed. Review Of Systems All systems have been reviewed and are negative except as noted in HPI or below Physical Examination BP 139/82 Pulse 91 Temp 97.8 F (36.6 C) (Temporal) Resp (!) 11 Ht 5' 4 Wt 66.2 kg (145 lb 15.1 oz) SpO2 93% BMI 25.05 kg/m General Appearance: alert, well appearing, and in no acute distress HEENT: Head- normocephalic; Eyes- PERRLA, EOMI; Ears- external auditory canals clear, hearing intact; Nose- no nasal discharge; Throat- oropharynx normal Cardiovascular: regular rate and rhythm; normal S1, S2; no murmurs, rubs, clicks or gallops; no peripheral edema Respiratory: lungs clear to auscultation; without wheezes, rales or rhonchi Abdomen: soft, non-tender, non-distended; positive bowel sounds Neurological: alert, oriented x 3, normal speech; no focal findings or movement disorder noted Musculoskeletal: no significant deformity or tenderness to palpation Skin: Left arm D/D/I Psych: normal mood and affect Laboratory and Additional Data Reviewed Laboratory 09/04/19 5:44 PM Radiology 09/04/19 5:44 PM Cardiology 09/04/19 5:44 PM Medications 09/04/19 5:44 PM Transcriptions 09/04/19 5:44 PM Expected Discharge/Time Spent Based on current clinical information, the expected discharge date is: tomorrow (09/05/2019) Associated attestation - Luis F, Vitaly Foley MD - 09/05/2019 11:00 AM EST I personally saw and examined the patient independently. I reviewed the patient's chart and agree with history, exam, medical decision making and the assessment/plan except where indicated in my documentation below. 59 yo F w/ hx of HTN, RA, IDDM2, Fibormyalgia, HLD, Hypothyroidism presented with L elbow contracture and L elbow total arthoplasty with ulnar release by Dr. Almanzar. Fevers: Overnight events noted of Fever 102.9. Denies any urinary symptoms, URI symptoms, cough, abdominal pain. UA negative for infection. CXR w/o infiltrate. Fever decreased to 100.6 F. Likely post op fever due to atelectasis. Would not start abx at this point. Encouraged incentive spirometry. Hypokalemia Replaceddocumented in this encounter Associated Order(s): IP CONSULT TO CARE MANAGEMENT COMPLEX DISCHARGE Date: 10/14/2019 Time: 4:40 PM Patient Name: Elsa Catalan Date of : 1960 Sex: Female GLORIA continues to follow for discharge planning. Received notification from [facility] that wound vac has been approved. [facility] met with patient and spouse at bedside and [facility] Ready[facility]ac delivered to patient's room (serial number [id number]). Proof of delivery form faxed back to [facility]. GLORIA placed call to [facility] who reports they are unable to accept patient due to staffing. GLORIA placed call to [facility] ([phone]) and per intake they can not accept patient due to staffing. GLORIA placed call to [facility] ([phone], f [phone]) who reports they can accept patient. Referral faxed and Day of Discharge Bundle faxed to intake at [facility]. Notified patient and spouse. AVS and orders updated. Notified RN. Discharge Planning Living Arrangements: Spouse/significant other Support Systems: Spouse/significant other Assistance Needed: min Type of Residence: Private residence Prior to Admission Home Care Services: No Discharge Readiness Expected Discharge Date: 10/14/19 Barriers to Discharge: Pre-certification [facility] Disposition D/C Disposition: Home Health Care Services Related to Current Admission?: Yes Agency/Destination: Other([facility]) Home Care Needs : Home health care HME: Other (Comment)(wound vac) HME Agency: Other (Comment)([facility]) Transportation Type: Auto Physical Therapy Physical Therapy Screen Screened by PT. Upon review of the chart and discussion with occupational therapist, no skilled PT intervention is indicated. Pt is up in room ambulating independently without an AD. Order discontinued at this time. Occupational Therapy OCCUPATIONAL THERAPY EVALUATION NOTE and DISCHARGE Skilled Therapy Needs After Discharge Anticipate Resolution of Current Assessment Limitations Including: Mechanical Barriers Are Skilled Therapy Services Needed After Discharge: No DME Recommendation: None Rehab Potential: Excellent OT Caregiver Readiness Working toward discharge home: Yes OT Caregiver Training: Not required - Patient demonstrates safe technique for discharge Outcomes Measures Prior Function Daily Activity: Raw Score: 24 Prior Function Daily Activity % Impaired: 0% functionally impaired AM-PAC Daily Activity: Raw Score: 24 AM-PAC Daily Activity % Impaired: 0% functionally impaired Occupational Therapy Assessment The patient presents with musculoskeletal impairment(s) in left upper extremity which create performance deficits including range of motion and pain, -, and knowledge deficit. These performance impairments limit participation in - in the chosen occupational roles of premorbid level individual and spouse. The patient's co morbidities do not affect patient performance in the above activities and roles. The patient's home setup is a movie operator and family/caregiver support is a movie operator for return to prior level of function. The patient's education level is a movie operator, compliance is a movie operator and awareness of own capacity and performance is a movie operator to return to prior level of function. During the assessment, no modification of task was required and limited treatment options were identified in the plan of care. This consultation required brief review of the medical and therapy history. Activity Tolerance Activity Tolerance: Endurance does not limit participation in activity Therapy Precautions Orthotic Devices: No Weight Bearing Status: X LUE: Non Wt bearing General Rehab Precautions: Fall risk Cognition Overall Cognitive Status: Within Functional Limits Arousal/Alertness: Appropriate responses to stimuli Orientation Level: Oriented X4 Executive functioning: WFL Safety Judgment: Good awareness of safety precautions Problem Solving: Able to problem solve independently Attention: Attends to distracted environment Hearing Status: WFL Social Interaction: WFL, Appropriate, Cooperative ADL/IADL Feeding: Independent Grooming : Independent UE Dressing: Independent LE Dressing: Independent Toileting : Independent Bed Mobility Rolling: Independent Supine to Sit: Independent Sit to Supine: Independent Functional Transfers Sit to Stand: Independent Toilet Transfers: Independent Home Living Type of Home: House Home Layout: Two level, Stairs to enter with rails, Bed/bath upstairs(3 DEBORAH) Bathroom Shower/Tub: Tub/shower unit Bathroom Toilet: Standard Bathroom Equipment: Shower chair, Hand-held shower Bathroom Accessibility: Accessible Prior Level of Function Level of [place]: Independent with ADLs and functional transfers, Independent with homemaking with ambulation Lives With: Spouse(brother) Receives Help From: Family ADL Assistance: Independent Homemaking Assistance: Independent Vocational: On disability Comments: + driving, ambulates independently Past Medical History: Diagnosis Date Asthma exacerbated with anesthesia Cataract beginning Chronic pain disorder Diabetes mellitus, type 2 (HCC) Fatty liver Fibromyalgia, primary GERD (gastroesophageal reflux disease) Headache Hyperlipidemia Hypertension Hypothyroidism PONV (postoperative nausea and vomiting) Rheumatoid arthritis (HCC) Pepe Carter MD TMJ (dislocation of temporomandibular joint) Past Surgical History: Procedure Laterality Date ARTHROPLASTY ELBOW TOTAL Right 02/27/2019 Procedure: RIGHT TOTAL ELBOW ARTHROPLASTY, ULNAR NERVE RELEASE WITH ANTERIOR TRANSPOSITION, RADIAL HEAD EXCISION; Surgeon: Ayde Almanzar DO; Location: [facility] Main OR; Service: Orthopedic ARTHROPLASTY ELBOW TOTAL Left 09/04/2019 Procedure: LEFT TOTAL ELBOW ARTHROPLASTY WITH ULNAR NERVE RELEASE WITH ANTERIOR TRANSPOSITION, EXCISION RADIAL HEAD; Surgeon: Ayde Almanzar DO; Location: [facility] Main OR; Service: Orthopedic HYSTERECTOMY Still has ovaries INCISION AND DRAINAGE UPPER EXTREMITY Left 10/13/2019 Procedure: INCISION AND DRAINAGE LEFT ELBOW WITH WOUND VAC APPLICATION; Surgeon: Ayde Almanzar DO; Location: [facility] Main OR; Service: Ortho-Robotics JOINT REPLACEMENT Right knee THYROIDECTOMY OCCUPATIONAL THERAPY TREATMENT NOTE Total Treatment Time (Total Session Time): 25 Minutes Timed Code Treatment Minutes: 10 Minutes ADL: Reviewed one handed dressing techniques for UB, verbalized Understanding. Performed toileting routine independently. Therapeutic Exercise Skilled Intervention: Instruction provided for order to not remove splint thus no ROM to elbow, educated on continuing ROM exercises for shoulder and digits, not able to utilize wrist at this time. Patient instructed on hand exercises including digit flex/ext, tendon gliding. Patient returned demonstration. For complete objective data, detailed plan of care and patient education refer to: OT EVALUATION flow sheet, OT TREATMENT flow sheet, patient Plan of Care, Plan of Care progress note, and Patient Education. This note stands as the current Discharge Summary upon patient discharge from the hospital or completion of Occupational Therapy Plan of Care. Pt awake and alert sitting up in bed with L arm elevated. Wound vac appears to be functioning properly at this time. No air leak noted and hugo wrap in place. Wound vac therapy running at 125 mmhg continuous suction. VAC therapy education discussed with all questions answered and support given. Awaiting home vac approval at this time. Nursing to notify wound care if need should arise. Associated Order(s): IP CONSULT TO CARE MANAGEMENT COMPLEX DISCHARGE Date: 10/12/2019 Time: 7:04 PM Patient Name: Elsa Catalan Date of : 1960 Sex: Female NATHALIA received c/s earlier today from [facility] sharing that pt would be admitted from ED with plan for OR tomorrow at 9am for L elbow I&D and wound VAC placement. Per Ortho-Surg, they wanted to know if NATHALIA would be able to arrange vac tomorrow for d/c on Monday after d/c. SW indicated she would need to await surgery tomorrow with documented description of wound to support insurance approval for vac and that [facility] would have to verify benefits/coverage with pt's insurance on Monday. SW will f/u with pt after OR when able. Discharge Planning Living Arrangements: Spouse/significant other Support Systems: Spouse/significant other Assistance Needed: min Type of Residence: Private residence Prior to Admission Home Care Services: No Discharge Readiness Expected Discharge Date: 10/14/19 Barriers to Discharge: Pre-certification [facility] Disposition D/C Disposition: Home Health Care Services Related to Current Admission?: Yes Agency/Destination: Other(TBD) CONSULT NOTE Patient Name: Elsa Catalan Admit Date: MR #: [id number] : 1960 Physicians: Pretty Fermin MD (Family); No ref. provider found (referring) Hospital Course: No notes on file Assessment and Plan: Left Elbow wound necrosis, delayed healing after TEA / RA -NPO after MN -To OR tomorrow at 9am for L elbow I&D w/ wound VAC -Thank you for consult Assessment Detail: Based on current clinical information, the expected discharge date is: day after tomorrow (10/14/2019) Chief Complaint/Reason for Visit: Left elbow pain History of Present Illness: Elsa Catalan is a 59 y.o. y/o female presenting from home with c/o Left elbow pain. Left TEA 09/04/19. Had wound issues posterior with hematoma and skin necrosis. Wound care at [facility] not improving. Started having n/t ulnar nerve from irritation. Admitted by [facility]. Patient has RA on meds. History: Past Medical History: Diagnosis Date Asthma exacerbated with anesthesia Cataract beginning Chronic pain disorder Diabetes mellitus, type 2 (HCC) Fatty liver Fibromyalgia, primary GERD (gastroesophageal reflux disease) Headache Hyperlipidemia Hypertension Hypothyroidism PONV (postoperative nausea and vomiting) Rheumatoid arthritis (HCC) Pepe Carter MD TMJ (dislocation of temporomandibular joint) Past Surgical History: Procedure Laterality Date ARTHROPLASTY ELBOW TOTAL Right 02/27/2019 Procedure: RIGHT TOTAL ELBOW ARTHROPLASTY, ULNAR NERVE RELEASE WITH ANTERIOR TRANSPOSITION, RADIAL HEAD EXCISION; Surgeon: Ayde Almanzar DO; Location: [facility] Main OR; Service: Orthopedic ARTHROPLASTY ELBOW TOTAL Left 09/04/2019 Procedure: LEFT TOTAL ELBOW ARTHROPLASTY WITH ULNAR NERVE RELEASE WITH ANTERIOR TRANSPOSITION, EXCISION RADIAL HEAD; Surgeon: Ayde Almanzar DO; Location: [facility] Main OR; Service: Orthopedic HYSTERECTOMY Still has ovaries JOINT REPLACEMENT Right knee THYROIDECTOMY Family History Problem Relation Age of Onset Heart disease Mother Arthritis Father Asthma Father Diabetes Father Heart disease Father Social History Socioeconomic History Marital status: Spouse name: Not on file Number of children: Not on file Years of education: Not on file Highest education level: Not on file Occupational History Not on file Social Needs Financial resource strain: Not on file Food insecurity Worry: Not on file Inability: Not on file Transportation needs Medical: Not on file Non-medical: Not on file Tobacco Use Smoking status: Never Smoker Smokeless tobacco: Never Used Substance and Sexual Activity Alcohol use: Never Frequency: Never Drug use: Never Sexual activity: Not on file Lifestyle Physical activity Days per week: Not on file Minutes per session: Not on file Stress: Not on file Relationships Social connections Talks on phone: Not on file Gets together: Not on file Attends samaritan service: Not on file Active member of club or organization: Not on file Attends meetings of clubs or organizations: Not on file Relationship status: Not on file Other Topics Concern Not on file Social History Narrative Not on file Allergy Information: I have reviewed the patient's allergies. Ciprofloxacin; Lisinopril; Adhesive tape-silicones; and Penicillins Home Medications: Outpatient Medications as of 10/12/2019 Medication Sig acetic acid 0.25 % irrigation Apply topically 3 (three) times a day for 21 days . adalimumab (HUMIRA) 40 mg/0.8 mL syringe Inject 0.8 mL (40 mg total) under the skin every 14 (fourteen) days . Reasons: rheumatoid arthritis. cholecalciferol, vitamin D3, (VITAMIN D3 ORAL) Take 1 capsule by mouth every morning Reasons: Supp. empagliflozin (Jardiance) 10 mg Tab Take 10 mg by mouth every morning Reasons: type 2 diabetes mellitus. folic acid (FOLVITE) 1 MG tablet Take 2 mg by mouth every morning Reasons: Supp. gabapentin (NEURONTIN) 300 MG capsule Take 900 mg by mouth 3 (three) times a day Reasons: Pain. insulin aspart U-100 (NovoLOG) 100 unit/mL injection Inject under the skin 3 (three) times a day before meals Reasons: type 2 diabetes mellitus, Sliding scale. irbesartan (AVAPRO) 150 MG tablet Take 150 mg by mouth every morning Reasons: high blood pressure. LANTUS SOLOSTAR U-100 INSULIN 100 unit/mL (3 mL) InPn Inject 50 Units under the skin nightly Reasons: type 2 diabetes mellitus. leflunomide (ARAVA) 20 MG tablet Take 1 (one) tablet (20 mg total) by mouth every morning . Reasons: rheumatoid arthritis. methotrexate 25 mg/mL injection Inject 50 mg into the shoulder, thigh, or buttocks once a week Monday Reasons: rheumatoid arthritis. simvastatin (ZOCOR) 20 MG tablet Take 20 mg by mouth daily with lunch Reasons: excessive fat in the blood. sulfaSALAzine (AZULFIDINE) 500 mg tablet Take 1 (one) tablet (500 mg total) by mouth 3 (three) times a day . Reasons: rheumatoid arthritis. Synthroid 200 mcg tablet Take 200 mcg by mouth every morning Reasons: a condition with low thyroid hormone levels. TOPROL XL 25 mg 24 hr tablet Take 25 mg by mouth every morning Reasons: high blood pressure. Review of Systems: The following system(s) were reviewed and pertinent findings noted: Constitutional:No fever, no weight loss Eyes:No diplopia ENT:No sinus drainage CV:No chest pain. No ankle swelling Resp:No dyspnea. No wheezing GI:No abdominal pain.No abdominal distention :No dysuria Neuro:No headache Endo:No polyuria Psych:No unusual mood swings Physical Examination: Vital Signs: BP (!) 192/122 (BP Location: Right arm, Patient Position: Sitting) Pulse 80 Temp 97.8 F (36.6 C) (Oral) Resp 14 Ht 5' 4 Wt 64 kg (141 lb 1.5 oz) SpO2 96% BMI 24.22 kg/m General: Alert, cooperative, no distress, appears stated age Head: Normocephalic, without obvious abnormality, atraumatic Eyes: PERRL, conjunctiva/corneas clear, EOM's intact, fundi benign both eyes Throat: Lips, mucosa, and tongue normal; teeth and gums normal Neck: Supple, symmetrical, trachea midline, no adenopathy; thyroid: no enlargement/tenderness/nodules; no carotid bruit or JVD Back: Symmetric, no curvature, ROM normal, no CVA tenderness Lungs: Clear to auscultation bilaterally, respirations unlabored,normal respiratory effort Chest Wall: No tenderness or deformity Cardiovascular: Regular rate and rhythm, S1 and S2 normal, no murmur, rub or gallop; Pulses 2+ and symmetric all extremities Abdomen: Soft, non-tender, bowel sounds active all four quadrants,no masses, no organomegaly Extremities: Pain w/ ROM L elbow. Dec sens ulnar nerve, motor intact Skin: Skin necrosis post L elbow, + erythema Musculoskeletal: Dec ROM L elbow Neurologic: CNII-XII intact; normal strength, sensation and reflexes throughout Psych: Mood and affect appropriate Laboratory and Additional Data Reviewed: Laboratory 10/12/19 6:28 PM documented in this encounter Radha Mishra RN - 10/13/2019 10:52 AM EST Nursing Notes (unrecognized section and content) Dr. Alvarez notified, glucose 90 @o817, no need to recheck, ok to d/c to floor. B/p 188/87, admin. Labetalol as ordered. documented in this encounter Stephanie Serrato RN - 10/12/2019 2:33 PM ESTAxline, TRAVON Ramsey - 10/12/2019 2:00 PM Ted Turpin MD - 10/12/2019 1:32 PM ESTAxline, TRAVON Ramsey - 10/12/2019 1:10 PM EST ED Notes (unrecognized secti on and content) technical training coordinator notified Wet to dry dressing applied to right elbow, per Dr. Delvalle. [facility] NAME: Elsa Catalan Age: 59 y.o. CSN: [id number] PCP: Pretty Fermin MD Chief Complaint: Post-op Problem HPI The story is obtained from the patient, her old records are reviewed. This 59-year-old female has a known history of rheumatoid arthritis. She had a left elbow replacement in the beginning of September. She subsequently developed a hematoma and problems with wound healing. She also has developed discomfort in her forearm and the ulnar nerve distribution. She has been followed in wound clinic. She saw her surgeon on and because the area was not healing and she was in a lot of pain she was advised to come here. Percocet does not help the discomfort. X-rays of the joint were done in the orthopedic office. Past Medical History: Diagnosis Date Asthma exacerbated with anesthesia Cataract beginning Chronic pain disorder Diabetes mellitus, type 2 (HCC) Fatty liver Fibromyalgia, primary GERD (gastroesophageal reflux disease) Headache Hyperlipidemia Hypertension Hypothyroidism PONV (postoperative nausea and vomiting) Rheumatoid arthritis (HCC) Pepe Carter MD TMJ (dislocation of temporomandibular joint) Past Surgical History: Procedure Laterality Date ARTHROPLASTY ELBOW TOTAL Right 02/27/2019 Procedure: RIGHT TOTAL ELBOW ARTHROPLASTY, ULNAR NERVE RELEASE WITH ANTERIOR TRANSPOSITION, RADIAL HEAD EXCISION; Surgeon: Ayde Almanzar DO; Location: [facility] Main OR; Service: Orthopedic ARTHROPLASTY ELBOW TOTAL Left 09/04/2019 Procedure: LEFT TOTAL ELBOW ARTHROPLASTY WITH ULNAR NERVE RELEASE WITH ANTERIOR TRANSPOSITION, EXCISION RADIAL HEAD; Surgeon: Ayde Almanzar DO; Location: [facility] Main OR; Service: Orthopedic HYSTERECTOMY Still has ovaries JOINT REPLACEMENT Right knee THYROIDECTOMY Family History Problem Relation Age of Onset Heart disease Mother Arthritis Father Asthma Father Diabetes Father Heart disease Father Social History Socioeconomic History Marital status: Spouse name: Not on file Number of children: Not on file Years of education: Not on file Highest education level: Not on file Occupational History Not on file Social Needs Financial resource strain: Not on file Food insecurity Worry: Not on file Inability: Not on file Transportation needs Medical: Not on file Non-medical: Not on file Tobacco Use Smoking status: Never Smoker Smokeless tobacco: Never Used Substance and Sexual Activity Alcohol use: Never Frequency: Never Drug use: Never Sexual activity: Not on file Lifestyle Physical activity Days per week: Not on file Minutes per session: Not on file Stress: Not on file Relationships Social connections Talks on phone: Not on file Gets together: Not on file Attends samaritan service: Not on file Active member of club or organization: Not on file Attends meetings of clubs or organizations: Not on file Relationship status: Not on file Other Topics Concern Not on file Social History Narrative Not on file Previous Medications Medication Sig acetic acid 0.25 % irrigation Apply topically 3 (three) times a day for 21 days . adalimumab (HUMIRA) 40 mg/0.8 mL syringe Inject 0.8 mL (40 mg total) under the skin every 14 (fourteen) days . Reasons: rheumatoid arthritis. cholecalciferol, vitamin D3, (VITAMIN D3 ORAL) Take by mouth every morning Reasons: Supp. empagliflozin (Jardiance) 10 mg Tab Take 10 mg by mouth every morning Reasons: type 2 diabetes mellitus. folic acid (FOLVITE) 1 MG tablet Take 2 mg by mouth every morning Reasons: Supp. gabapentin (NEURONTIN) 300 MG capsule Take 300 mg by mouth 3 (three) times a day Reasons: Pain. insulin aspart U-100 (NovoLOG) 100 unit/mL injection Inject under the skin 3 (three) times a day before meals Reasons: type 2 diabetes mellitus, Sliding scale. irbesartan (AVAPRO) 150 MG tablet Take 150 mg by mouth every morning Reasons: high blood pressure. LANTUS SOLOSTAR U-100 INSULIN 100 unit/mL (3 mL) InPn 50 Units nightly Reasons: type 2 diabetes mellitus. leflunomide (ARAVA) 20 MG tablet Take 1 (one) tablet (20 mg total) by mouth every morning . Reasons: rheumatoid arthritis. methotrexate 25 mg/mL injection 2 mL (50 mg total) once a week . Reasons: rheumatoid arthritis, Monday. simvastatin (ZOCOR) 20 MG tablet Take 20 mg by mouth daily with lunch Reasons: excessive fat in the blood. sulfaSALAzine (AZULFIDINE) 500 mg tablet Take 1 (one) tablet (500 mg total) by mouth 3 (three) times a day . Reasons: rheumatoid arthritis. SYNTHROID 175 mcg tablet Take 200 mcg by mouth every morning Reasons: a condition with low thyroid hormone levels. TOPROL XL 25 mg 24 hr tablet Take 25 mg by mouth every morning Reasons: high blood pressure. Allergies Allergen Reactions Ciprofloxacin Rash Lisinopril Other (See Comments) Cough Adhesive Tape-Silicones Rash Penicillins Rash Review of Systems Constitutional: Negative. Negative for fever. HENT: Negative. Eyes: Negative. Respiratory: Negative. Cardiovascular: Negative. Gastrointestinal: Negative. Genitourinary: Negative. Musculoskeletal: Positive for arthralgias and joint swelling. Skin: Negative. Neurological: Negative. Psychiatric/Behavioral: Negative for confusion. Patient Vitals for the past 24 hrs: BP Temp Temp src Pulse Resp SpO2 Height Weight 10/12/19 1400 144/76 82 97 % 10/12/19 1249 (!) 166/104 97.9 F (36.6 C) Oral 87 16 98 % 5' 4 64 kg (141 lb 1.5 oz) Physical Exam Vitals signs and nursing note reviewed. Constitutional: General: She is in acute distress. Appearance: She is normal weight. She is not ill-appearing, toxic-appearing or diaphoretic. HENT: Head: Normocephalic. Nose: Nose normal. Eyes: Conjunctiva/sclera: Conjunctivae normal. Cardiovascular: Rate and Rhythm: Normal rate. Heart sounds: No murmur. Pulmonary: Effort: Pulmonary effort is normal. No respiratory distress. Abdominal: Tenderness: There is no abdominal tenderness. Musculoskeletal: General: No swelling or deformity. Skin: General: Skin is warm. Comments: She has an open wound over the left elbow area with full-thickness skin loss. The edges of the wound appear viable. There is no surrounding cellulitis Neurological: Mental Status: She is alert. Mental status is at baseline. Psychiatric: Mood and Affect: Mood normal. Behavior: Behavior normal. Thought Content: Thought content normal. Laboratory & Radiographic Imaging (if done): Results for orders placed or performed during the hospital encounter of 10/12/19 Comprehensive Metabolic Panel Result Value Ref Range Sodium 139 135 - 145 mmol/L Potassium 3.7 3.5 - 5.1 mmol/L Chloride 97 (L) 98 - 108 mmol/L Bicarbonate 26 21 - 32 mmol/L Anion Gap 20 10 - 20 mmol/L Glucose 240 (H) 65 - 99 mg/dL BUN 14 8 - 25 mg/dL Creatinine 0.84 0.40 - 1.10 mg/dL eGFR 76 >=60 mL/min/1.73 m2 BUN/Creatinine Ratio 16.7 10.0 - 20.0 Total Protein 8.7 (H) 6.0 - 8.0 g/dL Albumin 3.8 3.2 - 5.2 g/dL Calcium 9.2 8.4 - 10.2 mg/dL Alkaline Phosphatase 90 40 - 150 U/L AST 19 0 - 45 U/L ALT 13 0 - 40 U/L Total Bilirubin 0.2 0.0 - 1.3 mg/dL PT/INR Result Value Ref Range Protime (PT) 12.7 11.8 - 14.3 seconds INR 1.0 0.8 - 1.1 CBC Auto Differential Result Value Ref Range WBC 8.09 4.50 - 11.00 K/mcL RBC 3.92 (L) 4.00 - 5.20 M/mcL Hemoglobin 11.7 (L) 12.0 - 16.0 g/dL Hematocrit 34.6 (L) 36.0 - 46.0 % MCV 88.3 80.0 - 100.0 fL MCH 29.8 26.0 - 34.0 pg MCHC 33.8 31.0 - 37.0 g/dL Platelets 378 150 - 400 K/mcL RDW - CV 13.9 11.6 - 14.8 % MPV 9.3 9.0 - 15.5 fL Neutrophils 48.9 % Lymphocytes 36.6 % Monocytes 8.9 % Eosinophils 4.4 % Basophils 1.1 % IG Percent 0.10 % Neutrophils Abs 3.95 1.70 - 7.00 K/mcL Lymphocytes Abs 2.96 0.90 - 4.00 K/mcL Monocytes Abs 0.72 0.30 - 0.90 K/mcL Eosinophils Abs 0.36 0.00 - 0.50 K/mcL Basophils Abs 0.09 0.00 - 0.30 K/mcL IG Absolute 0.01 0.00 - 0.30 K/mcL Nucleated RBC 0.0 % Nucleated RBC Abs 0.00 0.00 - 0.00 K/mcL No orders to display Procedures MDM As noted in the above picture, the wound has broken down and needs debrided. This will be done tomorrow by her surgeon, Dr. Ayde Almanzar. The patient is experiencing a significant amount of nerve pain in the forearm. Clinical Impression: 1. Complication of procedure, subsequent encounter 2. Acute neuritis Disposition: (Please note that portions of this note may have been completed with a voice recognition software. Efforts were made to correct any errors, but occasionally words are mis-transcribed.) Ted Delvalle MD 10/12/19 1425 Pt had her left elbow replaced, 09/04. About a week ago pt stated she had a burning sensation in her hand. Pt had a black scab on her elbow. Pt followed up with wound clinic, they removed the scab and saw soft tissue damage. Pt did have a hematoma at one time. Pt is going to have wound detriment tomorrow. Dr. Almanzar told to come to ED to be admitted prior to surgery. Pt stated pain is in her elbow. documented in this encounter Source Comments (unrecognize d section and content) In the event this informatio n is protected by the Federal Confidentiality of Alcohol and Drug Abuse Patient Records regulations: The Federal rules restrict any use of the information to criminally investigate or prosecute any alcohol or drug abuse patient.[facility] the event this information is protected by the Federal Confidentiality of Alcohol and Drug Abuse Patient Records regulations: The Federal rules restrict any use of the information to criminally investigate or prosecute any alcohol or drug abuse patient.[facility] Hospital[facility] the event this information is protected by the Federal Confidentiality of Alcohol and Drug Abuse Patient Records regulations: The Federal rules restrict any use of the information to criminally investigate or prosecute any alcohol or drug abuse patient.[facility] the event this information is protected by the Federal Confidentiality of Alcohol and Drug Abuse Patient Records regulations: The Federal rules restrict any use of the information to criminally investigate or prosecute any alcohol or drug abuse patient.[facility] HospitalIn the event this information is protected by the Federal Confidentiality of Alcohol and Drug Abuse Patient Records regulations: The Federal rules restrict any use of the information to criminally investigate or prosecute any alcohol or drug abuse patient.[facility] HospitalIn the event this information is protected by the Federal Confidentiality of Alcohol and Drug Abuse Patient Records regulations: The Federal rules restrict any use of the information to criminally investigate or prosecute any alcohol or drug abuse patient.[facility] HospitalIn the event this information is protected by the Federal Confidentiality of Alcohol and Drug Abuse Patient Records regulations: The Federal rules restrict any use of the information to criminally investigate or prosecute any alcohol or drug abuse patient.[facility] HospitalIn the event this information is protected by the Federal Confidentiality of Alcohol and Drug Abuse Patient Records regulations: The Federal rules restrict any use of the information to criminally investigate or prosecute any alcohol or drug abuse patient.[facility] HospitalIn the event this information is protected by the Federal Confidentiality of Alcohol and Drug Abuse Patient Records regulations: The Federal rules restrict any use of the information to criminally investigate or prosecute any alcohol or drug abuse patient.[facility] HospitalIn the event this information is protected by the Federal Confidentiality of Alcohol and Drug Abuse Patient Records regulations: The Federal rules restrict any use of the information to criminally investigate or prosecute any alcohol or drug abuse patient.[facility] HospitalIn the event this information is protected by the Federal Confidentiality of Alcohol and Drug Abuse Patient Records regulations: The Federal rules restrict any use of the information to criminally investigate or prosecute any alcohol or drug abuse patient.[facility] HospitalIn the event this information is protected by the Federal Confidentiality of Alcohol and Drug Abuse Patient Records regulations: The Federal rules restrict any use of the information to criminally investigate or prosecute any alcohol or drug abuse patient.[facility] Teams (unrecognized sec tion and content) Metrology Technician Relationship Specialty Start Date End Date Prtety Fermin MD [address] [id number] PCP - General Family Practice 01/25/21 Metrology Technician Relationship Specialty Start Date End Date Pretty Fermin MD [address] [id number] PCP - General Family Practice 01/25/21 Metrology Technician Relationship Specialty Start Date End Date Pretty Fermin MD [address] [id number] PCP - General Family Practice 01/25/21 Metrology Technician Relationship Specialty Start Date End Date Pretty Fermin MD [address] [place] [address] PCP - General Family Medicine 01/25/21 Metrology Technician Relationship Specialty Start Date End Date Pretty Fermin MD [address] [id number] PCP - General Family Medicine 01/25/21 Metrology Technician Relationship Specialty Start Date End Date Pretty Fermin MD [address] [facility] PCP - General Family Medicine 01/25/21 Metrology Technician Relationship Specialty Start Date End Date Pretty Fermin MD [address] [id number] PCP - General Family Medicine 01/25/21 Metrology Technician Relationship Specialty Start Date End Date Pretty Fermin MD [address] [place] [address] PCP - General Family Medicine 01/25/21 Metrology Technician Relationship Specialty Start Date End Date Pretty Fermin MD PCP - General Family Medicine 01/25/21 Metrology Technician Relationship Specialty Start Date End Date Pretty Fermin MD PCP - General Family Medicine 01/25/21 Metrology Technician Relationship Specialty Start Date End Date Pretty Fermin MD PCP - General Family Medicine 01/25/21 Metrology Technician Relationship Specialty Start Date End Date Pretty Fermin MD PCP - General Family Medicine 01/25/21 FOR RECORDS PERTAINING TO PATIENTS WHO ARE OR HAVE BEEN ENROLLED IN A CHEMICAL DEPENDENCY/SUBSTANCEABUSE PROGRAM, SOME INFORMATION MAY BE OMITTED. This clinical summary was aggregated from multiple sources. Caution should be exercised in using it in the provision of clinical care. This summary normalizes information from multiple sources, and as a consequence, information in this document may materially change the coding, format and clinical context of patient data. In addition, data may be omitted in some cases. CLINICAL DECISIONS SHOULD BE BASED ON THE PRIMARY CLINICAL RECORDS. [facility] [employer] [facility]. provides no warranty or guarantee of the accuracy or completeness of information in this document.
== END 2023-12-20 09:50 | disposition home or self-care (01) ==
LOC: MAMMO 09:49
PROVIDERS: PCP Nurse Practitioner Family; Visit Provider Nurse Practitioner Family
DX: Z12.31 Encounter for screening mammogram for malignant neoplasm of breast (principal)
CPT/HCPCS: 77063; 77067

== ENCOUNTER 2024-04-15 11:27 | Outpatient (OUT) | payer MEDICARE, SELFPAY ==
--- NOTE | 2024-04-15 11:42 | XR_ITS ---
[address] [address] Patient Name: ELSA CATALAN MRN: [id number] date: 1960 Sex: F Assigned Patient Location: LAB Current Patient Location: Accession/Order Number: [id number] Exam Date: 04/15/2024 11:50 Report Date: 04/16/2024 11:50 At the request of: TAWANDA COOK Procedure: XR abdomen 1V EXAMINATION: XR abdomen 1V HISTORY: Abdominal Discomfort R10.9 COMPARISON: No relevant comparison available. FINDINGS: BOWEL GAS PATTERN: No abnormal dilation or deviation. CALCIFICATIONS: None significant. OTHER: Moderate degenerative changes of the hips and spine. Vascular calcifications XR/XR abdomen 1V IMPRESSION: Nonobstructive bowel gas pattern Electronically authenticated by: LATASHA GERARDO Date: 04/16/2024 11:50
[2024-04-15 11:58] LABS: Bilirubin Urine NEGATIVE (NEGATIVE); Blood Urine NEGATIVE (NEGATIVE); Clarity Urine CLEAR (CLEAR); Color Urine LT. YELLOW (YELLOW); Glucose Urine UA >=1000 mg/dL (NEGATIVE); Ketones Urine NEGATIVE (NEGATIVE); Leukocyte Esterase Urine NEGATIVE (NEGATIVE); Nitrite Urine NEGATIVE (NEGATIVE); Protein Urine NEGATIVE (NEG/TRACE); Specific Gravity Urine <=1.005 (1.005-1.025); Urobilinogen Urine 0.2 EU/dL (0.2-1.0); pH Urine 6.5 (5.0-9.0)
[2024-04-15 12:20] LABS: Bacteria Urine TRACE #/HPF (NONE SEEN); RBC Urine 0-2 #/HPF (0-2); WBC Urine 0-2 #/HPF (NONE SEEN)
[2024-04-15 12:21] LABS: Cast Seen? NONE SEEN #/LPF (NONE SEEN); Crystals Seen? None Seen #/HPF (None Seen); Mucus Urine NONE SEEN (NONE SEEN); Squamous Epithelial Cell Urine FEW #/LPF (NONE/RARE); Urine Culture Indicated NO
== END 2024-04-15 11:28 | disposition home or self-care (01) ==
LOC: LAB 11:30
PROVIDERS: PCP Nurse Practitioner Family; Visit Provider Nurse Practitioner Family
DX: R10.9 Unspecified abdominal pain (principal)
CPT/HCPCS: 36415; 74018; 81001; 87086; 87150; 87186

== ENCOUNTER 2024-04-19 11:19 | Emergency (ER) | payer MEDICARE, SELFPAY ==
[2024-04-19 11:24] VITALS: BP 147/75; PULSE 108; TEMP 36.6; O2SAT 97; BMI 25.7
[2024-04-19 12:23] LABS: Basophils Absolute Auto 0.1 10^3/uL (0.0-0.1); Basophils Percent Auto 0.8 % (0.2-2.0); Eosinophils Absolute Auto 0.2 10^3/uL (0.0-0.7); Eosinophils Percent Auto 2.1 % (0.9-7.0); Immature Granulocytes Abs Auto 0.02 10^3/uL (0.00-0.03); Immature Granulocytes Pct Auto 0.2 % (0.0-0.5); Lymphocytes Absolute Auto 3.5 10^3/uL (1.2-3.8); Lymphocytes Percent Auto 41.8 % (20.5-60.0); Mean Corpuscular HGB Conc 33.3 g/dL (29.9-35.2); Mean Corpuscular Volume 90.1 fL (81.0-99.0); Monocytes Absolute Auto 0.8 10^3/uL (0.3-0.8); Monocytes Percent Auto 9.7 % (1.7-12.0); Neutrophils Absolute Auto 3.8 10^3/uL (1.4-6.5); Neutrophils Percent Auto 45.4 % (43.0-75.0); Platelet Count 311 10^3/uL (150-450); Red Blood Count 4.66 10^6/uL (4.20-5.40); Red Cell Distribution Width 12.8 % (11.0-15.0); White Blood Count 8.3 10^3/uL (4.0-11.0)
[2024-04-19 12:24] LABS: Bilirubin Urine NEGATIVE (NEGATIVE); Blood Urine NEGATIVE (NEGATIVE); Clarity Urine CLEAR (CLEAR); Color Urine LT. YELLOW (YELLOW); Glucose Urine UA >=1000 mg/dL (NEGATIVE); Ketones Urine NEGATIVE (NEGATIVE); Leukocyte Esterase Urine NEGATIVE (NEGATIVE); Nitrite Urine NEGATIVE (NEGATIVE); Protein Urine NEGATIVE (NEG/TRACE); Urobilinogen Urine 0.2 EU/dL (0.2-1.0)
[2024-04-19] MEDS: 0.9 % SODIUM CHLORIDE 1,000 ML 100 ML IV (12:34)
--- NOTE | 2024-04-19 12:37 | ED_ITS ---
HPI - Abdominal Pain General Chief Complaint: Abdominal Pain Stated Complaint: ABDOMINAL PAIN/BACK PAIN Time Seen by Provider: 04/19/24 12:37 Source: patient Mode of arrival: walk-in Limitations: no limitations History of Present Illness HPI narrative: 63 year old presents with chief complaint of continued back pain. Currently taking cefdinir for uti. states abdominal pain has improved but continues to have low back pain. denies nausea or vomiting today. states has muscle tenderness bilaterally. she denies known injury or trauma. pt states she has been laying around more than usual due to recent illness and uti. she denies numbness, tingling, loss of bowel or bladder function Related Data Allergies Allergy/AdvReac Type Severity Reaction Status Date / Time Penicillins AdvReac Intermediate Rash Verified 04/19/24 11:24 Review of Systems ROS Narrative REVIEW OF SYSTEMS: Unless otherwise stated in this report the patient's positive and negative responses for review of systems for constitutional, eyes, ENT, car diovascular, respiratory, gastrointestinal, neurological, , musculoskeletal, and integument systems and related systems to the presenting problem are either stated in the history of present illness or were not pertinent or were negative for the symptoms and/or complaints related to the presenting medical problem Exam Narrative Exam Narrative: Nurse's notes and vital signs reviewed. ?The patient is not hypoxic. General: ?Alert, no acute distress, patient resting comfortably ?Patient is not toxic or lethargic. Skin: ?warm, intact, no pallor noted Head: ?Normocephalic, atraumatic Eye: ?Normal conjunctiva Ears, Nose, Throat: ?Right tympanic membrane clear, left tympanic membrane jose luis r. ?No drainage or discharge noted. ?No pre or post auricular tenderness, erythema, or swelling noted. ?No rhinorrhea or congestion noted. ?Posterior oropharynx shows no erythema, tonsillar hypertrophy, exudate. ?the uvula is midline. ?no trismus or drooling is noted. Neck: ?No anterior/posterior lymphadenopathy noted. ?no erythema, no masses, no fluctuance or induration noted. ?No meningeal signs. Cardio: ?Regular Rate and Rhythm Respiratory: ?No acute distress, no rhonchi, wheezing or rales noted. ?No stridor or retractions are noted. Abdomen: ?Normal bowel sounds, soft, nontender, no masses detected. ?No rebound, guarding, or rigidity noted. Neurological: ?Appropriate for age Psychiatric: ?Cooperative? Constitutional Vital Signs, click to edit/add: Last Vital Signs Temp 97.8 F 04/19/24 11:24 Pulse 108 H 04/19/24 11:24 Resp 18 04/19/24 11:24 BP 147/75 H 04/19/24 11:24 Pulse Ox 97 04/19/24 11:24 O2 Del Method Room Air 04/19/24 11:24 Course Vital Signs Vital signs: Vital Signs Temperature 97.8 F 04/19/24 11:24 Pulse Rate 108 H 04/19/24 11:24 Respiratory Rate 18 04/19/24 11:24 Blood Pressure 147/75 H 04/19/24 11:24 Pulse Oximetry 97 04/19/24 11:24 Oxygen Delivery Method Room Air 04/19/24 11:24 Temperature 97.8 F 04/19/24 11:24 Pulse Rate 108 H 04/19/24 11:24 Respiratory Rate 18 04/19/24 11:24 Blood Pressure 147/75 H 04/19/24 11:24 Pulse Oximetry 97 04/19/24 11:24 Oxygen Delivery Method Room Air 04/19/24 11:24 MDM - Abdominal Pain Differential Diagnosis Differential diagnosis: Likely abdominal pain, calculus of kidney and other (uti) Medical Records Attestation: I reviewed the patient's medical records. Medical records narrative: 63 year old presents with chief complaint of continued back pain. Currently taking cefdinir for uti. states abdominal pain has improved but continues to have low back pain. denies nausea or vomiting today. states has muscle tenderness bilaterally. she denies known injury or trauma. pt states she has been laying around more than usual due to recent illness and uti. she denies numbness, tingling, loss of bowel or bladder function upon arrival to ed pt was given iv and fluids. pt feeling better. labs reviewed, within normal limits. urinalysis reviewed and improved. ua culture reviewed with pt today as well. culture was normal other than group b strep.. pt was medicated today with toradol iv, back pain subsided. pt comfortable going home. pt to follow up with primary care physician in the next week. Lab Data Attestation: I reviewed the patient's lab results. Labs: Lab Results 04/19/24 04/19/24 04/19/24 Range/Units 11:32 11:42 12:32 WBC 8.3 (4.0-11.0) 10^3/uL RBC 4.66 (4.20-5.40) 10^6/uL Hgb 14.0 (12.0-16.0) g/dL Hct 42.0 (36.0-48.0) % MCV 90.1 (81.0-99.0) fL MCH 30.0 (26.7-34.0) pg MCHC 33.3 (29.9-35.2) g/dL RDW 12.8 (11.0-15.0) % Plt Count 311 (150-450) 10^3/uL MPV 11.0 (9.5-13.5) fL Neut % (Auto) 45.4 (43.0-75.0) % Lymph % (Auto) 41.8 (20.5-60.0) % [place] % (Auto) 9.7 (1.7-12.0) % Eos % (Auto) 2.1 (0.9-7.0) % Baso % (Auto) 0.8 (0.2-2.0) % Neut # (Auto) 3.8 (1.4-6.5) 10^3/uL Lymph # (Auto) 3.5 (1.2-3.8) 10^3/uL [place] # (Auto) 0.8 (0.3-0.8) 10^3/uL Eos # (Auto) 0.2 (0.0-0.7) 10^3/uL Baso # (Auto) 0.1 (0.0-0.1) 10^3/uL Abs Immat Gran (auto) 0.02 (0.00-0.03) 10^3/uL Imm/Tot Granulo (auto) 0.2 (0.0-0.5) % Sodium 140 (136-145) mmol/L Potassium 3.7 (3.5-5.1) mmol/L Chloride 102 (98-107) mmol/L Carbon Dioxide 27.9 (21.0-32.0) mmol/L Anion Gap 13.8 BUN 20.0 H (7.0-18.0) mg/dL Creatinine 0.85 (0.55-1.02) mg/dL Est GFR ( Amer) >60 (>=60) Est GFR (Non-Af Amer) >60 (>=60) BUN/Creatinine Ratio 23.5 Glucose 243 H (74-106) mg/dL Lactate 2.0 (0.4-2.0) mmol/L Calcium 8.2 L (8.5-10.1) mg/dL Total Bilirubin 0.4 (0.2-1.0) mg/dL Direct Bilirubin 0.1 (0.0-0.2) mg/dL AST 27 (15-37) U/L ALT 42 (14-59) U/L Alkaline Phosphatase 79 (46-116) U/L Troponin I High Sens 9.6 (4.0-51.3) pg/mL Total Protein 8.1 (6.4-8.2) g/dL Albumin 3.5 (3.4-5.0) g/dL Globulin 4.6 g/dL Albumin/Globulin Ratio 0.8 Lipase 55.0 (16.0-77.0) U/L Urine Color Lt. yellow (YELLOW) Urine Clarity Clear (CLEAR) Urine pH 6.0 (5.0-9.0) Ur Specific Hyrum 1.010 (1.005-1.025) Urine Protein Negative (NEG/TRACE) mg/dL Urine Glucose (UA) >=1000 A (NEGATIVE) mg/dL Urine Ketones Negative (NEGATIVE) mg/dL Urine Occult Blood Negative (NEGATIVE) Urine Nitrite Negative (NEGATIVE) Urine Bilirubin Negative (NEGATIVE) Urine Urobilinogen 0.2 (0.2-1.0) EU/dL Ur Leukocyte Esterase Negative (NEGATIVE) Urine RBC 0-2 (0-2) #/HPF Urine WBC 0-2 A (NONE SEEN) #/HPF Ur Squamous Epith Cells Few A (NONE/RARE) #/LPF Urine Crystals None seen (None Seen) #/HPF Urine Bacteria Trace A (NONE SEEN) #/HPF Urine Casts None seen (NONE SEEN) #/LPF Urine Mucus None seen (NONE SEEN) Ur Culture Indicated? No Discharge Plan Discharge Stand Alone Forms: Portal Instructions Chief Complaint: Abdominal Pain Clinical Impression: Back pain Patient Disposition: Home, Self-Care Time of Disposition Decision: 14:08 Condition: Good Print Language: Maltese Instructions: Acute Low Back Pain (ED), Back Pain (ED) Referrals: TAWANDA COOK [Primary Care Provider] - 1 week Discharge Date/Time: 04/19/24 14:29
[2024-04-19 12:52] LABS: Bacteria Urine TRACE #/HPF (NONE SEEN); Cast Seen? NONE SEEN #/LPF (NONE SEEN); Crystals Seen? None Seen #/HPF (None Seen); Mucus Urine NONE SEEN (NONE SEEN); RBC Urine 0-2 #/HPF (0-2); Squamous Epithelial Cell Urine FEW #/LPF (NONE/RARE); Urine Culture Indicated NO; WBC Urine 0-2 #/HPF (NONE SEEN)
[2024-04-19] MEDS: KETOROLAC TROMETHAMINE 30 MG/ML VIAL IVP (12:57)
[2024-04-19 13:16] LABS: Alanine Aminotransferase 42 U/L (14-59); Albumin Globulin Ratio 0.8; Albumin Level 3.5 g/dL (3.4-5.0); Alkaline Phosphatase 79 U/L (46-116); Anion Gap 13.8; Aspartate Amino Transferase 27 U/L (15-37); BUN Creatinine Ratio 23.5; Bilirubin Direct 0.1 mg/dL (0.0-0.2); Bilirubin Total 0.4 mg/dL (0.2-1.0); Calcium 8.2 mg/dL (8.5-10.1); Carbon Dioxide 27.9 mmol/L (21.0-32.0); Chloride 102 mmol/L (98-107); Estimated GFR (African America >60 (>=60); Estimated GFR (Non-African Ame >60 (>=60); Globulin 4.6 g/dL; Glucose 243 mg/dL (74-106); Potassium 3.7 mmol/L (3.5-5.1); Sodium 140 mmol/L (136-145); Total Protein 8.1 g/dL (6.4-8.2); Troponin I High Sensitivity 9.6 pg/mL (4.0-51.3)
== END 2024-04-19 14:29 | disposition home or self-care (01) ==
PROVIDERS: Emergency Provider Emergency Medicine; PCP Nurse Practitioner Family
DX: M54.9 Dorsalgia, unspecified (principal)
CPT/HCPCS: 36415; 80053; 80076; 81001; 83605; 83690; 84484; 85025; 96361; 96374; 99284; J1885

== ENCOUNTER 2024-06-17 15:32 | Inpatient (IN) | payer MEDICARE, SELFPAY ==
[2024-06-17 15:39] VITALS: BP 191/97; PULSE 96; TEMP 36.7; O2SAT 98; BMI 24.4
--- NOTE | 2024-06-17 15:40 | XR_ITS ---
The [address] [address] Patient Name: ELSA CATALAN MRN: [id number] date: 1960 Sex: F Assigned Patient Location: ER Current Patient Location: ER Accession/Order Number: [id number] Exam Date: 06/17/2024 16:18 Report Date: 06/17/2024 17:08 At the request of: ALMA KOCH Procedure: XR pelvis 1-2V EXAM: XR pelvis 1-2V HISTORY: The patient is a 64-year-old female. Fall COMPARISON: None. FINDINGS: The basicervical fracture of the proximal right femur seen on the accompanying femoral radiographs is not well seen on this single AP view of the pelvis. No displaced fractures are seen within either proximal femur or elsewhere throughout the bony pelvis on this single AP view. The widths and alignment of both hip joints are maintained. The sacroiliac joints are maintained. The pubic symphysis is maintained. XR/XR pelvis 1-2V IMPRESSION: No displaced fractures seen. Electronically authenticated by: ROMA KELLOGG Date: 06/17/2024 17:08
--- NOTE | 2024-06-17 15:40 | XR_ITS ---
The [address] [address] Patient Name: ELSA CATALAN MRN: [id number] date: 1960 Sex: F Assigned Patient Location: ER Current Patient Location: ER Accession/Order Number: [id number] Exam Date: 06/17/2024 16:18 Report Date: 06/17/2024 17:07 At the request of: ALMA KOCH Procedure: XR humerus RT EXAM: XR humerus RT HISTORY: The patient is a 64-year-old female, fall COMPARISON: None. XR/XR humerus RT IMPRESSION: No fractures or cortical discontinuities are seen throughout the length of the right humerus. No periprosthetic fractures are seen around the humeral component of the total elbow prosthesis. The shoulder joint is grossly maintained. Electronically authenticated by: ROMA KELLOGG Date: 06/17/2024 17:07
--- NOTE | 2024-06-17 15:40 | CT_ITS ---
The [address] [address] Patient Name: ELSA CATALAN MRN: [id number] date: 1960 Sex: F Assigned Patient Location: ER Current Patient Location: ER Accession/Order Number: [id number] Exam Date: 06/17/2024 16:28 Report Date: 06/17/2024 17:02 At the request of: ALMA KOCH Procedure: CT head/brain wo con EXAM: CT head/brain wo con HISTORY: fall COMPARISON: 07/21/2016 TECHNIQUE: Multiple thin computed tomograms of the head were obtained, with sagittal and coronal reconstructions. Radiation reduction technique and algorithms were utilized during the study. FINDINGS: The ventricles are not enlarged, the lateral ventricles are symmetric and the third ventricle is in the midline. The sylvian fissures and cortical sulci are unremarkable. There is no evidence of an intracranial hemorrhage, mass lesion or apparent acute infarct. There is been interval development of a small lacunar infarct at the head of the caudate lobe on the left. An additional remote infarct is seen in the periventricular deep white matter anterior to the anterior horn of the left lateral ventricle. Patchy diminished attenuation is now seen in the periventricular deep white matter. The cerebellum and visualized brainstem are intact. The visualized paranasal sinuses are relatively clear. The middle ears are aerated. The mastoid sinuses are clear. There is no apparent acute skull fracture. CT/CT head/brain wo con IMPRESSION: There is no evidence of an intracranial hemorrhage, mass lesion or apparent acute infarct. 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 There is also been interval development of significant diminished attenuation in the periventricular deep white matter indicating small vessel ischemic changes. The visualized sinuses are clear. There is no apparent acute skull fracture. No other significant interval changes are identified. Electronically authenticated by: CLAUDIA LAWTON Date: 06/17/2024 17:02
--- NOTE | 2024-06-17 15:40 | XR_ITS ---
The [address] [address] Patient Name: ELSA CATALAN MRN: [id number] date: 1960 Sex: F Assigned Patient Location: ER Current Patient Location: ER Accession/Order Number: [id number] Exam Date: 06/17/2024 16:18 Report Date: 06/17/2024 17:05 At the request of: ALMA KOCH Procedure: XR femur RT 2V EXAM: XR femur RT 2V HISTORY: The patient is a 64-year-old female, fall COMPARISON: None. FINDINGS: There is a subtle nondisplaced basicervical fracture of the right femoral neck. No other fractures or cortical discontinuities are seen throughout the length of the right femur. The width and alignment of the right hip joint is maintained. No periprosthetic fractures are seen around the femoral component of the right total knee prosthesis. XR/XR femur RT 2V IMPRESSION: Basicervical fracture of the right femoral neck. Electronically authenticated by: ROMA KELLOGG Date: 06/17/2024 17:05
--- NOTE | 2024-06-17 15:40 | CT_ITS ---
The [address] [address] Patient Name: ELSA CATALAN MRN: [id number] date: 1960 Sex: F Assigned Patient Location: ER Current Patient Location: ER Accession/Order Number: [id number] Exam Date: 06/17/2024 16:28 Report Date: 06/17/2024 17:25 At the request of: ALMA KOCH Procedure: CT cervical spine wo con CT CERVICAL SPINE WITHOUT CONTRAST, 06/17/2024. HISTORY: Fall. Neck pain. COMPARISON: None. TECHNIQUE: Noncontrast axial CT images obtained through the cervical spine. Reconstructions obtained in the sagittal and coronal planes. Dose reduction techniques were achieved by using automated exposure control and/or adjustment of mA and/or kV according to patient size and/or use of iterative reconstruction technique. FINDINGS: Cervical spine alignment normal. No subluxation. Odontoid process is intact. Facet joints are intact. Vertebral body heights are normal. No acute cervical spine fracture. Moderate degenerative disc disease at C4-C5. No evidence of spinal cord compression. No paraspinal soft tissue swelling. No paraspinal masses. Prior thyroidectomy. CT/CT cervical spine wo con IMPRESSION: No acute cervical spine fracture or traumatic subluxation. Electronically authenticated by: DANETTE CHARLES Date: 06/17/2024 17:25
--- NOTE | 2024-06-17 15:44 | ED.GENADUL1 ---
Documented by User: [email or web address] Eddy 06/17/24 17:50 HPI HPI - General Adult General Chief complaint: Fall Stated complaint: FALL Time Seen by Provider: 06/17/24 15:33 Source: patient Mode of arrival: Wheelchair Limitations: physical limitation History of Present Illness HPI narrative: Patient is a 64-year-old female who presents to the emergency department after a fall at home. She required assistance with a wheelchair at her vehicle. She states she tripped and fell onto her right side. She does not believe she hit her head and denies loss of consciousness. She complains of right superior shoulder pain and hit her right elbow. She complains of most of her pain in the right lateral hip and is having difficulty moving the right leg. She has had a previous right knee replacement years ago. No medications taken prior to arrival. She is not anticoagulated. Related Data Home Medications ?Medication ?Instructions ?Recorded ?Confirmed clonidine HCl 0.1 mg tablet 0.1 mg PO BID 06/17/24 06/17/24 ergocalciferol (vitamin D2) 1,250 1,250 mcg PO MOFR@09 06/17/24 06/17/24 mcg (50,000 unit) capsule gabapentin 800 mg tablet 800 mg PO QID 06/17/24 06/17/24 insulin glargine 100 unit/mL (3 55 unit subcut .QHS 06/17/24 06/17/24 mL) subcutaneous pen (Lantus Solostar U-100 Insulin) leflunomide 20 mg tablet 20 mg PO .QD 06/17/24 06/17/24 levothyroxine 200 mcg tablet 200 mcg PO .QD 06/17/24 06/17/24 metoprolol succinate 50 mg 50 mg PO .QD 06/17/24 06/17/24 tablet,extended release 24 hr simvastatin 40 mg tablet 40 mg PO .QHS 06/17/24 06/17/24 sulfasalazine 500 mg 0.5 g PO TID 06/17/24 06/17/24 tablet,delayed release Allergies Allergy/AdvReac Type Severity Reaction Status Date / Time Penicillins AdvReac Intermediate Rash Verified 06/17/24 15:42 Opioid HPI Opioid Management Most Recent Opioid Data: Last Pain Scale 10 06/17/24 15:58 Last MAR Pain Assessment 06/17/24 15:58 Review of Systems ROS Constitutional Denies: fever or chills Ears, nose, mouth, and throat Denies: throat pain or nasal congestion Respiratory Denies: shortness of breath Gastrointestinal Denies: nausea or vomiting Musculoskeletal Reports: extremity pain, joint pain and limited range of motion; Denies: back pain or neck pain Neurological Denies: headache, numbness in extremities or weakness in extremities Hematologic/Lymphatic Denies: easy bruising or easy bleeding PFSH PFSH Social History Little interest or pleasure in doing things: not at all Feeling down, depressed, or hopeless: not at all Exam Narrative Exam Narrative: Gen.: Tearful, yelling in pain requiring assistance to transfer to exam cart Head: Normocephalic, atraumatic ENT: Moist mucous membranes, no facial or dental injury, C-spine nontender Respiratory: No respiratory distress, lungs clear bilaterally Cardio: Regular rate and rhythm Gastrointestinal: Abdomen is soft, nondistended and nontender to palpation, pelvis is stable Extremities: Diffuse mild tenderness of the right proximal humerus and shoulder, abrasions noted with limited flexion and extension of the right elbow due to her previous surgery. Abrasions noted to the right lateral ankle, well-healed surgical scar to the right anterior knee. Diffuse tenderness of the right hip, patient is very guarded with exam of the right lower extremity. Psych: Normal mood and affect Neuro: No focal neuro deficit Skin: Warm, dry, intact Constitutional Vital Signs, click to edit/add: Last Vital Signs Temp 98.1 F 06/17/24 15:39 Pulse 84 06/17/24 17:05 Resp 16 06/17/24 17:05 BP 180/100 H 06/17/24 17:05 Pulse Ox 95 06/17/24 17:05 O2 Del Method Room Air 06/17/24 15:39 Course Vital Signs Vital signs: Vital Signs Temperature 98.1 F 06/17/24 15:39 Pulse Rate 96 H 06/17/24 15:39 Respiratory Rate 18 06/17/24 15:39 Blood Pressure 191/97 H 06/17/24 15:39 Pulse Oximetry 98 06/17/24 15:39 Oxygen Delivery Method Room Air 06/17/24 15:39 Temperature 98.1 F 06/17/24 15:39 Pulse Rate 84 06/17/24 17:05 Respiratory Rate 16 06/17/24 17:05 Blood Pressure 180/100 H 06/17/24 17:05 Pulse Oximetry 95 06/17/24 17:05 Oxygen Delivery Method Room Air 06/17/24 15:39 Medical Decision Making MDM Narrative Medical decision making narrative: Patient was treated with IV fluids, Dilaudid, Zofran, labetalol for blood pressure control. She was also given IV Robaxin for muscle spasm. Labs were obtained, EKG ordered. Additional chest x-ray was obtained in addition to x-rays of the right humerus, pelvis, right femur and CTs of the head, C-spine and pelvis. Patient is found to have a basicervical femoral neck fracture. Discussed with Dr. Simental, she is not suitable for surgery today due to n.p.o. status, she will be admitted to primary care for further evaluation and treatment, surgery per orthopedics. Patient is not anticoagulated at this time, she was not given any anticoagulation in the ER. Stable at time of admission. SUPERVISED APC VISIT, PHYSICIAN ATTESTATION: Based on the medical record the care appears appropriate. ? Medical Records Medical records reviewed: Yes I reviewed the patient's medical records Lab Data Lab results reviewed: Yes I reviewed the patient's lab results Labs: Lab Results 06/17/24 06/17/24 06/17/24 Range/Units 15:45 16:02 17:01 WBC 7.6 (4.0-11.0) 10^3/uL RBC 4.12 L (4.20-5.40) 10^6/uL Hgb 12.3 (12.0-16.0) g/dL Hct 36.8 (36.0-48.0) % MCV 89.3 (81.0-99.0) fL MCH 29.9 (26.7-34.0) pg MCHC 33.4 (29.9-35.2) g/dL RDW 13.9 (11.0-15.0) % Plt Count 299 (150-450) 10^3/uL MPV 9.7 (9.5-13.5) fL Neut % (Auto) 29.4 L (43.0-75.0) % Lymph % (Auto) 57.5 (20.5-60.0) % [place] % (Auto) 10.2 (1.7-12.0) % Eos % (Auto) 2.0 (0.9-7.0) % Baso % (Auto) 0.4 (0.2-2.0) % Neut # (Auto) 2.2 (1.4-6.5) 10^3/uL Lymph # (Auto) 4.4 H (1.2-3.8) 10^3/uL [place] # (Auto) 0.8 (0.3-0.8) 10^3/uL Eos # (Auto) 0.2 (0.0-0.7) 10^3/uL Baso # (Auto) 0.0 (0.0-0.1) 10^3/uL Abs Immat Gran (auto) 0.04 H (0.00-0.03) 10^3/uL Imm/Tot Granulo (auto) 0.5 (0.0-0.5) % PT 10.2 (9.0-11.6) sec INR 0.96 APTT 24.8 (22.3-36.2) sec Sodium 134 L (136-145) mmol/L Potassium 4.0 (3.5-5.1) mmol/L Chloride 98 (98-107) mmol/L Carbon Dioxide 27.0 (21.0-32.0) mmol/L Anion Gap 13.0 BUN 22.0 H (7.0-18.0) mg/dL Creatinine 0.99 (0.55-1.02) mg/dL Est GFR ( Amer) >60 (>=60) Est GFR (Non-Af Amer) 56 L (>=60) BUN/Creatinine Ratio 22.2 Glucose 374 H (74-106) mg/dL Calcium 8.7 (8.5-10.1) mg/dL Total Bilirubin 0.4 (0.2-1.0) mg/dL AST 28 (15-37) U/L ALT 34 (14-59) U/L Alkaline Phosphatase 88 (46-116) U/L Total Protein 8.7 H (6.4-8.2) g/dL Albumin 4.0 (3.4-5.0) g/dL Globulin 4.7 g/dL Albumin/Globulin Ratio 0.[address] scan - head: Attestation: I have reviewed the pertinent imaging results. Radiologist's impression: ITS Impressions Cervical Spine CT 06/17/24 15:40 IMPRESSION: No acute cervical spine fracture or traumatic subluxation. Electronically authenticated by: DANETTE CHARLES Date: 06/17/2024 17:25 Femur X-Ray 06/17/24 15:40 IMPRESSION: Basicervical fracture of the right femoral neck. Electronically authenticated by: ROMA KELLOGG Date: 06/17/2024 17:[address] 06/17/24 15:40 IMPRESSION: There is no evidence of an intracranial hemorrhage, mass lesion or apparent acute infarct. 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 There is also been interval development of significant diminished attenuation in the periventricular deep white matter indicating small vessel ischemic changes. The visualized sinuses are clear. There is no apparent acute skull fracture. No other significant interval changes are identified. Electronically authenticated by: CLAUDIA LAWTON Date: 06/17/2024 17:02 Humerus X-Ray 06/17/24 15:40 IMPRESSION: No fractures or cortical discontinuities are seen throughout the length of the right humerus. No periprosthetic fractures are seen around the humeral component of the total elbow prosthesis. The shoulder joint is grossly maintained. Electronically authenticated by: ROMA KELLOGG Date: 06/17/2024 17:07 Pelvis X-Ray 06/17/24 15:40 IMPRESSION: No displaced fractures seen. Electronically authenticated by: ROMA KELLOGG Date: 06/17/2024 17:[address] 06/17/24 16:31 IMPRESSION: Incomplete appearing basicervical fracture of the anterior cortex of the right femoral neck. Electronically authenticated by: ROMA KELLOGG Date: 06/17/2024 17:04 Discharge Plan Discharge Chief Complaint: Fall Clinical Impression: Basicervical fracture of neck of right femur, Fall Patient Disposition: Admitted As Inpatient Time of Disposition Decision: 17:48 Condition: Good Documented by User: Matt Cavanaugh MD 06/17/24 18:16 HPI HPI - General Adult General Chief complaint: Fall Stated complaint: FALL Time Seen by Provider: 06/17/24 15:33 Related Data Home Medications ?Medication ?Instructions ?Recorded ?Confirmed clonidine HCl 0.1 mg tablet 0.1 mg PO BID 06/17/24 06/17/24 ergocalciferol (vitamin D2) 1,250 1,250 mcg PO MOFR@09 06/17/24 06/17/24 mcg (50,000 unit) capsule gabapentin 800 mg tablet 800 mg PO QID 06/17/24 06/17/24 insulin glargine 100 unit/mL (3 55 unit subcut .QHS 06/17/24 06/17/24 mL) subcutaneous pen (Lantus Solostar U-100 Insulin) leflunomide 20 mg tablet 20 mg PO .QD 06/17/24 06/17/24 levothyroxine 200 mcg tablet 200 mcg PO .QD 06/17/24 06/17/24 metoprolol succinate 50 mg 50 mg PO .QD 06/17/24 06/17/24 tablet,extended release 24 hr simvastatin 40 mg tablet 40 mg PO .QHS 06/17/24 06/17/24 sulfasalazine 500 mg 0.5 g PO TID 06/17/24 06/17/24 tablet,delayed release Allergies Allergy/AdvReac Type Severity Reaction Status Date / Time Penicillins AdvReac Intermediate Rash Verified 06/17/24 15:42 Opioid HPI Opioid Management Most Recent Opioid Data: Last Pain Scale 10 06/17/24 15:58 Last MAR Pain Assessment 06/17/24 15:58 PFSH PFSH Social History Little interest or pleasure in doing things: not at all Feeling down, depressed, or hopeless: not at all Exam Constitutional Vital Signs, click to edit/add: Last Vital Signs Temp 98.1 F 06/17/24 15:39 Pulse 84 06/17/24 17:05 Resp 16 06/17/24 17:05 BP 180/100 H 06/17/24 17:05 Pulse Ox 95 06/17/24 17:05 O2 Del Method Room Air 06/17/24 15:39 Course Vital Signs Vital signs: Vital Signs Temperature 98.1 F 06/17/24 15:39 Pulse Rate 96 H 06/17/24 15:39 Respiratory Rate 18 06/17/24 15:39 Blood Pressure 191/97 H 06/17/24 15:39 Pulse Oximetry 98 06/17/24 15:39 Oxygen Delivery Method Room Air 06/17/24 15:39 Temperature 98.1 F 06/17/24 15:39 Pulse Rate 84 06/17/24 17:05 Respiratory Rate 16 06/17/24 17:05 Blood Pressure 180/100 H 06/17/24 17:05 Pulse Oximetry 95 06/17/24 17:05 Oxygen Delivery Method Room Air 06/17/24 15:39 Medical Decision Making MDM Narrative Medical decision making narrative: Patient was treated with IV fluids, Dilaudid, Zofran, labetalol for blood pressure control. She was also given IV Robaxin for muscle spasm. Labs were obtained, EKG ordered. Additional chest x-ray was obtained in addition to x-rays of the right humerus, pelvis, right femur and CTs of the head, C-spine and pelvis. Patient is found to have a basicervical femoral neck fracture. Discussed with Dr. Simental, she is not suitable for surgery today due to n.p.o. status, she will be admitted to primary care for further evaluation and treatment, surgery per orthopedics. Patient is not anticoagulated at this time, she was not given any anticoagulation in the ER. Stable at time of admission. I, Dr Cavanaugh, have reviewed the above progress note and course of action in the ER; agree with the above. I have personally seen and evaluated this patient, gone over history and physical, and discussed disposition and treatment plan with the patient. EKG and chest x-ray reviewed by Dr. Cavanaugh prior to transfer to the floor. Dr. Simental was in the ER to see this patient and evaluate her and have consent signed in the ER today. He was here at 1800. SUPERVISED APC VISIT, PHYSICIAN ATTESTATION: Based on the medical record the care appears appropriate. ? Lab Data Labs: Lab Results 06/17/24 06/17/24 06/17/24 Range/Units 15:45 16:02 17:01 WBC 7.6 (4.0-11.0) 10^3/uL RBC 4.12 L (4.20-5.40) 10^6/uL Hgb 12.3 (12.0-16.0) g/dL Hct 36.8 (36.0-48.0) % MCV 89.3 (81.0-99.0) fL MCH 29.9 (26.7-34.0) pg MCHC 33.4 (29.9-35.2) g/dL RDW 13.9 (11.0-15.0) % Plt Count 299 (150-450) 10^3/uL MPV 9.7 (9.5-13.5) fL Neut % (Auto) 29.4 L (43.0-75.0) % Lymph % (Auto) 57.5 (20.5-60.0) % [place] % (Auto) 10.2 (1.7-12.0) % Eos % (Auto) 2.0 (0.9-7.0) % Baso % (Auto) 0.4 (0.2-2.0) % Neut # (Auto) 2.2 (1.4-6.5) 10^3/uL Lymph # (Auto) 4.4 H (1.2-3.8) 10^3/uL [place] # (Auto) 0.8 (0.3-0.8) 10^3/uL Eos # (Auto) 0.2 (0.0-0.7) 10^3/uL Baso # (Auto) 0.0 (0.0-0.1) 10^3/uL Abs Immat Gran (auto) 0.04 H (0.00-0.03) 10^3/uL Imm/Tot Granulo (auto) 0.5 (0.0-0.5) % PT 10.2 (9.0-11.6) sec INR 0.96 APTT 24.8 (22.3-36.2) sec Sodium 134 L (136-145) mmol/L Potassium 4.0 (3.5-5.1) mmol/L Chloride 98 (98-107) mmol/L Carbon Dioxide 27.0 (21.0-32.0) mmol/L Anion Gap 13.0 BUN 22.0 H (7.0-18.0) mg/dL Creatinine 0.99 (0.55-1.02) mg/dL Est GFR ( Amer) >60 (>=60) Est GFR (Non-Af Amer) 56 L (>=60) BUN/Creatinine Ratio 22.2 Glucose 374 H (74-106) mg/dL Calcium 8.7 (8.5-10.1) mg/dL Total Bilirubin 0.4 (0.2-1.0) mg/dL AST 28 (15-37) U/L ALT 34 (14-59) U/L Alkaline Phosphatase 88 (46-116) U/L Total Protein 8.7 H (6.4-8.2) g/dL Albumin 4.0 (3.4-5.0) g/dL Globulin 4.7 g/dL Albumin/Globulin Ratio 0.[address] scan - head: Attestation: I personally reviewed and interpreted this imaging study as follows: (EKG interpretation. Normal sinus rhythm at 88 beats a minute. Normal axis deviation. No acute ST elevation, no acute ectopy. QTc of 423.) My impression: Chest x-ray shows no acute cardiopulmonary disease, no infiltrate, no effusion. This is preliminary report seen by Dr. Cavanaugh. Awaiting official results Radiologist's impression: ITS Impressions Cervical Spine CT 06/17/24 15:40 IMPRESSION: No acute cervical spine fracture or traumatic subluxation. Electronically authenticated by: DANETTE CHARLES Date: 06/17/2024 17:25 Femur X-Ray 06/17/24 15:40 IMPRESSION: Basicervical fracture of the right femoral neck. Electronically authenticated by: ROMA KELLOGG Date: 06/17/2024 17:[address] 06/17/24 15:40 IMPRESSION: There is no evidence of an intracranial hemorrhage, mass lesion or apparent acute infarct. 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 There is also been interval development of significant diminished attenuation in the periventricular deep white matter indicating small vessel ischemic changes. The visualized sinuses are clear. There is no apparent acute skull fracture. No other significant interval changes are identified. Electronically authenticated by: CLAUDIA LAWTON Date: 06/17/2024 17:02 Humerus X-Ray 06/17/24 15:40 IMPRESSION: No fractures or cortical discontinuities are seen throughout the length of the right humerus. No periprosthetic fractures are seen around the humeral component of the total elbow prosthesis. The shoulder joint is grossly maintained. Electronically authenticated by: ROMA KELLOGG Date: 06/17/2024 17:07 Pelvis X-Ray 06/17/24 15:40 IMPRESSION: No displaced fractures seen. Electronically authenticated by: ROMA KELLOGG Date: 06/17/2024 17:[address] 06/17/24 16:31
[2024-06-17] MEDS: ADACEL DIPH,PERTUSS(ACELL),TET VAC/PF 0.5 ML ADULT SYRINGE IM (15:57)
[2024-06-17] MEDS: ONDANSETRON PF 4 MG/2 ML VIAL IV (15:58)
[2024-06-17] MEDS: HYDROMORPHONE HCL 1 MG/ML CARTRIDGE IV (15:58)
[2024-06-17 16:09] LABS: Basophils Percent Auto 0.4 % (0.2-2.0); Eosinophils Absolute Auto 0.2 10^3/uL (0.0-0.7); Hematocrit 36.8 % (36.0-48.0); Hemoglobin 12.3 g/dL (12.0-16.0); Immature Granulocytes Abs Auto 0.04 10^3/uL (0.00-0.03); Immature Granulocytes Pct Auto 0.5 % (0.0-0.5); Lymphocytes Absolute Auto 4.4 10^3/uL (1.2-3.8); Lymphocytes Percent Auto 57.5 % (20.5-60.0); Mean Corpuscular HGB Conc 33.4 g/dL (29.9-35.2); Mean Corpuscular Hemoglobin 29.9 pg (26.7-34.0); Mean Corpuscular Volume 89.3 fL (81.0-99.0); Mean Platelet Volume 9.7 fL (9.5-13.5); Monocytes Absolute Auto 0.8 10^3/uL (0.3-0.8); Monocytes Percent Auto 10.2 % (1.7-12.0); Neutrophils Absolute Auto 2.2 10^3/uL (1.4-6.5); Neutrophils Percent Auto 29.4 % (43.0-75.0); Platelet Count 299 10^3/uL (150-450); Red Blood Count 4.12 10^6/uL (4.20-5.40); Red Cell Distribution Width 13.9 % (11.0-15.0); White Blood Count 7.6 10^3/uL (4.0-11.0)
[2024-06-17 16:15] LABS: Alanine Aminotransferase 34 U/L (14-59); Albumin Globulin Ratio 0.9; Alkaline Phosphatase 88 U/L (46-116); Aspartate Amino Transferase 28 U/L (15-37); BUN Creatinine Ratio 22.2; Bilirubin Total 0.4 mg/dL (0.2-1.0); Calcium 8.7 mg/dL (8.5-10.1); Chloride 98 mmol/L (98-107); Estimated GFR (African America >60 (>=60); Estimated GFR (Non-African Ame 56 (>=60); Globulin 4.7 g/dL; Glucose 374 mg/dL (74-106); Sodium 134 mmol/L (136-145); Total Protein 8.7 g/dL (6.4-8.2)
--- NOTE | 2024-06-17 16:31 | CT_ITS ---
The [address] [address] Patient Name: ELSA CATALAN MRN: [id number] date: 1960 Sex: F Assigned Patient Location: ER Current Patient Location: ER Accession/Order Number: [id number] Exam Date: 06/17/2024 16:28 Report Date: 06/17/2024 17:04 At the request of: ALMA KOCH Procedure: CT pelvis wo con EXAM: CT pelvis wo con HISTORY: The patient is a 64-year-old female, fall COMPARISON: Radiographs from 4:15 PM. TECHNIQUE: CT images were obtained through the bony pelvis and both hips without intravenous contrast and reformatted in 2 dimensions. Dose reduction techniques were achieved by using automated exposure control and/or adjustment of mA and/or kV according to patient size and/or use of iterative reconstruction technique. FINDINGS: The bone images demonstrate a subtle basicervical fracture of the right femoral neck, perhaps best seen on coronal image 39. This appears to be an incomplete fracture, involving just the anterior cortex of the femoral neck as seen on axial image 55 and sagittal image 86. This fracture does not extend into the intertrochanteric region or femoral head. No fractures or cortical discontinuities are seen within the proximal left femur or elsewhere throughout the bony pelvis. The alignment of both hip joints is maintained. The sacroiliac joints are maintained. The pubic symphysis is maintained. Incidentally noted is severe degenerative disc disease at the L5-S1 level. The soft tissue images demonstrate no abnormal fluid collections on this non-contrast enhanced study. CT/CT pelvis wo con IMPRESSION: Incomplete appearing basicervical fracture of the anterior cortex of the right femoral neck. Electronically authenticated by: ROMA KELLOGG Date: 06/17/2024 17:04
[2024-06-17] MEDS: METHOCARBAMOL 1,000 MG/10 ML VIAL 1000 MG IV (16:48)
[2024-06-17 17:05] VITALS: BP 180/100; PULSE 84; O2SAT 95
[2024-06-17 17:20] LABS: INR 0.96; Partial Thromboplastin Time 24.8 sec (22.3-36.2); Prothrombin Time 10.2 sec (9.0-11.6)
[2024-06-17] MEDS: LABETALOL HCL 20 MG/4 ML SYRINGE 10 MG IVP (17:40)
--- NOTE | 2024-06-17 17:45 | ECG_ITS ---
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
--- NOTE | 2024-06-17 17:45 | XR_ITS ---
The [address] [address] Patient Name: ELSA CATALAN MRN: [id number] date: 1960 Sex: F Assigned Patient Location: [place] Current Patient Location: [place] Accession/Order Number: [id number] Exam Date: 06/17/2024 18:45 Report Date: 06/17/2024 19:55 At the request of: ALMA KOCH Procedure: XR chest 1V EXAM: XR chest 1V at 1806 hours HISTORY: Pre-op COMPARISON: 07/06/2022 TECHNIQUE: AP upright portable chest x-ray FINDINGS: The heart is not enlarged and the vasculature is not distended. No acute infiltrate, effusion or pneumothorax is identified. The osseous structures are grossly intact. XR/XR chest 1V IMPRESSION: No acute infiltrate or evidence of cardiac decompensation. The overall appearance of the chest is essentially unchanged. Electronically authenticated by: CLAUDIA LAWTON Date: 06/17/2024 19:55
--- OUTSIDE RECORDS SUMMARY | 2024-06-17 18:32 | XMS_ITS | CCD ---
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 Name Role Phone PEPE CARTER Unavailable Unavailable Ilo, Delroy Primary Care Provider Unavailabl e Sveta Silva Unavailable [phone] Pretty Fermin Primary Care Provider [phone] AUNDREA CLIFFORD Admitting Unavailable ROSE MENDOZA Attending Unavailable ILO, DELROY Primary Care Unavailable ROSE MENDOZA Admitting Unavailable ROSE MENDOZA Attending Unavailable ILO, DELROY Primary Care Unavailable ROSE MENDOZA Admitting Unavailable MENDOZAROSE Attending Unavailable HOY, PRETTY Primary Care Unavailable DEREK ZABALA Attending Unavailable HOAaron, PRETTY Primary Care Unavailable AYDE ALMANZAR Admitting Unavailabl e AYDE ALMANZAR Attending Unavailabl e ILO, DELROY Primary Care Unavailable [facility] Consulting AYDE Daniels Admitting Unavailabl e JENY, PRETTY Primary Care Unavailable LEATHA GOMEZ Attending Unavailable EMILEEY, PRETTY Primary Care Unavailable [facility] Consulting ROCHELLE Schwartz Admitting Unavailable NUSRAT MARX Attending Unavailable AYDE ALMANZAR Admitting Unavailabl e AYDE ALMANZAR Attending Unavailabl e JENY, PRETTY Primary Care Unavailable AYDE ALMANZAR Admitting Unavailabl e CANDELARIO CURTIS Attending Unavailable JENY, PRETTY Primary Care Unavailable AYDE ALMANZAR Admitting Unavailabl e AYDE ALMANZAR Referring Unavailabl e JENY, PRETTY Primary Care Unavailable Ayde Almanzar Unavailable Pretty Fermin Primary Care Provider Ayde Almanzar Unavailable Leatha Gomez Unavailable [phone] Pretty Fermin MD Primary Care Provider [phone] Pretty Fermin MD Primary Care Provider [phone] JOYCE, TAWANDA Consulting Unavailable JOYCE, TAWANDA Primary [...] Unavailable Pretty Fermin MD Primary Care Provider [phone] Pretty Fermin MD Primary Care Provider [phone] PEPE CARTER Attending Unavailable PRETTY FERMIN M Primary Care Unavailable PEPE CARTER Referring Unavailable JENY, PRETTY M Primary Care Unavailable PRETTY FERMIN M Primary Care Unavailable PEPE CARTER Attending Unavailable JENY, PRETTY M Primary Care Unavailable PEPE CARTER Referring Unavailable PRETTY FERMIN M Primary Care Unavailable Allergies Allergy Classification Reported Allergen(s) Allergy Type Date of Onset Reaction(s) Facility (19 sources) indomethacin; Translations: [INDOMETHACIN] Drug Allergy 3 [facility] (18 sources) penicillin; Translations: [PENICILLIN G] Drug Allergy 3 [facility] (18 sources) propoxyphene; Translations: [PROPOXYPHENE] Drug Allergy 3 [facility] (2 sources) OTHER; Translations: [OTHER] Propensity to adverse reactions (disorder) 3 [facility] (12 sources) Penicillins; Translations: [Penicillins] Propensity to adverse reactions to drug 3 [facility] (10 sources) Lisinopril; Translations: [Unknown] Drug Allergy 9 Other (See Comments) [facility] (6 sources) Adhesive Tape-Silicones Propensity to adverse reactions to drug 9 [facility] (20 sources) Ciprofloxacin; Translations: [CIPROFLOXACIN] Drug Allergy 7 [facility] (14 sources) Anesthetics [Other] Propensity to adverse reactions 3 [facility] (1 source) Acetaminophen / oxyCODONE Drug Allergy 1 [facility] (1 source) Ciprofloxacin Drug Allergy 7 [facility] (1 source) Latex Drug allergy (disorder) 0 [facility] (3 sources) Propofol; Translations: [PROPOFOL] Drug Allergy 4 [facility]et [facility] Medications Current Medications Medication Drug Class(es) Dates [...] hours PRN, moderate to severe pain, Starting Mon02/27/19 at 1238, For 3 days [] Initiate [...] Reasons: rheumatoid arthritis. 0 09/04/2019 Discontinued (Reorder) [id number] 200 actuat albuterol 0.09 mg/actuat metered dose inhaler (18 sources) beta2-Adrenergic Agonist Start: 07-02-2020 take 2 puff(s) by mouth every four hours VENTOLIN HFA 90 mcg/actuation inhaler inhale 2 puffs by mouth and INTO THE LUNGS every 4 hours if needed 07/02/2020 Active Start: 09-04-2019 End: 09-05-2019 albuterol inhaler 2 puff Start: 09-04-2019 End: 09-04-2019 take 2 puff(s) by inhalation once 2 puff, Inhalation, Once (RT), Mon09/04/19 at 1000, For 1 dose, Pre-Procedure SPACER REQUIRED FOR ADMINISTRATION Comment on above: inhale 2 puffs by mo uth and INTO THE LUNGS every 4 hours if needed cholecalciferol 0.125 mg oral tablet (16 sources) Vitamin D Start: 07-02-2013 take 1 tablet by mouth once daily Cholecalciferol, Vitamin D3, 5,000 unit Tab Take 1 tablet by mouth once daily. 0 07/02/2013 Active Comment on above: Take 1 tablet by meera th once daily. cholecalciferol, vitamin D3, (VITAMIN D3 ORAL) (11 sources) take 1 capsule by mouth once daily in the morning cholecalciferol, vitamin D3, (VITAMIN D3 ORAL) Indications: Supp Take 1 capsule by mouth every morning Reasons: Supp. 0 Active cholecalciferol, vitamin D3, (VITAMIN D3 ORAL) Indications: Supp Take by mouth every morning Reasons: Supp. 0 Active cloNIDine hydrochloride 0.1 mg oral tablet (16 sources) Central alpha-2 Adrenergic Agonist Start: 11-19-2020 take 1 tablet by mouth twice daily cloNIDine HCl (CATAPRES) 0.1 mg tablet Take 0.1 mg by mouth twice daily. 11/19/2020 Active Comment on above: Take 0.1 mg by mouth twice daily. docusate sodium 100 mg oral capsule (18 sources) Start: 03-17-2021 take 1 capsule by mouth every twelve hours as needed docusate sodium (COLACE) 100 mg capsule Take 1 capsule by mouth twice daily as needed for constipation. 20 capsule 03/17/2021 Active Start: 04-08-2020 End: 04-18-2020 take [...] Comment on above: Take [address] [facility] twice daily as needed for constipation. empagliflozin 25 mg oral tablet (20 sources) Sodium-Glucose Cotransporter 2 Inhibitor Start: 0 take 1 tablet by mouth once daily JARDIANCE 25 mg tablet Take 25 mg by mouth once daily. 07/02/2020 [facility] in [facility] morning, then take 2 tablets by mouth empagliflozin (Jardiance) 10 mg Tab Indications: type 2 diabetes mellitus Take 10 mg by mouth every morning Reasons: type 2 diabetes mellitus. 0 Active Comment on above: Take 25 mg by mouth once daily. ergocalciferol 1.25 mg oral capsule (3 sources) Provitamin D2 Compound Start: 05-15-20 24 ergocalciferol 50,000 unit capsule (VITAMIN D2, DRISDOL) Indications: Vitamin D deficiency (take by mouth with food twice a week, ONE CAPSULE ON MONDAY AND ONE ON MONDAY) FOR A TOTAL OF 8 WEEKS. 16 capsule 05/15/2024 Active FLUoxetine 20 mg oral capsule (16 sources) Serotonin Reuptake Inhibitor Start: 01-16-20 take 1 capsule by mouth once daily FLUoxetine (PROZAC) 20 mg capsule Indications: Anxiety Take 1 capsule by mouth once daily. 1 capsule 1 01/16/2020 Active Comment on above: Take 1 capsule by mo ut once daily. folic acid 1 mg oral tablet (20 sources) Start: 07-26-20 End: 08-11-20 take 2 tablets by mouth once daily [...] tablets by mo ut once daily. gabapentin 800 mg oral tablet (20 sources) Anti-epileptic Agent Start: 05-18-2024 End: 05-15-2025 take 4 tablets by mouth once daily gabapentin (NEURONTIN) 800 mg tablet Indications: Chronic bilateral low back pain with right-sided sciatica Take 4tabs by mouth per day 120 tablet 3 05/18/2024 05/15/2025 Active Start: 12-22-2021 End: 05-18-2024 take 3 capsules by mouth once daily gabapentin (NEURONTIN) 300 mg capsule Indications: Fibromyalgia , Postherpetic neuralgia , Bilateral carpal tunnel syndrome TAKE 10 CAPSULES BY MOUTH DIVIDED THROUGHOUT THE DAY 270 capsule 3 04/18/2022 05/18/2024 Discontinued Start: 10-12-2019 End: 10-14-2019 take 900 mg by mouth three times daily 900 mg, Oral, 3 times daily, First dose on 10/12/19 at 1700 Start: 01-21-2019 take 3 capsules by m outh three times daily gabapentin (NEURONTIN) 300 MG capsule Indications: Pain Take 900 mg by mouth 3 (three) times a day Reasons: Pain. 0 01/21/2019 Active Start: 01-21-2019 End: 09-05-2019 take 300 mg by mouth three times daily 300 mg, Oral, 3 times daily, First dose on Mon09/04/19 at 1630 Comment on above: Take 10caps divided throughout the day, take by mouth TAKE 10 CAPSULES BY MOUTH DIVIDED THROUGHOUT THE DAY insulin aspart, human 100 unt/ml injectable solution (20 sources) Insulin Analog Start: 01-21-2019 insulin aspart U-100 (NOVOLOG) 100 unit/mL Inject subcutaneously. 01/21/2019 Active insulin aspart U -100 (NovoLOG) 100 unit/mL injection Indications: type 2 diabetes mellitus , Sliding scale Inject under the skin 3 (three) times a day before meals Reasons: type 2 diabetes mellitus, Sliding scale. 0 Active Comment on above: Inject subcutaneousl y. irbesartan 150 mg oral tablet (20 sources) Angiotensin 2 Receptor Miguel Start: 06-10-20 20 take 1 tablet by mouth once daily irbesartan (AVAPRO) 150 mg tablet Take 150 mg by mouth once daily. 06/10/2020 Active Comment on above: Take 150 mg by mouth once daily. leflunomide 20 mg oral tablet (20 sources) Antirheumatic Agent Start: 05-14-20 24 take 1 tablet by mouth once daily at mealtime leflunomide (ARAVA) 20 mg tablet Indications: Rheumatoid arthritis of multiple sites without organ or system involvement with positive rheumatoid factor (HCC) Take 1tab daily by mouth with food. Hold in on antibiotics or ill. 90 tablet 3 05/14/2024 Active Start: 02-14-2023 take 1 tablet by meera once daily at mealtime leflunomide (ARAVA) 20 [...] MG TABLET FOR TOTAL OF 250 MG 07/02/2020 Active Start: 10-13-2019 End: 10-14-2019 take 200 ug by mouth once daily in the morning 200 mcg, Oral, Every morning, First dose on 10/13/19 at 0900 For patients on continuous [...] adjustment to meet caloric needs. Start: 01-21-2019 take 1 tablet by meera once daily levothyroxine (SYNTHROID) 200 mcg tablet Take 200 mcg by mouth once daily. 07/02/2020 Active Start: 01-21-2019 SYNTHROID 175 mcg tablet Indications: hypothyroidism Take 200 mcg by mouth every morning Reasons: a condition with low thyroid hormone levels. 0 01/21/2019 Active Start: 01-21-2019 take 1 tablet by meera once daily in the morning SYNTHROID 175 mcg tablet Indications: hypothyroidism Take 175 mcg by mouth every morning Reasons: hypothyroidism. 0 01/21/2019 Active Comment on above: take 1 tablet by meera once daily ALONG WITH 200 MG TABLET FOR TOTAL OF 250 MG Take [address] [facility] once daily. lidocaine 0.05 mg/mg medicated patch (20 sources) Antiarrhythmic, Amide Local Anesthetic Start: 1 apply 1 dose transdermal route once daily lidocaine (LIDODERM) 5 % apply 1 patch to the aRM once daily IN THE AFTERNOON 11/19/2020 Active Start: 04-08-2020 End: 04-08-2020 1 [...] the aRM once daily IN THE AFTERNOON methotrexate 25 mg/ml injectable solution (20 sources) Folate Analog Metabolic Inhibitor Start: 05-14-20 inject 1 mL by subcutaneous injection every week methotrexate sodium 25 mg/mL soln Indications: Rheumatoid arthritis of multiple sites without organ or system involvement with positive rheumatoid factor (HCC) , Elevated sed rate Sq 1ml injection once a week. No alcohol. Hold if on antibiotics or ill. 25 mL 3 05/14/2024 Active Start: 03-13-2023 methotrexate 2 .5 mg tablet Indications: Rheumatoid arthritis of multiple [...] antibiotics or ill. Hold 1-2weeks after vaccines. 24 hr metoprolol succinate 25 mg extended release oral tablet (20 sources) beta-Adrenergic Miguel Start: 10-19-2020 take 1 tablet by mouth once daily metoprolol succinate ER (TOPROL XL) 25 mg 24 hr tablet Take 25 mg by mouth once daily. 10/19/2020 Active Start: 04-08-2020 End: 04-08-2020 metoprolol (LOPRESSOR) injec tion 5 mg Start: 01-21-2019 End: 10-14-2019 take 1 tablet by mouth once daily in the morning TOPROL XL 25 mg 24 hr tablet Indications: hypertension Take 25 mg by mouth every morning Reasons: high blood pressure. 0 01/21/2019 Active Comment on above: Take 25 mg by mouth once daily. ondansetron 4 mg disintegrating oral tablet (9 sources) Serotonin-3 Receptor Antagonist Start: 04-08-20 20 End: 04-15-20 20 take 1 tablet by mouth every six [...] for nausea/vomiting, or as directed by anesthesia predniSONE 5 mg oral tablet (20 sources) [...] 6=1tab daily thereafter, No NSAIDs on med raNITIdine 75 mg oral tablet (1 source) Histamine-2 Receptor Antagonist ranitidine (ZANTAC) 75 MG tablet Indications: GERD Take 75 mg by mouth as needed for heartburn Reasons: GERD. 0 Active simvastatin 20 mg oral tablet (20 sources) HMG-CoA Reductase Inhibitor Start: 1 take 1 tablet by mouth once daily simvastatin (ZOCOR) 20 mg tablet Take 20 mg by mouth once daily. 11/12/2020 Active Start: 10-13-2019 End: 10-14-2019 take [...] Take 20 mg by mouth once daily. sulfamethoxazole 800 mg / trimethoprim 160 mg oral tablet (2 sources) Dihydrofolate Reductase Inhibitor Antibacterial, Sulfonamide Antimicrobial Start: 0 End: 0 take 1 tablet by mouth twice daily sulfamethoxazo le-trimethopri m (BACTRIM DS,SEPTRA DS) 800-160 mg per tablet [...] . 14 tablet 0 10/14/2019 10/21/2019 Active sulfaSALAzine 500 mg delayed release oral tablet (20 sources) Aminosalicylate Start: 05-14-2024 take 1 tablet by mouth three times daily sulfaSALAzine EC (AZULFIDINE EN-TABS) 500 mg EC tablet Indications: Rheumatoid arthritis of multiple sites without organ or system involvement with positive rheumatoid factor (HCC) Take 1 tablet by mouth three times a day. 270 tablet 3 05/14/2024 Active Start: 02-14-2023 take 1 tablet by meera th three times daily sulfaSALAzine EC (AZULFIDINE EN-TABS) [...] tablet by meera th three times daily. 24 hr upadacitinib 15 mg extended release oral tablet (17 sources) Start: 2 End: 2 take 1 [...] 1weeks after vaccines. VITAMIN B COMPLEX ORAL (7 sources) VITAMIN B COMPLE X ORAL Take by mouth. Active VITAMIN B COMPLE X ORAL Take by mouth. 0 Active Comment on above: Take by mouth. VITAMIN E ORAL (16 sources) VITAMIN E ORAL T frank by mouth. Active VITAMIN E ORAL T frank by mouth. 0 Active Comment on above: Take by mouth. Completed/Discontinued Medications Medication Drug Class(es) Dates Sig (Normalized) Sig (Original) aluminum hydroxide 40 mg/ml / magnesium hydroxide 40 mg/ml / simethicone 4 mg/ml oral suspension (1 source) Start: 02-27-2019 End: 02-28-2019 take 30 mL by mouth every four hours as needed 30 mL, Oral, Every 4 hours PRN, indigestion, Starting Mon02/27/19 at 1238 aspirin 81 mg delayed release oral tablet (7 sources) Platelet Aggregation Inhibitor, Nonsteroidal Anti-inflammatory Drug End: 08-23-2019 take 1 tablet by mouth once daily in the morning aspirin 81 MG EC tablet Indications: myocardial infarction prevention Take 81 mg by mouth every morning Reasons: treatment to prevent a heart attack. 0 08/23/2019 Discontinued (Therapy completed) aspirin/acetaminop hen/caffeine (EXCEDRIN EXTRA STRENGTH ORAL) (3 sources) End: 02-28-2019 aspirin/acetaminop hen/caffeine (EXCEDRIN EXTRA STRENGTH ORAL) Indications: Pain Take [...] 10-12-2019 ceFAZolin (ANCEF) IVPB 1 g (premix) clindamycin 300 mg oral capsule (6 sources) [...] . 9 capsule 0 02/27/2019 03/02/2019 Active docusate sodium 50 mg / sennosides, correction 8.6 mg oral tablet (3 sources) Start: 10-12-2019 End: 10-14-2019 take 1 tablet by mouth twice daily [...] May be crushed if given via tube. 0.4 ml enoxaparin sodium 100 mg/ml prefilled syringe (1 source) Low Molecular Weight Heparin Start: 10-14-2019 End: 10-14-2019 enoxaparin (LOVENOX) syringe 40 mg 20 ml fentaNYL 0.05 mg/ml injection (4 sources) Opioid Agonist Start: 04-08-2020 End: 04-08-2020 25 mcg, Intravenous, Every 5 min PRN, Pain, Starting 04/08/20 at 1414, For 4 doses, PACU (only) [] Do not give more than 100 mcg while in PACU. Start: 04-08-2020 End: 04-08-2020 100 mcg, Intravenous, Once, 04/08/20 at 1015, For 1 dose, Pre-Procedure Pre-procedure for nerve block. May repeat in 5 minutes x 1 if sedation inadequate to perform block. Start: 09-04-2019 End: 09-04-2019 100 mcg, Intravenous, Once, Mon09/04/19 at 1000, For 1 dose, Pre-Procedure Pre-procedure for nerve block. May repeat in 5 minutes x 1 if sedation inadequate to perform block. Start: 02-27-2019 End: 02-27-2019 100 mcg, Intravenous, Once, Mon02/27/19 at 0645, For 1 dose, Pre-Procedure Pre-procedure for nerve block. May repeat in 5 minutes x 1 if sedation inadequate to perform block. 1 ml hydrALAZINE hydrochloride 20 mg/ml injection [...] (may repeat), moderate to severe pain, Starting 02/27/19 at 1238 [] Initiate with 0.25 mg [...] 50 Units, Subcutaneous, Nightly, First dose on 10/13/19 at 2100 Do not hold basal insulin [...] unit/mL (3 mL) Inject 50 Units subcutaneously. 01/21/2019 Active Start: 01-21-2019 LANTUS SOLOSTA R [...] Units, Subcutaneous, At bedtime, First dose on Mon10/12/19 at 2100 For Nightly Insulin Dose Coverage, [...] insulin lispro (HumaLOG) inj ection 0-5 Units 4 ml labetalol hydrochloride 5 mg/ml cartridge (4 sources) beta-Adrenergic Miguel Start: 04-08-2020 End: 04-08-2020 5 mg, Intravenous, Every 5 min PRN, SBP greater than 160 or DBP greater than 90, Starting 04/08/20 at 1414, For 4 doses, PACU (only) [...] as needed labetalol (NORMODYNE) injection 10 mg lisinopril 20 mg oral tablet (8 sources) Angiotensin Converting Enzyme Inhibitor Start: 01-21-2019 End: 08-23-2019 take 1 tablet by mouth once daily in the morning lisinopril (PRINIVIL,ZESTRIL) 20 MG tablet Indications: hypertension Take 20 mg by mouth every morning Reasons: high blood pressure. 0 01/21/2019 08/23/2019 Discontinued (Therapy completed) magnesium hydroxide 80 mg/ml oral suspension (2 sources) Start: 09-04-2019 End: 09-05-2019 take 2400 mg by mouth once daily [...] four times daily as needed (muscle spasm/pain). 2 ml metoclopramide 5 mg/ml injection (3 sources) Dopamine-2 Receptor Antagonist Start: 04-08-2020 End: 04-08-2020 take 10 mg intravenous route every twenty-four [...] directed by anesthesia, as needed for nausea/vomiting 5 ml midazolam 1 mg/ml injection (3 sources) Benzodiazepine Start: 04-08-2020 End: 04-08-2020 2 mg, Intravenous, Once, 04/08/20 at 1015, For 1 dose, Pre-Procedure Pre-procedure for nerve block. May repeat in 5 minutes x 1 if sedation inadequate to perform block. Start: 09-04-2019 End: 09-04-2019 2 mg, Intravenous, Once, 09/04/19 at 1000, For 1 [...] (may repeat), moderate to severe pain, Starting 09/04/19 at 1613 [] Initiate with 5 mg [...] silver nitrate applicators a pplicator 1 application 2 ml prochlorperazine 5 mg/ml injection (2 sources) Phenothiazine Start: 04-08-2020 End: 04-08-2020 take 10 mg intravenous route every twenty-four [...] transdermal route once 1 patch, Transdermal, Once, 09/04/19 at 0945, For 1 dose Start: 02-27-2019 End: 02-28-2019 apply 1 dose transdermal route once 1 patch, Transdermal, Once, 02/27/19 at 0700, For 1 dose, Pre-Procedure Apply to left mastoid. 1000 ml sodium chloride 9 mg /ml injection (5 sources) Start: 10-12-2019 End: 10-12-2019 sodium chloride 0.9% (NS) arelis lucy 500 mL Start: 09-04-2019 End: 09-05-2019 take [...] chloride (PF) (NS) fl ush 5 mL traZODone hydrochloride 50 mg oral tablet (1 source) Serotonin Reuptake Inhibitor Start: 10-12-2019 End: 10-14-2019 take 50 mg by mouth once daily as needed for sleep 50 mg, Oral, Nightly PRN, sleep, Starting 10/12/19 at 1609 [] May repeat times 1 in 30 minutes if still awake. Problems Active Problems Problem Classification Problem Date Documented Date Episodic/Chronic Asthma (16 sources) Mild intermittent asthma; Translations: [Mild intermittent asthma, uncomplicated] Onset: 01-29-2021 01-29-2021 Chronic Cardiac dysrhythmias (1 source) Tachycardia, unspecified; Translations: [TACHYCARDIA UNSPECIFIED] Onset: 11-03-2022 Episodic Complications of surgical procedures or medical care (1 source) Postprocedural hypothyroidism; Translations: [POSTPROCEDURAL HYPOTHYROIDISM] Onset: 02-02-2022 Chronic Deficiency and other anemia (4 sources) Anemia of chronic disease; Translations: [Anemia [...] 04-24-2019 04-24-2019 Chronic Disorders of lipid metabolism (20 sources) Hyperlipidemia; Translations: [Other hyperlipidemia] Onset: 01-29-2021 03-15-2021 Chronic Essential hypertension (20 sources) Benign essential hypertension; Translations: [Essential hypertension] Onset: 04-23-2019 04-23-2019 Chronic Nonspecific chest pain (4 sources) Other chest pain; Translations: [OTHER CHEST PAIN] Onset: 11-02-2022 Episodic Nutritional deficiencies (20 sources) Vitamin D deficiency; Translations: [Vitamin D deficiency, unspecified] Onset: 07-01-2013 Chronic Osteoarthritis (20 sources) Degenerative joint disease involving multiple joints; Translations: [Secondary multiple arthritis] Onset: 08-06-2015 08-06-2015 Chronic Osteoporosis (1 source) Postmenopausal osteoporosis; Translations: [Age-related osteoporosis without current pathological fracture] 05-18-2024 Chronic Other acquired deformities (1 source) Contracture, right elbow; Translations: [Contracture of right elbow] Chronic Other acquired deformities (1 source) Contracture of left elbow joint; Translations: [Contracture of left elbow] Other connective tissue disease (20 sources) Pain of bilateral hands; Translations: [Pain in right hand] Onset: 07-16-2018 07-16-2018 Episodic Other connective tissue disease (2 sources) Triggering of digit; Translations: [Trigger finger, right middle finger] 05-18-2024 Episodic Other connective tissue disease (1 source) Trigger finger, right middle finger; Translations: [Trigger middle finger of right hand] Onset: 06-06-2024 Episodic Other injuries and conditions due to [...] [Acute neuritis] Chronic Other nervous system disorders (16 sources) Carpal tunnel syndrome; Translations: [Carpal tunnel [...] 09-04-2019 09-04-2019 Chronic Other non-traumatic joint disorders (1 source) Chronic pain of left upper limb; Translations: [Pain in left elbow] 07-26-2021 Episodic Other non-traumatic joint disorders (1 source) Chronic pain of right upper limb; Translations: [Pain in right elbow] 05-18-2024 Episodic Other upper respiratory infections (1 source) [...] right elbow, unspecified rheumatoid factor presence (HCC)] Thyroid disorders (17 sources) Acquired hypothyroidism; Translations: [Hypothyroidism] Onset: 03-15-2021 [...] Complications of surgical procedures or medical care (17 sources) Complication of procedure; Translations: [Postoperative wound infection] Onset: 1 03-15-2021 Episodic Deficiency and other anemia (1 source) Anemia, unspecified; Translations: [ANEMIA UNSPECIFIED] Onset: 2 Episodic Diabetes mellitus without complication (1 source) Other abnormal glucose; Translations: [OTHER ABNORMAL GLUCOSE] Onset: 2 Episodic Immunizations and screening for infectious disease (2 sources) Tuberculosis screening status; Translations: [Encounter for screening for respiratory tuberculosis] Onset: 4 05-28-2023 Episodic Malaise and fatigue (16 sources) Fatigue; Translations: [Other fatigue] Onset: 5 11-12-2014 Episodic Nausea and vomiting (17 sources) Postoperative nausea and vomiting; Translations: [Nausea and vomiting] Onset: 5 09-16-2015 Episodic Nutritional deficiencies (2 sources) Cobalamin deficiency; Translations: [Deficiency of other specified B group vitamins] Onset: 4 05-28-2023 Episodic Open wounds of extremities (4 sources) Open wound of upper limb; Translations: [Non-healing wound of upper extremity] Onset: 0 10-14-2019 Episodic Other aftercare (20 sources) H/O: high risk medication; Translations: [Other long-term (current) drug therapy] Onset: 8 07-16-2018 Episodic Other aftercare (1 source) 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; Translations: [PHLEBOTOMY SUPPORT TECH CURRENT USE OF INSULIN] Onset: 2 Episodic Other bone disease and musculoskeletal deformities (18 sources) Osteopenia; Translations: [Other specified disorders of bone density and structure, multiple sites] Onset: 1 12-16-2020 Episodic Other connective tissue disease (20 sources) Fibromyalgia; Translations: [Fibromyalgia] Onset: 4 08-29-2014 Episodic Other connective tissue disease (11 sources) Fibrositis arm; Translations: [Fibromyalgia affecting forearm] Onset: 9 04-24-2019 Episodic Other connective tissue disease (18 sources) Disorder of hand; Translations: [Synovitis and tenosynovitis, unspecified] Onset: 4 06-30-2014 Episodic Other connective tissue disease (16 sources) Pain in finger of right hand; Translations: [Pain in right finger(s)] Onset: 5 11-12-2014 Episodic Other connective tissue disease (16 sources) Bilateral medial epicondylitis of elbows; Translations: [Medial epicondylitis, right elbow] Onset: 8 07-23-2018 Episodic Other connective tissue disease (16 sources) Lateral epicondylitis of bilateral humerus; Translations: [Lateral epicondylitis, right elbow] Onset: 8 07-23-2018 Episodic Other connective tissue disease (1 source) Pain in right hand; Translations: [Bilateral hand pain] Onset: 8 Episodic Other connective tissue disease (1 source) Pain in left hand; Translations: [Bilateral hand pain] Onset: 8 Episodic Other eye disorders (19 sources) Tear film insufficiency; Translations: [Dry eye syndrome of unspecified lacrimal gland] Onset: 6 03-29-2016 Episodic Other gastrointestinal disorders (1 source) H/O: gastrointestinal disease; Translations: [History of postoperative nausea and vomiting] Episodic Other hematologic conditions (20 sources) ESR raised; Translations: [Elevated erythrocyte sedimentation rate] Onset: 2 Episodic Other hematologic conditions (1 source) Elevated erythrocyte sedimentation rate; Translations: [Elevated sed rate] Onset: 2 Episodic Other lower respiratory disease (16 sources) Productive cough ; Translations: [Productive cough] Onset: 7 12-01-2016 Episodic Other lower respiratory disease (4 sources) Other forms of dyspnea; Translations: [OTHER FORMS OF DYSPNEA] Onset: 2 Episodic Other nervous system disorders (16 sources) Paresthesia of hand ; Translations: [Anesthesia [...] 9 04-23-2019 Episodic Other non-traumatic joint disorders (18 sources) Hip pain; Translations: [Pain in right hip] Onset: 2 10-07-2011 Episodic Other non-traumatic joint disorders (16 sources) Pain in right knee; Translations: [Pain in joint, lower leg] Onset: 4 06-30-2014 Episodic Other non-traumatic joint disorders (16 sources) Multiple joint pain; Translations: [Pain in unspecified joint] Onset: 5 08-06-2015 Episodic Other non-traumatic joint disorders (2 sources) Shoulder pain; Translations: [Pain in right shoulder] Onset: 6 03-29-2016 Episodic Other non-traumatic joint disorders (18 sources) Bilateral wrist pain; Translations: [Pain in right wrist] Onset: 8 07-16-2018 Episodic Other non-traumatic joint disorders (20 sources) Multiple stiff joints; Translations: [Stiffness of unspecified joint, not elsewhere classified] Onset: 8 07-16-2018 Episodic Other non-traumatic joint disorders (16 sources) Swelling of joint of right wrist; Translations: [Effusion, right wrist] Onset: 1 12-10-2020 Episodic Other non-traumatic joint disorders (19 sources) Bilateral elbow joint pain; Translations: [Pain in right elbow] Onset: 1 12-10-2020 Episodic Other non-traumatic joint disorders (17 sources) Bilateral chronic pain of upper limbs; Translations: [Pain in right shoulder] Onset: 6 03-29-2016 Episodic Other screening for suspected conditions (not mental disorders or infectious disease) (20 sources) Other specified abnormal findings of blood chemistry; Translations: [Other abnormal blood chemistry] Onset: 2 Episodic Other skin disorders (16 sources) Eruption; Translations: [Rash and other nonspecific skin eruption] Onset: 4 06-30-2014 Episodic Spondylosis; intervertebral disc disorders; other back problems (20 sources) Cervicalgia; Translations: [Neck pain] Onset: 2 10-07-2011 Episodic Unclassified (1 source) COUGH, UNSPECIFIED; Translations: [COUGH, UNSPECIFIED] Onset: 2 Viral infection (17 sources) Postherpetic neuralgia; Translations: [Other postherpetic nervous system involvement] Onset: 6 03-29-2016 Episodic Results Test Name Value Interpretation Reference Range Facility XR HAND 3V PA/LAT/OBL [facility] 06-06-2024 XR HAND 3V PA/LAT/OBL [facility]IC[facility] * * *Final Report* * * DATE OF EXAM: Jun 06 2024 9:32AM [id number] [id number] - XR HAND 3V PA/LAT/OBL ALIC[facility] / PROCEDURE REASON: multiple diagnoses * * * * Physician Interpretation * * * * EXAM: XR HAND 3V PA/LAT/OBL [facility] HISTORY: Trigger middle finger of right hand Bilateral hand pain Bilateral hand pain . BILATERAL HAND PAIN, TRIGGER FINGER IN RIGHT MIDDLE FINGER, HX OF RHEUMATOID ARTHRITIS TECHNIQUE: XR HAND 3V PA/LAT/OBL [facility] Laterality: BILATERAL Number of different views (projections): 3 COMPARISON: 07/16/2018 RESULT: Bones: No fracture or dislocation is present. Joints: Imaging features of inflammatory arthritis with severe radiocarpal, intercarpal, carpometacarpal, and metacarpal phalangeal joint space loss with scattered erosions most prominent involving the wrists bilaterally. Erosions are predominantly peripherally sclerotic in keeping with chronicity. Findings have intervally progressed since the prior examination particularly about the wrists with further joint space loss. There are scattered chronic erosions about the metacarpal heads similar to the previous exam. Soft tissue: Normal. IMPRESSION: Mild interval progression of inflammatory arthritis. Artificial Intelligence Specialist: SUSANA Transcribe Date/Time: Jun 07 2024 4:27P Dictated by : VINH RUIZ MD This examination was interpreted and the report reviewed and electronically signed by: VINH RUIZ MD on Jun 07 2024 4:36PM EST [id number] Normal [facility] CNOVon 05-18-2024 CNOV Office Visit (KATHLEEN ) HOSSEINLESA ([id number]) 1960 F Date Time Provider Department 05/18/24 10:20 AM PEPE CARTER During your visit today, we recorded the following information about you: Pulse Blood pressure Weight 90/minute 155/91 66.2 kg Pepe Carter MD 05/18/2024 10:40 AM Addendum May apply over the counter arthritis cream (biofreeze, icy hot, asper cream, tiger balm, capsacin, etc.) to painful joints up to four times a day. Avoid contact with eyes. May take ES acetaminophen 500mg every 4-6hours for joint pain. Do not exceed 2000mg /day. take calcium with food as instructed Take vitamin D script with food. No response lyrica OFF Hydroxychloroquine/Plaq uenil/humira/xeljanz Methotrexate 10tabs once a week or 1ml sq injection food every other a week (HOLD 1-2weeks after vaccines) Do not drink alcohol while taking methotrexate Have bloodwork every 8-12weeks for monitoring while taking Methotrexate Please take folic acid 1mg tab:Take 1tab by mouth daily SSZ 500mg tab 3times a day Restart Rinvoq daily by mouth arava/leflunamide daily with [...] pain nonfasting bloodwork as scheduled Thank you. Latest Ref Rng 11/23/2023 05/14/2024 Protein, Total 6.3 - 8.0 g/dL 7.9 7.7 Albumin 3.9 - 4.9 g/dL 4.5 4.1 Calcium 8.5 - 10.2 mg/dL 9.4 9.7 Bilirubin, Total 0.2 - 1.3 mg/dL 0.3 0.3 Alkaline Phosphatase 34 - 123 U/L 79 85 AST 13 - 35 U/L 25 27 ALT 7 - 38 U/L 25 33 Glucose 74 - 99 mg/dL 146 (H) 237 (H) BUN 7 - 21 mg/dL 16 19 Creatinine 0.58 - 0.96 mg/dL 0.72 0.74 Sodium 136 - 144 mmol/L 140 139 Potassium 3.7 - 5.1 mmol/L 3.9 3.6 (L) Chloride 98 - 107 mmol/L 100 98 CO2 22 - 30 mmol/L 27 31 (H) Anion Gap 8 - 15 mmol/L 13 10 eGFR >=60 mL/min/1.73m? 94 90 WBC 3.70 - 11.00 k/uL 8.77 7.63 RBC 3.90 - 5.20 m/uL 4.43 4.60 Hemoglobin 11.5 - 15.5 g/dL 13.5 13.6 Hematocrit 36.0 - 46.0 % 40.3 39.1 MCV 80.0 - 100.0 fL 91.0 85.0 MCH 26.0 - 34.0 pg 30.5 29.6 MCHC 30.5 - 36.0 g/dL 33.5 34.8 RDW-CV 11.5 - 15.0 % 14.2 12.5 Platelet Count 150 - 400 k/uL 302 319 MPV 9.0 - 12.7 fL 10.2 10.0 Absolute nRBC <0.01 k/uL <0.01 <0.01 TB Nil <=8.00 IU/mL 0.17 TB1 Ag minus Nil <0.35 IU/mL 0.13 TB2 Ag minus Nil <0.35 IU/mL 0.13 TB Result Negative Mitogen minus Nil >=0.50 IU/mL >9.83 TB Interpretation Infection with M. tuberculosis complex is unlikely. If latent tuberculosis infection is highly suspected, a negative result does not rule out the infection. Specimens from immunocompromised patients and those <5 years of age may show false negative results. In case of a contact investigation, please repeat 8-12 weeks after a known exposure. WSR 0 - 20 mm/hr 15 37 (H) CRP <0.9 mg/dL 0.7 0.6 Vitamin D 25 Hydroxy 31.0 - 80.0 ng/mL 34.8 30.0 (L) Vitamin B12 232 - 1,245 pg/mL 1,203 Moisturizing treatments Stimulating saliva -- Simply sucking on sugarless candy or dried fruit slices (eg, peaches or nectarines) can stimulate the flow of saliva in many patients. [place] flavored sugarless tablets and sugar-free chewing gum [...] may not stock this treatment, patients should conta (more content not included)... Normal [facility] 05-15-2024 RENEE Telephone (CHAD) ELSA CATALAN ([id number]) 1960 F Date Time Provider Department 05/15/24 PEPE CARTER During your visit today, we recorded the following information about you: Pepe Carter MD 05/15/2024 7:55 PM Signed Please Call patient if MyChart note not read to review results/released to My Chart if tests completed at [facility]: high glucose- will monitor with primary care provider. Mildly low potassium- increase potassium intake, care per primary care provider. Low vitamin D maybe associated with fatigue/joint/muscle pain. Start vitamin D script with food, then take over the counter vitamin D 5000 International Units daily with food after script completed. One mildly high inflammatory test- will monitor Rest of labs stable New script sent to pharmacy. Notify office if medication change is not tolerated. Recheck nonfasting labs in 3months, orders have been placed.. Happy to further review and discuss at follow up visit. Continue rest of treatment plan per instructions at last office visit. Thank you. 05/14/24 high glucose 237, esr 37;low vitamin D 30, potassium 3.6;normal rest of cbc, cmp, crp 0.6; 05/14/24 patient having more pain and wants to restart rinvoq 12/29/23 per patient getting recurring sinus and throat infections, ok to hold rinvoq x 3months to see if infections still occur, if yes, please see primary care provider/ENT/immunology 11/23/23 high glucose 146;normal rest of cmp, cbc, esr 15, crp 0.7, vitamin D 34.8, vitamin [id number];negative quantiferon tb; Patient's request for medication is as follows: Requested Prescriptions Signed Prescriptions Disp Refills ergocalciferol 50,000 unit capsule (VITAMIN D2, DRISDOL) 16 capsule 0 Sig: (take by mouth with food twice a week, ONE CAPSULE ON MONDAY AND ONE ON MONDAY) FOR A TOTAL OF 8 WEEKS. Authorizing Provider: PEPE CARTER Prescription(s) as above. Please process accordingly. MD Bradley Conroy Kathryn M, MA 05/16/2024 8:53 AM Signed Notified patient of below, verbal understanding. Allergies As of Date: 05/15/2024 Noted Allergy Reaction CIPROFLOXACIN 12/23/2016 2 - [...] protein (CRP) [R79.82] Vitamin D deficiency [E55.9] Order(s):ergocalciferol 50,000 unit capsule (VITAMIN D2, DRISDOL)(take by mouth with food twice a week, ONE CAPSULE ON MONDAY AND ONE ON MONDAY) FOR A TOTAL OF 8 WEEKS.Disp: 16 capsuleRfl: 0 COMPREHENSIVE METABOLIC PANEL [SQCMP] Order #: [id number] FUTURE COMPLETE BLOOD COUNT [SQCBC] Order #: [id number] FUTURE SEDIMENTATION RATE, WESTERGREN [SQWSR] Order #: [id number] FUTURE C-REACTIVE PROTEIN [SQCRP] Order #: [id number] FUTURE VITAMIN D 25 HYDROXY [SQVITD] Order #: [id number] FUTURE Prescriptions as of 05/16/2024 - ergocalciferol 50,000 unit capsule (VITAMIN D2, DRISDOL) (take by mouth with food twice a week, ONE CAPSULE ON MONDAY AND ONE ON MONDAY) FOR A TOTAL OF 8 WEEKS. - leflunomide (ARAVA) 20 mg tablet Take 1tab daily by mouth with food. Hold in on antibiotics or ill. - methotrexate sodium 25 mg/mL soln Sq 1ml injection once a week. No alcohol. Hold if on antibiotics or ill. - sulfaSALAzine EC (AZULFIDINE EN-TABS) 500 mg EC tablet Take 1 tablet by mouth three times a day. - methotrexate 2.5 mg tablet TAKE 10 TABS ONCE A WEEK with food. No alcohol. Hold if on antibiotics or ill. Hold 1-2weeks after vaccines. - VITAMIN B COMPLEX ORAL Take by mouth. - Syringe with Needle, Disp, (BD SYRINGE) 1 mL 25 gauge x 5/8 To use with Methotrexate Sodium injection. 1ml weekly SQ - folic acid 1 mg tablet Take [...] Take by mouth. - simvastatin (ZOCOR) 20 (more content not included)... Normal [facility] 25(OH)D3 SerPl-mCncon 2023 25-hydroxyvitamin D3 [Mass/Vol] 30.0 ng/mL Low 31.0-80.0 [facility] Comment on above: Order Comment: Vivek sanchez Type: BLOOD SPECIMEN Ordering Facility: [facility] Address: [address] [place] [address] Result Comment: Clas sification of 25 [place] Vitamin D status: Deficiency/Insufficiency: < or = 30 ng/ml. Sufficiency/Optimal Levels: 31-80 ng/mL Toxicity: > 100 ng/mL. Test performed by chemiluminescent immunoassay. Performed By: #### 1 989-3 #### [facility] CLIA [id number] [address] [place] [address] [place] CBC panel Auto (Bld)on 05-14 Erythrocyte distribution width (RBC) [Ratio] 12.5 % Normal 11.5-15.0 [facility] Comment on above: Order Comment: Vivek sanchez Type: BLOOD SPECIMEN Ordering Facility: [facility] Address: [address] [place] [address] Performed By: #### 5 8410-2, 4537-7 #### [facility] CLIA [id number] [address] [place] [address] [place] Hematocrit (Bld) [Volume fraction] 39.1 % Normal 36.0-46.0 [facility] Comment on above: Order Comment: Vivek sanchez Type: BLOOD SPECIMEN Ordering Facility: [facility] Address: [address] [place] [address] Performed By: #### 5 8410-2, 4537-7 #### [facility] CLIA [id number] [address] [place] [address] [place] Hemoglobin (Bld) [Mass/Vol] 13.6 g/dL Normal 11.5-15.5 [facility] Comment on above: Order Comment: Speci men Type: BLOOD SPECIMEN Ordering Facility: [facility] Address: [address] [place] [address] Performed By: #### 5 8410-2, 4537-7 #### [facility] CLIA [id number] [address] [place] [address] [place] MCH (RBC) [Entitic mass] 29.6 pg Normal 26.0-34.0 [facility] Comment on above: Order Comment: Speci men Type: BLOOD SPECIMEN Ordering Facility: [facility] Address: [address] [place] [address] Performed By: #### 5 8410-2, 4537-7 #### [facility] CLIA [id number] [address] [place] [address] [place] MCHC (RBC) [Mass/Vol] 34.8 g/dL Normal 30.5-36.0 [facility] Comment on above: Order Comment: Speci men Type: BLOOD SPECIMEN Ordering Facility: [facility] Address: [address] [place] [address] Performed By: #### 5 8410-2, 4537-7 #### [facility] CLIA [id number] [address] [place] [address] [place] MCV (RBC) [Entitic vol] 85.0 fL Normal 80.0-100.0 [facility] Comment on above: Order Comment: Speci men Type: BLOOD SPECIMEN Ordering Facility: [facility] Address: [address] [place] [address] Performed By: #### 5 8410-2, 4537-7 #### [facility] CLIA [id number] [address] [place] [address] [place] Nucleated RBC (Bld) [#/Vol] 10*3/uL Normal <0.01 [facility] Comment on above: Order Comment: Speci men Type: BLOOD SPECIMEN Ordering Facility: [facility] Address: [address] [place] [address] Performed By: #### 5 8410-2, 4537-7 #### [facility] CLIA [id number] [address] [place] [address] [place] Platelet mean volume (Bld) [Entitic vol] 10.0 fL Normal 9.0-12.7 [facility] Comment on above: Order Comment: Speci men Type: BLOOD SPECIMEN Ordering Facility: [facility] Address: [address] [place] [address] Performed By: #### 5 8410-2, 4537-7 #### [facility] CLIA [id number] [address] [place] [address] [place] Platelets (Bld) [#/Vol] 319 10*3/uL Normal 150-400 [facility] Comment on above: Order Comment: Speci men Type: BLOOD SPECIMEN Ordering Facility: [facility] Address: [address] [place] [address] Performed By: #### 5 8410-2, 4537-7 #### [facility] CLIA [id number] [address] [place] [address] [place] RBC (Bld) [#/Vol] 4.60 10*6/uL Normal 3.90-5.20 [facility] Comment on above: Order Comment: Speci men Type: BLOOD SPECIMEN Ordering Facility: [facility] Address: [address] [place] [address] Performed By: #### 5 8410-2, 4537-7 #### [facility] CLIA [id number] [address] [place] [address] [place] WBC (Bld) [#/Vol] 7.63 10*3/uL Normal 3.70-11.00 [facility] Comment on above: Order Comment: Speci men Type: BLOOD SPECIMEN Ordering Facility: [facility] Address: [address] [place] [address] Performed By: #### 5 8410-2, 4537-7 #### [facility] CLIA [id number] [address] [place] [address] [place] CRP SerPl-mCncon 05-14-2024 CRP [Mass/Vol] 0.6 mg/dL Normal <0.9 [facility] Comment on above: Order Comment: Speci men Type: BLOOD SPECIMEN Ordering Facility: [facility] Address: [address] [place] [address] Performed By: #### 1 989-3 #### [facility] CLIA [id number] [address] [place] [address] [place] Comprehensive metabolic 2000 panelon 05-14-2024 Albumin [Mass/Vol] 4.1 g/dL Normal 3.9-4.9 [facility] Comment on above: Order Comment: Speci men Type: BLOOD SPECIMEN Ordering Facility: [facility] Address: [address] [place] [address] Performed By: #### 1 989-3 #### [facility] CLIA [id number] [address] [place] [address] [place] ALP [Catalytic activity/Vol] 85 U/L Normal 34-123 [facility] Comment on above: Order Comment: Speci men Type: BLOOD SPECIMEN Ordering Facility: [facility] Address: [address] [place] [address] Performed By: #### 1 989-3 #### [facility] CLIA [id number] [address] [place], [place] [id number] [place] ALT [Catalytic activity/Vol] 33 U/L Normal 7-38 [facility] Comment on above: Order Comment: Speci men Type: BLOOD SPECIMEN Ordering Facility: [facility] Address: [address] [place] [address] Performed By: #### 1 989-3 #### [facility] CLIA [id number] [address] [place] [address] [place] Anion gap [Moles/Vol] 10 mmol/L Normal 8-15 [facility] Comment on above: Order Comment: Speci men Type: BLOOD SPECIMEN Ordering Facility: [facility] Address: [address] [place] [address] Performed By: #### 1 989-3 #### [facility] CLIA [id number] [address] [place] [address] [place] AST [Catalytic activity/Vol] 27 U/L Normal 13-35 [facility] Comment on above: Order Comment: Speci men Type: BLOOD SPECIMEN Ordering Facility: [facility] Address: [address] [place] [address] Performed By: #### 1 989-3 #### [facility] CLIA [id number] [address] [place] [address] [place] Bilirubin [Mass/Vol] 0.3 mg/dL Normal 0.2-1.3 [facility] Comment on above: Order Comment: Speci men Type: BLOOD SPECIMEN Ordering Facility: [facility] Address: [address] [place] [address] Performed By: #### 1 989-3 #### [facility] CLIA [id number] [address] [place] [address] [place] Calcium [Mass/Vol] 9.7 mg/dL Normal 8.5-10.2 [facility] Comment on above: Order Comment: Speci men Type: BLOOD SPECIMEN Ordering Facility: [facility] Address: [address] [place] [address] Performed By: #### 1 989-3 #### [facility] CLIA [id number] [address] [place] [address] [place] Chloride [Moles/Vol] 98 mmol/L Normal 98-107 [facility] Comment on above: Order Comment: Speci men Type: BLOOD SPECIMEN Ordering Facility: [facility] Address: [address] [place] [address] Performed By: #### 1 989-3 #### [facility] CLIA [id number] [address] [place] [address] [place] CO2 [Moles/Vol] 31 mmol/L High 22-30 [facility] Comment on above: Order Comment: Speci men Type: BLOOD SPECIMEN Ordering Facility: [facility] Address: [address] [place] [address] Performed By: #### 1 989-3 #### [facility] CLIA [id number] [address] [place] [address] [place] Creatinine [Mass/Vol] 0.74 mg/dL Normal 0.58-0.96 [facility] Comment on above: Order Comment: Speci men Type: BLOOD SPECIMEN Ordering Facility: [facility] Address: [address] [place] [address] Performed By: #### 1 989-3 #### [facility] CLIA [id number] [address] [place] [address] [place] Creatinine and Glomerular filtration rate.predicted panel (S/P/Bld) 90 mL/min/1.73m??? Normal >=60 [facility] Comment on above: Order Comment: Speci men Type: BLOOD SPECIMEN Ordering Facility: [facility] Address: [address] [place] [address] Result Comment: Carrie mated Glomerular Filtration Rate [...] reflect actual GFR. Performed By: #### 1 989-3 #### [facility] CLIA [id number] [address] [place] [address] [place] Glucose [Mass/Vol] 237 mg/dL High 74-99 [facility] Comment on above: Order Comment: Speci laura Type: BLOOD SPECIMEN Ordering Facility: [facility] Address: [address] [place] [address] Result Comment: The [place] [employer] (ADA) provides guidance for cutoff [...] Standards of Medical Care in Diabetes 2016, [place] [employer]. Diabetes Care. 2016.39(Suppl 1). Performed By: #### 1 989-3 #### [facility] CLIA [id number] [address] [place] [address] [place] Potassium [Moles/Vol] 3.6 mmol/L Low 3.7-5.1 [facility] Comment on above: Order Comment: Vivek sanchez Type: BLOOD SPECIMEN Ordering Facility: [facility] Address: [address] [place] [address] Performed By: #### 1 989-3 #### [facility] CLIA [id number] [address] [place] [address] [place] Protein [Mass/Vol] 7.7 g/dL Normal 6.3-8.0 [facility] Comment on above: Order Comment: Vivek sanchez Type: BLOOD SPECIMEN Ordering Facility: [facility] Address: [address] [place] [address] Performed By: #### 1 989-3 #### [facility] CLIA [id number] [address] [place] [address] [place] Sodium [Moles/Vol] 139 mmol/L Normal 136-144 [facility] Comment on above: Order Comment: Speci men Type: BLOOD SPECIMEN Ordering Facility: [facility] Address: [address] [place] [address] Performed By: #### 1 989-3 #### [facility] CLIA [id number] [address] [place] [address] [place] Urea nitrogen [Mass/Vol] 19 mg/dL Normal 7-21 [facility] Comment on above: Order Comment: Speci men Type: BLOOD SPECIMEN Ordering Facility: [facility] Address: [address] [place] [address] Performed By: #### 1 989-3 #### [facility] CLIA [id number] [address] [place] [address] [place] ESR Westergren method (Bld) [Velocity]on 05-14-2024 ESR (Bld) [Velocity] 37 mm/h High 0-20 [facility] Comment on above: Order Comment: Speci men Type: BLOOD SPECIMEN Ordering Facility: [facility] Address: [address] [place] [address] Performed By: #### 1 989-3 #### [facility] CLIA [id number] [address] [place] [address] [place] CNPTiny 12-29-2023 CNPN Telephone (CHAD) ELSA CATALAN ([id number]) 1960 F Date Time Provider Department 12/29/23 PEPE CARTER During your visit today, we recorded the following information about you: Rose Lindsay 12/29/2023 1:42 PM Lv Pugh is calling Pepe Carter MD today to stating that she has re occurring sinus and throat issues every month and it was suggested to ask if the medication upadacitinib (RINVOQ) Tb24 tablet could have anything to do with these symptoms. Please call patient to advise. Patient has been identified by name and birthdate. Duration of symptoms: 3-4 months Person calling: self Call patient at: on cell [phone] (home) [phone] (cell) Was an appointment scheduled: No Closing statement: Symptom Call: Thank you for calling [facility], your call is very important. A nurse will call in approximately 2-4 hours during business hours. If this is an emergency, please contact 911. Rose Freitas Pss Pepe Carter MD 12/30/2023 1:32 PM Signed Please call patient. Thank you for the update. Sorry to hear about your discomfort. May hold rinvoq. If symptoms persist or worsen, please see primary care provider/ENT for further evaluation and care recommendations. Please notify office of progress update. Hope you feel better soon! Warm regards, :) Lauren Galo MA 01/01/2024 9:28 AM Signed Lm regarding results and recommendations sent via [employer]. Suri Rico, RN 01/01/2024 12:04 PM Signed Patient calling in to office. Verified by name and . Reviewed below with patient, who verbalizes understanding. Patient inquiring how long it is OK for her to hold the medication. Pepe Carter MD 01/01/2024 5:54 PM Signed Please call patient. Thank you for the update. May try holding medication x 3months, but if infections still occur off medication, may see primary care provider/ENT or immunology for recurrent infections. FYI Rheumatoid arthritis symptoms may flare while off rinvoq. Notify office of progress update. Hope you feel better soon! Warm Dr.Tsai surinder :) Lauren Galo MA 01/02/2024 9:14 AM Signed LMTCB Lesli Navarro LPN 01/04/2024 8:33 AM Signed Left below message as VM at number listed for patient. Allergies As of Date: 12/29/2023 Noted Allergy Reaction CIPROFLOXACIN 12/23/2016 2 - Rash Anesthetics [Other] 12/06/2002 Comments: problems awakening AND gi upset with general INDOMETHACIN 12/06/2002 Comments: (Indocin) extremely high temperature elevation PENICILLIN G 12/06/2002 Comments: rash PROPOXYPHENE 12/06/2002 Comments: pt. not sure Date Reviewed: 11/23/2023 Reviewed by: Pepe Carter MD - Fully Assessed Reason for Visit: Patient Question [1477] Prescriptions as of 01/04/2024 - methotrexate 2.5 mg tablet TAKE 10 [...] 100 unit/mL Inject subcutaneously. - insulin glargine (L (more content not included)... Normal [facility] 11-27-2023 [facility] ELSA CATALAN ([id number]) 1960 F Date Time Provider Department 11/27/23 PEPE CARTER During your visit today, we recorded the following information about you: Pepe Carter MD 01/01/2024 5:56 PM Addendum Please Call patient if MyChart note not read to review results/released to My Chart if tests completed at [facility]: Borderline glucose- will monitor with primary [...] instructions at last office visit. Thank you. 12/29/23 per patient getting recurring sinus and throat infections, ok to hold rinvoq x 3months to see if infections still occur, if yes, please see primary care provider/ENT/immunology 11/23/23 high glucose 146;normal rest of cmp, cbc, esr 15, crp 0.7, vitamin D 34.8, vitamin n80-0876;negative quantiferon tb; Lauren Galo MA 11/27/2023 8:45 [...] [E55.9] Order(s):COMP METABOLIC PANEL [SQCMP] Order #: [id number] FUTURE CBC [SQCBC] Order #: [id number] FUTURE SED RATE WESTERGREN [SQWSR] Order #: [id number] FUTURE C-REACTIVE PROTEIN (CRP) [SQCRP] Order #: [id number] FUTURE VITAMIN D 25 HYDROXY [SQVITD] Order #: [id number] FUTURE Prescriptions as of 01/01/2024 - methotrexate 2.5 mg tablet TAKE 10 [...] Take 1 tablet by mouth once daily. Prob (more content not included)... Normal [facility] 25(OH)D3 SerPl-mCncon 2023 25-hydroxyvitamin D3 [Mass/Vol] 34.8 ng/mL Normal 31.0-80.0 [facility] Comment on above: Order Comment: Vivek sanchez Type: BLOOD SPECIMEN Ordering Facility: [facility] Address: [address] [place] [address] Result Comment: Clas sification of 25 [place] Vitamin D status: Deficiency/Insufficiency: < or = 30 ng/ml. Sufficiency/Optimal Levels: 31-80 ng/mL Toxicity: > 100 ng/mL. Test performed by chemiluminescent immunoassay. Performed By: #### 5 8410-2, 4537-7 #### [facility] CLIA [id number] [address] [place] [address] STATES [place] [facility] BLOOD TB SCREENon 11-23-2023 M. tuberculosis tuberculin stim IFN-g Ql (Bld) Negative Normal [facility] Comment on above: Order Comment: Vivek sanchez Type: BLOOD SPECIMEN Ordering Facility: [facility] Address: [address] [place] [address] Performed By: #### I NFTBP #### [facility] CLIA [id number] [address] [place] [address] [place] MITOGEN MINUS NIL >9.83 Normal >=0.50 [facility] Comment on above: Order Comment: Vivek sanchez Type: BLOOD SPECIMEN Ordering Facility: [facility] Address: [address] [place] [address] Performed By: #### I NFTBP #### [facility] CLIA [id number] [address] [place] [address] [place] TB GAMMA INTERPRETATION Infection with M. tuberculosis complex is unlikely. If latent tuberculosis infection is highly suspected, a negative result does not rule out the infection. Specimens from immunocompromised patients and those <5 years of age may show false negative results. In case of a contact investigation, please repeat 8-12 weeks after a known exposure. Normal [facility] Comment on above: Order Comment: Speci men Type: BLOOD SPECIMEN Ordering Facility: [facility] Address: [address] [place] [address] Performed By: #### I NFTBP #### [facility] CLIA [id number] [address] [place] [address] [place] TB NIL 0.17 IU/mL Normal <=8.00 [facility] Comment on above: Order Comment: Speci men Type: BLOOD SPECIMEN Ordering Facility: [facility] Address: [address] [place] [address] Performed By: #### I NFTBP #### [facility] CLIA [id number] [address] [place] [address] [place] TB1 AG MINUS NIL 0.13 IU/mL Normal <0.35 [facility] Comment on above: Order Comment: Speci men Type: BLOOD SPECIMEN Ordering Facility: [facility] Address: [address] [place] [address] Performed By: #### I NFTBP #### [facility] CLIA [id number] [address] [place] [address] [place] TB2 AG MINUS NIL 0.13 IU/mL Normal <0.35 [facility] Comment on above: Order Comment: Speci men Type: BLOOD SPECIMEN Ordering Facility: [facility] Address: [address] [place] [address] Performed By: #### I NFTBP #### [facility] CLIA [id number] [address] [place] [address] [place] CBC panel Auto (Bld)on 11-23 Erythrocyte distribution width (RBC) [Ratio] 14.2 % Normal 11.5-15.0 [facility] Comment on above: Order Comment: Speci men Type: BLOOD SPECIMEN Ordering Facility: [facility] Address: [address] [place] [address] Performed By: #### 5 8410-2, 4537-7 #### [facility] CLIA [id number] [address] [place] [address] [place] Hematocrit (Bld) [Volume fraction] 40.3 % Normal 36.0-46.0 [facility] Comment on above: Order Comment: Speci men Type: BLOOD SPECIMEN Ordering Facility: [facility] Address: [address] [place] [address] Performed By: #### 5 8410-2, 4537-7 #### [facility] CLIA [id number] [address] [place] [address] [place] Hemoglobin (Bld) [Mass/Vol] 13.5 g/dL Normal 11.5-15.5 [facility] Comment on above: Order Comment: Speci men Type: BLOOD SPECIMEN Ordering Facility: [facility] Address: [address] [place] [address] Performed By: #### 5 8410-2, 4537-7 #### [facility] CLIA [id number] [address] [place] [address] [place] MCH (RBC) [Entitic mass] 30.5 pg Normal 26.0-34.0 [facility] Comment on above: Order Comment: Speci men Type: BLOOD SPECIMEN Ordering Facility: [facility] Address: [address] [place] [address] Performed By: #### 5 8410-2, 4537-7 #### [facility] CLIA [id number] [address] [place] [address] [place] MCHC (RBC) [Mass/Vol] 33.5 g/dL Normal 30.5-36.0 [facility] Comment on above: Order Comment: Speci men Type: BLOOD SPECIMEN Ordering Facility: [facility] Address: [address] [place] [address] Performed By: #### 5 8410-2, 4537-7 #### [facility] CLIA [id number] [address] [place] [address] [place] MCV (RBC) [Entitic vol] 91.0 fL Normal 80.0-100.0 [facility] Comment on above: Order Comment: Speci men Type: BLOOD SPECIMEN Ordering Facility: [facility] Address: [address] [place] [address] Performed By: #### 5 8410-2, 4537-7 #### [facility] CLIA [id number] [address] [place] [address] [place] Nucleated RBC (Bld) [#/Vol] 10*3/uL Normal <0.01 [facility] Comment on above: Order Comment: Speci men Type: BLOOD SPECIMEN Ordering Facility: [facility] Address: [address] [place] [address] Performed By: #### 5 8410-2, 4537-7 #### [facility] CLIA [id number] [address] [place] [address] [place] Platelet mean volume (Bld) [Entitic vol] 10.2 fL Normal 9.0-12.7 [facility] Comment on above: Order Comment: Speci men Type: BLOOD SPECIMEN Ordering Facility: [facility] Address: [address] [place] [address] Performed By: #### 5 8410-2, 4537-7 #### [facility] CLIA [id number] [address] [place] [address] [place] Platelets (Bld) [#/Vol] 302 10*3/uL Normal 150-400 [facility] Comment on above: Order Comment: Speci men Type: BLOOD SPECIMEN Ordering Facility: [facility] Address: [address] [place] [address] Performed By: #### 5 8410-2, 4537-7 #### [facility] CLIA [id number] [address] [place] [address] [place] RBC (Bld) [#/Vol] 4.43 10*6/uL Normal 3.90-5.20 [facility] Comment on above: Order Comment: Speci men Type: BLOOD SPECIMEN Ordering Facility: [facility] Address: [address] [place] [address] Performed By: #### 5 8410-2, 4537-7 #### [facility] CLIA [id number] [address] [place] [address] [place] WBC (Bld) [#/Vol] 8.77 10*3/uL Normal 3.70-11.00 [facility] Comment on above: Order Comment: Speci men Type: BLOOD SPECIMEN Ordering Facility: [facility] Address: [address] [place] [address] Performed By: #### 5 8410-2, 4537-7 #### [facility] CLIA [id number] [address] [place] [address] [place] CNOVon 11-23-2023 CNOV Office Visit (CHAD ) ELSA CATALAN ([id number]) 1960 F Date Time Provider Department 11/23/23 [...] the flow of saliva in many patients. [place] flavored sugarless tablets and sugar-free chewing gum [...] dry e (more content not included)... Normal [facility] CRP SerPl-mCncon 11-23-2023 CRP [Mass/Vol] 0.7 mg/dL Normal <0.9 [facility] Comment on above: Order Comment: Vivek sanchez Type: BLOOD SPECIMEN Ordering Facility: [facility] Address: [address] [place] [address] Performed By: #### 1 989-3 #### [facility] CLIA [id number] [address] [place] [address] [place] Comprehensive metabolic 2000 panelon 11-23-2023 Albumin [Mass/Vol] 4.5 g/dL Normal 3.9-4.9 [facility] Comment on above: Order Comment: Vivek sanchez Type: BLOOD SPECIMEN Ordering Facility: [facility] Address: [address] [place] [address] Performed By: #### 1 989-3 #### [facility] CLIA [id number] [address] [place] [address] [place] ALP [Catalytic activity/Vol] 79 U/L Normal 34-123 [facility] Comment on above: Order Comment: Vivek sanchez Type: BLOOD SPECIMEN Ordering Facility: [facility] Address: [address] [place] [address] Performed By: #### 1 989-3 #### [facility] CLIA [id number] [address] [id number] [address] [place] ALT [Catalytic activity/Vol] 25 U/L Normal 7-38 [facility] Comment on above: Order Comment: Speci men Type: BLOOD SPECIMEN Ordering Facility: [facility] Address: [address] [place] [address] Performed By: #### 1 989-3 #### [facility] CLIA [id number] [address] [place] [address] [place] Anion gap [Moles/Vol] 13 mmol/L Normal 9-18 [facility] Comment on above: Order Comment: Speci men Type: BLOOD SPECIMEN Ordering Facility: [facility] Address: [address] [place] [address] Performed By: #### 1 989-3 #### [facility] CLIA [id number] [address] [place] [address] [place] AST [Catalytic activity/Vol] 25 U/L Normal 13-35 [facility] Comment on above: Order Comment: Speci men Type: BLOOD SPECIMEN Ordering Facility: [facility] Address: [address] [place] [address] Performed By: #### 1 989-3 #### [facility] CLIA [id number] [address] [place] [address] [place] Bilirubin [Mass/Vol] 0.3 mg/dL Normal 0.2-1.3 [facility] Comment on above: Order Comment: Speci men Type: BLOOD SPECIMEN Ordering Facility: [facility] Address: [address] [place] [id number] Performed By: #### 1 989-3 #### [facility] CLIA [id number] [address] [place] [address] [place] Calcium [Mass/Vol] 9.4 mg/dL Normal 8.5-10.2 [facility] Comment on above: Order Comment: Speci men Type: BLOOD SPECIMEN Ordering Facility: [facility] Address: [address] [place], [place] [address] Performed By: #### 1 989-3 #### [facility] CLIA [id number] [facility] [place] [address] [place] Chloride [Moles/Vol] 100 mmol/L Normal 97-105 [facility] Comment on above: Order Comment: Speci men Type: BLOOD SPECIMEN Ordering Facility: [facility] Address: [address] [place] [address] Performed By: #### 1 989-3 #### [facility] CLIA [id number] [address] [place] [address] [place] CO2 [Moles/Vol] 27 mmol/L Normal 22-30 [facility] Comment on above: Order Comment: Speci men Type: BLOOD SPECIMEN Ordering Facility: [facility] Address: [address] [place] [address] Performed By: #### 1 989-3 #### [facility] CLIA [id number] [address] [place] [address] [place] Creatinine [Mass/Vol] 0.72 mg/dL Normal 0.58-0.96 [facility] Comment on above: Order Comment: Speci men Type: BLOOD SPECIMEN Ordering Facility: [facility] Address: [address] [place] [address] Performed By: #### 1 989-3 #### [facility] CLIA [id number] [address] [place] [address] [place] Creatinine and Glomerular filtration rate.predicted panel (S/P/Bld) 94 mL/min/1.73m??? Normal >=60 [facility] Comment on above: Order Comment: Speci men Type: BLOOD SPECIMEN Ordering Facility: [facility] Address: [address] [place] [address] Result Comment: Carrie mated Glomerular Filtration Rate [...] reflect actual GFR. Performed By: #### 1 989-3 #### [facility] CLIA [id number] [address] [place] [address] [place] Glucose [Mass/Vol] 146 mg/dL High 74-99 [facility] Comment on above: Order Comment: Speci men Type: BLOOD SPECIMEN Ordering Facility: [facility] Address: [address] [place] [address] Result Comment: The [place] Diabetes Association (ADA) provides guidance for cutoff [...] Standards of Medical Care in Diabetes 2016, [place] Diabetes Association. Diabetes Care. 2016.39(Suppl 1). Performed By: #### 1 989-3 #### [facility] CLIA [id number] [address] [place] [address] [place] Potassium [Moles/Vol] 3.9 mmol/L Normal 3.7-5.1 [facility] Comment on above: Order Comment: Mark Anthonyi men Type: BLOOD SPECIMEN Ordering Facility: [facility] Address: [address] [place] [address] Performed By: #### 1 989-3 #### [facility] CLIA [id number] [address] [place] [address] [place] Protein [Mass/Vol] 7.9 g/dL Normal 6.3-8.0 [facility] Comment on above: Order Comment: Speci men Type: BLOOD SPECIMEN Ordering Facility: [facility] Address: [address] [place] [address] Performed By: #### 1 989-3 #### [facility] CLIA [id number] [address] [place] [address] [place] Sodium [Moles/Vol] 140 mmol/L Normal 136-144 [facility] Comment on above: Order Comment: Speci men Type: BLOOD SPECIMEN Ordering Facility: [facility] Address: [address] [place] [address] Performed By: #### 1 989-3 #### [facility] CLIA [id number] [address] [place] [address] [place] Urea nitrogen [Mass/Vol] 16 mg/dL Normal 7-21 [facility] Comment on above: Order Comment: Speci men Type: BLOOD SPECIMEN Ordering Facility: [facility] Address: [address] [place] [address] Performed By: #### 1 989-3 #### [facility] CLIA [id number] [address] [place] [address] [place] ESR Westergren method (Bld) [Velocity]on 11-23-2023 ESR (Bld) [Velocity] 15 mm/h Normal 0-20 [facility] Comment on above: Order Comment: Speci men Type: BLOOD SPECIMEN Ordering Facility: [facility] Address: [address] [place] [address] Performed By: #### 5 8410-2, 4537-7 #### [facility] CLIA [id number] [address] [place] [address] [place] Vit B12 SerPl-mCncon 024 Cobalamin (Vitamin B12) [Mass/Vol] 1203 pg/mL Normal 232-1245 [facility] Comment on above: Order Comment: Speci men Type: BLOOD SPECIMEN Ordering Facility: [facility] Address: [address] [place] [address] Performed By: #### 1 989-3 #### [facility] CLIA [id number] [address] [place] [address] [place] Elysia 07-10-2023 BREEN Telephone (MARYSEULN) ELSA CATALAN ([id number]) 1960 F Date Time Provider Department 07/10/23 PEPE CARTER During your visit today, we recorded the following information about you: Lesli Navarro LPN 07/10/2023 2:46 PM Signed Received refill request from [employer]. Form placed on your desk for signature. Pepe Carter MD 07/10/2023 3:20 PM Signed Form completed. Please process accordingly. Scan copy into [facility]. Notify patient when above completed. Recall in script when approved if needed. Thank you. Lesli Navarro LPN 07/12/2023 7:41 AM Signed Form faxed with [...] Reason for Visit: Refill Request [94] Cmt: Phil-Rinvolawson Prescriptions as of 07/12/2023 - Cholecalciferol, Vitamin [...] medication [Z79.899] (more content not included)... Normal [facility] MG MAMM SCREEN 3D ALICIA CADon 12-07-2022 MG MAMM SCREEN 3D ALICIA CAD Patient: ELSA CATALAN Exam Date: 12/07/2022 : 1960 Gender:F Ordering : TAWANDA [employer] Admission #: [id number] Family : Order #: [id number] CLICK HERE TO VIEW EXAM RADIOLOGY REPORT PROCEDURE: MAMMOGRAM SCREENING 3D BILATERAL CAD COMPARISON: MG MAMM ALICIA DIAG W CAD, 04/30/2014. INDICATIONS: Screening mammography Calculator Name NCI Breast Cancer Risk Assessment Tool 5 Year Breast Cancer Risk 1.80% Lifetime Breast Cancer Risk 8.20% Personal Breast Cancer No Personal Ovarian Cancer No Treatments None Family Cancers None LOCATION: [facility] BREAST COMPOSITION: Heterogeneously dense,which may obscure [...] MD on 12/08/2022 at 08:08 Normal [facility] NM STRESS/REST MULTIon 11-02 NM STRESS/REST MULTI Patient: ELSA CATALAN Exam Date: 11/02/2022 : 1960 Gender:F Ordering : TAWANDA [employer]OOK [employer] Admission #: [id number] Family : Order #: [id number] CLICK HERE TO VIEW EXAM RADIOLOGY REPORT [...] MD on 11/03/2022 at 07:39 Normal [facility] Covid-19 PCR (CVDTBH)on 09-01 SARS-CoV-2 (COVID-19) RNA ISAC+probe Ql (Unsp spec) Not detected Normal NOT DETECTED [facility] Comment on above: Result Comment: This test is not yet approved or cleared by the [place] FDA. When there are no FDA-approved or cleared tests available, and other criteria are met, FDA can make tests available under an emergency access mechanism called an Emergency Use Authorization (EUA). The EUA for this test is supported by the [employer] of Health and Human Service's (HHS's) declaration [...] Performed By: #### F T3, TSH #### [facility] [address] [place] [address] Dr. Мария Horne INFLUENZA A AND B AGon 09-19 INFLUANEGH SEE BELOW Normal [facility] Comment on above: Result Comment: Nega tive for Flu A protein angiten. Infection due to Flu A cannot be ruled out. Flu A angiten in the sample may be below the detection limit of the test. Performed By: #### F T3, TSH #### [facility] [address] [place] [address] Dr. Мар[facility] BEL[facility] Normal [facility] Comment on above: Result Comment: Nega tive for Flu B protein antigen. Infection due to Flu B cannot be ruled out. Flu B antigen in the sample may be below the detection limit of the test. Performed By: #### F T3, TSH #### [facility] [address] [place] [address] Dr. Мария Horne INFLUENZA A AG Negative Normal NEGATIVE SEE COMMENT [facility] Comment on above: Performed By: #### F T3, TSH #### [facility] [address] [place] [address] Dr. Мария Horne INFLUENZA B AG Negative Normal NEGATIVE SEE COMMENT [facility] Comment on above: Performed By: #### F T3, TSH #### [facility] [address] [place] [address] Dr. Мария Horne INTERNAL CONTROLS Within Normal Limits Normal Wi thin Normal Limits [facility] Comment on above: Performed By: #### F T3, TSH #### [facility] [address] [place] [address] Dr. Мария Horne XR CHEST 2 Von [...] LATASHA HAYES Date: 2022-07-06 16:11 Normal [facility] FREE T3on 02-01-2022 FREE T3 2.58 pg/mlL Normal 2.18-3.98 [facility] Comment on above: Performed By: #### F T3, TSH #### [facility] [address] [place] [address] Dr. Мария Horne FREE T4on 02-01-2022 Free T4 [Mass/Vol] 1.25 ng/dL Normal 0.76-1.46 [facility] Comment on above: Performed By: #### F T4 #### [facility] [address] [place] [address] Dr. Мария Horne TSHon 02-01-2022 TSH 1.679 uIU/mL Normal 0.470-4.680 [facility] Comment on above: Performed By: #### F T3, TSH #### [facility] [address] [place] [address] Dr. Мария Horne TSH RANGE SEE BELOW Normal [facility] Comment on above: Result Comment: <0.3 4 UIU/ml HYPERTHYROID 0.34-5.60 UIU/ml EUTHYROID >5.60 UIU/ml HYPOTHYROID Performed By: #### F T3, TSH #### [facility] [address] [place] [address] Dr. Мария Horne AMYLASEon 01-13-2022 Amylase [Catalytic activity/Vol] 65 U/L Normal 25-115 [facility] Comment on above: Performed By: #### L IPA, JANEL #### [facility] [address] [place] [address] Dr. Мария Horne CBC AUTO DIFFon 01-13-2022 BASO # 0.1 103/ul Normal 0.0-0.1 [facility] Comment on above: Performed By: #### C BC #### [facility] [address] [place] [address] Dr. Мария Horne Basophils/100 WBC (Bld) 1.1 % Normal 0.2-2.0 [facility] Comment on above: Performed By: #### C BC #### [facility] [address] [place] [address] Dr. Мария Horne EO # 0.2 103/ul Normal 0.0-0.7 [facility] Comment on above: Performed By: #### C BC #### [facility] [address] [place] [address] Dr. Мария Horne Eosinophils/100 WBC (Bld) 2.8 % Normal 0.9-7.0 [facility] Comment on above: Performed By: #### C BC #### [facility] [address] [place] [address] Dr. Мария Horne Erythrocyte distribution width (RBC) [Ratio] 13.7 % Normal 11.0-15.0 [facility] Comment on above: Performed By: #### C BC #### [facility] [address] [place] [address] Dr. Мария Horne Hematocrit (Bld) [Volume fraction] 37.3 % Normal 36.0-48.0 [facility] Comment on above: Performed By: #### C BC #### [facility] [address] [place] [address] Dr. Мария Horne Hemoglobin (Bld) [Mass/Vol] 12.4 g/dL Normal 12.0-16.0 [facility] Comment on above: Performed By: #### C BC #### [facility] [address] [place] [address] Dr. Мария Horne IG # 0.01 10e3/ul Normal 0.00-0.03 [facility] Comment on above: Performed By: #### C BC #### [facility] [address] [place] [address] Dr. Мария Horne IG % 0.2 % Normal 0.0-0.5 [facility] Comment on above: Performed By: #### C BC #### [facility] [address] [place] [address] Dr. Мария Horne LYMPH # 2.0 103/ul Normal 1.2-3.8 [facility] Comment on above: Performed By: #### C BC #### [facility] [address] [place] [address] Dr. Мария Horne Lymphocytes/100 WBC (Bld) 33.2 % Normal 20.5-60.0 [facility] Comment on above: Performed By: #### C BC #### [facility] [address] [place] [address] Dr. Мария Horne MANUAL DIFF REQ NO Normal [facility] Comment on above: Performed By: #### C BC #### [facility] [address] [place] [address] Dr. Мраия Horne MCH (RBC) [Entitic mass] 30.0 pg Normal 26.7-34.0 [facility] Comment on above: Performed By: #### C BC #### [facility] [address] [place] [address] Dr. Мария Horne MCHC (RBC) [Mass/Vol] 33.2 g/dL Normal 29.9-35.2 [facility] Comment on above: Performed By: #### C BC #### [facility] [address] [place] [address] Dr. Мария Horne MCV (RBC) [Entitic vol] 90.1 fL Normal 81.0-99.0 [facility] Comment on above: Performed By: #### C BC #### [facility] [address] [place] [address] Dr. Мария Horne MONO # 0.9 103/ul Critically high 0.3-0.8 [facility] Comment on above: Performed By: #### C BC #### [facility] [address] [place] [address] Dr. Мария Horne Monocytes/100 WBC (Bld) 14.1 % Critically high 1.7-12.0 [facility] Comment on above: Performed By: #### C BC #### [facility] [address] [place] [address] Dr. Мария Horne NEUT # 3.0 103/ul Normal 1.4-6.5 [facility] Comment on above: Performed By: #### C BC #### [facility] [address] [place] [address] Dr. Мария Horne Neutrophils/100 WBC (Bld) 48.6 % Normal 43.0-75.0 [facility] Comment on above: Performed By: #### C BC #### [facility] [address] [place], [place] [address] Dr. Мария Horne Platelet mean volume (Bld) [Entitic vol] 9.0 fL Critically low 9.5-13.5 [facility] Comment on above: Performed By: #### C BC #### [facility] [address] [place], [place] [address] Dr. Мария Horne PLT 263 103/ul Normal 150-450 [facility] Comment on above: Performed By: #### C BC #### [facility] [address] [place] [address] [address] Мария Horne RBC 4.14 106/ul Critically low 4.20-5.40 [facility] Comment on above: Performed By: #### C BC #### [facility] [address] [place] [address] [address] Мария Horne WBC 6.1 103/ul Normal 4.0-11.0 [facility] Comment on above: Performed By: #### C BC #### [facility] [address] [place] [address] ABDOMEN W CONon CT ABDOMEN W CON EXAMINATION: CT ABDO [...] by: STU SAMUEL Date: 2022-01-13 10:05 Normal [facility] LIPASEon 01-13-2022 Lipase [Catalytic activity/Vol] 167.0 U/L Normal 23.0-300.0 [facility] Comment on above: Performed By: #### L IPA, JANEL #### [facility] [address] [place] [address] Dr. Мария Horne PROF 14(COMP METB)on 022 Albumin [Mass/Vol] 3.6 g/dL Normal 3.4-5.0 [facility] Comment on above: Performed By: #### F T3, TSH #### [facility] [address] [place] [address] Dr. Мария Horne Albumin/Globulin [Mass ratio] 0.8 {ratio} Normal [facility] Comment on above: Performed By: #### F T3, TSH #### [facility] [address] [place] [address] Dr. Мария Horne ALP [Catalytic activity/Vol] 75 U/L Normal 46-116 [facility] Comment on above: Performed By: #### F T3, TSH #### [facility] [address] [place] [address] Dr. Мария Horne ALT [Catalytic activity/Vol] 46 U/L Normal 14-59 [facility] Comment on above: Performed By: #### F T3, TSH #### [facility] [address] [place] [address] Dr. Мария Horne Anion gap [Moles/Vol] 12.2 mmol/L Normal [facility] Comment on above: Performed By: #### F T3, TSH #### [facility] [address] [place] [address] Dr. Мария Horne AST [Catalytic activity/Vol] 37 U/L Normal 15-37 [facility] Comment on above: Performed By: #### F T3, TSH #### [facility] [address] [place] [address] Dr. Мария Horne Bilirubin [Mass/Vol] 0.4 mg/dL Normal 0.2-1.3 [facility] Comment on above: Performed By: #### F T3, TSH #### [facility] [address] [place] [address] Dr. Мария Horne Calcium [Mass/Vol] 8.1 mg/dL Critically low 8.5-10.1 [facility] Comment on above: Performed By: #### F T3, TSH #### [facility] [address] [place] [address] Dr. Мария Horne Chloride [Moles/Vol] 104 mmol/L Normal 98-107 [facility] Comment on above: Performed By: #### F T3, TSH #### [facility] [address] [place] [address] Dr. Мария Horne CO2 [Moles/Vol] 27.3 mmol/L Normal 22.0-30.0 [facility] Comment on above: Performed By: #### F T3, TSH #### [facility] [address] [place] [address] Dr. Мария Horne Creatinine [Mass/Vol] 0.73 mg/dL Normal 0.52-1.04 [facility] Comment on above: Performed By: #### F T3, TSH #### [facility] [address] [place] [address] Dr. Мария Horne EGFR-AF MAURITIAN >60 Normal >=60 [facility] Comment on above: Performed By: #### F T3, TSH #### [facility] [address] [place] [address] Dr. Мария Horne EGFR-NON AF MAURITIAN >60 Normal >=60 [facility] Comment on above: Performed By: #### F T3, TSH #### [facility] [address] [place] [address] Dr. Мария Horne Globulin (S) [Mass/Vol] 4.5 g/dL Normal [facility] Comment on above: Performed By: #### F T3, TSH #### [facility] [address] [place] [address] Dr. Мария Horne Glucose [Mass/Vol] 95 mg/dL Normal 74-106 [facility] Comment on above: Performed By: #### F T3, TSH #### [facility] [address] [place] [address] [address] Мария Horne Potassium [Moles/Vol] 3.5 mmol/L Normal 3.4-5.0 [facility] Comment on above: Performed By: #### F T3, TSH #### [facility] [address] [place] [address] [address] Мария Horne Protein [Mass/Vol] 8.1 g/dL Normal 6.1-8.2 [facility] Comment on above: Performed By: #### F T3, TSH #### [facility] [address] [place] [address] [address] Мария Horne Sodium [Moles/Vol] 140 mmol/L Normal 137-145 [facility] Comment on above: Performed By: #### F T3, TSH #### [facility] [address] [place] [address] [address] Мария Horne Urea nitrogen [Mass/Vol] 15.0 mg/dL Normal 7.0-18.0 [facility] Comment on above: Performed By: #### F T3, TSH #### [facility] [address] [place] [address] Dr. Мария Horne Urea nitrogen/Creatinine [Mass ratio] 20.5 mg/mg Normal [facility] Comment on above: Performed By: #### F T3, TSH #### [facility] [address] [place] [address] Dr. Мария Horne US SINGLE QUAD RT [...] right upper quadrant. Electronically authenticated by: LATASHA HOWELL Date: 2021-12-31 10:44 Normal [facility] INSULINon 12-29-2021 Insulin 8.7 uIU/mL Normal 2.6-24.9 [facility] Comment on above: Performed By: #### I NSULIN #### [facility] [address] [place] [address] Dr. Мария Horne CBC AUTO DIFFon 12-28-2021 BASO # 0.1 103/ul Normal 0.0-0.1 [facility] Comment on above: Performed By: #### C BC #### [facility] [address] [place] [address] Dr. Мария Horne Basophils/100 WBC (Bld) 0.8 % Normal 0.2-2.0 [facility] Comment on above: Performed By: #### C BC #### [facility] [address] [place] [address] Dr. Мария Horne EO # 0.3 103/ul Normal 0.0-0.7 [facility] Comment on above: Performed By: #### C BC #### [facility] [address] [place] [address] Dr. Мария Horne Eosinophils/100 WBC (Bld) 3.2 % Normal 0.9-7.0 [facility] Comment on above: Performed By: #### C BC #### [facility] [address] [place] [address] Dr. Мария Horne Erythrocyte distribution width (RBC) [Ratio] 13.7 % Normal 11.0-15.0 [facility] Comment on above: Performed By: #### C BC #### [facility] [address] [place] [address] Dr. Мария Horne Hematocrit (Bld) [Volume fraction] 43.1 % Normal 36.0-48.0 [facility] Comment on above: Performed By: #### C BC #### [facility] [address] [place] [address] Dr. Мария Horne Hemoglobin (Bld) [Mass/Vol] 14.5 g/dL Normal 12.0-16.0 [facility] Comment on above: Performed By: #### C BC #### [facility] [address] [place] [address] Dr. Мария Horne IG # 0.02 10e3/ul Normal 0.00-0.03 [facility] Comment on above: Performed By: #### C BC #### [facility] [address] [place] [address] Dr. Мария Horne IG % 0.2 % Normal 0.0-0.5 [facility] Comment on above: Performed By: #### C BC #### [facility] [address] [place] [address] Dr. Мария Horne LYMPH # 3.0 103/ul Normal 1.2-3.8 [facility] Comment on above: Performed By: #### C BC #### [facility] [address] [place] [address] Dr. Мария Horne Lymphocytes/100 WBC (Bld) 35.8 % Normal 20.5-60.0 [facility] Comment on above: Performed By: #### C BC #### [facility] [address] [place] [address] Dr. Мария Horne MANUAL DIFF REQ NO Normal [facility] Comment on above: Performed By: #### C BC #### [facility] [address] [place] [address] Dr. Мария Horne MCH (RBC) [Entitic mass] 30.0 pg Normal 26.7-34.0 [facility] Comment on above: Performed By: #### C BC #### [facility] [address] [place] [address] Dr. Мария Horne MCHC (RBC) [Mass/Vol] 33.6 g/dL Normal 29.9-35.2 [facility] Comment on above: Performed By: #### C BC #### [facility] [address] [place] [address] Dr. Мария Horne MCV (RBC) [Entitic vol] 89.2 fL Normal 81.0-99.0 [facility] Comment on above: Performed By: #### C BC #### [facility] [address] [place] [address] Dr. Мария Horne MONO # 0.8 103/ul Normal 0.3-0.8 [facility] Comment on above: Performed By: #### C BC #### [facility] [address] [place] [address] Dr. Мария Horne Monocytes/100 WBC (Bld) 9.1 % Normal 1.7-12.0 [facility] Comment on above: Performed By: #### C BC #### [facility] [address] [place] [address] Dr. Мария Horne NEUT # 4.2 103/ul Normal 1.4-6.5 [facility] Comment on above: Performed By: #### C BC #### [facility] [address] [place] [address] Dr. Мария Horne Neutrophils/100 WBC (Bld) 50.9 % Normal 43.0-75.0 [facility] Comment on above: Performed By: #### C BC #### [facility] [address] [place] [address] Dr. Мария Horne Platelet mean volume (Bld) [Entitic vol] 9.8 fL Normal 9.5-13.5 [facility] Comment on above: Performed By: #### C BC #### [facility] [address] [place] [address] Dr. Мария Horne PLT 314 103/ul Normal 150-450 [facility] Comment on above: Performed By: #### C BC #### [facility] [address] [place] [address] Dr. Мария Horne RBC 4.83 106/ul Normal 4.20-5.40 [facility] Comment on above: Performed By: #### C BC #### [facility] [address] [place] [address] Dr. Мария Horne WBC 8.2 103/ul Normal 4.0-11.0 [facility] Comment on above: Performed By: #### C BC #### [facility] [address] [place] [address] [address] Мария Horne FREE THYROXINE INDEX T7on FTI 1.38 Normal [facility] Comment on above: Performed By: #### F T3, TSH #### [facility] [address] [place] [address] [address] Мария Horne T3U 32.0 % Normal 23.5-40.5 [facility] Comment on above: Performed By: #### F T3, TSH #### [facility] [address] [place] [address] [address] Мария Horne T4 [Mass/Vol] 4.30 ug/dL Critically low 5.53-11.00 [facility] Comment on above: Performed By: #### F T3, TSH #### [facility] [address] [place] [address] [address] Мария Horne GLYCOHEMOGLOBIN A1Con 2021 ADA RECOMMENDATION ADA THERAPEUTIC TARG ET 6.0 - 7.0 ACTION SUGGESTED > 7.0 Normal [facility] Comment on above: Performed By: #### F T3, TSH #### [facility] [address] [place] [address] [address] Мария Horne Glucose [Mass/Vol] 252 mg/dL Normal [facility] Comment on above: Performed By: #### F T3, TSH #### [facility] [address] [address] [address] Мария Horne HbA1c (Bld) [Mass fraction] 10.4 % Critically high <=6.0 [facility] Comment on above: Performed By: #### F T3, TSH #### [facility] [address] [address] [address] Мария Horne IRONon 12-28-2021 Iron [Mass/Vol] 84.0 ug/dL Normal 37.0-170.0 [facility] Comment on above: Performed By: #### I JENNIFER #### [facility] [address] [address] [address] Мария Horne LIPID PROFILEon 12-28-2021 CHOL-HDL RATIO NORM SEE BELOW Normal [facility] Comment on above: Result Comment: 3.3 - 4.4 LOW RISK 4.4 - 7.1 AVERAGE RISK 7.1 - 11.0 MODERATE RISK >11.0 HIGH RISK Performed By: #### F T3, TSH #### [facility] [address] [place], [place] [address] Dr. Мария Horne Cholesterol [Mass/Vol] 217 mg/dL Critically high <=200 [facility] Comment on above: Performed By: #### F T3, TSH #### [facility] [address] [place] [address] [address] Мария Horne Cholesterol in HDL [Mass/Vol] 47 mg/dL Normal 40-60 [facility] Comment on above: Performed By: #### F T3, TSH #### [facility] [address] [place] [address] [address] Мария Horne Cholesterol in LDL [Mass/Vol] 126.6 mg/dL Normal [facility] Comment on above: Performed By: #### F T3, TSH #### [facility] [address] [place] [address] [address] Мария Horne Cholesterol.total/C holesterol in HDL [Mass ratio] 4.6 {ratio} Normal [facility] Comment on above: Performed By: #### F T3, TSH #### [facility] [address] [place] [address] [address] Мария Horne HDL NORMAL > or = 60 mg/dl - LO W CARDIOVASCULAR RISK <40 mg/dl - HIGH CARDIOVASCULAR RISK Normal [facility] Comment on above: Performed By: #### F T3, TSH #### [facility] [address] [place] [address] [address] Мария Horne LDL CALC NORMAL SEE BELOW Normal [facility] Comment on above: Result Comment: <100 mg/dl OPTIMAL 100 - 129 mg/dl NEAR OR ABOVE OPTIMAL 130 - 159 mg/dl BORDERLINE HIGH 160 - 189 mg/dl HIGH >190 mg/dl VERY HIGH Performed By: #### F T3, TSH #### [facility] [address] [address] [address] Мария Horne Triglyceride [Mass/Vol] 217 mg/dL Critically high <=150 [facility] Comment on above: Performed By: #### F T3, TSH #### [facility] [address] [place] [address] Dr. Мария Horne VLDL CALC 43.4 mg/dL Normal [facility] Comment on above: Performed By: #### F T3, TSH #### [facility] [address] [place] [address] Dr. Мария Horne OCC BLD IMMUNO SCREENon 12-01 OCCULT BLOOD Negative Normal NEGATIVE [facility] Comment on above: Performed By: #### O BSCRN #### [facility] [address] [place] [address] Dr. Мария Horne PROF 14(COMP METB)on 022 Albumin [Mass/Vol] 3.8 g/dL Normal 3.4-5.0 [facility] Comment on above: Performed By: #### F T3, TSH #### [facility] [address] [place] [address] Dr. Мария Horne Albumin/Globulin [Mass ratio] 0.7 {ratio} Normal [facility] Comment on above: Performed By: #### F T3, TSH #### [facility] [address] [place] [address] Dr. Мария Horne ALP [Catalytic activity/Vol] 81 U/L Normal 46-116 [facility] Comment on above: Performed By: #### F T3, TSH #### [facility] [address] [place] [address] Dr. Мария Horne ALT [Catalytic activity/Vol] 36 U/L Normal 14-59 [facility] Comment on above: Performed By: #### F T3, TSH #### [facility] [address] [place] [address] Dr. Мария Horne Anion gap [Moles/Vol] 14.4 mmol/L Normal [facility] Comment on above: Performed By: #### F T3, TSH #### [facility] [address] [place] [address] Dr. Мария Horne AST [Catalytic activity/Vol] 26 U/L Normal 15-37 [facility] Comment on above: Performed By: #### F T3, TSH #### [facility] [address] [place] [address] Dr. Мария Horne Bilirubin [Mass/Vol] 0.4 mg/dL Normal 0.2-1.3 [facility] Comment on above: Performed By: #### F T3, TSH #### [facility] [address] [place] [address] Dr. Мария Horne Calcium [Mass/Vol] 8.4 mg/dL Critically low 8.5-10.[address] [facility] Comment on above: Performed By: #### F T3, TSH #### [facility] [address] [place] [address] Dr. Мария Horne Chloride [Moles/Vol] 99 mmol/L Normal 98-107 [facility] Comment on above: Performed By: #### F T3, TSH #### [facility] [address] [place] [address] Dr. Мария Horne CO2 [Moles/Vol] 28.8 mmol/L Normal 22.0-30.0 [facility] Comment on above: Performed By: #### F T3, TSH #### [facility] [address] [place] [address] Dr. Мария Horne Creatinine [Mass/Vol] 0.80 mg/dL Normal 0.52-1.04 [facility] Comment on above: Performed By: #### F T3, TSH #### [facility] [address] [place] [address] Dr. Мария Horne EGFR-AF MAURITIAN >60 Normal >=60 [facility] Comment on above: Performed By: #### F T3, TSH #### [facility] [address] [place] [address] Dr. Мария Horne EGFR-NON AF MAURITIAN >60 Normal >=60 [facility] Comment on above: Performed By: #### F T3, TSH #### [facility] [address] [place] [address] Dr. Мария Horne Globulin (S) [Mass/Vol] 5.1 g/dL Normal [facility] Comment on above: Performed By: #### F T3, TSH #### [facility] [address] [place] [address] Dr. Мария Horne Glucose [Mass/Vol] 212 mg/dL Critically high 74-106 [facility] Comment on above: Performed By: #### F T3, TSH #### [facility] [address] [place] [address] Dr. Мария Horne Potassium [Moles/Vol] 3.2 mmol/L Critically low 3.4-5.0 [facility] Comment on above: Performed By: #### F T3, TSH #### [facility] [address] [place] [address] Dr. Мария Horne Protein [Mass/Vol] 8.9 g/dL Critically high 6.1-8.2 [facility] Comment on above: Performed By: #### F T3, TSH #### [facility] [address] [place] [address] Dr. Мария Horne Sodium [Moles/Vol] 139 mmol/L Normal 137-145 [facility] Comment on above: Performed By: #### F T3, TSH #### [facility] [address] [place] [address] Dr. Мария Horne Urea nitrogen [Mass/Vol] 14.0 mg/dL Normal 7.0-18.0 [facility] Comment on above: Performed By: #### F T3, TSH #### [facility] [address] [place] [address] Dr. Мария Horne Urea nitrogen/Creatinine [Mass ratio] 17.5 mg/mg Normal [facility] Comment on above: Performed By: #### F T3, TSH #### [facility] [address] [place] [address] Dr. Мария Horne TSHon 12-28-2021 TSH 115.875 uIU/mL Critically high 0.470-4.680 [facility] Comment on above: Performed By: #### F T3, TSH #### [facility] [address] [place] [address] Dr. Мария Horne TSH RANGE SEE BELOW Normal [facility] Comment on above: Result Comment: <0.3 4 UIU/ml HYPERTHYROID 0.34-5.60 UIU/ml EUTHYROID >5.60 UIU/ml HYPOTHYROID Performed By: #### F T3, TSH #### [facility] [address] [address] [address] Мария Horne Ambulatory Clinical Summaryo n 08-18-2021 Ambulatory Clinical Summary {[id number]}CD:[id number] Normal [facility] General Surgery Office/Clini c Noteon 08-18-2021 General [...] (COVID-19) mRNA BNT-162b2 vax 07/01/2021 Recorded Normal [facility] Comment on above: Result Comment: Elec tronically Signed By: KEMAR EVANS, Lan Glass\Date and Time Signed: 08/18/21 16:32 EST Pathology Noteon 08-16-2021 Pathology Note [id number]#[id number] D:127 Normal [facility] Operative Reporton Operative Report [id number]#1.00C D:127 Normal [facility] Lab Reportson 08-09-2021 Lab Reports [id number]#[id number] D:127 Normal [facility] Provider Letter FTon 08-04 Provider [place] [facility] [place] 04[place] 2021 TAWANDA COOK, [address], [place] [address] Re: ELSA CATALAN Date of : 1960 Thank you for your referral of Elsa Catalan who was seen on July 30, 2021, for right mid-back mass. An excisional biopsy is planned. I have enclosed my consultation note for your review. I will be happy to follow Elsa. Sincerely, Lan Hough MD General Surgery [facility] Consent for Procedure/Surger yon 08-02-2021 Consent for Procedure/Surgery [id number] D:127 Normal [facility] General Surgery Office/Clini c Noteon 08-02-2021 General Surgery Office/Clinic Note CD:[id number] H80fYmxdaRbd9nfhh2nUB0g ZwIissWsSHwfOx8cp0neJG7 2je1aFiBoWt1+TanvQF8XII lQRSBo vU5eLGBVEroBQyEmRJ0dWnY FQn8LAYXaXXbBOTqsBK4vTE S0blsgyE1fGG6rZMFnaTJjH d6bc5o2 WmtfNb4uKy6JLq71xMXesRE xZZVQG3huaM9eDY2gcFByN7 DdVOLmCv2DNMn5tCiqrP0zf bE9Mmv7 oDN5Lf72z6ktmiEbr5KhVwQ 4SMdsiQb5fHnlSZjitK7uYf RyQAMAiC9ekWgiOK9eiM0tb nRhdGlv biI+LpadGSJiNnv0iLHdBW2 6X4ZpqJqhPhe3pBN4VVUzoO LxKQVfeZj9BXJLRSGNYQVqr XBhdGli nFCkYCOuhsLcqqI9DeyXALK xJqZyVpe9Y4juYDI+Cjxib2 O9Bhw6ALk2IZE9eModYAEgv 250LWZh aKvlrIzouIGrt06bPXUzxJE zQyZyt443UECwtbZ0NXfobA qiZub7dOPazKKcz4yiiBj1Z jEwMCUi GjuYPYOdoCxdl7RzMzpJQHf jr4mtheSmpGosDWV4k7XiOB srASWpEOR2OgDkCF4+CgkJP GNvbCB2 AWfsK231PzEkxLSem2mewZi 7AaH2XAWmAs5LSEzvV51nC3 JvdXA+Zmi5lVXvVWd+CgkJP HRyPgoJ IJb9wCFkp4S1nMX5UaJgxdX am2g5UPutAJL4ZfU8QTK9nZ PwpU3fcTpiqvthzT8xTcK+C gkJCTxk iMXlT7ofw1F8OsXjh6TgjXh ubtUfOPBsQlVse3krKxrnAE IryI0pRPA1OlIiEIJixRMiO UXaBF2i qsZptTRoEACxLpNdH5Mem01 sk1AlNYOCN7yUInDvFOG8IA 3tOvMsMR0dX3GtQSL5HnLnV WE4Nylg QXEoNz64U6F8IAKxXSm0JYQ jEoGoAhOvu6I9dDT6XhXcYF Ysbmc8BKPubPwbMmortENlN GNsYXNz CJBaHNQjM5Giu89jlPQgnLT 4Gv28e2ZlohNnbRzaIJ9jEq 7gtY27JTlkcQJ9AGBitAU0N HRleHQt OVIxl9SbwQygkjzysZ8xDVG huU9gGtQ+E0lcXJBhH82mdJ iqfN55XR9uqDQvCyjgn9Fgp y0DAIhR JGEadwKwpJGkup2gNWAwvRZ uk771IS14CaAjETpzr092RB 26jOdwYQ3dLNSBM0FGOZ4XF UFTIiBk JDtuKDXenwRgA7M5wAbjDYI DM5W0GxY1RM3GAaSaEUDWR7 FdIaVvYd0FW7JUUGxHJnN0Z kEiIGlk MGXcGQElTjbuS7HmATR4SK9 9POTzCDL5IUHqWbQmHfTbRg R5QlP5Oe8ZIMbTGDZynmPxf VCboq6b EHJptMLaa195VQ90qQUacGU uJTHkzL43JATmTZRnAUC7Q4 9dfOIvaYS8kWA9McYKLVOUJ kVfTUVB OdYxRVJ9SM02jOV8aRT4LrF 4MjAzMDIzNTAiIGlkPSJfZG H7D0ErKAZmXRyvWo74GHPqN ID1VYQz FuS3YGSfHAqsNeAxGaJ9aHz zcdkkFR9lSJtiYD3iP9BfS8 ZxRL14FBGku40sHkUsszF2j HRhdGlv baKoj5LzlKEomrvmNYl0Fmz BKFo1I7Xiyd7HOBnXVR3yzF Y+CtjQSJj5OZl4QRWsPMLrE SJkZHNl X9Hex21rBWRsXKHjHJSzCLF fJPGhOTrzq6ImaLHfNKJ5AM g1ZNTuzrQon9AuBlkuUoJaS DpzZWN0 dR2nW49fKL2lII7KFeVqUAN lKzFkBkNqsXC9Wb51KxqqZj HiKg0zAYMaOYIeCwWfEFE8E N62Neoh EhEbXBY0YAXmPDC6iNtcTBW dLWCjbC8vThW0jUi3Xf37r9 TeolXyzDHyin2jJBTjLUE7d L1vJZpu cGxheSI+HIOmDP3uo2Z9nDF 5CjAxoeVhl7LpO2g9MlGha6 llIcI2EAk4HVOfH92aABWfc 246IHVu ZGVybGluZTsiPkhQSSBTdGF lQevmm4Opah55M9QyNX4+Cg uQNGj9PPm0XJDyEQKtAKAvH GVtcmNv bnRlbnQiIGRkOmNvbnRlbnR 0nUSkNWOELYJNRWITQ98BQP JvTWSxGdCqYvAhPZ2qGKR3u AT8NmF6 DDZKVWVlZHh3UICoGRF7Ii2 MYtLsBPDZSGSNGcfpXBQ0Sf BirUE3Uk01WNU8DIT3BW0hW TB7NIEp BkbiSVLlId92Jit0UThpUtp fWwAwZyuUILc9ZKj5FCSbWM NzPSJkZGVtcmNvbnRlbnRpd GVtIGRk eyFfu7NsWxivHkWnBAijzU9 rxJ4tiEivW7S8zAhgZIC8f8 AtcmlnaHQiIGRkOmNvbnRlb yR3tPPd CDFKPJMORVHTW63RTNZwHRR kRpGrpSp6vIezYQPiSVgiVB YoP5R4CMCjSAvtFlM6SV22Z zZjLTll EKAkYNkqDMv3NWA2DCYlAgP 9gIedkvezNG1mMWrkYZ4jA3 TyJ3SjWZ38TJDxm81aGqvmJ Qw5CtgD TWuABDVwnmVukCJicq6xERE neMZqu911FI19oBLnhCFhRY UshB77ZXNvAJZsEYZ3YmEgF mxvYXRp cgbhmOsiPF9gxF0fFSCjL1e 7JzZkQTqey137LL68xSvmRE 8yFYZYG1SJJT7PFCOHAoZkS DplbnRp dRrdMV2vStZrIS2iOezwODU 6U3RgGCL3OHDrQQZkGm52AV HtVEC4ZmL0IXSeCXC0VcOpj C6newT6 CWQ9GdA1xrBdeTZQs7U6uQE arLL3oT1vUu00Q1Ueci1TNi eOLJpaiQAzV5deo8N9HbIaX S3zK51m qYRszDl2QB6uUTNxYY3aezV ldBZzXVFcRcA1fcPke5V1dY 2mn1L7hTW4DxVljZ6shAdzr CIgZGQ6 X59koNWszWJ5dET6FcZKJGB KQuXdZLXQSlVuIBR7PM32gL G6gMA7QwVrjQN2Iu0aHSJ7U AEiDW4q SDDfFRQhDNJiLMBpDh41YWV aGtX2ZOFsA1BdYHqzqO6hCw AsLOLGcB2kpEfkMA4bcB0ej nRhdGlv biI+DW1pwHS+MydZVTj7IYn 2IGNsYXNzPSJkZGVtcmNvbn LqqlZyqVMwUOMmwsCqy4VxM mxlIiBk WPuaiN7iwY3svBtmU2V8qTz oOUI4t7PvwiizdUXlBSDfMs IrsoFongI3rKUxROEUJYTVK TSKQ75K HWHlJEUiPdNguLo2dKixBDX iIGlkPSJfYTIyNTZlYjAtZm V5PF06NuK1FSDfXXifAqJuB TNhYmMz XFV4WvB8hLpfcpsjCG8hJPl kNY0qN5LnY3KqXA84OKDdr5 4pNzoiUUa7CpzUUNrSYVDki iBjbGFz ib4eEXAsuLUpk313PU16gYB qnWXvWMTrhW46IFUlKKOsFB Q0PdLyAhkgKUHoleeiqYksS H1zcM8d ECZsV1g0NwZsNGujk199YG1 8aZeuHW8iNQWIO9WKYW4QFW PYHzXqRStjnwYrbVfvHH7jM iJnIB8v XzZmYjRjMjFkLWEzYmQtNGQ 1TP6xXDIjFEGfOmbrMVH9LK ViVaQoyL1qjmZ7GNJ9IyD1u mFtaWNE e5N4yDAzsRF1mY4jAk50N8L qjk2MUocWOPgoyLVaB6ipr9 X6UhLuPY0jW82nvFJweXu1L X6pLNEe JT6uurZvsNWfSBLjIrJ6xaQ jr8F8sG2vd8F4hQP8YqScmD 1ygIsjuPImHJW6F18vbPBxq WP0iAJ4 IlBBVENBUkVfTUVBUyIgZGQ 3MF33oBM9kBV9XqGrwTL9Ex 7qXSUnOBY8ZU0bO5MyQTXzS zQtYTll DQ68BavyGNQeCfp5GLQsXIw emM2pSbQjYUZDoJ7nzIsoQS 1mmG8erjVbpKyaicN+PC9ka XY+CgoJ LEn6QKs0SDGyGMZnEBShRTS tcmNvbnRlbnRpdGVtIGRkcm Yde8JxAfajOgJzDOlwlZ7lb Z1ozQfl X3N7jMncNFR3k2PzkqdmqQI oXILvEcWcbwErzxW7wUAiZE FCGDPTTRSIT35PSDSrIHYjI mVudGl0 eWlkPSIiIGlkPSJfOTRiNzB eABWuGINvIW26LOz4YDCmDY KlXbJyMHGfECE0WHUaCtV1m Wxuczpk HW7eWEokOM7mT3AhD7NbZQ3 7NQVjz52gKoiqYUq1EopOTE qYTLZmhiKyuSCorv0uBKVcr DRgt694 FH97iCWpzQGqGZBmtX35VTY xZEAqEVQ5AiUhBwgbIJDcav bnuXcaMP2daN1fVIHmR5l1H iBkZDpj r267YZ46rJjzMH8aUWBTZ3V JFH1UVCZVHoDlTBzpsqOhmE faFM7aYiEcTS9aFsocDIA7A zZmLTE5 YZuoGAAnEe7kJfTsURP1ABx vAipbBsG1WLAcfY5vzyH0OR I0FcO7njYvxMWYf0C8qOAth KP1xM0y Rx00T9Kpcw0JPqtNEDwdgTT yC2uft5J8RrCkST4iS07qaW TcmLz5JG8eBLRnGX7rtvHwa GUiIGRk CsF3snTqu9A1rI9fy4J3qFE 8QzVkuQ9omVfyxWXoNTK8N9 5wxDCssFE9fNI4LhNNKCTDW kVfTUVB HoZmZIZ8YA39eMW5pMY1BuO wjIC0Ld35JYOmDSAdYC0uXU FwBKJ3WLWoHRS0Db5oCpZgE IN1UhRl QWioVBltpH6tMbJeHYLDnE6 fhAyhKX2lhI3bczXfoTofrr I+ZC3anTU+OvnPMZc7MYh2Z GNsYXNz PSJkZGVtcmNvbnRlbnRpdGV cYGRauvIvw9KbHhdjBeLcXU xbxW2gnX4jzOpoQ8W7mNwqM LN2d7Rg c (more content not included)... [facility] Comment on above: Result Comment: Elec tronically Signed By: KEMAR EVANS, Lan Glass\Date and Time Signed: 08/02/21 14:26 EDT Pre-Certification Formon Pre-Certification Form [id number]#1.00C D:127 [facility] Ambulatory Clinical Summaryo n 07-30-2021 Ambulatory Clinical Summary {[id number]}CD:[id number] [facility] XR ELBOW GENERAL 2V AP/LAT L Ton 07-26-2021 [facility] Physician Referralon 021 Physician Referral [id number]#[id number] D:127 [facility] CARDIAC STRESS/REST INJE CTIONon 05-25-[address] [facility] CARDIAC STRESS/REST INJECTION Patient Name: ELSA CATALAN STUDY: MYOCARDIAL PERFUSION STRESS TEST WITH LEXISCAN Performing facility: [facility], [address] [place] [address], [address] [place] [id number] [facility] Provider: Sarina Bird DO, [facility] PCP: Dr. Anant Johnson Supervising provider: Sarina Palomino MD, [facility] INDICATION: Chest Pain; HISTORY: Gender: F; Age: 60 y/o ; Height: 0 cm; Weight: 62.0169629 kg. High Cholesterol; Diabetes; HTN; SOB; Denies smoking. COMPARISON: No comparison. ACCESSION NUMBER(S): [id number]; [id number]; [id number] ORDERING CLINICIAN: ASIM BIRD TECHNIQUE: ONE DAY [...] Electronically signed by: DAYANARA AYALA MD Normal [facility] ECG 12 lead ECGon 05-13-2021 ECG 12 lead ECG [facility] Main [place] [address] [place] [address] Electrocardiograph Report Signed Patient: Elsa Catalan MR#: [id number] 0 : 1960 Acct:[id number] Age/Sex: 60 / F ADM Date: 05/11/21 Loc: Room: [address] [place] [address] Type: ADM INOo Attending Dr: Obdulia Garcia [...] By: MUS Dictated By: Noemy Zamora MD 05/13/21922 Signed By: 05/13/21 1156 [facility] Glucose Poct Glucometerson 0 05-13-2021 Commemt1 Glu2: Cleaned Meter [facility] Comment on above: Result Comment: PERF ORMED BY: [place] [address] PATHOLOGIST HIGH ENERGY FORMING EQUIPMENT OPERATOR RAMYA NEVES M.D. Performed By: #### H S TROP, CMP, CBC, MG #### [facility] [address] [place] [address] Glucose [Mass/Vol] 149 mg/dL Normal [facility] Comment on above: Result Comment: [facility] Glucose Reference Range is dependent on time and content of last meal. Glucose of more than 200 mg/dL in a nonstressed, ambulatory subject supports the diagnosis of Diabetes Mellitus. Performed By: #### H S TROP, CMP, CBC, MG #### [facility] [address] [place] [address] [place] Glucose [Mass/Vol] 89 mg/dL Normal [facility] Comment on above: Result Comment: [facility] Glucose Reference Range is dependent on time and content of last meal. Glucose of more than 200 mg/dL in a nonstressed, ambulatory subject supports the diagnosis of Diabetes Mellitus. PERFORMED BY: [address] [place] [address] PATHOLOGIST HIGH ENERGY FORMING EQUIPMENT OPERATOR RAMYA NEVES M.D. Performed By: #### H S TROP, CMP, CBC, MG #### [address] Basic Metabolic Panelon 05-02 Calcium [Mass/Vol] 8.0 mg/dL Low 8.2-10.2 [facility] Comment on above: Performed By: #### B MP, MG, CBC #### [address] Chloride [Moles/Vol] 100 mmol/L Normal 95-114 [facility] Comment on above: Performed By: #### B MP, MG, CBC #### [address] CO2 [Moles/Vol] 19.9 mmol/L Low 22.0-30.0 [facility] Comment on above: Performed By: #### B MP, MG, CBC #### [address] Creatinine [Mass/Vol] 0.65 mg/dL Normal 0.44-1.03 [facility] Comment on above: Performed By: #### B MP, MG, CBC #### [address] Creatinine Clr Calc Pharmacy 85.09 Normal [facility] Comment on above: Performed By: #### B MP, MG, CBC #### [address] Estimated GFR ( [place] > 60 [facility] Comment on above: Result Comment: GFR estimated reference range: According to KDOQI guidelines, <60 ml/min/1.73m2 is sufficient to diagnose a patient with chronic kidney disease. Performed By: #### B MP, MG, CBC #### [address] Estimated GFR (Non- Am > 60 Normal [facility] Comment on above: Performed By: #### B MP, MG, CBC #### [facility] [address] Glucose [Mass/Vol] 312 mg/dL High 70-100 [facility] Comment on above: Result Comment: [place] Glucose Reference Range is dependent on time and content of last meal. Glucose of more than 200 mg/dL in a nonstressed, ambulatory subject supports the diagnosis of Diabetes Mellitus. ADA recommended reference range Performed By: #### B MP, MG, CBC #### [facility] [address] Potassium [Moles/Vol] 3.6 mmol/L Normal 3.5-5.1 [facility] Comment on above: Performed By: #### B MP, MG, CBC #### [facility] [address] Sodium [Moles/Vol] 133 mmol/L Low 136-146 [facility] Comment on above: Performed By: #### B MP, MG, CBC #### [facility] [address] Urea nitrogen [Mass/Vol] 16 mg/dL Normal 9-23 [facility] Comment on above: Performed By: #### B MP, MG, CBC #### [facility] [address] COVID-19 FRon 05-12-2021 SARS-CoV-2 (COVID-19) RNA IASC+probe Ql (Unsp spec) Negative Normal Negative [facility] Comment on above: Order Comment: Healt hcare Worker?: N Result Comment: Testing for SARS-CoV-2 by RT-PCR This test was developed and its performance characteristics determined by [employer] and validated at the [facility]. This test has not been FDA [...] is terminated or revoked sooner. PERFORMED BY: [place] [address] PATHOLOGIST HIGH ENERGY FORMING EQUIPMENT OPERATOR RAMYA NEVES M.D. Performed By: #### H S TROP, CMP, CBC, MG #### [address] angio chest PE protocolon 05-12-2021 CT angio chest PE protocol [facility] Main [place] [address] [place] [address] CT Scan Report Signed Patient: Elsa Catalan MR#: [id number] 0 : 1960 Acct:[id number] Age/Sex: 60 / F ADM Date: 05/11/21 Loc: Room: [address] [place] [address] Type: ADM INOo Attending Dr: Obdulia Garcia [...] Matt Beckham M.D.05/12/2021 1:40 PM Dictation Location: [place] [address] Transcribed By: [facility] 05/12/21 1340 Dictated By: Matt Beckham DO 05/12/21 1333 Signed By: 05/12/21 1340 Normal [facility] Complete Blood Count Auto Di ffon 05-12-2021 Basophils (Bld) [#/Vol] 0.0 10*3/uL Normal 0.0-0.2 [facility] Comment on above: Result Comment: PERF ORMED BY: [place] [address] PATHOLOGIST HIGH ENERGY FORMING EQUIPMENT OPERATOR RAMYA NEVES M.D. Performed By: #### B MP, MG, CBC #### [address] Basophils/100 WBC (Bld) 0.4 % Normal . [facility] Comment on above: Performed By: #### B MP, MG, CBC #### [facility] [address] [place] [address] Eosinophils (Bld) [#/Vol] 0.0 10*3/uL Normal 0.0-0.45 [facility] Comment on above: Performed By: #### B MP, MG, CBC #### [address] Eosinophils/100 WBC (Bld) 0.0 % Normal . [facility] Comment on above: Performed By: #### B MP, MG, CBC #### [address] Erythrocyte distribution width (RBC) [Ratio] 16.3 % High 11.9-15.3 [facility] Comment on above: Performed By: #### B MP, MG, CBC #### [address] Hematocrit (Bld) [Volume fraction] 36.4 % Normal 34.0-46.4 [facility] Comment on above: Performed By: #### B MP, MG, CBC #### [address] Hemoglobin (Bld) [Mass/Vol] 12.1 g/dL Normal 11.8-15.4 [facility] Comment on above: Performed By: #### B MP, MG, CBC #### [address] Lymphocytes (Bld) [#/Vol] 2.0 10*3/uL Normal 1.00-4.8 [facility] Comment on above: Performed By: #### B MP, MG, CBC #### [address] Lymphocytes/100 WBC (Bld) 16.8 % Normal . [facility] Comment on above: Performed By: #### B MP, MG, CBC #### [address] MCH (RBC) [Entitic mass] 30.1 pg Normal 24.7-34.3 [facility] Comment on above: Performed By: #### B MP, MG, CBC #### [address] MCV (RBC) [Entitic vol] 90.7 fL Normal 80-100 [facility] Comment on above: Performed By: #### B MP, MG, CBC #### [address] Mean Corpuscular HGB Conc 33.2 g/dL Normal 32.0-35.0 [facility] Comment on above: Performed By: #### B MP, MG, CBC #### [address] Monocytes (Bld) [#/Vol] 0.8 10*3/uL Normal 0.0-0.8 [facility] Comment on above: Performed By: #### B MP, MG, CBC #### [place] [address] [place] Monocytes/100 WBC (Bld) 6.8 % Normal . [facility] Comment on above: Performed By: #### B MP, MG, CBC #### [facility] [address] Neutrophils (Bld) [#/Vol] 8.9 10*3/uL High 1.8-7.7 [facility] Comment on above: Performed By: #### B MP, MG, CBC #### [facility] [address] Neutrophils/100 WBC (Bld) 76.0 % Normal . [facility] Comment on above: Performed By: #### B MP, MG, CBC #### [facility] [address] Nucleated RBC/100 WBC (Bld) [Ratio] 0.0 % Normal 0-0.5 [facility] Comment on above: Performed By: #### B MP, MG, CBC #### [facility] [address] Platelet mean volume (Bld) [Entitic vol] 7.5 fL Normal 6.3-10.7 [facility] Comment on above: Performed By: #### B MP, MG, CBC #### [place] [address] [place] Platelets (Bld) [#/Vol] 372 10*3/uL Normal 150-450 [facility] Comment on above: Performed By: #### B MP, MG, CBC #### [facility] [address] [place] [address] [place] RBC (Bld) [#/Vol] 4.01 10*6/uL Normal 3.60-5.00 [facility] Comment on above: Performed By: #### B MP, MG, CBC #### [place] [address] [place] WBC (Bld) [#/Vol] 11.7 10*3/uL High 4.5-11.0 [facility] Comment on above: Performed By: #### B MP, MG, CBC #### [place] [address] [place] Basophils (Bld) [#/Vol] 0.1 10*3/uL Normal 0.0-0.2 [facility] Comment on above: Result Comment: PERF ORMED BY: [place] [address] PATHOLOGIST [employer] OPERATOR RAMYA NEVES M.D. Performed By: #### H S TROP, CMP, CBC, MG #### [address] Basophils/100 WBC (Bld) 0.8 % Normal . [facility] Comment on above: Performed By: #### H S TROP, CMP, CBC, MG #### [address] Eosinophils (Bld) [#/Vol] 0.0 10*3/uL Normal 0.0-0.45 [facility] Comment on above: Performed By: #### H S TROP, CMP, CBC, MG #### [address] Eosinophils/100 WBC (Bld) 0.0 % Normal . [facility] Comment on above: Performed By: #### H S TROP, CMP, CBC, MG #### [facility] [address] [place] [address] Erythrocyte distribution width (RBC) [Ratio] 16.7 % High 11.9-15.3 [facility] Comment on above: Performed By: #### H S TROP, CMP, CBC, MG #### [facility] [address] [place] [address] Hematocrit (Bld) [Volume fraction] 36.7 % Normal 34.0-46.4 [facility] Comment on above: Performed By: #### H S TROP, CMP, CBC, MG #### [facility] [address] [place] [address] Hemoglobin (Bld) [Mass/Vol] 12.1 g/dL Normal 11.8-15.4 [facility] Comment on above: Performed By: #### H S TROP, CMP, CBC, MG #### [address] Lymphocytes (Bld) [#/Vol] 1.0 10*3/uL Normal 1.00-4.8 [facility] Comment on above: Performed By: #### H S TROP, CMP, CBC, MG #### [address] Lymphocytes/100 WBC (Bld) 9.3 % Normal . [facility] Comment on above: Performed By: #### H S TROP, CMP, CBC, MG #### [address] MCH (RBC) [Entitic mass] 30.5 pg Normal 24.7-34.3 [facility] Comment on above: Performed By: #### H S TROP, CMP, CBC, MG #### [address] MCV (RBC) [Entitic vol] 92.2 fL Normal 80-100 [facility] Comment on above: Performed By: #### H S TROP, CMP, CBC, MG #### [address] Mean Corpuscular HGB Conc 33.1 g/dL Normal 32.0-35.0 [facility] Comment on above: Performed By: #### H S TROP, CMP, CBC, MG #### [address] Monocytes (Bld) [#/Vol] 0.1 10*3/uL Normal 0.0-0.8 [facility] Comment on above: Performed By: #### H S TROP, CMP, CBC, MG #### [address] Monocytes/100 WBC (Bld) 1.1 % Normal . [facility] Comment on above: Performed By: #### H S TROP, CMP, CBC, MG #### [address] Neutrophils (Bld) [#/Vol] 9.6 10*3/uL High 1.8-7.7 [facility] Comment on above: Performed By: #### H S TROP, CMP, CBC, MG #### [address] Neutrophils/100 WBC (Bld) 88.8 % Normal . [facility] Comment on above: Performed By: #### H S TROP, CMP, CBC, MG #### [address] Nucleated RBC/100 WBC (Bld) [Ratio] 0.0 % Normal 0-0.5 [facility] Comment on above: Performed By: #### H S TROP, CMP, CBC, MG #### [address] Platelet mean volume (Bld) [Entitic vol] 7.7 fL Normal 6.3-10.7 [facility] Comment on above: Performed By: #### H S TROP, CMP, CBC, MG #### [address] Platelets (Bld) [#/Vol] 358 10*3/uL Normal 150-450 [facility] Comment on above: Performed By: #### H S TROP, CMP, CBC, MG #### [address] RBC (Bld) [#/Vol] 3.98 10*6/uL Normal 3.60-5.00 [facility] Comment on above: Performed By: #### H S TROP, CMP, CBC, MG #### [address] WBC (Bld) [#/Vol] 10.8 10*3/uL Normal 4.5-11.0 [facility] Comment on above: Performed By: #### H S TROP, CMP, CBC, MG #### [address] Comprehensive Metabolic Pane le 05-12-2021 Albumin [Mass/Vol] 3.2 g/dL Normal 3.2-5.5 [facility] Comment on above: Performed By: #### H S TROP, CMP, CBC, MG #### [facility] [address] Albumin/Globulin [Mass ratio] 0.7 {ratio} Normal [facility] [facility] Comment on above: Performed By: #### H S TROP, CMP, CBC, MG #### [facility] [address] ALP [Catalytic activity/Vol] 69 U/L Normal 32-92 [facility] Comment on above: Performed By: #### H S TROP, CMP, CBC, MG #### [facility] [address] ALT [Catalytic activity/Vol] 21 U/L Normal 10-60 [facility] Comment on above: Performed By: #### H S TROP, CMP, CBC, MG #### [facility] [address] [place] [address] AST [Catalytic activity/Vol] 20 U/L Normal 10-42 [facility] Comment on above: Performed By: #### H S TROP, CMP, CBC, MG #### [facility] [address] [place] [address] Bilirubin [Mass/Vol] 0.6 mg/dL Normal 0.3-1.2 [facility] Comment on above: Performed By: #### H S TROP, CMP, CBC, MG #### [facility] [address] [place] [address] Calcium [Mass/Vol] 8.1 mg/dL Low 8.2-10.2 [facility] Comment on above: Performed By: #### H S TROP, CMP, CBC, MG #### [facility] [address] [place] [address] [place] Chloride [Moles/Vol] 100 mmol/L Normal 95-114 [facility] Comment on above: Performed By: #### H S TROP, CMP, CBC, MG #### [facility] [address] [place] [address] [place] CO2 [Moles/Vol] 17.0 mmol/L Low 22.0-30.0 [facility] Comment on above: Performed By: #### H S TROP, CMP, CBC, MG #### [address] Creatinine [Mass/Vol] 0.73 mg/dL Normal 0.44-1.03 [facility] Comment on above: Performed By: #### H S TROP, CMP, CBC, MG #### [address] Creatinine Clr Calc Pharmacy 75.76 [facility] Comment on above: Performed By: #### H S TROP, CMP, CBC, MG #### [address] Estimated GFR ( [place] > 60 [facility] Comment on above: Result Comment: GFR estimated reference range: According to KDOQI guidelines, <60 ml/min/1.73m2 is sufficient to diagnose a patient with chronic kidney disease. Performed By: #### H S TROP, CMP, CBC, MG #### [address] Estimated GFR (Non- Am > 60 [facility] Comment on above: Performed By: #### H S TROP, CMP, CBC, MG #### [address] Globulin (S) [Mass/Vol] 4.5 g/dL [facility] Comment on above: Performed By: #### H S TROP, CMP, CBC, MG #### [address] Glucose [Mass/Vol] 407 mg/dL High 70-100 [facility] Comment on above: Result Comment: [place] Glucose Reference Range is dependent on time and content of last meal. Glucose of more than 200 mg/dL in a nonstressed, ambulatory subject supports the diagnosis of Diabetes Mellitus. ADA recommended reference range Performed By: #### H S TROP, CMP, CBC, MG #### [facility] [address] [place] [address] Potassium [Moles/Vol] 3.7 mmol/L Normal 3.5-5.1 [facility] Comment on above: Performed By: #### H S TROP, CMP, CBC, MG #### [facility] [address] Protein [Mass/Vol] 7.7 g/dL Normal 6.1-7.9 [facility] Comment on above: Performed By: #### H S TROP, CMP, CBC, MG #### [facility] [address] Sodium [Moles/Vol] 132 mmol/L Low 136-146 [facility] Comment on above: Performed By: #### H S TROP, CMP, CBC, MG #### [facility] [address] Urea nitrogen [Mass/Vol] 17 mg/dL Normal 9-23 [facility] Comment on above: Performed By: #### H S TROP, CMP, CBC, MG #### [address] ECG 12 lead ECGon 05-12-2021 ECG 12 lead ECG [facility] Main [place] [address] [place] [address] Electrocardiograph Report Signed Patient: Elsa Catalan MR#: [id number] 0 : 1960 Acct:[id number] Age/Sex: 60 / F ADM Date: 05/11/21 Loc: Room: [address] [place] [address] Type: ADM INOo Attending Dr: Obdulia Garcia [...] Electronically Signed By:NOEMY ZAMORA MD Transcribed By: THIAGO Dictated By: Noemy Zamora MD 05/12/21 0846 Signed By: 05/12/21 1903 [facility] ECG 12 lead ECG [facility] Main [place] [id number] Electrocardiograph Report Signed Patient: Elsa Catalan MR#: [id number] 0 : 1960 Acct:[id number] Age/Sex: 60 / F ADM Date: 05/11/21 Loc: 3T Room: [address] [place] [address] Type: ADM INOo Attending Dr: Obdulia Garcia [...] Signed By:LAN CANALES DO, FACC Transcribed By: THIAGO Dictated By: Lan Canales DO 05/11/21 2247 Signed By: 05/12/21 1051 [facility] ECH echo transthoracicon ECH echo transthoracic [facility] Main [address] [address] Echocardiogram Signed Patient: Elsa Catalan MR#: [id number] 0 : 1960 Acct:[id number] Age/Sex: 60 / F ADM Date: 05/11/21 Loc: 3T Room: [address] [place] [address] Type: ADM INOo Attending Dr: Obdulia Garcia MD Ordering Provider: Geri Angel MD Date of Service: 05/11/21 [facility] echo transthoracic: CP Copies to: MD Lan [...] DO 05/12/21 1020 Signed By: 05/12/21 1203 [facility] Glucose Poct Glucometerson 0 05-12-2021 Glucose [Mass/Vol] 188 mg/dL Normal [facility] Comment on above: Result Comment: [place] om Glucose Reference Range is dependent on time and content of last meal. Glucose of more than 200 mg/dL in a nonstressed, ambulatory subject supports the diagnosis of Diabetes Mellitus. PERFORMED BY: [place] [address] PATHOLOGIST HIGH [employer]ERGY FORMING EQUIPMENT OPERATOR RAMYA NEVES M.D. Performed By: #### H S TROP, CMP, CBC, MG #### [facility] [address] [place] [address] Commemt1 Glu2: Cleaned Meter [facility] Comment on above: Result Comment: PERF ORMED BY: [place] [address] PATHOLOGIST HIGH ENERGY FORMING EQUIPMENT OPERATOR RAMYA NEVES M.D. Performed By: #### H S TROP, CMP, CBC, MG #### [facility] [address] [place] [address] Glucose [Mass/Vol] 138 mg/dL Normal [facility] Comment on above: Result Comment: [place] om Glucose Reference Range is dependent on time and content of last meal. Glucose of more than 200 mg/dL in a nonstressed, ambulatory subject supports the diagnosis of Diabetes Mellitus. Performed By: #### H S TROP, CMP, CBC, MG #### [facility] [address] [place] [address] Commemt1 [facility] Comment on above: Result Comment: Glu2 : Will Repeat Test Performed By: #### H S TROP, CMP, CBC, MG #### [facility] [address] [place] [address] WILL [address]/TRAVON [facility] Comment on above: Performed By: #### H S TROP, CMP, CBC, MG #### [facility] [address] [place] [address] Commemt3 Cleaned Meter [facility] Comment on above: Result Comment: PERF ORMED BY: [place] [address] PATHOLOGIST HIGH ENERGY FORMING EQUIPMENT OPERATOR RAMYA NEVES M.D. Performed By: #### H S TROP, CMP, CBC, MG #### [address] Glucose [Mass/Vol] 400 mg/dL Off scale high [facility] Comment on above: Result Comment: [facility] Glucose Reference Range is dependent on time and content of last meal. Glucose of more than 200 mg/dL in a nonstressed, ambulatory subject supports the diagnosis of Diabetes Mellitus. Performed By: #### H S TROP, CMP, CBC, MG #### [facility] [address] [place] [address] Commemt1 Glu2: Cleaned Meter [facility] Comment on above: Performed By: #### H S TROP, CMP, CBC, MG #### [facility] [address] [place] [address] Commemt2 Will Repeat Test [facility] Comment on above: Performed By: #### H S TROP, CMP, CBC, MG #### [facility] [address] [place] [address]/TRAVON [facility] Comment on above: Result Comment: PERF ORMED BY: [place] [address] PATHOLOGIST HIGH ENERGY FORMING EQUIPMENT OPERATOR RAMYA NEVES M.D. Performed By: #### H S TROP, CMP, CBC, MG #### [address] Glucose [Mass/Vol] 415 mg/dL Off scale high [facility] Comment on above: Result Comment: [facility] Glucose Reference Range is dependent on time and content of last meal. Glucose of more than 200 mg/dL in a nonstressed, ambulatory subject supports the diagnosis of Diabetes Mellitus. Performed By: #### H S TROP, CMP, CBC, MG #### [facility] [address] [place] [address] [place] Magnesiumon 05-12-2021 Magnesium [Mass/Vol] 1.7 mg/dL Normal 1.6-2.6 [facility] Comment on above: Result Comment: PERF ORMED BY: [place] [address] PATHOLOGIST HIGH [employer] FORMING EQUIPMENT OPERATOR RAMYA NEVES M.D. Performed By: #### B MP, MG, CBC #### [facility] [address] [place] [address] Magnesium [Mass/Vol] 1.7 mg/dL Normal 1.6-2.6 [facility] Comment on above: Result Comment: PERF ORMED BY: [place] [address] PATHOLOGIST HIGH [employer] FORMING EQUIPMENT OPERATOR RAMYA NEVES M.D. Performed By: #### H S TROP, CMP, CBC, MG #### [facility] [address] [place] [address] [place] Troponin I High Sensitivityo n 05-12-2021 Troponin I High Sensitivity 247 pg/mL Off scale high 0-15 [facility] Comment on above: Result Comment: PERF ORMED BY: [facility] [address] [place] [address] PATHOLOGIST HIGH [employer]ERGY FORMING EQUIPMENT OPERATOR RAMYA NEVES M.D. Performed By: #### H S TROP #### [facility] [address] [place] [address] Troponin I High Sensitivity 220 pg/mL Off scale high 0-15 [facility] Comment on above: Result Comment: PERF ORMED BY: [place] [address] PATHOLOGIST HIGH ENERGY FORMING EQUIPMENT OPERATOR RAMYA NEVES M.D. Performed By: #### H S TROP #### [facility] [address] [place] [address] Troponin I High Sensitivity 237 pg/mL Off scale high 0-15 [facility] Comment on above: Result Comment: Resu lts called at 0131 on 05/12/21 PERFORMED BY: [place] [address] PATHOLOGIST HIGH ENERGY FORMING EQUIPMENT OPERATOR RAMYA NEVES M.D. Performed By: #### H S TROP, CMP, CBC, MG #### [facility] [address] [place], [place] [id number] [facility] XR chest 1V portableon 05-12 XR chest 1V portable [facility] Main [place] [address] [place] [address] XRay Report Signed Patient: Elsa Catalan MR#: [id number] 0 : 1960 Acct:[id number] Age/Sex: 60 / F ADM Date: 05/11/21 Loc: Room: [address] [place] [address] Type: ADM IN Attending Dr: Obdulia Garcia [...] Adrienne Fermin M.D.05/12/2021 9:29 AM Dictation Location: [place] [address] Transcribed By: [facility] 05/12/21928 Dictated By: Adrienne Fermin MD 05/12/21927 Signed By: 05/12/21928 Normal [facility] XR lumbar spine 6V w bending on 11-27-2020 XR lumbar spine 6V w bending [facility] Main [place] [address] [place] [address] XRay Report Signed Patient: Elsa Catalan MR#: [id number] 0 : 1960 Acct:[id number] Age/Sex: 60 / F ADM Date: 11/27/20 Loc: [place] Room: Type: [facility] Attending Dr: Sam Rothman MD Ordering Provider: Sam Rothman MD Date of Service: 11/27/20 XR/XR lumbar spine 6V w bending: Radiculopathy, lumbar region Copies to: Sam Rothman MD CLINICAL INFORMATION: Low back pain radiating down to the right leg for years. No known injury. LUMBAR SPINE WITH FLEXION AND EXTENSION AND LATERAL BENDING: COMPARISON: 10/19/2020 from [facility] FINDINGS: Standing AP, lateral, flexion, extension, with [...] Felipe Watson M.D.11/27/2020 11:48 AM Dictation Location: [place] [address] Transcribed By: [facility] 11/27/20 1148 Dictated By: Felipe Watson MD 11/27/20 1139 Signed By: 11/27/20 1148 Normal [facility] POC Glucoseon 04-08-2020 Glucose [Mass/Vol] 139 mg/dL High 65 - 99 mg/dL [facility] Interpretation and review of laboratory results Abnormal [facility] Glucose [Mass/Vol] 77 mg/dL 65 - 99 mg/dL [facility] Interpretation and review of laboratory results Normal [facility] Glucose [Mass/Vol] 83 mg/dL 65 - 99 mg/dL [facility] Interpretation and review of laboratory results Normal [facility] SCAN OTHER ORDERSon 04-08-20 Ordered by an unspecified provider. [facility] Basic Metabolic Panelon 10-02 Anion gap [Moles/Vol] 19 mmol/L 10 - 20 mmol/L [facility] Calcium [Mass/Vol] 8.1 mg/dL Low 8.4 - 10. 2 mg/dL [facility] Chloride [Moles/Vol] 96 mmol/L Low 98 - 108 mmol/L [facility] Creatinine [Mass/Vol] 0.71 mg/dL 0.4 - 1.1 mg/dL [facility] GFR/1.73 sq M predicted among non-blacks MDRD (S/P/Bld) [Vol rate/Area] The eGFR should be used for monitoring renal function only and not for medication dosing. [facility] GFR/1.73 sq M.predicted CKD-EPI (S/P/Bld) [Vol rate/Area] 93 >=60 mL/min/1.73 m2 [facility] Glucose [Mass/Vol] 206 mg/dL High 65 - 99 mg/dL [facility] HCO3 [Moles/Vol] 23 mmol/L 21 - 32 mmol/L [facility] Interpretation and review of laboratory results Abnormal [facility] Potassium [Moles/Vol] 3.3 mmol/L Low 3.5 - 5.1 mmol/L [facility] Sodium [Moles/Vol] 135 mmol/L 135 - 145 mmol/L [facility] Urea nitrogen [Mass/Vol] 18 mg/dL 8 - 25 mg/dL [facility] Urea nitrogen/Creatinine [Mass ratio] 25.4 mg/mg High [facility] CBC WITH AUTO DIFFERENTIALon 10-14-2019 Basophils (Bld) [#/Vol] 0.04 10*3/uL [facility] Basophils/100 WBC (Bld) 0.5 % [facility] Eosinophils (Bld) [#/Vol] 0.00 10*3/uL [facility] Eosinophils/100 WBC (Bld) 0.0 % [facility] Erythrocyte distribution width (RBC) [Entitic vol] 14.0 % 11.6 - 14.8 % [facility] Hematocrit (Bld) [Volume fraction] 33.6 % Low 36 - 46 % [facility] Hemoglobin (Bld) [Mass/Vol] 11.1 g/dL Low 12 - 16 g/dL [facility] Immature granulocytes (Bld) [#/Vol] 0.01 10*3/uL [facility] Immature granulocytes/100 WBC (Bld) 0.10 % [facility] Comment on above: The IG parameter is the percentage of metamyelocytes, myelocytes, and promyelocytes. Interpretation and review of laboratory results Abnormal [facility] Lymphocytes (Bld) [#/Vol] 2.22 10*3/uL [facility] Lymphocytes/100 WBC (Bld) 28.2 % [facility] MCH (RBC) [Entitic mass] 29.3 pg 26 - 34 pg [facility] MCHC (RBC) [Mass/Vol] 33.0 g/dL 31 - 37 g/dL [facility] MCV (RBC) [Entitic vol] 88.7 fL 80 - 100 fL [facility] Monocytes (Bld) [#/Vol] 0.57 10*3/uL [facility] Monocytes/100 WBC (Bld) 7.2 % [facility] Neutrophils (Bld) [#/Vol] 5.04 10*3/uL [facility] Neutrophils/100 WBC (Bld) 64.0 % [facility] Nucleated RBC (Bld) [#/Vol] 0.00 10*3/uL [facility] Nucleated RBC/100 WBC (Bld) [Ratio] 0.0 % [facility] Platelet mean volume (Bld) [Entitic vol] 9.2 fL 9 - 15.5 fL [facility] Platelets (Bld) [#/Vol] 390 10*3/uL [facility] RBC (Bld) [#/Vol] 3.79 10*6/uL Low [facility] ([facility] [#/Vol] 7.88 10*3/uL [facility] P[facility] Glucoseon 10-14-2019 Glucose [Mass/Vol] 116 mg/dL High 65 - 99 mg/dL [facility] Interpretation and review of laboratory results Abnormal [facility] Glucose [Mass/Vol] 142 mg/dL High 65 - 99 mg/dL [facility] Interpretation and review of laboratory results Abnormal [facility] POC Glucoseon 10-13-2019 Glucose [Mass/Vol] 232 mg/dL High 65 - 99 mg/dL [facility] Interpretation and review of laboratory results Abnormal [facility] Glucose [Mass/Vol] 317 mg/dL High 65 - 99 mg/dL [facility] Interpretation and review of laboratory results Abnormal [facility] Glucose [Mass/Vol] 289 mg/dL High 65 - 99 mg/dL [facility] Interpretation and review of laboratory results Abnormal [facility] Glucose [Mass/Vol] 96 mg/dL 65 - 99 mg/dL [facility] Interpretation and review of laboratory results Normal [facility] CBC WITH AUTO DIFFERENTIALon 10-12-2019 Basophils (Bld) [#/Vol] 0.09 10*3/uL [facility] Basophils/100 WBC (Bld) 1.1 % [facility] Eosinophils (Bld) [#/Vol] 0.36 10*3/uL [facility] Eosinophils/100 WBC (Bld) 4.4 % [facility] Erythrocyte distribution width (RBC) [Entitic vol] 13.9 % 11.6 - 14.8 % [facility] Hematocrit (Bld) [Volume fraction] 34.6 % Low 36 - 46 % [facility] Hemoglobin (Bld) [Mass/Vol] 11.7 g/dL Low 12 - 16 g/dL [facility] Immature granulocytes (Bld) [#/Vol] 0.01 10*3/uL [facility] Immature granulocytes/100 WBC (Bld) 0.10 % [facility] Comment on above: The IG parameter is the percentage of metamyelocytes, myelocytes, and promyelocytes. Interpretation and review of laboratory results Abnormal [facility] Lymphocytes (Bld) [#/Vol] 2.96 10*3/uL [facility] Lymphocytes/100 WBC (Bld) 36.6 % [facility] MCH (RBC) [Entitic mass] 29.8 pg 26 - 34 pg [facility] MCHC (RBC) [Mass/Vol] 33.8 g/dL 31 - 37 g/dL [facility] MCV (RBC) [Entitic vol] 88.3 fL 80 - 100 fL [facility] Monocytes (Bld) [#/Vol] 0.72 10*3/uL [facility] Monocytes/100 WBC (Bld) 8.9 % [facility] Neutrophils (Bld) [#/Vol] 3.95 10*3/uL [facility] Neutrophils/100 WBC (Bld) 48.9 % [facility] Nucleated RBC (Bld) [#/Vol] 0.00 10*3/uL [facility] Nucleated RBC/100 WBC (Bld) [Ratio] 0.0 % [facility] Platelet mean volume (Bld) [Entitic vol] 9.3 fL 9 - 15.5 fL [facility] Platelets (Bld) [#/Vol] 378 10*3/uL [facility] RBC (Bld) [#/Vol] 3.92 10*6/uL Low [facility] WBC (Bld) [#/Vol] 8.09 10*3/uL [facility] Comprehensive Metabolic Pane le 10-12-2019 Albumin [Mass/Vol] 3.8 g/dL 3.2 - 5.2 g/dL [facility] ALP [Catalytic activity/Vol] 90 U/L 40 - 150 U/L [facility] ALT [Catalytic activity/Vol] 13 U/L 0 - 40 U/L [facility] Anion gap [Moles/Vol] 20 mmol/L 10 - 20 mmol/L [facility] AST [Catalytic activity/Vol] 19 U/L 0 - 45 U/L [facility] Bilirubin [Mass/Vol] 0.2 mg/dL 0 - 1.3 mg/dL [facility] Calcium [Mass/Vol] 9.2 mg/dL 8.4 - 10. 2 mg/dL [facility] Chloride [Moles/Vol] 97 mmol/L Low 98 - 108 mmol/L [facility] Creatinine [Mass/Vol] 0.84 mg/dL 0.4 - 1.1 mg/dL [facility] GFR/1.73 sq M predicted among non-blacks MDRD (S/P/Bld) [Vol rate/Area] The eGFR should be used for monitoring renal function only and not for medication dosing. [facility] GFR/1.73 sq M.predicted CKD-EPI (S/P/Bld) [Vol rate/Area] 76 >=60 mL/min/1.73 m2 [facility] Glucose [Mass/Vol] 240 mg/dL High 65 - 99 mg/dL [facility] HCO3 [Moles/Vol] 26 mmol/L 21 - 32 mmol/L [facility] Interpretation and review of laboratory results Abnormal [facility] Potassium [Moles/Vol] 3.7 mmol/L 3.5 - 5.1 mmol/L [facility] Protein [Mass/Vol] 8.7 g/dL High 6 - 8 g/dL [facility] Sodium [Moles/Vol] 139 mmol/L 135 - 145 mmol/L [facility] Urea nitrogen [Mass/Vol] 14 mg/dL 8 - 25 mg/dL [facility] Urea nitrogen/Creatinine [Mass ratio] 16.7 mg/mg [facility] POC Glucoseon 10-12-2019 Glucose [Mass/Vol] 195 mg/dL High 65 - 99 mg/dL [facility] Interpretation and review of laboratory results Abnormal [facility] Glucose [Mass/Vol] 130 mg/dL High 65 - 99 mg/dL [facility] Interpretation and review of laboratory results Abnormal [facility] PT/INRon 10-12-2019 INR Coag (PPP) [Relative time] 1.0 {INR} [facility] Interpretation and review of laboratory results Normal [facility] PT Coag (PPP) [Time] 12.7 s [facility] During the induction phase of oral anticoagulation, the INR may not reflect the anticoagulation status of the patient. Therapeutic ranges for INR's are: Most clinical situations: INR 2.0-3.0 Mechanical Prosthetic Valve: INR 2.5-3.5 Critical: INR >5.0 [facility] DEBRIDEMENTon 10-08-2019 Rose Mendoza CNP 10/08/2019 2:14 PM Wound Care Debridement Timeout: Verbal Consent obtained?: Yes Written Consent obtained?: Yes Consent given by: Patient Immediately prior to procedure a time out was called to verify the correct patient, procedure, equipment, product support technician and site/side marked as required Timeout performed: [...] tolerated well (...................... ....................... ....................... ...... ...............) [facility] Basic Metabolic Panelon Anion gap [Moles/Vol] 17 mmol/L 10 - 20 mmol/L [facility] Calcium [Mass/Vol] 7.9 mg/dL Low 8.4 - 10. 2 mg/dL [facility] Chloride [Moles/Vol] 101 mmol/L 98 - 108 mmol/L [facility] Creatinine [Mass/Vol] 0.68 mg/dL 0.4 - 1.1 mg/dL [facility] GFR/1.73 sq M predicted among non-blacks MDRD (S/P/Bld) [Vol rate/Area] The eGFR should be used for monitoring renal function only and not for medication dosing. [facility] GFR/1.73 sq M.predicted CKD-EPI (S/P/Bld) [Vol rate/Area] 95 >=60 mL/min/1.73 m2 [facility] Glucose [Mass/Vol] 143 mg/dL High 65 - 99 mg/dL [facility] HCO3 [Moles/Vol] 23 mmol/L 21 - 32 mmol/L [facility] Interpretation and review of laboratory results Abnormal [facility] Potassium [Moles/Vol] 3.4 mmol/L Low 3.5 - 5.1 mmol/L [facility] Sodium [Moles/Vol] 138 mmol/L 135 - 145 mmol/L [facility] Urea nitrogen [Mass/Vol] 17 mg/dL 8 - 25 mg/dL [facility] Urea nitrogen/Creatinine [Mass ratio] 25.0 mg/mg High [facility] CBC WITH AUTO DIFFERENTIALon 09-05-2019 Basophils (Bld) [#/Vol] 0.07 10*3/uL [facility] Basophils/100 WBC (Bld) 0.7 % [facility] Eosinophils (Bld) [#/Vol] 0.06 10*3/uL [facility] Eosinophils/100 WBC (Bld) 0.6 % [facility] Erythrocyte distribution width (RBC) [Entitic vol] 14.0 % 11.6 - 14.8 % [facility] Hematocrit (Bld) [Volume fraction] 33.6 % Low 36 - 46 % [facility] Hemoglobin (Bld) [Mass/Vol] 11.0 g/dL Low 12 - 16 g/dL [facility] Immature granulocytes (Bld) [#/Vol] 0.02 10*3/uL [facility] Immature granulocytes/100 WBC (Bld) 0.20 % [facility] Comment on above: The IG parameter is the percentage of metamyelocytes, myelocytes, and promyelocytes. Interpretation and review of laboratory results Abnormal [facility] Lymphocytes (Bld) [#/Vol] 2.50 10*3/uL [facility] Lymphocytes/100 WBC (Bld) 25.6 % [facility] MCH (RBC) [Entitic mass] 29.2 pg 26 - 34 pg [facility] MCHC (RBC) [Mass/Vol] 32.7 g/dL 31 - 37 g/dL [facility] MCV (RBC) [Entitic vol] 89.1 fL 80 - 100 fL [facility] Monocytes (Bld) [#/Vol] 1.19 10*3/uL High [facility] Monocytes/100 WBC (Bld) 12.2 % [facility] Neutrophils (Bld) [#/Vol] 5.92 10*3/uL [facility] Neutrophils/100 WBC (Bld) 60.7 % [facility] Nucleated RBC (Bld) [#/Vol] 0.00 10*3/uL [facility] Nucleated RBC/100 WBC (Bld) [Ratio] 0.0 % [facility] Platelet mean volume (Bld) [Entitic vol] 9.1 fL 9 - 15.5 fL [facility] Platelets (Bld) [#/Vol] 311 10*3/uL [facility] RBC (Bld) [#/Vol] 3.77 10*6/uL Low [facility] WBC (Bld) [#/Vol] 9.76 10*3/uL [facility] POC Glucoseon 09-05-2019 Glucose [Mass/Vol] 115 mg/dL High 65 - 99 mg/dL [facility] Interpretation and review of laboratory results Abnormal [facility] Glucose [Mass/Vol] 92 mg/dL 65 - 99 mg/dL [facility] Interpretation and review of laboratory results Normal [facility] TSHon 09-05-2019 Interpretation and review of laboratory results Abnormal [facility] TSH Qn 8.81 m[IU]/L High [facility] URINALYSISon 09-05-2019 Bacteria Auto Ql (U) None Seen None Seen /hpf [facility] Bilirubin Ql (U) Negative Negative [facility] th Clarity Refractometry automated (U) Hazy Abnormal Clear [facility] Color (U) Yellow Colorless, Yellow [facility] Epithelial cells.squamous Auto (Urine sed) [#/Area] 6 High [facility] Glucose Auto test strip (U) [Mass/Vol] >=500 Abnormal Negative mg/dL [facility] Hemoglobin Auto test strip Ql (U) Negative Negative [facility] Interpretation and review of laboratory results Abnormal [facility] Ketones (U) [Mass/Vol] Negative Negative mg/dL [facility] Leukocyte esterase Auto test strip Ql (U) Negative Negative [facility] Mucus Auto (Urine sed) [#/Area] Rare None Seen, Rare /lpf [facility] Nitrite Auto test strip Ql (U) Negative Negative [facility] pH (U) 5.0 [pH] [facility] Protein (U) [Mass/Vol] Negative Negative mg/dL [facility] RBC Auto (Urine sed) [#/Area] <1 [facility] Specific gravity (U) [Rel density] 1.023 [facility] Urobilinogen (U) [Mass/Vol] <2.0 <2.0 mg/dL [facility] WBC Auto (Urine sed) [#/Area] 2 [facility] Microscopic examinat ion is performed on all urinalysis samples and only positive findings are reported. The test for blood on the chemical analytic portion of urinalysis may also be positive due to hemoglobinuria and myoglobinuria and if red blood cells are present they are quantified by microscopic examination. [facility] XR CHEST PA/APon 09-05-2019 XR CHEST PA/AP [...] MonSep 05, 2019 11:55:53 AM EST Normal [facility] Comment on above: Order Comment: Injur y/Trauma [...] limits. No acute osseous abnormality is seen. [facility] No acute cardiopulmonary abnormality. [employer]R/DVDPlay Workstation ID: [id number] [facility] Interface, Rad In [facility] - 09/05/2019 11:58 AM EST EXAMINATION: XR [...] is seen. IMPRESSION: No acute cardiopulmonary abnormality. VKR/DVDPlay Workstation ID: [id number] [facility] POC Glucoseon 09-04-2019 Glucose [Mass/Vol] 126 mg/dL High 65 - 99 mg/dL [facility] Interpretation and review of laboratory results Abnormal [facility] Glucose [Mass/Vol] 112 mg/dL High 65 - 99 mg/dL [facility] Interpretation and review of laboratory results Abnormal [facility] Glucose [Mass/Vol] 93 mg/dL 65 - 99 mg/dL [facility] Interpretation and review of laboratory results Normal [facility] Glucose [Mass/Vol] 88 mg/dL 65 - 99 mg/dL [facility] Interpretation and review of laboratory results Normal [facility] SCAN OTHER ORDERSon 09-04-20 19 Ordered by an unspecified provider. [facility] XR ELBOW LEFT 3+ VIEWS (MARTÍN DARD)on 09-04-2019 XR ELBOW LEFT 3+ VIEWS (STANDARD) [...] intact hardware related to left elbow arthroplasty. [employer] Workstation ID: [id number] Dictated by: VU NESS on MonSep 04, 2019 3:35:06 PM EST Transcribed by: JONI DELEON on MonSep 04, 2019 3:35:46 PM EST Finalized by: VU NESS on MonSep 04, 2019 4:41:06 PM EST [facility] Comment on above: Order Comment: Injur y/Trauma or Illness?:Illness/Other How long have you had these symptoms (acute/chronic)?:Unknown Reason for exam?:post op History of cancer?:no Surgeries, chemotherapy, or radiation?:left elbow Type of Exam?:Initial Additional signs and symptoms?:post op XR Elbow Left 3+ Views (Martín dard)on 09-04-2019 Erythrocyte distribution width (RBC) [Ratio] 1. Gross anatomic alignment and intact hardware related to left elbow arthroplasty. [employer] Workstation ID: [id number] [facility] In [facility] j[facility] Speech[employer] - 09/04/2019 4:43 PM EST EXAMINATION: XR [...] intact hardware related to left elbow arthroplasty. VKR/bd Workstation ID: [id number] [facility] EXAMINATION: XR ELBO W LEFT 3+ VIEWS [...] gas is shown surrounding the surgical site. [facility] XR FLUOROSCOPY TIMEon 2018 XR FLUOROSCOPY TIME This is an auto finalized result. Please refer to patient chart for further information. further information. further information. [facility] Comment on above: Order Comment: Injur y/Trauma or Illness?:Illness/Other How long have you had these symptoms (acute/chronic)?:Unknown Reason for exam?:OR Type of Exam?:Ongoing Additional signs and symptoms?:unknown Fluoro time in minutes:.59 Fluoro dose in mGy?:.18 XR Fluoroscopy Timeon 2018 This is an auto finalized result. Please refer to patient chart for further information. [facility] XR OR ELBOW LEFT 2 VIEWSon 1 11-05-2018 XR OR ELBOW LEFT 2 VIEWS [...] MonSep 04, 2019 2:22:01 PM EST [facility] Comment on above: Order Comment: Injur y/Trauma or Illness?:Illness/Other How long have you had these symptoms (acute/chronic)?:Unknown Reason for exam?:OR Type of Exam?:Ongoing Additional signs and symptoms?:unknown Fluoro time in minutes:.59 Fluoro dose in mGy?:.18 XR OR Elbow Left 2 Viewson 1 11-05-2018 EXAMINATION: XR OR ELBOW LEFT 2 [...] resection of the radial head. Normal alignment. [facility], [place] - 09/04/2019 2:24 [...] formal operative report. DPR/raw Workstation ID: [id number] [facility] Status post left elb ow arthroplasty procedure. Please refer to the formal operative report. DPR/raw Workstation ID: [id number] [facility] Basic Metabolic Panelon 08-03 Anion gap [Moles/Vol] 22 mmol/L High 10 - 20 mmol/L [facility] Calcium [Mass/Vol] 9.7 mg/dL 8.4 - 10. 2 mg/dL [facility] Chloride [Moles/Vol] 96 mmol/L Low 98 - 108 mmol/L [facility] Creatinine [Mass/Vol] 0.63 mg/dL 0.4 - 1.1 mg/dL [facility] GFR/1.73 sq M predicted among non-blacks MDRD (S/P/Bld) [Vol rate/Area] The eGFR should be used for monitoring renal function only and not for medication dosing. [facility] GFR/1.73 sq M.predicted CKD-EPI (S/P/Bld) [Vol rate/Area] 98 >=60 mL/min/1.73 m2 [facility] Glucose [Mass/Vol] 221 mg/dL High 65 - 99 mg/dL [facility] HCO3 [Moles/Vol] 24 mmol/L 21 - 32 mmol/L [facility] Interpretation and review of laboratory results Abnormal [facility] Potassium [Moles/Vol] 4.0 mmol/L 3.5 - 5.1 mmol/L [facility] Sodium [Moles/Vol] 138 mmol/L 135 - 145 mmol/L [facility] Urea nitrogen [Mass/Vol] 16 mg/dL 8 - 25 mg/dL [facility] Urea nitrogen/Creatinine [Mass ratio] 25.4 mg/mg High [facility] CBC WITH AUTO DIFFERENTIALon 08-28-2019 Basophils (Bld) [#/Vol] 0.07 10*3/uL [facility] Basophils/100 WBC (Bld) 0.8 % [facility] Eosinophils (Bld) [#/Vol] 0.32 10*3/uL [facility] Eosinophils/100 WBC (Bld) 3.9 % [facility] Erythrocyte distribution width (RBC) [Entitic vol] 14.3 % 11.6 - 14.8 % [facility] Hematocrit (Bld) [Volume fraction] 40.2 % 36 - 46 % [facility] Hemoglobin (Bld) [Mass/Vol] 13.5 g/dL 12 - 16 g/dL [facility] Immature granulocytes (Bld) [#/Vol] 0.03 10*3/uL [facility] Immature granulocytes/100 WBC (Bld) 0.40 % [facility] Comment on above: The IG parameter is the percentage of metamyelocytes, myelocytes, and promyelocytes. Lymphocytes (Bld) [#/Vol] 2.90 10*3/uL [facility] Lymphocytes/100 WBC (Bld) 35.2 % [facility] MCH (RBC) [Entitic mass] 29.8 pg 26 - 34 pg [facility] MCHC (RBC) [Mass/Vol] 34.0 g/dL 31 - 37 g/dL [facility] MCV (RBC) [Entitic vol] 87.6 fL 80 - 100 fL [facility] Monocytes (Bld) [#/Vol] 0.55 10*3/uL [facility] Monocytes/100 WBC (Bld) 6.7 % [facility] Neutrophils (Bld) [#/Vol] 4.38 10*3/uL [facility] Neutrophils/100 WBC (Bld) 53.0 % [facility] Nucleated RBC (Bld) [#/Vol] 0.00 10*3/uL [facility] Nucleated RBC/100 WBC (Bld) [Ratio] 0.0 % [facility] Platelet mean volume (Bld) [Entitic vol] 9.6 fL 9 - 15.5 fL [facility] Platelets (Bld) [#/Vol] 391 10*3/uL [facility] RBC (Bld) [#/Vol] 4.60 10*6/uL [facility] ealth WBC (Bld) [#/Vol] 8.25 10*3/uL [facility] Creat[facility], Serumon 08-28-20 Creatinine [Mass/Vol] 0.63 mg/dL 0.4 - 1.1 mg/dL [facility] GFR/1.73 sq M predicted among non-blacks MDRD (S/P/Bld) [Vol rate/Area] The eGFR should be used for monitoring renal function only and not for medication dosing. [facility] GFR/1.73 sq M.predicted CKD-EPI (S/P/Bld) [Vol rate/Area] 98 >=60 mL/min/1.73 m2 [facility] Interpretation and review of laboratory results Normal [facility] ECG 12-LEADon 08-28-2019 Atrial Rate 90 BPM [facility] P [place] 80 degrees [facility] P-R Interval 156 ms [facility] Q-T Interval 362 ms [facility] QRS Duration 64 ms [facility] QTC Calculation (Bezet) 442 ms [facility] R [place] 64 degrees [facility] T [place] 57 degrees [facility] Ventricular Rate 90 BPM [facility] th Normal sinus rhythm Low voltage QRS Poor R Wave Progression Septal infarct , age undetermined Abnormal ECG Confirmed by Leatha Gomez M.D. ([id number]) on 08/28/2019 1:35:26 PM [facility] Glucoseon 08-28-2019 Glucose [Mass/Vol] 221 mg/dL High 65 - 99 mg/dL [facility] Interpretation and review of laboratory results Abnormal [facility] Hemoglobin and Hematocriton 08-28-2019 Hematocrit (Bld) [Volume fraction] 40.2 % 36 - 46 % [facility] Hemoglobin (Bld) [Mass/Vol] 13.5 g/dL 12 - 16 g/dL [facility] Interpretation and review of laboratory results Normal [facility] DEBRIDEMENTon 04-23-2019 Rose Mendoza CNP 04/24/2019 8:06 AM Wound Care Debridement Timeout: Verbal Consent obtained?: Yes Written Consent obtained?: Yes Consent given by: Patient Immediately prior to procedure a time out was called to verify the correct patient, procedure, equipment, product support technician and site/side marked as required Timeout performed: [...] tolerated well (...................... ....................... ....................... ...... ...............) [facility] Basic Metabolic Panelon 02-01 Anion gap molar conc 15 mmol/L 10 - 20 mmol/L [facility] Calcium mass conc 7.6 mg/dL Low 8.4 - 10.2 mg/dL [facility] Chloride molar conc 104 mmol/L 98 - 108 mmol/L [facility] Creatinine mass conc 0.55 mg/dL 0.4 - 1.1 mg/dL [facility] GFR/1.73 sq M predicted among non-blacks MDRD vol rate/area (S/P/Bld) The eGFR should be used for monitoring renal function only and not for medication dosing. [facility] GFR/1.73 sq M.predicted CKD-EPI vol rate/area (S/P/Bld) 103 >=60 mL/min/1.73 m2 [facility] Glucose mass conc 104 mg/dL High 65 - 99 mg/dL [place] HCO3 molar conc 22 mmol/L 21 - 32 mmol/L [facility] Interpretation and review of laboratory results Abnormal [facility] Potassium molar conc 3.3 mmol/L Low 3.5 - 5.1 mmol/L [facility] Sodium molar conc 138 mmol/L 135 - 145 mmol/L [facility] Urea nitrogen mass conc 12 mg/dL 8 - 25 mg/dL [facility] Urea nitrogen/Creatinine mass ratio 21.8 mg/mg High [facility] CBC WITH AUTO DIFFERENTIALon 02-28-2019 Basophils #/vol (Bld) 0.05 10*3/uL [facility] Basophils/100 WBC (Bld) 0.5 % [facility] Eosinophils #/vol (Bld) 0.01 10*3/uL [facility] Eosinophils/100 WBC (Bld) 0.1 % [facility] Erythrocyte distribution width Entitic volume (RBC) 13.7 % 11.6 - 14.8 % [facility] Hematocrit Volume Fraction (Bld) 30.6 % Low 36 - 46 % [facility] Hemoglobin mass conc (Bld) 9.8 g/dL Low 12 - 16 g/dL [facility] Immature granulocytes #/vol (Bld) 0.07 10*3/uL [facility] Immature granulocytes/100 WBC (Bld) 0.60 % [facility] Comment on above: The IG parameter is the percentage of metamyelocytes, myelocytes, and promyelocytes. Interpretation and review of laboratory results Abnormal [facility] Lymphocytes #/vol (Bld) 2.11 10*3/uL [facility] Lymphocytes/100 WBC (Bld) 19.0 % [facility] MCH Entitic mass (RBC) 28.2 pg 26 - 34 pg [facility] MCHC mass conc (RBC) 32.0 g/dL 31 - 37 g/dL [facility] MCV Entitic volume (RBC) 88.2 fL 80 - 100 fL [facility] Monocytes #/vol (Bld) 0.94 10*3/uL [facility] Monocytes/100 WBC (Bld) 8.5 % [facility] Neutrophils #/vol (Bld) 7.91 10*3/uL High [facility] Neutrophils/100 WBC (Bld) 71.3 % [facility] Nucleated RBC #/vol (Bld) 0.00 10*3/uL [facility] Nucleated RBC/100 WBC Ratio (Bld) 0.0 % [facility] Platelet mean volume Entitic volume (Bld) 9.2 fL 9 - 15.5 fL [facility] Platelets #/vol (Bld) 327 10*3/uL [facility] RBC #/vol (Bld) 3.47 10*6/uL Low [facility] WBC #/vol (Bld) 11.09 10*3/uL High [facility] alth POC Glucoseon 02-28-2019 Glucose mass conc 171 mg/dL High 65 - 99 mg/dL [place] Interpretation and review of laboratory results Abnormal [facility] Glucose mass conc 76 mg/dL 65 - 99 mg/dL [place] Interpretation and review of laboratory results Normal [facility] Glucose mass conc 171 mg/dL High 65 - 99 mg/dL [place] Interpretation and review of laboratory results Abnormal [facility] CBC WITH AUTO DIFFERENTIALon 02-27-2019 Basophils #/vol (Bld) 0.05 10*3/uL [facility] Basophils/100 WBC (Bld) 0.5 % [facility] Eosinophils #/vol (Bld) 0.13 10*3/uL [facility] Eosinophils/100 WBC (Bld) 1.2 % [facility] Erythrocyte distribution width Entitic volume (RBC) 13.8 % 11.6 - 14.8 % [facility] Hematocrit Volume Fraction (Bld) 39.1 % 36 - 46 % [facility] Hemoglobin mass conc (Bld) 12.7 g/dL 12 - 16 g/dL [facility] Immature granulocytes #/vol (Bld) 0.06 10*3/uL [facility] Immature granulocytes/100 WBC (Bld) 0.60 % [facility] Comment on above: The IG parameter is the percentage of metamyelocytes, myelocytes, and promyelocytes. Interpretation and review of laboratory results Abnormal [facility] Lymphocytes #/vol (Bld) 1.32 10*3/uL [facility] Lymphocytes/100 WBC (Bld) 12.2 % [facility] MCH Entitic mass (RBC) 28.6 pg 26 - 34 pg [facility] MCHC mass conc (RBC) 32.5 g/dL 31 - 37 g/dL [facility] MCV Entitic volume (RBC) 88.1 fL 80 - 100 fL [facility] Monocytes #/vol (Bld) 0.50 10*3/uL [facility] Monocytes/100 WBC (Bld) 4.6 % [facility] Neutrophils #/vol (Bld) 8.79 10*3/uL High [facility] Neutrophils/100 WBC (Bld) 80.9 % [facility] Nucleated RBC #/vol (Bld) 0.00 10*3/uL [facility] Nucleated RBC/100 WBC Ratio (Bld) 0.0 % [facility] Platelet mean volume Entitic volume (Bld) 9.2 fL 9 - 15.5 fL [facility] Platelets #/vol (Bld) 369 10*3/uL [facility] RBC #/vol (Bld) 4.44 10*6/uL [facility] WBC #/vol (Bld) 10.85 10*3/uL [facility] alth POC Glucoseon 02-27-2019 Glucose mass conc 313 mg/dL High 65 - 99 mg/dL [place] Interpretation and review of laboratory results Abnormal [facility] Glucose mass conc 328 mg/dL High 65 - 99 mg/dL [place] Interpretation and review of laboratory results Abnormal [facility] Glucose mass conc 201 mg/dL High 65 - 99 mg/dL [place] Interpretation and review of laboratory results Abnormal [facility] Glucose mass conc 208 mg/dL High 65 - 99 mg/dL [place] Interpretation and review of laboratory results Abnormal [facility] SCAN OTHER ORDERSon 02-28-20 19 Ordered by an unspecified provider. [facility] XR Elbow Right 3+ Views (Sta ndard)on [...] surgery. COMPARISON: Right elbow radiographs 07/21/2016 from [facility]. FINDINGS: Three views of the [...] soft tissue air compatible with recent [facility] 6:29 [...] surgery. COMPARISON: Right elbow radiographs 07/21/2016 from [facility]. FINDINGS: Three views of the [...] considered less likely. 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 Linear lucency adjacent to the ulnar stem in the region of the base of the coronoid process probably represents a mildly prominent cement bone interface. A nondisplaced fracture is considered less likely. JRS/trn Workstation ID: [id number] [facility] XR Fluoroscopy Timeon 2018 This is an auto finalized result. Please refer to patient chart for further information. [facility] Creatinine, Serumon 02-22-20 19 Creatinine mass conc 0.57 mg/dL 0.4 - 1.1 mg/dL [facility] GFR/1.73 sq M predicted among non-blacks MDRD vol rate/area (S/P/Bld) The eGFR should be used for monitoring renal function only and not for medication dosing. [facility] GFR/1.73 sq M.predicted CKD-EPI vol rate/area (S/P/Bld) 102 >=60 mL/min/1.73 m2 [facility] Interpretation and review of laboratory results Normal [facility] ECG 12-LEADon 02-21-2019 Atrial Rate 78 BPM [facility] P [place] 67 degrees [facility] P-R Interval 142 ms [facility] Q-T Interval 402 ms [facility] QRS Duration 78 ms [facility] QTC Calculation (Bezet) 458 ms [facility] R [place] 47 degrees [facility] T [place] 52 degrees [facility] Ventricular Rate 78 BPM [facility] Normal sinus rhythm Normal ECG Confirmed by SVETA SILVA D.O. ([id number]) on 02/21/2019 1:00:32 PM [facility] Glucoseon 02-21-2019 Glucose mass conc 407 mg/dL Critically high 65 - 99 mg/dL [facility] Interpretation and review of laboratory results Abnormal [facility] XR Cervical Spine with Flexi on and Extension 6+ Viewson 02-21-2019 Very minimal degenerative disc disease at C4-5. No fracture. No instability in flexion or extension. PRL/pji Workstation ID: [id number] [facility] EXAMINATION: XR CERVICAL SPINE WITH FLEXION AND EXTENSION 6+ VIEWS HISTORY: ORDERING SYSTEM PROVIDED HISTORY: pat, TECHNOLOGIST PROVIDED HISTORY: Reason for exam: pat for intubation Illness/Other Cancer History: no Surgery, RadiationHistory: no Encounter Type: Initial Additional signs and symptoms: patient has rheumatoid arthritis ORDERING SYSTEM PROVIDED DIAGNOSIS CODES: Z01.818 Pre-op exam COMPARISON: CT from [facility] 05/03/2013. FINDINGS: Seven images including flexion-extension. Minimal anterior discogenic spurring is seen at C4-5. No spondylolisthesis or fracture or prevertebral soft tissue swelling. No instability in flexion with specific attention to the atlantoaxial joint. No instability in extension. Facet arthrosis most prominent on the left between C3 and C6. [facility] Interface, Rad In [facility] [employer] [employer] - [...] CODES: Z01.818 Pre-op exam COMPARISON: CT from [facility] 05/03/2013. FINDINGS: Seven images including flexion-extension. Minimal [...] flexion or extension. PRL/pji Workstation ID: [id number] [facility] PROGRESSon 04-18-2017 PROGRESS HNO ID: [id number]: Kelsey (Rt) DenoService: RadiologyAuthor Type: TechnicianType: Progress NotesFiled: 04/18/2017 2:29 PMNote Text: Radiology Service Progress NotePATIENT NAME: Elsa CatalanMRN: [id number] OF SERVICE: April 18, 2017TIME: 2:27 PMPATIENT [...] Hunt RT (R)April 18, 2017 2:27 PM [facility] XR CERVICAL AP/LAT/OBLon XR CERVICAL AP/LAT/OBL * [...] bilaterally.IMPRESSION: DEGENERATIVE DISC AND FACET DISEASE.Transcriptionis t: PSCB Transcribe Date/Time: Apr 18 2017 3:37PDictated by : KEMI DE LEON MDThis examination was interpreted and the report reviewed and electronically signed by: KEMI DE LEON MD on Apr 18 2017 3:39PM EST [facility] XR ELBOW M3V UNIon 7 XR ELBOW M3V UNI * * [...] JOINTS PROGRESSED SINCE THE PREVIOUS EXAMINATION.Transcripti onist: SUSANA Transcribe Date/Time: Apr 18 2017 3:33PDictated by : Jeevan MARIA examination was interpreted and the report reviewed and electronically signed by: KEMI DE LEON MD on Apr 18 2017 3:35PM EST [facility] XR SHOULDER M2V UNIon 2016 XR SHOULDER M2V UNI * * [...] BONY ABNORMALITY, NO CHANGE COMPARED TO PREVIOUS EXAM.Artificial Intelligence Specialist: SUSANA Transcribe Date/Time: Apr 18 2017 3:35PDictated by : Jeevan MARIA examination was interpreted and the report reviewed and electronically signed by: KEMI DE LEON MD on Apr 18 2017 3:37PM EST [facility] Vital Signs Date Time Vital Sign Value Performing Clinician Alin tam 05-18-2024 10:16040 Body mass index (BMI) [Ratio] 25.04 kg/m2 Pepe Carter MD Work Phone: [facility] 05-18-2024 10: Body weight 66.2 kg Pepe Carter MD Work Phone: [facility] 05-18-2024 10:16040 Diastolic blood pressure 91 mm[Hg] Pepe Carter MD Work Phone: [facility] 05-18-2024 10:16-0400 Heart rate 90 /min Pepe Carter MD Work Phone: [facility] 05-18-2024 10:16-0400 Systolic blood pressure 155 mm[Hg] Pepe Carter MD Work Phone: [facility] 11-23-2023 08:58-0500 Body weight 68.95 kg Ppee Carter MD Work Phone: [facility] 11-23-2023 08:58-0500 Diastolic blood pressure 83 mm[Hg] Pepe Carter MD Work Phone: [facility] 11-23-2023 08:58-0500 Heart rate 81 /min Pepe Carter MD Work Phone: [facility] 11-23-2023 08:58-0500 Systolic blood pressure 129 mm[Hg] Pepe Carter MD Work Phone: [facility] 08-11-2022 09:13-0500 Body weight 66.13 kg Pepe Carter MD Work Phone: [facility] 08-11-2022 09:13-0500 Diastolic blood pressure 72 mm[Hg] Pepe Carter MD Work Phone: [facility] 08-11-2022 09:13-0500 Heart rate 83 /min Pepe Carter MD Work Phone: [facility] 08-11-2022 09:13-0500 SaO2% (BldA) [Mass fraction] 99 % Pepe Carter MD Work Phone: [facility] 08-11-2022 09:13-0500 Systolic blood pressure 115 mm[Hg] Pepe Carter MD Work Phone: [facility] 04-08-2020 17:10-0400 BP Diastolic 72 mm[Hg] [facility] 17:10-0400 BP Systolic 145 mm[Hg] Ayde [facility] 04-08-2020 17:10-0400 Pulse (Heart Rate) 94 /min [facility] 07-08-[facility] 17:10-0400 Pulse Oximetry 98 % Ayde Almanzar [facility] 04-08-2020 17:10-0400 Respiratory Rate 13 /min Ayde Almanzar [facility] 04-08-2020 17:00-0400 Body Temperature 97.39 [degF] Ayde Almanzar [facility] 04-08-2020 09:55-0400 BMI (Body Mass Index) 24.6 kg/m2 Ayde Almanzar [facility] 04-08-2020 09:55-0400 Body weight 65 kg Ayde Almanzar [facility] 04-08-2020 09:55-0400 Height 162.6 cm Ayde Almanzar [facility] 10-14-2019 15:05-0500 Respiratory Rate 14 /min Ted [facility] 10-14-2019 07:13-0500 Body Temperature 98.29 [degF] [facility] 10-14-2019 07:13-0500 BP Diastolic 86 mm[Hg] [facility] 10-14-2019 07:13-0500 BP Systolic 134 mm[Hg] [facility] 10-14-2019 07:13-0500 Pulse (Heart Rate) 81 /min [facility] 10-14-2019 07:13-0500 Pulse Oximetry 97 % [facility] 10-12-2019 12:49-0500 BMI (Body Mass Index) 24.22 kg/m2 [facility] 10-12-2019 12:49-0500 Body weight 64 kg [facility] 10-12-2019 12:49-0500 Height 162.6 cm [facility] 10-08-2019 10:45-0500 BMI (Body Mass Index) 24.55 kg/m2 Rose Mendoza [facility] 10-08-2019 10:45-0500 Body weight 64.86 kg Rose Mendoza [facility] 10-08-2019 10:45-0500 Height 162.6 cm Rose Mendoza [facility] 10-08-2019 10:40-0500 Body Temperature 98.01 [degF] Rose Mendoza [facility] 10-08-2019 10:40-0500 BP Diastolic 99 mm[Hg] Rose Mendoza [facility] 10-08-2019 10:40-0500 BP Systolic 179 mm[Hg] Rose Mendoza [facility] 10-08-2019 10:40-0500 Pulse (Heart Rate) 95 /min Rose Mendoza [facility] 10-08-2019 10:40-0500 Respiratory Rate 16 /min Rose Mendoza [facility] 09-05-2019 11:12-0500 Body Temperature 99.19 [degF] [place] [facility] 11:12-0500 BP Diastolic 62 mm[Hg] [facility] 09-05-2019 11:12-0500 BP Systolic 99 mm[Hg] [facility] 09-05-2019 11:12-0500 Pulse (Heart Rate) 96 /min [facility] 09-05-2019 11:12-0500 Pulse Oximetry 97 % [facility] 09-05-2019 11:12-0500 Respiratory Rate 12 /min [facility] 09-04-2019 09:34-0500 BMI (Body Mass Index) 25.05 kg/m2 [facility] 09-04-2019 09:34-0500 Body weight 66.2 kg [facility] 09-04-2019 09:34-0500 Height 162.6 cm [facility] 08-28-2019 13:08-0500 BMI (Body Mass Index) 24.22 kg/m2 [facility] 08-28-2019 13:08-0500 Body Temperature 98.8 [degF] [facility] 08-28-2019 13:08-0500 Body weight 64 kg [facility] 08-28-2019 13:08-0500 BP Diastolic 92 mm[Hg] [facility] 08-28-2019 13:08-0500 BP Systolic 147 mm[Hg] [facility] 08-28-2019 13:08-0500 Height 162.6 cm [facility] 08-28-2019 13:08-0500 Pulse (Heart Rate) 85 /min [facility] 08-28-2019 13:08-0500 Pulse Oximetry 96 % [facility] 08-28-2019 13:08-0500 Respiratory Rate 13 /min [facility] 04-30-2019 13:45-0400 BP Diastolic 95 mm[Hg] Rose Mendoza [facility] 04-30-2019 13:45-0400 BP Systolic 174 mm[Hg] Rose Mendoza [facility] 04-30-2019 13:45-0400 Pulse (Heart Rate) 93 /min Rose Mendoza [facility] 04-30-2019 13:42-0400 Body Temperature 98.49 [degF] Rose Mendoza [facility] 04-30-2019 13:42-0400 Respiratory Rate 18 /min Rose Mendoza [facility] 04-23-2019 15:12-0400 BMI (Body Mass Index) 24.55 kg/m2 Rosecorey Mendoza [facility] 04-23-2019 15:12-0400 Body Temperature 98.2 [degF] Rose Mendoza [facility] 04-23-2019 15:12-0400 Body weight 64.86 kg Rose Mendoza [facility] 04-23-2019 15:12-0400 BP Diastolic 85 mm[Hg] Rose Mendoza [facility] 04-23-2019 15:12-0400 BP Systolic 162 mm[Hg] Rose Mendoza [facility] 04-23-2019 15:12-0400 Height 162.6 cm Rosecorey Mendoza [facility] 04-23-2019 15:12-0400 Pulse (Heart Rate) 92 /min Rosecorey Mendoza [facility] 04-23-2019 15:12-0400 Respiratory Rate 18 /min Rosecorey Mendoza [facility] 02-28-2019 14:05-0400 Respiratory Rate 12 /min [facility] 02-28-2019 11:38-0400 Body Temperature 97.9 [degF] [facility] 02-28-2019 11:38-0400 BP Diastolic 91 mm[Hg] [facility] 02-28-2019 11:38-0400 BP Systolic 155 mm[Hg] [facility] 02-28-2019 11:38-0400 Pulse (Heart Rate) 83 /min [facility] 02-28-2019 11:38-0400 Pulse Oximetry 99 % [facility] 02-27-2019 06:43-0400 BMI (Body Mass Index) 24.41 kg/m2 [facility] 02-27-2019 06:43-0400 Height 162.6 cm [facility] 02-27-2019 06:43-0400 Weight 64.5 kg Ayde Almanzar [facility] 02-21-2019 11:47-0400 BMI (Body Mass Index) 24.22 kg/m2 [facility] 02-21-2019 11:47-0400 Body Temperature 98.01 [degF] [facility] 02-21-2019 11:47-0400 BP Diastolic 105 mm[Hg] [facility] 02-21-2019 11:47-0400 BP Systolic 190 mm[Hg] [facility] 02-21-2019 11:47-0400 Height 162.6 cm [facility] 02-21-2019 11:47-0400 Pulse (Heart Rate) 81 /min [facility] 02-21-2019 11:47-0400 Pulse Oximetry 98 % [facility] 02-21-2019 11:47-0400 Respiratory Rate 18 /min [facility] 02-21-2019 11:47-0400 Weight 64 kg [facility] Encounters Encounter Date Encounter Type Care Provider Facility Start: 06-06-2024 End: 06-06-2024 ambulatory PEPE CARTER Facility:[facility] Start: 06-06-2024 End: 06-06-2024 Subsequent hospital visit by physician Sparkle [facility] Comment on above: Trigger middle finge r of right hand [M65.331] Start: 05-18-2024 End: 05-18-2024 ambulatory PEPE CARTER Facility:[facility] Start: 05-18-2024 End: 05-18-2024 Patient encounter procedure Pepe Carter MD Work Phone: Rheumatology Comment on above: Rheumatoid arthritis of multiple sites without organ or system involvement with positive rheumatoid factor (HCC) (Primary Dx); Postmenopausal osteoporosis of multiple sites; Chronic bilateral low back pain with right-sided sciatica; Trigger middle finger of right hand; Bilateral hand pain; Chronic elbow pain, right; Joint stiffness of multiple sites; Long-term use of high-risk medication; Secondary osteoarthritis of multiple sites; Dry eye syndrome of both eyes; Chronic pain of both shoulders; Bilateral wrist pain; Elevated sed rate; Vitamin D deficiency; Elevated C-reactive protein (CRP); Cervicalgia Start: 05-15-2024 Telephone encounter Pepe allison MD Work Phone: Rheumatology Comment on above: Results Start: 05-14-2024 End: 05-14-2024 ambulatory PRETTY FERMIN Facility:[facility] Start: 12-29-2023 Telephone encounter Pepe allison MD Work Phone: Rheumatology Comment on above: Patient Question Start: 11-23-2023 End: 11-23-2023 ambulatory PEPE CARTER Facility:[facility] Start: 11-23-2023 End: 11-23-2023 Patient encounter [...] Phone: Rheumatology Comment on above: Results Start: 12-07-2022 End: 12-08-[address] LATASHA HAYES Facility:[facility] Start: 11-02-2022 End: 11-03-[address] LATASHA HAYES Facility:[facility] Start: 09-19-2022 End: 09-19-2022 ambulatory TAWANDA COOK Facility:[facility] Start: 08-11-2022 End: 08-11-2022 Patient encounter [...] 07-27-2022 Refill Pepe Carter MD Work Phone: [address] [place] [address] Comment on above: Refill Request Start: 07-06-2022 End: 07-07-[address] LATASHA HAYES Facility:[facility] Start: 04-17-2022 Refill Pepe Carter MD Work Phone: Internal [facility] [place] Comment on above: Refill Request Start: 02-01-2022 End: 02-02-2022 ambulatory NOE WINN Facility:[facility] Start: 01-14-2022 End: 01-15-2022 ambulatory TAWANDA COOK Facility:[facility] Start: 01-13-2022 End: 01-14-[address] STU SAMUEL Facility:[facility] Start: 12-31-2021 End: 01-01-2022 ambulatory TAWANDA COOK Facility:[facility] Start: 12-30-2021 End: 12-30-2021 ambulatory Janel Chi APRN.TICKET SELLER Work Phone: Rheumatology Comment on above: Rheumatoid arthritis of multiple sites without organ or system involvement with positive rheumatoid factor (HCC) (Primary Dx); Bilateral elbow joint pain; Fibromyalgia; Primary osteoarthritis of both wrists; Synovitis of hand; Long-term use of high-risk medication; Joint stiffness of multiple sites; Bilateral hand pain Start: 12-30-2021 End: 12-30-2021 Telemedicine consultation with patient Janel Chi APRN.TICKET SELLER Work Phone: [facility] Start: 12-29-2021 Telephone encounter Pepe allison MD Work Phone: Rheumatology Comment on above: Results Start: 12-28-2021 End: 12-29-2021 ambulatory TAWANDA COOK Facility:[facility] Start: 07-26-2021 End: 07-26-2021 Subsequent hospital visit by physician Sparkle [facility] Comment on above: Chronic elbow pain, left [M25.522, G89.29] Start: 12-08-2020 End: 12-08-2020 Orders Only Migdalia Bhatiamalvin Work Phone: [facility] Provider Hospitalist Start: 04-08-2020 End: 04-08-2020 Patient encounter procedure [facility] Start: 04-08-2020 End: 04-08-2020 Subsequent hospital visit by physician Ayde Almanzar Work Phone: [facility] Comment on above: Post-op pain (Primar y Dx) Start: 04-06-2020 End: 04-06-2020 Patient encounter procedure [facility] Start: 04-01-2020 End: 04-01-2020 Patient encounter procedure [facility] Start: 10-14-2019 Patient encounter procedure DEREK Wilson [facility] Start: 10-12-2019 End: 10-14-2019 Patient encounter procedure PRETTY Aaron [facility] Start: 10-12-2019 End: 10-14-2019 Emergency department patient visit Ted Delvalle Work Phone: [facility] Comment on above: Complication of proc edure, subsequent encounter (Primary Dx); Acute neuritis; Non-healing wound of upper extremity, left, initial encounter Start: 10-08-2019 End: 10-08-2019 Patient encounter procedure ROSE MENDOZA [facility] Start: 10-08-2019 End: 10-08-2019 Patient encounter procedure Rose Mendoza Work Phone: [facility] Comment on above: Skin ulcer of elbow with fat layer exposed (HCC) (Primary Dx); Type 2 diabetes mellitus with other skin ulcer, with long-term current use of insulin (HCC); Rheumatoid arthritis involving left elbow with positive rheumatoid factor (HCC); Fibromyalgia affecting forearm Start: 09-04-2019 End: 09-05-2019 Evaluation and management of inpatient [facility] Start: 09-04-2019 End: 09-05-2019 Evaluation and management of inpatient [facility] Work Phone: [facility] Comment on above: Post-operative pain (Primary Dx); Elbow pain, unspecified laterality Start: 08-28-2019 End: 08-28-2019 Patient encounter procedure [facility] Start: 08-28-2019 End: 08-28-2019 Patient encounter procedure [facility] Work Phone: [facility] Pread[facility] Comment on above: Preop examination [...] 04-30-2019 End: 04-30-2019 Patient encounter procedure ROSE MENDOZA [facility] Start: 04-30-2019 End: 04-30-2019 Office outpatient visit 5 minutes Rose Mendoza Work Phone: [facility] Comment on above: Skin ulcer of elbow with fat layer exposed (HCC) (Primary Dx); Type 2 diabetes mellitus with other skin ulcer, with long-term current use of insulin (HCC); Rheumatoid arthritis involving right elbow, unspecified rheumatoid factor presence (HCC); Fibromyalgia affecting forearm; Essential hypertension Start: 04-23-2019 Patient encounter procedure AUNDREA CLIFFORD [facility] Start: 04-23-2019 End: 04-23-2019 Patient encounter procedure Aundrea Clifford Work Phone: [facility] Comment on above: Skin ulcer of elbow with fat layer exposed (HCC) (Primary Dx); Type 2 diabetes mellitus with other skin ulcer, with long-term current use of insulin (HCC); Rheumatoid arthritis involving right elbow, unspecified rheumatoid factor presence (HCC); Fibromyalgia affecting forearm; Essential hypertension Start: 02-27-2019 End: 02-28-2019 Patient encounter procedure Ayde Almanzar Work Phone: [facility] Comment on above: Elbow injury, unspec ified laterality, sequela (Primary Dx) Start: 02-21-2019 End: 02-21-2019 Patient encounter procedure Sveta Silva Work Phone: [facility] Comment on above: Pre-op exam Start: 02-21-2019 End: 02-21-2019 Patient encounter procedure Ayde Almanzar Work Phone: [facility] Comment on above: Pre-op exam [...] thrombosis (DVT) prophylaxis Start: 04-18-2017 Ambulatory PEPE CARTER [facility] Procedures Date Procedure Procedure Detail Performing Clinician [...] 10-14-2019 Glucose [Mass/volume ] in Blood Generic [facility] Work Phone: Start: 10-14-2019 Glucose [Mass/volume ] in Blood Generic [facility] Work Phone: Start: 10-14-2019 Basic metabolic 2000 panel - Serum or Plasma Rochelle Salmeron Work Phone: Start: 10-14-2019 Complete blood count with white cell differential, automated Rochelle Salmeron Work Phone: Start: 10-14-2019 Complete blood count with white cell differential, manual Rochelle Salmeron Work Phone: Start: 10-13-2019 Glucose [Mass/volume ] in Blood Generic [facility] Work Phone: Start: 10-13-2019 Glucose [Mass/volume ] in Blood Generic [facility] Work Phone: Start: 10-13-2019 Glucose [Mass/volume ] in Blood Generic [facility] Work Phone: Start: 10-13-2019 End: 10-13-2019 INCISION AND DRAINAGE UPPER EXTREMITY Ayde Almanzar Work Phone: Start: 10-13-2019 Glucose [Mass/volume ] in Blood Generic [facility] Work Phone: Start: 10-12-2019 Glucose [Mass/volume ] in Blood Generic [facility] Work Phone: Start: 10-12-2019 Glucose [Mass/volume ] in Blood Generic [facility] Work Phone: Start: 10-12-2019 Complete blood count with white cell differential, automated Ted Delvalle Work Phone: Start: 10-12-2019 Complete blood count with white cell differential, manual Ted Delvalle Work Phone: Start: 10-12-2019 Comprehensive metabo lic 2000 panel - Serum or Plasma Ted Delvalle Work Phone: Start: 10-12-2019 INR in Platelet poor plasma by Coagulation assay Ted Delvalle Work Phone: Start: 10-08-2019 Debridement Rosecorey Mendoza Work Phone: Start: 09-05-2019 Glucose [Mass/volume ] in Blood Ayde Almanzar Work Phone: Start: 09-05-2019 Radiologic exam ches t single view Marilyn Ramirez Work Phone: Start: 09-05-2019 Urinalysis Marilyn Ramirez Work Phone: Start: 09-05-2019 URINE MELGAR CONTAINER Th rico Almanzar Work Phone: Start: 09-05-2019 Glucose [Mass/volume ] in Blood Ayde Almanzar Work Phone: Start: 09-05-2019 Basic metabolic 2000 panel - Serum or Plasma Fela Sonja Jeanine Work Phone: Start: 09-05-2019 Complete blood count with white cell differential, automated Eflaaj Solorzano Work Phone: Start: 09-05-2019 Complete blood count with white cell differential, manual Felaaj Solorzano Work Phone: Start: 09-05-2019 Thyrotropin [Units/v olume] in Serum or Plasma by Detection limit <= 0.005 mIU/L Selwyn Rader Work Phone: Start: 09-04-2019 Glucose [Mass/volume ] in Blood Ayde Almanzar Work Phone: Start: 09-04-2019 Glucose [Mass/volume ] in Blood Ayde Almanzar Work Phone: Start: 09-04-2019 Radex elbow complete minimum 3 views Fela Sonja Jeanine Work Phone: Start: 09-04-2019 Glucose [Mass/volume ] [...] Cardiologi st Generic Start: 04-23-2019 Debridement Rose Mendoza Work Phone: Start: 02-28-2019 Glucose [Mass/volume [...] Treatment Date Care Activity Detail Author Start: 12-24-2024 End: 12-24-2024 Patient encounter procedure 12/24/2024 8:55 AM EDT Appointment Radiology [address] [place] [address] Postmenopausal osteoporosis of multiple sites [M81.0] Radiology Comment on above: Postmenopausal osteo porosis of multiple sites [M81.0] Start: 11-22-2024 End: 11-22-2024 Patient encounter procedure 11/22/2024 12:20 PM EST Office Visit Rheumatology [address] [place] [address] Pepe Carter MD [address] [place] [address] for RA/osteoarthritis/osteo penia fu OV 6months. Rheumatology Comment on above: for RA/osteoarthriti s/osteopenia fu OV 6months. Start: 09-04-2024 End: 09-04-2024 Patient encounter procedure 09/04/2024 2:00 PM EST Office Visit Orthopaedics [address] [place] [address] Kashmir Pereira MD [address] [place] [address] Trigger middle finger of right hand [M65.331] Orthopaedics Comment on above: Trigger middle finge r of right hand [M65.331] Start: 08-15-2024 End: 05-15-2025 25-hydroxyvitamin D3 [Mass/volume] in Serum or Plasma VITAMIN D 25 HYDROXY Lab Routine Vitamin D deficiency Expected: 08/15/2024 (Approximate), Expires: 05/15/2025 [facility] Comment on above: Expected: 08/15/2024 (Approximate), Expires: 05/15/2025 Start: 08-15-2024 End: 05-15-2025 C reactive protein [Mass/volume] in Serum or Plasma C-REACTIVE PROTEIN Lab Routine Elevated sed rate Elevated C-reactive protein (CRP) Expected: 08/15/2024 (Approximate), Expires: 05/15/2025 [facility] Comment on above: Expected: 08/15/2024 (Approximate), Expires: 05/15/2025 Start: 08-15-2024 End: 05-15-2025 CBC panel - Blood by Automated count COMPLETE BLOOD COUNT Lab Routine Anemia of chronic disease Expected: 08/15/2024 (Approximate), Expires: 05/15/2025 [facility] Comment on above: Expected: 08/15/2024 (Approximate), Expires: 05/15/2025 Start: 08-15-2024 End: 05-15-2025 Comprehensive metabolic 2000 panel - Serum or Plasma COMPREHENSIVE METABOLIC PANEL Lab Routine Elevated LFTs Expected: 08/15/2024 (Approximate), Expires: 05/15/2025 [facility] Work Phone: Comment on above: Expected: 08/15/2024 (Approximate), Expires: 05/15/2025 Start: 08-15-2024 End: 05-15-2025 Erythrocyte sedimentation rate SEDIMENTATION RATE, WESTERGREN Lab Routine Elevated sed rate Elevated C-reactive protein (CRP) Expected: 08/15/2024 (Approximate), Expires: 05/15/2025 [facility] Comment on above: Expected: 08/15/2024 (Approximate), Expires: 05/15/2025 Start: 06-02-2024 Influenza vaccination [facility] Start: 2024 Advance Directive Discussion Advance Directive Discussion [facility] Start: 2024 Screening for osteoporosis Bone Density Screening [facility] Start: 05-22-2024 End: 05-22-2024 Patient encounter procedure 05/22/2024 9:15 AM EDT Appointment Radiology [address] [place] [address] Trigger middle finger of right hand [M65.331] Radiology Comment on above: Trigger middle finge r of right hand [M65.331] Start: 05-18-2024 End: 05-18-2024 Patient encounter procedure 05/18/2024 10:20 AM EDT Office Visit Rheumatology [address] [place] [address] Pepe Carter MD [address] [place] [address] Please schedule follow up visit 05/18/24 via phone/virtual or in office visit RILEY MENCHACA AWARE OF LOCATION Rheumatology Comment on above: Please schedule foll ow up visit 05/18/24 via phone/virtual or in office visit RILEY MENCHACA AWARE OF LOCATION Start: 10-02-2023 Behavioral Health Screening Behavioral Health Screening [facility] Start: 10-02-2023 Depression Assessment Depression Ass essment [facility] Start: 08-28-2023 End: 05-28-2024 25-hydroxyvitamin D3 [Mass/volume] in Serum or Plasma VITAMIN D 25 HYDROXY Lab Routine Vitamin D deficiency Expected: 08/28/2023 (Approximate), Expires: 05/28/2024 [facility] Work Phone: Comment on above: Expected: 08/28/2023 (Approximate), Expires: 05/28/2024 Start: 08-28-2023 End: 05-28-2024 BLOOD TB SCREEN BLOOD TB SCREEN Lab Routine Screening-pulmonary TB Expected: 08/28/2023 (Approximate), Expires: 05/28/2024 [facility] Work Phone: Comment on above: Expected: 08/28/2023 (Approximate), Expires: 05/28/2024 Start: 08-28-2023 End: 05-28-2024 C reactive protein [Mass/volume] in Serum or Plasma C-REACTIVE PROTEIN (CRP) Lab Routine Elevated sed rate Elevated C-reactive protein (CRP) Expected: 08/28/2023 (Approximate), Expires: 05/28/2024 [facility] Work Phone: Comment on above: Expected: 08/28/2023 (Approximate), Expires: 05/28/2024 Start: 08-28-2023 End: 05-28-2024 CBC panel - Blood by Automated count CBC Lab Routine Anemia of chronic disease Expected: 08/28/2023 (Approximate), Expires: 05/28/2024 [facility] Work Phone: Comment on above: Expected: 08/28/2023 (Approximate), Expires: 05/28/2024 Start: 08-28-2023 End: 05-28-2024 Cobalamin (Vitamin B12) [Mass/volume] in Serum or Plasma VITAMIN B12 BLOOD Lab Routine Vitamin B12 deficiency Expected: 08/28/2023 (Approximate), Expires: 05/28/2024 [facility] Work Phone: Comment on above: Expected: 08/28/2023 (Approximate), Expires: 05/28/2024 Start: 08-28-2023 End: 05-28-2024 Comprehensive metabolic 2000 panel - Serum or Plasma COMP METABOLIC PANEL Lab Routine Elevated LFTs Expected: 08/28/2023 (Approximate), Expires: 05/28/2024 [facility] Work Phone: Comment on above: Expected: 08/28/2023 (Approximate), Expires: 05/28/2024 Start: 08-28-2023 End: 05-28-2024 Erythrocyte sedimentation rate SED RATE WESTERGREN Lab Routine Elevated sed rate Elevated C-reactive protein (CRP) Expected: 08/28/2023 (Approximate), Expires: 05/28/2024 [facility] Work Phone: Comment on above: Expected: 08/28/2023 (Approximate), Expires: 05/28/2024 Start: 08-11-2023 BP CONTROLLED (<130/80) BP CONTROLLE D (<130/80) [facility] Start: 06-02-2023 Influenza vaccination [facility] Start: 10-31-2022 End: 07-31-2023 25-hydroxyvitamin D3 [Mass/volume] in Serum or Plasma VITAMIN D 25 HYDROXY Lab Routine Vitamin D deficiency Expected: 10/31/2022 (Approximate), Expires: 07/31/2023 [facility] Work Phone: Comment on above: Expected: 10/31/2022 (Approximate), Expires: 07/31/2023 Start: 10-31-2022 End: 07-31-2023 C reactive protein [Mass/volume] in Serum or Plasma C-REACTIVE PROTEIN (CRP) Lab Routine Elevated sed rate Elevated C-reactive protein (CRP) Expected: 10/31/2022 (Approximate), Expires: 07/31/2023 [facility] Work Phone: Comment on above: Expected: 10/31/2022 (Approximate), Expires: 07/31/2023 Start: 10-31-2022 End: 07-31-2023 CBC panel - Blood by Automated count CBC Lab Routine Anemia of chronic disease Expected: 10/31/2022 (Approximate), Expires: 07/31/2023 [facility] Work Phone: Comment on above: Expected: 10/31/2022 (Approximate), Expires: 07/31/2023 Start: 10-31-2022 End: 07-31-2023 Comprehensive metabolic 2000 panel - Serum or Plasma COMP METABOLIC PANEL Lab Routine Elevated LFTs Expected: 10/31/2022 (Approximate), Expires: 07/31/2023 [facility] Work Phone: Comment on above: Expected: 10/31/2022 (Approximate), Expires: 07/31/2023 Start: 10-31-2022 End: 07-31-2023 Erythrocyte sedimentation rate SED RATE WESTERGREN Lab Routine Elevated sed rate Elevated C-reactive protein (CRP) Expected: 10/31/2022 (Approximate), Expires: 07/31/2023 [facility] Work Phone: Comment on above: Expected: 10/31/2022 (Approximate), Expires: 07/31/2023 Start: 10-02-2022 DEPRESSION ASSESSMENT DEPRESSION ASS ESSMENT [facility] Start: 06-02-2022 Influenza vaccination INFLUENZA (#1) [facility] Start: 04-20-2022 Adult depression screening assessment DEPRESSION SCREENING [facility] Start: 03-31-2022 End: 12-29-2022 C reactive protein [Mass/volume] in Serum or Plasma C-REACTIVE PROTEIN (CRP) Lab Routine Elevated sed rate Elevated C-reactive protein (CRP) Expected: 03/31/2022 (Approximate), Expires: 12/29/2022 [facility] Work Phone: Comment on above: Expected: 03/31/2022 (Approximate), Expires: 12/29/2022 Start: 03-31-2022 End: 12-29-2022 CBC panel - Blood by Automated count CBC Lab Routine Anemia of chronic disease Expected: 03/31/2022 (Approximate), Expires: 12/29/2022 [facility] Work Phone: Comment on above: Expected: 03/31/2022 (Approximate), Expires: 12/29/2022 Start: 03-31-2022 End: 12-29-2022 Comprehensive metabolic 2000 panel - Serum or Plasma COMP METABOLIC PANEL Lab Routine Elevated LFTs Expected: 03/31/2022 (Approximate), Expires: 12/29/2022 [facility] Work Phone: Comment on above: Expected: 03/31/2022 (Approximate), Expires: 12/29/2022 Start: 03-31-2022 End: 12-29-2022 Erythrocyte sedimentation rate SED RATE WESTERGREN Lab Routine Elevated sed rate Elevated C-reactive protein (CRP) Expected: 03/31/2022 (Approximate), Expires: 12/29/2022 [facility] Work Phone: Comment on above: Expected: 03/31/2022 (Approximate), Expires: 12/29/2022 Start: 03-31-2022 End: 12-29-2022 VITAMIN D 25 HYDROXY VITAMIN D 25 HYDROXY Lab Routine Vitamin D deficiency Expected: 03/31/2022 (Approximate), Expires: 12/29/2022 [facility] Work Phone: Comment on above: Expected: 03/31/2022 (Approximate), Expires: 12/29/2022 Start: 10-02-2021 DEPRESSION ASSESSMENT DEPRESSION ASS ESSMENT [facility] Start: 08-19-2021 COVID-19 VACCINE (3 - Pfizer risk 4-dose series) COVID-19 VACCINE (3 - Pfizer risk 4-dose series) [facility] Start: 08-19-2021 COVID-19 VACCINE (3 - Pfizer risk series) COVID-19 VACCINE (3 - Pfizer risk series) [facility] Start: 06-02-2021 Influenza vaccination INFLUENZA (#1) [facility] Start: 06-02-2020 Influenza vaccinatio n given Sequential Influenza Vaccine (#1) [facility] Start: 10-15-2019 End: 10-15-2019 Office Visit 10/15/2019 Office Visit [facility] Start: 09-04-2019 End: 09-04-2019 Hospital Encounter [facility] Comment on above: LEFT TOTAL ELBOW ART HROPLASTY WITH ULNAR NERVE RELEASE WITH ANTERIOR TRANSPOSITION, EXCISION RADIAL HEAD Start: 07-20-2019 ANNUAL PCP TEAM LENS GRINDER TIFFANIE DISEASE VISIT ANNUAL PCP TEAM CHRONIC DISEASE VISIT [facility] Start: 06-02-2019 Influenza vaccinatio n given [facility] Start: 2019 RSV Vaccine (1 - 1-d ose 60+ series) RSV Vaccine (1 - 1-dose 60+ series) [facility] Start: 04-30-2019 End: 04-30-2019 Office Visit 04/30/2019 Office Visit [facility] Start: 02-27-2019 End: 02-27-2019 Hospital Encounter [facility] Comment on above: RIGHT TOTAL ELBOW AR THROPLASTY, ULNAR NERVE RELEASE WITH ANTERIOR TRANSPOSITION, RADIAL HEAD EXCISION Start: 02-21-2019 End: 02-21-2020 XR Cervical Spine with Flexion and Extension 6+ Views XR Cervical Spine with Flexion and Extension 6+ Views Imaging Routine Pre-op exam Expected: 02/21/2019, Expires: 02/21/2020 [facility] Comment on above: Expected: 02/21/2019 , Expires: 02/21/2020 Start: 2009 Administration of he rpes zoster vaccine Zoster Vaccines (1 of 2) [facility] Start: 2009 Screening for malign ant neoplasm of colon [facility] Start: 2009 SHINGRIX VACCINE (1 of 2) SHINGRIX VACCINE (1 of 2) [facility] Start: 2004 COLOGUARD (FIT-DNA) COLOGUARD (FIT-D NA) [facility] Start: 2004 Colonoscopy COLONOSCOPY [facility] Start: 2004 COLORECTAL CANCER SCREENING COLORECTAL CANCER SCREENING [facility] Start: [address] COLONOGRAPHY [facility] Start: 2004 FECAL OCCULT BLOOD FECAL OCCULT BLOO D [facility] Start: 2004 Screening for malign ant neoplasm of colon [facility] Start: 2004 [facility] Start: 1999 Mammography [facility] Start: 1999 Screening for malign ant neoplasm of breast Mammogram Screening [facility] Start: 1989 HPV TESTING HPV TESTING [facility] Start: 1989 Screening for malign ant neoplasm of cervix HPV Testing [facility] Start: 1980 PAP TESTING PAP TESTING [facility] Start: 1980 Screening for malign ant neoplasm of cervix Pap Testing [facility] Start: 1978 SHINGRIX VACCINE (1 of 2) SHINGRIX VACCINE (1 of 2) [facility] Start: 1978 Urine microalbumin profile [facility] Start: 1977 Annual PCP Team Synchronizer tiffanie Disease Visit Annual PCP Team Chronic Disease Visit [facility] Start: 1977 Anxiety Screening Anxiety Screening [facility] Start: 1977 BP CONTROLLED (<130/80) BP CONTROLLE D (<130/80) [facility] Start: 1977 Depression Screening Depression Scre ening [facility] Start: 1977 Hepatitis B surface antibody level LDL CHOLESTEROL [facility] Start: 1977 Hepatitis C antibody , confirmatory test Hepatitis C Screening [facility] Start: 1977 HIV SCREENING HIV SCREENING [facility] Start: 1977 HIV screening HIV Screening [facility] Start: 1977 SPIROMETRY SPIROMETRY [facility] Start: 1975 COVID-19 Vaccine (1 of 2) COVID-19 Vaccine (1 of 2) [facility] Start: 1975 ONE PNEUMOVAX PRIOR TO AGE 65 ONE PNEUMOVAX PRIOR TO AGE 65 [facility] Start: 1974 HIV screening HIV Screening [facility] Start: 1971 Adolescent depressio n screening assessment Depression Screening (PHQ9) [facility] Start: 1970 Screening for malign ant neoplasm of cervix Cervical Cancer Screening [facility] Start: 1969 3 comp foot exam completed DIABETIC FOOT EXAM [facility] Start: 1969 Albumin DL <= 20 mg/ L mass conc (U) URINE MICROALBUMIN [facility] Start: 1969 Diabetic foot examination [facility] Start: 1969 Glaucoma screening Dilated Retinal E xam [facility] Start: 1969 Hepatitis B screening URINE ALBUMIN:CREATININE RATIO [facility] Start: 1969 Hepatitis C antibody , confirmatory test DILATED RETINAL EXAM [facility] Start: 1969 Ophthalmic examinati on and evaluation Ophthalmology Exam [facility] Start: 1965 PNEUMOCOCCAL (1 - PCV) PNEUMOCOCCAL (1 - PCV) [facility] Start: 1965 Pneumococcal vaccination [facility] Start: 1965 Pneumococcal Vaccine : 65+ (1 of 2 - PCV) Pneumococcal Vaccine: 65+ (1 of 2 - PCV) [facility] Start: 1964 Hemoglobin A1c measurement HbA1C [facility] Start: 1964 Hemoglobin A1c/Hemoglobin.total in Blood HBA1C [facility] Start: 1962 History and physical examination, annual for health maintenance Wellness Visit [facility] Start: 1959 Hemoglobin A1c/Hemoglobin.total mass fraction (Bld) A1C [facility] Start: 1959 Hepatitis C antibody , confirmatory test HEPATITIS C SCREENING [facility] Start: 1959 Protein mass conc [facility] Start: 1959 Screening for malign ant neoplasm of cervix PAP SMEAR [facility] Start: 1959 Screening for malign ant neoplasm of colon Colorectal Cancer Screening: Colonoscopy [facility] Start: 1959 Screening mammography Mammogram [facility] Start: 1959 Tetanus vaccination [facility] 12 lead ECG [facility] Comment on above: Ordered: 02/20/2019 Ordered: 08/26/2019 Anaerobic microbial culture Tissue Anaerobic Culture Microbiology Routine Skin ulcer of elbow with fat layer exposed (HCC) 10/08/2019 11:20 AM EST [facility] End: 06-17-2025 BD DXA TRABECULAR BONE SCORE (TBS) BD DXA TRABECULAR BONE SCORE (TBS) Radiology Routine Postmenopausal osteoporosis of multiple sites 1 Occurrences starting 05/18/2024 until 06/17/2025 [facility] Comment on above: 1 Occurrences starti ng 05/18/2024 until 06/17/2025 End: 06-17-2025 DXA Skeletal system.axial Views for bone density DXA-AXIAL SKELETON Radiology Routine Postmenopausal osteoporosis of multiple sites 1 Occurrences starting 05/18/2024 until 06/17/2025 [facility] Comment on above: 1 Occurrences starti ng 05/18/2024 until 06/17/2025 End: 06-17-2025 DXA-FOREARM SKELETON DXA-FOREARM SKELETON Radiology Routine Postmenopausal osteoporosis of multiple sites 1 Occurrences starting 05/18/2024 until 06/17/2025 [facility] Work Phone: Comment on above: 1 Occurrences starti ng 05/18/2024 until 06/17/2025 Tissue culture Tissue Aerobic C ulture Microbiology Routine Skin ulcer of elbow with fat layer exposed (HCC) 10/08/2019 11:20 AM EST [facility] XR Cervical Spine wi th Flexion and Extension 6+ Views XR Cervical Spine with Flexion and Extension 6+ Views Imaging Routine Pre-op exam 02/21/2019 1:43 PM EDT [facility] End: 06-17-2024 XR Hand - bilateral PA and Lateral and Oblique XR HAND GENERAL 3V PA/LAT/OBL BILATERAL Radiology Routine Trigger middle finger of right hand Bilateral hand pain 1 Occurrences starting 05/18/2024 until 06/17/2024 [facility] Comment on above: 1 Occurrences starti ng 05/18/2024 until 06/17/2024 XR Hand - bilateral PA and Lateral and Oblique XR HAND GENERAL 3V PA/LAT/OBL BILATERAL Radiology Routine Trigger middle finger of right hand Bilateral hand pain 06/06/2024 9:32 AM EDT [facility] Work Phone: [facility] Immunizations Immunization Date Immunization Notes Care Provider Fa cility 05-30-2020 influenza, injectabl e, quadrivalent, preservative free Pepe Carter MD Work Phone: [facility] 05-30-2020 influenza virus vacc ine, unspecified formulation Pepe Carter MD Work Phone: [facility] 09-03-2018 Influenza, injectabl e, Madin [place] Canine Kidney, preservative free, quadrivalent Pepe Carter MD Work Phone: [facility] Payers Date Payer Category Payer Medicare HUMANA MEDICARE HUMANA GOLD PLUS [id number] 2021-Present [phone] [id number] [place] [id number] [facility] [id number] 2021 Medicare HUMANA MEDICARE HUMANA GOLD PLUS [id number] 2021-Present [phone] [place] [id number] HMO [id number] 2018 Unknown ANTHEM ANTHEM BLUE/PREF/HMO/PPO [id number] 2018-Present [id number] 2018 Unknown [id number] 2018 Unknown [id number] 2018 Unknown ANTHEM ANTHEM BLUE/PREF/HMO/PPO [id number] 2018-Present [id number] 1959 Medicare [id number] 1959 Unknown [id number] [id number] 1959 Unknown [id number] [id number] 1959 Unknown [id number] 2.16.840.1.101798.3.579.2.903 1959 Unknown [id number] 2.16.840.1.715830.3.579.2.902 1959 Unknown [id number] 2.16.840.1.392818.3.579.2.902 1959 Unknown [id number] 2.16.840.1.430754.3.579.2.902 1959 Unknown [id number] 2.16.840.1.661969.3.579.2.902 1959 Unknown [id number] 2.16.840.1.534948.3.579.2.902 1959 Unknown [id number] 2.16.840.1.450033.3.579.2.900 1959 Unknown [id number] 2.16.840.1.529617.3.579.2.593 1959 Unknown [id number] 2.16.840.1.038379.3.579.2.593 1959 Unknown [id number] 2.16.840.1.752609.3.579.2.593 1959 Unknown [id number] 2.16.840.1.239530.3.579.2.593 1959 Unknown [id number] 2.16.840.1.440998.3.579.2.593 1959 Unknown [id number] 2.16.840.1.865554.3.579.2.593 1959 Unknown [id number] 2.16.840.1.831506.3.579.2.593 1959 Unknown [id number] 2.16.840.1.306444.3.579.2.593 1959 Unknown [id number] Social History Date Type Detail Facility Start: 02-21-2019 End: 05-18-2024 Tobacco smoking status NHIS Never smoker [facility] Work Phone: Start: 02-21-2019 History SDOH Alcohol Frequency 1 [facility] Sex Assigned At Not on file [facility] Start: 08-28-2019 End: 09-05-2019 Alcohol intake Lifetime non-drinker (finding) [facility] Start: 12-18-2021 End: 08-11-2022 Exposure to SARS-CoV-2 (event) Not sure [facility] Start: 04-09-2020 End: 05-18-2024 Tobacco use and exposure Never used [facility] Start: 07-26-2021 End: 05-18-2024 Alcohol intake Current non-drinker of alcohol (finding) [facility] Start: 1960 Sex Assigned At Female [facility] Start: 12-20-2021 End: 12-30-2021 Exposure to SARS-CoV-2 (event) Unable to assess [facility] Start: 07-26-2021 End: 02-20-2023 History of Social function [facility] Start: 07-26-2021 End: 02-20-2023 Tobacco use panel [facility] Adult Depression Screening Assessment 3 [facility] Start: 01-06-2021 Gender identity Identifies as female gender (finding) [facility] Start: 01-06-2021 Sexual orientation Heterosexual (fin danielle) [facility] NEGATED: Highlighted rowStart: NINF History of tobacco use Passive smoker [facility] Medical Equipment Procedure Code Equipment Code Equipment Origin al Text Equipment Identifier Dates Cement Bone Anti biotic Simplex P W/Tobramycin Single Dose - [id number] Start: 02-27-2019 Cement Bone Anti biotic Simplex P W/Tobramycin Single Dose - [id number] Start: 02-27-2019 Plug 10mm Cement Sm Diameter - [id number], [id number] FDA Start: 02-27-2019 Component 3in Ul na Plasma Xsm Rt C/M - [id number], [id number] FDA Start: 02-27-2019 Component 4in Hu meral Xsm C/M - [id number] , [id number] FDA Start: 02-27-2019 Cement Bone Anti biotic Simplex P W/Tobramycin Single Dose - [id number] Start: 09-04-2019 Plug 8mm Cement Sm Diameter - [id number] Start: 09-04-2019 Plug 8-10mm Sm I m Canal - [id number] Start: 09-04-2019 Alicia/Pillo To charis Elbow Interchangeable Humeral Assembly Extra Small 4 Inch Length [id number] Start: 09-04-2019 Cokevon/Pillo T otal Elbow Interchangeable Ulnar Assembly Extrasmall Left 3 Inch [id number] Start: 09-04-2019 Plug 8-10mm Sm I m Canal - [id number] Start: 09-04-2019 [id number] Start: 11-18-2016 End: 08-11-2022 Comment on above: Substitute equivalent syringe/needles fo r weekly sq methotrexate To use with Methotre xate Sodium injection. 1ml weekly SQ Clinical Notes 12-29-2021 to 06-06-2024 Pepe Carter MD - 05/18/2024 10:20 AM EDTPatient InstructionsTelephone Encounter - Sandra Huerta MA - 05/16/2024 8:52 AM EDTTelephone Encounter - Sandra Huerta MA - 05/16/2024 8:52 AM EDT Note Date & Type Note Facility 06-06-2024 Note HNO ID: [id number] Author: MAGNOLIA NEWMAN RT(Jimob) Service: ? Author Type: Technologist Type: Progress Notes Filed: 06/06/2024 09:33 Note Text: Radiology Service Progress Note PATIENT NAME: Elsa Catalan DATE OF SERVICE: June 06, 2024 TIME: 9:32 AM PATIENT IDENTITY VERIFICATION COMPLETED USING TWO (2) IDENTIFIERS: Name and Date of confirmed by patient verbally. FALL SCREENING: Has the patient had 2 falls in the last year or 1 fall with injury or currently using an Ambulatory Assistive Device (Walker, Cane, Wheelchair, Crutches, etc.)? No PATIENT GENDER DATA: Female. status: : No status: NO. PATIENT RELEVANT IMPLANT DATA REVIEWED: Not Applicable PATIENT PRESENTS WITH AN IMPLANTABLE OR ATTACHED PLANT TENDER: No RADIOLOGY DEPARTMENT: General X-ray: Exam(s) Completed: Upper Extremity X-Ray(s): Hand, bilateral PERIPHERAL IV DATA: Not applicable SIGNED BY: RT Theodora(R) June 06, 2024 9:32 AM [facility] 05-18-2024 History of Present illness Narrative Face to face Follow up for rheumatoid arthritis/ degenerative joint disease/joint pain/ osteopenia Today's visit 05/18/24:due for labs in 3months. taking gabapentin 300mg 9caps per day since insurance would not pay for 10caps per day, arava 20mg daily, methotrexate 10tabs weekly, daily folic acid, sulfasalazine 1tab 3times a day, synthroid, lidoderm, was on vitamin D 5000 International Units daily with food vs new vitamin D script just received, catapres, colace,prozac,zocor, insulin. No recent oral steroids. 10/2023 eye exam, stable after cataract surgeries. 05/14/24 high glucose 237, esr 37;low vitamin D 30, potassium 3.6;normal rest of cbc, cmp, crp 0.6; 05/14/24 patient having more pain and wants to restart rinvoq 12/29/23 per patient getting recurring sinus and throat infections, ok to hold rinvoq x 3months to see if infections still occur, if yes, please see primary care provider/ENT/immunology 11/23/23 high glucose 146;normal rest of cmp, cbc, esr 15, crp 0.7, vitamin D 34.8, vitamin c33-0706;negative quantiferon tb; Patient's request for medication is as follows: 70% improvement from rinvoq. Walking for exercise. R 3rd finger/R 2nd/3rd MCP/finger swelling. Chronic current pain in R elbow, R forearm, R bicep, Right sided neck, both hands, knees, low back, with radiation to RLE. Reports pain 5/10. Has minimal AM stiffness. Feels safe at [...] other complaints. Last visit supportive care, consult PT, start fall precautions, see pain clinic for long-term pain recommendations/due for back injections, see neurosurgeon L5-S1 surgery, improved with prednisone/take for flares morgan, follow up with UE/hand ortho/postponing R shoulder/wrist surgeries, 40mg kenalog IM 09/16/15, f/u with GI for GI issues eval, much improved with rinvoq daily/received by [facility], continue sq 1ml once every other week [...] PT exercises for contractures, eyedrops per ophthalmology 11/23/23:due for labs. taking methotrexate 10tabs weekly [...] visit supportive care, see pain clinic for long-term pain recommendations/due for back injections, see neurosurgeon/due [...] asthma, much improved with rinvoq daily/received by [facility], continue sq 1ml once every other week injections methotrexate (HOLD 1-2weeks after vaccines), ssz 500mg 3times a day, daily arava, OFF plaquenil, prozac and f/u with PCP for adjustment, nightly and prn wrist splints, PT exercises for contractures, eyedrops per ophthalmology 02/20/23:due for bmd after 11/27/22. [facility] 11/27/20 BMD osteopenia. 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 Had [employer] 07/01/21, 07/22/21. wants to return to xeljanz [...] visit supportive care, see pain clinic for long-term pain recommendations/due for back injections, see neurosurgeon/due [...] for possible surgery eval. Had BMD in [facility], no response. Saw pain clinic and on [...] Almanzar is admitting pt to hospital in [place] to debride wound she has on her [...] pain. 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 [place] better on xeljanz and did not have [...] throat. Hoarse voice. Around ill patients at residential. Declined tablet survey. Tired. Feeling better since [...] buttocks, right arm/bicep whole body flare . [place] great when taking xeljanz XR for two [...] with prozac (started nexium). 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 TESTS: 05/14/24 high glucose 237, esr 37;low vitamin D 30, potassium 3.6;normal rest of cbc, cmp, crp 0.6; 05/14/24 patient having more pain and wants to restart rinvoq 12/29/23 per patient getting recurring sinus and throat infections, ok to hold rinvoq x 3months to see if infections still occur, if yes, please see primary care provider/ENT/immunology 11/23/23 high glucose 146;normal rest of cmp, cbc, esr 15, crp 0.7, vitamin D 34.8, vitamin t34-3335;negative quantiferon tb; Patient's request for medication is as follows: 05/24/23 low potassium 3.4;high esr 35, crp 0.9;normal rest of cbc, cmp, vitamin D 41.5, vitamin b80-6645; 02/16/23 high glucose 260(328), esr 27 (60);normal rest of cmp, cbc, crp<0.3, (3), vitamin D 42.3; 07/29/22 high esr 60 (30), crp 3 (0.7), glucose 328;normal rest of cmp, cbc, vitamin D 36.8; 12/28/21 low potassium 3.3;high esr 30 (44), glucose 339 (480);NL rest of cbc, cmp, vitamin s35-9924, vitamin D 31.5;negative quantiferon tb, hepatitis panel [...] of cmp, cbc, vitamin D 43.5, vitamin w69-1605;negative quantiferon tb; [facility] 11/27/20 BMD osteopenia L1/L3/L4 1.102 g/cm2, tscore-More than half of todays over 40 minute [id number] office visit was spent in counselling/coordination of care, zscore2;L fem neck 0.808g/cm2, tscreo-0.4, zscore1;Total L hip 0.946g/cm2, tscore 0, zscore1.1;R fem neck 0.662g/cm2, tscore-1.7, zscore-0.3, Total R hip 0.781g/cm2, tscore-1, zscore0.3;L foreamr 0.505g/cm2, tscore-1.2, zscore0.3; FRAX major osteoporotic fracture risk 11%;hip fracture risk 1.2%; [facility] 11/27/20 lumbar xrays-mild osteopenia. Significant disc narrowing [...] in diameter. A joint effusion is present [facility] 09/21/15 GI study- unremarkable air contrast upper GI exam [facility] 09/21/15 abdominal ultasound/echo= degree of hepatic steatosis. [...] ck 51, aldolase 4.9, vit D 32.9, d98-8913; 01/21/12 NL cbc, creat 0.54, crp 0.4, [...] lb 1.6 oz (67.6kg) SpO2 97% BP 155/91 Pulse 90 Wt 66.2 kg (145 lb 15.1 oz) BMI 25.04 kg/m Gen; A&Ox3, NAD, very pleasant, better spirits, good mood, uncomfortable, GAIT: ambulates better/less favoring RLE due to [...] release, decreased nodule distal to L elbow, R>L elbow but not complete extension without pain in L hand, L tender, L decreased range of motion due to pain, no swelling/warmth/erythema Shoulders-R bicep/forearm, R>L mild tenderness to palpation with full range of motion (from) , no warmth/erythema Knees: s/p R TKR, R decreased tenderness to palpation, no swelling, full range of motion, no crepitus, no warmth/erythema Ankles/feet: top and bottoms of R>L feet mildly tender to palpation, no synovitis, no swelling/warmth/erythema, from Hips: thighs diffusely sore, fair range of motion, R>L tender to palpation with from Back: right side of neck, s/p lumbar surgery, R lumbar tender to palpation, from CN-II-XII grossly intact, normal pulses/reflexes Strength 5/5, tone normal Skin-no rash;healed shingles on R buttocks and R back of leg Nails-no pitting Trigger points 08/19 IMPRESSION/DIAGNOSIS:05/18/24 M05.79 Rheumatoid arthritis of multiple sites without organ or system involvement with positive rheumatoid factor (HCC) (primary encounter diagnosis) M81.0 Postmenopausal osteoporosis of multiple sites M54.41, G89.29 Chronic bilateral low back pain with right-sided sciatica M65.331 Trigger middle finger of right hand M79.641, M79.642 Bilateral hand pain M25.521, G89.29 Chronic elbow pain, right M25.60 Joint stiffness of multiple sites Z79.899 Long-term use of high-risk medication M15.3 Secondary osteoarthritis of multiple sites H04.123 Dry eye syndrome of both eyes M25.511, G89.29, M25.512 Chronic pain of both shoulders M25.531, M25.532 Bilateral wrist pain R70.0 Elevated sed rate E55.9 Vitamin D deficiency R79.82 Elevated C-reactive protein (CRP) M54.2 Cervicalgia 63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[place] (father-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, sister-lupus) with PMH:DM, s/p partial thyroidectomy, thyroid polyps, htn, hyperlipidemia, exertional asthma, gerd, FRANCOIS 1992 fibroids, fell downstairs R wrist fx 2001, s/p R knee scope 1999 presents with dx'd RA since 24y/o with joint pain from R elbow, hands, knees, feet pain/swelling, DJD/osteophytes on knee xrays, erosions on hand xrays, hx RF+ CCP+, elevated lfts, RA nodules, now with neck/L shoulder/hip pain in the last few weeks, extended AM stiffness, has findings with seropositive erosive RA, cervical/shoulder pain, fibromyalgia, [...] Almanzar is admitting pt to hospital in [place] to debride wound she has on her [...] after L elbow surgery. Had BMD in [facility]. saw pulm 11/2021, no rheumatoid arthritis associated ILD. Had COVID19 infection in 05/2022 treated with steroids and inhalers. 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 3rd grandchild (boy) 11/2022. [facility] 11/27/20 BMD osteopenia.Numbness of left 4th/5th and [...] toe numb Completed OT after elbow surgery Notices dry skin. limited exercise due to frequent falls. due for labs in 3months. taking gabapentin 300mg 9caps per day since insurance would not pay for 10caps per day, arava 20mg daily, methotrexate 10tabs weekly, daily folic acid, sulfasalazine 1tab 3times a day, synthroid, lidoderm, was on vitamin D 5000 International Units daily with food vs new vitamin D script just received, catapres, colace,prozac,zocor, insulin. No recent oral steroids. 10/2023 eye exam, stable after cataract surgeries. 05/14/24 high glucose 237, esr 37;low vitamin D 30, potassium 3.6;normal rest of cbc, cmp, crp 0.6; 05/14/24 patient having more pain and wants to restart rinvoq 12/29/23 per patient getting recurring sinus and throat infections, ok to hold rinvoq x 3months to see if infections still occur, if yes, please see primary care provider/ENT/immunology 11/23/23 high glucose 146;normal rest of cmp, cbc, esr 15, crp 0.7, vitamin D 34.8, vitamin [id number];negative quantiferon tb; Patient's request for medication is as follows: 70% improvement from rinvoq. Walking for exercise. R 3rd finger/R 2nd/3rd MCP/finger swelling. Chronic current pain in R elbow, R forearm, R bicep, Right sided neck, both hands, knees, low back, with radiation to RLE. Reports pain 5/10. Has minimal AM stiffness. Feels safe at home. Has enough food, supplies and medications. Overall uncomfortable but happy with rheum care.Will complete workup for reported symptoms = supportive care, check xrays, consult ortho for possible injection, continue PT exercises, improved with gabapentin/increase 800mg 4per day if approved, improved with rinvoq/please restart/hold if ill, start fall precautions, see pain clinic for long-term pain recommendations/due for back injections, see neurosurgeon L5-S1 surgery, improved with prednisone/take for flares morgan, follow up with UE/hand ortho/postponing R shoulder/wrist surgeries, 40mg kenalog IM 09/16/15, f/u with GI for GI issues eval, much improved with rinvoq daily/received by [facility], continue sq 1ml once every other week injections methotrexate (HOLD 1-2weeks after vaccines), ssz 500mg 3times a day, daily arava, improved with xeljanz OFF due to cost, see ortho s/p R TKR, f/u hand ortho for arm/elbow/wrist care and for trigger finger injection if needed again, no lyrica (no response), improved with humira but worsens asthma, OFF plaquenil, prozac and f/u with PCP for adjustment, nightly and prn wrist splints, PT exercises for contractures, eyedrops per ophthalmology, answered all questions and concerns-patient voiced understanding. RECOMMENDATION/PLAN: Office Visit on 05/18/24 DXA-FOREARM SKELETON DXA-AXIAL SKELETON BD DXA TRABECULAR BONE SCORE (TBS) XR HAND GENERAL 3V PA/LAT/OBL BILATERAL CONSULT TO ORTHOPAEDICS Reviewed labs/tests with patient (faxed clinic note to PCP per patient request) Reviewed Provided printed info on RA, fibromyalgia, plaquenil, methotrexate, ssz, biologics 04/18/12 =40mg IM kenalog;04/18/12, 10/07/11=40mg kenalog L shoulder 07/26/21, 07/16/18, 03/29/16, 01/22/16 precert xeljanz XR 05/18/24 check cmp, cbc, esr, crp, vitamin D every 3months, Modified05/18/24 BENJAMIN 0, pain 50%;11/23/23 BENJAMIN 0, pain 40%;02/20/23 BENJAMIN 0, pain [...] BENJAMIN 1.75, pain 90%;07/03/13 BENJAMIN 1.75, pain 80%;3/11/13 BENJAMIN 1, pain 80%;08/22/12 BENJAMIN 0.5, pain [...] daily SSZ 500mg tab 3times a day Restart Rinvoq daily by mouth arava/leflunamide daily with food hold methotrexate/rinvoq/arava if on antibiotics or if you have any signs/symptoms of infection. wear wrist splints at night and as needed for carpal tunnel syndrome may take prednisone for flares No NSAIDs (ex. motrin, etc.)on pred. eyedrops as instructed gabapentin/neurontin 800mg 3-4times a day see hand ortho for trigger [...] Patient agrees to plan as noted above. The above reflects my independent exam and review. I saw and examined the patient myself personally. Parts of the HPI, ROS, exam and impression/plan may have been copied from my personal previous clinical note and remain pertinent. Current changes have been made and documented today. Other parts or data were deleted if not relevant for today. Plan as outlined. Medical decision making was high complexity due to patient's, multiple symptoms, multiple advancing diseases.Time spent with patient in addition to Counseling and Coordination of Care,spent more than 50% of the evrk-zq-rugx time in counseling, explanation of diagnosis, and planning of further management, I spent a total of 30 minutes on the date of the service which included preparing to see the patient, ehyz-[id number] patient care, completing clinical documentation, obtaining and/or [...] patient. Pepe Carter MD cc Dr.Dwight Oliver cJ; (ortho); (ID); (ortho);Dr.Douglas Schafer documented in this encounter [facility] 05-18-2024 Note HNO ID: [id number] Author: PEPE CARTER MD Service: ? Author Type: Physician Type: Progress Notes Filed: 05/18/2024 13:46 Note Text: Face to face Follow up for rheumatoid arthritis/ degenerative joint disease/joint pain/ osteopenia Today's visit 05/18/24:due for labs in 3months. taking gabapentin 300mg 9caps per day since insurance would not pay for 10caps per day, arava 20mg daily, methotrexate 10tabs weekly, daily folic acid, sulfasalazine 1tab 3times a day, synthroid, lidoderm, was on vitamin D 5000 International Units daily with food vs new vitamin D script just received, catapres, colace,prozac,zocor, insulin. No recent oral steroids. 10/2023 eye exam, stable after cataract surgeries. 05/14/24 high glucose 237, esr 37;low vitamin D 30, potassium 3.6;normal rest of cbc, cmp, crp 0.6; 05/14/24 patient having more pain and wants to restart rinvoq 12/29/23 per patient getting recurring sinus and throat infections, ok to hold rinvoq x 3months to see if infections still occur, if yes, please see primary care provider/ENT/immunology 11/23/23 high glucose 146;normal rest of cmp, cbc, esr 15, crp 0.7, vitamin D 34.8, vitamin a09-4224;negative quantiferon tb; Patient's request for medication is as follows: 70% improvement from rinvoq. Walking for exercise. R 3rd finger/R 2nd/3rd MCP/finger swelling. Chronic current pain in R elbow, R forearm, R bicep, Right sided neck, both hands, knees, low back, with radiation to RLE. Reports pain 5/10. Has minimal AM stiffness. Feels safe at [...] other complaints. Last visit supportive care, consult PT, start fall precautions, see pain clinic for long-term pain recommendations/due for back injections, see neurosurgeon L5-S1 surgery, improved with prednisone/take for flares morgan, follow up with UE/hand ortho/postponing R shoulder/wrist surgeries, 40mg kenalog IM 09/16/15, f/u with GI for GI issues eval, much improved with rinvoq daily/received by [facility], continue sq 1ml once every other week [...] PT exercises for contractures, eyedrops per ophthalmology 11/23/23:due for labs. taking methotrexate 10tabs weekly [...] visit supportive care, see pain clinic for long-term pain recommendations/due for back injections, see neurosurgeon/due [...] asthma, much improved with rinvoq daily/received by [facility], continue sq 1ml once every other week injections methotrexate (HOLD 1-2 (more content not included)... [facility] 05-17-2024 Instructions Pepe Carter MD - 05/17/2024 10:13 PM EDT May apply over the counter arthritis cream (biofreeze, icy hot, asper cream, tiger balm, capsacin, etc.) to painful joints up to four times a day. Avoid contact with eyes. May take ES acetaminophen 500mg every 4-6hours for joint pain. Do not exceed 2000mg /day. take calcium with food as instructed Take vitamin D script with food. No response lyrica OFF Hydroxychloroquine/Plaquenil/humi ra/xeljanz Methotrexate 10tabs once a week or 1ml sq injection food every other a week (HOLD 1-2weeks after vaccines) Do not drink alcohol while taking methotrexate Have bloodwork every 8-12weeks for monitoring while taking Methotrexate Please take folic acid 1mg tab:Take 1tab by mouth daily SSZ 500mg tab 3times a day Restart Rinvoq daily by mouth arava/leflunamide daily with [...] pain nonfasting bloodwork as scheduled Thank you. Latest Ref Rng 11/23/2023 05/14/2024 Protein, Total 6.3 - 8.0 g/dL 7.9 7.7 Albumin 3.9 - 4.9 g/dL 4.5 4.1 Calcium 8.5 - 10.2 mg/dL 9.4 9.7 Bilirubin, Total 0.2 - 1.3 mg/dL 0.3 0.3 Alkaline Phosphatase 34 - 123 U/L 79 85 AST 13 - 35 U/L 25 27 ALT 7 - 38 U/L 25 33 Glucose 74 - 99 mg/dL 146 (H) 237 (H) BUN 7 - 21 mg/dL 16 19 Creatinine 0.58 - 0.96 mg/dL 0.72 0.74 Sodium 136 - 144 mmol/L 140 139 Potassium 3.7 - 5.1 mmol/L 3.9 3.6 (L) Chloride 98 - 107 mmol/L 100 98 CO2 22 - 30 mmol/L 27 31 (H) Anion Gap 8 - 15 mmol/L 13 10 eGFR >=60 mL/min/1.73m 94 90 WBC 3.70 - 11.00 k/uL 8.77 7.63 RBC 3.90 - 5.20 m/uL 4.43 4.60 Hemoglobin 11.5 - 15.5 g/dL 13.5 13.6 Hematocrit 36.0 - 46.0 % 40.3 39.1 MCV 80.0 - 100.0 fL 91.0 85.0 MCH 26.0 - 34.0 pg 30.5 29.6 MCHC 30.5 - 36.0 g/dL 33.5 34.8 RDW-CV 11.5 - 15.0 % 14.2 12.5 Platelet Count 150 - 400 k/uL 302 319 MPV 9.0 - 12.7 fL 10.2 10.0 Absolute nRBC <0.01 k/uL <0.01 <0.01 TB Nil <=8.00 IU/mL 0.17 TB1 Ag minus Nil <0.35 IU/mL 0.13 TB2 Ag minus Nil <0.35 IU/mL 0.13 TB Result Negative Mitogen minus Nil >=0.50 IU/mL >9.83 TB Interpretation Infection with M. tuberculosis complex is unlikely. If latent tuberculosis infection is highly suspected, a negative result does not rule out the infection. Specimens from immunocompromised patients and those <5 years of age may show false negative results. In case of a contact investigation, please repeat 8-12 weeks after a known exposure. WSR 0 - 20 mm/hr 15 37 (H) CRP <0.9 mg/dL 0.7 0.6 Vitamin D 25 Hydroxy 31.0 - 80.0 ng/mL 34.8 30.0 (L) Vitamin B12 232 - 1,245 pg/mL 1,203 Moisturizing treatments Stimulating saliva -- Simply sucking on sugarless candy or dried fruit slices (eg, peaches or nectarines) can stimulate the flow of saliva in many patients. [place] flavored sugarless tablets and sugar-free chewing gum [...] called punctal occlusion. In this procedure, an program project analyst inserts small plugs into the tear ducts [...] be highly individualized. In virtually every major [facility], the [employer] is engaged in [...] the National [employer] Website at www.fmpartnership.org. BONE MINERAL DENSITY PATIENT INSTRUCTIONS ======== Bone mineral density testing measures the amount of calcium in certain parts of your bones. This information determines how strong your bones are. The test is used to detect osteoporosis, a disease in which the bone's mineral content and density are low, increasing a person's risk of fractures. The lumbar spine (lower back) and the hip are the skeletal sites usually examined. For the test, remember that: 1. You cannot take this test if you are . 2. Eat a normal diet on the day of the test. 3. Take your medications as you normally would. 4. DO NOT take calcium supplements (such as Tums) for 24 hours before the test. 5. On the day of the test, leave valuables (jewelry or credit cards) at home. 6. The test should be performed prior to oral, rectal or IV contrast studies, or at least 7 days after any of these studies. For the test, you may be asked to wear a hospital gown. You will lie on your back, on a padded table, in a comfortable position. Generally, you can resume your usual activities immediately. documented in this encounter [facility] 05-16-2024 Telephone encounter Note Notified patient of below, verbal understanding. [facility] 05-16-2024 Miscellaneous Notes Notified patient of below, verbal understanding. Please Call patient if MyChart note not read to review results/released to My Chart if tests completed at F: high glucose- will monitor with primary care provider. Mildly low potassium- increase potassium intake, care per primary care provider. Low vitamin D maybe associated with fatigue/joint/muscle pain. Start vitamin D script with food, then take over the counter vitamin D 5000 International Units daily with food after script completed. One mildly high inflammatory test- will monitor Rest of labs stable New script sent to pharmacy. Notify office if medication change is not tolerated. Recheck nonfasting labs in 3months, orders have been placed.. Happy to further review and discuss at follow up visit. Continue rest of treatment plan per instructions at last office visit. Thank you. 05/14/24 high glucose 237, esr 37;low vitamin D 30, potassium 3.6;normal rest of cbc, cmp, crp 0.6; 05/14/24 patient having more pain and wants to restart rinvoq 12/29/23 per patient getting recurring sinus and throat infections, ok to hold rinvoq x 3months to see if infections still occur, if yes, please see primary care provider/ENT/immunology 11/23/23 high glucose 146;normal rest of cmp, cbc, esr 15, crp 0.7, vitamin D 34.8, vitamin t10-9730;negative quantiferon tb; Patient's request for medication is as follows: Requested Prescriptions Signed Prescriptions Disp Refills ergocalciferol 50,000 unit capsule (VITAMIN D2, DRISDOL) 16 capsule 0 Sig: (take by mouth with food twice a week, ONE CAPSULE ON MONDAY AND ONE ON MONDAY) FOR A TOTAL OF 8 WEEKS. Authorizing Provider: PEPE CARTER Prescription(s) as above. Please process accordingly. Pepe Carter MD documented in this encounter [facility] 05-15-2024 Telephone encounter Note Please Call patient if MyChart note not read to review results/released to My Chart if tests completed at [facility]: high glucose- will monitor with primary care provider. Mildly low potassium- increase potassium intake, care per primary care provider. Low vitamin D maybe associated with fatigue/joint/muscle pain. Start vitamin D script with food, then take over the counter vitamin D 5000 International Units daily with food after script completed. One mildly high inflammatory test- will monitor Rest of labs stable New script sent to pharmacy. Notify office if medication change is not tolerated. Recheck nonfasting labs in 3months, orders have been placed.. Happy to further review and discuss at follow up visit. Continue rest of treatment plan per instructions at last office visit. Thank you. 05/14/24 high glucose 237, esr 37;low vitamin D 30, potassium 3.6;normal rest of cbc, cmp, crp 0.6; 05/14/24 patient having more pain and wants to restart rinvoq 12/29/23 per patient getting recurring sinus and throat infections, ok to hold rinvoq x 3months to see if infections still occur, if yes, please see primary care provider/ENT/immunology 11/23/23 high glucose 146;normal rest of cmp, cbc, esr 15, crp 0.7, vitamin D 34.8, vitamin v85-0040;negative quantiferon tb; Patient's request for medication is as follows: Requested Prescriptions Signed Prescriptions Disp Refills ergocalciferol 50,000 unit capsule (VITAMIN D2, DRISDOL) 16 capsule 0 Sig: (take by mouth with food twice a week, ONE CAPSULE ON MONDAY AND ONE ON MONDAY) FOR A TOTAL OF 8 WEEKS. Authorizing Provider: PEPE CARTER Prescription(s) as above. Please process accordingly. Pepe Carter MD [facility] 01-04-2024 Miscellaneous Notes Left below message as VM at number listed for patient. LMTCB Please call patient. Thank you for the update. May try holding medication x 3months, but if infections still occur off medication, may see primary care provider/ENT or immunology for recurrent infections. FYI Rheumatoid arthritis symptoms may flare while off rinvoq. Notify office of progress update. Hope you feel better soon! Warm regards, :) Patient calling in to office. Verified by name and . Reviewed below with patient, who verbalizes understanding. Patient inquiring how long it is OK for her to hold the medication. Lm regarding results and recommendations sent via [employer]. Please call patient. Thank you for the update. Sorry to hear about your discomfort. May hold rinvoq. If symptoms persist or worsen, please see primary care provider/ENT for further evaluation and care recommendations. Please notify office of progress update. Hope you feel better soon! Warm regards, :) Elsa is calling Pepe Carter MD today to stating that she has re occurring sinus and throat issues every month and it was suggested to ask if the medication upadacitinib (RINVOQ) Tb24 tablet could have anything to do with these symptoms. Please call patient to advise. Patient has been identified by name and birthdate. Duration of symptoms: 3-4 months Person calling: self Call patient at: on cell [phone] (home) [phone] (cell) Was an appointment scheduled: No Closing statement: Symptom Call: Thank you for calling [facility], your call is very important. A nurse will call in approximately 2-4 hours during business hours. If this is an emergency, please contact 911. Rose Subramanian documented in this encounter [facility] 11-23-2023 History of Present illness Narrative [...] hips, L>R neck, both knees. Reports pain 01/09. Has minimal AM stiffness. Feels safe at [...] visit supportive care, see pain clinic for long-term pain recommendations/due for back injections, see neurosurgeon/due [...] asthma, much improved with rinvoq daily/received by [facility], continue sq 1ml once every other week injections methotrexate (HOLD 1-2weeks after vaccines), ssz 500mg 3times a day, daily arava, OFF plaquenil, prozac and f/u with PCP for adjustment, nightly and prn wrist splints, PT exercises for contractures, eyedrops per ophthalmology 02/20/23:due for bmd after 11/27/22. [facility] 11/27/20 BMD osteopenia. 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 COVID vaccine [employer] 07/01/21, 07/22/21. 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 Had [employer] 07/01/21, 07/22/21. 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 Had BMD in [facility], no response. Saw pain clinic and on [...] [facility] is admitting pt to hospital in [place] to debride wound she has on her [...] pill bottle. Working with PT. Reports pain /10. Minimal Am stiffness. Not on diuretic, mvi, [...] pain. 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 [place] better on xeljanz and did not have more frequent infections. Reports pain 8/10. Moderate AM stiffness. Overall mildly uncomfortable but [...] to have new grandchild soon. Reports pain 8/10. Moderate AM stiffness. Not on prednisone (did [...] throat. Hoarse voice. Around ill patients at residential. Declined tablet survey. Tired. Feeling better since [...] buttocks, right arm/bicep whole body flare . [place] great when taking xeljanz XR for two [...] with prozac (started nexium). 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 Had L thumb nodule injection last rheum visit with good results. Elevated LFTs since 2008. Was on lower methotrexate doses years ago. Patient denies fever, chills, cp, dyspnea, nausea, vomiting, night sweats, scalp tenderness, visual changes, [place], bowel/bladder changes, weight changes or other complaints. 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 TESTS: 05/24/23 low potassium 3.4;high esr 35, crp 0.9;normal rest of cbc, cmp, vitamin D 41.5, vitamin t85-3748; 02/16/23 high glucose 260(328), esr 27 (60);normal rest of cmp, cbc, crp<0.3, (3), vitamin D 42.3; 07/29/22 high esr 60 (30), crp 3 (0.7), glucose 328;normal rest of cmp, cbc, vitamin D 36.8; 12/28/21 low potassium 3.3;high esr 30 (44), glucose 339 (480);NL rest of cbc, cmp, vitamin v47-2860, vitamin D 31.5;negative quantiferon tb, hepatitis panel [...] of cmp, cbc, vitamin D 43.5, vitamin c33-5906;negative quantiferon tb; [facility] 11/27/20 BMD osteopenia L1/L3/L4 1.102 g/cm2, tscore-More than half of todays over 40 minute ujkn-iv-[id number] office visit was spent in counselling/coordination of care, zscore2;L fem neck 0.808g/cm2, tscreo-0.4, zscore1;Total L hip 0.946g/cm2, tscore 0, zscore1.1;R fem neck 0.662g/cm2, tscore-1.7, zscore-0.3, Total R hip 0.781g/cm2, tscore-1, zscore0.3;L foreamr 0.505g/cm2, tscore-1.2, zscore0.3; FRAX major osteoporotic fracture risk 11%;hip fracture risk 1.2%; [facility] 11/27/20 lumbar xrays-mild osteopenia. Significant disc narrowing [...] in diameter. A joint effusion is present [facility] 09/21/15 GI study- unremarkable air contrast upper GI exam [facility] 09/21/15 abdominal ultasound/echo= degree of hepatic steatosis. 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 Had BMD in [facility]. saw pulm 11/2021, no rheumatoid arthritis associated ILD. Had COVID19 infection in 05/2022 treated with steroids and inhalers. 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 3rd grandchild (boy) 11/2022. [facility] 11/27/20 BMD osteopenia.Numbness of left 4th/5th and [...] hips, L>R neck, both knees. Reports pain 01/09. Has minimal AM stiffness. Feels safe at home. Has enough food, supplies and medications. Overall mildly uncomfortable but happy with rheum care. = supportive care, consult PT, start fall precautions, see pain clinic for long-term pain recommendations/due for back injections, see neurosurgeon L5-S1 surgery, improved with prednisone/take for flares morgan, follow up with UE/hand ortho/postponing R shoulder/wrist surgeries, 40mg kenalog IM 09/16/15, f/u with GI for GI issues eval, much improved with rinvoq daily/received by [facility], continue sq 1ml once every other week [...] of Care,spent more than 50% of the [id number]-gr-[id number] time in counseling, explanation of diagnosis, and planning of further management, I spent a total of 30 minutes on the date of the service which included preparing to see the patient, [id number] patient care, completing clinical documentation, obtaining and/or [...] (ID); (ortho);Dr.Douglas Schafer documented in this encounter [facility] 11-23-2023 Note HNO ID: [id number] Author: PEPE CARTER MD Service: ? 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 [facility] 11/27/20 BMD osteopenia. 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 Had COVID19 infection in 05/2022 treated with (more content not included)... [facility] 11-22-2023 Instructions Pepe Carter MD - [...] the flow of saliva in many patients. [place] flavored sugarless tablets and sugar-free chewing gum [...] called punctal occlusion. In this procedure, an program project analyst inserts small plugs into the tear ducts [...] be highly individualized. In virtually every [facility], the [employer] is engaged in [...] Website at [email or web address]. documented in this encounter [facility] 07-12-2023 Miscellaneous Notes Form faxed with confirmation. Form completed. Please process accordingly. Scan copy into [employer]. Notify patient when above completed. Recall in script when approved if needed. Thank you. Received refill request from [employer]. Form placed on your desk for signature. documented in this encounter [facility] 05-29-2023 Miscellaneous Notes patient has viewed the [employer] message per [employer]. Please Call patient if AwesomeHighlightert note not read to review results/released to My Chart if tests completed at [facility]: Mildly low normal potassium- increase potassium [...] of cbc, cmp, vitamin D 41.5, vitamin p87-2450; --- 02/16/23 high glucose 260(328), esr 27 (60);normal rest of cmp, cbc, crp<0.3, (3), vitamin D 42.3; documented in this encounter [facility] 08-11-2022 History of Present illness Narrative [...] Several hours minimal AM stiffness. COVID vaccine [employer] 07/01/21, 07/22/21. 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 Had GoNogging 07/01/21, 07/22/21. wants to return to xeljanz [...] visit supportive care, see pain clinic for long-term pain recommendations/due for back injections, see neurosurgeon/due [...] for possible surgery eval. Had BMD in [facility], no response. Saw pain clinic and on lidocaine 5%. More joint pain/swelling R>L hand/R wrist since spacing humira to every 21days for asthma (which is great). Patient requesting to increase humira to 14days due to joint pain/swelling. No steroids since last office visit. Same L 4th/5th finger numbness. Wants COVID vaccine. Reports pain 9-07/11. Extended AM stiffness. Feels safe at home. [...] Almanzar is admitting pt to hospital in [place] to debride wound she has on her [...] pain. 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 [place] better on xeljanz and did not have more frequent infections. Reports pain 8/10. Moderate AM stiffness. Overall mildly uncomfortable but [...] to have new grandchild soon. Reports pain 8/10. Moderate AM stiffness. Not on prednisone (did [...] throat. Hoarse voice. Around ill patients at residential. Declined tablet survey. Tired. Feeling better since [...] buttocks, right arm/bicep whole body flare . [place] great when taking xeljanz XR for two [...] yesterday 06/11. Started prednisone yesterday, pain all 6/10. Moderate AM stiffness. Has not missed methotrexate [...] with prozac (started nexium). 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 Had L thumb nodule injection last rheum visit with good results. Elevated LFTs since 2008. Was on lower methotrexate doses years ago. Patient denies fever, chills, cp, dyspnea, nausea, vomiting, night sweats, scalp tenderness, visual changes, abbott, bowel/bladder changes, weight changes or other complaints. 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:07/29/22 high esr 60 (30), crp 3 (0.7), glucose 328;normal rest of cmp, cbc, vitamin D 36.8; 12/28/21 low potassium 3.3;high esr 30 (44), glucose 339 (480);NL rest of cbc, cmp, vitamin n18-3509, vitamin D 31.5;negative quantiferon tb, hepatitis panel [...] of cmp, cbc, vitamin D 43.5, vitamin i78-2360;negative quantiferon tb; [facility] 11/27/20 BMD osteopenia L1/L3/L4 1.102 g/cm2, tscore-More than half of todays over 40 minute nznw-ad-kwdk office visit was spent in counselling/coordination of care, zscore2;L fem neck 0.808g/cm2, tscreo-0.4, zscore1;Total L hip 0.946g/cm2, tscore 0, zscore1.1;R fem neck 0.662g/cm2, tscore-1.7, zscore-0.3, Total R hip 0.781g/cm2, tscore-1, zscore0.3;L foreamr 0.505g/cm2, tscore-1.2, zscore0.3; FRAX major osteoporotic fracture risk 11%;hip fracture risk 1.2%; [facility] 11/27/20 lumbar xrays-mild osteopenia. Significant disc narrowing [...] in diameter. A joint effusion is present [facility] 09/21/15 GI study- unremarkable air contrast upper GI exam [facility] 09/21/15 abdominal ultasound/echo= degree of hepatic steatosis. 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 Had BMD in [facility]. saw pulm 11/2021, no rheumatoid arthritis associated [...] = supportive care, see pain clinic for long-term pain recommendations/due for back injections, see neurosurgeon/due [...] worsens asthma, rinvoq daily/restart when received by [employer], continue sq 1ml once every other week [...] 0, pain 80%;07/16/18 BENJAMIN 0, pain 80%;04/18/17 EBNJAMIN 0, pain 90%;12/01/16 BENJAMIN 0, pain 0%;03/29/16 BENJAMIN 1, pain 100%;01/22/16 BENJAMIN 0.75, pain 60%;09/16/15 BENJAMIN 0.5, pain 80%;08/06/15 BENJAMIN 1, pain 100%;11/12/14 BENJAMIN 1, pain 50%;06/30/14 BENJAMIN 1.75, pain 90%;07/03/13 BENJAMIN 1.75, pain 80%;12/10/12 BENJAMIN 1, pain 80%;08/22/12 BENJAMIN 0.5, pain 50%;04/18/12 BENJAMIN 1.5, pain 70%;01/27/12 BENJAMIN 1.5, pain 70%;10/07/11 BENJMAIN 1.5, pain 60%; May apply over the [...] of Care,spent more than 50% of the [id number]-hd-txdq time in counseling, explanation of diagnosis, and planning of further management, I spent a total of 30 minutes on the date of the service which included preparing to see the patient, [id number] patient care, completing clinical documentation, obtaining and/or [...] (ID); (ortho);Dr.Douglas Schafer documented in this encounter [facility] 08-11-2022 Instructions Pepe Carter MD - [...] the flow of saliva in many patients. [place] flavored sugarless tablets and sugar-free chewing gum [...] called punctal occlusion. In this procedure, an program project analyst inserts small plugs into the tear ducts [...] Website at [email or web address]. documented in this encounter [facility] 08-01-2022 Miscellaneous Notes Pt was notified via . Please Call patient if MyChart note not read to review results/released to My Chart if tests completed at F: High glucose- care per primary care provider/endocrinology. [...] 339 (480);NL rest of cbc, cmp, vitamin x52-6363, vitamin D 31.5;negative quantiferon tb, hepatitis panel [...] soft tissue swelling. documented in this encounter [facility] 07-29-2022 Miscellaneous Notes Labs are done. [...] these orders. Patient is enrolled in the [employer] free drug program. Thank you Requested Prescriptions Pending Prescriptions Disp Refills upadacitinib (RINVOQ) Tb24 tablet 90 tablet 3 Sig: Take 1 tablet (15 mg) by mouth once daily. Swallow whole; DO NOT crush, chew, or open. Hold if on antibiotics or ill. Hold 1weeks after vaccines. Please review and advise. David Wilson RPh documented in this encounter [facility] 07-27-2022 Miscellaneous Notes Patient has been scheduled as requested for 07/29/22. I spoke with Hossein and she is aware of all of the appointment details. Mary SUBRAMANIAN July 27, 2022 10:54 AM Please call and schedule nonfasting labs this month (active since 03/2022); Please send new script to [email or web address] if needed Notify office if not received. [...] get refills. This was done through the [employer] and encounter from 12/17/21 states approved through the end of the year. Patient had received a 3 month supply but no refills since then and she does not know who to contact. Patient has upcoming appointment on 08/11/2022. Pharmacy should not be [facility] - should be [facility]. Patient has been identified by name and [...] [place]. Bettye Orr documented in this encounter [facility] 04-18-2022 Miscellaneous Notes Please notify patient Patient's request for medication is as follows: Signed Prescriptions Disp Refills gabapentin (NEURONTIN) 300 mg capsule 270 capsule 3 Sig: TAKE 10 CAPSULES BY MOUTH DIVIDED THROUGHOUT THE DAY DEE: No Authorizing Provider: JANEL CHI Prescription(s) as above. Please process accordingly. Janel Chi APRN.[facility]REE Most recent Rheumatology visit: 12/30/2021 (with Janel Chi) Recent Office Visits - This Specialty 07/20/2018 APPOINTMENT CANCELLED Internal Medicine Rigoberto Tomlinson MD Upcoming Rheumatology Appointments - Next 365 Days Visit Type Date Time Department [facility] 08/11/2022 9:20 AM [facility] CBC: CBC Latest Ref Rng [...] MOUTH DIVIDED THROUGHOUT THE DAY DEE: No Anastasiia Ballard MA documented in this encounter [facility] 12-30-2021 Instructions Janel Chi APRN.TICKET SELLER - 12/30/2021 3:29 PM EDT May apply [...] the flow of saliva in many patients. [place] flavored sugarless tablets and sugar-free chewing gum [...] called punctal occlusion. In this procedure, an program project analyst inserts small plugs into the tear ducts [...] be highly individualized. In virtually every [facility], the [employer] is engaged in [...] Website at [email or web address]. documented in this encounter [facility] 12-30-2021 History of Present illness Narrative [...] hand pain Per Dr. 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 Had GoNogging 07/01/21, 07/22/21. wants to return to xeljanz since it did not cause lung issues vs humira/worsens breathing/asthma. More joint pain if stretching humira to every 3weeks. Still taking gabapentin. Reports pain 05/11. Moderate AM stiffness several hours. Nodule on L elbow. Numbness and tingling of 4th/5th fingers after L elbow surgery. Had BMD in [facility]. Feels safe at home. Has enough food, supplies and medications. Overall mildly uncomfortable but happy with rheum care = supportive care, see pain clinic for long-term pain recommendations/due for back injections, see neurosurgeon/due [...] 339 (480);NL rest of cbc, cmp, vitamin l02-8581, vitamin D 31.5;negative hepatitis panel except +hepB [...] the care of your patient. Janel Chi APRN.[facility] cc Pretty Fermin MD, MD Patient Instructions [...] the flow of saliva in many patients. [place] flavored sugarless tablets and sugar-free chewing gum [...] called punctal occlusion. In this procedure, an program project analyst inserts small plugs into the tear ducts [...] be highly individualized. In virtually every [facility], the [employer] is engaged in [...] the flow of saliva in many patients. [place] flavored sugarless tablets and sugar-free chewing gum [...] called punctal occlusion. In this procedure, an program project analyst inserts small plugs into the tear ducts [...] be highly individualized. In virtually every [facility], the [employer] is engaged in [...] Procedure Laterality Date PAST SURGICAL HISTORY OF 1992 hysterectomy PAST SURGICAL HISTORY OF remote thyroidectomy [...] 104 53 - 334 mg/dL Final [facility]PA [place], Serum Date Value Ref Range Status 02/18/2011 1190 534 - 1267 mg/dL Final MPA [place], Serum Date Value Ref Range Status 02/18/2011 675 (H) 253 - 653 mg/dL Final [facility]PA [place]/Lambda Ratio Date Value Ref Range Status 02/18/2011 [...] 32.4 sec 28.5 documented in this encounter [facility] 12-29-2021 Miscellaneous Notes Pt identified by [...] 339 (480);NL rest of cbc, cmp, vitamin e25-0809, vitamin D 31.5;negative hepatitis panel except +hepB [...] soft tissue swelling. documented in this encounter [facility] Evaluation note Diagnosis Rheumatoid arthritis of multiple sites without organ or system involvement with positive rheumatoid factor (HCC)- Primary Elevated LFTs Other abnormal blood chemistry Anemia of chronic disease Anemia of other chronic disease Elevated sed rate Elevated sedimentation rate Elevated C-reactive protein (CRP) Vitamin D deficiency Unspecified vitamin D deficiency [facility] Rheumatoid arthritis of multiple sites [...] [facility] Fibromyalgia Mylagia and myositis, unspecified Postherpetic neuralgia Herpes zoster with other nervous system complications Bilateral carpal tunnel syndrome Carpal tunnel syndrome [facility] Rheumatoid arthritis of multiple sites without organ or system involvement with positive rheumatoid factor (HCC) [facility] Rheumatoid arthritis of multiple sites without organ or system involvement with positive rheumatoid factor (HCC) [facility] Rheumatoid arthritis of multiple sites without organ or system involvement with positive rheumatoid factor (HCC)- Primary Elevated LFTs Other abnormal blood chemistry Anemia of chronic disease Anemia of other chronic disease Elevated sed rate Elevated sedimentation rate Elevated C-reactive protein (CRP) Vitamin D deficiency Unspecified vitamin D deficiency [facility] Rheumatoid arthritis of multiple [...] abnormal blood chemistry [facility] Diagnosis Chronic elbow pain, left documented in this encounter [facility]* Diagnosis Rheumatoid arthritis of multiple [...] for pulmonary tuberculosis [facility] Diagnosis Rheumatoid arthritis of multiple sites [...] vitamin D deficiency [facility] Diagnosis Rheumatoid arthritis of multiple sites without organ or system involvement with positive rheumatoid factor (HCC)- Primary Elevated LFTs Other abnormal blood chemistry Anemia of chronic disease Anemia of other chronic disease Elevated sed rate Elevated sedimentation rate Elevated C-reactive protein (CRP) Vitamin D deficiency Unspecified vitamin D deficiency [facility] Diagnosis Lumbar foraminal stenosis Spinal stenosis, lumbar region, without neurogenic claudication Radiculopathy, lumbar region Thoracic or lumbosacral neuritis or radiculitis, unspecified Pre-op testing Preoperative examination, unspecified Mild intermittent asthma without complication Unspecified asthma Rheumatoid arthritis of multiple sites without organ or system involvement with positive rheumatoid factor (HCC) Essential hypertension Unspecified essential hypertension Other hyperlipidemia Type 2 diabetes mellitus without complication, with long-term current use of insulin (HCC) Wound infection after surgery- Primary Other postoperative infection Malnutrition of mild degree (HCC) Malnutrition of mild degree Post-op pain Other acute postoperative pain Type 2 diabetes mellitus without complication, with long-term current use of insulin (HCC) Other hyperlipidemia Essential hypertension Unspecified essential hypertension Hypothyroidism Unspecified hypothyroidism Malnutrition of mild degree (HCC) Malnutrition of mild degree Rheumatoid arthritis of multiple sites without organ or system involvement with positive rheumatoid factor (HCC)- Primary 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 Trigger middle finger of right hand Trigger finger (acquired) Bilateral hand pain Pain in limb Chronic elbow pain, right Joint stiffness of multiple sites Stiffness of joints, not elsewhere classified, multiple sites Long-term use of high-risk medication Secondary osteoarthritis of multiple sites Osteoarthrosis involving, or with mention of more than one site, but not specified as generalized, multiple sites Dry eye syndrome of both eyes Chronic pain of both shoulders Pain in joint, shoulder region Bilateral wrist pain Pain in joint, forearm Elevated sed rate Elevated sedimentation rate Vitamin D deficiency Unspecified vitamin D deficiency Elevated C-reactive protein (CRP) Cervicalgia [facility] Diagnosis Lumbar foraminal stenosis Spinal stenosis, lumbar region, without neurogenic claudication Radiculopathy, lumbar region Thoracic or lumbosacral neuritis or radiculitis, unspecified Pre-op testing Preoperative examination, unspecified Mild intermittent asthma without complication Unspecified asthma Rheumatoid arthritis of multiple sites without organ or system involvement with positive rheumatoid factor (HCC) Essential hypertension Unspecified essential hypertension Other hyperlipidemia Type 2 diabetes mellitus without complication, with long-term current use of insulin (HCC) Wound infection after surgery- Primary Other postoperative infection Malnutrition of mild degree (HCC) Malnutrition of mild degree Post-op pain Other acute postoperative pain Type 2 diabetes mellitus without complication, with long-term current use of insulin (HCC) Other hyperlipidemia Essential hypertension Unspecified essential hypertension Hypothyroidism Unspecified hypothyroidism Malnutrition of mild degree (HCC) Malnutrition of mild degree Trigger middle finger of right hand Trigger finger (acquired) Bilateral hand pain Pain in limb [facility] Diagnostic Procedure Only (Routine) - Closed Specialty Diagnoses / Procedures Referred By Contac t Referred To Contact XR IMAGING Diagnoses Chronic elbow pain, left Procedures XR ELBOW GENERAL 2V AP/LAT LT X-RAY ELBOW AP/LATERAL Pepe Carter MD [address] [place] [address] Xr Imaging Referral ID Status Reason Start Date Expiration Date V isits Requested Visits Authorized Closed Auto-Generate d Referral 07/26/2021 08/25/2022 1 1 [facility] for visit Narrative* Diagnostic Procedure Only (Routine) - Closed Specialty Diagnoses / Procedures Referred By Contac t Referred To Contact XR IMAGING Diagnoses Chronic elbow pain, left Procedures XR ELBOW GENERAL 2V AP/LAT LT X-RAY ELBOW AP/LATERAL Pepe Carter MD [address] [place] [address] Xr Imaging Referral ID Status Reason Start Date Expiration Date V isits Requested Visits Authorized [id number] Closed Auto-Generate d Referral 07/26/2021 08/25/2022 1 1 [facility] for visit Narrative* Diagnostic Procedure Only (Routine) - Closed Specialty Diagnoses / Procedures Referred By Contac t Referred To Contact XR IMAGING Diagnoses Trigger middle finger of right hand Bilateral hand pain Procedures XR HAND GENERAL 3V PA/LAT/OBL BILATERAL RADEX HAND MINIMUM 3 VIEWS Pepe Carter MD [address] [address] [place] [address] Referral ID Status Reason Start Date Expiration Date V isits Requested Visits Authorized [id number] Closed Auto-Generate d Referral 05/18/2024 06/17/2025 1 1 [facility] Summary Purpose Family History No Family History Records FoundNo Family History Records FoundNo Family History Records FoundNo Family History Records FoundNo Family History Records FoundNo Family History Records FoundNo Family History Records FoundNo Family History Records FoundNo Family History Records FoundNo Family History Records Found Advance Directives No Advanced Directives Records FoundDocuments on File Type Date Recorded 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 Machine Operator 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 Advance Directives and Livin g Will 02/21/2019 11:35 AM Documents on File Type Date Recorded 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 Machine Operator 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 Advance Directives and Livin g Will 02/27/2019 11:35 AM Latest Code Status on File Code Status Date Activated Date Inactivated Comments Full Code 02/27/2019 12:39 PM Documents on File Type Date Recorded 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 Machine 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 Advance Directives and Livin g Will 04/23/2019 2:22 PM Latest Code Status on File Code Status Date Activated Date Inactivated Comments Full Code 02/27/2019 12:39 PM Documents on File Type Date Recorded 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 Machine Operator 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 Advance Directives and Livin g Will 09/04/2019 5:50 AM Latest Code Status on File Code Status Date Activated Date Inactivated Comments Full Code 09/04/2019 4:13 PM Full Code 02/27/2019 12:39 PM 09/04/2019 5:49 AM Documents on File Type Date Recorded 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 Machine 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 Advance Directives and Livin g Will 10/12/2019 1:17 PM Latest Code Status on File Code Status Date Activated Date Inactivated Comments Full Code 10/12/2019 4:09 PM Full Code 09/04/2019 4:13 PM 10/12/2019 12:47 PM Documents on File Type Date Recorded 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 Machine 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 Advance Directives and Livin g Will 04/01/2020 1:24 PM Latest Code Status on File Code Status Date Activated Date Inactivated Comments Full Code 10/12/2019 4:09 PM 04/08/2020 9:15 AM Documents on File Type Date Recorded 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 Machine 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 Advance Directives and Livin g Will 04/01/2020 1:24 PM Latest Code Status on File Code Status Date Activated Date Inactivated Comments Full Code 10/12/2019 4:09 PM 04/08/2020 9:15 AM Full Code 09/04/2019 4:13 PM 10/12/2019 12:47 PM Full Code 02/27/2019 12:39 PM 09/04/2019 5:49 AM Documents on File Type Date Recorded 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 Machine 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 Advance Directives and Livin g Will 09/04/2019 5:50 AM Latest Code Status on File Code Status Date Activated Date Inactivated Comments Full Code 09/04/2019 4:13 PM Documents on File Type Date Recorded 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 Machine Operator 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 Advance Directives and Livin g Will 08/28/2019 12:58 PM Documents on File Type Date Recorded 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 Machine Operator 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 Advance Directive(s) Advance Directive(s) 03/16/2021 12:22 PM Advance Directive(s) 03/15/2021 1:41 PM Advance Directive(s) 01/25/2021 2:47 PM Instructions * Patient Instructions* Sveta Silva, DO - 02/21/2019 12:46 PM EDT If your surgery date changes or you change your surgery date, please call us at [phone] TAKE YOUR BLOOD PRESSURE DAILY (EITHER WITH [...] [place] [facility] Medication Instructions Prior to Surgery RICKI:[id number] Printed on:02/21/19 1646 Medication Information Take last dose on Take [...] medications that contain aspirin, such as Patricia Ben Bolt, Pepto- Bismol, Anacin), antiinflammatory medications such as Advil, Motrin, Ibuprofen, Naproxen, Aleve, Patricia [place], Anacin, Diclofenac, Voltaren, Daypro, Etodolac, Ketoprofen, Piroxicam, Relafen, Nabumetone, etc. Also discontinue Vitamin C, Vitamin E, Dinosaur-3 Fatty Acid, Fish Oil or Lovaza, and [...] If the bleeding does not stop, call [facility] [phone] or go to the Emergency Room. Signs/Symptoms of Infection: If you have any fever, chills, nausea, vomiting or increased odor, drainage, pain or redness to thewound, call [facility] at [phone]. If after hours, contact your family physician [...] oz cooked 22 Luna 1 slice 3 Lao-style Luna (Back Luna) 1 slice 5-6 Eggs and Dairy Egg Large 6 Milk 1 cup 8 Cottage Cheese cup 15 Yogurt 1 cup 8-12 American Yogurt 6 oz 18 Soft Cheeses (Mozzarella, Brie) 1 oz 6 Medium Cheeses(Cheddar,Irish) 1 oz 7-8 Hard Cheeses (Parmesan) 1 oz 10 Beans / Soy Tofu cup 10 Soy Milk 1 cup 6-10 Soy Beans cup cooked 14 Edamame cup 8-12 Most Beans (black, spear, lentils) cup cooked 7-10 Split Peas cup cooked 8 Nuts and Seeds Peanut Butter 2 Tablespoons 8 Peanuts cup 9 Almonds cup 8 Cashews cup 5 Pecans cup 2.5 Collingsworth Seeds cup 6 Pumpkin Seeds cup 19 [...] If the bleeding does not stop, call [facility] [phone] or go to the Emergency Room. Signs/Symptoms of Infection: If you have any fever, chills, nausea, vomiting or increased odor, drainage, pain or redness to thewound, call [facility] at [phone]. If after hours, contact your family physician [...] oz cooked 22 Luna 1 slice 3 Lao-style Luna (Back Luna) 1 slice 5-6 Eggs and Dairy Egg Large 6 Milk 1 cup 8 Cottage Cheese cup 15 Yogurt 1 cup 8-12 American Yogurt 6 oz 18 Soft Cheeses (Mozzarella, Brie) 1 oz 6 Medium Cheeses(Cheddar,Irish) 1 oz 7-8 Hard Cheeses (Parmesan) 1 oz 10 Beans / Soy Tofu cup 10 Soy Milk 1 cup 6-10 Soy Beans cup cooked 14 Edamame cup 8-12 Most Beans (black, spear, lentils) cup cooked 7-10 Split Peas cup cooked 8 Nuts and Seeds Peanut Butter 2 Tablespoons 8 Peanuts cup 9 Almonds cup 8 Cashews cup 5 Pecans cup 2.5 Collingsworth Seeds cup 6 Pumpkin Seeds cup 19 [...] next appointment. Medical Supplies were ordered through [employer], if you have any questions regarding your supply order, please contact their office directly @ [phone]. High Blood Pressure: If your blood pressure [...] If the bleeding does not stop, call [facility] [phone] or go to the Emergency Room. Signs/Symptoms of Infection: If you have any fever, chills, nausea, vomiting or increased odor, drainage, pain or redness to thewound, call [facility] at [phone]. If after hours, contact your family physician [...] oz cooked 22 Luna 1 slice 3 Lao-style Luna (Back Luna) 1 slice 5-6 Eggs and Dairy Egg Large 6 Milk 1 cup 8 Cottage Cheese cup 15 Yogurt 1 cup 8-12 American Yogurt 6 oz 18 Soft Cheeses (Mozzarella, Brie) 1 oz 6 Medium Cheeses(Cheddar,Irish) 1 oz 7-8 Hard Cheeses (Parmesan) 1 oz 10 Beans / Soy Tofu cup 10 Soy Milk 1 cup 6-10 Soy Beans cup cooked 14 Edamame cup 8-12 Most Beans (black, spear, lentils) cup cooked 7-10 Split Peas cup cooked 8 Nuts and Seeds Peanut Butter 2 Tablespoons 8 Peanuts cup 9 Almonds cup 8 Cashews cup 5 Pecans cup 2.5 Collingsworth Seeds cup 6 Pumpkin Seeds cup 19 [...] Catalan Home Medication Instructions Prior to Surgery RICKI:[id number] Printed on:08/28/19 7544 Medication Information Take last dose on Take the morning of surgery Comment(s) adalimumab (HUMIRA) 40 mg/0.8 mL syringe Inject 40 mg under the skin every 14 (fourteen) days Reasons: rheumatoid arthritis. Stop today if not already stopped. Hold for six weeks after surgery or as directed by your bass fisher cholecalciferol, vitamin D3, (VITAMIN D3 ORAL) Take [...] stopped. Resume postop when ok with your bass fisher methotrexate 25 mg/mL injection 50 mg once [...] medications that contain aspirin, such as Patricia Ben Bolt, Pepto- Bismol, Anacin), antiinflammatory medications such as Advil, Motrin, Ibuprofen, Naproxen, Aleve, Patricia Ben Bolt, Pepto-Bismol, Anacin, Diclofenac, Voltaren, Daypro, Etodolac, Ketoprofen, Piroxicam, Relafen, Nabumetone, etc. Also discontinue Vitamin C, Vitamin E, Dinosaur-3 Fatty Acid, Fish Oil or Lovaza, and [...] measure Discharge Instructions * Instructions* Alyssia Faria, [facility] - 02/26/2019 General Post-Operative Sheets for Dr. [...] the office to providea new prescription for pickle processor at the office and you will be notified when it is ready. Messages left for refills on or Monday may not be able to be given until that following Monday. No pain medication is refilled or prescribed over the weekend. Please keep this in mind when you start getting low on your medication. WITH THE NEW LAWS IN [place] THE PRESCIBED USE OF OPIODS WE [...] number at [facility] is: [phone]. - If you need to make a physical therapy appointment please call [facility] at: [phone] -If you leave a message after normal [...] on the weekends. If possible go to [facility] at [address] [place] [address] in [place]. POST OP INSTRUCTIONS - DR. ALMANZAR Activity [...] documented in this encounter* Instructions* Marilyn Ramirez, [employer] SE[employer] - 09/04/2019 General Post-Operative Sheets for Dr. [...] the office to providea new prescription for pickle processor at the office and you will be notified when it is ready. Messages left for refills on or Monday may not be able to be given until that following Monday. No pain medication is refilled or prescribed over the weekend. Please keep this in mind when you start getting low on your medication. WITH THE NEW LAWS IN [place] THE PRESCIBED USE OF OPIODS WE [...] 5pm. - Dr. Almanzar's office number at [facility] is: [phone]. - If you need to make a physical therapy appointment please call AT at: [phone] -If you leave a message after normal [...] on the weekends. If possible go to [facility] at [address] [place] [address] in [place]. TOTAL ELBOW POST OP INSTRUCTIONS - DR. [...] dressing changes to be every M-W- by [facility]. Pt to take pain medication 1 hour before dressing change. * Discharge Instr - Care Coordination* Gera York LSW - 10/14/2019 3:35 PM EST Home Health Care Services: [facility] P: [phone] F: [phone] * Additional Instructions* Marzena Wiley, TICKET SELLER - 10/14/2019 General Post-Operative Sheets for Dr. [...] the office to providea new prescription for pickle processor at the office and you will be notified when it is ready. Messages left for refills on or Monday may not be able to be given until that following Monday. No pain medication is refilled or prescribed over the weekend. Please keep this in mind when you start getting low on your medication. WITH THE NEW LAWS IN [place] THE PRESCIBED USE OF OPIODS WE [...] number at [facility] is: [phone]. - If you need to make a physical therapy appointment please call [facility] at: [phone] -If you leave a message after normal [...] on the weekends. If possible go to [facility] at [address] [place] [address] in [place]. POST OP INSTRUCTIONS - DR. ALMANZAR Activity [...] call 911 documented in this encounter* Instructions* Lissa Dangelo CNP - 04/06/2020 General Post-Operative Sheets for Dr. [...] the office to providea new prescription for pickle processor at the office and you will be notified when it is ready. Messages left for refills on or Monday may not be able to be given until that following Monday. No pain medication is refilled or prescribed over the weekend. Please keep this in mind when you start getting low on your medication. WITH THE NEW LAWS IN [place] THE PRESCIBED USE OF OPIODS WE [...] 5pm. - Dr. Almanzar's office number at [facility] is: [phone]. - If you need to make a physical therapy appointment please call [facility] at: [phone] -If you leave a message after normal [...] on the weekends. If possible go to [facility] at [address] [place] [address]. UPPER EXTREMITY REPAIR SURGERY POST OP INSTRUCTIONS [...] regular office hours or go to the [place] ER if after hours if you: -Signs [...] if you do not already have one, [phone]. 1ST POST OP APPT: 1ST PT APPT: [...] your doctor if you can take an [id number]-[id number] medicine. Take your pain medicine as soon [...] Log into your personal health record on [email or web address] and enter M536 in the Education box to learn more about Nausea and Vomiting After Surgery documented in this encounter History of Present Illness * Rochelle Dewitt MD - 02/28/2019 12:57 PM EDT [facility] DAILY PROGRESS NOTE Assessment and Plan Elsa Catalan is a 58 y.o. 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 documented in this encounter* Rose Mendoza CNP - 04/23/2019 2:43 PM EDT Associated Order(s): Wound Debridement Post-Procedure Diagnose(s): Skin ulcer of elbow with fat layer exposed (HCC) WOUND CARE PROVIDER PROGRESS NOTE Patient Name: Elsa Catalan MR #: [id number] : 1960 ASSESSMENT, PLAN, & ORDERS: Goals [...] / Therapies: DSD prior to coming to [facility]. Severity: Full thickness, Duration: 02/27/19 Timing: [...] % 1-25% 04/23/2019 3:00 PM Granulation % 1-25%;[place] 04/23/2019 3:00 PM Exposed Structure None 04/23/2019 [...] to verify the correct patient, procedure, equipment, product support technician and site/side marked as required Timeout performed: [...] HEAD EXCISION; Surgeon: Ayde Almanzar DO; Location: [facility] Main OR; Service: Orthopedic HYSTERECTOMY Still has [...] file Gets together: Not on file Attends alevism service: Not on file Active member of [...] NOTE Patient Name: Elsa Catalan MR #: [id number] : 1960 ASSESSMENT, PLAN, & ORDERS: Goals [...] / Therapies: DSD prior to coming to [facility]. Severity: Full thickness, Duration: 02/27/19 Timing: [...] HEAD EXCISION; Surgeon: Ayde Almanzar DO; Location: [facility] Main OR; Service: Orthopedic HYSTERECTOMY Still has [...] file Gets together: Not on file Attends alevism service: Not on file Active member of [...] week. Follow-up with [facility]. * Cathy Deleon RN - 04/30/2019 1:54 PM EDT Rose Mendoza CNP made aware of patient blood pressure reading. documented in this encounter* Marilyn Ramirez CNP - 09/05/2019 10:49 AM EST ORTHOPEDIC SURGERY DAILY PROGRESS NOTE Patient Name: Elsa Catalan MR #: [id number] POD # 1 - Pt HD stable, [...] Patient and family updated at bedside - [facility] following for medical management/appreciate recs Plan discussed with Dr. Almanzar. DISPO: Likely discharged home later today once seen by PT and stable per [facility] Subjective: Perpetual Assessment: POD #1 . Patient [...] reviewed Jackie Torres CNP Department of Surgery [phone] Also available on [facility] [place] 08/26/19 8:13 AM * Meenakshi Lim RN [...] of AVS and wheelchair downstairs. * Marzena Wiley, BREE - 10/14/2019 1:07 PM EST DAILY PROGRESS NOTE Patient Name: Elsa Catalan MR #: [id number] Hospital Course: No notes on file Assessment/Plan: [...] wound healing - Pt discussed with Dr. Jenelle puente for discharge once HHC and wound vac [...] Marx MD - 10/14/2019 1:04 PM EST [facility] DAILY PROGRESS NOTE Assessment and Plan Elsa [...] which have been restarted Consider involving her Neurosurgery Research Director to discuss risks/benefits DM Lantus with sliding [...] DO - 10/14/2019 12:48 PM EST Elsa Catalan 59 y.o. female Subjective: S/P Left Elbow [...] weeks Ayde Almanzar DO * Rosa Cooper LISW-S - 10/14/2019 10:21 AM EST COMPLEX DISCHARGE Date: 10/14/2019 Time: 10:21 AM Patient Name: Elsa Catalan Date of : 1960 Sex: Female 1:47 pm: GLORIA attempted to reach Evan [facility] rep. Per his voice mail, he is out of the area this week. GLORIA called the [facility] office ([phone]) and spoke with Meeta. She stated that she has put a note on the case to request that it be expedited. 1:28 pm: GLORIA spoke with Susana at [facility]. Susana stated that she was currently reviewing case and needed to see if they were able to accept from a staffing perspective. Susana will provide response to GLORIA. 11:28 am: Wound vac order submitted and prescription faxed. GLORIA met with pt in pt's room. Pt reported that she thought that [facility] serviced her area. She believes that she utilized [facility] approximately 7 years ago. GLORIA checked with [facility] liaison, but [facility] does not service pt's home area. GLORIA made referral to [facility]. They report that they do service this area. Await response regarding ability to accept. Discharge Planning Living Arrangements: Spouse/significant other Support Systems: Spouse/significant other Assistance Needed: min Type of Residence: Private residence Prior to Admission Home Care Services: No Discharge Readiness Expected Discharge Date: 10/14/19 Barriers to Discharge: Pre-certification [facility] Disposition D/C Disposition: Home Health Care Services Related to Current Admission?: Yes Agency/Destination: Other(TBD) HME: Other (Comment)(wound vac) HME Agency: Other (Comment)([facility]) * Sherrill Chung LISW - 10/13/2019 7:08 PM EST DISCHARGE PLAN PROGRESS NOTE Date: 10/13/2019 Time: 7:09 PM Patient Name: Elsa Catalan Date of : 1960 Sex: Female SW submitted clinicals to [facility] for wound vac approval and will f/u on Monday re: outcome. Pt has [employer] insurance. SW will need to f/u with pt re: RN for wound vac/dressing change needs. She lives in [facility]. Discharge Readiness Expected Discharge Date: 10/14/19 Barriers to Discharge: Pre-certification [facility] Disposition D/C Disposition: Home Health Care Services Related to Current Admission?: Yes Agency/Destination: Other(TBD) HME: Other (Comment)(wound vac) HME Agency: Other (Comment)([facility]) * TreyJaDO - 10/13/2019 3:29 PM EST [facility] DAILY PROGRESS NOTE Assessment and Plan Elsa [...] which have been restarted Consider involving her Neurosurgery Research Director to discuss risks/benefits DM Lantus with sliding [...] NOTE Patient Name: Elsa Catalan MR #: [id number] : 1960 ASSESSMENT, PLAN, & ORDERS: Goals [...] / Therapies: DSD prior to coming to [facility]. Severity: Full thickness, Duration: 09/03/19 Timing: [...] to verify the correct patient, procedure, equipment, product support technician and site/side marked as required Timeout performed: [...] HEAD EXCISION; Surgeon: Ayde Almanzar DO; Location: [facility] Main OR; Service: Orthopedic ARTHROPLASTY ELBOW TOTAL Left 09/04/2019 Procedure: LEFT TOTAL ELBOW ARTHROPLASTY WITH ULNAR NERVE RELEASE WITH ANTERIOR TRANSPOSITION, EXCISION RADIAL HEAD; Surgeon: Ayde Almanzar DO; Location: [facility] Main OR; Service: Orthopedic HYSTERECTOMY Still has [...] file Gets together: Not on file Attends alevism service: Not on file Active member of club or organization: Not on file Attends meetings of clubs or organizations: Not on file Relationship status: Not on file Other Topics Concern Not on file Social History Narrative Not on file Family History Problem Relation Age of Onset Heart disease Mother Arthritis Father Asthma Father Diabetes Father Heart disease Father Rose Mendoza CNP Electronically signed by the above provider 10/08/19 [...] subsequent encounter Nusrat Marx MD [address] [place] [address] Specialty Diagnoses / Procedures Referred By Contac t Referred To Contact [facility] Diagnoses Abnormality of gait Procedures CONSULT TO PHYSICAL THERAPY PHYSICAL THERAPY EVALUATION HIGH COMPLEX 45 MINS Pepe Carter MD [address] [address] [facility] [place] [address] [place] [address] Referral ID Status Reason Start Date Expiration Date Visits Requested Visits Authorized [id number] Pending Review Auto-Generat ed Referral 11/23/2023 11/22/2024 1 1 Specialty Diagnoses / Procedures Referred By Contac t Referred To Contact Orthopedics Diagnoses Trigger middle finger of right hand Bilateral hand pain Chronic elbow pain, right Procedures CONSULT TO ORTHOPAEDICS OFFICE/OUTPATIENT [facility] MDM 60 MINUTES Pepe Carter MD [address] [address] [place] [address] [place] [address] Referral ID Status Reason Start Date Expiration Date Visits Requested Visits Authorized [id number] Authorized PCP Requested Referral 05/18/2024 05/18/2025 1 1 Specialty Diagnoses / Procedures Referred By Contac t Referred To Contact XR IMAGING Diagnoses Trigger middle finger of right hand Bilateral hand pain Procedures XR HAND GENERAL 3V PA/LAT/OBL BILATERAL RADEX HAND MINIMUM 3 VIEWS Pepe Carter MD [address] [address] [place] [address] Referral ID Status Reason Start Date Expiration Date Visits Requested Visits Authorized [id number] Authorized Auto-Generat ed Referral 05/18/2024 06/17/2025 1 1 Specialty Diagnoses / Procedures Referred By Contac t Referred To Contact XR IMAGING Diagnoses Postmenopausal osteoporosis of multiple sites Procedures DXA-AXIAL SKELETON Pepe Carter MD [address] [address] [place] [address] Referral ID Status Reason Start Date Expiration Date Visits Requested Visits Authorized [id number] Authorized Auto-Generat ed Referral 05/18/2024 06/17/2025 1 1 Specialty Diagnoses / Procedures Referred By Contac t Referred To Contact XR IMAGING Diagnoses Postmenopausal osteoporosis of multiple sites Procedures DXA-FOREARM SKELETON DXA BONE DENSITY STUDY /SITES APPENDICLR SKEL Pepe Carter MD [address] [address] [place] [address] Referral ID Status Reason Start Date Expiration Date Visits Requested Visits Authorized [id number] Authorized Auto-Generat ed Referral 05/18/2024 06/17/2025 1 1 Additional Source Comments INFORMATION SOURCE (unrecogn ized section and content) DATE CREATED AUTHOR 03/28/2018 [facility] DATE CREATED AUTHOR AUTHOR'S ORGANIZ ATION 10/08/2019 [facility] DATE CREATED AUTHOR AUTHOR'S ORGANIZ ATION 10/14/2019 [facility] DATE CREATED AUTHOR AUTHOR'S ORGANIZ ATION 04/19/2020 [facility] DATE CREATED AUTHOR AUTHOR'S ORGANIZ ATION 04/24/2020 [facility] DATE CREATED AUTHOR AUTHOR'S ORGANIZ ATION 05/28/2021 [facility] DATE CREATED AUTHOR AUTHOR'S ORGANIZ ATION 09/18/2021 [facility] DATE CREATED AUTHOR AUTHOR'S ORGANIZ ATION 09/19/2021 [facility] DATE CREATED AUTHOR AUTHOR'S ORGANIZ ATION 12/10/2022 [facility] DATE CREATED AUTHOR AUTHOR'S ORGANIZ ATION 06/08/2024 [facility] Reason for Visit (unrecogniz ed section [...] Comments Follow Up Pain Ongoing generalized pain. Reason Comments Patient Question Reason Comments Follow Up Sveta Silva, DO - 02/21/2019 12:53 PM Ayde Connell, - 02/27/2019 6:28 AM Sveta Mello, - 02/21/2019 12:53 PM Ayde Connell, - 09/04/2019 8:33 AM EST H&P Notes (unrecognized sect ion and content) Assessment and Plan 1. Pre-op exam Preoperative medical risk stratification indicates that the patient is at acceptable risk for elective/major surgery-02/27; RIGHT TOTAL ELBOW ARTHROPLASTY, ULNAR NERVE RELEASE WITH ANTERIOR TRANSPOSITION, RADIAL HEAD EXCISION AT [facility] OR [facility] pending laboratory/cervical spine x-ray series. Creatinine, [...] acceptable cardiac risk based on the 2014 [place] College of Cardiology/[place] Heart Association (ACC/AHA) guideline on Perioperative Cardiovascular [...] stress dose glucocorticoids are not indicated. 2017 [place] College of Rheumatology/[place] Association of Hip and Knee Surgeons Guideline for the Perioperative Management of Antirheumatic Medication in Patients With Rheumatic Diseases Undergoing Elective Total Hip or Total Knee Arthroplasty. Arthritis Care & Research Vol. 69, No. 8, May 2017, pp 9595-4562 DOI 10.1002/acr.62500 9. Fibromyalgia Controlled on gabapentin take a.m. day of surgery. 10. PONV (postoperative nausea and vomiting) Webster use of pre/postoperative antiemetics recommended. 11. No contraindication to deep vein thrombosis (DVT) prophylaxis Deep venous thrombosis prophylaxis per primary service. Recommend: 2011 Antithrombotic therapy for VTE disease: Antithrombotic Therapy and Prevention of Thrombosis, 9 ed: [place] [employer] Evidence- Based Clinical Practice Guidelines. Chief Complaint Patient presents with Pre-operative Medical Risk Stratification History of Present Illness Elsa Catalan is a 58 y.o. female who presents for preoperative medical risk stratification consult at the request of Ayde Almanzar DO prior to 02/27; RIGHT TOTAL ELBOW ARTHROPLASTY, ULNAR NERVE RELEASE WITH ANTERIOR TRANSPOSITION, RADIAL HEAD EXCISION AT [facility] OR [facility]. Pt states she has rheumatoid arthritis [...] Arrhythmia 02/21/2019 Bleeding disorder (HCC) 02/20/2019 Cancer (HCC) 02/21/2019 Coronary artery disease 02/20/2019 Deep vein thrombosis (HCC) 02/21/2019 Diabetes mellitus type I (HCC) 02/21/2019 Hard to intubate 02/21/2019 History of blood transfusion 02/21/2019 History of cardiac cath 02/21/2019 History of echocardiogram 02/21/2019 History of stress test 02/20/2019 Malignant hyperthermia due to anesthesia 02/21/2019 Myocardial infarction (HCC) 02/21/2019 No blood products 02/21/2019 Pulmonary embolism (HCC) 02/21/2019 Sleep apnea, obstructive 02/20/2019 Stroke ([facility]) 02/21/2019 Past Surgical History: Procedure Laterality Date [...] Elsa Catalan Admit Date: [id number] MR #: [id number] : 1960 The H&P has been reviewed [...] WITH ANTERIOR TRANSPOSITION, RADIAL HEAD EXCISION AT [facility] OR [facility] pending laboratory/cervical spine x-ray series. Creatinine, [...] acceptable cardiac risk based on the 2014 [place] College of Cardiology/[place] Heart Association (ACC/AHA) guideline on Perioperative Cardiovascular [...] stress dose glucocorticoids are not indicated. 2017 [place] College of Rheumatology/[place] Association of Hip and Knee Surgeons Guideline for the Perioperative Management of Antirheumatic Medication in Patients With Rheumatic Diseases Undergoing Elective Total Hip or Total Knee Arthroplasty. Arthritis Care & Research Vol. 69, No. 8, May 2017, pp 1364-1466 DOI 10.1002/acr.57262 9. Fibromyalgia Controlled on gabapentin take a.m. day of surgery. 10. PONV (postoperative nausea and vomiting) Webster use of pre/postoperative antiemetics recommended. 11. No contraindication to deep vein thrombosis (DVT) prophylaxis Deep venous thrombosis prophylaxis per primary service. Recommend: 2012 Antithrombotic therapy for VTE disease: Antithrombotic Therapy and Prevention of Thrombosis, 9th ed: [place] [employer]icians Evidence- Based Clinical Practice Guidelines. Chief Complaint Patient presents with Pre-operative Medical Risk Stratification History of Present Illness Elsa Catalan is a 58 y.o. female who presents for preoperative medical risk stratification consult at the request of Ayde Almanzar DO prior to 02/27; RIGHT TOTAL ELBOW ARTHROPLASTY, ULNAR NERVE RELEASE WITH ANTERIOR TRANSPOSITION, RADIAL HEAD EXCISION AT [facility] OR [facility]. Pt states she has rheumatoid arthritis [...] Arrhythmia 02/21/2019 Bleeding disorder (HCC) 02/20/2019 Cancer (HCC) 02/21/2019 Coronary artery disease 02/20/2019 Deep vein thrombosis (HCC) 02/21/2019 Diabetes mellitus type I (HCC) 02/21/2019 Hard to intubate 02/21/2019 History of blood transfusion 02/21/2019 History of cardiac cath 02/21/2019 History of echocardiogram 02/21/2019 History of stress test 02/20/2019 Malignant hyperthermia due to anesthesia 02/21/2019 Myocardial infarction (HCC) 02/21/2019 No blood products 02/21/2019 Pulmonary embolism (HCC) 02/21/2019 Sleep apnea, obstructive 02/20/2019 Stroke ([facility]) 02/21/2019 Past Surgical History: Procedure Laterality Date [...] Elsa Catalan Admit Date: [id number] MR #: [id number] : 1960 The H&P has been reviewed [...] of Dr. 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 -IDDMII, several years, followed [...] (HCC) 08/28/2019 Bleeding disorder (HCC) 02/20/2019 Cancer (HCC) 02/21/2019 CHF (congestive heart failure) (HCC) 08/28/2019 Coronary artery disease 02/20/2019 Deep vein thrombosis (HCC) 02/21/2019 Diabetes mellitus type I (HCC) 02/21/2019 Edema 08/28/2019 Hard to intubate 02/21/2019 Heart murmur 08/28/2019 Heart valve disease 08/28/2019 History of blood transfusion 02/21/2019 History of cardiac cath 02/21/2019 History of echocardiogram 02/21/2019 History of stress test 02/20/2019 Malignant hyperthermia due to anesthesia 02/21/2019 Myocardial infarction (HCC) 02/21/2019 No blood products 02/21/2019 Pulmonary embolism (HCC) 02/21/2019 Sleep apnea, obstructive 02/20/2019 Stroke ([facility]) 02/21/2019 Past Surgical History: Procedure Laterality Date ARTHROPLASTY ELBOW TOTAL Right 02/27/2019 Procedure: RIGHT TOTAL ELBOW ARTHROPLASTY, ULNAR NERVE RELEASE WITH ANTERIOR TRANSPOSITION, RADIAL HEAD EXCISION; Surgeon: Ayde Almanzar DO; Location: [facility] Main OR; Service: Orthopedic HYSTERECTOMY Still has [...] 12 inches Recent Results (from the past 83274 hours) XR ELBOW RIGHT 3+ VIEWS (STANDARD) [...] surgery. COMPARISON: Right elbow radiographs 07/21/2016 from [facility]. FINDINGS: Three views of the [...] Name: Elsa Catalan Admit Date: MR #: [id number] : 1960 The H&P has been reviewed and the patient has been examined. I concur with the findings of the H&P. There are no significant changes. It is appropriate to proceed with the planned procedure. Ayde Almanzar DO 10/13/2019 9:03 AM HMS HISTORY AND PHYSICAL Patient Name: Elsa Catalan : 1960 MR #: [id number] Admit Date: Physicians: Pretty Fermin MD (Family); [...] which have been restarted Consider involving her Neurosurgery Research Director to discuss risks/benefits DM Lantus with sliding scale insulin. Dose adjusted for this evening Hypothyroid Synthroid HLD Statin Admitted From: Home Medication Reconciliation: Verified Code Status: Full Code Quality Measures DVT Prophylaxis: Ambulate - lovenox if stay prolonged/ok with ortho Hickey Catheter: none Disposition Outpatient Testing: NA Chief Complaint Non healing wound History of Present Illness Patient was directed to [facility] for admission per her orthopedic surgeon. She [...] HEAD EXCISION; Surgeon: Ayde Almanzar DO; Location: [facility] Main OR; Service: Orthopedic ARTHROPLASTY ELBOW TOTAL Left 09/04/2019 Procedure: LEFT TOTAL ELBOW ARTHROPLASTY WITH ULNAR NERVE RELEASE WITH ANTERIOR TRANSPOSITION, EXCISION RADIAL HEAD; Surgeon: Ayde Almanzar DO; Location: [facility] Main OR; Service: Orthopedic HYSTERECTOMY Still has [...] Name: Elsa Catalan Admit Date: MR #: [id number] : 1960 The H&P has been reviewed [...] WITH MANIPULATION UNDER ANESTHESIA on 04-08-20 at [facility]. Patient states she had a left elbow [...] failed other treatments. Based on questioning at [facility] - patient has no current signs [...] Diagnosis Date Noted Anemia 02/21/2019 Angina pectoris ([facility]) 02/21/2019 Arrhythmia 02/21/2019 Atrial fibrillation ([facility]) 08/28/2019 Bleeding disorder ([facility]) 02/20/2019 Cancer ([facility]) 02/21/2019 CHF (congestive heart failure) ([facility]) 08/28/2019 Coronary artery disease 02/20/2019 Deep vein thrombosis ([facility]) 02/21/2019 Diabetes mellitus type I ([facility]) 02/21/2019 Edema 08/28/2019 Hard to intubate 02/21/2019 Heart murmur 08/28/2019 Heart valve disease 08/28/2019 History of blood transfusion 02/21/2019 History of cardiac cath 02/21/2019 History of echocardiogram 02/21/2019 History of stress test 02/20/2019 Malignant hyperthermia due to anesthesia 02/21/2019 Myocardial infarction (HCC) 02/21/2019 No blood products 02/21/2019 Pulmonary embolism ([facility]) 02/21/2019 Sleep apnea, obstructive 02/20/2019 Stroke ([facility]) 02/21/2019 Past Surgical History: Procedure Laterality Date ARTHROPLASTY ELBOW TOTAL Right 02/27/2019 Procedure: RIGHT TOTAL ELBOW ARTHROPLASTY, ULNAR NERVE RELEASE WITH ANTERIOR TRANSPOSITION, RADIAL HEAD EXCISION; Surgeon: Ayde Almanzar DO; Location: [facility] Main OR; Service: Orthopedic ARTHROPLASTY ELBOW TOTAL Left 09/04/2019 Procedure: LEFT TOTAL ELBOW ARTHROPLASTY WITH ULNAR NERVE RELEASE WITH ANTERIOR TRANSPOSITION, EXCISION RADIAL HEAD; Surgeon: Ayde Almanzar DO; Location: [facility] Main OR; Service: Orthopedic COLONOSCOPY HYSTERECTOMY Still has ovaries INCISION AND DRAINAGE UPPER EXTREMITY Left 10/13/2019 Procedure: INCISION AND DRAINAGE LEFT ELBOW WITH WOUND VAC APPLICATION; Surgeon: Ayde Almanzar DO; Location: [facility] Main OR; Service: Ortho-Robotics JOINT REPLACEMENT Right [...] 14.5 inches Recent Results (from the past 50107 hours) XR CHEST PA/AP 09/05/2019 (Final) Status: [...] of Dr. 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 -IDDMII, several years, followed [...] 02/21/2019 Atrial fibrillation (HCC) 08/28/2019 Bleeding disorder ([facility]) 02/20/2019 Cancer ([facility]) 02/21/2019 CHF (congestive heart failure) ([facility]) 08/28/2019 Coronary artery disease 02/20/2019 Deep vein thrombosis ([facility]) 02/21/2019 Diabetes mellitus type I ([facility]) 02/21/2019 Edema 08/28/2019 Hard to intubate 02/21/2019 Heart murmur 08/28/2019 Heart valve disease 08/28/2019 History of blood transfusion 02/21/2019 History of cardiac cath 02/21/2019 History of echocardiogram 02/21/2019 History of stress test 02/20/2019 Malignant hyperthermia due to anesthesia 02/21/2019 Myocardial infarction (HCC) 02/21/2019 No blood products 02/21/2019 Pulmonary embolism ([facility]) 02/21/2019 Sleep apnea, obstructive 02/20/2019 Stroke ([facility]) 02/21/2019 Past Surgical History: Procedure Laterality Date ARTHROPLASTY ELBOW TOTAL Right 02/27/2019 Procedure: RIGHT TOTAL ELBOW ARTHROPLASTY, ULNAR NERVE RELEASE WITH ANTERIOR TRANSPOSITION, RADIAL HEAD EXCISION; Surgeon: Ayde Almanzar DO; Location: [facility] Main OR; Service: Orthopedic HYSTERECTOMY Still has [...] 12 inches Recent Results (from the past 82811 hours) XR ELBOW RIGHT 3+ VIEWS (STANDARD) [...] surgery. COMPARISON: Right elbow radiographs 07/21/2016 from [facility]. FINDINGS: Three views of the [...] 12:21 PM EDTPlan of Care - Sherrill Castnao RN - 02/28/2019 4:10 PM EDT Miscellaneous Notes (unrecog nized section and content) Dr. Silva notified of critical lab value of 407 Patient Instructions for [facility]: Prior to surgery: ? Please be sure to wear loose, comfortable clothing and non-skid shoes ? Bring your health insurance information and a photo ID, as well as your Living Will or Durable Power of Wire Inserter for Healthcare if it is available to you. ? Bring your cane/walker any applicable assistive device. If you currently use a CPAP, please bring this device with you on the day of surgery. ? Bring a list of your medications with the name of the medication, dose and how often you are taking it. Be sure to include herbal preparations and [id number] medications on this list. ? Do not [...] of lotions, perfumes or powders. All nail bahraini is to be removed from fingernails and [...] day of your surgery/procedure. ? Parking at [facility] is free. Please park in the lot in front of the main lobby. Enter the Main Entrance where a Rush Seater Liaison at the information desk will greet [...] of your surgery preparation process here at [facility]. It will provide you with additional important [...] 02/28/19 10:21 AM: Laboratory, Medications and Transcriptions UR BERNALELSA NICOLE [facility] [id number] N [id number] 1960 DATE 02/27/2019 OPERATIVE REPORT SURGEON AYDE ALMANZAR DO CLOTHES MODEL ROCHELLE SALMERON PA-C PREOPERATIVE DIAGNOSES Right elbow: 1. Rheumatoid arthritis. 2. Ulnar nerve compression. POSTOPERATIVE DIAGNOSES Right elbow: 1. Rheumatoid arthritis. 2. Ulnar nerve compression. PROCEDURE Right elbow: 1. Total elbow arthroplasty using the Biomet Coonrad/Morrey total elbow system with an extra small cemented humeral component and an extra small ulnar component, 36148. 2. Ulnar nerve release with anterior transposition, 52165. 3. Excision of radial head, 70727. ANESTHESIA General with regional block. FLUIDS Crystalloid. [...] stable condition. I did utilize my physician pharmacy innovation assistant, Rochelle Salmeron, throughout the case. He was an integral part of the case, helped position the patient, assisted throughout the case as well as closure of the wounds, and helped transfer the patient to postanesthesia care unit. He was an integral part of the case. AYDE ALMANZAR DO D 02/27/2019 19:02 [id number] T 02/28/2019 01:19 TJK/MODL Pt oriented to [...] up to see patient. LRAHMAN ELSA CATALAN [facility] [id number] N [id number] 1960 DATE 09/04/2019 OPERATIVE REPORT SURGEON AYDE ALMANZAR DO CLOTHES MODEL ROCHELLE SALMERON, PHILLIP PREOPERATIVE DIAGNOSES Left elbow: 1. Rheumatoid arthritis. 2. Cubital tunnel syndrome. POSTOPERATIVE DIAGNOSES Left elbow: 1. Rheumatoid arthritis. 2. Cubital tunnel syndrome. PROCEDURE Left elbow: 1. Total elbow arthroplasty using Iam Coonrad/Morrey total elbow system with a size extra small cemented humerus and a size extra small cemented ulna, 45252. 2. Excision of radial head, 43359. 3. Ulnar nerve release and anterior transposition, 15291. ANESTHESIA General with regional block. FLUIDS Crystalloid. [...] was dislocated. I was using the Iam Coonrad/[employer] system. A piece of bone was taken [...] stable condition. I did utilize my physician pharmacy innovation assistant, Rochelle Salmeron, throughout the case. He was an integral part of the case, helped position the patient, assist throughout, as well as closure of wounds, and helped transfer the patient to the postanesthesia care unit. AYDE ALMANZAR DO D 09/04/2019 21:29 [id number] T 09/05/2019 00:28 SUPRIYA/SUSANL [facility] Review Notes DIAGNOSIS:M06.9; M24.522 NEED FOR SURGERY:M06.9; M24.522 DATE OF PROCEDURE: 09/04/2019 PROCEDURE: LEFT TOTAL ELBOW ARTHROPLASTY WITH ULNAR NERVE RELEASE WITH ANTERIOR TRANSPOSITION, EXCISION RADIAL HEAD POST OP COMPLICATIONS: none DISPOSITION: TBD POST OP Brief Post Operative Note Patient Name: Elsa Catalan : 1960 (59 y.o.) Date of Service: 09/04/2019 CSN: [id number] Procedure(s): LEFT TOTAL ELBOW ARTHROPLASTY WITH ULNAR NERVE RELEASE WITH ANTERIOR TRANSPOSITION, EXCISION RADIAL HEAD Pre-Operative Diagnoses: * M06.9; M24.522 Post-Operative Diagnoses: Surgeon(s) and Role: * Ayde Almanzar DO - Primary Anesthesiologist: Asim Qiu MD E Commerce Strategist: Stephanie Retana RN Physician Billing Typist: DYLLAN WilkinsonC Rn Trauma: Kristin Padilla, TECHNOLOGIST E Commerce Strategist Relief: Aimee Dietz RN Relief Scrub: ST Leonardo Scrub Person: ST Sue Scrub Person Assist: Stewart Scruggs RN Operative findings: see report Intra and immediate post-operative complications: none Type of anesthesia used: Regional, General Estimated blood loss: 100 mL Estimated urine output: 0 mL Specimen(s): * No specimens in log * Implant(s): Implant Name Type Inv. Item Serial No. Electric Clock Mechanic Lot No. LRB No. Used Action PLUG 8-10MM SM IM CANAL - [id number] PLUG 8-10MM SM IM CANAL BIOMET INC [id number] Left 1 Implanted CEMENT BONE ANTIBIOTIC SIMPLEX P W/TOBRAMYCIN SINGLE DOSE - [id number] Cement CEMENT BONE ANTIBIOTIC SIMPLEX P W/TOBRAMYCIN SINGLE DOSE INGRID OR [id number] Left 2 Implanted ALICIA/MORREY TOTAL ELBOW INTERCHANGEABLE HUMERAL ASSEMBLY EXTRA SMALL 4 INCH LENGTH IAM BIO [id number] Left 1 Implanted COONRAD/MORREY TOTAL ELBOW INTERCHANGEABLE ULNAR ASSEMBLY EXTRASMALL LEFT 3 INCH IAM BIO [id number] Left 1 Implanted PLUG 8MM CEMENT SM DIAMETER - [id number] PLUG 8MM CEMENT SM DIAMETER BIOMET INC [id number] Left 1 Implanted PLUG 8-10MM SM IM CANAL - [id number] PLUG 8-10MM SM IM CANAL BIOMET INC [id number] Left 1 Explanted Drain(s): * No LDAs [...] 10/14/19 1:21 PM: Laboratory and Microbiology [place] [facility] [id number] N [id number] 1960 DATE 10/13/2019 OPERATIVE REPORT SURGEON AYDE ALMANZAR DO CLOTHES MODEL ROCHELLE SALMERON PA-C PREOPERATIVE DIAGNOSES Left elbow: [...] and deep fascia as well as muscle, 13016. 2. Wound vacuum-assisted closure pressure device, a 14 x 7 x 1 cm wound, 55325. ANESTHESIA General. FLUIDS Crystalloid. ESTIMATED BLOOD LOSS [...] the joint. I did utilize my physician pharmacy innovation assistant, Rochelle Salmeron, throughout the case. He was an integral part of the case, helped position the patient, assist throughout the case as well as closure of the wound, help transfer the patient to postanesthesia care unit. DO Christina QUINONEZ 10/13/2019 11:50 [id number] T 10/13/2019 15:11 TJK/MODL Brief Post Operative Note Patient Name: Elsa Catalan : 1960 (59 y.o.) Date of Service: 10/13/2019 CSN: [id number] Procedure(s): INCISION AND DRAINAGE LEFT ELBOW WITH WOUND VAC APPLICATION Pre-Operative Diagnoses: * UNKNOWN Post-Operative Diagnoses: Surgeon(s) and Role: * Ayde Almanzar DO - Primary Anesthesiologist: Lazaro Alvarez MD E Commerce Strategist: Aimee Dietz RN Physician Billing Typist: Rochelle Salmeron PA-C Scrub Person: Anastasiia Gurrola [...] AM documented in this encounter ELSA CATALAN CSN [id number] 1960 DATE 04/08/2020 OPERATIVE REPORT SURGEON AYDE ALMANZAR DO CLOTHES MODEL ROCHELLE SALMERON PA-C CLOTHES MODEL 2 PEGGY MOSES CNP PREOPERATIVE DIAGNOSIS Left elbow. 1. Ulnar neuropathy. 2. Contracture. 3. Status post total elbow arthritis. POSTOPERATIVE DIAGNOSIS Left elbow. 1. Ulnar neuropathy. 2. Contracture. 3. Status post total elbow arthritis. PROCEDURE Left elbow. 1. Open excision of bone, soft tissue, and capsule with releases; 33981. 2. Ulnar nerve release with anterior transposition; 31353. ANESTHESIA General with regional block. FLUIDS Crystalloid. [...] stable condition. I did utilize my physician pharmacy innovation assistant, Rochelle Salmeron, and my nurse practitioner [...] year. AYDE ALMANZAR DO D 04/08/2020 13:56 [id number] T 04/08/2020 14:38 SUPRIYA/SUSANL Brief Post Operative Note Patient Name: Elsa Catalan : 1960 (59 y.o.) Date of Service: 04/08/2020 [facility]: [id number] Procedure(s): LEFT ELBOW ULNAR NERVE RELEASE WITH ANTERIOR TRANSPOSITION, TENDON LENGTHENING, CAPSULAR RELEASE WITH MANIPULATION UNDER ANESTHESIA Pre-Operative Diagnoses: * G56.22 Post-Operative Diagnoses: Surgeon(s) and Role: * Ayde Almanzar DO - Primary Anesthesiologist: Hiram Lucas MD BEATER ROOM HELPER: Stewart Mckeon CRNA E Commerce Strategist: Spring Odonnell RN Physician Billing Typist: Rochelle Salmeron PA-C E Commerce Strategist Relief: Miranda Randall RN Scrub Person: ST Ksenia E Commerce Strategist Orientee: Sherrill Santamaria RN Nurse Float: Suri [...] documented in this encounter Patient Instructions for [facility]: Prior to surgery: ? Please be sure to wear loose, comfortable clothing and non-skid shoes ? Bring your health insurance information and a photo ID, as well as your Living Will or Durable Power of Wire Inserter for Healthcare if it is available to you. ? Bring your cane/walker any applicable assistive device. If you currently use a CPAP, please bring this device with you on the day of surgery. ? Bring a list of your medications with the name of the medication, dose and how often you are taking it. Be sure to include herbal preparations and nsak-rph-tjelpon medications on this list. ? Do not [...] of lotions, perfumes or powders. All nail bahraini is to be removed from fingernails and [...] day of your surgery/procedure. ? Parking at [facility] is free. Please park in the lot in front of the main lobby. Enter the Main Entrance where a Rush Seater Liaison at the information desk will greet [...] yourself home. documented in this encounter Gera York, CORPORATE AIRCRAFT MECHANIC - 02/28/2019 1:44 PM Sherrill Ahumada OT - 02/28/2019 11:37 AM Rochelle Mack MD - 02/27/2019 1:29 PM Irma Jon OT - 09/05/2019 9:59 AM EST Consult [...] Prior to Admission Home Care Services: No [facility] Disposition D/C Disposition: Home Occupational Therapy OCCUPATIONAL [...] roles. The patient's home setup is a weather analyst and family/caregiver support is a weather analyst for return to prior level of function. The patient's education level is a weather analyst, compliance is a weather analyst and awareness of own capacity and performance is a weather analyst to return to prior level of function. 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 Associated Order(s): IP CONSULT TO [facility] CONSULTATION NOTE Patient Name: Elsa Catalan : 1960 MR #: [id number] Admit Date: [id number] Physicians: Delroy Bianchi DO [...] ACR guidelines Diabetes type 2, controlled, with long-term insulin use On metformin and lantus at home, held while in hospital Resume lantus and start correctional humalog for now Hypothyroidism On levothyroxine at home, resumed Medication Reconciliation: Verified Quality Measures DVT Prophylaxis: per surgery Hickey Catheter: placed pre-op Disposition Discharge Location: from home, independent Estimated Discharge Date: per surgery Outpatient Testing: undetermined Chief Complaint [facility] consulted by Ayde Almanzar DO for diabetes [...] a barrier and family/caregiver support is a weather analyst for return to prior level of function. The patient's education level is a weather analyst, compliance is a weather analyst and awareness of own capacity and performance is a weather analyst to return to prior level of function. [...] January. 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) Past Medical History: Diagnosis Date Asthma [...] HEAD EXCISION; Surgeon: Ayde Almanzar DO; Location: [facility] Main OR; Service: Orthopedic HYSTERECTOMY Still has [...] No Associated Order(s): IP CONSULT [facility] CONS[facility] Patient Name: Elsa Catalan : 1960 MR #: [id number] Admit Date: 12031010 Physicians: Pretty Fermin MD [...] home Metoprolol Held home Irbersartan, Can start / PRN Hydralazine RA Controlled Methotrexate, Sulfasalazine, Leflunonide [...] Outpatient Testing: TBD per primary Chief Complaint [facility] consulted by Ayde Almanzar DO for medical management History of Present Illness Elsa Catalan is [...] HEAD EXCISION; Surgeon: Ayde Almanzar DO; Location: [facility] Main OR; Service: Orthopedic HYSTERECTOMY Still has [...] follow for discharge planning. Received notification from [facility] that wound vac has been approved. GLORIA met with patient and spouse at bedside and [facility] ReadyVac delivered to patient's room (serial number [id number]). Proof of delivery form faxed back to [facility]. GLORIA placed call to [facility] who reports they are unable to accept patient due to staffing. GLORIA placed call to [facility] ([phone]) and per intake they can not accept patient due to staffing. GLORIA placed call to [facility] ([phone], f [phone]) who reports they can accept patient. Referral faxed and Day of Discharge Bundle faxed to intake at [facility]. Notified patient and spouse. AVS and orders updated. Notified RN. Discharge Planning Living Arrangements: Spouse/significant other Support Systems: Spouse/significant other Assistance Needed: min Type of Residence: Private residence Prior to Admission Home Care Services: No Discharge Readiness Expected Discharge Date: 10/14/19 Barriers to Discharge: Pre-certification [facility] Disposition D/C Disposition: Home Health Care Services Related to Current Admission?: Yes Agency/Destination: Other([facility]) Home Care Needs : Home health care [...] roles. The patient's home setup is a weather analyst and family/caregiver support is a weather analyst for return to prior level of function. The patient's education level is a weather analyst, compliance is a weather analyst and awareness of own capacity and performance is a weather analyst to return to prior level of function. [...] Accessible Prior Level of Function Level of [place]: Independent with ADLs and functional transfers, Independent [...] HEAD EXCISION; Surgeon: Ayde Almanzar DO; Location: [facility] Main OR; Service: Orthopedic ARTHROPLASTY ELBOW TOTAL Left 09/04/2019 Procedure: LEFT TOTAL ELBOW ARTHROPLASTY WITH ULNAR NERVE RELEASE WITH ANTERIOR TRANSPOSITION, EXCISION RADIAL HEAD; Surgeon: Ayde Almanzar DO; Location: [facility] Main OR; Service: Orthopedic HYSTERECTOMY Still has ovaries INCISION AND DRAINAGE UPPER EXTREMITY Left 10/13/2019 Procedure: INCISION AND DRAINAGE LEFT ELBOW WITH WOUND VAC APPLICATION; Surgeon: Ayde Almanzar DO; Location: [facility] Main OR; Service: Ortho-Robotics JOINT REPLACEMENT Right [...] Date of : 1960 Sex: Female SW received c/s earlier today from [facility] sharing that pt would be admitted from [...] Discharge Date: 10/14/19 Barriers to Discharge: Pre-certification [facility] Disposition D/C Disposition: Home Health Care Services Related to Current Admission?: Yes Agency/Destination: Other(TBD) CONSULT NOTE Patient Name: Elsa Catalan Admit Date: MR #: [id number] : 1960 Physicians: Pretty Fermin MD (Family); [...] hematoma and skin necrosis. Wound care at [facility] not improving. Started having n/t ulnar nerve from irritation. Admitted by [facility]. Patient has RA on meds. History: Past [...] HEAD EXCISION; Surgeon: Ayde Almanzar DO; Location: [facility] Main OR; Service: Orthopedic ARTHROPLASTY ELBOW TOTAL Left 09/04/2019 Procedure: LEFT TOTAL ELBOW ARTHROPLASTY WITH ULNAR NERVE RELEASE WITH ANTERIOR TRANSPOSITION, EXCISION RADIAL HEAD; Surgeon: Ayde Almanzar DO; Location: [facility] Main OR; Service: Orthopedic HYSTERECTOMY Still has [...] file Gets together: Not on file Attends alevism service: Not on file Active member of [...] Stephanie Serrato RN - 10/12/2019 2:33 PM ESTBraulio Garcia RN - 10/12/2019 2:00 PM Ted Turpin MD - 10/12/2019 1:32 PM ESTBraulio Garcia RN - 10/12/2019 1:10 PM EST ED Notes (unrecognized secti on and content) java tech notified Wet to dry dressing applied to right elbow, per Dr. Delvalle. [facility] EMERGENCY DEPARTMENT NAME: Elsa Catalan Age: 59 y.o. CSN: [id number] PCP: Pretty Fermin MD Chief Complaint: Post-op [...] HEAD EXCISION; Surgeon: Ayde Almanzar DO; Location: [facility] Main OR; Service: Orthopedic ARTHROPLASTY ELBOW TOTAL Left 09/04/2019 Procedure: LEFT TOTAL ELBOW ARTHROPLASTY WITH ULNAR NERVE RELEASE WITH ANTERIOR TRANSPOSITION, EXCISION RADIAL HEAD; Surgeon: Ayde Almanzar DO; Location: [facility] Main OR; Service: Orthopedic HYSTERECTOMY Still has [...] file Gets together: Not on file Attends alevism service: Not on file Active member of [...] or prosecute any alcohol or drug abuse patient.[facility] Hospital[facility] the event this information is protected by the Federal Confidentiality of Alcohol and Drug Abuse Patient Records regulations: The Federal rules restrict any use of the information to criminally investigate or prosecute any alcohol or drug abuse patient.[facility] HospitalIn the event this information is protected by the Federal Confidentiality of Alcohol and Drug Abuse Patient Records regulations: The Federal rules restrict any use of the information to criminally investigate or prosecute any alcohol or drug abuse patient.[facility] HospitalIn the event this information is protected by the Federal Confidentiality of Alcohol and Drug Abuse Patient Records regulations: The Federal rules restrict any use of the information to criminally investigate or prosecute any alcohol or drug abuse patient.[facility] HospitalIn the event this information is protected by the Federal Confidentiality of Alcohol and Drug Abuse Patient Records regulations: The Federal rules restrict any use of the information to criminally investigate or prosecute any alcohol or drug abuse patient.[facility] HospitalIn the event this information is protected by the Federal Confidentiality of Alcohol and Drug Abuse Patient Records regulations: The Federal rules restrict any use of the information to criminally investigate or prosecute any alcohol or drug abuse patient.[facility] HospitalIn the event this information is protected by the Federal Confidentiality of Alcohol and Drug Abuse Patient Records regulations: The Federal rules restrict any use of the information to criminally investigate or prosecute any alcohol or drug abuse patient.[facility] HospitalIn the event this information is protected by the Federal Confidentiality of Alcohol and Drug Abuse Patient Records regulations: The Federal rules restrict any use of the information to criminally investigate or prosecute any alcohol or drug abuse patient.[facility] HospitalIn the event this information is protected by the Federal Confidentiality of Alcohol and Drug Abuse Patient Records regulations: The Federal rules restrict any use of the information to criminally investigate or prosecute any alcohol or drug abuse patient.[facility] HospitalIn the event this information is protected by the Federal Confidentiality of Alcohol and Drug Abuse Patient Records regulations: The Federal rules restrict any use of the information to criminally investigate or prosecute any alcohol or drug abuse patient.[facility] HospitalIn the event this information is protected by the Federal Confidentiality of Alcohol and Drug Abuse Patient Records regulations: The Federal rules restrict any use of the information to criminally investigate or prosecute any alcohol or drug abuse patient.[facility] HospitalIn the event this information is protected by the Federal Confidentiality of Alcohol and Drug Abuse Patient Records regulations: The Federal rules restrict any use of the information to criminally investigate or prosecute any alcohol or drug abuse patient.[facility] HospitalIn the event this information is protected by the Federal Confidentiality of Alcohol and Drug Abuse Patient Records regulations: The Federal rules restrict any use of the information to criminally investigate or prosecute any alcohol or drug abuse patient.[facility] HospitalIn the event this information is protected by the Federal Confidentiality of Alcohol and Drug Abuse Patient Records regulations: The Federal rules restrict any use of the information to criminally investigate or prosecute any alcohol or drug abuse patient.[facility] HospitalIn the event this information is protected by the Federal Confidentiality of Alcohol and Drug Abuse Patient Records regulations: The Federal rules restrict any use of the information to criminally investigate or prosecute any alcohol or drug abuse patient.[facility] HospitalIn the event this information is protected by the Federal Confidentiality of Alcohol and Drug Abuse Patient Records regulations: The Federal rules restrict any use of the information to criminally investigate or prosecute any alcohol or drug abuse patient.[facility] Care Teams (unrecognized sec tion and content) Napht[employer] Washing System Operator Relationship Specialty Start Date End Date Pretty Fermin MD [address] [place] [address] PCP - General Family Practice 01/25/21 Napht[employer] Washing System Operator Relationship Specialty Start Date End Date Pretty Fermin MD [address] [place] [address] PCP - General Family Practice 01/25/21 Naphtha Washing System Operator Relationship Specialty Start Date End Date Pretty Fermin MD [address] [place] [address] PCP - General Family Practice 01/25/21 Naphtha Washing System Operator Relationship Specialty Start Date End Date Pretty Fermin MD [address] [place] [address] PCP - General Family Medicine 01/25/21 Naphtha Washing System Operator Relationship Specialty Start Date End Date Pretty Fermin MD [address] [place] [address] PCP - General Family Medicine 01/25/21 Naphtha Washing System Operator Relationship Specialty Start Date End Date Pretty Fermin MD [address] [place] [address] PCP - General Family Medicine 01/25/21 Naphtha Washing System Operator Relationship Specialty Start Date End Date Pretty Fermin MD [address] [place] [id number] PCP - General Family Medicine 01/25/21 Naphtha Washing System Operator Relationship Specialty Start Date End Date Pretty Fermin MD [address] [place] [id number] PCP - General Family Medicine 01/25/21 Naphtha Washing System Operator Relationship Specialty Start Date End Date Pretty Fermin MD PCP - General Family Medicine 01/25/21 Napht[employer] Washing System Operator Relationship Specialty Start Date End Date Pretty Fermin MD PCP - General Family Medicine 01/25/21 Naphtha Washing System Operator Relationship Specialty Start Date End Date Pretty Fermin MD PCP - General Family Medicine 01/25/21 Naphtha Washing System Operator Relationship Specialty Start Date End Date Pretty Fermin MD PCP - General Family Medicine 01/25/21 Naphtha Washing System Operator Relationship Specialty Start Date End Date Pretty Fermin MD PCP - General Family Medicine 01/25/21 Naphtha Washing System Operator Relationship Specialty Start Date End Date Pretty Fermin MD PCP - General Family Medicine 01/25/21 Napht[employer] Washing System Operator Relationship Specialty Start Date End Date Pretty Fermin MD PCP - General Family Medicine 01/25/21 Naphtha Washing System Operator Relationship Specialty Start Date End Date Pretty [...] BE BASED ON THE PRIMARY CLINICAL RECORDS. [facility]. provides no warranty or guarantee of the accuracy or completeness of information in this document.
--- NOTE | 2024-06-17 18:35 | P.HP_ITS ---
HPI H&P: HPI History of Present Illness Chief complaint: FALL right hip fracture Narrative: Patient seen and evaluated in the emergency room after a fall. Has been doing pretty well healthwise lately. No exacerbation of her asthma. Was going up a step, foot got caught, twisted and landed on her hip resulting in acute pain. Presented to the emergency room found to have nondisplaced hip fracture. Patient admitted for workup and treatment of same I saw patient up on the medical surgical floor, she was resting comfortably without complaint except the hip pain. Opioid HPI Opioid Management Most Recent Pain and Opioid Data: Last Pain Scale 10 06/17/24 15:58 Last MAR Pain Assessment 06/17/24 15:58 Last ORT Total Score 0 06/17/24 18:30 Last ORT Risk Category Low Risk 06/17/24 18:30 PFSH PFSH Medical History (Updated 06/17/24 @ 19:16 by Alex Bales MD) Hypertension ?I10 - Essential (primary) hypertension (ICD-10) Rheumatoid arthritis ?M06.9 - Rheumatoid arthritis, unspecified (ICD-10) TMJ (dislocation of temporomandibular joint) ?S03.00XA - Dislocation of jaw, unspecified side, initial encounter (ICD-10) Fibromyalgia ?M79.7 - Fibromyalgia (ICD-10) Diabetes mellitus ?E11.9 - Type 2 diabetes mellitus without complications (ICD-10) Surgical History (Updated 06/17/24 @ 18:57 by Rose Motley LPN) Hx of cataract surgery ?Z98.49 - Cataract extraction status, unspecified eye (ICD-10) History of left elbow replacement ?Z96.622 - Presence of left artificial elbow joint (ICD-10) History of right elbow replacement ?Z96.621 - Presence of right artificial elbow joint (ICD-10) History of right knee joint replacement ?Z96.651 - Presence of right artificial knee joint (ICD-10) H/O: hysterectomy ?Z90.710 - Acquired absence of both cervix and uterus (ICD-10) H/O thyroidectomy ?E89.0 - Postprocedural hypothyroidism (ICD-10) Family History (Updated 06/17/24 @ 18:58 by Rose Motley LPN) Other Family history of cancer Social History (Updated 06/17/24 @ 18:59 by Rose Motley LPN) Within the past year, how often did you have a drink containing alcohol: monthly or less Within the past year, how many standard drinks containing alcohol did you have on a typical day: 1 or 2 Total score: 0 Score interpretation: A score less than 3 is consistent with normal alcohol consumption. Smoking status: Never smoker Second hand tobacco smoke exposure: No Non-prescribed substance use: denies use Highest level of school completed/degree received: high school graduate Are you now , , , , never or living with a partner: In a typical week, how many times do you talk on the telephone with family, friends, or neighbors: 3 or more times per week How often do you get together with friends or relatives: 3 or more times per week How often do you attend anabaptism or worship services: never Do you belong to any clubs or organizations such as anabaptism groups unions, [employer] or athletic groups, or school groups: no Total score: 2 Score interpretation: A score of greater than or equal to 2 indicates the lowest level of social isolation. Little interest or pleasure in doing things: not at all Feeling down, depressed, or hopeless: not at all Feel stressed/tense/nervous/anxious/difficulty sleeping: not at all Do you think of yourself as: straight/heterosexual Gender Identity: female Meds Home Medications and Allergies Home Medications ?Medication ?Instructions ?Recorded ?Confirmed ?Type clonidine HCl 0.1 mg tablet 0.1 mg PO BID 06/17/24 06/17/24 History ergocalciferol (vitamin D2) 1,250 1,250 mcg PO MOFR@06/17/24 06/17/24 History mcg (50,000 unit) capsule gabapentin 800 mg tablet 800 mg PO QID 06/17/24 06/17/24 History insulin glargine 100 unit/mL (3 55 unit subcut .QHS 06/17/24 06/17/24 History mL) subcutaneous pen (Lantus Solostar U-100 Insulin) leflunomide 20 mg tablet 20 mg PO .QD 06/17/24 06/17/24 History levothyroxine 200 mcg tablet 200 mcg PO .QD 06/17/24 06/17/24 History metoprolol succinate 50 mg 50 mg PO .QD 06/17/24 06/17/24 History tablet,extended release 24 hr simvastatin 40 mg tablet 40 mg PO .QHS 06/17/24 06/17/24 History sulfasalazine 500 mg 0.5 g PO TID 06/17/24 06/17/24 History tablet,delayed release Allergies Allergy/AdvReac Type Severity Reaction Status Date / Time Penicillins AdvReac Intermediate Rash Verified 06/17/24 15:42 Exam Constitutional Vital Signs, click to edit/add: Last Vital Signs Temp 98.1 F 06/17/24 15:39 Pulse 84 06/17/24 17:05 Resp 16 06/17/24 17:05 BP 180/100 H 06/17/24 17:05 Pulse Ox 95 06/17/24 17:05 O2 Del Method Room Air 06/17/24 18:30 Documenting provider has reviewed patient's vital signs: yes Common normals: no apparent distress, average body habitus, oriented x3, no limitations, healthy appearing, alert and well nourished Chest Common normals: inspection of chest normal Respiratory Common normals: normal respiratory effort, no retractions and clear to auscultation bilaterally Cardio Common normals: regular rate, regular rhythm and no murmurs GI Common normals: Normal to inspection, nondistended, normoactive bowel sounds present, soft to palpation and non-tender Results Labs Labs: Short CBC 06/17/24 Range/Units 16:02 WBC 7.6 (4.0-11.0) 10^3/uL Hgb 12.3 (12.0-16.0) g/dL Hct 36.8 (36.0-48.0) % Plt Count 299 (150-450) 10^3/uL BMP 06/17/24 15:45 Sodium 134 L Potassium 4.0 Chloride 98 Carbon Dioxide 27.0 BUN 22.0 H Creatinine 0.99 Glucose 374 H Calcium 8.7 Liver Function 06/17/24 Range/Units 15:45 Total Bilirubin 0.4 (0.2-1.0) mg/dL AST 28 (15-37) U/L ALT 34 (14-59) U/L Alkaline Phosphatase 88 (46-116) U/L Albumin 4.0 (3.4-5.0) g/dL Assessment and Plan Assessment and Plan (1) Fall: (2) Back pain: (3) Hypertension: (4) Diabetes mellitus: Plan Admission findings: Fall resulting in right hip fracture-plan per orthopedics, possible surgery tomorrow Right hip pain secondary to right hip lfwexmqu-smvojtlguxsx-dayrjrth intervention planned per orthopedics Sgdnhs-ogqu-ugsfvtjlqz currently, will do vvqqaa-kgu-ghgup breathing treatments and incentive spirometer. Hypertension-continue with home medications L Hypothyroidism-continue with home medications, check TSH Insulin-dependent diabetes mellitus-continue with home insulin, holding longer acting if having surgery Rheumatoid arthritis-we will hold Arava for now Admission status: Hip fracture, surgical intervention likely tomorrow, medically necessary treatment will span 2 midnights. Inpatient status.
[2024-06-17 18:47] VITALS: BP 177/82; PULSE 92; TEMP 36.7; O2SAT 95
[2024-06-17 18:49] VITALS: BMI 26.3
[2024-06-17 18:51] LABS: Bilirubin Urine NEGATIVE (NEGATIVE); Blood Urine NEGATIVE (NEGATIVE); Clarity Urine CLEAR (CLEAR); Color Urine LT. YELLOW (YELLOW); Glucose Urine UA >=1000 mg/dL (NEGATIVE); Ketones Urine NEGATIVE (NEGATIVE); Leukocyte Esterase Urine NEGATIVE (NEGATIVE); Nitrite Urine NEGATIVE (NEGATIVE); Protein Urine NEGATIVE (NEG/TRACE); Urobilinogen Urine 0.2 EU/dL (0.2-1.0)
[2024-06-17 19:08] LABS: Magnesium 2.1 mg/dL (1.8-2.4); Thyroid Stimulating Hormone 0.066 uIU/mL (0.358-3.740)
[2024-06-17] MEDS: 0.9 % SODIUM CHLORIDE 1,000 ML 75 ML IV (19:17)
[2024-06-17 19:24] LABS: Bacteria Urine NONE SEEN #/HPF (NONE SEEN); Cast Seen? NONE SEEN #/LPF (NONE SEEN); Crystals Seen? None Seen #/HPF (None Seen); Mucus Urine NONE SEEN (NONE SEEN); RBC Urine 0-2 #/HPF (0-2); Squamous Epithelial Cell Urine RARE #/LPF (NONE/RARE); Urine Culture Indicated ALREADY ORDERED; WBC Urine 0-2 #/HPF (NONE SEEN)
[2024-06-17] MEDS: ACETAMINOPHEN 500 MG TABLET 1000 MG PO (19:24)
[2024-06-17] MEDS: HYDROMORPHONE HCL 0.5 MG/0.5 ML SYRINGE IV (19:55)
[2024-06-17] MEDS: METOPROLOL SUCCINATE 50 MG TAB.ER.24H PO (21:07)
[2024-06-17] MEDS: ATORVASTATIN CALCIUM 20 MG TABLET PO (21:07)
[2024-06-17] MEDS: CLONIDINE HCL 0.1 MG TABLET PO (21:07)
[2024-06-17] MEDS: GABAPENTIN 400 MG CAPSULE 800 MG PO (21:07)
[2024-06-17 21:08] LABS: Glucometer 343 mg/dL (74-106)
[2024-06-17] MEDS: ENOXAPARIN SODIUM 40 MG/0.4 ML SYRINGE SUBQ (21:08)
[2024-06-17] MEDS: INSULIN ASPART 300 UNIT/3 ML PEN SUBQ (21:08)
[2024-06-17 22:01] VITALS: PULSE 82; O2SAT 97
[2024-06-17] MEDS: IPRATROPIUM/ALBUTEROL SULFATE 3 ML AMPUL.NEB IH (22:01)
--- NOTE | 2024-06-17 22:11 | RESP.RT ---
Patient could only do x3. Patient in to much pain
[2024-06-17] MEDS: CYCLOBENZAPRINE HCL 10 MG TABLET PO (22:42)
[2024-06-17 23:58] VITALS: BP 158/77; PULSE 65; TEMP 36.8; O2SAT 95
[2024-06-18] VITALS (72 sets, daily range): BP systolic 134–217; BP diastolic 77–136; PULSE 72–91; TEMP 36.7–37.2; O2SAT 86–99
--- NOTE | 2024-06-18 | FL_ITS ---
[address] [address] Patient Name: ELSA CATALAN MRN: [id number] date: 1960 Sex: F Assigned Patient Location: [place] Current Patient Location: [place] Accession/Order Number: [id number] Exam Date: 06/18/2024 12:30 Report Date: 06/19/2024 09:11 At the request of: STU DAVALOS Procedure: FL fluoroscopy <1hr NON-READ EXAM: FL fluoroscopy <1hr NON-READ HISTORY: TECHNIQUE: FINDINGS: Please see Operative Report. Electronically authenticated by: RADIOLOGIST NO Date: 06/19/2024 09:11
[2024-06-18] MEDS: HYDROMORPHONE HCL 0.5 MG/0.5 ML SYRINGE IV ×2 (04:35→12:04)
[2024-06-18] MEDS: IPRATROPIUM/ALBUTEROL SULFATE 3 ML AMPUL.NEB IH ×3 (04:36→17:19)
[2024-06-18 06:07] LABS: Basophils Percent Auto 0.4 % (0.2-2.0); Eosinophils Absolute Auto 0.2 10^3/uL (0.0-0.7); Eosinophils Percent Auto 2.5 % (0.9-7.0); Hematocrit 35.7 % (36.0-48.0); Hemoglobin 11.9 g/dL (12.0-16.0); Immature Granulocytes Abs Auto 0.02 10^3/uL (0.00-0.03); Immature Granulocytes Pct Auto 0.2 % (0.0-0.5); Lymphocytes Absolute Auto 3.9 10^3/uL (1.2-3.8); Lymphocytes Percent Auto 45.9 % (20.5-60.0); Mean Corpuscular HGB Conc 33.3 g/dL (29.9-35.2); Mean Corpuscular Hemoglobin 29.7 pg (26.7-34.0); Mean Platelet Volume 9.4 fL (9.5-13.5); Monocytes Absolute Auto 0.8 10^3/uL (0.3-0.8); Monocytes Percent Auto 9.5 % (1.7-12.0); Neutrophils Absolute Auto 3.5 10^3/uL (1.4-6.5); Neutrophils Percent Auto 41.5 % (43.0-75.0); Platelet Count 259 10^3/uL (150-450); Red Blood Count 4.01 10^6/uL (4.20-5.40); Red Cell Distribution Width 13.7 % (11.0-15.0); White Blood Count 8.4 10^3/uL (4.0-11.0)
[2024-06-18 06:16] LABS: Anion Gap 13.9; BUN Creatinine Ratio 28.4; Carbon Dioxide 26.8 mmol/L (21.0-32.0); Chloride 103 mmol/L (98-107); Estimated GFR (African America >60 (>=60); Estimated GFR (Non-African Ame >60 (>=60); Glucose 208 mg/dL (74-106); Potassium 3.7 mmol/L (3.5-5.1); Sodium 140 mmol/L (136-145)
--- NOTE | 2024-06-18 06:49 | P.PN_ITS ---
Progress Note: Subjective Subjective Interval history: No complaints other than some mild muscle spasms that cyclobenzaprine did help overnight Exam Constitutional Vital Signs, click to edit/add: Last Vital Signs Temp 98.1 F 06/18/24 04:33 Pulse 74 06/18/24 04:36 Resp 16 06/18/24 04:36 BP 155/82 H 06/18/24 04:33 Pulse Ox 93 L 06/18/24 04:36 O2 Del Method Room Air 06/18/24 04:36 Documenting provider has reviewed patient's vital signs: yes Common normals: no apparent distress, average body habitus, oriented x3, no limitations, healthy appearing, alert and well nourished Chest Common normals: inspection of chest normal Respiratory Common normals: normal respiratory effort, no retractions and clear to auscultation bilaterally Cardio Common normals: regular rate, regular rhythm and no murmurs GI Common normals: Normal to inspection, nondistended, normoactive bowel sounds present, soft to palpation and non-tender Extremity Common normals: abnormal to inspection and limited ROM (Right hip) Progress Note: Objective Labs Labs: Short CBC 06/17/24 06/18/24 Range/Units 16:02 05:54 WBC 7.6 8.4 (4.0-11.0) 10^3/uL Hgb 12.3 11.9 L (12.0-16.0) g/dL Hct 36.8 35.7 L (36.0-48.0) % Plt Count 299 259 (150-450) 10^3/uL BMP 06/17/24 06/18/24 15:45 05:54 Sodium 134 L 140 Potassium 4.0 3.7 Chloride 98 103 Carbon Dioxide 27.0 26.8 BUN 22.0 H 23.0 H Creatinine 0.99 0.81 Glucose 374 H 208 H Calcium 8.7 8.0 L Liver Function 06/17/24 Range/Units 15:45 Total Bilirubin 0.4 (0.2-1.0) mg/dL AST 28 (15-37) U/L ALT 34 (14-59) U/L Alkaline Phosphatase 88 (46-116) U/L Albumin 4.0 (3.4-5.0) g/dL Urine 06/17/24 Range/Units 16:56 Urine Color Lt. yellow (YELLOW) Urine Clarity Clear (CLEAR) Urine pH 6.0 (5.0-9.0) Ur Specific [place] 1.010 (1.005-1.025) Urine Protein Negative (NEG/TRACE) mg/dL Urine Glucose (UA) >=1000 A (NEGATIVE) mg/dL Progress Note: A&P Assessment and Plan (1) Fall: (2) Back pain: (3) Hypertension: (4) Diabetes mellitus: Plan Admission findings: Fall resulting in right hip fracture-plan per orthopedics, possible surgery tomorrow Right hip pain secondary to right hip soupvltg-ldmufyfwrysa-kuydzflu intervention planned per orthopedics later today Uuzrpx-coyj-twvbbuknka currently, will do svkzwc-vof-jfruw breathing treatments and incentive spirometer. Hypertension-continue with home medications-improved Anemia-possibly acute blood loss anemia secondary to the hip fracture. Monitor daily. Hemoglobin down 2 g from baseline Hyponatremia-improved today Hypothyroidism-continue with home medications, TSH suppressed, may need adjustment as an outpatient Insulin-dependent diabetes mellitus-continue with home insulin, patient is had not been out of proper diet for last week sugar improved today Rheumatoid arthritis-we will hold Arava for now Admission status: Hip fracture, surgical intervention likely today, medically necessary treatment will span 2 midnights. Inpatient status. Looking at rehab Urinary Catheter Management Urinary Catheter Management Urethral: Cath placed during this visit: yes Urethral indwelling: No Insertion date: 06/17/24 Insertion time: 16:00
[2024-06-18] MEDS: METOPROLOL SUCCINATE 50 MG TAB.ER.24H PO (08:29)
[2024-06-18] MEDS: INSULIN ASPART 300 UNIT/3 ML PEN SUBQ ×3 (08:29→21:15)
[2024-06-18] MEDS: 0.9 % SODIUM CHLORIDE 1,000 ML 75 ML IV (08:30)
--- NOTE | 2024-06-18 09:05 | CM.NOTE ---
Important Message From Medicare discussed with pt, pt verbalizes understanding and signs paper. Original given to pt and copy placed in pt's chart.
--- NOTE | 2024-06-18 10:16 | SWNOTE1 ---
Pt is going to surgery today. SW to check therapy notes once they are able to eval patient.
[2024-06-18] MEDS: LACTATED RINGER'S SOLUTION 1,000 ML 50 ML IV (11:08)
[2024-06-18 11:12] LABS: Glucometer 104 mg/dL (74-106)
[2024-06-18] MEDS: SCOPOLAMINE 1 MG/3 DAYS TRANSDERM PATCH 1 PATCH TD (11:54)
--- NOTE | 2024-06-18 12:41 | PM.ORCN ---
History of Present Illness HPI Consult date: 06/17/24 Consult reason: fracture Chief complaint: FALL right hip fracture Narrative: Patient is a 64-year-old who tripped and fell yesterday with right hip pain and inability to bear weight. She denies having pain elsewhere. Presented to the emergency room where x-rays revealed a right hip basicervical fracture. Patient is being admitted for operative treatment of her injury. Review of Systems ROS Constitutional Denies: fever, chills, change in weight or fatigue Cardiovascular Denies: chest pain Respiratory Denies: shortness of breath Gastrointestinal Denies: abdominal pain Musculoskeletal Reports: extremity pain Neurological Denies: numbness in extremities PFSH [facility] Medical History Hypertension ?I10 - Essential (primary) hypertension (ICD-10) Rheumatoid arthritis ?M06.9 - Rheumatoid arthritis, unspecified (ICD-10) TMJ (dislocation of temporomandibular joint) ?S03.00XA - Dislocation of jaw, unspecified side, initial encounter (ICD-10) Fibromyalgia ?M79.7 - Fibromyalgia (ICD-10) Diabetes mellitus ?E11.9 - Type 2 diabetes mellitus without complications (ICD-10) Surgical History (Updated 06/17/24 @ 18:57 by Rose Motley LPN) Hx of cataract surgery ?Z98.49 - Cataract extraction status, unspecified eye (ICD-10) History of left elbow replacement ?Z96.622 - Presence of left artificial elbow joint (ICD-10) History of right elbow replacement ?Z96.621 - Presence of right artificial elbow joint (ICD-10) History of right knee joint replacement ?Z96.651 - Presence of right artificial knee joint (ICD-10) H/O: hysterectomy ?Z90.710 - Acquired absence of both cervix and uterus (ICD-10) H/O thyroidectomy ?E89.0 - Postprocedural hypothyroidism (ICD-10) Family History (Updated 06/17/24 @ 18:58 by Rose Motley LPN) Other Family history of cancer Social History (Updated 06/17/24 @ 18:59 by Rose Motley LPN) Within the past year, how often did you have a drink containing alcohol: monthly or less Within the past year, how many standard drinks containing alcohol did you have on a typical day: 1 or 2 Total score: 0 Score interpretation: A score less than 3 is consistent with normal alcohol consumption. Smoking status: Never smoker Second hand tobacco smoke exposure: No Non-prescribed substance use: denies use Highest level of school completed/degree received: high school graduate Are you now , , , , never or living with a partner: In a typical week, how many times do you talk on the telephone with family, friends, or neighbors: 3 or more times per week How often do you get together with friends or relatives: 3 or more times per week How often do you attend mormon or church services: never Do you belong to any clubs or organizations such as mormon groups unions, [employer] or athletic groups, or school groups: no Total score: 2 Score interpretation: A score of greater than or equal to 2 indicates the lowest level of social isolation. Little interest or pleasure in doing things: not at all Feeling down, depressed, or hopeless: not at all Feel stressed/tense/nervous/anxious/difficulty sleeping: not at all Do you think of yourself as: straight/heterosexual Gender Identity: female Meds Home Medications and Allergies Home Medications ?Medication ?Instructions ?Recorded ?Confirmed ?Type clonidine HCl 0.1 mg tablet 0.1 mg PO BID 06/17/24 06/17/24 History ergocalciferol (vitamin D2) 1,250 1,250 mcg PO MOFR@09 06/17/24 06/17/24 History mcg (50,000 unit) capsule gabapentin 800 mg tablet 800 mg PO QID 06/17/24 06/17/24 History insulin glargine 100 unit/mL (3 55 unit subcut .QHS 06/17/24 06/17/24 History mL) subcutaneous pen (Lantus Solostar U-100 Insulin) leflunomide 20 mg tablet 20 mg PO .QD 06/17/24 06/17/24 History levothyroxine 200 mcg tablet 200 mcg PO .QD 06/17/24 06/17/24 History metoprolol succinate 50 mg 50 mg PO .QD 06/17/24 06/17/24 History tablet,extended release 24 hr simvastatin 40 mg tablet 40 mg PO .QHS 06/17/24 06/17/24 History sulfasalazine 500 mg 0.5 g PO TID 06/17/24 06/17/24 History tablet,delayed release Allergies Allergy/AdvReac Type Severity Reaction Status Date / Time Penicillins AdvReac Intermediate Rash Verified 06/17/24 15:42 Exam Constitutional Vital Signs, click to edit/add: Last Vital Signs Temp 98.9 F 06/18/24 11:12 Pulse 79 06/18/24 11:31 Resp 18 06/18/24 11:31 BP 166/80 H 06/18/24 11:12 Pulse Ox 94 L 06/18/24 11:31 O2 Del Method Room Air 06/18/24 11:31 Results Labs Labs: Abnormal lab results 06/17/24 06/17/24 06/17/24 Range/Units 15:45 16:02 16:56 RBC 4.12 L (4.20-5.40) 10^6/uL Hgb (12.0-16.0) g/dL Hct (36.0-48.0) % MPV (9.5-13.5) fL Neut % (Auto) 29.4 L (43.0-75.0) % Lymph # (Auto) 4.4 H (1.2-3.8) 10^3/uL Abs Immat Gran (auto) 0.04 H (0.00-0.03) 10^3/uL Sodium 134 L (136-145) mmol/L BUN 22.0 H (7.0-18.0) mg/dL Est GFR (Non-Af Amer) 56 L (>=60) Glucose 374 H (74-106) mg/dL Calcium (8.5-10.1) mg/dL Total Protein 8.7 H (6.4-8.2) g/dL TSH 0.066 L (0.358-3.740) uIU/mL Urine Glucose (UA) >=1000 A (NEGATIVE) mg/dL Urine WBC 0-2 A (NONE SEEN) #/HPF POC Glucose (74-106) mg/dL 06/17/24 06/18/24 Range/Units 21:07 05:54 RBC 4.01 L (4.20-5.40) 10^6/uL Hgb 11.9 L (12.0-16.0) g/dL Hct 35.7 L (36.0-48.0) % MPV 9.4 L (9.5-13.5) fL Neut % (Auto) 41.5 L (43.0-75.0) % Lymph # (Auto) 3.9 H (1.2-3.8) 10^3/uL Abs Immat Gran (auto) (0.00-0.03) 10^3/uL Sodium (136-145) mmol/L BUN 23.0 H (7.0-18.0) mg/dL Est GFR (Non-Af Amer) (>=60) Glucose 208 H (74-106) mg/dL Calcium 8.0 L (8.5-10.1) mg/dL Total Protein (6.4-8.2) g/dL TSH (0.358-3.740) uIU/mL Urine Glucose (UA) (NEGATIVE) mg/dL Urine WBC (NONE SEEN) #/HPF POC Glucose 343 H (74-106) mg/dL H & H 06/17/24 06/18/24 Range/Units 16:02 05:54 Hgb 12.3 11.9 L (12.0-16.0) g/dL Hct 36.8 35.7 L (36.0-48.0) % Coagulation 06/17/24 Range/Units 17:01 INR 0.96 All other labs normal. Diagnostic results Hip x-ray: report reviewed and image reviewed (Right basicervical hip fracture without displacement) Assessment and Plan Assessment and Plan (1) Fall: Assessment and Plan: Right femoral neck fracture (2) Back pain: (3) Hypertension: (4) Diabetes mellitus: Plan I recommended a right hip intramedullary nailing to the patient. Have discussed the benefits of the procedure as well as risks. She understands the risks associated with this procedure including but not limited to risk of persistent postoperative pain, infection particularly given her elevated A1c, need for additional surgery as well as additional risks and the informed consent process. She understands and has elected to proceed.
[2024-06-18] MEDS: CEFAZOLIN SODIUM 2 GM/50 ML D5W PREMIX IV ×2 (12:44→21:05)
[2024-06-18] MEDS: LIDOCAINE HCL 1%-EPINEPHRINE 1:100,000 10 ML MDV INJ (13:32)
[2024-06-18] MEDS: BUPIVACAINE HCL 0.5% PF 50 MG/10 ML VIAL 20 ML INJ (13:32)
--- NOTE | 2024-06-18 14:04 | PM.ORPRC ---
Procedure Note Date of procedure: 06/18/24 Pre-op diagnosis: Right hip basicervical fracture Post-op diagnosis: same as pre-op Procedure: Operation: Right hip intramedullary nail Detailed Description of Procedure: After informed consent was obtained the patient was brought to the operating room where general anesthetic was administered. Preoperatively regional block was placed. Patient was placed on the fracture table and using traction and manipulation reduction was performed and confirmed on multiple fluoroscopy views. The right hip and leg were prepped and draped in the usual sterile fashion. A 5 cm incision was made proximal to the greater trochanter in line with the femur. Hemostasis achieved with Bovie. Fascia was incised in line with the incision. The guidepin for the Synthes TFNa was placed on the greater trochanter and the appropriate position on the AP and lateral planes and then advanced and then overreamed in the intertrochanteric region. The Synthes short nail was sized to 9 mm in diameter and the nail was then placed. Through a more distal incision the guidepin was placed in the appropriate position in the femoral head. This was measured, overreamed and then the 85 millimeter spiral blade was placed locked into position and then a half turn counterclockwise was placed to allow for compression. The fracture was compressed. Through the more distal incision the locking screw was placed in the standard fashion. Final x-rays in multiple views revealed a reduced hip fracture with appropriate implant placement and lengths. Wounds were irrigated. Fascia was repaired with nonabsorbable suture. Skin was closed in standard fashion in layers. Sterile dressing was placed. Patient was awakened and brought to the recovery room in stable condition. There were no intraoperative or immediate postoperative complications. Anesthesia: General-LMA Surgeon: Dalton Simental Estimated blood loss (mL): 50 Pathology: none sent Condition: stable Disposition: PACU
--- NOTE | 2024-06-18 14:42 | PC.NURSE ---
1436- Patient denies any c/o of uncontrolled pain.
[2024-06-18] MEDS: LABETALOL HCL 100 MG/20 ML MDV IVP ×3 (14:50→15:08)
--- NOTE | 2024-06-18 15:10 | PC.NURSE ---
1436- Dr. Sheehan aware of BP. New order received.
--- NOTE | 2024-06-18 15:15 | PC.NURSE ---
1450- Patient medicated with Labetalol as ordered for BP.
--- NOTE | 2024-06-18 15:18 | PC.NURSE ---
1503- Remedicated with Labetalol as ordered.
--- NOTE | 2024-06-18 15:23 | PC.NURSE ---
1508- Remedicated with Labetalol for BP as ordered per Dr. Sheehan.
[2024-06-18 16:00] LABS: Glucometer 158 mg/dL (74-106)
[2024-06-18] MEDS: GABAPENTIN 400 MG CAPSULE 800 MG PO ×2 (18:30→21:05)
[2024-06-18] MEDS: OXYCODONE HCL/ACETAMINOPHEN 5MG/325MG 1 TAB PO (18:31)
[2024-06-18] MEDS: CYCLOBENZAPRINE HCL 10 MG TABLET PO (21:05)
[2024-06-18] MEDS: CLONIDINE HCL 0.1 MG TABLET PO (21:05)
[2024-06-18] MEDS: ATORVASTATIN CALCIUM 20 MG TABLET PO (21:05)
[2024-06-18 21:14] LABS: Glucometer 209 mg/dL (74-106)
[2024-06-18] MEDS: INSULIN DETEMIR 300 UNIT/3 ML INSULN.PEN 55 UNIT SUBQ (21:16)
[2024-06-19] VITALS (13 sets, daily range): BP systolic 109–159; BP diastolic 72–83; PULSE 85–95; TEMP 36.6–37.4; O2SAT 79–97
[2024-06-19] MEDS: OXYCODONE HCL/ACETAMINOPHEN 5MG/325MG 1 TAB PO ×4 (00:03→20:28)
[2024-06-19] MEDS: IPRATROPIUM/ALBUTEROL SULFATE 3 ML AMPUL.NEB IH ×3 (05:20→22:44)
[2024-06-19] MEDS: LEVOTHYROXINE SODIUM 100 MCG TABLET 200 MCG PO (05:30)
[2024-06-19] MEDS: GABAPENTIN 400 MG CAPSULE 800 MG PO ×4 (05:30→21:11)
[2024-06-19] MEDS: CEFAZOLIN SODIUM 2 GM/50 ML D5W PREMIX IV ×2 (05:30→12:11)
[2024-06-19 06:27] LABS: Basophils Absolute Auto 0.1 10^3/uL (0.0-0.1); Basophils Percent Auto 0.5 % (0.2-2.0); Eosinophils Absolute Auto 0.4 10^3/uL (0.0-0.7); Eosinophils Percent Auto 4.3 % (0.9-7.0); Hematocrit 34.6 % (36.0-48.0); Hemoglobin 11.3 g/dL (12.0-16.0); Immature Granulocytes Abs Auto 0.03 10^3/uL (0.00-0.03); Immature Granulocytes Pct Auto 0.3 % (0.0-0.5); Lymphocytes Absolute Auto 2.8 10^3/uL (1.2-3.8); Lymphocytes Percent Auto 30.2 % (20.5-60.0); Mean Corpuscular HGB Conc 32.7 g/dL (29.9-35.2); Mean Corpuscular Hemoglobin 29.4 pg (26.7-34.0); Mean Corpuscular Volume 90.1 fL (81.0-99.0); Mean Platelet Volume 9.6 fL (9.5-13.5); Monocytes Absolute Auto 1.1 10^3/uL (0.3-0.8); Monocytes Percent Auto 11.3 % (1.7-12.0); Neutrophils Percent Auto 53.4 % (43.0-75.0); Platelet Count 241 10^3/uL (150-450); Red Blood Count 3.84 10^6/uL (4.20-5.40); Red Cell Distribution Width 14.3 % (11.0-15.0); White Blood Count 9.4 10^3/uL (4.0-11.0)
--- NOTE | 2024-06-19 06:29 | PM.ORPN ---
Progress Note: A&P Assessment and Plan (1) Fall: (2) Back pain: (3) Hypertension: (4) Diabetes mellitus: Plan POD #1 R Hip IM Nail - ABLA-Hgb 12.3 on admission that trended down to 11.3 this AM, vitals stable overnight - PT/OT - WBAT - Pain control - Follow up in [address] Simental Plan discussed with my Supervising Physician, Dr Simental. Subjective Subjective Principal diagnosis: R Femur Fracture Interval history: Pt is POD #1 R Hip IM Nail states that she did well overnight. Pain is controlled she was sleeping on my arrival, but arouses easily to voice. Exam Narrative Exam Narrative: On exam patient is lying in the bed sleeping, in no distress, arouses easily to voice. On inspection dressing is clean/dry/intact no erythema, no warmth to touch. Thigh is soft and compressible. 5/5 DF/PF strength. 2+ DP pulses palpated bilaterally. Sensation intact with light touch distally. Constitutional Vital Signs, click to edit/add: Last Vital Signs Temp 98.4 F 06/19/24 05:28 Pulse 85 06/19/24 05:28 Resp 20 06/19/24 05:28 BP 134/77 06/19/24 05:28 Pulse Ox 97 06/19/24 05:28 O2 Del Method Room Air 06/19/24 05:27 O2 Flow Rate 2 06/18/24 16:00 Urinary Catheter Management Urinary Catheter Management Urethral: Cath placed during this visit: yes Urethral indwelling: No Insertion date: 06/17/24 Insertion time: 16:00
[2024-06-19 06:51] LABS: Anion Gap 11.7; BUN Creatinine Ratio 18.5; Calcium 7.7 mg/dL (8.5-10.1); Chloride 99 mmol/L (98-107); Estimated GFR (African America >60 (>=60); Estimated GFR (Non-African Ame >60 (>=60); Glucose 149 mg/dL (74-106); Potassium 3.7 mmol/L (3.5-5.1); Sodium 135 mmol/L (136-145)
--- NOTE | 2024-06-19 07:42 | P.DS_ITS ---
DS: Providers Provider Date of admission: 06/17/24 18:17 Primary care physician: TAWANDA COOK Consults: 06/17/24 18:37 Consult to Pharmacy Routine Consulting Provider: Reason for consultation: Please [place] me when Med Rec is Updated Has provider been notified: No Occupational Therapy Eval and Treat Routine Reason for consultation: Only if needed for Rehab Has provider been notified: No Physical Therapy Eval and Treat Routine Reason for consultation: Eval and Treat Has provider been notified: No DS: Diagnosis Discharge Diagnosis (1) Fall: (2) Back pain: (3) Hypertension: (4) Diabetes mellitus: (5) Basicervical fracture of neck of right femur: Plan Admission findings: Fall resulting in right hip fracture-plan per orthopedics, possible surgery tomorrow Right hip pain secondary to right hip qsrqanwm-scdmwclrgtgh-niqyekby interventio n completing-plan per Ortho Ptkthc-wpby-medlyzhwik currently Hypertension-stable at the time of discharge L Anemia-possibly acute blood loss anemia secondary to the hip fracture. Stable at the time of discharge Hyponatremia-stable at discharge Hypothyroidism-continue with home medications, TSH suppressed, follow as outpatient Insulin-dependent diabetes mellitus-continue with home insulin, improving at the time of discharge Postoperative hypoxia-improving at the time of discharge off of supplemental oxygen Rheumatoid arthritis-we will hold Alannah for now Admission status: Hip fracture, surgical intervention likely today, medically necessary treatment will span 2 midnights. Inpatient status. Looking at rehab DS: Summary Hospital Course Hospital Course: Patient status post fall, not syncope just tripped, resulting in right hip fracture. Patient was taken to the operating room the following day. No complications yesterday. Will discuss with Ortho later today, possible discharge if patient is allowed to be weightbearing. Patient would prefer to be discharged home. She did have other issues and but her asthma was well- controlled her diabetes and her is improving and her hyponatremia is improving. She did have an episode of hypoxia with O2 sat in the mid 80s postoperatively. Placed on supplemental oxygen. She has since been weaned off of that. So postop hypoxia resolved. Medically stable for discharge. Follow-up with your PCP within the next week. Medications see list. Time Spent with Patient Time attestation: Total time spent providing and/or coordinating discharge services: Exam Constitutional Vital Signs, click to edit/add: Last Vital Signs Temp 98.4 F 06/19/24 05:28 Pulse 85 06/19/24 05:28 Resp 20 06/19/24 05:28 BP 134/77 06/19/24 05:28 Pulse Ox 97 06/19/24 05:28 O2 Del Method Room Air 06/19/24 05:27 O2 Flow Rate 2 06/18/24 16:00 Documenting provider has reviewed patient's vital signs: yes Common normals: no apparent distress, average body habitus, oriented x3, no limitations, healthy appearing, alert and well nourished Chest Common normals: inspection of chest normal Respiratory Common normals: normal respiratory effort, no retractions, no use of accessory muscles and clear to auscultation bilaterally Cardio Common normals: regular rate, regular rhythm and no murmurs GI Common normals: Normal to inspection, nondistended, normoactive bowel sounds present, soft to palpation and non-tender Extremity Common normals: abnormal to inspection and limited ROM (Right hip) DS: Data Data Completed and Pending Labs on day of discharge: Labs from last 24 hours 06/19/24 06/18/24 06/18/24 06:06 21:14 15:59 WBC 9.4 RBC 3.84 L Hgb 11.3 L Hct 34.6 L MCV 90.1 MCH 29.4 MCHC 32.7 RDW 14.3 Plt Count 241 MPV 9.6 Neut % (Auto) 53.4 Lymph % (Auto) 30.2 [place] % (Auto) 11.3 Eos % (Auto) 4.3 Baso % (Auto) 0.5 Neut # (Auto) 5.0 Lymph # (Auto) 2.8 [place] # (Auto) 1.1 H Eos # (Auto) 0.4 Baso # (Auto) 0.1 Abs Immat Gran (auto) 0.03 Imm/Tot Granulo (auto) 0.3 Sodium 135 L Potassium 3.7 Chloride 99 Carbon Dioxide 28.0 Anion Gap 11.7 BUN 17.0 Creatinine 0.92 Est GFR ( Amer) >60 Est GFR (Non-Af Amer) >60 BUN/Creatinine Ratio 18.5 Glucose 149 H Calcium 7.7 L POC Glucose 209 H 158 H 06/18/24 11:11 WBC RBC Hgb Hct MCV MCH MCHC RDW Plt Count MPV Neut % (Auto) Lymph % (Auto) [place] % (Auto) Eos % (Auto) Baso % (Auto) Neut # (Auto) Lymph # (Auto) [place] # (Auto) Eos # (Auto) Baso # (Auto) Abs Immat Gran (auto) Imm/Tot Granulo (auto) Sodium Potassium Chloride Carbon Dioxide Anion Gap BUN Creatinine Est GFR ( Amer) Est GFR (Non-Af Amer) BUN/Creatinine Ratio Glucose Calcium POC Glucose 104 Discharge Plan Discharge Disposition: Home, Self-Care Condition: Good Discharge Medications: Continued clonidine HCl 0.1 mg tablet 0.1 mg PO BID metoprolol succinate 50 mg tablet extended release 24 hr 50 mg PO .QD sulfasalazine 500 mg tablet,delayed release (DR/EC) 0.5 g PO TID leflunomide 20 mg tablet 20 mg PO .QD simvastatin 40 mg tablet 40 mg PO .QHS gabapentin 800 mg tablet 800 mg PO QID levothyroxine 200 mcg tablet 200 mcg PO .QD ergocalciferol (vitamin D2) 1,250 mcg (50,000 unit) capsule 1,250 mcg PO MOFR@09 insulin glargine [Lantus Solostar U-100 Insulin] 100 unit/mL (3 mL) insulin pen 55 unit SUBCUT .QHS Print Language: Wolof Forms: Portal Instructions Follow Up Appointments: Follow-up with Dr. Simental in 3 weeks at the [facility], call [phone] to make an appointment.
--- NOTE | 2024-06-19 08:07 | CM.NOTE ---
Discussed with pt discharge planning, PT does recommend front wheeled walker for home. Pt has 4 wheeled walker at home but would like to get a front wheeled walker for home per PT recommendations. Pt does not have a preference for [employer] company. Discussed with Dr. Bales about outpatient PT, no order at this time. Dr. Bales would like outpatient therapy order to be determined by Dr. Simental. Updated DONALD Flores for discharge planning.
[2024-06-19] MEDS: METOPROLOL SUCCINATE 50 MG TAB.ER.24H PO (08:45)
[2024-06-19] MEDS: CLONIDINE HCL 0.1 MG TABLET PO ×2 (08:45→20:28)
--- NOTE | 2024-06-19 08:53 | CM.NOTE ---
Message left with MAKAYLA Carey for pain medication script and PT script for discharge.
--- NOTE | 2024-06-19 09:21 | SWNOTE1 ---
Pt will be discharged today and will need wheeled walker. Case management spoke with her and she has no preference on DME company. NATHALIA called [facility] and they do not take pt's insurance. NATHALIA called [facility] and they were uncertain if they take pt's insurance, but will review if sent. NATHALIA looked over [facility] list and they do take pt's insurance. SW sent to [facility]. Pt is also going to do outpt therapy.
--- NOTE | 2024-06-19 10:42 | PT.DAILY ---
Physical Therapy Daily Note PT Daily Note/Assess Start: 06/18/24 10:31 Freq: Status: Active Protocol: Document 06/19/24 09:50 RENETTA (Rec: 06/19/24 10:41 [id number]) Physical Therapy Daily Note/Assessment Time In/Time Out Time In 09:50 Time Out 10:15 Pain In Pain Level 9 Pain Out Pain Level 10 Subjective Subjective Patient just up in chair with OT. Reports pain in not controlled. Very high. Had pain meds 20-30 minutes prior to PT coming into room. Patient reports wants to push through. Therapeutic Activity Treatment Bed Mobility Ability Maximum Assist Chair Transfer Ability Moderate Assist,Maximum Assist ,1 Person Assist,2 Person Assist Therapeutic Activity Comments Sit to stand from chair, unable to complete to full standing on 1st attempt. With verbal cues and mod assist able to come into standing on 2nd attempt. Static stand 30 seconds with very poor tolerance to WB on R LE. Had nursing enter room to be present for ambulation for safety. Patient required min assist to advanced R LE, even with verbal cues to push through arms to off load weight on R LE required max assist with step and then to safely lower back into chair. Education that even though she is WBAT if unable to tolerate weight okay to complete step with PWB or NWB technique at this time. Patient verbalized understanding. 2nd attempt with gait; max assist x2. Patient is weak in UE's as well and unable to safely ambulate due to high pain. Max assist x 2 to pivot safely over to bed at this time. Max assist for sit to supine transfer and then to re- position in bed. Summary Daily Note Summary Patient has very poor tolerance to WB on R LE due to high pain levels. Increased level in assistance with all transfers and bed mobility today. Unable to safely ambulate this AM requiring max assist of 2 to transfer back to bed due to high pain levels along with general overall weakness. Discussed with patient that brief SNF stay would be more beneficial due to high pain, weakness, and the need for high level of assistance. Patient agreed at this time. Patient supine in bed with rails up, call light in reach and all needs met.
--- NOTE | 2024-06-19 10:43 | SWNOTE1 ---
SW received a call from [facility] and they are not in network for walker. SW also received call from physical therapy and pt did not do well and SNF is recommended. SW spoke with pt. She was in agreement that therapy did not go well. She is open to the idea of going to SNF for a short term rehab stay. SW did let her know that if she does better with therapy this afternoon and tomorrow, it is possible she may be able to go home. SW explained that with her insurance she is a precert to go skilled at nursing facility and sometimes precerts take 2-3 days. Therefore if pt does not do better with therapy plan B will be SNF and precert will be started. Pt is in agreement and voiced understanding. SW reviewed list from [email or web address] star ratings. Pt would like the [facility] as first choice and [facility] as second. SW updated Dr. Bales and nursing. Referral sent to [facility]. Referral included face sheet, ED note, H&P, provider notes, ortho notes case management report, nursing notes, diagnostic imaging, med list, and PT/OT notes.
[2024-06-19 11:38] LABS: Glucometer 139 mg/dL (74-106)
[2024-06-19] MEDS: CYCLOBENZAPRINE HCL 10 MG TABLET PO ×2 (11:43→21:09)
--- NOTE | 2024-06-19 11:49 | SWNOTE1 ---
[facility] is able to accept. [facility] started precert.
--- NOTE | 2024-06-19 14:13 | PT.DAILY ---
Physical Therapy Daily Note PT Daily Note/Assess Start: 06/18/24 10:31 Freq: Status: Active Protocol: Document 06/19/24 13:58 LACI (Rec: 06/19/24 14:13 [id number] Physical Therapy Daily Note/Assessment Time In/Time Out Time In 13:08 Time Out 13:40 Pain In Pain N/A Pain Out Pain N/A Subjective Subjective Pt is supine upon arrival, asleep but easily aroused. Pt agrees to PT this afternoon. Reports having pain meds about 30 min ago. Therapeutic Exercise Time Therapeutic Exercise Minutes (minutes) 5 Therapeutic Exercise Units 0 Therapeutic Exercise Treatment Therapeutic Exercise Treatment Supine AP, QS, GS 10x active. AA heel slides 10x to improve ROM/mobility prior to transfer . Therapeutic Activity Time Therapeutic Activity Minutes (minutes) 20 Therapeutic Activity Units 2 Therapeutic Activity Treatment Bed Mobility Ability Maximum Assist Therapeutic Activity Comments Supine>sit MaxA to guide R LE and to advance upper body to sit EOB. Pt then needs assistance to scoot her hips forward to EOB. Once sitting EOB with feet on ground pt is able to maintain static sitting balance without outside assistance. Pt reports increased pain with supine> sit transfer. Guarding R LE. Pt sit>stand to RW Allan. Static standing at RW increases pain to 8/10. Pt unable to lift foot for march or straight leg kick. Pt attempts to take side steps but is unable to lift foot. Pt pivots on foot/slides foot to side in order to move towards HOB. This takes increased time to complete. Sits EOB unsupported again. Noticed pt had spilled a drink on her gown and blankets. Gown is changed at this time along with bed sheets/blankets. Pt requires set up needed for this. Sit>supine MaxA for lower body then to adjust upper body in bed. SCD's placed. Pt remains in supine upon completion with call light within reach and needs met. Total Physical Therapy Time Total Therapy Minutes 25 Total Physical Therapy Units 2 Summary Daily Note Summary Fair tolerance to session. Cont to have high pain with standing/weight bearing. Unable to lift R LE against gravity on her own. Pt declines wanting to get into chair as this did not go well this morning. Pt would benefit from SNF to regain strength to return to PLOF.
[2024-06-19 16:31] LABS: Glucometer 148 mg/dL (74-106)
[2024-06-19] MEDS: HYDROMORPHONE HCL 0.5 MG/0.5 ML SYRINGE IV (16:41)
[2024-06-19] MEDS: ENOXAPARIN SODIUM 40 MG/0.4 ML SYRINGE SUBQ (20:27)
[2024-06-19] MEDS: ATORVASTATIN CALCIUM 20 MG TABLET PO (21:11)
[2024-06-19 21:15] LABS: Glucometer 290 mg/dL (74-106)
[2024-06-19] MEDS: INSULIN DETEMIR 300 UNIT/3 ML INSULN.PEN 55 UNIT SUBQ (21:16)
[2024-06-19] MEDS: INSULIN ASPART 300 UNIT/3 ML PEN SUBQ (21:16)
[2024-06-20] VITALS (7 sets, daily range): BP systolic 125–161; BP diastolic 70–77; PULSE 95–105; TEMP 36.6–37.4; O2SAT 91–98
[2024-06-20] MEDS: IPRATROPIUM/ALBUTEROL SULFATE 3 ML AMPUL.NEB IH ×2 (05:15→11:20)
[2024-06-20] MEDS: GABAPENTIN 400 MG CAPSULE 800 MG PO ×2 (05:34→12:11)
[2024-06-20] MEDS: LEVOTHYROXINE SODIUM 100 MCG TABLET 200 MCG PO (05:35)
[2024-06-20] MEDS: OXYCODONE HCL/ACETAMINOPHEN 5MG/325MG 1 TAB PO ×2 (05:59→10:43)
[2024-06-20] MEDS: CYCLOBENZAPRINE HCL 10 MG TABLET PO (05:59)
[2024-06-20 06:18] LABS: Basophils Absolute Auto 0.1 10^3/uL (0.0-0.1); Basophils Percent Auto 0.6 % (0.2-2.0); Eosinophils Absolute Auto 0.2 10^3/uL (0.0-0.7); Eosinophils Percent Auto 1.4 % (0.9-7.0); Hematocrit 33.6 % (36.0-48.0); Immature Granulocytes Abs Auto 0.05 10^3/uL (0.00-0.03); Immature Granulocytes Pct Auto 0.4 % (0.0-0.5); Lymphocytes Percent Auto 24.5 % (20.5-60.0); Mean Corpuscular HGB Conc 32.7 g/dL (29.9-35.2); Mean Corpuscular Hemoglobin 29.6 pg (26.7-34.0); Mean Corpuscular Volume 90.6 fL (81.0-99.0); Mean Platelet Volume 9.6 fL (9.5-13.5); Monocytes Absolute Auto 1.4 10^3/uL (0.3-0.8); Monocytes Percent Auto 11.3 % (1.7-12.0); Neutrophils Absolute Auto 7.6 10^3/uL (1.4-6.5); Neutrophils Percent Auto 61.8 % (43.0-75.0); Platelet Count 225 10^3/uL (150-450); Red Blood Count 3.71 10^6/uL (4.20-5.40); Red Cell Distribution Width 14.6 % (11.0-15.0); White Blood Count 12.3 10^3/uL (4.0-11.0)
[2024-06-20 06:33] LABS: Anion Gap 11.8; BUN Creatinine Ratio 19.8; Calcium 7.9 mg/dL (8.5-10.1); Carbon Dioxide 26.3 mmol/L (21.0-32.0); Chloride 96 mmol/L (98-107); Estimated GFR (African America >60 (>=60); Estimated GFR (Non-African Ame >60 (>=60); Glucose 72 mg/dL (74-106); Potassium 3.1 mmol/L (3.5-5.1); Sodium 131 mmol/L (136-145)
--- NOTE | 2024-06-20 06:49 | P.PN_ITS ---
Progress Note: Subjective Subjective Interval history: No complaints other than some mild muscle spasms that cyclobenzaprine did help overnight Exam Constitutional Vital Signs, click to edit/add: Last Vital Signs Temp 98 F 06/20/24 00:00 Pulse 97 H 06/20/24 05:15 Resp 16 06/20/24 05:15 BP 125/74 06/20/24 00:00 Pulse Ox 96 06/20/24 05:15 O2 Del Method Nasal Cannula 06/20/24 05:15 O2 Flow Rate 2 06/20/24 05:15 Progress Note: Objective Labs Labs: Short CBC 06/20/24 Range/Units 05:57 WBC 12.3 H (4.0-11.0) 10^3/uL Hgb 11.0 L (12.0-16.0) g/dL Hct 33.6 L (36.0-48.0) % Plt Count 225 (150-450) 10^3/uL BMP 06/19/24 06/20/24 06:06 05:57 Sodium 135 L 131 L Potassium 3.7 3.1 L Chloride 99 96 L Carbon Dioxide 28.0 26.3 BUN 17.0 16.0 Creatinine 0.92 0.81 Glucose 149 H 72 L Calcium 7.7 L 7.9 L Progress Note: A&P Assessment and Plan (1) Fall: (2) Back pain: (3) Hypertension: (4) Diabetes mellitus: (5) Basicervical fracture of neck of right femur: Plan Admission findings: Fall resulting in right hip fracture-plan per orthopedics, possible surgery tomorrow Right hip pain secondary to right hip yjtelynu-nvpnsacuitez-kyeqmgjz intervention completing-plan per Ortho Ahwefj-jxee-cmxtywpzkl currently Hypertension-stable at the time of discharge Anemia-possibly acute blood loss anemia secondary to the hip fracture. Stable at the time of discharge Hyponatremia-stable at discharge Hypokalemia Acute UTI due to Beta hemolytic strep - Hypothyroidism-continue with home medications, TSH suppressed, follow as outpatient Insulin-dependent diabetes mellitus-continue with home insulin, improving at the time of discharge Postoperative hypoxia - recurrent requiring supplemenmtal oxygenation - 2 days post op - Rheumatoid arthritis-we will hold Arava for now Admission status: Hip fracture, surgical intervention likely today, medically necessary treatment will span 2 midnights. Inpatient status. Looking at rehab Urinary Catheter Management Urinary Catheter Management Urethral: Cath placed during this visit: yes Urethral indwelling: No Insertion date: 06/17/24 Insertion time: 16:00
--- NOTE | 2024-06-20 07:14 | P.PN_ITS ---
Progress Note: Subjective Subjective Interval history: Please disregard previous note, for today, signed by accident No complaint currently, overnight team had increasing cough and some shortness of breath, acute hypoxia with O2 saturation of 79% placed on supplemental oxygen with success, improved after breathing treatment. She feels like a flareup of her asthma. No heartburn symptoms to be consistent with reflux and aspiration. Therapy did not go well yesterday, patient not safe for discharge to home y esterday, will see how therapy goes today may need rehab. Exam Constitutional Vital Signs, click to edit/add: Last Vital Signs Temp 98 F 06/20/24 00:00 Pulse 97 H 06/20/24 05:15 Resp 16 06/20/24 05:15 BP 125/74 06/20/24 00:00 Pulse Ox 96 06/20/24 05:15 O2 Del Method Nasal Cannula 06/20/24 05:15 O2 Flow Rate 2 06/20/24 05:15 Documenting provider has reviewed patient's vital signs: yes Common normals: no apparent distress Chest Common normals: inspection of chest normal and palpation of chest normal Respiratory Common normals: normal respiratory effort, no retractions and clear to auscultation bilaterally (Somewhat diminished breath sounds due to poor inspiration) Cardio Common normals: regular rate, regular rhythm and no murmurs GI Common normals: Normal to inspection, nondistended, normoactive bowel sounds present, soft to palpation and non-tender Progress Note: Objective Labs Labs: Short CBC 06/20/24 Range/Units 05:57 WBC 12.3 H (4.0-11.0) 10^3/uL Hgb 11.0 L (12.0-16.0) g/dL Hct 33.6 L (36.0-48.0) % Plt Count 225 (150-450) 10^3/uL BMP 06/20/24 05:57 Sodium 131 L Potassium 3.1 L Chloride 96 L Carbon Dioxide 26.3 BUN 16.0 Creatinine 0.81 Glucose 72 L Calcium 7.9 L Progress Note: A&P Assessment and Plan (1) Fall: (2) Back pain: (3) Hypertension: (4) Diabetes mellitus: (5) Basicervical fracture of neck of right femur: Plan Admission findings: Fall resulting in right hip fracture-plan per orthopedics, surgery completed 06/18 Right hip pain secondary to right hip lbkjaadu-bkwhljdvataw-uwxjtfli intervention completing-plan per Ortho Asthma-acute exacerbation overnight time, improved so far this morning, wean supplemental oxygen, check chest x-ray Hypertension-currently stable Anemia-possibly acute blood loss anemia secondary to the hip fracture. Down 3 g total. Continue to monitor as an outpatient Hyponatremia-Down somewhat today, continue to monitor Hypokalemia-supplement Acute UTI with mild leukocytosis due to Beta hemolytic strep -add cefdinir Hypothyroidism-continue with home medications, TSH suppressed, follow as outpatient Insulin-dependent diabetes mellitus-continue long-acting insulin, will increase sliding scale insulin sugars are still over 200 at times Postoperative hypoxia with leukocytosis- recurrent again on 06/20 requiring supplemental oxygenation at 2 days post op - check chest x-ray, encourage patient to use her incentive spirometer, aerosol treatments already ordered, will be on cefdinir for acute UTI Rheumatoid arthritis-we will hold Arava for now Admission status: Hip fracture, surgical intervention completed, medically necessary treatment will span 2 midnights. Inpatient status. Home with PT versus rehab process ongoing Urinary Catheter Management Urinary Catheter Management Urethral: Cath placed during this visit: yes Urethral indwelling: No Insertion date: 06/17/24 Insertion time: 16:00
[2024-06-20 07:37] LABS: Glucometer 107 mg/dL (74-106)
--- NOTE | 2024-06-20 08:00 | XR_ITS ---
The [address] [address] Patient Name: ELSA CATALAN MRN: [id number] date: 1960 Sex: F Assigned Patient Location: [place] Current Patient Location: [place] Accession/Order Number: [id number] Exam Date: 06/20/2024 07:55 Report Date: 06/20/2024 08:12 At the request of: PRETTY FERMIN Procedure: XR chest 1V EXAM: XR chest 1V HISTORY: hypoxia post op COMPARISON: 06/17/2024 TECHNIQUE: AP portable FINDINGS: LUNGS: No significant pulmonary parenchymal abnormalities. VASCULATURE: No increased pulmonary vasculature. PLEURA: No pneumothorax, effusion, or pleural thickening. CARDIAC: No cardiomegaly or cardiac silhouette abnormality. MEDIASTINUM: No visible mass or adenopathy. BONES: No fracture or visible bone lesion. OTHER: Negative. XR/XR chest 1V IMPRESSION: No acute cardiopulmonary process Electronically authenticated by: LATASHA GERARDO Date: 06/20/2024 08:12
[2024-06-20] MEDS: POTASSIUM CHLORIDE 10 MEQ ER TABLET 20 MEQ PO (08:39)
[2024-06-20] MEDS: METOPROLOL SUCCINATE 50 MG TAB.ER.24H PO (08:39)
[2024-06-20] MEDS: CLONIDINE HCL 0.1 MG TABLET PO (08:39)
[2024-06-20] MEDS: CEFDINIR 300 MG CAPSULE 600 MG PO (08:39)
--- NOTE | 2024-06-20 09:00 | CM.NOTE ---
Discharge plan discussed with pt, pt plan is still to go skilled at discharge. Pt improved with PT today but she still feels very weak with transfer. Pt feels she would benefit from skilled therapy. Pt will discharge to [facility] skilled.
--- NOTE | 2024-06-20 09:43 | PT.DAILY ---
Physical Therapy Daily Note PT Daily Note/Assess Start: 06/18/24 10:31 Freq: Status: Active Protocol: Document 06/20/24 09:00 RENETTA (Rec: 06/20/24 09:43 RENETTA Desktop) Physical Therapy Daily Note/Assessment Time In/Time Out Time In 09:00 Time Out 09:30 Pain In Pain Level 8 Pain Out Pain Level 9 Subjective Subjective Patient up in chair with OT prior to PT RX. Patient reports is going better but pain is still high at 8-9/10 with movement. Therapeutic Exercise Time Therapeutic Exercise Minutes (minutes) 10 Therapeutic Exercise Units 1 Therapeutic Exercise Treatment Therapeutic Exercise Treatment Completed seated HR/TR 20x, Seated heel-slide, AAROM with LAQ, QS 10x each, and chair push up 3x Therapeutic Activity Time Therapeutic Activity Minutes (minutes) 15 Therapeutic Activity Units 1 Therapeutic Activity Treatment Chair Transfer Ability Minimum Assist,Moderate Assist Therapeutic Activity Comments Sit to stand 3x with min to mod assist each time. Verbal cues to keep R LE fwd, and use L LE and arms to push up limiting WB though R LE for pain control. Static stand with each stand 2-3 minutes with focus on upright posture. Patient able to slide R LE fwd/retro but unable to pick it up to advance. Poor tolerance to weight shift to R side, unable to tolerate WB on R. Total Physical Therapy Time Total Therapy Minutes 25 Total Physical Therapy Units 2 Summary Daily Note Summary Patient does show improved ability with sit to stand transfer from chair, alessandro. using more of a NWB approach. Patient is unable to advance R LE fwd or tolerate weight through R LE at this time limiting gait. Continue to recommend SNF to build up strength for improved tolerance to transfers and gait allowing patient to return to PLOF. Patient up in chair with spouse present, call light in reach and all needs met post RX.
--- NOTE | 2024-06-20 09:59 | SWNOTE1 ---
Pt is approved to go to [facility]. NATHALIA messaged Dr. Bales to see if she is medically stable for discharge. NATHALIA checked therapy notes and SNF is still recommended.
--- NOTE | 2024-06-20 10:34 | P.DS_ITS ---
DS: Providers Provider Date of admission: 06/17/24 18:17 Primary care physician: TAWANDA COOK Consults: 06/17/24 18:37 Consult to Pharmacy Routine Consulting Provider: Reason for consultation: Please Cameron me when Med Rec is Updated Has provider been notified: No Occupational Therapy Eval and Treat Routine Reason for consultation: Only if needed for Rehab Has provider been notified: No Physical Therapy Eval and Treat Routine Reason for consultation: Eval and Treat Has provider been notified: No DS: Diagnosis Discharge Diagnosis (1) Fall: (2) Back pain: (3) Hypertension: (4) Diabetes mellitus: (5) Basicervical fracture of neck of right femur: Plan Admission findings: Fall resulting in right hip fracture-plan per orthopedics, surgery completed 06/18 Right hip pain secondary to right hip hohvnqld-uqcgmkiaqhip-mqjiqaso intervention completing-plan per Ortho Asthma-acute exacerbation overnight time, improved so far this morning, wean supplemental oxygen, check chest x-ray Hypertension-currently stable Anemia-possibly acute blood loss anemia secondary to the hip fracture. Down 3 g total. Continue to monitor as an outpatient Hyponatremia-Down somewhat today, continue to monitor Hypokalemia-supplement Acute UTI with mild leukocytosis due to Beta hemolytic strep -add cefdinir Hypothyroidism-continue with home medications, TSH suppressed, follow as outpati ent Insulin-dependent diabetes mellitus-continue long-acting insulin, will increase sliding scale insulin sugars are still over 200 at times Postoperative hypoxia with leukocytosis- recurrent again on 06/20 requiring supplemental oxygenation at 2 days post op - check chest x-ray, encourage patient to use her incentive spirometer, aerosol treatments already ordered, will be on cefdinir for acute UTI Rheumatoid arthritis-we will hold Arava for now Admission status: Hip fracture, surgical intervention completed, medically necessary treatment will span 2 midnights. Inpatient status. Home with PT versus rehab process ongoing DS: Summary Hospital Course Hospital Course: Patient status post fall, not syncope just tripped, resulting in right hip fracture. Patient was taken to the operating room the following day. No complications yesterday. Will discuss with Ortho later today, possible discharge if patient is allowed to be weightbearing. Patient would prefer to be discharged home. She did have other issues and but her asthma was well- controlled her diabetes and her is improving and her hyponatremia is improving. She did have an episode of hypoxia with O2 sat in the mid 80s postoperatively. Placed on supplemental oxygen. She has since been weaned off of that. So postop hypoxia resolved. The day of discharge she did have an episode with hypoxia if she felt was an exacerbation of her asthma, no heartburn symptoms to be consistent with reflux causing the acute exacerbation of her asthma. That is since resolved and she has been able to be weaned off of supplemental oxygen. Still not doing well with physical therapy's will be discharged to rehab. Medications see list. Follow-up with PCP after discharge Time Spent with Patient Time attestation: Total time spent providing and/or coordinating discharge services: Exam Constitutional Vital Signs, click to edit/add: Last Vital Signs Temp 99.3 F 06/20/24 08:00 Pulse 95 H 06/20/24 08:00 Resp 18 06/20/24 08:58 BP 134/70 06/20/24 08:39 Pulse Ox 98 06/20/24 10:32 O2 Del Method Nasal Cannula 06/20/24 10:32 O2 Flow Rate 1 06/20/24 10:32 Documenting provider has reviewed patient's vital signs: yes Common normals: no apparent distress Chest Common normals: inspection of chest normal and palpation of chest normal Respiratory Common normals: normal respiratory effort, no retractions and clear to auscultation bilaterally (Somewhat diminished breath sounds due to poor inspiration) Cardio Common normals: regular rate, regular rhythm and no murmurs GI Common normals: Normal to inspection, nondistended, normoactive bowel sounds present, soft to palpation and non-tender DS: Data Data Completed and Pending Labs on day of discharge: Labs from last 24 hours 06/20/24 06/20/24 06/19/24 07:36 05:57 21:08 WBC 12.3 H RBC 3.71 L Hgb 11.0 L Hct 33.6 L MCV 90.6 MCH 29.6 MCHC 32.7 RDW 14.6 Plt Count 225 MPV 9.6 Neut % (Auto) 61.8 Lymph % (Auto) 24.5 [place] % (Auto) 11.3 Eos % (Auto) 1.4 Baso % (Auto) 0.6 Neut # (Auto) 7.6 H Lymph # (Auto) 3.0 [place] # (Auto) 1.4 H Eos # (Auto) 0.2 Baso # (Auto) 0.1 Abs Immat Gran (auto) 0.05 H Imm/Tot Granulo (auto) 0.4 Sodium 131 L Potassium 3.1 L Chloride 96 L Carbon Dioxide 26.3 Anion Gap 11.8 BUN 16.0 Creatinine 0.81 Est GFR ( Amer) >60 Est GFR (Non-Af Amer) >60 BUN/Creatinine Ratio 19.8 Glucose 72 L Calcium 7.9 L POC Glucose 107 H 290 H 06/19/24 06/19/24 16:30 11:37 WBC RBC Hgb Hct MCV MCH MCHC RDW Plt Count MPV Neut % (Auto) Lymph % (Auto) [place] % (Auto) Eos % (Auto) Baso % (Auto) Neut # (Auto) Lymph # (Auto) [place] # (Auto) Eos # (Auto) Baso # (Auto) Abs Immat Gran (auto) Imm/Tot Granulo (auto) Sodium Potassium Chloride Carbon Dioxide Anion Gap BUN Creatinine Est GFR ( Amer) Est GFR (Non-Af Amer) BUN/Creatinine Ratio Glucose Calcium POC Glucose 148 H 139 H Discharge Plan Discharge Disposition: Xfer SNF Condition: Good Discharge Medications: New cefdinir 300 mg capsule 600 mg PO DAILY Qty: 20 0RF oxycodone-acetaminophen 5-325 mg tablet 1 tab PO Q6H PRN (Reason: pain) Qty: 28 0RF Continued clonidine HCl 0.1 mg tablet 0.1 mg PO BID metoprolol succinate 50 mg tablet extended release 24 hr 50 mg PO .QD sulfasalazine 500 mg tablet,delayed release (DR/EC) 0.5 g PO TID leflunomide 20 mg tablet 20 mg PO .QD simvastatin 40 mg tablet 40 mg PO .QHS gabapentin 800 mg tablet 800 mg PO QID levothyroxine 200 mcg tablet 200 mcg PO .QD ergocalciferol (vitamin D2) 1,250 mcg (50,000 unit) capsule 1,250 mcg PO MOFR@09 insulin glargine [Lantus Solostar U-100 Insulin] 100 unit/mL (3 mL) insulin pen 55 unit SUBCUT .QHS 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 Simental at the [facility] office on July 08 at 9:00am. [address] [place] [address] [place] [address] Discharge Date/Time: 06/20/24 13:10
--- NOTE | 2024-06-20 10:46 | SWNOTE1 ---
Case management spoke with pt earlier and she is still in agreement for SNF for a short period of time. Dr. Bales is discharging her today. Pt is going to [facility]. NATHALIA faxed over mi med rec to [facility]. NATHALIA did ask [facility] about transport and they are able to transport her about 1:00. NATHALIA notified nursing and pt/ in room. NATHALIA completed [facility] online.
[2024-06-20 12:11] LABS: Glucometer 101 mg/dL (74-106)
== END 2024-06-20 13:10 | DRG 481 ==
LOC: ER 17:50 → MS 18:20
PROVIDERS: Orthopaedic Surgery; Physician Assistant; Admitting Provider Family Medicine; Emergency Provider Emergency Medicine; PCP Nurse Practitioner Family; Visit Provider Family Medicine
PROC: 0QS636Z Reposition Right Upper Femur with Intramedullary Internal Fixation Device, Percutaneous Approach (ICD-10-PCS; principal; 2024-06-18 12:00)
DX: S72.091A Other fracture of head and neck of right femur, initial encounter for closed fracture (principal); D62 Acute posthemorrhagic anemia; J45.901 Unspecified asthma with (acute) exacerbation; E87.1 Hypo-osmolality and hyponatremia; N39.0 Urinary tract infection, site not specified; I10 Essential (primary) hypertension; E11.9 Type 2 diabetes mellitus without complications; M06.9 Rheumatoid arthritis, unspecified; E87.6 Hypokalemia; R09.02 Hypoxemia; M79.7 Fibromyalgia; E89.0 Postprocedural hypothyroidism; B95.1 Streptococcus, group B, as the cause of diseases classified elsewhere; D72.829 Elevated white blood cell count, unspecified; W01.10XA Fall on same level from slipping, tripping and stumbling with subsequent striking against unspecified object, initial encounter; Z98.49 Cataract extraction status, unspecified eye; Z96.622 Presence of left artificial elbow joint; Z96.621 Presence of right artificial elbow joint; Z96.651 Presence of right artificial knee joint; Z90.710 Acquired absence of both cervix and uterus; Z79.899 Other long term (current) drug therapy; Z79.890 Hormone replacement therapy; Z79.4 Long term (current) use of insulin
CPT/HCPCS: 36415; 51702; 70450; 71045; 72125; 72170; 72192; 73060; 73552; 76000; 80048; 80053; 81001; 82948; 83735; 84443; 85025; 85610; 85730; 87086; 87150; 90471; 90715; 93005; 94640; 94667; 94668; 94761; 96365; 96366; 96372; 96375; 96376; 97110; 97161; 97165; 97530; 97535; 99285; C1713; C1776; J0665; J0690; J1170; J1290; J1650; J1885; J1920; J2250; J2371; J2405; J2704; J2800; J3010

== ENCOUNTER 2024-06-24 21:03 | Emergency (ER) | payer MEDICARE, SELFPAY ==
[2024-06-24] VITALS (15 sets, daily range): BP systolic 162–184; BP diastolic 92–147; PULSE 75–80; TEMP 36.7; O2SAT 97
--- NOTE | 2024-06-24 21:12 | XR_ITS ---
The [address] [address] Patient Name: ELSA CATALAN MRN: [id number] date: 1960 Sex: F Assigned Patient Location: ED.MAIN Current Patient Location: ER Accession/Order Number: [id number] Exam Date: 06/24/2024 21:40 Report Date: 06/24/2024 22:54 At the request of: TODD SAUL Procedure: XR chest 1V EXAM: XR chest 1V HISTORY: Altered mental status, resolved COMPARISON: Chest radiograph 06/20/2024 TECHNIQUE: AP portable upright view of the chest FINDINGS: Lungs are clear of focal consolidation. No pleural effusion or pneumothorax. Normal cardiomediastinal silhouette. No pulmonary vascular congestion. No acute osseous or soft tissue abnormalities. XR/XR chest 1V IMPRESSION: No acute cardiopulmonary process. No substantial change since 06/20/2024. Electronically authenticated by: MAVERICK DARNELL Date: 06/24/2024 22:54
--- NOTE | 2024-06-24 21:12 | CT_ITS ---
The [address] [address] Patient Name: ELSA CATALAN MRN: [id number] date: 1960 Sex: F Assigned Patient Location: ED.MAIN Current Patient Location: ED.MAIN Accession/Order Number: [id number] Exam Date: 06/24/2024 21:40 Report Date: 06/24/2024 22:38 At the request of: TODD SAUL Procedure: CT head/brain wo con EXAM: CT head/brain wo con HISTORY: Altered mental status, resolved INDICATION: 64 years old; Female. TECHNIQUE: CT Head (ax/cor/sag reformats). Ionizing radiation dose reduced via iterative reconstruction/FBP blend and body size kV/mA adjustment. Comparison: Head CT dated 06/17/2024. FINDINGS: POSTOPERATIVE CHANGES: None. BRAIN PARENCHYMA: No intraparenchymal or extra-axial hemorrhage. No mass effect. No midline shift or herniation. Old lacunar infarction in the centrum semiovale in the right. Patchy and confluent low-density seen in the white matter without mass effect. VENTRICLES/EXTRA-AXIAL SPACES: Enlarged, consistent with atrophy. SINUSES/MASTOIDS: Sinuses are clear although the maxillary sinuses and ethmoid sinuses are not completely included. Mastoids and middle ears are clear. MSK: No displaced or depressed calvarial fracture. OTHER: No hyperdense intraluminal thrombus. Vascular calcification is present. CT/CT head/brain wo con IMPRESSION: 1. No acute intracranial abnormality. No hemorrhage or mass effect. 2. Nonspecific white matter changes and old lacunar infarction. 3. Atrophy. 4. Vascular calcification. Electronically authenticated by: LAN ROLON Date: 06/24/2024 22:38
--- NOTE | 2024-06-24 21:12 | ECG_ITS ---
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
--- NOTE | 2024-06-24 21:13 | ED.GENADUL1 ---
HPI HPI - General Adult General Chief complaint: Altered Mental Status Stated complaint: HIGH BP Time Seen by Provider: 06/24/24 21:08 History of Present Illness HPI narrative: 64-year-old female presents for high blood pressure and an episode where she was less responsive than usual. That episode has now resolved. She is staying at [facility] for recovery from right hip fracture which appears to have happened on June 17 and she had surgery the next day. She had an episode tonight that lasted about 15 minutes where she was less responsive than usual and she was only oriented x 1. She is now fully oriented. She does not have any complaints at all. No headache chest pain shortness of breath or dizziness or palpitations. No abdominal pain. Related Data Home Medications ?Medication ?Instructions ?Recorded ?Confirmed clonidine HCl 0.1 mg tablet 0.1 mg PO BID 06/17/24 06/24/24 ergocalciferol (vitamin D2) 1,250 1,250 mcg PO MOFR@09 06/17/24 06/24/24 mcg (50,000 unit) capsule gabapentin 800 mg tablet 800 mg PO TID 06/17/24 06/24/24 insulin glargine 100 unit/mL (3 55 unit subcut .QHS 06/17/24 06/24/24 mL) subcutaneous pen (Lantus Solostar U-100 Insulin) leflunomide 20 mg tablet 20 mg PO .QD 06/17/24 06/24/24 levothyroxine 200 mcg tablet 200 mcg PO .QD 06/17/24 06/24/24 metoprolol succinate 50 mg 50 mg PO .QD 06/17/24 06/24/24 tablet,extended release 24 hr simvastatin 40 mg tablet 40 mg PO .QHS 06/17/24 06/24/24 sulfasalazine 500 mg 0.5 g PO TID 06/17/24 06/24/24 tablet,delayed release Previous Rx's ?Medication ?Instructions ?Recorded oxycodone-acetaminophen 5 mg-325 1 tab PO Q6H PRN pain #28 tabs 06/20/24 mg tablet Allergies Allergy/AdvReac Type Severity Reaction Status Date / Time Penicillins AdvReac Intermediate Rash Verified 06/24/24 21:18 Opioid HPI Opioid Management Most Recent Opioid Data: Last Pain Scale 3 06/24/24 21:50 Last Pain Intensity 8 06/20/24 09:00 Last Pain Assessment 06/19/24 09:00 Last Pain Assessment 06/20/24 13:00 Last ORT Total Score 0 06/17/24 18:30 Last ORT Risk Category Low Risk 06/17/24 18:30 Review of Systems ROS Narrative A ten point review of systems is negative except as noted above. PFSH PFSH Medical History Hypertension ?I10 - Essential (primary) hypertension (ICD-10) Rheumatoid arthritis ?M06.9 - Rheumatoid arthritis, unspecified (ICD-10) TMJ (dislocation of temporomandibular joint) ?S03.00XA - Dislocation of jaw, unspecified side, initial encounter (ICD-10) Fibromyalgia ?M79.7 - Fibromyalgia (ICD-10) Diabetes mellitus ?E11.9 - Type 2 diabetes mellitus without complications (ICD-10) Surgical History (Updated 06/17/24 @ 18:57 by Rose Motley LPN) Hx of cataract surgery ?Z98.49 - Cataract extraction status, unspecified eye (ICD-10) History of left elbow replacement ?Z96.622 - Presence of left artificial elbow joint (ICD-10) History of right elbow replacement ?Z96.621 - Presence of right artificial elbow joint (ICD-10) History of right knee joint replacement ?Z96.651 - Presence of right artificial knee joint (ICD-10) H/O: hysterectomy ?Z90.710 - Acquired absence of both cervix and uterus (ICD-10) H/O thyroidectomy ?E89.0 - Postprocedural hypothyroidism (ICD-10) Family History (Updated 06/17/24 @ 18:58 by Rose Motley LPN) Other Family history of cancer Social History (Updated 06/17/24 @ 18:59 by Rose Motley LPN) Within the past year, how often did you have a drink containing alcohol: monthly or less Within the past year, how many standard drinks containing alcohol did you have on a typical day: 1 or 2 Total score: 0 Score interpretation: A score less than 3 is consistent with normal alcohol consumption. Smoking status: Never smoker Second hand tobacco smoke exposure: No Non-prescribed substance use: denies use Highest level of school completed/degree received: high school graduate Are you now , , , , never or living with a partner: In a typical week, how many times do you talk on the telephone with family, friends, or neighbors: 3 or more times per week How often do you get together with friends or relatives: 3 or more times per week How often do you attend oriental orthodox or jehovah's witness services: never Do you belong to any clubs or organizations such as oriental orthodox groups unions, fraternal or athletic groups, or school groups: no Total score: 2 Score interpretation: A score of greater than or equal to 2 indicates the lowest level of social isolation. Little interest or pleasure in doing things: not at all Feeling down, depressed, or hopeless: not at all Feel stressed/tense/nervous/anxious/difficulty sleeping: not at all Do you think of yourself as: straight/heterosexual Gender Identity: female Exam Narrative Exam Narrative: Nurses note and vital signs reviewed and patient is not hypoxic. General: The patient appears in no apparent distress. Patient is resting comfortably on cart. She is sitting upright. Skin: Warm, dry, no pallor noted. There is no rash noted. Head: Normocephalic, atraumatic Eye: Normal conjunctiva, no drainage Ears, Nose, Mouth, and Throat: oral mucosa is moist. Nares patent. Cardiovascular: Regular Rate and Rhythm Respiratory: Patient is in no distress, no accessory muscle use, lungs are clear to auscultation, no wheezing, rales or rhonchi Back: non-tender GI: Soft and nontender Musculoskeletal: Right hip surgical wound is healing well. No dehiscence or erythema or drainage Neurological: A&O x4, normal speech Psychiatric: Cooperative Constitutional Vital Signs, click to edit/add: Last Vital Signs Temp 98.1 F 06/24/24 21:09 Pulse 80 06/24/24 23:00 Resp 23 H 06/24/24 23:00 BP 162/92 H 06/24/24 23:02 Pulse Ox 97 06/24/24 21:43 O2 Del Method Room Air 06/24/24 21:43 Course Vital Signs Vital signs: Vital Signs Blood Pressure 173/147 H 06/24/24 21:07 Temperature 98.1 F 06/24/24 21:09 Pulse Rate 80 06/24/24 23:00 Respiratory Rate 23 H 06/24/24 23:00 Blood Pressure 162/92 H 06/24/24 23:02 Pulse Oximetry 97 06/24/24 21:43 Oxygen Delivery Method Room Air 06/24/24 21:43 Medical Decision Making MDM Narrative Medical decision making narrative: Her workup is negative except she has some white cells in her urine. The patient is already on cefdinir and started that 4 days ago. Culture is pending on the urinalysis but I do not feel that at this point another antibiotic is indicated. CT brain and chest x-ray and the rest of her blood work are negative. She is able to be discharged back to [facility]. Findings were discussed with the patient. She has no symptoms whatsoever now. Differential Diagnosis Differential Diagnosis: Syncope, near syncope, anemia, cardiac dysrhythmia Lab Data Lab results reviewed: Yes I reviewed the patient's lab results Labs: Lab Results 06/24/24 06/24/24 Range/Units 21:04 22:18 WBC 7.4 (4.0-11.0) 10^3/uL RBC 3.31 L (4.20-5.40) 10^6/uL Hgb 9.7 L (12.0-16.0) g/dL Hct 29.0 L (36.0-48.0) % MCV 87.6 (81.0-99.0) fL MCH 29.3 (26.7-34.0) pg MCHC 33.4 (29.9-35.2) g/dL RDW 14.2 (11.0-15.0) % Plt Count 247 (150-450) 10^3/uL MPV 9.8 (9.5-13.5) fL Seg Neuts % (Manual) 42.0 L (43.0-75.0) Lymphocytes % (Manual) 39.0 (20.5-60.0) % Monocytes % (Manual) 11.0 (1.7-12.0) % Eosinophils % (Manual) 8.0 H (0.9-7.0) % Basophils % (Manual) 0.0 L (0.2-2.0) % Neutrophils # (Manual) 3.10 (1.4-6.5) 10^3/uL Lymphocytes # (Manual) 2.88 (1.20-3.80) 10^3/uL Monocytes # (Manual) 0.81 H (0.30-0.80) 10^3/uL Eosinophils # (Manual) 0.59 (0.00-0.70) 10^3/uL Basophils # (Manual) 0.00 (0.00-0.10) 10^3/uL Sodium 135 L (136-145) mmol/L Potassium 3.4 L (3.5-5.1) mmol/L Chloride 101 (98-107) mmol/L Carbon Dioxide 25.7 (21.0-32.0) mmol/L Anion Gap 11.7 BUN 11.0 (7.0-18.0) mg/dL Creatinine 0.62 (0.55-1.02) mg/dL Est GFR ( Amer) >60 (>=60) Est GFR (Non-Af Amer) >60 (>=60) BUN/Creatinine Ratio 17.7 Glucose 202 H (74-106) mg/dL Calcium 7.7 L (8.5-10.1) mg/dL Urine Color Lt. yellow (YELLOW) Urine Clarity Clear (CLEAR) Urine pH 6.0 (5.0-9.0) Ur Specific [place] 1.010 (1.005-1.025) Urine Protein Negative (NEG/TRACE) mg/dL Urine Glucose (UA) 500 A (NEGATIVE) mg/dL Urine Ketones Negative (NEGATIVE) mg/dL Urine Occult Blood Negative (NEGATIVE) Urine Nitrite Negative (NEGATIVE) Urine Bilirubin Negative (NEGATIVE) Urine Urobilinogen 0.2 (0.2-1.0) EU/dL Ur Leukocyte Esterase Small A (NEGATIVE) Urine RBC 0-2 (0-2) #/HPF Urine WBC 10-20 A (NONE SEEN) #/HPF Ur Squamous Epith Cells Few A (NONE/RARE) #/LPF Urine Crystals None seen (None Seen) #/HPF Urine Bacteria Trace A (NONE SEEN) #/HPF Urine Casts None seen (NONE SEEN) #/LPF Urine Mucus None seen (NONE SEEN) Ur Culture Indicated? Yes Imaging Data Chest x-ray: Radiologist's impression: ITS Impressions Chest X-Ray 06/24/24 21:12 IMPRESSION: No acute cardiopulmonary process. No substantial change since 06/20/2024. Electronically authenticated by: MAVERICK DARNELL Date: 06/24/2024 22:[address] 06/24/24 21:12 IMPRESSION: 1. No acute intracranial abnormality. No hemorrhage or mass effect. 2. Nonspecific white matter changes and old lacunar infarction. 3. Atrophy. 4. Vascular calcification. Electronically authenticated by: LAN ROLON Date: 06/24/2024 22:38 ECG Data Attestation: I personally reviewed and interpreted this ECG as follows: (EKG on my interpretation shows normal sinus rhythm with rate of 77 and no acute change.) Discharge Plan Discharge Chief Complaint: Altered Mental Status Clinical Impression: Near syncope Patient Disposition: Home, Self-Care Time of Disposition Decision: 23:06 Condition: Good Mode of Transportation: Private Vehicle Prescriptions / Home Meds: No Action clonidine HCl 0.1 mg tablet 0.1 mg PO BID metoprolol succinate 50 mg tablet extended release 24 hr 50 mg PO .QD sulfasalazine 500 mg tablet,delayed release (DR/EC) 0.5 g PO TID leflunomide 20 mg tablet 20 mg PO .QD simvastatin 40 mg tablet 40 mg PO .QHS gabapentin 800 mg tablet 800 mg PO TID levothyroxine 200 mcg tablet 200 mcg PO .QD ergocalciferol (vitamin D2) 1,250 mcg (50,000 unit) capsule 1,250 mcg PO MOFR@09 insulin glargine [Lantus Solostar U-100 Insulin] 100 unit/mL (3 mL) insulin pen 55 unit SUBCUT .QHS oxycodone-acetaminophen 5-325 mg tablet 1 tab PO Q6H PRN (Reason: pain) Qty: 28 0RF Print Language: Ugandan Instructions: Near Syncope (ED) Referrals: TAWANDA COOK [Primary Care Provider] - 1 week
--- OUTSIDE RECORDS SUMMARY | 2024-06-24 21:13 | XMS_ITS | CCD ---
Author Organization [facility] Care Team Providers Care Loftsman Name Role Phone PEPE CARTER Unavailable Unavailable Ilo, Delroy Primary Care Provider Unavailabl e Sveta Silva Unavailable Pretty Fermin Primary Care Provider AUNDREA CLIFFORD Admitting Unavailable ROSE MENDOZA Attending Unavailable ILO, DELROY Primary Care Unavailable ROSE MENDOZA Admitting Unavailable ROSE MENDOZA Attending Unavailable ILO, DELROY Primary Care Unavailable ROSE MENDOZA Admitting Unavailable MENDOZAROSE Attending Unavailable HOY, PRETTY Primary Care Unavailable DEREK ZABALA Attending Unavailable HOAaron, PRETTY Primary Care Unavailable AYDE ALMANZAR Admitting Unavailabl e AYDE ALMANZAR Attending Unavailabl e ILO, DELROY Primary Care Unavailable [facility] Consulting AYDE Daniels Admitting Unavailabl e JENY, PRETTY Primary Care Unavailable LEATHA GOMEZ Attending Unavailable EMILEEY, PRETTY Primary Care Unavailable [facility] Consulting ROCHELLE Schwartz Admitting Unavailable NUSRAT MARX Attending Unavailable AYDE ALMANZAR Admitting Unavailabl e AYDE ALMANZAR Attending Unavailabl e JENY, PRETTY Primary Care Unavailable AYDE ALMANZAR Admitting Unavailabl e CANDELARIO CURTIS Attending Unavailable JENY, PRETTY Primary Care Unavailable AYDE ALMANZAR Admitting Unavailabl e AYDE ALMANZAR Referring Unavailabl e JENY, PRETTY Primary Care Unavailable Ayde Almanzar Unavailable Pretty Fermin Primary Care Provider [phone] Ayde Almanzar Unavailable Leatha Gomez Unavailable Pretty Fermin MD Primary Care Provider [phone] Pretty Fermin MD Primary Care Provider [phone] JOYCE, TAWANDA Consulting Unavailable JOYCE, TAWANDA Primary Care Unavailable JOYCE, TAWANDA Attending Unavailable JOYCE, TAWANDA Admitting Unavailable DR LATASHA HAYES V Consulting Unavailable JOYCE, TAWANDA Primary Care Unavailable JOYCE, TAWANDA Attending Unavailable JOYEC, TAWANDA Admitting Unavailable JOYCE, TAWANDA Consulting Unavailable [...] Unavailable Pretty Fermin MD Primary Care Provider [phone] Pretty Fermin MD Primary Care Provider [phone] PEPE CARTER Attending Unavailable PRETTY FERMIN M [...] sources) indomethacin; Translations: [INDOMETHACIN] Drug Allergy 3 [facility] Repository (18 sources) penicillin; Translations: [PENICILLIN G] Drug Allergy 3 [facility] Repository (18 sources) propoxyphene; Translations: [PROPOXYPHENE] Drug Allergy 3 [facility] Repository (2 sources) OTHER; Translations: [OTHER] Propensity to adverse reactions (disorder) 3 [facility] Repository (12 sources) Penicillins; Translations: [Penicillins] Propensity to adverse reactions to drug 3 [facility] (10 sources) Lisinopril; Translations: [Unknown] Drug Allergy 9 Other (See Comments) [facility] (6 sources) Adhesive Tape-Silicones Propensity to adverse reactions to drug 9 [facility] (20 sources) Ciprofloxacin; Translations: [CIPROFLOXACIN] Drug Allergy 7 [facility] (14 sources) Anesthetics [Other] Propensity to adverse reactions 3 [facility] (1 source) Acetaminophen / oxyCODONE Drug Allergy 1 [facility] Repository (1 source) Ciprofloxacin Drug Allergy 7 [facility] Repository (1 source) Latex Drug allergy (disorder) 0 [facility] Repository (3 sources) Propofol; Translations: [PROPOFOL] Drug Allergy 4 GI Upset [facility] Medications Current Medications Medication Drug Class(es) Dates [...] Reasons: rheumatoid arthritis. 0 09/04/2019 Discontinued (Reorder) [id number] 200 actuat albuterol 0.09 mg/actuat metered dose [...] on above: Take 1 capsule by [facility] twice daily as needed for constipation. empagliflozin 25 mg oral tablet (20 sources) Sodium-Glucose Cotransporter 2 Inhibitor Start: 0 take 1 tablet by mouth once daily JARDIANCE 25 mg tablet Take 25 mg by mouth once daily. 07/02/2020 Active take 1 tablet by [facility] once daily in the morning, then take [...] OF 250 MG Take 200 mcg by [facility] once daily. 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 Order Checker Packer Processer: SUSANA Transcribe Date/Time: Jun 07 2024 4:27P Dictated by : VINH RUIZ MD This examination was interpreted and the report reviewed and electronically signed by: VINH RUIZ MD on Jun 07 2024 4:36PM EST [id number] Normal [facility] CNOVon 05-18-2024 CNOV Office Visit (KATHLEEN ) HOSSEINELSA ([id number]) 1960 F Date Time Provider Department 05/18/24 [...] the flow of saliva in many patients. Tibes flavored sugarless tablets and sugar-free chewing gum [...] should conta (more content not included)... Normal [facility] 05-15-2024 RENEE Telephone (CHAD) ELSA CATALAN ([id number]) 1960 F Date Time Provider Department 05/15/24 PEPE CARTER During your visit today, we recorded the following information about you: Pepe Carter MD 05/15/2024 7:55 PM Signed Please Call patient if MyChart note not read to review results/released to My Chart if tests completed at [facility]: high glucose- will monitor with primary care [...] 15, crp 0.7, vitamin D 34.8, vitamin d09-6340;negative quantiferon tb; Patient's request for medication is [...] 0 COMPREHENSIVE METABOLIC PANEL [SQCMP] Order #: [id number] FUTURE COMPLETE BLOOD COUNT [SQCBC] Order #: [id number] FUTURE SEDIMENTATION RATE, WESTERGREN [SQWSR] Order #: [id number] FUTURE C-REACTIVE PROTEIN [SQCRP] Order #: [id number] FUTURE VITAMIN D 25 HYDROXY [SQVITD] Order #: [id number] FUTURE Prescriptions as of 05/16/2024 - ergocalciferol [...] (ZOCOR) 20 (more content not included)... Normal [facility] 25(OH)D3 SerPl-mCncon 2023 25-hydroxyvitamin D3 [Mass/Vol] 30.0 ng/mL Low 31.0-80.0 [facility] Comment on above: Order Comment: Vivek sanchez Type: BLOOD SPECIMEN Ordering Facility: [facility] Address: [address] [place] [address] Result Comment: Clas sification of 25 OH Vitamin D status: Deficiency/Insufficiency: < or = 30 ng/ml. Sufficiency/Optimal Levels: 31-80 ng/mL Toxicity: > 100 ng/mL. Test performed by chemiluminescent immunoassay. Performed By: #### 1 989-3 #### [facility] CLIA [id number] [address] [place] [address] [place] CBC panel Auto (Bld)on 05-14 Erythrocyte distribution width (RBC) [Ratio] 12.5 % Normal 11.5-15.0 [facility] Comment on above: Order Comment: Vivek sanchez Type: BLOOD SPECIMEN Ordering Facility: [facility] Address: [address] [place] [address] Performed By: #### 5 8410-2, 4537-7 #### [facility] CLIA [id number] [address] [place] [address] [place] Hematocrit (Bld) [Volume fraction] 39.1 % Normal 36.0-46.0 [facility] Comment on above: Order Comment: Vivek sancehz Type: BLOOD SPECIMEN Ordering Facility: [facility] Address: [address] [place] [address] Performed By: #### 5 8410-2, 4537-7 #### [facility] CLIA [id number] [address] [place] [address] [place] Hemoglobin (Bld) [Mass/Vol] 13.6 g/dL Normal 11.5-15.5 [facility] Comment on above: Order Comment: Speci men Type: BLOOD SPECIMEN Ordering Facility: [facility] Address: [address] [place] [address] Performed By: #### 5 8410-2, 4537-7 #### [facility] CLIA [id number] [address] [place] [address] [place] MCH (RBC) [Entitic mass] 29.6 pg Normal 26.0-34.0 [facility] Comment on above: Order Comment: Speci men Type: BLOOD SPECIMEN Ordering Facility: [facility] Address: [address] [place] [address] Performed By: #### 5 8410-2, 4537-7 #### [facility] CLIA [id number] [address] [place] [address] [place] MCHC (RBC) [Mass/Vol] 34.8 g/dL Normal 30.5-36.0 [facility] Comment on above: Order Comment: Speci men Type: BLOOD SPECIMEN Ordering Facility: [facility] Address: [address] [place] [address] Performed By: #### 5 8410-2, 4537-7 #### [facility] CLIA [id number] [address] [place] [address] [place] MCV (RBC) [Entitic vol] 85.0 fL Normal 80.0-100.0 [facility] Comment on above: Order Comment: Speci men Type: BLOOD SPECIMEN Ordering Facility: [facility] Address: [address] [place] [address] Performed By: #### 5 8410-2, 4537-7 #### [facility] CLIA [id number] [address] [place] [address] [place] Nucleated RBC (Bld) [#/Vol] 10*3/uL Normal <0.01 [facility] Comment on above: Order Comment: Speci men Type: BLOOD SPECIMEN Ordering Facility: [facility] Address: [address] [place] [address] Performed By: #### 5 8410-2, 4537-7 #### [facility] CLIA [id number] [address] [place] [address] [place] Platelet mean volume (Bld) [Entitic vol] 10.0 fL Normal 9.0-12.7 [facility] Comment on above: Order Comment: Speci men Type: BLOOD SPECIMEN Ordering Facility: [facility] Address: [address] [place] [address] Performed By: #### 5 8410-2, 4537-7 #### [facility] CLIA [id number] [address] [place] [address] [place] Platelets (Bld) [#/Vol] 319 10*3/uL Normal 150-400 [facility] Comment on above: Order Comment: Speci men Type: BLOOD SPECIMEN Ordering Facility: [facility] Address: [address] [place] [address] Performed By: #### 5 8410-2, 4537-7 #### [facility] CLIA [id number] [address] [place] [address] [place] RBC (Bld) [#/Vol] 4.60 10*6/uL Normal 3.90-5.20 [facility] Comment on above: Order Comment: Speci men Type: BLOOD SPECIMEN Ordering Facility: [facility] Address: [address] [place] [address] Performed By: #### 5 8410-2, 4537-7 #### [facility] CLIA [id number] [address] [place] [address] [place] WBC (Bld) [#/Vol] 7.63 10*3/uL Normal 3.70-11.00 [facility] Comment on above: Order Comment: Speci men Type: BLOOD SPECIMEN Ordering Facility: [facility] Address: [address] [place] [address] Performed By: #### 5 8410-2, 4537-7 #### [facility] CLIA [id number] [address] [place] [address] [place] CRP SerPl-mCncon 05-14-2024 CRP [Mass/Vol] 0.6 mg/dL Normal <0.9 [facility] Comment on above: Order Comment: Speci men Type: BLOOD SPECIMEN Ordering Facility: [facility] Address: [address] [place] [address] Performed By: #### 1 989-3 #### [facility] CLIA [id number] [address] [place] [address] [place] Comprehensive metabolic 2000 panelon 05-14-2024 Albumin [Mass/Vol] 4.1 g/dL Normal 3.9-4.9 [facility] Comment on above: Order Comment: Speci men Type: BLOOD SPECIMEN Ordering Facility: [facility] Address: [address] [place] [address] Performed By: #### 1 989-3 #### [facility] CLIA [id number] [address] [place] [address] [place] ALP [Catalytic activity/Vol] 85 U/L Normal 34-123 [facility] Comment on above: Order Comment: Speci men Type: BLOOD SPECIMEN Ordering Facility: [facility] Address: [address] [place] [address] Performed By: #### 1 989-3 #### [facility] CLIA [id number] [address] [place], [place] [address] [place] ALT [Catalytic activity/Vol] 33 U/L Normal 7-38 [facility] Comment on above: Order Comment: Speci men Type: BLOOD SPECIMEN Ordering Facility: [facility] Address: [address] [place] [address] Performed By: #### 1 989-3 #### [facility] CLIA [id number] [address] [place] [address] [place] Anion gap [Moles/Vol] 10 mmol/L Normal 8-15 [facility] Comment on above: Order Comment: Speci men Type: BLOOD SPECIMEN Ordering Facility: [facility] Address: [address] [place] [address] Performed By: #### 1 989-3 #### [facility] CLIA [id number] [address] [place] [address] [place] AST [Catalytic activity/Vol] 27 U/L Normal 13-35 [facility] Comment on above: Order Comment: Speci men Type: BLOOD SPECIMEN Ordering Facility: [facility] Address: [address] [place] [address] Performed By: #### 1 989-3 #### [facility] CLIA [id number] [address] [place] [address] [place] Bilirubin [Mass/Vol] 0.3 mg/dL Normal 0.2-1.3 [facility] Comment on above: Order Comment: Speci men Type: BLOOD SPECIMEN Ordering Facility: [facility] Address: [address] [place] [address] Performed By: #### 1 989-3 #### [facility] CLIA [id number] [address] [place] [address] [place] Calcium [Mass/Vol] 9.7 mg/dL Normal 8.5-10.2 [facility] Comment on above: Order Comment: Speci men Type: BLOOD SPECIMEN Ordering Facility: [facility] Address: [address] [place] [address] Performed By: #### 1 989-3 #### [facility] CLIA [id number] [address] [place] [address] [place] Chloride [Moles/Vol] 98 mmol/L Normal 98-107 [facility] Comment on above: Order Comment: Speci men Type: BLOOD SPECIMEN Ordering Facility: [facility] Address: [address] [place] [address] Performed By: #### 1 989-3 #### [facility] CLIA [id number] [address] [place] [address] [place] CO2 [Moles/Vol] 31 mmol/L High 22-30 [facility] Comment on above: Order Comment: Speci men Type: BLOOD SPECIMEN Ordering Facility: [facility] Address: [address] [place] [address] Performed By: #### 1 989-3 #### [facility] CLIA [id number] [address] [place] [address] [place] Creatinine [Mass/Vol] 0.74 mg/dL Normal 0.58-0.96 [facility] Comment on above: Order Comment: Speci men Type: BLOOD SPECIMEN Ordering Facility: [facility] Address: [address] [place] [address] Performed By: #### 1 989-3 #### [facility] CLIA [id number] [address] [place] [address] [place] Creatinine and Glomerular filtration rate.predicted panel (S/P/Bld) 90 mL/min/1.73m??? Normal >=60 [facility] Comment on above: Order Comment: Speci men Type: BLOOD SPECIMEN Ordering Facility: [facility] Address: [address] [place] [address] Result Comment: Carrie mated Glomerular Filtration Rate [...] GFR. Performed By: #### 1 989-3 #### [facility] CLIA [id number] [address] [place] [address] [place] Glucose [Mass/Vol] 237 mg/dL High 74-99 [facility] Comment on above: Order Comment: Speci laura Type: BLOOD SPECIMEN Ordering Facility: [facility] Address: [address] [place] [address] Result Comment: The [place] [employer] (ADA) provides guidance for cutoff [...] Standards of Medical Care in Diabetes 2016, [place] [employer]. Diabetes Care. 2016.39(Suppl 1). Performed By: #### 1 989-3 #### [facility] CLIA [id number] [address] [place] [address] [place] Potassium [Moles/Vol] 3.6 mmol/L Low 3.7-5.1 [facility] Comment on above: Order Comment: Vivek sanchez Type: BLOOD SPECIMEN Ordering Facility: [facility] Address: [address] [place] [address] Performed By: #### 1 989-3 #### [facility] CLIA [id number] [address] [place] [address] [place] Protein [Mass/Vol] 7.7 g/dL Normal 6.3-8.0 [facility] Comment on above: Order Comment: Vivek sanchez Type: BLOOD SPECIMEN Ordering Facility: [facility] Address: [address] [place] [address] Performed By: #### 1 989-3 #### [facility] CLIA [id number] [address] [place] [address] [place] Sodium [Moles/Vol] 139 mmol/L Normal 136-144 [facility] Comment on above: Order Comment: Speci men Type: BLOOD SPECIMEN Ordering Facility: [facility] Address: [address] [place] [address] Performed By: #### 1 989-3 #### [facility] CLIA [id number] [address] [place] [address] [place] Urea nitrogen [Mass/Vol] 19 mg/dL Normal 7-21 [facility] Comment on above: Order Comment: Speci men Type: BLOOD SPECIMEN Ordering Facility: [facility] Address: [address] [place] [address] Performed By: #### 1 989-3 #### [facility] CLIA [id number] [address] [place] [address] [place] ESR Westergren method (Bld) [Velocity]on 05-14-2024 ESR (Bld) [Velocity] 37 mm/h High 0-20 [facility] Comment on above: Order Comment: Speci men Type: BLOOD SPECIMEN Ordering Facility: [facility] Address: [address] [place] [address] Performed By: #### 1 989-3 #### [facility] CLIA [id number] [address] [place] [address] [place] CNPTiny 12-29-2023 CNPN Telephone (CHAD) ELSA CATALAN ([id number]) 1960 F Date Time Provider Department 12/29/23 [...] calling: self Call patient at: on cell [phone] (home) [phone] (cell) Was an appointment scheduled: No Closing statement: Symptom Call: Thank you for calling [facility], your call is very important. A nurse [...] Lm regarding results and recommendations sent via [employer]. Suri Rico, RN 01/01/2024 12:04 PM Signed [...] glargine (L (more content not included)... Normal [facility] ELSA [facility]ALAN ([id number]) 1960 F Date Time Provider Department 11/27/23 PEPE CARTER During your visit today, we recorded the following information about you: Pepe Carter MD 01/01/2024 5:56 PM Addendum Please Call patient if MyChart note not read to review results/released to My Chart if tests completed at [facility]: Borderline glucose- will monitor with primary care [...] 15, crp 0.7, vitamin D 34.8, vitamin m90-5022;negative quantiferon tb; Lauren Galo MA 11/27/2023 8:45 [...] [E55.9] Order(s):COMP METABOLIC PANEL [SQCMP] Order #: [id number] FUTURE CBC [SQCBC] Order #: [id number] FUTURE SED RATE WESTERGREN [SQWSR] Order #: [id number] FUTURE C-REACTIVE PROTEIN (CRP) [SQCRP] Order #: [id number] FUTURE VITAMIN D 25 HYDROXY [SQVITD] Order #: [id number] FUTURE Prescriptions as of 01/01/2024 - methotrexate [...] daily. Prob (more content not included)... Normal [facility] 25(OH)D3 SerPl-mCncon 2023 25-hydroxyvitamin D3 [Mass/Vol] 34.8 ng/mL Normal 31.0-80.0 [facility] Comment on above: Order Comment: Vivek sanchez Type: BLOOD SPECIMEN Ordering Facility: [facility] Address: [address] [place] [address] Result Comment: Clas sification of 25 OH Vitamin D status: Deficiency/Insufficiency: < or = 30 ng/ml. Sufficiency/Optimal Levels: 31-80 ng/mL Toxicity: > 100 ng/mL. Test performed by chemiluminescent immunoassay. Performed By: #### 5 8410-2, 4537-7 #### [facility] CLIA [id number] [address] [place] [address] STATES OF [facility] BLOOD TB SCREENon 11-23-2023 M. tuberculosis tuberculin stim IFN-g Ql (Bld) Negative Normal [facility] Comment on above: Order Comment: Vivek sanchez Type: BLOOD SPECIMEN Ordering Facility: [facility] Address: [address] [place] [address] Performed By: #### I NFTBP #### [facility] CLIA [id number] [address] [place] [address] [place] MITOGEN MINUS NIL >9.83 Normal >=0.50 [facility] Comment on above: Order Comment: Vivek sanchez Type: BLOOD SPECIMEN Ordering Facility: [facility] Address: [address] [place] [address] Performed By: #### I NFTBP #### [facility] CLIA [id number] [address] [place] [address] [place] TB GAMMA INTERPRETATION Infection with M. tuberculosis complex is unlikely. If latent tuberculosis infection is highly suspected, a negative result does not rule out the infection. Specimens from immunocompromised patients and those <5 years of age may show false negative results. In case of a contact investigation, please repeat 8-12 weeks after a known exposure. Normal [facility] Comment on above: Order Comment: Speci men Type: BLOOD SPECIMEN Ordering Facility: [facility] Address: [address] [place] [address] Performed By: #### I NFTBP #### [facility] CLIA [id number] [address] [place] [address] [place] TB NIL 0.17 IU/mL Normal <=8.00 [facility] Comment on above: Order Comment: Speci men Type: BLOOD SPECIMEN Ordering Facility: [facility] Address: [address] [place] [address] Performed By: #### I NFTBP #### [facility] CLIA [id number] [address] [place] [address] [place] TB1 AG MINUS NIL 0.13 IU/mL Normal <0.35 [facility] Comment on above: Order Comment: Speci men Type: BLOOD SPECIMEN Ordering Facility: [facility] Address: [address] [place] [address] Performed By: #### I NFTBP #### [facility] CLIA [id number] [address] [place] [address] [place] TB2 AG MINUS NIL 0.13 IU/mL Normal <0.35 [facility] Comment on above: Order Comment: Speci men Type: BLOOD SPECIMEN Ordering Facility: [facility] Address: [address] [place] [address] Performed By: #### I NFTBP #### [facility] CLIA [id number] [address] [place] [address] [place] CBC panel Auto (Bld)on 11-23 Erythrocyte distribution width (RBC) [Ratio] 14.2 % Normal 11.5-15.0 [facility] Comment on above: Order Comment: Speci men Type: BLOOD SPECIMEN Ordering Facility: [facility] Address: [address] [place] [address] Performed By: #### 5 8410-2, 4537-7 #### [facility] CLIA [id number] [address] [place] [address] [place] Hematocrit (Bld) [Volume fraction] 40.3 % Normal 36.0-46.0 [facility] Comment on above: Order Comment: Speci men Type: BLOOD SPECIMEN Ordering Facility: [facility] Address: [address] [place] [address] Performed By: #### 5 8410-2, 4537-7 #### [facility] CLIA [id number] [address] [place] [address] [place] Hemoglobin (Bld) [Mass/Vol] 13.5 g/dL Normal 11.5-15.5 [facility] Comment on above: Order Comment: Speci men Type: BLOOD SPECIMEN Ordering Facility: [facility] Address: [address] [place] [address] Performed By: #### 5 8410-2, 4537-7 #### [facility] CLIA [id number] [address] [place] [address] [place] MCH (RBC) [Entitic mass] 30.5 pg Normal 26.0-34.0 [facility] Comment on above: Order Comment: Speci men Type: BLOOD SPECIMEN Ordering Facility: [facility] Address: [address] [place] [address] Performed By: #### 5 8410-2, 4537-7 #### [facility] CLIA [id number] [address] [place] [address] [place] MCHC (RBC) [Mass/Vol] 33.5 g/dL Normal 30.5-36.0 [facility] Comment on above: Order Comment: Speci men Type: BLOOD SPECIMEN Ordering Facility: [facility] Address: [address] [place] [address] Performed By: #### 5 8410-2, 4537-7 #### [facility] CLIA [id number] [address] [place] [address] [place] MCV (RBC) [Entitic vol] 91.0 fL Normal 80.0-100.0 [facility] Comment on above: Order Comment: Speci men Type: BLOOD SPECIMEN Ordering Facility: [facility] Address: [address] [place] [address] Performed By: #### 5 8410-2, 4537-7 #### [facility] CLIA [id number] [address] [place] [address] [place] Nucleated RBC (Bld) [#/Vol] 10*3/uL Normal <0.01 [facility] Comment on above: Order Comment: Speci men Type: BLOOD SPECIMEN Ordering Facility: [facility] Address: [address] [place] [address] Performed By: #### 5 8410-2, 4537-7 #### [facility] CLIA [id number] [address] [place] [address] [place] Platelet mean volume (Bld) [Entitic vol] 10.2 fL Normal 9.0-12.7 [facility] Comment on above: Order Comment: Speci men Type: BLOOD SPECIMEN Ordering Facility: [facility] Address: [address] [place] [address] Performed By: #### 5 8410-2, 4537-7 #### [facility] CLIA [id number] [address] [place] [address] [place] Platelets (Bld) [#/Vol] 302 10*3/uL Normal 150-400 [facility] Comment on above: Order Comment: Speci men Type: BLOOD SPECIMEN Ordering Facility: [facility] Address: [address] [place] [address] Performed By: #### 5 8410-2, 4537-7 #### [facility] CLIA [id number] [address] [place] [address] [place] RBC (Bld) [#/Vol] 4.43 10*6/uL Normal 3.90-5.20 [facility] Comment on above: Order Comment: Speci men Type: BLOOD SPECIMEN Ordering Facility: [facility] Address: [address] [place] [address] Performed By: #### 5 8410-2, 4537-7 #### [facility] CLIA [id number] [address] [place] [address] [place] WBC (Bld) [#/Vol] 8.77 10*3/uL Normal 3.70-11.00 [facility] Comment on above: Order Comment: Speci men Type: BLOOD SPECIMEN Ordering Facility: [facility] Address: [address] [place] [address] Performed By: #### 5 8410-2, 4537-7 #### [facility] CLIA [id number] [address] [place] [address] [place] CNOVon 11-23-2023 CNOV Office Visit (CHAD ) ELSA CATALAN ([id number]) 1960 F Date Time Provider Department 11/23/23 [...] the flow of saliva in many patients. Tibes flavored sugarless tablets and sugar-free chewing gum [...] dry e (more content not included)... Normal [facility] CRP SerPl-mCncon 11-23-2023 CRP [Mass/Vol] 0.7 mg/dL Normal <0.9 [facility] Comment on above: Order Comment: Vivek sanchez Type: BLOOD SPECIMEN Ordering Facility: [facility] Address: [address] [place] [address] Performed By: #### 1 989-3 #### [facility] CLIA [id number] [address] [place] [address] [place] Comprehensive metabolic 2000 panelon 11-23-2023 Albumin [Mass/Vol] 4.5 g/dL Normal 3.9-4.9 [facility] Comment on above: Order Comment: iVvek sanchez Type: BLOOD SPECIMEN Ordering Facility: [facility] Address: [address] [place] [address] Performed By: #### 1 989-3 #### [facility] CLIA [id number] [address] [place] [address] [place] ALP [Catalytic activity/Vol] 79 U/L Normal 34-123 [facility] Comment on above: Order Comment: Vivek sanchez Type: BLOOD SPECIMEN Ordering Facility: [facility] Address: [address] [place] [address] Performed By: #### 1 989-3 #### [facility] CLIA [id number] [address] [place] [address] [place] ALT [Catalytic activity/Vol] 25 U/L Normal 7-38 [facility] Comment on above: Order Comment: Speci men Type: BLOOD SPECIMEN Ordering Facility: [facility] Address: [address] [place] [address] Performed By: #### 1 989-3 #### [facility] CLIA [id number] [address] [place] [address] [place] Anion gap [Moles/Vol] 13 mmol/L Normal 9-18 [facility] Comment on above: Order Comment: Speci men Type: BLOOD SPECIMEN Ordering Facility: [facility] Address: [address] [place] [address] Performed By: #### 1 989-3 #### [facility] CLIA [id number] [address] [place] [address] [place] AST [Catalytic activity/Vol] 25 U/L Normal 13-35 [facility] Comment on above: Order Comment: Speci men Type: BLOOD SPECIMEN Ordering Facility: [facility] Address: [address] [place] [address] Performed By: #### 1 989-3 #### [facility] CLIA [id number] [address] [place] [address] [place] Bilirubin [Mass/Vol] 0.3 mg/dL Normal 0.2-1.3 [facility] Comment on above: Order Comment: Speci men Type: BLOOD SPECIMEN Ordering Facility: [facility] Address: [address] [place] [id number] Performed By: #### 1 989-3 #### [facility] CLIA [id number] [address] [place] [address] [place] Calcium [Mass/Vol] 9.4 mg/dL Normal 8.5-10.2 [facility] Comment on above: Order Comment: Speci men Type: BLOOD SPECIMEN Ordering Facility: [facility] Address: [address] [place], [place] [address] Performed By: #### 1 989-3 #### [facility] CLIA [id number] [facility] [address] [place] [address] [place] Chloride [Moles/Vol] 100 mmol/L Normal 97-105 [facility] Comment on above: Order Comment: Speci men Type: BLOOD SPECIMEN Ordering Facility: [facility] Address: [address] [place] [address] Performed By: #### 1 989-3 #### [facility] CLIA [id number] [address] [place] [address] [place] CO2 [Moles/Vol] 27 mmol/L Normal 22-30 [facility] Comment on above: Order Comment: Speci men Type: BLOOD SPECIMEN Ordering Facility: [facility] Address: [address] [place] [address] Performed By: #### 1 989-3 #### [facility] CLIA [id number] [address] [place] [address] [place] Creatinine [Mass/Vol] 0.72 mg/dL Normal 0.58-0.96 [facility] Comment on above: Order Comment: Speci men Type: BLOOD SPECIMEN Ordering Facility: [facility] Address: [address] [place] [address] Performed By: #### 1 989-3 #### [facility] CLIA [id number] [address] [place] [address] [place] Creatinine and Glomerular filtration rate.predicted panel (S/P/Bld) 94 mL/min/1.73m??? Normal >=60 [facility] Comment on above: Order Comment: Speci men Type: BLOOD SPECIMEN Ordering Facility: [facility] Address: [address] [place] [address] Result Comment: Carrie mated Glomerular Filtration Rate [...] GFR. Performed By: #### 1 989-3 #### [facility] CLIA [id number] [address] [place] [address] [place] Glucose [Mass/Vol] 146 mg/dL High 74-99 [facility] Comment on above: Order Comment: Speci men Type: BLOOD SPECIMEN Ordering Facility: [facility] Address: [address] [place] [address] Result Comment: The [place] [employer] (ADA) provides guidance for cutoff [...] Standards of Medical Care in Diabetes 2016, [place] [employer]. Diabetes Care. 2016.39(Suppl 1). Performed By: #### 1 989-3 #### [facility] CLIA [id number] [address] [place] [address] [place] Potassium [Moles/Vol] 3.9 mmol/L Normal 3.7-5.1 [facility] Comment on above: Order Comment: Mark Anthonyi men Type: BLOOD SPECIMEN Ordering Facility: [facility] Address: [address] [place] [address] Performed By: #### 1 989-3 #### [facility] CLIA [id number] [address] [place] [address] [place] Protein [Mass/Vol] 7.9 g/dL Normal 6.3-8.0 [facility] Comment on above: Order Comment: Speci men Type: BLOOD SPECIMEN Ordering Facility: [facility] Address: [address] [place] [address] Performed By: #### 1 989-3 #### [facility] CLIA [id number] [address] [place] [address] [place] Sodium [Moles/Vol] 140 mmol/L Normal 136-144 [facility] Comment on above: Order Comment: Speci men Type: BLOOD SPECIMEN Ordering Facility: [facility] Address: [address] [place] [address] Performed By: #### 1 989-3 #### [facility] CLIA [id number] [address] [place] [address] [place] Urea nitrogen [Mass/Vol] 16 mg/dL Normal 7-21 [facility] Comment on above: Order Comment: Speci men Type: BLOOD SPECIMEN Ordering Facility: [facility] Address: [address] [place] [address] Performed By: #### 1 989-3 #### [facility] CLIA [id number] [address] [place] [address] [place] ESR Westergren method (Bld) [Velocity]on 11-23-2023 ESR (Bld) [Velocity] 15 mm/h Normal 0-20 [facility] Comment on above: Order Comment: Speci men Type: BLOOD SPECIMEN Ordering Facility: [facility] Address: [address] [place] [address] Performed By: #### 5 8410-2, 4537-7 #### [facility] CLIA [id number] [address] [place] [address] [place] Vit B12 SerPl-mCncon 024 Cobalamin (Vitamin B12) [Mass/Vol] 1203 pg/mL Normal 232-1245 [facility] Comment on above: Order Comment: Speci men Type: BLOOD SPECIMEN Ordering Facility: [facility] Address: [address] [place] [address] Performed By: #### 1 989-3 #### [facility] CLIA [id number] [address] [place] [address] [place] Elysia 07-10-2023 BREEN Telephone (MARYSEULN) ELSA CATALAN ([id number]) 1960 F Date Time Provider Department 07/10/23 PEPE CARTER During your visit today, we recorded the following information about you: Lesli Navarro LPN 07/10/2023 2:46 PM Signed Received refill request from [facility]. Form placed on your desk for signature. Pepe Carter MD 07/10/2023 3:20 PM Signed Form completed. Please process accordingly. Scan copy into [facility]. Notify patient when above completed. Recall in [...] medication [Z79.899] (more content not included)... 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 When there are no FDA-approved or cleared tests available, and other criteria are met, FDA can make tests available under an emergency access mechanism called an Emergency Use Authorization (EUA). The EUA for this test is supported by the [employer] Operator of Health and Human Service's (HHS's) declaration [...] Performed By: #### F T3, TSH #### [facility] [address] [place] [address] Dr. Мария Horne INFLUENZA A AND B AGon 09-19 INFLUANEGH SEE BELOW Normal [facility] Comment on above: Result Comment: Nega tive for Flu A protein angiten. Infection due to Flu A cannot be ruled out. Flu A angiten in the sample may be below the detection limit of the test. Performed By: #### F T3, TSH #### [facility] [address] [place] [address] Dr. Мар[facility] SEE BELOW Normal [facility] Comment on above: Result Comment: Nega tive for Flu B protein antigen. Infection due to Flu B cannot be ruled out. Flu B antigen in the sample may be below the detection limit of the test. Performed By: #### F T3, TSH #### [facility] [address] [place] [address] Dr. Мария Horne INFLUENZA A AG Negative Normal NEGATIVE SEE COMMENT [facility] Comment on above: Performed By: #### F T3, TSH #### [facility] [address] [place] [address] Dr. Мария Horne INFLUENZA B AG Negative Normal NEGATIVE SEE COMMENT [facility] Comment on above: Performed By: #### F T3, TSH #### [facility] [address] [place] [address] Dr. Мария Horne INTERNAL CONTROLS Within Normal Limits Normal Wi thin Normal Limits [facility] Comment on above: Performed By: #### F T3, TSH #### [facility] [address] [place] [address] Dr. Мария Horne XR CHEST 2 Von [...] LATASHA HAYES Date: 2022-07-06 16:11 Normal [facility] FREE T3on 02-01-2022 FREE T3 2.58 pg/mlL Normal 2.18-3.98 [facility] Comment on above: Performed By: #### F T3, TSH #### [facility] [address] [place] [address] Dr. Мария Horne FREE T4on 02-01-2022 Free T4 [Mass/Vol] 1.25 ng/dL Normal 0.76-1.46 [facility] Comment on above: Performed By: #### F T4 #### [facility] [address] [place] [address] Dr. Мария Horne TSHon 02-01-2022 TSH 1.679 uIU/mL Normal 0.470-4.680 [facility] Comment on above: Performed By: #### F T3, TSH #### [facility] [address] [place] [address] Dr. Мария Horne TSH RANGE SEE BELOW Normal [facility] Comment on above: Result Comment: <0.3 4 UIU/ml HYPERTHYROID 0.34-5.60 UIU/ml EUTHYROID >5.60 UIU/ml HYPOTHYROID Performed By: #### F T3, TSH #### [facility] [address] [place] [address] Dr. Мария Horne AMYLASEon 01-13-2022 Amylase [Catalytic activity/Vol] 65 U/L Normal 25-115 [facility] Comment on above: Performed By: #### L IPA, JANEL #### [facility] [address] [place] [address] Dr. Мария Horne CBC AUTO DIFFon 01-13-2022 BASO # 0.1 103/ul Normal 0.0-0.1 [facility] Comment on above: Performed By: #### C BC #### [facility] [address] [place] [address] Dr. Мария Horne Basophils/100 WBC (Bld) 1.1 % Normal 0.2-2.0 [facility] Comment on above: Performed By: #### C BC #### [facility] [address] [place] [address] Dr. Мария Horne EO # 0.2 103/ul Normal 0.0-0.7 [facility] Comment on above: Performed By: #### C BC #### [facility] [address] [place] [address] Dr. Мария Horne Eosinophils/100 WBC (Bld) 2.8 % Normal 0.9-7.0 [facility] Comment on above: Performed By: #### C BC #### [facility] [address] [place] [address] Dr. Мария Horne Erythrocyte distribution width (RBC) [Ratio] 13.7 % Normal 11.0-15.0 [facility] Comment on above: Performed By: #### C BC #### [facility] [address] [place] [address] Dr. Мария Horne Hematocrit (Bld) [Volume fraction] 37.3 % Normal 36.0-48.0 [facility] Comment on above: Performed By: #### C BC #### [facility] [address] [place] [address] Dr. Мария Horne Hemoglobin (Bld) [Mass/Vol] 12.4 g/dL Normal 12.0-16.0 [facility] Comment on above: Performed By: #### C BC #### [facility] [address] [place] [address] Dr. Мария Horne IG # 0.01 10e3/ul Normal 0.00-0.03 [facility] Comment on above: Performed By: #### C BC #### [facility] [address] [place] [address] Dr. Мария Horne IG % 0.2 % Normal 0.0-0.5 [facility] Comment on above: Performed By: #### C BC #### [facility] [address] [place] [address] Dr. Мария Horne LYMPH # 2.0 103/ul Normal 1.2-3.8 [facility] Comment on above: Performed By: #### C BC #### [facility] [address] [place] [address] Dr. Мария Horne Lymphocytes/100 WBC (Bld) 33.2 % Normal 20.5-60.0 [facility] Comment on above: Performed By: #### C BC #### [facility] [address] [place] [address] Dr. Мария Horne MANUAL DIFF REQ NO Normal [facility] Comment on above: Performed By: #### C BC #### [facility] [address] [place] [address] Dr. Мария Horne MCH (RBC) [Entitic mass] 30.0 pg Normal 26.7-34.0 [facility] Comment on above: Performed By: #### C BC #### [facility] [address] [place] [address] Dr. Мария Horne MCHC (RBC) [Mass/Vol] 33.2 g/dL Normal 29.9-35.2 [facility] Comment on above: Performed By: #### C BC #### [facility] [address] [place] [address] Dr. Мария Horne MCV (RBC) [Entitic vol] 90.1 fL Normal 81.0-99.0 [facility] Comment on above: Performed By: #### C BC #### [facility] [address] [place] [address] Dr. Мария Horne MONO # 0.9 103/ul Critically high 0.3-0.8 [facility] Comment on above: Performed By: #### C BC #### [facility] [address] [place] [address] Dr. Мария Horne Monocytes/100 WBC (Bld) 14.1 % Critically high 1.7-12.0 [facility] Comment on above: Performed By: #### C BC #### [facility] [address] [place] [address] Dr. Мария Horne NEUT # 3.0 103/ul Normal 1.4-6.5 [facility] Comment on above: Performed By: #### C BC #### [facility] [address] [place] [address] Dr. Мария Horne Neutrophils/100 WBC (Bld) 48.6 % Normal 43.0-75.0 [facility] Comment on above: Performed By: #### C BC #### [facility] [address] [place], [place] [address] Dr. Мария Horne Platelet mean volume (Bld) [Entitic vol] 9.0 fL Critically low 9.5-13.5 [facility] Comment on above: Performed By: #### C BC #### [facility] [address] [place], [place] [address] Dr. Мария Horne PLT 263 103/ul Normal 150-450 [facility] Comment on above: Performed By: #### C BC #### [facility] [address] [place] [address] [address] Мария Horne RBC 4.14 106/ul Critically low 4.20-5.40 [facility] Comment on above: Performed By: #### C BC #### [facility] [address] [place] [address] [address] Мария Horne WBC 6.1 103/ul Normal 4.0-11.0 [facility] Comment on above: Performed By: #### C BC #### [facility] [address] [place] [address] ABDOMEN W CONon [...] STU SAMUEL Date: 2022-01-13 10:05 Normal [facility] LIPASEon 01-13-2022 Lipase [Catalytic activity/Vol] 167.0 U/L Normal 23.0-300.0 [facility] Comment on above: Performed By: #### L IPA, JANEL #### [facility] [address] [place] [address] Dr. Мария Horne PROF 14(COMP METB)on 022 Albumin [Mass/Vol] 3.6 g/dL Normal 3.4-5.0 [facility] Comment on above: Performed By: #### F T3, TSH #### [facility] [address] [place] [address] Dr. Мария Horne Albumin/Globulin [Mass ratio] 0.8 {ratio} Normal [facility] Comment on above: Performed By: #### F T3, TSH #### [facility] [address] [place] [address] Dr. Мария Horne ALP [Catalytic activity/Vol] 75 U/L Normal 46-116 [facility] Comment on above: Performed By: #### F T3, TSH #### [facility] [address] [place] [address] Dr. Мария Horne ALT [Catalytic activity/Vol] 46 U/L Normal 14-59 [facility] Comment on above: Performed By: #### F T3, TSH #### [facility] [address] [place] [address] Dr. Мария Horne Anion gap [Moles/Vol] 12.2 mmol/L Normal [facility] Comment on above: Performed By: #### F T3, TSH #### [facility] [address] [place] [address] Dr. Мария Horne AST [Catalytic activity/Vol] 37 U/L Normal 15-37 [facility] Comment on above: Performed By: #### F T3, TSH #### [facility] [address] [place] [address] Dr. Мария Horne Bilirubin [Mass/Vol] 0.4 mg/dL Normal 0.2-1.3 [facility] Comment on above: Performed By: #### F T3, TSH #### [facility] [address] [place] [address] Dr. Мария Hrone Calcium [Mass/Vol] 8.1 mg/dL Critically low 8.5-10.1 Th e [facility] Comment on above: Performed By: #### F T3, TSH #### [facility] [address] [place] [address] Dr. Мария Horne Chloride [Moles/Vol] 104 mmol/L Normal 98-107 [facility] Comment on above: Performed By: #### F T3, TSH #### [facility] [address] [place] [address] Dr. Мария Horne CO2 [Moles/Vol] 27.3 mmol/L Normal 22.0-30.0 [facility] Comment on above: Performed By: #### F T3, TSH #### [facility] [address] [place] [address] Dr. Мария Horne Creatinine [Mass/Vol] 0.73 mg/dL Normal 0.52-1.04 [facility] Comment on above: Performed By: #### F T3, TSH #### [facility] [address] [place] [address] Dr. Мария Horne EGFR-AF IVORIAN >60 Normal >=60 [facility] Comment on above: Performed By: #### F T3, TSH #### [facility] [address] [place] [address] Dr. Мария Horne EGFR-NON AF IVORIAN >60 Normal >=60 [facility] Comment on above: Performed By: #### F T3, TSH #### [facility] [address] [place] [address] Dr. Мария Horne Globulin (S) [Mass/Vol] 4.5 g/dL Normal [facility] Comment on above: Performed By: #### F T3, TSH #### [facility] [address] [place] [address] Dr. Мария Horne Glucose [Mass/Vol] 95 mg/dL Normal 74-106 [facility] Comment on above: Performed By: #### F T3, TSH #### [facility] [address] [address] [address] Мария Horne Potassium [Moles/Vol] 3.5 mmol/L Normal 3.4-5.0 [facility] Comment on above: Performed By: #### F T3, TSH #### [facility] [address] [address] [address] Мария Horne Protein [Mass/Vol] 8.1 g/dL Normal 6.1-8.2 [facility] Comment on above: Performed By: #### F T3, TSH #### [facility] [address] [address] [address] Маиря Horne Sodium [Moles/Vol] 140 mmol/L Normal 137-145 [facility] Comment on above: Performed By: #### F T3, TSH #### [facility] [address] [address] [address] Мария Horne Urea nitrogen [Mass/Vol] 15.0 mg/dL Normal 7.0-18.0 [facility] Comment on above: Performed By: #### F T3, TSH #### [facility] [address] [place] [address] Dr. Мария Horne Urea nitrogen/Creatinine [Mass ratio] 20.5 mg/mg Normal [facility] Comment on above: Performed By: #### F T3, TSH #### [facility] [address] [place] [address] Dr. Мария Horne US SINGLE QUAD RT [...] LATASHA HOWELL Date: 2021-12-31 10:44 Normal [facility] INSULINon 12-29-2021 Insulin 8.7 uIU/mL Normal 2.6-24.9 [facility] Comment on above: Performed By: #### I NSULIN #### [facility] [address] [place] [address] Dr. Мария Horne CBC AUTO DIFFon 12-28-2021 BASO # 0.1 103/ul Normal 0.0-0.1 [facility] Comment on above: Performed By: #### C BC #### [facility] [address] [place] [address] Dr. Мария Horne Basophils/100 WBC (Bld) 0.8 % Normal 0.2-2.0 [facility] Comment on above: Performed By: #### C BC #### [facility] [address] [place] [address] Dr. Мария Horne EO # 0.3 103/ul Normal 0.0-0.7 [facility] Comment on above: Performed By: #### C BC #### [facility] [address] [place] [address] Dr. Мария Horne Eosinophils/100 WBC (Bld) 3.2 % Normal 0.9-7.0 [facility] Comment on above: Performed By: #### C BC #### [facility] [address] [place] [address] Dr. Мария Horne Erythrocyte distribution width (RBC) [Ratio] 13.7 % Normal 11.0-15.0 [facility] Comment on above: Performed By: #### C BC #### [facility] [address] [place] [address] Dr. Мария Horne Hematocrit (Bld) [Volume fraction] 43.1 % Normal 36.0-48.0 [facility] Comment on above: Performed By: #### C BC #### [facility] [address] [place] [address] Dr. Мария Horne Hemoglobin (Bld) [Mass/Vol] 14.5 g/dL Normal 12.0-16.0 [facility] Comment on above: Performed By: #### C BC #### [facility] [address] [place] [address] Dr. Мария Horne IG # 0.02 10e3/ul Normal 0.00-0.03 [facility] Comment on above: Performed By: #### C BC #### [facility] [address] [place] [address] Dr. Мария Horne IG % 0.2 % Normal 0.0-0.5 [facility] Comment on above: Performed By: #### C BC #### [facility] [address] [place] [address] Dr. Мария Horne LYMPH # 3.0 103/ul Normal 1.2-3.8 [facility] Comment on above: Performed By: #### C BC #### [facility] [address] [place] [address] Dr. Мария Horne Lymphocytes/100 WBC (Bld) 35.8 % Normal 20.5-60.0 [facility] Comment on above: Performed By: #### C BC #### [facility] [address] [place] [address] Dr. Мария Horne MANUAL DIFF REQ NO Normal [facility] Comment on above: Performed By: #### C BC #### [facility] [address] [place] [address] Dr. Мария Horne MCH (RBC) [Entitic mass] 30.0 pg Normal 26.7-34.0 [facility] Comment on above: Performed By: #### C BC #### [facility] [address] [place] [address] Dr. Мария Horne MCHC (RBC) [Mass/Vol] 33.6 g/dL Normal 29.9-35.2 [facility] Comment on above: Performed By: #### C BC #### [facility] [address] [place] [address] Dr. Мария Horne MCV (RBC) [Entitic vol] 89.2 fL Normal 81.0-99.0 [facility] Comment on above: Performed By: #### C BC #### [facility] [address] [place] [address] Dr. Мария Horne MONO # 0.8 103/ul Normal 0.3-0.8 [facility] Comment on above: Performed By: #### C BC #### [facility] [address] [place] [address] Dr. Мария Horne Monocytes/100 WBC (Bld) 9.1 % Normal 1.7-12.0 [facility] Comment on above: Performed By: #### C BC #### [facility] [address] [place] [address] Dr. Мария Horne NEUT # 4.2 103/ul Normal 1.4-6.5 [facility] Comment on above: Performed By: #### C BC #### [facility] [address] [place] [address] Dr. Мария Horne Neutrophils/100 WBC (Bld) 50.9 % Normal 43.0-75.0 [facility] Comment on above: Performed By: #### C BC #### [facility] [address] [place] [address] Dr. Мария Horne Platelet mean volume (Bld) [Entitic vol] 9.8 fL Normal 9.5-13.5 [facility] Comment on above: Performed By: #### C BC #### [facility] [address] [place] [address] Dr. Мария Horne PLT 314 103/ul Normal 150-450 [facility] Comment on above: Performed By: #### C BC #### [facility] [address] [place] [address] Dr. Мария Horne RBC 4.83 106/ul Normal 4.20-5.40 [facility] Comment on above: Performed By: #### C BC #### [facility] [address] [place] [address] Dr. Мария Horne WBC 8.2 103/ul Normal 4.0-11.0 [facility] Comment on above: Performed By: #### C BC #### [facility] [address] [address] [address] Мария Horne FREE THYROXINE INDEX T7on FTI 1.38 Normal [facility] Comment on above: Performed By: #### F T3, TSH #### [facility] [address] [address] [address] Мария Horne T3U 32.0 % Normal 23.5-40.5 [facility] Comment on above: Performed By: #### F T3, TSH #### [facility] [address] [address] [address] Мария Horne T4 [Mass/Vol] 4.30 ug/dL Critically low 5.53-11.00 [facility] Comment on above: Performed By: #### F T3, TSH #### [facility] [address] [address] [address] Мария Horne GLYCOHEMOGLOBIN A1Con 2021 ADA RECOMMENDATION ADA THERAPEUTIC TARG ET 6.0 - 7.0 ACTION SUGGESTED > 7.0 Normal [facility] Comment on above: Performed By: #### F T3, TSH #### [facility] [address] [address] [address] Мария Horne Glucose [Mass/Vol] 252 mg/dL Normal [facility] Comment on above: Performed By: #### F T3, TSH #### [facility] [address] [address] [address] Мария Horne HbA1c (Bld) [Mass fraction] 10.4 % Critically high <=6.0 [facility] Comment on above: Performed By: #### F T3, TSH #### [facility] [address] [address] [address] Мария Horne IRONon 12-28-2021 Iron [Mass/Vol] 84.0 ug/dL Normal 37.0-170.0 [facility] Comment on above: Performed By: #### I JENNIFER #### [facility] [address] [address] [address] Мария Horne LIPID PROFILEon 12-28-2021 CHOL-HDL RATIO NORM SEE BELOW Normal [facility] Comment on above: Result Comment: 3.3 - 4.4 LOW RISK 4.4 - 7.1 AVERAGE RISK 7.1 - 11.0 MODERATE RISK >11.0 HIGH RISK Performed By: #### F T3, TSH #### [facility] [address] [place], [place] [address] Dr. Мария Horne Cholesterol [Mass/Vol] 217 mg/dL Critically high <=200 [facility] Comment on above: Performed By: #### F T3, TSH #### [facility] [address] [address] [address] Мария Horne Cholesterol in HDL [Mass/Vol] 47 mg/dL Normal 40-60 [facility] Comment on above: Performed By: #### F T3, TSH #### [facility] [address] [address] [address] Мария Horne Cholesterol in LDL [Mass/Vol] 126.6 mg/dL Normal [facility] Comment on above: Performed By: #### F T3, TSH #### [facility] [address] [address] [address] Мария Horne Cholesterol.total/C holesterol in HDL [Mass ratio] 4.6 {ratio} Normal [facility] Comment on above: Performed By: #### F T3, TSH #### [facility] [address] [address] [address] Мария Horne HDL NORMAL > or = 60 mg/dl - LO W CARDIOVASCULAR RISK <40 mg/dl - HIGH CARDIOVASCULAR RISK Normal [facility] Comment on above: Performed By: #### F T3, TSH #### [facility] [address] [address] [address] Мария Horne LDL CALC NORMAL SEE BELOW Normal [facility] Comment on above: Result Comment: <100 mg/dl OPTIMAL 100 - 129 mg/dl NEAR OR ABOVE OPTIMAL 130 - 159 mg/dl BORDERLINE HIGH 160 - 189 mg/dl HIGH >190 mg/dl VERY HIGH Performed By: #### F T3, TSH #### [facility] [address] [address] [address] Мария Horne Triglyceride [Mass/Vol] 217 mg/dL Critically high <=150 [facility] Comment on above: Performed By: #### F T3, TSH #### [facility] [address] [place] [address] Dr. Мария Horne VLDL CALC 43.4 mg/dL Normal [facility] Comment on above: Performed By: #### F T3, TSH #### [facility] [address] [place] [address] Dr. Мария Horne OCC BLD IMMUNO SCREENon 12-01 OCCULT BLOOD Negative Normal NEGATIVE [facility] Comment on above: Performed By: #### O BSCRN #### [facility] [address] [place] [address] Dr. Мария Horne PROF 14(COMP METB)on 022 Albumin [Mass/Vol] 3.8 g/dL Normal 3.4-5.0 [facility] Comment on above: Performed By: #### F T3, TSH #### [facility] [address] [place] [address] Dr. Мария Horne Albumin/Globulin [Mass ratio] 0.7 {ratio} Normal [facility] Comment on above: Performed By: #### F T3, TSH #### [facility] [address] [place] [address] Dr. Мария Horne ALP [Catalytic activity/Vol] 81 U/L Normal 46-116 [facility] Comment on above: Performed By: #### F T3, TSH #### [facility] [address] [place] [address] Dr. Мария Horne ALT [Catalytic activity/Vol] 36 U/L Normal 14-59 [facility] Comment on above: Performed By: #### F T3, TSH #### [facility] [address] [place] [address] Dr. Мария Horne Anion gap [Moles/Vol] 14.4 mmol/L Normal [facility] Comment on above: Performed By: #### F T3, TSH #### [facility] [address] [place] [address] Dr. Мария Horne AST [Catalytic activity/Vol] 26 U/L Normal 15-37 [facility] Comment on above: Performed By: #### F T3, TSH #### [facility] [address] [place] [address] Dr. Мария Horne Bilirubin [Mass/Vol] 0.4 mg/dL Normal 0.2-1.3 [facility] Comment on above: Performed By: #### F T3, TSH #### [facility] [address] [place] [address] Dr. Мария Horne Calcium [Mass/Vol] 8.4 mg/dL Critically low 8.5-10.1 [facility] Comment on above: Performed By: #### F T3, TSH #### [facility] [address] [place] [address] Dr. Мария Horne Chloride [Moles/Vol] 99 mmol/L Normal 98-107 [facility] Comment on above: Performed By: #### F T3, TSH #### [facility] [address] [place] [address] Dr. Мария Horne CO2 [Moles/Vol] 28.8 mmol/L Normal 22.0-30.0 [facility] Comment on above: Performed By: #### F T3, TSH #### [facility] [address] [place] [address] Dr. Мария Horne Creatinine [Mass/Vol] 0.80 mg/dL Normal 0.52-1.04 [facility] Comment on above: Performed By: #### F T3, TSH #### [facility] [address] [place] [address] Dr. Мария Horne EGFR-AF IVORIAN >60 Normal >=60 [facility] Comment on above: Performed By: #### F T3, TSH #### [facility] [address] [place] [address] Dr. Мария Horne EGFR-NON AF IVORIAN >60 Normal >=60 [facility] Comment on above: Performed By: #### F T3, TSH #### [facility] [address] [place] [address] Dr. Мария Horne Globulin (S) [Mass/Vol] 5.1 g/dL Normal [facility] Comment on above: Performed By: #### F T3, TSH #### [facility] [address] [place] [address] Dr. Мария Horne Glucose [Mass/Vol] 212 mg/dL Critically high 74-106 [facility] Comment on above: Performed By: #### F T3, TSH #### [facility] [address] [place] [address] Dr. Мария Horne Potassium [Moles/Vol] 3.2 mmol/L Critically low 3.4-5.0 [facility] Comment on above: Performed By: #### F T3, TSH #### [facility] [address] [place] [address] Dr. Мария Horne Protein [Mass/Vol] 8.9 g/dL Critically high 6.1-8.2 [facility] Comment on above: Performed By: #### F T3, TSH #### [facility] [address] [place] [address] Dr. Мария Horne Sodium [Moles/Vol] 139 mmol/L Normal 137-145 [facility] Comment on above: Performed By: #### F T3, TSH #### [facility] [address] [place] [address] Dr. Мария Horne Urea nitrogen [Mass/Vol] 14.0 mg/dL Normal 7.0-18.0 [facility] Comment on above: Performed By: #### F T3, TSH #### [facility] [address] [place] [address] Dr. Мария Horne Urea nitrogen/Creatinine [Mass ratio] 17.5 mg/mg Normal [facility] Comment on above: Performed By: #### F T3, TSH #### [facility] [address] [place] [address] Dr. Мария Horne TSHon 12-28-2021 TSH 115.875 uIU/mL Critically high 0.470-4.680 [facility] Comment on above: Performed By: #### F T3, TSH #### [facility] [address] [place] [address] Dr. Мария Horne TSH RANGE SEE BELOW Normal [facility] Comment on above: Result Comment: <0.3 4 UIU/ml HYPERTHYROID 0.34-5.60 UIU/ml EUTHYROID >5.60 UIU/ml HYPOTHYROID Performed By: #### F T3, TSH #### [facility] [address] [address] [address] Мария Horne Ambulatory Clinical Summaryo n 08-18-2021 Ambulatory Clinical Summary {[id number]}CD:[id number] Normal [facility] General Surgery Office/Clini c Noteon 08-18-2021 [...] (COVID-19) mRNA BNT-162b2 vax 07/01/2021 Recorded Normal [facility] Comment on above: Result Comment: Elec tronically Signed By: KEMAR EVANS, Lan Glass\Date and Time Signed: 08/18/21 16:32 EST Pathology Noteon 08-16-2021 Pathology Note [id number]#1.00C D:127 Normal [facility] Operative Reporton Operative Report [id number]#[id number] D:127 Normal [facility] Lab Reportson 08-09-2021 Lab Reports [id number]#[id number] D:127 Normal [facility] Provider Letter FTon 08-04 Provider Letter [facility] August 04, 2021 TAWANDA COOK, [address], [place] [address] Re: ELSA CATALAN Date of : 1960 Thank you for your referral of Elsa Catalan who was seen on July 30, 2021, for right mid-back mass. An excisional biopsy is planned. I have enclosed my consultation note for your review. I will be happy to follow Elsa. Sincerely, aLn Hough MD General Surgery [facility] Consent for Procedure/Surger yon 08-02-2021 Consent for Procedure/Surgery [id number] D:127 Normal [facility] General Surgery Office/Clini c Noteon 08-02-2021 General Surgery Office/Clinic Note CD:[id number] PqJhabQjZGglFy6cl0qqMN5 2wj8nEcKwFn1+XqjtHQ8YSD lQRSBo pR2mOLQDQuzLYtYqRD8qQnN HQy3JHNYaOWlANPaoBE5pFM H9wamptS4uGP3cJNYifVEcU f5aj3o5 QchdSs9jWk5AOx93nOEncSQ qNTEYC0spoM7pFG7ixILdD3 OtYCZmFr0YCFn2tYldzC7pw rT2Oap8 pNA1Yl02q4uqjcFrr6PiVfJ 5SWxmgGp3zMxgYDdqtD7aXd DpBAQKiN5fcJbrAO1eyM2zr nRhdGlv biI+RudtRXNaRym7vFEtJD4 9U3FoqKdlHqo8vOM9EZVtiW VfRIWqiQk5KNFMNUHSFPInc XBhdGli lPGwQPJhyxCpmlA5WbvNVGP zLzVlLql9L6xdEZH+Cjxib2 P3Sad0VEy5UVV2hQlzNIWej 250LWZh mLmryDqdfNIdc58vOQSlrFO fUsLso177CWUxmlP4ZMfgrC vmHnq5gJIdkKPej1lqwTa3H jEwMCUi PelCSUUzeJubl2KmMvtLDGr cv5ghlgDweQrsZXE9j5BlRY kbNCFuOHS2GbZhIM3+CgkJP GNvbCB2 KAfpE430AzDwwPTcx1timJu 3DfI8TRSbMs0CSZukX53fV9 JvdXA+Esm1nDCsLVc+CgkJP HRyPgoJ FNh7rKKns3G5eDQ7FuRfegA as1s7RJhjEMB0DkX3RZA0zT VhxL8txTfepeulrR0dThY+C gkJCTxk tBFsI3ydz7C5WnOvq5MggXr pzvNeVGOuXfIuy0uhThsjXK FcbC4bXUL3SqScLLMtwEWaO WUpIP2e zrLdwQSnEDDqKcDqK7Xuk17 xf3EcUHSYT9qYYzKkXDG2WR 4oVsHlGO6iJ4WdSET1KrAqY KV4Hbhi CDOyYi26B5S0FCYkXJr8KJJ zTpEeRlPso7U7tHT8VfLhTW Eiekw2OEGooGngUwmlxVKqT GNsYXNz QFEoOJMxR6Szt68geZXbwOY 4Ff44a6OjnzVjhZxfWZ4tJi 5taQ97HEiifAL1KWHktZX3D HRleHQt KLTfu2UlxUwjzlcsdO2nMII zeQ5wTqT+Y2clSKAyD10kjM fruE91HI1wpEDoAubsn1Jmf i9YVHbO QJLunyVvtQNvld1vPIMneMV ak724LZ17MfCgCPliw036UK 36wSziBB4wYCHNU6KTIE5SY UFTIiBk LOoaEZCbbxYqL9T5yUgfQON LK2Z2ZjH4DL9TTwUqCWIFN7 QsQuEbXr7WB7YZZTzXBnR1W kEiIGlk RNIoEBVmQylxK2PdGJX1ZI9 8MJMmFXR6IUEbJjOgHwKbTn G0SaT9Td7SJCkTBOFscoUnt SLmqt8g UOGwoFBjq638EK52sSLnxWA sXIGfjT33ZBLvFGQvKNJ6I0 4vjDXkjBM0gUR3FnJXMGCZQ kVfTUVB FoZgIRQ9DI10gPG1cJZ7BsA 4MjAzMDIzNTAiIGlkPSJfZG J2V3KcNFAkMKzfAp58QLIuP TC4FRZn FeA2DNTjMIuySbNkQtU2kEl egycoMT3qYAhmJI6rW5NfE4 DbQE96JPSgu77wKkUoalS1z HRhdGlv ddZdt6PwtATwxskgFJx8Wkg UKNu4U2Lcoi3ZMFqRZQ7dwR Y+PmjXCPn7YAq5BEOpCFMiW SJkZHNl R7Gdo31iFRTaPCKtFAIwTNT kNVNkFTvgi5IgeHRwMNV5GN h8KHJosmQas0KfZadxVmFwH DpzZWN0 yZ2qL40yFY3jBW0TCvUeYJW rApJqVeRucOP5Wp84LaeyAi QlXo8iPIJtVVUkZcLnHPE3P L30Hlei QiUeZOA3SPZfXDG6sEjaSGQ uAOWphI7mEiQ5hFf1Qr84p6 OsicAinCWbug7kBDDaFWT8y H3iUPrv cGxheSI+ACGdDU5xl7T7kHR 6UoDrjzIsw1ToN5n8VxIeg3 swCvB9ISx3EQNnH20iUGPmf 246IHVu ZGVybGluZTsiPkhQSSBTdGF bFavuo3Vocy40A3YvKL2+Cg lUXVl9ONu5XQXgJHJoQKYmK GVtcmNv bnRlbnQiIGRkOmNvbnRlbnR 2hZQlUMEAJGHQVZWLF78HPO OoTLOjJqQrLaUbMW4qOOQ8m ER1QxL5 NPHYVQFfIVv7UTBgRSS9Mr4 RHnVrPLETVVBVYjtgPVJ3Cg SyfHW2Fz86QSV2HVT8VJ0kH JS0AVLd OcmdMMOcZc32Uru5YWbwYrx hIoYaPfjGGQu4EZi5CQTyVS NzPSJkZGVtcmNvbnRlbnRpd GVtIGRk ldHrv9GlQbzrMuOdPMisoG4 ysV6dfKsgT8Y2yByvBAF1q3 AtcmlnaHQiIGRkOmNvbnRlb qK5mMNn BJUCUVZVCCKMB27JBSFyELI yItPewXn4jIyeNYAuAJtrPR CuV0L6IUHsMOoqSmS1IU51O zZjLTll ZJMvBCziKDv1WLO6GCTpSrQ 1nBsxhowmOJ6rHRgbSL0pB3 OfY4ZwOX51EKUks52wDcjbA Hn4JaqP ZInTZOIyydVjeFEqni5zCKB vaQAsz049BS17kMRiqBQbZC SkvI99LADeMGHhKFN8FbDnU mxvYXRp cmcieNjdZJ8rqF1oDLTvW3x 5TcYxWVjjb731VX00iCrxIG 0gSANDN2EYMW5BANZBYoSgE DplbnRp xQbzUF3xEdYsPC9zXqwmDTL 5W4LoJZB5OUZlPOSkFn70QR GrBXZ7BdA6CFDwGAC4XuKal B6pmaO9 NQN9NfD9uaSkiJQNr2T6kPP icGY7kZ9bGm22F6Nojl9XBt uTHKbdrHWoP3iam3I8HhLlW O5eD37r tWEjxUn6QV5cPYBiLJ8gsrE etEWxQTPlXrH4fdBsp1Q5sW 8nj7N0wAD5GxHrgP7ajEyux CIgZGQ6 T26nzZIhbNL9nUF7OvZOBXJ SXhAgMWWCVuBfMFN0HX24nD U4zFH5SuUoqKQ2Oh3qTWA4I RDjPZ9j VWYmNBQdTTFuNELaNn45TYG qEyS4DXDvA1OkECdieX3nKo BiNDLOhX1pfRzsNH5geP8tp nRhdGlv biI+CR2noWR+QdbPRDw8URz 2IGNsYXNzPSJkZGVtcmNvbn GfkeKvdZSkHJYqnjWck5PfU mxlIiBk PJnaxZ9foB3xyEbwQ0G9lXf kPCL8n1BhgqxqtGZsVGKtLk AdqpKnreF5aJOvXNSKSLIIO ABEM15A EPMaCTFkVpRtnOi7jIwuPQC iIGlkPSJfYTIyNTZlYjAtZm F5PW49XyY0VDBmOWfbSyIkC TNhYmMz MWT5TtP0rNhyxgplKL5zHQp wLY9oE4DjV3CjYL21MMNhu0 3tMnlnZLe4XijQHRuZFLCyk iBjbGFz nm0nKMXgoYOof800ED29eQI ugJQySVSufF20ERMvQFBnYD R9KaIuBlufWKSolpqreUkyE O9vhA6b RQIcX0k9AeWcTLznw689OA8 3sKkzMR0pONACN9VWVX0VPY TXXkJvGJapllYetUeeXF6wW uCbQM5j XzZmYjRjMjFkLWEzYmQtNGQ 3UJ0bUDDqJVKkEersYBB8GH KiXtWspF2eyqJ9GWH4BmM6r mFtaWNE v8A4oGAbqXC2yR1aIw01N1G exh3UToyIHPcwnVUmP4nkb8 S0KjRsIW9rP75ntQWjpCy8N O2mWSTp TS1qwnZztACdFSVfOdB6qqL gr2Z3mQ5pr1T8oRP2FwNaeU 8hkJgqeQOpSAU1O84jvJOqn PP8lCT0 IlBBVENBUkVfTUVBUyIgZGQ 4RD12eRY4kKQ8CdRdaUT5Ho 0kGMCxVMR9WJ9uY7LlNSMcV zQtYTll FO85CeqcYVOzEwg4DLBtVRy kyG7eTgDmWFANdH8wsDfyCB 2vuG5nfvUzfCuwtzC+PC9ka XY+CgoJ VMm0GOz5SJXzSTPtSETwPFT tcmNvbnRlbnRpdGVtIGRkcm Lsr6OpMzxiBnLhNDelpG1wd B8qzGve E2N0sAmlXFB2u0GjkcwaiOJ mCHCiEeZelyVzerT9bHHoDE MELSNWIQDGU49WKTWcCQLjS mVudGl0 eWlkPSIiIGlkPSJfOTRiNzB eTPNaCOUyGZ39HXb5EZTxMV DlEuHwRQLzAST3HFWlFaD9b Wxuczpk NJ5yFVinZA4fC3StT0ChUF6 3JVSxw09zMcfnIMr1KmdYZI cYLGVwskKyeSUhgy6xZKDhc XCfo027 ZL84xRWytDOcDDFgfU16LLY oFPZmWVC5KuFqWuqrQOSstr pmbLspBC8aqS0rSPYpO8p4C iBkZDpj m123VW12qHonRR3bZZYCK5D UNC4QQBPFHhLuWRjpplEceP xpCM9dTpSiJB5lCcnrPJE8L zZmLTE5 QXcnCUOzHq0bJaLyDWP6SPs vGfufMeF0WYNyhP7lcbT4TO K3UzH5asEisXWEy2L0oGQgq CI1mC4w Hf78Z9Vejv8MQpmKTJieuRK rS8ssl6O0AoDlOI3hH26uqB TueQd4LX8iNJUtVQ7chdFzv GUiIGRk LkR6eeXyd9C0fC0fk2R8hYM 6AjPkgD7bcZwqtTDwBDJ2L5 2jeGHzbPW0kSM9WhXTMUKPD kVfTUVB CjOjPZD6FO98iDN2vIX9EiF ytYJ7Gy45FIFrDQVrTP1xGL JnGBQ7DGEsLDI5Tz9xNfJlN OE5YbFv HAeiRAnjoF9xWaWfTWBCnS7 guLtmNU1wqY7ndaUtxBneew I+RF4hdBZ+DfbVLPq6LPh0D GNsYXNz PSJkZGVtcmNvbnRlbnRpdGV [id number] (more content not included)... [facility] Comment on above: Result Comment: Elec tronically Signed By: KEMAR EVANS, Lan Glass\Date and Time Signed: 08/02/21 14:26 EDT Pre-Certification Formon Pre-Certification Form [id number] D:127 [facility] Ambulatory Clinical Summaryo n 07-30-2021 Ambulatory Clinical Summary {[id number] [facility] XR ELBOW GENERAL 2V AP/LAT L Ton 07-26-2021 [facility] Physician Referralon 021 Physician Referral [id number] D:127 [facility] CARDIAC STRESS/REST INJE CTIONon 05-25-2021 [facility] CARDIAC STRESS/REST INJECTION Patient Name: ELSA CATALAN STUDY: MYOCARDIAL PERFUSION STRESS TEST WITH LEXISCAN Performing facility: [facility], [address] [place] [address], [address] [id number] [facility] Provider: Sarina Bird DO, [facility] PCP: Dr. Anant Johnson Supervising provider: Sarina Palomino MD, [facility] INDICATION: Chest Pain; HISTORY: Gender: F; Age: 60 y/o ; Height: 0 cm; Weight: 62.6950522 kg. High Cholesterol; Diabetes; HTN; SOB; Denies smoking. COMPARISON: No comparison. ACCESSION NUMBER(S): [id number]; [id number]; [id number] ORDERING CLINICIAN: ASIM BIRD TECHNIQUE: ONE DAY [...] Electronically signed by: DAYANARA AYALA MD Normal [facility] ECG 12 lead ECGon 05-13-2021 ECG 12 lead ECG [facility] [place] [address] [place] [address] Electrocardiograph Report Signed Patient: Elsa Catalan MR#: [id number] 0 : 1960 Acct:[id number] Age/Sex: 60 / F ADM Date: 05/11/21 Loc: Room: [address] [place] [address] Type: ADM INOo Attending Dr: Obdulia Garcia [...] Zamora MD 05/13/21922 Signed By: 05/13/21 1156 [facility] Glucose Poct Glucometerson 0 05-13-2021 Commemt1 Glu2: Cleaned Meter [facility] Comment on above: Result Comment: PERF ORMED BY: [place] [address] PATHOLOGIST COUNTY MANAGER RAMYA NEVES M.D. Performed By: #### H S TROP, CMP, CBC, MG #### [facility] [address] [place] [address] Glucose [Mass/Vol] 149 mg/dL Normal [facility] Comment on above: Result Comment: [facility] Glucose Reference Range is dependent on time and content of last meal. Glucose of more than 200 mg/dL in a nonstressed, ambulatory subject supports the diagnosis of Diabetes Mellitus. Performed By: #### H S TROP, CMP, CBC, MG #### [facility] [address] [place] [address] [place] Glucose [Mass/Vol] 89 mg/dL Normal [facility] Comment on above: Result Comment: [facility] Glucose Reference Range is dependent on time and content of last meal. Glucose of more than 200 mg/dL in a nonstressed, ambulatory subject supports the diagnosis of Diabetes Mellitus. PERFORMED BY: [address] [place] [address] PATHOLOGIST COUNTY MANAGER RAMYA NEVES M.D. Performed By: #### H S TROP, CMP, CBC, MG #### [address] Basic Metabolic Panelon 05-02 Calcium [Mass/Vol] 8.0 mg/dL Low 8.2-10.2 [facility] Comment on above: Performed By: #### B MP, MG, CBC #### [address] Chloride [Moles/Vol] 100 mmol/L Normal 95-114 [facility] Comment on above: Performed By: #### B MP, MG, CBC #### [address] CO2 [Moles/Vol] 19.9 mmol/L Low 22.0-30.0 [facility] Comment on above: Performed By: #### B MP, MG, CBC #### [address] Creatinine [Mass/Vol] 0.65 mg/dL Normal 0.44-1.03 [facility] Comment on above: Performed By: #### B MP, MG, CBC #### [address] Creatinine Clr Calc Pharmacy 85.09 Normal [facility] Comment on above: Performed By: #### B MP, MG, CBC #### [address] Estimated GFR ( [place] > 60 [facility] Comment on above: Result Comment: GFR estimated reference range: According to KDOQI guidelines, <60 ml/min/1.73m2 is sufficient to diagnose a patient with chronic kidney disease. Performed By: #### B MP, MG, CBC #### [address] Estimated GFR (Non- Am > 60 Normal [facility] Comment on above: Performed By: #### B MP, MG, CBC #### [facility] [address] Glucose [Mass/Vol] 312 mg/dL High 70-100 [facility] Comment on above: Result Comment: [place] Glucose Reference Range is dependent on time and content of last meal. Glucose of more than 200 mg/dL in a nonstressed, ambulatory subject supports the diagnosis of Diabetes Mellitus. ADA recommended reference range Performed By: #### B MP, MG, CBC #### [facility] [address] Potassium [Moles/Vol] 3.6 mmol/L Normal 3.5-5.1 [facility] Comment on above: Performed By: #### B MP, MG, CBC #### [facility] [address] Sodium [Moles/Vol] 133 mmol/L Low 136-146 [facility] Comment on above: Performed By: #### B MP, MG, CBC #### [facility] [address] Urea nitrogen [Mass/Vol] 16 mg/dL Normal 9-23 [facility] Comment on above: Performed By: #### B MP, MG, CBC #### [facility] [address] COVID-19 FRon 05-12-2021 SARS-CoV-2 (COVID-19) RNA ISAC+probe Ql (Unsp spec) Negative Normal Negative [facility] Comment on above: Order Comment: Healt hcare Worker?: N Result Comment: Testing for SARS-CoV-2 by RT-PCR This test was developed and its performance characteristics determined by [employer], [employer] and validated at the [facility]. This test has not been FDA [...] is terminated or revoked sooner. PERFORMED BY: [place] [address] PATHOLOGIST COUNTY MANAGER RAMYA NEVES M.D. Performed By: #### H S TROP, CMP, CBC, MG #### [address] angio chest PE protocolon 05-12-2021 CT angio chest PE protocol [facility] [place] [address] [place] [address] CT Scan Report Signed Patient: Elsa Catalan MR#: [id number] 0 : 1960 Acct:[id number] Age/Sex: 60 / F ADM Date: 05/11/21 Loc: Room: [address] [place] [address] Type: ADM INOo Attending Dr: Obdulia Garcia [...] Matt Beckham M.D.05/12/2021 1:40 PM Dictation Location: [place] [address] Transcribed By: [facility] 05/12/21 1340 Dictated By: Matt Beckham DO 05/12/21 1333 Signed By: 05/12/21 1340 Normal [facility] Complete Blood Count Auto Di ffon 05-12-2021 Basophils (Bld) [#/Vol] 0.0 10*3/uL Normal 0.0-0.2 [facility] Comment on above: Result Comment: PERF ORMED BY: [place] [address] PATHOLOGIST COUNTY MANAGER RAMYA NEVES M.D. Performed By: #### B MP, MG, CBC #### [address] Basophils/100 WBC (Bld) 0.4 % Normal . [facility] Comment on above: Performed By: #### B MP, MG, CBC #### [facility] [address] [place] [address] Eosinophils (Bld) [#/Vol] 0.0 10*3/uL Normal 0.0-0.45 [facility] Comment on above: Performed By: #### B MP, MG, CBC #### [address] Eosinophils/100 WBC (Bld) 0.0 % Normal . [facility] Comment on above: Performed By: #### B MP, MG, CBC #### [address] Erythrocyte distribution width (RBC) [Ratio] 16.3 % High 11.9-15.3 [facility] Comment on above: Performed By: #### B MP, MG, CBC #### [address] Hematocrit (Bld) [Volume fraction] 36.4 % Normal 34.0-46.4 [facility] Comment on above: Performed By: #### B MP, MG, CBC #### [address] Hemoglobin (Bld) [Mass/Vol] 12.1 g/dL Normal 11.8-15.4 [facility] Comment on above: Performed By: #### B MP, MG, CBC #### [address] Lymphocytes (Bld) [#/Vol] 2.0 10*3/uL Normal 1.00-4.8 [facility] Comment on above: Performed By: #### B MP, MG, CBC #### [address] Lymphocytes/100 WBC (Bld) 16.8 % Normal . [facility] Comment on above: Performed By: #### B MP, MG, CBC #### [address] MCH (RBC) [Entitic mass] 30.1 pg Normal 24.7-34.3 [facility] Comment on above: Performed By: #### B MP, MG, CBC #### [address] MCV (RBC) [Entitic vol] 90.7 fL Normal 80-100 [facility] Comment on above: Performed By: #### B MP, MG, CBC #### [address] Mean Corpuscular HGB Conc 33.2 g/dL Normal 32.0-35.0 [facility] Comment on above: Performed By: #### B MP, MG, CBC #### [address] Monocytes (Bld) [#/Vol] 0.8 10*3/uL Normal 0.0-0.8 [facility] Comment on above: Performed By: #### B MP, MG, CBC #### [place] [address] [place] Monocytes/100 WBC (Bld) 6.8 % Normal . [facility] Comment on above: Performed By: #### B MP, MG, CBC #### [facility] [address] Neutrophils (Bld) [#/Vol] 8.9 10*3/uL High 1.8-7.7 [facility] Comment on above: Performed By: #### B MP, MG, CBC #### [facility] [address] Neutrophils/100 WBC (Bld) 76.0 % Normal . [facility] Comment on above: Performed By: #### B MP, MG, CBC #### [facility] [address] Nucleated RBC/100 WBC (Bld) [Ratio] 0.0 % Normal 0-0.5 [facility] Comment on above: Performed By: #### B MP, MG, CBC #### [facility] [address] Platelet mean volume (Bld) [Entitic vol] 7.5 fL Normal 6.3-10.7 [facility] Comment on above: Performed By: #### B MP, MG, CBC #### [place] [address] [place] Platelets (Bld) [#/Vol] 372 10*3/uL Normal 150-450 [facility] Comment on above: Performed By: #### B MP, MG, CBC #### [facility] [address] [place] [address] [place] RBC (Bld) [#/Vol] 4.01 10*6/uL Normal 3.60-5.00 [facility] Comment on above: Performed By: #### B MP, MG, CBC #### [place] [address] [place] WBC (Bld) [#/Vol] 11.7 10*3/uL High 4.5-11.0 [facility] Comment on above: Performed By: #### B MP, MG, CBC #### [place] [address] [place] Basophils (Bld) [#/Vol] 0.1 10*3/uL Normal 0.0-0.2 [facility] Comment on above: Result Comment: PERF ORMED BY: [place] [address] PATHOLOGIST COUNTY MANAGER RAMYA NEVES M.D. Performed By: #### H S TROP, CMP, CBC, MG #### [address] Basophils/100 WBC (Bld) 0.8 % Normal . [facility] Comment on above: Performed By: #### H S TROP, CMP, CBC, MG #### [address] Eosinophils (Bld) [#/Vol] 0.0 10*3/uL Normal 0.0-0.45 [facility] Comment on above: Performed By: #### H S TROP, CMP, CBC, MG #### [address] Eosinophils/100 WBC (Bld) 0.0 % Normal . [facility] Comment on above: Performed By: #### H S TROP, CMP, CBC, MG #### [facility] [address] [place] [address] Erythrocyte distribution width (RBC) [Ratio] 16.7 % High 11.9-15.3 [facility] Comment on above: Performed By: #### H S TROP, CMP, CBC, MG #### [facility] [address] [place] [address] Hematocrit (Bld) [Volume fraction] 36.7 % Normal 34.0-46.4 [facility] Comment on above: Performed By: #### H S TROP, CMP, CBC, MG #### [facility] [address] [place] [address] Hemoglobin (Bld) [Mass/Vol] 12.1 g/dL Normal 11.8-15.4 [facility] Comment on above: Performed By: #### H S TROP, CMP, CBC, MG #### [address] Lymphocytes (Bld) [#/Vol] 1.0 10*3/uL Normal 1.00-4.8 [facility] Comment on above: Performed By: #### H S TROP, CMP, CBC, MG #### [address] Lymphocytes/100 WBC (Bld) 9.3 % Normal . [facility] Comment on above: Performed By: #### H S TROP, CMP, CBC, MG #### [address] MCH (RBC) [Entitic mass] 30.5 pg Normal 24.7-34.3 [facility] Comment on above: Performed By: #### H S TROP, CMP, CBC, MG #### [address] MCV (RBC) [Entitic vol] 92.2 fL Normal 80-100 [facility] Comment on above: Performed By: #### H S TROP, CMP, CBC, MG #### [address] Mean Corpuscular HGB Conc 33.1 g/dL Normal 32.0-35.0 [facility] Comment on above: Performed By: #### H S TROP, CMP, CBC, MG #### [address] Monocytes (Bld) [#/Vol] 0.1 10*3/uL Normal 0.0-0.8 [facility] Comment on above: Performed By: #### H S TROP, CMP, CBC, MG #### [address] Monocytes/100 WBC (Bld) 1.1 % Normal . [facility] Comment on above: Performed By: #### H S TROP, CMP, CBC, MG #### [address] Neutrophils (Bld) [#/Vol] 9.6 10*3/uL High 1.8-7.7 [facility] Comment on above: Performed By: #### H S TROP, CMP, CBC, MG #### [address] Neutrophils/100 WBC (Bld) 88.8 % Normal . [facility] Comment on above: Performed By: #### H S TROP, CMP, CBC, MG #### [address] Nucleated RBC/100 WBC (Bld) [Ratio] 0.0 % Normal 0-0.5 [facility] Comment on above: Performed By: #### H S TROP, CMP, CBC, MG #### [address] Platelet mean volume (Bld) [Entitic vol] 7.7 fL Normal 6.3-10.7 [facility] Comment on above: Performed By: #### H S TROP, CMP, CBC, MG #### [address] Platelets (Bld) [#/Vol] 358 10*3/uL Normal 150-450 [facility] Comment on above: Performed By: #### H S TROP, CMP, CBC, MG #### [address] RBC (Bld) [#/Vol] 3.98 10*6/uL Normal 3.60-5.00 [facility] Comment on above: Performed By: #### H S TROP, CMP, CBC, MG #### [address] WBC (Bld) [#/Vol] 10.8 10*3/uL Normal 4.5-11.0 [facility] Comment on above: Performed By: #### H S TROP, CMP, CBC, MG #### [address] Comprehensive Metabolic Pane le 05-12-2021 Albumin [Mass/Vol] 3.2 g/dL Normal 3.2-5.5 [facility] Comment on above: Performed By: #### H S TROP, CMP, CBC, MG #### [facility] [address] Albumin/Globulin [Mass ratio] 0.7 {ratio} Normal [facility] Comment on above: Performed By: #### H S TROP, CMP, CBC, MG #### [facility] [address] ALP [Catalytic activity/Vol] 69 U/L Normal 32-92 [facility] Comment on above: Performed By: #### H S TROP, CMP, CBC, MG #### [facility] [address] ALT [Catalytic activity/Vol] 21 U/L Normal 10-60 [facility] Comment on above: Performed By: #### H S TROP, CMP, CBC, MG #### [facility] [address] [place] [address] AST [Catalytic activity/Vol] 20 U/L Normal 10-42 [facility] Comment on above: Performed By: #### H S TROP, CMP, CBC, MG #### [facility] [address] [place] [address] Bilirubin [Mass/Vol] 0.6 mg/dL Normal 0.3-1.2 [facility] Comment on above: Performed By: #### H S TROP, CMP, CBC, MG #### [facility] [address] [place] [address] Calcium [Mass/Vol] 8.1 mg/dL Low 8.2-10.2 [facility] Comment on above: Performed By: #### H S TROP, CMP, CBC, MG #### [facility] [address] [place] [address] [place] Chloride [Moles/Vol] 100 mmol/L Normal 95-114 [facility] Comment on above: Performed By: #### H S TROP, CMP, CBC, MG #### [facility] [address] [place] [address] [place] CO2 [Moles/Vol] 17.0 mmol/L Low 22.0-30.0 [facility] Comment on above: Performed By: #### H S TROP, CMP, CBC, MG #### [address] Creatinine [Mass/Vol] 0.73 mg/dL Normal 0.44-1.03 [facility] Comment on above: Performed By: #### H S TROP, CMP, CBC, MG #### [address] Creatinine Clr Calc Pharmacy 75.76 [facility] Comment on above: Performed By: #### H S TROP, CMP, CBC, MG #### [address] Estimated GFR ( [place] > 60 [facility] Comment on above: Result Comment: GFR estimated reference range: According to KDOQI guidelines, <60 ml/min/1.73m2 is sufficient to diagnose a patient with chronic kidney disease. Performed By: #### H S TROP, CMP, CBC, MG #### [address] Estimated GFR (Non- Am > 60 [facility] Comment on above: Performed By: #### H S TROP, CMP, CBC, MG #### [address] Globulin (S) [Mass/Vol] 4.5 g/dL [facility] Comment on above: Performed By: #### H S TROP, CMP, CBC, MG #### [address] Glucose [Mass/Vol] 407 mg/dL High 70-100 [facility] Comment on above: Result Comment: [place] Glucose Reference Range is dependent on time and content of last meal. Glucose of more than 200 mg/dL in a nonstressed, ambulatory subject supports the diagnosis of Diabetes Mellitus. ADA recommended reference range Performed By: #### H S TROP, CMP, CBC, MG #### [facility] [address] [place] [address] Potassium [Moles/Vol] 3.7 mmol/L Normal 3.5-5.1 [facility] Comment on above: Performed By: #### H S TROP, CMP, CBC, MG #### [facility] [address] Protein [Mass/Vol] 7.7 g/dL Normal 6.1-7.9 [facility] Comment on above: Performed By: #### H S TROP, CMP, CBC, MG #### [facility] [address] Sodium [Moles/Vol] 132 mmol/L Low 136-146 [facility] Comment on above: Performed By: #### H S TROP, CMP, CBC, MG #### [facility] [address] Urea nitrogen [Mass/Vol] 17 mg/dL Normal 9-23 [facility] Comment on above: Performed By: #### H S TROP, CMP, CBC, MG #### [address] ECG 12 lead ECGon 05-12-2021 ECG 12 lead ECG [facility] [place] [address] [place] [address] Electrocardiograph Report Signed Patient: Elsa Catalan MR#: [id number] 0 : 1960 Acct:[id number] Age/Sex: 60 / F ADM Date: 05/11/21 Loc: Room: [address] [place] [address] Type: ADM INOo Attending Dr: Obdulia Garcia [...] longer evident in Lateral leads Confirmed by ONEMY ZAMORA MD ([id number]) on 05/12/2021 7:03:01 PM Referred By: Electronically Signed By:NOEMY ZAMORA MD Transcribed By: THIAGO Dictated By: Noemy Zamora MD 05/12/21 0846 Signed By: 05/12/21 1903 [facility] ECG 12 lead ECG [facility] Main [place] [id number] Electrocardiograph Report Signed Patient: Elsa Catalan MR#: [id number] 0 : 1960 Acct:[id number] Age/Sex: 60 / F ADM Date: 05/11/21 Loc: 3T Room: [address] [place] [address] Type: ADM INOo Attending Dr: Obdulia Garcia [...] DO 05/11/21 2247 Signed By: 05/12/21 1051 [facility] ECH echo transthoracicon ECH echo transthoracic [facility] Main [address] [address] Echocardiogram Signed Patient: Elsa Catalan MR#: [id number] 0 : 1960 Acct:[id number] Age/Sex: 60 / F ADM Date: 05/11/21 Loc: 3T Room: [address] [place] [address] Type: ADM INOo Attending Dr: Obdulia Garcia MD Ordering Provider: Geri Angel MD Date of Service: 05/11/21 [facility] echo transthoracic: CP Copies to: MD Lan [...] DO 05/12/21 1020 Signed By: 05/12/21 1203 [facility] Glucose Poct Glucometerson 0 05-12-2021 Glucose [Mass/Vol] 188 mg/dL Normal [facility] Comment on above: Result Comment: [place] om Glucose Reference Range is dependent on time and content of last meal. Glucose of more than 200 mg/dL in a nonstressed, ambulatory subject supports the diagnosis of Diabetes Mellitus. PERFORMED BY: [place] [address] PATHOLOGIST COUNTY MANAGER RAMYA NEVES M.D. Performed By: #### H S TROP, CMP, CBC, MG #### [facility] [address] [place] [address] Commemt1 Glu2: Cleaned Meter [facility] Comment on above: Result Comment: PERF ORMED BY: [place] [address] PATHOLOGIST COUNTY MANAGER RAMYA NEVES M.D. Performed By: #### H S TROP, CMP, CBC, MG #### [facility] [address] [place] [address] Glucose [Mass/Vol] 138 mg/dL Normal [facility] Comment on above: Result Comment: [place] om Glucose Reference Range is dependent on time and content of last meal. Glucose of more than 200 mg/dL in a nonstressed, ambulatory subject supports the diagnosis of Diabetes Mellitus. Performed By: #### H S TROP, CMP, CBC, MG #### [facility] [address] [place] [address] Commemt1 [facility] Comment on above: Result Comment: Glu2 : Will Repeat Test Performed By: #### H S TROP, CMP, CBC, MG #### [facility] [address] [place] [address]/[facility] Comment on above: Performed By: #### H S TROP, CMP, CBC, MG #### [facility] [address] [place] [address] Commemt3 Cleaned Meter [facility] Comment on above: Result Comment: PERF ORMED BY: [place] [address] PATHOLOGIST COUNTY MANAGER RAMYA NEVES M.D. Performed By: #### H S TROP, CMP, CBC, MG #### [address] Glucose [Mass/Vol] 400 mg/dL Off scale high [facility] Comment on above: Result Comment: [facility] Glucose Reference Range is dependent on time and content of last meal. Glucose of more than 200 mg/dL in a nonstressed, ambulatory subject supports the diagnosis of Diabetes Mellitus. Performed By: #### H S TROP, CMP, CBC, MG #### [facility] [address] [place] [address] Commemt1 Glu2: Cleaned Meter [facility] Comment on above: Performed By: #### H S TROP, CMP, CBC, MG #### [facility] [address] [place] [address] Commemt2 Will Repeat Test [facility] Comment on above: Performed By: #### H S TROP, CMP, CBC, MG #### [facility] [address] [place] [address] NOT[address]/[facility] Comment on above: Result Comment: PERF ORMED BY: [place] [address] PATHOLOGIST COUNTY MANAGER RAMYA NEVES M.D. Performed By: #### H S TROP, CMP, CBC, MG #### [address] Glucose [Mass/Vol] 415 mg/dL Off scale high [facility] Comment on above: Result Comment: [facility] Glucose Reference Range is dependent on time and content of last meal. Glucose of more than 200 mg/dL in a nonstressed, ambulatory subject supports the diagnosis of Diabetes Mellitus. Performed By: #### H S TROP, CMP, CBC, MG #### [facility] [address] [place] [address] [place] Magnesiumon 05-12-2021 Magnesium [Mass/Vol] 1.7 mg/dL Normal 1.6-2.6 [facility] Comment on above: Result Comment: PERF ORMED BY: [place] [address] PATHOLOGIST COUNTY MANAGER RAMYA NEVES M.D. Performed By: #### B MP, MG, CBC #### [facility] [address] [place] [address] Magnesium [Mass/Vol] 1.7 mg/dL Normal 1.6-2.6 [facility] Comment on above: Result Comment: PERF ORMED BY: [place] [address] PATHOLOGIST COUNTY MANAGER RAMYA NEVES M.D. Performed By: #### H S TROP, CMP, CBC, MG #### [facility] [address] [place] [address] [place] Troponin I High Sensitivityo n 05-12-2021 Troponin I High Sensitivity 247 pg/mL Off scale high 0-15 [facility] Comment on above: Result Comment: PERF ORMED BY: [facility] [address] [place] [address] PATHOLOGIST COUNTY MANAGER RAMYA NEVES M.D. Performed By: #### H S TROP #### [facility] [address] [place] [address] Troponin I High Sensitivity 220 pg/mL Off scale high 0-15 [facility] Comment on above: Result Comment: PERF ORMED BY: [place] [address] PATHOLOGIST COUNTY MANAGER RAMYA NEVES M.D. Performed By: #### H S TROP #### [facility] [address] [place] [address] Troponin I High Sensitivity 237 pg/mL Off scale high 0-15 [facility] Comment on above: Result Comment: Resu lts called at 0131 on 05/12/21 PERFORMED BY: [place] [address] PATHOLOGIST COUNTY MANAGER RAMYA NEVES M.D. Performed By: #### H S TROP, CMP, CBC, MG #### [facility] [address] [place], [place] [id number] [facility] XR chest 1V portableon 05-12 XR chest 1V portable [facility] [place] [address] [place] [address] XRay Report Signed Patient: Elsa Catalan MR#: [id number] 0 : 1960 Acct:[id number] Age/Sex: 60 / F ADM Date: 05/11/21 Loc: Room: [address] [place] [address] Type: ADM IN Attending Dr: Obdulia Garcia [...] Adrienne Fermin M.D.05/12/2021 9:29 AM Dictation Location: [place] [address] Transcribed By: [facility] 05/12/21928 Dictated By: Adrienne Fermin MD 05/12/21927 Signed By: 05/12/21928 Normal [facility] XR lumbar spine 6V w bending on 11-27-2020 XR lumbar spine 6V w bending [facility] [place] [address] [place] [address] XRay Report Signed Patient: Elsa Catalan MR#: [id number] 0 : 1960 Acct:[id number] Age/Sex: 60 / F ADM Date: 11/27/20 Loc: [place] Room: Type: [facility] Attending Dr: Sam Rothman MD Ordering Provider: Sam Rothman MD Date of Service: 11/27/20 XR/XR lumbar spine 6V w bending: Radiculopathy, lumbar region Copies to: Sam Rothman MD CLINICAL INFORMATION: Low back pain radiating down to the right leg for years. No known injury. LUMBAR SPINE WITH FLEXION AND EXTENSION AND LATERAL BENDING: COMPARISON: 10/19/2020 from [facility] FINDINGS: Standing AP, lateral, flexion, extension, with [...] Felipe Watson M.D.11/27/2020 11:48 AM Dictation Location: [place] [address] Transcribed By: [facility] 11/27/20 1148 Dictated By: Felipe Watson MD 11/27/20 1139 Signed By: 11/27/20 1148 Normal [facility] POC Glucoseon 04-08-2020 Glucose [Mass/Vol] 139 mg/dL High 65 - 99 mg/dL [facility] Interpretation and review of laboratory results Abnormal [facility] Glucose [Mass/Vol] 77 mg/dL 65 - 99 mg/dL [facility] Interpretation and review of laboratory results Normal [facility] Glucose [Mass/Vol] 83 mg/dL 65 - 99 mg/dL [facility] Interpretation and review of laboratory results Normal [facility] SCAN OTHER ORDERSon 04-08-20 Ordered by an unspecified provider. [facility] Basic Metabolic Panelon 10-02 Anion gap [Moles/Vol] 19 mmol/L 10 - 20 mmol/L [facility] Calcium [Mass/Vol] 8.1 mg/dL Low 8.4 - 10. 2 mg/dL [facility] Chloride [Moles/Vol] 96 mmol/L Low 98 - 108 mmol/L [facility] Creatinine [Mass/Vol] 0.71 mg/dL 0.4 - 1.1 mg/dL [facility] GFR/1.73 sq M predicted among non-blacks MDRD (S/P/Bld) [Vol rate/Area] The eGFR should be used for monitoring renal function only and not for medication dosing. [facility] GFR/1.73 sq M.predicted CKD-EPI (S/P/Bld) [Vol rate/Area] 93 >=60 mL/min/1.73 m2 [facility] Glucose [Mass/Vol] 206 mg/dL High 65 - 99 mg/dL [facility] HCO3 [Moles/Vol] 23 mmol/L 21 - 32 mmol/L [facility] Interpretation and review of laboratory results Abnormal [facility] Potassium [Moles/Vol] 3.3 mmol/L Low 3.5 - 5.1 mmol/L [facility] Sodium [Moles/Vol] 135 mmol/L 135 - 145 mmol/L [facility] Urea nitrogen [Mass/Vol] 18 mg/dL 8 - 25 mg/dL [facility] Urea nitrogen/Creatinine [Mass ratio] 25.4 mg/mg High [facility] CBC WITH AUTO DIFFERENTIALon 10-14-2019 Basophils (Bld) [#/Vol] 0.04 10*3/uL [facility] Basophils/100 WBC (Bld) 0.5 % [facility] Eosinophils (Bld) [#/Vol] 0.00 10*3/uL [facility] Eosinophils/100 WBC (Bld) 0.0 % [facility] Erythrocyte distribution width (RBC) [Entitic vol] 14.0 % 11.6 - 14.8 % [facility] Hematocrit (Bld) [Volume fraction] 33.6 % Low 36 - 46 % [facility] Hemoglobin (Bld) [Mass/Vol] 11.1 g/dL Low 12 - 16 g/dL [facility] Immature granulocytes (Bld) [#/Vol] 0.01 10*3/uL [facility] Immature granulocytes/100 WBC (Bld) 0.10 % [facility] Comment on above: The IG parameter is the percentage of metamyelocytes, myelocytes, and promyelocytes. Interpretation and review of laboratory results Abnormal [facility] Lymphocytes (Bld) [#/Vol] 2.22 10*3/uL [facility] Lymphocytes/100 WBC (Bld) 28.2 % [facility] MCH (RBC) [Entitic mass] 29.3 pg 26 - 34 pg [facility] MCHC (RBC) [Mass/Vol] 33.0 g/dL 31 - 37 g/dL [facility] MCV (RBC) [Entitic vol] 88.7 fL 80 - 100 fL [facility] Monocytes (Bld) [#/Vol] 0.57 10*3/uL [facility] Monocytes/100 WBC (Bld) 7.2 % [facility] Neutrophils (Bld) [#/Vol] 5.04 10*3/uL [facility] Neutrophils/100 WBC (Bld) 64.0 % [facility] Nucleated RBC (Bld) [#/Vol] 0.00 10*3/uL [facility] Nucleated RBC/100 WBC (Bld) [Ratio] 0.0 % [facility] Platelet mean volume (Bld) [Entitic vol] 9.2 fL 9 - 15.5 fL [facility] Platelets (Bld) [#/Vol] 390 10*3/uL [facility] RBC (Bld) [#/Vol] 3.79 10*6/uL Low [facility] WBC (Bld) [#/Vol] 7.88 10*3/uL [facility] POC Glucoseon 10-14-2019 Glucose [Mass/Vol] 116 mg/dL High 65 - 99 mg/dL [facility] Interpretation and review of laboratory results Abnormal [facility] Glucose [Mass/Vol] 142 mg/dL High 65 - 99 mg/dL [facility] Interpretation and review of laboratory results Abnormal [facility] POC Glucoseon 10-13-2019 Glucose [Mass/Vol] 232 mg/dL High 65 - 99 mg/dL [facility] Interpretation and review of laboratory results Abnormal [facility] Glucose [Mass/Vol] 317 mg/dL High 65 - 99 mg/dL [facility] Interpretation and review of laboratory results Abnormal [facility] Glucose [Mass/Vol] 289 mg/dL High 65 - 99 mg/dL [facility] Interpretation and review of laboratory results Abnormal [facility] Glucose [Mass/Vol] 96 mg/dL 65 - 99 mg/dL [facility] Interpretation and review of laboratory results Normal [facility] CBC WITH AUTO DIFFERENTIALon 10-12-2019 Basophils (Bld) [#/Vol] 0.09 10*3/uL [facility] Basophils/100 WBC (Bld) 1.1 % [facility] Eosinophils (Bld) [#/Vol] 0.36 10*3/uL [facility] Eosinophils/100 WBC (Bld) 4.4 % [facility] Erythrocyte distribution width (RBC) [Entitic vol] 13.9 % 11.6 - 14.8 % [facility] Hematocrit (Bld) [Volume fraction] 34.6 % Low 36 - 46 % [facility] Hemoglobin (Bld) [Mass/Vol] 11.7 g/dL Low 12 - 16 g/dL [facility] Immature granulocytes (Bld) [#/Vol] 0.01 10*3/uL [facility] Immature granulocytes/100 WBC (Bld) 0.10 % [facility] Comment on above: The IG parameter is the percentage of metamyelocytes, myelocytes, and promyelocytes. Interpretation and review of laboratory results Abnormal [facility] Lymphocytes (Bld) [#/Vol] 2.96 10*3/uL [facility] Lymphocytes/100 WBC (Bld) 36.6 % [facility] MCH (RBC) [Entitic mass] 29.8 pg 26 - 34 pg [facility] MCHC (RBC) [Mass/Vol] 33.8 g/dL 31 - 37 g/dL [facility] MCV (RBC) [Entitic vol] 88.3 fL 80 - 100 fL [facility] Monocytes (Bld) [#/Vol] 0.72 10*3/uL [facility] Monocytes/100 WBC (Bld) 8.9 % [facility] Neutrophils (Bld) [#/Vol] 3.95 10*3/uL [facility] Neutrophils/100 WBC (Bld) 48.9 % [facility] Nucleated RBC (Bld) [#/Vol] 0.00 10*3/uL [facility] Nucleated RBC/100 WBC (Bld) [Ratio] 0.0 % [facility] Platelet mean volume (Bld) [Entitic vol] 9.3 fL 9 - 15.5 fL [facility] Platelets (Bld) [#/Vol] 378 10*3/uL [facility] RBC (Bld) [#/Vol] 3.92 10*6/uL Low [facility] WBC (Bld) [#/Vol] 8.09 10*3/uL [facility] Comprehensive Metabolic Pane le 10-12-2019 Albumin [Mass/Vol] 3.8 g/dL 3.2 - 5.2 g/dL [facility] ALP [Catalytic activity/Vol] 90 U/L 40 - 150 U/L [facility] ALT [Catalytic activity/Vol] 13 U/L 0 - 40 U/L [facility] Anion gap [Moles/Vol] 20 mmol/L 10 - 20 mmol/L [facility] AST [Catalytic activity/Vol] 19 U/L 0 - 45 U/L [facility] Bilirubin [Mass/Vol] 0.2 mg/dL 0 - 1.3 mg/dL [facility] Calcium [Mass/Vol] 9.2 mg/dL 8.4 - 10. 2 mg/dL [facility] Chloride [Moles/Vol] 97 mmol/L Low 98 - 108 mmol/L [facility] Creatinine [Mass/Vol] 0.84 mg/dL 0.4 - 1.1 mg/dL [facility] GFR/1.73 sq M predicted among non-blacks MDRD (S/P/Bld) [Vol rate/Area] The eGFR should be used for monitoring renal function only and not for medication dosing. [facility] GFR/1.73 sq M.predicted CKD-EPI (S/P/Bld) [Vol rate/Area] 76 >=60 mL/min/1.73 m2 [facility] Glucose [Mass/Vol] 240 mg/dL High 65 - 99 mg/dL [facility] HCO3 [Moles/Vol] 26 mmol/L 21 - 32 mmol/L [facility] Interpretation and review of laboratory results Abnormal [facility] Potassium [Moles/Vol] 3.7 mmol/L 3.5 - 5.1 mmol/L [facility] Protein [Mass/Vol] 8.7 g/dL High 6 - 8 g/dL [facility] Sodium [Moles/Vol] 139 mmol/L 135 - 145 mmol/L [facility] Urea nitrogen [Mass/Vol] 14 mg/dL 8 - 25 mg/dL [facility] Urea nitrogen/Creatinine [Mass ratio] 16.7 mg/mg [facility] POC Glucoseon 10-12-2019 Glucose [Mass/Vol] 195 mg/dL High 65 - 99 mg/dL [facility] Interpretation and review of laboratory results Abnormal [facility] Glucose [Mass/Vol] 130 mg/dL High 65 - 99 mg/dL [facility] Interpretation and review of laboratory results Abnormal [facility] PT/INRon 10-12-2019 INR Coag (PPP) [Relative time] 1.0 {INR} [facility] Interpretation and review of laboratory results Normal [facility] PT Coag (PPP) [Time] 12.7 s [facility] During the induction phase of oral anticoagulation, the INR may not reflect the anticoagulation status of the patient. Therapeutic ranges for INR's are: Most clinical situations: INR 2.0-3.0 Mechanical Prosthetic Valve: INR 2.5-3.5 Critical: INR >5.0 [facility] DEBRIDEMENTon 10-08-2019 Rose Mendoza CNP 10/08/2019 2:14 PM Wound Care Debridement Timeout: Verbal Consent obtained?: Yes Written Consent obtained?: Yes Consent given by: Patient Immediately prior to procedure a time out was called to verify the correct patient, procedure, equipment, legal support assistant and site/side marked as required Timeout performed: [...] tolerated well (...................... ....................... ....................... ...... ...............) [facility] Basic Metabolic Panelon Anion gap [Moles/Vol] 17 mmol/L 10 - 20 mmol/L [facility] Calcium [Mass/Vol] 7.9 mg/dL Low 8.4 - 10. 2 mg/dL [facility] Chloride [Moles/Vol] 101 mmol/L 98 - 108 mmol/L [facility] Creatinine [Mass/Vol] 0.68 mg/dL 0.4 - 1.1 mg/dL [facility] GFR/1.73 sq M predicted among non-blacks MDRD (S/P/Bld) [Vol rate/Area] The eGFR should be used for monitoring renal function only and not for medication dosing. [facility] GFR/1.73 sq M.predicted CKD-EPI (S/P/Bld) [Vol rate/Area] 95 >=60 mL/min/1.73 m2 [facility] Glucose [Mass/Vol] 143 mg/dL High 65 - 99 mg/dL [facility] HCO3 [Moles/Vol] 23 mmol/L 21 - 32 mmol/L [facility] Interpretation and review of laboratory results Abnormal [facility] Potassium [Moles/Vol] 3.4 mmol/L Low 3.5 - 5.1 mmol/L [facility] Sodium [Moles/Vol] 138 mmol/L 135 - 145 mmol/L [facility] Urea nitrogen [Mass/Vol] 17 mg/dL 8 - 25 mg/dL [facility] Urea nitrogen/Creatinine [Mass ratio] 25.0 mg/mg High [facility] CBC WITH AUTO DIFFERENTIALon 09-05-2019 Basophils (Bld) [#/Vol] 0.07 10*3/uL [facility] Basophils/100 WBC (Bld) 0.7 % [facility] Eosinophils (Bld) [#/Vol] 0.06 10*3/uL [facility] Eosinophils/100 WBC (Bld) 0.6 % [facility] Erythrocyte distribution width (RBC) [Entitic vol] 14.0 % 11.6 - 14.8 % [facility] Hematocrit (Bld) [Volume fraction] 33.6 % Low 36 - 46 % [facility] Hemoglobin (Bld) [Mass/Vol] 11.0 g/dL Low 12 - 16 g/dL [facility] Immature granulocytes (Bld) [#/Vol] 0.02 10*3/uL [facility] Immature granulocytes/100 WBC (Bld) 0.20 % [facility] Comment on above: The IG parameter is the percentage of metamyelocytes, myelocytes, and promyelocytes. Interpretation and review of laboratory results Abnormal [facility] Lymphocytes (Bld) [#/Vol] 2.50 10*3/uL [facility] Lymphocytes/100 WBC (Bld) 25.6 % [facility] MCH (RBC) [Entitic mass] 29.2 pg 26 - 34 pg [facility] MCHC (RBC) [Mass/Vol] 32.7 g/dL 31 - 37 g/dL [facility] MCV (RBC) [Entitic vol] 89.1 fL 80 - 100 fL [facility] Monocytes (Bld) [#/Vol] 1.19 10*3/uL High [facility] Monocytes/100 WBC (Bld) 12.2 % [facility] Neutrophils (Bld) [#/Vol] 5.92 10*3/uL [facility] Neutrophils/100 WBC (Bld) 60.7 % [facility] Nucleated RBC (Bld) [#/Vol] 0.00 10*3/uL [facility] Nucleated RBC/100 WBC (Bld) [Ratio] 0.0 % [facility] Platelet mean volume (Bld) [Entitic vol] 9.1 fL 9 - 15.5 fL [facility] Platelets (Bld) [#/Vol] 311 10*3/uL [facility] RBC (Bld) [#/Vol] 3.77 10*6/uL Low [facility] WBC (Bld) [#/Vol] 9.76 10*3/uL [facility] POC Glucoseon 09-05-2019 Glucose [Mass/Vol] 115 mg/dL High 65 - 99 mg/dL [facility] Interpretation and review of laboratory results Abnormal [facility] Glucose [Mass/Vol] 92 mg/dL 65 - 99 mg/dL [facility] Interpretation and review of laboratory results Normal [facility] TSHon 09-05-2019 Interpretation and review of laboratory results Abnormal [facility] TSH Qn 8.81 m[IU]/L High [facility] URINALYSISon 09-05-2019 Bacteria Auto Ql (U) None Seen None Seen /hpf [facility] Bilirubin Ql (U) Negative Negative [facility] th Clarity Refractometry automated (U) Hazy Abnormal Clear [facility] Color (U) Yellow Colorless, Yellow [facility] Epithelial cells.squamous Auto (Urine sed) [#/Area] 6 High [facility] Glucose Auto test strip (U) [Mass/Vol] >=500 Abnormal Negative mg/dL [facility] Hemoglobin Auto test strip Ql (U) Negative Negative [facility] Interpretation and review of laboratory results Abnormal [facility] Ketones (U) [Mass/Vol] Negative Negative mg/dL [facility] Leukocyte esterase Auto test strip Ql (U) Negative Negative [facility] Mucus Auto (Urine sed) [#/Area] Rare None Seen, Rare /lpf [facility] Nitrite Auto test strip Ql (U) Negative Negative [facility] pH (U) 5.0 [pH] [facility] Protein (U) [Mass/Vol] Negative Negative mg/dL [facility] RBC Auto (Urine sed) [#/Area] <1 [facility] Specific gravity (U) [Rel density] 1.023 [facility] Urobilinogen (U) [Mass/Vol] <2.0 <2.0 mg/dL [facility] WBC Auto (Urine sed) [#/Area] 2 [facility] Microscopic examinat ion is performed on all urinalysis samples and only positive findings are reported. The test for blood on the chemical analytic portion of urinalysis may also be positive due to hemoglobinuria and myoglobinuria and if red blood cells are present they are quantified by microscopic examination. [facility] XR CHEST PA/APon 09-05-2019 XR [...] 05, 2019 10:42:53 AM EST Transcribed by: IGNCAIO RUVALCABA on MonSep 05, 2019 10:54:07 AM EST Finalized by: VU NESS on MonSep 05, 2019 11:55:53 AM EST Normal [facility] Comment on above: Order Comment: Injur [...] limits. No acute osseous abnormality is seen. [facility] No acute cardiopulmonary abnormality. [employer] Workstation ID: [id number] [facility] Interface, Rad In [facility] - 09/05/2019 11:58 AM EST EXAMINATION: XR [...] is seen. IMPRESSION: No acute cardiopulmonary abnormality. [employer] Workstation ID: [id number] [facility] POC Glucoseon 09-04-2019 Glucose [Mass/Vol] 126 mg/dL High 65 - 99 mg/dL [facility] Interpretation and review of laboratory results Abnormal [facility] Glucose [Mass/Vol] 112 mg/dL High 65 - 99 mg/dL [facility] Interpretation and review of laboratory results Abnormal [facility] Glucose [Mass/Vol] 93 mg/dL 65 - 99 mg/dL [facility] Interpretation and review of laboratory results Normal [facility] Glucose [Mass/Vol] 88 mg/dL 65 - 99 mg/dL [facility] Interpretation and review of laboratory results Normal [facility] SCAN OTHER ORDERSon 09-04-20 19 Ordered by an unspecified provider. [facility] XR ELBOW LEFT 3+ VIEWS [...] intact hardware related to left elbow arthroplasty. [employer] Workstation ID: [id number] Dictated by: VU NESS on MonSep 04, 2019 3:35:06 PM EST Transcribed by: JONI DELEON on MonSep 04, 2019 3:35:46 PM EST Finalized by: VU NESS on MonSep 04, 2019 4:41:06 PM EST Normal [facility] Comment on above: Order Comment: Injur y/Trauma or Illness?:Illness/Other How long have you had these symptoms (acute/chronic)?:Unknown Reason for exam?:post op History of cancer?:no Surgeries, chemotherapy, or radiation?:left elbow Type of Exam?:Initial Additional signs and symptoms?:post op XR Elbow Left 3+ Views (Martín dard)on 09-04-2019 Erythrocyte distribution width (RBC) [Ratio] 1. Gross anatomic alignment and intact hardware related to left elbow arthroplasty. [employer] Workstation ID: [id number] [facility], [facility] [employer] - 09/04/2019 4:43 [...] left elbow arthroplasty. [employer] Workstation ID: [id number] [facility] EXAMINATION: XR ELBO W LEFT [...] gas is shown surrounding the surgical site. [facility] XR FLUOROSCOPY TIMEon 2018 XR FLUOROSCOPY TIME This is an auto finalized result. Please refer to patient chart for further information. further information. further information. Normal [facility] Comment on above: Order Comment: Injur y/Trauma or Illness?:Illness/Other How long have you had these symptoms (acute/chronic)?:Unknown Reason for exam?:OR Type of Exam?:Ongoing Additional signs and symptoms?:unknown Fluoro time in minutes:.59 Fluoro dose in mGy?:.18 XR Fluoroscopy Timeon 2018 This is an auto finalized result. Please refer to patient chart for further information. [facility] XR OR ELBOW LEFT 2 [...] MonSep 04, 2019 2:22:01 PM EST Normal [facility] Comment on above: Order Comment: Injur [...] resection of the radial head. Normal alignment. [facility] [place] [facility] [employer] [...] formal operative report. [employer] Workstation ID: [id number] [facility] Status post left elb ow arthroplasty procedure. Please refer to the formal operative report. [employer] Workstation ID: [id number] [facility] Basic Metabolic Panelon 08-03 Anion gap [Moles/Vol] 22 mmol/L High 10 - 20 mmol/L [facility] Calcium [Mass/Vol] 9.7 mg/dL 8.4 - 10. 2 mg/dL [facility] Chloride [Moles/Vol] 96 mmol/L Low 98 - 108 mmol/L [facility] Creatinine [Mass/Vol] 0.63 mg/dL 0.4 - 1.1 mg/dL [facility] GFR/1.73 sq M predicted among non-blacks MDRD (S/P/Bld) [Vol rate/Area] The eGFR should be used for monitoring renal function only and not for medication dosing. [facility] GFR/1.73 sq M.predicted CKD-EPI (S/P/Bld) [Vol rate/Area] 98 >=60 mL/min/1.73 m2 [facility] Glucose [Mass/Vol] 221 mg/dL High 65 - 99 mg/dL [facility] HCO3 [Moles/Vol] 24 mmol/L 21 - 32 mmol/L [facility] Interpretation and review of laboratory results Abnormal [facility] Potassium [Moles/Vol] 4.0 mmol/L 3.5 - 5.1 mmol/L [facility] Sodium [Moles/Vol] 138 mmol/L 135 - 145 mmol/L [facility] Urea nitrogen [Mass/Vol] 16 mg/dL 8 - 25 mg/dL [facility] Urea nitrogen/Creatinine [Mass ratio] 25.4 mg/mg High [facility] CBC WITH AUTO DIFFERENTIALon 08-28-2019 Basophils (Bld) [#/Vol] 0.07 10*3/uL [facility] Basophils/100 WBC (Bld) 0.8 % [facility] Eosinophils (Bld) [#/Vol] 0.32 10*3/uL [facility] Eosinophils/100 WBC (Bld) 3.9 % [facility] Erythrocyte distribution width (RBC) [Entitic vol] 14.3 % 11.6 - 14.8 % [facility] Hematocrit (Bld) [Volume fraction] 40.2 % 36 - 46 % [facility] Hemoglobin (Bld) [Mass/Vol] 13.5 g/dL 12 - 16 g/dL [facility] Immature granulocytes (Bld) [#/Vol] 0.03 10*3/uL [facility] Immature granulocytes/100 WBC (Bld) 0.40 % [facility] Comment on above: The IG parameter is the percentage of metamyelocytes, myelocytes, and promyelocytes. Lymphocytes (Bld) [#/Vol] 2.90 10*3/uL [facility] Lymphocytes/100 WBC (Bld) 35.2 % [facility] MCH (RBC) [Entitic mass] 29.8 pg 26 - 34 pg [facility] MCHC (RBC) [Mass/Vol] 34.0 g/dL 31 - 37 g/dL [facility] MCV (RBC) [Entitic vol] 87.6 fL 80 - 100 fL [facility] Monocytes (Bld) [#/Vol] 0.55 10*3/uL [facility] Monocytes/100 WBC (Bld) 6.7 % [facility] Neutrophils (Bld) [#/Vol] 4.38 10*3/uL [facility] Neutrophils/100 WBC (Bld) 53.0 % [facility] Nucleated RBC (Bld) [#/Vol] 0.00 10*3/uL [facility] Nucleated RBC/100 WBC (Bld) [Ratio] 0.0 % [facility] Platelet mean volume (Bld) [Entitic vol] 9.6 fL 9 - 15.5 fL [facility] Platelets (Bld) [#/Vol] 391 10*3/uL [facility] RBC (Bld) [#/Vol] 4.60 10*6/uL [facility] WBC (Bld) [#/Vol] 8.25 10*3/uL [facility] Creatinine, Serumon 08-28-20 Creatinine [Mass/Vol] 0.63 mg/dL 0.4 - 1.1 mg/dL [facility] GFR/1.73 sq M predicted among non-blacks MDRD (S/P/Bld) [Vol rate/Area] The eGFR should be used for monitoring renal function only and not for medication dosing. [facility] GFR/1.73 sq M.predicted CKD-EPI (S/P/Bld) [Vol rate/Area] 98 >=60 mL/min/1.73 m2 [facility] Interpretation and review of laboratory results Normal [facility] ECG 12-LEADon 08-28-2019 Atrial Rate 90 BPM [facility] P Bondurant 80 degrees [facility] P-R Interval 156 ms [facility] Q-T Interval 362 ms [facility] QRS Duration 64 ms [facility] QTC Calculation (Bezet) 442 ms [facility] R Bondurant 64 degrees [facility] T Bondurant 57 degrees [facility] Ventricular Rate 90 BPM [facility] th Normal sinus rhythm Low voltage QRS Poor R Wave Progression Septal infarct , age undetermined Abnormal ECG Confirmed by Leatha Gomez M.D. ([id number]) on 08/28/2019 1:35:26 PM [facility] Glucoseon 08-28-2019 Glucose [Mass/Vol] 221 mg/dL High 65 - 99 mg/dL [facility] Interpretation and review of laboratory results Abnormal [facility] Hemoglobin and Hematocriton 08-28-2019 Hematocrit (Bld) [Volume fraction] 40.2 % 36 - 46 % [facility] Hemoglobin (Bld) [Mass/Vol] 13.5 g/dL 12 - 16 g/dL [facility] Interpretation and review of laboratory results Normal [facility] DEBRIDEMENTon 04-23-2019 Rose Mendoza CNP 04/24/2019 8:06 AM Wound Care Debridement Timeout: Verbal Consent obtained?: Yes Written Consent obtained?: Yes Consent given by: Patient Immediately prior to procedure a time out was called to verify the correct patient, procedure, equipment, legal support assistant and site/side marked as required Timeout performed: [...] tolerated well (...................... ....................... ....................... ...... ...............) [facility] Basic Metabolic Panelon 02-01 Anion gap molar conc 15 mmol/L 10 - 20 mmol/L [facility] Calcium mass conc 7.6 mg/dL Low 8.4 - 10.2 mg/dL [facility] Chloride molar conc 104 mmol/L 98 - 108 mmol/L [facility] Creatinine mass conc 0.55 mg/dL 0.4 - 1.1 mg/dL [facility] GFR/1.73 sq M predicted among non-blacks MDRD vol rate/area (S/P/Bld) The eGFR should be used for monitoring renal function only and not for medication dosing. [facility] GFR/1.73 sq M.predicted CKD-EPI vol rate/area (S/P/Bld) 103 >=60 mL/min/1.73 m2 [facility] Glucose mass conc 104 mg/dL High 65 - 99 mg/dL [facility] HCO3 molar conc 22 mmol/L 21 - 32 mmol/L [facility] Interpretation and review of laboratory results Abnormal [facility] Potassium molar conc 3.3 mmol/L Low 3.5 - 5.1 mmol/L [facility] Sodium molar conc 138 mmol/L 135 - 145 mmol/L [facility] Urea nitrogen mass conc 12 mg/dL 8 - 25 mg/dL [facility] Urea nitrogen/Creatinine mass ratio 21.8 mg/mg High [facility] CBC WITH AUTO DIFFERENTIALon 02-28-2019 Basophils #/vol (Bld) 0.05 10*3/uL [facility] Basophils/100 WBC (Bld) 0.5 % [facility] Eosinophils #/vol (Bld) 0.01 10*3/uL [facility] Eosinophils/100 WBC (Bld) 0.1 % [facility] Erythrocyte distribution width Entitic volume (RBC) 13.7 % 11.6 - 14.8 % [facility] Hematocrit Volume Fraction (Bld) 30.6 % Low 36 - 46 % [facility] Hemoglobin mass conc (Bld) 9.8 g/dL Low 12 - 16 g/dL [facility] Immature granulocytes #/vol (Bld) 0.07 10*3/uL [facility] Immature granulocytes/100 WBC (Bld) 0.60 % [facility] Comment on above: The IG parameter is the percentage of metamyelocytes, myelocytes, and promyelocytes. Interpretation and review of laboratory results Abnormal [facility] Lymphocytes #/vol (Bld) 2.11 10*3/uL [facility] Lymphocytes/100 WBC (Bld) 19.0 % [facility] MCH Entitic mass (RBC) 28.2 pg 26 - 34 pg [facility] MCHC mass conc (RBC) 32.0 g/dL 31 - 37 g/dL [facility] MCV Entitic volume (RBC) 88.2 fL 80 - 100 fL [facility] Monocytes #/vol (Bld) 0.94 10*3/uL [facility] Monocytes/100 WBC (Bld) 8.5 % [facility] Neutrophils #/vol (Bld) 7.91 10*3/uL High [facility] Neutrophils/100 WBC (Bld) 71.3 % [facility] Nucleated RBC #/vol (Bld) 0.00 10*3/uL [facility] Nucleated RBC/100 WBC Ratio (Bld) 0.0 % [facility] Platelet mean volume Entitic volume (Bld) 9.2 fL 9 - 15.5 fL [facility] Platelets #/vol (Bld) 327 10*3/uL [facility] RBC #/vol (Bld) 3.47 10*6/uL Low [facility] WBC #/vol (Bld) 11.09 10*3/uL High [facility] alth POC Glucoseon 02-28-2019 Glucose mass conc 171 mg/dL High 65 - 99 mg/dL [facility] Interpretation and review of laboratory results Abnormal [facility] Glucose mass conc 76 mg/dL 65 - 99 mg/dL [facility] Interpretation and review of laboratory results Normal [facility] Glucose mass conc 171 mg/dL High 65 - 99 mg/dL [facility] Interpretation and review of laboratory results Abnormal [facility] CBC WITH AUTO DIFFERENTIALon 02-27-2019 Basophils #/vol (Bld) 0.05 10*3/uL [facility] Basophils/100 WBC (Bld) 0.5 % [facility] Eosinophils #/vol (Bld) 0.13 10*3/uL [facility] Eosinophils/100 WBC (Bld) 1.2 % [facility] Erythrocyte distribution width Entitic volume (RBC) 13.8 % 11.6 - 14.8 % [facility] Hematocrit Volume Fraction (Bld) 39.1 % 36 - 46 % [facility] Hemoglobin mass conc (Bld) 12.7 g/dL 12 - 16 g/dL [facility] Immature granulocytes #/vol (Bld) 0.06 10*3/uL [facility] Immature granulocytes/100 WBC (Bld) 0.60 % [facility] Comment on above: The IG parameter is the percentage of metamyelocytes, myelocytes, and promyelocytes. Interpretation and review of laboratory results Abnormal [facility] Lymphocytes #/vol (Bld) 1.32 10*3/uL [facility] Lymphocytes/100 WBC (Bld) 12.2 % [facility] MCH Entitic mass (RBC) 28.6 pg 26 - 34 pg [facility] MCHC mass conc (RBC) 32.5 g/dL 31 - 37 g/dL [facility] MCV Entitic volume (RBC) 88.1 fL 80 - 100 fL [facility] Monocytes #/vol (Bld) 0.50 10*3/uL [facility] Monocytes/100 WBC (Bld) 4.6 % [facility] Neutrophils #/vol (Bld) 8.79 10*3/uL High [facility] Neutrophils/100 WBC (Bld) 80.9 % [facility] Nucleated RBC #/vol (Bld) 0.00 10*3/uL [facility] Nucleated RBC/100 WBC Ratio (Bld) 0.0 % [facility] Platelet mean volume Entitic volume (Bld) 9.2 fL 9 - 15.5 fL [facility] Platelets #/vol (Bld) 369 10*3/uL [facility] RBC #/vol (Bld) 4.44 10*6/uL [facility] W[facility] #/vol (Bld) 10.85 10*3/uL [facility] alth POC Glucoseon 02-27-2019 Glucose mass conc 313 mg/dL High 65 - 99 mg/dL [facility] Interpretation and review of laboratory results Abnormal [facility] Glucose mass conc 328 mg/dL High 65 - 99 mg/dL [facility] Interpretation and review of laboratory results Abnormal [facility] Glucose mass conc 201 mg/dL High 65 - 99 mg/dL [facility] Interpretation and review of laboratory results Abnormal [facility] Glucose mass conc 208 mg/dL High 65 - 99 mg/dL [facility] Interpretation and review of laboratory results Abnormal [facility] SCAN OTHER ORDERSon 02-28-20 19 Ordered by an unspecified provider. [facility] XR Elbow Right 3+ Views [...] surgery. COMPARISON: Right elbow radiographs 07/21/2016 from [facility]. FINDINGS: Three views of the [...] soft tissue air compatible with recent surgery[facility] [...] surgery. COMPARISON: Right elbow radiographs 07/21/2016 from [facility]. FINDINGS: Three views of the [...] considered less likely. JRS/trn Workstation ID: [id number] [facility] Recent postoperative change for radial head resection and elbow joint prosthesis. Linear lucency adjacent to the ulnar stem in the region of the base of the coronoid process probably represents a mildly prominent cement bone interface. A nondisplaced fracture is considered less likely. JRS/trn Workstation ID: [id number] [facility] XR Fluoroscopy Timeon 2018 This is an auto finalized result. Please refer to patient chart for further information. [facility] Creatinine, Serumon 02-22-20 19 Creatinine mass conc 0.57 mg/dL 0.4 - 1.1 mg/dL [facility] GFR/1.73 sq M predicted among non-blacks MDRD vol rate/area (S/P/Bld) The eGFR should be used for monitoring renal function only and not for medication dosing. [facility] GFR/1.73 sq M.predicted CKD-EPI vol rate/area (S/P/Bld) 102 >=60 mL/min/1.73 m2 [facility] Interpretation and review of laboratory results Normal [facility] ECG 12-LEADon 02-21-2019 Atrial Rate 78 BPM [facility] P Bondurant 67 degrees [facility] P-R Interval 142 ms [facility] Q-T Interval 402 ms [facility] QRS Duration 78 ms [facility] QTC Calculation (Bezet) 458 ms [facility] R Bondurant 47 degrees [facility] T Bondurant 52 degrees [facility] Ventricular Rate 78 BPM [facility] Normal sinus rhythm Normal ECG Confirmed by SVETA SILVA D.O. ([id number]) on 02/21/2019 1:00:32 PM [facility] Glucoseon 02-21-2019 Glucose mass conc 407 mg/dL Critically high 65 - 99 mg/dL [facility] Interpretation and review of laboratory results Abnormal [facility] XR Cervical Spine with Flexi on and Extension 6+ Viewson 02-21-2019 Very minimal degenerative disc disease at C4-5. No fracture. No instability in flexion or extension. PRL/pji Workstation ID: [id number] [facility] EXAMINATION: XR CERVICAL SPINE WITH FLEXION AND EXTENSION 6+ VIEWS HISTORY: ORDERING SYSTEM PROVIDED HISTORY: pat, TECHNOLOGIST PROVIDED HISTORY: Reason for exam: pat for intubation Illness/Other Cancer History: no Surgery, RadiationHistory: no Encounter Type: Initial Additional signs and symptoms: patient has rheumatoid arthritis ORDERING SYSTEM PROVIDED DIAGNOSIS CODES: Z01.818 Pre-op exam COMPARISON: CT from [facility] 05/03/2013. FINDINGS: Seven images including flexion-extension. Minimal anterior discogenic spurring is seen at C4-5. No spondylolisthesis or fracture or prevertebral soft tissue swelling. No instability in flexion with specific attention to the atlantoaxial joint. No instability in extension. Facet arthrosis most prominent on the left between C3 and C6. [facility] Interface, Rad In Fu ji [...] CODES: Z01.818 Pre-op exam COMPARISON: CT from [facility] 05/03/2013. FINDINGS: Seven images including flexion-extension. Minimal [...] flexion or extension. PRL/pji Workstation ID: [id number] [facility] PROGRESSon 04-18-2017 PROGRESS HNO ID: [id number]: Kelsey (Rt) DenoService: RadiologyAuthor Type: TechnicianType: Progress NotesFiled: 04/18/2017 2:29 PMNote Text: Radiology Service Progress NotePATIENT NAME: Elsa CatalanMRN: [id number] OF SERVICE: April 18, 2017TIME: 2:27 PMPATIENT [...] Hunt RT (R)April 18, 2017 2:27 PM [facility] XR CERVICAL AP/LAT/OBLon XR [...] MD on Apr 18 2017 3:39PM EST [facility] XR ELBOW M3V UNIon [...] on Apr 18 2017 3:35PM EST Normal [facility] XR SHOULDER M2V UNIon 2016 XR SHOULDER [...] BONY ABNORMALITY, NO CHANGE COMPARED TO PREVIOUS EXAM.Order Checker Packer Processer: SUSANA Transcribe Date/Time: Apr 18 2017 3:35PDictated by : Jeevan MARIA examination was interpreted and the report reviewed and electronically signed by: KEMI DE LEON MD on Apr 18 2017 3:37PM EST Normal [facility] Vital Signs Date Time Vital Sign Value Performing Clinician Alin tam 05-18-2024 10:16040 Body mass index (BMI) [Ratio] 25.04 kg/m2 Pepe Carter MD Work Phone: [facility] 05-18-2024 10: Body weight 66.2 kg Pepe Carter MD Work Phone: [facility] 05-18-2024 10:16040 Diastolic blood pressure 91 mm[Hg] Pepe Carter MD Work Phone: [facility] 05-18-2024 10:16-0400 Heart rate 90 /min Pepe Carter MD Work Phone: [facility] 05-18-2024 10:16-0400 Systolic blood pressure 155 mm[Hg] Pepe Carter MD Work Phone: [facility] 11-23-2023 08:58-0500 Body weight 68.95 kg Pepe Carter MD Work Phone: [facility] 11-23-2023 08:58-0500 Diastolic blood pressure 83 mm[Hg] Pepe Carter MD Work Phone: [facility] 11-23-2023 08:58-0500 Heart rate 81 /min Pepe Carter MD Work Phone: [facility] 11-23-2023 08:58-0500 Systolic blood pressure 129 mm[Hg] Pepe Carter MD Work Phone: [facility] 08-11-2022 09:13-0500 Body weight 66.13 kg Pepe Carter MD Work Phone: [facility] 08-11-2022 09:13-0500 Diastolic blood pressure 72 mm[Hg] Pepe Carter MD Work Phone: [facility] 08-11-2022 09:13-0500 Heart rate 83 /min Pepe Carter MD Work Phone: [facility] 08-11-2022 09:13-0500 SaO2% (BldA) [Mass fraction] 99 % Pepe Carter MD Work Phone: [facility] 08-11-2022 09:13-0500 Systolic blood pressure 115 mm[Hg] Pepe Carter MD Work Phone: [facility] 04-08-2020 17:10-0400 BP Diastolic 72 mm[Hg] [facility] 04-08-2020 17:10-0400 BP Systolic 145 mm[Hg] Ayde [facility] 04-08-2020 17:10-0400 Pulse (Heart Rate) 94 /min [facility] 07-08-2020 17:10-0400 Pulse Oximetry 98 % Ayde Almanzar [facility] 04-08-2020 17:10-0400 Respiratory Rate 13 /min Ayde Almanzar [facility] 04-08-2020 17:00-0400 Body Temperature 97.39 [degF] Ayde Almanzar [facility] 04-08-2020 09:55-0400 BMI (Body Mass Index) 24.6 kg/m2 Ayde Almanzar [facility] 04-08-2020 09:55-0400 Body weight 65 kg Ayde Almanzar [facility] 04-08-2020 09:55-0400 Height 162.6 cm Ayde Almanzar [facility] 10-14-2019 15:05-0500 Respiratory Rate 14 /min Ted [facility] 10-14-2019 07:13-0500 Body Temperature 98.29 [degF] [facility] 10-14-2019 07:13-0500 BP Diastolic 86 mm[Hg] [facility] 10-14-2019 07:13-0500 BP Systolic 134 mm[Hg] [facility] 10-14-2019 07:13-0500 Pulse (Heart Rate) 81 /min [facility] 10-14-2019 07:13-0500 Pulse Oximetry 97 % [facility] 10-12-2019 12:49-0500 BMI (Body Mass Index) 24.22 kg/m2 [facility] 10-12-2019 12:49-0500 Body weight 64 kg [facility] 10-12-2019 12:49-0500 Height 162.6 cm [facility] 10-08-2019 10:45-0500 BMI (Body Mass Index) 24.55 kg/m2 Rose Mendoza [facility] 10-08-2019 10:45-0500 Body weight 64.86 kg Rose Mendoza [facility] 10-08-2019 10:45-0500 Height 162.6 cm Rose Mendoza [facility] 10-08-2019 10:40-0500 Body Temperature 98.01 [degF] Rose Mendoza [facility] 10-08-2019 10:40-0500 BP Diastolic 99 mm[Hg] Rose Mendoza [facility] 10-08-2019 10:40-0500 BP Systolic 179 mm[Hg] Rose Mendoza [facility] 10-08-2019 10:40-0500 Pulse (Heart Rate) 95 /min Rose Mendoza [facility] 10-08-2019 10:40-0500 Respiratory Rate 16 /min Rose Mendoza [facility] 09-05-2019 11:12-0500 Body Temperature 99.19 [degF] [facility] 09-05-2019 11:12-0500 BP Diastolic 62 mm[Hg] [facility] 09-05-2019 11:12-0500 BP Systolic 99 mm[Hg] [facility] 09-05-2019 11:12-0500 Pulse (Heart Rate) 96 /min [facility] 09-05-2019 11:12-0500 Pulse Oximetry 97 % [facility] 09-05-2019 11:12-0500 Respiratory Rate 12 /min [facility] 09-04-2019 09:34-0500 BMI (Body Mass Index) 25.05 kg/m2 [facility] 09-04-2019 09:34-0500 Body weight 66.2 kg [facility] 09-04-2019 09:34-0500 Height 162.6 cm [facility] 08-28-2019 13:08-0500 BMI (Body Mass Index) 24.22 kg/m2 [facility] 08-28-2019 13:08-0500 Body Temperature 98.8 [degF] [facility] 08-28-2019 13:08-0500 Body weight 64 kg [facility] 08-28-2019 13:08-0500 BP Diastolic 92 mm[Hg] [facility] 08-28-2019 13:08-0500 BP Systolic 147 mm[Hg] [facility] 08-28-2019 13:08-0500 Height 162.6 cm [facility] 08-28-2019 13:08-0500 Pulse (Heart Rate) 85 /min [facility] 08-28-2019 13:08-0500 Pulse Oximetry 96 % [facility] 08-28-2019 13:08-0500 Respiratory Rate 13 /min [facility] 04-30-2019 13:45-0400 BP Diastolic 95 mm[Hg] Rose Mendoza [facility] 04-30-2019 13:45-0400 BP Systolic 174 mm[Hg] Rose Mendoza [facility] 04-30-2019 13:45-0400 Pulse (Heart Rate) 93 /min Rose Mendoza [facility] 04-30-2019 13:42-0400 Body Temperature 98.49 [degF] Rose Mendoza [facility] 04-30-2019 13:42-0400 Respiratory Rate 18 /min Rose Mendoza [facility] 04-23-2019 15:12-0400 BMI (Body Mass Index) 24.55 kg/m2 Rosecorey Mendoza [facility] 04-23-2019 15:12-0400 Body Temperature 98.2 [degF] Rose Mendoza [facility] 04-23-2019 15:12-0400 Body weight 64.86 kg Rose Mendoza [facility] 04-23-2019 15:12-0400 BP Diastolic 85 mm[Hg] Rose Mendoza [facility] 04-23-2019 15:12-0400 BP Systolic 162 mm[Hg] Rose Mendoza [facility] 04-23-2019 15:12-0400 Height 162.6 cm Rosecorey Mendoza [facility] 04-23-2019 15:12-0400 Pulse (Heart Rate) 92 /min Rosecorey Mendoza [facility] 04-23-2019 15:12-0400 Respiratory Rate 18 /min Rosecorey Mendoza [facility] 02-28-2019 14:05-0400 Respiratory Rate 12 /min [facility] 02-28-2019 11:38-0400 Body Temperature 97.9 [degF] [facility] 02-28-2019 11:38-0400 BP Diastolic 91 mm[Hg] [facility] 02-28-2019 11:38-0400 BP Systolic 155 mm[Hg] [facility] 02-28-2019 11:38-0400 Pulse (Heart Rate) 83 /min [facility] 02-28-2019 11:38-0400 Pulse Oximetry 99 % [facility] 02-27-2019 06:43-0400 BMI (Body Mass Index) 24.41 kg/m2 [facility] 02-27-2019 06:43-0400 Height 162.6 cm [facility] 02-27-2019 06:43-0400 Weight 64.5 kg Ayde Almanzar [facility] 02-21-2019 11:47-0400 BMI (Body Mass Index) 24.22 kg/m2 [facility] 02-21-2019 11:47-0400 Body Temperature 98.01 [degF] [facility] 02-21-2019 11:47-0400 BP Diastolic 105 mm[Hg] [facility] 02-21-2019 11:47-0400 BP Systolic 190 mm[Hg] [facility] 02-21-2019 11:47-[address] [facility] 02-21-2019 11:47-0400 Pulse (Heart Rate) 81 /min [facility] 02-21-2019 11:47-0400 Pulse Oximetry 98 % [facility] 02-21-2019 11:47-0400 Respiratory Rate 18 /min [facility] 02-21-2019 11:47-[address] [facility] Encounters Encounter Date Encounter Type Care Provider Facility Start: 06-06-2024 End: 06-06-2024 ambulatory PEPE CARTER Facility:[facility] Start: 06-06-2024 End: 06-06-2024 Subsequent hospital visit by physician Sparkle [facility] Comment on above: Trigger middle finge r of right hand [M65.331] Start: 05-18-2024 End: 05-18-2024 ambulatory PEPE CARTER Facility:[facility] Start: 05-18-2024 End: 05-18-2024 Patient encounter [...] Start: 05-14-2024 End: 05-14-2024 ambulatory PRETTY FERMIN Facility:[facility] Start: 12-29-2023 Telephone encounter Pepe allison MD Work Phone: Rheumatology Comment on above: Patient Question Start: 11-23-2023 End: 11-23-2023 ambulatory PEPE CARTER Facility:[facility] Start: 11-23-2023 End: 11-23-2023 Patient encounter [...] 07-27-2022 Refill Pepe Carter MD Work Phone: [address] [place] [address] Comment on above: Refill Request Start: 07-06-2022 End: 07-07-[address] LATASHA HAYES Facility:[facility] Start: 04-17-2022 Refill Pepe Carter MD Work Phone: Internal Medicine [place] Comment on above: Refill Request Start: 02-01-2022 End: 02-02-2022 ambulatory NOE WINN Facility:[facility] Start: 01-14-2022 End: 01-15-2022 ambulatory TAWANDA COOK Facility:[facility] Start: 01-13-2022 End: 01-14-[address] STU SAMUEL Facility:[facility] Start: 12-31-2021 End: 01-01-2022 ambulatory TAWANDA COOK Facility:[facility] Start: 12-30-2021 End: 12-30-2021 ambulatory Janel Chi APRN.DOG LICENSE OFFICER SUPERVISOR Work Phone: Rheumatology Comment on above: Rheumatoid arthritis of multiple sites without organ or system involvement with positive rheumatoid factor (HCC) (Primary Dx); Bilateral elbow joint pain; Fibromyalgia; Primary osteoarthritis of both wrists; Synovitis of hand; Long-term use of high-risk medication; Joint stiffness of multiple sites; Bilateral hand pain Start: 12-30-2021 End: 12-30-2021 Telemedicine consultation with patient Janel Chi APRN.DOG LICENSE OFFICER SUPERVISOR Work Phone: [facility] Start: 12-29-2021 Telephone encounter Pepe allison MD Work Phone: Rheumatology Comment on above: Results Start: 12-28-2021 End: 12-29-2021 ambulatory TAWANDA COOK Facility:[facility] Start: 07-26-2021 End: 07-26-2021 Subsequent hospital visit by physician Sparkle [facility] Comment on above: Chronic elbow pain, left [M25.522, G89.29] Start: 12-08-2020 End: 12-08-2020 Orders Only Migdalia Bhatiamalvin Work Phone: [facility] Provider Hospitalist Start: 04-08-2020 End: 04-08-2020 Patient encounter procedure [facility] Start: 04-08-2020 End: 04-08-2020 Subsequent hospital visit by physician Ayde Almanzar Work Phone: [facility] Periop Comment on above: Post-op pain (Primar y Dx) Start: 04-06-2020 End: 04-06-2020 Patient encounter procedure [facility] Start: 04-01-2020 End: 04-01-2020 Patient encounter procedure [facility] Start: 10-14-2019 Patient encounter procedure DEREK Wilson VJ [facility] Start: 10-12-2019 End: 10-14-2019 Patient encounter procedure PRETTY Aaron [facility] Start: 10-12-2019 End: 10-14-2019 Emergency department patient visit Ted Delvalle Work Phone: [facility] [address] Comment on above: Complication of proc edure, subsequent encounter (Primary Dx); Acute neuritis; Non-healing wound of upper extremity, left, initial encounter Start: 10-08-2019 End: 10-08-2019 Patient encounter procedure ROSE MENDOZA [facility] Start: 10-08-2019 End: 10-08-2019 Patient encounter procedure Rose Mendoza Work Phone: [facility] Comment on above: Skin ulcer of elbow with fat layer exposed (HCC) (Primary Dx); Type 2 diabetes mellitus with other skin ulcer, with long-term current use of insulin (HCC); Rheumatoid arthritis involving left elbow with positive rheumatoid factor (HCC); Fibromyalgia affecting forearm Start: 09-04-2019 End: 09-05-2019 Evaluation and management of inpatient [facility] Start: 09-04-2019 End: 09-05-2019 Evaluation and management of inpatient [facility] Work Phone: [facility] [address] Comment on above: Post-operative pain (Primary Dx); Elbow pain, unspecified laterality Start: 08-28-2019 End: 08-28-2019 Patient encounter procedure [facility] Start: 08-28-2019 End: 08-28-2019 Patient encounter procedure [facility] Work Phone: [facility] Preadmission Testing Comment on above: Preop [...] End: 04-30-2019 Patient encounter procedure ROSE MENDOZA [facility] Start: 04-30-2019 End: 04-30-2019 Office outpatient visit 5 minutes Rose Mendoza Work Phone: [facility] Comment on above: Skin ulcer of elbow with fat layer exposed (HCC) (Primary Dx); Type 2 diabetes mellitus with other skin ulcer, with long-term current use of insulin (HCC); Rheumatoid arthritis involving right elbow, unspecified rheumatoid factor presence (HCC); Fibromyalgia affecting forearm; Essential hypertension Start: 04-23-2019 Patient encounter procedure AUNDREA CLIFFORD [facility] Start: 04-23-2019 End: 04-23-2019 Patient encounter procedure Aundrea Clifford Work Phone: [facility] Comment on above: Skin ulcer of elbow with fat layer exposed (HCC) (Primary Dx); Type 2 diabetes mellitus with other skin ulcer, with long-term current use of insulin (HCC); Rheumatoid arthritis involving right elbow, unspecified rheumatoid factor presence (HCC); Fibromyalgia affecting forearm; Essential hypertension Start: 02-27-2019 End: 02-28-2019 Patient encounter procedure Ayde Almanzar Work Phone: [facility] [address] Comment on above: Elbow injury, unspec ified laterality, sequela (Primary Dx) Start: 02-21-2019 End: 02-21-2019 Patient encounter procedure Sveta Silva Work Phone: [facility] Diagnostics Comment on above: Pre-op exam Start: 02-21-2019 End: 02-21-2019 Patient encounter procedure Ayde Almanzar Work Phone: [facility] Preadmission Testing Comment on above: Pre-op [...] (DVT) prophylaxis Start: 04-18-2017 Ambulatory PEPE CARTER [facility] Procedures Date Procedure Procedure Detail Performing Clinician [...] 10-14-2019 Glucose [Mass/volume ] in Blood Generic [facility] Work Phone: Start: 10-14-2019 Glucose [Mass/volume [...] 10-13-2019 Glucose [Mass/volume ] in Blood Generic [facility] Work Phone: Start: 10-13-2019 Glucose [Mass/volume ] in Blood Generic [facility] Work Phone: Start: 10-13-2019 Glucose [Mass/volume ] in Blood Generic [facility] Work Phone: Start: 10-13-2019 End: 10-13-2019 INCISION AND DRAINAGE UPPER EXTREMITY Ayde Almanzar Work Phone: Start: 10-13-2019 Glucose [Mass/volume ] in Blood Generic [facility] Work Phone: Start: 10-12-2019 Glucose [Mass/volume ] in Blood Generic [facility] Work Phone: Start: 10-12-2019 Glucose [Mass/volume ] in Blood Generic [facility] Work Phone: Start: 10-12-2019 Complete blood [...] blood count with white cell differential, automated Felaaj Solorzano Work Phone: Start: 09-05-2019 Complete blood [...] Fluoroscopy up to 1 hour physician/qhp time Ayed Almanzar Work Phone: Start: 09-04-2019 Radex elbow [...] and Hemat ocrit panel - Blood Ayde Almaznar Work Phone: Start: 08-28-2019 [address] Generic Start: 04-23-2019 Debridement Rose Mendoza Work Phone: Start: 02-28-2019 Glucose [Mass/volume ] in Blood Ayde Almanzar Work Phone: Start: 02-28-2019 Glucose [Mass/volume ] in Blood Ayde Almanzar Work Phone: Start: 02-28-2019 Basic metabolic 2000 panel - Serum or Plasma Marliyn Ramirez Work Phone: Start: 02-28-2019 Complete blood [...] 12/24/2024 8:55 AM EDT Appointment Radiology [address] [place] [address] Postmenopausal osteoporosis of multiple sites [M81.0] Radiology Comment on above: Postmenopausal osteo porosis of multiple sites [M81.0] Start: 11-22-2024 End: 11-22-2024 Patient encounter procedure 11/22/2024 12:20 PM EST Office Visit Rheumatology [address] [place] [address] Pepe Carter MD [address] [place] [address] for RA/osteoarthritis/osteo penia fu OV 6months. Rheumatology Comment on above: for RA/osteoarthriti s/osteopenia fu OV 6months. Start: 09-04-2024 End: 09-04-2024 Patient encounter procedure 09/04/2024 2:00 PM EST Office Visit Orthopaedics [address] [place] [address] Kashmir Pereira MD [address] [place] [address] Trigger middle finger of right hand [M65.331] Orthopaedics Comment on above: Trigger middle finge r of right hand [M65.331] Start: 08-15-2024 End: 05-15-2025 25-hydroxyvitamin D3 [Mass/volume] in Serum or Plasma VITAMIN D 25 HYDROXY Lab Routine Vitamin D deficiency Expected: 08/15/2024 (Approximate), Expires: 05/15/2025 [facility] Comment on above: Expected: 08/15/2024 (Approximate), Expires: 05/15/2025 Start: 08-15-2024 End: 05-15-2025 C reactive protein [Mass/volume] in Serum or Plasma C-REACTIVE PROTEIN Lab Routine Elevated sed rate Elevated C-reactive protein (CRP) Expected: 08/15/2024 (Approximate), Expires: 05/15/2025 [facility] Comment on above: Expected: 08/15/2024 (Approximate), Expires: 05/15/2025 Start: 08-15-2024 End: 05-15-2025 CBC panel - Blood by Automated count COMPLETE BLOOD COUNT Lab Routine Anemia of chronic disease Expected: 08/15/2024 (Approximate), Expires: 05/15/2025 [facility] Comment on above: Expected: 08/15/2024 (Approximate), Expires: 05/15/2025 Start: 08-15-2024 End: 05-15-2025 Comprehensive metabolic 2000 panel - Serum or Plasma COMPREHENSIVE METABOLIC PANEL Lab Routine Elevated LFTs Expected: 08/15/2024 (Approximate), Expires: 05/15/2025 [facility] Work Phone: Comment on above: Expected: 08/15/2024 (Approximate), Expires: 05/15/2025 Start: 08-15-2024 End: 05-15-2025 Erythrocyte sedimentation rate SEDIMENTATION RATE, WESTERGREN Lab Routine Elevated sed rate Elevated C-reactive protein (CRP) Expected: 08/15/2024 (Approximate), Expires: 05/15/2025 [facility] Comment on above: Expected: 08/15/2024 (Approximate), Expires: 05/15/2025 Start: 06-02-2024 Influenza vaccination [facility] Start: 2024 Advance Directive Discussion Advance Directive Discussion [facility] Start: 2024 Screening for osteoporosis Bone Density Screening [facility] Start: 05-22-2024 End: 05-22-2024 Patient encounter procedure 05/22/2024 9:15 AM EDT Appointment Radiology [address] [place] [address] Trigger middle finger of right hand [M65.331] Radiology Comment on above: Trigger middle finge r of right hand [M65.331] Start: 05-18-2024 End: 05-18-2024 Patient encounter procedure 05/18/2024 10:20 AM EDT Office Visit Rheumatology [address] [place] [address] Pepe Carter MD [address] [place] [address] Please schedule follow up visit 05/18/24 via phone/virtual or in office visit RILEY MENCHACA AWARE OF LOCATION Rheumatology Comment on above: Please schedule foll ow up visit 05/18/24 via phone/virtual or in office visit RILEY MENCHACA AWARE OF LOCATION Start: 10-02-2023 Behavioral Health Screening Behavioral Health Screening [facility] Start: 10-02-2023 Depression Assessment Depression Ass essment [facility] Start: 08-28-2023 End: 05-28-2024 25-hydroxyvitamin D3 [Mass/volume] in Serum or Plasma VITAMIN D 25 HYDROXY Lab Routine Vitamin D deficiency Expected: 08/28/2023 (Approximate), Expires: 05/28/2024 [facility] Work Phone: Comment on above: Expected: 08/28/2023 (Approximate), Expires: 05/28/2024 Start: 08-28-2023 End: 05-28-2024 BLOOD TB SCREEN BLOOD TB SCREEN Lab Routine Screening-pulmonary TB Expected: 08/28/2023 (Approximate), Expires: 05/28/2024 [facility] Work Phone: Comment on above: Expected: 08/28/2023 (Approximate), Expires: 05/28/2024 Start: 08-28-2023 End: 05-28-2024 C reactive protein [Mass/volume] in Serum or Plasma C-REACTIVE PROTEIN (CRP) Lab Routine Elevated sed rate Elevated C-reactive protein (CRP) Expected: 08/28/2023 (Approximate), Expires: 05/28/2024 [facility] Work Phone: Comment on above: Expected: 08/28/2023 (Approximate), Expires: 05/28/2024 Start: 08-28-2023 End: 05-28-2024 CBC panel - Blood by Automated count CBC Lab Routine Anemia of chronic disease Expected: 08/28/2023 (Approximate), Expires: 05/28/2024 [facility] Work Phone: Comment on above: Expected: 08/28/2023 (Approximate), Expires: 05/28/2024 Start: 08-28-2023 End: 05-28-2024 Cobalamin (Vitamin B12) [Mass/volume] in Serum or Plasma VITAMIN B12 BLOOD Lab Routine Vitamin B12 deficiency Expected: 08/28/2023 (Approximate), Expires: 05/28/2024 [facility] Work Phone: Comment on above: Expected: 08/28/2023 (Approximate), Expires: 05/28/2024 Start: 08-28-2023 End: 05-28-2024 Comprehensive metabolic 2000 panel - Serum or Plasma COMP METABOLIC PANEL Lab Routine Elevated LFTs Expected: 08/28/2023 (Approximate), Expires: 05/28/2024 [facility] Work Phone: Comment on above: Expected: 08/28/2023 (Approximate), Expires: 05/28/2024 Start: 08-28-2023 End: 05-28-2024 Erythrocyte sedimentation rate SED RATE WESTERGREN Lab Routine Elevated sed rate Elevated C-reactive protein (CRP) Expected: 08/28/2023 (Approximate), Expires: 05/28/2024 [facility] Work Phone: Comment on above: Expected: 08/28/2023 (Approximate), Expires: 05/28/2024 Start: 08-11-2023 BP CONTROLLED (<130/80) BP CONTROLLE D (<130/80) [facility] Start: 06-02-2023 Influenza vaccination [facility] Start: 10-31-2022 End: 07-31-2023 25-hydroxyvitamin D3 [Mass/volume] in Serum or Plasma VITAMIN D 25 HYDROXY Lab Routine Vitamin D deficiency Expected: 10/31/2022 (Approximate), Expires: 07/31/2023 [facility] Work Phone: Comment on above: Expected: 10/31/2022 (Approximate), Expires: 07/31/2023 Start: 10-31-2022 End: 07-31-2023 C reactive protein [Mass/volume] in Serum or Plasma C-REACTIVE PROTEIN (CRP) Lab Routine Elevated sed rate Elevated C-reactive protein (CRP) Expected: 10/31/2022 (Approximate), Expires: 07/31/2023 [facility] Work Phone: Comment on above: Expected: 10/31/2022 (Approximate), Expires: 07/31/2023 Start: 10-31-2022 End: 07-31-2023 CBC panel - Blood by Automated count CBC Lab Routine Anemia of chronic disease Expected: 10/31/2022 (Approximate), Expires: 07/31/2023 [facility] Work Phone: Comment on above: Expected: 10/31/2022 (Approximate), Expires: 07/31/2023 Start: 10-31-2022 End: 07-31-2023 Comprehensive metabolic 2000 panel - Serum or Plasma COMP METABOLIC PANEL Lab Routine Elevated LFTs Expected: 10/31/2022 (Approximate), Expires: 07/31/2023 [facility] Work Phone: Comment on above: Expected: 10/31/2022 (Approximate), Expires: 07/31/2023 Start: 10-31-2022 End: 07-31-2023 Erythrocyte sedimentation rate SED RATE WESTERGREN Lab Routine Elevated sed rate Elevated C-reactive protein (CRP) Expected: 10/31/2022 (Approximate), Expires: 07/31/2023 [facility] Work Phone: Comment on above: Expected: 10/31/2022 (Approximate), Expires: 07/31/2023 Start: 10-02-2022 DEPRESSION ASSESSMENT DEPRESSION ASS ESSMENT [facility] Start: 06-02-2022 Influenza vaccination INFLUENZA (#1) [facility] Start: 04-20-2022 Adult depression screening assessment DEPRESSION SCREENING [facility] Start: 03-31-2022 End: 12-29-2022 C reactive protein [Mass/volume] in Serum or Plasma C-REACTIVE PROTEIN (CRP) Lab Routine Elevated sed rate Elevated C-reactive protein (CRP) Expected: 03/31/2022 (Approximate), Expires: 12/29/2022 [facility] Work Phone: Comment on above: Expected: 03/31/2022 (Approximate), Expires: 12/29/2022 Start: 03-31-2022 End: 12-29-2022 CBC panel - Blood by Automated count CBC Lab Routine Anemia of chronic disease Expected: 03/31/2022 (Approximate), Expires: 12/29/2022 [facility] Work Phone: Comment on above: Expected: 03/31/2022 (Approximate), Expires: 12/29/2022 Start: 03-31-2022 End: 12-29-2022 Comprehensive metabolic 2000 panel - Serum or Plasma COMP METABOLIC PANEL Lab Routine Elevated LFTs Expected: 03/31/2022 (Approximate), Expires: 12/29/2022 [facility] Work Phone: Comment on above: Expected: 03/31/2022 (Approximate), Expires: 12/29/2022 Start: 03-31-2022 End: 12-29-2022 Erythrocyte sedimentation rate SED RATE WESTERGREN Lab Routine Elevated sed rate Elevated C-reactive protein (CRP) Expected: 03/31/2022 (Approximate), Expires: 12/29/2022 [facility] Work Phone: Comment on above: Expected: 03/31/2022 (Approximate), Expires: 12/29/2022 Start: 03-31-2022 End: 12-29-2022 VITAMIN D 25 HYDROXY VITAMIN D 25 HYDROXY Lab Routine Vitamin D deficiency Expected: 03/31/2022 (Approximate), Expires: 12/29/2022 [facility] Work Phone: Comment on above: Expected: 03/31/2022 (Approximate), Expires: 12/29/2022 Start: 10-02-2021 DEPRESSION ASSESSMENT DEPRESSION ASS ESSMENT [facility] Start: 08-19-2021 COVID-19 VACCINE (3 - Pfizer risk 4-dose series) COVID-19 VACCINE (3 - Pfizer risk 4-dose series) [facility] Start: 08-19-2021 COVID-19 VACCINE (3 - Pfizer risk series) COVID-19 VACCINE (3 - Pfizer risk series) [facility] Start: 06-02-2021 Influenza vaccination INFLUENZA (#1) [facility] Start: 06-02-2020 Influenza vaccinatio n given Sequential Influenza Vaccine (#1) [facility] Start: 10-15-2019 End: 10-15-2019 Office Visit 10/15/2019 Office Visit Wound Care [facility] Start: 09-04-2019 End: 09-04-2019 Hospital Encounter [facility] Comment on above: LEFT TOTAL ELBOW ART HROPLASTY WITH ULNAR NERVE RELEASE WITH ANTERIOR TRANSPOSITION, EXCISION RADIAL HEAD Start: 07-20-2019 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 ANNUAL PCP TEAM CHRONIC DISEASE VISIT [facility] Start: 06-02-2019 Influenza vaccinatio n given [facility] Start: 2019 RSV Vaccine (1 - 1-d ose 60+ series) RSV Vaccine (1 - 1-dose 60+ series) [facility] Start: 04-30-2019 End: 04-30-2019 Office Visit 04/30/2019 Office Visit Wound Care [facility] Start: 02-27-2019 End: 02-27-2019 Hospital Encounter [facility] Comment on above: RIGHT TOTAL ELBOW AR THROPLASTY, ULNAR NERVE RELEASE WITH ANTERIOR TRANSPOSITION, RADIAL HEAD EXCISION Start: 02-21-2019 End: 02-21-2020 XR Cervical Spine with Flexion and Extension 6+ Views XR Cervical Spine with Flexion and Extension 6+ Views Imaging Routine Pre-op exam Expected: 02/21/2019, Expires: 02/21/2020 [facility] Comment on above: Expected: 02/21/2019 , Expires: 02/21/2020 Start: 2009 Administration of he rpes zoster vaccine Zoster Vaccines (1 of 2) [facility] Start: 2009 Screening for malign ant neoplasm of colon [facility] Start: 2009 SHINGRIX VACCINE (1 of 2) SHINGRIX VACCINE (1 of 2) [facility] Start: 2004 COLOGUARD (FIT-DNA) COLOGUARD (FIT-D NA) [facility] Start: 2004 Colonoscopy COLONOSCOPY [facility] Start: 2004 COLORECTAL CANCER SCREENING COLORECTAL CANCER SCREENING [facility] Start: [address] COLONOGRAPHY [facility] Start: 2004 FECAL OCCULT BLOOD FECAL OCCULT BLOO D [facility] Start: 2004 Screening for malign ant neoplasm of colon [facility] Start: 2004 [facility] Start: 1999 Mammography [facility] Start: 1999 Screening for malign ant neoplasm of breast Mammogram Screening [facility] Start: 1989 HPV TESTING HPV TESTING [facility] Start: 1989 Screening for malign ant neoplasm of cervix HPV Testing [facility] Start: 1980 PAP TESTING PAP TESTING [facility] Start: 1980 Screening for malign ant neoplasm of cervix Pap Testing [facility] Start: 1978 SHINGRIX VACCINE (1 of 2) SHINGRIX VACCINE (1 of 2) [facility] Start: 1978 Urine microalbumin profile [facility] Start: 1977 Annual PCP Team [employer]er tiffanie Disease Visit Annual PCP Team Chronic Disease Visit [facility] Start: 1977 Anxiety Screening Anxiety Screening [facility] Start: 1977 BP CONTROLLED (<130/80) BP CONTROLLE D (<130/80) [facility] Start: 1977 Depression Screening Depression Scre ening [facility] Start: 1977 Hepatitis B surface antibody level LDL CHOLESTEROL [facility] Start: 1977 Hepatitis C antibody , confirmatory test Hepatitis C Screening [facility] Start: 1977 HIV SCREENING HIV SCREENING [facility] Start: 1977 HIV screening HIV Screening [facility] Start: 1977 SPIROMETRY SPIROMETRY [facility] Start: 1975 COVID-19 Vaccine (1 of 2) COVID-19 Vaccine (1 of 2) [facility] Start: 1975 ONE PNEUMOVAX PRIOR TO AGE 65 ONE PNEUMOVAX PRIOR TO AGE 65 [facility] Start: 1974 HIV screening HIV Screening [facility] Start: 1971 Adolescent depressio n screening assessment Depression Screening (PHQ9) [facility] Start: 1970 Screening for malign ant neoplasm of cervix Cervical Cancer Screening [facility] Start: 1969 3 comp foot exam completed DIABETIC FOOT EXAM [facility] Start: 1969 Albumin DL <= 20 mg/ L mass conc (U) URINE MICROALBUMIN [facility] Start: 1969 Diabetic foot examination [facility] Start: 1969 Glaucoma screening Dilated Retinal E xam [facility] Start: 1969 Hepatitis B screening URINE ALBUMIN:CREATININE RATIO [facility] Start: 1969 Hepatitis C antibody , confirmatory test DILATED RETINAL EXAM [facility] Start: 1969 Ophthalmic examinati on and evaluation Ophthalmology Exam [facility] Start: 1965 PNEUMOCOCCAL (1 - PCV) PNEUMOCOCCAL (1 - PCV) [facility] Start: 1965 Pneumococcal vaccination [facility] Start: 1965 Pneumococcal Vaccine : 65+ (1 of 2 - PCV) Pneumococcal Vaccine: 65+ (1 of 2 - PCV) [facility] Start: 1964 Hemoglobin A1c measurement HbA1C [facility] Start: 1964 Hemoglobin A1c/Hemoglobin.total in Blood HBA1C [facility] Start: 1962 History and physical examination, annual for health maintenance Wellness Visit [facility] Start: 1959 Hemoglobin A1c/Hemoglobin.total mass fraction (Bld) A1C [facility] Start: 1959 Hepatitis C antibody , confirmatory test HEPATITIS C SCREENING [facility] Start: 1959 Protein mass conc Mammogram [facility] Start: 1959 Screening for malign ant neoplasm of cervix PAP SMEAR [facility] Start: 1959 Screening for malign ant neoplasm of colon Colorectal Cancer Screening: Colonoscopy [facility] Start: 1959 Screening mammography Mammogram [facility] Start: 1959 Tetanus vaccination [facility] 12 lead ECG [facility] Comment on above: Ordered: 02/20/2019 Ordered: 08/26/2019 Anaerobic microbial culture Tissue Anaerobic Culture Microbiology Routine Skin ulcer of elbow with fat layer exposed (HCC) 10/08/2019 11:20 AM EST [facility] End: 06-17-2025 BD DXA TRABECULAR BONE SCORE (TBS) BD DXA TRABECULAR BONE SCORE (TBS) Radiology Routine Postmenopausal osteoporosis of multiple sites 1 Occurrences starting 05/18/2024 until 06/17/2025 [facility] Comment on above: 1 Occurrences starti ng 05/18/2024 until 06/17/2025 End: 06-17-2025 DXA Skeletal system.axial Views for bone density DXA-AXIAL SKELETON Radiology Routine Postmenopausal osteoporosis of multiple sites 1 Occurrences starting 05/18/2024 until 06/17/2025 [facility] Comment on above: 1 Occurrences starti ng 05/18/2024 until 06/17/2025 End: 06-17-2025 DXA-FOREARM SKELETON DXA-FOREARM SKELETON Radiology Routine Postmenopausal osteoporosis of multiple sites 1 Occurrences starting 05/18/2024 until 06/17/2025 [facility] Work Phone: Comment on above: 1 Occurrences starti ng 05/18/2024 until 06/17/2025 Tissue culture Tissue Aerobic C ulture Microbiology Routine Skin ulcer of elbow with fat layer exposed (HCC) 10/08/2019 11:20 AM EST [facility] XR Cervical Spine wi th Flexion and Extension 6+ Views XR Cervical Spine with Flexion and Extension 6+ Views Imaging Routine Pre-op exam 02/21/2019 1:43 PM EDT [facility] End: 06-17-2024 XR Hand - bilateral PA and Lateral and Oblique XR HAND GENERAL 3V PA/LAT/OBL BILATERAL Radiology Routine Trigger middle finger of right hand Bilateral hand pain 1 Occurrences starting 05/18/2024 until 06/17/2024 [facility] Comment on above: 1 Occurrences starti ng 05/18/2024 until 06/17/2024 XR Hand - bilateral PA and Lateral and Oblique XR HAND GENERAL 3V PA/LAT/OBL BILATERAL Radiology Routine Trigger middle finger of right hand Bilateral hand pain 06/06/2024 9:32 AM EDT [facility] Work Phone: [facility] Immunizations Immunization Date Immunization Notes Care Provider Fa cility 05-30-2020 influenza, injectabl e, quadrivalent, preservative free Pepe Carter MD Work Phone: [facility] 05-30-2020 influenza virus vacc ine, unspecified formulation Pepe Carter MD Work Phone: [facility] 09-03-2018 Influenza, injectabl e, Madin Vance Canine Kidney, preservative free, quadrivalent Pepe Carter MD Work Phone: [facility] Payers Date Payer Category Payer Medicare HUMANA MEDICARE HU[employer]NA GOLD PLUS [id number] 2021-Present [phone] [id number] [place] [phone] [facility] [id number] 2021 Medicare HUMANA MEDICARE HUMANA GOLD PLUS [id number] 2021-Present [id number] [place] [id number] HMO [id number] 2018 Unknown ANTHEM ANTHEM BLUE/PREF/HMO/PPO [id number] 2018-Present [id number] 2018 Unknown [id number] 2018 Unknown [id number] 2018 Unknown ANTHEM ANTHEM BLUE/PREF/HMO/PPO [id number] 2018-Present [id number] 1959 Medicare [id number] 1959 Unknown [id number] 1959 Unknown [id number] 1959 Unknown [id number] 1959 Unknown [id number] 1959 Unknown [id number] 1959 Unknown [id number] 1959 Unknown [id number] 1960 Unknown [id number] 1960 Unknown [id number] 1959 Unknown [id number] 1959 Unknown [id number] 1959 Unknown [id number] 1959 Unknown [id number] 1959 Unknown [id number] 1959 Unknown [id number] 1959 Unknown [id number] 1959 Unknown [id number] 1959 Unknown [id number] Social History Date Type Detail Facility Start: 02-21-2019 End: 05-18-2024 Tobacco smoking status NHIS Never smoker [facility] Work Phone: Start: 02-21-2019 History SDOH Alcohol Frequency 1 [facility] Sex Assigned At Not on file [facility] Start: 08-28-2019 End: 09-05-2019 Alcohol intake Lifetime non-drinker (finding) [facility] Start: 12-18-2021 End: 08-11-2022 Exposure to SARS-CoV-2 (event) Not sure [facility] Start: 04-09-2020 End: 05-18-2024 Tobacco use and exposure Never used [facility] Start: 07-26-2021 End: 05-18-2024 Alcohol intake Current non-drinker of alcohol (finding) [facility] Start: 1960 Sex Assigned At Female [facility] Start: 12-20-2021 End: 12-30-2021 Exposure to SARS-CoV-2 (event) Unable to assess [facility] Start: 07-26-2021 End: 02-20-2023 History of Social function [facility] Start: 07-26-2021 End: 02-20-2023 Tobacco use panel [facility] Adult Depression Screening Assessment 3 [facility] Start: 01-06-2021 Gender identity Identifies as female gender (finding) [facility] Start: 01-06-2021 Sexual orientation Heterosexual (fin danielle) [facility] NEGATED: Highlighted rowStart: NINF History of tobacco use Passive smoker [facility] Medical Equipment Procedure Code Equipment Code Equipment Origin al Text Equipment Identifier Dates Cement Bone Anti biotic Simplex P W/Tobramycin Single Dose - [id number] Start: 02-27-2019 Cement Bone Anti biotic Simplex P W/Tobramycin Single Dose - [id number] Start: 02-27-2019 Plug 10mm Cement Sm Diameter - [id number], [id number] FDA Start: 02-27-2019 Component 3in Ul na Plasma Xsm Rt C/M - [id number], [id number] FDA Start: 02-27-2019 Component 4in Hu meral Xsm C/M - [id number] , [id number] FDA Start: 02-27-2019 Cement Bone Anti biotic Simplex P W/Tobramycin Single Dose - [id number] Start: 09-04-2019 Plug 8mm Cement Sm Diameter - [id number] Start: 09-04-2019 Plug 8-10mm Sm I m Canal - [id number] Start: 09-04-2019 Alicia/Pillo To charis Elbow Interchangeable Humeral Assembly Extra Small 4 Inch Length [id number] Start: 09-04-2019 Cokevon/Pillo T otal Elbow Interchangeable Ulnar Assembly Extrasmall Left 3 Inch [id number] Start: 09-04-2019 Plug 8-10mm Sm I m Canal - [id number] Start: 09-04-2019 [id number] Start: 11-18-2016 End: 08-11-2022 Comment on above: [...] Type Note Facility 06-06-2024 Note HNO ID: [id number] Author: MAGNOLIA NEWMAN RT(Jimbo) Service: ? 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: No RADIOLOGY DEPARTMENT: General X-ray: Exam(s) Completed: Upper Extremity X-Ray(s): Hand, bilateral PERIPHERAL IV DATA: Not applicable SIGNED BY: RT Theodora(R) June 06, 2024 9:32 AM [facility] 05-18-2024 History of Present illness Narrative Face [...] 15, crp 0.7, vitamin D 34.8, vitamin m24-8785;negative quantiferon tb; Patient's request for medication is [...] start fall precautions, see pain clinic for fdc pain recommendations/due for back injections, see neurosurgeon L5-S1 surgery, improved with prednisone/take for flares morgan, follow up with UE/hand ortho/postponing R shoulder/wrist surgeries, 40mg kenalog IM 09/16/15, f/u with GI for GI issues eval, much improved with rinvoq daily/received by [facility], continue sq 1ml once every other week [...] visit supportive care, see pain clinic for fdc pain recommendations/due for back injections, see neurosurgeon/due [...] asthma, much improved with rinvoq daily/received by [facility], continue sq 1ml once every other week injections methotrexate (HOLD 1-2weeks after vaccines), ssz 500mg 3times a day, daily arava, OFF plaquenil, prozac and f/u with PCP for adjustment, nightly and prn wrist splints, PT exercises for contractures, eyedrops per ophthalmology 02/20/23:due for bmd after 11/27/22. [facility] 11/27/20 BMD osteopenia. 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 Had TapMyBack 07/01/21, 07/22/21. wants to return to xeljanz [...] visit supportive care, see pain clinic for fdc pain recommendations/due for back injections, see neurosurgeon/due [...] for possible surgery eval. Had BMD in [facility], no response. Saw pain clinic and on [...] Almanzar is admitting pt to hospital in [place] to debride wound she has on her [...] pain. 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 [place] better on xeljanz and did not have [...] throat. Hoarse voice. Around ill patients at [facility]. Declined tablet survey. Tired. Feeling better since [...] buttocks, right arm/bicep whole body flare . [place] great when taking xeljanz XR for two [...] with prozac (started nexium). 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 TESTS: 05/14/24 high glucose 237, esr [...] 15, crp 0.7, vitamin D 34.8, vitamin h65-8503;negative quantiferon tb; Patient's request for medication is as follows: 05/24/23 low potassium 3.4;high esr 35, crp 0.9;normal rest of cbc, cmp, vitamin D 41.5, vitamin h16-9883; 02/16/23 high glucose 260(328), esr 27 (60);normal rest of cmp, cbc, crp<0.3, (3), vitamin D 42.3; 07/29/22 high esr 60 (30), crp 3 (0.7), glucose 328;normal rest of cmp, cbc, vitamin D 36.8; 12/28/21 low potassium 3.3;high esr 30 (44), glucose 339 (480);NL rest of cbc, cmp, vitamin y81-1585, vitamin D 31.5;negative quantiferon tb, hepatitis panel [...] of cmp, cbc, vitamin D 43.5, vitamin i07-4494;negative quantiferon tb; [facility] 11/27/20 BMD osteopenia L1/L3/L4 1.102 g/cm2, tscore-More than half of todays over 40 minute ihte-om-ufup office visit was spent in counselling/coordination of care, zscore2;L fem neck 0.808g/cm2, tscreo-0.4, zscore1;Total L hip 0.946g/cm2, tscore 0, zscore1.1;R fem neck 0.662g/cm2, tscore-1.7, zscore-0.3, Total R hip 0.781g/cm2, tscore-1, zscore0.3;L foreamr 0.505g/cm2, tscore-1.2, zscore0.3; FRAX major osteoporotic fracture risk 11%;hip fracture risk 1.2%; [facility] 11/27/20 lumbar xrays-mild osteopenia. Significant disc narrowing [...] in diameter. A joint effusion is present [facility] 09/21/15 GI study- unremarkable air contrast upper GI exam [facility] 09/21/15 abdominal ultasound/echo= degree of hepatic steatosis. 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 Had BMD in [facility]. saw pulm 11/2021, no rheumatoid arthritis associated ILD. Had COVID19 infection in 05/2022 treated with steroids and inhalers. 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 3rd grandchild (boy) 11/2022. [facility] 11/27/20 BMD osteopenia.Numbness of left 4th/5th and [...] 15, crp 0.7, vitamin D 34.8, vitamin h16-6797;negative quantiferon tb; Patient's request for medication is [...] start fall precautions, see pain clinic for fdc pain recommendations/due for back injections, see neurosurgeon L5-S1 surgery, improved with prednisone/take for flares morgan, follow up with UE/hand ortho/postponing R shoulder/wrist surgeries, 40mg kenalog IM 09/16/15, f/u with GI for GI issues eval, much improved with rinvoq daily/received by [facility], continue sq 1ml once every other week [...] 1, pain 50%;06/30/14 BENJAMIN 1.75, pain 90%;07/03/13 BNEJAMIN 1.75, pain 80%;3/11/13 BENJAMIN 1, pain 80%;08/22/12 [...] of Care,spent more than 50% of the fsgv-wz-zzdc time in counseling, explanation of diagnosis, and planning of further management, I spent a total of 30 minutes on the date of the service which included preparing to see the patient, nnnf-ee-jxla patient care, completing clinical documentation, obtaining and/or [...] (ID); (ortho);Dr.Douglas Schafer documented in this encounter [facility] 05-18-2024 Note HNO ID: [id number] Author: PEPE CARTER MD Service: ? Author [...] 15, crp 0.7, vitamin D 34.8, vitamin c58-5401;negative quantiferon tb; Patient's request for medication is [...] start fall precautions, see pain clinic for fdc pain recommendations/due for back injections, see neurosurgeon L5-S1 surgery, improved with prednisone/take for flares morgan, follow up with UE/hand ortho/postponing R shoulder/wrist surgeries, 40mg kenalog IM 09/16/15, f/u with GI for GI issues eval, much improved with rinvoq daily/received by [facility], continue sq 1ml once every other week [...] visit supportive care, see pain clinic for fdc pain recommendations/due for back injections, see neurosurgeon/due [...] asthma, much improved with rinvoq daily/received by [facility], continue sq 1ml once every other week injections methotrexate (HOLD 1-2 (more content not included)... [facility] 05-17-2024 Instructions Pepe Carter MD - 05/17/2024 [...] the flow of saliva in many patients. Tibes flavored sugarless tablets and sugar-free chewing gum [...] called punctal occlusion. In this procedure, an motel front desk clerk inserts small plugs into the tear ducts [...] be highly individualized. In virtually every [facility] area, the [employer] is engaged in [...] usual activities immediately. documented in this encounter [facility] 05-16-2024 Telephone encounter Note Notified patient of below, verbal understanding. [facility] 05-16-2024 Miscellaneous Notes Notified patient of below, [...] 15, crp 0.7, vitamin D 34.8, vitamin o05-7169;negative quantiferon tb; Patient's request for medication is [...] Pepe Carter MD documented in this encounter [facility] 05-15-2024 Telephone encounter Note Please Call patient [...] 15, crp 0.7, vitamin D 34.8, vitamin d61-6489;negative quantiferon tb; Patient's request for medication is as follows: Requested Prescriptions Signed Prescriptions Disp Refills ergocalciferol 50,000 unit capsule (VITAMIN D2, DRISDOL) 16 capsule 0 Sig: (take by mouth with food twice a week, ONE CAPSULE ON MONDAY AND ONE ON MONDAY) FOR A TOTAL OF 8 WEEKS. Authorizing Provider: PEPE CARTER Prescription(s) as above. Please process accordingly. Pepe Carter MD [facility] 01-04-2024 Miscellaneous Notes Left below message as [...] Lm regarding results and recommendations sent via [employer]. Please call patient. Thank you for the [...] calling: self Call patient at: on cell [phone] (home) [phone] (cell) Was an appointment scheduled: No Closing statement: Symptom Call: Thank you for calling [facility], your call is very important. A nurse will call in approximately 2-4 hours during business hours. If this is an emergency, please contact 911. Rose Subramanian documented in this encounter [facility] 11-23-2023 History of Present illness Narrative Face [...] visit supportive care, see pain clinic for fdc pain recommendations/due for back injections, see neurosurgeon/due [...] asthma, much improved with rinvoq daily/received by [facility], continue sq 1ml once every other week injections methotrexate (HOLD 1-2weeks after vaccines), ssz 500mg 3times a day, daily arava, OFF plaquenil, prozac and f/u with PCP for adjustment, nightly and prn wrist splints, PT exercises for contractures, eyedrops per ophthalmology 02/20/23:due for bmd after 11/27/22. [facility] 11/27/20 BMD osteopenia. 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 COVID vaccine Chimerix 07/01/21, 07/22/21. 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 3rd grandchild (boy) [...] visit supportive care, see pain clinic for intermediate project manager pain recommendations/due for back injections, see neurosurgeon/due [...] upper back, due to see surgery. Had TapMyBack 07/01/21, 07/22/21. wants to return to xeljanz [...] visit supportive care, see pain clinic for intermediate project manager pain recommendations/due for back injections, see neurosurgeon/due [...] for possible surgery eval. Had BMD in [facility], no response. Saw pain clinic and on [...] Almanzar is admitting pt to hospital in [place] to debride wound she has on her [...] pain. 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 [place] better on xeljanz and did not have [...] throat. Hoarse voice. Around ill patients at [facility]. Declined tablet survey. Tired. Feeling better since [...] buttocks, right arm/bicep whole body flare . [place] great when taking xeljanz XR for two [...] with prozac (started nexium). 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 TESTS: 05/24/23 low potassium 3.4;high esr 35, crp 0.9;normal rest of cbc, cmp, vitamin D 41.5, vitamin o46-0983; 02/16/23 high glucose 260(328), esr 27 (60);normal rest of cmp, cbc, crp<0.3, (3), vitamin D 42.3; 07/29/22 high esr 60 (30), crp 3 (0.7), glucose 328;normal rest of cmp, cbc, vitamin D 36.8; 12/28/21 low potassium 3.3;high esr 30 (44), glucose 339 (480);NL rest of cbc, cmp, vitamin p74-7158, vitamin D 31.5;negative quantiferon tb, hepatitis panel [...] of cmp, cbc, vitamin D 43.5, vitamin t55-3187;negative quantiferon tb; [facility] 11/27/20 BMD osteopenia L1/L3/L4 1.102 g/cm2, tscore-More than half of todays over 40 minute jvcl-nb-twfb office visit was spent in counselling/coordination of care, zscore2;L fem neck 0.808g/cm2, tscreo-0.4, zscore1;Total L hip 0.946g/cm2, tscore 0, zscore1.1;R fem neck 0.662g/cm2, tscore-1.7, zscore-0.3, Total R hip 0.781g/cm2, tscore-1, zscore0.3;L foreamr 0.505g/cm2, tscore-1.2, zscore0.3; FRAX major osteoporotic fracture risk 11%;hip fracture risk 1.2%; [facility] 11/27/20 lumbar xrays-mild osteopenia. Significant disc narrowing [...] in diameter. A joint effusion is present [facility] 09/21/15 GI study- unremarkable air contrast upper GI exam [facility] 09/21/15 abdominal ultasound/echo= degree of hepatic steatosis. 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 Had BMD in [facility]. saw pulm 11/2021, no rheumatoid arthritis associated ILD. Had COVID19 infection in 05/2022 treated with steroids and inhalers. 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 3rd grandchild (boy) 11/2022. [facility] 11/27/20 BMD osteopenia.Numbness of left 4th/5th and [...] start fall precautions, see pain clinic for fdc pain recommendations/due for back injections, see neurosurgeon L5-S1 surgery, improved with prednisone/take for flares morgan, follow up with UE/hand ortho/postponing R shoulder/wrist surgeries, 40mg kenalog IM 09/16/15, f/u with GI for GI issues eval, much improved with rinvoq daily/received by [facility], continue sq 1ml once every other week [...] of Care,spent more than 50% of the qjhf-bb-tgtd time in counseling, explanation of diagnosis, and planning of further management, I spent a total of 30 minutes on the date of the service which included preparing to see the patient, duwm-xc-xnok patient care, completing clinical documentation, obtaining and/or [...] (ID); (ortho);Dr.Douglas Schafer documented in this encounter [facility] 11-23-2023 Note HNO ID: [id number] Author: PEPE CARTER MD Service: ? Author [...] visit supportive care, see pain clinic for intermediate project manager pain recommendations/due for back injections, see neurosurgeon/due [...] asthma, much improved with rinvoq daily/received by [facility], continue sq 1ml once every other week injections methotrexate (HOLD 1-2weeks after vaccines), ssz 500mg 3times a day, daily arava, OFF plaquenil, prozac and f/u with PCP for adjustment, nightly and prn wrist splints, PT exercises for contractures, eyedrops per ophthalmology 02/20/23:due for bmd after 11/27/22. [facility] 11/27/20 BMD osteopenia. taking sulfasalazine tab 3times [...] visit supportive care, see pain clinic for intermediate project manager pain recommendations/due for back injections, see neurosurgeon/due [...] worsens asthma, rinvoq daily/restart when received by [facility], continue sq 1ml once every other week injections methotrexate (HOLD 1-2weeks after vaccines), ssz 500mg 3times a day, daily arava, OFF plaquenil, prozac and f/u with PCP for adjustment, nightly and prn wrist splints, PT exercises for contractures, eyedrops per ophthalmology, 08/11/22:saw pulm 11/2021, no rheumatoid arthritis associated ILD. Had COVID19 infection in 05/2022 treated with (more content not included)... [facility] 11-22-2023 Instructions Pepe Carter MD - 11/22/2023 [...] the flow of saliva in many patients. Tibes flavored sugarless tablets and sugar-free chewing gum [...] called punctal occlusion. In this procedure, an motel front desk clerk inserts small plugs into the tear ducts [...] be highly individualized. In virtually every [facility] area, the [employer] is engaged in [...] Website at [email or web address]. documented in this encounter [facility] 07-12-2023 Miscellaneous Notes Form faxed with confirmation. Form completed. Please process accordingly. Scan copy into [employer]. Notify patient when above completed. Recall in script when approved if needed. Thank you. Received refill request from [employer]. Form placed on your desk for signature. documented in this encounter [facility] 05-29-2023 Miscellaneous Notes patient has viewed the [employer] message per [employer]. Please Call patient if [facility] note not read to review results/released to My Chart if tests completed at [facility]: Mildly low normal potassium- increase potassium intake, [...] of cbc, cmp, vitamin D 41.5, vitamin d80-1045; --- 02/16/23 high glucose 260(328), esr 27 (60);normal rest of cmp, cbc, crp<0.3, (3), vitamin D 42.3; documented in this encounter [facility] 08-11-2022 History of Present illness Narrative Face [...] Several hours minimal AM stiffness. COVID vaccine Chimerix 07/01/21, 07/22/21. 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 3rd grandchild (boy) [...] visit supportive care, see pain clinic for intermediate project manager pain recommendations/due for back injections, see neurosurgeon/due [...] upper back, due to see surgery. Had TapMyBack 07/01/21, 07/22/21. wants to return to xeljanz [...] visit supportive care, see pain clinic for fdc pain recommendations/due for back injections, see neurosurgeon/due [...] for possible surgery eval. Had BMD [facility], no response. Saw pain clinic and on [...] Almanzar is admitting pt to hospital in [place] to debride wound she has on her [...] pain. 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 [place] better on xeljanz and did not have [...] throat. Hoarse voice. Around ill patients at [facility]. Declined tablet survey. Tired. Feeling better since [...] buttocks, right arm/bicep whole body flare . [place] great when taking xeljanz XR for two [...] with prozac (started nexium). 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:07/29/22 high esr 60 (30), crp 3 (0.7), glucose 328;normal rest of cmp, cbc, vitamin D 36.8; 12/28/21 low potassium 3.3;high esr 30 (44), glucose 339 (480);NL rest of cbc, cmp, vitamin r57-7133, vitamin D 31.5;negative quantiferon tb, hepatitis panel [...] of cmp, cbc, vitamin D 43.5, vitamin r42-0285;negative quantiferon tb; [facility] 11/27/20 BMD osteopenia L1/L3/L4 1.102 g/cm2, tscore-More than half of todays over 40 minute peqt-yt-dwoe office visit was spent in counselling/coordination of care, zscore2;L fem neck 0.808g/cm2, tscreo-0.4, zscore1;Total L hip 0.946g/cm2, tscore 0, zscore1.1;R fem neck 0.662g/cm2, tscore-1.7, zscore-0.3, Total R hip 0.781g/cm2, tscore-1, zscore0.3;L foreamr 0.505g/cm2, tscore-1.2, zscore0.3; FRAX major osteoporotic fracture risk 11%;hip fracture risk 1.2%; [facility] 11/27/20 lumbar xrays-mild osteopenia. Significant disc narrowing [...] in diameter. A joint effusion is present [facility] 09/21/15 GI study- unremarkable air contrast upper GI exam [facility] 09/21/15 abdominal ultasound/echo= degree of hepatic steatosis. 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 Had BMD [facility]. saw pulm 11/2021, no rheumatoid arthritis associated [...] = supportive care, see pain clinic for fdc pain recommendations/due for back injections, see neurosurgeon/due [...] worsens asthma, rinvoq daily/restart when received by [facility], continue sq 1ml once every other week [...] of Care,spent more than 50% of the wckc-ce-rwvz time in counseling, explanation of diagnosis, and planning of further management, I spent a total of 30 minutes on the date of the service which included preparing to see the patient, dsnx-yj-bjup patient care, completing clinical documentation, obtaining and/or [...] (ID); (ortho);Dr.Douglas Schafer documented in this encounter [facility] 08-11-2022 Instructions Pepe Carter MD - 08/11/2022 [...] the flow of saliva in many patients. Tibes flavored sugarless tablets and sugar-free chewing gum [...] called punctal occlusion. In this procedure, an motel front desk clerk inserts small plugs into the tear ducts [...] Website at [email or web address]. documented in this encounter [facility] 08-01-2022 Miscellaneous Notes Pt was notified via [...] 339 (480);NL rest of cbc, cmp, vitamin f87-4359, vitamin D 31.5;negative quantiferon tb, hepatitis panel [...] soft tissue swelling. documented in this encounter [facility] 07-29-2022 Miscellaneous Notes Labs are done. Notify [...] these orders. Patient is enrolled in the [facility] free drug program. Thank you Requested Prescriptions Pending Prescriptions Disp Refills upadacitinib (RINVOQ) Tb24 tablet 90 tablet 3 Sig: Take 1 tablet (15 mg) by mouth once daily. Swallow whole; DO NOT crush, chew, or open. Hold if on antibiotics or ill. Hold 1weeks after vaccines. Please review and advise. David Wilson RPh documented in this encounter [facility] 07-27-2022 Miscellaneous Notes Patient has been scheduled as requested for 07/29/22. I spoke with Hossein and she is aware of all of the appointment details. Mary SUBRAMANIAN July 27, 2022 10:54 AM Please call and schedule nonfasting labs this month (active since 03/2022); Please send new script to [facility] if needed Notify office if not received. [...] get refills. This was done through the [employer] and encounter from 12/17/21 states approved through the end of the year. Patient had received a 3 month supply but no refills since then and she does not know who to contact. Patient has upcoming appointment on 08/11/2022. Pharmacy should not be [facility] - should be [facility]. Patient has been identified by [...] [place]. Bettye Orr documented in this encounter [facility] 04-18-2022 Miscellaneous Notes Please notify patient Patient's [...] Days Visit Type Date Time Department [facility] 08/11/2022 9:20 AM [facility] CBC: CBC Latest Ref Rng & [...] Anastasiia Ballard MA documented in this encounter [facility] 12-30-2021 Instructions Janel Chi APRN.DOG LICENSE OFFICER SUPERVISOR - 12/30/2021 3:29 PM EDT May apply [...] the flow of saliva in many patients. Tibes flavored sugarless tablets and sugar-free chewing gum [...] called punctal occlusion. In this procedure, an motel front desk clerk inserts small plugs into the tear ducts [...] be highly individualized. In virtually every [facility] area, the [employer] is engaged in [...] Website at [email or web address]. documented in this encounter [facility] 12-30-2021 History of Present illness Narrative DISTANCE [...] hand pain Per Dr. 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 Had TapMyBack 07/01/21, 07/22/21. wants to return to xeljanz since it did not cause lung issues vs humira/worsens breathing/asthma. More joint pain if stretching humira to every 3weeks. Still taking gabapentin. Reports pain 05/11. Moderate AM stiffness several hours. Nodule on L elbow. Numbness and tingling of 4th/5th fingers after L elbow surgery. Had BMD in [facility]. Feels safe at home. Has enough food, supplies and medications. Overall mildly uncomfortable but happy with rheum care = supportive care, see pain clinic for fdc pain recommendations/due for back injections, see neurosurgeon/due [...] 339 (480);NL rest of cbc, cmp, vitamin [id number], vitamin D 31.5;negative hepatitis panel except +hepB [...] the care of your patient. Janel Chi APRN.[facility] cc Pretty Fermin MD, MD Patient Instructions [...] the flow of saliva in many patients. Tibes flavored sugarless tablets and sugar-free chewing gum [...] called punctal occlusion. In this procedure, an motel front desk clerk inserts small plugs into the tear ducts [...] be highly individualized. In virtually every [facility] area, the [employer] is engaged in [...] the flow of saliva in many patients. Tibes flavored sugarless tablets and sugar-free chewing gum [...] called punctal occlusion. In this procedure, an motel front desk clerk inserts small plugs into the tear ducts [...] be highly individualized. In virtually every [facility] area, the [employer] is engaged in [...] 104 53 - 334 mg/dL Final MPA [place], Serum Date Value Ref Range Status 02/18/2011 1190 534 - 1267 mg/dL Final MPA Lambda, Serum Date Value Ref Range Status 02/18/2011 675 (H) 253 - 653 mg/dL Final MPA [place]/Lambda Ratio Date Value Ref Range Status 02/18/2011 [...] 32.4 sec 28.5 documented in this encounter [facility] 12-29-2021 Miscellaneous Notes Pt identified by name [...] 339 (480);NL rest of cbc, cmp, vitamin u39-0889, vitamin D 31.5;negative hepatitis panel except +hepB [...] soft tissue swelling. documented in this encounter [facility] Evaluation note Diagnosis Rheumatoid arthritis of multiple sites without organ or system involvement with positive rheumatoid factor (HCC)- Primary Elevated LFTs Other abnormal blood chemistry Anemia of chronic disease Anemia of other chronic disease Elevated sed rate Elevated sedimentation rate Elevated C-reactive protein (CRP) Vitamin D deficiency Unspecified vitamin D deficiency [facility] Diagnosis Rheumatoid arthritis of multiple sites [...] Pain in [facility] Fibromyalgia Mylagia and myositis, unspecified Postherpetic neuralgia Herpes zoster with other nervous system complications Bilateral carpal tunnel syndrome Carpal tunnel syndrome [facility] Diagnosis Rheumatoid arthritis of multiple sites without organ or system involvement with positive rheumatoid factor (HCC) [facility] Diagnosis Rheumatoid arthritis of multiple sites without organ or system involvement with positive rheumatoid factor (HCC) [facility] Diagnosis Rheumatoid arthritis of multiple sites without organ or system involvement with positive rheumatoid factor (HCC)- Primary Elevated LFTs Other abnormal blood chemistry Anemia of chronic disease Anemia of other chronic disease Elevated sed rate Elevated sedimentation rate Elevated C-reactive protein (CRP) Vitamin D deficiency Unspecified vitamin D deficiency [facility] Diagnosis Rheumatoid arthritis of multiple [...] abnormal blood chemistry [facility] [place] [facility] Diagnosis Chronic elbow pain, left documented in this encounter [facility] note* Diagnosis Rheumatoid arthritis of multiple sites [...] for pulmonary tuberculosis [facility] [place] [facility] Diagnosis Rheumatoid arthritis of multiple sites [...] D deficiency [facility] [place] Diagnosis Rheumatoid arthritis of multiple sites without organ or system involvement with positive rheumatoid factor (HCC)- Primary Elevated LFTs Other abnormal blood chemistry Anemia of chronic disease Anemia of other chronic disease Elevated sed rate Elevated sedimentation rate Elevated C-reactive protein (CRP) Vitamin D deficiency Unspecified vitamin D deficiency [facility] [place] [facility]* Diagnosis Lumbar foraminal stenosis Spinal stenosis, [...] protein (CRP) Cervicalgia [facility] [place] [facility] Diagnosis Lumbar foraminal stenosis Spinal stenosis, [...] Pain in limb [facility] Diagnostic Procedure Only (Routine) - Closed Specialty Diagnoses / Procedures Referred By Contac t Referred To Contact XR IMAGING Diagnoses Chronic elbow pain, left Procedures XR ELBOW GENERAL 2V AP/LAT LT X-RAY ELBOW AP/LATERAL Pepe Carter MD [address] [place] [address] Xr Imaging Referral ID Status Reason Start Date Expiration Date V isits Requested Visits Authorized Closed Auto-Generate d Referral 07/26/2021 08/25/2022 1 1 [facility] for visit Narrative* Diagnostic Procedure Only (Routine) - Closed Specialty Diagnoses / Procedures Referred By Contac t Referred To Contact XR IMAGING Diagnoses Chronic elbow pain, left Procedures XR ELBOW GENERAL 2V AP/LAT LT X-RAY ELBOW AP/LATERAL Pepe Carter MD [address] [place] [address] Xr Imaging Referral ID Status Reason Start Date Expiration Date V isits Requested Visits Authorized [id number] Closed Auto-Generate d Referral 07/26/2021 08/25/2022 1 1 [facility] for visit Narrative* Diagnostic Procedure Only (Routine) - Closed Specialty Diagnoses / Procedures Referred By Contac t Referred To Contact XR IMAGING Diagnoses Trigger middle finger of right hand Bilateral hand pain Procedures XR HAND GENERAL 3V PA/LAT/OBL BILATERAL RADEX HAND MINIMUM 3 VIEWS Pepe Carter MD [address] [place] [address] [place] [address] Referral ID Status Reason Start Date Expiration Date V isits Requested Visits Authorized [id number] Closed Auto-Generate d Referral 05/18/2024 06/17/2025 1 1 [facility] Summary Purpose Family History No Family History Records FoundNo Family History Records FoundNo Family History Records FoundNo Family History Records FoundNo Family History Records FoundNo Family History Records FoundNo Family History Records FoundNo Family History Records FoundNo Family History Records FoundNo Family History Records Found Advance Directives No Advanced Directives Records FoundDocuments on File Type Date Recorded 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 Advance Directives and Livin g Will 02/21/2019 11:35 AM Documents on File Type Date Recorded 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 Advance Directives and Livin g Will 02/27/2019 11:35 AM Latest Code Status on File Code Status Date Activated Date Inactivated Comments Full Code 02/27/2019 12:39 PM Documents on File Type Date Recorded 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 Advance Directives and Livin g Will 04/23/2019 2:22 PM Latest Code Status on File Code Status Date Activated Date Inactivated Comments Full Code 02/27/2019 12:39 PM Documents on File Type Date Recorded 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 Advance Directives and Livin g Will 09/04/2019 5:50 AM Latest Code Status on File Code Status Date Activated Date Inactivated Comments Full Code 09/04/2019 4:13 PM Full Code 02/27/2019 12:39 PM 09/04/2019 5:49 AM Documents on File Type Date Recorded 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 Advance Directives and Livin g Will 10/12/2019 1:17 PM Latest Code Status on File Code Status Date Activated Date Inactivated Comments Full Code 10/12/2019 4:09 PM Full Code 09/04/2019 4:13 PM 10/12/2019 12:47 PM Documents on File Type Date Recorded 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 Advance Directives and Livin g Will 04/01/2020 1:24 PM Latest Code Status on File Code Status Date Activated Date Inactivated Comments Full Code 10/12/2019 4:09 PM 04/08/2020 9:15 AM Documents on File Type Date Recorded 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 Advance Directives and Livin g Will 04/01/2020 1:24 PM Latest Code Status on File Code Status Date Activated Date Inactivated Comments Full Code 10/12/2019 4:09 PM 04/08/2020 9:15 AM Full Code 09/04/2019 4:13 PM 10/12/2019 12:47 PM Full Code 02/27/2019 12:39 PM 09/04/2019 5:49 AM Documents on File Type Date Recorded 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 Advance Directives and Livin g Will 09/04/2019 5:50 AM Latest Code Status on File Code Status Date Activated Date Inactivated Comments Full Code 09/04/2019 4:13 PM Documents on File Type Date Recorded 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 Advance Directives and Livin g Will 08/28/2019 12:58 PM Documents on File Type Date Recorded 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 Advance Directive(s) Advance Directive(s) 03/16/2021 12:22 PM Advance Directive(s) 03/15/2021 1:41 PM Advance Directive(s) 01/25/2021 2:47 PM Instructions * Patient Instructions* Sveta Silva, DO - 02/21/2019 12:46 PM EDT If your surgery date changes or you change your surgery date, please call us at [phone] TAKE YOUR BLOOD PRESSURE DAILY (EITHER WITH [...] Catalan Home Medication Instructions Prior to Surgery RICKI:[id number] Printed on:02/21/19 4141 Medication Information Take last dose on Take [...] medications that contain aspirin, such as Patricia [place], Pepto- Bismol, Anacin), antiinflammatory medications such as Advil, Motrin, Ibuprofen, Naproxen, Aleve, Patricia [place], Anacin, Diclofenac, Voltaren, Daypro, Etodolac, Ketoprofen, Piroxicam, Relafen, Nabumetone, etc. Also discontinue Vitamin C, Vitamin E, Putnam-3 Fatty Acid, Fish Oil or Lovaza, and [...] If the bleeding does not stop, call [facility] [phone] or go to the Emergency Room. Signs/Symptoms of Infection: If you have any fever, chills, nausea, vomiting or increased odor, drainage, pain or redness to thewound, call [facility] at [phone]. If after hours, contact your family physician [...] oz cooked 22 Luna 1 slice 3 Thai-style Luna (Back Luna) 1 slice 5-6 Eggs and Dairy Egg Large 6 Milk 1 cup 8 Cottage Cheese cup 15 Yogurt 1 cup 8-12 Algerian Yogurt 6 oz 18 Soft Cheeses (Mozzarella, Brie) 1 oz 6 Medium Cheeses(Cheddar,Gabonese) 1 oz 7-8 Hard Cheeses (Parmesan) 1 oz 10 Beans / Soy Tofu cup 10 Soy Milk 1 cup 6-10 Soy Beans cup cooked 14 Edamame cup 8-12 Most Beans (black, spear, lentils) cup cooked 7-10 Split Peas cup cooked 8 Nuts and Seeds Peanut Butter 2 Tablespoons 8 Peanuts cup 9 Almonds cup 8 Cashews cup 5 Pecans cup 2.5 Mitchell Seeds cup 6 Pumpkin Seeds cup 19 [...] If the bleeding does not stop, call [facility] [phone] or go to the Emergency Room. Signs/Symptoms of Infection: If you have any fever, chills, nausea, vomiting or increased odor, drainage, pain or redness to thewound, call [facility] at [phone]. If after hours, contact your family physician [...] oz cooked 22 Luna 1 slice 3 Thai-style Luna (Back Luna) 1 slice 5-6 Eggs and Dairy Egg Large 6 Milk 1 cup 8 Cottage Cheese cup 15 Yogurt 1 cup 8-12 Algerian Yogurt 6 oz 18 Soft Cheeses (Mozzarella, Brie) 1 oz 6 Medium Cheeses(Cheddar,Gabonese) 1 oz 7-8 Hard Cheeses (Parmesan) 1 oz 10 Beans / Soy Tofu cup 10 Soy Milk 1 cup 6-10 Soy Beans cup cooked 14 Edamame cup 8-12 Most Beans (black, spear, lentils) cup cooked 7-10 Split Peas cup cooked 8 Nuts and Seeds Peanut Butter 2 Tablespoons 8 Peanuts cup 9 Almonds cup 8 Cashews cup 5 Pecans cup 2.5 Mitchell Seeds cup 6 Pumpkin Seeds cup 19 [...] next appointment. Medical Supplies were ordered through [employer], if you have any questions regarding your supply order, please contact their office directly @ [phone]. High Blood Pressure: If your blood pressure [...] If the bleeding does not stop, call [facility] [phone] or go to the Emergency Room. Signs/Symptoms of Infection: If you have any fever, chills, nausea, vomiting or increased odor, drainage, pain or redness to thewound, call [facility] at [phone]. If after hours, contact your family physician [...] oz cooked 22 Luna 1 slice 3 Thai-style Luna (Back Luna) 1 slice 5-6 Eggs and Dairy Egg Large 6 Milk 1 cup 8 Cottage Cheese cup 15 Yogurt 1 cup 8-12 Algerian Yogurt 6 oz 18 Soft Cheeses (Mozzarella, Brie) 1 oz 6 Medium Cheeses(Cheddar,Gabonese) 1 oz 7-8 Hard Cheeses (Parmesan) 1 oz 10 Beans / Soy Tofu cup 10 Soy Milk 1 cup 6-10 Soy Beans cup cooked 14 Edamame cup 8-12 Most Beans (black, spear, lentils) cup cooked 7-10 Split Peas cup cooked 8 Nuts and Seeds Peanut Butter 2 Tablespoons 8 Peanuts cup 9 Almonds cup 8 Cashews cup 5 Pecans cup 2.5 Mitchell Seeds cup 6 Pumpkin Seeds cup 19 [...] Catalan Home Medication Instructions Prior to Surgery RICKI:[id number] Printed on:08/28/19 6929 Medication Information Take last dose on Take the morning of surgery Comment(s) adalimumab (HUMIRA) 40 mg/0.8 mL syringe Inject 40 mg under the skin every 14 (fourteen) days Reasons: rheumatoid arthritis. Stop today if not already stopped. Hold for six weeks after surgery or as directed by your outside b2b sales cholecalciferol, vitamin D3, (VITAMIN D3 ORAL) Take [...] stopped. Resume postop when ok with your outside b2b sales methotrexate 25 mg/mL injection 50 mg once [...] medications that contain aspirin, such as Patricia [place], Pepto- Bismol, Anacin), antiinflammatory medications such as Advil, Motrin, Ibuprofen, Naproxen, Aleve, Patricia [place], Pepto-Bismol, Anacin, Diclofenac, Voltaren, Daypro, Etodolac, Ketoprofen, Piroxicam, Relafen, Nabumetone, etc. Also discontinue Vitamin C, Vitamin E, Putnam-3 Fatty Acid, Fish Oil or Lovaza, and [...] measure Discharge Instructions * Instructions* Alyssia Faria, [facility] - 02/26/2019 General Post-Operative Sheets for Dr. [...] the office to providea new prescription for flower picker at the office and you will be notified when it is ready. Messages left for refills on or Monday may not be able to be given until that following Monday. No pain medication is refilled or prescribed over the weekend. Please keep this in mind when you start getting low on your medication. WITH THE [place] THE PRESCIBED USE OF OPIODS WE [...] number at [facility] is: [phone]. - If you need to make a physical therapy appointment please call [facility] at: [phone] -If you leave a message after normal [...] on the weekends. If possible go to [facility] ER at [address] [place] [address] in [place]. POST OP INSTRUCTIONS - DR. ALMANZAR Activity [...] documented in this encounter* Instructions* Marilyn Ramirez, DOG LICENSE OFFICER SUPERVISOR - 09/04/2019 General Post-Operative Sheets for Dr. [...] the office to providea new prescription for flower picker at the office and you will be notified when it is ready. Messages left for refills on or Monday may not be able to be given until that following Monday. No pain medication is refilled or prescribed over the weekend. Please keep this in mind when you start getting low on your medication. WITH THE NEW [place]WS [place] THE PRESCIBED USE OF OPIODS WE [...] 5pm. - Dr. Almanzar's office number at [facility] is: [phone]. - If you need to make a physical therapy appointment please call AT at: [phone] -If you leave a message after normal [...] on the weekends. If possible go to [facility] ER at [address] [place] [address] in [place]. TOTAL ELBOW POST OP INSTRUCTIONS - DR. [...] in this encounter* Discharge Instr - Wound* Dapnhe Ramirez RN - 10/14/2019 12:14 PM EST Wound vac therapy to run at 125 mmhg continuous suction. L elbow wound bed to be cleansed with normal saline. Black vac foam then to be placed to wound bed and secured with drape. VAC dressing changes to be every M-W- by [facility]. Pt to take pain medication 1 hour before dressing change. * Discharge Instr - Care Coordination* Gera York LSW - 10/14/2019 3:35 PM EST Home Health Care Services: [facility] P: [phone] F: [phone] * Additional Instructions* Marzena Wiley, DOG LICENSE OFFICER SUPERVISOR - 10/14/2019 General Post-Operative Sheets for Dr. [...] the office to providea new prescription for flower picker at the office and you will be notified when it is ready. Messages left for refills on or Monday may not be able to be given until that following Monday. No pain medication is refilled or prescribed over the weekend. Please keep this in mind when you start getting low on your medication. WITH THE NEW [place] THE PRESCIBED USE OF OPIODS WE [...] number at [facility] is: [phone]. - If you need to make a physical therapy appointment please call [facility] at: [phone] -If you leave a message after normal [...] on the weekends. If possible go to [facility] ER at [address] [place] [address] in [place]. POST OP INSTRUCTIONS - DR. ALMANZAR Activity [...] the office to providea new prescription for flower picker at the office and you will be notified when it is ready. Messages left for refills on or Monday may not be able to be given until that following Monday. No pain medication is refilled or prescribed over the weekend. Please keep this in mind when you start getting low on your medication. WITH THE NEW [place] THE PRESCIBED USE OF OPIODS WE [...] 5pm. - Dr. Almanzar's office number at [facility] is: [phone]. - If you need to make a physical therapy appointment please call [facility] at: [phone] -If you leave a message after normal [...] on the weekends. If possible go to [facility] ER at [address] [place] [address]. UPPER EXTREMITY REPAIR SURGERY POST OP INSTRUCTIONS [...] regular office hours or go to the [place] ER if after hours if you: -Signs [...] if you do not already have one, [phone]. 1ST POST OP APPT: 1ST PT APPT: [...] your doctor if you can take an blfw-nrr-fphyqkt medicine. Take your pain medicine as soon [...] Log into your personal health record on [email or web address] and enter [email or web address] in the Education box to learn more about Nausea and Vomiting After Surgery documented in this encounter History of Present Illness * Rochelle Dewitt MD - 02/28/2019 12:57 PM EDT [facility] [place] Assessment and Plan Elsa Catalan is a 58 y.o. 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 documented in this encounter* Rose Mendoza CNP - 04/23/2019 2:43 PM EDT Associated Order(s): Wound Debridement Post-Procedure Diagnose(s): Skin ulcer of elbow with fat layer exposed (HCC) WOUND CARE PROVIDER PROGRESS NOTE Patient Name: Elsa Catalan MR #: [id number] : 1960 ASSESSMENT, PLAN, & ORDERS: Goals [...] / Therapies: DSD prior to coming to [facility]. Severity: Full thickness, Duration: 02/27/19 Timing: [...] % 1-25% 04/23/2019 3:00 PM Granulation % 1-25%;[place] 04/23/2019 3:00 PM Exposed Structure None 04/23/2019 [...] to verify the correct patient, procedure, equipment, legal support assistant and site/side marked as required Timeout performed: [...] HEAD EXCISION; Surgeon: Ayde Almanzar DO; Location: [facility] Main OR; Service: Orthopedic HYSTERECTOMY Still has [...] file Gets together: Not on file Attends hoahaoism service: Not on file Active member of [...] NOTE Patient Name: Elsa Catalan MR #: [id number] : 1960 ASSESSMENT, PLAN, & ORDERS: Goals [...] / Therapies: DSD prior to coming to [facility]. Severity: Full thickness, Duration: 02/27/19 Timing: [...] HEAD EXCISION; Surgeon: Ayde Almanzar DO; Location: [facility] Main OR; Service: Orthopedic HYSTERECTOMY Still has [...] file Gets together: Not on file Attends hoahaoism service: Not on file Active member of [...] NOTE Patient Name: Elsa Catalan MR #: [id number] POD # 1 - Pt HD stable, [...] Patient and family updated at bedside - [facility] following for medical management/appreciate recs Plan discussed with Dr. Almanzar. DISPO: Likely discharged home later today once seen by PT and stable per [facility] Subjective: Perpetual Assessment: POD #1 . Patient [...] reviewed Jackie Torres CNP Department of Surgery [phone] Also available on [employer] 08/26/19 8:13 AM * Meenakshi Lim [...] NOTE Patient Name: Elsa Catalan MR #: [id number] Hospital Course: No notes on file Assessment/Plan: [...] Marx MD - 10/14/2019 1:04 PM EST [facility]ILY PROGRESS NOTE Assessment and Plan Elsa [...] which have been restarted Consider involving her Furniture Removalist'S Assistant to discuss risks/benefits DM Lantus with sliding [...] 1:47 pm: GLORIA attempted to reach Evan [facility] rep. Per his voice mail, he is out of the area this week. GLORIA called the [facility] office ([phone]) and spoke with Meeta. She stated that she has put a note on the case to request that it be expedited. 1:28 pm: GLORIA spoke with Susana at [facility] ([place], [place]). Susana stated that she was currently reviewing case and needed to see if they were able to accept from a staffing perspective. Susana will provide response to GLORIA. 11:28 am: Wound vac order submitted and prescription faxed. GLORIA met with pt in pt's room. Pt reported that she thought that [facility] serviced her area. She believes that she utilized [facility] approximately 7 years ago. GLORIA checked with [facility] liaison, but [facility] does not service pt's home area. GLORIA made referral to [facility] ([place], [place]). They report that they do service this area. Await response regarding ability to accept. Discharge Planning Living Arrangements: Spouse/significant other Support Systems: Spouse/significant other Assistance Needed: min Type of Residence: Private residence Prior to Admission Home Care Services: No Discharge Readiness Expected Discharge Date: 10/14/19 Barriers to Discharge: Pre-certification [facility] Disposition D/C Disposition: Home Health Care Services Related to Current Admission?: Yes Agency/Destination: Other(TBD) HME: Other (Comment)(wound vac) HME Agency: Other (Comment)([facility]) * Sherrill Chung LISW - 10/13/2019 7:08 PM EST DISCHARGE PLAN PROGRESS NOTE Date: 10/13/2019 Time: 7:09 PM Patient Name: Elsa Catalan Date of : 1960 Sex: Female SW submitted clinicals to [facility] for wound vac approval and will f/u on Monday re: outcome. Pt has [address] insurance. SW will need to f/u with pt re: RN for wound vac/dressing change needs. She lives in [facility]. Discharge Readiness Expected Discharge Date: 10/14/19 Barriers to Discharge: Pre-certification [facility] Disposition D/C Disposition: Home Health Care Services Related to Current Admission?: Yes Agency/Destination: Other(TBD) HME: Other (Comment)(wound vac) HME Agency: Other (Comment)([facility]) * TreyJaDO - 10/13/2019 3:29 PM EST [facility] PROGRESS NOTE Assessment and Plan Elsa [...] which have been restarted Consider involving her Furniture Removalist'S Assistant to discuss risks/benefits DM Lantus with sliding [...] NOTE Patient Name: Elsa Catalan MR #: [id number] : 1960 ASSESSMENT, PLAN, & ORDERS: Goals [...] / Therapies: DSD prior to coming to [facility]. Severity: Full thickness, Duration: 09/03/19 Timing: [...] to verify the correct patient, procedure, equipment, legal support assistant and site/side marked as required Timeout performed: [...] HEAD EXCISION; Surgeon: Ayde Almanzar DO; Location: [facility] Main OR; Service: Orthopedic ARTHROPLASTY ELBOW TOTAL Left 09/04/2019 Procedure: LEFT TOTAL ELBOW ARTHROPLASTY WITH ULNAR NERVE RELEASE WITH ANTERIOR TRANSPOSITION, EXCISION RADIAL HEAD; Surgeon: Ayde Almanzar DO; Location: [facility] Main OR; Service: Orthopedic HYSTERECTOMY Still has [...] file Gets together: Not on file Attends hoahaoism service: Not on file Active member of [...] subsequent encounter Nusrat Marx MD [address] [place] [address] Specialty Diagnoses / Procedures Referred By Contac t Referred To Contact [facility] Diagnoses Abnormality of gait Procedures CONSULT TO PHYSICAL THERAPY PHYSICAL THERAPY EVALUATION HIGH COMPLEX 45 MINS Pepe Carter MD [address] [place] [address] [facility] [place] [address] [place] [address] Referral ID Status Reason Start Date Expiration Date Visits Requested Visits Authorized [id number] Pending Review Auto-Generat ed Referral 11/23/2023 11/22/2024 1 1 Specialty Diagnoses / Procedures Referred By Contac t Referred To Contact Orthopedics Diagnoses Trigger middle finger of right hand Bilateral hand pain Chronic elbow pain, right Procedures CONSULT TO ORTHOPAEDICS OFFICE/OUTPATIENT [facility] MDM 60 MINUTES Pepe Carter MD [address] [place] [address] [place] [address] [place] [address] Referral ID Status Reason Start Date Expiration Date Visits Requested Visits Authorized [id number] Authorized PCP Requested Referral 05/18/2024 05/18/2025 1 1 Specialty Diagnoses / Procedures Referred By Contac t Referred To Contact XR IMAGING Diagnoses Trigger middle finger of right hand Bilateral hand pain Procedures XR HAND GENERAL 3V PA/LAT/OBL BILATERAL RADEX HAND MINIMUM 3 VIEWS Pepe Carter MD [address] [place] [address] [place] [address] Referral ID Status Reason Start Date Expiration Date Visits Requested Visits Authorized [id number] Authorized Auto-Generat ed Referral 05/18/2024 06/17/2025 1 1 Specialty Diagnoses / Procedures Referred By Contac t Referred To Contact XR IMAGING Diagnoses Postmenopausal osteoporosis of multiple sites Procedures DXA-AXIAL SKELETON Pepe Carter MD [address] [place] [address] [place] [address] Referral ID Status Reason Start Date Expiration Date Visits Requested Visits Authorized [id number] Authorized Auto-Generat ed Referral 05/18/2024 06/17/2025 1 1 Specialty Diagnoses / Procedures Referred By Contac t Referred To Contact XR IMAGING Diagnoses Postmenopausal osteoporosis of multiple sites Procedures DXA-FOREARM SKELETON DXA BONE DENSITY STUDY /SITES APPENDICLR SKEL Pepe Carter MD [address] [place] [address] [place] [address] Referral ID Status Reason Start Date Expiration Date Visits Requested Visits Authorized [id number] Authorized Auto-Generat ed Referral 05/18/2024 06/17/2025 1 1 Additional Source Comments INFORMATION SOURCE (unrecogn ized section and content) DATE CREATED AUTHOR 03/28/2018 [facility] DATE CREATED AUTHOR AUTHOR'S ORGANIZ ATION 10/08/2019 [facility] DATE CREATED AUTHOR AUTHOR'S ORGANIZ ATION 10/14/2019 [facility] DATE CREATED AUTHOR AUTHOR'S ORGANIZ ATION 04/19/2020 [facility] DATE CREATED AUTHOR AUTHOR'S ORGANIZ ATION 04/24/2020 [facility] DATE CREATED AUTHOR AUTHOR'S ORGANIZ ATION 05/28/2021 [facility] DATE CREATED AUTHOR AUTHOR'S ORGANIZ ATION 09/18/2021 [facility] DATE CREATED AUTHOR AUTHOR'S ORGANIZ ATION 09/19/2021 [facility] DATE CREATED AUTHOR AUTHOR'S ORGANIZ ATION 12/10/2022 [facility] DATE CREATED AUTHOR AUTHOR'S ORGANIZ ATION 06/08/2024 [facility] Reason for Visit (unrecogniz ed section and [...] WITH ANTERIOR TRANSPOSITION, RADIAL HEAD EXCISION AT [facility] OR [facility] pending laboratory/cervical spine x-ray series. Creatinine, [...] acceptable cardiac risk based on the 2014 [place] College of Cardiology/[place] Heart Association (ACC/AHA) guideline on Perioperative Cardiovascular [...] stress dose glucocorticoids are not indicated. 2017 [place] College of Rheumatology/[place] Association of Hip and Knee Surgeons Guideline for the Perioperative Management of Antirheumatic Medication in Patients With Rheumatic Diseases Undergoing Elective Total Hip or Total Knee Arthroplasty. Arthritis Care & Research Vol. 69, No. 8, May 2017, pp 9061-5428 DOI 10.1002/acr.69884 9. Fibromyalgia Controlled on gabapentin take a.m. day of surgery. 10. PONV (postoperative nausea and vomiting) [place] use of pre/postoperative antiemetics recommended. 11. No contraindication to deep vein thrombosis (DVT) prophylaxis Deep venous thrombosis prophylaxis per primary service. Recommend: 2011 Antithrombotic therapy for VTE disease: Antithrombotic Therapy and Prevention of Thrombosis, 9 ed: [place] [employer]icians Evidence- Based Clinical Practice Guidelines. Chief Complaint Patient presents with Pre-operative Medical Risk Stratification History of Present Illness Elsa Catalan is a 58 y.o. female who presents for preoperative medical risk stratification consult at the request of Ayde Almanzar DO prior to 02/27; RIGHT TOTAL ELBOW ARTHROPLASTY, ULNAR NERVE RELEASE WITH ANTERIOR TRANSPOSITION, RADIAL HEAD EXCISION AT [facility] OR [facility]. Pt states she has rheumatoid arthritis [...] 02/21/2019 Sleep apnea, obstructive 02/20/2019 Stroke ([facility]) 02/21/2019 Past Surgical History: Procedure Laterality Date [...] Elsa Catalan Admit Date: [id number] MR #: [id number] : 1960 The H&P has been reviewed [...] WITH ANTERIOR TRANSPOSITION, RADIAL HEAD EXCISION AT [facility] OR [facility] pending laboratory/cervical spine x-ray series. Creatinine, [...] acceptable cardiac risk based on the 2014 [place] College of Cardiology/[place] Heart Association (ACC/AHA) guideline on Perioperative Cardiovascular [...] stress dose glucocorticoids are not indicated. 2017 [place] College of Rheumatology/[place] Association of Hip and Knee Surgeons Guideline for the Perioperative Management of Antirheumatic Medication in Patients With Rheumatic Diseases Undergoing Elective Total Hip or Total Knee Arthroplasty. Arthritis Care & Research Vol. 69, No. 8, May 2017, pp 7105-7118 DOI 10.1002/acr.43382 9. Fibromyalgia Controlled on gabapentin take a.m. day of surgery. 10. PONV (postoperative nausea and vomiting) [place] use of pre/postoperative antiemetics recommended. 11. No contraindication to deep vein thrombosis (DVT) prophylaxis Deep venous thrombosis prophylaxis per primary service. Recommend: 2012 Antithrombotic therapy for VTE disease: Antithrombotic Therapy and Prevention of Thrombosis, 9th ed: [place] [employer]icians Evidence- Based Clinical Practice Guidelines. Chief Complaint Patient presents with Pre-operative Medical Risk Stratification History of Present Illness Elsa Catalan is a 58 y.o. female who presents for preoperative medical risk stratification consult at the request of Ayde Almanzar DO prior to 02/27; RIGHT TOTAL ELBOW ARTHROPLASTY, ULNAR NERVE RELEASE WITH ANTERIOR TRANSPOSITION, RADIAL HEAD EXCISION AT [facility] OR [facility]. Pt states she has rheumatoid arthritis [...] 02/21/2019 Sleep apnea, obstructive 02/20/2019 Stroke ([facility]) 02/21/2019 Past Surgical History: Procedure Laterality Date [...] Elsa Catalan Admit Date: [id number] MR #: [id number] : 1960 The H&P has been reviewed [...] though without any signs of ischemia or tiffanei infarction. Instructions given regarding medications both verbally [...] of Dr. Almanzar prior to 09/04 at [facility], LEFT TOTAL ELBOW ARTHROPLASTY WITH ULNAR NERVE [...] many years duration follows with pcp and outside b2b sales on multiple dmards -IDDMII, several years, followed [...] 02/21/2019 Sleep apnea, obstructive 02/20/2019 Stroke ([facility]) 02/21/2019 Past Surgical History: Procedure Laterality Date ARTHROPLASTY ELBOW TOTAL Right 02/27/2019 Procedure: RIGHT TOTAL ELBOW ARTHROPLASTY, ULNAR NERVE RELEASE WITH ANTERIOR TRANSPOSITION, RADIAL HEAD EXCISION; Surgeon: Ayde Almanzar DO; Location: [facility] Main OR; Service: Orthopedic HYSTERECTOMY Still has [...] 12 inches Recent Results (from the past 46922 hours) XR ELBOW RIGHT 3+ VIEWS (STANDARD) [...] surgery. COMPARISON: Right elbow radiographs 07/21/2016 from [facility]. FINDINGS: Three views of the [...] Name: Elsa Catalan Admit Date: MR #: [id number] : 1960 The H&P has been reviewed and the patient has been examined. I concur with the findings of the H&P. There are no significant changes. It is appropriate to proceed with the planned procedure. Ayde Almanzar DO 10/13/2019 9:03 AM [facility] HISTORY AND PHYSICAL Patient Name: Elsa Catalan : 1960 MR #: [id number] Admit Date: Physicians: Pretty Fermin MD (Family); [...] which have been restarted Consider involving her Furniture Removalist'S Assistant to discuss risks/benefits DM Lantus with sliding scale insulin. Dose adjusted for this evening Hypothyroid Synthroid HLD Statin Admitted From: Home Medication Reconciliation: Verified Code Status: Full Code Quality Measures DVT Prophylaxis: Ambulate - lovenox if stay prolonged/ok with ortho Hickey Catheter: none Disposition Outpatient Testing: NA Chief Complaint Non healing wound History of Present Illness Patient was directed to [place] for admission per her orthopedic surgeon. She [...] HEAD EXCISION; Surgeon: Ayde Almanzar DO; Location: [facility] Main OR; Service: Orthopedic ARTHROPLASTY ELBOW TOTAL Left 09/04/2019 Procedure: LEFT TOTAL ELBOW ARTHROPLASTY WITH ULNAR NERVE RELEASE WITH ANTERIOR TRANSPOSITION, EXCISION RADIAL HEAD; Surgeon: Ayde Almanzar DO; Location: [facility] Main OR; Service: Orthopedic HYSTERECTOMY Still has [...] Name: Elsa Catalan Admit Date: MR #: [id number] : 1960 The H&P has been reviewed [...] WITH MANIPULATION UNDER ANESTHESIA on 04-08-20 at [facility]. Patient states she had a left elbow [...] failed other treatments. Based on questioning at [facility] - patient has no current signs or [...] Date Noted Anemia 02/21/2019 Angina pectoris ([facility]) 02/21/2019 Arrhythmia 02/21/2019 Atrial fibrillation ([facility]) 08/28/2019 Bleeding disorder ([facility]) 02/20/2019 Cancer ([facility]) 02/21/2019 CHF (congestive heart failure) ([facility]) 08/28/2019 Coronary artery disease 02/20/2019 Deep vein thrombosis ([facility]) 02/21/2019 Diabetes mellitus type I ([facility]) 02/21/2019 Edema 08/28/2019 Hard to intubate 02/21/2019 Heart murmur 08/28/2019 Heart valve disease 08/28/2019 History of blood transfusion 02/21/2019 History of cardiac cath 02/21/2019 History of echocardiogram 02/21/2019 History of stress test 02/20/2019 Malignant hyperthermia due to anesthesia 02/21/2019 Myocardial infarction (HCC) 02/21/2019 No blood products 02/21/2019 Pulmonary embolism ([facility]) 02/21/2019 Sleep apnea, obstructive 02/20/2019 Stroke ([facility]) 02/21/2019 Past Surgical History: Procedure Laterality Date ARTHROPLASTY ELBOW TOTAL Right 02/27/2019 Procedure: RIGHT TOTAL ELBOW ARTHROPLASTY, ULNAR NERVE RELEASE WITH ANTERIOR TRANSPOSITION, RADIAL HEAD EXCISION; Surgeon: Ayde Almanzar DO; Location: [facility] Main OR; Service: Orthopedic ARTHROPLASTY ELBOW TOTAL Left 09/04/2019 Procedure: LEFT TOTAL ELBOW ARTHROPLASTY WITH ULNAR NERVE RELEASE WITH ANTERIOR TRANSPOSITION, EXCISION RADIAL HEAD; Surgeon: Ayde Almanzar DO; Location: [facility] Main OR; Service: Orthopedic COLONOSCOPY HYSTERECTOMY Still has ovaries INCISION AND DRAINAGE UPPER EXTREMITY Left 10/13/2019 Procedure: INCISION AND DRAINAGE LEFT ELBOW WITH WOUND VAC APPLICATION; Surgeon: Ayde Almanzar DO; Location: [facility] Main OR; Service: Ortho-Robotics JOINT REPLACEMENT Right [...] 14.5 inches Recent Results (from the past 22295 hours) XR CHEST PA/AP 09/05/2019 (Final) Status: [...] of Dr. Almanzar prior to 09/04 at [facility], LEFT TOTAL ELBOW ARTHROPLASTY WITH ULNAR NERVE [...] many years duration follows with pcp and outside b2b sales on multiple dmards -IDDMII, several years, followed [...] Atrial fibrillation (HCC) 08/28/2019 Bleeding disorder ([facility]) 02/20/2019 Cancer ([facility]) 02/21/2019 CHF (congestive heart failure) ([facility]) 08/28/2019 Coronary artery disease 02/20/2019 Deep vein thrombosis ([facility]) 02/21/2019 Diabetes mellitus type I ([facility]) 02/21/2019 Edema 08/28/2019 Hard to intubate 02/21/2019 Heart murmur 08/28/2019 Heart valve disease 08/28/2019 History of blood transfusion 02/21/2019 History of cardiac cath 02/21/2019 History of echocardiogram 02/21/2019 History of stress test 02/20/2019 Malignant hyperthermia due to anesthesia 02/21/2019 Myocardial infarction (HCC) 02/21/2019 No blood products 02/21/2019 Pulmonary embolism ([facility]) 02/21/2019 Sleep apnea, obstructive 02/20/2019 Stroke ([facility]) 02/21/2019 Past Surgical History: Procedure Laterality Date ARTHROPLASTY ELBOW TOTAL Right 02/27/2019 Procedure: RIGHT TOTAL ELBOW ARTHROPLASTY, ULNAR NERVE RELEASE WITH ANTERIOR TRANSPOSITION, RADIAL HEAD EXCISION; Surgeon: Ayde Almanzar DO; Location: [facility] Main OR; Service: Orthopedic HYSTERECTOMY Still has [...] 12 inches Recent Results (from the past 56187 hours) XR ELBOW RIGHT 3+ VIEWS (STANDARD) [...] surgery. COMPARISON: Right elbow radiographs 07/21/2016 from [facility]. FINDINGS: Three views of the [...] lab value of 407 Patient Instructions for [facility]: Prior to surgery: ? Please be sure to wear loose, comfortable clothing and non-skid shoes ? Bring your health insurance information and a photo ID, as well as your Living Will or Durable Power of Jinriksha Driver for Healthcare if it is available to you. ? Bring your cane/walker any applicable assistive device. If you currently use a CPAP, please bring this device with you on the day of surgery. ? Bring a list of your medications with the name of the medication, dose and how often you are taking it. Be sure to include herbal preparations and [id number]-[id number] medications on this list. ? Do not [...] of lotions, perfumes or powders. All nail canadian is to be removed from fingernails and [...] day of your surgery/procedure. ? Parking at [facility] is free. Please park in the lot in front of the main lobby. Enter the Main Entrance where a Consulting It Architect Liaison at the information desk will greet [...] of your surgery preparation process here at [facility]. It will provide you with additional [...] Laboratory, Medications and Transcriptions UR BERNALELSA NICOLE [facility] [id number] N [id number] 1960 DATE 02/27/2019 OPERATIVE REPORT SURGEON AYDE ALMANZAR DO DANCING TEACHER ROCHELLE SALMERON PA-C PREOPERATIVE DIAGNOSES Right elbow: 1. Rheumatoid arthritis. 2. Ulnar nerve compression. POSTOPERATIVE DIAGNOSES Right elbow: 1. Rheumatoid arthritis. 2. Ulnar nerve compression. PROCEDURE Right elbow: 1. Total elbow arthroplasty using the Biomet [place]/Morrey total elbow system with an extra small cemented humeral component and an extra small ulnar component, 43491. 2. Ulnar nerve release with anterior transposition, 40957. 3. Excision of radial head, 70326. ANESTHESIA General with regional block. FLUIDS Crystalloid. [...] stable condition. I did utilize my physician chef assistant, Rochelle Salmeron, throughout the case. He was an integral part of the case, helped position the patient, assisted throughout the case as well as closure of the wounds, and helped transfer the patient to postanesthesia care unit. He was an integral part of the case. AYDE ALMANZAR DO D 02/27/2019 19:02 [id number] T 02/28/2019 01:19 TJK/MODL Pt oriented to [...] 0600, will encourage pt to take tylenol. aMrilyn will be up to see patient. LRAHMAN ELSA CATALAN [facility] [id number] N [id number] 1960 DATE 09/04/2019 OPERATIVE REPORT SURGEON AYDE ALMANZAR DO DANCING TEACHER ROCHELLE SALMERON, PHILLIP PREOPERATIVE DIAGNOSES Left elbow: 1. Rheumatoid arthritis. 2. Cubital tunnel syndrome. POSTOPERATIVE DIAGNOSES Left elbow: 1. Rheumatoid arthritis. 2. Cubital tunnel syndrome. PROCEDURE Left elbow: 1. Total elbow arthroplasty using Iam [place]on[place]/Morrey total elbow system with a size extra small cemented humerus and a size extra small cemented ulna, 03656. 2. Excision of radial head, 40248. 3. Ulnar nerve release and anterior transposition, 57978. ANESTHESIA General with regional block. FLUIDS Crystalloid. [...] was dislocated. I was using the Iam [place]/[employer]ly [employer] system. A piece of bone was taken [...] stable condition. I did utilize my physician chef assistant, Rochelle Salmeron, throughout the case. He was an integral part of the case, helped position the patient, assist throughout, as well as closure of wounds, and helped transfer the patient to the postanesthesia care unit. AYDE ALMANZAR DO D 09/04/2019 21:29 [id number] T 09/05/2019 00:28 SUPRIYA/SUSANL [facility] Review Notes DIAGNOSIS:M06.9; M24.522 NEED FOR SURGERY:M06.9; M24.522 DATE OF PROCEDURE: 09/04/2019 PROCEDURE: LEFT TOTAL ELBOW ARTHROPLASTY WITH ULNAR NERVE RELEASE WITH ANTERIOR TRANSPOSITION, EXCISION RADIAL HEAD POST OP COMPLICATIONS: none DISPOSITION: TBD POST OP Brief Post Operative Note Patient Name: Elsa Catalan : 1960 (59 y.o.) Date of Service: 09/04/2019 CSN: [id number] Procedure(s): LEFT TOTAL ELBOW ARTHROPLASTY WITH ULNAR NERVE RELEASE WITH ANTERIOR TRANSPOSITION, EXCISION RADIAL HEAD Pre-Operative Diagnoses: * M06.9; M24.522 Post-Operative Diagnoses: Surgeon(s) and Role: * Ayde Almanzar DO - Primary Anesthesiologist: Asim Qiu MD Body Painter: Stephanie Retana RN Physician Internal Audit Senior Manager: DYLLAN WilkinsonC Ripsaw Operator: Kristin Padilla, TECHNOLOGIST Body Painter Relief: Aimee Dietz RN Relief Scrub: ST Leonardo Scrub Person: ST Sue Scrub Person Assist: Stewart Scruggs RN Operative findings: see report Intra and immediate post-operative complications: none Type of anesthesia used: Regional, General Estimated blood loss: 100 mL Estimated urine output: 0 mL Specimen(s): * No specimens in log * Implant(s): Implant Name Type Inv. Item Serial No. Salesperson Pianos [employer] Organs Lot No. LRB No. Used Action PLUG 8-10MM SM IM CANAL - [id number] PLUG 8-10MM SM IM CANAL BI[employer]ET INC [id number] Left 1 Implanted CEMENT BONE ANTIBIOTIC SIMPLEX P W/TOBRAMYCIN SINGLE DOSE - [id number] Cement CEMENT BONE ANTIBIOTIC SIMPLEX P W/TOBRAMYCIN SINGLE DOSE INGRID OR [id number] Left 2 Implanted ALICIA/MORREY TOTAL ELBOW INTERCHANGEABLE HUMERAL ASSEMBLY EXTRA SMALL 4 INCH LENGTH IAM BIO [id number] Left 1 Implanted COONRAD/MORREY TOTAL ELBOW INTERCHANGEABLE ULNAR ASSEMBLY EXTRASMALL LEFT 3 INCH IAM BIO [id number] Left 1 Implanted PLUG 8MM CEMENT SM DIAMETER - [id number] PLUG 8MM CEMENT SM DIAMETER BI[employer] INC [id number] Left 1 Implanted PLUG 8-10MM SM IM CANAL - [id number] PLUG 8-10MM SM IM CANAL [employer] [id number] Left 1 Explanted Drain(s): * No LDAs [...] 10/14/19 1:21 PM: Laboratory and Microbiology [facility] [id number] N [id number] 1960 DATE 10/13/2019 OPERATIVE REPORT SURGEON AYDE ALMANZAR DO DANCING TEACHER ROCHELLE SALMERON PA-C PREOPERATIVE DIAGNOSES Left elbow: [...] and deep fascia as well as muscle, 08153. 2. Wound vacuum-assisted closure pressure device, a 14 x 7 x 1 cm wound, 94486. ANESTHESIA General. FLUIDS Crystalloid. ESTIMATED BLOOD LOSS [...] the joint. I did utilize my physician chef assistant, Rochelle Salmeron, throughout the case. He was an integral part of the case, helped position the patient, assist throughout the case as well as closure of the wound, help transfer the patient to postanesthesia care unit. DO Christina QUINONEZ 10/13/2019 11:50 [id number] T 10/13/2019 15:11 TJK/MODL Brief Post Operative Note Patient Name: Elsa Catalan : 1960 (59 y.o.) Date of Service: 10/13/2019 CSN: [id number] Procedure(s): INCISION AND DRAINAGE LEFT ELBOW WITH WOUND VAC APPLICATION Pre-Operative Diagnoses: * UNKNOWN Post-Operative Diagnoses: Surgeon(s) and Role: * Ayde Almanzar DO - Primary Anesthesiologist: Lazaro Alvarez MD Body Painter: Aimee Dietz RN Physician Internal Audit Senior Manager: Rochelle Salmeron PA-C Scrub Person: Anastasiia Gurrola [...] documented in this encounter ELSA CATALAN CSN [id number] 1960 DATE 04/08/2020 OPERATIVE REPORT SURGEON AYDE ALMANZAR DO DANCING TEACHER ROCHELLE SALMERON PA-C DANCING TEACHER 2 PEGGY MOSES CNP PREOPERATIVE DIAGNOSIS Left elbow. 1. Ulnar neuropathy. 2. Contracture. 3. Status post total elbow arthritis. POSTOPERATIVE DIAGNOSIS Left elbow. 1. Ulnar neuropathy. 2. Contracture. 3. Status post total elbow arthritis. PROCEDURE Left elbow. 1. Open excision of bone, soft tissue, and capsule with releases; 09021. 2. Ulnar nerve release with anterior transposition; 69828. ANESTHESIA General with regional block. FLUIDS Crystalloid. [...] stable condition. I did utilize my physician chef assistant, Rochelle Salmeron, and my nurse practitioner [...] year. AYDE ALMANZAR DO D 04/08/2020 13:56 [id number] T 04/08/2020 14:38 SUPRIYA/SUSANL Brief Post Operative Note Patient Name: Elsa Catalan : 1960 (59 y.o.) Date of Service: 04/08/2020 [facility]: [id number] Procedure(s): LEFT ELBOW ULNAR NERVE RELEASE WITH ANTERIOR TRANSPOSITION, TENDON LENGTHENING, CAPSULAR RELEASE WITH MANIPULATION UNDER ANESTHESIA Pre-Operative Diagnoses: * G56.22 Post-Operative Diagnoses: Surgeon(s) and Role: * Ayde Almanzar DO - Primary Anesthesiologist: Hiram Lucas MD SUSTAINABILITY EXECUTIVE DIRECTOR: Stewart Mckeon CRNA Body Painter: Spring Odonnell RN Physician Internal Audit Senior Manager: Rochelle Salmeron PA-C Body Painter Relief: Miranda Randall RN Scrub Person: ST Ksenia Body Painter Orientee: Sherrill Santamaria RN Nurse Float: Suri [...] documented in this encounter Patient Instructions for [facility]: Prior to surgery: ? Please be sure to wear loose, comfortable clothing and non-skid shoes ? Bring your health insurance information and a photo ID, as well as your Living Will or Durable Power of Jinriksha Driver for Healthcare if it is available to you. ? Bring your cane/walker any applicable assistive device. If you currently use a CPAP, please bring this device with you on the day of surgery. ? Bring a list of your medications with the name of the medication, dose and how often you are taking it. Be sure to include herbal preparations and [id number] medications on this list. ? Do not [...] of lotions, perfumes or powders. All nail canadian is to be removed from fingernails and [...] day of your surgery/procedure. ? Parking at [facility] is free. Please park in the lot in front of the main lobby. Enter the Main Entrance where a Consulting It Architect Liaison at the information desk will greet [...] home. documented in this encounter Gera York, BONE CHAR PULLER - 02/28/2019 1:44 PM Sherrill Ahumada OT [...] roles. The patient's home setup is a logistics engineering manager and family/caregiver support is a logistics engineering manager for return to prior level of function. The patient's education level is a logistics engineering manager, compliance is a logistics engineering manager and awareness of own capacity and performance is a logistics engineering manager to return to prior level of function. 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 Associated Order(s): IP CONSULT TO HOSPITALIST [facility] CONSULT[facility] [place] Patient Name: Elsa Catalan : 1960 MR #: [id number] Admit Date: [id number] Physicians: Delroy Bianchi DO [...] ACR guidelines Diabetes type 2, controlled, with fdc insulin use On metformin and lantus at home, held while in hospital Resume lantus and start correctional humalog for now Hypothyroidism On levothyroxine at home, resumed Medication Reconciliation: Verified Quality Measures DVT Prophylaxis: per surgery Hickey Catheter: placed pre-op Disposition Discharge Location: from home, independent Estimated Discharge Date: per surgery Outpatient Testing: undetermined Chief Complaint [facility] consulted by Ayde Almanzar DO for diabetes [...] a barrier and family/caregiver support is a logistics engineering manager for return to prior level of function. The patient's education level is a logistics engineering manager, compliance is a logistics engineering manager and awareness of own capacity and performance is a logistics engineering manager to return to prior level of function. [...] January. 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) Past Medical History: Diagnosis Date Asthma [...] HEAD EXCISION; Surgeon: Ayde Almanzar DO; Location: [facility] Main OR; Service: Orthopedic HYSTERECTOMY Still has [...] No Associated Order(s): IP CONSULT TO H[facility]PITALIST [facility] CONS[facility] Patient Name: Elsa Catalan : 1960 MR #: [id number] Admit Date: [id number] Physicians: Pretty Fermin MD [...] Outpatient Testing: TBD per primary Chief Complaint [facility] consulted by Ayde Almanzar DO for medical [...] HEAD EXCISION; Surgeon: Ayde Almanzar DO; Location: [facility] Main OR; Service: Orthopedic HYSTERECTOMY Still has [...] follow for discharge planning. Received notification from [facility] that wound vac has been approved. GLORIA met with patient and spouse at bedside and [facility] ReadyVac delivered to patient's room (serial number [id number]). Proof of delivery form faxed back to [facility]. GLORIA placed call to [facility] ([place], [place]) who reports they are unable to accept patient due to staffing. GLORIA placed call to [facility] ([phone]) and per intake they can not accept patient due to staffing. GLORIA placed call to [facility] ([phone], f [phone]) who reports they can accept patient. Referral faxed and Day of Discharge Bundle faxed to intake at [facility]. Notified patient and spouse. AVS and orders updated. Notified RN. Discharge Planning Living Arrangements: Spouse/significant other Support Systems: Spouse/significant other Assistance Needed: min Type of Residence: Private residence Prior to Admission Home Care Services: No Discharge Readiness Expected Discharge Date: 10/14/19 Barriers to Discharge: Pre-certification [facility] Disposition D/C Disposition: Home Health Care Services Related to Current Admission?: Yes Agency/Destination: Other([facility]) Home Care Needs : Home health care [...] roles. The patient's home setup is a logistics engineering manager and family/caregiver support is a logistics engineering manager for return to prior level of function. The patient's education level is a logistics engineering manager, compliance is a logistics engineering manager and awareness of own capacity and performance is a logistics engineering manager to return to prior level of function. [...] Accessible Prior Level of Function Level of [place]: Independent with ADLs and functional transfers, Independent [...] HEAD EXCISION; Surgeon: Ayde Almanzar DO; Location: [facility] Main OR; Service: Orthopedic ARTHROPLASTY ELBOW TOTAL Left 09/04/2019 Procedure: LEFT TOTAL ELBOW ARTHROPLASTY WITH ULNAR NERVE RELEASE WITH ANTERIOR TRANSPOSITION, EXCISION RADIAL HEAD; Surgeon: Ayde Almanzar DO; Location: [facility] Main OR; Service: Orthopedic HYSTERECTOMY Still has ovaries INCISION AND DRAINAGE UPPER EXTREMITY Left 10/13/2019 Procedure: INCISION AND DRAINAGE LEFT ELBOW WITH WOUND VAC APPLICATION; Surgeon: Ayde Almanzar DO; Location: [facility] Main OR; Service: Ortho-Robotics JOINT REPLACEMENT Right [...] Female SW received c/s earlier today from [facility] sharing that pt would be admitted from [...] Discharge Date: 10/14/19 Barriers to Discharge: Pre-certification [facility] Disposition D/C Disposition: Home Health Care Services Related to Current Admission?: Yes Agency/Destination: Other(TBD) CONSULT NOTE Patient Name: Elsa Catalan Admit Date: MR #: [id number] : 1960 Physicians: Pretty Fermin MD (Family); [...] hematoma and skin necrosis. Wound care at [facility] not improving. Started having n/t ulnar nerve from irritation. Admitted by [facility]. Patient has RA on meds. History: Past [...] HEAD EXCISION; Surgeon: Ayde Almanzar DO; Location: [facility] Main OR; Service: Orthopedic ARTHROPLASTY ELBOW TOTAL Left 09/04/2019 Procedure: LEFT TOTAL ELBOW ARTHROPLASTY WITH ULNAR NERVE RELEASE WITH ANTERIOR TRANSPOSITION, EXCISION RADIAL HEAD; Surgeon: Ayde Almanzar DO; Location: [facility] Main OR; Service: Orthopedic HYSTERECTOMY Still has [...] file Gets together: Not on file Attends hoahaoism service: Not on file Active member of [...] ED Notes (unrecognized secti on and content) lead radiologic technologist notified Wet to dry dressing applied to right elbow, per Dr. Delvalle. [facility] EMERGENCY DEPARTMENT NAME: Elsa Catalan Age: 59 y.o. CSN: [id number] PCP: Pretty Fermin MD Chief Complaint: Post-op [...] HEAD EXCISION; Surgeon: Ayde Almanzar DO; Location: [facility] Main OR; Service: Orthopedic ARTHROPLASTY ELBOW TOTAL Left 09/04/2019 Procedure: LEFT TOTAL ELBOW ARTHROPLASTY WITH ULNAR NERVE RELEASE WITH ANTERIOR TRANSPOSITION, EXCISION RADIAL HEAD; Surgeon: Ayde Almanzar DO; Location: [facility] Main OR; Service: Orthopedic HYSTERECTOMY Still has [...] file Gets together: Not on file Attends hoahaoism service: Not on file Active member of [...] any alcohol or drug abuse patient.[facility] the event this information is protected by the Federal Confidentiality of Alcohol and Drug Abuse Patient Records regulations: The Federal rules restrict any use of the information to criminally investigate or prosecute any alcohol or drug abuse patient.[facility] CampusIn the event this information is protected by the Federal Confidentiality of Alcohol and Drug Abuse Patient Records regulations: The Federal rules restrict any use of the information to criminally investigate or prosecute any alcohol or drug abuse patient.[facility] CampusIn the event this information is protected by the Federal Confidentiality of Alcohol and Drug Abuse Patient Records regulations: The Federal rules restrict any use of the information to criminally investigate or prosecute any alcohol or drug abuse patient.[facility] CampusIn the event this information is protected by the Federal Confidentiality of Alcohol and Drug Abuse Patient Records regulations: The Federal rules restrict any use of the information to criminally investigate or prosecute any alcohol or drug abuse patient.[facility] CampusIn the event this information is protected by the Federal Confidentiality of Alcohol and Drug Abuse Patient Records regulations: The Federal rules restrict any use of the information to criminally investigate or prosecute any alcohol or drug abuse patient.[facility] CampusIn the event this information is protected by the Federal Confidentiality of Alcohol and Drug Abuse Patient Records regulations: The Federal rules restrict any use of the information to criminally investigate or prosecute any alcohol or drug abuse patient.[facility] CampusIn the event this information is protected by the Federal Confidentiality of Alcohol and Drug Abuse Patient Records regulations: The Federal rules restrict any use of the information to criminally investigate or prosecute any alcohol or drug abuse patient.[facility] CampusIn the event this information is protected by the Federal Confidentiality of Alcohol and Drug Abuse Patient Records regulations: The Federal rules restrict any use of the information to criminally investigate or prosecute any alcohol or drug abuse patient.[facility] CampusIn the event this information is protected by the Federal Confidentiality of Alcohol and Drug Abuse Patient Records regulations: The Federal rules restrict any use of the information to criminally investigate or prosecute any alcohol or drug abuse patient.[facility] CampusIn the event this information is protected by the Federal Confidentiality of Alcohol and Drug Abuse Patient Records regulations: The Federal rules restrict any use of the information to criminally investigate or prosecute any alcohol or drug abuse patient.[facility] CampusIn the event this information is protected by the Federal Confidentiality of Alcohol and Drug Abuse Patient Records regulations: The Federal rules restrict any use of the information to criminally investigate or prosecute any alcohol or drug abuse patient.[facility] CampusIn the event this information is protected by the Federal Confidentiality of Alcohol and Drug Abuse Patient Records regulations: The Federal rules restrict any use of the information to criminally investigate or prosecute any alcohol or drug abuse patient.[facility] CampusIn the event this information is protected by the Federal Confidentiality of Alcohol and Drug Abuse Patient Records regulations: The Federal rules restrict any use of the information to criminally investigate or prosecute any alcohol or drug abuse patient.[facility] CampusIn the event this information is protected by the Federal Confidentiality of Alcohol and Drug Abuse Patient Records regulations: The Federal rules restrict any use of the information to criminally investigate or prosecute any alcohol or drug abuse patient.[facility] CampusIn the event this information is protected by the Federal Confidentiality of Alcohol and Drug Abuse Patient Records regulations: The Federal rules restrict any use of the information to criminally investigate or prosecute any alcohol or drug abuse patient.[facility] Care Teams (unrecognized sec tion and content) [place] Relationship Specialty Start Date End Date Pretty Fermin MD [address] [place] [address] PCP - General Family Practice 01/25/21 [place] Relationship Specialty Start Date End Date Pretty Fermin MD [address] [place] [address] PCP - General Family Practice 01/25/21 [place] Relationship Specialty Start Date End Date Pretty Fermin MD [address] [place] [address] PCP - General Family Practice 01/25/21 [place] Relationship Specialty Start Date End Date Pretty Fermin MD [address] [place] [address] PCP - General Family Medicine 01/25/21 [place] Relationship Specialty Start Date End Date Pretty Fermin MD [address] [place] [address] PCP - General Family Medicine 01/25/21 [place] Relationship Specialty Start Date End Date Pretty Fermin MD [address] [place] [address] PCP - General Family Medicine 01/25/21 [place] Relationship Specialty Start Date End Date Pretty Fermin MD [address] [place] [id number] PCP - General Family Medicine 01/25/21 [place] Relationship Specialty Start Date End Date Pretty Fermin MD [address] [place] [id number] PCP - General Family Medicine 01/25/21 [place] Relationship Specialty Start Date End Date Pretty Fermin MD PCP - General Family Medicine 01/25/21 [place] Relationship Specialty Start Date End Date Pretty Fermin MD PCP - General Family Medicine 01/25/21 [place] Relationship Specialty Start Date End Date Pretty Fermin MD PCP - General Family Medicine 01/25/21 [place] Relationship Specialty Start Date End Date Pretty Fermin MD PCP - General Family Medicine 01/25/21 [place] Relationship Specialty Start Date End Date Pretty Fermin MD PCP - General Family Medicine 01/25/21 [place] Relationship Specialty Start Date End Date Pretty Fermin MD PCP - General Family Medicine 01/25/21 [place] Relationship Specialty Start Date End Date Pretty Fermin MD PCP - General Family Medicine 01/25/21 [place] Relationship Specialty Start Date End Date Pretty [...] BE BASED ON THE PRIMARY CLINICAL RECORDS. [employer] [facility]. provides no warranty or guarantee of the accuracy or completeness of information in this document.
[2024-06-24 21:44] LABS: Hemoglobin 9.7 g/dL (12.0-16.0); Mean Corpuscular HGB Conc 33.4 g/dL (29.9-35.2); Mean Corpuscular Hemoglobin 29.3 pg (26.7-34.0); Mean Corpuscular Volume 87.6 fL (81.0-99.0); Mean Platelet Volume 9.8 fL (9.5-13.5); Platelet Count 247 10^3/uL (150-450); Red Blood Count 3.31 10^6/uL (4.20-5.40); Red Cell Distribution Width 14.2 % (11.0-15.0); White Blood Count 7.4 10^3/uL (4.0-11.0)
[2024-06-24 21:54] LABS: Anion Gap 11.7; BUN Creatinine Ratio 17.7; Calcium 7.7 mg/dL (8.5-10.1); Carbon Dioxide 25.7 mmol/L (21.0-32.0); Chloride 101 mmol/L (98-107); Estimated GFR (African America >60 (>=60); Estimated GFR (Non-African Ame >60 (>=60); Glucose 202 mg/dL (74-106); Potassium 3.4 mmol/L (3.5-5.1); Sodium 135 mmol/L (136-145)
--- NOTE | 2024-06-24 21:55 | PC.NURSE ---
On arrival to ED, patient is a/o x4. EMS reports that when they arrived to the [place], patient had decreased alertness and was only oriented to self. They did a sternal rub which only mildly aroused patient. Patient continued to arouse during transport and by the time she arrived, she was completely alert and oriented. She does not remember what happened, she states that she felt well all day and does not feel unwell at this time. She did have an episodde of urinary incontinence when she arrived and was upset about it, but she otherwise has no complaints.
[2024-06-24 22:25] LABS: Eosinophils Absolute Manual 0.59 10^3/uL (0.00-0.70); Lymphocytes Absolute Manual 2.88 10^3/uL (1.20-3.80); Monocytes Absolute Manual 0.81 10^3/uL (0.30-0.80)
[2024-06-24 22:41] LABS: Bilirubin Urine NEGATIVE (NEGATIVE); Blood Urine NEGATIVE (NEGATIVE); Clarity Urine CLEAR (CLEAR); Color Urine LT. YELLOW (YELLOW); Glucose Urine UA 500 mg/dL (NEGATIVE); Ketones Urine NEGATIVE (NEGATIVE); Leukocyte Esterase Urine SMALL (NEGATIVE); Nitrite Urine NEGATIVE (NEGATIVE); Protein Urine NEGATIVE (NEG/TRACE); Urobilinogen Urine 0.2 EU/dL (0.2-1.0)
[2024-06-24 22:52] LABS: Bacteria Urine TRACE #/HPF (NONE SEEN); Cast Seen? NONE SEEN #/LPF (NONE SEEN); Crystals Seen? None Seen #/HPF (None Seen); Mucus Urine NONE SEEN (NONE SEEN); RBC Urine 0-2 #/HPF (0-2); Squamous Epithelial Cell Urine FEW #/LPF (NONE/RARE); Urine Culture Indicated YES
[2024-06-25 00:05] VITALS: BP 162/90; PULSE 82; O2SAT 98
== END 2024-06-25 00:07 | disposition home or self-care (01) ==
PROVIDERS: Emergency Provider Emergency Medicine; PCP Nurse Practitioner Family
DX: R55 Syncope and collapse (principal); R82.998 Other abnormal findings in urine; Z98.890 Other specified postprocedural states
CPT/HCPCS: 36415; 70450; 71045; 80048; 81001; 85007; 85027; 87086; 93005; 99285

== ENCOUNTER 2024-07-08 09:06 | Outpatient (OUT) | payer MEDICARE, SELFPAY ==
--- NOTE | 2024-07-08 | XR_ITS ---
The [address] [address] Patient Name: ELSA CATALAN MRN: [id number] date: 1960 Sex: F Assigned Patient Location: Current Patient Location: Accession/Order Number: [id number] Exam Date: 07/08/2024 09:22 Report Date: 07/08/2024 14:45 At the request of: STU DAVALOS Procedure: XR hip RT 2V w/ pelvis PROCEDURE: XR hip RT 2V w/ pelvis COMPARISON: 06/17/2024 HISTORY: RIGHT HIP AND PELVIS PAIN FINDINGS: BONES:Right intertrochanteric hip fracture with internal fixation utilizing intramedullary nail with dynamic compression screw. No new fracture, dislocation or mechanical failure SOFT TISSUES:Negative. No visible soft tissue swelling. EFFUSION:None visible. OTHER: Lateral thigh subcutaneous rosalio. Vascular calcifications XR/XR hip RT 2V w/ pelvis IMPRESSION: Stable right intertrochanteric hip fracture with internal fixation Electronically authenticated by: LATASHA GERARDO Date: 07/08/2024 14:45
== END 2024-07-08 09:07 | disposition home or self-care (01) ==
LOC: EC 09:06
PROVIDERS: PCP Nurse Practitioner Family; Visit Provider Orthopaedic Surgery
DX: S72.001D Fracture of unspecified part of neck of right femur, subsequent encounter for closed fracture with routine healing (principal)
CPT/HCPCS: 73502

== ENCOUNTER 2024-08-05 09:52 | Outpatient (OUT) | payer MEDICARE, SELFPAY ==
--- NOTE | 2024-08-05 | XR_ITS ---
The [address] [address] Patient Name: ELSA CATALAN MRN: [id number] date: 1960 Sex: F Assigned Patient Location: Current Patient Location: Accession/Order Number: [id number] Exam Date: 08/05/2024 10:15 Report Date: 08/06/2024 10:27 At the request of: STU DAVALOS Procedure: XR hip RT 2V w/ pelvis PROCEDURE: XR hip RT 2V w/ pelvis COMPARISON: 07/08/2024 HISTORY: RIGHT HIP AND PELVIS PAIN FINDINGS: BONES:Stable right intertrochanteric hip fracture with interval increase in bone formation or bony bridging. Internal fixation utilizing a dynamic compression screw and intramedullary nail. Moderate degenerative changes of the spine SOFT TISSUES:Negative. No visible soft tissue swelling. EFFUSION:None visible. OTHER: Negative. XR/XR hip RT 2V w/ pelvis IMPRESSION: Stable healing right intertrochanteric hip fracture with internal fixation Electronically authenticated by: LATASHA GERADRO Date: 08/06/2024 10:27
--- OUTSIDE RECORDS SUMMARY | 2024-08-05 10:00 | XMS_ITS | CCD ---
Author Organization [facility] Care Team Providers Care Associate Professor Of Anthropology Name Role Phone PEPE CARTER Unavailable Unavailable [...] Unavailabl e ILO, DELROY Primary Care Unavailable [facility] Consulting AYDE Daniels Admitting Unavailabl e JENY, PRETTY Primary Care Unavailable LEATHA GOMEZ Attending Unavailable HOY, PRETTY Primary Care Unavailable [facility] Consulting ROCHELLE Schwartz Admitting Unavailable [...] Fermin Primary Care Provider Ayde Almanzar Unavailable [phone] Leatha Gomez Unavailable [phone] Pretty Fermin MD Primary Care Provider [phone] Pretty Fermin MD Primary Care Provider [phone] JOYCE, TAWANDA Consulting Unavailable JOYCE, TAWANDA Primary [...] Unavailable Pretty Fermin MD Primary Care Provider [phone] Pretty Fermin MD Primary Care Provider [phone] PEPE CARTER Attending Unavailable PRETTY FERMIN Primary Care Unavailable PEPE CARTER Referring Unavailable PRTETY FERMIN Primary Care Unavailable PRETTY FERMIN Primary Care Unavailable PEPE CARTER Attending Unavailable PRETTY FERMIN Primary Care Unavailable PEPE CARTER Referring Unavailable PRETTY FERMIN Primary Care Unavailable Pretty Fermin MD Primary Care Provider [phone] MAGDALENA YOUNG Attending Unavailable HOY, PRETTY M Referring Unavailable LIU GAITAN Attending Unavailable HOY, PRETTY M Referring Unavailable FELA DISLA Attending Unavailable HOY, PRETTY M Referring Unavailable LIU GAITAN Attending Unavailable HOY, PRETTY M Referring Unavailable BRLIU CONTRERAS Attending Unavailable HOY, PRETTY M Referring Unavailable GUANAKITOY, FELA Attending Unavailable HOY, PRETTY M Referring Unavailable Allergies Allergy Classification Reported Allergen(s) Allergy Type Date of Onset Reaction(s) Facility (19 sources) indomethacin; Translations: [INDOMETHACIN] Drug Allergy 3 [facility] Repository (18 sources) penicillin; Translations: [PENICILLIN G] Drug Allergy 3 [facility] Repository (18 sources) propoxyphene; Translations: [PROPOXYPHENE] Drug Allergy 3 [facility] Repository (2 sources) OTHER; Translations: [OTHER] Propensity to adverse reactions (disorder) 3 [facility] Repository (12 sources) Penicillins; Translations: [Penicillins] Propensity to adverse reactions to drug 3 [facility] (10 sources) Lisinopril; Translations: [Unknown] Drug Allergy 9 Other (See Comments) [facility] (6 sources) Adhesive Tape-Silicones Propensity to adverse reactions to drug 9 [facility] (20 sources) Ciprofloxacin; Translations: [CIPROFLOXACIN] Drug Allergy 7 [facility] (14 sources) Anesthetics [Other] Propensity to adverse reactions 3 [facility] (1 source) Acetaminophen / oxyCODONE Drug Allergy 1 [facility] Repository (1 source) Ciprofloxacin Drug Allergy 7 [facility] Rep[facility] (1 source) Latex Drug allergy (disorder) 0 [facility] Repository (3 sources) Propofol; Translations: [PROPOFOL] Drug Allergy 4 [facility] Medications Current Medications Medication Drug Class(es) [...] Reasons: rheumatoid arthritis. 0 09/04/2019 Discontinued (Reorder) [id number] 200 actuat albuterol 0.09 mg/actuat metered dose [...] Comment on above: [facility] cholecalciferol, vitamin D3, (VITAMIN D3 [...] on above: Take 1 capsule by mo [facility] twice daily as needed for constipation. empagliflozin 25 mg oral tablet (20 sources) Sodium-Glucose Cotransporter 2 Inhibitor Start: 0 take 1 tablet by mouth once daily JARDIANCE 25 mg tablet Take 25 mg by mouth once daily. 07/02/2020 Active take 1 tablet by meera once daily in the morning, then take [...] on above: Take 1 capsule by mo [facility] once daily. folic acid 1 mg oral tablet (20 sources) Start: 07-26-20 End: 08-11-20 22 take 2 tablets by mouth once daily [...] Start: 01-14-2019 take 2 tablets by mo [facility] once daily in the morning, then [...] on above: Take 2 tablets by mo [facility] once daily. gabapentin 800 mg oral tablet [...] Oral, 3 times daily, First dose on Mon10/12/19 at 1700 Start: 01-21-2019 take 3 capsules [...] 02-14-2023 take 1 tablet by meera th once daily at mealtime leflunomide (ARAVA) 20 [...] mg, Oral, Every morning, First dose on [place] 10/13/19 at 0900 Hazardous medication. Use safe [...] mg oral tablet (20 sources) l-Thyroxine Start: 10-01-20 20 take 1 tablet by mouth once [...] 09-04-2019 End: 09-04-2019 5 mL, Other, Once, Wed at 1000, For 1 dose, Pre- Procedure for anesthesia block administration Start: 04-23-2019 lidocaine (XYL OCAINE) 4 % (40 mg/mL) external solution Start: 02-27-2019 End: 02-27-2019 5 mL, Other, Once, Wed at 0645, For 1 dose, Pre- Procedure [...] mg, Oral, Every morning, First dose on Mon02/28/19 at 0900 Comment on above: Day 1=6tabs [...] Oral, Daily with lunch, First dose on Mon10/13/19 at 1200 Start: 09-05-2019 End: 09-05-2019 take [...] Active docusate sodium 50 mg / sennosides, penitentiary 8.6 mg oral tablet (3 sources) Start: 10-12-2019 End: 10-14-2019 take 1 tablet by mouth twice daily 1 tablet, Oral, 2 times daily, First dose on Mon10/12/19 at 2100 NOT for abdominal surgery patients. Hold for loose stools. Do Not Crush or Chew if administering orally due to bitter taste. May be crushed if given via tube. Start: 09-04-2019 End: 09-05-2019 take 1 tablet by mouth twice daily 2 tablet, Oral, 2 times daily, First dos e on Mon09/04/19 at 2100 NOT for abdominal surgery patients. Hold for loose stools. Do Not Crush or Chew if administering orally due to bitter taste. May be crushed if given via tube. Start: 02-27-2019 End: 02-28-2019 take 1 tablet by mouth twice daily 1 tablet, Oral, 2 times daily, First dos e on Mon02/27/19 at 2100 NOT for abdominal surgery patients. [...] above: Take 1 tablet by meera th four times daily as needed (muscle spasm/pain). [...] Intravenous, Once as needed, nausea, vomiting, Starting 09/04/19 at 1400, For 1 dose, PACU (only) [...] every hour 75 mL/hr, Intravenous, Continuous, Starting 02/27/19 at 1330 Start: 02-27-2019 End: 02-28-2019 sodium [...] of right hand] Onset: 06-06-2024 Episodic Other connective tissue disease (6 sources) Other symptoms and signs involving the musculoskeletal system; Translations: [Other musculoskeletal symptoms referable to limbs] 07-11-2024 Episodic Other injuries and conditions due to [...] upper limbs] Chronic Other nervous system disorders (6 sources) Difficulty walking; Translations: [Difficulty in walking, not elsewhere classified] 07-11-2024 Chronic Other nervous system disorders (2 sources) Postoperative pain ; Translations: [Post-operative pain] Episodic Other nervous system disorders (1 source) Abnormal gait; Translations: [Unspecified abnormalities of gait and mobility] 11-23-2023 Episodic Other non-traumatic joint disorders (6 sources) Arthritis of elbow; 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] Onset: 09-04-2019 09-04-2019 Chronic Other non-traumatic joint disorders (20 sources) Hip pain; Translations: [Pain in right hip] Onset: 10-07-2011 10-07-2011 Episodic Other non-traumatic joint disorders (1 source) [...] sources) H/O: high risk medication; Translations: [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 Grey Inspector: SUSANA Transcribe Date/Time: Jun 07 2024 4:27P Dictated by : VINH RUIZ MD This examination was interpreted and the report reviewed and electronically signed by: VINH RUIZ MD on Jun 07 2024 4:36PM EST [id number] Normal [facility] CNOVon 05-18-2024 CNOV Office Visit (KATHLEEN ) ELSA CATALAN ([id number]) 1960 F Date Time Provider Department 05/18/24 [...] the flow of saliva in many patients. Wann flavored sugarless tablets and sugar-free chewing gum [...] should conta (more content not included)... Normal [facility] Elysia 05-15-2024 RENEE Telephone (CHAD) ELSA CATALAN ([id number]) 1960 F Date Time Provider Department 05/15/24 [...] 15, crp 0.7, vitamin D 34.8, vitamin [id number];negative quantiferon tb; Patient's request for medication is [...] 0 COMPREHENSIVE METABOLIC PANEL [SQCMP] Order #: [id number] FUTURE COMPLETE BLOOD COUNT [SQCBC] Order #: [id number] FUTURE SEDIMENTATION RATE, WESTERGREN [SQWSR] Order #: [id number] FUTURE C-REACTIVE PROTEIN [SQCRP] Order #: [id number] FUTURE VITAMIN D 25 HYDROXY [SQVITD] Order #: [id number] FUTURE Prescriptions as of 05/16/2024 - ergocalciferol [...] (ZOCOR) 20 (more content not included)... Normal [facility] 25(OH)D3 SerPl-ncon 2023 25-hydroxyvitamin D3 [Mass/Vol] 30.0 ng/mL Low 31.0-80.0 [facility] Comment on above: Order Comment: Specdipti sanchez Type: BLOOD SPECIMEN Ordering Facility: [facility] Address: [address] [place] [address] Result Comment: Clas sification of 25 OH Vitamin D status: Deficiency/Insufficiency: < or = 30 ng/ml. Sufficiency/Optimal Levels: 31-80 ng/mL Toxicity: > 100 ng/mL. Test performed by chemiluminescent immunoassay. Performed By: #### 1 989-3 #### [facility] CLIA [id number] [address] [place], [place] [address] [place] [address] [place] CBC panel Auto (Bld)on 05-14 Erythrocyte distribution width (RBC) [Ratio] 12.5 % Normal 11.5-15.0 [facility] Comment on above: Order Comment: Vivek sanchez Type: BLOOD SPECIMEN Ordering Facility: [facility] Address: [address] [place] [address] Performed By: #### 5 8410-2, 4537-7 #### [facility] CLIA [id number] [address] [place] [address] [place] Hematocrit (Bld) [Volume fraction] 39.1 % Normal 36.0-46.0 [facility] Comment on above: Order Comment: Speci men Type: BLOOD SPECIMEN Ordering Facility: [facility] Address: [address] [place] [address] Performed By: #### 5 8410-2, 4537-7 #### [facility] CLIA [id number] [address] [place] [address] [place] Hemoglobin (Bld) [Mass/Vol] 13.6 g/dL Normal 11.5-15.5 [facility] Comment on above: Order Comment: Speci men Type: BLOOD SPECIMEN Ordering Facility: [facility] Address: [address] [place] [address] Performed By: #### 5 8410-2, 4537-7 #### [facility] CLIA [id number] [address] [place] [address] [place] MCH (RBC) [Entitic mass] 29.6 pg Normal 26.0-34.0 [facility] Comment on above: Order Comment: Speci men Type: BLOOD SPECIMEN Ordering Facility: [facility] Address: [address] [place] [address] Performed By: #### 5 8410-2, 4537-7 #### [facility] CLIA [id number] [address] [place] [address] [place] MCHC (RBC) [Mass/Vol] 34.8 g/dL Normal 30.5-36.0 [facility] Comment on above: Order Comment: Speci men Type: BLOOD SPECIMEN Ordering Facility: [facility] Address: [address] [place] [address] Performed By: #### 5 8410-2, 4537-7 #### [facility] CLIA [id number] [address] [place] [address] [place] MCV (RBC) [Entitic vol] 85.0 fL Normal 80.0-100.0 [facility] Comment on above: Order Comment: Speci men Type: BLOOD SPECIMEN Ordering Facility: [facility] Address: [address] [place] [address] Performed By: #### 5 8410-2, 4537-7 #### [facility] CLIA [id number] [address] [place] [address] [place] Nucleated RBC (Bld) [#/Vol] 10*3/uL Normal <0.01 [facility] Comment on above: Order Comment: Speci men Type: BLOOD SPECIMEN Ordering Facility: [facility] Address: [address] [place] [address] Performed By: #### 5 8410-2, 4537-7 #### [facility] CLIA [id number] [address] [place] [address] [place] Platelet mean volume (Bld) [Entitic vol] 10.0 fL Normal 9.0-12.7 [facility] Comment on above: Order Comment: Speci men Type: BLOOD SPECIMEN Ordering Facility: [facility] Address: [address] [place] [address] Performed By: #### 5 8410-2, 4537-7 #### [facility] CLIA [id number] [address] [place] [address] [place] Platelets (Bld) [#/Vol] 319 10*3/uL Normal 150-400 [facility] Comment on above: Order Comment: Speci men Type: BLOOD SPECIMEN Ordering Facility: [facility] Address: [address] [place] [address] Performed By: #### 5 8410-2, 4537-7 #### [facility] CLIA [id number] [address] [place] [address] [place] RBC (Bld) [#/Vol] 4.60 10*6/uL Normal 3.90-5.20 [facility] Comment on above: Order Comment: Speci men Type: BLOOD SPECIMEN Ordering Facility: [facility] Address: [address] [place] [address] Performed By: #### 5 8410-2, 4537-7 #### [facility] CLIA [id number] [address] [place] [address] [place] WBC (Bld) [#/Vol] 7.63 10*3/uL Normal 3.70-11.00 [facility] Comment on above: Order Comment: Speci men Type: BLOOD SPECIMEN Ordering Facility: [facility] Address: [address] [place] [address] Performed By: #### 5 8410-2, 4537-7 #### [facility] CLIA [id number] [address] [place] [address] [place] CRP SerPl-mCncon 05-14-2024 CRP [Mass/Vol] 0.6 mg/dL Normal <0.9 [facility] Comment on above: Order Comment: Speci men Type: BLOOD SPECIMEN Ordering Facility: [facility] Address: [address] [place] [address] Performed By: #### 1 989-3 #### [facility] CLIA [id number] [address] [place] [address] [place] Comprehensive metabolic 2000 panelon 05-14-2024 Albumin [Mass/Vol] 4.1 g/dL Normal 3.9-4.9 [facility] Comment on above: Order Comment: Speci men Type: BLOOD SPECIMEN Ordering Facility: [facility] Address: [address] [place] [address] Performed By: #### 1 989-3 #### [facility] CLIA [id number] [address] [place] [address] [place] ALP [Catalytic activity/Vol] 85 U/L Normal 34-123 [facility] Comment on above: Order Comment: Speci men Type: BLOOD SPECIMEN Ordering Facility: [facility] Address: [address] [id number] Performed By: #### 1 989-3 #### [facility] CLIA [id number] [address] [place] [address] [place] ALT [Catalytic activity/Vol] 33 U/L Normal 7-38 [facility] Comment on above: Order Comment: Speci men Type: BLOOD SPECIMEN Ordering Facility: [facility] Address: [address] [place] [address] Performed By: #### 1 989-3 #### [facility] CLIA [id number] [address] [place] [address] [place] Anion gap [Moles/Vol] 10 mmol/L Normal 8-15 [facility] Comment on above: Order Comment: Speci men Type: BLOOD SPECIMEN Ordering Facility: [facility] Address: [address] [place] [address] Performed By: #### 1 989-3 #### [facility] CLIA [id number] [address] [place] [address] [place] AST [Catalytic activity/Vol] 27 U/L Normal 13-35 [facility] Comment on above: Order Comment: Speci men Type: BLOOD SPECIMEN Ordering Facility: [facility] Address: [address] [id number] Performed By: #### 1 989-3 #### [facility] CLIA [id number] [address] [place], [place] [address] [place] Bilirubin [Mass/Vol] 0.3 mg/dL Normal 0.2-1.3 [facility] Comment on above: Order Comment: Speci men Type: BLOOD SPECIMEN Ordering Facility: [facility] Address: [address] [place], [place] [address] Performed By: #### 1 989-3 #### [facility] CLIA [id number] [address] [place] [address] [place] Calcium [Mass/Vol] 9.7 mg/dL Normal 8.5-10.2 [facility] Comment on above: Order Comment: Speci men Type: BLOOD SPECIMEN Ordering Facility: [facility] Address: [address] [place] [address] Performed By: #### 1 989-3 #### [facility] CLIA [id number] [address] [place] [address] [place] Chloride [Moles/Vol] 98 mmol/L Normal 98-107 [facility] Comment on above: Order Comment: Speci men Type: BLOOD SPECIMEN Ordering Facility: [facility] Address: [address] [place] [address] Performed By: #### 1 989-3 #### [facility] CLIA [id number] [address] [place] [address] [place] CO2 [Moles/Vol] 31 mmol/L High 22-30 [facility] Comment on above: Order Comment: Speci men Type: BLOOD SPECIMEN Ordering Facility: [facility] Address: [address] [place] [address] Performed By: #### 1 989-3 #### [facility] CLIA [id number] [address] [place] [address] [place] Creatinine [Mass/Vol] 0.74 mg/dL Normal 0.58-0.96 [facility] Comment on above: Order Comment: Speci men Type: BLOOD SPECIMEN Ordering Facility: [facility] Address: [address] [place] [address] Performed By: #### 1 989-3 #### [facility] CLIA [id number] [address] [place] [address] [place] Creatinine and Glomerular filtration rate.predicted panel (S/P/Bld) 90 mL/min/1.73m??? Normal >=60 [facility] Comment on above: Order Comment: Speci men Type: BLOOD SPECIMEN Ordering Facility: [facility] Address: [address] [place] [address] Result Comment: Carrie mated Glomerular Filtration Rate [...] GFR. Performed By: #### 1 989-3 #### [facility] CLIA [id number] [address] [place] [address] [place] Glucose [Mass/Vol] 237 mg/dL High 74-99 [facility] Comment on above: Order Comment: Vivek sanchez Type: BLOOD SPECIMEN Ordering Facility: [facility] Address: [address] [place] [address] Result Comment: The [place] Diabetes [employer] (ADA) provides guidance for cutoff [...] Standards of Medical Care in Diabetes 2016, [place] [employer]. Diabetes Care. 2016.39(Suppl 1). Performed By: #### 1 989-3 #### [facility] CLIA [id number] [address] [place] [address] [place] Potassium [Moles/Vol] 3.6 mmol/L Low 3.7-5.1 [facility] Comment on above: Order Comment: Vivek sanchez Type: BLOOD SPECIMEN Ordering Facility: [facility] Address: [address] [place] [address] Performed By: #### 1 989-3 #### [facility] CLIA [id number] [address] [place] [address] [place] Protein [Mass/Vol] 7.7 g/dL Normal 6.3-8.0 [facility] Comment on above: Order Comment: Speci men Type: BLOOD SPECIMEN Ordering Facility: [facility] Address: [address] [place] [address] Performed By: #### 1 989-3 #### [facility] CLIA [id number] [address] [place] [address] [place] Sodium [Moles/Vol] 139 mmol/L Normal 136-144 [facility] Comment on above: Order Comment: Speci men Type: BLOOD SPECIMEN Ordering Facility: [facility] Address: [address] [place] [address] Performed By: #### 1 989-3 #### [facility] CLIA [id number] [address] [place] [address] [place] Urea nitrogen [Mass/Vol] 19 mg/dL Normal 7-21 [facility] Comment on above: Order Comment: Speci men Type: BLOOD SPECIMEN Ordering Facility: [facility] Address: [address] [place] [address] Performed By: #### 1 989-3 #### [facility] CLIA [id number] [address] [place] [address] [place] ESR Westergren method (Bld) [Velocity]on 05-14-2024 ESR (Bld) [Velocity] 37 mm/h High 0-20 [facility] Comment on above: Order Comment: Speci men Type: BLOOD SPECIMEN Ordering Facility: [facility] Address: [address] [place] [address] Performed By: #### 1 989-3 #### [facility] CLIA [id number] [address] [place] [address] [place] CNPNon 12-29-2023 CNPN Telephone (MARYSEULN) ELSA CATALAN ([id number]) 1960 F Date Time Provider Department 12/29/23 PEPE CARTER During your visit today, we recorded the following information about you: Rose Lindsay 12/29/2023 1:42 PM Signed Elsa is calling Pepe Carter MD today [...] calling: self Call patient at: on cell [phone] (home) [phone] (cell) Was an appointment scheduled: No Closing statement: Symptom Call: Thank you for calling [facility], your call is very important. A nurse will call in approximately 2-4 hours during business hours. If this is an emergency, please contact 911. Pepe Marte MD 12/30/2023 1:32 PM Signed Please call [...] Lm regarding results and recommendations sent via [employer]. Suri Rico, RN 01/01/2024 12:04 PM Signed [...] soon! Warm regards, :) Lauren Galo MA 01/02/2024 9:14 AM [...] Fully Assessed Reason for Visit: Patient Question [6071] Prescriptions as of 01/04/2024 - methotrexate 2.5 [...] glargine (L (more content not included)... [facility] BREEN Tele[facility] (CHAD) ELSA CATALAN ([id number]) 1960 F Date Time Provider Department 11/27/23 PEPE CARTER During your visit today, we recorded the following information about you: Pepe Carter MD 01/01/2024 5:56 PM Addendum Please Call patient if MyChart note not read to review results/released to My Chart if tests completed at F: Borderline glucose- will monitor with primary care [...] 15, crp 0.7, vitamin D 34.8, vitamin [id number];negative quantiferon tb; Lauren Galo MA 11/27/2023 8:45 [...] [E55.9] Order(s):COMP METABOLIC PANEL [SQCMP] Order #: [id number] FUTURE CBC [SQCBC] Order #: [id number] FUTURE SED RATE WESTERGREN [SQWSR] Order #: [id number] FUTURE C-REACTIVE PROTEIN (CRP) [SQCRP] Order #: [id number] FUTURE VITAMIN D 25 HYDROXY [SQVITD] Order #: [id number] FUTURE Prescriptions as of 01/01/2024 - methotrexate [...] daily. Prob (more content not included)... Normal [facility] 25(OH)D3 SerPl-mCncon 2023 25-hydroxyvitamin D3 [Mass/Vol] 34.8 ng/mL Normal 31.0-80.0 [facility] Comment on above: Order Comment: Speci men Type: BLOOD SPECIMEN Ordering Facility: [facility] Address: [address] [place] [address] Result Comment: Clas sification of 25 [place] Vitamin D status: Deficiency/Insufficiency: < or = 30 ng/ml. Sufficiency/Optimal Levels: 31-80 ng/mL Toxicity: > 100 ng/mL. Test performed by chemiluminescent immunoassay. Performed By: #### 5 8410-2, 4537-7 #### [facility] CLIA [id number] [address] [place] [address] STATES OF [facility] BLOOD TB SCREENon 11-23-2023 M. tuberculosis tuberculin stim IFN-g Ql (Bld) Negative Normal [facility] Comment on above: Order Comment: Mark Anthonyi laura Type: BLOOD SPECIMEN Ordering Facility: [facility] Address: [address] [place] [address] Performed By: #### I NFTBP #### [facility] CLIA [id number] [address] [place] [address] [place] MITOGEN MINUS NIL >9.83 Normal >=0.50 [facility] Comment on above: Order Comment: Speci men Type: BLOOD SPECIMEN Ordering Facility: [facility] Address: [address] [place] [address] Performed By: #### I NFTBP #### [facility] CLIA [id number] [address] [place] [address] [place] TB GAMMA INTERPRETATION Infection with M. tuberculosis complex is unlikely. If latent tuberculosis infection is highly suspected, a negative result does not rule out the infection. Specimens from immunocompromised patients and those <5 years of age may show false negative results. In case of a contact investigation, please repeat 8-12 weeks after a known exposure. Normal [facility] Comment on above: Order Comment: Speci men Type: BLOOD SPECIMEN Ordering Facility: [facility] Address: [address] [place] [address] Performed By: #### I NFTBP #### [facility] CLIA [id number] [address] [place] [address] [place] TB NIL 0.17 IU/mL Normal <=8.00 [facility] Comment on above: Order Comment: Speci men Type: BLOOD SPECIMEN Ordering Facility: [facility] Address: [address] [place] [address] Performed By: #### I NFTBP #### [facility] CLIA [id number] [address] [place] [address] [place] TB1 AG MINUS NIL 0.13 IU/mL Normal <0.35 [facility] Comment on above: Order Comment: Speci men Type: BLOOD SPECIMEN Ordering Facility: [facility] Address: [address] [place] [address] Performed By: #### I NFTBP #### [facility] CLIA [id number] [address] [place] [address] [place] TB2 AG MINUS NIL 0.13 IU/mL Normal <0.35 [facility] Comment on above: Order Comment: Speci men Type: BLOOD SPECIMEN Ordering Facility: [facility] Address: [address] [place] [address] Performed By: #### I NFTBP #### [facility] CLIA [id number] [address] [place] [address] [place] CBC panel Auto (Bld)on 11-23 Erythrocyte distribution width (RBC) [Ratio] 14.2 % Normal 11.5-15.0 [facility] Comment on above: Order Comment: Speci men Type: BLOOD SPECIMEN Ordering Facility: [facility] Address: [address] [place] [address] Performed By: #### 5 8410-2, 4537-7 #### [facility] CLIA [id number] [address] [place] [address] [place] Hematocrit (Bld) [Volume fraction] 40.3 % Normal 36.0-46.0 [facility] Comment on above: Order Comment: Speci men Type: BLOOD SPECIMEN Ordering Facility: [facility] Address: [address] [place] [address] Performed By: #### 5 8410-2, 4537-7 #### [facility] CLIA [id number] [address] [place] [address] [place] Hemoglobin (Bld) [Mass/Vol] 13.5 g/dL Normal 11.5-15.5 [facility] Comment on above: Order Comment: Speci men Type: BLOOD SPECIMEN Ordering Facility: [facility] Address: [address] [place] [address] Performed By: #### 5 8410-2, 4537-7 #### [facility] CLIA [id number] [address] [place] [address] [place] MCH (RBC) [Entitic mass] 30.5 pg Normal 26.0-34.0 [facility] Comment on above: Order Comment: Speci men Type: BLOOD SPECIMEN Ordering Facility: [facility] Address: [address] [place] [address] Performed By: #### 5 8410-2, 4537-7 #### [facility] CLIA [id number] [address] [place] [address] [place] MCHC (RBC) [Mass/Vol] 33.5 g/dL Normal 30.5-36.0 [facility] Comment on above: Order Comment: Speci men Type: BLOOD SPECIMEN Ordering Facility: [facility] Address: [address] [place] [address] Performed By: #### 5 8410-2, 453-7 #### [facility] CLIA [id number] [address] [place] [address] [place] MCV (RBC) [Entitic vol] 91.0 fL Normal 80.0-100.0 [facility] Comment on above: Order Comment: Speci men Type: BLOOD SPECIMEN Ordering Facility: [facility] Address: [address] [place] [address] Performed By: #### 5 8410-2, 4536-7 #### [facility] CLIA [id number] [address] [place] [address] [place] Nucleated RBC (Bld) [#/Vol] 10*3/uL Normal <0.01 [facility] Comment on above: Order Comment: Speci men Type: BLOOD SPECIMEN Ordering Facility: [facility] Address: [address] [place] [address] Performed By: #### 5 8410-2, 4536-7 #### [facility] CLIA [id number] [address] [place] [address] [place] Platelet mean volume (Bld) [Entitic vol] 10.2 fL Normal 9.0-12.7 [facility] Comment on above: Order Comment: Speci men Type: BLOOD SPECIMEN Ordering Facility: [facility] Address: [address] [place] [address] Performed By: #### 5 8410-2, 4536-7 #### [facility] CLIA [id number] [address] [place] [address] [place] Platelets (Bld) [#/Vol] 302 10*3/uL Normal 150-400 [facility] Comment on above: Order Comment: Speci men Type: BLOOD SPECIMEN Ordering Facility: [facility] Address: [address] [place] [address] Performed By: #### 5 8410-2, 4537 #### [facility] CLIA [id number] [address] [place] [address] [place] RBC (Bld) [#/Vol] 4.43 10*6/uL Normal 3.90-5.20 [facility] Comment on above: Order Comment: Speci men Type: BLOOD SPECIMEN Ordering Facility: [facility] Address: [address] [place] [address] Performed By: #### 5 8410-2, 45304-07 #### [facility] CLIA [id number] [address] [place] [address] [place] WBC (Bld) [#/Vol] 8.77 10*3/uL Normal 3.70-11.00 [facility] Comment on above: Order Comment: Speci men Type: BLOOD SPECIMEN Ordering Facility: [facility] Address: [address] [place] [address] Performed By: #### 5 8410-2, 4537 #### [facility] CLIA [id number] [address] [place] [address] [place] CNOVon 11-23-2023 CNOV Office Visit (CHAD ) ELSA CATALAN ([id number]) 1960 F Date Time Provider Department 11/23/23 [...] the flow of saliva in many patients. Wann flavored sugarless tablets and sugar-free chewing gum [...] dry e (more content not included)... Normal [facility] CRP SerPl-mCncon 11-23-2023 CRP [Mass/Vol] 0.7 mg/dL Normal <0.9 [facility] Comment on above: Order Comment: Vivek sanchez Type: BLOOD SPECIMEN Ordering Facility: [facility] Address: [address] [place] [address] Performed By: #### 1 989-3 #### [facility] CLIA [id number] [address] [place] [address] [place] Comprehensive metabolic 2000 panelon 11-23-2023 Albumin [Mass/Vol] 4.5 g/dL Normal 3.9-4.9 [facility] Comment on above: Order Comment: Vivek sanchez Type: BLOOD SPECIMEN Ordering Facility: [facility] Address: [address] [place] [id number] Performed By: #### 1 989-3 #### [facility] CLIA [id number] [address] [place] [address] [place] ALP [Catalytic activity/Vol] 79 U/L Normal 34-123 [facility] Comment on above: Order Comment: Speci men Type: BLOOD SPECIMEN Ordering Facility: [facility] Address: [address] [place] [address] Performed By: #### 1 989-3 #### [facility] CLIA [id number] [address] [place] [address] [place] ALT [Catalytic activity/Vol] 25 U/L Normal 7-38 [facility] Comment on above: Order Comment: Speci men Type: BLOOD SPECIMEN Ordering Facility: [facility] Address: [address] [place] [address] Performed By: #### 1 989-3 #### [facility] CLIA [id number] [address] [place] [address] [place] Anion gap [Moles/Vol] 13 mmol/L Normal 9-18 [facility] Comment on above: Order Comment: Speci men Type: BLOOD SPECIMEN Ordering Facility: [facility] Address: [address] [place], [place] [id number] Performed By: #### 1 989-3 #### [facility] CLIA [id number] [address] [place] [id number] [place] AST [Catalytic activity/Vol] 25 U/L Normal 13-35 [facility] Comment on above: Order Comment: Speci men Type: BLOOD SPECIMEN Ordering Facility: [facility] Address: [address] [place], [place] [address] Performed By: #### 1 989-3 #### [facility] CLIA [id number] [address] [place], [place] [address] [place] Bilirubin [Mass/Vol] 0.3 mg/dL Normal 0.2-1.3 [facility] Comment on above: Order Comment: Speci men Type: BLOOD SPECIMEN Ordering Facility: [facility] Address: [address] [place] [address] Performed By: #### 1 989-3 #### [facility] CLIA [id number] [address] [place] [address] [place] Calcium [Mass/Vol] 9.4 mg/dL Normal 8.5-10.2 [facility] Comment on above: Order Comment: Speci men Type: BLOOD SPECIMEN Ordering Facility: [facility] Address: [address] [place] [address] Performed By: #### 1 989-3 #### [facility] CLIA [id number] [address] [place] [address] [place] Chloride [Moles/Vol] 100 mmol/L Normal 97-105 [facility] Comment on above: Order Comment: Speci men Type: BLOOD SPECIMEN Ordering Facility: [facility] Address: [address] [place] [address] Performed By: #### 1 989-3 #### [facility] CLIA [id number] [address] [place] [address] [place] CO2 [Moles/Vol] 27 mmol/L Normal 22-30 [facility] Comment on above: Order Comment: Speci men Type: BLOOD SPECIMEN Ordering Facility: [facility] Address: [address] [place] [address] Performed By: #### 1 989-3 #### [facility] CLIA [id number] [address] [place] [address] [place] Creatinine [Mass/Vol] 0.72 mg/dL Normal 0.58-0.96 [facility] Comment on above: Order Comment: Speci men Type: BLOOD SPECIMEN Ordering Facility: [facility] Address: [address] [place] [address] Performed By: #### 1 989-3 #### [facility] CLIA [id number] [address] [place] [address] [place] Creatinine and Glomerular filtration rate.predicted panel (S/P/Bld) 94 mL/min/1.73m??? Normal >=60 [facility] Comment on above: Order Comment: Vivek sanchez Type: BLOOD SPECIMEN Ordering Facility: [facility] Address: [address] [place] [address] Result Comment: Carrie mated Glomerular Filtration Rate [...] GFR. Performed By: #### 1 989-3 #### [facility] CLIA [id number] [address] [place] [address] [place] Glucose [Mass/Vol] 146 mg/dL High 74-99 [facility] Comment on above: Order Comment: Vivek sanchez Type: BLOOD SPECIMEN Ordering Facility: [facility] Address: [address] [place] [address] Result Comment: The [place] Diabetes Association (ADA) provides guidance for cutoff [...] Standards of Medical Care in Diabetes 2016, [place] [employer]. Diabetes Care. 2016.39(Suppl 1). Performed By: #### 1 989-3 #### [facility] CLIA [id number] [address] [place] [address] [place] Potassium [Moles/Vol] 3.9 mmol/L Normal 3.7-5.1 [facility] Comment on above: Order Comment: Speci men Type: BLOOD SPECIMEN Ordering Facility: [facility] Address: [address] [place] [address] Performed By: #### 1 989-3 #### [facility] CLIA [id number] [address] [place] [address] [place] Protein [Mass/Vol] 7.9 g/dL Normal 6.3-8.0 [facility] Comment on above: Order Comment: Speci men Type: BLOOD SPECIMEN Ordering Facility: [facility] Address: [address] [place] [address] Performed By: #### 1 989-3 #### [facility] CLIA [id number] [address] [place] [address] [place] Sodium [Moles/Vol] 140 mmol/L Normal 136-144 [facility] Comment on above: Order Comment: Speci men Type: BLOOD SPECIMEN Ordering Facility: [facility] Address: [address] [place] [address] Performed By: #### 1 989-3 #### [facility] CLIA [id number] [address] [place] [address] [place] Urea nitrogen [Mass/Vol] 16 mg/dL Normal 7-21 [facility] Comment on above: Order Comment: Speci men Type: BLOOD SPECIMEN Ordering Facility: [facility] Address: [address] [place] [address] Performed By: #### 1 989-3 #### [facility] CLIA [id number] [address] [place] [address] [place] ESR Westergren method (Bld) [Velocity]on 11-23-2023 ESR (Bld) [Velocity] 15 mm/h Normal 0-20 [facility] Comment on above: Order Comment: Speci men Type: BLOOD SPECIMEN Ordering Facility: [facility] Address: [address] [place] [address] Performed By: #### 5 8410-2, 4537-7 #### [facility] CLIA [id number] [address] [place] [address] [place] Vit B12 [facility] Cobalamin (Vitamin B12) [Mass/Vol] 1203 pg/mL Normal 232-1245 [facility] Comment on above: Order Comment: Speci laura Type: BLOOD SPECIMEN Ordering Facility: [facility] Address: [address] [place] [address] Performed By: #### 1 989-3 #### [facility] CLIA [id number] [address] [place] [address] OF [place] CN[facility] ([id number]) 1960 F Date Time Provider Department 07/10/23 PEPE CARTER During your visit today, we recorded the following information about you: Lesli Navarro LPN 07/10/2023 2:46 PM Signed Received refill request from [employer]. Form placed on your desk for signature. Pepe Carter MD 07/10/2023 3:20 PM Signed Form completed. Please process accordingly. Scan copy into [employer]. Notify patient when above completed. Recall in [...] medication [Z79.899] (more content not included)... Normal [facility] MG MAMM SCREEN 3D ALICIA CADon 12-07-2022 MG MAMM SCREEN 3D ALICIA CAD Patient: ELSA CATALAN Exam Date: 12/07/2022 : 1960 Gender:F Ordering : TAWANDA COOK [facility] Admission #: [id number] Family : Order #: [id number] CLICK HERE TO VIEW EXAM RADIOLOGY REPORT PROCEDURE: MAMMOGRAM SCREENING 3D BILATERAL CAD COMPARISON: MG MAMM ALICIA DIAG W CAD, 04/30/2014. INDICATIONS: Screening mammography Calculator Name NCI Breast Cancer Risk Assessment Tool 5 Year Breast Cancer Risk 1.80% Lifetime Breast Cancer Risk 8.20% Personal Breast Cancer No Personal Ovarian Cancer No Treatments None Family Cancers None LOCATION: [facility] BREAST COMPOSITION: Heterogeneously dense,which may obscure small [...] Hayes MD on 12/08/2022 at 08:08 Normal [facility] NM STRESS/REST MULTIon 11-02 NM STRESS/REST MULTI Patient: ELSA CATALAN Exam Date: 11/02/2022 : 1960 Gender:F Ordering : TAWANDA CooleyIsabel JOYCE [facility] Admission #: [id number] Family : Order #: [id number] CLICK HERE TO VIEW EXAM RADIOLOGY REPORT [...] MD on 11/03/2022 at 07:39 Normal [facility] Covid-19 PCR (CVDTBH)on 09-01 SARS-CoV-2 (COVID-19) RNA ISAC+probe Ql (Unsp spec) Not detected Normal NOT DETECTED [facility] Comment on above: Result Comment: This test is not yet approved or cleared by the [place] FDA. When there are no FDA-approved or cleared tests available, and other criteria are met, FDA can make tests available under an emergency access mechanism called an Emergency Use Authorization (EUA). The EUA for this test is supported by the [place] of Health and Human Service's (HHS's) declaration [...] Performed By: #### F T3, TSH #### [facility] [address] [place] [address] Dr. Мария Horne INFLUENZA A AND B [facility] 09-19 [facility] SEE BELOW Normal [facility] Comment on above: Result Comment: Nega tive for Flu A protein angiten. Infection due to Flu A cannot be ruled out. Flu A angiten in the sample may be below the detection limit of the test. Performed By: #### F T3, TSH #### [facility] [address] [place] [address] Dr. [facility] Normal [facility] Comment on above: Result Comment: Nega tive for Flu B protein antigen. Infection due to Flu B cannot be ruled out. Flu B antigen in the sample may be below the detection limit of the test. Performed By: #### F T3, TSH #### [facility] [address] [place] [address] Dr. Мария Horne INFLUENZA A AG Negative Normal NEGATIVE SEE COMMENT [facility] Comment on above: Performed By: #### F T3, TSH #### [facility] [address] [place] [address] Dr. Мария Horne INFLUENZA B AG Negative Normal NEGATIVE SEE COMMENT [facility] Comment on above: Performed By: #### F T3, TSH #### [facility] [address] [place] [address] Dr. Мария Horne INTERNAL CONTROLS Within Normal Limits Normal Wi thin Normal Limits [facility] Comment on above: Performed By: #### F T3, TSH #### [facility] [address] [place] [address] Dr. Мария Horne XR CHEST 2 Von [...] by: LATASHA HAYES Date: 2022-07-06 16:11 Normal [facility] FREE T3on 02-01-2022 FREE T3 2.58 pg/mlL Normal 2.18-3.98 [facility] Comment on above: Performed By: #### F T3, TSH #### [facility] [address] [place] [address] Dr. Мария Horne FREE T4on 02-01-2022 Free T4 [Mass/Vol] 1.25 ng/dL Normal 0.76-1.46 [facility] Comment on above: Performed By: #### F T4 #### [facility] [address] [place] [address] Dr. Мария Horne TSHon 02-01-2022 TSH 1.679 uIU/mL Normal 0.470-4.680 [facility] Comment on above: Performed By: #### F T3, TSH #### [facility] [address] [place] [address] Dr. Мария Horne TSH RANGE SEE BELOW Normal [facility] Comment on above: Result Comment: <0.3 4 UIU/ml HYPERTHYROID 0.34-5.60 UIU/ml EUTHYROID >5.60 UIU/ml HYPOTHYROID Performed By: #### F T3, TSH #### [facility] [address] [place] [address] Dr. Мария Horne AMYLASEon 01-13-2022 Amylase [Catalytic activity/Vol] 65 U/L Normal 25-115 [facility] Comment on above: Performed By: #### L IPA, JANEL #### [facility] [address] [place] [address] Dr. Мария Horne CBC AUTO DIFFon 01-13-2022 BASO # 0.1 103/ul Normal 0.0-0.1 [facility] Comment on above: Performed By: #### C BC #### [facility] [address] [place] [address] Dr. Мария Horne Basophils/100 WBC (Bld) 1.1 % Normal 0.2-2.0 [facility] Comment on above: Performed By: #### C BC #### [facility] [address] [place] [address] Dr. Мария Horne EO # 0.2 103/ul Normal 0.0-0.7 [facility] Comment on above: Performed By: #### C BC #### [facility] [address] [place] [address] Dr. Мария Horne Eosinophils/100 WBC (Bld) 2.8 % Normal 0.9-7.0 [facility] Comment on above: Performed By: #### C BC #### [facility] [address] [place] [address] Dr. Мария Horne Erythrocyte distribution width (RBC) [Ratio] 13.7 % Normal 11.0-15.0 [facility] Comment on above: Performed By: #### C BC #### [facility] [address] [place] [address] Dr. Мария Horne Hematocrit (Bld) [Volume fraction] 37.3 % Normal 36.0-48.0 [facility] Comment on above: Performed By: #### C BC #### [facility] [address] [place] [address] Dr. Мария Horne Hemoglobin (Bld) [Mass/Vol] 12.4 g/dL Normal 12.0-16.0 [facility] Comment on above: Performed By: #### C BC #### [facility] [address] [place] [address] Dr. Мария Horne IG # 0.01 10e3/ul Normal 0.00-0.03 [facility] Comment on above: Performed By: #### C BC #### [facility] [address] [place] [address] Dr. Мария Horne IG % 0.2 % Normal 0.0-0.5 [facility] Comment on above: Performed By: #### C BC #### [facility] [address] [place] [address] Dr. Мария Horne LYMPH # 2.0 103/ul Normal 1.2-3.8 [facility] Comment on above: Performed By: #### C BC #### [facility] [address] [place] [address] Dr. Мария Horne Lymphocytes/100 WBC (Bld) 33.2 % Normal 20.5-60.0 [facility] Comment on above: Performed By: #### C BC #### [facility] [address] [place] [address] Dr. Мария Horne MANUAL DIFF REQ NO Normal [facility] Comment on above: Performed By: #### C BC #### [facility] [address] [place] [address] Dr. Мария Horne MCH (RBC) [Entitic mass] 30.0 pg Normal 26.7-34.0 [facility] Comment on above: Performed By: #### C BC #### [facility] [address] [place] [address] Dr. Мария Horne MCHC (RBC) [Mass/Vol] 33.2 g/dL Normal 29.9-35.2 [facility] Comment on above: Performed By: #### C BC #### [facility] [address] [place] [address] Dr. Мария Horne MCV (RBC) [Entitic vol] 90.1 fL Normal 81.0-99.0 [facility] [facility] Comment on above: Performed By: #### C BC #### [facility] [address] [place] [address] Dr. Мария Horne MONO # 0.9 103/ul Critically high 0.3-0.8 [facility] Comment on above: Performed By: #### C BC #### [facility] [address] [place] [address] Dr. Мария Horne Monocytes/100 WBC (Bld) 14.1 % Critically high 1.7-12.0 [facility] Comment on above: Performed By: #### C BC #### [facility] [address] [place] [address] Dr. Мария Horne NEUT # 3.0 103/ul Normal 1.4-6.5 [facility] Comment on above: Performed By: #### C BC #### [facility] [address] [place] [address] Dr. Мария Horne Neutrophils/100 WBC (Bld) 48.6 % Normal 43.0-75.0 [facility] Comment on above: Performed By: #### C BC #### [facility] [address] [place] [address] Dr. Мария Horne Platelet mean volume (Bld) [Entitic vol] 9.0 fL Critically low 9.5-13.5 [facility] Comment on above: Performed By: #### C BC #### [facility] [address] [place] [address] Dr. Мария Horne PLT 263 103/ul Normal 150-450 [facility] Comment on above: Performed By: #### C BC #### [facility] [address] [place] [address] Dr. Мария Horne RBC 4.14 106/ul Critically low 4.20-5.40 [facility] Comment on above: Performed By: #### C BC #### [facility] [address] [place] [address] Dr. Мария Horne WBC 6.1 103/ul Normal 4.0-11.0 [facility] Comment on above: Performed By: #### C BC #### [facility] [address] [place] [address] ABDOMEN W CONon [...] by: STU SAMUEL Date: 2022-01-13 10:05 Normal [facility] LIPASEon 01-13-2022 Lipase [Catalytic activity/Vol] 167.0 U/L Normal 23.0-300.0 [facility] Comment on above: Performed By: #### L IPA, JANEL #### [facility] [address] [place] [address] Dr. Мария Horne PROF 14(COMP METB)on 022 Albumin [Mass/Vol] 3.6 g/dL Normal 3.4-5.0 [facility] Comment on above: Performed By: #### F T3, TSH #### [facility] [address] [address] [address] Мария Horne Albumin/Globulin [Mass ratio] 0.8 {ratio} Normal [facility] Comment on above: Performed By: #### F T3, TSH #### [facility] [address] [address] [address] Мария Horne ALP [Catalytic activity/Vol] 75 U/L Normal 46-116 [facility] Comment on above: Performed By: #### F T3, TSH #### [facility] [address] [address] [address] Мария Horne ALT [Catalytic activity/Vol] 46 U/L Normal 14-59 [facility] Comment on above: Performed By: #### F T3, TSH #### [facility] [address] [address] [address] Мария Horne Anion gap [Moles/Vol] 12.2 mmol/L Normal [facility] Comment on above: Performed By: #### F T3, TSH #### [facility] [address] [address] [address] Мария Horne AST [Catalytic activity/Vol] 37 U/L Normal 15-37 [facility] Comment on above: Performed By: #### F T3, TSH #### [facility] [address] [address] [address] Мария Horne Bilirubin [Mass/Vol] 0.4 mg/dL Normal 0.2-1.3 [facility] Comment on above: Performed By: #### F T3, TSH #### [facility] [address] [address] [address] Мария Horne Calcium [Mass/Vol] 8.1 mg/dL Critically low 8.5-10.1 [facility] Comment on above: Performed By: #### F T3, TSH #### [facility] [address] [address] [address] Мария Horne Chloride [Moles/Vol] 104 mmol/L Normal 98-107 [facility] Comment on above: Performed By: #### F T3, TSH #### [facility] [address] [address] [address] Мария Horne CO2 [Moles/Vol] 27.3 mmol/L Normal 22.0-30.0 [facility] Comment on above: Performed By: #### F T3, TSH #### [facility] [address] [address] [address] Мария Horne Creatinine [Mass/Vol] 0.73 mg/dL Normal 0.52-1.04 [facility] Comment on above: Performed By: #### F T3, TSH #### [facility] [address] [address] [address] Мария Horne EGFR-AF ETHIOPIAN >60 Normal >=60 [facility] Comment on above: Performed By: #### F T3, TSH #### [facility] [address] [address] [address] Мария Horne EGFR-NON AF ETHIOPIAN >60 Normal >=60 [facility] Comment on above: Performed By: #### F T3, TSH #### [facility] [address] [address] [address] Мария Horne Globulin (S) [Mass/Vol] 4.5 g/dL Normal [facility] Comment on above: Performed By: #### F T3, TSH #### [facility] [address] [address] [address] Мария Horne Glucose [Mass/Vol] 95 mg/dL Normal 74-106 [facility] Comment on above: Performed By: #### F T3, TSH #### [facility] [address] [address] [address] Мария Horne Potassium [Moles/Vol] 3.5 mmol/L Normal 3.4-5.0 [facility] Comment on above: Performed By: #### F T3, TSH #### [facility] [address] [address] [address] Мария Horne Protein [Mass/Vol] 8.1 g/dL Normal 6.1-8.2 [facility] Comment on above: Performed By: #### F T3, TSH #### [facility] [address] [address] [address] Мария Horne Sodium [Moles/Vol] 140 mmol/L Normal 137-145 [facility] Comment on above: Performed By: #### F T3, TSH #### [facility] [address] [address] [address] Мария Horne Urea nitrogen [Mass/Vol] 15.0 mg/dL Normal 7.0-18.0 [facility] Comment on above: Performed By: #### F T3, TSH #### [facility] [address] [address] [address] Мария Horne Urea nitrogen/Creatinine [Mass ratio] 20.5 mg/mg Normal [facility] Comment on above: Performed By: #### F T3, TSH #### [facility] [address] [place] [address] Dr. Мария Horne US SINGLE QUAD RT [...] LATASHA HOWELL Date: 2021-12-31 10:44 Normal [facility] INSULINon 12-29-2021 Insulin 8.7 uIU/mL Normal 2.6-24.9 [facility] Comment on above: Performed By: #### I NSULIN #### [facility] [address] [place] [address] Dr. Мария Horne CBC AUTO DIFFon 12-28-2021 BASO # 0.1 103/ul Normal 0.0-0.1 [facility] Comment on above: Performed By: #### C BC #### [facility] [address] [place] [address] Dr. Мария Horne Basophils/100 WBC (Bld) 0.8 % Normal 0.2-2.0 [facility] Comment on above: Performed By: #### C BC #### [facility] [address] [place] [address] Dr. Мария Horne EO # 0.3 103/ul Normal 0.0-0.7 [facility] Comment on above: Performed By: #### C BC #### [facility] [address] [place] [address] Dr. Мария Horne Eosinophils/100 WBC (Bld) 3.2 % Normal 0.9-7.0 [facility] Comment on above: Performed By: #### C BC #### [facility] [address] [place] [address] Dr. Мария Horne Erythrocyte distribution width (RBC) [Ratio] 13.7 % Normal 11.0-15.0 [facility] Comment on above: Performed By: #### C BC #### [facility] [address] [place] [address] Dr. Мария Horne Hematocrit (Bld) [Volume fraction] 43.1 % Normal 36.0-48.0 [facility] Comment on above: Performed By: #### C BC #### [facility] [address] [place] [address] Dr. Мария Horne Hemoglobin (Bld) [Mass/Vol] 14.5 g/dL Normal 12.0-16.0 [facility] Comment on above: Performed By: #### C BC #### [facility] [address] [place] [address] Dr. Мария Horne IG # 0.02 10e3/ul Normal 0.00-0.03 [facility] Comment on above: Performed By: #### C BC #### [facility] [address] [place] [address] Dr. Мария Horne IG % 0.2 % Normal 0.0-0.5 [facility] Comment on above: Performed By: #### C BC #### [facility] [address] [place] [address] Dr. Мария Horne LYMPH # 3.0 103/ul Normal 1.2-3.8 [facility] Comment on above: Performed By: #### C BC #### [facility] [address] [place] [address] Dr. Мария Horne Lymphocytes/100 WBC (Bld) 35.8 % Normal 20.5-60.0 [facility] Comment on above: Performed By: #### C BC #### [facility] [address] [place] [address] Dr. Мария Horne MANUAL DIFF REQ NO Normal [facility] Comment on above: Performed By: #### C BC #### [facility] [address] [address] [address] Мария Horne MCH (RBC) [Entitic mass] 30.0 pg Normal 26.7-34.0 [facility] Comment on above: Performed By: #### C BC #### [facility] [address] [place] [address] Dr. Мария Horne MCHC (RBC) [Mass/Vol] 33.6 g/dL Normal 29.9-35.2 [facility] Comment on above: Performed By: #### C BC #### [facility] [address] [place] [address] Dr. Мария Horne MCV (RBC) [Entitic vol] 89.2 fL Normal 81.0-99.0 [facility] Comment on above: Performed By: #### C BC #### [facility] [address] [place] [address] Dr. Мария Horne MONO # 0.8 103/ul Normal 0.3-0.8 [facility] Comment on above: Performed By: #### C BC #### [facility] [address] [place] [address] Dr. Мария Horne Monocytes/100 WBC (Bld) 9.1 % Normal 1.7-12.0 [facility] Comment on above: Performed By: #### C BC #### [facility] [address] [place] [address] Dr. Мария Horne NEUT # 4.2 103/ul Normal 1.4-6.5 [facility] Comment on above: Performed By: #### C BC #### [facility] [address] [place] [address] Dr. Мария Horne Neutrophils/100 WBC (Bld) 50.9 % Normal 43.0-75.0 [facility] Comment on above: Performed By: #### C BC #### [facility] [address] [place] [address] Dr. Мария Horne Platelet mean volume (Bld) [Entitic vol] 9.8 fL Normal 9.5-13.5 [facility] Comment on above: Performed By: #### C BC #### [facility] [address] [address] [address] Мария Horne PLT 314 103/ul Normal 150-450 [facility] Comment on above: Performed By: #### C BC #### [facility] [address] [address] [address] Мария Horne RBC 4.83 106/ul Normal 4.20-5.40 [facility] Comment on above: Performed By: #### C BC #### [facility] [address] [address] [address] Мария Horne WBC 8.2 103/ul Normal 4.0-11.0 [facility] Comment on above: Performed By: #### C BC #### [facility] [address] [address] [address] Мария Horne FREE THYROXINE INDEX T7on FTI 1.38 Normal [facility] Comment on above: Performed By: #### F T3, TSH #### [facility] [address] [address] [address] Мария Horne T3U 32.0 % Normal 23.5-40.5 [facility] Comment on above: Performed By: #### F T3, TSH #### [facility] [address] [address] [address] Мария Horne T4 [Mass/Vol] 4.30 ug/dL Critically low 5.53-11.00 [facility] Comment on above: Performed By: #### F T3, TSH #### [facility] [address] [address] [address] Мария Horne GLYCOHEMOGLOBIN A1Con 2021 ADA RECOMMENDATION ADA THERAPEUTIC TARG ET 6.0 - 7.0 ACTION SUGGESTED > 7.0 Normal [facility] Comment on above: Performed By: #### F T3, TSH #### [facility] [address] [address] [address] Мария Horne Glucose [Mass/Vol] 252 mg/dL Normal [facility] Comment on above: Performed By: #### F T3, TSH #### [facility] [address] [address] [address] Мария Horne HbA1c (Bld) [Mass fraction] 10.4 % Critically high <=6.0 [facility] Comment on above: Performed By: #### F T3, TSH #### [facility] [address] [address] [address] Мария Horne IRONon 12-28-2021 Iron [Mass/Vol] 84.0 ug/dL Normal 37.0-170.0 [facility] Comment on above: Performed By: #### I JENNIFER #### [facility] [address] [address] [address] Мария Horne LIPID PROFILEon 12-28-2021 CHOL-HDL RATIO NORM SEE BELOW Normal [facility] Comment on above: Result Comment: 3.3 - 4.4 LOW RISK 4.4 - 7.1 AVERAGE RISK 7.1 - 11.0 MODERATE RISK >11.0 HIGH RISK Performed By: #### F T3, TSH #### [facility] [address] [place] [address] Dr. Мария Horne Cholesterol [Mass/Vol] 217 mg/dL Critically high <=200 [facility] Comment on above: Performed By: #### F T3, TSH #### [facility] [address] [place] [address] Dr. Мария Horne Cholesterol in HDL [Mass/Vol] 47 mg/dL Normal 40-60 [facility] Comment on above: Performed By: #### F T3, TSH #### [facility] [address] [address] [address] Мария Horne Cholesterol in LDL [Mass/Vol] 126.6 mg/dL Normal [facility] Comment on above: Performed By: #### F T3, TSH #### [facility] [address] [address] [address] Мария Horne Cholesterol.total/C holesterol in HDL [Mass ratio] 4.6 {ratio} Normal [facility] Comment on above: Performed By: #### F T3, TSH #### [facility] [address] [address] [address] Мария Horne HDL NORMAL > or = 60 mg/dl - LO W CARDIOVASCULAR RISK <40 mg/dl - HIGH CARDIOVASCULAR RISK Normal [facility] Comment on above: Performed By: #### F T3, TSH #### [facility] [address] [address] [address] Мария Horne LDL CALC NORMAL SEE BELOW Normal [facility] Comment on above: Result Comment: <100 mg/dl OPTIMAL 100 - 129 mg/dl NEAR OR ABOVE OPTIMAL 130 - 159 mg/dl BORDERLINE HIGH 160 - 189 mg/dl HIGH >190 mg/dl VERY HIGH Performed By: #### F T3, TSH #### [facility] [address] [address] [address] Мария Horne Triglyceride [Mass/Vol] 217 mg/dL Critically high <=150 [facility] Comment on above: Performed By: #### F T3, TSH #### [facility] [address] [address] [address] Мария Horne VLDL CALC 43.4 mg/dL Normal [facility] Comment on above: Performed By: #### F T3, TSH #### [facility] [address] [address] [address] Мария Horne OCC BLD IMMUNO SCREENon 12-01 OCCULT BLOOD Negative Normal NEGATIVE [facility] Comment on above: Performed By: #### O BSCRN #### [facility] [address] [address] [address] Мария Horne PROF 14(COMP METB)on 022 Albumin [Mass/Vol] 3.8 g/dL Normal 3.4-5.0 [facility] Comment on above: Performed By: #### F T3, TSH #### [facility] [address] [place] [address] Dr. Мария Horne Albumin/Globulin [Mass ratio] 0.7 {ratio} Normal [facility] Comment on above: Performed By: #### F T3, TSH #### [facility] [address] [address] [address] Мария Horne ALP [Catalytic activity/Vol] 81 U/L Normal 46-116 [facility] Comment on above: Performed By: #### F T3, TSH #### [facility] [address] [address] [address] Мария Horne ALT [Catalytic activity/Vol] 36 U/L Normal 14-59 [facility] Comment on above: Performed By: #### F T3, TSH #### [facility] [address] [address] [address] Мария Horne Anion gap [Moles/Vol] 14.4 mmol/L Normal [facility] Comment on above: Performed By: #### F T3, TSH #### [facility] [address] [address] [address] Мария Horne AST [Catalytic activity/Vol] 26 U/L Normal 15-37 [facility] Comment on above: Performed By: #### F T3, TSH #### [facility] [address] [address] [address] Мария Horne Bilirubin [Mass/Vol] 0.4 mg/dL Normal 0.2-1.3 [facility] Comment on above: Performed By: #### F T3, TSH #### [facility] [address] [address] [address] Мария Horne Calcium [Mass/Vol] 8.4 mg/dL Critically low 8.5-10.[address] [facility] Comment on above: Performed By: #### F T3, TSH #### [facility] [address] [address] [address] Мария Horne Chloride [Moles/Vol] 99 mmol/L Normal 98-107 [facility] Comment on above: Performed By: #### F T3, TSH #### [facility] [address] [address] [address] Мария Horne CO2 [Moles/Vol] 28.8 mmol/L Normal 22.0-30.0 [facility] Comment on above: Performed By: #### F T3, TSH #### [facility] [address] [address] [address] Мария Horne Creatinine [Mass/Vol] 0.80 mg/dL Normal 0.52-1.04 [facility] Comment on above: Performed By: #### F T3, TSH #### [facility] [address] [address] [address] Мария Horne EGFR-AF ETHIOPIAN >60 Normal >=60 [facility] Comment on above: Performed By: #### F T3, TSH #### [facility] [address] [address] [address] Мария Horne EGFR-NON AF ETHIOPIAN >60 Normal >=60 [facility] Comment on above: Performed By: #### F T3, TSH #### [facility] [address] [address] [address] Мария Horne Globulin (S) [Mass/Vol] 5.1 g/dL Normal [facility] Comment on above: Performed By: #### F T3, TSH #### [facility] [address] [address] [address] Мария Horne Glucose [Mass/Vol] 212 mg/dL Critically high 74-106 [facility] Comment on above: Performed By: #### F T3, TSH #### [facility] [address] [address] [address] Мария Horne Potassium [Moles/Vol] 3.2 mmol/L Critically low 3.4-5.0 [facility] Comment on above: Performed By: #### F T3, TSH #### [facility] [address] [address] [address] Мария Horne Protein [Mass/Vol] 8.9 g/dL Critically high 6.1-8.2 [facility] Comment on above: Performed By: #### F T3, TSH #### [facility] [address] [address] [address] Мария Horne Sodium [Moles/Vol] 139 mmol/L Normal 137-145 [facility] Comment on above: Performed By: #### F T3, TSH #### [facility] [address] [address] [address] Мария Horne Urea nitrogen [Mass/Vol] 14.0 mg/dL Normal 7.0-18.0 [facility] Comment on above: Performed By: #### F T3, TSH #### [facility] [address] [address] [address] Мария Horne Urea nitrogen/Creatinine [Mass ratio] 17.5 mg/mg Normal [facility] Comment on above: Performed By: #### F T3, TSH #### [facility] [address] [address] [address] Мария Horne TSHon 12-28-2021 TSH 115.875 uIU/mL Critically high 0.470-4.680 [facility] Comment on above: Performed By: #### F T3, TSH #### [facility] [address] [address] [address] Мария Horne TSH RANGE SEE BELOW Normal [facility] Comment on above: Result Comment: <0.3 4 UIU/ml HYPERTHYROID 0.34-5.60 UIU/ml EUTHYROID >5.60 UIU/ml HYPOTHYROID Performed By: #### F T3, TSH #### [facility] [address] [address] [address] Мария Horne Ambulatory Clinical Summaryo n 08-18-2021 Ambulatory Clinical Summary {[id number]}CD:[id number] Normal [facility] General Surgery Office/Clini c Noteon 08-18-2021 [...] (COVID-19) mRNA BNT-162b2 vax 07/01/2021 Recorded Normal [facility] Comment on above: Result Comment: Elec tronically Signed By: KEMAR EVANS, Lan Glass\Date and Time Signed: 08/18/21 16:32 EST Pathology Noteon 08-16-2021 Pathology Note [id number]#1.00C D:127 Normal [facility] Operative Reporton Operative Report [id number]#1.00C D:127 Normal [facility] Lab Reportson 08-09-2021 Lab Reports [id number]#1.00C D:127 Normal [facility] [place] [facility] [place] Letter [facility] August 04, 2021 TAWANDA COOK, [address], [place] [address] Re: ELSA CATALAN Date of : 1960 Thank you for your referral of Elsa Catalan who was seen on July 30, 2021, for right mid-back mass. An excisional biopsy is planned. I have enclosed my consultation note for your review. I will be happy to follow Elsa. Sincerely, Lan Hough MD General Surgery [facility] Consent for Procedure/Surger yon 08-02-2021 Consent for Procedure/Surgery [id number]#1.00C D:127 Normal [facility] General Surgery Office/Clini c Noteon 08-02-2021 General Surgery Office/Clinic Note CD:[id number] HhTeatOlETesQz3ot6euZU0 9dn7uDlQiWj5+ZgagRL2YKN lQRSBo kI1bPFWGAiaLLsDiGO0lUeV KBg2QETOuIRnEPLrfDP7fOZ G8tlqxiK3kET1qPZIgwVRcU f5tv7c9 CjnuPz7bLc4RUm25yWRerZA mMDFWF1uunO0tXD7ogJHlA7 IpRAOxYv2GRVz1aXsfgA6xu pB9Rds9 tIW9Sd97j1bbgoVgh1WrBvU 2UBcyjSd2bHhmUGnmfY4lDr DpQXAGyN5mnQowOD1qiQ0aw nRhdGlv biI+IonvMEMbNwp7rBQfNP2 2M2BciVjxUax6mKG4SCRafZ UqSFFdmZp0GUNYLCRJXPDfu XBhdGli wMErRTMbdfVmccV6UppGPGU fMiXtFew0X0tkQFQ+Cjxib2 L2Pih6TDz7LFC3zPecHLSsk 250LWZh eThbjHgnbPRqm06rCPVzbAR hKiQxv144UTSvbdQ3KFecbJ drVxn1rDMtiHZjc2gbmJq2V jEwMCUi JwaTLGJcmVvvf9FbYtlZIHa vg2gztmHleIvsPYI0x9HfFF siQOOuELO8EuMvJK7+CgkJP GNvbCB2 FLyqR264SoDkcAKgo0hoaSi 7QoM9JZHbAx0TLRxiF97fK1 JvdXA+Dau7rVZjBTb+CgkJP HRyPgoJ XBi8zDKxb9V5rZS0ZiBemzW vw4m9JYmrGCB9JbD9UJO1rZ KkkJ8ngGzqyyebeT7pHqV+C gkJCTxk aGOaJ6lyo6M9QeHln5HlyEo yvpLbOEAsYzPyg4dzNjxhJQ NvjW1rCGN6IlDrAJOsiLLmY THfSR2b inVlrWDmQJPhQjLeS6Ymy80 gx1UhPTNFL8hSLsNbYSC0PV 4oJlRyLX7tH3KxMGZ9UsBxT SR1Vayc VSWvDe10D1I0LMKeMVo3QNA wExRpKqAol9G5rHK0XwKoGB Vvwoz0WIEgpPcgIwkudVZaM GNsYXNz EGJsYPEoY6Ley07clVVgkLO 6Am10h1QacmXlyErgQL5kYt 8hjE06XEsitRK3NKNllCQ7P HRleHQt IFHkf9QuuRclbcdjjK1eCNW inP3nSyI+R1rzGUZoH18quE oltG76PZ7zhUDbMjlxb7Lay d7AQMoQ PGFzrtNakWRand7cWTBolCJ sl412NK37KeRgUCrbi179MX 53dNvqKW6xCYJAK4KMUL7QH UFTIiBk IHsxGNWvsnEqX5R1pTopEIQ DT9N7YzZ5VJ5WMdPxGDCUY0 YoKaXrZo2BO6YXYMgPZpY9U kEiIGlk YMLaESNaOxxgW3GcKFT9UT0 4OEQiRWM5EJIdThFnSkJaBl T5EkE8St2BFMbWKXKoxeGcq DSago8j ZDYcbLIfg769MH85vPCrbYK oKEPhsC68SDOiUNEeVHJ9L6 1vyIMpvHS8rVB3EsVPWHOGL kVfTUVB HzVgCXB2RC81eNR0sWP7QxF 4MjAzMDIzNTAiIGlkPSJfZG R0A9NqYEEfEJzpFz59YQWdV DS8QHAg CjZ8NUClPDayQvSzJxX7sOl mvdfiCJ2kXEtgWS6pS1StP2 SfMS73YOCuh30kWzKvjlZ6b HRhdGlv efKjo7AbtODbqfraTXr1Rrw LFMg7J1Vrie3ECZmQWK6pbK Y+TgmPSKt9VUo4SQXvHEXeH SJkZHNl I9Ikl20bFKCqQRWiUTArUOP yQUAhXOywu8YulVSaYAI1LW q6MZJhphXqs7VxMgrkKuGiA DpzZWN0 mY4pM12lRW1yLE4RKiCeXST aUhJyDkSbeUP8Fx11DtvnOd RjBx8vQBMdZZTcJfWhSVC5H N92Bkeo TpOnMFB9ZXFuQIJ0oMtzVGR lFYPnbF9pVzK5aYn1Xm70k5 JwrxJsdNZxcn1kRZBfZXH4r P8yVVht cGxheSI+BOZkWY6yx2F1vKM 0SoRiskQby8KoC7p9VoOmp1 cyTkR0LGg3PMBpV04bOMUrn 246IHVu ZGVybGluZTsiPkhQSSBTdGF nQtuuk6Rvuc97A6TsGM2+Cg tMEXe4OBw9YVZpGCCsSRBhW GVtcmNv bnRlbnQiIGRkOmNvbnRlbnR 8dMZfSNXZWTWEKWEFM20MBZ HeVOQoOsBnQeBqGK2gNQS5s ST7KpV1 GXIJWVQnHBq4DRSzDVP5Ie4 XTaNmNGDXPGUCVcobKSS6Zj VzpNG4Bb28FDO7ZPL1OF2yF IM3TZOz CowfYZZtUr26Gnq7WHxeBmy aDrOnQhnRMVi0OZe9DHMwBF NzPSJkZGVtcmNvbnRlbnRpd GVtIGRk twSua5DtPfbaOpCbTNqxaO4 twE5auJetB7P0nKweAVQ3q3 AtcmlnaHQiIGRkOmNvbnRlb hY4eRQl EYJWATDQWXXHM49APDZeDZL qLzGcdXw6jAioWUPuOFxmRT UsA2J3MDUaFGzfLrY3XQ73M zZjLTll KUWcBZvkDTz4HZR1QIMmBqZ 3qIhiaffzJV4eWIvdAJ8eG2 EdH0PlKD35EDFjd13sZdwzF Xa5KsaK KWkBQUDkglBffOVvbq4vWFA rmXVfz849CA93aKBusPGaNX DgnD56UQQkWQDlFVE4TmZoL mxvYXRp zanyoAyfRO0tzR9rUHSeR6n 6WrWoOQjsd433YR52sBkoJW 4xHRWSC1ASXY8YZUMNAnLhN DplbnRp dVdzEF2rOgSeIK4jMavtEBL 7E8CxRYG1XNDdGODsPu77LV MdDSZ6SyJ0NXYsXDS7HnPvc W7kjaS0 EFV6RiK0svFykOQEd8O1lOW uhZQ1eG5uDv17G7Oojl5ABh pISFnycJVxP0zwp1B5YyNrD M1oZ83t dCKzkIi4LY0nSURtKM3kayT deXOsNUHbIlN4mdSww3J5jL 7es2N4bLL1ImGooK5yuTikk CIgZGQ6 Y35wmDJbqBV2iIG6XiFPWMU BKiHvTDPYZySqOSK8AV88eJ M8jEZ7PtUggOV5Qk2wMYK8L NGrPU9i JJJaLVWoCDTyPXRkTp20AKC rWeM5CEJoJ7VwXFhvbK5eAk UyJNDWkL8vqQmyGD2hxS5jq nRhdGlv biI+ZF3ebAL+NrjIXTv1FEd 2IGNsYXNzPSJkZGVtcmNvbn YqvjXykYEwOYGtuqEht6IaV mxlIiBk IQtxsL2qcU9slZvbT1L9cQc oDPG5g1RtefyeuKTvIDLoKw SwpqQzobV5eWXuUTHZAHXFR ACDG08D OBBrPCBiHnGmuPn8gLwgJXH iIGlkPSJfYTIyNTZlYjAtZm L0EU82NrA5ESGzKBtkInPdF TNhYmMz LZR9PwY4tDosmujoKE9kOSd kHK6pT7HsZ6LhTZ15AVImb6 3fRijtQMj3WcrMIKqVRVImc iBjbGFz ac2bSBUsxLVut115SZ08kHA vpEQmOZKrkT28BAVnUQNwZW Q3UwLiIrdwAWAiigmpbEdxF W6wjS8d VFPpL7s8NmLxJXvtt794NS8 2gGkrLQ0rHGCQV3ZYYT9QBP TIZsUeRKdjmjKkvDvnBR6lP eVbBR2k XzZmYjRjMjFkLWEzYmQtNGQ 2TL5sUFGuGLVqIwyfIEP0JW QjHfWvwB5dddD3WGN1DyV0j mFtaWNE r0Y2aUZtgKB1jI7gLi58U9F msn1JSddDEShioXQiS8vyq5 W7FiUrTE1cF07yuETowNb7X T3oSLRn SH1cqnPdoZFaKZEfSpF8ssI vh0B3uY9nc4H8zZJ9QdUhqY 5ekPecnLFrUTM0R71omWGat CI2fCX7 IlBBVENBUkVfTUVBUyIgZGQ 1PQ86uLE9sHP1ZjQhxOO1Qa 9gCRXhNVP5OY9iC8IyPDIqA zQtYTll XG25SeymQYGvQll8QOKdRYo byN9gTmEkFGCZmA7dtAiqNS 4xlP9dkiGloApwywR+PC9ka XY+CgoJ LRq9SMm8PZQqHIRbPUFkZCC tcmNvbnRlbnRpdGVtIGRkcm Azd8MxJegyVwFjWFfshI7rk O3bbSxu R9Q0mOnzKEQ5p9TshshgvGS aGBEcMcWmrkQjzeA2eMUcEW UEPKMZTSMKL08IYAGtOMEtL mVudGl0 eWlkPSIiIGlkPSJfOTRiNzB dCUWlMJKxRZ95XLs4PNMpXJ RhMdSmWMDqQAH9RGHtUrZ0l Wxuczpk EW5dBXwnDB2uB7ZrN5RrGK8 7JPGym70bGuxdWPw7GqwQDT hEKGFckzHkwGXpya0yYPKnv UEtp377 BE20xPPcsCUhMBFnfS26IUH wREWfPQG4EbPpPgbbSWSuzi npwDptZK0gqZ5bJEAtP1a8R iBkZDpj a023ID75dCksUD3uTGXQR2N NQB9CRQZLUhLxTDpoogDblZ ncZB9rWmSiMK0yYlrsFRZ9N zZmLTE5 ZNvcZGSyNx9tOnWrJPC4JFx oDnddQwL8CDEkwK9gjjU4BB L6OrN9zqSdjLQVa4G9aOPti YO8qS0g Fa40V6Flma6UJybCZSuziBQ zH4cjc6Y1SvSoXB0vU69dpG GxzUp1XQ6aFUWmGJ3uudDyz GUiIGRk KaR9maTvt7X4mP8ps3S5iPD 5MtPtkX5wsSayjYUlSRC6E8 1kwRKwaFS3oYI3RkPJKDFUS kVfTUVB GsToLRE6VE29zTP1wRT6AvY xdTW8Tb80DMDfPGQjOR3xFH YwTJI2NZCyKXP3Xn3kIcDgU GH6MjCm HSmiQCprcD0aDuBuMKDMbF0 xwIiuEQ4irU1kreQvmCjuqv I+LH1sqCI+YnrSGWc7TNr6G GNsYXNz PSJkZGVtcmNvbnRlbnRpdGV aJYDzzdBuh6PsIcjrOwWfWZ ymrQ2kdL6xfOndU0H4gLzlW OA8a2Gr c (more content not included)... Normal [facility] Comment on above: Result Comment: Elec tronically Signed By: KEMAR EVANS, Lan Marshall.nydia\Date and Time Signed: 08/02/21 14:26 EDT Pre-Certification Formon Pre-Certification Form [id number]#1.00C D:127 Normal [facility] Ambulatory Clinical Summaryo n 07-30-2021 Ambulatory Clinical Summary {[id number] Normal [facility] XR ELBOW GENERAL 2V AP/LAT L Ton 07-26-2021 [facility] Physician Referralon 021 Physician Referral [id number] D:127 Normal [facility] CARDIAC STRESS/REST INJE CTIONon 05-25-2021 [facility] CARDIAC STRESS/REST INJECTION Patient Name: ELSA CATALAN STUDY: MYOCARDIAL PERFUSION STRESS TEST WITH LEXISCAN Performing facility: [facility], [address], [address], [place] [address] [facility] Provider: Sarina Bird DO, [facility] PCP: Dr. Anant Johnson Supervising provider: Sarina Palomino MD, [facility] INDICATION: Chest Pain; HISTORY: Gender: F; Age: 60 y/o ; Height: 0 cm; Weight: 62.1999828 kg. High Cholesterol; Diabetes; HTN; SOB; Denies smoking. COMPARISON: No comparison. ACCESSION NUMBER(S): [id number]; [id number]; [id number] ORDERING CLINICIAN: ASIM BIRD TECHNIQUE: ONE DAY [...] Electronically signed by: DAYANARA AYALA MD Normal [facility] ECG 12 lead ECGon 05-13-2021 ECG 12 lead ECG [facility] [place] [address] [place] [address] Electrocardiograph Report Signed Patient: Elsa Catalan MR#: [id number] 0 : 1960 Acct:[id number] Age/Sex: 60 / F ADM Date: 05/11/21 Loc: Room: [address] [place] [address] Type: ADM INOo Attending Dr: Obdulia Garcia [...] Electronically Signed By:NOEMY ZAMORA MD Transcribed By: [facility] Dictated By: Noemy Zamora MD 05/13/21 0923 Signed By: 05/13/21 1156 [facility] Glucose Poct Glucometerson 0 05-13-2021 Commemt1 Glu2: Cleaned Meter [facility] Comment on above: Result Comment: PERF ORMED BY: [place] [address] PATHOLOGIST PHARMACY COORDINATOR RAMYA NEVES M.D. Performed By: #### H S TROP, CMP, CBC, MG #### [place] [address] [place] Glucose [Mass/Vol] 149 mg/dL Normal [facility] Comment on above: Result Comment: [place] om Glucose Reference Range is dependent on time and content of last meal. Glucose of more than 200 mg/dL in a nonstressed, ambulatory subject supports the diagnosis of Diabetes Mellitus. Performed By: #### H S TROP, CMP, CBC, MG #### [address] Glucose [Mass/Vol] 89 mg/dL Normal [facility] Comment on above: Result Comment: [place] om Glucose Reference Range is dependent on time and content of last meal. Glucose of more than 200 mg/dL in a nonstressed, ambulatory subject supports the diagnosis of Diabetes Mellitus. PERFORMED BY: [place] [address] PATHOLOGIST PHARMACY COORDINATOR RAMYA NEVES M.D. Performed By: #### H S TROP, CMP, CBC, MG #### [address] Basic Metabolic Panelon 08- Calcium [Mass/Vol] 8.0 mg/dL Low 8.2-10.2 [facility] Comment on above: Performed By: #### B MP, MG, CBC #### [address] Chloride [Moles/Vol] 100 mmol/L Normal 95-114 [facility] Comment on above: Performed By: #### B MP, MG, CBC #### [address] CO2 [Moles/Vol] 19.9 mmol/L Low 22.0-30.0 [facility] Comment on above: Performed By: #### B MP, MG, CBC #### [address] Creatinine [Mass/Vol] 0.65 mg/dL Normal 0.44-1.03 [facility] Comment on above: Performed By: #### B MP, MG, CBC #### [address] Creatinine Clr Calc Pharmacy 85.09 Normal [facility] Comment on above: Performed By: #### B MP, MG, CBC #### [facility] [address] Estimated GFR ( [place] > 60 [facility] Comment on above: Result Comment: GFR estimated reference range: According to KDOQI guidelines, <60 ml/min/1.73m2 is sufficient to diagnose a patient with chronic kidney disease. Performed By: #### B MP, MG, CBC #### [facility] [address] Estimated GFR (Non- Am > 60 [facility] Comment on above: Performed By: #### B MP, MG, CBC #### [address] Glucose [Mass/Vol] 312 mg/dL High 70-100 [facility] Comment on above: Result Comment: [place] om Glucose Reference Range is dependent on time and content of last meal. Glucose of more than 200 mg/dL in a nonstressed, ambulatory subject supports the diagnosis of Diabetes Mellitus. ADA recommended reference range Performed By: #### B MP, MG, CBC #### [address] Potassium [Moles/Vol] 3.6 mmol/L Normal 3.5-5.1 [facility] Comment on above: Performed By: #### B MP, MG, CBC #### [facility] [address] [place] [address] [place] Sodium [Moles/Vol] 133 mmol/L Low 136-146 [facility] Comment on above: Performed By: #### B MP, MG, CBC #### [facility] [address] [place] [address] [place] Urea nitrogen [Mass/Vol] 16 mg/dL Normal 9-23 [facility] Comment on above: Performed By: #### B MP, MG, CBC #### [facility] [address] COVID-19 FRon 05-12-2021 SARS-CoV-2 (COVID-19) RNA ISAC+probe Ql (Unsp spec) Negative Normal Negative [facility] Comment on above: Order Comment: Healt hcare Worker?: N Result Comment: Testing for SARS-CoV-2 by RT-PCR This test was developed and its performance characteristics determined by [employer]) and validated at the [facility]. This test has not been FDA cleared [...] is terminated or revoked sooner. PERFORMED BY: [place] [address] PATHOLOGIST PHARMACY COORDINATOR RAMYA NEVES M.D. Performed By: #### H S TROP, CMP, CBC, MG #### [address] angio chest PE protocolon 05-12-2021 CT angio chest PE protocol [facility] [place] [address] [place] [address] CT Scan Report Signed Patient: Elsa Catalan MR#: [id number] 0 : 1960 Acct:[id number] Age/Sex: 60 / F ADM Date: 05/11/21 Loc: Room: [address] [place] [address] Type: ADM INOo Attending Dr: Obdulia Garcia [...] Matt Beckham M.D.05/12/2021 1:40 PM Dictation Location: [place] [address] Transcribed By: [facility] 05/12/21 1340 Dictated By: Matt Beckham DO 05/12/21 1333 Signed By: 05/12/21 1340 Normal [facility] Complete Blood Count Auto Di ffon 05-12-2021 Basophils (Bld) [#/Vol] 0.0 10*3/uL Normal 0.0-0.2 [facility] Comment on above: Result Comment: PERF ORMED BY: [place] [address] PATHOLOGIST PHARMACY COORDINATOR RAMYA NEVES M.D. Performed By: #### B MP, MG, CBC #### [facility] [address] [place] [address] [place] Basophils/100 WBC (Bld) 0.4 % Normal . [facility] Comment on above: Performed By: #### B MP, MG, CBC #### [facility] [address] [place] [address] Eosinophils (Bld) [#/Vol] 0.0 10*3/uL Normal 0.0-0.45 [facility] Comment on above: Performed By: #### B MP, MG, CBC #### [facility] [address] [place] [address] [place] Eosinophils/100 WBC (Bld) 0.0 % Normal . [facility] Comment on above: Performed By: #### B MP, MG, CBC #### [facility] [address] Erythrocyte distribution width (RBC) [Ratio] 16.3 % High 11.9-15.3 [facility] Comment on above: Performed By: #### B MP, MG, CBC #### [address] Hematocrit (Bld) [Volume fraction] 36.4 % Normal 34.0-46.4 [facility] Comment on above: Performed By: #### B MP, MG, CBC #### [address] Hemoglobin (Bld) [Mass/Vol] 12.1 g/dL Normal 11.8-15.4 [facility] Comment on above: Performed By: #### B MP, MG, CBC #### [address] Lymphocytes (Bld) [#/Vol] 2.0 10*3/uL Normal 1.00-4.8 [facility] Comment on above: Performed By: #### B MP, MG, CBC #### [place] [address] [place] Lymphocytes/100 WBC (Bld) 16.8 % Normal . [facility] Comment on above: Performed By: #### B MP, MG, CBC #### [place] [address] [place] MCH (RBC) [Entitic mass] 30.1 pg Normal 24.7-34.3 [facility] Comment on above: Performed By: #### B MP, MG, CBC #### [facility] [address] [place] [address] MCV (RBC) [Entitic vol] 90.7 fL Normal 80-100 [facility] Comment on above: Performed By: #### B MP, MG, CBC #### [facility] [address] Mean Corpuscular HGB Conc 33.2 g/dL Normal 32.0-35.0 [facility] Comment on above: Performed By: #### B MP, MG, CBC #### [facility] [address] Monocytes (Bld) [#/Vol] 0.8 10*3/uL Normal 0.0-0.8 [facility] Comment on above: Performed By: #### B MP, MG, CBC #### [facility] [address] Monocytes/100 WBC (Bld) 6.8 % Normal . [facility] Comment on above: Performed By: #### B MP, MG, CBC #### [facility] [address] Neutrophils (Bld) [#/Vol] 8.9 10*3/uL High 1.8-7.7 [facility] Comment on above: Performed By: #### B MP, MG, CBC #### [facility] [address] [place] [address] Neutrophils/100 WBC (Bld) 76.0 % Normal . [facility] Comment on above: Performed By: #### B MP, MG, CBC #### [facility] [address] [place] [address] [place] Nucleated RBC/100 WBC (Bld) [Ratio] 0.0 % Normal 0-0.5 [facility] Comment on above: Performed By: #### B MP, MG, CBC #### [facility] [address] Platelet mean volume (Bld) [Entitic vol] 7.5 fL Normal 6.3-10.7 [facility] Comment on above: Performed By: #### B MP, MG, CBC #### [facility] [address] [place] [address] [place] Platelets (Bld) [#/Vol] 372 10*3/uL Normal 150-450 [facility] Comment on above: Performed By: #### B MP, MG, CBC #### [address] RBC (Bld) [#/Vol] 4.01 10*6/uL Normal 3.60-5.00 [facility] Comment on above: Performed By: #### B MP, MG, CBC #### [address] WBC (Bld) [#/Vol] 11.7 10*3/uL High 4.5-11.0 [facility] Comment on above: Performed By: #### B MP, MG, CBC #### [address] Basophils (Bld) [#/Vol] 0.1 10*3/uL Normal 0.0-0.2 [facility] Comment on above: Result Comment: PERF ORMED BY: [place] [address] PATHOLOGIST PHARMACY COORDINATOR RAMYA NEVES M.D. Performed By: #### H S TROP, CMP, CBC, MG #### [address] Basophils/100 WBC (Bld) 0.8 % Normal . [facility] Comment on above: Performed By: #### H S TROP, CMP, CBC, MG #### [address] Eosinophils (Bld) [#/Vol] 0.0 10*3/uL Normal 0.0-0.45 [facility] Comment on above: Performed By: #### H S TROP, CMP, CBC, MG #### [address] Eosinophils/100 WBC (Bld) 0.0 % Normal . [facility] Comment on above: Performed By: #### H S TROP, CMP, CBC, MG #### [address] Erythrocyte distribution width (RBC) [Ratio] 16.7 % High 11.9-15.3 [facility] Comment on above: Performed By: #### H S TROP, CMP, CBC, MG #### [address] Hematocrit (Bld) [Volume fraction] 36.7 % Normal 34.0-46.4 [facility] Comment on above: Performed By: #### H S TROP, CMP, CBC, MG #### [address] Hemoglobin (Bld) [Mass/Vol] 12.1 g/dL Normal 11.8-15.4 [facility] Comment on above: Performed By: #### H S TROP, CMP, CBC, MG #### [address] Lymphocytes (Bld) [#/Vol] 1.0 10*3/uL Normal 1.00-4.8 [facility] Comment on above: Performed By: #### H S TROP, CMP, CBC, MG #### [address] Lymphocytes/100 WBC (Bld) 9.3 % Normal . [facility] Comment on above: Performed By: #### H S TROP, CMP, CBC, MG #### [address] MCH (RBC) [Entitic mass] 30.5 pg Normal 24.7-34.3 [facility] Comment on above: Performed By: #### H S TROP, CMP, CBC, MG #### [address] MCV (RBC) [Entitic vol] 92.2 fL Normal 80-100 [facility] Comment on above: Performed By: #### H S TROP, CMP, CBC, MG #### [address] Mean Corpuscular HGB Conc 33.1 g/dL Normal 32.0-35.0 [facility] Comment on above: Performed By: #### H S TROP, CMP, CBC, MG #### [facility] [address] [place] [address] Monocytes (Bld) [#/Vol] 0.1 10*3/uL Normal 0.0-0.8 [facility] Comment on above: Performed By: #### H S TROP, CMP, CBC, MG #### [facility] [address] [place] [address] Monocytes/100 WBC (Bld) 1.1 % Normal . [facility] Comment on above: Performed By: #### H S TROP, CMP, CBC, MG #### [address] Neutrophils (Bld) [#/Vol] 9.6 10*3/uL High 1.8-7.7 [facility] Comment on above: Performed By: #### H S TROP, CMP, CBC, MG #### [address] Neutrophils/100 WBC (Bld) 88.8 % Normal . [facility] Comment on above: Performed By: #### H S TROP, CMP, CBC, MG #### [address] Nucleated RBC/100 WBC (Bld) [Ratio] 0.0 % Normal 0-0.5 [facility] Comment on above: Performed By: #### H S TROP, CMP, CBC, MG #### [address] Platelet mean volume (Bld) [Entitic vol] 7.7 fL Normal 6.3-10.7 [facility] Comment on above: Performed By: #### H S TROP, CMP, CBC, MG #### [facility] [address] [place] [address] Platelets (Bld) [#/Vol] 358 10*3/uL Normal 150-450 [facility] Comment on above: Performed By: #### H S TROP, CMP, CBC, MG #### [address] RBC (Bld) [#/Vol] 3.98 10*6/uL Normal 3.60-5.00 [facility] Comment on above: Performed By: #### H S TROP, CMP, CBC, MG #### [facility] [address] WBC (Bld) [#/Vol] 10.8 10*3/uL Normal 4.5-11.0 [facility] Comment on above: Performed By: #### H S TROP, CMP, CBC, MG #### [facility] [address] [place] [address] Comprehensive Metabolic Pane le 05-12-2021 Albumin [Mass/Vol] 3.2 g/dL Normal 3.2-5.5 [facility] Comment on above: Performed By: #### H S TROP, CMP, CBC, MG #### [facility] [address] [place] [address] Albumin/Globulin [Mass ratio] 0.7 {ratio} Normal [facility] Comment on above: Performed By: #### H S TROP, CMP, CBC, MG #### [facility] [address] [place] [address] ALP [Catalytic activity/Vol] 69 U/L Normal 32-92 [facility] Comment on above: Performed By: #### H S TROP, CMP, CBC, MG #### [facility] [address] [place] [address] ALT [Catalytic activity/Vol] 21 U/L Normal 10-60 [facility] Comment on above: Performed By: #### H S TROP, CMP, CBC, MG #### [facility] [address] [place] [address] AST [Catalytic activity/Vol] 20 U/L Normal 10-42 [facility] Comment on above: Performed By: #### H S TROP, CMP, CBC, MG #### [facility] [address] [place] [address] Bilirubin [Mass/Vol] 0.6 mg/dL Normal 0.3-1.2 [facility] Comment on above: Performed By: #### H S TROP, CMP, CBC, MG #### [facility] [address] [place] [address] Calcium [Mass/Vol] 8.1 mg/dL Low 8.2-10.2 [facility] Comment on above: Performed By: #### H S TROP, CMP, CBC, MG #### [facility] [address] [place] [address] Chloride [Moles/Vol] 100 mmol/L Normal 95-114 [facility] Comment on above: Performed By: #### H S TROP, CMP, CBC, MG #### [address] CO2 [Moles/Vol] 17.0 mmol/L Low 22.0-30.0 [facility] Comment on above: Performed By: #### H S TROP, CMP, CBC, MG #### [address] Creatinine [Mass/Vol] 0.73 mg/dL Normal 0.44-1.03 [facility] Comment on above: Performed By: #### H S TROP, CMP, CBC, MG #### [address] Creatinine Clr Calc Pharmacy 75.76 [facility] Comment on above: Performed By: #### H S TROP, CMP, CBC, MG #### [facility] [address] [place] [address] Estimated GFR ( [place] > 60 [facility] Comment on above: Result Comment: GFR estimated reference range: According to KDOQI guidelines, <60 ml/min/1.73m2 is sufficient to diagnose a patient with chronic kidney disease. Performed By: #### H S TROP, CMP, CBC, MG #### [address] Estimated GFR (Non- Am > 60 [facility] Comment on above: Performed By: #### H S TROP, CMP, CBC, MG #### [address] Globulin (S) [Mass/Vol] 4.5 g/dL Normal [facility] Comment on above: Performed By: #### H S TROP, CMP, CBC, MG #### [address] Glucose [Mass/Vol] 407 mg/dL High 70-100 [facility] Comment on above: Result Comment: [facility] Glucose Reference Range is dependent on time and content of last meal. Glucose of more than 200 mg/dL in a nonstressed, ambulatory subject supports the diagnosis of Diabetes Mellitus. ADA recommended reference range Performed By: #### H S TROP, CMP, CBC, MG #### [address] Potassium [Moles/Vol] 3.7 mmol/L Normal 3.5-5.1 [facility] Comment on above: Performed By: #### H S TROP, CMP, CBC, MG #### [address] Protein [Mass/Vol] 7.7 g/dL Normal 6.1-7.9 [facility] Comment on above: Performed By: #### H S TROP, CMP, CBC, MG #### [address] Sodium [Moles/Vol] 132 mmol/L Low 136-146 [facility] Comment on above: Performed By: #### H S TROP, CMP, CBC, MG #### [address] Urea nitrogen [Mass/Vol] 17 mg/dL Normal 9-23 [facility] Comment on above: Performed By: #### H S TROP, CMP, CBC, MG #### [address] ECG 12 lead ECGon 05-12-2021 ECG 12 lead ECG [facility] [place] [address] [place] [address] Electrocardiograph Report Signed Patient: Elsa Catalan MR#: [id number] 0 : 1960 Acct:[id number] Age/Sex: 60 / F ADM Date: 05/11/21 Loc: 3T Room: [address] [place] [address] Type: ADM INOo Attending Dr: Obdulia Garcia [...] 05/12/21 0846 Signed By: 05/12/21 190 Normal [facility] ECG 12 lead ECG [facility] [address] Electrocardiograph Report Signed Patient: Elsa Catalan MR#: [id number] 0 : 1960 Acct:[id number] Age/Sex: 60 / F ADM Date: 05/11/21 Loc: Room: [address] [place] [address] Type: ADM INOo Attending Dr: Obdulia Garcia [...] AM Referred By: Electronically Signed By:LAN CANALES DO [facility] Transcribed By: THIAGO Dictated By: Lan Canales DO 05/11/21 2247 Signed By: 05/12/21 1051 [facility] echo transthoracicon [facility] echo transthoracic [facility] [place] [address] Echocardiogram Signed Patient: Elsa Catalan MR#: [id number] 0 : 1960 Acct:[id number] Age/Sex: 60 / F ADM Date: 05/11/21 Loc: Room: [address] [place] [address] Type: ADM INOo Attending Dr: Obdulia Garcia MD Ordering Provider: Geri Angel MD Date of Service: 05/11/21 [facility] echo transthoracic: CP Copies to: MD [...] DO 05/12/21 1020 Signed By: 05/12/21 1203 Normal [facility] Glucose Poct Glucometerson 0 05-12-2021 Glucose [Mass/Vol] 188 mg/dL Normal [facility] Comment on above: Result Comment: [place] Glucose Reference Range is dependent on time and content of last meal. Glucose of more than 200 mg/dL in a nonstressed, ambulatory subject supports the diagnosis of Diabetes Mellitus. PERFORMED BY: [place] [address] PATHOLOGIST PHARMACY COORDINATOR RAMYA NEVES M.D. Performed By: #### H S TROP, CMP, CBC, MG #### [address] Commemt1 Glu2: Cleaned Meter Normal [facility] Comment on above: Result Comment: PERF ORMED BY: [place] [address] PATHOLOGIST PHARMACY COORDINATOR RAMYA NEVES M.D. Performed By: #### H S TROP, CMP, CBC, MG #### [address] Glucose [Mass/Vol] 138 mg/dL [facility] Comment on above: Result Comment: [place] om Glucose Reference Range is dependent on time and content of last meal. Glucose of more than 200 mg/dL in a nonstressed, ambulatory subject supports the diagnosis of Diabetes Mellitus. Performed By: #### H S TROP, CMP, CBC, MG #### [address] Commemt1 [facility] Comment on above: Result Comment: Glu2 : Will Repeat Test Performed By: #### H S TROP, CMP, CBC, MG #### [address] Commemt2 WILL NOTIFY DR/RN [facility] Comment on above: Performed By: #### H S TROP, CMP, CBC, MG #### [address] Commemt3 Cleaned Meter [facility] Comment on above: Result Comment: PERF ORMED BY: [place] [address] PATHOLOGIST PHARMACY COORDINATOR RAMYA NEVES M.D. Performed By: #### H S TROP, CMP, CBC, MG #### [address] Glucose [Mass/Vol] 400 mg/dL Off scale high [facility] Comment on above: Result Comment: [place] om Glucose Reference Range is dependent on time and content of last meal. Glucose of more than 200 mg/dL in a nonstressed, ambulatory subject supports the diagnosis of Diabetes Mellitus. Performed By: #### H S TROP, CMP, CBC, MG #### [facility] [address] [place] [address] Commemt1 Glu2: Cleaned Meter Normal [facility] Comment on above: Performed By: #### H S TROP, CMP, CBC, MG #### [address] Commemt2 Will Repeat Test Normal [facility] Comment on above: Performed By: #### H S TROP, CMP, CBC, MG #### [address] Commemt3 WILL NOTIFY DR/RN Normal [facility] Comment on above: Result Comment: PERF ORMED BY: [place] [address] PATHOLOGIST PHARMACY COORDINATOR RAMYA NEVES M.D. Performed By: #### H S TROP, CMP, CBC, MG #### [address] Glucose [Mass/Vol] 415 mg/dL Off scale [facility] Comment on above: Result Comment: [facility] Glucose Reference Range is dependent on time and content of last meal. Glucose of more than 200 mg/dL in a nonstressed, ambulatory subject supports the diagnosis of Diabetes Mellitus. Performed By: #### H S TROP, CMP, CBC, MG #### [address] Magnesiumon 05-12-2021 Magnesium [Mass/Vol] 1.7 mg/dL Normal 1.6-2.6 [facility] [facility] Comment on above: Result Comment: PERF ORMED BY: [place] [address] PATHOLOGIST PHARMACY COORDINATOR RAMYA NEVES M.D. Performed By: #### B MP, MG, CBC #### [address] Magnesium [Mass/Vol] 1.7 mg/dL Normal 1.6-2.6 [facility] Comment on above: Result Comment: PERF ORMED BY: [place] [address] PATHOLOGIST PHARMACY COORDINATOR RAMYA NEVES M.D. Performed By: #### H S TROP, CMP, CBC, MG #### [facility] [address] [place] [address] Troponin I High Sensitivityo n 05-12-2021 Troponin I High Sensitivity 247 pg/mL Off scale high 0-15 [facility] Comment on above: Result Comment: PERF ORMED BY: [place] [address] PATHOLOGIST PHARMACY COORDINATOR RAMYA NEVES M.D. Performed By: #### H S TROP #### [facility] [address] [place] [address] [place] Troponin I High Sensitivity 220 pg/mL Off scale high 0-15 [facility] Comment on above: Result Comment: PERF ORMED BY: [place] [address] PATHOLOGIST PHARMACY COORDINATOR RAMYA NEVES M.D. Performed By: #### H S TROP #### [address] Troponin I High Sensitivity 237 pg/mL Off scale high 0-15 [facility] Comment on above: Result Comment: Resu lts called at 0131 on 05/12/21 PERFORMED BY: [place] [address] PATHOLOGIST PHARMACY COORDINATOR RAMYA NEVES M.D. Performed By: #### H S TROP, CMP, CBC, MG #### [facility] [address] [place], [place] [id number] [facility] XR chest 1V portableon 05-12 XR chest 1V portable [facility] [place] [address] [place] [address] XRay Report Signed Patient: Elsa Catalan MR#: [id number] 0 : 1960 Acct:[id number] Age/Sex: 60 / F ADM Date: 05/11/21 Loc: Room: [address] [place] [address] Type: ADM IN Attending Dr: Obdulia Garcia [...] Adrienne Fermin M.D.05/12/2021 9:29 AM Dictation Location: [facility] Transcribed By: [facility] 05/12/21928 Dictated By: Adrienne Fermin MD 05/12/21927 Signed By: 05/12/21928 Normal [facility] XR lumbar spine 6V w bending on 11-27-2020 XR lumbar spine 6V w bending [facility] [address] XRay Report Signed Patient: Elsa Catalan MR#: [id number] 0 : 1960 Acct:[id number] Age/Sex: 60 / F ADM Date: 11/27/20 Loc: [place] Room: Type: [facility] Attending Dr: Sam Rothman MD Ordering Provider: Sam Rothman MD Date of Service: 11/27/20 XR/XR lumbar spine 6V w bending: Radiculopathy, lumbar region Copies to: Sam Rothman MD CLINICAL INFORMATION: Low back pain radiating down to the right leg for years. No known injury. LUMBAR SPINE WITH FLEXION AND EXTENSION AND LATERAL BENDING: COMPARISON: 10/19/2020 from [facility] FINDINGS: Standing AP, lateral, flexion, extension, with [...] Felipe Watson M.D.11/27/2020 11:48 AM Dictation Location: [place] [address] Transcribed By: TARA 11/27/20 1148 Dictated By: Felipe Watson MD 11/27/20 1139 Signed By: 11/27/20 1148 [facility] POC Glucoseon 04-08-2020 Glucose [Mass/Vol] 139 mg/dL High 65 - 99 mg/dL [facility] Interpretation and review of laboratory results Abnormal [facility] Glucose [Mass/Vol] 77 mg/dL 65 - 99 mg/dL [facility] Interpretation and review of laboratory results Normal [facility] Glucose [Mass/Vol] 83 mg/dL 65 - 99 mg/dL [facility] Interpretation and review of laboratory results Normal [facility] SCAN OTHER ORDERSon 04-08-20 20 Ordered by an unspecified provider. [facility] Basic Metabolic Panelon 10-02 Anion gap [Moles/Vol] 19 mmol/L 10 - 20 mmol/L [facility] Calcium [Mass/Vol] 8.1 mg/dL Low 8.4 - 10. 2 mg/dL [facility] Chloride [Moles/Vol] 96 mmol/L Low 98 - 108 mmol/L [facility] Creatinine [Mass/Vol] 0.71 mg/dL 0.4 - 1.1 mg/dL [facility] GFR/1.73 sq M predicted among non-blacks MDRD (S/P/Bld) [Vol rate/Area] The eGFR should be used for monitoring renal function only and not for medication dosing. [facility] GFR/1.73 sq M.predicted CKD-EPI (S/P/Bld) [Vol rate/Area] 93 >=60 mL/min/1.73 m2 [facility] Glucose [Mass/Vol] 206 mg/dL High 65 - 99 mg/dL [facility] HCO3 [Moles/Vol] 23 mmol/L 21 - 32 mmol/L [facility] Interpretation and review of laboratory results Abnormal [facility] Potassium [Moles/Vol] 3.3 mmol/L Low 3.5 - 5.1 mmol/L [facility] Sodium [Moles/Vol] 135 mmol/L 135 - 145 mmol/L [facility] Urea nitrogen [Mass/Vol] 18 mg/dL 8 - 25 mg/dL [facility] Urea nitrogen/Creatinine [Mass ratio] 25.4 mg/mg High [facility] CBC WITH AUTO DIFFERENTIALon 10-14-2019 Basophils (Bld) [#/Vol] 0.04 10*3/uL [facility] Basophils/100 WBC (Bld) 0.5 % [facility] Eosinophils (Bld) [#/Vol] 0.00 10*3/uL [facility] Eosinophils/100 WBC (Bld) 0.0 % [facility] Erythrocyte distribution width (RBC) [Entitic vol] 14.0 % 11.6 - 14.8 % [facility] Hematocrit (Bld) [Volume fraction] 33.6 % Low 36 - 46 % [facility] Hemoglobin (Bld) [Mass/Vol] 11.1 g/dL Low 12 - 16 g/dL [facility] Immature granulocytes (Bld) [#/Vol] 0.01 10*3/uL [facility] Immature granulocytes/100 WBC (Bld) 0.10 % [facility] Comment on above: The IG parameter is the percentage of metamyelocytes, myelocytes, and promyelocytes. Interpretation and review of laboratory results Abnormal [facility] Lymphocytes (Bld) [#/Vol] 2.22 10*3/uL [facility] Lymphocytes/100 WBC (Bld) 28.2 % [facility] MCH (RBC) [Entitic mass] 29.3 pg 26 - 34 pg [facility] MCHC (RBC) [Mass/Vol] 33.0 g/dL 31 - 37 g/dL [facility] MCV (RBC) [Entitic vol] 88.7 fL 80 - 100 fL [facility] Monocytes (Bld) [#/Vol] 0.57 10*3/uL [facility] Monocytes/100 WBC (Bld) 7.2 % [facility] Neutrophils (Bld) [#/Vol] 5.04 10*3/uL [facility] Neutrophils/100 WBC (Bld) 64.0 % [facility] Nucleated RBC (Bld) [#/Vol] 0.00 10*3/uL [facility] Nucleated RBC/100 WBC (Bld) [Ratio] 0.0 % [facility] Platelet mean volume (Bld) [Entitic vol] 9.2 fL 9 - 15.5 fL [facility] Platelets (Bld) [#/Vol] 390 10*3/uL [facility] RBC (Bld) [#/Vol] 3.79 10*6/uL Low [facility] WBC (Bld) [#/Vol] 7.88 10*3/uL [facility] POC Glucoseon 10-14-2019 Glucose [Mass/Vol] 116 mg/dL High 65 - 99 mg/dL [facility] Interpretation and review of laboratory results Abnormal [facility] Glucose [Mass/Vol] 142 mg/dL High 65 - 99 mg/dL [facility] Interpretation and review of laboratory results Abnormal [facility] POC Glucoseon 10-13-2019 Glucose [Mass/Vol] 232 mg/dL High 65 - 99 mg/dL [facility] Interpretation and review of laboratory results Abnormal [facility] Glucose [Mass/Vol] 317 mg/dL High 65 - 99 mg/dL [facility] Interpretation and review of laboratory results Abnormal [facility] Glucose [Mass/Vol] 289 mg/dL High 65 - 99 mg/dL [facility] Interpretation and review of laboratory results Abnormal [facility] Glucose [Mass/Vol] 96 mg/dL 65 - 99 mg/dL [facility] Interpretation and review of laboratory results Normal [facility] CBC WITH AUTO DIFFERENTIALon 10-12-2019 Basophils (Bld) [#/Vol] 0.09 10*3/uL [facility] Basophils/100 WBC (Bld) 1.1 % [facility] Eosinophils (Bld) [#/Vol] 0.36 10*3/uL [facility] Eosinophils/100 WBC (Bld) 4.4 % [facility] Erythrocyte distribution width (RBC) [Entitic vol] 13.9 % 11.6 - 14.8 % [facility] Hematocrit (Bld) [Volume fraction] 34.6 % Low 36 - 46 % [facility] Hemoglobin (Bld) [Mass/Vol] 11.7 g/dL Low 12 - 16 g/dL [facility] Immature granulocytes (Bld) [#/Vol] 0.01 10*3/uL [facility] Immature granulocytes/100 WBC (Bld) 0.10 % [facility] Comment on above: The IG parameter is the percentage of metamyelocytes, myelocytes, and promyelocytes. Interpretation and review of laboratory results Abnormal [facility] Lymphocytes (Bld) [#/Vol] 2.96 10*3/uL [facility] Lymphocytes/100 WBC (Bld) 36.6 % [facility] MCH (RBC) [Entitic mass] 29.8 pg 26 - 34 pg [facility] MCHC (RBC) [Mass/Vol] 33.8 g/dL 31 - 37 g/dL [facility] MCV (RBC) [Entitic vol] 88.3 fL 80 - 100 fL [facility] Monocytes (Bld) [#/Vol] 0.72 10*3/uL [facility] Monocytes/100 WBC (Bld) 8.9 % [facility] Neutrophils (Bld) [#/Vol] 3.95 10*3/uL [facility] Neutrophils/100 WBC (Bld) 48.9 % [facility] Nucleated RBC (Bld) [#/Vol] 0.00 10*3/uL [facility] Nucleated RBC/100 WBC (Bld) [Ratio] 0.0 % [facility] Platelet mean volume (Bld) [Entitic vol] 9.3 fL 9 - 15.5 fL [facility] Platelets (Bld) [#/Vol] 378 10*3/uL [facility] RBC (Bld) [#/Vol] 3.92 10*6/uL Low [facility] WBC (Bld) [#/Vol] 8.09 10*3/uL [facility] Comprehensive Metabolic Pane le 10-12-2019 Albumin [Mass/Vol] 3.8 g/dL 3.2 - 5.2 g/dL [facility] ALP [Catalytic activity/Vol] 90 U/L 40 - 150 U/L [facility] ALT [Catalytic activity/Vol] 13 U/L 0 - 40 U/L [facility] Anion gap [Moles/Vol] 20 mmol/L 10 - 20 mmol/L [facility] AST [Catalytic activity/Vol] 19 U/L 0 - 45 U/L [facility] Bilirubin [Mass/Vol] 0.2 mg/dL 0 - 1.3 mg/dL [facility] Calcium [Mass/Vol] 9.2 mg/dL 8.4 - 10. 2 mg/dL [facility] Chloride [Moles/Vol] 97 mmol/L Low 98 - 108 mmol/L [facility] Creatinine [Mass/Vol] 0.84 mg/dL 0.4 - 1.1 mg/dL [facility] GFR/1.73 sq M predicted among non-blacks MDRD (S/P/Bld) [Vol rate/Area] The eGFR should be used for monitoring renal function only and not for medication dosing. [facility] GFR/1.73 sq M.predicted CKD-EPI (S/P/Bld) [Vol rate/Area] 76 >=60 mL/min/1.73 m2 [facility] Glucose [Mass/Vol] 240 mg/dL High 65 - 99 mg/dL [facility] HCO3 [Moles/Vol] 26 mmol/L 21 - 32 mmol/L [facility] Interpretation and review of laboratory results Abnormal [facility] Potassium [Moles/Vol] 3.7 mmol/L 3.5 - 5.1 mmol/L [facility] Protein [Mass/Vol] 8.7 g/dL High 6 - 8 g/dL [facility] Sodium [Moles/Vol] 139 mmol/L 135 - 145 mmol/L [facility] Urea nitrogen [Mass/Vol] 14 mg/dL 8 - 25 mg/dL [facility] Urea nitrogen/Creatinine [Mass ratio] 16.7 mg/mg [facility] POC Glucoseon 10-12-2019 Glucose [Mass/Vol] 195 mg/dL High 65 - 99 mg/dL [facility] Interpretation and review of laboratory results Abnormal [facility] Glucose [Mass/Vol] 130 mg/dL High 65 - 99 mg/dL [facility] Interpretation and review of laboratory results Abnormal [facility] PT/INRon 10-12-2019 INR Coag (PPP) [Relative time] 1.0 {INR} [facility] Interpretation and review of laboratory results Normal [facility] PT Coag (PPP) [Time] 12.7 s [facility] During the induction phase of oral anticoagulation, the INR may not reflect the anticoagulation status of the patient. Therapeutic ranges for INR's are: Most clinical situations: INR 2.0-3.0 Mechanical Prosthetic Valve: INR 2.5-3.5 Critical: INR >5.0 [facility] DEBRIDEMENTon 10-08-2019 Rose Mendoza CNP 10/08/2019 2:14 PM Wound Care Debridement Timeout: Verbal Consent obtained?: Yes Written Consent obtained?: Yes Consent given by: Patient Immediately prior to procedure a time out was called to verify the correct patient, procedure, equipment, support manager and site/side marked as required Timeout performed: [...] tolerated well (...................... ....................... ....................... ...... ...............) [facility] Basic Metabolic Panelon 12-0 Anion gap [Moles/Vol] 17 mmol/L 10 - 20 mmol/L [facility] Calcium [Mass/Vol] 7.9 mg/dL Low 8.4 - 10. 2 mg/dL [facility] Chloride [Moles/Vol] 101 mmol/L 98 - 108 mmol/L [facility] Creatinine [Mass/Vol] 0.68 mg/dL 0.4 - 1.1 mg/dL [facility] GFR/1.73 sq M predicted among non-blacks MDRD (S/P/Bld) [Vol rate/Area] The eGFR should be used for monitoring renal function only and not for medication dosing. [facility] GFR/1.73 sq M.predicted CKD-EPI (S/P/Bld) [Vol rate/Area] 95 >=60 mL/min/1.73 m2 [facility] Glucose [Mass/Vol] 143 mg/dL High 65 - 99 mg/dL [facility] HCO3 [Moles/Vol] 23 mmol/L 21 - 32 mmol/L [facility] Interpretation and review of laboratory results Abnormal [facility] Potassium [Moles/Vol] 3.4 mmol/L Low 3.5 - 5.1 mmol/L [facility] Sodium [Moles/Vol] 138 mmol/L 135 - 145 mmol/L [facility] Urea nitrogen [Mass/Vol] 17 mg/dL 8 - 25 mg/dL [facility] Urea nitrogen/Creatinine [Mass ratio] 25.0 mg/mg High [facility] CBC WITH AUTO DIFFERENTIALon 09-05-2019 Basophils (Bld) [#/Vol] 0.07 10*3/uL [facility] Basophils/100 WBC (Bld) 0.7 % [facility] Eosinophils (Bld) [#/Vol] 0.06 10*3/uL [facility] Eosinophils/100 WBC (Bld) 0.6 % [facility] Erythrocyte distribution width (RBC) [Entitic vol] 14.0 % 11.6 - 14.8 % [facility] Hematocrit (Bld) [Volume fraction] 33.6 % Low 36 - 46 % [facility] Hemoglobin (Bld) [Mass/Vol] 11.0 g/dL Low 12 - 16 g/dL [facility] Immature granulocytes (Bld) [#/Vol] 0.02 10*3/uL [facility] Immature granulocytes/100 WBC (Bld) 0.20 % [facility] Comment on above: The IG parameter is the percentage of metamyelocytes, myelocytes, and promyelocytes. Interpretation and review of laboratory results Abnormal [facility] Lymphocytes (Bld) [#/Vol] 2.50 10*3/uL [facility] Lymphocytes/100 WBC (Bld) 25.6 % [facility] MCH (RBC) [Entitic mass] 29.2 pg 26 - 34 pg [facility] MCHC (RBC) [Mass/Vol] 32.7 g/dL 31 - 37 g/dL [facility] MCV (RBC) [Entitic vol] 89.1 fL 80 - 100 fL [facility] Monocytes (Bld) [#/Vol] 1.19 10*3/uL High [facility] Monocytes/100 WBC (Bld) 12.2 % [facility] Neutrophils (Bld) [#/Vol] 5.92 10*3/uL [facility] Neutrophils/100 WBC (Bld) 60.7 % [facility] Nucleated RBC (Bld) [#/Vol] 0.00 10*3/uL [facility] Nucleated RBC/100 WBC (Bld) [Ratio] 0.0 % [facility] Platelet mean volume (Bld) [Entitic vol] 9.1 fL 9 - 15.5 fL [facility] Platelets (Bld) [#/Vol] 311 10*3/uL [facility] RBC (Bld) [#/Vol] 3.77 10*6/uL Low [facility] WBC (Bld) [#/Vol] 9.76 10*3/uL [facility] POC Glucoseon 09-05-2019 Glucose [Mass/Vol] 115 mg/dL High 65 - 99 mg/dL [facility] Interpretation and review of laboratory results Abnormal [facility] Glucose [Mass/Vol] 92 mg/dL 65 - 99 mg/dL [facility] Interpretation and review of laboratory results Normal [facility] TSHon 09-05-2019 Interpretation and review of laboratory results Abnormal [facility] TSH Qn 8.81 m[IU]/L High [facility] URINALYSISon 09-05-2019 Bacteria Auto Ql (U) None Seen None Seen /hpf [facility] Bilirubin Ql (U) Negative Negative [facility] th Clarity Refractometry automated (U) Hazy Abnormal Clear [facility] Color (U) Yellow Colorless, Yellow [facility] Epithelial cells.squamous Auto (Urine sed) [#/Area] 6 High [facility] Glucose Auto test strip (U) [Mass/Vol] >=500 Abnormal Negative mg/dL [facility] Hemoglobin Auto test strip Ql (U) Negative Negative [facility] Interpretation and review of laboratory results Abnormal [facility] Ketones (U) [Mass/Vol] Negative Negative mg/dL [facility] Leukocyte esterase Auto test strip Ql (U) Negative Negative [facility] Mucus Auto (Urine sed) [#/Area] Rare None Seen, Rare /lpf [facility] Nitrite Auto test strip Ql (U) Negative Negative [facility] pH (U) 5.0 [pH] [facility] Protein (U) [Mass/Vol] Negative Negative mg/dL [facility] RBC Auto (Urine sed) [#/Area] <1 [facility] Specific gravity (U) [Rel density] 1.023 [facility] Urobilinogen (U) [Mass/Vol] <2.0 <2.0 mg/dL [facility] WBC Auto (Urine sed) [#/Area] 2 [facility] Microscopic examinat ion is performed on all urinalysis samples and only positive findings are reported. The test for blood on the chemical analytic portion of urinalysis may also be positive due to hemoglobinuria and myoglobinuria and if red blood cells are present they are quantified by microscopic examination. [facility] XR CHEST PA/APon 09-05-2019 XR [...] is seen. IMPRESSION: No acute cardiopulmonary abnormality. [employer] Workstation ID: [id number] Dictated by: VU NESS on MonSep 05, 2019 10:42:53 AM EST Transcribed by: IGNACIO RUVALCABA on MonSep 05, 2019 10:54:07 AM EST Finalized by: VU NESS on MonSep 05, 2019 11:55:53 AM EST Normal [facility] Comment on above: Order Comment: Injur y/Trauma [...] limits. No acute osseous abnormality is seen. [facility] No acute cardiopulmonary abnormality. [employer] Workstation ID: [id number] [facility] Madeline, Brice Michael ji Speechq - 09/05/2019 11:58 AM EST [...] acute cardiopulmonary abnormality. [employer]w Workstation ID: [id number] [facility] POC Glucoseon 09-04-2019 Glucose [Mass/Vol] 126 mg/dL High 65 - 99 mg/dL [facility] Interpretation and review of laboratory results Abnormal [facility] Glucose [Mass/Vol] 112 mg/dL High 65 - 99 mg/dL [facility] Interpretation and review of laboratory results Abnormal [facility] Glucose [Mass/Vol] 93 mg/dL 65 - 99 mg/dL [facility] Interpretation and review of laboratory results Normal [facility] Glucose [Mass/Vol] 88 mg/dL 65 - 99 mg/dL [facility] Interpretation and review of laboratory results Normal [facility] SCAN OTHER ORDERSon 09-04-20 19 Ordered by an unspecified provider. [facility] XR ELBOW LEFT 3+ VIEWS (MARTÍN COTTRELL)on [...] left elbow arthroplasty. [employer]/bd Workstation ID: [id number] Dictated by: VU NESS on MonSep 04, 2019 3:35:06 PM EST Transcribed by: JONI DELEON on MonSep 04, 2019 3:35:46 PM EST Finalized by: VU NESS on MonSep 04, 2019 4:41:06 PM EST Normal [facility] Comment on above: Order Comment: Injur y/Trauma or Illness?:Illness/Other How long have you had these symptoms (acute/chronic)?:Unknown Reason for exam?:post op History of cancer?:no Surgeries, chemotherapy, or radiation?:left elbow Type of Exam?:Initial Additional signs and symptoms?:post op XR Elbow Left 3+ Views (Martín octtrell)on 09-04-2019 Erythrocyte distribution width (RBC) [Ratio] 1. Gross anatomic alignment and intact hardware related to left elbow arthroplasty. [employer] Workstation ID: [id number] [facility] In Alec ramirez Speechq - 09/04/2019 4:43 PM EST EXAMINATION: [...] intact hardware related to left elbow arthroplasty. [employer] Workstation ID: [id number] [employer] EXAMINATION: XR ELBO W LEFT 3+ VIEWS [...] gas is shown surrounding the surgical site. [facility] XR FLUOROSCOPY TIMEon 2018 XR FLUOROSCOPY TIME This is an auto finalized result. Please refer to patient chart for further information. further information. further information. [facility] Comment on above: Order Comment: Injur y/Trauma or Illness?:Illness/Other How long have you had these symptoms (acute/chronic)?:Unknown Reason for exam?:OR Type of Exam?:Ongoing Additional signs and symptoms?:unknown Fluoro time in minutes:.59 Fluoro dose in mGy?:.18 XR Fluoroscopy Timeon 2018 This is an auto finalized result. Please refer to patient chart for further information. [facility] XR OR ELBOW LEFT 2 VIEWSon 11-05-2018 [...] MonSep 04, 2019 2:22:01 PM EST Normal [facility] Comment on above: Order Comment: Injur y/Trauma [...] the radial head. Normal alignment. [facility], Rad In Fu ji Speechq - 09/04/2019 [...] formal operative report. DPR/raw Workstation ID: [id number] [facility] Status post left elb ow arthroplasty procedure. Please refer to the formal operative report. [employer] Workstation ID: [id number] [facility] Basic Metabolic Panelon 11-2 Anion gap [Moles/Vol] 22 mmol/L High 10 - 20 mmol/L [facility] Calcium [Mass/Vol] 9.7 mg/dL 8.4 - 10. 2 mg/dL [facility] Chloride [Moles/Vol] 96 mmol/L Low 98 - 108 mmol/L [facility] Creatinine [Mass/Vol] 0.63 mg/dL 0.4 - 1.1 mg/dL [facility] GFR/1.73 sq M predicted among non-blacks MDRD (S/P/Bld) [Vol rate/Area] The eGFR should be used for monitoring renal function only and not for medication dosing. [facility] GFR/1.73 sq M.predicted CKD-EPI (S/P/Bld) [Vol rate/Area] 98 >=60 mL/min/1.73 m2 [facility] Glucose [Mass/Vol] 221 mg/dL High 65 - 99 mg/dL [facility] HCO3 [Moles/Vol] 24 mmol/L 21 - 32 mmol/L [facility] Interpretation and review of laboratory results Abnormal [facility] Potassium [Moles/Vol] 4.0 mmol/L 3.5 - 5.1 mmol/L [facility] Sodium [Moles/Vol] 138 mmol/L 135 - 145 mmol/L [facility] Urea nitrogen [Mass/Vol] 16 mg/dL 8 - 25 mg/dL [facility] Urea nitrogen/Creatinine [Mass ratio] 25.4 mg/mg High [facility] CBC WITH AUTO DIFFERENTIALon 08-28-2019 Basophils (Bld) [#/Vol] 0.07 10*3/uL [facility] Basophils/100 WBC (Bld) 0.8 % [facility] [facility] Eosinophils (Bld) [#/Vol] 0.32 10*3/uL [facility] Eosinophils/100 WBC (Bld) 3.9 % [facility] Erythrocyte distribution width (RBC) [Entitic vol] 14.3 % 11.6 - 14.8 % [facility] Hematocrit (Bld) [Volume fraction] 40.2 % 36 - 46 % [facility] Hemoglobin (Bld) [Mass/Vol] 13.5 g/dL 12 - 16 g/dL [facility] Immature granulocytes (Bld) [#/Vol] 0.03 10*3/uL [facility] Immature granulocytes/100 WBC (Bld) 0.40 % [facility] Comment on above: The IG parameter is the percentage of metamyelocytes, myelocytes, and promyelocytes. Lymphocytes (Bld) [#/Vol] 2.90 10*3/uL [facility] Lymphocytes/100 WBC (Bld) 35.2 % [facility] MCH (RBC) [Entitic mass] 29.8 pg 26 - 34 pg [facility] MCHC (RBC) [Mass/Vol] 34.0 g/dL 31 - 37 g/dL [facility] MCV (RBC) [Entitic vol] 87.6 fL 80 - 100 fL [facility] Monocytes (Bld) [#/Vol] 0.55 10*3/uL [facility] Monocytes/100 WBC (Bld) 6.7 % [facility] Neutrophils (Bld) [#/Vol] 4.38 10*3/uL [facility] Neutrophils/100 WBC (Bld) 53.0 % [facility] Nucleated RBC (Bld) [#/Vol] 0.00 10*3/uL [facility] Nucleated RBC/100 WBC (Bld) [Ratio] 0.0 % [facility] Platelet mean volume (Bld) [Entitic vol] 9.6 fL 9 - 15.5 fL [facility] Platelets (Bld) [#/Vol] 391 10*3/uL [facility] RBC (Bld) [#/Vol] 4.60 10*6/uL [facility] ealth WBC (Bld) [#/Vol] 8.25 10*3/uL [facility] ealt Creatinine, Serumon 08-28-20 19 Creatinine [Mass/Vol] 0.63 mg/dL 0.4 - 1.1 mg/dL [facility] GFR/1.73 sq M predicted among non-blacks MDRD (S/P/Bld) [Vol rate/Area] The eGFR should be used for monitoring renal function only and not for medication dosing. [facility] GFR/1.73 sq M.predicted CKD-EPI (S/P/Bld) [Vol rate/Area] 98 >=60 mL/min/1.73 m2 [facility] Interpretation and review of laboratory results Normal [facility] ECG 12-LEADon 08-28-2019 Atrial Rate 90 BPM [facility] P [place] 80 degrees [facility] P-R Interval 156 ms [facility] Q-T Interval 362 ms [facility] QRS Duration 64 ms [facility] QTC Calculation (Bezet) 442 ms [facility] R [place] 64 degrees [facility] T [place] 57 degrees [facility] Ventricular Rate 90 BPM [facility] th Normal sinus rhythm Low voltage QRS Poor R Wave Progression Septal infarct , age undetermined Abnormal ECG Confirmed by Leatha Gomez M.D. ([id number]) on 08/28/2019 1:35:26 PM [facility] Glucoseon 08-28-2019 Glucose [Mass/Vol] 221 mg/dL High 65 - 99 mg/dL [facility] Interpretation and review of laboratory results Abnormal [facility] Hemoglobin and Hematocriton 08-28-2019 Hematocrit (Bld) [Volume fraction] 40.2 % 36 - 46 % [facility] Hemoglobin (Bld) [Mass/Vol] 13.5 g/dL 12 - 16 g/dL [facility] Interpretation and review of laboratory results Normal [facility] DEBRIDEMENTon 04-23-2019 Rose Mendoza CNP 04/24/2019 8:06 AM Wound Care Debridement Timeout: Verbal Consent obtained?: Yes Written Consent obtained?: Yes Consent given by: Patient Immediately prior to procedure a time out was called to verify the correct patient, procedure, equipment, support manager and site/side marked as required Timeout performed: [...] tolerated well (...................... ....................... ....................... ...... ...............) [facility] Basic Metabolic Panelon 05-3 Anion gap molar conc 15 mmol/L 10 - 20 mmol/L [facility] Calcium mass conc 7.6 mg/dL Low 8.4 - 10.2 mg/dL [facility] Chloride molar conc 104 mmol/L 98 - 108 mmol/L [facility] Creatinine mass conc 0.55 mg/dL 0.4 - 1.1 mg/dL [facility] GFR/1.73 sq M predicted among non-blacks MDRD vol rate/area (S/P/Bld) The eGFR should be used for monitoring renal function only and not for medication dosing. [facility] GFR/1.73 sq M.predicted CKD-EPI vol rate/area (S/P/Bld) 103 >=60 mL/min/1.73 m2 [facility] Glucose mass conc 104 mg/dL High 65 - 99 mg/dL [facility] HCO3 molar conc 22 mmol/L 21 - 32 mmol/L [facility] Interpretation and review of laboratory results Abnormal [facility] Potassium molar conc 3.3 mmol/L Low 3.5 - 5.1 mmol/L [facility] Sodium molar conc 138 mmol/L 135 - 145 mmol/L [facility] Urea nitrogen mass conc 12 mg/dL 8 - 25 mg/dL [facility] Urea nitrogen/Creatinine mass ratio 21.8 mg/mg High [facility] CBC WITH AUTO DIFFERENTIALon 02-28-2019 Basophils #/vol (Bld) 0.05 10*3/uL [facility] Basophils/100 WBC (Bld) 0.5 % [facility] Eosinophils #/vol (Bld) 0.01 10*3/uL [facility] Eosinophils/100 WBC (Bld) 0.1 % [facility] Erythrocyte distribution width Entitic volume (RBC) 13.7 % 11.6 - 14.8 % [facility] Hematocrit Volume Fraction (Bld) 30.6 % Low 36 - 46 % [facility] Hemoglobin mass conc (Bld) 9.8 g/dL Low 12 - 16 g/dL [facility] Immature granulocytes #/vol (Bld) 0.07 10*3/uL [facility] Immature granulocytes/100 WBC (Bld) 0.60 % [facility] Comment on above: The IG parameter is the percentage of metamyelocytes, myelocytes, and promyelocytes. Interpretation and review of laboratory results Abnormal [facility] Lymphocytes #/vol (Bld) 2.11 10*3/uL [facility] Lymphocytes/100 WBC (Bld) 19.0 % [facility] MCH Entitic mass (RBC) 28.2 pg 26 - 34 pg [facility] MCHC mass conc (RBC) 32.0 g/dL 31 - 37 g/dL [facility] MCV Entitic volume (RBC) 88.2 fL 80 - 100 fL [facility] Monocytes #/vol (Bld) 0.94 10*3/uL High [facility] Monocytes/100 WBC (Bld) 8.5 % [facility] Neutrophils #/vol (Bld) 7.91 10*3/uL High [facility] Neutrophils/100 WBC (Bld) 71.3 % [facility] Nucleated RBC #/vol (Bld) 0.00 10*3/uL [facility] Nucleated RBC/100 WBC Ratio (Bld) 0.0 % [facility] Platelet mean volume Entitic volume (Bld) 9.2 fL 9 - 15.5 fL [facility] Platelets #/vol (Bld) 327 10*3/uL [facility] RBC #/vol (Bld) 3.47 10*6/uL Low [facility] WBC #/vol (Bld) 11.09 10*3/uL High [facility] alth POC Glucoseon 02-28-2019 Glucose mass conc 171 mg/dL High 65 - 99 mg/dL [facility] Interpretation and review of laboratory results Abnormal [facility] Glucose mass conc 76 mg/dL 65 - 99 mg/dL [facility] Interpretation and review of laboratory results Normal [facility] Glucose mass conc 171 mg/dL High 65 - 99 mg/dL [facility] Interpretation and review of laboratory results Abnormal [facility] CBC WITH AUTO DIFFERENTIALon 02-27-2019 Basophils #/vol (Bld) 0.05 10*3/uL [facility] Basophils/100 WBC (Bld) 0.5 % [facility] Eosinophils #/vol (Bld) 0.13 10*3/uL [facility] Eosinophils/100 WBC (Bld) 1.2 % [facility] Erythrocyte distribution width Entitic volume (RBC) 13.8 % 11.6 - 14.8 % [facility] Hematocrit Volume Fraction (Bld) 39.1 % 36 - 46 % [facility] Hemoglobin mass conc (Bld) 12.7 g/dL 12 - 16 g/dL [facility] Immature granulocytes #/vol (Bld) 0.06 10*3/uL [facility] Immature granulocytes/100 WBC (Bld) 0.60 % [facility] Comment on above: The IG parameter is the percentage of metamyelocytes, myelocytes, and promyelocytes. Interpretation and review of laboratory results Abnormal [facility] Lymphocytes #/vol (Bld) 1.32 10*3/uL [facility] Lymphocytes/100 WBC (Bld) 12.2 % [facility] MCH Entitic mass (RBC) 28.6 pg 26 - 34 pg [facility] MCHC mass conc (RBC) 32.5 g/dL 31 - 37 g/dL [facility] MCV Entitic volume (RBC) 88.1 fL 80 - 100 fL [facility] Monocytes #/vol (Bld) 0.50 10*3/uL [facility] Monocytes/100 WBC (Bld) 4.6 % [facility] Neutrophils #/vol (Bld) 8.79 10*3/uL High [facility] Neutrophils/100 WBC (Bld) 80.9 % [facility] Nucleated RBC #/vol (Bld) 0.00 10*3/uL [facility] Nucleated RBC/100 WBC Ratio (Bld) 0.0 % [facility] Platelet mean volume Entitic volume (Bld) 9.2 fL 9 - 15.5 fL [facility] Platelets #/vol (Bld) 369 10*3/uL [facility] RBC #/vol (Bld) 4.44 10*6/uL [facility] lth WBC #/vol (Bld) 10.85 10*3/uL [facility] alth POC Glucoseon 02-27-2019 Glucose mass conc 313 mg/dL High 65 - 99 mg/dL [facility] Interpretation and review of laboratory results Abnormal [facility] Glucose mass conc 328 mg/dL High 65 - 99 mg/dL [facility] Interpretation and review of laboratory results Abnormal [facility] Glucose mass conc 201 mg/dL High 65 - 99 mg/dL [facility] Interpretation and review of laboratory results Abnormal [facility] Glucose mass conc 208 mg/dL High 65 - 99 mg/dL [facility] Interpretation and review of laboratory results Abnormal [facility] SCAN OTHER ORDERSon 02-28-20 19 Ordered by an unspecified provider. [facility] XR Elbow Right 3+ Views [...] COMPARISON: Right elbow radiographs 07/21/2016 from [facility]. FINDINGS: Three views of the [...] soft tissue air compatible with recent surgery. [facility] Interface, Rad In Fu ji [...] COMPARISON: Right elbow radiographs 07/21/2016 from [facility]. FINDINGS: Three views of the [...] A nondisplaced fracture is considered less likely. 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 Linear lucency adjacent to the ulnar stem in the region of the base of the coronoid process probably represents a mildly prominent cement bone interface. A nondisplaced fracture is considered less likely. [employer] Workstation ID: [id number] [facility] XR Fluoroscopy Timeon 2018 This is an auto finalized result. Please refer to patient chart for further information. [facility] Creatinine, Serumon 02-22-20 19 Creatinine mass conc 0.57 mg/dL 0.4 - 1.1 mg/dL [facility] GFR/1.73 sq M predicted among non-blacks MDRD vol rate/area (S/P/Bld) The eGFR should be used for monitoring renal function only and not for medication dosing. [facility] GFR/1.73 sq M.predicted CKD-EPI vol rate/area (S/P/Bld) 102 >=60 mL/min/1.73 m2 [facility] Interpretation and review of laboratory results Normal [facility] ECG 12-LEADon 02-21-2019 Atrial Rate 78 BPM [facility] P [place] 67 degrees [facility] P-R Interval 142 ms [facility] Q-T Interval 402 ms [facility] QRS Duration 78 ms [facility] QTC Calculation (Bezet) 458 ms [facility] R [place] 47 degrees [facility] T [place] 52 degrees [facility] Ventricular Rate 78 BPM [facility] Normal sinus rhythm Normal ECG Confirmed by SVETA SILVA D.O. ([id number]) on 02/21/2019 1:00:32 PM [facility] Glucoseon 02-21-2019 Glucose mass conc 407 mg/dL Critically high 65 - 99 mg/dL [facility] Interpretation and review of laboratory results Abnormal [facility] XR Cervical Spine with Flexi on and Extension 6+ [employer]son 02-21-2019 Very minimal degenerative disc disease at C4-5. No fracture. No instability in flexion or extension. [employer] Workstation ID: [id number] [facility] EXAMINATION: XR CERVICAL SPINE WITH FLEXION AND EXTENSION 6+ VIEWS HISTORY: ORDERING SYSTEM PROVIDED HISTORY: pat, TECHNOLOGIST PROVIDED HISTORY: Reason for exam: pat for intubation Illness/Other Cancer History: no Surgery, RadiationHistory: no Encounter Type: Initial Additional signs and symptoms: patient has rheumatoid arthritis ORDERING SYSTEM PROVIDED DIAGNOSIS CODES: Z01.818 Pre-op exam COMPARISON: CT from [facility] 05/03/2013. FINDINGS: Seven images including flexion-extension. Minimal anterior discogenic spurring is seen at C4-5. No spondylolisthesis or fracture or prevertebral soft tissue swelling. No instability in flexion with specific attention to the atlantoaxial joint. No instability in extension. Facet arthrosis most prominent on the left between C3 and C6. [facility] Interface, Rad In Fu ji [...] CODES: Z01.818 Pre-op exam COMPARISON: CT from [facility] 05/03/2013. FINDINGS: Seven images including flexion-extension. [...] flexion or extension. [employer] Workstation ID: [id number] [facility] PROGRESSon 04-18-2017 PROGRESS HNO ID: [id number]: Kelsey (Rt) DenoService: RadiologyAuthor Type: TechnicianType: Progress NotesFiled: 04/18/2017 2:29 PMNote Text: Radiology Service Progress NotePATIENT NAME: Elsa CatalanMRN: [id number] OF SERVICE: April 18, 2017TIME: 2:27 PMPATIENT [...] :PERIPHERAL IV DATA: Not applicableSIGNED BY: Marilyn Hnut RT (R)April 18, 2017 2:27 PM [facility] XR CERVICAL AP/LAT/OBLon XR CERVICAL AP/LAT/OBL [...] MD on Apr 18 2017 3:39PM EST [facility] XR ELBOW M3V [place] 201 7 XR ELBOW M3V UNI * * [...] JOINTS PROGRESSED SINCE THE PREVIOUS EXAMINATION.Transcripti onist: PSCNel Transcribe Date/Time: Apr 18 2017 3:33PDictated by : Jeevan MARIA examination was interpreted and the report reviewed and electronically signed by: KEMI DE LEON MD on Apr 18 2017 3:35PM EST [facility] XR SHOULDER M2V [place] 2016 XR SHOULDER M2V UNI * * [...] BONY ABNORMALITY, NO CHANGE COMPARED TO PREVIOUS EXAM.Grey Inspector: PSCB Transcribe Date/Time: Apr 18 2017 3:35PDictated by : Jeevan MARIA examination was interpreted and the report reviewed and electronically signed by: KEMI DE LEON MD on Apr 18 2017 3:37PM [facility] Vital Signs Date Time Vital Sign Value Performing Clinician Dannydipti yonatan 05-18-2024 10:16-0400 Body mass index (BMI) [Ratio] 25.04 kg/m2 Pepe Carter MD Work Phone: [facility] 05-18-2024 10:16-0400 Body weight 66.2 kg Pepe Carter MD Work Phone: [facility] 05-18-2024 10:16-0400 Diastolic blood pressure 91 mm[Hg] Pepe Carter MD Work Phone: [facility] 05-18-2024 10:16-0400 Heart rate 90 /min Pepe Carter MD Work Phone: [facility] 05-18-2024 10:16-0400 Systolic blood pressure 155 mm[Hg] Pepe Carter MD Work Phone: [facility] 11-23-2023 08:58-0500 Body weight 68.95 kg Pepe Carter MD Work Phone: [facility] 11-23-2023 08:58-0500 Diastolic blood pressure 83 mm[Hg] Pepe Carter MD Work Phone: [facility] 11-23-2023 08:58-0500 Heart rate 81 /min Pepe Carter MD Work Phone: [facility] 11-23-2023 08:58-0500 Systolic blood pressure 129 mm[Hg] Pepe Carter MD Work Phone: [facility] 08-11-2022 09:13-0500 Body weight 66.13 kg Pepe Carter MD Work Phone: [facility] 08-11-2022 09:13-0500 Diastolic blood pressure 72 mm[Hg] Pepe Carter MD Work Phone: [facility] 08-11-2022 09:13-0500 Heart rate 83 /min Pepe Carter MD Work Phone: [facility] 08-11-2022 09:13-0500 SaO2% (BldA) [Mass fraction] 99 % Pepe Carter MD Work Phone: [facility] 08-11-2022 09:13-0500 Systolic blood pressure 115 mm[Hg] Pepe Carter MD Work Phone: [facility] 04-08-2020 17:10-0400 BP Diastolic 72 mm[Hg] [facility] 04-08-2020 17:10-0400 BP Systolic 145 mm[Hg] [facility] 04-08-2020 17:10-0400 Pulse (Heart Rate) 94 /min [facility] 04-08-2020 17:10-0400 Pulse Oximetry 98 % [facility] 04-08-2020 17:10-0400 Respiratory Rate 13 /min [facility] 04-08-2020 17:00-0400 Body Temperature 97.39 [degF] [facility] 04-08-2020 09:55-0400 BMI (Body Mass Index) 24.6 kg/m2 [facility] 04-08-2020 09:55-0400 Body weight 65 kg [facility] 04-08-2020 09:55-0400 Height 162.6 cm [facility] 10-14-2019 15:05-0500 Respiratory Rate 14 /min [facility] 10-14-2019 07:13-0500 Body Temperature 98.29 [degF] [facility] 10-14-2019 07:13-0500 BP Diastolic 86 mm[Hg] [facility] 10-14-2019 07:13-0500 BP Systolic 134 mm[Hg] [facility] 10-14-2019 07:13-0500 Pulse (Heart Rate) 81 /min [facility] 10-14-2019 07:13-0500 Pulse Oximetry 97 % [facility] 10-12-2019 12:49-0500 BMI (Body Mass Index) 24.22 kg/m2 [facility] 10-12-2019 12:49-0500 Body weight 64 kg [facility] 10-12-2019 12:49-0500 Height 162.6 cm Ted Delvalle [facility] 10-08-2019 10:45-0500 BMI (Body Mass Index) 24.55 kg/m2 Rose Mendoza [facility] 10-08-2019 10:45-0500 Body weight 64.86 kg Rose Mendoza [facility] 10-08-2019 10:45-0500 Height 162.6 cm Rose Mendoza [facility] 10-08-2019 10:40-0500 Body Temperature 98.01 [degF] Rose Mendoza [facility] 10-08-2019 10:40-0500 BP Diastolic 99 mm[Hg] Rose Mendoza [facility] 10-08-2019 10:40-0500 BP Systolic 179 mm[Hg] Rose Mendoza [facility] 10-08-2019 10:40-0500 Pulse (Heart Rate) 95 /min Rose Mendoza [facility] 10-08-2019 10:40-0500 Respiratory Rate 16 /min Rose Mendoza [facility] 09-05-2019 11:12-0500 Body Temperature 99.19 [degF] [facility] 11:12-0500 BP Diastolic 62 mm[Hg] [facility] 11:12-0500 BP Systolic 99 mm[Hg] [facility]-2019 11:12-0500 Pulse (Heart Rate) 96 /min [facility] 09-05-2019 11:12-0500 Pulse Oximetry 97 % [facility]-2019 11:12-0500 Respiratory Rate 12 /min [facility]-04-2019 09:34-0500 BMI (Body Mass Index) 25.05 kg/m2 [facility]-04-2019 09:34-0500 Body weight 66.2 kg [facility]-04-2019 09:34-0500 Height 162.6 cm [facility] 08-28-2019 13:08-0500 BMI (Body Mass Index) 24.22 kg/m2 [facility] 13:08-0500 Body Temperature 98.8 [degF] [facility] 13:08-0500 Body weight 64 kg Leatha Christ [facility] 08-28-2019 13:08-0500 BP Diastolic 92 mm[Hg] Leatha Christ [facility] 08-28-2019 13:08-0500 BP Systolic 147 mm[Hg] Leatha Christ [facility] 08-28-2019 13:08-0500 Height 162.6 cm Leatha Christ [facility] 08-28-2019 13:08-0500 Pulse (Heart Rate) 85 /min Leatha Christ [facility] 08-28-2019 13:08-0500 Pulse Oximetry 96 % Leatha Christ [facility] 08-28-2019 13:08-0500 Respiratory Rate 13 /min Leathaesteban Gomez [facility] 04-30-2019 13:45-0400 BP Diastolic 95 mm[Hg] Rose Mendoza [facility] 04-30-2019 13:45-0400 BP Systolic 174 mm[Hg] Rose Mendoza [facility] 04-30-2019 13:45-0400 Pulse (Heart Rate) 93 /min Rose Mendoza [facility] 04-30-2019 13:42-0400 Body Temperature 98.49 [degF] Rose Mendoza [facility] 04-30-2019 13:42-0400 Respiratory Rate 18 /min Rose Mendoza [facility] 04-23-2019 15:12-0400 BMI (Body Mass Index) 24.55 kg/m2 Rose Mendoza [facility] 04-23-2019 15:12-0400 Body Temperature 98.2 [degF] Rose Mendoza [facility] 04-23-2019 15:12-0400 Body weight 64.86 kg Rose Mendoza [facility] 04-23-2019 15:12-0400 BP Diastolic 85 mm[Hg] Rose Mendoza [facility] 04-23-2019 15:12-0400 BP Systolic 162 mm[Hg] Rose Mendoza [facility] 04-23-2019 15:12-0400 Height 162.6 cm Rose Mendoza [facility] 04-23-2019 15:12-0400 Pulse (Heart Rate) 92 /min Rose Mendoza [facility] 04-23-2019 15:12-0400 Respiratory Rate 18 /min Rose Mendoza [facility] 02-28-2019 14:05-0400 Respiratory Rate 12 /min Ay[facility] 02-28-2019 11:38-0400 Body Temperature 97.9 [degF] [facility] 02-28-2019 11:38-0400 BP Diastolic 91 mm[Hg] [facility] 02-28-2019 11:38-0400 BP Systolic 155 mm[Hg] [facility] 02-28-2019 11:38-0400 Pulse (Heart Rate) 83 /min [facility] 02-28-2019 11:38-0400 Pulse Oximetry 99 % [facility] 02-27-2019 06:43-0400 BMI (Body Mass Index) 24.41 kg/m2 [facility] 02-27-2019 06:43-0400 Height 162.6 cm [facility] 02-27-2019 06:43-0400 Weight 64.5 kg [facility] 02-21-2019 11:47-0400 BMI (Body Mass Index) 24.22 kg/m2 [facility] 02-21-2019 11:47-0400 Body Temperature 98.01 [degF] [facility] 02-21-2019 11:47-0400 BP Diastolic 105 mm[Hg] [facility] 02-21-2019 11:47-0400 BP Systolic 190 mm[Hg] [facility] 02-21-2019 11:47-0400 Height 162.6 cm [facility] 02-21-2019 11:47-0400 Pulse (Heart Rate) 81 /min [facility] 02-21-2019 11:47-0400 Pulse Oximetry 98 % [facility] 02-21-2019 11:47-0400 Respiratory Rate 18 /min [facility] 02-21-2019 11:47-0400 Weight 64 kg [facility] Encounters Encounter Date Encounter Type Care Provider Facility Start: 08-01-2024 End: 08-01-2024 Bamboo flowsheet Fela Disla [facility] Start: 08-01-2024 End: 08-01-2024 Bamboo flowsheet Fela Mezay [facility] Start: 08-01-2024 End: 08-01-2024 ambulatory Fela Disla [facility] Comment on above: Right hip pain (Prim case Dx); Right leg weakness; Difficulty walking Start: 07-30-2024 End: 07-30-2024 Bamboo flowsheet Liu Brink [facility] Start: 07-30-2024 End: 07-30-2024 Bamboo flowsheet Liu Brink [facility] Start: 07-30-2024 End: 07-30-2024 ambulatory Liu Brink [facility] Comment on above: Right hip pain (Prim case Dx); Right leg weakness; Difficulty walking Start: 07-22-2024 End: 07-22-2024 Bamboo flowsheet Liu Brink [facility] Start: 07-22-2024 End: 07-22-2024 Bamboo flowsheet Liu Brink [facility] Start: 07-22-2024 End: 07-22-2024 ambulatory Liu Brink [facility] Comment on above: Right hip pain (Prim case Dx); Right leg weakness; Difficulty walking Start: 07-18-2024 End: 07-18-2024 Bamboo flowsheet Fela Mezay [facility] Start: 07-18-2024 End: 07-18-2024 Bamboo flowsheet Fela Champagnebley [facility] Start: 07-18-2024 End: 07-18-2024 ambulatory Fela Mezay [facility] Comment on above: Right hip pain (Prim case Dx); Right leg weakness; Difficulty walking Start: 07-16-2024 End: 07-16-2024 Bamboo flowsheet Liu Brink [facility] Start: 07-16-2024 End: 07-16-2024 Bamboo flowsheet Liu Brink [facility] Start: 07-16-2024 End: 07-16-2024 ambulatory Liu Brink [facility] Comment on above: Right hip pain (Prim case Dx); Right leg weakness; Difficulty walking Start: 07-11-2024 End: 07-11-2024 Bamboo flowsheet Magdalena Young PT Work Phone: [facility] Start: 07-11-2024 End: 07-11-2024 Bamboo flowsheet Magdalena Young PT Work Phone: [facility] Start: 07-11-2024 End: 07-11-2024 ambulatory Magdalena Young PT Work Phone: [facility] Comment on above: Right hip pain (Prim case Dx); Right leg weakness; Difficulty walking Start: 06-06-2024 End: 06-06-2024 ambulatory [facility] Facility:[facility] Start: 06-06-2024 End: 06-06-2024 Subsequent hospital visit by physician [facility] Comment on above: Trigger middle finge r of right hand [M65.331] Start: 05-18-2024 End: 05-18-2024 [facility]ulatory [facility] Facility[facility] Start: 05-18-2024 End: 05-18-2024 Patient encounter procedure [...] Start: 05-14-2024 End: 05-14-2024 ambulatory PRETTY FERMIN Facility:[facility] Start: 12-29-2023 Telephone encounter Pepe allison MD Work Phone: Rheumatology Comment on above: Patient Question Start: 11-23-2023 End: 11-23-2023 ambulatory PEPE TSAI Facility:[facility] Start: 11-23-2023 End: 11-23-2023 Patient encounter procedure [...] 07-27-2022 Refill Pepe Carter MD Work Phone: [address] [place] [address] Comment on above: Refill Request Start: 07-06-2022 End: 07-07-[address] LATASHA HAYES Facility:[facility] Start: 04-17-2022 Refill Pepe Carter MD Work Phone: Internal Medicine [place] Comment on above: Refill Request Start: 02-01-2022 End: 02-02-2022 ambulatory TRUDY COLLINS Facility:[facility] Start: 01-14-2022 End: 01-15-2022 ambulatory TAWANDA COOK Facility:[facility] Start: 01-13-2022 End: 01-14-[address] STU SAMUEL Facility:[facility] Start: 12-31-2021 End: 01-01-2022 ambulatory TAWANDA COOK Facility:[facility] Start: 12-30-2021 End: 12-30-2021 ambulatory Janel Chi APRN.OFFICE ADMINISTRATOR Work Phone: Rheumatology Comment on above: Rheumatoid arthritis of multiple sites without organ or system involvement with positive rheumatoid factor (HCC) (Primary Dx); Bilateral elbow joint pain; Fibromyalgia; Primary osteoarthritis of both wrists; Synovitis of hand; Long-term use of high-risk medication; Joint stiffness of multiple sites; Bilateral hand pain Start: 12-30-2021 End: 12-30-2021 Telemedicine consultation with patient Janel Chi APRN.OFFICE ADMINISTRATOR Work Phone: Radha [place] [facility] Start: 12-29-2021 Telephone encounter Pepe allison MD Work Phone: Rheumatology Comment on above: Results Start: 12-28-2021 End: 12-29-2021 ambulatory TAWANDA COOK Facility:[facility] Start: 07-26-2021 End: 07-26-2021 Subsequent hospital visit by physician [facility] Comment on above: Chronic elbow pain, left [M25.522, G89.29] Start: 12-08-2020 End: 12-08-2020 Orders Only Migdalia Wilson Work Phone: [facility] Provider Hospitalist Start: 04-08-2020 End: 04-08-2020 Patient encounter procedure AYDE ALMANZAR [facility] Start: 04-08-2020 End: 04-08-2020 Subsequent hospital visit by physician Ayde Borrerosarah Work Phone: [facility] Per[facility] Comment on above: Post-op pain (Primar y Dx) Start: 04-06-2020 End: 04-06-2020 Patient encounter procedure AYDE ALMANZAR [facility] Start: 04-01-2020 End: 04-01-2020 Patient encounter procedure [facility] Start: 10-14-2019 Patient encounter procedure DEREK Katie ZABAL[facility] Start: 10-12-2019 End: 10-14-2019 Patient encounter procedure PRETTY FERMIN [facility] Start: 10-12-2019 End: 10-14-2019 Emergency department patient visit Ted Delvalle Work Phone: [facility] Comment on above: Complication of proc edure, subsequent encounter (Primary Dx); Acute neuritis; Non-healing wound of upper extremity, left, initial encounter Start: 10-08-2019 End: 10-08-2019 Patient encounter procedure ROSE MENDOZA [facility] Start: 10-08-2019 End: 10-08-2019 Patient encounter procedure Rose Sierra Mendoza Work Phone: [facility] Comment on above: Skin ulcer of elbow with fat layer exposed (HCC) (Primary Dx); Type 2 diabetes mellitus with other skin ulcer, with long-term current use of insulin (HCC); Rheumatoid arthritis involving left elbow with positive rheumatoid factor (HCC); Fibromyalgia affecting forearm Start: 09-04-2019 End: 09-05-2019 [facility] Start: 09-04-2019 End: 09-05-2019 Evaluation and management of inpatient Ayde Almanzar Work Phone: [facility] Comment on above: Post-operative pain (Primary Dx); Elbow pain, unspecified laterality Start: 08-28-2019 End: 08-28-2019 Patient encounter procedure AYDE ALMANZAR [facility] Start: 08-28-2019 End: 08-28-2019 Patient encounter procedure Ayde Almanzar Work Phone: [facility] Preadmission Testing Comment on above: Preop examination [...] 04-30-2019 End: 04-30-2019 Patient encounter procedure ROSE SIERRA MENDOZA [facility] Start: 04-30-2019 End: 04-30-2019 Office outpatient visit 5 minutes Rosecorey Daygill Mendoza Work Phone: [facility] Comment on above: Skin ulcer of elbow with fat layer exposed (HCC) (Primary Dx); Type 2 diabetes mellitus with other skin ulcer, with long-term current use of insulin (HCC); Rheumatoid arthritis involving right elbow, unspecified rheumatoid factor presence (HCC); Fibromyalgia affecting forearm; Essential hypertension Start: 04-23-2019 Patient encounter procedure AUNDREA CLIFFORD [facility] Start: 04-23-2019 End: 04-23-2019 Patient encounter procedure Aundrea Clifford Work Phone: [facility] Comment on above: Skin ulcer of elbow with fat layer exposed (HCC) (Primary Dx); Type 2 diabetes mellitus with other skin ulcer, with long-term current use of insulin (HCC); Rheumatoid arthritis involving right elbow, unspecified rheumatoid factor presence (HCC); Fibromyalgia affecting forearm; Essential hypertension Start: 02-27-2019 End: 02-28-2019 Patient encounter procedure Ayde Almanzar Work Phone: [facility] Comment on above: Elbow injury, unspec ified laterality, sequela (Primary Dx) Start: 02-21-2019 End: 02-21-2019 Patient encounter procedure Sveta Silva Work Phone: [facility] Comment on above: Pre-op exam Start: 02-21-2019 End: 02-21-2019 Patient encounter procedure Ayde Borrerosarah Work Phone: [facility] Preadmission Testing Comment on above: Pre-op exam (Primary Dx); Other specified rheumatoid arthritis, right elbow (HCC); Contracture of right elbow; Lesion of right ulnar nerve; Pre-operative cardiovascular examination; Benign essential hypertension; Type 2 diabetes mellitus without complication, with long-term current use of insulin ([facility]); Rheumatoid arthritis, involving unspecified site, unspecified rheumatoid factor presence ([facility]); Fibromyalgia; PONV (postoperative nausea and vomiting); No contraindication to deep vein thrombosis (DVT) prophylaxis Start: 04-18-2017 Ambulatory PEPE Donohue [facility] Procedures Date Procedure Procedure Detail Performing [...] 10-14-2019 Glucose [Mass/volume ] in Blood Generic [facility] Work Phone: Start: 10-14-2019 Glucose [Mass/volume ] in Blood Generic [facility] Work Phone: Start: 10-14-2019 Basic metabolic 2000 panel - Serum or Plasma Rochelle Salmeron Work Phone: Start: 10-14-2019 Complete blood count with white cell differential, automated Rochelle Salmeron Work Phone: Start: 10-14-2019 Complete blood count with white cell differential, manual Rochelle Salmeron Work Phone: Start: 10-13-2019 Glucose [Mass/volume ] in Blood Generic [facility] Work Phone: Start: 10-13-2019 Glucose [Mass/volume ] in Blood Generic [facility] Work Phone: Start: 10-13-2019 Glucose [Mass/volume ] in Blood Generic [facility] Work Phone: Start: 10-13-2019 End: 10-13-2019 INCISION AND DRAINAGE UPPER EXTREMITY Ayde Almanzar Work Phone: Start: 10-13-2019 Glucose [Mass/volume ] in Blood Generic [facility] Work Phone: Start: 10-12-2019 Glucose [Mass/volume ] in Blood Generic [facility] Work Phone: Start: 10-12-2019 Glucose [Mass/volume ] in Blood Generic [facility] Work Phone: Start: 10-12-2019 Complete blood [...] Phone: Start: 09-04-2019 Radex elbow 2 views Germano wayne Almanzar Work Phone: Start: 09-04-2019 End: [...] Radex elbow complete minimum 3 views Marilyn Daina Ramirez Work Phone: Start: 02-27-2019 Glucose [Mass/volume [...] spine cervical 6 or more views Sveta Pretty Sho Work Phone: Start: 02-21-2019 Creatinine [Mass/vol ume] in Serum or Plasma Sveta Johnson Sho Work Phone: Start: 02-21-2019 Glucose [Mass/volume ] in Serum or Plasma Sveta Silva Work Phone: Start: 02-21-[address] Generic Plan of Treatment Date Care Activity Detail Author Start: 12-24-2024 End: 12-24-2024 Patient encounter procedure 12/24/2024 8:55 AM EDT Appointment Radiology [address] [facility] [place] [address] Postmenopausal osteoporosis of multiple sites [M81.0] Radiology Comment on above: Postmenopausal osteo porosis of multiple sites [M81.0] Start: 11-22-2024 End: 11-22-2024 Patient encounter procedure 11/22/2024 12:20 PM EST Office Visit Rheumatology [address] [place] [address] Pepe Carter MD [address] [facility] [place] [address] for RA/osteoarthritis/osteo penia fu OV 6months. Rheumatology Comment on above: for RA/osteoarthriti s/osteopenia fu OV 6months. Start: 09-10-2024 End: 09-10-2024 Patient encounter procedure 09/10/2024 11:30 AM EST Office Visit [facility] [address] [place] [address] Trudy Collins MD [address] [place] [address] [facility] Start: 09-04-2024 End: 09-04-2024 Patient encounter procedure 09/04/2024 2:00 PM EST Office Visit Orthopaedics [address] [place] [address] Kashmir Pereira MD [address] [place] [address] Trigger middle finger of right hand [M65.331] Orthopaedics Comment on above: Trigger middle finge r of right hand [M65.331] Start: 08-15-2024 End: 05-15-2025 25-hydroxyvitamin D3 [Mass/volume] in Serum or Plasma VITAMIN D 25 HYDROXY Lab Routine Vitamin D deficiency Expected: 08/15/2024 (Approximate), Expires: 05/15/2025 [facility] Comment on above: Expected: 08/15/2024 (Approximate), Expires: 05/15/2025 Start: 08-15-2024 End: 05-15-2025 C reactive protein [Mass/volume] in Serum or Plasma C-REACTIVE PROTEIN Lab Routine Elevated sed rate Elevated C-reactive protein (CRP) Expected: 08/15/2024 (Approximate), Expires: 05/15/2025 [facility] Comment on above: Expected: 08/15/2024 (Approximate), Expires: 05/15/2025 Start: 08-15-2024 End: 05-15-2025 CBC panel - Blood by Automated count COMPLETE BLOOD COUNT Lab Routine Anemia of chronic disease Expected: 08/15/2024 (Approximate), Expires: 05/15/2025 [facility] Comment on above: Expected: 08/15/2024 (Approximate), Expires: 05/15/2025 Start: 08-15-2024 End: 05-15-2025 Comprehensive metabolic 2000 panel - Serum or Plasma COMPREHENSIVE METABOLIC PANEL Lab Routine Elevated LFTs Expected: 08/15/2024 (Approximate), Expires: 05/15/2025 [facility] Work Phone: Comment on above: Expected: 08/15/2024 (Approximate), Expires: 05/15/2025 Start: 08-15-2024 End: 05-15-2025 Erythrocyte sedimentation rate SEDIMENTATION RATE, WESTERGREN Lab Routine Elevated sed rate Elevated C-reactive protein (CRP) Expected: 08/15/2024 (Approximate), Expires: 05/15/2025 [facility] Comment on above: Expected: 08/15/2024 (Approximate), Expires: 05/15/2025 Start: 08-08-2024 End: 08-08-2024 ambulatory 08/08/2024 9:30 AM EST Treatment [facility] [address] [facility] [address] [place] [address] Liu Gaitan, [facility] Start: 08-06-2024 End: 08-06-2024 ambulatory 08/06/2024 8:30 AM EST Treatment [facility] [address] [facility] [address] [place] [address] Magdalena Young, PT [address] [facility] [address] [place] [address] [facility] Start: 08-01-2024 End: 08-01-2024 ambulatory [facility] Comment on above: Arrived Start: 07-30-2024 End: 07-30-2024 ambulatory [facility] Comment on above: Arrived Start: 07-25-2024 End: 07-25-2024 ambulatory 07/25/2024 8:30 AM EDT Treatment [facility] [address] [facility] [address] [place] [address] Liu Gaitan, [facility] Start: 07-22-2024 End: 07-22-2024 ambulatory [facility] Comment on above: Arrived Start: 07-18-2024 End: 07-18-2024 ambulatory [facility] Comment on above: Arrived Start: 07-16-2024 End: 07-16-2024 ambulatory [facility] Comment on above: Arrived Start: 07-11-2024 End: 07-11-2024 ambulatory 07/11/2024 9:00 AM EDT Evaluation [facility] [address] [place] [address] [place] [address] Magdalena Young, PT [address] Jose Miguel [address] [place] [address] Arrived [facility] Comment on above: Arrived Start: 06-02-2024 Influenza vaccination C [facility] Start: 2024 Advance Directive Discussion Advance Directive Discussion [facility] Start: 2024 Pneumococcal Vaccine : 65+ Years (1 of 1 - PCV) Pneumococcal Vaccine: 65+ Years (1 of 1 - PCV) [facility] Start: 2024 Screening for osteoporosis Bone Density Screening [facility] Start: 05-22-2024 End: 05-22-2024 Patient encounter procedure 05/22/2024 9:15 AM EDT Appointment Radiology [address] [place] [address] Trigger middle finger of right hand [M65.331] Radiology Comment on above: Trigger middle finge r of right hand [M65.331] Start: 05-18-2024 End: 05-18-2024 Patient encounter procedure 05/18/2024 10:20 AM EDT Office Visit Rheumatology [address] [place] [address] Pepe Carter MD [address] [place] [address] Please schedule follow up visit 05/18/24 via phone/virtual or in office visit RILEY DONOHUE -PT AWARE OF LOCATION Rheumatology Comment on above: Please schedule foll ow up visit 05/18/24 via phone/virtual or in office visit [facility] DON[facility] -PT AWARE OF LOCATION Start: 10-02-2023 Behavioral Health Screening Behavioral Health Screening [facility] Start: 10-02-2023 Depression Assessment Depression Ass essment [facility] Start: 08-28-2023 End: 05-28-2024 25-hydroxyvitamin D3 [Mass/volume] in Serum or Plasma VITAMIN D 25 HYDROXY Lab Routine Vitamin D deficiency Expected: 08/28/2023 (Approximate), Expires: 05/28/2024 [facility] Work Phone: Comment on above: Expected: 08/28/2023 (Approximate), Expires: 05/28/2024 Start: 08-28-2023 End: 05-28-2024 BLOOD TB SCREEN BLOOD TB SCREEN Lab Routine Screening-pulmonary TB Expected: 08/28/2023 (Approximate), Expires: 05/28/2024 [facility] Work Phone: Comment on above: Expected: 08/28/2023 (Approximate), Expires: 05/28/2024 Start: 08-28-2023 End: 05-28-2024 C reactive protein [Mass/volume] in Serum or Plasma C-REACTIVE PROTEIN (CRP) Lab Routine Elevated sed rate Elevated C-reactive protein (CRP) Expected: 08/28/2023 (Approximate), Expires: 05/28/2024 [facility] Work Phone: Comment on above: Expected: 08/28/2023 (Approximate), Expires: 05/28/2024 Start: 08-28-2023 End: 05-28-2024 CBC panel - Blood by Automated count CBC Lab Routine Anemia of chronic disease Expected: 08/28/2023 (Approximate), Expires: 05/28/2024 [facility] Work Phone: Comment on above: Expected: 08/28/2023 (Approximate), Expires: 05/28/2024 Start: 08-28-2023 End: 05-28-2024 Cobalamin (Vitamin B12) [Mass/volume] in Serum or Plasma VITAMIN B12 BLOOD Lab Routine Vitamin B12 deficiency Expected: 08/28/2023 (Approximate), Expires: 05/28/2024 [facility] Work Phone: Comment on above: Expected: 08/28/2023 (Approximate), Expires: 05/28/2024 Start: 08-28-2023 End: 05-28-2024 Comprehensive metabolic 2000 panel - Serum or Plasma COMP METABOLIC PANEL Lab Routine Elevated LFTs Expected: 08/28/2023 (Approximate), Expires: 05/28/2024 [facility] Work Phone: Comment on above: Expected: 08/28/2023 (Approximate), Expires: 05/28/2024 Start: 08-28-2023 End: 05-28-2024 Erythrocyte sedimentation rate SED RATE WESTERGREN Lab Routine Elevated sed rate Elevated C-reactive protein (CRP) Expected: 08/28/2023 (Approximate), Expires: 05/28/2024 [facility] Work Phone: Comment on above: Expected: 08/28/2023 (Approximate), Expires: 05/28/2024 Start: 08-11-2023 BP CONTROLLED (<130/80) BP CONTROLLE D (<130/80) [facility] Start: 06-02-2023 Influenza vaccination [facility] Start: 10-31-2022 End: 07-31-2023 25-hydroxyvitamin D3 [Mass/volume] in Serum or Plasma VITAMIN D 25 HYDROXY Lab Routine Vitamin D deficiency Expected: 10/31/2022 (Approximate), Expires: 07/31/2023 [facility] Work Phone: Comment on above: Expected: 10/31/2022 (Approximate), Expires: 07/31/2023 Start: 10-31-2022 End: 07-31-2023 C reactive protein [Mass/volume] in Serum or Plasma C-REACTIVE PROTEIN (CRP) Lab Routine Elevated sed rate Elevated C-reactive protein (CRP) Expected: 10/31/2022 (Approximate), Expires: 07/31/2023 [facility] Work Phone: Comment on above: Expected: 10/31/2022 (Approximate), Expires: 07/31/2023 Start: 10-31-2022 End: 07-31-2023 CBC panel - Blood by Automated count CBC Lab Routine Anemia of chronic disease Expected: 10/31/2022 (Approximate), Expires: 07/31/2023 [facility] Work Phone: Comment on above: Expected: 10/31/2022 (Approximate), Expires: 07/31/2023 Start: 10-31-2022 End: 07-31-2023 Comprehensive metabolic 2000 panel - Serum or Plasma COMP METABOLIC PANEL Lab Routine Elevated LFTs Expected: 10/31/2022 (Approximate), Expires: 07/31/2023 [facility] Work Phone: Comment on above: Expected: 10/31/2022 (Approximate), Expires: 07/31/2023 Start: 10-31-2022 End: 07-31-2023 Erythrocyte sedimentation rate SED RATE WESTERGREN Lab Routine Elevated sed rate Elevated C-reactive protein (CRP) Expected: 10/31/2022 (Approximate), Expires: 07/31/2023 [facility] Work Phone: Comment on above: Expected: 10/31/2022 (Approximate), Expires: 07/31/2023 Start: 10-02-2022 DEPRESSION ASSESSMENT DEPRESSION ASS ESSMENT [facility] Start: 06-02-2022 Influenza vaccination INFLUENZA (#1) [facility] Start: 04-20-2022 Adult depression screening assessment DEPRESSION SCREENING [facility] Start: 03-31-2022 End: 12-29-2022 C reactive protein [Mass/volume] in Serum or Plasma C-REACTIVE PROTEIN (CRP) Lab Routine Elevated sed rate Elevated C-reactive protein (CRP) Expected: 03/31/2022 (Approximate), Expires: 12/29/2022 [facility] Work Phone: Comment on above: Expected: 03/31/2022 (Approximate), Expires: 12/29/2022 Start: 03-31-2022 End: 12-29-2022 CBC panel - Blood by Automated count CBC Lab Routine Anemia of chronic disease Expected: 03/31/2022 (Approximate), Expires: 12/29/2022 [facility] Work Phone: Comment on above: Expected: 03/31/2022 (Approximate), Expires: 12/29/2022 Start: 03-31-2022 End: 12-29-2022 Comprehensive metabolic 2000 panel - Serum or Plasma COMP METABOLIC PANEL Lab Routine Elevated LFTs Expected: 03/31/2022 (Approximate), Expires: 12/29/2022 [facility] Work Phone: Comment on above: Expected: 03/31/2022 (Approximate), Expires: 12/29/2022 Start: 03-31-2022 End: 12-29-2022 Erythrocyte sedimentation rate SED RATE WESTERGREN Lab Routine Elevated sed rate Elevated C-reactive protein (CRP) Expected: 03/31/2022 (Approximate), Expires: 12/29/2022 [facility] Work Phone: Comment on above: Expected: 03/31/2022 (Approximate), Expires: 12/29/2022 Start: 03-31-2022 End: 12-29-2022 VITAMIN D 25 HYDROXY VITAMIN D 25 HYDROXY Lab Routine Vitamin D deficiency Expected: 03/31/2022 (Approximate), Expires: 12/29/2022 [facility] Work Phone: Comment on above: Expected: 03/31/2022 (Approximate), Expires: 12/29/2022 Start: 10-02-2021 DEPRESSION ASSESSMENT DEPRESSION ASS ESSMENT [facility] Start: 08-19-2021 COVID-19 VACCINE (3 - Pfizer risk 4-dose series) COVID-19 VACCINE (3 - Pfizer risk 4-dose series) [facility] Start: 08-19-2021 COVID-19 VACCINE (3 - Pfizer risk series) COVID-19 VACCINE (3 - Pfizer risk series) [facility] Start: 06-02-2021 Influenza vaccination INFLUENZA (#1) [facility] Start: 06-02-2020 Influenza vaccinatio n given Sequential Influenza Vaccine (#1) [facility] Start: 10-15-2019 End: 10-15-2019 Office Visit 10/15/2019 Office Visit Wound Care [facility] Start: 09-04-2019 End: 09-04-2019 Hospital Encounter [facility] Comment on above: LEFT TOTAL ELBOW ART HROPLASTY WITH ULNAR NERVE RELEASE WITH ANTERIOR TRANSPOSITION, EXCISION RADIAL HEAD Start: 07-20-2019 ANNUAL PCP TEAM 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 TIFFANIE DISEASE VISIT ANNUAL PCP TEAM CHRONIC DISEASE VISIT [facility] Start: 06-02-2019 Influenza vaccinatio n given [facility] Start: 2019 RSV Vaccine (1 - 1-d ose 60+ series) RSV Vaccine (1 - 1-dose 60+ series) [facility] Start: 04-30-2019 End: 04-30-2019 Office Visit 04/30/2019 Office Visit Wound Care [facility] Start: 02-27-2019 End: 02-27-2019 Hospital Encounter [facility] Comment on above: RIGHT TOTAL ELBOW AR THROPLASTY, ULNAR NERVE RELEASE WITH ANTERIOR TRANSPOSITION, RADIAL HEAD EXCISION Start: 02-21-2019 End: 02-21-2020 XR Cervical Spine with Flexion and Extension 6+ Views XR Cervical Spine with Flexion and Extension 6+ Views Imaging Routine Pre-op exam Expected: 02/21/2019, Expires: 02/21/2020 [facility] Comment on above: Expected: 02/21/2019 , Expires: 02/21/2020 Start: 2009 Administration of herpes zoster vaccine Zoster Vaccines (1 of 2) [facility] Start: 2009 Screening for malign ant neoplasm of colon [facility] Start: 2009 SHINGRIX VACCINE (1 of 2) SHINGRIX VACCINE (1 of 2) [facility] Start: 2004 COLOGUARD (FIT-DNA) COLOGUARD (FIT-D NA) [facility] Start: 2004 Colonoscopy COLONOSCOPY [facility] Start: 2004 COLORECTAL CANCER SCREENING COLORECTAL CANCER SCREENING [facility] Start: [address] COLONOGRAPHY [facility] Start: 2004 FECAL OCCULT BLOOD FECAL OCCULT BLOO D [facility] Start: 2004 Screening for malign ant neoplasm of colon [facility] Start: 2004 SIGMOIDOSCOPY SIGMOIDOSCOPY [facility] Start: 1999 Mammography [facility] Start: 1999 Screening for malign ant neoplasm of breast [facility] Start: 1989 HPV TESTING HPV TESTING [facility] Start: 1989 Screening for malign ant neoplasm of cervix [facility] Start: 1980 PAP TESTING PAP TESTING [facility] [facility] Start: 1980 Screening for malign ant neoplasm of cervix [facility] Start: 1978 SHINGRIX VACCINE (1 of 2) SHINGRIX VACCINE (1 of 2) [facility] Start: 1978 Urine microalbumin profile [facility] Start: 1977 Annual PCP Team Machine Stuffer tiffanie Disease Visit Annual PCP Team Chronic Disease Visit [facility] Start: 1977 Anxiety Screening Anxiety Screening [facility] Start: 1977 BP CONTROLLED (<130/80) BP CONTROLLE D (<130/80) [facility] Start: 1977 Depression Screening Depression Scre ening [facility] Start: 1977 Hepatitis B surface antibody level LDL CHOLESTEROL [facility] Start: 1977 Hepatitis C antibody , confirmatory test Hepatitis C Screening [facility] Start: 1977 HIV SCREENING HIV SCREENING [facility] Start: 1977 HIV screening HIV Screening [facility] Start: 1977 SPIROMETRY SPIROMETRY [facility] Start: 1975 COVID-19 Vaccine (1 of 2) COVID-19 Vaccine (1 of 2) [facility] Start: 1975 ONE PNEUMOVAX PRIOR TO AGE 65 ONE PNEUMOVAX PRIOR TO AGE 65 [facility] Start: 1974 HIV screening HIV Screening [facility] Start: 1971 Adolescent depressio n screening assessment Depression Screening (PHQ9) [facility] Start: 1970 Screening for malign ant neoplasm of cervix Cervical Cancer Screening [facility] Start: 1969 3 comp foot exam completed DIABETIC FOOT EXAM [facility] Start: 1969 Albumin DL <= 20 mg/ L mass conc (U) URINE MICROALBUMIN [facility] Start: 1969 Diabetic foot examination [facility] Start: 1969 Glaucoma screening Dilated Retinal E xam [facility] Start: 1969 Hepatitis B screening URINE ALBUMIN:CREATININE RATIO [facility] Start: 1969 Hepatitis C antibody , confirmatory test DILATED RETINAL EXAM [facility] Start: 1969 Ophthalmic examinati on and evaluation Ophthalmology Exam [facility] Start: 1965 PNEUMOCOCCAL (1 - PCV) PNEUMOCOCCAL (1 - PCV) [facility] Start: 1965 Pneumococcal vaccination [facility] Start: 1965 Pneumococcal Vaccine : 65+ (1 of 2 - PCV) Pneumococcal Vaccine: 65+ (1 of 2 - PCV) [facility] Start: 1964 Hemoglobin A1c measurement HbA1C [facility] Start: 1964 Hemoglobin A1c/Hemoglobin.total in Blood HBA1C [facility] Start: 1962 History and physical examination, annual for health maintenance Wellness Visit [facility] Start: 1959 Hemoglobin A1c/Hemoglobin.total mass fraction (Bld) A1C [facility] Start: 1959 Hepatitis C antibody , confirmatory test HEPATITIS C SCREENING [facility] Start: 1959 Protein mass conc [facility]ammogram [facility] Start: 1959 Screening for malign ant neoplasm of cervix PAP SMEAR [facility] Start: 1959 Screening for malign ant neoplasm of colon [facility] Start: 1959 Screening mammography Mammogram [facility] Start: 1959 [facility] Comment on above: Ordered: 02/20/2019 Ordered: 08/26/2019 Anaerobic microbial culture Tissue Anaerobic Culture Microbiology Routine Skin ulcer of elbow with fat layer exposed ([facility]) 10/08/2019 11:20 AM EST [facility] End: 06-17-2025 BD DXA TRABECULAR BONE SCORE (TBS) BD DXA TRABECULAR BONE SCORE (TBS) Radiology Routine Postmenopausal osteoporosis of multiple sites 1 Occurrences starting 05/18/2024 until 06/17/2025 [facility] Comment on above: 1 Occurrences starti ng 05/18/2024 until 06/17/2025 End: 06-17-2025 DXA Skeletal system.axial Views for bone density DXA-AXIAL SKELETON Radiology Routine Postmenopausal osteoporosis of multiple sites 1 Occurrences starting 05/18/2024 until 06/17/2025 [facility] Comment on above: 1 Occurrences starti ng 05/18/2024 until 06/17/2025 End: 06-17-2025 DXA-FOREARM SKELETON DXA-FOREARM SKELETON Radiology Routine Postmenopausal osteoporosis of multiple sites 1 Occurrences starting 05/18/2024 until 06/17/2025 [facility] Work Phone: Comment on above: 1 Occurrences starti ng 05/18/2024 until 06/17/2025 Tissue culture Tissue Aerobic C ulture Microbiology Routine Skin ulcer of elbow with fat layer exposed (H[facility]) 10/08/2019 11:20 AM EST [facility] XR Cervical Spine wi th Flexion and Extension 6+ Views XR Cervical Spine with Flexion and Extension 6+ Views Imaging Routine Pre-op exam 02/21/2019 1:43 PM EDT [facility] End: 06-17-2024 XR Hand - bilateral PA and Lateral and Oblique XR HAND GENERAL 3V PA/LAT/OBL BILATERAL Radiology Routine Trigger middle finger of right hand Bilateral hand pain 1 Occurrences starting 05/18/2024 until 06/17/2024 [facility] Comment on above: 1 Occurrences starti ng 05/18/2024 until 06/17/2024 XR Hand - bilateral PA and Lateral and Oblique XR HAND GENERAL 3V PA/LAT/OBL BILATERAL Radiology Routine Trigger middle finger of right hand Bilateral hand pain 06/06/2024 9:32 AM EDT [facility] Work Phone: [facility] Immunizations Immunization Date Immunization Notes Care Provider [facility] 05-30-2020 influenza, injectabl e, quadrivalent, preservative free Pepe Carter MD Work Phone: [facility] 05-30-2020 influenza virus vacc ine, unspecified formulation Pepe Carter MD Work Phone: [facility] 09-03-2018 Influenza, injectabl e, Madin Felicitas Canine Kidney, preservative free, quadrivalent Pepe Carter MD Work Phone: [facility] Payers Date Payer Category Payer Medicare (Managed Care) [employer] MEDICARE ADVANTAGE [id number] 2021 Medicare HU[employer]NA MEDICARE HU[employer]NA GOLD PLUS [id number] 2021-Present [phone] [address] [address] [place] [address] O [id number] 2021 Medicare [id number]. [id number] 2018 Unknown ANTHEM ANTHEM BLUE/PREF/HMO/PPO [id number] 2018-Present [id number]. [id number] 2018 Unknown [id number] 2018 Unknown [id number] 2018 Unknown ANTHEM ANTHEM BLUE/PREF/HMO/PPO [id number] 2018-Present [id number]. [id number] 1959 Medicare [id number] 1959 Unknown [id number] 2.0.1.673726.3.579.2. 902 1959 Unknown [id number] 2.840.1.040080.3.579.2. 90 1959 Unknown [id number] 2.840.1.436292.3.579.2. 90 1959 Unknown [id number] 2.840.1.363834.3.579.2. 90 1959 Unknown [id number] 2.16840.1.971551.3.579.2. 90 1959 Unknown [id number] 2.16840.1.981879.3.579.2. 902 1959 Unknown [id number] 2.16840.1.818078.3.579.2. 902 1959 Unknown [id number] 2.16.840.1.941776.3.579.2. 902 1959 Unknown [id number] 2.16.840.1.254159.3.579.2. 900 1959 Unknown [id number] 2.16.840.1.632275.3.579.2. 593 1959 Unknown [id number] 2.16.840.1.213208.3.579.2. 593 1959 Unknown [id number] 2.16.840.1.218131.3.579.2. 593 1959 Unknown [id number] 2.16.840.1.242425.3.579.2. 593 1959 Unknown [id number] 2.16.840.1.343000.3.579.2. 593 1959 Unknown [id number] 2.16.840.1.232788.3.579.2. 593 1959 Unknown [id number] 2.16.840.1.835315.3.579.2. 593 1959 Unknown [id number] 2.16840.1.478145.3.579.2. 593 1959 Unknown [id number] 2.16840.1.944008.3.579.2. 593 1959 Unknown [id number] 2.16.840.1.506814.3.579.2. 1259 1959 Unknown [id number] 2.16.840.1.864311.3.579.2. 1259 1959 Unknown [id number] 2.16.840.1.466956.3.579.2. 1259 1959 Unknown [id number] 2.16.840.1.895161.3.579.2. 1259 1959 Unknown [id number] 2.16.840.1.277823.3.579.2. 1259 1959 Unknown [id number] 2.16.840.1.956674.3.579.2. 1259 Social History Date Type Detail Facility Start: 02-21-2019 End: 05-18-2024 Tobacco smoking status NHIS Never smoker [facility] Work Phone: Start: 02-21-2019 History SDOH Alcohol Frequency 1 [facility] Start: 1960 Sex Assigned At Not on file [facility] Start: 08-28-2019 End: 09-05-2019 Alcohol intake Lifetime non-drinker (finding) [facility] Start: 12-18-2021 End: 08-11-2022 Exposure to SARS-CoV-2 (event) Not sure [facility] Start: 04-09-2020 End: 05-18-2024 Tobacco use and exposure Never used [facility] Start: 07-26-2021 End: 05-18-2024 Alcohol intake Current non-drinker of alcohol (finding) [facility] Start: 1960 Sex Assigned At Female [facility] Start: 12-20-2021 End: 12-30-2021 Exposure to SARS-CoV-2 (event) Unable to assess [facility] Start: 07-26-2021 End: 02-20-2023 History of Social function [facility] Start: 07-26-2021 End: 02-20-2023 Tobacco use panel [facility] Adult Depression Screening Assessment 3 [facility] Start: 01-06-2021 Gender identity Identifies as female gender (finding) [facility] Start: 01-06-2021 Sexual orientation Heterosexual (fin ding) [facility] Tobacco smoking status NHIS Tobacco smoking consumption unknown [facility] NEGATED: Highlighted rowStart: NINF History of tobacco use Passive smoker [facility] Medical Equipment Procedure Code Equipment Code Equipment Origin al Text Equipment Identifier Dates Cement Bone Anti biotic Simplex P W/Tobramycin Single Dose - [id number] Start: 02-27-2019 Cement Bone Anti biotic Simplex P W/Tobramycin Single Dose - [id number] Start: 02-27-2019 Plug 10mm Cement Sm Diameter - [id number], [id number]_[facility] FDA Start: 02-27-2019 Component 3in Ul na Plasma Xsm Rt C/M - [id number], [id number] FDA Start: 02-27-2019 Component 4in Hu meral Xsm C/M - [id number] , [id number] FDA Start: 02-27-2019 Cement Bone Anti biotic Simplex P W/Tobramycin Single Dose - [id number] Start: 09-04-2019 Plug 8mm Cement Sm Diameter - [id number] Start: 09-04-2019 Plug 8-10mm Sm I m Canal - [id number] Start: 09-04-2019 Alicia/Pillo To charis Elbow Interchangeable Humeral Assembly Extra Small 4 Inch Length [id number] Start: 09-04-2019 [place]/Munirrey T otal Elbow Interchangeable Ulnar Assembly Extrasmall Left 3 Inch [id number] Start: 09-04-2019 Plug 8-10mm Sm I m Canal - [id number] Start: 09-04-2019 [id number] Start: 11-18-2016 End: 08-11-2022 Comment on above: Substitute equivalent syringe/needles fo r weekly sq methotrexate To use with Methotre xate Sodium injection. 1ml weekly SQ Clinical Notes 12-29-2021 to 07-11-2024 Magdalena Young, PT - 07/11/2024 9:00 AM Pepe Hernandez MD - 05/18/2024 10:20 AM EDTPatient InstructionsTelephone Encounter - Sandra Huerta MA - 05/16/2024 8:52 AM EDTPatient Instructions Note Date & Type Note Facility 07-11-2024 History of Present illness Narrative Physical Therapy Evaluation Visit Patient Name: Elsa Catalan Today's Date: 07/11/2024 Encounter Diagnoses Name Primary? Right hip pain Yes Right leg weakness Difficulty walking Visit number: 1 Timed Code Treatment Minutes: 60 minutes Total Treatment Time: 60 minutes Time In: 0900 Time Out: 1000 History: Pt. Presents to PT PO ORIF right femur. DOS: 06/27/24. Pt. Fell down steps resulting in clean break of her right femur on 06/27/24. Pt. Presents to PT in Wheelchair due to difficulty walking with assistive device. Pt has a FWW at home. Pt. Was in [facility] for 12 days. Pt. Reports of no precautions and is allowed to put full weight onto right LE. Pt. Has been walking in nursing with FWW and PT up to 25 feet. Pt is having difficulty lifting right hip greater than 90 degrees. Precautions: No precautions, Subjective Pain: 06/11 Objective: PT Evaluation (07/11/24) Right hip AROM: flexion 80 degrees Right hip PROM: flexion 100 degree limited to pain/tightness, abduction 25 deg Flexibility: quadriceps and hamstring muscle tightness Strength: right LE grossly 3-/5 in all planes Functional: moderate use of UE with sit to stand Gait: able to walk with FWW for short distances, Palpation: incision site healing well, increased quadriceps muscle tightness Treatment: PT evaluation (20 minutes) Education: HEP education with demonstration, Educated on Eval Findings and POC Manual Therapy:(12 minutes) right thigh MFR, hip PROM flexion, abduction Passive ROM, Joint mobilization, Soft Tissue Mobilization, Myofascial Release, Muscle Energy Technique, Neural Mobilization, Myofascial Cupping, Dry Needling, IASTM, and Scar mobilization Therapeutic Exercise: (16 minutes) exercises in grid Strength, Endurance, Flexibility, ROM, HEP, Neural Mobilization, Power, and Core Stability Therapeutic Activity: Exercises to improve dynamic activities, functional tasks, functional mobility to return to prior activity level Gait Training: (10 minutes) pt. Walked with FWW with CGA for 2x 30 foot walks Neuromuscular re-education: Balance Training, Muscle Facilitation, Dynamic Stability, Core Stabilization, and Blood Flow Restriction Training (BFRT) Modalities: Heat, Ice, Electrical Stimulation, Ultrasound, Cervical Mechanical Traction, Lumbar Mechanical Traction, Iontophoresis, and Fluidotherapy Assessment: Pt. Has participated in 1 PT session with start of POC on 07/11/24 for right femur ORIF. Pt. Will benefit from skilled PT services. PT treatment to focus on gait training, LE exercises to help her return to PLOF. Outcome Measure: Short Term Goal: To be met in 2 weeks Goal 1: Pt to be instructed in home exercise program. [employer] Goals: To be met in 10 weeks Goal 1: Pt to report independence and compliance with home program. Goal 2: Pt. Will report of 0/10 right hip pain while walking/standing for long periods of time to return to PLOF. Goal 3: Pt will demonstrate 115 or greater right hip flexion ROM to help her functional mobility and return to PLOF. Goal 4: Pt. Will demonstrate 5/5 right hip strength grossly in all planes to allow her to walk/stand for long periods of time to help improve her functional mobility and return to PLOF. Goal 5: Pt. Will demonstrate normal gait pattern with LRAD for greater than 300 feet to help improve her functional mobility. Goal 6: Pt. Will demonstrate normal right LE muscle flexibility to help improve her functional mobility and quality of life. Pt will benefit from skilled PT for 1-2x/week from 07/11/24 to 09/19/24 to address the above impairments. I hereby deem this POC medically necessary. Please sign below. Date: documented in this encounter [facility] 06-06-2024 Note HNO ID: [id number] Author: MAGNOLIA NEWMAN RT(R) Service: ? Author Type: Technologist Type: Progress [...] PATIENT PRESENTS WITH AN IMPLANTABLE OR ATTACHED LAB ASSISTANT: No RADIOLOGY DEPARTMENT: General X-ray: Exam(s) Completed: Upper Extremity X-Ray(s): Hand, bilateral PERIPHERAL IV DATA: Not applicable SIGNED BY: RT Theodora(R) June 06, 2024 9:32 AM [facility] 05-18-2024 History of Present illness [...] 15, crp 0.7, vitamin D 34.8, vitamin a54-5201;negative quantiferon tb; Patient's request for medication is [...] start fall precautions, see pain clinic for retirement pain recommendations/due for back injections, see neurosurgeon L5-S1 surgery, improved with prednisone/take for flares morgan, follow up with UE/hand ortho/postponing R shoulder/wrist surgeries, 40mg kenalog IM 09/16/15, f/u with GI for GI issues eval, much improved with rinvoq daily/received by [employer], continue sq 1ml once every other week [...] visit supportive care, see pain clinic for retirement pain recommendations/due for back injections, see neurosurgeon/due [...] asthma, much improved with rinvoq daily/received by [employer], continue sq 1ml once every other week injections methotrexate (HOLD 1-2weeks after vaccines), ssz 500mg 3times a day, daily arava, OFF plaquenil, prozac and f/u with PCP for adjustment, nightly and prn wrist splints, PT exercises for contractures, eyedrops per ophthalmology 02/20/23:due for bmd after 11/27/22. [facility] 11/27/20 BMD osteopenia. taking sulfasalazine tab [...] visit supportive care, see pain clinic for commissioning engineer pain recommendations/due for back injections, see neurosurgeon/due [...] worsens asthma, rinvoq daily/restart when received by [employer], continue sq 1ml once every other week [...] visit supportive care, see pain clinic for commissioning engineer pain recommendations/due for back injections, see neurosurgeon/due [...] upper back, due to see surgery. Had Otonomy 07/01/21, 07/22/21. wants to return to xeljanz [...] visit supportive care, see pain clinic for retirement pain recommendations/due for back injections, see neurosurgeon/due [...] for possible surgery eval. Had BMD in [facility], no response. Saw pain clinic and [...] Almanzar is admitting pt to hospital in [place] to debride wound she has on her [...] pain. 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 [place] better on xeljanz and did not have [...] buttocks, right arm/bicep whole body flare . [place] great when taking xeljanz XR for two [...] with prozac (started nexium). 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: 05/14/24 high glucose 237, esr [...] 15, crp 0.7, vitamin D 34.8, vitamin o39-6336;negative quantiferon tb; Patient's request for medication is as follows: 05/24/23 low potassium 3.4;high esr 35, crp 0.9;normal rest of cbc, cmp, vitamin D 41.5, vitamin b02-6771; 02/16/23 high glucose 260(328), esr 27 (60);normal rest of cmp, cbc, crp<0.3, (3), vitamin D 42.3; 07/29/22 high esr 60 (30), crp 3 (0.7), glucose 328;normal rest of cmp, cbc, vitamin D 36.8; 12/28/21 low potassium 3.3;high esr 30 (44), glucose 339 (480);NL rest of cbc, cmp, vitamin s11-0052, vitamin D 31.5;negative quantiferon tb, hepatitis panel [...] of cmp, cbc, vitamin D 43.5, vitamin c69-4078;negative quantiferon tb; [facility] 11/27/20 BMD osteopenia L1/L3/L4 1.102 g/cm2, tscore-More than half of todays over 40 minute [id number] office visit was spent in counselling/coordination of care, zscore2;L fem neck 0.808g/cm2, tscreo-0.4, zscore1;Total L hip 0.946g/cm2, tscore 0, zscore1.1;R fem neck 0.662g/cm2, tscore-1.7, zscore-0.3, Total R hip 0.781g/cm2, tscore-1, zscore0.3;L foreamr 0.505g/cm2, tscore-1.2, zscore0.3; FRAX major osteoporotic fracture risk 11%;hip fracture risk 1.2%; [facility] 11/27/20 lumbar xrays-mild osteopenia. Significant disc [...] in diameter. 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 Had BMD in [facility]. saw pulm 11/2021, no rheumatoid arthritis associated ILD. Had COVID19 infection in 05/2022 treated with steroids and inhalers. 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 3rd grandchild (boy) 11/2022. [facility] 11/27/20 BMD osteopenia.Numbness of left 4th/5th [...] 15, crp 0.7, vitamin D 34.8, vitamin u12-3553;negative quantiferon tb; Patient's request for medication is [...] start fall precautions, see pain clinic for commissioning engineer pain recommendations/due for back injections, see neurosurgeon L5-S1 surgery, improved with prednisone/take for flares morgan, follow up with UE/hand ortho/postponing R shoulder/wrist surgeries, 40mg kenalog IM 09/16/15, f/u with GI for GI issues eval, much improved with rinvoq daily/received by [employer], continue sq 1ml once every other week [...] of Care,spent more than 50% of the iwcn-nd-ooeu time in counseling, explanation of diagnosis, and planning of further management, I spent a total of 30 minutes on the date of the service which included preparing to see the patient, rsof-xx-gevo patient care, completing clinical documentation, obtaining and/or [...] (ID); (ortho);Dr.Douglas Schafer documented in this encounter [facility] 05-18-2024 Note HNO ID: [id number] Author: PEPE CARTER MD Service: ? Author [...] 15, crp 0.7, vitamin D 34.8, vitamin z58-5121;negative quantiferon tb; Patient's request for medication is [...] start fall precautions, see pain clinic for retirement pain recommendations/due for back injections, see neurosurgeon L5-S1 surgery, improved with prednisone/take for flares morgan, follow up with UE/hand ortho/postponing R shoulder/wrist surgeries, 40mg kenalog IM 09/16/15, f/u with GI for GI issues eval, much improved with rinvoq daily/received by [employer], continue sq 1ml once every other week [...] visit supportive care, see pain clinic for retirement pain recommendations/due for back injections, see neurosurgeon/due [...] asthma, much improved with rinvoq daily/received by [employer], continue sq 1ml once every other week injections methotrexate (HOLD 1-2 (more content not included)... [facility] 05-17-2024 Instructions Pepe Carter MD [...] the flow of saliva in many patients. Wann flavored sugarless tablets and sugar-free chewing gum [...] called punctal occlusion. In this procedure, an security researcher inserts small plugs into the tear ducts [...] be highly individualized. In virtually every major [facility] area, the [employer] is engaged in [...] usual activities immediately. documented in this encounter [facility] 05-16-2024 Telephone encounter Note Notified patient of below, verbal understanding. [facility] 05-16-2024 Miscellaneous Notes Notified patient of [...] 15, crp 0.7, vitamin D 34.8, vitamin k64-4417;negative quantiferon tb; Patient's request for medication is [...] Pepe Carter MD documented in this encounter [facility] 05-15-2024 Telephone encounter Note Please Call [...] 15, crp 0.7, vitamin D 34.8, vitamin t22-6013;negative quantiferon tb; Patient's request for medication is as follows: Requested Prescriptions Signed Prescriptions Disp Refills ergocalciferol 50,000 unit capsule (VITAMIN D2, DRISDOL) 16 capsule 0 Sig: (take by mouth with food twice a week, ONE CAPSULE ON MONDAY AND ONE ON MONDAY) FOR A TOTAL OF 8 WEEKS. Authorizing Provider: PEPE CARTER Prescription(s) as above. Please process accordingly. Pepe Carter MD [facility] 01-04-2024 Miscellaneous Notes Left below message [...] Lm regarding results and recommendations sent via [employer]. Please call patient. Thank you for the update. Sorry to hear about your discomfort. May hold rinvoq. If symptoms persist or worsen, please see primary care provider/ENT for further evaluation and care recommendations. Please notify office of progress update. Hope you feel better soon! Warm surinder, :) Elsa is calling Pepe Carter MD [...] calling: self Call patient at: on cell [phone] (home) [phone] (cell) Was an appointment scheduled: No Closing statement: Symptom Call: Thank you for calling [facility], your call is very important. A nurse will call in approximately 2-4 hours during business hours. If this is an emergency, please contact 911. Rose Subramanian documented in this encounter [facility] 11-23-2023 History of Present illness Narrative [...] visit supportive care, see pain clinic for commissioning engineer pain recommendations/due for back injections, see neurosurgeon/due [...] asthma, much improved with rinvoq daily/received by [employer], continue sq 1ml once every other week injections methotrexate (HOLD 1-2weeks after vaccines), ssz 500mg 3times a day, daily arava, OFF plaquenil, prozac and f/u with PCP for adjustment, nightly and prn wrist splints, PT exercises for contractures, eyedrops per ophthalmology 02/20/23:due for bmd after 11/27/22. [facility] 11/27/20 BMD osteopenia. taking sulfasalazine tab [...] visit supportive care, see pain clinic for retirement pain recommendations/due for back injections, see neurosurgeon/due [...] worsens asthma, rinvoq daily/restart when received by [employer], continue sq 1ml once every other week [...] Several hours minimal AM stiffness. COVID vaccine Peppercoin 07/01/21, 07/22/21. 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 3rd grandchild (boy) [...] visit supportive care, see pain clinic for retirement pain recommendations/due for back injections, see neurosurgeon/due [...] upper back, due to see surgery. Had Otonomy 07/01/21, 07/22/21. wants to return to [employer] [...] visit supportive care, see pain clinic for retirement pain recommendations/due for back injections, see neurosurgeon/due [...] for possible surgery eval. Had BMD in [facility], no response. Saw pain clinic and [...] Almanzar is admitting pt to hospital in [place] to debride wound she has on her [...] pill bottle. Working with PT. Reports pain /. Minimal Am stiffness. Not on diuretic, mvi, [...] pain. 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 [place] better on xeljanz and did not have [...] buttocks, right arm/bicep whole body flare . [place] great when taking xeljanz XR for two [...] with prozac (started nexium). 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: 05/24/23 low potassium 3.4;high esr 35, crp 0.9;normal rest of cbc, cmp, vitamin D 41.5, vitamin q35-0116; 02/16/23 high glucose 260(328), esr 27 (60);normal rest of cmp, cbc, crp<0.3, (3), vitamin D 42.3; 07/29/22 high esr 60 (30), crp 3 (0.7), glucose 328;normal rest of cmp, cbc, vitamin D 36.8; 12/28/21 low potassium 3.3;high esr 30 (44), glucose 339 (480);NL rest of cbc, cmp, vitamin w25-6368, vitamin D 31.5;negative quantiferon tb, hepatitis panel [...] of cmp, cbc, vitamin D 43.5, vitamin j97-1999;negative quantiferon tb; [facility] 11/27/20 BMD osteopenia L1/L3/L4 1.102 g/cm2, tscore-More than half of todays over 40 minute hpqk-wf-rrbk office visit was spent in counselling/coordination of care, zscore2;L fem neck 0.808g/cm2, tscreo-0.4, zscore1;Total L hip 0.946g/cm2, tscore 0, zscore1.1;R fem neck 0.662g/cm2, tscore-1.7, zscore-0.3, Total R hip 0.781g/cm2, tscore-1, zscore0.3;L foreamr 0.505g/cm2, tscore-1.2, zscore0.3; FRAX major osteoporotic fracture risk 11%;hip fracture risk 1.2%; [facility] 11/27/20 lumbar xrays-mild osteopenia. Significant disc [...] in diameter. 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 Had BMD in [facility]. saw pulm 11/2021, no rheumatoid arthritis associated ILD. Had COVID19 infection in 05/2022 treated with steroids and inhalers. 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 3rd grandchild (boy) 11/2022. [facility] 11/27/20 BMD osteopenia.Numbness of left 4th/5th [...] start fall precautions, see pain clinic for commissioning engineer pain recommendations/due for back injections, see neurosurgeon L5-S1 surgery, improved with prednisone/take for flares morgan, follow up with UE/hand ortho/postponing R shoulder/wrist surgeries, 40mg kenalog IM 09/16/15, f/u with GI for GI issues eval, much improved with rinvoq daily/received by [employer], continue sq 1ml once every other week [...] of Care,spent more than 50% of the flft-va-raus time in counseling, explanation of diagnosis, and planning of further management, I spent a total of 30 minutes on the date of the service which included preparing to see the patient, asad-fj-ljoz patient care, completing clinical documentation, obtaining and/or [...] (ID); (ortho);Dr.Douglas Schafer documented in this encounter [facility] 11-23-2023 Note HNO ID: [id number] Author: PEPE CARTER MD Service: ? Author [...] visit supportive care, see pain clinic for commissioning engineer pain recommendations/due for back injections, see neurosurgeon/due [...] asthma, much improved with rinvoq daily/received by [employer], continue sq 1ml once every other week injections methotrexate (HOLD 1-2weeks after vaccines), ssz 500mg 3times a day, daily arava, OFF plaquenil, prozac and f/u with PCP for adjustment, nightly and prn wrist splints, PT exercises for contractures, eyedrops per ophthalmology 02/20/23:due for bmd after 11/27/22. [facility] 11/27/20 BMD osteopenia. taking sulfasalazine tab [...] visit supportive care, see pain clinic for commissioning engineer pain recommendations/due for back injections, see neurosurgeon/due [...] worsens asthma, rinvoq daily/restart when received by [employer], continue sq 1ml once every other week injections methotrexate (HOLD 1-2weeks after vaccines), ssz 500mg 3times a day, daily arava, OFF plaquenil, prozac and f/u with PCP for adjustment, nightly and prn wrist splints, PT exercises for contractures, eyedrops per ophthalmology, 08/11/22:saw pulm 11/2021, no rheumatoid arthritis associated ILD. Had COVID19 infection in 05/2022 treated with (more content not included)... [facility] 11-22-2023 Instructions Pepe Carter MD [...] the flow of saliva in many patients. Wann flavored sugarless tablets and sugar-free chewing gum [...] called punctal occlusion. In this procedure, an security researcher inserts small plugs into the tear ducts [...] be highly individualized. In virtually every major [facility] area, the [employer] is engaged in [...] Website at [email or web address]. documented in this encounter [facility] 07-12-2023 Miscellaneous Notes Form faxed with confirmation. Form completed. Please process accordingly. Scan copy into [employer]. Notify patient when above completed. Recall in script when approved if needed. Thank you. Received refill request from [employer]. Form placed on your desk for signature. documented in this encounter [facility] 05-29-2023 Miscellaneous Notes patient has viewed the [facility] per [employer]. Please Call patient if [facility] note not read to review results/released to My Chart if tests completed at [facility]: Mildly low normal potassium- increase potassium intake, [...] of cbc, cmp, vitamin D 41.5, vitamin c91-7956; --- 02/16/23 high glucose 260(328), esr 27 (60);normal rest of cmp, cbc, crp<0.3, (3), vitamin D 42.3; documented in this encounter [facility] 08-11-2022 History of Present illness Narrative [...] visit supportive care, see pain clinic for commissioning engineer pain recommendations/due for back injections, see neurosurgeon/due [...] upper back, due to see surgery. Had Unveil vaccines 07/01/21, 07/22/21. wants to return to [employer] [...] visit supportive care, see pain clinic for retirement pain recommendations/due for back injections, see neurosurgeon/due [...] for possible surgery eval. Had BMD in [facility], no response. Saw pain clinic and [...] Almanzar is admitting pt to hospital in [place] to debride wound she has on her left elbow. Was in ED 10/12/19 for nonhealing LUE wound/now healed. Developed on LUE hematoma. Had EMG hematoma pressing on nerve. Still numbness and tingling L 4th/5th fingers. Off rheum meds x 3weeks, back on rheum meds/humira/arava/mtx. Likes the humira. reports pain 3/10. Minimal AM stiffness. Now on prozac 20mg [...] pain. 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 [place] better on xeljanz and did not have [...] buttocks, right arm/bicep whole body flare . [place] great when taking xeljanz XR for two [...] with prozac (started nexium). 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 TESTS:07/29/22 high esr 60 (30), crp 3 (0.7), glucose 328;normal rest of cmp, cbc, vitamin D 36.8; 12/28/21 low potassium 3.3;high esr 30 (44), glucose 339 (480);NL rest of cbc, cmp, vitamin e13-3540, vitamin D 31.5;negative quantiferon tb, hepatitis panel [...] of cmp, cbc, vitamin D 43.5, vitamin y66-5054;negative quantiferon tb; [facility] 11/27/20 BMD osteopenia L1/L3/L4 1.102 g/cm2, tscore-More than half of todays over 40 minute dmda-qd-hmxl office visit was spent in counselling/coordination of care, zscore2;L fem neck 0.808g/cm2, tscreo-0.4, zscore1;Total L hip 0.946g/cm2, tscore 0, zscore1.1;R fem neck 0.662g/cm2, tscore-1.7, zscore-0.3, Total R hip 0.781g/cm2, tscore-1, zscore0.3;L foreamr 0.505g/cm2, tscore-1.2, zscore0.3; FRAX major osteoporotic fracture risk 11%;hip fracture risk 1.2%; [facility] 11/27/20 lumbar xrays-mild osteopenia. Significant disc [...] in diameter. 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 Had BMD in [facility]. saw pulm 11/2021, no rheumatoid arthritis [...] Several hours minimal AM stiffness. COVID vaccine Peppercoin 07/01/21, 07/22/21. 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 3rd grandchild (boy) due 11/2022. Feels safe at home. Has enough food, supplies and medications. Overall uncomfortable but happy with rheum care. = supportive care, see pain clinic for commissioning engineer pain recommendations/due for back injections, see neurosurgeon/due [...] worsens asthma, rinvoq daily/restart when received by [employer], continue sq 1ml once every other week [...] of Care,spent more than 50% of the iilu-mi-vwtw time in counseling, explanation of diagnosis, and planning of further management, I spent a total of 30 minutes on the date of the service which included preparing to see the patient, zvqd-qd-wyrv patient care, completing clinical documentation, obtaining and/or [...] (ID); (ortho);Dr.Douglas Schafer documented in this encounter [facility] 08-11-2022 Instructions Pepe Carter MD - [...] the flow of saliva in many patients. Wann flavored sugarless tablets and sugar-free chewing gum [...] called punctal occlusion. In this procedure, an security researcher inserts small plugs into the tear ducts [...] be highly individualized. In virtually every major [facility] area, the [employer] is engaged in [...] Website at [email or web address]. documented in this encounter [facility] 08-01-2022 Miscellaneous Notes Pt was notified [...] 339 (480);NL rest of cbc, cmp, vitamin s23-6559, vitamin D 31.5;negative quantiferon tb, hepatitis panel [...] soft tissue swelling. documented in this encounter [facility] 07-29-2022 Miscellaneous Notes Labs are done. [...] these orders. Patient is enrolled in the [employer] free drug program. Thank you Requested Prescriptions Pending Prescriptions Disp Refills upadacitinib (RINVOQ) Tb24 tablet 90 tablet 3 Sig: Take 1 tablet (15 mg) by mouth once daily. Swallow whole; DO NOT crush, chew, or open. Hold if on antibiotics or ill. Hold 1weeks after vaccines. Please review and advise. David Wilson RPh documented in this encounter [facility] 07-27-2022 Miscellaneous Notes Patient has been scheduled as requested for 07/29/22. I spoke with Ms. Catalan and she is aware of all of the appointment details. Mary SUBRAMANIAN July 27, 2022 10:54 AM Please call and schedule nonfasting labs this month (active since 03/2022); Please send new script to [facility] if needed Notify office if not received. [...] get refills. This was done through the [facility] and encounter from 12/17/21 states approved through the end of the year. Patient had received a 3 month supply but no refills since then and she does not know who to contact. Patient has upcoming appointment on 08/11/2022. Pharmacy should not be [facility] - should be [facility]. Patient has been identified by name [...] [place]. Bettye Orr documented in this encounter [facility] 04-18-2022 Miscellaneous Notes Please notify patient Patient's request for medication is as follows: Signed Prescriptions Disp Refills gabapentin (NEURONTIN) 300 mg capsule 270 capsule 3 Sig: TAKE 10 CAPSULES BY MOUTH DIVIDED THROUGHOUT THE DAY EDE: No Authorizing Provider: JANEL CHI Prescription(s) as above. Please process accordingly. Janel Chi APRN.OFFICE ADMINISTRATOR Most recent Rheumatology visit: 12/30/2021 (with Janel Chi) Recent Office Visits - This Specialty 07/20/2018 APPOINTMENT CANCELLED Internal Medicine Fox Tomlinson MD Upcoming Rheumatology Appointments - Next 365 Days Visit Type Date Time Department [facility] 08/11/2022 9:20 AM [facility] CBC: CBC Latest Ref Rng & [...] Anastasiia Ballard MA documented in this encounter [facility] 12-30-2021 Instructions Janel Chi APRN.OFFICE ADMINISTRATOR - 12/30/2021 3:29 PM EDT May apply [...] the flow of saliva in many patients. Wann flavored sugarless tablets and sugar-free chewing gum [...] called punctal occlusion. In this procedure, an security researcher inserts small plugs into the tear ducts [...] be highly individualized. In virtually every major [facility] area, the [employer] is engaged in [...] Website at [email or web address]. documented in this encounter [facility] 12-30-2021 History of Present illness Narrative [...] hand pain Per Dr. 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 Had Unveil vaccines 07/01/21, 07/22/21. wants to return to [facility] since it did not cause lung issues vs humira/worsens breathing/asthma. More joint pain if stretching humira to every 3weeks. Still taking gabapentin. Reports pain 05/11. Moderate AM stiffness several hours. Nodule on L elbow. Numbness and tingling of 4th/5th fingers after L elbow surgery. Had BMD in [facility]. Feels safe at home. Has enough food, supplies and medications. Overall mildly uncomfortable but happy with rheum care = supportive care, see pain clinic for commissioning engineer pain recommendations/due for back injections, see neurosurgeon/due [...] 339 (480);NL rest of cbc, cmp, vitamin f10-7265, vitamin D 31.5;negative hepatitis panel except +hepB [...] the care of your patient. Janel Chi APRN.[facility] cc Pretty Fermin MD, MD Patient Instructions [...] the flow of saliva in many patients. Wann flavored sugarless tablets and sugar-free chewing gum [...] called punctal occlusion. In this procedure, an security researcher inserts small plugs into the tear ducts [...] be highly individualized. In virtually every major [facility] area, the [employer] is engaged in [...] the flow of saliva in many patients. Wann flavored sugarless tablets and sugar-free chewing gum [...] called punctal occlusion. In this procedure, an security researcher inserts small plugs into the tear ducts [...] be highly individualized. In virtually every major [facility] area, the [employer] is engaged in [...] 104 53 - 334 mg/dL Final MPA [place], Serum Date Value Ref Range Status 02/18/2011 1190 534 - 1267 mg/dL Final MPA Lambda, Serum Date Value Ref Range Status 02/18/2011 675 (H) 253 - 653 mg/dL Final [facility]PA [place]/Lambda Ratio Date Value Ref Range Status 02/18/2011 [...] 32.4 sec 28.5 documented in this encounter [facility] 12-29-2021 Miscellaneous Notes Pt identified by [...] 339 (480);NL rest of cbc, cmp, vitamin r46-0569, vitamin D 31.5;negative hepatitis panel except +hepB [...] soft tissue swelling. documented in this encounter [facility] Evaluation note Diagnosis Rheumatoid arthritis of [...] vitamin D deficiency [facility] Diagnosis Rheumatoid arthritis of multiple sites [...] abnormal blood chemistry [facility]* Diagnosis Chronic elbow pain, left documented in this encounter [facility] note* Diagnosis Rheumatoid arthritis of multiple [...] for pulmonary tuberculosis [facility]* Diagnosis Rheumatoid arthritis of multiple sites [...] vitamin D deficiency [facility] Diagnosis Rheumatoid arthritis of multiple sites without organ or system involvement with positive rheumatoid factor (HCC)- Primary Elevated LFTs Other abnormal blood chemistry Anemia of chronic disease Anemia of other chronic disease Elevated sed rate Elevated sedimentation rate Elevated C-reactive protein (CRP) Vitamin D deficiency Unspecified vitamin D deficiency [facility]* Diagnosis Lumbar foraminal stenosis Spinal stenosis, [...] protein (CRP) Cervicalgia [facility] Diagnosis Lumbar foraminal stenosis Spinal stenosis, [...] Pain in limb [facility] Right hip pain- Primary Pain in joint, pelvic region and thigh Right leg weakness Muscle weakness (generalized) Difficulty walking Difficulty in walking documented in this encounter [facility]* Diagnosis Right hip pain- Primary Pain in joint, pelvic region and thigh Right leg weakness Muscle weakness (generalized) Difficulty walking Difficulty in walking documented in this encounter [facility]* Diagnosis Right hip pain- Primary Pain in joint, pelvic region and thigh Right leg weakness Muscle weakness (generalized) Difficulty walking Difficulty in walking documented in this encounter [facility]* Diagnosis Right hip pain- Primary Pain in joint, pelvic region and thigh Right leg weakness Muscle weakness (generalized) Difficulty walking Difficulty in walking documented in this encounter [facility]* Diagnosis Right hip pain- Primary Pain in joint, pelvic region and thigh Right leg weakness Muscle weakness (generalized) Difficulty walking Difficulty in walking documented in this encounter [facility] for referral (narrative)* Diagnostic Procedure Only (Routine) - Closed Specialty Diagnoses / Procedures Referred By Contac t Referred To Contact XR IMAGING Diagnoses Chronic elbow pain, left Procedures XR ELBOW GENERAL 2V AP/LAT LT X-RAY ELBOW AP/LATERAL Pepe Carter MD [address] [place] [address] Xr Imaging Referral ID Status Reason Start Date Expiration Date V isits Requested Visits Authorized [id number] Closed Auto-Generate d Referral 07/26/2021 08/25/2022 1 1 [facility] for visit Narrative* Diagnostic Procedure Only (Routine) - Closed Specialty Diagnoses / Procedures Referred By Contac t Referred To Contact XR IMAGING Diagnoses Chronic elbow pain, left Procedures XR ELBOW GENERAL 2V AP/LAT LT X-RAY ELBOW AP/LATERAL Pepe Carter MD [address] [place] [address] Xr Imaging Referral ID Status Reason Start Date Expiration Date V isits Requested Visits Authorized [id number] Closed Auto-Generate d Referral 07/26/2021 08/25/2022 1 1 [facility] for visit Narrative* Diagnostic Procedure Only (Routine) - Closed Specialty Diagnoses / Procedures Referred By Contac t Referred To Contact XR IMAGING Diagnoses Trigger middle finger of right hand Bilateral hand pain Procedures XR HAND GENERAL 3V PA/LAT/OBL BILATERAL RADEX HAND MINIMUM 3 VIEWS Pepe Carter MD [address] [place] [address] [place] [address] Referral ID Status Reason Start Date Expiration Date V isits Requested Visits Authorized [id number] Closed Auto-Generate d Referral 05/18/2024 06/17/2025 1 1 [facility] for visit Narrative* Rehabilitation - Outpatient (Routine) - Authorized Specialty Diagnoses / Procedures Referred By Contac t Referred To Contact Physical Therapy Diagnoses Other osteoporosis with current pathological fracture, right femur, subsequent encounter for fracture with routine healing Procedures DC PHYSICAL THERAPY EVALUATION LOW COMPLEX 20 MINS Pretty Fermin MD [address] [place] [address] Phone: tel:[phone] fax: [facility] [address] [address] Phone: tel: fax: Referral ID Status Reason Start Date Expiration Date V isits Requested Visits Authorized [id number] Authorized 07/11/2024 08/11/2024 8 8 [facility] Summary Purpose Family History No Family History Records FoundNo Family History Records FoundNo Family History Records FoundNo Family History Records FoundNo Family History Records FoundNo Family History Records FoundNo Family History Records FoundNo Family History Records FoundNo Family History Records FoundNo Family History Records FoundNo Family History Records Found Advance Directives No Advanced Directives Records FoundDocuments on File Type Date Recorded Patient Certified Professional Ergonomist 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 Advance Directives and Livin g Will 02/21/2019 11:35 AM Documents on File Type Date Recorded Patient Certified Professional Ergonomist 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 Advance Directives and Livin g Will 02/27/2019 11:35 AM Latest Code Status on File Code Status Date Activated Date Inactivated Comments Full Code 02/27/2019 12:39 PM Documents on File Type Date Recorded Patient Certified Professional Ergonomist 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 Advance Directives and Livin g Will 04/23/2019 2:22 PM Latest Code Status on File Code Status Date Activated Date Inactivated Comments Full Code 02/27/2019 12:39 PM Documents on File Type Date Recorded Patient Certified Professional Ergonomist 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 Advance Directives and Livin g Will 09/04/2019 5:50 AM Latest Code Status on File Code Status Date Activated Date Inactivated Comments Full Code 09/04/2019 4:13 PM Full Code 02/27/2019 12:39 PM 09/04/2019 5:49 AM Documents on File Type Date Recorded Patient Certified Professional Ergonomist 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 Advance Directives and Livin g Will 10/12/2019 1:17 PM Latest Code Status on File Code Status Date Activated Date Inactivated Comments Full Code 10/12/2019 4:09 PM Full Code 09/04/2019 4:13 PM 10/12/2019 12:47 PM Documents on File Type Date Recorded Patient Certified Professional Ergonomist 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 Advance Directives and Livin g Will 04/01/2020 1:24 PM Latest Code Status on File Code Status Date Activated Date Inactivated Comments Full Code 10/12/2019 4:09 PM 04/08/2020 9:15 AM Documents on File Type Date Recorded Patient Certified Professional Ergonomist 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 Advance Directives and Livin g Will 04/01/2020 1:24 PM Latest Code Status on File Code Status Date Activated Date Inactivated Comments Full Code 10/12/2019 4:09 PM 04/08/2020 9:15 AM Full Code 09/04/2019 4:13 PM 10/12/2019 12:47 PM Full Code 02/27/2019 12:39 PM 09/04/2019 5:49 AM Documents on File Type Date Recorded Patient Certified Professional Ergonomist 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 Advance Directives and Livin g Will 09/04/2019 5:50 AM Latest Code Status on File Code Status Date Activated Date Inactivated Comments Full Code 09/04/2019 4:13 PM Documents on File Type Date Recorded Patient Certified Professional Ergonomist 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 Advance Directives and Livin g Will 08/28/2019 12:58 PM Documents on File Type Date Recorded Patient Certified Professional Ergonomist 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 Advance Directive(s) Advance Directive(s) 03/16/2021 12:22 PM Advance Directive(s) 03/15/2021 1:41 PM Advance Directive(s) 01/25/2021 2:47 PM Instructions * Patient Instructions* Sveta Silva, DO - 02/21/2019 12:46 PM EDT If your surgery date changes or you change your surgery date, please call us at [phone] TAKE YOUR BLOOD PRESSURE DAILY (EITHER WITH [...] Catalan Home Medication Instructions Prior to Surgery RICKI:[id number] Printed on:02/21/19 1243 Medication Information Take last dose on Take [...] medications that contain aspirin, such as Patricia Hopewell, Pepto- Bismol, Anacin), antiinflammatory medications such as Advil, Motrin, Ibuprofen, Naproxen, Aleve, Patricia Hopewell, Anacin, Diclofenac, Voltaren, Daypro, Etodolac, Ketoprofen, Piroxicam, Relafen, Nabumetone, etc. Also discontinue Vitamin C, Vitamin E, Navarre-3 Fatty Acid, Fish Oil or Lovaza, and [...] If the bleeding does not stop, call [facility] [phone] or go to the Emergency Room. Signs/Symptoms of Infection: If you have any fever, chills, nausea, vomiting or increased odor, drainage, pain or redness to thewound, call [facility] at [phone]. If after hours, contact your family physician [...] oz cooked 22 Luna 1 slice 3 Slovenian-style Luna (Back Luna) 1 slice 5-6 Eggs and Dairy Egg Large 6 Milk 1 cup 8 Cottage Cheese cup 15 Yogurt 1 cup 8-12 Polish Yogurt 6 oz 18 Soft Cheeses (Mozzarella, Brie) 1 oz 6 Medium Cheeses(Cheddar,Martiniquais) 1 oz 7-8 Hard Cheeses (Parmesan) 1 oz 10 Beans / Soy Tofu cup 10 Soy Milk 1 cup 6-10 Soy Beans cup cooked 14 Edamame cup 8-12 Most Beans (black, spear, lentils) cup cooked 7-10 Split Peas cup cooked 8 Nuts and Seeds Peanut Butter 2 Tablespoons 8 Peanuts cup 9 Almonds cup 8 Cashews cup 5 Pecans cup 2.5 Arapahoe Seeds cup 6 Pumpkin Seeds cup 19 [...] If the bleeding does not stop, call [facility] [phone] or go to the Emergency Room. Signs/Symptoms of Infection: If you have any fever, chills, nausea, vomiting or increased odor, drainage, pain or redness to thewound, call [facility] at [phone]. If after hours, contact your family physician [...] oz cooked 22 Luna 1 slice 3 Slovenian-style Luna (Back Luna) 1 slice 5-6 Eggs and Dairy Egg Large 6 Milk 1 cup 8 Cottage Cheese cup 15 Yogurt 1 cup 8-12 Polish Yogurt 6 oz 18 Soft Cheeses (Mozzarella, Brie) 1 oz 6 Medium Cheeses(Cheddar,Martiniquais) 1 oz 7-8 Hard Cheeses (Parmesan) 1 oz 10 Beans / Soy Tofu cup 10 Soy Milk 1 cup 6-10 Soy Beans cup cooked 14 Edamame cup 8-12 Most Beans (black, spear, lentils) cup cooked 7-10 Split Peas cup cooked 8 Nuts and Seeds Peanut Butter 2 Tablespoons 8 Peanuts cup 9 Almonds cup 8 Cashews cup 5 Pecans cup 2.5 Arapahoe Seeds cup 6 Pumpkin Seeds cup 19 [...] next appointment. Medical Supplies were ordered through [employer], if you have any questions regarding your supply order, please contact their office directly @ [phone]. High Blood Pressure: If your blood pressure [...] If the bleeding does not stop, call [facility] [phone] or go to the Emergency Room. Signs/Symptoms of Infection: If you have any fever, chills, nausea, vomiting or increased odor, drainage, pain or redness to thewound, call [facility] at [phone]. If after hours, contact your family physician [...] oz cooked 22 Luna 1 slice 3 Slovenian-style Luna (Back Luna) 1 slice 5-6 Eggs and Dairy Egg Large 6 Milk 1 cup 8 Cottage Cheese cup 15 Yogurt 1 cup 8-12 Polish Yogurt 6 oz 18 Soft Cheeses (Mozzarella, Brie) 1 oz 6 Medium Cheeses(Cheddar,Martiniquais) 1 oz 7-8 Hard Cheeses (Parmesan) 1 oz 10 Beans / Soy Tofu cup 10 Soy Milk 1 cup 6-10 Soy Beans cup cooked 14 Edamame cup 8-12 Most Beans (black, spear, lentils) cup cooked 7-10 Split Peas cup cooked 8 Nuts and Seeds Peanut Butter 2 Tablespoons 8 Peanuts cup 9 Almonds cup 8 Cashews cup 5 Pecans cup 2.5 Arapahoe Seeds cup 6 Pumpkin Seeds cup 19 [...] your current medications with the following changes: HosseinElsa Home Medication Instructions Prior to Surgery RICKI:[id number] Printed on:08/28/19 7381 Medication Information Take last dose on Take the morning of surgery Comment(s) adalimumab (HUMIRA) 40 mg/0.8 mL syringe Inject 40 mg under the skin every 14 (fourteen) days Reasons: rheumatoid arthritis. Stop today if not already stopped. Hold for six weeks after surgery or as directed by your creative project manager cholecalciferol, vitamin D3, (VITAMIN D3 ORAL) Take [...] stopped. Resume postop when ok with your creative project manager methotrexate 25 mg/mL injection 50 mg once [...] medications that contain aspirin, such as Patricia Hopewell, Pepto- Bismol, Anacin), antiinflammatory medications such as Advil, Motrin, Ibuprofen, Naproxen, Aleve, Patricia Hopewell, Pepto-Bismol, Anacin, Diclofenac, Voltaren, Daypro, Etodolac, Ketoprofen, Piroxicam, Relafen, Nabumetone, etc. Also discontinue Vitamin C, Vitamin E, Navarre-3 Fatty Acid, Fish Oil or Lovaza, and [...] measure Discharge Instructions * Instructions* Alyssia Faria, OFFICE ADMINISTRATOR - 02/26/2019 General Post-Operative Sheets for Dr. [...] the office to providea new prescription for order picker at the office and you will be notified when it is ready. Messages left for refills on or Monday may not be able to be given until that following Monday. No pain medication is refilled or prescribed over the weekend. Please keep this in mind when you start getting low on your medication. WITH THE NEW LAWS IN [place]ERNING THE PRESCIBED USE OF OPIODS WE [...] number at [facility] is: [phone]. - If you need to make a physical therapy appointment please call AT at: [phone] -If you leave a message after normal [...] on the weekends. If possible go to [facility] at [address] [place] [address] in [place]. POST OP INSTRUCTIONS - DR. ALMANZAR Activity [...] 911 documented in this encounter* Instructions* Marilyn Ramirez CNP - 09/04/2019 General Post-Operative Sheets for Dr. [...] the office to providea new prescription for order picker at the office and you will be notified when it is ready. Messages left for refills on or Monday may not be able to be given until that following Monday. No pain medication is refilled or prescribed over the weekend. Please keep this in mind when you start getting low on your medication. WITH THE NEW LAWS IN [place] THE PRESCIBED USE OF OPIODS WE [...] 5pm. - Dr. Almanzar's office number at [facility] is: [phone]. - If you need to make a physical therapy appointment please call [facility] at: [phone] -If you leave a message after normal [...] on the weekends. If possible go to [facility] at [address] [place] [address] in [place]. TOTAL ELBOW POST OP INSTRUCTIONS - DR. [...] drape. VAC dressing changes to be every M-W-F by [facility]. Pt to take pain medication 1 hour before dressing change. * Discharge Instr - Care Coordination* Gera York, FLEA - 10/14/2019 3:35 PM EST Home Health Care Services: [facility] P: [phone] F: [phone] * Additional Instructions* Marzena Wiley, OFFICE ADMINISTRATOR - 10/14/2019 General Post-Operative Sheets for Dr. [...] the office to providea new prescription for order picker at the office and you will be notified when it is ready. Messages left for refills on or Monday may not be able to be given until that following Monday. No pain medication is refilled or prescribed over the weekend. Please keep this in mind when you start getting low on your medication. WITH THE NEW LAWS IN [place] THE PRESCIBED USE OF OPIODS WE [...] 5pm. - Dr. Almanzar's office number at [facility] is: [phone]. - If you need to make a physical therapy appointment please call [facility] at: [phone] -If you leave a message after normal [...] on the weekends. If possible go to [facility] at [address] [place] [address] in [place]. POST OP INSTRUCTIONS - DR. ALMANZAR Activity [...] the office to providea new prescription for order picker at the office and you will be notified when it is ready. Messages left for refills on or Monday may not be able to be given until that following Monday. No pain medication is refilled or prescribed over the weekend. Please keep this in mind when you start getting low on your medication. WITH THE NEW LAWS IN [place] THE PRESCIBED USE OF OPIODS WE [...] number at [facility] is: [phone]. - If you need to make a physical therapy appointment please call [facility] at: [phone] -If you leave a message after normal [...] on the weekends. If possible go to [facility] at [address] [facility] in [place]. UPPER EXTREMITY REPAIR SURGERY POST OP INSTRUCTIONS [...] regular office hours or go to the [place] ER if after hours if you: -Signs [...] if you do not already have one, [phone]. 1ST POST OP APPT: 1ST PT APPT: [...] your doctor if you can take an hnfj-gsy-xqqtcld medicine. Take your pain medicine as soon [...] Log into your personal health record on [email or web address]://[email or web address] and enter M536 in the Education box to learn more about Nausea and Vomiting After Surgery documented in this encounter History of Present Illness * Rochelle Dewitt MD - 02/28/2019 12:57 PM EDT [facility] DAILY PROGRESS NOTE Assessment and Plan Elsa [...] prednisone at home, follows with rheum at [facility] Meds resumed Outpatient follow up Diabetes type 2, controlled, with retirement insulin use On metformin and lantus at [...] NOTE Patient Name: Elsa Catalan MR #: [id number] Hospital Course: No notes on file Assessment/Plan: [...] Right elbow xray completed at bedside by Needly. documented in this encounter* Rose Mendoza CNP - 04/23/2019 2:43 PM EDT Associated Order(s): Wound Debridement Post-Procedure Diagnose(s): Skin ulcer of elbow with fat layer exposed (HCC) WOUND CARE PROVIDER PROGRESS NOTE Patient Name: Elsa Catalan MR #: [id number] : 1960 ASSESSMENT, PLAN, & ORDERS: Goals [...] / Therapies: DSD prior to coming to [facility]. Severity: Full thickness, Duration: 02/27/19 Timing: [...] % 1-25% 04/23/2019 3:00 PM Granulation % 1-25%;[place] 04/23/2019 3:00 PM Exposed Structure None 04/23/2019 [...] to verify the correct patient, procedure, equipment, support manager and site/side marked as required Timeout performed: [...] HEAD EXCISION; Surgeon: Ayde Almanzar DO; Location: [facility] Main OR; Service: Orthopedic HYSTERECTOMY Still [...] file Gets together: Not on file Attends uatsdin service: Not on file Active member of [...] NOTE Patient Name: Elsa Catalan MR #: [id number] : 1960 ASSESSMENT, PLAN, & ORDERS: Goals [...] / Therapies: DSD prior to coming to [facility]. Severity: Full thickness, Duration: 02/27/19 Timing: [...] HEAD EXCISION; Surgeon: Ayde Almanzar DO; Location: [facility] Main OR; Service: Orthopedic HYSTERECTOMY Still [...] file Gets together: Not on file Attends uatsdin service: Not on file Active member of [...] NOTE Patient Name: Elsa Catalan MR #: [id number] POD # 1 - Pt HD stable, [...] Patient and family updated at bedside - [facility] following for medical management/appreciate recs Plan discussed with Dr. Almanzar. DISPO: Likely discharged home later today once seen by PT and stable per [facility] Subjective: Perpetual Assessment: POD #1 . Patient [...] reviewed Jackie Torres CNP Department of Surgery [phone] Also available on [employer] 08/26/19 8:13 AM * Meenakshi Lim RN [...] AVS and wheelchair downstairs. * Marzena Wiley, OFFICE ADMINISTRATOR - 10/14/2019 1:07 PM EST DAILY PROGRESS NOTE Patient Name: Elsa Catalan MR #: [id number] Hospital Course: No notes on file Assessment/Plan: [...] Marx MD - 10/14/2019 1:04 PM EST [facility] DAILY PROGRESS NOTE Assessment and Plan Elsa [...] which have been restarted Consider involving her Wood Carver Hand to discuss risks/benefits DM Lantus with sliding [...] PM Laboratory, Radiology, Medications and Transcriptions Ayde Wolf, DO - 10/14/2019 12:48 PM EST Elsa [...] 1:47 pm: GLORIA attempted to reach [facility] rep. Per his voice mail, he is out of the area this week. GLORIA called the [facility] office ([phone]) and spoke with Meeta. She stated that she has put a note on the case to request that it be expedited. 1:28 pm: GLORIA spoke with Susana at [facility]. Susana stated that she was currently reviewing case and needed to see if they were able to accept from a staffing perspective. Susana will provide response to GLORIA. 11:28 am: Wound vac order submitted and prescription faxed. GLORIA met with pt in pt's room. Pt reported that she thought that [facility] serviced her area. She believes that she utilized [facility] approximately 7 years ago. GLORIA checked with [facility] liaison, but [facility] does not service pt's home area. GLORIA made referral to [facility]. They report that they do service this [...] (Comment)(wound vac) HME Agency: Other (Comment)([facility]) * Sherrill Chung LISW - 10/13/2019 7:08 PM EST DISCHARGE PLAN PROGRESS NOTE Date: 10/13/2019 Time: 7:09 PM Patient Name: Elsa Catalan Date of : 1960 Sex: Female SW submitted clinicals [facility] for wound vac approval and will f/u on Monday re: outcome. Pt has [employer] insurance. NATHALIA will need to f/u with pt re: HH RN for wound vac/dressing change needs. She lives in [facility]. Discharge Readiness Expected Discharge Date: 10/14/19 Barriers to Discharge: Pre-certification CC Disposition D/C Disposition: Home Health Care Services Related to Current Admission?: Yes Agency/Destination: Other(TBD) HME: Other (Comment)(wound vac) HME Agency: Other (Comment)([facility]) * Ja Yang DO - 10/13/2019 3:29 PM EST [facility] DAILY PROGRESS NOTE Assessment and Plan Elsa [...] which have been restarted Consider involving her Wood Carver Hand to discuss risks/benefits DM Lantus with sliding [...] AM EST Dressing supplies ordered today through [facility] * Cathy Deleon RN - 10/08/2019 11:05 [...] NOTE Patient Name: Elsa Catalan MR #: [id number] : 1960 ASSESSMENT, PLAN, & ORDERS: Goals [...] / Therapies: DSD prior to coming to [facility]. Severity: Full thickness, Duration: 09/03/19 Timing: [...] to verify the correct patient, procedure, equipment, support manager and site/side marked as required Timeout performed: [...] HEAD EXCISION; Surgeon: Ayde Almanzar DO; Location: [facility] Main OR; Service: Orthopedic ARTHROPLASTY ELBOW TOTAL Left 09/04/2019 Procedure: LEFT TOTAL ELBOW ARTHROPLASTY WITH ULNAR NERVE RELEASE WITH ANTERIOR TRANSPOSITION, EXCISION RADIAL HEAD; Surgeon: Ayde Almanzar DO; Location: [facility] Main OR; Service: Orthopedic HYSTERECTOMY Still [...] file Gets together: Not on file Attends uatsdin service: Not on file Active member of [...] subsequent encounter Nusrat Marx MD [address] [place] [address] Specialty Diagnoses / Procedures Referred By Contac t Referred To Contact [facility] Diagnoses Abnormality of gait Procedures CONSULT TO PHYSICAL THERAPY PHYSICAL THERAPY EVALUATION HIGH COMPLEX 45 MINS Pepe Carter MD [address] [place] [address] [facility] [place] [address] [place] [address] Referral ID Status Reason Start Date Expiration Date Visits Requested Visits Authorized [id number] Pending Review Auto-Generat ed Referral 11/23/2023 11/22/2024 1 1 Specialty Diagnoses / Procedures Referred By Contac t Referred To Contact Orthopedics Diagnoses Trigger middle finger of right hand Bilateral hand pain Chronic elbow pain, right Procedures CONSULT TO ORTHOPAEDICS OFFICE/OUTPATIENT [facility] 60 MINUTES Pepe Carter MD [address] [place] [address] [place] [address] [place] [address] Referral ID Status Reason Start Date Expiration Date Visits Requested Visits Authorized [id number] Authorized PCP Requested Referral 05/18/2024 05/18/2025 1 1 Specialty Diagnoses / Procedures Referred By Contac t Referred To Contact XR IMAGING Diagnoses Trigger middle finger of right hand Bilateral hand pain Procedures XR HAND GENERAL 3V PA/LAT/OBL BILATERAL RADEX HAND MINIMUM 3 VIEWS Pepe Carter MD [address] [place] [address] [place] [address] Referral ID Status Reason Start Date Expiration Date Visits Requested Visits Authorized [id number] Authorized Auto-Generat ed Referral 05/18/2024 06/17/2025 1 1 Specialty Diagnoses / Procedures Referred By Contac t Referred To Contact XR IMAGING Diagnoses Postmenopausal osteoporosis of multiple sites Procedures DXA-AXIAL SKELETON Pepe Carter MD [address] [place] [address] [place] [address] Referral ID Status Reason Start Date Expiration Date Visits Requested Visits Authorized [id number] Authorized Auto-Generat ed Referral 05/18/2024 06/17/2025 1 1 Specialty Diagnoses / Procedures Referred By Contac t Referred To Contact XR IMAGING Diagnoses Postmenopausal osteoporosis of multiple sites Procedures DXA-FOREARM SKELETON DXA BONE DENSITY STUDY 1/>SITES APPENDICLR SKEL Pepe Carter MD [address] [place] [address] [place] [address] Referral ID Status Reason Start Date Expiration Date Visits Requested Visits Authorized [id number] Authorized Auto-Generat ed Referral 05/18/2024 06/17/2025 1 1 Additional Source Comments INFORMATION SOURCE (unrecogn ized section and content) DATE CREATED AUTHOR 03/28/2018 [facility] DATE CREATED AUTHOR AUTHOR'S ORGANIZ ATION 10/08/2019 [facility] DATE CREATED AUTHOR AUTHOR'S ORGANIZ ATION 10/14/2019 [facility] DATE CREATED AUTHOR AUTHOR'S ORGANIZ ATION 04/19/2020 [facility] DATE CREATED AUTHOR AUTHOR'S ORGANIZ ATION 04/24/2020 [facility] DATE CREATED AUTHOR AUTHOR'S ORGANIZ ATION 05/28/2021 [facility] DATE CREATED AUTHOR AUTHOR'S ORGANIZ ATION 09/18/2021 Angel Marksus [facility] DATE CREATED AUTHOR AUTHOR'S ORGANIZ ATION 09/19/2021 [facility] DATE CREATED AUTHOR AUTHOR'S ORGANIZ ATION 12/10/2022 [facility] DATE CREATED AUTHOR AUTHOR'S ORGANIZ ATION 06/08/2024 [facility] DATE CREATED AUTHOR AUTHOR'S ORGANIZ ATION 08/02/2024 [facility] EPIC Reason for Visit (unrecogniz ed section and [...] Comments Patient Question Reason Comments Follow Up Specialty Diagnoses / Procedures Referred By Jerad tavares Referred To Contact Physical Therapy Diagnoses Other osteoporosis with current pathological fracture, right femur, subsequent encounter for fracture with routine healing Procedures DC PHYSICAL THERAPY EVALUATION LOW COMPLEX 20 MINS Pretty Fermin MD [address] [place] [address] [address] [facility] [address] [place] [address] Referral ID Status Reason Start Date Expiration Date V isits Requested Visits Authorized [id number] Authorized 07/11/2024 08/11/2024 8 8 Sveta Silva, DO - 02/21/2019 12:53 PM HUSSAINAyde Coulter, DO - 02/27/2019 6:28 AM Sveta Mello, DO - 02/21/2019 12:53 PM Ayde Cnonell, DO - 09/04/2019 8:33 AM EST H&P Notes (unrecognized sect ion and content) Assessment and Plan 1. Pre-op exam Preoperative medical risk stratification indicates that the patient is at acceptable risk for elective/major surgery-02/27; RIGHT TOTAL ELBOW ARTHROPLASTY, ULNAR NERVE RELEASE WITH ANTERIOR TRANSPOSITION, RADIAL HEAD EXCISION AT [facility] OR [facility] pending laboratory/cervical spine x-ray series. Creatinine, Serum, [...] acceptable cardiac risk based on the 2014 [place] [employer]/[place] [employer] Association (ACC/AHA) guideline on Perioperative Cardiovascular [...] stress dose glucocorticoids are not indicated. 2017 [place] College [employer] Rheumatology/[place] Association of Hip and Knee Surgeons Guideline for the Perioperative Management of Antirheumatic Medication in Patients With Rheumatic Diseases Undergoing Elective Total Hip or Total Knee Arthroplasty. Arthritis Care & Research Vol. 69, No. 8, May 2017, pp 5988-1085 DOI 10.1002/acr.01643 9. Fibromyalgia Controlled on gabapentin take a.m. day of surgery. 10. PONV (postoperative nausea and vomiting) Otley use of pre/postoperative antiemetics recommended. 11. No contraindication to deep vein thrombosis (DVT) prophylaxis Deep venous thrombosis prophylaxis per primary service. Recommend: 2011 Antithrombotic therapy for VTE disease: Antithrombotic Therapy and Prevention of Thrombosis, 9th ed: [place] [employer]icians Evidence- Based Clinical Practice Guidelines. Chief Complaint Patient presents with Pre-operative Medical Risk Stratification History of Present Illness Elsa Catalan is a 58 y.o. female who presents for preoperative medical risk stratification consult at the request of Ayde Almanzar DO prior to 02/27; RIGHT TOTAL ELBOW ARTHROPLASTY, ULNAR NERVE RELEASE WITH ANTERIOR TRANSPOSITION, RADIAL HEAD EXCISION AT [facility] OR [facility]. Pt states she has rheumatoid arthritis in [...] (HCC) 02/21/2019 Sleep apnea, obstructive 02/20/2019 Stroke ([facility]) 02/21/2019 Past Surgical History: Procedure [...] Elsa Catalan Admit Date: [id number] MR #: [id number] : 1960 The H&P has been reviewed [...] WITH ANTERIOR TRANSPOSITION, RADIAL HEAD EXCISION AT [facility] OR MAIN pending laboratory/cervical spine x-ray series. Creatinine, Serum, [...] acceptable cardiac risk based on the 2014 [place] [employer]/[place] [employer] Association (ACC/AHA) guideline on Perioperative Cardiovascular [...] stress dose glucocorticoids are not indicated. 2017 [place] [employer] Rhe[employer]/[place] Association of Hip and Knee Surgeons Guideline for the Perioperative Management of Antirheumatic Medication in Patients With Rheumatic Diseases Undergoing Elective Total Hip or Total Knee Arthroplasty. Arthritis Care & Research Vol. 69, No. 8, May 2017, pp 0061-3058 DOI 10.1002/acr.87510 9. Fibromyalgia Controlled on gabapentin take a.m. day of surgery. 10. PONV (postoperative nausea and vomiting) Otley use of pre/postoperative antiemetics recommended. 11. No contraindication to deep vein thrombosis (DVT) prophylaxis Deep venous thrombosis prophylaxis per primary service. Recommend: 2011 Antithrombotic therapy for VTE disease: Antithrombotic Therapy and Prevention of Thrombosis, 9th ed: [place] [employer]icians Evidence- Based Clinical Practice Guidelines. Chief Complaint Patient presents with Pre-operative Medical Risk Stratification History of Present Illness Elsa Catalan is a 58 y.o. female who presents for preoperative medical risk stratification consult at the request of Ayde Almanzar DO prior to 02/27; RIGHT TOTAL ELBOW ARTHROPLASTY, ULNAR NERVE RELEASE WITH ANTERIOR TRANSPOSITION, RADIAL HEAD EXCISION AT [facility] OR [facility]. Pt states she has rheumatoid arthritis in [...] (HCC) 02/21/2019 Sleep apnea, obstructive 02/20/2019 Stroke (HCC) 02/21/2019 Past Surgical History: Procedure Laterality Date [...] Elsa Catalan Admit Date: [id number] MR #: [id number] : 1960 The H&P has been reviewed [...] of Dr. Almanzar prior to 09/04 at [facility], LEFT TOTAL ELBOW ARTHROPLASTY WITH ULNAR [...] many years duration follows with pcp and creative project manager on multiple dmards -IDDMII, several years, followed [...] 02/21/2019 Atrial fibrillation (HCC) 08/28/2019 Bleeding disorder ([facility]) 02/20/2019 Cancer ([facility]) 02/21/2019 CHF (congestive heart failure) ([facility]) 08/28/2019 Coronary artery disease 02/20/2019 Deep vein thrombosis ([facility]) 02/21/2019 Diabetes mellitus type I ([facility]) 02/21/2019 Edema 08/28/2019 Hard to intubate 02/21/2019 Heart murmur 08/28/2019 Heart valve disease 08/28/2019 History of blood transfusion 02/21/2019 History of cardiac cath 02/21/2019 History of echocardiogram 02/21/2019 History of stress test 02/20/2019 Malignant hyperthermia due to anesthesia 02/21/2019 Myocardial infarction (HCC) 02/21/2019 No blood products 02/21/2019 Pulmonary embolism ([facility]) 02/21/2019 Sleep apnea, obstructive 02/20/2019 Stroke ([facility]) 02/21/2019 Past Surgical History: Procedure Laterality Date ARTHROPLASTY ELBOW TOTAL Right 02/27/2019 Procedure: RIGHT TOTAL ELBOW ARTHROPLASTY, ULNAR NERVE RELEASE WITH ANTERIOR TRANSPOSITION, RADIAL HEAD EXCISION; Surgeon: Ayde Almanzar DO; Location: [facility] Main OR; Service: Orthopedic HYSTERECTOMY Still [...] 12 inches Recent Results (from the past 02654 hours) XR ELBOW RIGHT 3+ VIEWS (STANDARD) [...] COMPARISON: Right elbow radiographs 07/21/2016 from [facility]. FINDINGS: Three views of the [...] A nondisplaced fracture is considered less likely. [facility] Workstation ID: [id number] documented in this encounter INTERVAL HISTORY AND PHYSICAL Patient Name: Elsa Catalan Admit Date: MR #: [id number] : 1960 The H&P has been reviewed and the patient has been examined. I concur with the findings of the H&P. There are no significant changes. It is appropriate to proceed with the planned procedure. Ayde Almanzar DO 10/13/2019 9:03 AM [facility] HISTORY AND PHYSICAL Patient Name: Elsa Catalan : 1960 MR #: [id number] Admit Date: Physicians: Pretty Fermin MD (Family); [...] which have been restarted Consider involving her Wood Carver Hand to discuss risks/benefits DM Lantus with sliding scale insulin. Dose adjusted for this evening Hypothyroid Synthroid HLD Statin Admitted From: Home Medication Reconciliation: Verified Code Status: Full Code Quality Measures DVT Prophylaxis: Ambulate - lovenox if stay prolonged/ok with ortho Hickey Catheter: none Disposition Outpatient Testing: NA Chief Complaint Non healing wound History of Present Illness Patient was directed to [place] for admission per her orthopedic surgeon. She [...] HEAD EXCISION; Surgeon: Ayde Almanzar DO; Location: [facility] Main OR; Service: Orthopedic ARTHROPLASTY ELBOW TOTAL Left 09/04/2019 Procedure: LEFT TOTAL ELBOW ARTHROPLASTY WITH ULNAR NERVE RELEASE WITH ANTERIOR TRANSPOSITION, EXCISION RADIAL HEAD; Surgeon: Ayde Almanzar DO; Location: [facility] Main OR; Service: Orthopedic HYSTERECTOMY Still [...] Name: Elsa Catalan Admit Date: MR #: [id number] : 1960 The H&P has been reviewed [...] WITH MANIPULATION UNDER ANESTHESIA on 04-08-20 at [facility]. Patient states she had a left [...] failed other treatments. Based on questioning at [facility] - patient has no current signs or [...] Diagnosis Date Noted Anemia 02/21/2019 Angina pectoris ([facility]) 02/21/2019 Arrhythmia 02/21/2019 Atrial fibrillation ([facility]) 08/28/2019 Bleeding disorder ([facility]) 02/20/2019 Cancer ([facility]) 02/21/2019 CHF (congestive heart failure) ([facility]) 08/28/2019 Coronary artery disease 02/20/2019 Deep vein thrombosis ([facility]) 02/21/2019 Diabetes mellitus type I ([facility]) 02/21/2019 Edema 08/28/2019 Hard to intubate 02/21/2019 Heart murmur 08/28/2019 Heart valve disease 08/28/2019 History of blood transfusion 02/21/2019 History of cardiac cath 02/21/2019 History of echocardiogram 02/21/2019 History of stress test 02/20/2019 Malignant hyperthermia due to anesthesia 02/21/2019 Myocardial infarction ([facility]) 02/21/2019 No blood products 02/21/2019 Pulmonary embolism ([facility]) 02/21/2019 Sleep apnea, obstructive 02/20/2019 Stroke ([facility]) 02/21/2019 Past Surgical History: Procedure Laterality Date ARTHROPLASTY ELBOW TOTAL Right 02/27/2019 Procedure: RIGHT TOTAL ELBOW ARTHROPLASTY, ULNAR NERVE RELEASE WITH ANTERIOR TRANSPOSITION, RADIAL HEAD EXCISION; Surgeon: Ayde Almanzar DO; Location: [facility] Main OR; Service: Orthopedic ARTHROPLASTY ELBOW TOTAL Left 09/04/2019 Procedure: LEFT TOTAL ELBOW ARTHROPLASTY WITH ULNAR NERVE RELEASE WITH ANTERIOR TRANSPOSITION, EXCISION RADIAL HEAD; Surgeon: Ayde Almanzar DO; Location: [facility] Main OR; Service: Orthopedic COLONOSCOPY HYSTERECTOMY Still has ovaries INCISION AND DRAINAGE UPPER EXTREMITY Left 10/13/2019 Procedure: INCISION AND DRAINAGE LEFT ELBOW WITH WOUND VAC APPLICATION; Surgeon: Ayde Almanzar DO; Location: [facility] Main OR; Service: Ortho-Robotics JOINT REPLACEMENT [...] 14.5 inches Recent Results (from the past 20593 hours) XR CHEST PA/AP 09/05/2019 (Final) Status: [...] is seen. Impression No acute cardiopulmonary abnormality. [employer] Workstation ID: [id number] A copy of this [...] of Dr. Almanzar prior to 09/04 at [facility], LEFT TOTAL ELBOW ARTHROPLASTY WITH ULNAR [...] many years duration follows with pcp and creative project manager on multiple dmards -IDDMII, several years, followed [...] (HCC) 02/21/2019 Sleep apnea, obstructive 02/20/2019 Stroke ([facility]) 02/21/2019 Past Surgical History: Procedure Laterality Date ARTHROPLASTY ELBOW TOTAL Right 02/27/2019 Procedure: RIGHT TOTAL ELBOW ARTHROPLASTY, ULNAR NERVE RELEASE WITH ANTERIOR TRANSPOSITION, RADIAL HEAD EXCISION; Surgeon: Ayde Almanzar DO; Location: [facility] Main OR; Service: Orthopedic HYSTERECTOMY Still [...] 12 inches Recent Results (from the past 15319 hours) XR ELBOW RIGHT 3+ VIEWS (STANDARD) [...] COMPARISON: Right elbow radiographs 07/21/2016 from [facility]. FINDINGS: Three views of the [...] 02/21/2019 12:21 PM EDTPlan of Care - O'Gunner, Sherrill Garcia RN - 02/28/2019 4:10 PM EDT Miscellaneous Notes (unrecog nized section and content) Dr. Silva notified of critical lab value of 407 Patient Instructions for [facility]: Prior to surgery: ? Please be sure to wear loose, comfortable clothing and non-skid shoes ? Bring your health insurance information and a photo ID, as well as your Living Will or Durable Power of Security Installer for Healthcare if it is available to you. ? Bring your cane/walker any applicable assistive device. If you currently use a CPAP, please bring this device with you on the day of surgery. ? Bring a list of your medications with the name of the medication, dose and how often you are taking it. Be sure to include herbal preparations and aqll-hmz-phuckun medications on this list. ? Do not [...] of lotions, perfumes or powders. All nail spanish is to be removed from fingernails and [...] day of your surgery/procedure. ? Parking at [facility] is free. Please park in the lot in front of the main lobby. Enter the Main Entrance where a Hands Hanger Liaison at the information desk will greet you and accompany you to the surgery waiting area. ? Children under the age of 16 are NOT permitted in the Pre/Post Operative areas. They are welcome to wait with a responsible adult in the surgery waiting area. ? Have you had a chance to view our online educational program called [employer]? It is important that you watch it as this is a standard part of your surgery preparation process here at [facility]. It will provide you with additional important [...] AM: Laboratory, Medications and Transcriptions ELSA CATALAN [id number] 1960 DATE 02/27/2019 OPERATIVE REPORT SURGEON AYDE ALMANZAR DO EQUITY MANAGER ROCHELLE SALMERON PA-C PREOPERATIVE DIAGNOSES Right elbow: 1. Rheumatoid arthritis. 2. Ulnar nerve compression. POSTOPERATIVE DIAGNOSES Right elbow: 1. Rheumatoid arthritis. 2. Ulnar nerve compression. PROCEDURE Right elbow: 1. Total elbow arthroplasty using the Biomet Coonrad/Morrey total elbow system with an extra small cemented humeral component and an extra small ulnar component, 67109. 2. Ulnar nerve release with anterior transposition, 18171. 3. Excision of radial head, 44857. ANESTHESIA General with regional block. FLUIDS Crystalloid. [...] was used. The canals were dried with [employer]s. A cement plug was placed in the [...] stable condition. I did utilize my physician district administrative assistant, Rochelle Salmeron, throughout the case. He was an integral part of the case, helped position the patient, assisted throughout the case as well as closure of the wounds, and helped transfer the patient to postanesthesia care unit. He was an integral part of the case. DO Christina QUINONEZ 02/27/2019 19:02 [id number] T 02/28/2019 01:19 ANTWANK/MODL Pt oriented to room and call light. [...] Marilyn will be up to see patient. [facility] [id number] N [id number] 1960 DATE 09/04/2019 OPERATIVE REPORT SURGEON AYDE ALMANZAR, EQUITY MANAGER ROCHELLE SALMERON PA-C PREOPERATIVE DIAGNOSES Left elbow: 1. Rheumatoid arthritis. 2. Cubital tunnel syndrome. POSTOPERATIVE DIAGNOSES Left elbow: 1. Rheumatoid arthritis. 2. Cubital tunnel syndrome. PROCEDURE Left elbow: 1. Total elbow arthroplasty using Iam Buzzwireonrad/Morrey total elbow system with a size extra small cemented humerus and a size extra small cemented ulna, 02902. 2. Excision of radial head, 48035. 3. Ulnar nerve release and anterior transposition, 95865. ANESTHESIA General with regional block. FLUIDS Crystalloid. [...] was dislocated. I was using the Iam Coonrad/MorInstamour system. A piece of bone was taken [...] stable condition. I did utilize my physician district administrative assistant, Rochelle Salmeron, throughout the case. He was an integral part of the case, helped position the patient, assist throughout, as well as closure of wounds, and helped transfer the patient to the postanesthesia care unit. AYDE ALMANZAR DO D 09/04/2019 21:29 [id number] 09/05/2019 00:28 TJK/MODL [facility] Utilization Review Notes DIAGNOSIS:M06.9; M24.522 NEED FOR SURGERY:M06.9; M24.522 DATE OF PROCEDURE: 09/04/2019 PROCEDURE: LEFT TOTAL ELBOW ARTHROPLASTY WITH ULNAR NERVE RELEASE WITH ANTERIOR TRANSPOSITION, EXCISION RADIAL HEAD POST OP COMPLICATIONS: none DISPOSITION: TBD POST OP Brief Post Operative Note Patient Name: Elsa Catalan : 1960 (59 y.o.) Date of Service: 09/04/2019 [facility]: [id number] Procedure(s): LEFT TOTAL ELBOW ARTHROPLASTY WITH ULNAR NERVE RELEASE WITH ANTERIOR TRANSPOSITION, EXCISION RADIAL HEAD Pre-Operative Diagnoses: * M06.9; M24.522 Post-Operative Diagnoses: Surgeon(s) and Role: * Ayde Almanzar DO - Primary Anesthesiologist: Asim Qiu MD Men'S Leather Dress Belt Maker: Stephanie Retana RN Physician Culinary Manager: Rochelle Salmeron PA-C Tire Shop Mechanic: Kristin Padilla, TECHNOLOGIST Men'S Leather Dress Belt Maker Relief: Aimee Dietz RN Relief Scrub: ST Leonardo Scrub Person: ST Sue Scrub Person Assist: Stewart Scruggs RN Operative findings: see report Intra and immediate post-operative complications: none Type of anesthesia used: Regional, General Estimated blood loss: 100 mL Estimated urine output: 0 mL Specimen(s): * No specimens in log * Implant(s): Implant Name Type Inv. Item Serial No. Blindstitch Hemmer Lot No. LRB No. Used Action PLUG 8-10MM SM IM CANAL - [id number] PLUG 8-10MM SM IM CANAL BIOMET INC [id number] Left 1 Implanted CEMENT BONE ANTIBIOTIC SIMPLEX P W/TOBRAMYCIN SINGLE DOSE - [id number] Cement CEMENT BONE ANTIBIOTIC SIMPLEX P W/TOBRAMYCIN SINGLE DOSE INGRID OR [id number] Left 2 Implanted ALICIA/MORREY TOTAL ELBOW INTERCHANGEABLE HUMERAL ASSEMBLY EXTRA SMALL 4 INCH LENGTH IAM BIO [id number] Left 1 Implanted COONRAD/MORREY TOTAL ELBOW INTERCHANGEABLE ULNAR ASSEMBLY EXTRASMALL LEFT 3 INCH IAM BIO [id number] Left 1 Implanted PLUG 8MM CEMENT SM DIAMETER - [id number] PLUG 8MM CEMENT SM DIAMETER BIOMET INC [id number] Left 1 Implanted PLUG 8-10MM SM IM CANAL - [id number] PLUG 8-10MM SM IM CANAL BIOMET INC [id number] Left 1 Explanted Drain(s): * No LDAs [...] Reviewed 10/14/19 1:21 PM: Laboratory and Microbiology ELSA CATALAN [facility] [id number] 1960 DATE 10/13/2019 OPERATIVE REPORT SURGEON AYDE ALMANZAR, EQUITY MANAGER DYLLAN COLBYC PREOPERATIVE DIAGNOSES Left elbow: 1. Necrotic wound. [...] and deep fascia as well as muscle, 44618. 2. Wound vacuum-assisted closure pressure device, a 14 x 7 x 1 cm wound, 87637. ANESTHESIA General. FLUIDS Crystalloid. ESTIMATED BLOOD LOSS [...] the joint. I did utilize my physician district administrative assistant, Rochelle Salmeron, throughout the case. He was an integral part of the case, helped position the patient, assist throughout the case as well as closure of the wound, help transfer the patient to postanesthesia care unit. AYDE ALMANZAR DO D 10/13/2019 11:50 [id number] 10/13/2019 15:11 TJK/MODL Brief Post Operative Note Patient Name: Elsa Catalan : 1960 (59 y.o.) Date of Service: 10/13/2019 CSN: [id number] Procedure(s): INCISION AND DRAINAGE LEFT ELBOW WITH WOUND VAC APPLICATION Pre-Operative Diagnoses: * UNKNOWN Post-Operative Diagnoses: Surgeon(s) and Role: * Ayde Almanzar DO - Primary Anesthesiologist: Lazaro Alvarez MD Men'S Leather Dress Belt Maker: Aimee Dietz RN Physician Culinary Manager: Rochelle Salmeron PANaviC Scrub Person: Anastasiia Gurrola Nurse Float: Keily [...] AM documented in this encounter ELSA CATALAN [facility] [id number] N [id number] 1960 DATE 04/08/2020 OPERATIVE REPORT SURGEON AYDE ALMANZAR DO EQUITY MANAGER ROCHELLE SALMERON PA-C EQUITY MANAGER 2 PEGGY MOSES CNP PREOPERATIVE DIAGNOSIS Left elbow. 1. Ulnar neuropathy. 2. Contracture. 3. Status post total elbow arthritis. POSTOPERATIVE DIAGNOSIS Left elbow. 1. Ulnar neuropathy. 2. Contracture. 3. Status post total elbow arthritis. PROCEDURE Left elbow. 1. Open excision of bone, soft tissue, and capsule with releases; 19776. 2. Ulnar nerve release with anterior transposition; 49186. ANESTHESIA General with regional block. FLUIDS Crystalloid. [...] stable condition. I did utilize my physician district administrative assistant, Rochelle Salmeron, and my nurse practitioner [...] year. AYDE ALMANZAR DO D 04/08/2020 13:56 [id number] 04/08/2020 14:38 TJK/MODL Brief Post Operative Note Patient Name: Elsa Catalan : 1960 (59 y.o.) Date of Service: 04/08/2020 CSN: [id number] Procedure(s): LEFT ELBOW ULNAR NERVE RELEASE WITH ANTERIOR TRANSPOSITION, TENDON LENGTHENING, CAPSULAR RELEASE WITH MANIPULATION UNDER ANESTHESIA Pre-Operative Diagnoses: * G56.22 Post-Operative Diagnoses: Surgeon(s) and Role: * Ayde Almanzar DO - Primary Anesthesiologist: Hiram Lucas MD BEAN VINER: Stewart Mckeon CRNA Men'S Leather Dress Belt Maker: Spring Odonnell RN Physician Culinary Manager: Rochelle Salmeron PA-C Men'S Leather Dress Belt Maker Relief: Miranda Randall RN Scrub Person: ST Ksenia Men'S Leather Dress Belt Maker Orientee: Sherrill Santamaria RN Nurse Float: Suri [...] documented in this encounter Patient Instructions for [facility]: Prior to surgery: ? Please be sure to wear loose, comfortable clothing and non-skid shoes ? Bring your health insurance information and a photo ID, as well as your Living Will or Durable Power of Security Installer for Healthcare if it is available to you. ? Bring your cane/walker any applicable assistive device. If you currently use a CPAP, please bring this device with you on the day of surgery. ? Bring a list of your medications with the name of the medication, dose and how often you are taking it. Be sure to include herbal preparations and ytwt-deb-uhbsljf medications on this list. ? Do not [...] of lotions, perfumes or powders. All nail spanish is to be removed from fingernails and [...] day of your surgery/procedure. ? Parking at [facility] is free. Please park in the lot in front of the main lobby. Enter the Main Entrance where a Hands Hanger Liaison at the information desk will greet [...] roles. The patient's home setup is a bandoleer packer and family/caregiver support is a bandoleer packer for return to prior level of function. The patient's education level is a bandoleer packer, compliance is a bandoleer packer and awareness of own capacity and performance is a bandoleer packer to return to prior level of function. 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 Associated Order(s): IP CONSULT TO HOSPITALIST [facility] CONSULTATION NOTE Patient Name: Elsa Catalan : 1960 MR #: [id number] Admit Date: [id number] Physicians: Delroy Bianchi DO [...] ACR guidelines Diabetes type 2, controlled, with retirement insulin use On metformin and lantus at home, held while in hospital Resume lantus and start correctional humalog for now Hypothyroidism On levothyroxine at home, resumed Medication Reconciliation: Verified Quality Measures DVT Prophylaxis: per surgery Hickey Catheter: placed pre-op Disposition Discharge Location: from home, independent Estimated Discharge Date: per surgery Outpatient Testing: undetermined Chief Complaint HMS consulted by Ayde Almanzar DO for diabetes [...] a barrier and family/caregiver support is a bandoleer packer for return to prior level of function. The patient's education level is a bandoleer packer, compliance is a bandoleer packer and awareness of own capacity and performance is a bandoleer packer to return to prior level of function. [...] January. 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) Past Medical History: Diagnosis Date Asthma [...] HEAD EXCISION; Surgeon: Ayde Almanzar DO; Location: [facility] Main OR; Service: Orthopedic HYSTERECTOMY Still [...] No Associated Order(s): IP CONSULT TO HOSPITALIST [facility] CONSULT[facility] Patient Name: Elsa Catalan : 1960 MR #: [id number] Admit Date: [id number] Physicians: Pretty Fermin MD [...] Outpatient Testing: TBD per primary Chief Complaint HMS consulted by Ayde Almanzar DO for medical [...] WITH ANTERIOR TRANSPOSITION, RADIAL HEAD EXCISION; Surgeon: Adye Almanzar DO; Location: [facility] Main OR; Service: Orthopedic HYSTERECTOMY Still [...] date is: tomorrow (09/05/2019) Associated attestation - Vitaly Kerns MD - 09/05/2019 11:00 AM EST I [...] follow for discharge planning. Re[facility] that wound vac has been approved. GLORIA met with patient and spouse at bedside and [facility] ReadyVac delivered to patient's room (serial number [id number]). Proof of delivery form faxed back to [facility]. GLORIA placed call to [facility] who reports they are unable to accept patient due to staffing. GLORIA placed call to [facility] ([phone]) and per intake they can not accept patient due to staffing. GLORIA placed call to [facility] ([phone], f [phone]) who reports they can accept patient. Referral faxed and Day of Discharge Bundle faxed to intake at [facility]. Notified patient and spouse. AVS and orders updated. Notified RN. Discharge Planning Living Arrangements: Spouse/significant other Support Systems: Spouse/significant other Assistance Needed: min Type of Residence: Private residence Prior to Admission Home Care Services: No Discharge Readiness Expected Discharge Date: 10/14/19 Barriers to Discharge: Pre-certification [facility] Disposition D/C Disposition: Home Health Care Services Related to Current Admission?: Yes Agency/Destination: Other([facility]) Home Care Needs : Home health care HME: Other (Comment)(wound vac) HME Agency: Other (Comment)([facility]) Transportation Type: Auto Physical Therapy Physical Therapy [...] roles. The patient's home setup is a bandoleer packer and family/caregiver support is a bandoleer packer for return to prior level of function. The patient's education level is a bandoleer packer, compliance is a bandoleer packer and awareness of own capacity and performance is a bandoleer packer to return to prior level of function. [...] Stairs to enter with rails, Bed/bath upstairs(3 JOSE MIGUEL) Bathroom Shower/Tub: Tub/shower unit Bathroom Toilet: Standard Bathroom Equipment: Shower chair, Hand-held shower Bathroom Accessibility: Accessible Prior Level of Function Level of [place]: Independent with ADLs and functional transfers, Independent [...] HEAD EXCISION; Surgeon: Ayde Almanzar DO; Location: [facility] Main OR; Service: Orthopedic ARTHROPLASTY ELBOW TOTAL Left 09/04/2019 Procedure: LEFT TOTAL ELBOW ARTHROPLASTY WITH ULNAR NERVE RELEASE WITH ANTERIOR TRANSPOSITION, EXCISION RADIAL HEAD; Surgeon: Ayde Almanzar DO; Location: [facility] Main OR; Service: Orthopedic HYSTERECTOMY Still has ovaries INCISION AND DRAINAGE UPPER EXTREMITY Left 10/13/2019 Procedure: INCISION AND DRAINAGE LEFT ELBOW WITH WOUND VAC APPLICATION; Surgeon: Ayde Almanzar DO; Location: [facility] Main OR; Service: Ortho-Robotics JOINT REPLACEMENT [...] Female SW received c/s earlier today from INFORMATION SYSTEMS ANALYST sharing that pt would be admitted from ED with plan for OR tomorrow at 9am for L elbow I&D and wound VAC placement. Per Ortho-Surg, they wanted to know if SW would be able to arrange vac tomorrow [...] Name: Elsa Catalan Admit Date: MR #: [id number] : 1960 Physicians: Pretty Fermin MD (Family); [...] n/t ulnar nerve from irritation. Admitted by [facility]. Patient has RA on meds. History: Past [...] HEAD EXCISION; Surgeon: Ayde Almanzar DO; Location: [facility] Main OR; Service: Orthopedic ARTHROPLASTY ELBOW TOTAL Left 09/04/2019 Procedure: LEFT TOTAL ELBOW ARTHROPLASTY WITH ULNAR NERVE RELEASE WITH ANTERIOR TRANSPOSITION, EXCISION RADIAL HEAD; Surgeon: Ayde Almanzar DO; Location: [facility] Main OR; Service: Orthopedic HYSTERECTOMY Still [...] file Gets together: Not on file Attends uatsdin service: Not on file Active member of [...] Stephanie Serrato RN - 10/12/2019 2:33 PM Braulio Lieberman RN - 10/12/2019 2:00 PM Ted Turpin MD - 10/12/2019 1:32 PM Braulio Lieberman RN - 10/12/2019 1:10 PM EST ED Notes (unrecognized secti on and content) geotechnical operating engineer notified Wet to dry dressing applied to right elbow, per Dr. Delvalle. [facility] EMERGENCY DEPARTMENT NAME: Elsa Catalan Age: 59 y.o. CSN: [id number] PCP: Pretty Fermin MD Chief Complaint: Post-op [...] nausea and vomiting) Rheumatoid arthritis (HCC) Pepe Caretr MD TMJ (dislocation of temporomandibular joint) Past Surgical History: Procedure Laterality Date ARTHROPLASTY ELBOW TOTAL Right 02/27/2019 Procedure: RIGHT TOTAL ELBOW ARTHROPLASTY, ULNAR NERVE RELEASE WITH ANTERIOR TRANSPOSITION, RADIAL HEAD EXCISION; Surgeon: Ayde Almanzar DO; Location: [facility] Main OR; Service: Orthopedic ARTHROPLASTY ELBOW TOTAL Left 09/04/2019 Procedure: LEFT TOTAL ELBOW ARTHROPLASTY WITH ULNAR NERVE RELEASE WITH ANTERIOR TRANSPOSITION, EXCISION RADIAL HEAD; Surgeon: Ayde Almanzar DO; Location: [facility] Main OR; Service: Orthopedic HYSTERECTOMY Still [...] file Gets together: Not on file Attends uatsdin service: Not on file Active member of [...] or prosecute any alcohol or drug abuse patient.[facility] the event this information is protected by the Federal Confidentiality of Alcohol and Drug Abuse Patient Records regulations: The Federal rules restrict any use of the information to criminally investigate or prosecute any alcohol or drug abuse patient.[facility] the event this information is protected by the Federal Confidentiality of Alcohol and Drug Abuse Patient Records regulations: The Federal rules restrict any use of the information to criminally investigate or prosecute any alcohol or drug abuse patient.[facility] the event this information is protected by the Federal Confidentiality of Alcohol and Drug Abuse Patient Records regulations: The Federal rules restrict any use of the information to criminally investigate or prosecute any alcohol or drug abuse patient.[facility] the event this information is protected by the Federal Confidentiality of Alcohol and Drug Abuse Patient Records regulations: The Federal rules restrict any use of the information to criminally investigate or prosecute any alcohol or drug abuse patient.[facility] the event this information is protected by the Federal Confidentiality of Alcohol and Drug Abuse Patient Records regulations: The Federal rules restrict any use of the information to criminally investigate or prosecute any alcohol or drug abuse patient.[facility] the event this information is protected by the Federal Confidentiality of Alcohol and Drug Abuse Patient Records regulations: The Federal rules restrict any use of the information to criminally investigate or prosecute any alcohol or drug abuse patient.[facility]In the event this information is protected by the Federal Confidentiality of Alcohol and Drug Abuse Patient Records regulations: The Federal rules restrict any use of the information to criminally investigate or prosecute any alcohol or drug abuse patient.[facility]In the event this information is protected by the Federal Confidentiality of Alcohol and Drug Abuse Patient Records regulations: The Federal rules restrict any use of the information to criminally investigate or prosecute any alcohol or drug abuse patient.[facility] the event this information is protected by the Federal Confidentiality of Alcohol and Drug Abuse Patient Records regulations: The Federal rules restrict any use of the information to criminally investigate or prosecute any alcohol or drug abuse patient.[facility]In the event this information is protected by the Federal Confidentiality of Alcohol and Drug Abuse Patient Records regulations: The Federal rules restrict any use of the information to criminally investigate or prosecute any alcohol or drug abuse patient.[facility]In the event this information is protected by the Federal Confidentiality of Alcohol and Drug Abuse Patient Records regulations: The Federal rules restrict any use of the information to criminally investigate or prosecute any alcohol or drug abuse patient.[facility]In the event this information is protected by the Federal Confidentiality of Alcohol and Drug Abuse Patient Records regulations: The Federal rules restrict any use of the information to criminally investigate or prosecute any alcohol or drug abuse patient.[facility]In the event this information is protected by the Federal Confidentiality of Alcohol and Drug Abuse Patient Records regulations: The Federal rules restrict any use of the information to criminally investigate or prosecute any alcohol or drug abuse patient.[facility]In the event this information is protected by the Federal Confidentiality of Alcohol and Drug Abuse Patient Records regulations: The Federal rules restrict any use of the information to criminally investigate or prosecute any alcohol or drug abuse patient.[facility] HospitalIn the event this information is protected by the Federal Confidentiality of Alcohol and Drug Abuse Patient Records regulations: The Federal rules restrict any use of the information to criminally investigate or prosecute any alcohol or drug abuse patient.[facility] Care Teams (unrecognized sec tion and content) Associate Professor Of Anthropology Relationship Specialty Start Date End Date Pretty Fermin MD [address] [place] [address] PCP - General Family Practice 01/25/21 Associate Professor Of Anthropology Relationship Specialty Start Date End Date Pretty Fermin MD [address] [place] [address] PCP - General Family Practice 01/25/21 Associate Professor Of Anthropology Relationship Specialty Start Date End Date Pretty Fermin MD [address] [place] [address] PCP - General Family Practice 01/25/21 Associate Professor Of Anthropology Relationship Specialty Start Date End Date Pretty Fermin MD [address] [place] [address] PCP - General Family Medicine 01/25/21 Associate Professor Of Anthropology Relationship Specialty Start Date End Date Pretty Fermin MD [address] [place] [address] PCP - General Family Medicine 01/25/21 Associate Professor Of Anthropology Relationship Specialty Start Date End Date Pretty Fermin MD [address] [place] [address] PCP - General Family Medicine 01/25/21 Associate Professor Of Anthropology Relationship Specialty Start Date End Date Pretty Fermin MD [address] [place] [address] PCP - General Family Medicine 01/25/21 Associate Professor Of Anthropology Relationship Specialty Start Date End Date Pretty Fermin MD [address] [place] [address] PCP - General Family Medicine 01/25/21 Associate Professor Of Anthropology Relationship Specialty Start Date End Date Pretty Fermin MD PCP - General Family Medicine 01/25/21 Associate Professor Of Anthropology Relationship Specialty Start Date End Date Pretty Fermin MD PCP - General Family Medicine 01/25/21 Associate Professor Of Anthropology Relationship Specialty Start Date End Date Pretty Fermin MD PCP - General Family Medicine 01/25/21 Associate Professor Of Anthropology Relationship Specialty Start Date End Date Pretty Fermin MD PCP - General Family Medicine 01/25/21 Associate Professor Of Anthropology Relationship Specialty Start Date End Date Pretty Fermin MD PCP - General Family Medicine 01/25/21 Associate Professor Of Anthropology Relationship Specialty Start Date End Date Pretty Fermin MD PCP - General Family Medicine 01/25/21 Associate Professor Of Anthropology Relationship Specialty Start Date End Date Pretty Fermin MD PCP - General Family Medicine 01/25/21 Associate Professor Of Anthropology Relationship Specialty Start Date End Date Pretty Fermin MD PCP - General Family Medicine 01/25/21 Associate Professor Of Anthropology Relationship Specialty Start Date End Date Pretty Fermin MD [address] [place] [address] PCP - General Family Medicine 07/10/24 Associate Professor Of Anthropology Relationship Specialty Start Date End Date Pretty Fermin MD [address] [place] [address] PCP - General Family Medicine 07/10/24 Associate Professor Of Anthropology Relationship Specialty Start Date End Date Pretty Fermin MD [address] [place] [address] PCP - General Family Medicine 07/10/24 Associate Professor Of Anthropology Relationship Specialty Start Date End Date Pretty Fermin MD [address] [place] [facility] [address] PCP - General Family Medicine 07/10/24 Associate Professor Of Anthropology Relationship Specialty Start Date End Date Pretty Fermin MD [address] [place] [facility] [address] PCP - General Family Medicine 07/10/24 Associate Professor Of Anthropology Relationship Specialty Start Date End Date Pretty Fermin MD [address] [place] [facility] [address] PCP - General Family Medicine 07/10/24 Associate Professor Of Anthropology Relationship Specialty Start Date End Date Pretty Fermin MD [address] [place] [facility] [address] PCP - General Family Medicine 07/10/24 Associate Professor Of Anthropology Relationship Specialty Start Date End Date Pretty Fermin MD [address] [place] [facility] [address] PCP - General Family Medicine 07/10/24 Associate Professor Of Anthropology Relationship Specialty Start Date End Date Pretty Fermin MD [address] [place] [facility] [address] PCP - General Family Medicine 07/10/24 Associate Professor Of Anthropology Relationship Specialty Start Date End Date Pretty Fermin MD [address] [place] [facility] [address] PCP - General Family Medicine 07/10/24 Associate Professor Of Anthropology Relationship Specialty Start Date End Date Pretty Fermin MD [address] [facility] [place] [address] PCP - General Family Medicine 07/10/24 FOR RECORDS PERTAINING TO PATIENTS WHO ARE [...] BE BASED ON THE PRIMARY CLINICAL RECORDS. [employer] provides no warranty or guarantee of the accuracy or completeness of information in this document.
== END 2024-08-05 09:53 | disposition home or self-care (01) ==
LOC: EC 09:52
PROVIDERS: PCP Nurse Practitioner Family; Visit Provider Orthopaedic Surgery
DX: S72.001D Fracture of unspecified part of neck of right femur, subsequent encounter for closed fracture with routine healing (principal)
CPT/HCPCS: 73502

== ENCOUNTER 2024-09-02 09:51 | Outpatient (OUT) | payer MEDICARE, SELFPAY ==
--- NOTE | 2024-09-02 | XR_ITS ---
The [address] [address] Patient Name: ELSA CATALAN MRN: [id number] date: 1960 Sex: F Assigned Patient Location: Current Patient Location: Accession/Order Number: [id number] Exam Date: 09/02/2024 09:52 Report Date: 09/03/2024 06:38 At the request of: STU DAVALOS Procedure: XR hip RT 2V w/ pelvis PROCEDURE: XR hip RT 2V w/ pelvis HISTORY: RIGHT HIP AND PELVIS PAIN COMPARISON: XR hip right 08/05/2024 FINDINGS: BONES:Intramedullary jose juan and compression screw within right femur for prior intertrochanteric fracture. No appreciable hardware fracture or loosening. Normal alignment is maintained. SOFT TISSUES:No visible soft tissue swelling. EFFUSION:None visible. OTHER: Negative. XR/XR hip RT 2V w/ pelvis IMPRESSION: 1. Stable surgical repair of right intertrochanteric fracture; no appreciable hardware fracture or change in alignment. Electronically authenticated by: STU SAMUEL Date: 09/03/2024 06:38
== END 2024-09-02 09:52 | disposition home or self-care (01) ==
LOC: EC 09:51
PROVIDERS: PCP Nurse Practitioner Family; Visit Provider Orthopaedic Surgery
DX: S72.001D Fracture of unspecified part of neck of right femur, subsequent encounter for closed fracture with routine healing (principal)
CPT/HCPCS: 73502

== ENCOUNTER 2024-10-14 09:26 | Outpatient (OUT) | payer MEDICARE, SELFPAY ==
--- NOTE | 2024-10-14 | XR_ITS ---
[address] [address] Patient Name: ELSA CATALAN MRN: [id number] date: 1960 Sex: F Assigned Patient Location: Current Patient Location: Accession/Order Number: [id number] Exam Date: 10/14/2024 09:50 Report Date: 10/14/2024 13:45 At the request of: STU DAVALOS Procedure: XR hip RT 2V w/ pelvis PROCEDURE: XR hip RT 2V w/ pelvis COMPARISON: 09/02/2024 HISTORY: RIGHT HIP PAIN FINDINGS: BONES:Stable remote right intertrochanteric hip fracture with internal fixation. No acute fracture, dislocation or mechanical failure. Moderate degenerative changes of the spine SOFT TISSUES:Negative. No visible soft tissue swelling. EFFUSION:None visible. OTHER: Vascular calcifications XR/XR hip RT 2V w/ pelvis IMPRESSION: No acute abnormality Electronically authenticated by: LATASHA GERARDO Date: 10/14/2024 13:45
== END 2024-10-14 09:27 | disposition home or self-care (01) ==
LOC: EC 09:26
PROVIDERS: PCP Nurse Practitioner Family; Visit Provider Orthopaedic Surgery
DX: S72.001D Fracture of unspecified part of neck of right femur, subsequent encounter for closed fracture with routine healing (principal)
CPT/HCPCS: 73502

== ENCOUNTER 2024-11-05 07:56 | Outpatient (OUT) | payer MEDICARE, SELFPAY ==
--- OUTSIDE RECORDS SUMMARY | 2024-11-05 08:16 | XMS_ITS | CCD ---
Author Organization [facility] Care Team Providers Care Food Supervisor Name Role Phone PEPE CARTER Unavailable Unavailable [...] Unavailabl e ILO, DELROY Primary Care Unavailable [facility] Consulting AYDE Daniels Admitting Unavailabl e JENY, PRETTY Primary Care Unavailable LEATHA GOMEZ Attending Unavailable EMILEEY, PRETTY Primary Care Unavailable [facility] Consulting ROCHELLE Schwartz Admitting Unavailable NUSRAT MARX Attending Unavailable AYDE ALMANZAR Admitting Unavailabl e AYDE ALMANZAR Attending Unavailabl e JENY, PRETTY Primary Care Unavailable AYDE ALMANZAR Admitting Unavailabl e CANDELARIO CURTIS Attending Unavailable JENY, PRETTY Primary Care Unavailable AYDE ALMANZAR Admitting Unavailabl e AYDE ALMANZAR Referring Unavailabl e JENY, PRETTY Primary Care Unavailable Ayde Almanzar Unavailable Pretty Fermin Primary Care Provider [phone] Ayde Almanzar Unavailable Leatha Gomez Unavailable Pretty Fermin MD Primary Care Provider [phone] Pretty Fermin MD Primary Care Provider [phone] JOYCE, TAWANDA Consulting Unavailable JOYCE, TAWANDA Primary [...] Unavailable Pretty Fermin MD Primary Care Provider [phone] Pretty Fermin MD Primary Care Provider [phone] Pretty Fermin MD Primary Care Provider [phone] PRETTY FERMIN Primary Care Unavailable EMMA, PEPE Referring Unavailable PRETTY FERMIN Primary Care Unavailable EMMA, PEPE Attending Unavailable PRETTY FERMIN Primary Care Unavailable PRETTY FERMIN Primary Care Unavailable EMMA, PEPE Referring Unavailable HOY, PRETTY M Primary Care Unavailable EMMA, PEPE Referring Unavailable EMMA, PEPE Attending Unavailable EMMA, PEPE Referring Unavailable HOY, PRETTY M Primary Care Unavailable EMMA, PEPE Attending Unavailable HOY, PRETTY M Primary Care Unavailable BLACKSTON, MAGDALENA T Attending Unavailable HOY, PRETTY M Referring Unavailable BRINK, LIU Attending Unavailable HOY, PRETTY M Referring Unavailable KELBLEY, FELA Attending Unavailable HOY, PRETTY M Referring Unavailable BRINK, LIU Attending Unavailable HOY, PRETTY M Referring Unavailable BRINK, LIU Attending Unavailable HOY, PRETTY M Referring Unavailable KELBLEY, FELA Attending Unavailable HOY, PRETTY M Referring Unavailable BLACKSTON, MAGDALENA T Attending Unavailable HOY, PRETTY M Referring Unavailable BRINK, LIU Attending Unavailable HOY, PRETTY M Referring Unavailable BRINK, LIU Attending Unavailable HOY, PRETTY M Referring Unavailable BRINK, LIU Attending Unavailable HOY, PRETTY M Referring Unavailable BLACKSTON, MAGDALENA T Attending Unavailable HOY, PRETTY M Referring Unavailable BRINK, LIU Attending Unavailable HOY, PRETTY M Referring Unavailable BRINK, LIU Attending Unavailable HOY, PRETTY M Referring Unavailable BRINK, LIU Attending Unavailable HOY, PRETTY M Referring Unavailable KELBLEY, FELA Attending Unavailable HOY, PRETTY M Referring Unavailable BRINK, LIU Attending Unavailable HOY, PRETTY M Referring Unavailable BRINK, LIU Attending Unavailable HOY, PRETTY M Referring Unavailable PA, AHMAD F Attending Unavailable PA, AHMAD F Referring Unavailable BRINK, LIU Attending Unavailable HOY, PRETTY M Referring Unavailable BRINK, LIU Attending Unavailable HOY, PRETTY M Referring Unavailable BRINK, LIU Attending Unavailable HOY, PRETTY M Referring Unavailable TOMA, LEO Attending Unavailable HOY, PRETTY M Referring Unavailable TOMA, LEO Attending Unavailable HOY, PRETTY M Referring Unavailable TOMA, LEO Attending Unavailable HOY, PRETTY M Referring Unavailable Allergies Allergy Classification Reported Allergen(s) Allergy Type Date of Onset Reaction(s) Facility (20 sources) indomethacin; Translations: [INDOMETHACIN] Drug Allergy 12-07-19 [facility] (20 sources) penicillin; Translations: [PENICILLIN G] Drug Allergy 12-07-19 [facility] (20 sources) propoxyphene; Translations: [PROPOXYPHENE] Drug Allergy 12-07-19 03 Fever [facility] Other [place] Repository (2 sources) OTHER; Translations: [OTHER] Propensity to adverse reactions (disorder) 12-07-19 03 [facility] [place] Repository (20 sources) Penicillins; Translations: [Penicillins] Propensity to adverse reactions to drug 12-07-19 03 Rash, Unknown [facility] (10 sources) Lisinopril; Translations: [Unknown] Drug Allergy 08-23-20 19 Other (See Comments) [facility] (6 sources) Adhesive Tape-Silicones Propensity to adverse reactions to drug 08-23-20 19 Rash [facility] (20 sources) Ciprofloxacin; Translations: [CIPROFLOXACIN] Drug Allergy 12-24-19 17 Rash, Hives, Unknown [facility] (14 sources) Anesthetics [Other] Propensity to adverse reactions 12-07-19 03 [facility] (1 source) Acetaminophen / oxyCODONE Drug Allergy 08-04-20 21 [facility] Repository (1 source) Ciprofloxacin Drug Allergy 12-24-19 17 [facility] Repository (1 source) Latex Drug allergy (disorder) 09-01-20 20 [facility] Repository (7 sources) Propofol; Translations: [PROPOFOL] Drug Allergy 05-18-20 24 GI Upset [facility] (20 sources) Acetaminophen / oxyCODONE Drug Allergy 08-23-20 24 Unknown [facility] (20 sources) empagliflozin Drug Allergy 08-23-20 24 Unknown [facility] (20 sources) Lisinopril Propensity to adverse reactions 08-23-20 19 [facility] (20 sources) Propofol Drug Allergy 05-18-20 24 GI intolerance [facility] (20 sources) Octacosanol Drug Allergy 08-23-20 24 Unknown [facility] (20 sources) Wound Dressing Adhesive Drug Intolerance 08-23-20 19 Rash [facility] Medications Current Medications Medication Drug Class(es) Dates [...] 0.8 ml adalimumab 50 mg/ml prefilled syringe (20 sources) Tumor Necrosis Factor Miguel Start: 09-04-2019 inject 0.8 mL by subcutaneous injection once adalimumab (HUMIRA) 40 mg/0.8 mL syringe Indications: rheumatoid arthritis Inject 0.8 mL (40 mg total) under the skin every 14 (fourteen) days . Reasons: rheumatoid arthritis. 2 each 0 09/04/2019 Active ADALIMUMAB SC In ject 40 mg under the skin Every 3 weeks Active End: 09-04-2019 adalimumab (HUMIRA) 40 mg/0. 8 mL syringe Indications: rheumatoid arthritis Inject 40 mg under the skin every 14 (fourteen) days Reasons: rheumatoid arthritis. 0 09/04/2019 Discontinued (Reorder) [id number] 200 actuat albuterol 0.09 mg/actuat metered dose inhaler (20 sources) beta2-Adrenergic Agonist Start: 07-02-2020 take 2 [...] 1 dose, Pre-Procedure SPACER REQUIRED FOR ADMINISTRATION take 2 puff(s) by in halation every six hours albuterol HFA 90 mcg/act inhaler Inhale 2 puffs every 6 (six) hours if needed Active Comment on above: inhale 2 puffs by mo uth and INTO THE LUNGS every 4 hours if needed alendronic acid 70 mg oral tablet (3 sources) Bisphosphonate Start: 024 take 1 tablet by mouth every week alendronate (FOSAMAX) 70 mg tablet Indications: Postmenopausal osteoporosis of multiple sites , Personal history of (healed) other pathological fracture Take 1tab by mouth once a week on empty stomach with full glass of water. No food/drink or lying down for 45-60minutes after med. 12 tablet 3 09/20/2024 Active cholecalciferol 0.125 mg oral tablet (20 sources) Vitamin D Start: 013 take 1 tablet by mouth once daily Cholecalciferol, Vitamin D3, 5,000 unit Tab Take 1 tablet by mouth once daily. 0 07/02/2013 Active take 1 capsule by mouth in the m orning cholecalciferol (Vitamin D-3) 50 MCG (1999) capsule Take 1 capsule by mouth in the morning. Active Comment on above: Take 1 tablet by meera once daily. cholecalciferol, vitamin D3, (VITAMIN D3 ORAL) (11 sources) take 1 capsule by mouth once daily in the morning cholecalciferol, vitamin D3, (VITAMIN D3 ORAL) Indications: Supp Take 1 capsule by mouth every morning Reasons: Supp. 0 Active cholecalciferol, vitamin D3, (VITAMIN D3 ORAL) Indications: Supp Take by mouth every morning Reasons: Supp. 0 Active cloNIDine hydrochloride 0.1 mg oral tablet (20 sources) Central alpha-2 Adrenergic Agonist Start: 11-19-2020 take 1 tablet by mouth twice daily cloNIDine HCl (CATAPRES) 0.1 mg tablet Take 0.1 mg by mouth twice daily. 11/19/2020 Active Comment on above: Take 0.1 mg by mouth twice daily. docusate sodium 100 mg oral capsule (20 sources) Start: 03-17-2021 take 1 capsule by [...] on above: Take 1 capsule by mo [facility] twice daily as needed for constipation. empagliflozin 25 mg oral tablet (20 sources) Sodium-Glucose Cotransporter 2 Inhibitor Start: 0 End: 5 take 1 tablet by mouth once daily JARDIANCE 25 mg tablet Take 25 mg by mouth once daily. 07/02/2020 Active take 1 tablet by [facility] once daily in the morning, then take 2 tablets by mouth empagliflozin (Jardiance) 10 mg Tab Indications: type 2 diabetes mellitus Take 10 mg by mouth every morning Reasons: type 2 diabetes mellitus. 0 Active Comment on above: Take 25 mg by mouth once daily. ergocalciferol 1.25 mg oral capsule (6 sources) Provitamin D2 Compound Start: 05-15-2024 ergocalciferol 50,000 unit capsule (VITAMIN D2, DRISDOL) Indications: Vitamin D deficiency (take by mouth with food twice a week, ONE CAPSULE ON MONDAY AND ONE ON MONDAY) FOR A TOTAL OF 8 WEEKS. 16 capsule 05/15/2024 Active FLUoxetine 10 mg oral capsule (20 sources) Serotonin Reuptake Inhibitor Start: 07-21-2021 FLUoxetine (PROZAC) 10 mg capsule Take 10 mg by mouth. 07/21/2021 Active Start: 01-16-2020 End: 09-20-2024 take 1 capsule by mouth once daily FLUoxetine (PROZAC) 20 mg capsule Indications: Anxiety Take 1 capsule by mouth once daily. 1 capsule 1 01/16/2020 09/20/2024 Discontinued (Dosage adjustment) Comment on above: Take 1 capsule by [facility] once daily. folic acid 1 mg [...] Start: 01-14-2019 take 2 tablets by mo uth once daily in the morning, then take [...] on above: Take 2 tablets by mo uth once daily. gabapentin 800 mg oral tablet (20 sources) Anti-epileptic Agent Start: 05-18-2024 End: 05-15-2025 take 4 tablets by mouth once daily gabapentin (Neurontin) 800 MG tablet Take 4tabs by mouth per day 05/18/2024 05/15/2025 Active Start: 12-22-2021 End: 05-18-2024 [...] CAPSULES BY MOUTH DIVIDED THROUGHOUT THE DAY 3 ml insulin glargine 100 unt/ml pen injector (20 sources) Insulin Analog Start: 09-10-2024 End: 03-09-2025 insulin glargine (Lantus SoloStar) 100 UNIT/ML pen Indications: Type 2 diabetes mellitus with hyperglycemia, with long-term current use of insulin ([facility]) INJECT 55 UNITS SUBCUTANEOUSLY (UNDER THE SKIN) AT BEDTIME 60 mL 1 09/11/2024 Active Start: 02-22-2024 End: 09-10-2024 Lantus SoloStar 100 UNIT/ML pen Inject 55 Units under the skin Daily 02/22/2024 09/10/2024 Discontinued (Reorder) Start: 10-13-2019 End: 10-14-2019 50 Units, Subcutaneous, Nigh tly, First dose on Mon10/13/19 at 2100 Do [...] 50 Units, Subcutaneous, Nightly, First dose on 02/27/19 at 2100 Nursing call if patient nauseated [...] on above: Inject 50 Units subc utaneously. 3 ml insulin aspart, human 100 unt/ml pen injector (20 sources) Insulin Analog Start: 09-10-2024 End: 03-09-2025 insulin aspart (NovoLOG FLEXPEN) 100 UNIT/ML pen Indications: Type 2 diabetes mellitus with hyperglycemia, with long-term current use of insulin ([facility]) Inject 20 Units under the skin in the morning and 20 Units at noon and 20 Units in the evening. Inject before meals. 54 mL 1 09/10/2024 03/09/2025 Active Start: 01-21-2019 End: 09-10-2024 insulin aspart U-100 (NOVOLO G) 100 unit/mL Inject subcutaneously. 01/21/2019 Active insulin [...] oral tablet (20 sources) Antirheumatic Agent Start: 02-15-20 End: 05-14-20 24 take 1 tablet by mouth once daily at mealtime leflunomide (ARAVA) 20 mg tablet Indications: Rheumatoid arthritis of multiple sites without organ or system involvement with positive rheumatoid factor (HCC) Take 1tab daily by mouth with food. Hold in on antibiotics or ill. 90 tablet 3 05/14/2024 Active Start: 07-26-2021 End: 08-11-2022 take 1 [...] or chew. take 1 tablet by meera once daily in the morning leflunomide (ARAVA) [...] adjustment to meet caloric needs. Start: 01-21-2019 End: 03-09-2025 take 1 tablet by mouth once daily levothyroxine (SYNTHROID) 200 mcg tablet [...] (20 sources) Folate Analog Metabolic Inhibitor Start: 05-17-2024 methotrexate 250 MG/10ML injection 05/17/2024 Active Start: 03-13-2023 methotrexate 2 .5 mg tablet Indications: Rheumatoid arthritis of multiple sites without organ or system involvement with positive rheumatoid factor (HCC) TAKE 10 TABS ONCE A WEEK with food. No alcohol. Hold if on antibiotics or ill. Hold 1-2weeks after vaccines. 50 tablet 3 03/13/2023 Active Start: 02-20-2023 End: 05-14-2024 inject 1 mL by subcutaneous injection every week methotrexate sodium 25 mg/mL soln Indications: Rheumatoid arthritis of multiple sites without organ or system involvement with positive rheumatoid factor (HCC) , Elevated sed rate Sq 1ml injection once a week. No alcohol. Hold if on antibiotics or ill. 25 mL 3 05/14/2024 Active Start: 09-21-2021 End: 08-11-2022 inject 1 [...] 1-2weeks after vaccines. 24 hr metoprolol succinate 50 mg extended release oral tablet (20 sources) beta-Adrenergic Miguel Start: 01-16-2024 take 1 tablet by mouth once daily metoprolol succinate XL (Toprol-XL) 50 MG 24 hr tablet Take 50 mg by mouth Daily 01/16/2024 Active Start: 10-19-2020 take 1 tablet by meera once daily metoprolol succinate ER (TOPROL XL) [...] (9 sources) Serotonin-3 Receptor Antagonist Start: 04-08-20 End: 04-15-20 take 1 tablet by mouth every six [...] for heartburn Reasons: GERD. 0 Active simvastatin 40 mg oral tablet (20 sources) HMG-CoA Reductase Inhibitor Start: 07-21-2021 simvastatin (ZOCOR) 40 mg tablet Take 40 mg by mouth. 07/21/2021 Active Start: 11-12-2020 take 1 tablet by meera th once daily simvastatin (ZOCOR) 20 mg tablet [...] First dose on Ananya 09/05/19 at 1200 Comment on above: Take 20 mg by [...] oral tablet (20 sources) Aminosalicylate Start: 02-14-2023 End: 05-14-2024 take 1 tablet by mouth three times daily sulfaSALAzine EC (AZULFIDINE EN-TABS) 500 mg EC tablet Indications: Rheumatoid arthritis of multiple sites without organ or system involvement with positive rheumatoid factor (HCC) Take 1 tablet by mouth three times a day. 270 tablet 3 05/14/2024 Active Start: 07-26-2021 End: 08-11-2022 take 1 [...] upadacitinib 15 mg extended release oral tablet (20 sources) Start: 2 End: 2 take 1 [...] 1weeks after vaccines. VITAMIN B COMPLEX ORAL (11 sources) VITAMIN B COMPLE X ORAL Take by mouth. Active VITAMIN B COMPLE X ORAL Take by mouth. 0 Active Comment on above: Take by mouth. VITAMIN E ORAL (20 sources) VITAMIN E ORAL T frank by [...] every hour 75 mL/hr, Intravenous, Continuous, Starting 04/08/20 at 1500, PACU (only) Start: 04-08-2020 End: 04-08-2020 lactated Ringers infusion Start: 10-13-2019 End: 10-14-2019 take 50 mL intravenous route every hour 50 mL/hr, Intravenous, Continuous, Starting 10/13/19 at 0945, PACU (only) Start: 09-04-2019 End: 09-05-2019 lactated Ringers infusion Start: 02-27-2019 End: 02-28-2019 take 100 mL intravenous route every hour 100 mL/hr, Intravenous, Continuous, Starting 02/27/19 at 1215, PACU (only) Start: 02-27-2019 End: [...] Active docusate sodium 50 mg / sennosides, jail 8.6 mg oral tablet (3 sources) Start: [...] if unable to tolerate oral route. insulin lispro 100 unt/ml injectable solution (7 [...] times daily before meals, First dose on 10/12/19 at 1700 Dose should be given 10-15 [...] mL), Oral, Daily PRN, constipation, contipation, Starting 09/04/19 at 1613 Start: 02-27-2019 End: 02-28-2019 take 2400 mg by mouth once daily as needed for constipation 2,400 mg (30 mL), Oral, Daily PRN, constipation, contipation, Starting 02/27/19 at 1238 Meperidine (1 source) Opioid Agonist Start: 04-08-2020 End: 04-08-2020 12.5 mg, Intravenous, Every 5 min PRN, shivering, Starting 04/08/20 at 1414, For 2 doses, PACU (only) [...] needed, moderate to severe pain, Pain, Starting Mon04/08/20 at 1414, For 1 dose, PACU (only) [...] every hour 75 mL/hr, Intravenous, Continuous, Starting 09/04/19 at 1700 Start: 09-04-2019 End: 09-05-2019 sodium [...] Problem Classification Problem Date Documented Date Episodic/Chronic Administrative/socia l admission (2 sources) Patient encounter status; Translations: [Dietary counseling and surveillance] 09-10-2024 Episodic Asthma (20 sources) Mild intermittent asthma; Translations: [Mild intermittent asthma, uncomplicated] Onset: 01-29-2021 01-29-2021 Chronic Cardiac dysrhythmias (1 source) Tachycardia, unspecified; Translations: [TACHYCARDIA UNSPECIFIED] Onset: 11-03-2022 Episodic Complications of surgical procedures or medical care (3 sources) Postprocedural hypothyroidism; Translations: [Postoperative hypothyroidism] Onset: 02-02-2022 09-10-2024 Chronic Deficiency and other anemia (5 sources) Anemia of chronic disease; Translations: [Anemia in other chronic diseases classified elsewhere] Chronic Deficiency and other anemia (1 source) Anemia in other chronic diseases classified elsewhere; Translations: [Anemia of chronic disease] Onset: 11-23-2023 Chronic Diabetes mellitus with complications (9 sources) Type 2 diabetes mellitus with ulcer; Translations: [Type 2 diabetes mellitus with other circulatory complications] Onset: 02-01-2022 Chronic Diabetes mellitus without complication (20 sources) Type 2 diabetes mellitus without complication; Translations: [Diabetes mellitus] Onset: 04-24-2019 04-24-2019 Chronic Disorders of lipid metabolism (20 sources) Hyperlipidemia; Translations: [Other hyperlipidemia] Onset: 01-29-2021 03-15-2021 Chronic Disorders of teeth and jaw (1 source) Jaw pain; Translations: [Jaw pain] 09-20-2024 Episodic Essential hypertension (20 sources) Benign essential hypertension; Translations: [Essential hypertension] Onset: 04-23-2019 04-23-2019 Chronic Nonspecific chest pain (4 sources) Other chest pain; Translations: [OTHER CHEST PAIN] Onset: 11-02-2022 Episodic Nutritional deficiencies (20 sources) Vitamin D deficiency; Translations: [Vitamin D deficiency, unspecified] Onset: 07-01-2013 Chronic Osteoarthritis (20 sources) Degenerative joint disease involving multiple joints; Translations: [Secondary multiple arthritis] Onset: 08-06-2015 08-06-2015 Chronic Osteoporosis (2 sources) Postmenopausal osteoporosis; Translations: [Age-related osteoporosis without current pathological fracture] 05-18-2024 Chronic Other acquired deformities (1 source) Contracture, right elbow; Translations: [Contracture of right elbow] Chronic Other acquired deformities (1 source) Contracture of left elbow joint; Translations: [Contracture of left elbow] Other aftercare (2 sources) Long-term current use of insulin; Translations: [rn long term care (current) use of insulin] 09-10-2024 Episodic Other connective tissue disease (2 sources) Triggering of digit; Translations: [Trigger finger, right middle finger] 05-18-2024 Episodic Other connective tissue disease (20 sources) Other symptoms and signs involving the musculoskeletal system; Translations: [Other musculoskeletal symptoms referable to limbs] 07-11-2024 Episodic Other hematologic conditions (20 sources) ESR [...] [Acute neuritis] Chronic Other nervous system disorders (20 sources) Carpal tunnel syndrome; Translations: [Carpal tunnel syndrome, unspecified upper limb] Onset: 10-07-2011 10-07-2011 Chronic Other nervous system disorders (1 source) Bilateral carpal tunnel syndrome; Translations: [Carpal tunnel syndrome, bilateral upper limbs] Chronic Other nervous system disorders (20 sources) Difficulty walking; Translations: [Difficulty in walking, not elsewhere classified] 07-11-2024 Chronic Other nervous system disorders (2 sources) Postoperative pain ; Translations: [Post-operative pain] Episodic Other nervous system disorders (2 sources) Abnormal gait; Translations: [Unspecified abnormalities of gait and mobility] 11-23-2023 Episodic Other non-traumatic joint disorders (6 sources) Arthritis of elbow; 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] Onset: 09-04-2019 09-04-2019 Chronic Other non-traumatic joint disorders (1 source) Chronic pain of left upper limb; Translations: [Pain in left elbow] 07-26-2021 Episodic Other non-traumatic joint disorders (2 sources) Chronic pain of right upper limb; Translations: [Pain in right elbow] 05-18-2024 Episodic Other upper respiratory infections (1 source) Acute upper respiratory infection, unspecified; Translations: [ACUTE UP RESPIRATORY INFECTION UNS] Onset: 09-21-2022 Episodic Pathological fracture (1 source) History of pathological fracture; Translations: [Personal history of (healed) other pathological fracture] 09-20-2024 Episodic Residual codes; unclassified (1 source) Other [...] unspecified rheumatoid factor presence (HCC)] Thyroid disorders (20 sources) Acquired hypothyroidism; Translations: [Hypothyroidism] Onset: 03-15-2021 [...] Complications of surgical procedures or medical care (20 sources) Complication of procedure; Translations: [Postoperative wound infection] Onset: 1 03-15-2021 Episodic Deficiency and other anemia (1 source) Anemia, unspecified; Translations: [ANEMIA UNSPECIFIED] Onset: 2 Episodic Diabetes mellitus without complication (1 source) Other abnormal glucose; Translations: [OTHER ABNORMAL GLUCOSE] Onset: 2 Episodic Immunizations and screening for infectious disease (3 sources) Tuberculosis screening status; Translations: [Encounter for screening for respiratory tuberculosis] Onset: 4 05-28-2023 Episodic Malaise and fatigue (20 sources) Fatigue; Translations: [Other fatigue] Onset: 5 11-12-2014 Episodic Nausea and vomiting (20 sources) Postoperative nausea and vomiting; Translations: [Nausea and vomiting] Onset: 5 09-16-2015 Episodic Nutritional deficiencies (2 sources) Cobalamin deficiency; Translations: [Deficiency of other specified B group vitamins] Onset: 4 05-28-2023 Episodic Open wounds of extremities (4 sources) Open wound of upper limb; Translations: [Non-healing wound of upper extremity] Onset: 0 10-14-2019 Episodic Other aftercare (20 sources) H/O: high risk medication; Translations: [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] Onset: 8 07-16-2018 Episodic Other aftercare (1 source) rn long term care (current) use of insulin; Translations: [EMOTIONAL DISABILITIES TEACHER CURRENT USE OF INSULIN] Onset: 2 Episodic Other bone disease and musculoskeletal deformities (20 sources) Osteopenia; Translations: [Other specified disorders of bone density and structure, multiple sites] Onset: 1 12-16-2020 Episodic Other connective tissue disease (20 sources) Fibromyalgia; Translations: [Fibromyalgia] Onset: 4 08-29-2014 Episodic Other connective tissue disease (11 sources) Fibrositis arm; Translations: [Fibromyalgia affecting forearm] Onset: 9 04-24-2019 Episodic Other connective tissue disease (20 sources) Disorder of hand; Translations: [Synovitis and tenosynovitis, unspecified] Onset: 4 06-30-2014 Episodic Other connective tissue disease (20 sources) Pain in finger of right hand; Translations: [Pain in right finger(s)] Onset: 5 11-12-2014 Episodic Other connective tissue disease (20 sources) Pain of bilateral hands; Translations: [Pain in right hand] Onset: 8 07-16-2018 Episodic Other connective tissue disease (20 sources) Bilateral medial epicondylitis of elbows; Translations: [Medial epicondylitis, right elbow] Onset: 8 07-23-2018 Episodic Other connective tissue disease (20 sources) Lateral epicondylitis of bilateral humerus; Translations: [Lateral epicondylitis, right elbow] Onset: 8 07-23-2018 Episodic Other connective tissue disease (1 source) Trigger finger, right middle finger; Translations: [Trigger middle finger of right hand] Onset: 4 Episodic Other connective tissue disease (1 source) Pain in right hand; Translations: [Bilateral hand pain] Onset: 8 Episodic Other connective tissue disease (1 source) Pain in left hand; Translations: [Bilateral hand pain] Onset: 8 Episodic Other eye disorders (20 sources) Tear film insufficiency; Translations: [Dry eye syndrome of unspecified lacrimal gland] Onset: 6 03-29-2016 Episodic Other gastrointestinal disorders (1 source) H/O: gastrointestinal disease; Translations: [History of postoperative nausea and vomiting] Episodic Other hematologic conditions (1 source) Elevated erythrocyte sedimentation rate; Translations: [Elevated sed rate] Onset: 2 Episodic Other lower respiratory disease (20 sources) Productive cough ; Translations: [Productive cough] Onset: 7 12-01-2016 Episodic Other lower respiratory disease (4 sources) Other forms of dyspnea; Translations: [OTHER FORMS OF DYSPNEA] Onset: 2 Episodic Other nervous system disorders (20 sources) Paresthesia of hand ; Translations: [Anesthesia [...] 9 04-23-2019 Episodic Other non-traumatic joint disorders (20 sources) Hip pain; Translations: [Pain in right hip] Onset: 2 10-07-2011 Episodic Other non-traumatic joint disorders (20 sources) Pain in right knee; Translations: [Pain in joint, lower leg] Onset: 4 06-30-2014 Episodic Other non-traumatic joint disorders (20 sources) Multiple joint pain; Translations: [Pain in unspecified joint] Onset: 5 08-06-2015 Episodic Other non-traumatic joint disorders (2 sources) Shoulder pain; Translations: [Pain in right shoulder] Onset: 6 03-29-2016 Episodic Other non-traumatic joint disorders (20 sources) Bilateral wrist pain; Translations: [Pain in right wrist] Onset: 8 07-16-2018 Episodic Other non-traumatic joint disorders (20 sources) Multiple stiff joints; Translations: [Stiffness of unspecified joint, not elsewhere classified] Onset: 8 07-16-2018 Episodic Other non-traumatic joint disorders (20 sources) Swelling of joint of right wrist; Translations: [Effusion, right wrist] Onset: 1 12-10-2020 Episodic Other non-traumatic joint disorders (20 sources) Bilateral elbow joint pain; Translations: [Pain in right elbow] Onset: 1 12-10-2020 Episodic Other non-traumatic joint disorders (20 sources) Bilateral chronic pain of upper limbs; Translations: [Pain in right shoulder] Onset: 6 03-29-2016 Episodic Other screening for suspected conditions (not mental disorders or infectious disease) (20 sources) Other specified abnormal findings of blood chemistry; Translations: [Other abnormal blood chemistry] Onset: 2 Episodic Other skin disorders (20 sources) Eruption; Translations: [Rash and other nonspecific skin eruption] Onset: 4 06-30-2014 Episodic Spondylosis; intervertebral disc disorders; other back problems (20 sources) Cervicalgia; Translations: [Neck pain] Onset: 2 10-07-2011 Episodic Unclassified (1 source) COUGH, UNSPECIFIED; Translations: [COUGH, UNSPECIFIED] Onset: 2 Viral infection (20 sources) Postherpetic neuralgia; Translations: [Other postherpetic nervous system involvement] Onset: 6 03-29-2016 Episodic Results Test Name Value Interpretation Reference [facility] Tele[facility] (CHAD) ELSA CATALAN ([id number]) 1960 F Date Time Provider Department 09/22/24 PEPE CARTER During your visit today, we recorded the following information about you: Pepe Carter MD 09/22/2024 12:26 AM Signed Please Call patient if [employer] note not read to review results/released to My Chart if tests completed at [facility]: Mildly high normal glucose- will monitor with primary care provider/endocrinology . Normal rest of labs and no inflammation. Continue same vitamin D intake with food. Recheck nonfasting labs in 3months.The orders have been placed. Happy to further review and discuss at follow up visit. Thank you. 09/20/24 high glucose 159;normal rest of cmp, cbc, esr 17, crp<0.3, vitamin D 53.7; Fransico Joseph MA 09/23/2024 7:55 AM Signed patient has viewed the [employer] message per [employer]. Allergies As of Date: 09/22/2024 Noted Allergy Reaction CIPROFLOXACIN 12/23/2016 2 - Rash ANESTHESIA S/I-40 (PROPOFOL) (PRO*05/18/2024 8 - GI Upset Comments: Problems awakening and GI upset with general anesthesia INDOMETHACIN 12/06/2002 Comments: (Indocin) extremely high temperature elevation PENICILLIN G 12/06/2002 Comments: rash PROPOXYPHENE 12/06/2002 Comments: pt. not sure Date Reviewed: 09/20/2024 Reviewed by: Pepe Carter MD - Fully Assessed Reason for Visit: Results [95] Primary Visit Diagnosis:Elevated LFTs [R79.89] Other Visit Diagnoses:Anemia of chronic disease [D63.8] Elevated sed rate [R70.0] Elevated C-reactive protein (CRP) [R79.82] Vitamin D deficiency [E55.9] Screening-pulmonary TB [Z11.1] Order(s):COMPREHENSIVE METABOLIC PANEL [SQCMP] Order #: [id number] FUTURE COMPLETE BLOOD COUNT [SQCBC] Order #: [id number] FUTURE SEDIMENTATION RATE, WESTERGREN [SQWSR] Order #: [id number] FUTURE C-REACTIVE PROTEIN [SQCRP] Order #: [id number] FUTURE VITAMIN D 25 HYDROXY [SQVITD] Order #: [id number] FUTURE BLOOD TB SCREEN [SQINFTBP] Order #: [id number] FUTURE Prescriptions as of 09/23/2024 - simvastatin (ZOCOR) 40 mg tablet Take 40 mg by mouth. - FLUoxetine (PROZAC) 10 mg capsule Take 10 mg by mouth. - alendronate (FOSAMAX) 70 mg tablet Take 1tab by mouth once a week on empty stomach with full glass of water. No food/drink or lying down for 45-60minutes after med. - gabapentin (NEURONTIN) 800 mg tablet Take 4tabs by mouth per day - Syringe with Needle, Safety (SAFETY-ASHISH TB SYR 1CC/25GX5/8 ) 1 mL 25 gauge x 5/8 syrg Sq injection with methotrexate. Ok to substitute with syringe/needles available and covered by insurance. - ergocalciferol 50,000 unit capsule (VITAMIN D2, [...] or ill. Hold 1weeks after vaccines. - docusate sodium (COLACE) 100 mg capsule [...] tablet Take 150 mg by mouth once daily (more content not included)... Normal [facility] 25(OH)D3 [facility] 2023 25-hydroxyvitamin D3 [Mass/Vol] 53.7 ng/mL Normal 31.0-80.0 [facility] Comment on above: Order Comment: Speci men Type: BLOOD SPECIMENOrdering Facility: [facility] Address: [address] [place] [address] Result Comment: Clas sification of 25 [place] Vitamin D status: Deficiency/Insufficiency: < or = 30 ng/ml. Sufficiency/Optimal Levels: 31-80 ng/mL Toxicity: > 100 ng/mL. Test performed by chemiluminescent immunoassay. Performed By: #### 1 989-3 ####[facility] LABCLIA [id number] [place] [address] [place] CBC panel Auto (Bld)on 09-20 Erythrocyte distribution width (RBC) [Ratio] 13.2 % Normal 11.5-15.0 [facility] Comment on above: Order Comment: Speci men Type: BLOOD SPECIMENOrdering Facility: [facility] Address: [address] [place] [address] Performed By: #### 5 8410-2, 4537-7 ####[facility] LABCLIA [id number] [place] [address] [place] Hematocrit (Bld) [Volume fraction] 39.3 % Normal 36.0-46.0 [facility] Comment on above: Order Comment: Speci men Type: BLOOD SPECIMENOrdering Facility: [facility] Address: [address] [place] [address] Performed By: #### 5 8410-2, 4537-7 ####[facility] LABCLIA [id number] [place] [address] [place] Hemoglobin (Bld) [Mass/Vol] 12.9 g/dL Normal 11.5-15.5 [facility] Comment on above: Order Comment: Speci men Type: BLOOD SPECIMENOrdering Facility: [facility] Address: [address] [place] [address] Performed By: #### 5 8410-2, 4537-7 ####[facility] LABIA [id number] [place] [address] [place] MCH (RBC) [Entitic mass] 30.1 pg Normal 26.0-34.0 [facility] Comment on above: Order Comment: Speci men Type: BLOOD SPECIMENOrdering Facility: [facility] Address: [address] [place] [address] Performed By: #### 5 8410-2, 7-7 ####[facility] LABCLIA [id number] [place] [address] [place] MCHC (RBC) [Mass/Vol] 32.8 g/dL Normal 30.5-36.0 [facility] Comment on above: Order Comment: Speci men Type: BLOOD SPECIMENOrdering Facility: [facility] Address: [address] [place] [address] Performed By: #### 5 8410-2, 4537-7 ####[facility] LABCLIA [id number] [place] [address] [place] MCV (RBC) [Entitic vol] 91.8 fL Normal 80.0-100.0 [facility] Comment on above: Order Comment: Speci men Type: BLOOD SPECIMENOrdering Facility: [facility] Address: [address] [place] [address] Performed By: #### 5 8410-2, 4537-7 ####[facility] LABCLIA [id number] [place] [address] [place] Nucleated RBC (Bld) [#/Vol] 10*3/uL Normal <0.01 [facility] Comment on above: Order Comment: Speci men Type: BLOOD SPECIMENOrdering Facility: [facility] Address: [address] [place] [address] Performed By: #### 5 8410-2, 4536-7 ####[facility] LABCLIA [id number] [place] [address] [place] Platelet mean volume (Bld) [Entitic vol] 10.0 fL Normal 9.0-12.7 [facility] Comment on above: Order Comment: Speci men Type: BLOOD SPECIMENOrdering Facility: [facility] Address: [address] [place] [address] Performed By: #### 5 8410-2, 7-7 ####[facility] LABCLIA [id number] [place] [address] [place] Platelets (Bld) [#/Vol] 393 10*3/uL Normal 150-400 [facility] Comment on above: Order Comment: Speci men Type: BLOOD SPECIMENOrdering Facility: [facility] Address: [address] [place] [address] Performed By: #### 5 8410-2, 4537-7 ####[facility] LABCLIA [id number] [place] [address] [place] RBC (Bld) [#/Vol] 4.28 10*6/uL Normal 3.90-5.20 [facility] Comment on above: Order Comment: Speci men Type: BLOOD SPECIMENOrdering Facility: [facility] Address: [address] [place] [address] Performed By: #### 5 8410-2, 4537-7 ####[facility] LABCLIA [id number] [place] [address] [place] WBC (Bld) [#/Vol] 8.85 10*3/uL Normal 3.70-11.00 [facility] Comment on above: Order Comment: Speci men Type: BLOOD SPECIMENOrdering Facility: [facility] Address: [address] [place] [address] Performed By: #### 5 8410-2, 4537-7 ####[facility] LABCLIA [id number] [place] [address] [place] CNOVon 09-20-2024 CNOV Office Visit (CHAD ) ELSA CATALAN ([id number]) 1960 F Date Time Provider Department 09/20/24 12:40 PM PEPE CARTER During your visit today, we recorded the following information about you: Pulse Blood pressure Weight 68/minute 135/92 66.1 kg Pepe Carter MD 09/20/2024 4:41 PM Addendum Face to face Follow up for rheumatoid arthritis/ degenerative joint disease/joint pain/ osteopenia Today's visit 09/20/24: Taking rinvoq daily (only every other day if hoarse voice), neurontin, vitamin D script, methotrexate 10tabs weekly, synthroid. NO recent oral steroids. NO eye flares. Yes dryness. 06/06/24 hand xrays-Imaging features of inflammatory arthritis with severe radiocarpal, [...] metacarpal heads similar to the previous exam. 07/2024 Went to get the mail, and tripped R hip fracture treated with jose juan/screws Limps, weaker since R hip fracture, using cane. 70-100% improvement from rinvoq. In PT for exercise. R 2nd DIP swelling. Chronic current pain in R hip/buttocks, hands, R 2nd DIP, R jaw no change with mouth guard. Finger pain better asper cream. R wrist brace helps. Has elbow/less shoulder/back pain.Reports pain 3-8/10. Has 1-2hr AM stiffness. Feels safe at home. Has enough food, supplies and medications. Overall mildly uncomfortable but happy with rheum care. No falls/fx/trauma/illnes s/oral sores/rash/hairloss/ja w pain/dysphagia/epistax is/hemoptysis since last visit. No adverse effects with meds. No other complaints. Patient denies fever, chills, cp, dyspnea, nausea, vomiting, night sweats, scalp tenderness, visual changes, abbott, bowel/bladder changes, weight changes or other complaints. Last visit 06/06/24 hand xrays-Imaging features of inflammatory arthritis with severe radiocarpal, [...] metacarpal heads similar to the previous exam. 05/18/24:due for labs in 3months. taking gabapentin [...] occur, if yes, please see primary care provider/ENT/immunolog y 11/23/23 high glucose 146;normal rest of cmp, cbc, esr 15, crp 0.7, vitamin D 34.8, vitamin z67-4977;negative quantiferon tb; Patient's request for medication is [...] uncomfortable but happy with rheum care. No falls/fx/trauma/illnes s/oral sores/rash/hairloss/ja w pain/dysphagia/epistax is/hemoptysis since last visit. No adverse effects with [...] eval, much improved with rinvoq daily/received by [employer], continue sq 1ml once every other week injections methotrexate (HOLD 1-2weeks after vaccines), ssz 500mg 3times a day, daily arava, improv (more content not included)... Normal [facility] CRP SerPl-ncon 09-20-2024 CRP [Mass/Vol] mg/L Normal <0.9 [facility] Comment on above: Order Comment: Speci men Type: BLOOD SPECIMENOrdering Facility: [facility] Address: [address] [place] [address] Performed By: #### 2 4328, 1988-01 ####[facility] LABCLIA [id number] [place] [address] [place] Comprehensive metabolic 2000 panelon 09-20-2024 Albumin [Mass/Vol] 4.2 g/dL Normal 3.9-4.9 [facility] Comment on above: Order Comment: Mark Anthonyi laura Type: BLOOD SPECIMENOrdering Facility: [facility] Address: [address] [place] [address] Performed By: #### 2 43212-07, 1988-01 ####[facility] LABCLIA [id number] [place] [address] [place] ALP [Catalytic activity/Vol] 96 U/L Normal 34-123 [facility] Comment on above: Order Comment: Speci men Type: BLOOD SPECIMENOrdering Facility: [facility] Address: [address] [place] [address] Performed By: #### 2 4328, 1988-01 ####[facility] LABCLIA [id number] [place] [address] [place] ALT [Catalytic activity/Vol] 23 U/L Normal 7-38 [facility] Comment on above: Order Comment: Speci men Type: BLOOD SPECIMENOrdering Facility: [facility] Address: [address] [id number] Performed By: #### 2 4328, 1988-01 ####[facility] LABCLIA [id number] [address] [address] [place] Anion gap [Moles/Vol] 13 mmol/L Normal 8-15 [facility] Comment on above: Order Comment: Speci men Type: BLOOD SPECIMENOrdering Facility: [facility] Address: [address] [place], [place] [address] Performed By: #### 2 8, 1988-01 ####[facility] LABCLIA [id number] [place] [address] [place] AST [Catalytic activity/Vol] 28 U/L Normal 13-35 [facility] Comment on above: Order Comment: Speci men Type: BLOOD SPECIMENOrdering Facility: [facility] Address: [address] [place], [place] [address] Performed By: #### 2 4328, 1988-01 ####[facility] LABCLIA [id number] [address] [address] [place] Bilirubin [Mass/Vol] 0.2 mg/dL Normal 0.2-1.[address] [facility] Comment on above: Order Comment: Speci men Type: BLOOD SPECIMENOrdering Facility: [facility] Address: [address] [place] [address] Performed By: #### 2 4328, 1988-01 ####[facility] LABCLIA [id number] [address] [address] [place] Calcium [Mass/Vol] 8.9 mg/dL Normal 8.5-10.2 [facility] Comment on above: Order Comment: Speci men Type: BLOOD SPECIMENOrdering Facility: [facility] Address: [address] [place], [place] [address] Performed By: #### 2 4323-8, 1988-01 ####[facility]CL[facility] [id number] [facility] [address] [address] [place] Chloride [Moles/Vol] 100 mmol/L Normal 98-[address] [facility] Comment on above: Order Comment: Speci men Type: BLOOD SPECIMENOrdering Facility: [facility] Address: [address] [place] [address] Performed By: #### 2 4328, 1988-01 ####[facility] LABCLIA [id number] [place] [address] [place] CO2 [Moles/Vol] 26 mmol/L Normal 22-30 [facility] Comment on above: Order Comment: Speci men Type: BLOOD SPECIMENOrdering Facility: [facility] Address: [address] [place] [address] Performed By: #### 2 43238, 1988-01 ####[facility] LABCLIA [id number] [place] [address] [place] Creatinine [Mass/Vol] 0.64 mg/dL Normal 0.58-0.96 [facility] Comment on above: Order Comment: Speci men Type: BLOOD SPECIMENOrdering Facility: [facility] Address: [address] [place] [address] Performed By: #### 2 43238, 1988-01 ####[facility] LABCLIA [id number] [place] [id number] [place] Creatinine and Glomerular filtration rate.predicted panel (S/P/Bld) 98 mL/min/1.73m??? Normal >=60 [facility] Comment on above: Order Comment: Speci men Type: BLOOD SPECIMENOrdering Facility: [facility] Address: [address] [place] [address] Result Comment: Carrie mated Glomerular Filtration Rate [...] accurately reflect actual GFR. Performed By: #### 2 43212-07, 1988-01 ####[facility] LABCLIA [id number] [place] [address] [place] Glucose [Mass/Vol] 159 mg/dL High 74-99 [facility] Comment on above: Order Comment: Vivek sanchez Type: BLOOD SPECIMENOrdering Facility: [facility] Address: [address] [place] [address] Result Comment: The [place] [employer] Association (ADA) provides guidance for cutoff [...] Standards of Medical Care in Diabetes 2016, [place] [employer]. Diabetes Care. 2016.39(Suppl 1). Performed By: #### 2 4323-05, 1988-01 ####[facility] LABCLIA [id number] [place] [id number] [place] Potassium [Moles/Vol] 3.8 mmol/L Normal 3.7-5.1 [facility] Comment on above: Order Comment: Vivek sanchez Type: BLOOD SPECIMENOrdering Facility: [facility] Address: [address] [facility] [address] Performed By: #### 2 43212-07, 1988-01 ####[facility] LABCLIA [id number] [address] [address] [place] Protein [Mass/Vol] 7.6 g/dL Normal 6.3-8.0 [facility] Comment on above: Order Comment: Speci men Type: BLOOD SPECIMENOrdering Facility: [facility] Address: [address] [place], [place] [address] Performed By: #### 2 4328, 1988-01 ####[facility] LABCLIA [id number] [place] [address] [place] Sodium [Moles/Vol] 139 mmol/L Normal 136-144 [facility] Comment on above: Order Comment: Speci men Type: BLOOD SPECIMENOrdering Facility: [facility] Address: [address] [place] [address] Performed By: #### 2 4328, 1988-01 ####[facility] LABIA [id number] [place] [address] [place] Urea nitrogen [Mass/Vol] 16 mg/dL Normal 7-21 [facility] Comment on above: Order Comment: Speci men Type: BLOOD SPECIMENOrdering Facility: [facility] Address: [address] [place] [address] Performed By: #### 2 4328, 1988-01 ####[facility] LABCLIA [id number] [place] [address] [place] ESR Westergren method (Bld) [Velocity]on 09-20-2024 ESR (Bld) [Velocity] 17 mm/h Normal 0-[address] [facility] Comment on above: Order Comment: Speci men Type: BLOOD SPECIMENOrdering Facility: [facility] Address: [address] [place] [address] Performed By: #### 5 8410-2, 4537-7 ####[facility] LABCLIA [id number] [place] [id number] [place] Glucose (Bld) [Mass/Vol]Orde red By: Aundrea Singh on 09-10-2024 Glucose Blood, POC 112 mg/dL [facility] - Hematology and Cell countson 09-10-2024 HbA1c (Bld) [Mass fraction] 9.4 % [facility] No Panel InformationOrdered By: Aundrea Samantha on 09-10-2024 [facility] XR HAND 3V PA/LAT/OBL BILon 06-06-2024 XR HAND 3V PA/LAT/OBL LEXX * * *Final Report* * * DATE OF EXAM: Jun 06 2024 9:32AM LNX [id number] - XR HAND 3V PA/LAT/OBL LEXX / PROCEDURE REASON: multiple diagnoses * * * * Physician Interpretation * * * * EXAM: XR HAND 3V PA/LAT/OBL LEXX HISTORY: Trigger middle finger of right hand Bilateral hand pain Bilateral hand pain . BILATERAL HAND PAIN, TRIGGER FINGER IN RIGHT MIDDLE FINGER, HX OF RHEUMATOID ARTHRITIS TECHNIQUE: XR HAND 3V PA/LAT/OBL LEXX Laterality: BILATERAL Number of different views (projections): [...] IMPRESSION: Mild interval progression of inflammatory arthritis. 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 No response lyrica OFF Hydroxychloroquine/Jared quenil/humira/xeljanz Methotrexate 10tabs once a week or 1ml sq injection food every other a week (HOLD 1-2weeks after vaccines) Do not drink alcohol while taking methotrexate Have bloodwork every 8-12weeks for monitoring while taking Methotrexate Please take folic acid 1mg tab:Take 1tab by mouth daily SSZ 500mg tab 3times a day Restart Rinvoq daily by mouth arava/leflunamide daily with food hold methotrexate/rinvoq/ar [place] if on antibiotics or if you have any signs/symptoms of infection. wear wrist splints at night and as needed for carpal tunnel syndrome may take prednisone for flares No NSAIDs (ex. motrin, etc.)on pred. eyedrops as instructed gabapentin/neurontin 300mg 3tab 3times a day see hand ortho for trigger finger injection/release/hand /wrist/elbow pain nonfasting bloodwork as scheduled Thank you. [...] the flow of saliva in many patients. Edgar flavored sugarless tablets and sugar-free chewing gum [...] should conta (more content not included)... Normal [facility] Elysia 05-15-2024 CNPN Telephone (CHAD) ELSA CATALAN ([id number]) 1960 F Date Time Provider Department 05/15/24 [...] occur, if yes, please see primary care provider/ENT/immunolog y 11/23/23 high glucose 146;normal rest of cmp, cbc, esr 15, crp 0.7, vitamin D 34.8, vitamin u72-2546;negative quantiferon tb; Patient's request for medication is [...] protein (CRP) [R79.82] Vitamin D deficiency [E55.9] Order(s):ergocalcifero l 50,000 unit capsule (VITAMIN D2, DRISDOL)(take by mouth with food twice a week, ONE CAPSULE ON MONDAY AND ONE ON MONDAY) FOR A TOTAL OF 8 WEEKS.Disp: 16 capsuleRfl: 0 COMPREHENSIVE METABOLIC PANEL [SQCMP] Order #: [id number] FUTURE COMPLETE BLOOD COUNT [SQCBC] Order #: [id number] FUTURE SEDIMENTATION RATE, WESTERGREN [SQWSR] Order #: [id number] FUTURE C-REACTIVE PROTEIN [SQCRP] Order #: [id number] FUTURE VITAMIN D 25 HYDROXY [SQVITD] Order #: [id number] FUTURE Prescriptions as of 05/16/2024 - ergocalciferol [...] (ZOCOR) 20 (more content not included)... Normal [facility] 25(OH)D3 [facility] [facility] 25-hydroxyvitamin D3 [Mass/Vol] 30.0 ng/mL Low 31.0-80.0 [facility] Comment on above: Order Comment: Speci men Type: BLOOD SPECIMENOrdering Facility: [facility] Address: [address] [place] [address] Result Comment: Clas sification of 25 [place] Vitamin D status: Deficiency/Insufficiency: < or = 30 ng/ml. Sufficiency/Optimal Levels: 31-80 ng/mL Toxicity: > 100 ng/mL. Test performed by chemiluminescent immunoassay. Performed By: #### 1 989-3 ####[facility] LABCLIA [id number] [place] [address] [place] CBC panel Auto (Bld)on 05-14 Erythrocyte distribution width (RBC) [Ratio] 12.5 % Normal 11.5-15.0 [facility] Comment on above: Order Comment: Mark Anthonyi men Type: BLOOD SPECIMENOrdering Facility: [facility] Address: [address] [place] [address] Performed By: #### 5 8410-2 ####[facility] LABCLIA [id number] [place] [address] Hematocrit (Bld) [Volume fraction] 39.1 % Normal 36.0-46.0 [facility] Comment on above: Order Comment: Speci men Type: BLOOD SPECIMENOrdering Facility: [facility] Address: [address] [place] [address] Performed By: #### 5 8410-2 ####[facility] LABCLIA [id number] [place] [address] Hemoglobin (Bld) [Mass/Vol] 13.6 g/dL Normal 11.5-15.5 [facility] Comment on above: Order Comment: Speci men Type: BLOOD SPECIMENOrdering Facility: [facility] Address: [address] [place] [address] Performed By: #### 5 8410-2 ####[facility] LABCLIA [id number] [place] [address] MCH (RBC) [Entitic mass] 29.6 pg Normal 26.0-34.0 [facility] Comment on above: Order Comment: Speci men Type: BLOOD SPECIMENOrdering Facility: [facility] Address: [address] [place] [address] Performed By: #### 5 8410-2 ####[facility] LABCLIA [id number] [place] [address] MCHC (RBC) [Mass/Vol] 34.8 g/dL Normal 30.5-36.0 [facility] Comment on above: Order Comment: Speci men Type: BLOOD SPECIMENOrdering Facility: [facility] Address: [address] [place] [address] Performed By: #### 5 8410-2 ####[facility] LABCLIA [id number] [place] [address] MCV (RBC) [Entitic vol] 85.0 fL Normal 80.0-100.0 [facility] Comment on above: Order Comment: Speci men Type: BLOOD SPECIMENOrdering Facility: [facility] Address: [address] [place] [address] Performed By: #### 5 8410-2 ####[facility] LABCLIA [id number] [place] [address] Nucleated RBC (Bld) [#/Vol] 10*3/uL Normal <0.01 [facility] Comment on above: Order Comment: Speci men Type: BLOOD SPECIMENOrdering Facility: [facility] Address: [address] [place] [address] Performed By: #### 5 8410-2 ####[facility] LABCLIA [id number] [place] [address] Platelet mean volume (Bld) [Entitic vol] 10.0 fL Normal 9.0-12.7 [facility] Comment on above: Order Comment: Speci men Type: BLOOD SPECIMENOrdering Facility: [facility] Address: [address] [place] [address] Performed By: #### 5 8410-2 ####[facility] LABCLIA [id number] [place] [address] Platelets (Bld) [#/Vol] 319 10*3/uL Normal 150-400 [facility] Comment on above: Order Comment: Speci men Type: BLOOD SPECIMENOrdering Facility: [facility] Address: [address] [place] [address] Performed By: #### 5 8410-2 ####[facility] LABCLIA [id number] [place] [address] RBC (Bld) [#/Vol] 4.60 10*6/uL Normal 3.90-5.20 [facility] Comment on above: Order Comment: Speci men Type: BLOOD SPECIMENOrdering Facility: [facility] Address: [address] [place] [address] Performed By: #### 5 8410-2 ####[facility] LABCLIA [id number] [place] [address] WBC (Bld) [#/Vol] 7.63 10*3/uL Normal 3.70-11.00 [facility] Comment on above: Order Comment: Speci men Type: BLOOD SPECIMENOrdering Facility: [facility] Address: [address] [place] [address] Performed By: #### 5 8410-2 ####[facility] LABCLIA [id number] [place] [address] CRP SerPl-ncon 05-14-2024 CRP [Mass/Vol] 0.6 mg/dL Normal <0.9 [facility] Comment on above: Order Comment: Speci men Type: BLOOD SPECIMENOrdering Facility: [facility] Address: [address] [place] [address] Performed By: #### 1 988-5 ####[facility] LABCLIA [id number] [place] [id number] [place] [facility] Comprehensive metabolic 2000 panelon 05-14-2024 Albumin [Mass/Vol] 4.1 g/dL Normal 3.9-4.9 [facility] Comment on above: Order Comment: Speci men Type: BLOOD SPECIMEN Ordering Facility: [facility] Address: [address] [place] [address] Performed By: #### 2 4323-8 #### [facility] CLIA [id number] [address] [place] [address] ALP [Catalytic activity/Vol] 85 U/L Normal 34-123 [facility] Comment on above: Order Comment: Speci men Type: BLOOD SPECIMEN Ordering Facility: [facility] Address: [address] [place] [address] Performed By: #### 2 4323-8 #### [facility] CLIA [id number] [address] [place] [address] ALT [Catalytic activity/Vol] 33 U/L Normal 7-38 [facility] Comment on above: Order Comment: Speci men Type: BLOOD SPECIMEN Ordering Facility: [facility] Address: [address] [place] [address] Performed By: #### 2 4323-8 #### [facility] CLIA [id number] [address] [place] [address] Anion gap [Moles/Vol] 10 mmol/L Normal 8-15 [facility] Comment on above: Order Comment: Speci men Type: BLOOD SPECIMEN Ordering Facility: [facility] Address: [address] [place] [address] Performed By: #### 2 4323-8 #### [facility] CLIA [id number] [address] [place] [address] AST [Catalytic activity/Vol] 27 U/L Normal 13-35 [facility] Comment on above: Order Comment: Speci men Type: BLOOD SPECIMEN Ordering Facility: [facility] Address: [address] [place] [address] Performed By: #### 2 4323-8 #### [facility] CLIA [id number] [address] [place] [address] Bilirubin [Mass/Vol] 0.3 mg/dL Normal 0.2-1.[address] [facility] Comment on above: Order Comment: Speci men Type: BLOOD SPECIMEN Ordering Facility: [facility] Address: [address] [place] [address] Performed By: #### 2 4323-8 #### [facility] CLIA [id number] [address] [place] [address] Calcium [Mass/Vol] 9.7 mg/dL Normal 8.5-10.2 [facility] Comment on above: Order Comment: Speci men Type: BLOOD SPECIMEN Ordering Facility: [facility] Address: [address] [place] [address] Performed By: #### 2 4323-8 #### [facility] CLIA [id number] [address] [place] [address] Chloride [Moles/Vol] 98 mmol/L Normal 98-[address] [facility] Comment on above: Order Comment: Speci men Type: BLOOD SPECIMEN Ordering Facility: [facility] Address: [address] [place] [id number] Performed By: #### 2 4323-8 #### [facility] CLIA [id number] [address] [place] [address] CO2 [Moles/Vol] 31 mmol/L High 22-30 [facility] Comment on above: Order Comment: Speci men Type: BLOOD SPECIMEN Ordering Facility: [facility] Address: [address] [place], [place] [address] Performed By: #### 2 4323-8 #### [facility] CLIA [id number] [address] [place] [address] Creatinine [Mass/Vol] 0.74 mg/dL Normal 0.58-0.96 [facility] Comment on above: Order Comment: Speci men Type: BLOOD SPECIMEN Ordering Facility: [facility] Address: [address] [place] [address] Performed By: #### 2 4323-8 #### [facility] CLIA [id number] [address] [place] [address] Creatinine and Glomerular filtration rate.predicted panel (S/P/Bld) 90 mL/min/1.73m??? Normal >=60 [facility] Comment on above: Order Comment: Speci men Type: BLOOD SPECIMEN Ordering Facility: [facility] Address: [address] [place], [place] [address] Result Comment: Carrie mated Glomerular Filtration Rate [...] accurately reflect actual GFR. Performed By: #### 2 4323-8 #### [facility] CLIA [id number] [address] [place] [address] Glucose [Mass/Vol] 237 mg/dL High 74-99 [facility] Comment on above: Order Comment: Vivek sanchez Type: BLOOD SPECIMEN Ordering Facility: [facility] Address: [address] [place] [address] Result Comment: The [place] [employer] (ADA) provides guidance for cutoff [...] Standards of Medical Care in Diabetes 2016, [place] [employer]. Diabetes Care. 2016.39(Suppl 1). Performed By: #### 2 4323-8 #### [facility] CLIA [id number] [address] [place] [address] Potassium [Moles/Vol] 3.6 mmol/L Low 3.7-5.1 [facility] Comment on above: Order Comment: Vivek sanchez Type: BLOOD SPECIMEN Ordering Facility: [facility] Address: [address] [place] [address] Performed By: #### 2 4323-8 #### [facility] CLIA [id number] [address] [place] [address] Protein [Mass/Vol] 7.7 g/dL Normal 6.3-8.0 [facility] Comment on above: Order Comment: Vivek sanchez Type: BLOOD SPECIMEN Ordering Facility: [facility] Address: [address] [place] [address] Performed By: #### 2 4323-8 #### [facility] CLIA [id number] [address] [place] [address] Sodium [Moles/Vol] 139 mmol/L Normal 136-144 [facility] Comment on above: Order Comment: Speci men Type: BLOOD SPECIMEN Ordering Facility: [facility] Address: [address] [place] [address] Performed By: #### 2 4323-8 #### [facility] CLIA [id number] [address] [place] [address] Urea nitrogen [Mass/Vol] 19 mg/dL Normal 7-21 [facility] Comment on above: Order Comment: Speci men Type: BLOOD SPECIMEN Ordering Facility: [facility] Address: [address] [place] [address] Performed By: #### 2 4323-8 #### [facility] CLIA [id number] [address] [place], [place] [address] ESR Westergren method (Bld) [Velocity]on 05-14-2024 ESR (Bld) [Velocity] 37 mm/h High 0-20 [facility] Comment on above: Order Comment: Speci men Type: BLOOD SPECIMENOrdering Facility: [facility] Address: [address] [place] [address] Performed By: #### 4 537-7 ####[facility] LABCLIA [id number] [place] [id number] [place] Elysia 12-29-2023 CNPN Telephone (CHAD) HOSSEINELSA ([id number]) 1960 F Date Time Provider Department 12/29/23 [...] calling: self Call patient at: on cell [phone] (home) [phone] (cell) Was an appointment scheduled: No Closing statement: Symptom Call: Thank you for calling [facility] [place], your call is very important. A nurse [...] Lm regarding results and recommendations sent via [employer]. Suri Rico, TRAVON 01/01/2024 12:04 PM Signed Patient calling in [...] glargine (L (more content not included)... Normal [facility] CNPNon 11-27-2023 BREEN Telephone (CHAD) ELSA CATALAN ([id number]) 1960 F Date Time Provider Department 11/27/23 PEPE CARTER During your visit today, we recorded the following information about you: Pepe Carter MD 01/01/2024 5:56 PM Addendum Please Call patient if MyChart note not read to review results/released to My Chart if tests completed at [facility]: Borderline glucose- will monitor with primary [...] occur, if yes, please see primary care provider/ENT/immunolog y 11/23/23 high glucose 146;normal rest of cmp, cbc, esr 15, crp 0.7, vitamin D 34.8, vitamin i51-3505;negative quantiferon tb; Lauren Galo MA 11/27/2023 8:45 [...] [E55.9] Order(s):COMP METABOLIC PANEL [SQCMP] Order #: [id number] FUTURE CBC [SQCBC] Order #: [id number] FUTURE SED RATE WESTERGREN [SQWSR] Order #: [id number] FUTURE C-REACTIVE PROTEIN (CRP) [SQCRP] Order #: [id number] FUTURE VITAMIN D 25 HYDROXY [SQVITD] Order #: [id number] FUTURE Prescriptions as of 01/01/2024 - methotrexate [...] daily. Prob (more content not included)... Normal [facility] 25(OH)D3 SerPl-mCncon 2023 25-hydroxyvitamin D3 [Mass/Vol] 34.8 ng/mL Normal 31.0-80.0 [facility] Comment on above: Order Comment: Vivek sanchez Type: BLOOD SPECIMENOrdering Facility: [facility] Address: [address] [place] [address] Result Comment: Clas sification of 25 [place] Vitamin D status: Deficiency/Insufficiency: < or = 30 ng/ml. Sufficiency/Optimal Levels: 31-80 ng/mL Toxicity: > 100 ng/mL. Test performed by chemiluminescent immunoassay. Performed By: #### 1 989-3 ####[facility] [id number] [address] OF [facility] BLOOD TB SCREENon 11-23-2023 M. tuberculosis tuberculin stim IFN-g Ql (Bld) Negative Normal [facility] Comment on above: Order Comment: Vivek sanchez Type: BLOOD SPECIMENOrdering Facility: [facility] Address: [address] [place] [address] Performed By: #### I NFTBP ####[facility] [id number] [place] [address] [place] MITOGEN MINUS NIL >9.83 Normal >=0.50 [facility] Comment on above: Order Comment: Vivek sanchez Type: BLOOD SPECIMENOrdering Facility: [facility] Address: [address] [place] [address] Performed By: #### I NFTBP ####[facility] [id number] [address] STATES OF [facility] TB GAMMA INTERPRETATION Infection with M. tuberculosis complex is unlikely. If latent tuberculosis infection is highly suspected, a negative result does not rule out the infection. Specimens from immunocompromised patients and those <5 years of age may show false negative results. In case of a contact investigation, please repeat 8-12 weeks after a known exposure. Normal [facility] Comment on above: Order Comment: Vivek sanchez Type: BLOOD SPECIMENOrdering Facility: [facility] Address: [address] [place] [address] Performed By: #### I NFTBP ####[facility] LABCLIA [id number] [place] [address] [place] TB NIL 0.17 IU/mL Normal <=8.00 [facility] Comment on above: Order Comment: Speci men Type: BLOOD SPECIMENOrdering Facility: [facility] Address: [address] [place] [address] Performed By: #### I NFTBP ####[facility] LABCLIA [id number] [place] [address] [place] TB1 AG MINUS NIL 0.13 IU/mL Normal <0.35 [facility] Comment on above: Order Comment: Speci men Type: BLOOD SPECIMENOrdering Facility: [facility] Address: [address] [place] [address] Performed By: #### I NFTBP ####[facility] LABCLIA [id number] [place] [address] [place] TB2 AG MINUS NIL 0.13 IU/mL Normal <0.35 [facility] Comment on above: Order Comment: Speci men Type: BLOOD SPECIMENOrdering Facility: [facility] Address: [address] [place] [address] Performed By: #### I NFTBP ####[facility] LABCLIA [id number] [place] [address] [place] CBC panel Auto (Bld)on 11-23 Erythrocyte distribution width (RBC) [Ratio] 14.2 % Normal 11.5-15.0 [facility] Comment on above: Order Comment: Speci men Type: BLOOD SPECIMENOrdering Facility: [facility] Address: [address] [place] [address] Performed By: #### 5 8410-2, 4537-7 ####[facility] LABCLIA [id number] [place] [address] [place] Hematocrit (Bld) [Volume fraction] 40.3 % Normal 36.0-46.0 [facility] Comment on above: Order Comment: Speci men Type: BLOOD SPECIMENOrdering Facility: [facility] Address: [address] [place] [address] Performed By: #### 5 8410-2, 4537-7 ####[facility] LABIA [id number] [place] [address] [place] Hemoglobin (Bld) [Mass/Vol] 13.5 g/dL Normal 11.5-15.5 [facility] Comment on above: Order Comment: Speci men Type: BLOOD SPECIMENOrdering Facility: [facility] Address: [address] [place] [address] Performed By: #### 5 8410-2, 4537-7 ####[facility] LABIA [id number] [place] [address] [place] MCH (RBC) [Entitic mass] 30.5 pg Normal 26.0-34.0 [facility] Comment on above: Order Comment: Speci men Type: BLOOD SPECIMENOrdering Facility: [facility] Address: [address] [place] [address] Performed By: #### 5 8410-2, 4537-7 ####[facility] LABIA [id number] [place] [address] [place] MCHC (RBC) [Mass/Vol] 33.5 g/dL Normal 30.5-36.0 [facility] Comment on above: Order Comment: Speci men Type: BLOOD SPECIMENOrdering Facility: [facility] Address: [address] [place] [address] Performed By: #### 5 8410-2, 4537-7 ####[facility] LABIA [id number] [place] [address] [place] MCV (RBC) [Entitic vol] 91.0 fL Normal 80.0-100.0 [facility] Comment on above: Order Comment: Speci men Type: BLOOD SPECIMENOrdering Facility: [facility] Address: [address] [place] [address] Performed By: #### 5 8410-2, 4536-7 ####[facility] LABCLIA [id number] [place] [address] [place] Nucleated RBC (Bld) [#/Vol] 10*3/uL Normal <0.01 [facility] Comment on above: Order Comment: Speci men Type: BLOOD SPECIMENOrdering Facility: [facility] Address: [address] [place] [address] Performed By: #### 5 8410-2, 453-7 ####[facility] LABCLIA [id number] [place] [address] [place] Platelet mean volume (Bld) [Entitic vol] 10.2 fL Normal 9.0-12.7 [facility] Comment on above: Order Comment: Speci men Type: BLOOD SPECIMENOrdering Facility: [facility] Address: [address] [place] [address] Performed By: #### 5 8410-2, 4536-7 ####[facility] LABCLIA [id number] [place] [address] [place] Platelets (Bld) [#/Vol] 302 10*3/uL Normal 150-400 [facility] Comment on above: Order Comment: Speci men Type: BLOOD SPECIMENOrdering Facility: [facility] Address: [address] [place] [address] Performed By: #### 5 8410-2, 4536-7 ####[facility] LABCLIA [id number] [place] [address] [place] RBC (Bld) [#/Vol] 4.43 10*6/uL Normal 3.90-5.20 [facility] Comment on above: Order Comment: Speci men Type: BLOOD SPECIMENOrdering Facility: [facility] Address: [address] [place] [address] Performed By: #### 5 8410-2, 4537-7 ####[facility] LABCLIA [id number] [place] [address] [place] WBC (Bld) [#/Vol] 8.77 10*3/uL Normal 3.70-11.00 [facility] Comment on above: Order Comment: Speci men Type: BLOOD SPECIMENOrdering Facility: [facility] Address: [address] [place] [address] Performed By: #### 5 8410-2, 4537-7 ####[facility] LABCLIA [id number] [address] [place] CNOVon 11-23-2023 CNOV Office Visit (CHAD ) ELSA CATALAN ([id number]) 1960 F Date Time Provider Department 11/23/23 [...] Increase potassium intake No response lyrica OFF Hydroxychloroquine/Jared quenil/humira/xeljanz Methotrexate 10tabs once a week or 1ml sq injection food every other a week (HOLD 1-2weeks after vaccines) Do not drink alcohol while taking methotrexate Have bloodwork every 8-12weeks for monitoring while taking Methotrexate Please take folic acid 1mg tab:Take 1tab by mouth daily SSZ 500mg tab 3times a day Rinvoq daily by mouth arava/leflunamide daily with food hold methotrexate/rinvoq/ar [place] if on antibiotics or if you have any signs/symptoms of infection. wear wrist splints at night and as needed for carpal tunnel syndrome may take prednisone for flares No NSAIDs (ex. motrin, etc.)on pred. eyedrops as instructed gabapentin/neurontin 300mg 3tab 3times a day see hand ortho for trigger finger injection/release/hand /wrist/elbow pain nonfasting bloodwork as scheduled Thank you. [...] the flow of saliva in many patients. Edgar flavored sugarless tablets and sugar-free chewing gum [...] dry e (more content not included)... Normal [facility] CRP SerPl-mCncon 11-23-2023 CRP [Mass/Vol] 0.7 mg/dL Normal <0.9 [facility] Comment on above: Order Comment: Vivek sanchez Type: BLOOD SPECIMENOrdering Facility: [facility] Address: [address] [place] [address] Performed By: #### 1 988-5, 2132-06, ####[facility] [id number] [address] [address] [place] Comprehensive metabolic 2000 panelon 11-23-2023 Albumin [Mass/Vol] 4.5 g/dL Normal 3.9-4.9 [facility] Comment on above: Order Comment: Vivek sanchez Type: BLOOD SPECIMENOrdering Facility: [facility] Address: [address] [place], [place] [address] Performed By: #### 1 988-5, 2132-06, ####[facility]CLIA [id number] [address] [address] [place] ALP [Catalytic activity/Vol] 79 U/L Normal 34-123 [facility] Comment on above: Order Comment: Vivek sanchez Type: BLOOD SPECIMENOrdering Facility: [facility] Address: [address] [place], [place] [address] Performed By: #### 1 988-5, 2132-06, ####[facility]CLIA [id number] [address] [address] [place] ALT [Catalytic activity/Vol] 25 U/L Normal 7-38 [facility] Comment on above: Order Comment: Speci men Type: BLOOD SPECIMENOrdering Facility: [facility] Address: [address] [place] [address] Performed By: #### 1 988-5, 2132-06, ####[facility] LABCLIA [id number] [place] [id number] [place] Anion gap [Moles/Vol] 13 mmol/L Normal 9-18 [facility] Comment on above: Order Comment: Speci men Type: BLOOD SPECIMENOrdering Facility: [facility] Address: [address] [place] [address] Performed By: #### 1 988-5, 2132-06, ####[facility]CLIA [id number] [place] [address] [place] AST [Catalytic activity/Vol] 25 U/L Normal 13-35 [facility] Comment on above: Order Comment: Speci men Type: BLOOD SPECIMENOrdering Facility: [facility] Address: [address] [place] [address] Performed By: #### 1 988-5, 2132-06, ####[facility] LABCLIA [id number] [place] [id number] [place] Bilirubin [Mass/Vol] 0.3 mg/dL Normal 0.2-1.[address] [facility] Comment on above: Order Comment: Speci men Type: BLOOD SPECIMENOrdering Facility: [facility] Address: [address] [place] [address] Performed By: #### 1 988-5, 2132-06, ####[facility] LABCLIA [id number] [place] [id number] [place] Calcium [Mass/Vol] 9.4 mg/dL Normal 8.5-10.2 [facility] Comment on above: Order Comment: Speci men Type: BLOOD SPECIMENOrdering Facility: [facility] Address: [address] [place] [address] Performed By: #### 1 988-5, 2132-06, ####[facility] LABCLIA [id number] [place] [address] [place] Chloride [Moles/Vol] 100 mmol/L Normal 97-[address] [facility] Comment on above: Order Comment: Speci men Type: BLOOD SPECIMENOrdering Facility: [facility] Address: [address] [place] [address] Performed By: #### 1 988-5, 2132-06, ####[facility] LABCLIA [id number] [place] [address] [place] CO2 [Moles/Vol] 27 mmol/L Normal 22-30 [facility] Comment on above: Order Comment: Speci men Type: BLOOD SPECIMENOrdering Facility: [facility] Address: [address] [place] [address] Performed By: #### 1 988-5, 2132-06, ####[facility] LABCLIA [id number] [place] [address] [place] Creatinine [Mass/Vol] 0.72 mg/dL Normal 0.58-0.96 [facility] Comment on above: Order Comment: Speci men Type: BLOOD SPECIMENOrdering Facility: [facility] Address: [address] [place] [address] Performed By: #### 1 988-5, 2132-06, ####[facility] LABCLIA [id number] [place] [address] [place] Creatinine and Glomerular filtration rate.predicted panel (S/P/Bld) 94 mL/min/1.73m??? Normal >=60 [facility] Comment on above: Order Comment: Vivek sanchez Type: BLOOD SPECIMENOrdering Facility: [facility] Address: [address] [place] [address] Result Comment: Carrie mated Glomerular Filtration Rate [...] reflect actual GFR. Performed By: #### 1 988-5, 2132-06, ####[facility] LABIA [id number] [place] [id number] [place] Glucose [Mass/Vol] 146 mg/dL High 74-99 [facility] Comment on above: Order Comment: Vivek sanchez Type: BLOOD SPECIMENOrdering Facility: [facility] Address: [address] [place] [address] Result Comment: The [place] Diabetes Association (ADA) provides guidance for cutoff [...] Standards of Medical Care in Diabetes 2016, [place] [employer] Association. Diabetes Care. 2016.39(Suppl 1). Performed By: #### 1 988-5, 2132-06, ####[facility] LABIA [id number] [address] [address] [place] Potassium [Moles/Vol] 3.9 mmol/L Normal 3.7-5.1 [facility] Comment on above: Order Comment: Speci men Type: BLOOD SPECIMENOrdering Facility: [facility] Address: [address] [place] [address] Performed By: #### 1 988-5, 2132-06, ####[facility] LABCLIA [id number] [address] [address] [place] Protein [Mass/Vol] 7.9 g/dL Normal 6.3-8.0 [facility] Comment on above: Order Comment: Speci men Type: BLOOD SPECIMENOrdering Facility: [facility] Address: [address] [place] [address] Performed By: #### 1 988-5, 2132-06, ####[facility] LABCLIA [id number] [place] [id number] [place] Sodium [Moles/Vol] 140 mmol/L Normal 136-144 [facility] Comment on above: Order Comment: Speci men Type: BLOOD SPECIMENOrdering Facility: [facility] Address: [address] [place] [address] Performed By: #### 1 988-5, 2132-06, ####[facility] LABCLIA [id number] [address] [address] [place] Urea nitrogen [Mass/Vol] 16 mg/dL Normal 7-21 [facility] Comment on above: Order Comment: Speci men Type: BLOOD SPECIMENOrdering Facility: [facility] Address: [address] [place] [address] Performed By: #### 1 988-5, 2132-06, ####[facility] LABCLIA [id number] [address] [address] [place] ESR Westergren method (Bld) [Velocity]on 11-23-2023 ESR (Bld) [Velocity] 15 mm/h Normal 0-[address] [facility] Comment on above: Order Comment: Speci men Type: BLOOD SPECIMENOrdering Facility: [facility] Address: [address] [place] [address] Performed By: #### 5 8410-2, 4537-7 ####[facility] LABCLIA [id number] [place] [address] [place] Vit [facility]12 [facility]24 Cobalamin (Vitamin B12) [Mass/Vol] 1203 pg/mL Normal 232-1245 [facility] Comment on above: Order Comment: Speci men Type: BLOOD SPECIMENOrdering Facility: [facility] Address: [address] [place] [address] Performed By: #### 1 988-5, 2132-9, 06812-7 ####[facility] LABCLIA [id number] [address] [place] MG MAMM SCREEN 3D LEXX CADon 12-07-2022 MG MAMM SCREEN 3D LEXX CAD Patient: ELSA CATALAN Exam Date: 12/07/2022 : 1960 Gender:F Ordering : [facility] Admission #: [id number] Family : Order #: [id number] CLICK HERE TO VIEW EXAM RADIOLOGY REPORT PROCEDURE: MAMMOGRAM SCREENING 3D BILATERAL CAD COMPARISON: MG MAMM LEXX DIAG W CAD, 04/30/2014. INDICATIONS: Screening mammography Calculator Name NCI Breast Cancer Risk Assessment Tool 5 Year Breast Cancer Risk 1.80% Lifetime Breast Cancer Risk 8.20% Personal Breast Cancer No Personal Ovarian Cancer No Treatments None Family Cancers None LOCATION: [facility] BREAST COMPOSITION: Heterogeneously dense,which may obscure small [...] MD on 12/08/2022 at 08:08 Normal [facility] NM STRESS/REST MULTIon 11-02 NM STRESS/REST MULTI Patient: ELSA CATALAN Exam Date: 11/02/2022 : 1960 Gender:F Ordering : [facility] Admission #: [id number] Family : Order #: [id number] CLICK HERE TO VIEW EXAM RADIOLOGY REPORT [...] MD on 11/03/2022 at 07:39 Normal [facility] Covid-19 PCR (CVDTBH)on 09-01 SARS-CoV-2 (COVID-19) RNA ISAC+probe Ql (Unsp spec) Not detected Normal NOT DETECTED [facility] Comment on above: Result Comment: This test is not yet approved or cleared by the [place] FDA. When there are no FDA-approved or cleared tests available, and other criteria are met, FDA can make tests available under an emergency access mechanism called an Emergency Use Authorization (EUA). The EUA for this test is supported by the [place] of Health and Human Service's (HHS's) declaration [...] Performed By: #### F T3, TSH #### [facility] [address] [place] [address] Dr. Мария Horne INFLUENZA A AND B [facility] 09-19 [facility] SEE BELOW Normal [facility] Comment on above: Result Comment: Nega tive for Flu A protein angiten. Infection due to Flu A cannot be ruled out. Flu A angiten in the sample may be below the detection limit of the test. Performed By: #### F T3, TSH #### [facility] [address] [place] [address] Dr. Мар[facility] Normal [facility] Comment on above: Result Comment: Nega tive for Flu B protein antigen. Infection due to Flu B cannot be ruled out. Flu B antigen in the sample may be below the detection limit of the test. Performed By: #### F T3, TSH #### [facility] [address] [place] [address] Dr. Мария Horne INFLUENZA A AG Negative Normal NEGATIVE SEE COMMENT [facility] Comment on above: Performed By: #### F T3, TSH #### [facility] [address] [place] [address] Dr. Мария Horne INFLUENZA B AG Negative Normal NEGATIVE SEE COMMENT [facility] Comment on above: Performed By: #### F T3, TSH #### [facility] [address] [place] [address] Dr. Мария Horne INTERNAL CONTROLS Within Normal Limits Normal Wi thin Normal Limits [facility] Comment on above: Performed By: #### F T3, TSH #### [facility] [address] [place] [address] [address] Мария Horne XR CHEST 2 Von [...] by: LATASHA HAYES Date: 2022-07-06 16:11 Normal [facility] FREE T3on 02-01-2022 FREE T3 2.58 pg/mlL Normal 2.18-3.98 [facility] Comment on above: Performed By: #### F T3, TSH #### [facility] [address] [place] [address] Dr. Мария Horne FREE T4on 02-01-2022 Free T4 [Mass/Vol] 1.25 ng/dL Normal 0.76-1.46 [facility] Comment on above: Performed By: #### F T4 #### [facility] [address] [place] [address] Dr. Мария Horne TSHon 02-01-2022 TSH 1.679 uIU/mL Normal 0.470-4.680 [facility] Comment on above: Performed By: #### F T3, TSH #### [facility] [address] [place] [address] Dr. Мария Horne TSH RANGE SEE BELOW Normal [facility] Comment on above: Result Comment: <0.3 4 UIU/ml HYPERTHYROID 0.34-5.60 UIU/ml EUTHYROID >5.60 UIU/ml HYPOTHYROID Performed By: #### F T3, TSH #### [facility] [address] [place] [address] Dr. Мария Horne AMYLASEon 01-13-2022 Amylase [Catalytic activity/Vol] 65 U/L Normal 25-115 [facility] Comment on above: Performed By: #### L IPA JANEL #### [facility] [address] [place] [address] Dr. Мария Horne CBC AUTO DIFFon 01-13-2022 BASO # 0.1 103/ul Normal 0.0-0.1 [facility] Comment on above: Performed By: #### C BC #### [facility] [address] [place] [address] Dr. Мария Horne Basophils/100 WBC (Bld) 1.1 % Normal 0.2-2.0 [facility] Comment on above: Performed By: #### C BC #### [facility] [address] [place] [address] Dr. Мария Horne EO # 0.2 103/ul Normal 0.0-0.7 [facility] Comment on above: Performed By: #### C BC #### [facility] [address] [place] [address] Dr. Мария Horne Eosinophils/100 WBC (Bld) 2.8 % Normal 0.9-7.0 [facility] Comment on above: Performed By: #### C BC #### [facility] [address] [place] [address] Dr. Мария Horne Erythrocyte distribution width (RBC) [Ratio] 13.7 % Normal 11.0-15.0 [facility] Comment on above: Performed By: #### C BC #### [facility] [address] [place] [address] Dr. Мария Horne Hematocrit (Bld) [Volume fraction] 37.3 % Normal 36.0-48.0 [facility] Comment on above: Performed By: #### C BC #### [facility] [address] [place] [address] Dr. Мария Horne Hemoglobin (Bld) [Mass/Vol] 12.4 g/dL Normal 12.0-16.0 [facility] Comment on above: Performed By: #### C BC #### [facility] [address] [place] [address] Dr. Мария Horne IG # 0.01 10e3/ul Normal 0.00-0.03 [facility] Comment on above: Performed By: #### C BC #### [facility] [address] [place] [address] Dr. Мария Horne IG % 0.2 % Normal 0.0-0.5 [facility] Comment on above: Performed By: #### C BC #### [facility] [address] [place] [address] Dr. Мария Horne LYMPH # 2.0 103/ul Normal 1.2-3.8 [facility] Comment on above: Performed By: #### C BC #### [facility] [address] [place] [address] Dr. Мария Horne Lymphocytes/100 WBC (Bld) 33.2 % Normal 20.5-60.0 [facility] Comment on above: Performed By: #### C BC #### [facility] [address] [place] [address] Dr. Мария Horne MANUAL DIFF REQ NO Normal [facility] Comment on above: Performed By: #### C BC #### [facility] [address] [place] [address] Dr. Мария Horne MCH (RBC) [Entitic mass] 30.0 pg Normal 26.7-34.0 [facility] Comment on above: Performed By: #### C BC #### [facility] [address] [place] [address] Dr. Мария Horne MCHC (RBC) [Mass/Vol] 33.2 g/dL Normal 29.9-35.2 [facility] Comment on above: Performed By: #### C BC #### [facility] [address] [place] [address] Dr. Мария Horne MCV (RBC) [Entitic vol] 90.1 fL Normal 81.0-99.0 [facility] Comment on above: Performed By: #### C BC #### [facility] [address] [place] [address] Dr. Мария Horne MONO # 0.9 103/ul Critically high 0.3-0.8 [facility] Comment on above: Performed By: #### C BC #### [facility] [address] [place] [address] Dr. Мария Horne Monocytes/100 WBC (Bld) 14.1 % Critically high 1.7-12.0 [facility] Comment on above: Performed By: #### C BC #### [facility] [address] [place] [address] Dr. Мария Horne NEUT # 3.0 103/ul Normal 1.4-6.5 [facility] Comment on above: Performed By: #### C BC #### [facility] [address] [place] [address] Dr. Мария Horne Neutrophils/100 WBC (Bld) 48.6 % Normal 43.0-75.0 [facility] Comment on above: Performed By: #### C BC #### [facility] [address] [place] [address] Dr. Мария Horne Platelet mean volume (Bld) [Entitic vol] 9.0 fL Critically low 9.5-13.5 [facility] Comment on above: Performed By: #### C BC #### [facility] [address] [place] [address] Dr. Мария Horne PLT 263 103/ul Normal 150-450 [facility] Comment on above: Performed By: #### C BC #### [facility] [address] [place] [address] Dr. Мария oHrne RBC 4.14 106/ul Critically low 4.20-5.40 [facility] Comment on above: Performed By: #### C BC #### [facility] [address] [place] [address] Dr. Мария Horne WBC 6.1 103/ul Normal 4.0-11.0 [facility] Comment on above: Performed By: #### C BC #### [facility] [address] [place] [address] ABDOMEN W CONon 2 CT ABDOMEN W CON EXAMINATION: CT ABDOMEN W CON HISTORY: Right upper quadrant pain [...] by: STU SAMUEL Date: 2022-01-13 10:05 Normal [facility] LIPASEon 01-13-2022 Lipase [Catalytic activity/Vol] 167.0 U/L Normal 23.0-300.0 [facility] Comment on above: Performed By: #### L IPA, JANEL #### [facility] [address] [place] [address] Dr. Мария Horne PROF 14(COMP METB)on 022 Albumin [Mass/Vol] 3.6 g/dL Normal 3.4-5.0 [facility] Comment on above: Performed By: #### F T3, TSH #### [facility] [address] [place] [address] [address] Мария Horne Albumin/Globulin [Mass ratio] 0.8 {ratio} Normal [facility] Comment on above: Performed By: #### F T3, TSH #### [facility] [address] [place] [address] Dr. Мария Horne ALP [Catalytic activity/Vol] 75 U/L Normal 46-116 [facility] Comment on above: Performed By: #### F T3, TSH #### [facility] [address] [place] [address] [address] Мария Horne ALT [Catalytic activity/Vol] 46 U/L Normal 14-59 [facility] Comment on above: Performed By: #### F T3, TSH #### [facility] [address] [place] [address] [address] Мария Horne Anion gap [Moles/Vol] 12.2 mmol/L Normal [facility] Comment on above: Performed By: #### F T3, TSH #### [facility] [address] [place] [address] [address] Мария Horne AST [Catalytic activity/Vol] 37 U/L Normal 15-37 [facility] Comment on above: Performed By: #### F T3, TSH #### [facility] [address] [place] [address] [address] Мария Horne Bilirubin [Mass/Vol] 0.4 mg/dL Normal 0.2-1.3 [facility] Comment on above: Performed By: #### F T3, TSH #### [facility] [address] [place] [address] [address] Мария Horne Calcium [Mass/Vol] 8.1 mg/dL Critically low 8.5-10.1 [facility] Comment on above: Performed By: #### F T3, TSH #### [facility] [address] [place] [address] [address] Мария Horne Chloride [Moles/Vol] 104 mmol/L Normal 98-107 [facility] Comment on above: Performed By: #### F T3, TSH #### [facility] [address] [place] [address] [address] Мария Horne CO2 [Moles/Vol] 27.3 mmol/L Normal 22.0-30.0 [facility] Comment on above: Performed By: #### F T3, TSH #### [facility] [address] [place] [address] [address] Мария Horne Creatinine [Mass/Vol] 0.73 mg/dL Normal 0.52-1.04 [facility] Comment on above: Performed By: #### F T3, TSH #### [facility] [address] [address] [address] Мария Horne EGFR-AF MEXICAN >60 Normal >=60 [facility] Comment on above: Performed By: #### F T3, TSH #### [facility] [address] [place] [address] [address] Мария Horne EGFR-NON AF MEXICAN >60 Normal >=60 [facility] Comment on above: Performed By: #### F T3, TSH #### [facility] [address] [address] [address] Мария Horne Globulin (S) [Mass/Vol] 4.5 g/dL Normal [facility] Comment on above: Performed By: #### F T3, TSH #### [facility] [address] [place] [address] [address] Мария Horne Glucose [Mass/Vol] 95 mg/dL Normal 74-106 [facility] Comment on above: Performed By: #### F T3, TSH #### [facility] [address] [place] [address] [address] Мария Horne Potassium [Moles/Vol] 3.5 mmol/L Normal 3.4-5.0 [facility] Comment on above: Performed By: #### F T3, TSH #### [facility] [address] [address] [address] Мария Horne Protein [Mass/Vol] 8.1 g/dL Normal 6.1-8.2 [facility] Comment on above: Performed By: #### F T3, TSH #### [facility] [address] [address] [address] Мария Horne Sodium [Moles/Vol] 140 mmol/L Normal 137-145 [facility] Comment on above: Performed By: #### F T3, TSH #### [facility] [address] [address] [address] Мария Horne Urea nitrogen [Mass/Vol] 15.0 mg/dL Normal 7.0-18.0 [facility] Comment on above: Performed By: #### F T3, TSH #### [facility] [address] [place] [address] Dr. Мария Horne Urea nitrogen/Creatinine [Mass ratio] 20.5 mg/mg Normal [facility] Comment on above: Performed By: #### F T3, TSH #### [facility] [address] [place] [address] Dr. Мария Horne US SINGLE QUAD RT [...] LATASHA HOWELL Date: 2021-12-31 10:44 Normal [facility] INSULINon 12-29-2021 Insulin 8.7 uIU/mL Normal 2.6-24.9 [facility] Comment on above: Performed By: #### I NSULIN #### [facility] [address] [place] [address] Dr. Мария Horne CBC AUTO DIFFon 12-28-2021 BASO # 0.1 103/ul Normal 0.0-0.1 [facility] Comment on above: Performed By: #### C BC #### [facility] [address] [place] [address] Dr. Мария Horne Basophils/100 WBC (Bld) 0.8 % Normal 0.2-2.0 [facility] Comment on above: Performed By: #### C BC #### [facility] [address] [place] [address] Dr. Мария Horne EO # 0.3 103/ul Normal 0.0-0.7 [facility] Comment on above: Performed By: #### C BC #### [facility] [address] [place] [address] Dr. Мария Horne Eosinophils/100 WBC (Bld) 3.2 % Normal 0.9-7.0 [facility] Comment on above: Performed By: #### C BC #### [facility] [address] [place] [address] Dr. Мария Horne Erythrocyte distribution width (RBC) [Ratio] 13.7 % Normal 11.0-15.0 [facility] Comment on above: Performed By: #### C BC #### [facility] [address] [place] [address] Dr. Мария Horne Hematocrit (Bld) [Volume fraction] 43.1 % Normal 36.0-48.0 [facility] Comment on above: Performed By: #### C BC #### [facility] [address] [place] [address] Dr. Мария Horne Hemoglobin (Bld) [Mass/Vol] 14.5 g/dL Normal 12.0-16.0 [facility] Comment on above: Performed By: #### C BC #### [facility] [address] [place] [address] Dr. Мария Horne IG # 0.02 10e3/ul Normal 0.00-0.03 [facility] Comment on above: Performed By: #### C BC #### [facility] [address] [place] [address] Dr. Мария Horne IG % 0.2 % Normal 0.0-0.5 [facility] Comment on above: Performed By: #### C BC #### [facility] [address] [place] [address] Dr. Мария Horne LYMPH # 3.0 103/ul Normal 1.2-3.8 [facility] Comment on above: Performed By: #### C BC #### [facility] [address] [place] [address] Dr. Мария Horne Lymphocytes/100 WBC (Bld) 35.8 % Normal 20.5-60.0 [facility] Comment on above: Performed By: #### C BC #### [facility] [address] [place] [address] Dr. Мария Horne MANUAL DIFF REQ NO Normal [facility] Comment on above: Performed By: #### C BC #### [facility] [address] [place] [address] Dr. Мария Horne MCH (RBC) [Entitic mass] 30.0 pg Normal 26.7-34.0 [facility] Comment on above: Performed By: #### C BC #### [facility] [facility] [address] [place] [address] Dr. Мария Horne MCHC (RBC) [Mass/Vol] 33.6 g/dL Normal 29.9-35.2 [facility] Comment on above: Performed By: #### C BC #### [facility] [address] [place] [address] Dr. Мария Horne MCV (RBC) [Entitic vol] 89.2 fL Normal 81.0-99.0 [facility] Comment on above: Performed By: #### C BC #### [facility] [address] [place] [address] Dr. Мария Horne MONO # 0.8 103/ul Normal 0.3-0.8 [facility] Comment on above: Performed By: #### C BC #### [facility] [address] [place] [address] Dr. Мария Horne Monocytes/100 WBC (Bld) 9.1 % Normal 1.7-12.0 [facility] Comment on above: Performed By: #### C BC #### [facility] [address] [place] [address] Dr. Мария Horne NEUT # 4.2 103/ul Normal 1.4-6.5 [facility] Comment on above: Performed By: #### C BC #### [facility] [address] [place] [address] Dr. Мария Horne Neutrophils/100 WBC (Bld) 50.9 % Normal 43.0-75.0 [facility] Comment on above: Performed By: #### C BC #### [facility] [address] [address] [address] Мария Horne Platelet mean volume (Bld) [Entitic vol] 9.8 fL Normal 9.5-13.5 [facility] Comment on above: Performed By: #### C BC #### [facility] [address] [address] [address] Мария Horne PLT 314 103/ul Normal 150-450 [facility] Comment on above: Performed By: #### C BC #### [facility] [address] [address] [address] Мария Horen RBC 4.83 106/ul Normal 4.20-5.40 [facility] Comment on above: Performed By: #### C BC #### [facility] [address] [place] [address] Dr. Мария Horne WBC 8.2 103/ul Normal 4.0-11.0 [facility] Comment on above: Performed By: #### C BC #### [facility] [address] [address] [address] Мария Horne FREE THYROXINE INDEX T7on FTI 1.38 Normal [facility] Comment on above: Performed By: #### F T3, TSH #### [facility] [address] [place] [address] Dr. Мария Horne T3U 32.0 % Normal 23.5-40.5 [facility] Comment on above: Performed By: #### F T3, TSH #### [facility] [address] [address] [address] Мария Horne T4 [Mass/Vol] 4.30 ug/dL Critically low 5.53-11.00 [facility] Comment on above: Performed By: #### F T3, TSH #### [facility] [address] [place] [address] Dr. Мария Horne GLYCOHEMOGLOBIN A1Con 2021 ADA RECOMMENDATION ADA THERAPEUTIC TARG ET 6.0 - 7.0 ACTION SUGGESTED > 7.0 Normal [facility] Comment on above: Performed By: #### F T3, TSH #### [facility] [address] [address] [address] Мария Horne Glucose [Mass/Vol] 252 mg/dL Normal [facility] Comment on above: Performed By: #### F T3, TSH #### [facility] [address] [address] [address] Мария Horne HbA1c (Bld) [Mass fraction] 10.4 % Critically high <=6.0 [facility] Comment on above: Performed By: #### F T3, TSH #### [facility] [address] [place] [address] Dr. Мария Horne IRONon 12-28-2021 Iron [Mass/Vol] 84.0 ug/dL Normal 37.0-170.0 [facility] Comment on above: Performed By: #### I JENNIFER #### [facility] [address] [place] [address] Dr. Мария Horne LIPID PROFILEon 12-28-2021 CHOL-HDL RATIO NORM SEE BELOW Normal [facility] Comment on above: Result Comment: 3.3 - 4.4 LOW RISK 4.4 - 7.1 AVERAGE RISK 7.1 - 11.0 MODERATE RISK >11.0 HIGH RISK Performed By: #### F T3, TSH #### [facility] [address] [place] [address] Dr. Мария Horne Cholesterol [Mass/Vol] 217 mg/dL Critically high <=200 [facility] Comment on above: Performed By: #### F T3, TSH #### [facility] [address] [address] [address] аМрия Horne Cholesterol in HDL [Mass/Vol] 47 mg/dL Normal 40-60 [facility] Comment on above: Performed By: #### F T3, TSH #### [facility] [address] [place] [address] Dr. Мария Horne Cholesterol in LDL [Mass/Vol] 126.6 mg/dL Normal [facility] Comment on above: Performed By: #### F T3, TSH #### [facility] [address] [place] [address] Dr. Мария Horne Cholesterol.total/Chol esterol in HDL [Mass ratio] 4.6 {ratio} Normal [facility] Comment on above: Performed By: #### F T3, TSH #### [facility] [address] [address] [address] Мария Horne HDL NORMAL > or = 60 mg/dl - LO W CARDIOVASCULAR RISK <40 mg/dl - HIGH CARDIOVASCULAR RISK Normal [facility] Comment on above: Performed By: #### F T3, TSH #### [facility] [address] [address] [address] Мария Horne LDL CALC NORMAL SEE BELOW Normal [facility] Comment on above: Result Comment: <100 mg/dl OPTIMAL 100 - 129 mg/dl NEAR OR ABOVE OPTIMAL 130 - 159 mg/dl BORDERLINE HIGH 160 - 189 mg/dl HIGH >190 mg/dl VERY HIGH Performed By: #### F T3, TSH #### [facility] [address] [place] [address] Dr. Мария Horne Triglyceride [Mass/Vol] 217 mg/dL Critically high <=150 [facility] Comment on above: Performed By: #### F T3, TSH #### [facility] [address] [address] [address] Мария Horne VLDL CALC 43.4 mg/dL Normal [facility] Comment on above: Performed By: #### F T3, TSH #### [facility] [address] [address] [address] Мария Horne OCC BLD IMMUNO SCREENon 12-01 OCCULT BLOOD Negative Normal NEGATIVE [facility] Comment on above: Performed By: #### O BSCRN #### [facility] [address] [place] [address] Dr. Мария Horne PROF 14(COMP METB)on 022 Albumin [Mass/Vol] 3.8 g/dL Normal 3.4-5.0 [facility] Comment on above: Performed By: #### F T3, TSH #### [facility] [address] [place] [address] Dr. Мария Horne Albumin/Globulin [Mass ratio] 0.7 {ratio} Normal [facility] Comment on above: Performed By: #### F T3, TSH #### [facility] [address] [address] [address] Мария Horne ALP [Catalytic activity/Vol] 81 U/L Normal 46-116 [facility] Comment on above: Performed By: #### F T3, TSH #### [facility] [address] [address] [address] Мария Horne ALT [Catalytic activity/Vol] 36 U/L Normal 14-59 [facility] Comment on above: Performed By: #### F T3, TSH #### [facility] [address] [address] [address] Мария Horne Anion gap [Moles/Vol] 14.4 mmol/L Normal [facility] Comment on above: Performed By: #### F T3, TSH #### [facility] [address] [place] [address] Dr. Мария Horne AST [Catalytic activity/Vol] 26 U/L Normal 15-37 [facility] Comment on above: Performed By: #### F T3, TSH #### [facility] [address] [place] [address] Dr. Мария Horne Bilirubin [Mass/Vol] 0.4 mg/dL Normal 0.2-1.3 [facility] Comment on above: Performed By: #### F T3, TSH #### [facility] [address] [place] [address] Dr. Мария Horne Calcium [Mass/Vol] 8.4 mg/dL Critically low 8.5-10.1 [facility] Comment on above: Performed By: #### F T3, TSH #### [facility] [address] [place] [address] Dr. Мария Horne Chloride [Moles/Vol] 99 mmol/L Normal 98-107 [facility] Comment on above: Performed By: #### F T3, TSH #### [facility] [address] [address] [address] Мария Horne CO2 [Moles/Vol] 28.8 mmol/L Normal 22.0-30.0 [facility] Comment on above: Performed By: #### F T3, TSH #### [facility] [address] [address] [address] Мария Horne Creatinine [Mass/Vol] 0.80 mg/dL Normal 0.52-1.04 [facility] Comment on above: Performed By: #### F T3, TSH #### [facility] [address] [address] [address] Мария Horne EGFR-AF MEXICAN >60 Normal >=60 [facility] Comment on above: Performed By: #### F T3, TSH #### [facility] [address] [address] [address] Мария Horne EGFR-NON AF MEXICAN >60 Normal >=60 [facility] Comment on above: Performed By: #### F T3, TSH #### [facility] [address] [address] [address] Мария Horne Globulin (S) [Mass/Vol] 5.1 g/dL Normal [facility] Comment on above: Performed By: #### F T3, TSH #### [facility] [address] [address] [address] Мария Horne Glucose [Mass/Vol] 212 mg/dL Critically high 74-106 [facility] Comment on above: Performed By: #### F T3, TSH #### [facility] [address] [address] [address] Мария Horne Potassium [Moles/Vol] 3.2 mmol/L Critically low 3.4-5.0 [facility] Comment on above: Performed By: #### F T3, TSH #### [facility] [address] [address] [address] Мария Horne Protein [Mass/Vol] 8.9 g/dL Critically high 6.1-8.2 [facility] Comment on above: Performed By: #### F T3, TSH #### [facility] [address] [address] [address] Мария Horne Sodium [Moles/Vol] 139 mmol/L Normal 137-145 [facility] Comment on above: Performed By: #### F T3, TSH #### [facility] [address] [address] [address] Мария Horne Urea nitrogen [Mass/Vol] 14.0 mg/dL Normal 7.0-18.0 [facility] Comment on above: Performed By: #### F T3, TSH #### [facility] [address] [address] [address] Мария Horne Urea nitrogen/Creatinine [Mass ratio] 17.5 mg/mg Normal [facility] Comment on above: Performed By: #### F T3, TSH #### [facility] [address] [address] [address] Мария Horne TSHon 12-28-2021 TSH 115.875 uIU/mL Critically high 0.470-4.680 [facility] Comment on above: Performed By: #### F T3, TSH #### [facility] [address] [address] [address] Мария Horne TSH RANGE SEE BELOW Normal [facility] Comment on above: Result Comment: <0.3 4 UIU/ml HYPERTHYROID 0.34-5.60 UIU/ml EUTHYROID >5.60 UIU/ml HYPOTHYROID Performed By: #### F T3, TSH #### [facility] [address] [address] [address] Мария Horne Ambulatory Clinical Summaryo n 08-18-2021 Ambulatory Clinical Summary {[id number] [facility]}CD:[id number] Normal [facility] General Surgery Office/Clini c Noteon 08-18-2021 [...] (COVID-19) mRNA BNT-162b2 vax 07/01/2021 Recorded Normal [facility] Comment on above: Result Comment: Elec tronically Signed By: KEMAR EVANS, Lan Glass\Date and Time Signed: 08/18/21 16:32 EST Pathology Noteon 08-16-2021 Pathology Note [id number]#1.0 0CD:127 Normal [facility] Operative Reporton Operative Report [id number]#1.0 0CD:127 Normal [facility] Lab Reportson 08-09-2021 Lab Reports [id number]#1.0 0CD:127 Normal [facility] Letter [facility] August 04, 2021 TAWANDA COOK, [address] [place] [address] Re: ELSA CATALAN Date of : 1960 Thank you for your referral of Elsa Catalan who was seen on July 30, 2021, for right mid-back mass. An excisional biopsy is planned. I have enclosed my consultation note for your review. I will be happy to follow Elsa. Sincerely, Lan Hough MD General Surgery [facility] Consent for Procedure/Surger yon 08-02-2021 Consent for Procedure/Surgery [id number]#[id number] 0CD:127 Normal [facility] General Surgery Office/Clini c Noteon 08-02-2021 General Surgery Office/Clinic Note CD:[id number] [id number] 0tFiYndsAxETqjJq5cd8qo SE69nr0aYyTiDn3+CjwhRE 9DVFlQRSBo jG2qNTZVZkmRObBdJU3iOc LAYf2DOYQsHUvTQRudYB7h AFH2xehzyJ2sUU1cLLNgpZ NzDf5gk5c0 NkplIi5pCz3WDh76dRQquJ CcLDOEK2mqsF5mQI2egRLx A3MwMKKxUy4YGIs9rKnrqO 8dihQ5Zea2 qLM7In67n6rjvaOfj8VbRd H3FXazlKk4gZnmYDzggB6z LjHjXSSXkR2ugTmjEW9ygD 1lbnRhdGlv biI+MayePIHuLdn2nJCxAY 25I4WpoFutXnv8aIL4CGIb cZTlSLJqqJz1DWAPXVCIUG NvbXBhdGli zUUsVOUotlOtzaP8DevFZH UuCaSaJyd1K8feYCX+Cjxi m0E1May8TJx8NJS6fKorMY Dbt527AWJs hRwbnKzvkKUwz03cRUBovV OuZdDvx690CRFhemE6SUrj nRhtEtp0zQVmdYUoy5zwpD g5KnUsAUZu AehKFAOdaLbed4SxXxpEPD cjj6grfuNesQalMSJ8d7Hf QOidKOJkZKG8CrScAJ9+Cg kJPGNvbCB2 VYvvX130WyLizGRfs6iltH v1DjY7FKBzGm0KAFcqH87k J6AxbPV+Jfp7dSTsAKm+Cg kJPHRyPgoJ JEl6dEIae8M9tPJ9WlTtdb Irc3i8TVusXNF9QlF7WFT0 eQChuH6amShrxfvjbE0nCt I+CgkJCTxk pJTzR6rfc1S9ZyGgc3JwxX qbbkXoWWMaFiXon1fiDsjn FIRuxD6mPCN9TgJuLUVzeC DgBTLbCJ9y zfQcrODjJKXpDlTjA4Mrk6 0dg2HtYJRLY2nJPwUsGZX9 EQ7rJbFiTQ7xB1WzTSF9Rq ZzYCB2Wclm HGQqBc27O6O7KHUoWZk6OV JwAtCaDrJii7V0pGA3HcVg HABjgqp2VIFesIycUaczbS FuIGNsYXNz PCXyEBItP5Rsq69fkUXrwV M7Ec15b7HhmhItdDhcZX2v Yp2kwR68XCbkkMK2EXEmlF Q2UEXlrZIn LZJia0QcmOktuemyvP8fEH WwwO8fArL+L5tvWDDzU42u nXxsvI92ZY8vhIClRchhy6 Gbow5EQOyE JRTgqqYmyKToei5tOYPdyW Lwd110OK35ChTbVCsqv178 YB84bNooYZ5eMKYYL6EDIP 9NRUFTIiBk MFchMGUbedXzZ4L1hNozBW BQP6R7WvI2DM6RVcLrCHDU P7KhNvWmXk0VA3ZFAUiXWq Y5JaPzUMbo GLOiXYZzZrzqD8KwYWK3RE 55HFKoKLF2EQFqRiGvWfEe NnI9AxK2Wu3FGXdCAFZyuq OypBUlgp4x SRDlzZNsx121XI74zCBvkN RcDHHhkM14YNSiKBXoRGA5 D46jhDEvnQB9eET7HmAITM NBUkVfTUVB WtCrDSI3WV33gXA6gUU7Qx F5TtEsCPYbPDIpXGgaPKRq PJT3G0UcKTXfXHtgAz65JD PbDNO3BUIt SzU3OVIbUMsmBtNpNbU2xR gfabdhGK3pYIzpPL2jZ7Uq F8OpVT49MRUlb01zLeJqcp E1dJEgrZwu omTkn7JozELcmecpFHw9Ia zLCKe2M1Oyjw2PASaBOI9s aXY+QwdJSPx5DWm0TJDsJM NzPSJkZHNl W4Bhi14mQOQlZXLuHRPsFY KqJWEyFOmut3ZjdRUjJOS9 AAu7KUNzqmItp4XuJsnoPo BkZDpzZWN0 vF8lS17rJQ8gWF1FCbZlVT TkCiSkTmPtqMG2Oe45Hhhy LfDpCs8bETFnWHYrBmIzIG L0IO29Dgrg CcUzZKW7TOZaCFZ1rFqeNT YcYKJbkG1oHqO5tHm3Dq38 k2QxbeJbdHCrpd2cVKWkBX R5fH0vYLlm cGxheSI+CXZyAB7et9F6uF C5YkElnxRfz5FvH9b3DmEr f6rzWvT0AWt4CTKeC99sVX Yao307BWFv ZGVybGluZTsiPkhQSSBTdG AoTtzdc4Xpli90Z7ClSV4+ IczVSHm0GDn9USSfINNmNV JkZGVtcmNv bnRlbnQiIGRkOmNvbnRlbn C1aPRpZECWNJUBYYECA97Y HAZyPFOhKhCzBhQvVV0gHA O9eUF7EkW9 RXEVSOPnCZy0KUPgUYP0Jw 3ZLeBmOBKHRUEWTvagEQU0 GfVafYR6Xs86WCZ2WKK5ZH 6zFGV2IVRk ZzgaUAPpFr12Kin9KXbnBi xvLsKxQjiXERk0NBt6FBGg YXNzPSJkZGVtcmNvbnRlbn RpdGVtIGRk hbXiq1FnAbcqScWrHKcohO 3soQ2jkVnfL9E9rGkjUNW5 f7QykivyvAQpEHZfJeNdfc YypjP2sHPp ALXFDJJFJZAIX14PGXMyOR TwCwWqpXk3fJtdHASyKWsg HCWuA2N6QTUrAWqrLsN8SJ 00YzZjLTll EFOoQKmzYAn0BAX4IQBgDc N2yVucicipSG5wXVpdCV7t I5KaR9NbHE05ILKbf51lVc psIAu2PxsI STyBVBPjuuInsMTtnz2vCZ LmrRNwn445OE26vNHinPZr FQSooK11GGUyGGUyNOJ7Lq RuZmxvYXRp sejkzXylWU1jkM6cSZRdY9 g5CmMmJPtzf570LN22gQcn ND5iQLISC7NBXZ4HJIBPWh BkZDplbnRp fEuqLJ6iFwPuUT6jMllwOG G2S5RwVRC1IYNcWSGrFa97 VWTkAER6ZuU7OHIyDFT6Tz PzlB6apkD1 UDW8IvV3urGnaZPUn1R1bU RimNH1fL2pVe74H9Zczb7D ZisWARbhuJPuQ0wab8Z0Dz VlVS7rY62c aZKneMb2SM1zIQYrUF2azy TtiIIkZLPmSrW8phSvo0G7 eX4wi6D7pAU0ZkFweT7eaC dodCIgZGQ6 I57psJRvsZE8oIM7NmXDDC YNKwFiEKXEKhYaGQK9AT78 oEB3iDU4RaPheQJ7Ek1rPE W0HLOlHY8l JTYtDQXxRMTfSUFhQs26WC HmPvD2XJEvA8HsXOblhS5s QpSvZJECrT4ulMjpBZ5lnU 1lbnRhdGlv biI+PC7ivRT+UlxANPq7KH g3LWMhVXSgHGFrMWWrlcYp bnRlbnRpdGVtIGRkcmVtb3 ZhYmxlIiBk UQfqoH2acM8bjCfcK7I5qV kySXB0n9ZieeqruYRrNXFs GrPtkkDietM0uVAkSAUQGF GTIGPHT17D DBHoWSXiBrRhlKx8kOptCK IiIGlkPSJfYTIyNTZlYjAt TsU9WL33BgH4RXZeOQcbQa ZiZTNhYmMz TUD5ZyE2kYbnzrukNC2gLP mhVN5uJ3XzN7ReCS86HMYa z97uKolfHOi4QfiREEoHJX RpdiBjbGFz dh1vSXIbxWHzo877LL21sO IooZDaTBWojD11KSPpPISk LUG5WhBlRrztRVCjxkezaC qcTO2ymJ5l QNFcF5k0NoVaCLzlc744IW 90gCngBS0rROHMP5TSBV9A RUFTIiBkZDplbnRpdHlpZD 5zYtTsGF0n XzZmYjRjMjFkLWEzYmQtNG G8MU2iPLXrLZZbIhacVVO4 EQRjXnYyrS6pmwU8WXR4Fm U5ukSlhUQY i2D8oPCbzCL1wU3mDu77O1 Orkb7XTqfMQDzheGThC6ks h2H0TqHpSF8fI46fuLUwnP c4XP7uSDAd BM8dwtYuwZZoVIRsNiD7kr Joc4D0sZ4xl6G6eAP9VhHn zL1fsDdehLKiKHB7K30usG KutKS4bNT4 IlBBVENBUkVfTUVBUyIgZG B1NI12eAJ7yVI0ChFpzYY8 Yq9iSQZzBHB8HX1lW4SkIF RmNzQtYTll VR95VbqmFFKuFjx9CGOdOL ofbR9oKsAhLYQTxU6niOvr ST0tuV2zczJpvIrjotR+PC 9kaXY+CgoJ FXr7JOi4TWMlZAUmTGDvOB VtcmNvbnRlbnRpdGVtIGRk xaVdz1WtYjwtZzFrEEwmaB 8nnS9ahFzr V0L6rEdoPHP1l4OhwbhvtG NlDMYeWiSkgmNtnuT0lOOc GTNGJRDCBLACV09TCCNqDV RkOmVudGl0 eWlkPSIiIGlkPSJfOTRiNz EyWMYiMBNvRI83BXs7DBZy MJBnDaCeEMApVBV1OHEnQc X4dZxgozwa ZF9lCNytCM6kN9TeV2BrPQ 53YIYwf33rAdroQSg1EgiH RMoWFDSbgnMtwPAijq7hCX LtbWDxr361 RH80cCNqiXTuNIFdmP86HC CvSJNxQHB9XoMiKxptIZQy ojyawEcpQG1awH5fGZLvX1 s5WtPhSFdm o466OP25dZyvEV9zDECZP9 BFLK8HXGCIKzSgTMxgsiOd rSstPC4vHuXiDL2pUrrhQO L2SnLuCFN5 GBmhDAYvDw3kExEiTLO8JK evIcdvIsL7XINaaC7wdbU7 ZSH2XwH0emMjbLAXl1S9zF OsrAV8iE1p Xv56U7Jfvu8UGbwZMHfbeG FtK3ppn9J9FeQiFH8yO22q mICnbVc5PY3wRIDrLM2hcx FibGUiIGRk UuS7srFdf5T2aF4in7T3lD D1VuWeaO2mfYjgkJEuNZW1 D71nlYOgwWN3nOV9AqEJOY NBUkVfTUVB QuLnBQA3FV85rOJ5rKG3Vw IxmCQ9Mb06EHNzNELzIN0m JAIuTLJ4CVPhZZW8Qm4xBj ZmVNX6ZeCc OAniOYykuP8uWaRiQOCRbE 7bxVzpMH3keF5brmUwqKsw biI+LR3wtOY+KunYDAm5JN n9SNQyDLVv PSJkZGVtcmNvbnRlbnRpdG DkCYVgowGom1SlJkmrLkIk SPerlA4mbH7usBbnE5F5aM roXBI1d3Mp c (more content not included)... Normal [facility] Comment on above: Result Comment: Elec tronically Signed By: KEMAR EVANS, Lan Marshall.nydia\Date and Time Signed: 08/02/21 14:26 EDT Pre-Certification Formon Pre-Certification Form [id number]#1.0 0CD:127 [facility] Ambulatory Clinical Summaryo n 07-30-2021 Ambulatory Clinical Summary {[id number] }CD:[id number] [facility] XR ELBOW GENERAL 2V AP/LAT L Ton 07-26-2021 [facility] Physician Referralon 021 Physician Referral [id number] 0CD:127 [facility] NOH CARDIAC STRESS/REST INJE CTIONon 05-25-2021 [facility] CARDIAC STRESS/REST INJECTION Patient Name: ELSA CATALAN STUDY: MYOCARDIAL PERFUSION STRESS TEST WITH LEXISCAN Performing facility: [facility], [address] [place] [address], [address], [place] [address] [facility] Provider: Sarina Bird DO, [facility] PCP: Dr. Anant Johnson Supervising provider: Sarina Palomino MD, [facility] INDICATION: Chest Pain; HISTORY: Gender: F; Age: 60 y/o ; Height: 0 cm; Weight: 62.2209996 kg. High Cholesterol; Diabetes; HTN; SOB; Denies smoking. COMPARISON: No comparison. ACCESSION NUMBER(S): [id number]; [id number]; [id number] ORDERING CLINICIAN: ASIM BIRD TECHNIQUE: ONE DAY protocol. Stress injection: Date:05-25-21, 34.1 mCi of Myoview IV 20 seconds after rapid injection of Lexiscan. Rest injection: Date: 05-25-21, 11.1 mCi of Myoview IV at rest. The patient had a rapid injection of 0.4 mg of Lexiscan IV over 10 seconds. Imaging was performed by gated tomographic technique. Reason for Lexiscan: dizziness/unsteady/fal l risk STRESS TEST DATA: Resting heart rate [...] Electronically signed by: DAYANARA AYALA MD Normal [facility] ECG 12 lead ECGon 05-13-2021 ECG 12 lead ECG [place] [place] [address] Electrocardiograph Report Signed Patient: Elsa Catalan MR#: [id number] 0 : 1960 Acct:[id number] Age/Sex: 60 / F ADM Date: 05/11/21 Loc: Room: [address] [place] [address] Type: ADM INOo Attending Dr: Obdulia Garcia [...] Electronically Signed By:NOEMY ZAMORA MD Transcribed By: [facility] Dictated By: Noemy Zamora MD 05/13/21 0923 Signed By: 05/13/21 1156 [facility] Glucose Poct Glucometerson 0 05-13-2021 Commemt1 Glu2: Cleaned Meter [facility] Comment on above: Result Comment: PERF ORMED BY: [place] [id number] PATHOLOGIST [employer]BILE EQUIPMENT OPERATOR JIANLAN SUN M.D. Performed By: #### H S TROP, CMP, CBC, MG #### [facility] [address] Glucose [Mass/Vol] 149 mg/dL Normal [facility] Comment on above: Result Comment: [place] om Glucose Reference Range is dependent on time and content of last meal. Glucose of more than 200 mg/dL in a nonstressed, ambulatory subject supports the diagnosis of Diabetes Mellitus. Performed By: #### H S TROP, CMP, CBC, MG #### [facility] [address] Glucose [Mass/Vol] 89 mg/dL Normal [facility] Comment on above: Result Comment: [place] om Glucose Reference Range is dependent on time and content of last meal. Glucose of more than 200 mg/dL in a nonstressed, ambulatory subject supports the diagnosis of Diabetes Mellitus. PERFORMED BY: [place] [id number] PATHOLOGIST MOBILE EQUIPMENT OPERATOR RAMYA NEVES M.D. Performed By: #### H S TROP, CMP, CBC, MG #### [address] Basic Metabolic Panelon 08 Calcium [Mass/Vol] 8.0 mg/dL Low 8.2-10.2 [facility] Comment on above: Performed By: #### B MP, MG, CBC #### [place] [address] [place] Chloride [Moles/Vol] 100 mmol/L Normal 95-114 [facility] Comment on above: Performed By: #### B MP, MG, CBC #### [facility] [address] [place] [address] [place] CO2 [Moles/Vol] 19.9 mmol/L Low 22.0-30.0 [facility] Comment on above: Performed By: #### B MP, MG, CBC #### [facility] [address] Creatinine [Mass/Vol] 0.65 mg/dL Normal 0.44-1.03 [facility] Comment on above: Performed By: #### B MP, MG, CBC #### [facility] [address] Creatinine Clr Calc Pharmacy 85.09 [facility] Comment on above: Performed By: #### B MP, MG, CBC #### [facility] [address] Estimated GFR ( [place] > 60 [facility] Comment on above: Result Comment: GFR estimated reference range: According to KDOQI guidelines, <60 ml/min/1.73m2 is sufficient to diagnose a patient with chronic kidney disease. Performed By: #### B MP, MG, CBC #### [facility] [address] Estimated GFR (Non- Am > 60 [facility] Comment on above: Performed By: #### B MP, MG, CBC #### [facility] [address] Glucose [Mass/Vol] 312 mg/dL High 70-100 [facility] Comment on above: Result Comment: [place] Glucose Reference Range is dependent on time and content of last meal. Glucose of more than 200 mg/dL in a nonstressed, ambulatory subject supports the diagnosis of Diabetes Mellitus. ADA recommended reference range Performed By: #### B MP, MG, CBC #### [facility] [address] Potassium [Moles/Vol] 3.6 mmol/L Normal 3.5-5.1 [facility] Comment on above: Performed By: #### B MP, MG, CBC #### [facility] [address] [place] [address] [place] Sodium [Moles/Vol] 133 mmol/L Low 136-146 [facility] Comment on above: Performed By: #### B MP, MG, CBC #### [facility] [address] Urea nitrogen [Mass/Vol] 16 mg/dL Normal 9-23 [facility] Comment on above: Performed By: #### B MP, MG, CBC #### [facility] [address] [place], [place] [id number] [facility] COVID-19 [facility] [place] SARS-CoV-2 (COVID-19) RNA ISAC+probe Ql (Unsp spec) Negative Normal Negative [facility] Comment on above: Order Comment: Healt hcare Worker?: N Result Comment: Testing for SARS-CoV-2 by RT-PCR This test was developed and its performance characteristics determined by [employer]) and validated at the [facility]. This test has not been FDA [...] is terminated or revoked sooner. PERFORMED BY: [place] [address] PATHOLOGIST MOBILE EQUIPMENT OPERATOR RAMYA NEVES M.D. Performed By: #### H S TROP, CMP, CBC, MG #### [facility] [address] [place], [place] [id number] [facility] CT angio chest PE protocolon 05-12-2021 CT angio chest PE protocol [facility] [place] [address] [place] [address] CT Scan Report Signed Patient: Elsa Catalan MR#: [id number] 0 : 1960 Acct:[id number] Age/Sex: 60 / F ADM Date: 05/11/21 Loc: Room: [address] [place] [address] Type: ADM INOo Attending Dr: Obdulia Garcia [...] Matt Beckham M.D.05/12/2021 1:40 PM Dictation Location: [place] [address] Transcribed By: [facility] 05/12/21 1340 Dictated By: Matt Beckham DO 05/12/21 1333 Signed By: 05/12/21 1340 Normal [facility] Complete Blood Count Auto Di ffon 05-12-2021 Basophils (Bld) [#/Vol] 0.0 10*3/uL Normal 0.0-0.2 [facility] Comment on above: Result Comment: PERF ORMED BY: [place] [address] PATHOLOGIST MOBILE EQUIPMENT OPERATOR RAMYA NEVES M.D. Performed By: #### B MP, MG, CBC #### [facility] [address] [place] [address] Basophils/100 WBC (Bld) 0.4 % Normal . [facility] Comment on above: Performed By: #### B MP, MG, CBC #### [address] Eosinophils (Bld) [#/Vol] 0.0 10*3/uL Normal 0.0-0.45 [facility] Comment on above: Performed By: #### B MP, MG, CBC #### [address] Eosinophils/100 WBC (Bld) 0.0 % Normal . [facility] Comment on above: Performed By: #### B MP, MG, CBC #### [address] Erythrocyte distribution width (RBC) [Ratio] 16.3 % High 11.9-15.3 [facility] Comment on above: Performed By: #### B MP, MG, CBC #### [address] Hematocrit (Bld) [Volume fraction] 36.4 % Normal 34.0-46.4 [facility] Comment on above: Performed By: #### B MP, MG, CBC #### [address] Hemoglobin (Bld) [Mass/Vol] 12.1 g/dL Normal 11.8-15.4 [facility] Comment on above: Performed By: #### B MP, MG, CBC #### [address] Lymphocytes (Bld) [#/Vol] 2.0 10*3/uL Normal 1.00-4.8 [facility] Comment on above: Performed By: #### B MP, MG, CBC #### [address] Lymphocytes/100 WBC (Bld) 16.8 % Normal . [facility] Comment on above: Performed By: #### B MP, MG, CBC #### [address] MCH (RBC) [Entitic mass] 30.1 pg Normal 24.7-34.3 [facility] Comment on above: Performed By: #### B MP, MG, CBC #### [facility] [address] MCV (RBC) [Entitic vol] 90.7 fL Normal 80-100 [facility] Comment on above: Performed By: #### B MP, MG, CBC #### [facility] [address] Mean Corpuscular HGB Conc 33.2 g/dL Normal 32.0-35.0 [facility] Comment on above: Performed By: #### B MP, MG, CBC #### [facility] [address] Monocytes (Bld) [#/Vol] 0.8 10*3/uL Normal 0.0-0.8 [facility] Comment on above: Performed By: #### B MP, MG, CBC #### [facility] [address] Monocytes/100 WBC (Bld) 6.8 % Normal . [facility] Comment on above: Performed By: #### B MP, MG, CBC #### [facility] [address] Neutrophils (Bld) [#/Vol] 8.9 10*3/uL High 1.8-7.7 [facility] Comment on above: Performed By: #### B MP, MG, CBC #### [facility] [address] Neutrophils/100 WBC (Bld) 76.0 % Normal . [facility] Comment on above: Performed By: #### B MP, MG, CBC #### [facility] [address] [place] [address] [place] Nucleated RBC/100 WBC (Bld) [Ratio] 0.0 % Normal 0-0.5 [facility] Comment on above: Performed By: #### B MP, MG, CBC #### [facility] [address] Platelet mean volume (Bld) [Entitic vol] 7.5 fL Normal 6.3-10.7 [facility] Comment on above: Performed By: #### B MP, MG, CBC #### [facility] [address] [place] [address] [place] Platelets (Bld) [#/Vol] 372 10*3/uL Normal 150-450 [facility] Comment on above: Performed By: #### B MP, MG, CBC #### [facility] [address] [place] [address] RBC (Bld) [#/Vol] 4.01 10*6/uL Normal 3.60-5.00 [facility] Comment on above: Performed By: #### B MP, MG, CBC #### [address] WBC (Bld) [#/Vol] 11.7 10*3/uL High 4.5-11.0 [facility] Comment on above: Performed By: #### B MP, MG, CBC #### [address] Basophils (Bld) [#/Vol] 0.1 10*3/uL Normal 0.0-0.2 [facility] Comment on above: Result Comment: PERF ORMED BY: [place] [address] PATHOLOGIST MOBILE EQUIPMENT OPERATOR RAMYA NEVES M.D. Performed By: #### H S TROP, CMP, CBC, MG #### [place] [address] [place] Basophils/100 WBC (Bld) 0.8 % Normal . [facility] Comment on above: Performed By: #### H S TROP, CMP, CBC, MG #### [facility] [address] [place] [address] [place] Eosinophils (Bld) [#/Vol] 0.0 10*3/uL Normal 0.0-0.45 [facility] Comment on above: Performed By: #### H S TROP, CMP, CBC, MG #### [place] [address] [place] Eosinophils/100 WBC (Bld) 0.0 % Normal . [facility] Comment on above: Performed By: #### H S TROP, CMP, CBC, MG #### [address] Erythrocyte distribution width (RBC) [Ratio] 16.7 % High 11.9-15.3 [facility] Comment on above: Performed By: #### H S TROP, CMP, CBC, MG #### [address] Hematocrit (Bld) [Volume fraction] 36.7 % Normal 34.0-46.4 [facility] Comment on above: Performed By: #### H S TROP, CMP, CBC, MG #### [address] Hemoglobin (Bld) [Mass/Vol] 12.1 g/dL Normal 11.8-15.4 [facility] Comment on above: Performed By: #### H S TROP, CMP, CBC, MG #### [address] Lymphocytes (Bld) [#/Vol] 1.0 10*3/uL Normal 1.00-4.8 [facility] Comment on above: Performed By: #### H S TROP, CMP, CBC, MG #### [address] Lymphocytes/100 WBC (Bld) 9.3 % Normal . [facility] Comment on above: Performed By: #### H S TROP, CMP, CBC, MG #### [address] MCH (RBC) [Entitic mass] 30.5 pg Normal 24.7-34.3 [facility] Comment on above: Performed By: #### H S TROP, CMP, CBC, MG #### [address] MCV (RBC) [Entitic vol] 92.2 fL Normal 80-100 [facility] Comment on above: Performed By: #### H S TROP, CMP, CBC, MG #### [address] [place] [address] [place] Mean Corpuscular HGB Conc 33.1 g/dL Normal 32.0-35.0 [facility] Comment on above: Performed By: #### H S TROP, CMP, CBC, MG #### [facility] [address] Monocytes (Bld) [#/Vol] 0.1 10*3/uL Normal 0.0-0.8 [facility] Comment on above: Performed By: #### H S TROP, CMP, CBC, MG #### [address] Monocytes/100 WBC (Bld) 1.1 % Normal . [facility] Comment on above: Performed By: #### H S TROP, CMP, CBC, MG #### [address] Neutrophils (Bld) [#/Vol] 9.6 10*3/uL High 1.8-7.7 [facility] Comment on above: Performed By: #### H S TROP, CMP, CBC, MG #### [facility] [address] [place] [address] [place] Neutrophils/100 WBC (Bld) 88.8 % Normal . [facility] Comment on above: Performed By: #### H S TROP, CMP, CBC, MG #### [facility] [address] [place] [address] [place] Nucleated RBC/100 WBC (Bld) [Ratio] 0.0 % Normal 0-0.5 [facility] Comment on above: Performed By: #### H S TROP, CMP, CBC, MG #### [facility] [address] [place] [address] [place] Platelet mean volume (Bld) [Entitic vol] 7.7 fL Normal 6.3-10.7 [facility] Comment on above: Performed By: #### H S TROP, CMP, CBC, MG #### [facility] [address] [place] [address] [place] Platelets (Bld) [#/Vol] 358 10*3/uL Normal 150-450 [facility] Comment on above: Performed By: #### H S TROP, CMP, CBC, MG #### [facility] [address] [place] [address] RBC (Bld) [#/Vol] 3.98 10*6/uL Normal 3.60-5.00 [facility] Comment on above: Performed By: #### H S TROP, CMP, CBC, MG #### [address] WBC (Bld) [#/Vol] 10.8 10*3/uL Normal 4.5-11.0 [facility] Comment on above: Performed By: #### H S TROP, CMP, CBC, MG #### [address] Comprehensive Metabolic Pane le 05-12-2021 Albumin [Mass/Vol] 3.2 g/dL Normal 3.2-5.5 [facility] Comment on above: Performed By: #### H S TROP, CMP, CBC, MG #### [facility] [address] [place] [address] Albumin/Globulin [Mass ratio] 0.7 {ratio} Normal [facility] Comment on above: Performed By: #### H S TROP, CMP, CBC, MG #### [facility] [address] [place] [address] ALP [Catalytic activity/Vol] 69 U/L Normal 32-92 [facility] Comment on above: Performed By: #### H S TROP, CMP, CBC, MG #### [facility] [address] [place] [address] ALT [Catalytic activity/Vol] 21 U/L Normal 10-60 [facility] Comment on above: Performed By: #### H S TROP, CMP, CBC, MG #### [facility] [address] [place] [address] AST [Catalytic activity/Vol] 20 U/L Normal 10-42 [facility] Comment on above: Performed By: #### H S TROP, CMP, CBC, MG #### [facility] [address] Bilirubin [Mass/Vol] 0.6 mg/dL Normal 0.3-1.2 [facility] Comment on above: Performed By: #### H S TROP, CMP, CBC, MG #### [facility] [address] Calcium [Mass/Vol] 8.1 mg/dL Low 8.2-10.2 [facility] Comment on above: Performed By: #### H S TROP, CMP, CBC, MG #### [facility] [address] [place] [address] Chloride [Moles/Vol] 100 mmol/L Normal 95-114 [facility] Comment on above: Performed By: #### H S TROP, CMP, CBC, MG #### [facility] [address] [place] [address] CO2 [Moles/Vol] 17.0 mmol/L Low 22.0-30.0 [facility] Comment on above: Performed By: #### H S TROP, CMP, CBC, MG #### [address] Creatinine [Mass/Vol] 0.73 mg/dL Normal 0.44-1.03 [facility] Comment on above: Performed By: #### H S TROP, CMP, CBC, MG #### [facility] [address] [place] [address] [place] Creatinine Clr Calc Pharmacy 75.76 [facility] Comment on above: Performed By: #### H S TROP, CMP, CBC, MG #### [facility] [address] [place] [address] Estimated GFR ( [place] > 60 [facility] Comment on above: Result Comment: GFR estimated reference range: According to KDOQI guidelines, <60 ml/min/1.73m2 is sufficient to diagnose a patient with chronic kidney disease. Performed By: #### H S TROP, CMP, CBC, MG #### [facility] [address] [place] [address] Estimated GFR (Non- Am > 60 Normal [facility] Comment on above: Performed By: #### H S TROP, CMP, CBC, MG #### [facility] [address] [place] [address] [place] Globulin (S) [Mass/Vol] 4.5 g/dL Normal [facility] Comment on above: Performed By: #### H S TROP, CMP, CBC, MG #### [facility] [address] Glucose [Mass/Vol] 407 mg/dL High 70-100 [facility] Comment on above: Result Comment: [facility] Glucose Reference Range is dependent on time and content of last meal. Glucose of more than 200 mg/dL in a nonstressed, ambulatory subject supports the diagnosis of Diabetes Mellitus. ADA recommended reference range Performed By: #### H S TROP, CMP, CBC, MG #### [address] Potassium [Moles/Vol] 3.7 mmol/L Normal 3.5-5.1 [facility] Comment on above: Performed By: #### H S TROP, CMP, CBC, MG #### [place] [address] [place] Protein [Mass/Vol] 7.7 g/dL Normal 6.1-7.9 [facility] Comment on above: Performed By: #### H S TROP, CMP, CBC, MG #### [place] [address] [place] Sodium [Moles/Vol] 132 mmol/L Low 136-146 [facility] Comment on above: Performed By: #### H S TROP, CMP, CBC, MG #### [facility] [address] [place] [address] [place] Urea nitrogen [Mass/Vol] 17 mg/dL Normal 9-23 [facility] Comment on above: Performed By: #### H S TROP, CMP, CBC, MG #### [facility] [address] [place] [address] ECG 12 lead ECGon 05-12-2021 ECG 12 lead ECG [facility] [place] [id number] Electrocardiograph Report Signed Patient: Elsa Catalan MR#: [id number] 0 : 1960 Acct:[id number] Age/Sex: 60 / F ADM Date: 05/11/21 Loc: Room: [address] [place] [address] Type: ADM INOo Attending Dr: Obdulia Garcia [...] By: MUS Dictated By: Noemy Zamora MD 05/12/2146 Signed By: 05/12/21 190 Normal [facility] ECG 12 [place] [address] Electrocardiograph Report Signed Patient: Elsa Catalan MR#: [id number] 0 : 1960 Acct:[id number] Age/Sex: 60 / F ADM Date: 05/11/21 Loc: Room: [address] [place] [address] Type: ADM INOo Attending Dr: Obdulia Garcia [...] DO 05/11/21 2247 Signed By: 05/12/21 1051 [facility] echo transthoracicon [facility] echo transthoracic [facility] [place] [address] [place] [address] Echocardiogram Signed Patient: Elsa Catalan MR#: [id number] 0 : 1960 Acct:[id number] Age/Sex: 60 / F ADM Date: 05/11/21 Loc: Room: [address] [place] [address] Type: ADM INOo Attending Dr: Obdulia Garcia MD Ordering Provider: Geri Angel MD Date of Service: 05/11/21 [facility] echo transthoracic: CP Copies to: MD Lan [...] cm/sec 311.1 cm/sec2 Ao max P.3 mmHg [place](V,D): 1.7 cm2 __ LV V1 max PG: TV max PG: TR max [place]: 3.5 mmHg 18.0 mmHg 214.5 cm/sec TR max P.4 mmHg RAP systole: 3.0 mmHg Transcribed By: [place] 05/12/21 1203 Dictated By: Lan Canales DO 05/12/21 1020 Signed By: 05/12/21 1203 [facility] Glucose Poct Glucometerson 0 05-12-2021 Glucose [Mass/Vol] 188 mg/dL [facility] Comment on above: Result Comment: [facility] Glucose Reference Range is dependent on time and content of last meal. Glucose of more than 200 mg/dL in a nonstressed, ambulatory subject supports the diagnosis of Diabetes Mellitus. PERFORMED BY: [facility] [address] [place] [address] PATHOLOGIST MOBILE EQUIPMENT OPERATOR RAMYA NEVES M.D. Performed By: #### H S TROP, CMP, CBC, MG #### [facility] [address] Commemt1 Glu2: Cleaned Meter [facility] Comment on above: Result Comment: PERF ORMED BY: [place] [address] PATHOLOGIST MOBILE EQUIPMENT OPERATOR RAMYA NEVES M.D. Performed By: #### H S TROP, CMP, CBC, MG #### [facility] [address] [place] [address] Glucose [Mass/Vol] 138 mg/dL [facility] Comment on above: Result Comment: [place] [facility] Glucose Reference Range is dependent on time and content of last meal. Glucose of more than 200 mg/dL in a nonstressed, ambulatory subject supports the diagnosis of Diabetes Mellitus. Performed By: #### H S TROP, CMP, CBC, MG #### [address] Commemt1 [facility] Comment on above: Result Comment: Glu2 : Will Repeat Test Performed By: #### H S TROP, CMP, CBC, MG #### [facility] [address] [place] [address] WILL NOT[address]/RN [facility] Comment on above: Performed By: #### H S TROP, CMP, CBC, MG #### [facility] [address] [place] [address] Commemt3 Cleaned Meter [facility] Comment on above: Result Comment: PERF ORMED BY: [place] [address] PATHOLOGIST MOBILE EQUIPMENT OPERATOR RAMYA NEVES M.D. Performed By: #### H S TROP, CMP, CBC, MG #### [address] Glucose [Mass/Vol] 400 mg/dL Off scale [facility] Comment on above: Result Comment: [place] [facility] Glucose Reference Range is dependent on time and content of last meal. Glucose of more than 200 mg/dL in a nonstressed, ambulatory subject supports the diagnosis of Diabetes Mellitus. Performed By: #### H S TROP, CMP, CBC, MG #### [facility] [address] [place] [address] [place] Commemt1 Glu2: Cleaned Meter Normal [facility] Comment on above: Performed By: #### H S TROP, CMP, CBC, MG #### [facility] [address] [place] [address] Commemt2 Will Repeat Test Normal [facility] Comment on above: Performed By: #### H S TROP, CMP, CBC, MG #### [facility] [address] [place] [address]/RN Normal [facility] Comment on above: Result Comment: PERF ORMED BY: [place] [address] PATHOLOGIST MOBILE EQUIPMENT OPERATOR RAMYA NEVES M.D. Performed By: #### H S TROP, CMP, CBC, MG #### [facility] [address] [place] [address] Glucose [Mass/Vol] 415 mg/dL Off scale high [facility] Comment on above: Result Comment: [facility] Glucose Reference Range is dependent on time and content of last meal. Glucose of more than 200 mg/dL in a nonstressed, ambulatory subject supports the diagnosis of Diabetes Mellitus. Performed By: #### H S TROP, CMP, CBC, MG #### [facility] [address] [place] [address] Magnesiumon 05-12-2021 Magnesium [Mass/Vol] 1.7 mg/dL Normal 1.6-2.6 [facility] Comment on above: Result Comment: PERF ORMED BY: [facility] [address] [place] [address] PATHOLOGIST MOBILE EQUIPMENT OPERATOR RAMYA NEVES M.D. Performed By: #### B MP, MG, CBC #### [facility] [address] [place] [address] Magnesium [Mass/Vol] 1.7 mg/dL Normal 1.6-2.6 [facility] Comment on above: Result Comment: PERF ORMED BY: [place] [address] PATHOLOGIST MOBILE EQUIPMENT OPERATOR RAMYA NEVES M.D. Performed By: #### H S TROP, CMP, CBC, MG #### [facility] [address] [place] [address] [place] Troponin I High Sensitivityo n 05-12-2021 Troponin I High Sensitivity 247 pg/mL Off scale high 0-15 [facility] Comment on above: Result Comment: PERF ORMED BY: [place] [address] PATHOLOGIST MOBILE EQUIPMENT OPERATOR RAMYA NEVES M.D. Performed By: #### H S TROP #### [address] Troponin I High Sensitivity 220 pg/mL Off scale high 0-15 [facility] Comment on above: Result Comment: PERF ORMED BY: [place] [address] PATHOLOGIST MOBILE EQUIPMENT OPERATOR RAMYA NEVES M.D. Performed By: #### H S TROP #### [address] Troponin I High Sensitivity 237 pg/mL Off scale high 0-15 [facility] Comment on above: Result Comment: Resu lts called at 0131 on 05/12/21 PERFORMED BY: [place] [address] PATHOLOGIST MOBILE EQUIPMENT OPERATOR RAMYA NEVES M.D. Performed By: #### H S TROP, CMP, CBC, MG #### [address] XR chest 1V portableon 05-12 XR chest 1V portable [facility] [place] [address] [place] [address] XRay Report Signed Patient: Elsa Catalan MR#: [id number] 0 : 1960 Acct:[id number] Age/Sex: 60 / F ADM Date: 05/11/21 Loc: Room: [address] [place] [address] Type: ADM IN Attending Dr: Obdulia Garcia [...] Adrienne Fermin M.D.05/12/2021 9:29 AM Dictation Location: [place] [address] Transcribed By: [facility] 05/12/21928 Dictated By: Adrienne Fermin MD 05/12/21927 Signed By: 05/12/21928 Normal [facility] XR lumbar spine 6V w bending on 11-27-2020 XR lumbar spine 6V w bending [facility] [place] [address] [place] [address] XRay Report Signed Patient: Elsa Catalan MR#: [id number] 0 : 1960 Acct:[id number] Age/Sex: 60 / F ADM Date: 11/27/20 Loc: [place] Room: Type: [facility] Attending Dr: Sam Rothman MD Ordering Provider: Sam Rothman MD Date of Service: 11/27/20 XR/XR lumbar spine 6V w bending: Radiculopathy, lumbar region Copies to: Sam Rothman MD CLINICAL INFORMATION: Low back pain radiating down to the right leg for years. No known injury. LUMBAR SPINE WITH FLEXION AND EXTENSION AND LATERAL BENDING: COMPARISON: 10/19/2020 from [facility] FINDINGS: Standing AP, lateral, flexion, extension, [...] Felipe Watson M.D.11/27/2020 11:48 AM Dictation Location: [place] [address] Transcribed By: [facility] 11/27/20 1148 Dictated By: Felipe Watson MD 11/27/20 1139 Signed By: 11/27/20 1148 [facility] POC Glucoseon 04-08-2020 Glucose [Mass/Vol] 139 mg/dL High 65 - 99 mg/dL [facility] Interpretation and review of laboratory results Abnormal [facility] Glucose [Mass/Vol] 77 mg/dL 65 - 99 mg/dL [facility] Interpretation and review of laboratory results Normal [facility] Glucose [Mass/Vol] 83 mg/dL 65 - 99 mg/dL [facility] Interpretation and review of laboratory results Normal [facility] SCAN OTHER ORDERSon 04-08-20 20 Ordered by an unspecified provider. [facility] Basic Metabolic Panelon 10-02 Anion gap [Moles/Vol] 19 mmol/L 10 - 2 0 mmol/L [facility] Calcium [Mass/Vol] 8.1 mg/dL Low 8.4 - 10. 2 mg/dL [facility] Chloride [Moles/Vol] 96 mmol/L Low 98 - 10 8 mmol/L [facility] Creatinine [Mass/Vol] 0.71 mg/dL 0.4 - 1.1 mg/dL [facility] GFR/1.73 sq M predicted among non-blacks MDRD (S/P/Bld) [Vol rate/Area] The eGFR should be used for monitoring renal function only and not for medication dosing. [facility] GFR/1.73 sq M.predicted CKD-EPI (S/P/Bld) [Vol rate/Area] 93 >=60 mL/min/1.73 m2 [facility] Glucose [Mass/Vol] 206 mg/dL High 65 - 99 mg/dL [facility] HCO3 [Moles/Vol] 23 mmol/L 21 - 32 mmol/L [facility] Interpretation and review of laboratory results Abnormal [facility] Potassium [Moles/Vol] 3.3 mmol/L Low 3.5 - 5.1 mmol/L [facility] Sodium [Moles/Vol] 135 mmol/L 135 - 145 mmol/L [facility] Urea nitrogen [Mass/Vol] 18 mg/dL 8 - 25 mg/dL [facility] Urea nitrogen/Creatinine [Mass ratio] 25.4 mg/mg High [facility] CBC WITH AUTO DIFFERENTIALon 10-14-2019 Basophils (Bld) [#/Vol] 0.04 10*3/uL [facility] Basophils/100 WBC (Bld) 0.5 % [facility] Eosinophils (Bld) [#/Vol] 0.00 10*3/uL [facility] [facility] Eosinophils/100 WBC (Bld) 0.0 % [facility] Erythrocyte distribution width (RBC) [Entitic vol] 14.0 % 11.6 - 14.8 % [facility] Hematocrit (Bld) [Volume fraction] 33.6 % Low 36 - 46 % [facility] Hemoglobin (Bld) [Mass/Vol] 11.1 g/dL Low 12 - 16 g/dL [facility] Immature granulocytes (Bld) [#/Vol] 0.01 10*3/uL [facility] Immature granulocytes/100 WBC (Bld) 0.10 % [facility] Comment on above: The IG parameter is the percentage of metamyelocytes, myelocytes, and promyelocytes. Interpretation and review of laboratory results Abnormal [facility] Lymphocytes (Bld) [#/Vol] 2.22 10*3/uL [facility] Lymphocytes/100 WBC (Bld) 28.2 % [facility] MCH (RBC) [Entitic mass] 29.3 pg 26 - 34 pg [facility] MCHC (RBC) [Mass/Vol] 33.0 g/dL 31 - 37 g/dL [facility] MCV (RBC) [Entitic vol] 88.7 fL 80 - 100 fL [facility] Monocytes (Bld) [#/Vol] 0.57 10*3/uL [facility] Monocytes/100 WBC (Bld) 7.2 % [facility] Neutrophils (Bld) [#/Vol] 5.04 10*3/uL [facility] Neutrophils/100 WBC (Bld) 64.0 % [facility] Nucleated RBC (Bld) [#/Vol] 0.00 10*3/uL [facility] Nucleated RBC/100 WBC (Bld) [Ratio] 0.0 % [facility] Platelet mean volume (Bld) [Entitic vol] 9.2 fL 9 - 15.5 fL [facility] Platelets (Bld) [#/Vol] 390 10*3/uL [facility] RBC (Bld) [#/Vol] 3.79 10*6/uL Low [facility] WBC (Bld) [#/Vol] 7.88 10*3/uL [facility] P[facility] Glucoseon 10-14-2019 Glucose [Mass/Vol] 116 mg/dL High 65 - 99 mg/dL [facility] Interpretation and review of laboratory results Abnormal [facility] Glucose [Mass/Vol] 142 mg/dL High 65 - 99 mg/dL [facility] Interpretation and review of laboratory results Abnormal [facility] POC Glucoseon 10-13-2019 Glucose [Mass/Vol] 232 mg/dL High 65 - 99 mg/dL [facility] Interpretation and review of laboratory results Abnormal [facility] Glucose [Mass/Vol] 317 mg/dL High 65 - 99 mg/dL [facility] Interpretation and review of laboratory results Abnormal [facility] Glucose [Mass/Vol] 289 mg/dL High 65 - 99 mg/dL [facility] Interpretation and review of laboratory results Abnormal [facility] Glucose [Mass/Vol] 96 mg/dL 65 - 99 mg/dL [facility] Interpretation and review of laboratory results Normal [facility] CBC WITH AUTO DIFFERENTIALon 10-12-2019 Basophils (Bld) [#/Vol] 0.09 10*3/uL [facility] Basophils/100 WBC (Bld) 1.1 % [facility] Eosinophils (Bld) [#/Vol] 0.36 10*3/uL [facility] Eosinophils/100 WBC (Bld) 4.4 % [facility] Erythrocyte distribution width (RBC) [Entitic vol] 13.9 % 11.6 - 14.8 % [facility] Hematocrit (Bld) [Volume fraction] 34.6 % Low 36 - 46 % [facility] Hemoglobin (Bld) [Mass/Vol] 11.7 g/dL Low 12 - 16 g/dL [facility] Immature granulocytes (Bld) [#/Vol] 0.01 10*3/uL [facility] Immature granulocytes/100 WBC (Bld) 0.10 % [facility] Comment on above: The IG parameter is the percentage of metamyelocytes, myelocytes, and promyelocytes. Interpretation and review of laboratory results Abnormal [facility] Lymphocytes (Bld) [#/Vol] 2.96 10*3/uL [facility] Lymphocytes/100 WBC (Bld) 36.6 % [facility] MCH (RBC) [Entitic mass] 29.8 pg 26 - 34 pg [facility] MCHC (RBC) [Mass/Vol] 33.8 g/dL 31 - 37 g/dL [facility] MCV (RBC) [Entitic vol] 88.3 fL 80 - 100 fL [facility] Monocytes (Bld) [#/Vol] 0.72 10*3/uL [facility] Monocytes/100 WBC (Bld) 8.9 % [facility] Neutrophils (Bld) [#/Vol] 3.95 10*3/uL [facility] Neutrophils/100 WBC (Bld) 48.9 % [facility] Nucleated RBC (Bld) [#/Vol] 0.00 10*3/uL [facility] Nucleated RBC/100 WBC (Bld) [Ratio] 0.0 % [facility] Platelet mean volume (Bld) [Entitic vol] 9.3 fL 9 - 15.5 fL [facility] Platelets (Bld) [#/Vol] 378 10*3/uL [facility] RBC (Bld) [#/Vol] 3.92 10*6/uL Low [facility] WBC (Bld) [#/Vol] 8.09 10*3/uL [facility] Comprehensive Metabolic Pane le 10-12-2019 Albumin [Mass/Vol] 3.8 g/dL 3.2 - 5.2 g/dL [facility] ALP [Catalytic activity/Vol] 90 U/L 40 - 150 U/L [facility] ALT [Catalytic activity/Vol] 13 U/L 0 - 40 U/L [facility] Anion gap [Moles/Vol] 20 mmol/L 10 - 2 0 mmol/L [facility] AST [Catalytic activity/Vol] 19 U/L 0 - 45 U/L [facility] Bilirubin [Mass/Vol] 0.2 mg/dL 0 - 1.3 mg/dL [facility] Calcium [Mass/Vol] 9.2 mg/dL 8.4 - 10. 2 mg/dL [facility] Chloride [Moles/Vol] 97 mmol/L Low 98 - 10 8 mmol/L [facility] Creatinine [Mass/Vol] 0.84 mg/dL 0.4 - 1.1 mg/dL [facility] GFR/1.73 sq M predicted among non-blacks MDRD (S/P/Bld) [Vol rate/Area] The eGFR should be used for monitoring renal function only and not for medication dosing. [facility] GFR/1.73 sq M.predicted CKD-EPI (S/P/Bld) [Vol rate/Area] 76 >=60 mL/min/1.73 m2 [facility] Glucose [Mass/Vol] 240 mg/dL High 65 - 99 mg/dL [facility] HCO3 [Moles/Vol] 26 mmol/L 21 - 32 mmol/L [facility] Interpretation and review of laboratory results Abnormal [facility] Potassium [Moles/Vol] 3.7 mmol/L 3.5 - 5.1 mmol/L [facility] Protein [Mass/Vol] 8.7 g/dL High 6 - 8 g/dL [facility] Sodium [Moles/Vol] 139 mmol/L 135 - 145 mmol/L [facility] Urea nitrogen [Mass/Vol] 14 mg/dL 8 - 25 mg/dL [facility] Urea nitrogen/Creatinine [Mass ratio] 16.7 mg/mg [facility] POC Glucoseon 10-12-2019 Glucose [Mass/Vol] 195 mg/dL High 65 - 99 mg/dL [facility] Interpretation and review of laboratory results Abnormal [facility] Glucose [Mass/Vol] 130 mg/dL High 65 - 99 mg/dL [facility] Interpretation and review of laboratory results Abnormal [facility] PT/INRon 10-12-2019 INR Coag (PPP) [Relative time] 1.0 {INR} [facility] Interpretation and review of laboratory results Normal [facility] PT Coag (PPP) [Time] 12.7 s [facility] During the induction phase of oral anticoagulation, the INR may not reflect the anticoagulation status of the patient. Therapeutic ranges for INR's are: Most clinical situations: INR 2.0-3.0 Mechanical Prosthetic Valve: INR 2.5-3.5 Critical: INR >5.0 [facility] DEBRIDEMENTon 10-08-2019 Rose Mendoza CNP 10/08/2019 2:14 PM Wound Care Debridement Timeout: Verbal Consent obtained?: Yes Written Consent obtained?: Yes Consent given by: Patient Immediately prior to procedure a time out was called to verify the correct patient, procedure, equipment, business support and site/side marked as required Timeout performed: [...] Response to Treatment: Procedure was tolerated well (..................... ...................... ...................... ......... ...............) [facility] Basic Metabolic Panelon 12-0 Anion gap [Moles/Vol] 17 mmol/L 10 - 2 0 mmol/L [facility] Calcium [Mass/Vol] 7.9 mg/dL Low 8.4 - 10. 2 mg/dL [facility] Chloride [Moles/Vol] 101 mmol/L 98 - 10 8 mmol/L [facility] Creatinine [Mass/Vol] 0.68 mg/dL 0.4 - 1.1 mg/dL [facility] GFR/1.73 sq M predicted among non-blacks MDRD (S/P/Bld) [Vol rate/Area] The eGFR should be used for monitoring renal function only and not for medication dosing. [facility] GFR/1.73 sq M.predicted CKD-EPI (S/P/Bld) [Vol rate/Area] 95 >=60 mL/min/1.73 m2 [facility] Glucose [Mass/Vol] 143 mg/dL High 65 - 99 mg/dL [facility] HCO3 [Moles/Vol] 23 mmol/L 21 - 32 mmol/L [facility] Interpretation and review of laboratory results Abnormal [facility] Potassium [Moles/Vol] 3.4 mmol/L Low 3.5 - 5.1 mmol/L [facility] Sodium [Moles/Vol] 138 mmol/L 135 - 145 mmol/L [facility] Urea nitrogen [Mass/Vol] 17 mg/dL 8 - 25 mg/dL [facility] Urea nitrogen/Creatinine [Mass ratio] 25.0 mg/mg High [facility] CBC WITH AUTO DIFFERENTIALon 09-05-2019 Basophils (Bld) [#/Vol] 0.07 10*3/uL [facility] Basophils/100 WBC (Bld) 0.7 % [facility] Eosinophils (Bld) [#/Vol] 0.06 10*3/uL [facility] Eosinophils/100 WBC (Bld) 0.6 % [facility] Erythrocyte distribution width (RBC) [Entitic vol] 14.0 % 11.6 - 14.8 % [facility] Hematocrit (Bld) [Volume fraction] 33.6 % Low 36 - 46 % [facility] Hemoglobin (Bld) [Mass/Vol] 11.0 g/dL Low 12 - 16 g/dL [facility] Immature granulocytes (Bld) [#/Vol] 0.02 10*3/uL [facility] Immature granulocytes/100 WBC (Bld) 0.20 % [facility] Comment on above: The IG parameter is the percentage of metamyelocytes, myelocytes, and promyelocytes. Interpretation and review of laboratory results Abnormal [facility] Lymphocytes (Bld) [#/Vol] 2.50 10*3/uL [facility] Lymphocytes/100 WBC (Bld) 25.6 % [facility] MCH (RBC) [Entitic mass] 29.2 pg 26 - 34 pg [facility] MCHC (RBC) [Mass/Vol] 32.7 g/dL 31 - 37 g/dL [facility] MCV (RBC) [Entitic vol] 89.1 fL 80 - 100 fL [facility] Monocytes (Bld) [#/Vol] 1.19 10*3/uL High [facility] Monocytes/100 WBC (Bld) 12.2 % [facility] Neutrophils (Bld) [#/Vol] 5.92 10*3/uL [facility] Neutrophils/100 WBC (Bld) 60.7 % [facility] Nucleated RBC (Bld) [#/Vol] 0.00 10*3/uL [facility] Nucleated RBC/100 WBC (Bld) [Ratio] 0.0 % [facility] Platelet mean volume (Bld) [Entitic vol] 9.1 fL 9 - 15.5 fL [facility] Platelets (Bld) [#/Vol] 311 10*3/uL [facility] RBC (Bld) [#/Vol] 3.77 10*6/uL Low [facility] WBC (Bld) [#/Vol] 9.76 10*3/uL [facility] POC Glucoseon 09-05-2019 Glucose [Mass/Vol] 115 mg/dL High 65 - 99 mg/dL [facility] Interpretation and review of laboratory results Abnormal [facility] Glucose [Mass/Vol] 92 mg/dL 65 - 99 mg/dL [facility] Interpretation and review of laboratory results Normal [facility] TSHon 09-05-2019 Interpretation and review of laboratory results Abnormal [facility] TSH Qn 8.81 m[IU]/L High [facility] URINALYSISon 09-05-2019 Bacteria Auto Ql (U) None Seen None Se en /hpf [facility] Bilirubin Ql (U) Negative Negative [facility] Clarity Refractometry automated (U) Hazy Abnormal Clear [facility] Color (U) Yellow Colorless, Yellow [facility] Epithelial cells.squamous Auto (Urine sed) [#/Area] 6 High [facility] Glucose Auto test strip (U) [Mass/Vol] >=500 Abnormal Negative mg/dL [facility] Hemoglobin Auto test strip Ql (U) Negative Negative [facility] Interpretation and review of laboratory results Abnormal [facility] Ketones (U) [Mass/Vol] Negative Negat andres mg/dL [facility] Leukocyte esterase Auto test strip Ql (U) Negative Negative [facility] Mucus Auto (Urine sed) [#/Area] Rare None Seen, Rare /lpf [facility] Nitrite Auto test strip Ql (U) Negative Negative [facility] pH (U) 5.0 [pH] [facility] Protein (U) [Mass/Vol] Negative Negat anrdes mg/dL [facility] RBC Auto (Urine sed) [#/Area] <1 [facility] Specific gravity (U) [Rel density] 1.023 [facility] Urobilinogen (U) [Mass/Vol] <2.0 <2.0 mg/dL [facility] WBC Auto (Urine sed) [#/Area] 2 [facility] Microscopic examination is performed on all urinalysis samples and only positive findings are reported. The test for blood on the chemical analytic portion of urinalysis may also be positive due to hemoglobinuria and myoglobinuria and if red blood cells are present they are quantified by microscopic examination. [facility] XR CHEST PA/APon 09-05-2019 XR [...] is seen. IMPRESSION: No acute cardiopulmonary abnormality. [employer] Workstation ID: [id number] Dictated by: VU NESS on MonSep 05, 2019 10:42:53 AM EST Transcribed by: IGNACIO RUVALCABA on MonSep 05, 2019 10:54:07 AM EST Finalized by: VU NESS on MonSep 05, 2019 11:55:53 AM EST Normal [facility] Comment on above: Order Comment: Injur y/Trauma [...] limits. No acute osseous abnormality is seen. [facility] No acute cardiopulmonary abnormality. [employer] Workstation ID: [id number] [facility] Interface, Rad In Fu ji [...] acute cardiopulmonary abnormality. [employer]w Workstation ID: [id number] [facility] POC Glucoseon 09-04-2019 Glucose [Mass/Vol] 126 mg/dL High 65 - 99 mg/dL [facility] Interpretation and review of laboratory results Abnormal [facility] Glucose [Mass/Vol] 112 mg/dL High 65 - 99 mg/dL [facility] Interpretation and review of laboratory results Abnormal [facility] Glucose [Mass/Vol] 93 mg/dL 65 - 99 mg/dL [facility] Interpretation and review of laboratory results Normal [facility] Glucose [Mass/Vol] 88 mg/dL 65 - 99 mg/dL [facility] Interpretation and review of laboratory results Normal [facility] SCAN OTHER ORDERSon 09-04-20 19 Ordered by an unspecified provider. [facility] XR ELBOW LEFT 3+ VIEWS [...] intact hardware related to left elbow arthroplasty. [employer]u Workstation ID: [id number] Dictated by: VU NESS on MonSep 04, 2019 3:35:06 PM EST Transcribed by: JONI DEELON on MonSep 04, 2019 3:35:46 PM EST Finalized by: VU NESS on MonSep 04, 2019 4:41:06 PM EST Normal [facility] Comment on above: Order Comment: Injur y/Trauma or Illness?:Illness/Other How long have you had these symptoms (acute/chronic)?:Unknown Reason for exam?:post op History of cancer?:no Surgeries, chemotherapy, or radiation?:left elbow Type of Exam?:Initial Additional signs and symptoms?:post op XR Elbow Left 3+ Views (Martín cottrell)on 09-04-2019 Erythrocyte distribution width (RBC) [Ratio] 1. Gross anatomic alignment and intact hardware related to left elbow arthroplasty. [email or web address] Workstation ID: [id number] [facility] Interface, Rad In ji Speech - 09/04/2019 4:43 PM EST EXAMINATION: XR [...] intact hardware related to left elbow arthroplasty. [email or web address] Workstation ID: [id number] [facility] EXAMINATION: XR ELBO W LEFT 3+ VIEWS [...] gas is shown surrounding the surgical site. [facility] XR FLUOROSCOPY TIMEon 2018 XR FLUOROSCOPY TIME This is an auto finalized result. Please refer to patient chart for further information. further information. further information. [facility] Comment on above: Order Comment: Injur y/Trauma or Illness?:Illness/Other How long have you had these symptoms (acute/chronic)?:Unknown Reason for exam?:OR Type of Exam?:Ongoing Additional signs and symptoms?:unknown Fluoro time in minutes:.59 Fluoro dose in mGy?:.18 XR Fluoroscopy Timeon 2018 This is an auto finalized result. Please refer to patient chart for further information. [facility] XR OR ELBOW LEFT 2 [...] MonSep 04, 2019 2:22:01 PM EST Normal [facility] Comment on above: Order Comment: Injur y/Trauma [...] resection of the radial head. Normal alignment. [facility] Interface, Rad In Fu ji [...] formal operative report. DPR/raw Workstation ID: [id number] [facility] Status post left elb ow arthroplasty procedure. Please refer to the formal operative report. [employer] Workstation ID: [id number] [facility] Basic Metabolic Panelon 11-2 Anion gap [Moles/Vol] 22 mmol/L High 10 - 2 0 mmol/L [facility] Calcium [Mass/Vol] 9.7 mg/dL 8.4 - 10. 2 mg/dL [facility] Chloride [Moles/Vol] 96 mmol/L Low 98 - 10 8 mmol/L [facility] Creatinine [Mass/Vol] 0.63 mg/dL 0.4 - 1.1 mg/dL [facility] GFR/1.73 sq M predicted among non-blacks MDRD (S/P/Bld) [Vol rate/Area] The eGFR should be used for monitoring renal function only and not for medication dosing. [facility] GFR/1.73 sq M.predicted CKD-EPI (S/P/Bld) [Vol rate/Area] 98 >=60 mL/min/1.73 m2 [facility] Glucose [Mass/Vol] 221 mg/dL High 65 - 99 mg/dL [facility] HCO3 [Moles/Vol] 24 mmol/L 21 - 32 mmol/L [facility] Interpretation and review of laboratory results Abnormal [facility] Potassium [Moles/Vol] 4.0 mmol/L 3.5 - 5.1 mmol/L [facility] Sodium [Moles/Vol] 138 mmol/L 135 - 145 mmol/L [facility] Urea nitrogen [Mass/Vol] 16 mg/dL 8 - 25 mg/dL [facility] Urea nitrogen/Creatinine [Mass ratio] 25.4 mg/mg High [facility] CBC WITH AUTO DIFFERENTIALon 08-28-2019 Basophils (Bld) [#/Vol] 0.07 10*3/uL [facility] Basophils/100 WBC (Bld) 0.8 % [facility] Eosinophils (Bld) [#/Vol] 0.32 10*3/uL [facility] Eosinophils/100 WBC (Bld) 3.9 % [facility] Erythrocyte distribution width (RBC) [Entitic vol] 14.3 % 11.6 - 14.8 % [facility] Hematocrit (Bld) [Volume fraction] 40.2 % 36 - 46 % [facility] Hemoglobin (Bld) [Mass/Vol] 13.5 g/dL 12 - 16 g/dL [facility] Immature granulocytes (Bld) [#/Vol] 0.03 10*3/uL [facility] Immature granulocytes/100 WBC (Bld) 0.40 % [facility] Comment on above: The IG parameter is the percentage of metamyelocytes, myelocytes, and promyelocytes. Lymphocytes (Bld) [#/Vol] 2.90 10*3/uL [facility] Lymphocytes/100 WBC (Bld) 35.2 % [facility] MCH (RBC) [Entitic mass] 29.8 pg 26 - 34 pg [facility] MCHC (RBC) [Mass/Vol] 34.0 g/dL 31 - 37 g/dL [facility] MCV (RBC) [Entitic vol] 87.6 fL 80 - 100 fL [facility] Monocytes (Bld) [#/Vol] 0.55 10*3/uL [facility] Monocytes/100 WBC (Bld) 6.7 % [facility] Neutrophils (Bld) [#/Vol] 4.38 10*3/uL [facility] Neutrophils/100 WBC (Bld) 53.0 % [facility] Nucleated RBC (Bld) [#/Vol] 0.00 10*3/uL [facility] Nucleated RBC/100 WBC (Bld) [Ratio] 0.0 % [facility] Platelet mean volume (Bld) [Entitic vol] 9.6 fL 9 - 15.5 fL [facility] Platelets (Bld) [#/Vol] 391 10*3/uL [facility] RBC (Bld) [#/Vol] 4.60 10*6/uL [facility] WBC (Bld) [#/Vol] 8.25 10*3/uL [facility] Creatinine, Serumon 08-28-20 19 Creatinine [Mass/Vol] 0.63 mg/dL 0.4 - 1.1 mg/dL [facility] GFR/1.73 sq M predicted among non-blacks MDRD (S/P/Bld) [Vol rate/Area] The eGFR should be used for monitoring renal function only and not for medication dosing. [facility] GFR/1.73 sq M.predicted CKD-EPI (S/P/Bld) [Vol rate/Area] 98 >=60 mL/min/1.73 m2 [facility] Interpretation and review of laboratory results Normal [facility] ECG 12-LEADon 08-28-2019 Atrial Rate 90 BPM [facility] P [place] 80 degrees [facility] P-R Interval 156 ms [facility] Q-T Interval 362 ms [facility] QRS Duration 64 ms [facility] QTC Calculation (Bezet) 442 ms [facility] R [place] 64 degrees [facility] T [place] 57 degrees [facility] Ventricular Rate 90 BPM [facility] th Normal sinus rhythm Low voltage QRS Poor R Wave Progression Septal infarct , age undetermined Abnormal ECG Confirmed by Leatha Gomez M.D. ([id number]) on 08/28/2019 1:35:26 PM [facility] Glucoseon 08-28-2019 Glucose [Mass/Vol] 221 mg/dL High 65 - 99 mg/dL [facility] Interpretation and review of laboratory results Abnormal [facility] Hemoglobin and Hematocriton 08-28-2019 Hematocrit (Bld) [Volume fraction] 40.2 % 36 - 46 % [facility] Hemoglobin (Bld) [Mass/Vol] 13.5 g/dL 12 - 16 g/dL [facility] Interpretation and review of laboratory results Normal [facility] DEBRIDEMENTon 04-23-2019 Rose Mendoza CNP 04/24/2019 8:06 AM Wound Care Debridement Timeout: Verbal Consent obtained?: Yes Written Consent obtained?: Yes Consent given by: Patient Immediately prior to procedure a time out was called to verify the correct patient, procedure, equipment, business support and site/side marked as required Timeout performed: [...] Response to Treatment: Procedure was tolerated well (..................... ...................... ...................... ......... ...............) [facility] Basic Metabolic Panelon 05-3 Anion gap molar conc 15 mmol/L 10 - 20 mmol/L [facility] Calcium mass conc 7.6 mg/dL Low 8.4 - 10.2 mg/dL [facility] Chloride molar conc 104 mmol/L 98 - 108 mmol/L [facility] Creatinine mass conc 0.55 mg/dL 0.4 - 1 .1 mg/dL [facility] GFR/1.73 sq M predicted among non-blacks MDRD vol rate/area (S/P/Bld) The eGFR should be used for monitoring renal function only and not for medication dosing. [facility] GFR/1.73 sq M.predicted CKD-EPI vol rate/area (S/P/Bld) 103 >=60 mL/min/1.73 m2 [facility] Glucose mass conc 104 mg/dL High 65 - 99 mg/dL [facility] HCO3 molar conc 22 mmol/L 21 - 32 mmol/L [facility] Interpretation and review of laboratory results Abnormal [facility] Potassium molar conc 3.3 mmol/L Low 3.5 - 5 .1 mmol/L [facility] Sodium molar conc 138 mmol/L 135 - 145 mmol/L [facility] Urea nitrogen mass conc 12 mg/dL 8 - 25 mg/dL [facility] Urea nitrogen/Creatinine mass ratio 21.8 mg/mg High [facility] CBC WITH AUTO DIFFERENTIALon 02-28-2019 Basophils #/vol (Bld) 0.05 10*3/uL [facility] Basophils/100 WBC (Bld) 0.5 % [facility] Eosinophils #/vol (Bld) 0.01 10*3/uL [facility] Eosinophils/100 WBC (Bld) 0.1 % [facility] Erythrocyte distribution width Entitic volume (RBC) 13.7 % 11.6 - 14.8 % [facility] Hematocrit Volume Fraction (Bld) 30.6 % Low 36 - 46 % [facility] Hemoglobin mass conc (Bld) 9.8 g/dL Low 12 - 16 g/dL [facility] Immature granulocytes #/vol (Bld) 0.07 10*3/uL [facility] Immature granulocytes/100 WBC (Bld) 0.60 % [facility] Comment on above: The IG parameter is the percentage of metamyelocytes, myelocytes, and promyelocytes. Interpretation and review of laboratory results Abnormal [facility] Lymphocytes #/vol (Bld) 2.11 10*3/uL [facility] Lymphocytes/100 WBC (Bld) 19.0 % [facility] MCH Entitic mass (RBC) 28.2 pg 26 - 34 pg [facility] MCHC mass conc (RBC) 32.0 g/dL 31 - 37 g/dL [facility] MCV Entitic volume (RBC) 88.2 fL 80 - 100 fL [facility] Monocytes #/vol (Bld) 0.94 10*3/uL [facility] Monocytes/100 WBC (Bld) 8.5 % [facility] Neutrophils #/vol (Bld) 7.91 10*3/uL High [facility] Neutrophils/100 WBC (Bld) 71.3 % [facility] Nucleated RBC #/vol (Bld) 0.00 10*3/uL [facility] Nucleated RBC/100 WBC Ratio (Bld) 0.0 % [facility] Platelet mean volume Entitic volume (Bld) 9.2 fL 9 - 15.5 fL [facility] Platelets #/vol (Bld) 327 10*3/uL [facility] RBC #/vol (Bld) 3.47 10*6/uL [facility] WBC #/vol (Bld) 11.09 10*3/uL High [facility] alth POC Glucoseon 02-28-2019 Glucose mass conc 171 mg/dL High 65 - 99 mg/dL [facility] Interpretation and review of laboratory results Abnormal [facility] Glucose mass conc 76 mg/dL 65 - 99 mg/dL [facility] Interpretation and review of laboratory results Normal [facility] Glucose mass conc 171 mg/dL High 65 - 99 mg/dL [facility] Interpretation and review of laboratory results Abnormal [facility] CBC WITH AUTO DIFFERENTIALon 02-27-2019 Basophils #/vol (Bld) 0.05 10*3/uL [facility] Basophils/100 WBC (Bld) 0.5 % [facility] Eosinophils #/vol (Bld) 0.13 10*3/uL [facility] Eosinophils/100 WBC (Bld) 1.2 % [facility] Erythrocyte distribution width Entitic volume (RBC) 13.8 % 11.6 - 14.8 % [facility] Hematocrit Volume Fraction (Bld) 39.1 % 36 - 46 % [facility] Hemoglobin mass conc (Bld) 12.7 g/dL 12 - 16 g/dL [facility] Immature granulocytes #/vol (Bld) 0.06 10*3/uL [facility] Immature granulocytes/100 WBC (Bld) 0.60 % [facility] Comment on above: The IG parameter is the percentage of metamyelocytes, myelocytes, and promyelocytes. Interpretation and review of laboratory results Abnormal [facility] Lymphocytes #/vol (Bld) 1.32 10*3/uL [facility] Lymphocytes/100 WBC (Bld) 12.2 % [facility] MCH Entitic mass (RBC) 28.6 pg 26 - 34 pg [facility] MCHC mass conc (RBC) 32.5 g/dL 31 - 37 g/dL [facility] MCV Entitic volume (RBC) 88.1 fL 80 - 100 fL [facility] Monocytes #/vol (Bld) 0.50 10*3/uL [facility] Monocytes/100 WBC (Bld) 4.6 % [facility] Neutrophils #/vol (Bld) 8.79 10*3/uL High [facility] Neutrophils/100 WBC (Bld) 80.9 % [facility] Nucleated RBC #/vol (Bld) 0.00 10*3/uL [facility] Nucleated RBC/100 WBC Ratio (Bld) 0.0 % [facility] Platelet mean volume Entitic volume (Bld) 9.2 fL 9 - 15.5 fL [facility] Platelets #/vol (Bld) 369 10*3/uL [facility] RBC #/vol (Bld) 4.44 10*6/uL [facility] lth WBC #/vol (Bld) 10.85 10*3/uL [facility] P[facility] Glucoseon 02-27-2019 Glucose mass conc 313 mg/dL High 65 - 99 mg/dL [facility] Interpretation and review of laboratory results Abnormal [facility] Glucose mass conc 328 mg/dL High 65 - 99 mg/dL [facility] Interpretation and review of laboratory results Abnormal [facility] Glucose mass conc 201 mg/dL High 65 - 99 mg/dL [facility] Interpretation and review of laboratory results Abnormal [facility] Glucose mass conc 208 mg/dL High 65 - 99 mg/dL [facility] Interpretation and review of laboratory results Abnormal [facility] SCAN OTHER ORDERSon 02-28-20 19 Ordered by an unspecified provider. [facility] XR Elbow Right 3+ Views [...] surgery. COMPARISON: Right elbow radiographs 07/21/2016 from [facility]. FINDINGS: Three views of the right elbow [...] soft tissue air compatible with recent surgery. [facility] Interface, Rad In Fu ji [...] surgery. COMPARISON: Right elbow radiographs 07/21/2016 from [facility]. FINDINGS: Three views of the right elbow [...] A nondisplaced fracture is considered less likely. [employer] Workstation ID: [id number] [facility] Recent postoperative change for radial head resection and elbow joint prosthesis. Linear lucency adjacent to the ulnar stem in the region of the base of the coronoid process probably represents a mildly prominent cement bone interface. A nondisplaced fracture is considered less likely. [employer] Workstation ID: [id number] [facility] XR Fluoroscopy Timeon 2018 This is an auto finalized result. Please refer to patient chart for further information. [facility] Creatinine, Serumon 02-22-20 19 Creatinine mass conc 0.57 mg/dL 0.4 - 1 .1 mg/dL [facility] GFR/1.73 sq M predicted among non-blacks MDRD vol rate/area (S/P/Bld) The eGFR should be used for monitoring renal function only and not for medication dosing. [facility] GFR/1.73 sq M.predicted CKD-EPI vol rate/area (S/P/Bld) 102 >=60 mL/min/1.73 m2 [facility] Interpretation and review of laboratory results Normal [facility] ECG 12-LEADon 02-21-2019 Atrial Rate 78 BPM [facility] P [place] 67 degrees [facility] P-R Interval 142 ms [facility] Q-T Interval 402 ms [facility] QRS Duration 78 ms [facility] QTC Calculation (Bezet) 458 ms [facility] R [place] 47 degrees [facility] T [place] 52 degrees [facility] Ventricular Rate 78 BPM [facility] Normal sinus rhythm Normal ECG Confirmed by SVETA SILVA D.O. ([id number]) on 02/21/2019 1:00:32 PM [facility] Glucoseon 02-21-2019 Glucose mass conc 407 mg/dL Critically high 65 - 99 mg/dL [facility] Interpretation and review of laboratory results Abnormal [facility] XR Cervical Spine with Flexi on and Extension 6+ Viewson 02-21-2019 Very minimal degenerative disc disease at C4-5. No fracture. No instability in flexion or extension. [employer] Workstation ID: [id number] [facility] EXAMINATION: XR CERVICAL SPINE WITH FLEXION AND EXTENSION 6+ VIEWS HISTORY: ORDERING SYSTEM PROVIDED HISTORY: pat, TECHNOLOGIST PROVIDED HISTORY: Reason for exam: pat for intubation Illness/Other Cancer History: no Surgery, RadiationHistory: no Encounter Type: Initial Additional signs and symptoms: patient has rheumatoid arthritis ORDERING SYSTEM PROVIDED DIAGNOSIS CODES: Z01.818 Pre-op exam COMPARISON: CT from [facility] 05/03/2013. FINDINGS: Seven images including flexion-extension. Minimal anterior discogenic spurring is seen at C4-5. No spondylolisthesis or fracture or prevertebral soft tissue swelling. No instability in flexion with specific attention to the atlantoaxial joint. No instability in extension. Facet arthrosis most prominent on the left between C3 and C6. [facility] Interface, Rad In Fu ji [...] CODES: Z01.818 Pre-op exam COMPARISON: CT from [facility] 05/03/2013. FINDINGS: Seven images including flexion-extension. [...] flexion or extension. [employer] Workstation ID: [id number] [facility] PROGRESSon 04-18-2017 PROGRESS HNO ID: [id number]: Kelsey (Rt) DenoService: RadiologyAuthor Type: TechnicianType: Progress NotesFiled: 04/18/2017 2:29 PMNote Text: Radiology Service Progress NotePATIENT NAME: lEsa CatalanMRN: [id number] OF SERVICE: April 18, 2017TIME: 2:27 PMPATIENT [...] Hunt RT (R)April 18, 2017 2:27 PM [facility] XR CERVICAL AP/LAT/OBLon XR CERVICAL AP/LAT/OBL * * *Final Report * * *DATE OF EXAM: Apr 18 2017 [...] C6/C7. Mild neural foraminal narrowing at C3/C4 bilaterally.IMPRESSION : DEGENERATIVE DISC AND FACET DISEASE.Transcriptioni st: SUSANA Transcribe Date/Time: Apr 18 2017 3:37PDictated by : KEMI DE LEON MDThijessica examination was interpreted and the report reviewed and electronically signed by: KEMI DE LEON MD on Apr 18 2017 3:39PM EST Normal [facility] XR ELBOW M3V UNIon 7 XR ELBOW [...] fracture, no joint effusion. No soft tissue swelling.IMPRESSION:SE TOSHIA DEGENERATIVE CHANGES OF THE ELBOW JOINTS PROGRESSED SINCE THE PREVIOUS EXAMINATION.Transcript ionist: SUSANA Transcribe Date/Time: Apr 18 2017 3:33PDictated by : Jeevan MARIA examination was interpreted and the report reviewed and electronically signed by: KEMI DE LEON MD on Apr 18 2017 3:35PM EST Normal [facility] XR SHOULDER M2V [place] 2016 XR SHOULDER M2V UNI * * [...] joint is intact bilaterally. No fracture or dislocation.IMPRESSION :NO ACUTE BONY ABNORMALITY, NO CHANGE COMPARED TO PREVIOUS EXAM.Kettle Worker: SUSANA Transcribe Date/Time: Apr 18 2017 3:35PDictated by : KEMI DE LEON MDThis examination was interpreted and the report reviewed and electronically signed by: KEMI DE LEON MD on Apr 18 2017 3:37PM [facility] Vital Signs Date Time Vital Sign Value Performing Clinician Alin tam 09-20-2024 13:04-0500 Body mass index (BMI) [Ratio] 25 kg/m2 Pepe Carter MD Work Phone: [facility] [place] 09-20-2024 13:04-0500 Body weight 66.1 kg Pepe Carter MD Work Phone: [facility] [place] 09-20-2024 13:04-0500 Diastolic blood pressure 92 mm[Hg] Pepe Carter MD Work Phone: [facility] [place] 09-20-2024 13:04-0500 Heart rate 68 /min Pepe Carter MD Work Phone: [facility] [place] 09-20-2024 13:04-0500 Systolic blood pressure 135 mm[Hg] Pepe Carter MD Work Phone: [facility] [place] 09-10-2024 12:11-0500 Body height 162.6 cm Trudy Collins MD Work Phone: [facility] 09-10-2024 12:11-0500 Body mass index (BMI) [Ratio] 25.23 kg/m2 Trudy Collins MD Work Phone: [facility] 09-10-2024 12:11-0500 Body weight 66.68 kg Trudy Collins MD Work Phone: [facility] 09-10-2024 12:11-0500 Diastolic blood pressure 78 mm[Hg] Trudy Collins MD Work Phone: [facility] 09-10-2024 12:11-0500 Heart rate 79 /min Trudy Collins MD Work Phone: [facility] 09-10-2024 12:11-0500 Respiratory rate 18 /min Trudy Collins MD Work Phone: [facility] 09-10-2024 12:11-0500 Systolic blood pressure 146 mm[Hg] Trudy Collins MD Work Phone: [facility] 05-18-2024 10:16-0400 Body mass index (BMI) [Ratio] 25.04 kg/m2 Pepe Carter MD Work Phone: [facility] [place] 05-18-2024 10:16-0400 Body weight 66.2 kg Pepe Carter MD Work Phone: [facility] [place] 05-18-2024 10:16-0400 Diastolic blood pressure 91 mm[Hg] Pepe Carter MD Work Phone: [facility] [place] 05-18-2024 10:16-0400 Heart rate 90 /min Pepe Carter MD Work Phone: [facility] [place] 05-18-2024 10:16-0400 Systolic blood pressure 155 mm[Hg] Pepe Carter MD Work Phone: [facility] [place] 11-23-2023 08:58-0500 Body weight 68.95 kg Pepe Carter MD Work Phone: [facility] [place] 11-23-2023 08:58-0500 Diastolic blood pressure 83 mm[Hg] Pepe Carter MD Work Phone: [facility] [place] 11-23-2023 08:58-0500 Heart rate 81 /min Pepe Carter MD Work Phone: [facility] [place] 11-23-2023 08:58-0500 Systolic blood pressure 129 mm[Hg] Pepe Carter MD Work Phone: [facility] [place] 08-11-2022 09:13-0500 Body weight 66.13 kg Pepe Carter MD Work Phone: [facility] [place] 08-11-2022 09:13-0500 Diastolic blood pressure 72 mm[Hg] Pepe Carter MD Work Phone: [facility] [place] 08-11-2022 09:13-0500 Heart rate 83 /min Pepe Carter MD Work Phone: [facility] [place] 08-11-2022 09:13-0500 SaO2% (BldA) [Mass fraction] 99 % Pepe Carter MD Work Phone: [facility] [place] 08-11-2022 09:13-0500 Systolic blood pressure 115 mm[Hg] Pepe Carter MD Work Phone: [facility] [place] 04-08-2020 17:10-0400 BP Diastolic 72 mm[Hg] [facility] 04-08-2020 17:10-0400 BP Systolic 145 mm[Hg] [facility] 04-08-2020 17:10-0400 Pulse (Heart Rate) 94 /min [facility] 04-08-2020 17:10-0400 Pulse Oximetry 98 % [facility] 04-08-2020 17:10-0400 Respiratory Rate 13 /min [facility] 04-08-2020 17:00-0400 Body Temperature 97.39 [degF] [facility] 04-08-2020 09:55-0400 BMI (Body Mass Index) 24.6 kg/m2 [facility] 04-08-2020 09:55-0400 Body weight 65 kg [facility] 04-08-2020 09:55-0400 Height 162.6 cm [facility] 10-14-2019 15:05-0500 Respiratory Rate 14 /min [facility] 10-14-2019 07:13-0500 Body Temperature 98.29 [degF] [facility] 10-14-2019 07:13-0500 BP Diastolic 86 mm[Hg] [facility] 10-14-2019 07:13-0500 BP Systolic 134 mm[Hg] [facility] 10-14-2019 07:13-0500 Pulse (Heart Rate) 81 /min [facility] 10-14-2019 07:13-0500 Pulse Oximetry 97 % [facility] 10-12-2019 12:49-0500 BMI (Body Mass Index) 24.22 kg/m2 [facility] 10-12-2019 12:49-0500 Body weight 64 kg Ted Delvalle [facility] 10-12-2019 12:49-0500 Height 162.6 cm Ted Delvalle [facility] 10-08-2019 10:45-0500 BMI (Body Mass Index) 24.55 kg/m2 Rose Mendoza [facility] 10-08-2019 10:45-0500 Body weight 64.86 kg Rose Mendoza [facility] 10-08-2019 10:45-0500 Height 162.6 cm Rose Mendoza [facility] 10-08-2019 10:40-0500 Body Temperature 98.01 [degF] Rose Mendoza [facility] 10-08-2019 10:40-0500 BP Diastolic 99 mm[Hg] Rose Mendoza [facility] 10-08-2019 10:40-0500 BP Systolic 179 mm[Hg] Rose Mendoza [facility] 10-08-2019 10:40-0500 Pulse (Heart Rate) 95 /min Rosecorey Mendoza [facility] 10-08-2019 10:40-0500 Respiratory Rate 16 /min Rose Mendoza [facility] 09-05-2019 11:12-0500 Body Temperature 99.19 [degF] [facility] 09-[facility] 11:12-0500 BP Diastolic 62 mm[Hg] [place] [facility] 09-05-2019 11:12-0500 BP Systolic 99 mm[Hg] [place] [facility] 09-05-2019 11:12-0500 Pulse (Heart Rate) 96 /min [place] [facility] 09-05-2019 11:12-0500 Pulse Oximetry 97 % [facility] 09-05-2019 11:12-0500 Respiratory Rate 12 /min [place] [facility] 09-04-2019 09:34-0500 BMI (Body Mass Index) 25.05 kg/m2 [facility] 09-04-2019 09:34-0500 Body weight 66.2 kg [facility] 09-04-2019 09:34-0500 Height 162.6 cm [place] [facility] 08-28-2019 13:08-0500 BMI (Body Mass Index) 24.22 kg/m2 Leatha Christ [facility] 08-28-2019 13:08-0500 Body Temperature 98.8 [degF] [facility] 08-28-2019 13:08-0500 Body weight 64 kg Leathaesteban Gomez [facility] 08-28-2019 13:08-0500 BP Diastolic 92 mm[Hg] Leatha Christ [facility] 08-28-2019 13:08-0500 BP Systolic 147 mm[Hg] Leatha Christ [facility] 08-28-2019 13:08-0500 Height 162.6 [facility] 13:08-0500 Pulse (Heart Rate) 85 /min Leatha Christ [facility] 08-28-2019 13:08-0500 Pulse Oximetry 96 % Leathaesteban Gomez [facility] 08-28-2019 13:08-0500 Respiratory Rate 13 /min Leathaesteban Gomez [facility] 04-30-2019 13:45-0400 BP Diastolic 95 mm[Hg] Rose Mendoza [facility] 04-30-2019 13:45-0400 BP Systolic 174 mm[Hg] Rose Mendoza [facility] 04-30-2019 13:45-0400 Pulse (Heart Rate) 93 /min Rosecorey Mendoza [facility] 04-30-2019 13:42-0400 Body Temperature 98.49 [degF] Rose Mendoza [facility] 04-30-2019 13:42-0400 Respiratory Rate 18 /min Rose Mendoza [facility] 04-23-2019 15:12-0400 BMI (Body Mass Index) 24.55 kg/m2 Rose Mendoza [facility] 04-23-2019 15:12-0400 Body Temperature 98.2 [degF] Rose Mendoza [facility] 04-23-2019 15:12-0400 Body weight 64.86 kg Rose Mendoza [facility] 04-23-2019 15:12-0400 BP Diastolic 85 mm[Hg] Rose Mendoza [facility] 04-23-2019 15:12-0400 BP Systolic 162 mm[Hg] Rose Mendoza [facility] 04-23-2019 15:12-0400 Height 162.6 cm Rosecorey Mendoza [facility] 04-23-2019 15:12-0400 Pulse (Heart Rate) 92 /min Rosecorey Mendoza [facility] 04-23-2019 15:12-0400 Respiratory Rate 18 /min Rose Mendoza [facility] 02-28-2019 14:05-0400 Respiratory Rate 12 /min [facility] 02-28-2019 11:38-0400 Body Temperature 97.9 [degF] [facility] 02-28-2019 11:38-0400 BP Diastolic 91 mm[Hg] [facility] 02-28-2019 11:38-0400 BP Systolic 155 mm[Hg] [facility] 02-28-2019 11:38-0400 Pulse (Heart Rate) 83 /min [facility] 02-28-2019 11:38-0400 Pulse Oximetry 99 % [facility] 02-27-2019 06:43-0400 BMI (Body Mass Index) 24.41 kg/m2 [facility] 02-27-2019 06:43-0400 Height 162.6 cm [facility] 02-27-2019 06:43-0400 Weight 64.5 kg [facility] 02-21-2019 11:47-0400 BMI (Body Mass Index) 24.22 kg/m2 [facility] 02-21-2019 11:47-0400 Body Temperature 98.01 [degF] [facility] 02-21-2019 11:47-0400 BP Diastolic 105 mm[Hg] [facility] 02-21-2019 11:47-0400 BP Systolic 190 mm[Hg] [facility] 02-21-2019 11:47-0400 Height 162.6 cm [facility] 02-21-2019 11:47-0400 Pulse (Heart Rate) 81 /min [facility] 02-21-2019 11:47-0400 Pulse Oximetry 98 % [facility] 02-21-2019 11:47-0400 Respiratory Rate 18 /min [facility] 02-21-2019 11:47-0400 Weight 64 kg [facility] Encounters Encounter Date Encounter Type Care Provider Facility Start: 10-09-2024 End: 10-09-2024 Bamboo flowsheet Leo Chua [facility] Start: 10-09-2024 End: 10-09-2024 Bamboo flowsheet Leo Chua [facility] Start: 10-09-2024 End: 10-09-2024 ambulatory Leo Chua [facility] Comment on above: Right hip pain (Prim case Dx); Right leg weakness; Difficulty walking Start: 10-07-2024 End: 10-07-2024 ambulatory Leo Chua [facility] Comment on above: Right hip pain (Prim case Dx); Right leg weakness; Difficulty walking Start: 10-03-2024 End: 10-03-2024 ambulatory LEO CHUA Not Available Start: 10-03-2024 End: 10-03-2024 ambulatory Leo Chua [facility] Comment on above: Right hip pain (Prim case Dx); Right leg weakness; Difficulty walking Start: 09-29-2024 End: 09-30-2024 ambulatory Pepe Carter MD Work Phone: Rheumatology Comment on above: [employer] Start: 09-23-2024 End: 09-23-2024 Bamboo flowsheet Liu Cobb [facility] Start: 09-23-2024 End: 09-23-2024 Bamboo flowsheet Liu Cobb [facility] Start: 09-23-2024 End: 09-23-2024 ambulatory Liu Cobb [facility] Comment on above: Right hip pain (Prim case Dx); Right leg weakness; Difficulty walking Start: 09-22-2024 End: 09-23-2024 Telephone encounter Pepe Carter MD Work Phone: Rheumatology Comment on above: Results Start: 09-20-2024 End: 09-20-2024 ambulatory [facility] Facility:[facility] Start: 09-20-2024 End: 09-20-2024 ambulatory [facility] Facility:[facility] Start: 09-20-2024 End: 09-20-2024 Patient encounter procedure Pepe Carter MD Work Phone: Rheumatology Comment on above: Rheumatoid arthritis of multiple sites without organ or system involvement with positive rheumatoid factor (HCC) (Primary Dx); Postmenopausal osteoporosis of multiple sites; Personal history of (healed) other pathological fracture; Dry eye syndrome of both eyes; Secondary osteoarthritis of multiple sites; Long-term use of high-risk medication; Bilateral hand pain; Chronic elbow pain, right; Joint stiffness of multiple sites; Chronic bilateral low back pain with right-sided sciatica; Vitamin D deficiency; Chronic pain of both shoulders; Elevated sed rate; Synovitis of hand; Bilateral elbow joint pain; Abnormality of gait; Fibromyalgia; Chronic jaw pain; Chronic hip pain, right Start: 09-19-2024 End: 09-19-2024 Bamboo flowsheet Liu Brink [facility] Start: 09-19-2024 End: 09-19-2024 Bamboo flowsheet Liu Brink [facility] Start: 09-19-2024 End: 09-19-2024 ambulatory Liu Brink [facility] Comment on above: Right hip pain (Prim case Dx); Right leg weakness; Difficulty walking Start: 09-16-2024 End: 09-16-2024 Bamboo flowsheet Liu Brink [facility] Start: 09-16-2024 End: 09-16-2024 Bamboo flowsheet Liu Palominoink [facility] Start: 09-16-2024 End: 09-16-2024 ambulatory Liu Brink [facility] Comment on above: Right hip pain (Prim case Dx); Right leg weakness; Difficulty walking Start: 09-10-2024 End: 09-10-2024 [employer] Trudy Collins MD Work Phone: [facility] Start: 09-10-2024 End: 09-10-2024 [facility] Work Phone: [facility] Start: 09-10-2024 End: 09-10-2024 Office outpatient visit 25 minutes Trudy Collins MD Work Phone: [facility] Comment on above: Type 2 diabetes arlin itus with hyperglycemia, with long-term current use of insulin (CMS/HCC) (Primary Dx); Primary hypertension (CMS/HCC); Insulin long-term use (CMS/HCC); Hyperlipemia, mixed (CMS/HCC); Vitamin D deficiency; Encounter for dietary consultation; Postoperative hypothyroidism (CMS/HCC) Start: 09-10-2024 End: 09-10-2024 ambulatory AHMAD F PA Not Available Start: 09-09-2024 End: 09-09-2024 Bamboo flowsheet Liu Brink [facility] Start: 09-09-2024 End: 09-09-2024 Bamboo flowsheet Liu Brink [facility] Start: 09-09-2024 End: 09-09-2024 ambulatory Liu Brink [facility] Comment on above: Right hip pain (Prim case Dx); Right leg weakness; Difficulty walking Start: 09-05-2024 End: 09-05-2024 Bamboo flowsheet Liu Brink [facility] Start: 09-05-2024 End: 09-05-2024 Bamboo flowsheet Liu Brink [facility] Start: 09-05-2024 End: 09-05-2024 ambulatory Liu Brink [facility] Comment on above: Right hip pain (Prim case Dx); Right leg weakness; Difficulty walking Start: 09-03-2024 End: 09-03-2024 Bamboo flowsheet Fela Champagnebley [facility] Start: 09-03-2024 End: 09-03-2024 Bamboo flowsheet Felaaj Champagnebley [facility] Start: 09-03-2024 End: 09-03-2024 ambulatory Fela Champagnebley [facility] Comment on above: Right hip pain (Prim case Dx); Right leg weakness; Difficulty walking Start: 08-28-2024 End: 08-28-2024 Bamboo flowsheet Liu Brink [facility] Start: 08-28-2024 End: 08-28-2024 Bamboo flowsheet Liu Brink [facility] Start: 08-28-2024 End: 08-28-2024 ambulatory Liu Brink [facility] Comment on above: Right hip pain (Prim case Dx); Right leg weakness; Difficulty walking Start: 08-26-2024 End: 08-26-2024 Bamboo flowsheet Liu Brink [facility] Start: 08-26-2024 End: 08-26-2024 Bamboo flowsheet Liu Brink [facility] Start: 08-26-2024 End: 08-26-2024 ambulatory Liu Brink [facility] Comment on above: Right hip pain (Prim case Dx); Right leg weakness; Difficulty walking Start: 08-22-2024 End: 08-22-2024 Bamboo flowsheet Liu Brink [facility] Start: 08-22-2024 End: 08-22-2024 Bamboo flowsheet Liu Brink [facility] Start: 08-22-2024 End: 08-22-2024 ambulatory Liu Brink [facility] Comment on above: Right hip pain (Prim case Dx); Right leg weakness; Difficulty walking Start: 08-19-2024 End: 08-19-2024 Bamboo flowsheet Magdalena Chaitanya Windypawel PT Work Phone: [facility] Start: 08-19-2024 End: 08-19-2024 Bamboo flowsheet Magdalena Tavares Wind[facility] PT Work Phone: [facility] Start: 08-19-2024 End: 08-19-2024 ambulatory Magdalena Tavares Wind[facility] PT Work Phone: [facility] Comment on above: Right hip pain (Prim case Dx); Right leg weakness; Difficulty walking Start: 08-16-2024 End: 08-16-2024 Bamboo flowsheet Liu Brink [facility] Start: 08-16-2024 End: 08-16-2024 Bamboo flowsheet Liu Brink [facility] Start: 08-16-2024 End: 08-16-2024 ambulatory Liu Brink [facility] Comment on above: Right hip pain (Prim case Dx); Right leg weakness; Difficulty walking Start: 08-14-2024 End: 08-14-2024 Bamboo flowsheet Liu Brink [facility] Start: 08-14-2024 End: 08-14-2024 Bamboo flowsheet Liu Brink [facility] Start: 08-14-2024 End: 08-14-2024 ambulatory Liu Brink [facility] Comment on above: Right hip pain (Prim case Dx); Right leg weakness; Difficulty walking Start: 08-08-2024 End: 08-08-2024 Bamboo flowsheet Liu Cobb [facility] Start: 08-08-2024 End: 08-08-2024 Bamboo flowsheet Liu Cobb [facility] Start: 08-08-2024 End: 08-08-2024 Telephone encounter Liu Cobb [facility] Comment on above: PT Auth received (Tr ied to contact, but had to lm, noting we had received PT auth dated 08/12- 09/11/24 w/ 8 more PT's given. Requested call back.); Call Back (She called and we scheduled out her PT per AUTH received; noted copay is still due.) Start: 08-08-2024 End: 08-08-2024 ambulatory Liu Cobb [facility] Comment on above: Right hip pain (Prim case Dx); Right leg weakness; Difficulty walking Start: 08-06-2024 End: 08-06-2024 Bamboo flowsheet Magdalena Barnes PT Work Phone: [facility] Start: 08-06-2024 End: 08-06-2024 Bamboo flowsheet Magdalena Barnes PT Work Phone: [facility] Start: 08-06-2024 End: 08-06-2024 ambulatory Magdalena Barnes PT Work Phone: [facility] Comment on above: Right hip pain (Prim case Dx); Right leg weakness; Difficulty walking Start: 08-01-2024 End: 08-01-2024 Bamboo flowsheet Fela Mezay [facility] Start: 08-01-2024 End: 08-01-2024 Bamboo flowsheet Fela Mezay [facility] Start: 08-01-2024 End: 08-01-2024 ambulatory Fela Mezay [facility] Comment on above: Right hip pain (Prim case Dx); Right leg weakness; Difficulty walking Start: 07-30-2024 End: 07-30-2024 Bamboo flowsheet Liu Cobb [facility] Start: 07-30-2024 End: 07-30-2024 Bamboo flowsheet Liu Brink [facility] Start: 07-30-2024 End: 07-30-2024 ambulatory Liu Brink [facility] Comment on above: Right hip pain (Prim case Dx); Right leg weakness; Difficulty walking Start: 07-22-2024 End: 07-22-2024 Bamboo flowsheet Liu Brink [facility] Start: 07-22-2024 End: 07-22-2024 Bamboo flowsheet Liu Brink [facility] Start: 07-22-2024 End: 07-22-2024 ambulatory Liu Brink [facility] Comment on above: Right hip pain (Prim case Dx); Right leg weakness; Difficulty walking Start: 07-18-2024 End: 07-18-2024 Bamboo flowsheet Fela Mezay [facility] Start: 07-18-2024 End: 07-18-2024 Bamboo flowsheet Fela Mezay [facility] Start: 07-18-2024 End: 07-18-2024 ambulatory Fela Mezay [facility] Comment on above: Right hip pain (Prim case Dx); Right leg weakness; Difficulty walking Start: 07-16-2024 End: 07-16-2024 Bamboo flowsheet Liu Brink [facility] Start: 07-16-2024 End: 07-16-2024 Bamboo flowsheet Liu Brink [facility] Start: 07-16-2024 End: 07-16-2024 ambulatory Liu Brink [facility] Comment on above: Right hip pain (Prim case Dx); Right leg weakness; Difficulty walking Start: 07-11-2024 End: 07-11-2024 Bamboo flowsheet Magdalena Barnes PT Work Phone: [facility] Start: 07-11-2024 End: 07-11-2024 Bamboo flowsheet Magdalena Barnes PT Work Phone: [facility] Start: 07-11-2024 End: 07-11-2024 ambulatory Magdalena Barnes PT Work Phone: [facility] Comment on above: Right hip pain (Prim case Dx); Right leg weakness; Difficulty walking Start: 06-06-2024 End: 06-06-2024 [facility] Facility:[facility] Start: 06-06-2024 End: 06-06-2024 Subsequent hospital visit by physician Sparkle [facility] Comment on above: Trigger middle finge r of right hand [M65.331] Start: 05-18-2024 End: 05-18-2024 [facility] Facility:[facility] Start: 05-18-2024 End: 05-18-2024 Patient encounter procedure [...] Comment on above: Results Start: 05-14-2024 End: 11-01-2024 ambulatory PRETTY Díaz EMILEEAaron Facility:[facility] Comment on above: Refill Request Start: 12-29-2023 Telephone encounter Pepe allison MD Work Phone: Rheumatology Comment on above: Patient Question Start: 11-23-2023 End: 11-23-2023 ambulatory [facility] Facility:[facility] Start: 11-23-2023 End: 11-23-2023 Patient encounter procedure [...] 07-27-2022 Refill Pepe Carter MD Work Phone: [facility] [place] Comment on above: Refill Request Start: 07-06-2022 End: 07-07-[address] LATASHA HAYES Facility:[facility] Start: 04-17-2022 Refill Pepe Carter MD Work Phone: [facility] [place] Comment on above: Refill Request Start: 02-01-2022 End: 02-02-2022 ambulatory TRUDY COLLNIS Facility:[facility] Start: 01-14-2022 End: 01-15-2022 ambulatory TAWANDA COOK Facility:[facility] Start: 01-13-2022 End: 01-14-[address] STU SAMUEL Facility:[facility] Start: 12-31-2021 End: 01-01-2022 ambulatory TAWANDA COOK Facility:[facility] Start: 12-30-2021 End: 12-30-2021 ambulatory Janel Bre Jodi MILAN.ELECTRONIC IMAGER Work Phone: Rheumatology Comment on above: Rheumatoid arthritis of multiple sites without organ or system involvement with positive rheumatoid factor (HCC) (Primary Dx); Bilateral elbow joint pain; Fibromyalgia; Primary osteoarthritis of both wrists; Synovitis of hand; Long-term use of high-risk medication; Joint stiffness of multiple sites; Bilateral hand pain Start: 12-30-2021 End: 12-30-2021 Telemedicine consultation with patient Janel Díaz Jodi MILAN.ELECTRONIC IMAGER Work Phone: [facility] Start: 12-29-2021 Telephone encounter Pepe allison MD Work Phone: Rheumatology Comment on above: Results Start: 12-28-2021 End: 12-29-2021 ambulatory TAWANDA COOK Facility:[facility] Start: 07-26-2021 End: 07-26-2021 Subsequent hospital visit by physician Xr [facility] Comment on above: Chronic elbow pain, left [M25.522, G89.29] Start: 12-08-2020 End: 12-08-2020 Orders Only Migdalia Wilson Work Phone: [facility] Provider Hospitalist Start: 04-08-2020 End: 04-08-2020 Patient encounter procedure AYDE ALMANZAR [facility] Start: 04-08-2020 End: 04-08-2020 Subsequent hospital visit by physician Ayde Almanzar Work Phone: [facility] Periop Comment on above: Post-op pain (Primar y Dx) Start: 04-06-2020 End: 04-06-2020 Patient encounter procedure AYDE ALMANZAR [facility] Start: 04-01-2020 End: 04-01-2020 Patient encounter procedure [facility] Start: 10-14-2019 Patient encounter procedure DEREK ZABALA [facility] Start: 10-12-2019 End: 10-14-2019 Patient encounter procedure PRETTY FERMIN [facility] Start: 10-12-2019 End: 10-14-2019 Emergency department patient visit Ted Delvalle Work Phone: [facility] Comment on above: Complication of proc edure, subsequent encounter (Primary Dx); Acute neuritis; Non-healing wound of upper extremity, left, initial encounter Start: 10-08-2019 End: 10-08-2019 Patient encounter procedure ROSE MENDOZA [facility] Start: 10-08-2019 End: 10-08-2019 Patient encounter procedure Rose Sierra Mendoza Work Phone: [facility] Comment on above: Skin ulcer of elbow with fat layer exposed (HCC) (Primary Dx); Type 2 diabetes mellitus with other skin ulcer, with long-term current use of insulin (HCC); Rheumatoid arthritis involving left elbow with positive rheumatoid factor (HCC); Fibromyalgia affecting forearm Start: 09-04-2019 End: 09-05-2019 Evaluation and management of inpatient [facility] Start: 09-04-2019 End: 09-05-2019 [facility] Work Phone: [facility] Comment on above: Post-operative pain (Primary Dx); Elbow pain, unspecified laterality Start: 08-28-2019 End: 08-28-2019 Patient encounter procedure [facility] Start: 08-28-2019 End: 08-28-2019 Patient encounter procedure Ayde Almanzar Work Phone: [facility] Preadmission Testing Comment on above: Preop examination [...] 04-30-2019 End: 04-30-2019 Patient encounter procedure ROSE HARTMANAmbreen MENDOZA [facility] Start: 04-30-2019 End: 04-30-2019 Office outpatient visit 5 minutes Rose Mendoza Work Phone: [facility] Comment on above: Skin ulcer of elbow with fat layer exposed (HCC) (Primary Dx); Type 2 diabetes mellitus with other skin ulcer, with long-term current use of insulin (HCC); Rheumatoid arthritis involving right elbow, unspecified rheumatoid factor presence (HCC); Fibromyalgia affecting forearm; Essential hypertension Start: 04-23-2019 Patient encounter procedure AUNDREA CLIFFORD [facility] Start: 04-23-2019 End: 04-23-2019 Patient encounter procedure Aundrea Clifford Work Phone: [facility] Comment on above: Skin ulcer of elbow with fat layer exposed (HCC) (Primary Dx); Type 2 diabetes mellitus with other skin ulcer, with long-term current use of insulin (HCC); Rheumatoid arthritis involving right elbow, unspecified rheumatoid factor presence (HCC); Fibromyalgia affecting forearm; Essential hypertension Start: 02-27-2019 End: 02-28-2019 Patient encounter procedure Ayde Almanzar Work Phone: [facility] Comment on above: Elbow injury, unspec ified laterality, sequela (Primary Dx) Start: 02-21-2019 End: 02-21-2019 Patient encounter procedure Sveta Silva Work Phone: [facility] Diagnostics Comment on above: Pre-op exam Start: 02-21-2019 End: 02-21-2019 Patient encounter procedure Ayde Almanzar Work Phone: [facility] Preadmission Testing Comment on above: Pre-op exam [...] (DVT) prophylaxis Start: 04-18-2017 Ambulatory PEPE CARTER [facility] ital Procedures Date Procedure Procedure Detail Performing Clinician Start: 09-10-2024 Gluc bld gluc mntr d ev cleared fda spec home use Trudy Collins MD Work Phone: Start: 07-26-2021 Radex elbow 2 views Mar [...] 10-14-2019 Glucose [Mass/volume ] in Blood Generic [facility] Work Phone: Start: 10-14-2019 Glucose [Mass/volume ] in Blood Generic [facility] Work Phone: Start: 10-14-2019 Basic metabolic [...] cervical 6 or more views Sveta Pretty Silva Work Phone: Start: 02-21-2019 Creatinine [Mass/vol ume] in Serum or Plasma Sveta Johnson Sho Work Phone: Start: 02-21-2019 Glucose [Mass/volume ] in Serum or Plasma Sveta Silva Work Phone: Start: 02-21-[address] Generic Plan of Treatment Date Care Activity Detail Author Start: 06-17-2034 Urine microalbumin profile DTaP,Tdap,Td Vaccine (2 - Td or Tdap) [facility] Start: 09-01-2025 End: 09-01-2025 Patient encounter procedure 09/01/2025 1:00 PM EST Office Visit Rheumatology [address] [place] [address] Pepe Carter MD [address] [facility] [place] [address] Follow-up disposition: Return labs, for RA/osteoarthritis/osteo penia fu OV 6-12months. Rheumatology Comment on above: Follow-up disposition: Return labs, for RA/osteoarthritis/osteopenia fu OV 6-12months. Start: 03-11-2025 Hemoglobin A1c measurement HbA1C [facility] Start: 01-08-2025 End: 01-08-2025 Patient encounter procedure 01/08/2025 11:30 AM EDT Office Visit [facility] [address] [place] [address] Trudy Collins MD [address] [place] [address] [facility] Start: 12-24-2024 End: 12-24-2024 Patient encounter procedure 12/24/2024 8:55 AM EDT Appointment Radiology [address] [place] [address] Postmenopausal osteoporosis of multiple sites [M81.0] Radiology Comment on above: Postmenopausal osteoporosis of multiple sites [M81.0] Start: 12-21-2024 End: 09-22-2025 25-hydroxyvitamin D3 [Mass/volume] in Serum or Plasma VITAMIN D 25 HYDROXY Lab Routine Vitamin D deficiency Expected: 12/21/2024 (Approximate), Expires: 09/22/2025 [facility] Comment on above: Expected: 12/21/2024 (Approximate), Expi res: 09/22/2025 Start: 12-21-2024 End: 09-22-2025 BLOOD TB SCREEN BLOOD TB SCREEN Lab Routine Screening-pulmonary TB Expected: 12/21/2024 (Approximate), Expires: 09/22/2025 [facility] Comment on above: Expected: 12/21/2024 (Approximate), Expi res: 09/22/2025 Start: 12-21-2024 End: 09-22-2025 C reactive protein [Mass/volume] in Serum or Plasma C-REACTIVE PROTEIN Lab Routine Elevated sed rate Elevated C-reactive protein (CRP) Expected: 12/21/2024 (Approximate), Expires: 09/22/2025 [facility] Comment on above: Expected: 12/21/2024 (Approximate), Expi res: 09/22/2025 Start: 12-21-2024 End: 09-22-2025 CBC panel - Blood by Automated count COMPLETE BLOOD COUNT Lab Routine Anemia of chronic disease Expected: 12/21/2024 (Approximate), Expires: 09/22/2025 [facility] Comment on above: Expected: 12/21/2024 (Approximate), Expi res: 09/22/2025 Start: 12-21-2024 End: 09-22-2025 Comprehensive metabolic 2000 panel - Serum or Plasma COMPREHENSIVE METABOLIC PANEL Lab Routine Elevated LFTs Expected: 12/21/2024 (Approximate), Expires: 09/22/2025 [facility] Work Phone: Comment on above: Expected: 12/21/2024 (Approximate), Expi res: 09/22/2025 Start: 12-21-2024 End: 09-22-2025 Erythrocyte sedimentation rate SEDIMENTATION RATE, WESTERGREN Lab Routine Elevated sed rate Elevated C-reactive protein (CRP) Expected: 12/21/2024 (Approximate), Expires: 09/22/2025 [facility] Comment on above: Expected: 12/21/2024 (Approximate), Expi res: 09/22/2025 Start: 11-22-2024 End: 11-22-2024 Patient encounter procedure 11/22/2024 12:20 PM EST Office Visit Rheumatology [address] [place], [place] [id number] Pepe Carter MD [address] [place], [place] [id number] for RA/osteoarthritis/osteo penia fu OV 6months. Rheumatology Comment on above: for RA/osteoarthritis/osteopenia fu OV 6 months. Start: 10-11-2024 End: 10-11-2024 ambulatory 10/11/2024 8:30 AM EST Treatment [facility] [address] [facility] [address] [place] [address] Liu Cobb PTA [facility] Start: 10-09-2024 End: 10-09-2024 ambulatory [facility] Comment on above: Arrived Start: 10-07-2024 End: 10-07-2024 ambulatory 10/07/2024 7:00 AM EST Treatment [facility] [address] [facility] [address] [place] [address] Leo Chua PTA [facility] Start: 10-03-2024 End: 10-03-2024 ambulatory 10/03/2024 7:30 AM EST Treatment [facility] [address] [place] [address] Leo Chua PTA [facility] Start: 10-02-2024 Advance Directive Discussion Advance Directive Discussion [facility] Start: 09-30-2024 End: 09-30-2024 ambulatory 09/30/2024 8:00 AM EST Treatment [facility] [address] [place] [address] Leo Chua PTA [facility] Start: 09-27-2024 End: 09-27-2024 Patient encounter procedure Radiology Comment on above: right elbow xr Trigger middle finge r of right hand [M65.331] Start: 09-26-2024 End: 09-26-2024 ambulatory 09/26/2024 7:30 AM EST Treatment [facility] [address] [place] [address] Liu Cobb PTA [facility] Start: 09-23-2024 End: 09-23-2024 ambulatory [facility] Comment on above: Arrived Start: 09-19-2024 End: 09-19-2024 ambulatory [facility] Comment on above: Arrived Start: 09-16-2024 End: 09-16-2024 ambulatory 09/16/2024 8:00 AM EST Treatment [facility] [address] [place] [address] Liu Cobb PTA [facility] Start: 09-12-2024 End: 09-12-2024 ambulatory 09/12/2024 7:30 AM EST Treatment [facility] [address] [place] [address] Liu Cobb PTA [facility] Start: 09-10-2024 End: 09-10-2025 25-hydroxyvitamin D3 [Mass/volume] in Serum or Plasma Vitamin D 25 hydroxy Total Lab Routine Type 2 diabetes mellitus with hyperglycemia, with long-term current use of insulin (CMS/HCC) Expected: 09/10/2024 (Approximate), Expires: 09/10/2025 [facility] Comment on above: Expected: 09/10/2024 (Approximate), Expi res: 09/10/2025 Start: 09-10-2024 End: 09-10-2025 C-peptide C-peptide Lab Routine Type 2 diabetes mellitus with hyperglycemia, with long-term current use of insulin (CMS/HCC) Expected: 09/10/2024 (Approximate), Expires: 09/10/2025 [facility] Work Phone: Comment on above: Expected: 09/10/2024 (Approximate), Expi res: 09/10/2025 Start: 09-10-2024 End: 09-10-2025 Lipid 1996 panel - Serum or Plasma Lipid panel Lab Routine Type 2 diabetes mellitus with hyperglycemia, with long-term current use of insulin ([facility]/HCC) Expected: 09/10/2024 (Approximate), Expires: 09/10/2025 [facility] Comment on above: Expected: 09/10/2024 (Approximate), Expi res: 09/10/2025 Start: 09-10-2024 End: 09-10-2025 Microalbumin/Creatinine panel in random Urine Microalbumin / creatinine urine ratio Lab Routine Type 2 diabetes mellitus with hyperglycemia, with long-term current use of insulin (CMS/HCC) Expected: 09/10/2024 (Approximate), Expires: 09/10/2025 [facility] Comment on above: Expected: 09/10/2024 (Approximate), Expi res: 09/10/2025 Start: 09-10-2024 End: 09-10-2025 Renal function panel Renal function panel Lab Routine Type 2 diabetes mellitus with hyperglycemia, with long-term current use of insulin ([facility]/HCC) Expected: 09/10/2024 (Approximate), Expires: 09/10/2025 [facility] Comment on above: Expected: 09/10/2024 (Approximate), Expi res: 09/10/2025 Start: 09-10-2024 End: 09-10-2025 Thyrotropin [Units/volume] in Serum or Plasma TSH Lab Routine Postoperative hypothyroidism ([facility]/HCC) Expected: 09/10/2024 (Approximate), Expires: 09/10/2025 [facility] Comment on above: Expected: 09/10/2024 (Approximate), Expi res: 09/10/2025 Start: 09-10-2024 End: 09-10-2025 Thyroxine (T4) free [Mass/volume] in Serum or Plasma T4, free Lab Routine Postoperative hypothyroidism ([facility]/HCC) Expected: 09/10/2024 (Approximate), Expires: 09/10/2025 [facility] Comment on above: Expected: 09/10/2024 (Approximate), Expi res: 09/10/2025 Start: 09-10-2024 End: 09-10-2025 Triiodothyronine (T3) Free [Mass/volume] in Serum or Plasma T3, free Lab Routine Postoperative hypothyroidism (CMS/HCC) Expected: 09/10/2024 (Approximate), Expires: 09/10/2025 [facility] Comment on above: Expected: 09/10/2024 (Approximate), Expi res: 09/10/2025 Start: 09-10-2024 End: 09-10-2024 Patient encounter procedure [facility] Comment on above: Type 2 diabetes mellitus with hyperglyce nimo, with long-term current use of insulin ([facility] Start: 09-09-2024 End: 09-09-2024 ambulatory 09/09/2024 9:00 AM EST Treatment [facility] [address] [facility] [address] [place] [address] Liu Cobb, [facility] Right hip pain (Primary Dx); Right leg weakness; Difficulty walking [facility] Comment on above: Right hip pain (Primary Dx); Right leg weakness; Difficulty walking Start: 09-05-2024 End: 09-05-2024 ambulatory 09/05/2024 7:30 AM EST Treatment [facility] [address] [facility] [address] [place] [address] Liu Cobb PTA [facility] Start: 09-04-2024 End: 09-04-2024 Patient encounter procedure 09/04/2024 2:00 PM EST Office Visit Orthopaedics [address] [facility] [place] [address] Kashmir Pereira MD [address] [facility] [place] [address] Trigger middle finger of right hand [M65.331] Orthopaedics Comment on above: Trigger middle finger of right hand [M65 .331] Start: 09-03-2024 End: 09-03-2024 ambulatory 09/03/2024 8:00 AM EST Treatment [facility] [address] [place] [address] Liu Cobb, NOM[facility] Start: 08-28-2024 End: 08-28-2024 ambulatory [facility] Comment on above: Arrived Start: 08-26-2024 End: 08-26-2024 ambulatory [facility] Comment on above: Arrived Start: 08-22-2024 End: 08-22-2024 ambulatory [facility] Comment on above: Arrived Start: 08-19-2024 End: 08-19-2024 ambulatory 08/19/2024 8:30 AM EST Treatment [facility] [address] [place] [address] Magdalena Barnes, PT [address] [place] [address] [facility] Start: 08-16-2024 End: 08-16-2024 ambulatory 08/16/2024 9:00 AM EST Treatment [facility] [address] [place] [address] Liu Cobb, NOMI [facility] Start: 08-15-2024 End: 05-15-2025 25-hydroxyvitamin D3 [Mass/volume] in Serum or Plasma VITAMIN D 25 HYDROXY Lab Routine Vitamin D deficiency Expected: 08/15/2024 (Approximate), Expires: 05/15/2025 [facility] Comment on above: Expected: 08/15/2024 (Approximate), Expi res: 05/15/2025 Start: 08-15-2024 End: 05-15-2025 C reactive protein [Mass/volume] in Serum or Plasma C-REACTIVE PROTEIN Lab Routine Elevated sed rate Elevated C-reactive protein (CRP) Expected: 08/15/2024 (Approximate), Expires: 05/15/2025 [facility] Comment on above: Expected: 08/15/2024 (Approximate), Expi res: 05/15/2025 Start: 08-15-2024 End: 05-15-2025 CBC panel - Blood by Automated count COMPLETE BLOOD COUNT Lab Routine Anemia of chronic disease Expected: 08/15/2024 (Approximate), Expires: 05/15/2025 [facility] Comment on above: Expected: 08/15/2024 (Approximate), Expi res: 05/15/2025 Start: 08-15-2024 End: 05-15-2025 Comprehensive metabolic 2000 panel - Serum or Plasma COMPREHENSIVE METABOLIC PANEL Lab Routine Elevated LFTs Expected: 08/15/2024 (Approximate), Expires: 05/15/2025 [facility] Work Phone: Comment on above: Expected: 08/15/2024 (Approximate), Expi res: 05/15/2025 Start: 08-15-2024 End: 05-15-2025 Erythrocyte sedimentation rate SEDIMENTATION RATE, WESTERGREN Lab Routine Elevated sed rate Elevated C-reactive protein (CRP) Expected: 08/15/2024 (Approximate), Expires: 05/15/2025 [facility] Comment on above: Expected: 08/15/2024 (Approximate), Expi res: 05/15/2025 Start: 08-14-2024 End: 08-14-2024 ambulatory 08/14/2024 9:30 AM EST Treatment [facility] [address] [place] [address] Liu Cobb, CAFE AIDE [facility] Start: 08-08-2024 End: 08-08-2024 ambulatory [facility] Comment on above: Arrived Start: 08-06-2024 End: 08-06-2024 ambulatory [facility] Comment on above: Arrived Start: 08-01-2024 End: 08-01-2024 ambulatory [facility] Comment on above: Arrived Start: 07-30-2024 End: 07-30-2024 ambulatory [facility] Comment on above: Arrived Start: 07-25-2024 End: 07-25-2024 ambulatory 07/25/2024 8:30 AM EDT Treatment [facility] [address] [facility] [address] [place] [address] Liu Cobb PTA [facility] Start: 07-22-2024 End: 07-22-2024 ambulatory [facility] Comment on above: Arrived Start: 07-18-2024 End: 07-18-2024 ambulatory [facility] Comment on above: Arrived Start: 07-16-2024 End: 07-16-2024 ambulatory [facility] Comment on above: Arrived Start: 07-11-2024 End: 07-11-2024 ambulatory 07/11/2024 9:00 AM EDT Evaluation [facility] [address] [facility] [address] [place] [address] Magdalena Barnes, PT [address] [facility] [address] [place] [address] Arrived [facility] Comment on above: Arrived Start: 06-02-2024 Influenza vaccination [facility] Start: 2024 Advance Directive Discussion Advance Directive Discussion [facility] Start: 2024 Pneumococcal Vaccine: 65+ Years (1 of 1 - PCV) Pneumococcal Vaccine: 65+ Years (1 of 1 - PCV) [facility] Start: 2024 Screening for osteoporosis Bone Density Screening [facility] Start: 05-22-2024 End: 05-22-2024 Patient encounter procedure 05/22/2024 9:15 AM EDT Appointment Radiology [address] [place] [address] Trigger middle finger of right hand [M65.331] Radiology Comment on above: Trigger middle finger of right hand [M65 .331] Start: 05-18-2024 End: 05-18-2024 Patient encounter procedure 05/18/2024 10:20 AM EDT Office Visit Rheumatology [address] [facility] [place] [address] Pepe Carter MD [address] [place] [address] Please schedule follow up visit 05/18/24 via phone/virtual or in office visit [facility] AWARE OF LOCATION Rheumatology Comment on above: Please schedule follow up visit 05/18/24 via phone/virtual or in office visit [facility] LOCATION Start: 10-02-2023 Behavioral Health Screening Behavioral Health Screening [facility] Start: 10-02-2023 Depression Assessment Depression Assessment [facility] Start: 08-28-2023 End: 05-28-2024 25-hydroxyvitamin D3 [Mass/volume] in Serum or Plasma VITAMIN D 25 HYDROXY Lab Routine Vitamin D deficiency Expected: 08/28/2023 (Approximate), Expires: 05/28/2024 [facility] Work Phone: Comment on above: Expected: 08/28/2023 (Approximate), Expi res: 05/28/2024 Start: 08-28-2023 End: 05-28-2024 BLOOD TB SCREEN BLOOD TB SCREEN Lab Routine Screening-pulmonary TB Expected: 08/28/2023 (Approximate), Expires: 05/28/2024 [facility] Work Phone: Comment on above: Expected: 08/28/2023 (Approximate), Expi res: 05/28/2024 Start: 08-28-2023 End: 05-28-2024 C reactive protein [Mass/volume] in Serum or Plasma C-REACTIVE PROTEIN (CRP) Lab Routine Elevated sed rate Elevated C-reactive protein (CRP) Expected: 08/28/2023 (Approximate), Expires: 05/28/2024 [facility] Work Phone: Comment on above: Expected: 08/28/2023 (Approximate), Expi res: 05/28/2024 Start: 08-28-2023 End: 05-28-2024 CBC panel - Blood by Automated count CBC Lab Routine Anemia of chronic disease Expected: 08/28/2023 (Approximate), Expires: 05/28/2024 [facility] Work Phone: Comment on above: Expected: 08/28/2023 (Approximate), Expi res: 05/28/2024 Start: 08-28-2023 End: 05-28-2024 Cobalamin (Vitamin B12) [Mass/volume] in Serum or Plasma VITAMIN B12 BLOOD Lab Routine Vitamin B12 deficiency Expected: 08/28/2023 (Approximate), Expires: 05/28/2024 [facility] Work Phone: Comment on above: Expected: 08/28/2023 (Approximate), Expi res: 05/28/2024 Start: 08-28-2023 End: 05-28-2024 Comprehensive metabolic 2000 panel - Serum or Plasma COMP METABOLIC PANEL Lab Routine Elevated LFTs Expected: 08/28/2023 (Approximate), Expires: 05/28/2024 [facility] Work Phone: Comment on above: Expected: 08/28/2023 (Approximate), Expi res: 05/28/2024 Start: 08-28-2023 End: 05-28-2024 Erythrocyte sedimentation rate SED RATE WESTERGREN Lab Routine Elevated sed rate Elevated C-reactive protein (CRP) Expected: 08/28/2023 (Approximate), Expires: 05/28/2024 [facility] Work Phone: Comment on above: Expected: 08/28/2023 (Approximate), Expi res: 05/28/2024 Start: 08-11-2023 BP CONTROLLED (<130/80) BP CONTROLLED (<130/80) [facility] Start: 06-02-2023 Influenza vaccination [facility] Start: 10-31-2022 End: 07-31-2023 25-hydroxyvitamin D3 [Mass/volume] in Serum or Plasma VITAMIN D 25 HYDROXY Lab Routine Vitamin D deficiency Expected: 10/31/2022 (Approximate), Expires: 07/31/2023 [facility] Work Phone: Comment on above: Expected: 10/31/2022 (Approximate), Expi res: 07/31/2023 Start: 10-31-2022 End: 07-31-2023 C reactive protein [Mass/volume] in Serum or Plasma C-REACTIVE PROTEIN (CRP) Lab Routine Elevated sed rate Elevated C-reactive protein (CRP) Expected: 10/31/2022 (Approximate), Expires: 07/31/2023 [facility] Work Phone: Comment on above: Expected: 10/31/2022 (Approximate), Expi res: 07/31/2023 Start: 10-31-2022 End: 07-31-2023 CBC panel - Blood by Automated count CBC Lab Routine Anemia of chronic disease Expected: 10/31/2022 (Approximate), Expires: 07/31/2023 [facility] Work Phone: Comment on above: Expected: 10/31/2022 (Approximate), Expi res: 07/31/2023 Start: 10-31-2022 End: 07-31-2023 Comprehensive metabolic 2000 panel - Serum or Plasma COMP METABOLIC PANEL Lab Routine Elevated LFTs Expected: 10/31/2022 (Approximate), Expires: 07/31/2023 [facility] Work Phone: Comment on above: Expected: 10/31/2022 (Approximate), Expi res: 07/31/2023 Start: 10-31-2022 End: 07-31-2023 Erythrocyte sedimentation rate SED RATE WESTERGREN Lab Routine Elevated sed rate Elevated C-reactive protein (CRP) Expected: 10/31/2022 (Approximate), Expires: 07/31/2023 [facility] Work Phone: Comment on above: Expected: 10/31/2022 (Approximate), Expi res: 07/31/2023 Start: 10-02-2022 DEPRESSION ASSESSMENT DEPRESSION ASSESSMENT [facility] Start: 06-02-2022 Influenza vaccination INFLUENZA (#1) [facility] Start: 04-20-2022 Adult depression screening assessment DEPRESSION SCREENING [facility] Start: 03-31-2022 End: 12-29-2022 C reactive protein [Mass/volume] in Serum or Plasma C-REACTIVE PROTEIN (CRP) Lab Routine Elevated sed rate Elevated C-reactive protein (CRP) Expected: 03/31/2022 (Approximate), Expires: 12/29/2022 [facility] Work Phone: Comment on above: Expected: 03/31/2022 (Approximate), Expi res: 12/29/2022 Start: 03-31-2022 End: 12-29-2022 CBC panel - Blood by Automated count CBC Lab Routine Anemia of chronic disease Expected: 03/31/2022 (Approximate), Expires: 12/29/2022 [facility] Work Phone: Comment on above: Expected: 03/31/2022 (Approximate), Expi res: 12/29/2022 Start: 03-31-2022 End: 12-29-2022 Comprehensive metabolic 2000 panel - Serum or Plasma COMP METABOLIC PANEL Lab Routine Elevated LFTs Expected: 03/31/2022 (Approximate), Expires: 12/29/2022 [facility] Work Phone: Comment on above: Expected: 03/31/2022 (Approximate), Expi res: 12/29/2022 Start: 03-31-2022 End: 12-29-2022 Erythrocyte sedimentation rate SED RATE WESTERGREN Lab Routine Elevated sed rate Elevated C-reactive protein (CRP) Expected: 03/31/2022 (Approximate), Expires: 12/29/2022 [facility] Work Phone: Comment on above: Expected: 03/31/2022 (Approximate), Expi res: 12/29/2022 Start: 03-31-2022 End: 12-29-2022 VITAMIN D 25 HYDROXY VITAMIN D 25 HYDROXY Lab Routine Vitamin D deficiency Expected: 03/31/2022 (Approximate), Expires: 12/29/2022 [facility] Work Phone: Comment on above: Expected: 03/31/2022 (Approximate), Expi res: 12/29/2022 Start: 10-02-2021 DEPRESSION ASSESSMENT DEPRESSION ASSESSMENT [facility] Start: 08-19-2021 COVID-19 VACCINE (3 - Pfizer risk 4-dose series) COVID-19 VACCINE (3 - Pfizer risk 4-dose series) [facility] Start: 08-19-2021 COVID-19 VACCINE (3 - Pfizer risk series) COVID-19 VACCINE (3 - Pfizer risk series) [facility] Start: 06-02-2021 Influenza vaccination INFLUENZA (#1) [facility] Start: 06-02-2020 Influenza vaccination given Sequential Influenza Vaccine (#1) [facility] Start: 10-15-2019 End: 10-15-2019 Office Visit 10/15/2019 Office Visit [facility] Start: 09-04-2019 End: 09-04-2019 Hospital Encounter [facility] Comment on above: LEFT TOTAL ELBOW ARTHROPLASTY WITH ULNAR NERVE RELEASE WITH ANTERIOR TRANSPOSITION, EXCISION RADIAL HEAD Start: 07-20-2019 ANNUAL PCP TEAM CHRONIC DISEASE VISIT ANNUAL PCP TEAM CHRONIC DISEASE VISIT [facility] Start: 06-02-2019 Influenza vaccination given [facility] Start: 2019 RSV Vaccine (1 - 1-dose 60+ series) RSV Vaccine (1 - 1-dose 60+ series) [facility] Start: 2019 RSV Vaccine (1 - Risk 60-74 years 1-dose series) RSV Vaccine (1 - Risk 60-74 years 1-dose series) [facility] Start: 04-30-2019 End: 04-30-2019 Office Visit 04/30/2019 Office Visit [facility] Start: 02-27-2019 End: 02-27-2019 Hospital Encounter [facility] Per[facility] Comment on above: RIGHT TOTAL ELBOW ARTHROPLASTY, ULNAR NE RVE RELEASE WITH ANTERIOR TRANSPOSITION, RADIAL HEAD EXCISION Start: 02-21-2019 End: 02-21-2020 XR Cervical Spine with Flexion and Extension 6+ Views XR Cervical Spine with Flexion and Extension 6+ Views Imaging Routine Pre-op exam Expected: 02/21/2019, Expires: 02/21/2020 [facility] Comment on above: Expected: 02/21/2019, Expires: 0 Start: 2009 Administration of herpes zoster vaccine Zoster Vaccines (1 of 2) [facility] Start: 2009 Screening for malignant neoplasm of colon [facility] Start: 2009 SHINGRIX VACCINE (1 of 2) SHINGRIX VACCINE (1 of 2) [facility] Start: 2004 COLOGUARD (FIT-DNA) COLOGUARD (FIT-DNA) [facility] Start: 2004 Colonoscopy COLONOSCOPY [facility] Start: 2004 COLORECTAL CANCER SCREENING COLORECTAL CANCER SCREENING [facility] Start: [address] COLONOGRAPHY [facility] Start: 2004 FECAL OCCULT BLOOD FECAL OCCULT BLOOD [facility] Start: 2004 Screening for malignant neoplasm of colon [facility] Start: 2004 SIGMOIDOSCOPY SIGMOIDOSCOPY [facility] Start: 1999 Mammography [facility] Start: 1999 Screening for malignant neoplasm of breast [facility] Start: 1989 HPV TESTING HPV TESTING [facility] Start: 1989 Screening for malignant neoplasm of cervix [facility] Start: 1980 PAP TESTING PAP TESTING [facility] Start: 1980 Screening for malignant neoplasm of cervix [facility] Start: 1978 Pneumococcal Vaccine: 50+ (1 of 2 - PCV) Pneumococcal Vaccine: 50+ (1 of 2 - PCV) [facility] Start: 1978 SHINGRIX VACCINE (1 of 2) SHINGRIX VACCINE (1 of 2) [facility] Start: 1978 Urine microalbumin profile [facility] Start: 1977 Annual PCP Team Chronic Disease Visit Annual PCP Team Chronic Disease Visit [facility] Start: 1977 Anxiety Screening Anxiety Screening [facility] Start: 1977 BP CONTROLLED (<130/80) BP CONTROLLED (<130/80) [facility] Start: 1977 Depression Screening Depression Screening [facility] Start: 1977 Hepatitis B surface antibody level LDL CHOLESTEROL [facility] Start: 1977 Hepatitis C antibody, confirmatory test Hepatitis C Screening [facility] Start: 1977 HIV SCREENING HIV SCREENING [facility] Start: 1977 HIV screening HIV Screening [facility] Start: 1977 SPIROMETRY SPIROMETRY [facility] Start: 1975 COVID-19 Vaccine (1 of 2) COVID-19 Vaccine (1 of 2) [facility] Start: 1975 ONE PNEUMOVAX PRIOR TO AGE 65 ONE PNEUMOVAX PRIOR TO AGE 65 [facility] Start: 1974 HIV screening HIV Screening [facility] Start: 1971 Adolescent depression screening assessment Depression Screening (PHQ9) [facility] Start: 1970 Screening for malignant neoplasm of cervix Cervical Cancer Screening [facility] Start: 1969 3 comp foot exam completed DIABETIC FOOT EXAM [facility] Start: 1969 Albumin DL <= 20 mg/L mass conc (U) URINE MICROALBUMIN [facility] Start: 1969 Diabetic foot examination [facility] Start: 1969 Glaucoma screening Dilated Retinal Exam [facility] Start: 1969 Hepatitis B screening URINE ALBUMIN:CREATININE RATIO [facility] Start: 1969 Hepatitis C antibody, confirmatory test DILATED RETINAL EXAM [facility] Start: 1969 Ophthalmic examination and evaluation Ophthalmology Exam [facility] Start: 1965 PNEUMOCOCCAL (1 - PCV) PNEUMOCOCCAL (1 - PCV) [facility] Start: 1965 Pneumococcal vaccination [facility] Start: 1965 Pneumococcal Vaccine: 65+ (1 of 2 - PCV) Pneumococcal Vaccine: 65+ (1 of 2 - PCV) [facility] Start: 1964 Hemoglobin A1c measurement HbA1C [facility] Start: 1964 Hemoglobin A1c/Hemoglobin.total in Blood HBA1C [facility] Start: 1962 History and physical examination, annual for health maintenance Wellness Visit [facility] Start: 1959 Hemoglobin A1c/Hemoglobin.total mass fraction (Bld) A1C [facility] Start: 1959 Hepatitis C antibody, confirmatory test HEPATITIS C SCREENING [facility] Start: 1959 Protein mass conc Mammogram [facility] Start: 1959 Screening for malignant neoplasm of cervix PAP SMEAR [facility] Start: 1959 Screening for malignant neoplasm of colon [facility] Start: 1959 Screening mammography Mammogram [facility] Start: 1959 Tetanus vaccination [facility] 12 lead ECG [facility] Comment on above: Ordered: 02/20/2019 Ordered: 08/26/2019 Anaerobic microbial culture Tissue Anaerobic Culture Microbiology Routine Skin ulcer of elbow with fat layer exposed (HCC) 10/08/2019 11:20 AM EST [facility] End: 06-17-2025 BD DXA TRABECULAR BONE SCORE (TBS) BD DXA TRABECULAR BONE SCORE (TBS) Radiology Routine Postmenopausal osteoporosis of multiple sites 1 Occurrences starting 05/18/2024 until 06/17/2025 [facility] Comment on above: 1 Occurrences starting 05/18/2024 until 06/17/2025 End: 06-17-2025 DXA Skeletal system.axial Views for bone density DXA-AXIAL SKELETON Radiology Routine Postmenopausal osteoporosis of multiple sites 1 Occurrences starting 05/18/2024 until 06/17/2025 [facility] Comment on above: 1 Occurrences starting 05/18/2024 until 06/17/2025 End: 06-17-2025 DXA-FOREARM SKELETON DXA-FOREARM SKELETON Radiology Routine Postmenopausal osteoporosis of multiple sites 1 Occurrences starting 05/18/2024 until 06/17/2025 [facility] Work Phone: Comment on above: 1 Occurrences starting 05/18/2024 until 06/17/2025 Tissue culture Tissue Aerobic C ulture Microbiology Routine Skin ulcer of elbow with fat layer exposed (HCC) 10/08/2019 11:20 AM EST [facility] XR Cervical Spine wi th Flexion and Extension 6+ Views XR Cervical Spine with Flexion and Extension 6+ Views Imaging Routine Pre-op exam 02/21/2019 1:43 PM EDT [facility] End: 06-17-2024 XR Hand - bilateral PA and Lateral and Oblique XR HAND GENERAL 3V PA/LAT/OBL BILATERAL Radiology Routine Trigger middle finger of right hand Bilateral hand pain 1 Occurrences starting 05/18/2024 until 06/17/2024 [facility] Comment on above: 1 Occurrences starting 05/18/2024 until 06/17/2024 XR Hand - bilateral PA and Lateral and Oblique XR HAND GENERAL 3V PA/LAT/OBL BILATERAL Radiology Routine Trigger middle finger of right hand Bilateral hand pain 06/06/2024 9:32 AM EDT [facility] Work Phone: [facility] Immunizations Immunization Date Immunization Notes Care Provider Talon [email or web address] 06-17-2024 tetanus toxoid, redu blaise diphtheria toxoid, and acellular pertussis vaccine, adsorbed Liubrittni Cobb [facility] 05-30-2020 influenza, injectabl e, quadrivalent, preservative free Pepe Carter MD Work Phone: [facility] 05-30-2020 influenza virus vacc ine, unspecified formulation Pepe Carter MD Work Phone: [facility] 09-03-2018 Influenza, injectabl e, Madin Felicitas Canine Kidney, preservative free, quadrivalent Pepe Carter MD Work Phone: [facility] Payers Date Payer Category Payer Medicare (Managed Care) [facility] [id number] 2021 Medicare HUMANA MEDICARE HUMANA GOLD PLUS [id number] 2021- [phone] [address] [address] [place] [address] O [id number] 2021 Medicare [id number] 2018 Unknown ANTHEM ANTHEM BLUE/PREF/HMO/PPO [id number] 2018- [id number]. [id number] 2018 Unknown [id number] 2018 Unknown [id number] 2018 Unknown ANTHEM ANTHEM BLUE/PREF/HMO/PPO [id number] 2018- [id number]. [id number] 1959 Medicare [id number] 1959 Unknown [id number] 2.16.840.1.230984.3.579.2. 902 1959 Unknown [id number] 2.16.840.1.252450.3.579.2. 90 1959 Unknown [id number] 2.16.840.1.776670.3.579.2. 903 1959 Unknown [id number] 2.16.840.1.388497.3.579.2. 902 1959 Unknown [id number] 2.16.840.1.248068.3.579.2. 902 1959 Unknown [id number] 2.16.840.1.368236.3.579.2. 902 1959 Unknown [id number] 2.16.840.1.480296.3.579.2. 902 1959 Unknown [id number] 2.16.840.1.208774.3.579.2. 902 1959 Unknown [id number] 2.16.840.1.202341.3.579.2. 900 1959 Unknown [id number] 2.840.1.950297.3.579.2. 593 1959 Unknown [id number] 2.840.1.810431.3.579.2. 593 1959 Unknown [id number] 2.16840.1.304984.3.579.2. 593 1959 Unknown [id number] 2.840.1.916189.3.579.2. 593 1959 Unknown [id number] 2.840.1.290526.3.579.2. 593 1959 Unknown [id number] 2.16840.1.209859.3.579.2. 593 1959 Unknown [id number] 2.16.840.1.006848.3.579.2. 593 1959 Unknown [id number] 2.16.840.1.830039.3.579.2. 593 1959 Unknown [id number] 2.16840.1.659611.3.579.2. 593 1959 Unknown [id number] 2.16.840.1.326424.3.579.2. 125 1959 Unknown [id number] 2.16.840.1.076530.3.579.2. 1258 1959 Unknown [id number] 2.16.840.1.479201.3.579.2. 125 1959 Unknown [id number] 2.16.840.1.731430.3.579.2. 125 1959 Unknown [id number] 2.16.840.1.333326.3.579.2. 1258 1959 Unknown [id number] 2.16.840.1.001885.3.579.2. 1258 1959 Unknown [id number] 2.16.840.1.757179.3.579.2. 1258 1959 Unknown [id number] 2.16.840.1.950835.3.579.2. 1258 1959 Unknown [id number] 2.16.840.1.272310.3.579.2. 1258 1959 Unknown [id number] 2.16.840.1.103618.3.579.2. 1258 1959 Unknown [id number] 2.16.840.1.019299.3.579.2. 1258 1959 Unknown [id number] 2.16.840.1.509949.3.579.2. 1258 1959 Unknown [id number] 2.16.840.1.218210.3.579.2. 1258 1959 Unknown [id number] 2.16.840.1.382690.3.579.2. 1258 1959 Unknown [id number] 2.16.840.1.685631.3.579.2. 1258 1959 Unknown [id number] 2.16.840.1.611363.3.579.2. 1258 1959 Unknown [id number] 2.16.840.1.486024.3.579.2. 9 1959 Unknown [id number] 2.16.840.1.014321.3.579.2. 1259 1959 Unknown [id number] 2.16.840.1.127338.3.579.2. 9 1959 Unknown [id number] 2.16.840.1.342704.3.579.2. 1259 1959 Unknown [id number] 2.16.840.1.564466.3.579.2. 1258 1959 Unknown [id number] 2.16.840.1.602147.3.579.2. 9 1959 Unknown [id number] 2.16.840.1.888211.3.579.2. 1258 1959 Unknown [id number] 2.16.840.1.240270.3.579.2. 1259 Social History Date Type Detail Facility Start: 02-21-2019 End: 08-11-2022 Tobacco smoking status NHIS Never smoker [facility] Work Phone: Start: 02-21-2019 History SDOH Alcohol Frequency 1 [facility] Start: 1960 Sex Assigned At Not on file O [facility] Start: 08-28-2019 End: 09-05-2019 Alcohol intake Lifetime non-drinker (finding) [facility] Start: 12-18-2021 End: 08-11-2022 Exposure to SARS-CoV-2 (event) Not sure [facility] Start: 04-09-2020 End: 08-11-2022 Tobacco use and exposure Never used [facility] Start: 07-26-2021 End: 11-23-2023 Alcohol intake Current non-drinker of alcohol (finding) [facility] [facility] [place] Start: 1960 Sex Assigned At Female C [facility] Start: 12-20-2021 End: 12-30-2021 Exposure to SARS-CoV-2 (event) Unable to assess [facility] [place] Start: 07-26-2021 End: 02-20-2023 History of Social function [facility] [place] Start: 07-26-2021 End: 02-20-2023 Tobacco use panel [facility] [place] Adult Depression Screening Assessment 3 [facility] [place] Start: 01-06-2021 Gender identity Identifies as female gender (finding) [facility] [place] Start: 01-06-2021 Sexual orientation Heterosexual (fin danielle) [facility] [place] Tobacco smoking status NHIS Tobacco smoking consumption unknown [facility] NEGATED: Highlighted rowStart: NINF History of tobacco use Passive smoker [facility] [place] Medical Equipment Procedure Code Equipment Code Equipment Origin al Text Equipment Identifier Dates Cement Bone Anti biotic Simplex P W/Tobramycin Single Dose - [id number] Start: 02-27-2019 Cement Bone Anti biotic Simplex P W/Tobramycin Single Dose - [id number] Start: 02-27-2019 Plug 10mm Cement Sm Diameter - [id number] FDA Start: 02-27-2019 Component 3in Ul na Plasma Xsm Rt C/M - [id number], [id number] FDA Start: 02-27-2019 Component 4in Hu meral Xsm C/M - [id number] , [id number] FDA Start: 02-27-2019 Cement Bone Anti biotic Simplex P W/Tobramycin Single Dose - [id number] Start: 09-04-2019 Plug 8mm Cement Sm Diameter - [id number] Start: 09-04-2019 Plug 8-10mm Sm I m Canal - [id number] Start: 09-04-2019 Alicia/Pillo To charis Elbow Interchangeable Humeral Assembly Extra Small 4 Inch Length [id number] Start: 09-04-2019 Cokevon/Pillo T otal Elbow Interchangeable Ulnar Assembly Extrasmall Left 3 Inch [id number] Start: 09-04-2019 Plug 8-10mm Sm I m Canal - [id number] Start: 09-04-2019 [id number] Start: 11-18-2016 End: 08-11-2022 Comment on above: Substitute equivalent syringe/needles fo r weekly sq methotrexate To use with Methotre xate Sodium injection. 1ml weekly SQ Clinical Notes 12-29-2021 to 09-23-2024 Telephone Encounter - Fransico Joseph MA - 09/23/2024 7:55 AM ESTTelephone Encounter - Fransico Joseph MA - 09/23/2024 7:55 AM ESTTelephone Encounter - Pepe Carter MD - 09/22/2024 12:24 AM EST Note Date & Type Note Facility 09-23-2024 Telephone encounter Note patient has viewed the [facility] message per [facility]. [facility] [place] 09-23-2024 Miscellaneous Notes patient has viewed the [facility] message per [place]. Please Call patient if MyChart note not read to review results/released to My Chart if tests completed at F: Mildly high normal glucose- will monitor with primary care provider/endocrinology. Normal rest of labs and no inflammation. Continue same vitamin D intake with food. Recheck nonfasting labs in 3months.The orders have been placed. Happy to further review and discuss at follow up visit. Thank you. 09/20/24 high glucose 159;normal rest of cmp, cbc, esr 17, crp<0.3, vitamin D 53.7; documented in this encounter [facility] [place] 09-22-2024 Telephone encounter Note Please Call patient if MyChart note not read to review results/released to My Chart if tests completed at [facility]: Mildly high normal glucose- will monitor with primary care provider/endocrinology. Normal rest of labs and no inflammation. Continue same vitamin D intake with food. Recheck nonfasting labs in 3months.The orders have been placed. Happy to further review and discuss at follow up visit. Thank you. 09/20/24 high glucose 159;normal rest of cmp, cbc, esr 17, crp<0.3, vitamin D 53.7; [facility] [place] 09-20-2024 Instructions Pepe Carter MD - 09/20/2024 12:38 PM EST May apply over the counter arthritis cream (biofreeze, icy hot, asper cream, tiger balm, capsacin, etc.) to painful joints up to four times a day. Avoid contact with eyes. May take ES acetaminophen 500mg every 4-6hours for joint pain. Do not exceed 2000mg /day. If needed, may take calcium with food as instructed Take vitamin D script with food. Start fosamax/alendronate Bisphosphonate instructions: Take one tablet once a week, on an empty stomach before breakfast with a full glass of water. Do not drink or eat for at least 45 minutes after taking this medicine. Do not lie down for at least 1 hour after taking this medicine. This prevents irritation to the esophagus (swallowing tube). No response lyrica OFF Hydroxychloroquine/Plaquenil/humi ra/xeljanz Methotrexate [...] motrin, etc.)on pred. eyedrops as instructed gabapentin/neurontin as instructed see hand ortho for trigger finger injection/release/hand/wrist/elbo w pain nonfasting bloodwork as scheduled Thank you. Latest Ref Rng 05/14/2024 Protein, Total 6.3 - 8.0 g/dL 7.7 Albumin 3.9 - 4.9 g/dL 4.1 Calcium 8.5 - 10.2 mg/dL 9.7 Bilirubin, Total 0.2 - 1.3 mg/dL 0.3 Alkaline Phosphatase 34 - 123 U/L 85 AST 13 - 35 U/L 27 ALT 7 - 38 U/L 33 Glucose 74 - 99 mg/dL 237 (H) BUN 7 - 21 mg/dL 19 Creatinine 0.58 - 0.96 mg/dL 0.74 Sodium 136 - 144 mmol/L 139 Potassium 3.7 - 5.1 mmol/L 3.6 (L) Chloride 98 - 107 mmol/L 98 CO2 22 - 30 mmol/L 31 (H) Anion Gap 8 - 15 mmol/L 10 eGFR >=60 mL/min/1.73m 90 WBC 3.70 - 11.00 k/uL 7.63 RBC 3.90 - 5.20 m/uL 4.60 Hemoglobin 11.5 - 15.5 g/dL 13.6 Hematocrit 36.0 - 46.0 % 39.1 MCV 80.0 - 100.0 fL 85.0 MCH 26.0 - 34.0 pg 29.6 MCHC 30.5 - 36.0 g/dL 34.8 RDW-CV 11.5 - 15.0 % 12.5 Platelet Count 150 - 400 k/uL 319 MPV 9.0 - 12.7 fL 10.0 Absolute nRBC <0.01 k/uL <0.01 WSR 0 - 20 mm/hr 37 (H) CRP <0.9 mg/dL 0.6 Vitamin D 25 Hydroxy 31.0 - 80.0 ng/mL 30.0 (L) Moisturizing treatments Stimulating saliva -- Simply sucking on sugarless candy or dried fruit slices (eg, peaches or nectarines) can stimulate the flow of saliva in many patients. Edgar flavored sugarless tablets and sugar-free chewing gum [...] called punctal occlusion. In this procedure, an head still operator inserts small plugs into the tear ducts [...] Website at [email or web address].org. documented in this encounter [facility] [place] 09-20-2024 Note HNO ID: [id number] Author: PEPE CARTER MD Service: ? Author Type: Physician Type: Progress Notes Filed: 09/20/2024 16:41 Note Text: Face to face Follow up for rheumatoid arthritis/ degenerative joint disease/joint pain/ osteopenia Today's visit 09/20/24: Taking rinvoq daily (only every other day if hoarse voice), neurontin, vitamin D script, methotrexate 10tabs weekly, synthroid. NO recent oral steroids. NO eye flares. Yes dryness. 06/06/24 hand xrays-Imaging features of inflammatory arthritis with severe radiocarpal, [...] metacarpal heads similar to the previous exam. 07/2024 Went to get the mail, and tripped R hip fracture treated with jose juan/screws Limps, weaker since R hip fracture, using cane. 70-100% improvement from rinvoq. In PT for exercise. R 2nd DIP swelling. Chronic current pain in R hip/buttocks, hands, R 2nd DIP, R jaw no change with mouth guard. Finger pain better asper cream. R wrist brace helps. Has elbow/less shoulder/back pain.Reports pain 3-8/10. Has 1-2hr AM stiffness. Feels safe at home. Has enough food, supplies and medications. Overall mildly uncomfortable but happy with rheum care. No falls/fx/trauma/illness/oral sores/rash/hairloss/jaw pain/dysphagia/epistaxis/hemoptys is since last visit. No adverse effects with meds. No other complaints. Patient denies fever, chills, cp, dyspnea, nausea, vomiting, night sweats, scalp tenderness, visual changes, abbott, bowel/bladder changes, weight changes or other complaints. Last visit 06/06/24 hand xrays-Imaging features of inflammatory arthritis with severe radiocarpal, [...] metacarpal heads similar to the previous exam. 05/18/24:due for labs in 3months. taking gabapentin [...] 15, crp 0.7, vitamin D 34.8, vitamin b40-1151;negative quantiferon tb; Patient's request for medication is [...] eval, much improved with rinvoq daily/received by [facility], continue sq 1ml once every other week injections methotrexate (HOLD 1-2weeks after vaccines), ssz 500mg 3times a day, daily arava, improved with xeljanz OFF due to cost, see ortho s/p R TKR, f/u hand ortho for arm/elbow/wrist care and for trigger finger injection if needed again, neurontin 300mg 3times a day and increase if necessary, no lyrica (no response), improved with humira but (more content not included)... [facility] 09-20-2024 History of Present illness Narrative Face to face Follow up for rheumatoid arthritis/ degenerative joint disease/joint pain/ osteopenia Today's visit 09/20/24: Taking rinvoq daily (only every other day if hoarse voice), neurontin, vitamin D script, methotrexate 10tabs weekly, synthroid. NO recent oral steroids. NO eye flares. Yes dryness. 06/06/24 hand xrays-Imaging features of inflammatory arthritis with severe radiocarpal, [...] metacarpal heads similar to the previous exam. 07/2024 Went to get the mail, and tripped R hip fracture treated with jose juan/screws Limps, weaker since R hip fracture, using cane. 70-100% improvement from rinvoq. In PT for exercise. R 2nd DIP swelling. Chronic current pain in R hip/buttocks, hands, R 2nd DIP, R jaw no change with mouth guard. Finger pain better asper cream. R wrist brace helps. Has elbow/less shoulder/back pain.Reports pain 3-05/11. Has 1-2hr AM stiffness. Feels safe at home. Has enough food, supplies and medications. Overall mildly uncomfortable but happy with rheum care. No falls/fx/trauma/illness/oral sores/rash/hairloss/jaw pain/dysphagia/epistaxis/hemoptys is since last visit. No adverse effects with meds. No other complaints. Patient denies fever, chills, cp, dyspnea, nausea, vomiting, night sweats, scalp tenderness, visual changes, abbott, bowel/bladder changes, weight changes or other complaints. Last visit 06/06/24 hand xrays-Imaging features of inflammatory arthritis with severe radiocarpal, [...] metacarpal heads similar to the previous exam. 05/18/24:due for labs in 3months. 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 Reports pain 10. Has minimal AM stiffness. Feels safe at [...] asthma, much improved with rinvoq daily/received by [facility], continue sq 1ml once every other week injections methotrexate (HOLD 1-2weeks after vaccines), ssz 500mg 3times a day, daily arava, OFF plaquenil, prozac and f/u with PCP for adjustment, nightly and prn wrist splints, PT exercises for contractures, eyedrops per ophthalmology 02/20/23:due for bmd after 11/27/22. [facility] 11/27/20 BMD osteopenia. taking sulfasalazine [...] over, shoulders, back, R hip/restricted. Reports pain /10. Has minimal AM stiffness. Numbness of left [...] BMD stable, improved with prednisone/take for flares morgna, follow up with UE/hand ortho/postponing R shoulder/wrist [...] worsens asthma, rinvoq daily/restart when received by [facility], continue sq 1ml once every other week [...] Several hours minimal AM stiffness. COVID vaccine HALO2CLOUD 07/01/21, 07/22/21. 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 3rd grandchild (boy) [...] upper back, due to see surgery. Had [employer] vaccines 07/01/21, 07/22/21. wants to return to [...] for possible surgery eval. Had BMD in [facility], no response. Saw pain clinic [...] Almanzar is admitting pt to hospital in [place] to debride wound she has on her [...] week. Tolerating daily arava/ssz. Still has R / numbness, ortho will improve 1year after elbow [...] pain. 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 [place] better on xeljanz and did not have [...] throat. Hoarse voice. Around ill patients at [facility]. Declined tablet survey. Tired. Feeling better since [...] buttocks, right arm/bicep whole body flare . [place] great when taking xeljanz XR for two [...] with prozac (started nexium). 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 05/14/24 high glucose 237, esr 37;low vitamin [...] 15, crp 0.7, vitamin D 34.8, vitamin u42-9519;negative quantiferon tb; Patient's request for medication is as follows: 05/24/23 low potassium 3.4;high esr 35, crp 0.9;normal rest of cbc, cmp, vitamin D 41.5, vitamin l71-4172; 02/16/23 high glucose 260(328), esr 27 (60);normal rest of cmp, cbc, crp<0.3, (3), vitamin D 42.3; 07/29/22 high esr 60 (30), crp 3 (0.7), glucose 328;normal rest of cmp, cbc, vitamin D 36.8; 12/28/21 low potassium 3.3;high esr 30 (44), glucose 339 (480);NL rest of cbc, cmp, vitamin x19-3981, vitamin D 31.5;negative quantiferon tb, hepatitis panel [...] of cmp, cbc, vitamin D 43.5, vitamin j74-0400;negative quantiferon tb; [facility] 11/27/20 BMD osteopenia L1/L3/L4 1.102 g/cm2, tscore-More than half of todays over 40 minute [id number] office visit was spent in counselling/coordination of care, zscore2;L fem neck 0.808g/cm2, tscreo-0.4, zscore1;Total L hip 0.946g/cm2, tscore 0, zscore1.1;R fem neck 0.662g/cm2, tscore-1.7, zscore-0.3, Total R hip 0.781g/cm2, tscore-1, zscore0.3;L foreamr 0.505g/cm2, tscore-1.2, zscore0.3; FRAX major osteoporotic fracture risk 11%;hip fracture risk 1.2%; [facility] 11/27/20 lumbar xrays-mild osteopenia. Significant [...] in diameter. A joint effusion is present [facility] 09/21/15 GI study- unremarkable air contrast upper GI exam [facility] 09/21/15 abdominal ultasound/echo= degree of hepatic [...] ck 51, aldolase 4.9, vit D 32.9, h17-1191; 01/21/12 NL cbc, creat 0.54, crp 0.4, [...] lb 1.6 oz (67.6kg) SpO2 97% BP 135/92 Pulse 68 Wt 66.1 kg (145 lb 11.6 oz) BMI 25.00 kg/m Gen; A&Ox3, NAD, very pleasant, better spirits, good mood, less uncomfortable, speaks in full sentences without distress GAIT: ambulates better/less favoring RLE due to R foot/buttock/RLE pain, with assistance/using cane HEENT: NC/AT, +mmm, no lad/jvd/thyromegaly/sores/exudate s/thrush, EOMI/PERRL, no conjunctival injection/scleral icterus, thin hair, no alopecia, normal/nontender temporal arteries, normal nares, Yes glasses, fair dentition, hoarse voice, coughing during exam CV; +s1, s2, RRR, no murmurs Lungs: CTAB ABD: +bs, soft, ntnd, no hsm Ext: No pedal edema, no cyanosis/clubbing Hands: stable nodule on L thumb/2nd DIP, daylin nodes, R 4th finger bent and [...] palpation, no synovitis, no swelling/warmth/erythema, from Hips: s/p R hip surgery/plate/screws after fracture, thighs diffusely sore, fair range of motion, R>L tender to palpation with from Back: right side of neck, s/p lumbar surgery, R lumbar tender to palpation, from CN-II-XII grossly intact, normal pulses/reflexes Strength 5/5, tone normal Skin-no rash;healed shingles on R buttocks and R back of leg Nails-no pitting Trigger points 08/19 IMPRESSION/DIAGNOSIS:09/20/24 M05.79 Rheumatoid arthritis of multiple sites without organ or system involvement with positive rheumatoid factor (HCC) (primary encounter diagnosis) M81.0 Postmenopausal osteoporosis of multiple sites Z87.311 Personal history of (healed) other pathological fracture H04.123 Dry eye syndrome of both eyes M15.3 Secondary osteoarthritis of multiple sites Z79.899 Long-term use of high-risk medication M79.641, M79.642 Bilateral hand pain M25.521, G89.29 Chronic elbow pain, right M25.60 Joint stiffness of multiple sites M54.41, G89.29 Chronic bilateral low back pain with right-sided sciatica E55.9 Vitamin D deficiency M25.511, G89.29, M25.512 Chronic pain of both shoulders R70.0 Elevated sed rate M65.949 Synovitis of hand M25.521, M25.522 Bilateral elbow joint pain R26.9 Abnormality of gait M79.7 Fibromyalgia R68.84, G89.29 Chronic jaw pain M25.551, G89.29 Chronic hip pain, right 64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 Had BMD in [facility]. saw pulm 11/2021, no rheumatoid arthritis associated ILD. Had COVID19 infection in 05/2022 treated with steroids and inhalers. 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 3rd grandchild (boy) 11/2022. [facility] 11/27/20 BMD osteopenia.Numbness of left 4th/5th and right foot, chronic. Saw pain clinic. Seeing endo, hgba1c improved from 12 to 9, goal for <7. Eating healthier diet, tried keto diet. Not a fan of the bread. Had eye exam, right membrane surgery if approve/dfrom high glucose. COVID vaccine 07/01/21, 07/22/21.R eye changes possibly from diabetes on last eye exam, already had both laser treatment. Due for next eye exam 01/2024. Same dryness. Frequent falls, last one 2weeks, coming down the stairs, unsure why. After back surgery RLE drags and R great toe numb Completed OT after elbow surgery Notices dry skin 10/2023 eye exam, stable after cataract surgeries. [...] 15, crp 0.7, vitamin D 34.8, vitamin w25-6157;negative quantiferon tb; Patient's request for medication is as follows: R 3rd finger/R 2nd/3rd MCP/finger swelling. low back, with radiation to RLE.. Taking rinvoq daily (only every other day if hoarse voice), neurontin, vitamin D script, methotrexate 10tabs weekly, synthroid. NO recent oral steroids. NO eye flares. Yes dryness. 06/06/24 hand xrays-Imaging features of inflammatory arthritis with severe radiocarpal, [...] metacarpal heads similar to the previous exam. 07/2024 Went to get the mail, and tripped R hip fracture treated with jose juan/screws Limps, weaker since R hip fracture, using cane. 70-100% improvement from rinvoq. In PT for exercise. R 2nd DIP swelling. Chronic current pain in R hip/buttocks, hands, R 2nd DIP, R jaw no change with mouth guard. Finger pain better asper cream. R wrist brace helps. Has elbow/less shoulder/back pain.Reports pain 3-05/11. Has 1-2hr AM stiffness. Feels safe at home. Has enough food, supplies and medications. Overall mildly uncomfortable but happy with rheum care. Will complete workup for reported symptoms = supportive care, start fall precautions (family getting patient a smart watch), did discuss osteoporosis and all osteoporosis treatment options, patient agreeable to start fosamax/notify office if not tolerated, continue PT/using cane, check tests, see ortho improved with gabapentin/increase 800mg 4per day if approved/needed, improved with rinvoq/hold if ill, see pain clinic for long-term pain recommendations/due for back injections, see neurosurgeon L5-S1 surgery, improved with prednisone/take for flares morgan, follow up with UE/hand ortho/postponing R shoulder/wrist surgeries, 40mg kenalog IM 09/16/15, f/u with GI for GI issues eval, much improved with rinvoq daily/received by [facility], continue sq 1ml once every other week injections methotrexate (HOLD 1-2weeks after vaccines), ssz 500mg 3times a day, daily arava, improved with xeljanz OFF due to cost, f/u hand ortho for arm/elbow/wrist care and [...] 07/26/21, 07/16/18, 03/29/16, 01/22/16 precert xeljanz XR 09/20/24 check cmp, cbc, esr, crp, vitamin D every 3months, Modified09/20/24 BENJAMIN 1, pain 30-80%;05/18/24 BENJAMIN 0, pain 50%;11/23/23 BENJAMIN 0, pain [...] joint pain. Do not exceed 2000mg /day. If needed, Increase calcium intake If needed, Increase potassium intake Start fosamax/alendronate Bisphosphonate instructions: Take one tablet once a week, on an empty stomach before breakfast with a full glass of water. Do not drink or eat for at least 45 minutes after taking this medicine. Do not lie down for at least 1 hour after taking this medicine. This prevents irritation to the esophagus (swallowing tube). No response lyrica OFF Hydroxychloroquine/Plaquenil/humi ra/xeljanz Methotrexate [...] motrin, etc.)on pred. eyedrops as instructed gabapentin/neurontin as instructed see hand ortho for trigger finger injection/release/hand/wrist/elbo [...] of Care,spent more than 50% of the qqkk-io-hqss time in counseling, explanation of diagnosis, and planning of further management, I spent a total of 30 minutes on the date of the service which included preparing to talk with the patient, [id number] patient care, completing clinical documentation, obtaining and/or [...] in the care of your patient. Pepe Cartre MD cc Dr.Dwight Oliver Jc; (ortho); (ID); (ortho);Dr.Douglas Schafer documented in this encounter [facility] [place] 09-10-2024 History of Present illness Narrative Elsa Catalan is a 64 y.o. female Trudy Collins MD presents with chief complaint of Diabetes and Follow-up HPI: Interim History: 09/2024 Follow-up visit on 09/10/2024 for type 2 diabetes, A1c 9.4 , blood sugar 112, Currently on Lantus 55, Humalog 12-15-18 plus scale #2, jardiance 25 mg daily. Interim History: 06/2024 Follow-up visit on 06/07/2024 for type 2 diabetes, A1c 11.3 , blood sugar 188, Currently on Lantus 55, Humalog 12-15-18 plus scale #2, jardiance 25 mg daily. Interim History: 01/2024 Follow-up visit on 02/09/2024 for type 2 diabetes, A1c 9.2 , blood sugar 215, Currently on Lantus 55, Humalog 12-15-18 plus scale #2, jardiance 25 mg daily. Interim History: 10/2023 Follow-up visit on 10/20/2023 for type 2 diabetes, A1c 9.4 , blood sugar 82, Currently on Lantus 55, Humalog 12-15-18 plus scale #2, jardiance 25 mg daily Interim History: 06/2023 Follow-up visit on 06/27/2023 for type 2 diabetes, A1c 10.2 , blood sugar 81 Currently on Lantus 55, Humalog 12-15-18 plus scale #2, jardiance 25 mg daily, on levothyroxine 50 +200= 250 mcg daily. Interim History: 01/2023 Follow-up visit on 02/28/2023 for type 2 diabetes, A1c 8.5 , blood sugar 164. Currently on Lantus 55, Humalog 12-15-18 plus scale #2, jardiance 25 mg daily, on levothyroxine 50 +200= 250 mcg daily. lab on 01/2023 GFR>60, TC 184, HDL 53, TG 175, LDL 96, TSH 0.061, T4 9.6 (4-10), VIT D 45. Interim History: 11/2022 Follow-up visit on 11/25/2022 for type 2 diabetes, A1c 9.3 , blood sugar 73. Currently on Lantus 55, Humalog 12-15-18 plus scale due to cost, on levothyroxine 50 +200= 250 mcg daily. Interim History: 07/2022 Follow-up visit on for type 2 diabetes, A1c 12.8 , blood sugar 92. Currently on Lantus 60, Humalog 12-15-18 plus scale due to cost, on levothyroxine 50 +200= 250 mcg daily, was on steroids for covid on 06/2022 Interim History: 03/2022 Follow-up visit on 03/21/2022 for type 2 diabetes, A1c 8.5 on 03/21/2022 , blood sugar 277. Currently on Lantus 60, Humalog 12-15-18 plus scale but no meter, Jardiance 25 off due to cost, lab showed TSH 1.67, ft4 1.25(0.78-1.48), ft3 2.58(2.18-3.8) on levothyroxine 2 50 +173=123 mcg daily Interim History: 12/2021 Follow-up visit on 01/17/2022 for type 2 diabetes, A1c 10.4 on 12/28/2021 , blood sugar 99. Currently on Lantus 55, Humalog 12-15-18 plus scale but no meter, Jardiance 25 off due to cost, lab showed TSH 115, T4 4.3 (5-11), ON 200 +50 MCG DAILY Interim History: 10/2020 Follow-up visit on 10/26/21 for type 2 diabetes, A1c 12.1, blood sugar 230 . Currently on Lantus 55, Humalog 12-15-18 plus scale but no meter, Jardiance 25 off Interim History: 12/2020 Follow-up visit on 01/12/21 for type 2 diabetes, blood sugar 144. Currently on Lantus 55, Humalog 12-15-18 plus scale but no meter, Jardiance 25. meter 158-483, avg 0.4 avg 260 Interim History: 10/2020 Follow-up visit on 10/07/20 for type 2 diabetes, A1c 10.2, blood sugar 238. She has multiple surgery for her bilateral elbow, left one complicated by infection. Currently on Lantus 50, Humalog 10 to 15 plus scale but no meter, Jardiance 25. Lab done in September: Kidney function within normal limits, blood sugar 305, total cholesterol 285, triglyceride 530 and HDL 35, LDL 111, done by Dr. Neal, and she is currently on levothyroxine 250 and will check lab before next visit. Interim History: 12/2019 Follow-up visit 12/31/19, telemedicine through [employer]. Blood sugar is on the high side since she has bronchitis and she used steroids. She had multiple surgeries to her elbow. Currently she is on Lantus 50 at bedtime and Humalog around 10 to 12 units twice a day mainly plus scale #2, Jardiance 25 mg once a day. Labs done: albumin/creatinine 63, vitamin D 53, C-peptide 1.8 (1.1-1.4), BUN 12, creatinine 0.7, GFR above 60, total cholesterol 214, HDL 47, triglycerides 127 and T4 within normal limits, 6.5 but TSH is uncontrolled, 94. She is taking levothyroxine 200 mcg daily so I told her we need to increase it to 250. She wants me to take care of that so I will add another prescription, 50, to her current dose. For her microalbuminuria, she is already on ARB, Avapro medication. Interim History 09/19: Followup visit on 09/02/2019 for type 2 diabetes. We put CGM for her and interpretation for only one week, 0 in low range, 49 in good range, 51 in high range, average 184, standard deviation 63. She is currently on Lantus 50. She does not use meal insulin, only sliding scale. She missed that part because she put only one page on the refrigerator and missed the other page. She is on Jardiance 25 and plans for left elbow surgery in [place] soon. It is okay from [facility] to do the surgery at this time. HPI: 08/20 New patient to this office. Last time seen by me in the old office in 12/2016. Blood sugar in the office 368, A1c last week 10.7, meter as low as 195, highest 451. Lab done, GFR above 60, total cholesterol 251, triglycerides 87, HDL 36. Kidney function within normal limits. Creatinine 0.1. Currently, she is only doing Lantus 60 at bedtime, off metformin. She has history of rheumatoid arthritis and is following wire coiler. Her TSH also greater than 100, T4 low, so the dose increased from 175 to 200 due to history of hypothyroidism. SUBJECTIVE: MEDICATIONS: Current Outpatient Medications Medication Instructions ADALIMUMAB SC 40 mg albuterol HFA 90 mcg/act inhaler 2 puffs, Every 6 hours PRN cholecalciferol (Vitamin D-3) 50 MCG (1999 UT) capsule 1 capsule, Every morning cloNIDine (CATAPRES) 0.1 mg, 2 times daily empagliflozin (JARDIANCE) 25 mg, Oral, Daily gabapentin (Neurontin) 800 MG tablet Take 4tabs by mouth per day irbesartan (AVAPRO) 150 mg, Every morning Lantus SoloStar 55 Units, Subcutaneous, Nightly leflunomide (Arava) 20 MG tablet 1 tablet, Daily levothyroxine (SYNTHROID, LEVOXYL) 200 mcg, Oral, Daily before breakfast methotrexate 250 MG/10ML injection metoprolol succinate XL (TOPROL-XL) 50 mg, Daily NovoLOG FLEXPEN 20 Units, Subcutaneous, 3 times daily before meals simvastatin (Zocor) 20 MG tablet 1 tablet, Nightly sulfaSALAzine (AZULFIDINE) 500 mg, 3 times daily True Metrix Blood Glucose Test test strip 1 each, 3 times daily TRUEplus Lancets 33G misc 1 each, 3 times daily ALLERGIES: Allergies Allergen Reactions Ciprofloxacin Hives, Rash and Unknown Empagliflozin Unknown Lisinopril Other Reaction(s): Other (See Comments) Cough Octacosanol Unknown Oxycodone-Acetaminophen Unknown Propofol GI intolerance Problems awakening and GI upset with general anesthesia Propoxyphene Fever pt. not sure Indomethacin Rash (Indocin) extremely high temperature elevation Penicillins Rash and Unknown rash Wound Dressing Adhesive Rash Past Medical History: Diagnosis Date Asthma ([facility]/HCC) Current use of insulin ([facility]) Dietary counseling and surveillance Fibromyalgia HTN (hypertension) ([facility]) Mixed hyperlipidemia ([facility]) Post-surgical hypothyroidism ([facility]) Rheumatoid arthritis ([facility]) TMJ (dislocation of temporomandibular joint) Type 2 diabetes mellitus with other circulatory complications ([facility]) Vitamin D deficiency Past Surgical History: Procedure Laterality Date ELBOW SURGERY Right Right elbow replacement PARTIAL HYSTERECTOMY TOTAL KNEE ARTHROPLASTY Right TOTAL THYROIDECTOMY REVIEW OF SYMPTOMS: 14 POINT OF SYSTEM REVIEWED AND NEGATIVE OBJECTIVE: Constitutional: Afebrile @ home; no weakness or night sweats SKIN: No change in skin color; no itching, rash or lesions; no hair loss; HEENT: No HAs or injury; no dizziness; No difficulty with vision; no eye pain, discharge or lesions; no hearing loss or difficulty; no nasal discharge, NECK: No pain, limitation of motion, lumps or swollen glands RESP: No cough, wheezing or difficulty breathing. No CP with breathing; CARDIO: No CP , SOB or fatigue, No edema, palpitations or dyspnea with exertion GI: No N/V/D or abd. pain; good appetite with no recent change. No heart burn, liver or gallbladder disease; no rectal bleeding or pain : No urinary pain , frequency or odor. MUSCULOSKELETAL: No muscle pain or cramps; no extremity weakness.No joint pain, stiffness, swelling or limitation of movement NEUROLOGY: No H/O seizures, stroke or fainting. No weakness, tremors. Hematology: No bleeding problems or excessive bruising ENDOCRINE: No increase in hunger, thirst or urination; admits compliance to medical management plan Feet: numbness tingling yes , ulcers or skin break no Lab Results Component Value Date HGBA1C 9.4 09/10/2024 Lab Results Component Value Date GLU 112 09/10/2024 GLU 237 (H) 05/14/2024 GLU 146 (H) 11/23/2023 Visit Vitals BP 146/78 Pulse 79 Resp 18 Ht 5' 4 Wt 147 lb BMI 25.23 kg/m BSA 1.74 m ASSESSMENT AND PLAN: Assessment/Plan Diagnoses and all orders for this visit: Type 2 diabetes mellitus with hyperglycemia, with long-term current use of insulin ([facility]) - POCT glucose manually resulted - POCT glycosylated hemoglobin (Hb A1C) docked device - insulin glargine (Lantus SoloStar) 100 UNIT/ML pen; Inject 55 Units under the skin at bedtime - empagliflozin (Jardiance) 25 MG; Take 1 tablet (25 mg) by mouth Daily - insulin aspart (NovoLOG FLEXPEN) 100 UNIT/ML pen; Inject 20 Units under the skin in the morning and 20 Units at noon and 20 Units in the evening. Inject before meals. - C-peptide; Future - Vitamin D 25 hydroxy Total; Future - Microalbumin / creatinine urine ratio; Future - Lipid panel; Future - Renal function panel; Future We will continue with Lantus 55, NovoLog 09/15/18 according to meal size plus scale 3, Jardiance 25 mg once a day. Primary hypertension (CMS/HCC) Insulin long-term use ([facility]) Hyperlipemia, mixed ([facility]) Vitamin D deficiency Encounter for dietary consultation Diet and exercise reviewed with the patient Postoperative hypothyroidism ([facility]) - levothyroxine (Synthroid, Levoxyl) 200 MCG tablet; Take 1 tablet (200 mcg) by mouth in the morning. Take before meals. - T3, free; Future - T4, free; Future - TSH; Future Continue with levothyroxine 200 mcg daily , we will check lab and adjust Follow up in about 4 months (around 01/09/2025). documented in this encounter [facility] 08-19-2024 History of Present illness Narrative Physical Therapy Treatment Visit Patient Name: Elsa Catalan Today's Date: 08/19/2024 Encounter Diagnoses Name Primary? Right hip pain Yes Right leg weakness Difficulty walking Visit number: 11 (3 of 8) Timed Code Treatment: 40 minutes Total Treatment Time: 65 minutes Time In: 829 Time Out: 934 History: Pt. Presents to PT PO ORIF right femur. DOS: 06/27/24. Pt. Fell down steps resulting in clean break of her right femur on 06/27/24. Pt. Presents to PT in Wheelchair due to difficulty walking with assistive device. Pt has a FWW at home. Pt. [facility]. Pt. Reports of no precautions and is allowed to put full weight onto right LE. Pt. Has been walking in nursing with FWW and PT up to 25 feet. Pt is having difficulty lifting right hip greater than 90 degrees. Precautions: No precautions Subjective Pt reports of increase groin pain today. C/c is right LE weakness. Pain: 4-5/10 Objective: PT Evaluation (07/11/24) Right hip AROM: [...] healing well, increased quadriceps muscle tightness Treatment: Manual Therapy: (8 minutes) Delivered manual ther to right thigh MFR, STM to adductors due spasm and increased soreness. Therapeutic Exercise: (17 minutes supervised) Guided pt through ther and flex LE strengthening instructed to improve exercises per grid to improve R LE hip strength, functional mobility and gait Therapeutic Activity: (15 minutes supervised) Exercises to improve dynamic activities, functional tasks, functional mobility to return to prior activity level. Cues provided to improve reciprocal gait and equal strides. Pt was able to do stairs with recipical gait and B UE support. Sit to stands from low mat table w/o UE. Gait Training: (0 minutes supervised) Amb with quad cane with SBA for 300 foot, walks. Neuromuscular re-education: Balance Training, Muscle Facilitation, Dynamic Stability, Core Stabilization, and Blood Flow Restriction Training (BFRT) Modalities: (PRN) Assessment: Pt. Has participated in 11 PT session with start of POC on 07/11/24 for right femur ORIF on 06-27-[address] Simental. Pt is not using WC to walk into clinic anymore. Add step up and had difficulty with 4 in step up due to right lateral hip weakness and right LE giving out on her. Pt. Is challenged with exercises and easily fatigued. Performed adductor stretch and MFR to help decrease pain/muscle spasm. Outcome Measure: Short Term Goal: To be met in 2 weeks Goal 1: Pt to be instructed in home exercise program. 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 Date: documented in this encounter [facility] 08-16-2024 History of Present illness Narrative Physical Therapy Treatment Visit Patient Name: Elsa Catalan Today's Date: 08/16/2024 Encounter Diagnoses Name Primary? Right hip pain Yes Right leg weakness Difficulty walking Visit number: 10 (2 of 8) Timed Code Treatment: 53 minutes Total Treatment Time: 65 minutes Time In: 0850 Time Out: 0955 History: Pt. Presents to PT PO ORIF right femur. DOS: 06/27/24. Pt. Fell down steps resulting in clean break of her right femur on 06/27/24. Pt. Presents to PT in Wheelchair due to difficulty walking with assistive device. Pt has a FWW at home. Pt. [facility]. Pt. Reports of no precautions and is allowed to put full weight onto right LE. Pt. Has been walking in nursing with FWW and PT up to 25 feet. Pt is having difficulty lifting right hip greater than 90 degrees. Precautions: No precautions Subjective Pt reports she is walking with walker more around the house. Having increased right Groin pain today. Amb into the clinic w/ walker. Pain: 4-5 Objective: PT Evaluation (07/11/24) Right hip AROM: [...] healing well, increased quadriceps muscle tightness Treatment: Manual Therapy: (8 minutes) Delivered manual ther to right thigh MFR, STM to adductors due spasm and increased soreness. Therapeutic Exercise: (30 minutes supervised) Guided pt through ther and flex LE strengthening instructed to improve exercises per grid to improve R LE hip strength, functional mobility and gait Therapeutic Activity: (15 minutes supervised) Exercises to improve dynamic activities, functional tasks, functional mobility to return to prior activity level. Cues provided to improve reciprocal gait and equal strides. Pt was able to do stairs with recipical gait and B UE support. Sit to stands from low mat table w/o UE. Gait Training: (0 minutes supervised) Amb with quad cane with SBA for 300 foot, walks. Neuromuscular re-education: Balance Training, Muscle Facilitation, Dynamic Stability, Core Stabilization, and Blood Flow Restriction Training (BFRT) Modalities: (PRN) Assessment: Pt. Has participated in 10 PT session with start of POC on 07/11/24 for right femur ORIF on 06-27-[address] Simental. 6 weeks P.O using WC into clinic. Pt. Continues to have difficulty walking for long periods of time due to muscle weakness and fast fatigue. Pt is able to amb with quad cane two laps around clinic, and using stair w/ step to pattern ascending and descending steps, CGA. Pt. Demonstrates slow steady progress toward PT goals and recommend her continuing PT at 2x per week for 4 weeks. Outcome Measure: Short Term Goal: To be met in 2 weeks Goal 1: Pt to be instructed in home exercise program. Retirement Goals: To be met in 10 weeks [...] POC medically necessary. Please sign below. Date: Cosigned by Magdalena Barnes, PT at 08/19/2024 9:50 AM EST documented in this encounter [facility] 08-14-2024 History of Present illness Narrative Physical Therapy Treatment Visit Patient Name: Elas Catalan Today's Date: 08/14/2024 Encounter Diagnoses Name Primary? Right hip pain Yes Right leg weakness Difficulty walking Visit number: 9 (1 of 8) Timed Code Treatment: 53 minutes Total Treatment Time: 65 minutes Time In: 0920 Time Out: 1025 History: Pt. Presents to PT PO ORIF right femur. DOS: 06/27/24. Pt. Fell down steps resulting in clean break of her right femur on 06/27/24. Pt. Presents to PT in Wheelchair due to difficulty walking with assistive device. Pt has a FWW at home. [facility] Pt. Reports of no precautions and is allowed to put full weight onto right LE. Pt. Has been walking in nursing with FWW and PT up to 25 feet. Pt is having difficulty lifting right hip greater than 90 degrees. Precautions: No precautions Subjective Pt reports she is walking with walker more around the house. Having increased right Groin pain today. Amb into the clinic w/ walker. Pain: 4-5/10 Objective: PT Evaluation (07/11/24) Right hip AROM: [...] healing well, increased quadriceps muscle tightness Treatment: Manual Therapy: (8 minutes) Delivered manual ther to right thigh MFR, STM to adductors due spasm and increased soreness. Therapeutic Exercise: (30 minutes supervised) Guided pt through ther and flex LE strengthening instructed to improve exercises per grid to improve R LE hip strength, functional mobility and gait Therapeutic Activity: (15 minutes supervised) Exercises to improve dynamic activities, functional tasks, functional mobility to return to prior activity level. Cues provided to improve reciprocal gait and equal strides. Pt was able to do stairs with recipical gait and B UE support. Sit to stands from low mat table w/o UE. Gait Training: (0 minutes supervised) Amb with quad cane with SBA for 300 foot, walks. Neuromuscular re-education: Balance Training, Muscle Facilitation, Dynamic Stability, Core Stabilization, and Blood Flow Restriction Training (BFRT) Modalities: (PRN) Assessment: Pt. Has participated in 9 PT session with start of POC on 07/11/24 for right femur ORIF on 06-27-[address] Simental. 6 weeks P.O using WC into clinic. Pt. Continues to have difficulty walking for long periods of time due to muscle weakness and fast fatigue. Pt. Was able to perform 3x laps around clinic walking with FWW today but was challenged. Pt. Demonstrates slow steady progress toward PT goals and recommend her continuing PT at 2x per week for 4 weeks. Outcome Measure: Short Term Goal: To be met in 2 weeks Goal 1: Pt to be instructed in home exercise program. Retirement Goals: To be met in 10 weeks [...] POC medically necessary. Please sign below. Date: Cosigned by Magdalena Barnes, PT at 08/14/2024 1:08 PM EST documented in this encounter [facility] 08-06-2024 History of Present illness Narrative Physical Therapy Treatment Visit Patient Name: Elsa Catalan Today's Date: 08/06/2024 Encounter Diagnoses Name Primary? Right hip pain Yes Right leg weakness Difficulty walking Visit number: 7 Timed Code Treatment: 54 minutes Total Treatment Time: 54 minutes Time In: 8:30 AM Time Out: 9:24 AM History: Pt. Presents to PT PO ORIF right femur. DOS: 06/27/24. Pt. Fell down steps resulting in clean break of her right femur on 06/27/24. Pt. Presents to PT in Wheelchair due to difficulty walking with assistive device. Pt has a FWW at home. Pt. [facility]. Pt. Reports of no precautions and is allowed to put full weight onto right LE. Pt. Has been walking in nursing with FWW and PT up to 25 feet. Pt is having difficulty lifting right hip greater than 90 degrees. Precautions: No precautions Subjective Pt reports she is walking with walker more around the house. Having increased right buttock muscle pain today. Pain: 4-5/10 Objective: PT Evaluation (07/11/24) Right hip AROM: [...] healing well, increased quadriceps muscle tightness Treatment: Manual Therapy: (9 minutes) Delivered manual ther to right thigh MFR, hip PROM in all planes, STM to incision site to promote hip mobility and decrease scar tissue Therapeutic Exercise: (35 minutes supervised) Guided pt through ther and flex LE strengthening instructed to improve exercises per grid to improve R LE hip strength, functional mobility and gait Therapeutic Activity: Exercises to improve dynamic activities, functional tasks, functional mobility to return to prior activity level Gait Training: (10 minutes supervised) Amb with FWW with SBA for 220 foot, walks. Cues provided to improve reciprocal gait and equal strides. Pt was able to do stairs with recipical gait and B UE support. Amb about 40 foot FWW, CGA to progress to less restrictive device. Neuromuscular re-education: Balance Training, Muscle Facilitation, Dynamic Stability, Core Stabilization, and Blood Flow Restriction Training (BFRT) Modalities: (PRN) Assessment: Pt. Has participated in 7 PT session with start of POC on 07/11/24 for right femur ORIF on 06-27-[address] Simental. 6 weeks P.O using WC into clinic. Pt. Continues to have difficulty walking for long periods of time due to muscle weakness and fast fatigue. Pt. Was able to perform 3x laps around clinic walking with FWW today but was challenged. Pt. Demonstrates slow steady progress toward PT goals and recommend her continuing PT at 2x per week for 4 weeks. Outcome Measure: Short Term Goal: To be met in 2 weeks Goal 1: Pt to be instructed in home exercise program. 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 Date: documented in this encounter [facility] 07-11-2024 History of Present illness Narrative Physical [...] a FWW at home. Pt. Was in [facility] days. Pt. Reports of no [...] to be instructed in home exercise program. Retirement Goals: To be met in 10 weeks [...] sign below. Date: documented in this encounter [facility] 06-06-2024 Note HNO ID: [id number] Author: MAGNOLIA NEWMAN RT(R) Service: ? 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 [facility] 11/27/20 BMD osteopenia. taking sulfasalazine [...] over, shoulders, back, R hip/restricted. Reports pain /10. Has minimal AM stiffness. 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 Had [employer] vaccines 07/01/21, 07/22/21. wants to return to [...] for possible surgery eval. Had BMD in [facility], no response. Saw pain clinic and on lidocaine 5%. More joint pain/swelling R>L hand/R wrist since spacing humira to every 21days for asthma (which is great). Patient requesting to increase humira to 14days due to joint pain/swelling. No steroids since last office visit. Same L 4th/5th finger numbness. Wants COVID vaccine. Reports pain -07/11. Extended AM stiffness. Feels safe at home. [...] Almanzar is admitting pt to hospital in [place] to debride wound she has on her [...] pain. 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 [place] better on xeljanz and did not have [...] throat. Hoarse voice. Around ill patients [facility]. Declined tablet survey. Tired. Feeling better since [...] buttocks, right arm/bicep whole body flare . [place] great when taking xeljanz XR for two [...] with prozac (started nexium). 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: 05/14/24 high glucose 237, esr [...] 15, crp 0.7, vitamin D 34.8, vitamin [id number];negative quantiferon tb; Patient's request for medication is as follows: 05/24/23 low potassium 3.4;high esr 35, crp 0.9;normal rest of cbc, cmp, vitamin D 41.5, vitamin [id number]; 02/16/23 high glucose 260(328), esr 27 (60);normal rest of cmp, cbc, crp<0.3, (3), vitamin D 42.3; 07/29/22 high esr 60 (30), crp 3 (0.7), glucose 328;normal rest of cmp, cbc, vitamin D 36.8; 12/28/21 low potassium 3.3;high esr 30 (44), glucose 339 (480);NL rest of cbc, cmp, vitamin [id number], vitamin D 31.5;negative quantiferon tb, hepatitis panel [...] of cmp, cbc, vitamin D 43.5, vitamin [id number];negative quantiferon tb; [facility] 11/27/20 BMD osteopenia L1/L3/L4 1.102 g/cm2, tscore-More than half of todays over 40 minute [id number] office visit was spent in counselling/coordination of care, zscore2;L fem neck 0.808g/cm2, tscreo-0.4, zscore1;Total L hip 0.946g/cm2, tscore 0, zscore1.1;R fem neck 0.662g/cm2, tscore-1.7, zscore-0.3, Total R hip 0.781g/cm2, tscore-1, zscore0.3;L foreamr 0.505g/cm2, tscore-1.2, zscore0.3; FRAX major osteoporotic fracture risk 11%;hip fracture risk 1.2%; [facility] 11/27/20 lumbar xrays-mild osteopenia. Significant [...] potassium 3.3, calcium 7.6;NL rest of bmp 4/15/19 high glucose 364, esr 83 (59), crp [...] in diameter. 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 Had BMD in [facility]. saw pulm 11/2021, no rheumatoid arthritis associated ILD. Had COVID19 infection in 05/2022 treated with steroids and inhalers. 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 3rd grandchild (boy) 11/2022. [facility] 11/27/20 BMD osteopenia.Numbness of left [...] 15, crp 0.7, vitamin D 34.8, vitamin f91-1886;negative quantiferon tb; Patient's request for medication is [...] eval, much improved with rinvoq daily/received by [employer], continue sq 1ml once every other week [...] of Care,spent more than 50% of the fbam-sb-daql time in counseling, explanation of diagnosis, and planning of further management, I spent a total of 30 minutes on the date of the service which included preparing to see the patient, cimp-vy-xtet patient care, completing clinical documentation, obtaining and/or [...] (ID); (ortho);Dr.Douglas Schafer documented in this encounter [facility] 05-18-2024 Note HNO ID: [id number] Author: PEPE CARTER MD Service: ? 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 [facility] 05-17-2024 Instructions Pepe Carter MD - [...] the flow of saliva in many patients. Edgar flavored sugarless tablets and sugar-free chewing gum [...] called punctal occlusion. In this procedure, an head still operator inserts small plugs into the tear ducts [...] must be highly individualized. In virtually every [facility] area, the [employer] is engaged in [...] usual activities immediately. documented in this encounter [facility] 05-16-2024 Telephone encounter Note Notified patient of below, verbal understanding. [facility] 05-16-2024 Miscellaneous Notes Notified patient of below, [...] 15, crp 0.7, vitamin D 34.8, vitamin a67-6437;negative quantiferon tb; Patient's request for medication is [...] Pepe Carter MD documented in this encounter [facility] 05-15-2024 Telephone encounter Note Please Call patient [...] 15, crp 0.7, vitamin D 34.8, vitamin e49-5936;negative quantiferon tb; Patient's request for medication is as follows: Requested Prescriptions Signed Prescriptions Disp Refills ergocalciferol 50,000 unit capsule (VITAMIN D2, DRISDOL) 16 capsule 0 Sig: (take by mouth with food twice a week, ONE CAPSULE ON MONDAY AND ONE ON MONDAY) FOR A TOTAL OF 8 WEEKS. Authorizing Provider: PEPE CARTER Prescription(s) as above. Please process accordingly. Pepe Carter MD T [facility] 05-15-2024 Telephone encounter Note Patient transferred to [facility] from [facility]. Scheduled pt at [facility] on 05/18/24 at 10:20am with Dr. Carter, patient aware of location and address given. [facility] 05-15-2024 Miscellaneous Notes Patient transferred to [facility] from [facility]. Scheduled pt at [facility] on 05/18/24 at 10:20am with Dr. Carter, patient aware of location and address given. Left patient a VM to schedule with Dr. Carter on 05/18 or 06/01 can be virtual, phone or in person Please call patient. Thank you for the update. Sorry to hear about your discomfort. Will review labs when completed/finalized Please schedule follow up visit 05/18/24 via phone/virtual or in office visit [facility] 4th floor. Hope you feel better soon! Warm regards, :) Patient's request for medication is as follows: Requested Prescriptions Signed Prescriptions Disp Refills leflunomide (ARAVA) 20 mg tablet 90 tablet 3 Sig: Take 1tab daily by mouth with food. Hold in on antibiotics or ill. Authorizing Provider: PEPE CARTER methotrexate sodium 25 mg/mL soln 25 mL 3 Sig: Sq 1ml injection once a week. No alcohol. Hold if on antibiotics or ill. Authorizing Provider: PEPE CARTER sulfaSALAzine EC (AZULFIDINE EN-TABS) 500 mg EC tablet 270 tablet 3 Sig: Take 1 tablet by mouth three times a day. Authorizing Provider: PEPE CARTER Prescription(s) as above. Please process accordingly. Pepe Carter MD Pt is overdue for labs that were ordered by DR Carter to have done in January . - pt is aware to have her labs x 1 mth -- Rt elbow , back, ankles, feet and R calf - constant ache pain and stiffness 04/10 , - feel like my R ankle is swollen and lexx hands - Rt leg stiffness is worsening at night . currently on Sulfasalazine 500mg tid no pred MTX- 10 tabs on Saturdays Leflunomide 20 mg - once daily -out of med since yesterday also has been taking Excedrin migraine for her pain - takes up to 2 tabs daily - at times tuyet to take up to 4 tabs daily depending on severity of pain - which will help alleviate some of her pain Please advise further pt will need all meds refilled at [facility] as closed and they did not transfer meds Rinvog was discontinued due to hoarseness/laryngitis - voice is now back and no issues since off medication . Has not taking Prednisone for awhile due to her DM Pt also asking about going back on Rinvoq. Pt states she was taken off a few months ago but was suppose to see manpower development specialist to see about going back on. PHERESIS SPECIALIST appt was canceled. Pt having pain and would like new medication. Please advise Prescription Refill Information The patient has been identified by name and date of : Yes Caregiver verified no other encounters exist for this prescription request: Yes Caregiver confirmed with patient/requestor that no other refills are due, in the near future, with this provider at this time: Yes The last office visit in the department: 11/23/23 Does the patient have a future office visit with this provider/department: Yes Requested Prescriptions Pending Prescriptions Disp Refills leflunomide (ARAVA) 20 mg tablet 90 tablet 3 Sig: Take 1tab daily by mouth with food. Hold in on antibiotics or ill. Lashae Suero May 14, 2024 8:07 AM documented in this encounter [facility] 05-15-2024 Telephone encounter Note Left patient a VM to schedule with Dr. Carter on 05/18 or 06/01 can be virtual, phone or in person [facility] 05-14-2024 Telephone encounter Note Please call patient. Thank you for the update. Sorry to hear about your discomfort. Will review labs when completed/finalized Please schedule follow up visit 05/18/24 via phone/virtual or in office visit [facility] 4th floor. Hope you feel better soon! Warm regards, :) Patient's request for medication is as follows: Requested Prescriptions Signed Prescriptions Disp Refills leflunomide (ARAVA) 20 mg tablet 90 tablet 3 Sig: Take 1tab daily by mouth with food. Hold in on antibiotics or ill. Authorizing Provider: PEPE CARTER methotrexate sodium 25 mg/mL soln 25 mL 3 Sig: Sq 1ml injection once a week. No alcohol. Hold if on antibiotics or ill. Authorizing Provider: PEPE CARTER sulfaSALAzine EC (AZULFIDINE EN-TABS) 500 mg EC tablet 270 tablet 3 Sig: Take 1 tablet by mouth three times a day. Authorizing Provider: PEPE CARTER Prescription(s) as above. Please process accordingly. Pepe Carter MD [facility] 05-14-2024 Telephone encounter Note Pt is overdue for labs that were ordered by DR Carter to have done in January . - pt is aware to have her labs x 1 mth -- Rt elbow , back, ankles, feet and R calf - constant ache pain and stiffness 04/10 , - feel like my R ankle is swollen and lexx hands - Rt leg stiffness is worsening at night . currently on Sulfasalazine 500mg tid no pred MTX- 10 tabs on Saturdays Leflunomide 20 mg - once daily -out of med since yesterday also has been taking Excedrin migraine for her pain - takes up to 2 tabs daily - at times tuyet to take up to 4 tabs daily depending on severity of pain - which will help alleviate some of her pain Please advise further pt will need all meds refilled at [facility] as closed and they did not transfer meds Rinvog was discontinued due to hoarseness/laryngitis - voice is now back and no issues since off medication . Has not taking Prednisone for awhile due to her DM [facility] 05-14-2024 Telephone encounter Note Pt also asking about going back on Rinvoq. Pt states she was taken off a few months ago but was suppose to see manpower development specialist to see about going back on. PHERESIS SPECIALIST appt was canceled. Pt having pain and would like new medication. Please advise Prescription Refill Information The patient has been identified by name and date of : Yes Caregiver verified no other encounters exist for this prescription request: Yes Caregiver confirmed with patient/requestor that no other refills are due, in the near future, with this provider at this time: Yes The last office visit in the department: 11/23/23 Does the patient have a future office visit with this provider/department: Yes Requested Prescriptions Pending Prescriptions Disp Refills leflunomide (ARAVA) 20 mg tablet 90 tablet 3 Sig: Take 1tab daily by mouth with food. Hold in on antibiotics or ill. Lashae Suero May 14, 2024 8:07 AM [facility] 01-04-2024 Miscellaneous Notes Left below message as [...] Lm regarding results and recommendations sent via [employer]. Please call patient. Thank you for the [...] calling: self Call patient at: on cell [phone] (home) [phone] (cell) Was an appointment scheduled: No Closing statement: Symptom Call: Thank you for calling [facility], your call is very important. A nurse will call in approximately 2-4 hours during business hours. If this is an emergency, please contact 911. Rose Subramanian documented in this encounter [facility] 11-23-2023 History of Present illness Narrative Face [...] asthma, much improved with rinvoq daily/received by [facility], continue sq 1ml once every other week injections methotrexate (HOLD 1-2weeks after vaccines), ssz 500mg 3times a day, daily arava, OFF plaquenil, prozac and f/u with PCP for adjustment, nightly and prn wrist splints, PT exercises for contractures, eyedrops per ophthalmology 02/20/23:due for bmd after 11/27/22. [facility] 11/27/20 BMD osteopenia. 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 COVID vaccine HALO2CLOUD 07/01/21, 07/22/21. 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 Had orangutrans 07/01/21, 07/22/21. 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 Had BMD in [facility], no response. Saw pain clinic [...] Almanzar is admitting pt to hospital in [place] to debride wound she has on her [...] week. Tolerating daily arava/ssz. Still has R /5th numbness, ortho will improve 1year after elbow [...] pain. 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 [place] better on xeljanz and did not have [...] throat. Hoarse voice. Around ill patients at [facility]. Declined tablet survey. Tired. Feeling better since [...] buttocks, right arm/bicep whole body flare . [place] great when taking xeljanz XR for two [...] knee pain for several days. Worse yesterday 10. Started prednisone yesterday, pain all /10. Moderate AM stiffness. Has not missed methotrexate [...] with prozac (started nexium). 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: 05/24/23 low potassium 3.4;high esr 35, crp 0.9;normal rest of cbc, cmp, vitamin D 41.5, vitamin o54-5207; 02/16/23 high glucose 260(328), esr 27 (60);normal rest of cmp, cbc, crp<0.3, (3), vitamin D 42.3; 07/29/22 high esr 60 (30), crp 3 (0.7), glucose 328;normal rest of cmp, cbc, vitamin D 36.8; 12/28/21 low potassium 3.3;high esr 30 (44), glucose 339 (480);NL rest of cbc, cmp, vitamin r88-2861, vitamin D 31.5;negative quantiferon tb, hepatitis panel [...] of cmp, cbc, vitamin D 43.5, vitamin y84-5380;negative quantiferon tb; [facility] 11/27/20 BMD osteopenia L1/L3/L4 1.102 g/cm2, tscore-More than half of todays over 40 minute gqvl-sd-eeos office visit was spent in counselling/coordination of care, zscore2;L fem neck 0.808g/cm2, tscreo-0.4, zscore1;Total L hip 0.946g/cm2, tscore 0, zscore1.1;R fem neck 0.662g/cm2, tscore-1.7, zscore-0.3, Total R hip 0.781g/cm2, tscore-1, zscore0.3;L foreamr 0.505g/cm2, tscore-1.2, zscore0.3; FRAX major osteoporotic fracture risk 11%;hip fracture risk 1.2%; [facility] 11/27/20 lumbar xrays-mild osteopenia. Significant [...] in diameter. 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 Had BMD in [facility]. saw pulm 11/2021, no rheumatoid arthritis associated ILD. Had COVID19 infection in 05/2022 treated with steroids and inhalers. 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 3rd grandchild (boy) 11/2022. [facility] 11/27/20 BMD osteopenia.Numbness of left [...] eval, much improved with rinvoq daily/received by [facility], continue sq 1ml once every other week [...] of Care,spent more than 50% of the vagd-tz-mndq time in counseling, explanation of diagnosis, and planning of further management, I spent a total of 30 minutes on the date of the service which included preparing to see the patient, azww-vq-pbhv patient care, completing clinical documentation, obtaining and/or [...] (ID); (ortho);Dr.Douglas Schafer documented in this encounter [facility] 11-23-2023 Note HNO ID: [id number] Author: PEPE CARTER MD Service: ? 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 [facility] 11/27/20 BMD osteopenia. taking sulfasalazine [...] over, shoulders, back, R hip/restricted. Reports pain /10. Has minimal AM stiffness. Numbness of left [...] worsens asthma, rinvoq daily/restart when received by [facility], continue sq 1ml once every other week injections methotrexate (HOLD 1-2weeks after vaccines), ssz 500mg 3times a day, daily arava, OFF plaquenil, prozac and f/u with PCP for adjustment, nightly and prn wrist splints, PT exercises for contractures, eyedrops per ophthalmology, 08/11/22:saw pulm 11/2021, no rheumatoid arthritis associated ILD. Had COVID19 infection in 05/2022 treated with (more content not included)... [facility] 11-22-2023 Instructions Pepe Carter MD - [...] the flow of saliva in many patients. Edgar flavored sugarless tablets and sugar-free chewing gum [...] used to preserve a patient's own tears. Rudea can be fitted on the sides of glasses, helping to protect the eye from air and wind, reducing evaporation of tears. Goggles or wrap-around sunglasses serve a similar function. Another approach is a simple surgical procedure called punctal occlusion. In this procedure, an head still operator inserts small plugs into the tear ducts [...] be highly individualized. In virtually every [facility] area, the [employer] is [...] Website at [email or web address]. documented in this encounter [facility] 07-12-2023 Miscellaneous Notes Form faxed with confirmation. Form completed. Please process accordingly. Scan copy into [employer]. Notify patient when above completed. Recall in script when approved if needed. Thank you. Received refill request from [facility]. Form placed on your desk for signature. documented in this encounter [facility] 05-29-2023 Miscellaneous Notes patient has viewed the [employer] message per [employer]. Please Call patient if [employer] note not read to review results/released to My Chart if tests completed at [facility]: Mildly low normal potassium- increase potassium [...] of cbc, cmp, vitamin D 41.5, vitamin z35-3616; --- 02/16/23 high glucose 260(328), esr 27 (60);normal rest of cmp, cbc, crp<0.3, (3), vitamin D 42.3; documented in this encounter [facility] 08-11-2022 History of Present illness Narrative Face [...] upper back, due to see surgery. Had orangutrans 07/01/21, 07/22/21. 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 Had BMD in [facility], no response. Saw pain clinic [...] Almanzar is admitting pt to hospital in [place] to debride wound she has on her [...] week. Tolerating daily arava/ssz. Still has R /5th numbness, ortho will improve 1year after elbow [...] pain. 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 [place] better on xeljanz and did not have [...] throat. Hoarse voice. Around ill patients at [employer]. Declined tablet survey. Tired. Feeling better since [...] buttocks, right arm/bicep whole body flare . [place] great when taking xeljanz XR for two [...] with prozac (started nexium). 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 Had L thumb nodule injection last rheum visit with good results. Elevated LFTs since 2008. Was on lower methotrexate doses years ago. Patient denies fever, chills, cp, dyspnea, nausea, vomiting, night sweats, scalp tenderness, visual changes, abbott, bowel/bladder changes, weight changes or other complaints. 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 TESTS:07/29/22 high esr 60 (30), crp 3 (0.7), glucose 328;normal rest of cmp, cbc, vitamin D 36.8; 12/28/21 low potassium 3.3;high esr 30 (44), glucose 339 (480);NL rest of cbc, cmp, vitamin p69-7365, vitamin D 31.5;negative quantiferon tb, hepatitis panel [...] of cmp, cbc, vitamin D 43.5, vitamin p94-0847;negative quantiferon tb; [facility] 11/27/20 BMD osteopenia L1/L3/L4 1.102 g/cm2, tscore-More than half of todays over 40 minute iznu-ky-qkdn office visit was spent in counselling/coordination of care, zscore2;L fem neck 0.808g/cm2, tscreo-0.4, zscore1;Total L hip 0.946g/cm2, tscore 0, zscore1.1;R fem neck 0.662g/cm2, tscore-1.7, zscore-0.3, Total R hip 0.781g/cm2, tscore-1, zscore0.3;L foreamr 0.505g/cm2, tscore-1.2, zscore0.3; FRAX major osteoporotic fracture risk 11%;hip fracture risk 1.2%; [facility] 11/27/20 lumbar xrays-mild osteopenia. Significant [...] in diameter. 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 Had BMD in [facility]. saw pulm 11/2021, no rheumatoid [...] Several hours minimal AM stiffness. COVID vaccine HALO2CLOUD 07/01/21, 07/22/21. 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 3rd grandchild (boy) [...] worsens asthma, rinvoq daily/restart when received by [employer], continue sq 1ml once every other week [...] of Care,spent more than 50% of the jgev-fd-lfiv time in counseling, explanation of diagnosis, and planning of further management, I spent a total of 30 minutes on the date of the service which included preparing to see the patient, rcai-sc-fndm patient care, completing clinical documentation, obtaining and/or [...] (ID); (ortho);Dr.Douglas Schafer documented in this encounter [facility] 08-11-2022 Instructions Pepe Carter MD - 08/11/2022 [...] the flow of saliva in many patients. Edgar flavored sugarless tablets and sugar-free chewing gum [...] called punctal occlusion. In this procedure, an head still operator inserts small plugs into the tear ducts [...] Website at [email or web address]. documented in this encounter [facility] 08-01-2022 Miscellaneous Notes Pt was notified via [...] 339 (480);NL rest of cbc, cmp, vitamin b28-1315, vitamin D 31.5;negative quantiferon tb, hepatitis panel [...] soft tissue swelling. documented in this encounter [facility] 07-29-2022 Miscellaneous Notes Labs are done. Notify [...] these orders. Patient is enrolled in the [employer] free drug program. Thank you Requested Prescriptions Pending Prescriptions Disp Refills upadacitinib (RINVOQ) Tb24 tablet 90 tablet 3 Sig: Take 1 tablet (15 mg) by mouth once daily. Swallow whole; DO NOT crush, chew, or open. Hold if on antibiotics or ill. Hold 1weeks after vaccines. Please review and advise. David Wilson RPh documented in this encounter [facility] 07-27-2022 Miscellaneous Notes Patient has been scheduled as requested for 07/29/22. I spoke with Hossein and she is aware of all of the appointment details. Mary SUBRAMANIAN July 27, 2022 10:54 AM Please call and schedule nonfasting labs this month (active since 03/2022); Please send new script to [facility] if needed Notify office if not received. [...] get refills. This was done through the [employer] and encounter from 12/17/21 states approved through the end of the year. Patient had received a 3 month supply but no refills since then and she does not know who to contact. Patient has upcoming appointment on 08/11/2022. Pharmacy should not be [facility] - [facility] be [facility]. Patient has been identified by [...] [place]. Bettye Orr documented in this encounter [facility] [place] 04-18-2022 Miscellaneous Notes Please notify patient Patient's [...] Days Visit Type Date Time Department [facility] 08/11/2022 9:20 AM [facility] CBC: CBC Latest Ref Rng & [...] Anastasiia Ballard MA documented in this encounter [facility] [place] 12-30-2021 Instructions Janel Chi APRN.ELECTRONIC IMAGER - 12/30/2021 3:29 PM EDT May apply [...] the flow of saliva in many patients. Edgar flavored sugarless tablets and sugar-free chewing gum [...] called punctal occlusion. In this procedure, an head still operator inserts small plugs into the tear ducts [...] be highly individualized. In virtually every [facility] area, the [employer] is [...] Website at [email or web address]. documented in this encounter [facility] 12-30-2021 History of Present illness Narrative DISTANCE [...] hand pain Per Dr. 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 Had orangutrans 07/01/21, 07/22/21. wants to return to xeljanz since it did not cause lung issues vs humira/worsens breathing/asthma. More joint pain if stretching humira to every 3weeks. Still taking gabapentin. Reports pain 05/11. Moderate AM stiffness several hours. Nodule on L elbow. Numbness and tingling of 4th/5th fingers after L elbow surgery. Had BMD in [facility]. Feels safe at home. Has enough food, supplies and medications. 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 Janel Chi APRN.[facility] cc Pretty Fermin MD, MD Patient [...] the flow of saliva in many patients. Edgar flavored sugarless tablets and sugar-free chewing gum [...] called punctal occlusion. In this procedure, an head still operator inserts small plugs into the tear ducts [...] be highly individualized. In virtually every major [facility] area, the [employer] is [...] the flow of saliva in many patients. Edgar flavored sugarless tablets and sugar-free chewing gum [...] called punctal occlusion. In this procedure, an head still operator inserts small plugs into the tear ducts [...] be highly individualized. In virtually every major [facility] area, the [employer] is [...] 104 53 - 334 mg/dL Final [facility] [place], Serum Date Value Ref Range Status 02/18/2011 1190 534 - 1267 mg/dL Final [facility] Lambda, Serum Date Value Ref Range Status 02/18/2011 675 (H) 253 - 653 mg/dL Final [facility] [place]/Lambda Ratio Date Value Ref Range Status 02/18/2011 [...] 32.4 sec 28.5 documented in this encounter [facility] [place] 12-29-2021 Miscellaneous Notes Pt identified by name [...] 339 (480);NL rest of cbc, cmp, vitamin a86-3183, vitamin D 31.5;negative hepatitis panel except +hepB [...] soft tissue swelling. documented in this encounter [facility] Evaluation note Diagnosis Rheumatoid arthritis of multiple sites without organ or system involvement with positive rheumatoid factor (HCC)- Primary Elevated LFTs Other abnormal blood chemistry Anemia of chronic disease Anemia of other chronic disease Elevated sed rate Elevated sedimentation rate Elevated C-reactive protein (CRP) Vitamin D deficiency Unspecified vitamin D deficiency [facility] Diagnosis Rheumatoid arthritis of multiple sites [...] Pain in limb [facility] Diagnosis Fibromyalgia Mylagia and myositis, unspecified Postherpetic neuralgia Herpes zoster with other nervous system complications Bilateral carpal tunnel syndrome Carpal tunnel syndrome [facility] Diagnosis Rheumatoid arthritis of multiple sites without organ or system involvement with positive rheumatoid factor (HCC) documented [facility] this [facility] Diagnosis Rheumatoid arthritis of multiple sites without organ or system involvement with positive rheumatoid factor (HCC) documented [facility] this [facility] Diagnosis Rheumatoid arthritis of multiple sites without organ or system involvement with positive rheumatoid factor (HCC)- Primary Elevated LFTs Other abnormal blood chemistry Anemia of chronic disease Anemia of other chronic disease Elevated sed rate Elevated sedimentation rate Elevated C-reactive protein (CRP) Vitamin D deficiency Unspecified vitamin D deficiency documented [facility] Diagnosis Rheumatoid arthritis of multiple sites [...] abnormal blood chemistry [facility] Diagnosis Chronic elbow pain, left documented [facility] this [facility] Diagnosis Rheumatoid arthritis [...] for pulmonary tuberculosis documented [facility] this [facility] Diagnosis Rheumatoid arthritis [...] vitamin D deficiency [facility] Diagnosis Rheumatoid arthritis of multiple sites without organ or system involvement with positive rheumatoid factor (HCC)- Primary Elevated LFTs Other abnormal blood chemistry Anemia of chronic disease Anemia of other chronic disease Elevated sed rate Elevated sedimentation rate Elevated C-reactive protein (CRP) Vitamin D deficiency Unspecified vitamin D deficiency documented [facility] this encounter [facility] Diagnosis Lumbar foraminal [...] protein (CRP) Cervicalgia documented [facility] Diagnosis Lumbar foraminal stenosis Spinal stenosis, [...] Pain in limb [facility] Diagnosis Right hip pain- Primary Pain in joint, pelvic region and thigh Right leg weakness Muscle weakness (generalized) Difficulty walking Difficulty in walking documented in this encounter [facility]* Diagnosis Right hip pain- Primary Pain in joint, pelvic region and thigh Right leg weakness Muscle weakness (generalized) Difficulty walking Difficulty in walking [facility] Diagnosis Right hip pain- Primary Pain in joint, pelvic region and thigh Right leg weakness Muscle weakness (generalized) Difficulty walking Difficulty in walking [facility] Diagnosis Right hip pain- Primary Pain in joint, pelvic region and thigh Right leg weakness Muscle weakness (generalized) Difficulty walking Difficulty in walking [facility] Diagnosis Right hip pain- Primary Pain in joint, pelvic region and thigh Right leg weakness Muscle weakness (generalized) Difficulty walking Difficulty in walking [facility] Diagnosis Right hip pain- Primary Pain in joint, pelvic region and thigh Right leg weakness Muscle weakness (generalized) Difficulty walking Difficulty in walking [facility] Diagnosis Right hip pain- Primary Pain in joint, pelvic region and thigh Right leg weakness Muscle weakness (generalized) Difficulty walking Difficulty in walking [facility] Diagnosis Right hip pain- Primary Pain in joint, pelvic region and thigh Right leg weakness Muscle weakness (generalized) Difficulty walking Difficulty in walking [facility] Diagnosis Right hip pain- Primary Pain in joint, pelvic region and thigh Right leg weakness Muscle weakness (generalized) Difficulty walking Difficulty in walking [facility] Diagnosis Right hip pain- Primary Pain in joint, pelvic region and thigh Right leg weakness Muscle weakness (generalized) Difficulty walking Difficulty in walking [facility] Diagnosis Right hip pain- Primary Pain in joint, pelvic region and thigh Right leg weakness Muscle weakness (generalized) Difficulty walking Difficulty in walking [facility]* Diagnosis Type 2 diabetes mellitus with hyperglycemia, with long-term current use of insulin ([facility])- Primary Primary hypertension ([facility]) Unspecified essential hypertension Insulin long-term use ([facility]) Encounter for long-term (current) use of insulin Hyperlipemia, mixed ([facility]) Mixed hyperlipidemia Vitamin D deficiency Encounter for dietary consultation Postoperative hypothyroidism ([facility]) Postsurgical hypothyroidism [facility] Diagnosis Right hip pain- Primary Pain in joint, pelvic region and thigh Right leg weakness Muscle weakness (generalized) Difficulty walking Difficulty in walking documented [facility]* Diagnosis Right hip pain- Primary Pain in joint, pelvic region and thigh Right leg weakness Muscle weakness (generalized) Difficulty walking Difficulty in walking documented in this encounter [facility]* Diagnosis Lumbar foraminal stenosis Spinal stenosis, [...] (HCC)- Primary Postmenopausal osteoporosis of multiple sites Personal history of (healed) other pathological fracture Dry eye syndrome of both eyes Secondary osteoarthritis of multiple sites Osteoarthrosis involving, or with mention of more than one site, but not specified as generalized, multiple sites Long-term use of high-risk medication Bilateral hand pain Pain in limb Chronic elbow pain, right Joint stiffness of multiple sites Stiffness of joints, not elsewhere classified, multiple sites Chronic bilateral low back pain with right-sided sciatica Vitamin D deficiency Unspecified vitamin D deficiency Chronic pain of both shoulders Pain in joint, shoulder region Elevated sed rate Elevated sedimentation rate Synovitis of hand Other tenosynovitis of hand and wrist Bilateral elbow joint pain Abnormality of gait Fibromyalgia Mylagia and myositis, unspecified Chronic jaw pain Jaw pain Chronic hip pain, right documented [facility] Diagnosis Right hip pain- Primary Pain in joint, pelvic region and thigh Right leg weakness Muscle weakness (generalized) Difficulty walking Difficulty in walking documented in this encounter [facility]* Diagnosis Lumbar foraminal stenosis Spinal stenosis, [...] mild degree (HCC) Malnutrition of mild degree Elevated LFTs- Primary Other abnormal blood chemistry Anemia of chronic disease Anemia of other chronic disease Elevated sed rate Elevated sedimentation rate Elevated C-reactive protein (CRP) Vitamin D deficiency Unspecified vitamin D deficiency Screening-pulmonary TB Screening examination for pulmonary tuberculosis documented [facility] Diagnosis Right hip pain- Primary Pain in joint, pelvic region and thigh Right leg weakness Muscle weakness (generalized) Difficulty walking Difficulty in walking documented in this encounter [facility]* Diagnosis Right hip pain- Primary Pain in joint, pelvic region and thigh Right leg weakness Muscle weakness (generalized) Difficulty walking Difficulty in walking documented in this encounter [facility]* Diagnosis Lumbar foraminal stenosis Spinal stenosis, [...] system involvement with positive rheumatoid factor (HCC) Elevated sed rate Elevated sedimentation rate [facility] Diagnostic Procedure Only (Routine) - Closed Specialty Diagnoses / Procedures Referred By Conthilda t Referred To Contact XR IMAGING Diagnoses Chronic elbow pain, left Procedures XR ELBOW GENERAL 2V AP/LAT LT X-RAY ELBOW AP/LATERAL Pepe Carter MD [address] [place] [address] Xr Imaging Referral ID Status Reason Start Date Expiration Date V isits Requested Visits Authorized [id number] Closed Auto-Generate d Referral 07/26/2021 08/25/2022 1 1 [facility] for visit Narrative* Diagnostic Procedure Only (Routine) - Closed Specialty Diagnoses / Procedures Referred By Contac t Referred To Contact XR IMAGING Diagnoses Chronic elbow pain, left Procedures XR ELBOW GENERAL 2V AP/LAT LT X-RAY ELBOW AP/LATERAL Pepe Carter MD [address] [place] [address] Xr Imaging Referral ID Status Reason Start Date Expiration Date V isits Requested Visits Authorized [id number] Closed Auto-Generate d Referral 07/26/2021 08/25/2022 1 1 [facility] for visit Narrative* Diagnostic Procedure Only (Routine) - Closed Specialty Diagnoses / Procedures Referred By Contac t Referred To Contact XR IMAGING Diagnoses Trigger middle finger of right hand Bilateral hand pain Procedures XR HAND GENERAL 3V PA/LAT/OBL BILATERAL RADEX HAND MINIMUM 3 VIEWS Pepe Carter MD [address] [place] [address] [place] [address] Referral ID Status Reason Start Date Expiration Date V isits Requested Visits Authorized [id number] Closed Auto-Generate d Referral 05/18/2024 06/17/2025 1 1 [facility] for visit Narrative* Rehabilitation - Outpatient (Routine) - Authorized Specialty Diagnoses / Procedures Referred By Contac t Referred To Contact Physical Therapy Diagnoses Other osteoporosis with current pathological fracture, right femur, subsequent encounter for fracture with routine healing Procedures MI PHYSICAL THERAPY EVALUATION LOW COMPLEX 20 MINS Pretty Fermin MD [address] [place] [address] Phone: tel:[phone] fax: [facility] [address] [address] Phone: tel: fax: Referral ID Status Reason Start Date Expiration Date V isits Requested Visits Authorized [id number] Authorized 07/11/2024 08/11/2024 8 8 [facility]* Rehabilitation - Outpatient (Routine) - Closed Specialty Diagnoses / Procedures Referred By Contac t Referred To Contact Physical Therapy Diagnoses Other osteoporosis with current pathological fracture, right femur, subsequent encounter for fracture with routine healing Procedures MI PHYSICAL THERAPY EVALUATION LOW COMPLEX 20 MINS Pretty Fermin MD [address] [place] [address] Phone: tel: fax: [facility] [address] [address] Phone: tel: fax: Referral ID Status Reason Start Date Expiration Date Visits Re quested Visits Authorized [id number] Closed 07/11/2024 08/11/2024 8 8 [facility] N[facility]* Rehabilitation - Outpatient (Routine) - Authorized Specialty Diagnoses / Procedures Referred By Contac t Referred To Contact Physical Therapy Diagnoses Other osteoporosis with current pathological fracture, right femur, subsequent encounter for fracture with routine healing Procedures MI MANUAL THERAPY TQS 1/> REGIONS EACH 15 MINUTES PHYS/OCC THERAPY SS MI THERAPEUTIC PX 1/> AREAS EACH 15 MIN EXERCISES MI THER PX 1/> AREAS EACH 15 MIN NEUROMUSC REEDUCA Pretty Fermin MD [address] [place] [address] Phone: tel: fax: [facility] [address] [address] Phone: tel: fax: Referral ID Status Reason Start Date Expiration Date V isits Requested Visits Authorized [id number] Authorized 08/12/2024 09/11/2024 8 8 [facility] N[facility]* Rehabilitation - Outpatient (Routine) - Closed Specialty Diagnoses / Procedures Referred By Contac t Referred To Contact Physical Therapy Diagnoses Other osteoporosis with current pathological fracture, right femur, subsequent encounter for fracture with routine healing Procedures MI MANUAL THERAPY TQS 1/> REGIONS EACH 15 MINUTES PHYS/OCC THERAPY SS MI THERAPEUTIC PX 1/> AREAS EACH 15 MIN EXERCISES MI THER PX 1/> AREAS EACH 15 MIN NEUROMUSC Pretty Valdes MD [address] [place] [address] Phone: tel: fax: [facility] [address] [address] Phone: tel: fax: Referral ID Status Reason Start Date Expiration Date Visits Re quested Visits Authorized [id number] Closed 08/12/2024 09/11/2024 8 8 [facility] N[facility]* Rehabilitation - Outpatient (Routine) - Authorized Specialty Diagnoses / Procedures Referred By Jerad tavares Referred To Contact Physical Therapy Diagnoses Other osteoporosis with current pathological fracture, right femur, subsequent encounter for fracture with routine healing Procedures MI MANUAL THERAPY TQS 1/> REGIONS EACH 15 MINUTES PHYS/OCC THERAPY SS MI THERAPEUTIC PX 1/> AREAS EACH 15 MIN EXERCISES MI THER PX 1/> AREAS EACH 15 MIN NEUROMUSC Pretty Valdes MD [address] [place] [address] Phone: tel: fax: Magdalena Barnes, PT [address] [address] Phone: tel: fax: Referral ID Status Reason Start Date Expiration Date V isits Requested Visits Authorized [id number] Authorized 09/09/2024 10/11/2024 8 8 [facility] Summary Purpose Family History No Family History Records FoundNo Family History Records FoundNo Family History Records FoundNo Family History Records FoundNo Family History Records FoundNo Family History Records FoundNo Family History Records FoundNo Family History Records FoundNo Family History Records FoundNo Family History Records FoundNo Family History Records Found Advance Directives Documents on File Type Date Recorded 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 Advance Directives and Livin g Will 02/21/2019 11:35 AM Documents on File Type Date Recorded 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 Advance Directives and Livin g Will 02/27/2019 11:35 AM Latest Code Status on File Code Status Date Activated Date Inactivated Comments Full Code 02/27/2019 12:39 PM Documents on File Type Date Recorded 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 Advance Directives and Livin g Will 04/23/2019 2:22 PM Latest Code Status on File Code Status Date Activated Date Inactivated Comments Full Code 02/27/2019 12:39 PM Documents on File Type Date Recorded 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 Advance Directives and Livin g Will 09/04/2019 5:50 AM Latest Code Status on File Code Status Date Activated Date Inactivated Comments Full Code 09/04/2019 4:13 PM Full Code 02/27/2019 12:39 PM 09/04/2019 5:49 AM Documents on File Type Date Recorded 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 Advance Directives and Livin g Will 10/12/2019 1:17 PM Latest Code Status on File Code Status Date Activated Date Inactivated Comments Full Code 10/12/2019 4:09 PM Full Code 09/04/2019 4:13 PM 10/12/2019 12:47 PM Documents on File Type Date Recorded 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 Advance Directives and Livin g Will 04/01/2020 1:24 PM Latest Code Status on File Code Status Date Activated Date Inactivated Comments Full Code 10/12/2019 4:09 PM 04/08/2020 9:15 AM Documents on File Type Date Recorded 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 Advance Directives and Livin g Will 04/01/2020 1:24 PM Latest Code Status on File Code Status Date Activated Date Inactivated Comments Full Code 10/12/2019 4:09 PM 04/08/2020 9:15 AM Full Code 09/04/2019 4:13 PM 10/12/2019 12:47 PM Full Code 02/27/2019 12:39 PM 09/04/2019 5:49 AM Documents on File Type Date Recorded 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 Advance Directives and Livin g Will 09/04/2019 5:50 AM Latest Code Status on File Code Status Date Activated Date Inactivated Comments Full Code 09/04/2019 4:13 PM Documents on File Type Date Recorded 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 Advance Directives and Livin g Will 08/28/2019 12:58 PM Documents on File Type Date Recorded 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 Advance Directive(s) Advance Directive(s) 03/16/2021 12:22 PM Advance Directive(s) 03/15/2021 1:41 PM Advance Directive(s) 01/25/2021 2:47 PM Instructions * Patient Instructions* Sveta Silva, DO - 02/21/2019 12:46 PM EDT If your surgery date changes or you change your surgery date, please call us at [phone] TAKE YOUR BLOOD PRESSURE DAILY (EITHER WITH [...] [place] Home Medication Instructions Prior to Surgery RICKI:[id number] Printed on:02/21/19 4743 Medication Information Take last dose on Take [...] medications that contain aspirin, such as Patricia [place], Pepto- Bismol, Anacin), antiinflammatory medications such as Advil, Motrin, Ibuprofen, Naproxen, Aleve, Patricia [place], Anacin, Diclofenac, Voltaren, Daypro, Etodolac, Ketoprofen, Piroxicam, Relafen, Nabumetone, etc. Also discontinue Vitamin C, Vitamin E, [place]-3 Fatty Acid, Fish Oil or Lovaza, and [...] If the bleeding does not stop, call [facility] [phone] or go to the Emergency Room. Signs/Symptoms of Infection: If you have any fever, chills, nausea, vomiting or increased odor, drainage, pain or redness to thewound, call [facility] at [phone]. If after hours, contact your family physician [...] oz cooked 22 Luna 1 slice 3 Japanese-style Luna (Back Luna) 1 slice 5-6 Eggs and Dairy Egg Large 6 Milk 1 cup 8 Cottage Cheese cup 15 Yogurt 1 cup 8-12 [place]ican Yogurt 6 oz 18 Soft Cheeses (Mozzarella, Brie) 1 oz 6 Medium Cheeses(Cheddar,Argentine) 1 oz 7-8 Hard Cheeses (Parmesan) 1 oz 10 Beans / Soy Tofu cup 10 Soy Milk 1 cup 6-10 Soy Beans cup cooked 14 Edamame cup 8-12 Most Beans (black, spear, lentils) cup cooked 7-10 Split Peas cup cooked 8 Nuts and Seeds Peanut Butter 2 Tablespoons 8 Peanuts cup 9 Almonds cup 8 Cashews cup 5 Pecans cup 2.5 [place] Seeds cup 6 Pumpkin Seeds cup 19 [...] If the bleeding does not stop, call [facility] [phone] or go to the Emergency Room. Signs/Symptoms of Infection: If you have any fever, chills, nausea, vomiting or increased odor, drainage, pain or redness to thewound, call [facility] at [phone]. If after hours, contact your family physician [...] oz cooked 22 Luna 1 slice 3 Japanese-style Luna (Back Luna) 1 slice 5-6 Eggs and Dairy Egg Large 6 Milk 1 cup 8 Cottage Cheese cup 15 Yogurt 1 cup 8-12 [place]ican Yogurt 6 oz 18 Soft Cheeses (Mozzarella, Brie) 1 oz 6 Medium Cheeses(Cheddar,Argentine) 1 oz 7-8 Hard Cheeses (Parmesan) 1 oz 10 Beans / Soy Tofu cup 10 Soy Milk 1 cup 6-10 Soy Beans cup cooked 14 Edamame cup 8-12 Most Beans (black, spear, lentils) cup cooked 7-10 Split Peas cup cooked 8 Nuts and Seeds Peanut Butter 2 Tablespoons 8 Peanuts cup 9 Almonds cup 8 Cashews cup 5 Pecans cup 2.5 [place] Seeds cup 6 Pumpkin Seeds cup 19 [...] next appointment. Medical Supplies were ordered through [employer], if you have any questions regarding your supply order, please contact their office directly @ [phone]. High Blood Pressure: If your blood pressure [...] If the bleeding does not stop, call [facility] [phone] or go to the Emergency Room. Signs/Symptoms of Infection: If you have any fever, chills, nausea, vomiting or increased odor, drainage, pain or redness to thewound, call [facility] at [phone]. If after hours, contact your family physician [...] oz cooked 22 Luna 1 slice 3 Japanese-style Luna (Back Luna) 1 slice 5-6 Eggs and Dairy Egg Large 6 Milk 1 cup 8 Cottage Cheese cup 15 Yogurt 1 cup 8-12 [place]ican Yogurt 6 oz 18 Soft Cheeses (Mozzarella, Brie) 1 oz 6 Medium Cheeses(Cheddar,Argentine) 1 oz 7-8 Hard Cheeses (Parmesan) 1 oz 10 Beans / Soy Tofu cup 10 Soy Milk 1 cup 6-10 Soy Beans cup cooked 14 Edamame cup 8-12 Most Beans (black, spear, lentils) cup cooked 7-10 Split Peas cup cooked 8 Nuts and Seeds Peanut Butter 2 Tablespoons 8 Peanuts cup 9 Almonds cup 8 Cashews cup 5 Pecans cup 2.5 [place] Seeds cup 6 Pumpkin Seeds cup 19 [...] Catalan Home Medication Instructions Prior to Surgery RICKI:[id number] Printed on:08/28/19 4229 Medication Information Take last dose on Take the morning of surgery Comment(s) adalimumab (HUMIRA) 40 mg/0.8 mL syringe Inject 40 mg under the skin every 14 (fourteen) days Reasons: rheumatoid arthritis. Stop today if not already stopped. Hold for six weeks after surgery or as directed by your wire coiler cholecalciferol, vitamin D3, (VITAMIN D3 ORAL) Take [...] stopped. Resume postop when ok with your wire coiler methotrexate 25 mg/mL injection 50 mg once [...] medications that contain aspirin, such as Patricia [place], Pepto- Bismol, Anacin), antiinflammatory medications such as Advil, Motrin, Ibuprofen, Naproxen, Aleve, Patricia [place], Pepto-Bismol, Anacin, Diclofenac, Voltaren, Daypro, Etodolac, Ketoprofen, Piroxicam, Relafen, Nabumetone, etc. Also discontinue Vitamin C, Vitamin E, [place]-3 Fatty Acid, Fish Oil or Lovaza, and [...] measure Discharge Instructions * Instructions* Alyssia Faria, [facility] - 02/26/2019 General Post-Operative Sheets for [...] the office to providea new prescription for brass pickler at the office and you will be notified when it is ready. Messages left for refills on or Monday may not be able to be given until that following Monday. No pain medication is refilled or prescribed over the weekend. Please keep this in mind when you start getting low on your medication. WITH THE NEW LAWS IN [place]ERNING THE PRESCIBED USE OF OPIODS WE [...] number at [facility] is: [phone]. - If you need to make a physical therapy appointment please call [facility] at: [phone] -If you leave a message after normal [...] on the weekends. If possible go to [facility] at [address] [place] [address] in [place]. POST OP INSTRUCTIONS - DR. ALMANZAR Activity [...] documented in this encounter* Instructions* Marilyn Ramirez, [facility] - 09/04/2019 General Post-Operative Sheets for Dr. [...] the office to providea new prescription for brass pickler at the office and you will be notified when it is ready. Messages left for refills on or Monday may not be able to be given until that following Monday. No pain medication is refilled or prescribed over the weekend. Please keep this in mind when you start getting low on your medication. WITH THE NEW LAWS IN [place] THE PRESCIBED USE OF OPIODS WE [...] Almanzar's office number at [facility] is: [phone]. - If you need to make a physical therapy appointment please call [facility] at: [phone] -If you leave a message after normal [...] on the weekends. If possible go to [facility] at [address] [facility] in [place]. TOTAL ELBOW POST OP INSTRUCTIONS - DR. [...] dressing changes to be every M-W- by [facility]. Pt to take pain medication 1 hour before dressing change. * Discharge Instr - Care Coordination* Gera York LSW - 10/14/2019 3:35 PM EST Home Health Care Services: [facility] P: [phone] F: [phone] * Additional Instructions* Marzena Wiley, [facility] - 10/14/2019 General Post-Operative Sheets for Dr. [...] the office to providea new prescription for brass pickler at the office and you will be notified when it is ready. Messages left for refills on or Monday may not be able to be given until that following Monday. No pain medication is refilled or prescribed over the weekend. Please keep this in mind when you start getting low on your medication. WITH THE NEW LAWS IN [place] THE PRESCIBED USE OF OPIODS WE [...] number at [facility] is: [phone]. - If you need to make a physical therapy appointment please call [facility] at: [phone] -If you leave a message after normal [...] on the weekends. If possible go to [facility] at [address] [place] [address] in [place]. POST OP INSTRUCTIONS - DR. ALMANZAR Activity [...] 911 documented in this encounter* Instructions* Lissa Dangelo, [facility] - 04/06/2020 General Post-Operative Sheets for Dr. [...] the office to providea new prescription for brass pickler at the office and you will be notified when it is ready. Messages left for refills on or Monday may not be able to be given until that following Monday. No pain medication is refilled or prescribed over the weekend. Please keep this in mind when you start getting low on your medication. WITH THE NEW LAWS IN [place] THE PRESCIBED USE OF OPIODS WE [...] number at [facility] is: [phone]. - If you need to make a physical therapy appointment please call AT at: [phone] -If you leave a message after normal [...] on the weekends. If possible go to [facility] at [address] [facility] in [place]. UPPER EXTREMITY REPAIR SURGERY POST OP INSTRUCTIONS [...] regular office hours or go to the [place] ER if after hours if you: -Signs [...] if you do not already have one, [phone]. 1ST POST OP APPT: 1ST PT APPT: [...] your doctor if you can take an hlzq-jti-yncyvqf medicine. 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 documented in this encounter* Rose Mendoza CNP - 04/23/2019 2:43 PM EDT Associated Order(s): Wound Debridement Post-Procedure Diagnose(s): Skin ulcer of elbow with fat layer exposed (HCC) WOUND CARE PROVIDER PROGRESS NOTE Patient Name: Elsa Catalan MR #: [id number] : 1960 ASSESSMENT, PLAN, & ORDERS: Goals [...] / Therapies: DSD prior to coming to [facility]. Severity: Full thickness, Duration: 02/27/19 Timing: [...] % 1-25% 04/23/2019 3:00 PM Granulation % 1-25%;[place] 04/23/2019 3:00 PM Exposed Structure None 04/23/2019 [...] to verify the correct patient, procedure, equipment, business support and site/side marked as required Timeout performed: [...] HEAD EXCISION; Surgeon: Ayde Almanzar DO; Location: [facility] Main OR; Service: Orthopedic HYSTERECTOMY Still has [...] file Gets together: Not on file Attends mosque service: Not on file Active member of [...] NOTE Patient Name: Elsa Catalan MR #: [id number] : 1960 ASSESSMENT, PLAN, & ORDERS: Goals [...] / Therapies: DSD prior to coming to [facility]. Severity: Full thickness, Duration: 02/27/19 Timing: [...] HEAD EXCISION; Surgeon: Ayde Almanzar DO; Location: [facility] Main OR; Service: Orthopedic HYSTERECTOMY Still has [...] file Gets together: Not on file Attends mosque service: Not on file Active member of club or organization: Not on file Attends meetings of clubs or organizations: Not on file Relationship status: Not on file Other Topics Concern Not on file Social History Narrative Not on file Family History Problem Relation Age of Onset Heart disease Mother Arthritis Father Asthma Father Diabetes Father Rose Mendoza ELECTRONIC IMAGER Electronically signed by the above provider 04/30/19 [...] NOTE Patient Name: Elsa Catalan MR #: [id number] POD # 1 - Pt HD stable, [...] daily dressing changes with adaptic, ABD and HUOG wrap POD#2 - PT consulted for ROM elbow/wrist/hand BID - Ortho stable - Questions answered. Patient and family updated at bedside - [facility] following for medical management/appreciate recs Plan discussed with Dr. Almanzar. DISPO: Likely discharged home later today once seen by PT and stable per [facility] Subjective: Perpetual Assessment: POD #1 . Patient [...] reviewed Jackie Torres CNP Department of Surgery [phone] Also available on [employer] 08/26/19 8:13 AM * Meenakshi Lim RN [...] PM EST Xray done at bedside. Dr. iQu at bedside and updated with FSBS and SBP/DBP. Pt reporting no pain. Ok to administer ordered Labetalol. documented in this encounter* Pepe Oropeza RN - 10/14/2019 5:22 PM EST 2 scripts sent home. Pt refused review of AVS and wheelchair downstairs. * Marzena Wiley, ELECTRONIC IMAGER - 10/14/2019 1:07 PM EST DAILY PROGRESS NOTE Patient Name: Elsa Catalan MR #: [id number] Hospital Course: No notes on file Assessment/Plan: [...] Marx MD - 10/14/2019 1:04 PM EST [facility] DAILY PROGRESS NOTE Assessment and Plan Elsa [...] which have been restarted Consider involving her Passenger Service Representative to discuss risks/benefits DM Lantus with sliding [...] Ayde Lepe DO - 10/14/2019 12:48 PM ABDELRAHMAN Elsa Catalan 59 y.o. female Subjective: S/P [...] the [facility] office ([phone]) and spoke with Meeta. She stated that she has put a note on the case to request that it be expedited. 1:28 pm: GLORIA spoke with Susana at [facility]. Susana stated that she was currently reviewing case and needed to see if they were able to accept from a staffing perspective. Susana will provide response to GLORIA. 11:28 am: Wound vac order submitted and prescription faxed. GLORIA met with pt in pt's room. Pt reported that she thought that [facility] serviced her area. She believes that she utilized [facility] 7 years ago. GLORIA checked with [facility] liaison, but [facility] does not service pt's home area. GLORIA made referral to [facility]. They report that they do service this area. Await response regarding ability to accept. Discharge Planning Living Arrangements: Spouse/significant other Support Systems: Spouse/significant other Assistance Needed: min Type of Residence: Private residence Prior to Admission Home Care Services: No Discharge Readiness Expected Discharge Date: 10/14/19 Barriers to Discharge: Pre-certification [facility] Disposition D/C Disposition: Home Health Care [...] f/u on Monday re: outcome. Pt has [employer] insurance. SW will need to f/u with pt re: HH RN for wound vac/dressing change needs. She lives in [place]. Discharge Readiness Expected Discharge Date: 10/14/19 Barriers to Discharge: Pre-certification [facility] Disposition D/C Disposition: Home Health Care Services Related to Current Admission?: Yes Agency/Destination: Other(TBD) HME: Other (Comment)(wound vac) HME Agency: Other (Comment)([facility]) * Ja Yang DO - 10/13/2019 3:29 PM EST [facility] DAILY PROGRESS NOTE Assessment and Plan Elsa [...] which have been restarted Consider involving her Passenger Service Representative to discuss risks/benefits DM Lantus with sliding [...] AM EST Dressing supplies ordered today through [facility] * Cathy Deleon RN - 10/08/2019 [...] NOTE Patient Name: Elsa Catalan MR #: [id number] : 1960 ASSESSMENT, PLAN, & ORDERS: Goals [...] / Therapies: DSD prior to coming to [facility]. Severity: Full thickness, Duration: 09/03/19 Timing: [...] to verify the correct patient, procedure, equipment, business support and site/side marked as required Timeout performed: [...] HEAD EXCISION; Surgeon: Ayde Almanzar DO; Location: [facility] Main OR; Service: Orthopedic ARTHROPLASTY ELBOW TOTAL Left 09/04/2019 Procedure: LEFT TOTAL ELBOW ARTHROPLASTY WITH ULNAR NERVE RELEASE WITH ANTERIOR TRANSPOSITION, EXCISION RADIAL HEAD; Surgeon: Ayde Almanzar DO; Location: [facility] Main OR; Service: Orthopedic HYSTERECTOMY Still has [...] file Gets together: Not on file Attends mosque service: Not on file Active member of club or organization: Not on file Attends meetings of clubs or organizations: Not on file Relationship status: Not on file Other Topics Concern Not on file Social History Narrative Not on file Family History Problem Relation Age of Onset Heart disease Mother Arthritis Father Asthma Father Diabetes Father Heart disease Father Rose Mendoza, ELECTRONIC IMAGER Electronically signed by the above provider 10/08/19 [...] subsequent encounter Nusrat Marx MD [address] [place] [address] Specialty Diagnoses / Procedures Referred By Contac t Referred To Contact [facility] Diagnoses Abnormality of gait Procedures CONSULT TO PHYSICAL THERAPY PHYSICAL THERAPY EVALUATION HIGH COMPLEX 45 MINS Pepe Carter MD [address] [place] [address] [facility] [place] [address] [place] [address] Referral ID Status Reason Start Date Expiration Date Visits Requested Visits Authorized [id number] Pending Review Auto-Generat ed Referral 11/23/2023 11/22/2024 1 1 Specialty Diagnoses / Procedures Referred By Contac t Referred To Contact Orthopedics Diagnoses Trigger middle finger of right hand Bilateral hand pain Chronic elbow pain, right Procedures CONSULT TO ORTHOPAEDICS OFFICE/OUTPATIENT [facility] MDM 60 MINUTES Pepe Carter MD [address] [place] [address] [place] [address] [place] [address] Referral ID Status Reason Start Date Expiration Date Visits Requested Visits Authorized [id number] Authorized PCP Requested Referral 05/18/2024 05/18/2025 1 1 Specialty Diagnoses / Procedures Referred By Contac t Referred To Contact XR IMAGING Diagnoses Trigger middle finger of right hand Bilateral hand pain Procedures XR HAND GENERAL 3V PA/LAT/OBL BILATERAL RADEX HAND MINIMUM 3 VIEWS Pepe Carter MD [address] [place] [address] [place] [address] Referral ID Status Reason Start Date Expiration Date Visits Requested Visits Authorized [id number] Authorized Auto-Generat ed Referral 05/18/2024 06/17/2025 1 1 Specialty Diagnoses / Procedures Referred By Contac t Referred To Contact XR IMAGING Diagnoses Postmenopausal osteoporosis of multiple sites Procedures DXA-AXIAL SKELETON Pepe Carter MD [address] [place] [address] [place] [address] Referral ID Status Reason Start Date Expiration Date Visits Requested Visits Authorized [id number] Authorized Auto-Generat ed Referral 05/18/2024 06/17/2025 1 1 Specialty Diagnoses / Procedures Referred By Contac t Referred To Contact XR IMAGING Diagnoses Postmenopausal osteoporosis of multiple sites Procedures DXA-FOREARM SKELETON DXA BONE DENSITY STUDY 1/>SITES APPENDICLR SKEL Pepe Carter MD [address] [place] [address] [place] [address] Referral ID Status Reason Start Date Expiration Date Visits Requested Visits Authorized [id number] Authorized Auto-Generat ed Referral 05/18/2024 06/17/2025 1 1 Specialty Diagnoses / Procedures Referred By Contac t Referred To Contact Diagnoses Postmenopausal osteoporosis of multiple sites Personal history of (healed) other pathological fracture Pepe Carter MD [address] [place] [address] Referral ID Status Reason Start Date Expiration Date Visits Re quested Visits Authorized [id number] Closed 1 1 Additional Source Comments INFORMATION SOURCE (unrecogn ized section and content) DATE CREATED AUTHOR 03/28/2018 [facility] DATE CREATED AUTHOR AUTHOR'S ORGANIZ ATION 10/08/2019 [facility] DATE CREATED AUTHOR AUTHOR'S ORGANIZ ATION 10/14/2019 [facility] DATE CREATED AUTHOR AUTHOR'S ORGANIZ ATION 04/19/2020 [facility] DATE CREATED AUTHOR AUTHOR'S ORGANIZ ATION 04/24/2020 [facility] DATE CREATED AUTHOR AUTHOR'S ORGANIZ ATION 05/28/2021 [facility] DATE CREATED AUTHOR AUTHOR'S ORGANIZ ATION 09/18/2021 [facility] DATE CREATED AUTHOR AUTHOR'S ORGANIZ ATION 09/19/2021 [facility] DATE CREATED AUTHOR AUTHOR'S ORGANIZ ATION 12/10/2022 [facility] DATE CREATED AUTHOR AUTHOR'S ORGANIZ ATION 09/23/2024 [facility] DATE CREATED AUTHOR AUTHOR'S ORGANIZ ATION 10/13/2024 [facility] EPIC Reason for Visit [...] Up Specialty Diagnoses / Procedures Referred By Ayushac chaitanya Referred To Contact Physical Therapy Diagnoses Other osteoporosis with current pathological fracture, right femur, subsequent encounter for fracture with routine healing Procedures [place] PHYSICAL THERAPY EVALUATION LOW COMPLEX 20 MINS Pretty Fermin MD [address] [place] [address] [address] [facility] [place] [address] Referral ID Status Reason Start Date Expiration Date V isits Requested Visits Authorized [id number] Authorized 07/11/2024 08/11/2024 8 8 Reason Onset Date Comments PT Auth received 08/08/2024 Tried to contac t, but had to lm, noting we had received PT auth dated 08/12- 09/11/24 w/ 8 more PT's given. Requested call back. Call Back 08/08/2024 She called and sue rodriges scheduled out her PT per AUTH received; noted copay is still due. Reason Comments Diabetes Follow-up Reason Comments Pain Ongoing generalized pain. Reason Onset Date Comments Refill Request 05/14/2024 Sveta Silva, DO - 02/21/2019 12:53 PM [...] WITH ANTERIOR TRANSPOSITION, RADIAL HEAD EXCISION AT [facility] OR [facility] pending laboratory/cervical spine x-ray series. Creatinine, [...] acceptable cardiac risk based on the 2014 [place] College of Cardiology/[place] Heart Association (ACC/AHA) guideline on Perioperative Cardiovascular [...] stress dose glucocorticoids are not indicated. 2017 [place] College of Rheumatology/[place] Association of Hip and Knee Surgeons Guideline for the Perioperative Management of Antirheumatic Medication in Patients With Rheumatic Diseases Undergoing Elective Total Hip or Total Knee Arthroplasty. Arthritis Care & Research Vol. 69, No. 8, May 2017, pp 2197-4529 DOI 10.1002/acr.89619 9. Fibromyalgia Controlled on gabapentin take a.m. day of surgery. 10. PONV (postoperative nausea and vomiting) [place] use of pre/postoperative antiemetics recommended. 11. No contraindication to deep vein thrombosis (DVT) prophylaxis Deep venous thrombosis prophylaxis per primary service. Recommend: 2011 Antithrombotic therapy for VTE disease: Antithrombotic Therapy and Prevention of Thrombosis, 9th ed: [place] [employer]icians Evidence- Based Clinical Practice Guidelines. Chief Complaint Patient presents with Pre-operative Medical Risk Stratification History of Present Illness Elsa Catalan is a 58 y.o. female who presents for preoperative medical risk stratification consult at the request of Ayde Almanzar DO prior to 02/27; RIGHT TOTAL ELBOW ARTHROPLASTY, ULNAR NERVE RELEASE WITH ANTERIOR TRANSPOSITION, RADIAL HEAD EXCISION AT [facility] OR [facility]. Pt states she has rheumatoid arthritis [...] Arrhythmia 02/21/2019 Bleeding disorder (HCC) 02/20/2019 [facility] ([facility] 02/21/2019 Coronary artery disease 02/20/2019 Deep vein thrombosis (HCC) 02/21/2019 Diabetes mellitus type I (HCC) 02/21/2019 Hard to intubate 02/21/2019 History of blood transfusion 02/21/2019 History of cardiac cath 02/21/2019 History of echocardiogram 02/21/2019 History of stress test 02/20/2019 Malignant hyperthermia due to anesthesia 02/21/2019 Myocardial infarction (HCC) 02/21/2019 No blood products 02/21/2019 Pulmonary embolism (HCC) 02/21/2019 Sleep apnea, obstructive 02/20/2019 Stroke ([facility]) 02/21/2019 Past Surgical History: Procedure [...] Elsa Catalan Admit Date: [id number] MR #: [id number] : 1960 The H&P has been reviewed [...] WITH ANTERIOR TRANSPOSITION, RADIAL HEAD EXCISION AT [facility] OR [facility] pending laboratory/cervical spine x-ray series. Creatinine, [...] acceptable cardiac risk based on the 2014 [place] [employer] Cardiology/[place] [employer] Association (ACC/AHA) guideline on Perioperative Cardiovascular [...] stress dose glucocorticoids are not indicated. 2017 [place] College of Rheumatology/[place] Association of Hip and Knee Surgeons Guideline for the Perioperative Management of Antirheumatic Medication in Patients With Rheumatic Diseases Undergoing Elective Total Hip or Total Knee Arthroplasty. Arthritis Care & Research Vol. 69, No. 8, May 2017, pp 8493-5742 DOI 10.1002/acr.12986 9. Fibromyalgia Controlled on gabapentin take a.m. day of surgery. 10. PONV (postoperative nausea and vomiting) [place] use of pre/postoperative antiemetics recommended. 11. No contraindication to deep vein thrombosis (DVT) prophylaxis Deep venous thrombosis prophylaxis per primary service. Recommend: 2011 Antithrombotic therapy for VTE disease: Antithrombotic Therapy and Prevention of Thrombosis, 9th ed: [place] [employer]icians Evidence- Based Clinical Practice Guidelines. Chief Complaint Patient presents with Pre-operative Medical Risk Stratification History of Present Illness Elsa Catalan is a 58 y.o. female who presents for preoperative medical risk stratification consult at the request of Ayde Almanzar DO prior to 02/27; RIGHT TOTAL ELBOW ARTHROPLASTY, ULNAR NERVE RELEASE WITH ANTERIOR TRANSPOSITION, RADIAL HEAD EXCISION AT [facility] OR [facility]. Pt states she has rheumatoid arthritis [...] 02/21/2019 Sleep apnea, obstructive 02/20/2019 Stroke ([facility]) 02/21/2019 Past Surgical History: Procedure [...] Elsa Catalan Admit Date: [id number] MR #: [id number] : 1960 The H&P has been reviewed [...] of Dr. Almanzar prior to 09/04 at [facility], LEFT TOTAL ELBOW ARTHROPLASTY WITH ULNAR NERVE [...] many years duration follows with pcp and wire coiler on multiple dmards -IDDMII, several years, followed [...] Date Noted Anemia 02/21/2019 Angina pectoris ([facility]) 02/21/2019 Arrhythmia 02/21/2019 Atrial fibrillation ([facility]) 08/28/2019 Bleeding disorder (HCC) 02/20/2019 Cancer ([facility]) 02/21/2019 CHF (congestive heart failure) ([facility]) 08/28/2019 Coronary artery disease 02/20/2019 Deep vein thrombosis ([facility]) 02/21/2019 Diabetes mellitus type I ([facility]) 02/21/2019 Edema 08/28/2019 Hard to intubate 02/21/2019 Heart murmur 08/28/2019 Heart valve disease 08/28/2019 History of blood transfusion 02/21/2019 History of cardiac cath 02/21/2019 History of echocardiogram 02/21/2019 History of stress test 02/20/2019 Malignant hyperthermia due to anesthesia 02/21/2019 Myocardial infarction (HCC) 02/21/2019 No blood products 02/21/2019 Pulmonary embolism (HCC) 02/21/2019 Sleep apnea, obstructive 02/20/2019 Stroke ([facility]) 02/21/2019 Past Surgical History: Procedure Laterality Date ARTHROPLASTY ELBOW TOTAL Right 02/27/2019 Procedure: RIGHT TOTAL ELBOW ARTHROPLASTY, ULNAR NERVE RELEASE WITH ANTERIOR TRANSPOSITION, RADIAL HEAD EXCISION; Surgeon: Ayde Almanzar DO; Location: [facility] Main OR; Service: Orthopedic HYSTERECTOMY Still has [...] 12 inches Recent Results (from the past 10438 hours) XR ELBOW RIGHT 3+ VIEWS (STANDARD) [...] surgery. COMPARISON: Right elbow radiographs 07/21/2016 from [facility]. FINDINGS: Three views of the right elbow [...] A nondisplaced fracture is considered less likely. JRS/[facility] Workstation ID: [id number] documented in this encounter INTERVAL HISTORY AND PHYSICAL Patient Name: Elsa Catalan Admit Date: MR #: [id number] : 1960 The H&P has been reviewed and the patient has been examined. I concur with the findings of the H&P. There are no significant changes. It is appropriate to proceed with the planned procedure. Ayde Almanzar DO 10/13/2019 9:03 AM [facility] HISTORY AND PHYSICAL Patient Name: Elsa Catalan : 1960 MR #: [id number] Admit Date: Physicians: Pretty Fermin MD (Family); [...] which have been restarted Consider involving her Passenger Service Representative to discuss risks/benefits DM Lantus with sliding scale insulin. Dose adjusted for this evening Hypothyroid Synthroid HLD Statin Admitted From: Home Medication Reconciliation: Verified Code Status: Full Code Quality Measures DVT Prophylaxis: Ambulate - lovenox if stay prolonged/ok with ortho Hickey Catheter: none Disposition Outpatient Testing: NA Chief Complaint Non healing wound History of Present Illness Patient was directed to [place] for admission per her orthopedic surgeon. She [...] HEAD EXCISION; Surgeon: Ayde Almanzar DO; Location: [facility] Main OR; Service: Orthopedic ARTHROPLASTY ELBOW TOTAL Left 09/04/2019 Procedure: LEFT TOTAL ELBOW ARTHROPLASTY WITH ULNAR NERVE RELEASE WITH ANTERIOR TRANSPOSITION, EXCISION RADIAL HEAD; Surgeon: Ayde Almanzar DO; Location: [facility] Main OR; Service: Orthopedic HYSTERECTOMY Still has [...] Name: Elsa Catalan Admit Date: MR #: [id number] : 1960 The H&P has been reviewed [...] WITH MANIPULATION UNDER ANESTHESIA on 04-08-20 at [facility]. Patient states she had a left elbow [...] failed other treatments. Based on questioning at [facility] - patient has no current signs [...] Date Noted Anemia 02/21/2019 Angina pectoris ([facility]) 02/21/2019 Arrhythmia 02/21/2019 Atrial fibrillation ([facility]) 08/28/2019 Bleeding disorder ([facility]) 02/20/2019 Cancer ([facility]) 02/21/2019 CHF (congestive heart failure) ([facility]) 08/28/2019 Coronary artery disease 02/20/2019 Deep vein thrombosis ([facility]) 02/21/2019 Diabetes mellitus type I ([facility]) 02/21/2019 Edema 08/28/2019 Hard to intubate 02/21/2019 Heart murmur 08/28/2019 Heart valve disease 08/28/2019 History of blood transfusion 02/21/2019 History of cardiac cath 02/21/2019 History of echocardiogram 02/21/2019 History of stress test 02/20/2019 Malignant hyperthermia due to anesthesia 02/21/2019 Myocardial infarction ([facility]) 02/21/2019 No blood products 02/21/2019 Pulmonary embolism ([facility]) 02/21/2019 Sleep apnea, obstructive 02/20/2019 Stroke ([facility]) 02/21/2019 Past Surgical History: Procedure Laterality Date ARTHROPLASTY ELBOW TOTAL Right 02/27/2019 Procedure: RIGHT TOTAL ELBOW ARTHROPLASTY, ULNAR NERVE RELEASE WITH ANTERIOR TRANSPOSITION, RADIAL HEAD EXCISION; Surgeon: Ayde Almanzar DO; Location: [facility] Main OR; Service: Orthopedic ARTHROPLASTY ELBOW TOTAL Left 09/04/2019 Procedure: LEFT TOTAL ELBOW ARTHROPLASTY WITH ULNAR NERVE RELEASE WITH ANTERIOR TRANSPOSITION, EXCISION RADIAL HEAD; Surgeon: Ayde Almanzar DO; Location: [facility] Main OR; Service: Orthopedic COLONOSCOPY HYSTERECTOMY Still has ovaries INCISION AND DRAINAGE UPPER EXTREMITY Left 10/13/2019 Procedure: INCISION AND DRAINAGE LEFT ELBOW WITH WOUND VAC APPLICATION; Surgeon: Ayde Almanzar DO; Location: [facility] Main OR; Service: Ortho-Robotics JOINT REPLACEMENT Right [...] 14.5 inches Recent Results (from the past 79084 hours) XR CHEST PA/AP 09/05/2019 (Final) Status: [...] of Dr. Almanzar prior to 09/04 at [facility], LEFT TOTAL ELBOW ARTHROPLASTY WITH ULNAR NERVE [...] many years duration follows with pcp and wire coiler on multiple dmards -IDDMII, several years, followed [...] (HCC) 08/28/2019 Bleeding disorder (HCC) 02/20/2019 Cancer ([facility]) 02/21/2019 CHF (congestive heart failure) ([facility]) 08/28/2019 Coronary artery disease 02/20/2019 Deep vein thrombosis ([facility]) 02/21/2019 Diabetes mellitus type I ([facility]) 02/21/2019 Edema 08/28/2019 Hard to intubate 02/21/2019 Heart murmur 08/28/2019 Heart valve disease 08/28/2019 History of blood transfusion 02/21/2019 History of cardiac cath 02/21/2019 History of echocardiogram 02/21/2019 History of stress test 02/20/2019 Malignant hyperthermia due to anesthesia 02/21/2019 Myocardial infarction ([facility]) 02/21/2019 No blood products 02/21/2019 Pulmonary embolism ([facility]) 02/21/2019 Sleep apnea, obstructive 02/20/2019 Stroke ([facility]) 02/21/2019 Past Surgical History: Procedure Laterality Date ARTHROPLASTY ELBOW TOTAL Right 02/27/2019 Procedure: RIGHT TOTAL ELBOW ARTHROPLASTY, ULNAR NERVE RELEASE WITH ANTERIOR TRANSPOSITION, RADIAL HEAD EXCISION; Surgeon: Ayde Almanzar DO; Location: [facility] Main OR; Service: Orthopedic HYSTERECTOMY Still has [...] 12 inches Recent Results (from the past 89965 hours) XR ELBOW RIGHT 3+ VIEWS (STANDARD) [...] surgery. COMPARISON: Right elbow radiographs 07/21/2016 from [facility]. FINDINGS: Three views of the right elbow [...] lab value of 407 Patient Instructions for [facility]: Prior to surgery: ? Please be sure to wear loose, comfortable clothing and non-skid shoes ? Bring your health insurance information and a photo ID, as well as your Living Will or Durable Power of [employer] for Healthcare if it is available to you. ? Bring your cane/walker any applicable assistive device. If you currently use a CPAP, please bring this device with you on the day of surgery. ? Bring a list of your medications with the name of the medication, dose and how often you are taking it. Be sure to include herbal preparations and hpay-bzh-[id number] medications on this list. ? Do not [...] of lotions, perfumes or powders. All nail ugandan is to be removed from fingernails and [...] day of your surgery/procedure. ? Parking at [facility] is free. Please park in the lot in front of the main lobby. Enter the Main Entrance where a Scientific Illustrator Liaison at the information desk will greet [...] of your surgery preparation process here at [facility]. It will provide you with additional important [...] AM: Laboratory, Medications and Transcriptions ELSA CATALAN [facility] [id number] N [id number] 1960 DATE 02/27/2019 OPERATIVE REPORT SURGEON AYDE ALMANZAR DO BAR STAFF ROCHELLE SALMERON PA-C PREOPERATIVE DIAGNOSES Right elbow: 1. Rheumatoid arthritis. 2. Ulnar nerve compression. POSTOPERATIVE DIAGNOSES Right elbow: 1. Rheumatoid arthritis. 2. Ulnar nerve compression. PROCEDURE Right elbow: 1. Total elbow arthroplasty using the [employer]/Morrey total elbow system with an extra small cemented humeral component and an extra small ulnar component, 05074. 2. Ulnar nerve release with anterior transposition, 65905. 3. Excision of radial head, 38844. ANESTHESIA General with regional block. FLUIDS Crystalloid. [...] stable condition. I did utilize my physician patient assistant, Rochelle Salmeron, throughout the case. He was an integral part of the case, helped position the patient, assisted throughout the case as well as closure of the wounds, and helped transfer the patient to postanesthesia care unit. He was an integral part of the case. AYDE ALMANZAR DO D 02/27/2019 19:02 [id number] T 02/28/2019 01:19 TJK/MODL Pt oriented to [...] up to see patient. LRAHMAN ELSA CATALAN [facility] [id number] N [id number] 1960 DATE 09/04/2019 OPERATIVE REPORT SURGEON AYDE ALMANZAR DO BAR STAFF ROCHELLE SALMERON PA-C PREOPERATIVE DIAGNOSES Left elbow: 1. Rheumatoid arthritis. 2. Cubital tunnel syndrome. POSTOPERATIVE DIAGNOSES Left elbow: 1. Rheumatoid arthritis. 2. Cubital tunnel syndrome. PROCEDURE Left elbow: 1. Total elbow arthroplasty using Iam Coonrad/Morrey total elbow system with a size extra small cemented humerus and a size extra small cemented ulna, 55472. 2. Excision of radial head, 40111. 3. Ulnar nerve release and anterior transposition, 81524. ANESTHESIA General with regional block. FLUIDS Crystalloid. [...] stable condition. I did utilize my physician patient assistant, Rochelle Salmeron, throughout the case. He was an integral part of the case, helped position the patient, assist throughout, as well as closure of wounds, and helped transfer the patient to the postanesthesia care unit. AYDE ALMANZAR DO D 09/04/2019 21:29 [id number] T 09/05/2019 00:28 TJK/MODL Central [facility] Utilization Review Notes DIAGNOSIS:M06.9; M24.522 NEED FOR SURGERY:M06.9; M24.522 DATE OF PROCEDURE: 09/04/2019 PROCEDURE: LEFT TOTAL ELBOW ARTHROPLASTY WITH ULNAR NERVE RELEASE WITH ANTERIOR TRANSPOSITION, EXCISION RADIAL HEAD POST OP COMPLICATIONS: none DISPOSITION: TBD POST OP Brief Post Operative Note Patient Name: Elsa Catalan : 1960 (59 y.o.) Date of Service: 09/04/2019 [facility]: [id number] Procedure(s): LEFT TOTAL ELBOW ARTHROPLASTY WITH ULNAR NERVE RELEASE WITH ANTERIOR TRANSPOSITION, EXCISION RADIAL HEAD Pre-Operative Diagnoses: * M06.9; M24.522 Post-Operative Diagnoses: Surgeon(s) and Role: * Ayde Almanzar DO - Primary Anesthesiologist: Asim Qiu MD Senior Systems Analyst: Stephanie Retana RN Physician Solar Designer: Rochelle Salmeron PA-C Professor Of Philosophy: Kristin Padilla, TECHNOLOGIST Senior Systems Analyst Relief: Aimee Dietz RN Relief Scrub: ST Leonardo Scrub Person: ST Sue Scrub Person Assist: Stewart Scruggs RN Operative findings: see report Intra and immediate post-operative complications: none Type of anesthesia used: Regional, General Estimated blood loss: 100 mL Estimated urine output: 0 mL Specimen(s): * No specimens in log * Implant(s): Implant Name Type Inv. Item Serial No. Marble Coper Lot No. LRB No. Used Action PLUG 8-10MM SM IM CANAL - [id number] PLUG 8-10MM SM IM CANAL BIOMET INC [id number] Left 1 Implanted CEMENT BONE ANTIBIOTIC SIMPLEX P W/TOBRAMYCIN SINGLE DOSE - [id number] Cement CEMENT BONE ANTIBIOTIC SIMPLEX P W/TOBRAMYCIN SINGLE DOSE INGRID OR [id number] Left 2 Implanted ALICIA/MORREY TOTAL ELBOW INTERCHANGEABLE HUMERAL ASSEMBLY EXTRA SMALL 4 INCH LENGTH IAM BIO [id number] Left 1 Implanted COONRAD/MORREY TOTAL ELBOW INTERCHANGEABLE ULNAR ASSEMBLY EXTRASMALL LEFT 3 INCH IAM BIO [id number] Left 1 Implanted PLUG 8MM CEMENT SM DIAMETER - [id number] PLUG 8MM CEMENT SM DIAMETER BIOMET INC [id number] Left 1 Implanted PLUG 8-10MM SM IM CANAL - [id number] PLUG 8-10MM SM IM CANAL BIOMET INC [id number] Left 1 Explanted Drain(s): * No LDAs [...] 10/14/19 1:21 PM: Laboratory and Microbiology [place] [id number] 1960 DATE 10/13/2019 OPERATIVE REPORT SURGEON AYDE ALMANZAR, BAR STAFF ROCHELLE SALMERON PA-C PREOPERATIVE DIAGNOSES Left elbow: [...] and deep fascia as well as muscle, 85802. 2. Wound vacuum-assisted closure pressure device, a 14 x 7 x 1 cm wound, 53104. ANESTHESIA General. FLUIDS Crystalloid. ESTIMATED BLOOD LOSS [...] the joint. I did utilize my physician patient assistant, Rochelle Salmeron, throughout the case. He was an integral part of the case, helped position the patient, assist throughout the case as well as closure of the wound, help transfer the patient to postanesthesia care unit. AYDE ALMANZAR DO D 10/13/2019 11:50 [id number] T 10/13/2019 15:11 TJK/MODL Brief Post Operative Note Patient Name: Elsa Catalan : 1960 (59 y.o.) Date of Service: 10/13/2019 [facility]: [id number] Procedure(s): INCISION AND DRAINAGE LEFT ELBOW WITH WOUND VAC APPLICATION Pre-Operative Diagnoses: * UNKNOWN Post-Operative Diagnoses: Surgeon(s) and Role: * Ayde Almanzar DO - Primary Anesthesiologist: Lazrao Alvarez MD Senior Systems Analyst: Aimee Dietz RN Physician Solar Designer: Rochelle Salmeron PA-C Scrub Person: Anastasiia Gurrola [...] AM documented in this encounter ELSA CATALAN [facility] [id number] N [id number] 1960 DATE 04/08/2020 OPERATIVE REPORT SURGEON AYDE ALMANZAR DO BAR STAFF ROCHELLE SALMERON PA-C BAR STAFF 2 PEGGY MOSES CNP PREOPERATIVE DIAGNOSIS Left elbow. 1. Ulnar neuropathy. 2. Contracture. 3. Status post total elbow arthritis. POSTOPERATIVE DIAGNOSIS Left elbow. 1. Ulnar neuropathy. 2. Contracture. 3. Status post total elbow arthritis. PROCEDURE Left elbow. 1. Open excision of bone, soft tissue, and capsule with releases; 90374. 2. Ulnar nerve release with anterior transposition; 86903. ANESTHESIA General with regional block. FLUIDS Crystalloid. [...] stable condition. I did utilize my physician patient assistant, Rochelle Salmeron, and my nurse practitioner [...] year. AYDE ALMANZAR DO D 04/08/2020 13:56 [id number] 04/08/2020 14:38 TJK/MODL Brief Post Operative Note Patient Name: Elsa Catalan : 1960 (59 y.o.) Date of Service: 04/08/2020 [facility]: [id number] Procedure(s): LEFT ELBOW ULNAR NERVE RELEASE WITH ANTERIOR TRANSPOSITION, TENDON LENGTHENING, CAPSULAR RELEASE WITH MANIPULATION UNDER ANESTHESIA Pre-Operative Diagnoses: * G56.22 Post-Operative Diagnoses: Surgeon(s) and Role: * Ayde Almanzar DO - Primary Anesthesiologist: Hiram Lucas MD PHYSICIAN OFFICE CLIN ASST: Stewart Mckeon CRNA Senior Systems Analyst: Spring Odonnell RN Physician Solar Designer: Rochelle Salmeron PA-C Senior Systems Analyst Relief: Miranda Randall RN Scrub Person: Cezar LopezST Senior Systems Analyst Orientee: Sherrill Santamaria RN Nurse Float: Suri [...] documented in this encounter Patient Instructions for [facility]: Prior to surgery: ? Please be sure to wear loose, comfortable clothing and non-skid shoes ? Bring your health insurance information and a photo ID, as well as your Living Will or Durable Power of [employer] for Healthcare if it is available to you. ? Bring your cane/walker any applicable assistive device. If you currently use a CPAP, please bring this device with you on the day of surgery. ? Bring a list of your medications with the name of the medication, dose and how often you are taking it. Be sure to include herbal preparations and ixmy-cav-rsihjmg medications on this list. ? Do not [...] of lotions, perfumes or powders. All nail ugandan is to be removed from fingernails and [...] day of your surgery/procedure. ? Parking at [facility] is free. Please park in the lot in front of the main lobby. Enter the Main Entrance where a Scientific Illustrator Liaison at the information desk will greet [...] Prior to Admission Home Care Services: No [facility] Disposition D/C Disposition: Home Occupational Therapy [...] roles. The patient's home setup is a table and desk finisher and family/caregiver support is a table and desk finisher for return to prior level of function. The patient's education level is a table and desk finisher, compliance is a table and desk finisher and awareness of own capacity and performance is a table and desk finisher to return to prior level of function. 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 On metformin and lantus at home, held while in hospital Resume lantus and start correctional humalog for now Hypothyroidism On levothyroxine at home, resumed Medication Reconciliation: Verified Quality Measures DVT Prophylaxis: per surgery Hickey Catheter: placed pre-op Disposition Discharge Location: from home, independent Estimated Discharge Date: per surgery Outpatient Testing: undetermined Chief Complaint [facility] consulted by Ayde Almanzar DO for diabetes [...] a barrier and family/caregiver support is a table and desk finisher for return to prior level of function. The patient's education level is a table and desk finisher, compliance is a table and desk finisher and awareness of own capacity and performance is a table and desk finisher to return to prior level of function. [...] January. 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) Past Medical History: Diagnosis Date Asthma [...] HEAD EXCISION; Surgeon: Ayde Almanzar DO; Location: [facility] Main OR; Service: Orthopedic HYSTERECTOMY Still has [...] No Associated Order(s): IP CONSULT TO HOSPITALIST [facility] CONSULTATION NOTE Patient Name: Elsa Catalan : 1960 MR #: [id number] Admit Date: [id number] Physicians: Pretty Fermin MD [...] Outpatient Testing: TBD per primary Chief Complaint [facility] consulted by Ayde Almanzar DO for medical [...] HEAD EXCISION; Surgeon: Ayde Almanzar DO; Location: [facility] Main OR; Service: Orthopedic HYSTERECTOMY Still has [...] HOSPITAL that wound vac has been approved. [facility] met with patient and spouse at bedside and [facility] ReadyVac delivered to patient's room (serial number [id number]). Proof of delivery form faxed back to [facility]. [facility] placed call to [facility] who reports they are unable to accept patient due to staffing. GLORIA [facility] ([phone][facility] and per intake they can not accept patient due to staffing. [facility] placed call to [facility] ([phone], f [phone]) who reports they can accept patient. Referral faxed and Day of Discharge Bundle faxed to intake at [facility]. Notified patient and spouse. AVS and orders updated. Notified RN. Discharge Planning Living Arrangements: Spouse/significant other Support Systems: Spouse/significant other Assistance Needed: min Type of Residence: Private residence Prior to Admission Home Care Services: No Discharge Readiness Expected Discharge Date: 10/14/19 Barriers to Discharge: Pre-certification [facility] Disposition D/C Disposition: Home Health Care Services Related to Current Admission?: Yes Agency/Destination: Other([facility]) Home Care Needs : [...] roles. The patient's home setup is a table and desk finisher and family/caregiver support is a table and desk finisher for return to prior level of function. The patient's education level is a table and desk finisher, compliance is a table and desk finisher and awareness of own capacity and performance is a table and desk finisher to return to prior level of function. [...] Accessible Prior Level of Function Level of [place]: Independent with ADLs and functional transfers, Independent [...] HEAD EXCISION; Surgeon: Ayde Almanzar DO; Location: [facility] Main OR; Service: Orthopedic ARTHROPLASTY ELBOW TOTAL Left 09/04/2019 Procedure: LEFT TOTAL ELBOW ARTHROPLASTY WITH ULNAR NERVE RELEASE WITH ANTERIOR TRANSPOSITION, EXCISION RADIAL HEAD; Surgeon: Ayde Almanzar DO; Location: [facility] Main OR; Service: Orthopedic HYSTERECTOMY Still has ovaries INCISION AND DRAINAGE UPPER EXTREMITY Left 10/13/2019 Procedure: INCISION AND DRAINAGE LEFT ELBOW WITH WOUND VAC APPLICATION; Surgeon: Ayde Almanzar DO; Location: [facility] Main OR; Service: Ortho-Robotics JOINT REPLACEMENT Right [...] Female SW received c/s earlier today from [facility] sharing that pt would be admitted from [...] Discharge Date: 10/14/19 Barriers to Discharge: Pre-certification [facility] Disposition D/C Disposition: Home Health Care Services Related to Current Admission?: Yes Agency/Destination: Other(TBD) CONSULT NOTE Patient Name: Elsa Catalan Admit Date: MR #: [id number] : 1960 Physicians: Pretty Fermin MD (Family); [...] hematoma and skin necrosis. Wound care at [facility] not improving. Started having n/t ulnar nerve from irritation. Admitted by [facility]. Patient has RA on meds. History: Past [...] HEAD EXCISION; Surgeon: Ayde Almanzar DO; Location: [facility] Main OR; Service: Orthopedic ARTHROPLASTY ELBOW TOTAL Left 09/04/2019 Procedure: LEFT TOTAL ELBOW ARTHROPLASTY WITH ULNAR NERVE RELEASE WITH ANTERIOR TRANSPOSITION, EXCISION RADIAL HEAD; Surgeon: Ayde Almanzar DO; Location: [facility] Main OR; Service: Orthopedic HYSTERECTOMY Still has [...] file Gets together: Not on file Attends mosque service: Not on file Active member of [...] ESTAxline, TRAVON Ramsey - 10/12/2019 2:00 PM ESTTed Delvalle MD - 10/12/2019 1:32 PM [employer]Axline, TRAVON Ramsey - 10/12/2019 1:10 PM EST ED Notes (unrecognized secti on and content) environmental field technician notified Wet to dry dressing applied to right elbow, per Dr. Delvalle. [facility] NAME: Elsa Catalan Age: 59 y.o. CSN: [id number] PCP: Pretty Fermin MD Chief Complaint: Post-op [...] HEAD EXCISION; Surgeon: Ayde Almanzar DO; Location: [facility] Main OR; Service: Orthopedic ARTHROPLASTY ELBOW TOTAL Left 09/04/2019 Procedure: LEFT TOTAL ELBOW ARTHROPLASTY WITH ULNAR NERVE RELEASE WITH ANTERIOR TRANSPOSITION, EXCISION RADIAL HEAD; Surgeon: Ayde Almanzar DO; Location: [facility] Main OR; Service: Orthopedic HYSTERECTOMY Still has [...] file Gets together: Not on file Attends mosque service: Not on file Active member of [...] or prosecute any alcohol or drug abuse patient.[facility] [place]woodIn the event this information is protected by the Federal Confidentiality of Alcohol and Drug Abuse Patient Records regulations: The Federal rules restrict any use of the information to criminally investigate or prosecute any alcohol or drug abuse patient.[facility], BeachwoodIn the event this information is protected by the Federal Confidentiality of Alcohol and Drug Abuse Patient Records regulations: The Federal rules restrict any use of the information to criminally investigate or prosecute any alcohol or drug abuse patient.[facility] [place]woodIn the event this information is protected by the Federal Confidentiality of Alcohol and Drug Abuse Patient Records regulations: The Federal rules restrict any use of the information to criminally investigate or prosecute any alcohol or drug abuse patient.[facility] [place]woodIn the event this information is protected by the Federal Confidentiality of Alcohol and Drug Abuse Patient Records regulations: The Federal rules restrict any use of the information to criminally investigate or prosecute any alcohol or drug abuse patient.[facility] [place]woodIn the event this information is protected by the Federal Confidentiality of Alcohol and Drug Abuse Patient Records regulations: The Federal rules restrict any use of the information to criminally investigate or prosecute any alcohol or drug abuse patient.[facility] [place]woodIn the event this information is protected by the Federal Confidentiality of Alcohol and Drug Abuse Patient Records regulations: The Federal rules restrict any use of the information to criminally investigate or prosecute any alcohol or drug abuse patient.[facility] [place]woodIn the event this information is protected by the Federal Confidentiality of Alcohol and Drug Abuse Patient Records regulations: The Federal rules restrict any use of the information to criminally investigate or prosecute any alcohol or drug abuse patient.[facility] [place]woodIn the event this information is protected by the Federal Confidentiality of Alcohol and Drug Abuse Patient Records regulations: The Federal rules restrict any use of the information to criminally investigate or prosecute any alcohol or drug abuse patient.[facility] [place]woodIn the event this information is protected by the Federal Confidentiality of Alcohol and Drug Abuse Patient Records regulations: The Federal rules restrict any use of the information to criminally investigate or prosecute any alcohol or drug abuse patient.[facility] [place]woodIn the event this information is protected by the Federal Confidentiality of Alcohol and Drug Abuse Patient Records regulations: The Federal rules restrict any use of the information to criminally investigate or prosecute any alcohol or drug abuse patient.[facility] [place]woodIn the event this information is protected by the Federal Confidentiality of Alcohol and Drug Abuse Patient Records regulations: The Federal rules restrict any use of the information to criminally investigate or prosecute any alcohol or drug abuse patient.[facility] [place]woodIn the event this information is protected by the Federal Confidentiality of Alcohol and Drug Abuse Patient Records regulations: The Federal rules restrict any use of the information to criminally investigate or prosecute any alcohol or drug abuse patient.[facility] [place]woodIn the event this information is protected by the Federal Confidentiality of Alcohol and Drug Abuse Patient Records regulations: The Federal rules restrict any use of the information to criminally investigate or prosecute any alcohol or drug abuse patient.[facility] [place]woodIn the event this information is protected by the Federal Confidentiality of Alcohol and Drug Abuse Patient Records regulations: The Federal rules restrict any use of the information to criminally investigate or prosecute any alcohol or drug abuse patient.[facility] [place]woodIn the event this information is protected by the Federal Confidentiality of Alcohol and Drug Abuse Patient Records regulations: The Federal rules restrict any use of the information to criminally investigate or prosecute any alcohol or drug abuse patient.[facility] [place]woodIn the event this information is protected by the Federal Confidentiality of Alcohol and Drug Abuse Patient Records regulations: The Federal rules restrict any use of the information to criminally investigate or prosecute any alcohol or drug abuse patient.[facility] [place]woodIn the event this information is protected by the Federal Confidentiality of Alcohol and Drug Abuse Patient Records regulations: The Federal rules restrict any use of the information to criminally investigate or prosecute any alcohol or drug abuse patient.[facility] [place]woodIn the event this information is protected by the Federal Confidentiality of Alcohol and Drug Abuse Patient Records regulations: The Federal rules restrict any use of the information to criminally investigate or prosecute any alcohol or drug abuse patient.[facility] [place]woodIn the event this information is protected by the Federal Confidentiality of Alcohol and Drug Abuse Patient Records regulations: The Federal rules restrict any use of the information to criminally investigate or prosecute any alcohol or drug abuse patient.[facility] Teams (unrecognized sec tion and content) Food Supervisor Relationship Specialty Start Date End Date Pretty Fermin MD [address] [place] [address] PCP - General Family Practice 01/25/21 Food Supervisor Relationship Specialty Start Date End Date Pretty Fermin MD [address] [place] [address] PCP - General Family Practice 01/25/21 Food Supervisor Relationship Specialty Start Date End Date Pretty Fermin MD [address] [place] [address] PCP - General Family Practice 01/25/21 Food Supervisor Relationship Specialty Start Date End Date Pretty Fermin MD [address] [place] [address] PCP - General Family Medicine 01/25/21 Food Supervisor Relationship Specialty Start Date End Date Pretty Fermin MD [address] [place] [address] PCP - General Family Medicine 01/25/21 Food Supervisor Relationship Specialty Start Date End Date Pretty Fermin MD [address] [place] [address] PCP - General Family Medicine 01/25/21 Food Supervisor Relationship Specialty Start Date End Date Pretty Fermin MD [address] [place] [address] PCP - General Family Medicine 01/25/21 Food Supervisor Relationship Specialty Start Date End Date Pretty Fermin MD [address] [place] [address] PCP - General Family Medicine 01/25/21 Food Supervisor Relationship Specialty Start Date End Date Pretty Fermin MD PCP - General Family Medicine 01/25/21 Food Supervisor Relationship Specialty Start Date End Date Pretty Fermin MD PCP - General Family Medicine 01/25/21 Food Supervisor Relationship Specialty Start Date End Date Pretty Fermin MD PCP - General Family Medicine 01/25/21 Food Supervisor Relationship Specialty Start Date End Date Pretty Fermin MD PCP - General Family Medicine 01/25/21 Food Supervisor Relationship Specialty Start Date End Date Pretty Fermin MD PCP - General Family Medicine 01/25/21 Food Supervisor Relationship Specialty Start Date End Date Pretty Fermin MD PCP - General Family Medicine 01/25/21 Food Supervisor Relationship Specialty Start Date End Date Pretty Fermin MD PCP - General Family Medicine 01/25/21 Food Supervisor Relationship Specialty Start Date End Date Pretty Fermni MD PCP - General Family Medicine 01/25/21 Food Supervisor Relationship Specialty Start Date End Date Pretty Fermin MD [address] [place] [facility] [address] PCP - General Family Medicine 07/10/24 Food Supervisor Relationship Specialty Start Date End Date Pretty Fermin MD [address] [place] [facility] [address] PCP - General Family Medicine 07/10/24 Food Supervisor Relationship Specialty Start Date End Date Pretty Fermin MD [address] [place] [facility] [address] PCP - General Family Medicine 07/10/24 Food Supervisor Relationship Specialty Start Date End Date Pretty Fermin MD [address] [facility], [facility] PCP - General Family Medicine 07/10/24 Food Supervisor Relationship Specialty Start Date End Date Pretty Fermin MD [address] [facility], [facility] PCP - General Family Medicine 07/10/24 Food Supervisor Relationship Specialty Start Date End Date Pretty Fermin MD [address] [facility], [facility] PCP - General Family Medicine 07/10/24 Food Supervisor Relationship Specialty Start Date End Date Pretty Fermin MD [address] [place] [facility] [address] PCP - General Family Medicine 07/10/24 Food Supervisor Relationship Specialty Start Date End Date Pretty Fermin MD [address] [place] [facility] [address] PCP - General Family Medicine 07/10/24 Food Supervisor Relationship Specialty Start Date End Date Pretty Fermin MD [address] [place] [facility] [address] PCP - General Family Medicine 07/10/24 Food Supervisor Relationship Specialty Start Date End Date Pretty Fermin MD [address] [place] [facility] [address] PCP - General Family Medicine 07/10/24 Food Supervisor Relationship Specialty Start Date End Date Pretty Fermin MD [address] [place] [facility] [address] PCP - General Family Medicine 07/10/24 Food Supervisor Relationship Specialty Start Date End Date Pretty Fermin MD [address] [place] [facility] [address] PCP - General Family Medicine 07/10/24 Food Supervisor Relationship Specialty Start Date End Date Pretty Fermin MD [address] [place] [facility] [address] PCP - General Family Medicine 07/10/24 Food Supervisor Relationship Specialty Start Date End Date Pretty Fermin MD [address] [place] [facility] [address] PCP - General Family Medicine 07/10/24 Food Supervisor Relationship Specialty Start Date End Date Pretty Fermin MD [address] [place] [facility] [address] PCP - General Family Medicine 07/10/24 Food Supervisor Relationship Specialty Start Date End Date Pretty Fermin MD [address] [place] [facility] [address] PCP - General Family Medicine 07/10/24 Food Supervisor Relationship Specialty Start Date End Date Pretty Fermin MD [address] [place] [facility] [address] PCP - General Family Medicine 07/10/24 Food Supervisor Relationship Specialty Start Date End Date Pretty Fermin MD [address] [place] [facility] [address] PCP - General Family Medicine 07/10/24 Food Supervisor Relationship Specialty Start Date End Date Pretty Fermin MD [address] [place] [facility] [address] PCP - General Family Medicine 07/10/24 Food Supervisor Relationship Specialty Start Date End Date Pretty Fermin MD [address] [place] [facility] [address] PCP - General Family Medicine 07/10/24 Food Supervisor Relationship Specialty Start Date End Date Pretty Fermin MD [address] [place] [facility] [address] PCP - General Family Medicine 07/10/24 Food Supervisor Relationship Specialty Start Date End Date Pretty Fermin MD [address] [place] [facility] [address] PCP - General Family Medicine 07/10/24 Food Supervisor Relationship Specialty Start Date End Date Pretty Fermin MD [address] [place] [facility] [address] PCP - General Family Medicine 07/10/24 Food Supervisor Relationship Specialty Start Date End Date Pretty Fermin MD [address] [place] [facility] [address] PCP - General Family Medicine 07/10/24 Food Supervisor Relationship Specialty Start Date End Date Pretty Fermin MD [address] [place] [facility] [address] PCP - General Family Medicine 07/10/24 Food Supervisor Relationship Specialty Start Date End Date Pretty Fermin MD [address] [place] [facility] [address] PCP - General Family Medicine 07/10/24 Food Supervisor Relationship Specialty Start Date End Date Pretty Fermin MD [address] [place] [facility] [address] PCP - General Family Medicine 07/10/24 Food Supervisor Relationship Specialty Start Date End Date Pretty Fermin MD [address] [place] [facility] [address] PCP - General Family Medicine 07/10/24 Food Supervisor Relationship Specialty Start Date End Date Pretty Fermin MD [address] [place] [facility] [address] PCP - General Family Medicine 07/10/24 Food Supervisor Relationship Specialty Start Date End Date Pretty Fermin MD PCP - General Family Medicine 01/25/21 Food Supervisor Relationship Specialty Start Date End Date Pretty Fermin MD [address] [place] [address] PCP - [facility] 07/10/24 Food Supervisor Relationship Specialty Start Date End Date Pretty Fermin MD PCP - General [facility] Medicine 01/25/21 Food Supervisor Relationship Specialty Start Date End Date Pretty Fermin MD PCP - [facility] 01/25/21 Food Supervisor Relationship Specialty Start Date End Date Pretty Fermin MD [address] [place] [address] PCP - [facility] 07/10/24 Food Supervisor Relationship Specialty Start Date End Date Pretty Fermin MD [address] [place] [address] PCP - [facility] 07/10/24 Food Supervisor Relationship Specialty Start Date End Date Pretty Fermin MD [address] [place] [address] PCP - [facility] 07/10/24 Food Supervisor Relationship Specialty Start Date End Date Pretty [...] BE BASED ON THE PRIMARY CLINICAL RECORDS. [facility]. provides no warranty or guarantee of the accuracy or completeness of information in this document.
--- NOTE | 2024-11-05 08:23 | XR_ITS ---
The [address] [address] Patient Name: ELSA CATALAN MRN: [id number] date: 1960 Sex: F Assigned Patient Location: [facility] Current Patient Location: [facility] Accession/Order Number: [id number] Exam Date: 11/05/2024 08:10 Report Date: 11/05/2024 09:49 At the request of: TAWANDA COOK Procedure: XR DEXA axial skeleton EXAMINATION: XR DEXA axial skeleton HISTORY: Age Related Osteoporosis COMPARISON: No relevant comparison available. TECHNIQUE: Dual-energy X-ray absorptiometry (DXA) was performed. FINDINGS: FOREARM ANALYSIS: Average bone mineral density is 0.480 g/cm2. T-score (standard deviation relative to young adult mean): -3.3 . HIP ANALYSIS: Lowest bone mineral density is within the left femoral neck, 0.924 g/cm2. T-score (standard deviation relative to young adult mean): -0.8 . XR/XR DEXA axial skeleton IMPRESSION: World Health Organization Classification: Osteoporosis - High Fracture Risk FRAX: Cannot be calculated. Pharmacologic treatment recommendations * No uniform recommendation applies to all patients. Management plans must be individualized. * Consider initiating pharmacologic treatment in postmenopausal women and men >= 50 years of age who have the following: Primary fracture prevention: * T-score <= - 2.5 at the femoral neck, total hip, lumbar spine, 33% radius (some uncertainty with existing data) by DXA. * Low bone mass (osteopenia: T-score between - 1.0 and - 2.5) at the femoral neck or total hip by DXA with a 10-year hip fracture risk >= 3% or a 10-year major osteoporosis-related fracture risk >= 20% (i.e., clinical vertebral, hip, forearm, or proximal humerus) based on the [place]-adapted FRAXregistered model. Secondary fracture prevention: * Fracture of the hip or vertebra regardless of BMD [4, 5]. * Fracture of proximal humerus, pelvis, or distal forearm in persons with low bone mass (osteopenia: T-score between - 1.0 and - 2.5). The decision to treat should be individualized in persons with a fracture of the proximal humerus, pelvis, or distal forearm who do not have osteopenia or low BMD [12, 13]. Angel MS, Gianni SL, Ezekiel KL, Aline EM, Naima KG, AJ, Anahi ES. The clinician's guide to prevention and treatment of osteoporosis. Osteoporos Int. 2021;33(10):8463-9951. doi: 10.1007/f55061-137-34924-t. Epub 2021Jan 27. Erratum in: Osteoporos Int. 2021Apr 28;: PMID: [id number]; PMCID: [id number]. Electronically authenticated by: STU SAMUEL Date: 11/05/2024 09:49
== END 2024-11-05 07:57 | disposition home or self-care (01) ==
LOC: RAD 07:57
PROVIDERS: PCP Nurse Practitioner Family; Visit Provider Nurse Practitioner Family
DX: M81.0 Age-related osteoporosis without current pathological fracture (principal)
CPT/HCPCS: 77080

== ENCOUNTER 2025-09-29 14:58 | Outpatient (OUT) | payer MEDICARE, SELFPAY ==
--- OUTSIDE RECORDS SUMMARY | 2024-06-25 05:30 | XMS_ITS ---
Author Organization [facility] in [place] Address [address] [place] [address] Care Team Providers Care E Commerce Specialist Name Role Phone Tasha Cabrera Primary Care Provider REASON FOR VISIT [facility] TCM Encounters Encounter Location Date Provider Diagnosis [address] [address] 06/25/2024 Tasha Cabrera Plan Of Treatment Next Appt Details Provider Name:Tasha crowe, 09/29/2025 02:00:00 PM, [address] [place] [address], [phone], Progress Notes * Lexy CATALANDOB:1960 (65 yo F)Acc No.[id number]:06/25/2024 UNLOCKED PROGRESS NOTE Progress Note Patient: Lexy MELGAR :?Tasha Cabrera ([facility]), CNPDOB:1960 ???Age:64 Y???Sex:FemaleDate:4Phone:[phone]:[id number] [id number] Subjective: * Chief Complaints: * 1 . TB TCM. * Medical History: Objective: * Vitals: Assessment: Plan: * Treatment: * * Electronic signature of Tasha Cabrera NP, SHORT PIECE HANDLER.CLERK TRAVEL RESERVATIONS.[id number] on 09/29/2025 at 10:15 AM ESTSign off status: PendingVisit Status:?CANC (Cancelled) * Provider: Dede Cabrera ([facility]), CLERK TRAVEL RESERVATIONS Date: 0 06/25/2024 Generated for Printing/Faxing/eTransmitting on:?09/29/2025 10:15 AM EST
--- OUTSIDE RECORDS SUMMARY | 2024-07-08 04:00 | XMS_ITS ---
Author Organization 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 Role Phone PérezAlex bassett Primary Care Provider Dalton Wynn Unavailable [phone] Katiuska Juarez Unavailable Allergies Allergen (clinical drug ingredient) Drug/Non Drug Allergy documented on EMR Reaction Allergy Type Onset Date Status penicillin (uncoded)UnknownAllergyActive REASON FOR VISIT RIGHT HIP FX 3 WEEK F/U Medications Medication SIG (Take, Route, Frequency, Duration) Notes Start Date End Date Status Acetaminophen-Hydrocodone Bitartrate 325 mg-5 mg 1 tab(s) orally every 6 hours PRN PAIN; Duration: 7 days /ctive Social History Tobacco Use: Social History Observation Description Date Details (start date - stop date) Never Smoker NA - NA AUDIT-C (Standard) Question Answer Notes Did you have a drink containing alcohol in the p ast year? No Zxctlo4LxosjzisrrtbqmQbyhlakyUfafefo Control (Standard) Question Answer Notes Tobacco use: Nonsmoker Problems Problem Type SNOMED Code ICD Code Onset Dates Problem Status W/U Status Risk Notes Problem Fracture of neck of femur (35657 00) Fracture of unspecified part of neck of right femur, subsequent encounter for closed fracture with routine healing (S72.001D) Activeconfirmed Vital Signs Height 5'4 in 07/08/2024 Weight 180 lbs 07/08/2024 BMI 30.89 07/08/2024 Encounters Encounter Location Date Provider Diagnosis [facility] [address] [place] [address] [place] [address] 07/08/2024 Katiuska Juarez Fracture of unspecified part of neck of right femur, subsequent encounter for closed fracture with routine healing S72.001D Assessments Encounter Date Diagnosis (ICD Code) Assessment Notes Treatment Notes Treatment Clinical Notes Section Notes 07/08/2024 Fracture of unspecif ied part of neck of right femur, subsequent encounter for closed fracture with routine healing (ICD-10 - S72.001D) 07/08/2024OtherPatient rosalio were removed in clinic today without any dehiscence, patient tolerated well. I am going to start weaning patient off pain medication and we will start her on Gans 5 mg as opposed to Percocet 5 mg. We will see her back in 4 weeks for new x-rays and for her next postop recheck. Plan Of Treatment Medication Medication Name Sig Start Date Stop Date Notes Acetaminophen-Hydrocodone Bitartrate 325 mg-5 mg 1 tab(s) orally every 6 hours PRN PAIN; Duration: 7 days 07/08/2024 07/15/2024 Treatment Notes Assessment Notes Other Patient rosalio were removed in clinic today without any dehiscence, patient tolerated well. I am going to start weaning patient off pain medication and we will start her on Gans 5 mg as opposed to Percocet 5 mg. We will see her back in 4 weeks for new x-rays and for her next postop recheck. Pending Test Test Name Order Date SCC- HIP W/ PELVIS, RIGHT [id number] 07/08/20 24 Next Appt Details Follow Up: 4 Weeks, Reason: Provider Name:Mini Ponce 10/21/2025 11:30:00 AM, [address] [place] [address], [phone], Progress Notes * ELSA CATALANDOB:1960 (65 yo F)Acc No.[id number]:07/08/2024 Patient:?ELSA CATALAN :?Katiuska Jimbo Temple PADOB:1960???Age:64 Y???Sex:FemaleDate:07/08/2024hone:[phone]:[address], [id number]:Alex Bales Subjective: * Chief Complaints: * 1 . RIGHT HIP FX 3 WEEK F/U. * HPI: ???General Follow Up Information:?Patient returns to the office today 3 weeks status post right hip IM nail. Patient had discharged to an SNF but states that she was discharged back to home yesterday. She was not given any pain medication and states that she has been having a lot of pain with ambulation. Patient denies any drainagefrom her wounds, fever, night sweats, or chills. ???General Info per Patient Report:?Have you seen another doctor in this practice??No.?Side affected is?Right.?Joint or body part affected is?hip.?Pain occurred?injury.?Work related:?No.?Motor vehicle accident:?No.?Third alliance party responsibility:?No.?Quality of pain is?severe.?Type of pain:?sharp.?Have you been seen by a Dentist in the last year??Yes.?Do you have any dental problems??No.? * ROS: ???Constitutional:?Denies?Chills.?Denies?Night Sweats.?Denies Fever.?Gastrointestinal:?Ulcer/Reflux?Yes.?Musculoskeletal:?Joint pain?Yes.?Joint stiffness?Yes.?Cardiovascular:?Leg/Ankle Swelling?Yes.? * Medical History: A sthma, Problems with Anesthesia, Diabetes, GI Problems: , High Blood Pressure. * Social History: A JAVON-C (Standard) D id you have a drink containing alcohol in the past year? N o,?Points 0 , I nterpretation N egative. T obacco Control (Standard) T obacco use: N onsmoker. * Medications: N one * Allergies: P enicillin. Objective: * Vitals: H t: 5'4 , Wt: 180 lbs, BMI:30.89. * Examination: ???General examination: ???On exam patient is in no distress, age-appropriate, alert and oriented x 3. On inspection of the right hip there are 2 lateral incisions with rosalio with no surrounding erythema, no drainage, no warmth to touch. Patient distally intact 5/5 dorsiflexion/plantarflexion. Sensation intact to light touch distally. 2+ DP pulses palpated bilaterally. . ???X-ray Imaging Studies: ???3 view x-rays of the right hip were taken in office today and reviewed and interpreted by myself as stable right intertrochanteric hip fracture with internal fixation. ??? Assessment: * Assessment: 1.?Fracture of unspecified part of neck of right femur, subsequent encounter for closed fracture with routine healing - S72.001D (Primary)??? Plan: * Treatment: Start Acetaminophen-Hydrocodone Bitartrate tablet, 325 mg-5 mg, 1 tab(s), orally, every 6 hours PRNPAIN, 7 days, 28, Refills 0.?Imaging: SCC- HIP W/ PELVIS, RIGHT [id number] Notes: Patient rosalio were removed in clinic today without any dehiscence, patient tolerated well.I am going to start weaning patient off pain medication and we will start her on Gans 5 mg as opposed to Percocet 5 mg. We will see her back in 4 weeks for new x-rays and for her next postop recheck.?? * Preventive Medicine: ??MIPS Measures:?XIE505 Fall Risk?Screening:?One fall with injury in the past year.?# 155 - Falls Plan of Care?Plan of Care:?Documented,?Type of fall planof care:?Balance, strength and gait training or instruction provided.? * Follow Up: 4 Weeks Forms: * Images: * Electronic signature of Katiuska Juarez PA-C on 09/29/2025 at 10:15 AM ESTSign off status: Pending * Provider: MAKAYLA Smallwood Date: Generated for Printing/Faxing/eTransmitting on:?09/29/2025 10:15 AM EST History and Physical Notes * HPI (History of Present Illness) CategorySub-CategoryDetailNotesCategory NotesGeneral Follow Up Information Patient returns to the office today 3 weeks status post right hip IM nail. Patient had discharged to an SNF but states that she was discharged back to home yesterday. She was not given any pain medication and states that she has been having a lot of pain with ambulation. Patient denies any drainagefrom her wounds, fever, night sweats, or chills.General Info per Patient ReportSide affected isRightJoint or body part affected ishipPain occurredinjuryWork related:NoMotor vehicle accident:NoQuality of pain issevereType of pain:sharp Have you seen another doctor in this practice?NoThird alliance party responsibility:No Have you been seen by a Dentist in the last year?YesDo you have any dental problems?No Examination CategorySub-CategoryDetailNotesCategory NotesGeneral examinationOn exam patient is in no distress, age-appropriate, alert and oriented x 3. On inspection of the right hip there are 2 lateral incisions with rosalio with no surrounding erythema, no drainage, no warmth to touch. Patient distally intact 5/5 dorsiflexion/plantarflexion. Sensation intact to light touch distally. 2+ DP pulses palpated bilaterally.X-ray Imaging Studies3 view x-rays of the right hip were taken in office today and reviewed and interpreted by myself asstable right intertrochanteric hip fracture with internal fixation.
--- OUTSIDE RECORDS SUMMARY | 2024-12-09 04:30 | XMS_ITS ---
Author Organization [facility] Address [address] [place] [address] Care Team Providers Care Water Quality Assistant Name Role Phone Alex Bales Primary Care Provider Dalton Wynn Unavailable [phone] Results Component Value Reference Range Notes SCC- HIP W/ PELVIS, RIGHT 73 502 Reviewed date:12/12/2024 11:04:03 AM Interpretation: Performing Lab: Notes/Report: REASON FOR VISIT S/P RIGHT HIP FX Encounters Encounter Location Date Provider Diagnosis [facility] Office [address] [place] [address] [place] [address] 12/09/2024 Dalton Simental Fracture of unspecified part of neck of right femur, subsequent encounter for closed fracture with routine healing S72.001D Assessments Encounter Date Diagnosis (ICD Code) Assessment Notes Treatment Notes Treatment Clinical Notes Section Notes 12/09/2024 Fracture of unspecif ied part of neck of right femur, subsequent encounter for closed fracture with routine healing (ICD-10 - S72.001D) Plan Of Treatment Next Appt Details Provider Name:Mark Anthony Bre Chan, 0 10/21/2025 11:30:00 AM, [address] [place] [address], [address], Progress Notes * ELSA CATALANDOB:1960 (65 yo F)Acc No.[id number]:12/09/2024 Patient:?ESLA CATALAN :?RODO StinsonOB:1960???Age:64 Y ???Sex:FemaleDate:12/09/2024Phone:[phone]:[address], [place]-[id number]:Alex Bales Subjective: * Chief Complaints: * 1 . S/P RIGHT HIP FX. * Medical History: Objective: * Vitals: Assessment: * Assessment: 1.?Fracture of unspecified part of neck of right femur, subsequent encounter for closed fracture with routine healing - S72.001D??? Plan: * Treatment: ?Imaging: SCC- HIP W/ PELVIS, RIGHT 29164 (Performed Date - 12/12/2024) Forms: * Images: * Electronic signature of Dalton Simentla MD on 09/29/2025 at 01:49 PM ESTSign off status: Pending * Provider: Amberly Simental MD Date: 0 12/09/2024 Generated for Printing/Faxing/eTransmitting on:?09/29/2025 01:49 PM EST
--- OUTSIDE RECORDS SUMMARY | 2025-08-04 04:00 | XMS_ITS ---
Author Organization [facility] Address [address] [place] [address] Care Team Providers Care Clinical Orthoptist Name Role Phone Alex Bales Primary Care Provider Dalton Wynn Unavailable [phone] REASON FOR VISIT LUMBAR MRI Encounters Encounter Location Date Provider Diagnosis [facility] [address] [place] [address] 08/04/2025 Dalton Simental Pain in right hip M25.551 Assessments Encounter Date Diagnosis (ICD Code) Assessment Notes Treatment Notes Treatment Clinical Notes Section Notes 08/04/2025 Pain in right hip (ICD-10 - M25. 551) Plan Of Treatment Next Appt Details Follow Up: 08/05, Reason: Provider Name:Mark Anthony Chan, Mini 10/21/2025 11:30:00 AM, [address] [place], [address], Progress Notes * HOSSEIN PAVELJUAN FRANCISCODOB:1960 (65 yo F)Acc No.[id number]:08/04/2025 MRI [facility]/ Patient: Nel YEVGENIYELSA Johnson :?Dalton Simental MDDOB:1960???Age:65 Y ???Sex:FemaleDate:08/04/2025Phone:[phone]:[id number] [id number]:Alex Bales Subjective: * Chief Complaints: * 1 . LUMBAR MRI. * Medical History: Objective: * Vitals: Assessment: * Assessment: 1.?Pain in right hip - M25.551 (Primary)??? Plan: * Treatment: * Procedure Codes: 7 2148 MRI Lumbar Spine w/o Dye * Follow Up: 10/05 Forms: * Images: * Electronic signature of Dalton Simental MD on 09/29/2025 at 01:48 PM ESTSign off status: Pending * Provider: Amberly Simental MD Date: 10/04/2024 Generated for Printing/Faxing/eTransmitting on:?09/29/2025 01:48 PM EST
--- OUTSIDE RECORDS SUMMARY | 2025-08-15 06:00 | XMS_ITS ---
Author Organization [facility] Address [address] [place] [address] Care Team Providers Care Binder Fixer Name Role Phone Alex Bales Primary Care Provider Dalton Wynn Unavailable [phone] Troy Bell Unavailable [phone] REASON FOR VISIT MRI CERVICAL MYELOPATHY [place]APIN[place]O Encounters Encounter Location Date Provider Diagnosis [facility] [address] [place] [address] 08/15/2025 Troy Bell Cervical myelopathy G95.9 Assessments Encounter Date Diagnosis (ICD Code) Assessment Notes Treatment Notes Treatment Clinical Notes Section Notes 08/15/2025 Cervical myelopathy (ICD-10 - G9 5.9) Plan Of Treatment Next Appt Details Follow Up: 08/19, Reason: Provider Name:Mark Anthony Chan, Mini 10/21/2025 11:30:00 AM, [address] [place], [address], Progress Notes * HOSSEINELSA NICOLEDOB:1960 (65 yo F)Acc No.[id number]:08/15/2025 MRI [facility]/ Patient: ELSA MELGAR :?Troy Bell MDDOB:1960???Age:65 Y ???Sex:FemaleDate:08/15/2025Phone:[phone]:[address] [id number]:Alex Bales Subjective: * Chief Complaints: * 1 . MRI CERVICAL MYELOPATHY CHAPINCITO. * Medical History: Objective: * Vitals: Assessment: * Assessment: 1.?Cervical myelopathy - G95.9 (Primary)??? Plan: * Treatment: * Procedure Codes: 7 2141 MRI Cervical w/o dye * Follow Up: 10/19 Forms: * Images: * Electronic signature of Troy Bell MD on 09/29/2025 at 01:48 PM ESTSign off status: Pending * Provider: Bryon Bell MD Date: 1 10/15/2024 Generated for Printing/Faxing/eTransmitting on:?09/29/2025 01:48 PM EST
--- OUTSIDE RECORDS SUMMARY | 2025-09-15 10:30 | XMS_ITS | Encounter Summary ---
Author Organization [facility] Healthcare Address [address] [place] [address] Care Team Providers Care Food Mixer Repairer Name Role Phone Alex Bales MD Primary Care Provider [phone] Reason for Visit * Rehabilitation - Outpatient (Routine) - AuthorizedSpecialtyDiagnoses / ProceduresReferred By ContactReferred To ContactPhysical Therapy Diagnoses Radiculopathy, lumbar region Procedures MS PHYSICAL THERAPY EVALUATION LOW COMPLEX 20 MINS MS OFFICE/OUTPATIENT NEW HIGH MDM 60 MINUTES Troy Bell MD [address] [place] [address] Phone: tel: fax: Bee Jimenez, PT Referral IDStatusReasonStart DateExpiration DateVisits RequestedVisits [id number] Encounter Details DateTypeDepartmentCare Team (Latest Contact Info)Nlhrvcnyqhx67/15/2025 10:30 AM ESTTreatment [facility] [address] [place] [id number] Cristal Jacobo PTA Radiculopathy, lumbar region (Primary Dx) Social History Tobacco UseTypesPacks/DayYears UsedDateSmoking Tobacco: Never Assessed CommentsUnknownSex and Gender InformationValueDate RecordedSex Assigned at Not on fileLegal NezQbxomn55/15/2023 6:52 PM EDTGender IdentityNot on fileSexual OrientationNot on filedocumented as of this encounter Progress Notes * Cristal Jacobo PTA - 09/15/2025 10:30 AM EST Images from the original note were not included. Physical Therapy Treatment Visit Patient Name: Lexy Quintero Today's Date: 09/15/2025 Encounter Diagnoses Name Primary? Radiculopathy, lumbar region Yes Visit number: 5 Timed Code Treatment Minutes: 45 minutes Total Treatment Time: 55 minutes Time In: 1030 AM Time Out: 1125 AM History: Pt states she has been having pain in low back for about one year. Pt states she has been seeing neurosurgery and states she will likely need lumbar fusion this time. Pt states she has had lumbar surgery in the past but currently no hardware in low back. Pt she currently ambulates outside of the home she has been walking with st cane due to right LE instability and weakness. States drop foot is getting worse on right LE and she continues with weakness. States fell 2-3 weeks ago due to tripping over right LE. Precautions: Falls, right TKA Subjective: Reports pain in low back isn't bad today. States just gets fatigued real easily. Pt notes sees the pain larissa but not till October. Pain: 3-05/11 Objective: PT Evaluation (08/14/2025) LUMBAR SPINE AROM: full flexion with increase right low back pain, extension limited 50% due to increase pain, no pain at end ranges bilateral SB Joint play: hypomobility upper lumbar region Strength: right hip 3+/5, quad 4/5, ankle 3+/5; core strength is fair Muscle length: tightness right piriformis and quad Palpation: moderate tenderness right piriformis Special Test: negative SLR Neurological: Myotomes: decrease strength L4 and L5 Dermatomes: reports numbness right lower leg and lateral thigh; states started on great toe and hasspread over the last 3-6 months Special Test: negative clonus Treatment: Education: HEP education with demonstration, Educated on Eval Findings and POC Manual Therapy: Passive ROM, Joint mobilization, Soft Tissue Mobilization, Myofascial Release, Muscle Energy Technique, Neural Mobilization, Myofascial Cupping, Dry Needling, IASTM, and Scar mobilization as needed. Therapeutic Exercise: (45 minutes) Strength, Endurance, Flexibility, ROM, HEP, Neural Mobilization,Power, and Core Stability as needed. Pt performed and instructed in home program this date; writteninstructions and pictures issued with good pt understanding. Therapeutic Activity: Exercises to improve dynamic activities, functional tasks, functional mobility to return to prior activity level as needed. Neuromuscular re-education (0 minutes) : Balance Training, Muscle Facilitation, Dynamic Stability, Core Stabilization, and Blood Flow Restriction Training (BFRT) as needed. Pt instructed and completed various series of core stabilization exercises to properly recruit abdominal activation. Modalities (10 minutes): Heat, Ice, Electrical Stimulation, Ultrasound, Cervical Mechanical Traction, Lumbar Mechanical Traction, Iontophoresis, and Fluidotherapy as needed. Pt was seated with MHP X 10 minutes for lower back. Assessment: Visit #5 Pt is 65 y/o female with complaints of low back pain and right LE weakness. Limited strength right hip and core. Pt was instructed and completed series of bilateral LE and abdominal strengthening exercises to improve functional mobility. She continues to experience exercise-induced fatigue, necessitating rest breaks. Low back pain was less intense compared to prior sessions before arrival. Worked on strengthen ing interventions of bilateral LE due to presentation of continued weakness. Will continue to monitor and progress as tolerated. Outcome Measure: Back Index: 27/50 Rehab Diagnosis: low back pain, right LE pain and weakness Short Term Goal: To be met in 2 weeks Goal 1: Pt to be instructed in home exercise program. Nursing Home Goals: To be met in 10 weeks Goal 1: Pt to report independence and compliance with home program. Goal 2: Pt to have full trunk ROM without complaints of increase pain at end ranges to assist with functional tasks. Goal 3: Pt to achieve 4 to 4+/5 strength right hip and quad to assist with functional tasks. Goal 4: Pt to demo good core strength for improved lumbar stability. Goal 5: Pt to report pain no greater than 4/10 with function tasks, ADL's, and work related activities. Goal 6: Pt to score no greater than 18/50 on Back Index indicating improved QOL. Pt will benefit from skilled PT for 1x/week from 08/14/2025 to 11/12/2025 to address the above impairments. I hereby deem this POC medically necessary. Please sign below. Date: Cosigned by Bee Jimenez PT at 09/22/2025 8:55 AM EST documented in this encounter Plan of Treatment DateTypeDepartmentCare Team (Latest Contact Info)Ecirddvhaoh72/30/2025 9:30 AM ESTTreatment [facility] [address] [facility] [address] [place] [address] Cristal Jacobo, [facility] 10/06/2025 10:30 AM ESTTreatment [facility] [address] [place] [address] Cristal Jacobo, [facility] 11/05/2025 11:00 AM ESTOffice Visit [facility] [address] [place] [address] Trudy Collins MD [address] [place] [address] documented as of this encounter Visit Diagnoses Diagnosis Radiculopathy, lumbar region- Primary Thoracic or lumbosacral neuritis or radiculitis, unspecified documented in this encounter Care Teams Team MemberRelationshipSpecialtyStart DateEnd Date Alex Bales MD [address] [place] [address] PCP - GeneralFamily Rqcrkmww33/9/24documented as of this encounter
--- OUTSIDE RECORDS SUMMARY | 2025-09-29 15:04 | XMS_ITS | Clinical Summary ---
Author Organization [employer] Address [id number] [address] 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 Apparel Merchandiser Name Role Phone Alex Bales MD Primary Care Provider [phone] Allergies Active AllergyReactionsCriticalityNoted DateCommentsAnesthetics - Amide Type - Select Amino Tntimt5112/06/2002 problems awakening & gi upset with general EywuljgipcplaEcwoUqslrc52/24/7306Blipqprixjpb51/07/2003 (Indocin) extremely high temperature elevation Lwkpwodsxea66/29/2018Propoxyphene N-AcetaminophenNausea And VomitingLow 05/15/2012 Medications MedicationSigDispense QuantityRefillsLast FilledStart DateEnd DateStatus sulfaSALAzine (AZULFIDINE) 500 mg EC tablet Take 1 tablet (500 mg total) by mouth 3 (three) times a day.03/30/2018Active methotrexate 25 mg/mL injection Inject 1 mL (25 mg total) under the skin every 7 days. Qozxtap681Active cholecalciferol, vitamin D3, 5,000 units tablet Take 1 tablet (5,000 Units total) by mouth in the morning.07/02/2013ctive folic acid (FOLVITE) 1 mg tablet Take 2 tablets (2 mg total) by mouth in the morning.03/30/2018Active leflunomide (ARAVA) 20 mg tablet Take 1 tablet (20 mg total) by mouth in the morning.Active pen needle, diabetic 31 gauge x 3/16 needle 1 Pen Needle by miscellaneous route 2 (two) times a day. 180 each Active LANTUS SOLOSTAR U-100 INSULIN 100 unit/mL (3 mL) insulin pen Inject 50 Units under the skin daily. 1 Box Active Additional Information Patient taking differently: 55 UnitssubcutaneousNightly, Reported on 03/08/2023 gabapentin (NEURONTIN) 300 mg capsule Indications:FibromyalgiaTake 1 capsule (300 mg total) by mouth 3 (three) times a day. TAKE 3 CAPSULES 3 TIMES DAILY 270 capsule Active insulin aspart U-100 (NovoLOG U-100 Insulin aspart) 100 unit/mL injection 5 units before breakfast and supper while on steroid 1 Box Active Additional Information Patient taking differently: 3 times daily before meals, SS based on blood sugar, Reported on 03/08/2023 metoprolol succinate XL (TOPROL-XL) 25 mg 24 hr tablet Take 1 tablet (25 mg total) by mouth daily. 90 tablet Active upadacitinib (RINVOQ) 15 mg tablet extended release 24 hr Take 15 mg by mouth in the morning.07/27/2022ctive levothyroxine (SYNTHROID, LEVOTHROID) 200 MCG tablet Take 1 tablet (200 mcg total) by mouth every morning before breakfast. Take on empty xnnzjol4001/12/2023ctive JARDIANCE 25 mg tablet tablet Take 1 tablet (25 mg total) by mouth in the evening.02/16/2023ctive albuterol (PROVENTIL HFA;VENTOLIN HFA) 90 mcg/actuation inhaler Inhale 2 puffs every 6 (six) hours as needed for wheezing.Active simvastatin (ZOCOR) 40 mg tablet Take 1 tablet (40 mg total) by mouth in the morning.12/13/2022ctive fluticasone/umeclidin/vilanter (TRELEGY ELLIPTA INHL) Inhale 1 puff as needed. Use if albuterol inhaler is ineffectiveActive cloNIDine (CATAPRES) 0.1 mg tablet Take 1 tablet (0.1 mg total) by mouth in the morning and 1 tablet (0.1 mg total) before bedtime.Active Active Problems ProblemNoted DateDiagnosed DateMenopausal state07/30/2018Rheumatoid arthritis 07/30/2018 Overview (07/30/2018): Folic Acid, MTX. Sulfasalazine, Leflunomide, Tofacitinib , PRN Steroids Primary osteoarthritis involving multiple gwtbmt9707/30/2018Postoperative cqqcenxuksptyy06/29/2018 Overview (07/30/2018): [place] Thyroid Immunosuppressed ewdsan2307/30/2018 Overview (07/30/2018): On steroid and biologicals for RA/ Folic Acid, MTX. Sulfasalazine, Leflunomide, Tofacitinib , PRN Steroids Comprehensive diabetic foot examination, type 2 DM, encounter for07/30/2018 Overview (07/30/2018): Do on next visit Allergic rhinitis Overview (07/30/2018): OTC PRN Anitihistamine Diabetes mellitus Overview (07/30/2018): On and Off steroids // Januvia, Metformin, Lantus, Humolog Aspart (when on steroid) // asa but not stati nor arb Exertional asthma Overview (07/30/2018): PRN use of short acting bronchodilator Fibromyalgia Overview (07/30/2018): Gabapentin // stretching exercise Nonalcoholic steatohepatitis (GUIDRY) Overview (07/30/2018): Observation // On RA meds Vitamin D deficiency Overview (07/30/2018): choleclciferol vit D 3 / Diet with Vit D / sunshine 1 hr daily Resolved Problems ProblemNoted DateDiagnosed DateResolved DateEncounter for physical examination related to vjpnfundmz49Breast cancer pmroukcfa26/29/2018 01/21/2019Increased nutritional needs Overview (07/30/2018): 1800 [address]UGIE USDA MYPLATE Family History Medical HistoryRelationNameCommentsAsthmaFatherHeart murmurMotherRelationName StatusCommentsFatherDeceased (Age 67)MotherDeceased (Age 87 [place]) Social History Tobacco UseTypesPacks/DayYears UsedDateSmoking Tobacco: NeverSmokeless Tobacco: NeverAlcohol UseStandard Drinks/WeekCommentsNot Currently0 (1 standard drink = 0.6 oz pure alcohol)AUDIT-CAnswerDate RecordedFrequency of Alcohol Consumption Never07/30/2018Average Number of DrinksNot on file07/30/2018Frequency of Binge DrinkingNot on file07/30/2018PHQ-2AnswerDate RecordedTotal Ebecw519 ChildcareAnswerDate NdhtlnleTjryhrjdmCuqcykh84/12/2019EmploymentAnswerDate LewahkasGydqcaspswCmxhayo37/12/2019Purpose - LifeAnswerDate RecordedPurpose and direction in dkqtBuptsqg52/11/2021CommentsNoSex and Gender Information ValueDate RecordedSex Assigned at BirthNot on fileLegal HkkXcuagz47/06/2015 11:25 AM EDTGender IdentityNot on fileSexual OrientationNot on fileOccupation IndustryJob Start DateJob End DatePhysical Therapy AssistantNot on fileNot on fileNot on fileOccupational exposure DeniedNot on fileNot on fileNot on file Last Filed Vital Signs Vital SignReadingTime TakenCommentsBlood Firvbbrf258/9008 8:25 AM EDT Ftane096405/11/2023 8:25 AM XFPYerafrfwagq62.6 ??C (97.9 ??F)05/11/2023 8:05 AM EDTRespiratory Ehjp969405/11/2023 8:25 AM EDTOxygen Puqftvaalm55%05/11/2023 8:25 AM EDTInhaled Oxygen Concentration--Hgvxka49.4 kg (142 lb)05/11/2023 6:25 AM EDT Bzguoc041.6 cm (5' 4 )05/11/2023 6:25 AM EDTBody Mass Index24.3708 6:25 AM EDT Plan of Treatment Health MaintenanceDue DateLast DoneCommentsStatin Use: Rhrquhwp1959 Depression Ktyhsksai09/26/1971Tobacco Knelafjlv14/26/1971Diabetic Foot Exam 1977DTaP,Tdap and Td Vaccines (1 - Tdap)1978Zoster (Shingles) Vaccine (1 of 2)1978RSV ( or age 60+ yrs) (1 - Risk 50-74 years 1- dose series)2009Diabetic Ophthalmology ExamCOVID-19 Vaccine (3 - Pfizer risk series)/, 07/01/2021dult BMI Vzrmhgjza90/07/2023Fall Risk Eqshfxyhl86/26/2024Influenza Vaccine /, 09/03/2018 Medical Devices ImplantedTypeAreaManufacturerDevice IdentifierShelf Expiration DateModel / Serial / LotLens Iol Ultrasert 21.5d - [id number] - [id number] Implanted:Qty: 1 on [facility]27/2023 [facility] [id number] 21.5 / [id number] / Lens Iol Ultrasert 21.5d - [id number] - [id number] Implanted:Qty: 1 on 05/11/2023 by Rita Ramirez MD at [facility]: [id number] 21.5 / [id number] / NA Procedures Procedure NamePriorityDate/TimeAssociated DiagnosisComments DIABETES EYE EXAM Rhlkgbz2208/07/2019from Last 3 Months or Most Recently Relevant to Health Maintenance Results * DIABETES EYE EXAM (08/07/2019) Narrative Authorizing ProviderResult TypeResult StatusNot In System Ref ProvHEALTH MAINTENANCEFinal ResultPerforming OrganizationAddressCity/State/ZIP CodePhone Number MANUALLY TRANSCRIBED RESULTS from Last 3 Months or Most Recently Relevant to Health Maintenance Insurance Care Teams Team MemberRelationshipSpecialtyStart DateEnd Alex Bales MD PCP - GeneralFamily Medicine03/08/23
--- OUTSIDE RECORDS SUMMARY | 2025-09-29 15:04 | XMS_ITS | Clinical Summary ---
Author Organization [facility] Address [address] [place] [address] Phone Care Team Providers Care Test Design Engineer Name Role Phone Alex Bales MD Primary Care Provider [phone] Social History Tobacco UseTypesPacks/DayYears UsedDateSmoking Tobacco: Never Assessed CommentsUnknownSex and Gender InformationValueDate RecordedSex Assigned at Not on fileLegal ZfzLyolxg48/26/2022 2:07 PM ESTGender IdentityNot on fileSexual OrientationNot on file Plan of Treatment Not on file Care Teams Team MemberRelationshipSpecialtyStart DateEnd Date Alex Bales MD [address] [place] [address] PCP - [facility]05/25/21
--- OUTSIDE RECORDS SUMMARY | 2025-09-29 15:04 | XMS_ITS | Clinical Summary ---
Author Organization [facility] Address [facility] [place] [address] Care Team Providers Care Online Advertising Analyst Name Role Phone Alex Bales MD Primary Care Provider [phone] Tarik Almanzar DO Unavailable [phone] Allergies Active AllergyReactionsCriticalityNoted DateCommentsAdhesive Tape-SiliconesRash Low08/23/20198840QbcprufpzocarAeszNavvzz43/24/2017LisinoprilOther (See Comments) 08/23/2019 Cough ZeuoghneuhiHbbeCyb99/22/2019 Medications MedicationSigDispense QuantityRefillsLast FilledStart DateEnd DateStatus folic acid (FOLVITE) 1 MG tablet Indications:SuppTake 2 mg by mouth every morning Reasons: Supp.01/14/2019Active gabapentin (NEURONTIN) 300 MG capsule Indications:PainTake 900 mg by mouth 3 (three) times a day Reasons: Pain. 01/21/2019Active LANTUS SOLOSTAR U-100 INSULIN 100 unit/mL (3 mL) InPn Indications:type 2 diabetes mellitusInject 50 Units under the skin nightly Reasons: type 2 diabetes mellitus.01/21/2019Active Synthroid 200 mcg tablet Indications:hypothyroidismTake 200 mcg by mouth every morning Reasons: a condition with low thyroid hormone levels.01/21/2019Active TOPROL XL 25 mg 24 hr tablet Indications:hypertensionTake 25 mg by mouth every morning Reasons: high blood pressure.01/21/2019Active cholecalciferol, vitamin D3, (VITAMIN D3 ORAL) Indications:SuppTake 1 capsule by mouth every morning Reasons: Supp.Active irbesartan (AVAPRO) 150 MG tablet Indications:hypertensionTake 150 mg by mouth every morning Reasons: high blood pressure.Active empagliflozin (Jardiance) 10 mg Tab Indications:type 2 diabetes mellitusTake 10 mg by mouth every morning Reasons: type 2 diabetes mellitus.Active insulin aspart U-100 (NovoLOG) 100 unit/mL injection Indications:type 2 diabetes mellitus,Sliding scaleInject under the skin 3 (three) times a day before meals Reasons: type 2 diabetes mellitus, Sliding scale.Active simvastatin (ZOCOR) 20 MG tablet Indications:hyperlipidemiaTake 20 mg by mouth daily with lunch Reasons: excessive fat in the blood.Active adalimumab (HUMIRA) 40 mg/0.8 mL syringe Indications:rheumatoid arthritisInject 0.8 mL (40 mg total) under the skin every 14 (fourteen) days . Reasons: rheumatoid arthritis. 2 each 09/04/2019Active leflunomide (ARAVA) 20 MG tablet Indications:rheumatoid arthritisTake 1 (one) tablet (20 mg total) by mouth every morning . Reasons: rheumatoid arthritis.09/04/2019Active methotrexate 25 mg/mL injection Indications:rheumatoid arthritisInject 50 mg into the shoulder, thigh, or buttocks once a week Monday Reasons: rheumatoid arthritis. 10 mL 09/04/2019Active sulfaSALAzine (AZULFIDINE) 500 mg tablet Indications:rheumatoid arthritisTake 1 (one) tablet (500 mg total) by mouth 3 (three) times a day . Reasons: rheumatoid arthritis.09/04/2019Active ranitidine (ZANTAC) 75 MG tablet Indications:GERDTake 75 mg by mouth as needed for heartburn Reasons: GERD.Active ondansetron (Zofran ODT) 4 MG disintegrating tablet Dissolve 1 (one) tablet (4 mg total) on top of tongue every 6 (six) hours as needed for nausea . 15 tablet 04/08/2020ActiveHospital, Clinic, or Other Facility Administered Medication Ordered DoseRouteFrequencyStart DateEnd DateStatus lidocaine (XYLOCAINE) 4 % (40 mg/mL) external solution TPAs itjmil1704/23/2019Active lidocaine (LMX) 4 % cream 1 application TPAs fihevu6810/08/2019Active Active Problems ProblemNoted DateDiagnosed DateNon-healing wound of upper /11/2020 Assessment & Plan (10/14/2019 1:07 PM EST): POD 1 S/p INCISION AND DRAINAGE LEFT ELBOW WITH WOUND VAC APPLICATION HD stable Labs unremarkable A febrile Plan - Continue current pain management-prescription provided for discharge - Po Bactrim x 7 days - Educated on tight glycemic control to promote wound healing - Follow up appointment with Dr. Santana in two weeks RHA (rheumatoid arthritis)09/04/2019Elbow lezixjega98/04/1922Ciqqmmih12/24/2019 Rheumatoid yyxewxziv01/24/2019Fibromyalgia affecting jsfjnun1504/24/2019HTN (hypertension)04/23/2019Skin ulcer of elbow with fat layer opesaty7504/23/2019 Elbow pain02/28/2019 Assessment & Plan (02/28/2019 10:26 AM EDT): POD # 1 RIGHT TOTAL ELBOW ARTHROPLASTY, [...] at 3pm and after working with OT Family History Medical HistoryRelationCommentsArthritisFatherAsthmaFatherDiabetesFatherHeart diseaseFatherHeart diseaseMotherRelationStatusCommentsFatherDeceasedMother Social History Tobacco UseTypesPacks/DayYears UsedDateSmoking Tobacco: NeverSmokeless Tobacco: NeverAlcohol UseStandard Drinks/WeekCommentsNever0 (1 standard drink = 0.6 oz pure alcohol)AUDIT-CAnswerDate RecordedQ1: How often do you have a drink containing alcohol?Never04/08/2020Average Number of DrinksNot on file04/08/2020 Frequency of Binge DrinkingNot on file04/08/2020PHQ-2AnswerDate RecordedPHQ-2 Tlgcj295CommentsNoSex and Gender InformationValueDate Recorded Sex Assigned at BirthNot on fileLegal KsmUtdatq87/16/2019 1:06 PM EDTGender RftnjkgqRndxgl80/16/2019 2:58 PM EDTSexual LcaonykfuvdCxoeckjh89/16/2019 2:58 PM EDT Last Filed Vital Signs Vital SignReadingTime TakenCommentsBlood Ucwfkzhs983/7207 5:10 PM EDT Iuvok2215 5:10 PM UXRGygfedndwxy29.3 ??C (97.4 ??F)04/08/2020 5:00 PM EDTRespiratory Vyzu5129 5:10 PM EDTOxygen Akbxouqxpx80%04/08/2020 5:10 PM EDTInhaled Oxygen Concentration--Kvjqzn21 kg (143 lb 4.8 oz)04/08/2020 9:55 AM CSYVjexvh271.6 cm (5' 4 )04/08/2020 9:55 AM EDTBody Mass Index24.6004/08/2020 9:55 AM EDT Plan of Treatment Health MaintenanceDue DateLast DoneCommentsCT Ygupczwhbvki1959Colonoscopy 1959Colorectal Cancer Screening/Sghkhvfbpv1959Dexa Scan1959 Fecal DNA1959Fecal occult blood test (FOBT,FIT)1959Wellness Visit 2Depression Screening/Follow-Up (PHQ-2/9)1971Hepatitis C Tajuvflui66/26/1977Tetanus/Diphtheria/Pertussis (1 - Tdap)1978Pneumococcal Vaccine: 50+ Years (1 of 1 - PCV)2009Zoster Vaccines (1 of 2)2009 Falls Risk Fshpvbieop90/26/2024COVID-19 Vaccine (1 - 2024- season)2025 Influenza Vaccine (#1)RSV Vaccines (1 - 1-dose 75+ series) 2034HIB VaccinesAged OutNo longer eligible based on patient's age to complete this topicHPV VaccinesAged OutNo longer eligible based on patient's age to complete this topicHepatitis A VaccinesAged OutNo longer eligible based on patient's age to complete this topicHepatitis B VaccinesAged OutNo longer eligible based on patient's age to complete this topicIPV VaccinesAged OutNo longer eligible based on patient's age to complete this topicMeningococcal ACWY VaccineAged OutNo longer eligible based on patient's age to complete this topic Meningococcal B VaccineAged OutNo longer eligible based on patient's age to complete this topicRotavirus VaccinesAged OutNo longer eligible based on patient's age to complete this topic Medical Devices ImplantedTypeAreaManufacturerDevice IdentifierShelf Expiration DateModel / Serial / LotCement Bone Antibiotic Simplex P W/Tobramycin Single Dose - [id number] Implanted:Qty: 1 [facility]27[facility] Merlene OR01/29/[id number] / / [id number] Bone Antibiotic Simplex P W/Tobramycin Single Dose - [id number] Implanted:Qty: 1 on 02/27/2019 [facility] Merlene OR11/01/[id number] / / [id number] Bone Antibiotic Simplex P W/Tobramycin Single Dose - [id number] Implanted:Qty: 2 on 09/04/2019 [facility] Merlene OR07/01/[id number] / / [id number] 10mm Cement Sm Diameter - [id number] Implanted:Qty: 1 on 02/27/2019 [facility] [employer]bow[employer] [id number] / / [id number] 3in Ulna Plasma Xsm Rt C/M - [id number] Implanted:Qty: 1 on 02/27/2019 [facility]: [id number] / / [id number] 4in Humeral Xsm C/M - [id number] Implanted:Qty: 1 on 02/27/2019 by Tarik Almanzar DO at [facility]: [id number] / / [id number] 8mm Cement Sm Diameter - [id number] Implanted:Qty: 1 on 09/04/2019 [facility] Elbow[employer] [id number] / / [id number] 8-10mm Sm Im Canal - [id number] Implanted:Qty: 1 on 09/04/2019 [facility] [employer]//[id number] / / [id number]/Morrey Total Elbow Interchangeable Humeral Assembly Extra Small 4 Inch Length Implanted:Qty: 1 on 09/04/2019 [facility] ElbowZIMMER BIO//[id number] / / [id number]/Morrey Total Elbow Interchangeable Ulnar Assembly Extrasmall Left 3 Inch Implanted:Qty: 1 on 09/04/2019 by Tarik Almanzar DO at [facility]: ElbowZIMMER BIO//[id number] / / [id number]pu [facility]watosahelf Expiration DateModel / Serial / LotPlug 8-10mm Sm Im Canal - [id number] Explanted:Qty: 1 on 09/04/2019 by Tarik Almanzar DO at [facility]: [employer]//[id number] / / [id number] Insurance * Guarantor: Noemí Quintero TypeRelation to PatientDate of BirthPhone Billing AddressPersonal/WxjknoEmqn1960 [phone] (Home) [address] [place] [address] Advance Directives For more information, please contact: [phone] * Full Code (Latest Code Status on File) Date ActivatedDate InactivatedComments10/12/2019 4:09 PM04/08/2020 9:15 AM * Full Code Date ActivatedDate HklbofgtovvPnfwxqpe65/4/2019 4:13 PM10/12/2019 12:47 PM * Full Code Date ActivatedDate InactivatedComments02/27/2019 12:39 PM09/04/2019 5:49 AM Care Teams Team MemberRelationshipSpecialtyStart DateEnd Date Alex Bales MD [address] [place] [address] [place] [address] PCP - GeneralFamily Bgkebiac53/22/19 Tarik Almanzar DO [address] [place] [address] Consulting PhysicianOrthopedic Surgery03/23/20
--- OUTSIDE RECORDS SUMMARY | 2025-09-29 15:04 | XMS_ITS | Patient Health Record ---
Author Organization [facility] Address [address] [place] [address] Care Team Providers Care Coat Room Attendant Name Role Phone Alex Bales Primary Care Provider Dalton Wynn Unavailable [phone] Troy Bell Unavailable [phone] Allergies Allergen (clinical drug ingredient) Drug/Non Drug Allergy documented on EMR Reaction Allergy Type Onset Date Status penicillin (uncoded)UnknownAllergyActiveseasonal (uncoded)UnknownAllergyActive Results Component Value Reference Range Notes SCC- HIP W/ PELVIS, RIGHT [id number] Reviewed date:10/15/2024 03:44:11 PM Interpretation: Performing Lab: Notes/Report: MRI : Cervical Spine W/O Con trast - 34405 (Not yet reviewed by provider) Interpretation: Performing Lab: Notes/Report: Reason For Referral Reason APPROVED ...Obtain a uthorization for lumbar spine MRI Diagnosis 1 Pain in right hip (M 25.551) Referral Organization [facility] Referring Provider First Name Dalton Referring Provider Last Name Hola Referring Provider Speciality Orthopedic Surgery Referred Organization [facility] Referred Address [address] [place] [phone], Procedure 1 MRI Lumbar Spine w/o Dye (09029) General Notes Janel Goncalves 025 03:15:10 PM >APPROVED PER JAY Authorization #[id number] Tracking #[id number] VALID 07/22/2025-09/18/2025 COPY IN CHART MA NOTIFED Referral Priority Routine Referral Appointment Date 08/04/[address] ROCIO [facility] Diagnosis 1 Myelopathy (G95.9) Referral Organization [facility] Referring Provider First Name Troy Referring Provider Last Name Ray Referring Provider Speciality Orthopedic Surgery Referred Organization [facility] Referred Address [address] [facility] [address] ,[place], [place],[address], General Notes SyphSebas whiteheadta 12/2024 10:33:09 AM >, Celia Lowe 08/06/2025 08:18:39 AM > Called and lmovm to schedule with Dr Chan.//Chrissy whipple Amanda 08/08/2025 08:25:51 AM > Called and lmovm to schedule with Dr Chan- went straight to .//Chrissy whipple Amanda 08/11/2025 08:28:42 AM >Called and lmovm to schedule w/ Dr Chan- went Straight to vm- lmovm- called three times.//ar Referral Priority Routine Reason APPROVED......................................08/15/25.......................... ........[facility] MRI CERVICAL SPINE W/O CONTRAST Diagnos is 1 Myelopathy (G95.9) Referra l [facility] Referri ng Provide r First Name Troy Referri rosalee Provide r Last Name Ray turk Provide r Special ity Orthopedic Surgery Referre d [facility] Referre d Address [address] [facility] [address],[place],[address], Procedu re 1 MRI Cervical w/o dye (30794) General Notes Sypherd, Latisha 08/05/2025 10:32:31 AM > , Lashae Doe 08/05/2025 12:32:07 PM > AUTHORIZATION # [id number] APPROVED AND VALID 08/15/25-10/14/25 PER COHERE. SCANNED INTO CHART. Referra l Priorit y Routine Reason REF/DR CHAN Diagnosis 1 Lumbar radiculopathy (M54.16) Referral Organization [facility] Referring Provider First Name Troy Referring Provider Last Name Ray Referring Provider Speciality Orthopedic Surgery Referred Organization [facility] Referred Provider Mark Anthony Chan Referred Address [address] ,[place], [place],[address], General Notes Latisha Villarreal 08/02 10:24:47 AM >PATIENT STATED THAT SHE HAS BEEN BACK IN FORTH WITH YOU TRYING TO GET SOMETHING SCHEDULED. PLEASE CALL HER WHEN YOU CAN, Celia Lowe 08/20/2025 10:40:28 AM > Call went straight to vm.//Chrissy whipple Amanda 08/21/2025 08:43:32 AM >Called to schedule- went straight to vm again- lmovm.//Chrissy whipple Amanda 08/25/2025 08:18:58 AM > Called and lmovm to schedule- went straight to vm again- called a total of 6 times between 2 referrals. Have yet to hear back from patient- if she calls ok to schedule in October.//Chrissy whipple Amanda 09/09/2025 10:50:50 AM > I called her yesterday and today to schedule- its going straight to vm- I cannot get through to her and she calls in the middle of clinic so I cannot always answer the phone but I called her 3 minutes after she called me. Her phone will not ring. Referral Priority Routine Social History Tobacco Use: Social History Observation Description Date Details (start date - stop date) Never Smoker NA - NA AUDIT-C (Standard) Question Answer Notes Did you have a drink containing alcohol in the p ast year? Yes How often did you have a drink containing alcohol in the past year?Declined to specify (0 point)How many drinks did you have on a typical day when you were drinking in the past year?Declined to specify (0 point)How often did you have six or more drinks on one occasion in the past year?Declined to specify (0 point)Bxqvjv6AefwnkxrzsvmpfYvkxdlcyJqtcnlz Control (Standard) Question Answer Notes Tobacco use: Nonsmoker Problems Problem Type SNOMED Code ICD Code Onset Dates Problem Status W/U Status Risk Notes Problem Arthralgia of the pe lvic region and thigh (033987465) Pain in right hip (M25.551) ActiveconfirmedProblemTrochanteric bursitis of right hip (173806947040018) Trochanteric bursitis, right hip (M70.61)ActiveconfirmedProblemAge-related osteoporosis (511675710)Age-related osteoporosis without current pathological fracture (M81.0)ActiveconfirmedProblemFracture of neck of femur (8119776) Fracture of unspecified part of neck of right femur, subsequent encounter for closed fracture with routine healing (S72.001D)ActiveconfirmedProblemFall on same level from slipping, tripping or stumbling (564074270)Fall on same level from slipping, tripping and stumbling without subsequent striking against object, initial encounter (W01.0XXA)ActiveconfirmedProblemClosed fracture of neck of femur (232236259)Closed fracture of neck of right femur, initial encounter (S72.001A)ActiveconfirmedProblemMyelopathy (42004367)Myelopathy (G95.9)ActiveconfirmedProblemUrinary incontinence (701005949)Urinary incontinence, unspecified type (R32)ActiveconfirmedProblemImpairment of balance (023733339)Balance problem (R26.89)ActiveconfirmedProblemHyperglycemia due to type 2 diabetes mellitus (298327428967401)Type 2 diabetes mellitus with hyperglycemia, unspecified whether tin worker insulin use (E11.65)Activeconfirmed ProblemPostoperative pain (903278851)Postoperative pain (G89.18)Activeconfirmed ProblemDegeneration of intervertebral disc of lumbosacral region with discogenic back pain and lower extremity pain (M51.372)Activeconfirmed Vital Signs Height 5 ft 4 in in 08/05/2025 Sixocb149 lbs110/05/2024BMI22.6611 Encounters Encounter Location Date Provider Diagnosis [facility] [address] [place] [address] 08/04/2025 Dalton Gomezland Pain in right hip M25.551 [facility] [address] [place] [address] 08/15/2025 Troy Roebke Cervical myelopathy G95.9 [facility] [address] [facility] [place] [address] 10/14/2024 Dalton Simental Fracture of unspecif ied part of neck of right femur, subsequent encounter for closed fracture with routine healing S72.001D [facility] [address] [facility] [address] [place] [address] 07/16/2025 Dalton Simental Fracture of unspecif ied part of neck of right femur, subsequent encounter for closed fracture with routine healing S72.001D ; Trochanteric bursitis, right hip M70.61 and Degeneration of intervertebral disc of lumbosacral region with discogenic back pain and lower extremity pain M51.372 [facility] [address] [place] [address] 08/05/2025 Troy Roebke Myelopathy G95.9 ; Degeneration of intervertebral disc of lumbosacral region with discogenic back pain and lower extremity pain M51.372 ; Type 2 diabetes mellitus with hyperglycemia, unspecified whether fpc insulin use E11.65 ; Urinary incontinence, unspecified type R32 ; Age-related osteoporosis without current pathological fracture M81.0 and Balance problem R26.89 [facility] [address] [place] [address] 08/19/2025 Troy Roebke Lumbar radiculopathy M54.16 Assessments Encounter Date Diagnosis (ICD Code) Assessment Notes Treatment Notes Treatment Clinical Notes Section Notes 10/14/2024 Fracture of unspecif ied part of neck of right femur, subsequent encounter for closed fracture with routine healing (ICD-10 - S72.001D) 07/16/2025Trochanteric bursitis, right hip (ICD-10 - M70.61)07/16/2025Fracture of unspecified part of neck of right femur, subsequent encounter for closed fracture with routine healing (ICD-10 - S72.001D)08/04/2025Pain in right hip (ICD-10 - M25.551)08/05/2025Myelopathy (ICD-10 - G95.9) Problem #1: Lumbar radiculopathy / lumbar degenerative disc disease (L5-S1 greater than L4-5) with right lower-extremity weakness and pain Problem #2: Uncontrolled type 2 diabetes mellitus affecting treatment options Problem #3: Urinary incontinence Problem #4: Osteoporosis Problem #5: Balance impairment, etiology under evaluation 08/05/2025Degeneration of intervertebral disc of lumbosacral region with discogenic back pain and lower extremity pain (ICD-10 - M51.372) Problem #1: Lumbar radiculopathy / lumbar degenerative disc disease (L5-S1 greater than L4-5) with right lower-extremity weakness and pain Problem #2: Uncontrolled type 2 diabetes mellitus affecting treatment options Problem #3: Urinary incontinence Problem #4: Osteoporosis Problem #5: Balance impairment, etiology under evaluation 08/15/2025ervical myelopathy (ICD-10 - G95.9)08/19/2025Lumbar radiculopathy (ICD-10 - M54.16) Right lumbar radiculopathy Balance issues-favored to be from the right foot weakness as opposed to any myelopathy since no severe stenosis on MRI Stable urinary symptoms Uncontrolled diabetes followed by endocrine 08/05/2025Type 2 diabetes mellitus with hyperglycemia, unspecified whether tin worker insulin use (ICD-10 - E11.65) Problem #1: Lumbar radiculopathy / lumbar degenerative disc disease (L5-S1 greater than L4-5) with right lower-extremity weakness and pain Problem #2: Uncontrolled type 2 diabetes mellitus affecting treatment options Problem #3: Urinary incontinence Problem #4: Osteoporosis Problem #5: Balance impairment, etiology under evaluation 07/16/2025Degeneration of intervertebral disc of lumbosacral region with discogenic back pain and lower extremity pain (ICD-10 - M51.372)08/05/2025 Urinary incontinence, unspecified type (ICD-10 - R32) Problem #1: Lumbar radiculopathy / lumbar degenerative disc disease (L5-S1 greater than L4-5) with right lower-extremity weakness and pain Problem #2: Uncontrolled type 2 diabetes mellitus affecting treatment options Problem #3: Urinary incontinence Problem #4: Osteoporosis Problem #5: Balance impairment, etiology under evaluation 08/05/2025ge-related osteoporosis without current pathological fracture (ICD-10 - M81.0) Problem #1: Lumbar radiculopathy / lumbar degenerative disc disease (L5-S1 greater than L4-5) with right lower-extremity weakness and pain Problem #2: Uncontrolled type 2 diabetes mellitus affecting treatment options Problem #3: Urinary incontinence Problem #4: Osteoporosis Problem #5: Balance impairment, etiology under evaluation 5Balance problem (ICD-10 - R26.89) Problem #1: Lumbar radiculopathy / lumbar degenerative disc disease (L5-S1 greater than L4-5) with right lower-extremity weakness and pain Problem #2: Uncontrolled type 2 diabetes mellitus affecting treatment options Problem #3: Urinary incontinence Problem #4: Osteoporosis Problem #5: Balance impairment, etiology under evaluation 10/14/2024Other For her right hip fracture status post intramedullary nailing we will continue to observe. More than likely pain increases due to coming off of her invoke. She will follow-up in 2 months to repeat x-rays and reassess her progress. Import medication 07/16/2025Other For her trochanteric bursitis we have discussed a steroid injection. Current A1c is greater than 11and I have recommended we hold off until blood sugars are better controlled. For her severe back pain with radicular symptoms I have recommended an MRI scan of her lumbar spine and will have her follow-up with for his evaluation and treatment recommendations. Import medication 08/05/2025Other Problem #1: Lumbar radiculopathy / DDD Assessment- Progressive right-sided foraminal stenosis at L5-S1 with associated pain, numbness, andmild weakness. Prior limited decompression now insufficient; potential surgical option would require fusion due to risk of instability. Patient not currently a candidate for fusion given poor diabetes control - Ordered referral to pain management (Dr. Chan) for consideration of right- sided trans-foraminal steroid injection once glycemic control permits. - Offered and placed referral for formal lumbar-specific physical therapy - Discussed surgical fusion as last resort; requires HbA1c less than 7.5 and optimizing bone health. Problem #2: Uncontrolled diabetes mellitus AsseAssessment- HbA1c 11.2 (checked by PCP; repeat scheduled for tomorrow). Poor control currently precludes spinal injection or fusion. - Patient to follow up with PCP for diabetes management Problem #3: Urinary incontinence Assessment- Urge incontinence since hip fracture; no imaging evidence of central canal stenosis on lumbar MRI. Will monitor;. Problem #4: Osteoporosis Assessment- pt will follow up with PCP Problem #5: Balance impairment Assessment- Multifactorial; cervical pathology to be ruled out. - Ordered cervical spine MRI. - Follow-up visit planned after cervical MRI to review results and reassess balance issues. Problem #1: Lumbar radiculopathy / lumbar degenerative disc disease (L5-S1 greater than L4-5) with right lower-extremity weakness and pain Problem #2: Uncontrolled type 2 diabetes mellitus affecting treatment options Problem #3: Urinary incontinence Problem #4: Osteoporosis Problem #5: Balance impairment, etiology under evaluation 08/19/2025OtherWe discussed again that since she does not have any red flag symptoms she is not a surgical candidate at this time given her hemoglobin A1c of 13.6. She should continue with the therapy. We will alsoreplace a pain management referral since she was unable to get a hold of them last time. She will give us a callback if pain management and physical therapy fails and/or she gets her diabetes under better control. Optimal hemoglobin A1c for me in terms of going to surgery would be 7.5 or lower. Right lumbar radiculopathy Balance issues-favored to be from the right foot weakness as opposed to any myelopathy since no severe stenosis on MRI Stable urinary symptoms Uncontrolled diabetes followed by endocrine Plan Of Treatment Pending Test Test Name Order Date MRI : Cervical Spine W/O Contrast - 7214 1 08/05/2025 SFS - Lumbar Spine PT Order, Isometrics & Strenghening w/Modalities as needed, 2-3 times per week for 6 weeks 08/05/2025 PT EVAL AND TREAT 06/19/2024 SCC- HIP W/ PELVIS, RIGHT 91557 07/08/20 24 SCC- HIP W/ PELVIS, RIGHT 47147 07/16/20 25 Lumbar spine 3v ap,lat,spot - 10995 07/02 MRI : Lumbosacral Spine W/O Contrast - 7 214707/16/2025 Next Appt Details Provider Name:Mark Anthony Bre Rocio, 0 10/21/2025 11:30:00 AM, [address] [facility], [place], [address], Insurance Providers Payer Name Payer Address Payer Phone Subscriber Number Group Number Insured Name Patient Relationship to Insured Coverage Start Date Coverage End Date Medicare [employer] [address] [address] [place] [address] [id number] JULY CATALANelf - patient is the [id number] 2024 Medical (General) History Medical History History ICD Code Asthma Problems with AnesthesiaDiabetesGI Problems:High Blood PressureRespiratory problems:Drug AllergiesHigh cholesterol: YesOsteoarthritisRheumatoid arthritis Have you had any falls in the last year? YesSurgical History Surgery Date(Month/Year) Total elbow Right knee replacement
--- OUTSIDE RECORDS SUMMARY | 2025-09-29 15:04 | XMS_ITS | Clinical Summary ---
Author Organization [facility] Address [address] [facility], [address] [place] [address] Care Team Providers Care Application Integration Specialist Name Role Phone Nilton Jc DO Primary Care Provider Unavail able Allergies Active AllergyReactionsCriticalityNoted DateCommentsPropoxyphene N-Acetaminophen Nausea And VqxtlefzPyj83/14/2012OtherNausea Only,Other (See Comments)04/06/2012 Anesthesia, Difficulty with arousal MjiuaqbwptpCrnfWqj00/06/2012 Medications MedicationSigDispense QuantityRefillsLast FilledStart DateEnd DateStatus albuterol (PROVENTIL) (2.5 MG/3ML) 0.083% nebulizer solution Take 2.5 mg by nebulization every 6 hours as needed.Active Fexofenadine-Pseudoephedrine (LUISANA-D 12 HOUR PO) Take by mouth as needed.Active sulfaSALAzine (AZULFIDINE) 500 MG tablet Take 500 mg by mouth 2 times daily.Active FLUoxetine (PROZAC) 40 MG capsule Take 40 mg by mouth daily.Active trandolapril (MAVIK) 4 MG tablet Take 4 mg by mouth daily.Active adalimumab (HUMIRA) 40 MG/0.8ML injection Inject 40 mg into the skin once a week.Active Methotrexate Sodium (METHOTREXATE PO) Take 4 mg by mouth once a week.Active verapamil (VERELAN PM) 180 MG CR capsule Take 180 mg by mouth 2 times daily.Active ezetimibe-simvastatin (VYTORIN) 10-20 MG per tablet Take 1 tablet by mouth nightly.Active metformin (GLUMETZA) 1000 MG (MOD) ER tablet Take 1,000 mg by mouth 2 times daily (with meals).Active sucralfate (CARAFATE) 1 GM tablet Take 1 g by mouth nightly.Active esomeprazole (NEXIUM) 40 MG capsule Take 40 mg by mouth every morning (before breakfast).Active Active Problems ProblemNoted DateDiagnosed BumtOnscswfgl84/14/2012GERD (gastroesophageal reflux disease)05/15/20120040Wuuoqlby75/14/2012Weight loss05/15/2012 Family History Medical HistoryRelationNameCommentsHypertensionBrotherOtherFather blood clot Heart DefectMotherLupusSisterRelationNameStatusCommentsBrotherAliveFather DeceasedMotherAliveSisterDeceased Social History Tobacco UseTypesPacks/DayYears UsedDateSmoking Tobacco: NeverSmokeless Tobacco: NeverAlcohol UseStandard Drinks/WeekCommentsNo0 (1 standard drink = 0.6 oz pure alcohol)CommentsUnknownSex and Gender InformationValueDate RecordedSex Assigned at BirthNot on fileLegal UxzKjeyeu39/12/2013 11:24 PM ESTGender IdentityNot on fileSexual OrientationNot on file Last Filed Vital Signs Vital SignReadingTime TakenCommentsBlood Cdfocmos014/8306 2:25 PM EDT Dxsgr0864 2:25 PM KHLGunlvcvuusf04.4 ??C (97.5 ??F)03/04/2013 1:54 PM EDTRespiratory Xylo2153 2:25 PM EDTOxygen Ldckvjjefh89%03/04/2013 2:25 PM EDTInhaled Oxygen Concentration--Dxpqwr70 kg (154 lb 4.8 oz)05/15/2012 12:14 PM AWVPkehoy841.6 cm (5' 4 )05/15/2012 12:14 PM EDTBody Mass Index26.49 05/15/2012 12:14 PM EDT Plan of Treatment Not on file Care Teams Team MemberRelationshipSpecialtyStart DateEnd Date Nilton Jc DO PCP - General05/15/12
--- OUTSIDE RECORDS SUMMARY | 2025-09-29 15:04 | XMS_ITS | Clinical Summary ---
Author Organization [facility] Address [address] [address] Care Team Providers Care Continuous Towel Roller Name Role Phone Unavailable Primary Care Provider Unavailabl e Social History Tobacco UseTypesPacks/DayYears UsedDateSmoking Tobacco: Never Assessed CommentsUnknownSex and Gender InformationValueDate RecordedSex Assigned at Not on fileLegal MhyQcbaxh21/29/2022 9:31 PM EDTGender IdentityNot on fileSexual OrientationNot on file Plan of Treatment Not on file
--- OUTSIDE RECORDS SUMMARY | 2025-09-29 15:04 | XMS_ITS | Patient Health Record ---
Author Organization [facility] in [place] Address [address] [place] [address] Care Team Providers Care Ampoule Inspector Name Role Phone Tasha Cabrera Primary Care Provider Allergies Allergen (clinical drug ingredient) Drug/Non Drug Allergy documented on EMR Reaction Allergy Type Onset Date Status PenicillinrashDrug AllergyActive Results Component Value Reference Range Notes COVID-19, Flu A+B IH (Not ye t reviewed by provider) Interpretation: Performing Lab: Notes/Report: COVID neg FLU AnegFLU BnegControlpresentXR DEXA axial skeleton Reviewed date:11/12/2024 08:30:31 AM Interpretation: Performing Lab: Notes/Report: Source Facility: [place] [address] XRay Report Signed Patient: ELSA CATALAN MR#: [id number] : 1960 Acct:[id number] Age/Sex: 64 / F ADM Date: 11/05/24 Loc: RAD Attending Dr: TASHA CABRERA Ordering Physician: TASHA CABRERA Date of Service: 11/05/24 Procedure(s): XR DEXA axial skeleton Accession Number(s): [id number] cc: TASHA CABRERA [place] [address] Patient Name: ELSA CATALAN MRN: [id number] date: 1960 Sex: F Assigned Patient Location: RAD Current Patient Location: [facility] Accession/Order Number: [id number] Exam Date: 11/05/2024 08:10 Report Date: 11/05/2024 09:49 At the request of: TASHAKALEE CABRERA Procedure: XR DEXA axial skeleton EXAMINATION: XR DEXA axial skeleton HISTORY: Age Related Osteoporosis COMPARISON: No relevant comparison available. TECHNIQUE: Dual-energy X-ray absorptiometry (DXA) was performed. FINDINGS: FOREARM ANALYSIS: Average bone mineral density is 0.480 g/cm2. T-score (standard deviation relative to young adult mean): -3.3 . HIP ANALYSIS: Lowest bone mineral density is within the left femoral neck, 0.924 g/cm2. T-score (standard deviation relative to young adult mean): -0.8 . XR/XR DEXA axial skeleton IMPRESSION: World Health Organization Classification: Osteoporosis - High Fracture Risk FRAX: Cannot be calculated. Pharmacologic treatment recommendations * No uniform recommendation applies to all patients. Management plans must be individualized. * Consider initiating pharmacologic treatment in postmenopausal women and men >= 50 years of age who have the following: Primary fracture prevention: * T-score <= - 2.5 at the femoral neck, total hip, lumbar spine, 33% radius (some uncertainty with existing data) by DXA. * Low bone mass (osteopenia: T-score between - 1.0 and - 2.5) at the femoral neck or total hip by DXA with a 10-year hip fracture risk >= 3% or a 10-year major osteoporosis-related fracture risk >= 20% (i.e., clinical vertebral, hip, forearm, or proximal humerus) based on the [place]-adapted FRAXregistered model. Secondary fracture prevention: * Fracture of the hip or vertebra regardless of BMD [4, 5]. * Fracture of proximal humerus, pelvis, or distal forearm in persons with low bone mass (osteopenia: T-score between - 1.0 and - 2.5). The decision to treat should be individualized in persons with a fracture of the proximal humerus, pelvis, or distal forearm who do not have osteopenia or low BMD [12, 13]. Angel MS, Gianni SL, Ezekiel KL, Aline EM, Naima KG, AJ, Siris ES. The clinician's guide to prevention and treatment of osteoporosis. Osteoporos Int. 2021;3310):0144-4434. doi: 10.1007/e62876-158-56868-g. Epub 2021Jan 27. Erratum in: Osteoporos Int. 2021Apr 28;: PMID: 32950975; PMCID: RXF8654077. Electronically authenticated by: DALTON FAUSTIN Date: 11/05/2024 09:49 Dictated By: Dalton Faustin M.D. Signed By: 11/05/2452 DD/ TD/TT: [employer] Net Developer:XR hip RT 2V w/ pelvis Reviewed date:10/14/2024 02:48:44 PM Interpretation: Performing Lab: Notes/Report: Source Facility: [place] [address] [place] [address] XRay Report Signed Patient: ELSA CATALAN MR#: [id number] : 1960 Acct:[id number] Age/Sex: 64 / F ADM Date: 10/14/24 Loc: EC Attending Dr: Dalton Davalos M.D. Ordering Physician: Dalton Davalos M.D. Date of Service: 10/14/24 Procedure(s): XR hip RT 2V w/ pelvis Accession Number(s): [id number] cc: TASHA CABRERA ; Dalton Davalos M.D. The [place] [address] Patient Name: ELSA CATALAN MRN: [id number] date: 1960 Sex: F Assigned Patient Location: Current Patient Location: Accession/Order Number: [id number] Exam Date: 10/14/2024 09:50 Report Date: 10/14/2024 13:45 At the request of: DALTON DAVALOS Procedure: XR hip RT 2V w/ pelvis PROCEDURE: XR hip RT 2V w/ pelvis COMPARISON: 09/02/2024 HISTORY: RIGHT HIP PAIN FINDINGS: BONES:Stable remote right intertrochanteric hip fracture with internal fixation. No acute fracture, dislocation or mechanical failure. Moderate degenerative changes of the spine SOFT TISSUES:Negative. No visible soft tissue swelling. EFFUSION:None visible. OTHER: Vascular calcifications XR/XR hip RT 2V w/ pelvis IMPRESSION: No acute abnormality Electronically authenticated by: FARSHAD GERARDO Date: 10/14/2024 13:45 Dictated By: Farshad Gerardo M.D. Signed By: 10/14/247 DD/ 44 TD/TT: [employer] Net Developer: Reason For Referral No Information Medications Medication SIG (Take, Route, Frequency, Duration) Notes Start Date End Date Status Alendronate Sodium 70 MG 1 tablet 30 min utes before the first food, beverage or medicine of the day with plain water Orally once weekly; Duration: 30 days ActiveSimvastatin 40 MGtake 1 tablet by mouth once daily Oral; Duration: 90 Days ActiveLeflunomide 20 MG1 tablet Oral Once a day; Duration: 90 daysActiveTrue Metrix Air Glucose Meter w/Device; Duration: 90 DaysActiveLantus 100 UNIT/ML 55units Subcutaneous at vdqehxx2904/15/2024ctiveTrelegy Ellipta 100-62.5-25 MCG/ACT1 puff Inhalation Once a day; Duration: 30 daysActiveLevsin 0.125 MG1 tablet as needed Orally TID prn; Duration: 7 days4ActiveTRUEplus Lancets 33G -; Duration: 90 DaysActiveAzithromycin 250 MGas directed Orally daily; Duration: 5 daystake 2 tablets po on first day than 1 tablet po days 2-5 5ActiveLevothyroxine Sodium 200 MCG1 tablet in the morning on an empty stomach Oral; Duration: 90 daysActiveTrue Metrix Blood Glucose Test -In Vitro; Duration: 90 DaysActiveBenzonatate 200 MG1 capsule as needed Orally Three times a day; Duration: 7 days5ActiveMetoprolol Succinate ER 50 MG1 tablet Orally Once a day; Duration: 90 daysActiveAlbuterol Sulfate HFA 108 (90 Base) MCG/ACTINHALE 1 TO 2 PUFFS BY MOUTH Inhalation Q 4 as needed; Duration: 16 days ActiveMethotrexate 2.5 MGtake 10 tablets by mouth every week Oral; Duration: 35 daysActiveDroplet Pen Siloam 32G X 4 MM; Duration: 90 DaysActiveOndansetron HCl 4 MG1 tablet Orally BID prn; Duration: 7 days04/15/2024ctivecloNIDine HCl 0.1 MG1 tablet Orally BID; Duration: 30 days09/29/2023ctiveNovoLOG 100 UNIT/MLper sliding scale Injection 12,15,18 per glucose readingActiveGabapentin 800 MG1 tablet Oral qid; Duration: 30 daysActiveRinvoq 15 MG1 tablet Orally Once a day ActiveFolic Acid 1 MG2 tablet Oral Once a day; Duration: 90 daysActivepredniSONE 20 MG2 tablet Orally Once a day; Duration: 5 days5ActiveJardiance 25 MG 1 tablet Orally Once a day; Duration: 90 daysActive Social History Tobacco Use: Social History Observation Description Date Details (start date - stop date) Never Smoker NA - NA Tobacco Use/Smoking Question Answer Notes Patient is a nonsmoker Alcohol Screen (Audit-C) Question Answer Notes Did you have a drink containing alcohol in the p ast year? No Qxwydc9OprjcntijbjzmoNjytcrzdIMJNO-Q (Standard) Question Answer Notes Did you have a drink containing alcohol in the p ast year? No Jpqyrx1UoeeihhfxbpfmyUqyjqsfm Problems Problem Type SNOMED Code ICD Code Onset Dates Problem Status W/U Status Risk Notes Problem Chronic abdominal pain (103087208) Chroni c abdominal pain (789.00) ActiveconfirmedProblemChronic obstructive pulmonary disease (66992452)Chronic obstructive pulmonary disease, unspecified (J44.9)ActiveconfirmedProblemCataract (654167044)Unspecified cataract (H26.9)ActiveconfirmedProblemMedial epicondylitis of left elbow (199616190857828)Medial epicondylitis, left elbow (M77.02)ActiveconfirmedProblemShortness of breath (833713352)Shortness of breath (R06.02)ActiveconfirmedProblemFatigue (70762317)Fatigue (R53.83)Activeconfirmed ProblemHypertension (28849918)Hypertension (I10)ActiveconfirmedProblemRheumatoid arthritis (79492102)Rheumatoid arthritis (M06.9)ActiveconfirmedProblemAsthma (596837131)Asthma (J45.909)ActiveconfirmedProblemCOPD - Chronic obstructive pulmonary disease (43751002)COPD (chronic obstructive pulmonary disease) (J44.9) ActiveconfirmedProblemHypothyroidism (34409837)Hypothyroidism (E03.9)Active confirmedProblemHypertension (32497165)HTN (hypertension) (I10)Activeconfirmed ProblemTachycardia (0239742)Tachycardia (R00.0)ActiveconfirmedProblemHypothyroid (86845280)Hypothyroid (E03.9)ActiveconfirmedProblemTroponin I above reference range (522010577)Elevated troponin (R79.89)ActiveconfirmedProblemSyncope (675010324)Syncope (R55)ActiveconfirmedProblemUrinary incontinence (774171277) Urinary incontinence (R32)ActiveconfirmedProblemRheumatoid arthritis (44256179) RA (rheumatoid arthritis) (M06.9)ActiveconfirmedProblemSinusitis (73416875) Sinusitis (J32.9)ActiveconfirmedProblemOsteoporosis (30447612)Osteoporosis (M81.0)ActiveconfirmedProblemSeasonal allergic rhinitis (422144140)Seasonal allergic rhinitis (J30.2)ActiveconfirmedProblemDiabetes mellitus type 1 (71513190)Diabetes Mellitus Type 1 (E10.9)ActiveconfirmedProblemFibromyalgia (761594118)Fibromyalgia (M79.7)ActiveconfirmedProblemSpondylolisthesis (015812683)Spondylolisthesis (M43.10)ActiveconfirmedProblemNuclear senile cataract (953859736)Nuclear cataract, bilateral (H25.13)ActiveconfirmedProblem Degenerative joint disease (833218106)Degenerative joint disease (M19.90)Active confirmedProblemAltered mental status (266482510)Altered mental status (R41.82) ActiveconfirmedProblemMixed anxiety and depressive disorder (789905961)Anxiety and depression (F41.9)ActiveconfirmedProblemLong-term current use of insulin (260246066)Insulin long-term use (Z79.4)ActiveconfirmedProblemChest pain (92220376)Chest pain in adult (R07.9)ActiveconfirmedProblemType II diabetes mellitus without complication (501715232)Insulin dependent diabetes mellitus without complication (E11.9)ActiveconfirmedProblemEssential hypertension (06267308)BP (high blood pressure) (I10)ActiveconfirmedProblem hypercholesterolemia (disorder) (17533902)Hypercholesteremia (E78.00)Active confirmedProblemMyalgia (17817984)Myalgia (M79.10)ActiveconfirmedProblemDiabetes mellitus (86934476)Diabetes mellitus (E11.9)Activeconfirmed Vital Signs Heart Rate 92 /min 11/14/2024 Kknmaxuybom25.3 degrees Ihqyowsdlj01/13/7238Shqzrltd67 %11/14/2024lood pressure mm Hg09/29/20255110Llngjg40 in09/29/2025lood pressure mm Hg 09/29/20251150Kfnrxk150.0 lbs1MI23.34 kg/m209/29/2025 Encounters Encounter Location Date Provider Diagnosis [address] [address] 09/29/2025 Tasha Cabrera Chronic obstructive pulmonary disease, unspecified J44.9 ; Sinusitis J32.9 ; Osteoporosis M81.0 ; Back pain M54.9 and Right shoulder pain M25.[address] [place] [place] [address] 10/28/2024 Tasha Cabrera HTN (hypertension) I 10 ; RA (rheumatoid arthritis) M06.9 and Urinary incontinence R32 [address] [address] 11/14/2024 Tasha Cabrera Cough R05.9 and URI (upper respiratory infection) J06.9 [facility] [address] [place] [address] 10/21/2024 Tasha Cabrera [facility] [place] [address] 10/28/2024[facility] [place] [address]/08/2025[facility] [address] [place] [address]/03/2025Tasha Cabrera Assessments Encounter Date Diagnosis (ICD Code) Assessment Notes Treatment Notes Treatment Clinical Notes Section Notes 10/28/2024 HTN (hypertension) (ICD-10 - I10 ) continue monitor BP at home report if running high bring bp cuff in next visit 10/28/2024RA (rheumatoid arthritis) (ICD-10 - M06.9)11/14/2024ough (ICD-10 - R05.9)11/14/2024URI (upper respiratory infection) (ICD-10 - J06.9)fu if not aavpnboep63/29/2025hronic obstructive pulmonary disease, unspecified (ICD-10 - J44.9)stable, continue with suaqkvoz37/29/2025Sinusitis (ICD-10 - J32.9) 09/29/2025Osteoporosis (ICD-10 - M81.0) has not been taking she states discussed importance of treating the osteoporosis repeat Dexa 1 year 10/28/2024Urinary incontinence (ICD-10 - R32)09/29/2025ack pain (ICD-10 - M54.9)09/29/2025Right shoulder pain (ICD-10 - M25.511)10/28/2024Other discussed preventive testing gets mammograms discussed cologuard Plan Of Treatment Pending Test Test Name Order Date UA (URINALYSIS, COMPLETE) 04/15/2024 UA (URINALYSIS, COMPLETE) 10/28/2024 HEMOGLOBIN A1C (GLYCO) 10/28/2024 IRON, TOTAL 10/28/2024 LIPID PANEL (CHOL/TRIG/HDL/LDL) 10/28/19 25 CBC WITH DIFF (EXP 08/2025) 10/28/2024 VITAMIN D, 25 LEVEL (TOTAL) 10/28/2024 XR Abdomen AP (1 view) (KUB) * Urine Culture 04/15/2024 Urine Culture 10/28/2024 Insulin Level 10/28/2024 INFLUENZA A and B, NASAL/NASOPHARYNGEAL (PCR) 09/28/2023 COVID-19, Flu A+B IH 07/10/2024 COVID-19, Flu A+B IH 11/14/2024 SARS COVID-2 NASAL - PCR 09/28/2023 XR DEXA BONE DENSITY 10/28/2024 THYROID PANEL (T4/TSH/FREE T3) XR SHOULDER RT 2V or > 09/29/2025 XR lumbar spine 2-3V 09/29/2025 CMP (COMP MET MONROY) w/eGFR CKD-EPI 2024 Next Appt Details Provider Name:Tasha crowe, 12/24/2025 08:30:00 AM, [address] [place], [address], Insurance Providers Payer Name Payer Address Payer Phone Subscriber Number Group Number Insured Name Patient Relationship to Insured Coverage Start Date Coverage End Date [employer] ADV PLAN [address] [address] [place] [address] [id number] Leon Elsa Self - patient is the insured 3 Medical (General) History Medical History History ICD Code Tachycardia R00.0 Chest pain in adult R07.9 Shortness of breath R06.02 Syncope R55 Spondylolisthesis M43.10 Elevated troponin R79.89 Nuclear cataract, bilateral H25.13 Seasonal allergic rhinitis J30.2 Fatigue R53.83 Myalgia M79.10 Anxiety and depression F41.9 Hypothyroid E03.9 Chronic abdominal pain 789.00 Asthma J45.909 COPD (chronic obstructive pulmonary dise ase) J44.9 Hypertension I10 Diabetes Mellitus Type 1 E10.9 Fibromyalgia M79.7 Hypercholesteremia E78.00 Rheumatoid arthritis M06.9 Surgical History Surgery Date(Month/Year) Right Hip Surgery- Fracture 07/2024 LEFT lens implant 04/27/2023 Hysterectomy ThyroidectomyParathyroidiecomyTotal knee, rtLt total elbow yjfnogxjivsz79/4/19Rt total elbow arthroplasty02/27/19Hospitalization History Reason Date(Month/Year) see above
--- OUTSIDE RECORDS SUMMARY | 2025-09-29 15:04 | XMS_ITS | Clinical Summary ---
Author Organization [facility] Address [facility] [place] [address] Care Team Providers Care Pediatric Geneticist Name Role Phone Alex Bales MD Primary Care Provider [phone] Allergies Active AllergyReactionsCriticalityNoted DateCommentsPropofolGI Upset05/18/2024 Problems awakening and GI upset with general anesthesia AdskshxspjxzvAdykXaprdu64/24/9896Xtaekivrifgp29/07/2003 (Indocin) extremely high temperature elevation Penicillin G012/06/2002 rash Jjyjpncyahdb08/07/2003 pt. not sure Medications MedicationSigDispense QuantityRefillsLast FilledStart DateEnd DateStatus Cholecalciferol, Vitamin D3, 5,000 unit Tab Take 1 tablet by mouth once daily.ctive insulin needles, DISPOSABLE, (BD INSULIN PEN NEEDLE UF) 31 gauge x 5/16 ndle Indications:Rheumatoid arthritis of multiple sites without organ or system involvement with positive rheumatoidfactor (HCC),Elevated sed rateSubstitute equivalent syringe/needles for weekly sq methotrexate 90 Each Active levothyroxine (SYNTHROID) 50 mcg tablet take 1 tablet by mouth once daily ALONG WITH 200 MG TABLET FOR TOTAL OF 250 MG 07/02/2020Active levothyroxine (SYNTHROID) 200 mcg tablet Take 200 mcg by mouth once daily.07/02/2020Active JARDIANCE 25 mg tablet Take 25 mg by mouth once daily.07/02/2020Active VENTOLIN HFA 90 mcg/actuation inhaler inhale 2 puffs by mouth and INTO THE LUNGS every 4 hours if vqruzu5907/02/2020 Active insulin aspart U-100 (NOVOLOG) 100 unit/mL Inject subcutaneously.01/21/2019Active insulin glargine (LANTUS SOLOSTAR, BASAGLAR KWIKPEN) 100 unit/mL (3 mL) Inject 50 Units subcutaneously.01/21/2019Active irbesartan (AVAPRO) 150 mg tablet Take 150 mg by mouth once daily.06/10/2020Active simvastatin (ZOCOR) 20 mg tablet Take 20 mg by mouth once daily.11/12/2020ctive metoprolol succinate ER (TOPROL XL) 25 mg 24 hr tablet Take 25 mg by mouth once daily.10/19/2020ctive cloNIDine HCl (CATAPRES) 0.1 mg tablet Take 0.1 mg by mouth twice daily.11/19/2020ctive lidocaine (LIDODERM) 5 % apply 1 patch to the aRM once daily IN THE SSJSKCUCJ98/18/2021ctive VITAMIN E ORAL Take by mouth.Active docusate sodium (COLACE) 100 mg capsule Take 1 capsule by mouth twice daily as needed for constipation. 20 capsule 03/17/2021ctive folic acid 1 mg tablet Indications:Rheumatoid arthritis of multiple sites without organ or system involvement with positive rheumatoidfactor (HCC)Take 2 tablets by mouth once daily. 180 tablet ctive predniSONE (DELTASONE) 5 mg tablet Indications:Rheumatoid arthritis of multiple sites without organ or system involvement with positive rheumatoidfactor (HCC)Day 1=6tabs with food, Day 2=5tabs, Day 3=4tabs, Day 4=3tabs, Day 5=2tabs, Day 6=1tab daily thereafter, No NSAIDs on med 90 tablet ctive VITAMIN B COMPLEX ORAL Take by mouth.Active Syringe with Needle, Disp, (BD SYRINGE) 1 mL 25 gauge x 5/8 Indications:Rheumatoid arthritis of multiple sites without organ or system involvement with positive rheumatoidfactor (HCC)To use with Methotrexate Sodium injection. 1ml weekly SQ 12 Each ctive methotrexate 2.5 mg tablet Indications:Rheumatoid arthritis of multiple sites without organ or system involvement with positive rheumatoidfactor (HCC)TAKE 10 TABS ONCE A WEEK with food. No alcohol. Hold if on antibiotics or ill. Hold 1-2weeks after vaccines. 50 tablet ctive methotrexate sodium 25 mg/mL soln Indications:Rheumatoid arthritis of multiple sites without organ or system involvement with positive rheumatoidfactor (HCC),Elevated sed rateSq 1ml injection once a week. No alcohol. Hold if on antibiotics or ill. 25 mL ctive sulfaSALAzine EC (AZULFIDINE EN-TABS) 500 mg EC tablet Indications:Rheumatoid arthritis of multiple sites without organ or system involvement with positive rheumatoidfactor (HCC)Take 1 tablet by mouth three times a day. 270 tablet ctive ergocalciferol 50,000 unit capsule (VITAMIN D2, DRISDOL) Indications:Vitamin D deficiency(take by mouth with food twice a week, ONE CAPSULE ON MONDAY AND ONE ON MONDAY) FOR A TOTAL OF 8 WEEKS. 16 capsule 05/15/2024ctive gabapentin (NEURONTIN) 800 mg tablet Indications:Chronic bilateral low back pain with right-sided sciaticaTake 4tabs by mouth per day 120 tablet ctive Syringe with Needle, Safety (SAFETY-ASHISH TB SYR 1CC/25GX5/8 ) 1 mL 25 gauge x 5/8 syrg Indications:Rheumatoid arthritis of multiple sites without organ or system involvement with positive rheumatoidfactor (HCC)Sq injection with methotrexate. Ok to substitute with syringe/needles available and covered by insurance. 90 Each ctive simvastatin (ZOCOR) 40 mg tablet Take 40 mg by mouth.07/21/2021ctive FLUoxetine (PROZAC) 10 mg capsule Take 10 mg by mouth.07/21/2021ctive alendronate (FOSAMAX) 70 mg tablet Indications:Postmenopausal osteoporosis of multiple sites,Personal history of (healed) other pathological fractureTake 1tab by mouth once a week on empty stomach with full glass of water. No food/drink or lying down for 45-60minutes after med. 12 tablet ctive leflunomide (ARAVA) 20 mg tablet Indications:Rheumatoid arthritis of multiple sites without organ or system involvement with positive rheumatoidfactor (HCC)Take 1tab daily by mouth with food. Hold in on antibiotics or ill. 90 tablet 5Active upadacitinib tablet ER 24 hr 15 mg (RINVOQ) Indications:Rheumatoid arthritis of multiple sites without organ or system involvement with positive rheumatoidfactor (HCC)Take 1 tablet by mouth once daily. Swallow whole; DO NOT crush, chew, or open. Hold if on antibiotics or ill. Hold 1weeks after vaccines. 30 tablet 5Active Active Problems ProblemNoted DateDiagnosed DateElevated C-reactive protein (CRP)05/18/2024 Malnutrition of mild iftmpg3103/16/2021Wound infection after orwcgyd5703/15/2021 Assessment & Plan (03/16/2021 11:12 AM EDT): Assessment: POA PLAN: Pain control continue present analgesic regimen MRI LS completed ID c/s -hold abx for now Incentive Spirometer 10-15 times every hour instructed No central lines Mobilize QID OOB w/ assistance DVT ppx: IPCs, SQH 5,000 units q12h hold after 2099 Urinary Catheter: No Discharge:TBD D/w Assessment & Plan (03/15/2021 11:23 AM EDT): Assessment: POA PLAN: Pain control continue present analgesic regimen MRI LS ID c/s Labs Incentive Spirometer 10-15 times every hour instructed No central lines Mobilize QID OOB w/ assistance DVT ppx: IPCs, SQH 5,000 units q12h hold for now Urinary Catheter: No Discharge:TBD D/w Jgclfajqpiljag05/14/2021 Assessment & Plan (03/15/2021 11:28 AM EDT): Assessment: POA PLAN: Continue home Rx/regimen Mild intermittent asthma without ansnrqhsfenr73/30/2021 Assessment & Plan (01/29/2021 12:03 PM EDT): Seasonal in nature, worse now during allergy season. Using albuterol inhaler 1-2 times per week. No recent flares, at baseline status per patient. Essential opravduwmzzs62/30/2021 Assessment & Plan (03/15/2021 11:28 AM EDT): Assessment: POA PLAN: Continue home Rx/regimen Assessment & Plan (01/29/2021 12:04 PM EDT): Controlled on Rx Last 3 Encounter BP Readings: Date: BP: 01/29/2021 125/68 12/10/2020 173/86 07/13/2020 160/98 Other utfdtgqifvwlyy93/30/2021 Assessment & Plan (03/15/2021 11:27 AM EDT): Assessment: POA PLAN: Continue home Rx/regimen Assessment & Plan (01/29/2021 12:04 PM EDT): On Rx Type 2 diabetes mellitus without complication, with long-term current use of qvcvzpz0701/29/2021 Assessment & Plan (03/15/2021 11:27 AM EDT): Assessment: POA PLAN: ADA SSI Assessment & Plan (01/29/2021 12:06 PM EDT): Last A1c 9.9% in scanned document from 01/20/21 On Lantus QHS, novolog SS, empagliflozin- Instructions given on patient regarding perioperative use. Accucheck ordered for DOS Osteopenia of multiple sites12/16/2020Wrist swelling, right12/10/2020ilateral elbow joint pain12/10/2020Numbness and tingling of left hand01/16/2020Medial epicondylitis of both rbhusv41Lateral epicondylitis of both elbows 07/23/2018Primary osteoarthritis of both dudpcu73Primary osteoarthritis of both wzcfma64Osteoarthritis of carpometacarpal (CMC) joint of both djfnyh08Bilateral wrist pain07/16/2018Bilateral hand pain07/16/2018Joint stiffness of multiple sites07/16/2018Long-term use of high-risk medication 07/16/2018Productive cough12/01/2016Chronic pain of both dwdoqszlu35/28/2016 Postherpetic hriajewbv07/28/2016Dry eye dbkuwpgf92/28/2016Elbow pain, right 01/22/2016Nausea and vomiting in adult09/16/2015Pain in joint, multiple sites 08/06/2015Secondary osteoarthritis of multiple sites08/06/2015Finger pain, right 11/12/20142822Vpmivbt33/11/7774Yefxeagozkru54/28/2014Synovitis of hand06/30/2014Rash and nonspecific skin tyvzlkkm09/29/2014Knee pain, right06/30/2014Rheumatoid arthritis of multiple sites without organ or system involvement with positive avknvcbuufjxibej95/25/2014 Assessment & Plan (01/29/2021 12:03 PM EDT): On Humira, Leflunomide, Prednisone. Affects hands, wrists, elbows mostly. No neck involvement. Vitamin D /30/2013Elevated sed rate08/24/2012Elevated LFTs01/27/2012 CTS (carpal tunnel syndrome)10/07/20110645Rlbopjcfxyc08/06/2012Hip pain, bilateral 10/07/2011 Encounters DateTypeDepartmentCare VcouEcemgiufrxw83/01/2025 Patient [facility] [address] [place] [address] Georgina Blanco MD Sorry I missed you!08/25/2025 Patient [facility] [place] [address] Marta Kerr RPh At your next appointment, choose [facility].from Last 3 Months Immunizations ImmunizationAdministration DatesNext Dueinfluenza (IIV4) vaccine, age 6 mo - 64 yr, quadrivalent, PF (AFLURIA, FLUARIX, FLULAVAL, FLUZONE)05/30/2020influenza (ccIIV4) vaccine, age 6+ mo, quadrivalent, PF (FLUCELVAX)09/03/2018tetanus diphtheria pertussis (Tdap) vaccine, age 7+ yr (ADACEL, BOOSTRIX)06/17/2024 Family History Medical HistoryRelationCommentsIschemic Heart DiseaseFatherheart attack - age 63 Ischemic Heart DiseaseMotherheart attack- age 84Systemic Lupus Erythematosus SisterRelationStatusCommentsFatherDeceasedMotherDeceasedSisterDeceased Social History Tobacco UseTypesPacks/DayYears UsedDateSmoking Tobacco: NeverPassive Smoke Exposure: NeverSmokeless Tobacco: Never Tobacco Cessation:Counseling Given: Yes Alcohol UseStandard Drinks/WeekCommentsNo0 (1 standard drink = 0.6 oz pure alcohol)PHQ-2AnswerDate RecordedPHQ-2 ervnx2111Area Deprivation Index AnswerDate RecordedNational Score (1-100), lower number is lower risk65 02/20/2023State Score (1-10), lower number is lower kihg0333Data from: https://www.neighborhoodatlas.[facility].edu/. Last address used for pticypfkclk[address]/20/2023CommentsNoSex and Gender InformationValueDate RecordedSex Assigned at LdvglZfjzlj92/07/2021 1:45 PM EDT Legal XvzSyidnd17/02/2012 8:52 AM ESTGender QnqzycfnMlkwvu88/07/2021 1:45 PM EDT Sexual TmfzvilujbkMkywdyxw55/07/2021 1:45 PM EDT Last Filed Vital Signs Vital SignReadingTime TakenCommentsBlood Nlkelisa303/9209/20/2024 1:04 PM EST Jgocc112209/20/2024 1:04 PM MSYKjvmpyuouuc84.5 ??C (97.7 ??F)03/17/2021 9:30 AM EDTRespiratory Lifn003803/17/2021 9:30 AM EDTOxygen Jsthrgbeug48%02/20/2023 9:11 AM EDTInhaled Oxygen Concentration--Oeghga71.1 kg (145 lb 11.6 oz)09/20/2024 1:04 PM JGAMhrcco797.6 cm (5' 4.02 )02/01/2021 12:57 PM EDTBody Mass Index25 02/01/2021 12:57 PM EDT Plan of Treatment Health MaintenanceDue DateLast DoneCommentsDiabetic Foot Exam1969Dilated Retinal Exam1969Urine Albumin:Creatinine Ratio1969Cervical Cancer Elibaihzb58/26/1970Annual PCP Team Chronic Disease Visit1977Anxiety Zwbclrpuk18/26/1977Depression Udsqootcu08/26/1977LDL Ivpwpmvouni15/26/1977 Pneumococcal Vaccine: 50+ (1 of 2 - PCV)1978Shingrix Vaccine (1 of 2) 08/26/1978Mammogram Lvofvfgqm97/26/1999CT Vdsjsdersuvn80/26/2004Cologuard (FIT-DNA)05/27/20042049Jcijqcysqqy09/26/2004Colorectal Cancer Oujgylylq07/26/2004 Fecal Occult Blood05/27/20040600Lgxvmshxfgrhr23/26/2004RSV Vaccine (1 - Risk 50-74 years 1-dose series)2009Covid-19 Vaccine (3 - Pfizer risk series) /, 07/01/2021one Density Mwjkwiptv74/26/30897010/12/2011 Advance Directive Ffvrklclga90/01/2025Medicare Advantage Annual Wellness Visit 10/02/2024Influenza Vaccine (#1)/, 09/03/2018, 07/20/2018 (Patient/Parent/Guardian Counseled and Declines)FsP7V57611/01/2025, 01/08/2025, 4DTaP,Tdap,Td Vaccine (2 - Td or Tdap)/ Hepatitis C IunpqiskkQccwuzfcy40/29/2022, 03/29/2016, 11/12/2014, Additional history exists Procedures Procedure NamePriorityDate/TimeAssociated DiagnosisCommentsHEPATITIS C ANTIBODY IA WITH MWUOZMAINJWSZyxdxkh73/29/2022 2:07 PM EDT Elevated LFTs BMD BONE EOLSSOAPirulva54/11/2012 8:51 AM EST Rheumatoid arthritis Osteoporosis screening from Last 3 Months or Most Recently Relevant to Health Maintenance Results * HEP C AB IA W/CONF SCRN (12/28/2021 2:07 PM EDT)ComponentValueRef RangeTest MethodAnalysis TimePerformed AtPathologist SignatureHep C Antibody IANegative Lwntqtik85/30/2022 11:20 AM EDTCCLEVELAND CLINIC LABComment:The result suggests no evidence of active infection with Hepatitis C virus. Should recent infectionbe suspected, repeat testing may be considered 4-6 weeks after this draw.Specimen (Source)Anatomical Location / LateralityCollection Method / VolumeCollection TimeReceived TimeBloodBLOOD SPECIMEN / UnknownVenipuncture / Icxnwbh9012/28/2021 2:07 PM EDT12/28/2021 2:07 PM EDT Narrative Authorizing ProviderResult TypeResult StatusGeorgina Blanco MDLABORATORYFinal ResultPerforming OrganizationAddressCity/State/ZIP CodePhone Number [facility] [address] [place] [address], * BMD BONE DENSITY (10/12/2011 8:51 AM EST)ComponentValueRef RangeTest Method Analysis TimePerformed AtPathologist SignatureTranscription* * *Final Report* * * DATE OF EXAM: Oct 12 2011 ??8:51AM ?? LNB ?? 5711 ??- ??BD AP SPINE/HIP/FOREARM ??/ PROCEDURE REASON: RHEUMATOID ARTHRITIS * * * * Physician Interpretation * * * * RESULT: EXAM: DXA BONE DENSITOMETRY PATIENT DEMOGRAPHICS: ??Age: 51 years, Race: , Gender: Female SCANNER INFORMATION: Model of DXA scanner: ActuatedMedical Site of DXA scanner: [facility] Sites scanned: Lumbar Spine, Left Forearm and Left Hip ? Date of scan: 10/12/2011 HISTORY: RISK FACTORS FOR OSTEOPOROSIS AND ASSOCIATED FRACTURES REPORTED BY THIS PATIENT: Postmenopausal female History of fracture(clinical correlation needed to see if this was a fragility fracture) Reported rheumatoid arthritis Diabetes Asthma Past corticosteroid therapy CURRENT THERAPY: Calcium Supplements, Multivitamin TECHNICAL LIMITATIONS: Degenerative disease of the spine ? The spine is uninterpretable per ISCD guidelines since only one vertebra appropriate for interpretation This is first bone density test on this machine. A previous bone density may have been performed on a different DXA machine(new, updated model OR different location), thus no comparison can be made with past studies. RESULTS: Left Femoral Neck: 0.865 g/cm2, T-score -0.1 ? Left Total Hip: 1.000 g/cm2, T-score +0.3 Left Forearm: distal 1/3 of radius ??0.764 g/cm2, T-score +1.2 IMPRESSION: THE LOWEST T-SCORE IS -0.1 ?? The lowest T-score is used for diagnosis/impression Z-scores will be reported if <-1.0 or if > or = to+3.0 1) DIAGNOSIS (based on BMD alone): ??NORMAL BONE DENSITY Note that if the patient's prior bone density test was consistent with osteoporosis, the clinical diagnosis remains Osteoporosis. Note that regardless of bone mineral density measurement, a patient may be clinically diagnosed with osteoporosis if they ??have had a prior fragility fracture. Caution: Medical conditions other than osteoporosis may cause low bone density, such as osteomalacia or renal osteodystrophy. ?? Clinical correlation is necessary. 2) FRACTURE RISK (based on BMD alone): ?NOT INCREASED Caution: Fracture risk may be increased independent of BMD in patients with corticosteroid use, age greater than 65 years, or a history of prior fragility fracture. RECOMMENDATIONS: Note that some medical conditions may cause low bone density, such as osteomalacia, vitamin D deficiency, multiple myeloma, renal osteodystrophy, hyperparathyroidism, hypogonadism, certain endocrinologic conditions, inflammatory arthropathies, gastrointestinal diseases and malabsorption, and certain medications such as, but not limited to, systemic steroids, anticonvulsants, clinical correlation is necessary. Evaluation of vitamin D status is recommended All patients should receive the recommended daily allowance of calcium and vitamin D, as recommended by the NOF and clinically indicated. ?? Weight bearing exercises and strength training should be considered. Cessation of smoking and moderation of intake of alcohol, caffeine and carbonated beverages are recommended (for additional information please refer to NOF website at www.nof.org). Evaluation for secondary causes of bone loss is recommended in patients with a Z-score of less than -1.5 (see web-site for more details). Patients who have had a height loss of 1.5 inches or more since their peak height (tallest height), should be considered for evaluation of vertebral compression fractures by x-ray of the thoracic(with swimmers views) and lumbar spine. RECOMMENDATIONS FOR PHARMACOLOGIC THERAPY: National Osteoporosis Foundation (NOF) treatment recommendations (2008) Postmenopausal women and men age 50 and older presenting with the following should be treated: A hip or vertebral (clinical or morphometric) fracture T-score less than or equal to ??-2.5 at the femoral neck, total hip or spine after appropriate evaluation to exclude secondary causes Low bone mass (T-score between -1.0 and -2.5 at the femoral neck, total hip or spine) and 10 year probability of hip fracture greater than or equal to 3% or a 10 year probability of any major osteoporosis-related fracture greater than or equal to 20% based on the [place].- adapted WHO algorithm for FRAX(TM): ? www.maivs.ac.uk/FRAX/tool.jsp or The WHO Fracture Risk Assessment Tool at www.NOF.org PLEASE NOTE: ??THE DXA SCANNER USED FOR THIS PATIENT IS ??LISTED IN THE ABOVE DEMOGRAPHICS. ??THE TYPE OF SCANNER MUST BE ENTERED IN THE FRAX(TM) CALCULATOR ??TO CORRECT FOR DXA SCANNER VARIABILITY. ?? PLEASE NOTE FRAX(TM) + ??Does not apply to premenopausal patients + ??DOES NOT APPLY TO TREATED OR PREVIOUSLY TREATED PATIENTS within past 2 years, please review updates from website listed above. ALL RECOMMENDATIONS AND CALCULATIONS ARE TO BE CONSIDERED GUIDELINES AND SHOULD NOT REPLACE SOUND CLINICAL JUDGMENT - Adult patients being treated with corticosteroids should be protected from bone loss and fracture risk (see ACR guidelines), and bone density should be repeated at 1 year. Pharmacologic therapy may be necessary for consideration in high risk patients for the prevention and treatment of steroid induced bone loss and fragility fractures. Additional information on the new [place] [employer] 2010 Recommendations for the Prevention and Treatment of Glucocorticoid-Induced Osteoporosis are available through the Journal of Arthritis Care and Research Vol. 62, No.11, August 2010, pp 3014-1699. These changes may be revised, please refer to www.rheumatology.org for updated recommendations. Follow-up in 3 to 5 years, or as clinically indicated. ??Patients that are taking corticosteroids, are transplant recipients or have hyperparathyroidism should have annual follow-up. ??Follow-up scans should always be done on the same machine for accurate comparison. FOR MORE INFORMATION: [facility] for Osteoporosis and Metabolic Bone Disease: ??www.ccf.org/arthritis/osteo National Osteoporosis Foundation: ??www.nof.org International Society of Clinical Densitometry www.iscd.org Paper Sheeter: SANGITA Transcribe Date/Time: Oct 16 2011 ??8:08P Dictated by : PENNY BRUNSON MD This examination was interpreted and the report reviewed and electronically signed by: PENNY BRUNSON MD On Oct 16 2011 ??8:08PM DIVISION OF RADIOLOGYAnatomical RegionLateralityModalityOtherSpecimen (Source) Anatomical Location / LateralityCollection Method / VolumeCollection Time Received Time10/12/2011 8:51 AM EST Narrative Authorizing ProviderResult TypeResult StatusGeorgina DEXTER DENSITYFinal Result from Last 3 Months or Most Recently Relevant to Health Maintenance Insurance Care Teams Team MemberRelationshipSpecialtyStart DateEnd Alex Bales MD PCP - GeneralFamily Medicine01/25/21
--- OUTSIDE RECORDS SUMMARY | 2025-09-29 15:05 | XMS_ITS | Encounter Summary ---
Author Organization [facility] Address [address] [place] [address] Care Team Providers Care Financial Aid Advisor Name Role Phone Alex Bales MD Primary Care Provider [phone] Encounter Details DateTypeDepartmentCare Team (Latest Contact Info)Tpcnvppwiwf39/15/2025Travel Social History Tobacco UseTypesPacks/DayYears UsedDateSmoking Tobacco: Never Assessed CommentsUnknownSex and Gender InformationValueDate RecordedSex Assigned at Not on fileLegal QytLzsofd07/15/2023 6:52 PM EDTGender IdentityNot on fileSexual OrientationNot on filedocumented as of this encounter Plan of Treatment DateTypeDepartmentCare Team (Latest Contact Info)Stuslhiiuob70/30/2025 9:30 AM ESTTreatment [facility] [address] [place] [address] Cristal Jacobo, COPYRIGHT CLERK 10/06/2025 10:30 AM ESTTreatment [facility] [address] [place] [address] Cristal Jacobo, COPYRIGHT CLERK 11/05/2025 11:00 AM ESTOffice Visit [facility] [address] [place] [address] Trudy Collins MD [address] [place] [address] documented as of this encounter Visit Diagnoses Not on filedocumented in this encounter Care Teams Team MemberRelationshipSpecialtyStart DateEnd Date Alex Bales MD [address] [facility] [place] [address] PCP - GeneralFamily Utecfmaa82/9/24documented as of this encounter
--- OUTSIDE RECORDS SUMMARY | 2025-09-29 15:05 | XMS_ITS | Encounter Summary ---
Author Organization [facility] Address [address] [facility] [place] [address] Care Team Providers Care Plating And Point Assembly Supervisor Name Role Phone Alex Bales MD Primary Care Provider [phone] Encounter Details DateTypeDepartmentCare Team (Latest Contact Info)Rbuyuustssm17/15/2025Bamboo flowsheet [facility] [address] [facility] [address] [place] [address] Geсветлана, Cristal, TRUCK HEADLIGHT ASSEMBLER Social History Tobacco UseTypesPacks/DayYears UsedDateSmoking Tobacco: Never Assessed CommentsUnknownSex and Gender InformationValueDate RecordedSex Assigned at Not on fileLegal GccPwcgma48/15/2023 6:52 PM EDTGender IdentityNot on fileSexual OrientationNot on filedocumented as of this encounter Plan of Treatment DateTypeDepartmentCare Team (Latest Contact Info)Uqlbecrzvut78/30/2025 9:30 AM ESTTreatment [facility] [address] [place] [address] GeCristal sotomayor, TRUCK HEADLIGHT ASSEMBLER 10/06/2025 10:30 AM ESTTreatment [facility] [address] [place] [address] GezoDeshawnie, TRUCK HEADLIGHT ASSEMBLER 11/05/2025 11:00 AM ESTOffice Visit [facility] [place] [facility] [address] [place] [address] Trudy Collins MD [address] [place] [address] documented as of this encounter Visit Diagnoses Not on filedocumented in this encounter Care Teams Team MemberRelationshipSpecialtyStart DateEnd Date Alex Bales MD [address] [place] [address] PCP - GeneralFamily Bvcbzmkh40/9/24documented as of this encounter
--- OUTSIDE RECORDS SUMMARY | 2025-09-29 15:05 | XMS_ITS | Clinical Summary ---
Author Organization [facility] Healthcare Address [address] [place] [address] Care Team Providers Care Matrix Plater Name Role Phone Alex Bales MD Primary Care Provider [phone] Allergies Active AllergyReactionsCriticalityNoted DateCommentsCiprofloxacinHives,Rash, KbntndjAcwmxu03/24/7618OjqbreqhtnpdkFlaeaji03/22/2024IndomethacinRashLow 12/06/2002 (Indocin) extremely high temperature elevation Eimkgmcndr50/22/2019 Other Reaction(s): Other (See Comments) Cough XrblnwnumnlRvapile45/22/2024Oxycodone-KghnioevzottcNdkxkdw59/22/2024enicillins Rash,MnbdgysEeo34/07/2003 rash PropofolGI shyjkkxgptl98/17/2024 Problems awakening and GI upset with general anesthesia XlhdbqdftyzuYbsfg29/07/2003 pt. not sure Wound Dressing GaeeallzIbbpGpc05/22/2019 Medications MedicationSigDispense QuantityRefillsLast FilledStart DateEnd DateStatus ADALIMUMAB SC Inject 40 mg under the skin Every 3 weeksActive albuterol HFA 90 mcg/act inhaler Inhale 2 puffs every 6 (six) hours if neededActive cloNIDine (Catapres) 0.1 MG tablet Take 0.1 mg by mouth in the morning and 0.1 mg before bedtime.Active gabapentin (Neurontin) 800 MG tablet 05/18/2024ctive True Metrix Blood Glucose Test test strip 1 each by Other route in the morning and 1 each in the evening and 1 each before bedtime.01/06/2024ctive irbesartan (Avapro) 150 MG tablet Take 150 mg by mouth in the morning.Active TRUEplus Lancets 33G misc Inject 1 each under the skin in the morning and 1 each in the evening and 1 each before bedtime.4Active leflunomide (Arava) 20 MG tablet Take 1 tablet by mouth Daily4Active methotrexate 250 MG/10ML injection 05/17/2024ctive metoprolol succinate XL (Toprol-XL) 50 MG 24 hr tablet Take 50 mg by mouth Daily4Active simvastatin (Zocor) 20 MG tablet Take 1 tablet by mouth at bedtimeActive sulfaSALAzine (Azulfidine) 500 MG EC tablet Take 500 mg by mouth in the morning and 500 mg in the evening and 500 mg before bedtime.Active cholecalciferol (Vitamin D-3) 50 MCG (1999 UT) capsule Take 1 capsule by mouth in the morning.Active levothyroxine (Synthroid, Levoxyl) 200 MCG tablet Indications:Postoperative hypothyroidismTake 1 tablet (200 mcg) by mouth in the morning. Take before meals. 90 tablet 4Active empagliflozin (Jardiance) 25 MG Indications:Type 2 diabetes mellitus with hyperglycemia, with long-term current use of insulin ([facility])Take 1 tablet (25 mg) by mouth Daily 90 tablet 5Active insulin glargine (Lantus SoloStar) 100 UNIT/ML pen Indications:Type 2 diabetes mellitus with hyperglycemia, with long-term current use of insulin ([facility])Inject 50 Units under the skin in the morning and 50 Units before bedtime. 60 mL 5Active insulin aspart (NovoLOG FLEXPEN) 100 UNIT/ML pen Indications:Type 2 diabetes mellitus with hyperglycemia, with long-term current use of insulin ([facility])INJECT 12-15-18 WITH EACH MEAL ACCORDING TO MEAL SIZE PLUS SLIDING SCALE #2( EXPECT UP TO 70 TOTAL UNITS DAILY) 75 mL 5Active Encounters DateTypeDepartmentCare BsihVwqnrdfpadq46/15/2025 10:30 AM ESTTreatment [facility] [address] [facility] [address] [place] [address] Cristal Jacobo, NOM[facility] Radiculopathy, lumbar region (Primary Dx)5Bamboo flowsheet [facility] [address] [address] [place] [address] Gezo, Cristal, [employer]ER 09/15/20255112Qojguz26/08/2025 10:30 AM ESTTreatment [facility] [address] [place] [address] Gezo, Cristal, [employer] Radiculopathy, lumbar region (Primary Dx)09/08/2025amboo flowsheet [facility] [address] [place] [address] Gezo, Cristal, [employer] IN[employer]ER 09/08/20255137Fvewrw33/01/2025 10:30 AM ESTTreatment [facility] [address] [place] [address] Gezo, Cristal, [employer]ER Radiculopathy, lumbar region (Primary Dx)09/01/2025amboo flowsheet [facility] [address] [facility] [address] [place] [address] Gezo Cristal, [employer]ER 09/01/20250852Crbyyi71/24/2025 10:30 AM ESTTreatment [facility] [address] [facility] [address] [place] [address] Geсветлана, Cristal, [employer]ER Radiculopathy, lumbar region (Primary Dx)08/25/2025amboo flowsheet [facility] [address] [facility] [address] [place] [address] Gezo Cristal, [employer] INST[employer]ER 08/25/20258273Qmasie89/14/2025Plan of Care Documentation [facility] [address] [place] [address] 08/14/2025 10:00 AM ESTEvaluation [facility] [address] [place] [address] Bee Jimenez, PT Radiculopathy, lumbar region (Primary Dx)08/14/2025amboo flowsheet [facility] [address] [facility] [address] [place] [address] Bee Jimenez, PT 08/14/20257493Ejuvfv88/05/2025 11:00 AM ESTOffice Visit [facility] [address] [place] [address] Trudy Collins MD Type 2 diabetes mellitus with hyperglycemia, with long-term current use of insulin (HCC) (Primary Dx); Primary hypertension; Insulin long-term use (HCC); Hyperlipemia, mixed; Encounter for dietary consultation; Vitamin D deficiency; Postoperative zzpbaghhvfpdqt33/05/2025Refill [facility] [address] [place] [address] Trudy Collins MD Type 2 diabetes mellitus with hyperglycemia, with long-term current use of insulin (HCC)08/06/2025amboo flowsheet [facility] [address] [place] [address] Trudy Collins MD from Last 3 Months Immunizations ImmunizationAdministration DatesNext DueInfluenza, injectable, MDCK, preservative free, uhlnjugegagg05/03/2018Influenza, injectable, quadrivalent, preservative free05/30/2020Tdap06/17/2024 Family History Medical HistoryRelationNameCommentsAsthmaFatherRelationNameStatusCommentsBrother x 2AliveDaughterx 1AliveFatherDeceasedMotherDeceasedSisterx 1DeceasedSonx 1Alive Social History Tobacco UseTypesPacks/DayYears UsedDateSmoking Tobacco: Never Assessed CommentsUnknownSex and Gender InformationValueDate RecordedSex Assigned at Not on fileLegal IepCzadkb49/15/2023 6:52 PM EDTGender IdentityNot on fileSexual OrientationNot on file Last Filed Vital Signs Vital SignReadingTime TakenCommentsBlood Ifsiayzs250/8607 11:46 AM EDT Jmlfc858908/06/2025 11:05 AM ESTTemperature--Respiratory Cqoq116310/06/2024 11:05 AM ESTOxygen Ustcxgxskw14%08/06/2025 11:05 AM ESTInhaled Oxygen Concentration-- Ajvxdq66.9 kg (132 lb)08/06/2025 11:05 AM NQMOgdltn744.6 cm (5' 4 )08/06/2025 11:05 AM ESTBody Mass Index22.6608/06/2025 11:05 AM EST Plan of Treatment DateTypeDepartmentCare Team (Latest Contact Info)Voyolvuckmi86/30/2025 9:30 AM ESTTreatment [facility] [address] [place] [address] Cristal Jacobo, [employer] IN[employer]ER 10/06/2025 10:30 AM ESTTreatment [facility] [address] [place] [address] Cristal Jacobo, [employer] INST[employer]ER 11/05/2025 11:00 AM ESTOffice Visit [facility] [address] [place] [address] Trudy Collins MD [address] [place] [address] Health MaintenanceDue DateLast DoneCommentsCT Rediaclyipfc1959Colonoscopy 1959Colorectal Cancer Dueomyhkh1959FIT-DNA1959FIT1959 FOBT1960 1786Mzdolvgrunsdq25/26/7519Fhqblzxfm84/26/1999Pneumococcal Vaccine: 65+ Years (1 of 1 - PCV)2009Influenza Vaccine (#1), 09/03/2018 Procedures Procedure NamePriorityDate/TimeAssociated DiagnosisCommentsPOCT GLYCOSYLATED HEMOGLOBIN (HGB A1C)Ptpdgvr3908/06/2025 11:07 AM EST Type 2 diabetes mellitus with hyperglycemia, with long-term current use of insulin (HCC) POCT WJLDZJLTiyzgxe49/05/2025 11:07 AM EST Type 2 diabetes mellitus with hyperglycemia, with long-term current use of insulin (HCC) from Last 3 Months Results * POCT glycosylated hemoglobin (Hb A1C) docked device (08/06/2025 11:07 AM EST) ComponentValueRef RangeTest MethodAnalysis TimePerformed AtPathologist SignatureHemoglobin A1C13.6Specimen (Source)Anatomical Location / Laterality Collection Method / VolumeCollection TimeReceived TimeBloodVenous blood specimen / Iwxhifs0108/06/2025 11:07 AM EST Narrative Authorizing ProviderResult TypeResult StatusMountain Community Medical ServicesOINT OF CARE TEST ENTER/EDIT ORDERABLESFinal Result * POCT glucose manually resulted (08/06/2025 11:07 AM EST)ComponentValueRef RangeTest MethodAnalysis TimePerformed AtPathologist SignatureGlucose Blood, OOL107hz/dLSpecimen (Source)Anatomical Location / LateralityCollection Method / VolumeCollection TimeReceived TimeBloodCapillary blood specimen / Unknown 08/06/2025 11:07 AM EST Narrative Authorizing ProviderResult TypeResult [facility] MDPOINT OF CARE TEST ENTER/EDIT ORDERABLESFinal Result from Last 3 Months Insurance Care Teams Team MemberRelationshipSpecialtyStart DateEnd Alex Bales MD [address] [place] [address] PCP - GeneralFamily Elfpmfjd82/9/24
--- NOTE | 2025-09-29 15:09 | XR_ITS ---
[facility] [place] [id number] Patient Name: ELSA CATALAN MRN: [id number] date: 1960 Sex: F Assigned Patient Location: [facility] Current Patient Location: Accession/Order Number: [id number] Exam Date: 09/29/2025 15:18 Report Date: 09/30/2025 00:51 At the request of: TAWANDA COOK Procedure: XR shoulder RT min 2V XR shoulder RT min 2V 09/29/2025 3:24 PM SIGNS AND SYMPTOMS: ^Right Shoulder Pain, fall PROTOCOL: 3 views of the right shoulder COMPARISON: None FINDINGS: The glenohumeral joint and acromioclavicular joint are preserved. There is no fracture or dislocation. The visualized right hemithorax is grossly intact. There is a calcified granuloma in the right lung parenchyma. XR/XR shoulder RT min 2V IMPRESSION: No acute bony injury. No significant degenerative change. Impression dictated by: Jayson Ramírez M.D. 09/30/2025 12:51 AM Dictation Location: [employer] Electronically authenticated by: [id number] Y Date: 09/30/2025 00:51
--- NOTE | 2025-09-29 15:09 | XR_ITS ---
[facility] [place] [id number] Patient Name: ELSA CATALAN MRN: [id number] date: 1960 Sex: F Assigned Patient Location: [facility] Current Patient Location: Accession/Order Number: [id number] Exam Date: 09/29/2025 15:18 Report Date: 09/30/2025 00:53 At the request of: TAWANDA COOK Procedure: XR lumbar spine 2-3V XR lumbar spine 2-3V 09/29/2025 3:24 PM SIGNS AND SYMPTOMS: Fall, low back pain radiating down right leg PROTOCOLS: Frontal and lateral radiographs of the lumbar spine COMPARISON: 03/30/2021 FINDINGS: The alignment, development and bony structures are normal. There is no fracture or destructive lesion. There is severe disc height loss at L5-S1 similar to the prior exam. Degenerative changes are noted in the sacroiliac joints. Degenerative changes are noted in the facets of the lower lumbar spine, greatest at L4-L5 and L5-S1. Atherosclerotic changes are noted in the abdominal aorta. XR/XR lumbar spine 2-3V IMPRESSION: No fracture or subluxation. Multilevel degenerative changes noted, greatest at L5-S1 similar to the prior exam. Impression dictated by: Jayson Ramírez M.D. 09/30/2025 12:53 AM Dictation Location: [place] [address] Electronically authenticated by: [id number] Y Date: 09/30/2025 00:53
== END 2025-09-29 14:59 | disposition home or self-care (01) ==
LOC: RAD 15:01
PROVIDERS: PCP Nurse Practitioner Family; Visit Provider Nurse Practitioner Family
DX: M54.9 Dorsalgia, unspecified (principal); M25.511 Pain in right shoulder; M51.369 Other intervertebral disc degeneration, lumbar region without mention of lumbar back pain or lower extremity pain
CPT/HCPCS: 72100; 73030